=== PATIENT | male | born 1955 | race Caucasian/White ===

== ENCOUNTER 2018-06-14 12:27 | Emergency (ER) | payer MEDICAID, SELFPAY ==
[2018-06-14] VITALS (35 sets, daily range): BP systolic 95–151; BP diastolic 67–99; PULSE 90–121; RESP 9–32; TEMP 35.9; O2SAT 96–100
[2018-06-14] MEDS: Normal Saline 250 ML IV (12:52)
[2018-06-14 13:06] LABS: Abs Immature Grans 0.04 k/cumm (0.0-0.09); Absolute Basophil Count 0.07 k/cumm (0.0-0.2); Absolute Eosinophil Count 0.58 k/cumm (0.0-0.7); Absolute Lymphocyte Count 2.08 k/cumm (1.2-3.4); Absolute Monocyte Count 0.96 k/cumm (0.11-0.7); Basophils % 0.6; Eosinophils % 4.8; HCT 43.2 % (40.0-50.0); HGB 14.8 g/dL (13.5-17.5); Immature Grans % 0.3; Lymphocytes % 17.3; Mean Corp. HGB Concentration 34.3 g/dL (32.0-36.0); Mean Corpuscular Hemoglobin 31.3 pg (27.0-33.0); Mean Corpuscular Volume 91.3 fL (80-95); Mean Platelet Volume 9.2 fL (8.0-11.0); Platelet Count 250 x1000/uL (130-400); RBC 4.73 m/cumm (4.50-6.00); RBC Distribution Width 14.2 % (11.8-14.1); White Blood Cell Count 12.03 k/cumm (4.4-10.8)
[2018-06-14 13:18] LABS: Lipase 62 U/L (73-393)
--- NOTE | 2018-06-14 13:26 | DI.RAD_ITS ---
SYMPTOMS/DIAGNOSIS: PLEURITIC PAIN, SHORTNESS OF BREATH, ? PNEUMOTHORAX PORTABLE AP CHEST: Comparison 10/20/16. The heart size and pulmonary vasculature are within normal limits. The lungs are clear and well expanded. No effusions or pneumothoraces are identified. The bones are intact. IMPRESSION: No acute pulmonary process. The findings were discussed with Dr. Aranza Loyd of the emergency department on the date of the examination.
[2018-06-14] MEDS: LORazepam 2 MG/ML VIAL 1 MG IVP (13:36)
[2018-06-14] MEDS: Normal Saline 1,000 ML 1000 ML IV (13:40)
[2018-06-14 13:59] LABS: PTT Activated 22.5 sec (21.0-31.4); Prothrombin Time 10.2 sec (9.3-10.8)
[2018-06-14 14:06] LABS: ETHANOL BLOOD < 3.0 mg/dL (<3)
[2018-06-14 14:07] LABS: D-Dimer 692 ng/mlFEU (<500)
--- NOTE | 2018-06-14 14:07 | W.ED.GENAD ---
Discharge Plan Disposition Patient Disposition: [facility] Condition: Fair Discharge Details Chief Complaint: Chest Pain Primary Care Provider: Tammy Farley ED Provider: Meg Salcido Home Meds and New Rx's Prescriptions: No Action oxycodone 5 MG tablet 5 mg PO BID PRNQty: 60 RF: 0 ipratropium-albuterol 3 ML solution for nebulization 1 unit IN Q4H PRN (Reason: shortness) RF: 0 meloxicam 15 mg Tablet 15 mg PO DAILY RF: 0 bisacodyl 10 mg Suppository 1 supp DC PRNRF: 0 ranitidine HCl 150 mg Tablet 1 tab PO HS RF: 0 albuterol sulfate [ProAir HFA] 90 mcg/actuation Hfa Aerosol Inhaler 2 puff Inhalation Q4H PRNRF: 0 docusate sodium [Promolaxin] 100 mg Tablet 1 tab PO BID RF: 0 budesonide-formoterol [Symbicort] 160-4.5 mcg/actuation Hfa Aerosol Inhaler 2 puff Inhalation BID RF: 0 citalopram 20 mg Tablet 1 tab PO DAILY RF: 0 trazodone 100 mg Tablet 1 tab PO HS RF: 0 lisinopril 10 mg Tablet 1 tab PO DAILY RF: 0 omeprazole 20 mg Capsule,Delayed Release(Dr/Ec) 1 tab PO DAILY RF: 0 aspirin 81 mg Tablet,Chewable 1 tab PO DAILY RF: 0 loratadine 10 mg Tablet 1 tab PO DAILY RF: 0 oxycodone 5 mg Tablet 1 tab PO DAILY RF: 0 bupropion HCl [Wellbutrin XL] 300 mg Tablet Extended Release 24 Hr 1 tab PO DAILY RF: 0 ugsfcqcintvw-andf-cnmcq acid [Certavite-Antioxidant] 18-400 mg-mcg Tablet 1 tab PO DAILY RF: 0 buprenorphine HCl 300 mcg Film RF: 0 Discharge Data Discharge Date/Time-TO BE ENTERED AT DEPARTURE: 06/14/18 16:41 Medical Decision Making 63yo M who presents to the ED w/ a c/o left-sided chest pain and left upper quadrant abdominal pain since 1130 today. States the pain is sharp, constant and described as pleuritic. Also admits to dizziness. Denies nausea or vomiting. 1231 --EKG notes a rate of 112, sinus tachycardia, no acute ST elevation or depression, QTc 450, QRS 94. On my evaluation, patient appears diaphoretic, uncomfortable with significant tenderness to palpation in his left upper quadrant of abdomen. He has diminished breath sounds in the left chest. Stat chest x-ray ordered which was negative for pneumothorax. Differential diagnosis includes dissection, pancreatitis, alcohol withdrawal, acute abdominal process. We will give a dose of morphine, Ativan, bolus IV fluids patient admitted to alcohol use 2 days ago and does have a history of pancreatitis but his lipase is negative. Will send for stat CT chest/abdomen/pelvis. Remainder of labs pending. 1320 --patient improved after 8 mg morphine. 1520 --discussed with radiologist there is a moderate perisplenic and perihepatic hematoma/hemorrhage with an area of high density noted in the anterior aspect of the spleen concerning for active bleeding. Patient denied any history of trauma. Patient appears much more comfortable. Heart rate 95, blood pressure 119/68. His abdomen is still significantly tender and rigid with guarding. Will order 2 units of uncrossed match blood. Will call [facility] for transfer. Labs reviewed and note hemoglobin of 14. White blood cell count 12. Lipase 62. LFTs negative. Anion gap 14.4. Magnesium 1.4. INR 1. Platelets 250. D-dimer 692. CT chest negative for acute abnormality. D-dimer elevation may be age-related, and CT timing may not have been appropriate for PE, however we do have a source of patient's pain and do not likely suspect acute PE at this time. 1600 --discussed with [facility] Trauma Dr. Sargent -accepts patient for transfer to ED. They will discuss with the ED. Lloyd with plan for transfer. Will send with 1 unit PRBC. HPI General Mode of arrival: EMS. Date/Time Provider Initiated Documentation: 06/14/18 12:38. Limitations to Documentation: no limitations. Information obtained by: patient. HPI Narrative: Patient is a 63-year-old male with history of COPD, coronary artery disease who is a resident of the [facility] for the past 3 years who presents with left chest and left upper quadrant pain since 1130 this morning. States the pain is constant, sharp and worse with deep breath. Admits to shortness of breath and dizziness. Denies any fever or cough, nausea or vomiting. Admits to decreased p.o. intake today. He states he is normally ambulatory without a cane and denies any recent surgery, recent travel, leg pain or swelling. Past medical history: COPD, CAD Surgical history: Tonsillectomy, 2 cardiac stents Social history: Smokes tobacco, intermittent alcohol use, last alcohol use 2 days ago, denies drug use Medications: Albuterol, aspirin, Symbicort, Wellbutrin, Celexa, trazodone, Zantac, oxycodone, lisinopril, meloxicam, Prilosec Allergies: Carbamazepine, simvastatin Related Data Home Medications Medication Instructions Recorded Confirmed ipratropium-albuterol 1 unit IN Q4H PRN /05/0206/14/18 oxycodone 5 mg PO BID PRN #60 tab 05/10/18 06/14/18 albuterol sulfate [ProAir HFA] 2 puff INHALATION Q4H PRN 06/14/18 06/14/18 aspirin 1 tab PO DAILY 06/14/18 06/14/18 bisacodyl 1 supp DC PRN 06/14/18 budesonide-formoterol [Symbicort] 2 puff INHALATION BID 06/14/18 06/14/18 buprenorphine HCl 06/14/18 bupropion HCl [Wellbutrin XL] 1 tab PO DAILY 06/14/18 06/14/18 citalopram 1 tab PO DAILY 06/14/18 06/14/18 docusate sodium [Promolaxin] 1 tab PO BID 06/14/18 06/14/18 lisinopril 1 tab PO DAILY 06/14/18 06/14/18 loratadine 1 tab PO DAILY 06/14/18 06/14/18 meloxicam 15 mg PO DAILY 06/14/18 06/14/18 tecqyhtufqzi-xrpt-fhrkl acid 1 tab PO DAILY 06/14/18 06/14/18 [Certavite-Antioxidant] omeprazole 1 tab PO DAILY 06/14/18 06/14/18 oxycodone 1 tab PO DAILY 06/14/18 06/14/18 ranitidine HCl 1 tab PO HS 06/14/18 06/14/18 trazodone 1 tab PO HS 06/14/18 06/14/18 Allergies Allergy/AdvReac Type Severity Reaction Status Date / Time carbamazepine Allergy Intermediate Hives Unverified 10/09/16 15:26 simvastatin Allergy Unverified 10/09/16 15:26 General Stated Complaint: Chest Pain GEMA: 2 Review of Systems Review of Systems All systems reviewed & are unremarkable except as noted in HPI and below Constitutional Denies chills, Denies excessive sweating, Denies fatigue, Denies fever(s), Reports poor appetite, Denies weakness and Denies weight loss Eyes Reports system reviewed and no additional complaints, except as docu and Denies blurry vision ENT Denies vertigo, Denies dizziness, Denies otalgia, Denies nasal congestion, Denies sore throat and Denies throat swelling Cardiovascular Reports chest pain, Denies syncope, Denies rapid heart rate and Reports dyspnea Respiratory Denies cough and Reports dyspnea Gastrointestinal Reports abdominal pain, Denies diarrhea and Denies vomiting Genitourinary Denies hematuria, Denies dysuria and Denies flank pain Musculoskeletal Denies back pain and Denies joint swelling Integumentary/Breasts Denies lesions and Denies rash Neurologic Denies behavioral changes, Denies confusion, Denies vertigo, Denies dizziness, Denies syncope and Denies weakness Psychiatric Denies behavioral changes, Denies confusion and Denies depression Endocrine Denies excessive sweating and Denies fatigue Hematologic/Lymphatic Denies easy bruising and Denies lymphadenopathy Allergic/Immunologic Denies throat swelling [facility] Social History Smoking/Tobacco Use Status: Current every day Surgical History Rotator Cuff Repair (06/30/16) Exam Const General: cooperative, acute distress moderate and ill appearing Orientation: alert, awake and oriented x3 HENMT Head: normal to inspection Ears: hearing grossly normal bilaterally, external ears normal and TM's normal bilaterally General nose exam: external nose normal Face and sinus: normal facial exam Mouth: oral mucosae normal Teeth and gingiva: dentition normal Throat: posterior oropharynx normal Eyes General: appearance normal, both eyes and all related structures Eyelids: eyelids normal Pupils: PERRL EOM: EOM intact bilaterally Neck Neck: normal visual inspection Lymphatic: no lymphadenopathy noted Chest Chest: normal inspection of the chest Resp Auscultation: diminished lung sounds (Left chest), no rhonchi and no wheezes Cardio Rate: regular rate Rhythm: regular rhythm GI Inspection: normal to inspection and other (No trauma) Palpation: soft, firm, guarding, no hepatosplenomegaly, no masses and tender (Severe tenderness diffusely but worse in the left upper quadrant) Auscultation: hypoactive bowel sounds Back/Spine/Pelvis Back: no CVA tenderness Skin General skin exam: no rashes or lesions noted Neuro General: alert and awake Cognition: normal cognition Speech: speech normal Gait: normal gait Motor: muscle tone normal throughout Sensory Exam: no sensory deficits noted Extrem General: normal to inspection, full ROM, normal capillary refill and no edema Psych Appearance: grossly normal Mental Status: mental status grossly normal Speech and Movement: speech and movement normal Affect: normal affect Thought Process: normal Course Vital Signs Temperature 96.6 F L 06/14/18 12:33 Pulse 109 H 06/14/18 12:33 Respiratory Rate 18 06/14/18 12:33 Blood Pressure 151/99 H 06/14/18 12:33 Pulse Oximetry 97 06/14/18 12:33 Temperature 96.6 F L 06/14/18 12:33 Temperature Source Skin 06/14/18 12:33 Pulse 109 H 06/14/18 12:33 Respiratory Rate 18 06/14/18 12:33 Respiratory Effort Labored 06/14/18 12:54 Respiratory Depth Shallow 06/14/18 12:54 Respiratory Pattern Tachypnea 06/14/18 12:54 Blood Pressure 151/99 H 06/14/18 12:33 Blood Pressure Position Sitting 06/14/18 12:33 Pulse Oximetry 97 06/14/18 12:33 Oxygen Delivery Method Room Air 06/14/18 12:33 Oxygen Flow Rate 0 06/14/18 12:33 Pain Level 10 06/14/18 12:54 Lab/Test Results Lab/Test Results: Laboratory Tests Range/Units 06/14/18 06/14/18 06/14/18 12:45 12:45 12:45 WBC (4.4-10.8) k/cumm 12.03 H RBC (4.50-6.00) m/cumm 4.73 Hgb (13.5-17.5) g/dL 14.8 Hct (40.0-50.0) % 43.2 MCV (80-95) fL 91.3 MCH (27.0-33.0) pg 31.3 MCHC (32.0-36.0) g/dL 34.3 RDW (11.8-14.1) % 14.2 H Plt Count (130-400) x1000/uL 250 MPV (8.0-11.0) fL 9.2 Immature Gran % 0.3 Neutrophils % 69.0 Lymphocytes % 17.3 Monocytes % 8.0 Eosinophils % 4.8 Basophils % 0.6 Absolute Neutrophils (1.2-6.7) k/cumm 8.30 H Absolute Lymphocytes (1.2-3.4) k/cumm 2.08 Absolute Monocytes (0.11-0.7) k/cumm 0.96 H Absolute Eosinophils (0.0-0.7) k/cumm 0.58 Absolute Basophils (0.0-0.2) k/cumm 0.07 PT Cancelled INR Cancelled APTT Cancelled D-Dimer Cancelled Lipase (73-393) U/L 62 L Ethyl Alcohol (<3) mg/dL Range/Units 06/14/18 06/14/18 13:29 13:29 WBC (4.4-10.8) k/cumm RBC (4.50-6.00) m/cumm Hgb (13.5-17.5) g/dL Hct (40.0-50.0) % MCV (80-95) fL MCH (27.0-33.0) pg MCHC (32.0-36.0) g/dL RDW (11.8-14.1) % Plt Count (130-400) x1000/uL MPV (8.0-11.0) fL Immature Gran % Neutrophils % Lymphocytes % Monocytes % Eosinophils % Basophils % Absolute Neutrophils (1.2-6.7) k/cumm Absolute Lymphocytes (1.2-3.4) k/cumm Absolute Monocytes (0.11-0.7) k/cumm Absolute Eosinophils (0.0-0.7) k/cumm Absolute Basophils (0.0-0.2) k/cumm PT 10.2 INR 1.0 APTT 22.5 D-Dimer Lipase (73-393) U/L Ethyl Alcohol (<3) mg/dL < 3.0
--- NOTE | 2018-06-14 14:10 | ED.GENADUL_ITS ---
Discharge Plan Disposition Patient Disposition: [facility] Condition: Fair Discharge Details Chief Complaint: Chest Pain Primary Care Provider: Tammy Farley ED Provider: Meg Salcido Home Meds and New Rx's Prescriptions: No Action oxycodone 5 MG tablet 5 mg PO BID PRNQty: 60 RF: 0 ipratropium-albuterol 3 ML solution for nebulization 1 unit IN Q4H PRN (Reason: shortness) RF: 0 meloxicam 15 mg Tablet 15 mg PO DAILY RF: 0 bisacodyl 10 mg Suppository 1 supp CA PRNRF: 0 ranitidine HCl 150 mg Tablet 1 tab PO HS RF: 0 albuterol sulfate [ProAir HFA] 90 mcg/actuation Hfa Aerosol Inhaler 2 puff Inhalation Q4H PRNRF: 0 docusate sodium [Promolaxin] 100 mg Tablet 1 tab PO BID RF: 0 budesonide-formoterol [Symbicort] 160-4.5 mcg/actuation Hfa Aerosol Inhaler 2 puff Inhalation BID RF: 0 citalopram 20 mg Tablet 1 tab PO DAILY RF: 0 trazodone 100 mg Tablet 1 tab PO HS RF: 0 lisinopril 10 mg Tablet 1 tab PO DAILY RF: 0 omeprazole 20 mg Capsule,Delayed Release(Dr/Ec) 1 tab PO DAILY RF: 0 aspirin 81 mg Tablet,Chewable 1 tab PO DAILY RF: 0 loratadine 10 mg Tablet 1 tab PO DAILY RF: 0 oxycodone 5 mg Tablet 1 tab PO DAILY RF: 0 bupropion HCl [Wellbutrin XL] 300 mg Tablet Extended Release 24 Hr 1 tab PO DAILY RF: 0 znxblqkjkfdo-olae-yciyz acid [Certavite-Antioxidant] 18-400 mg-mcg Tablet 1 tab PO DAILY RF: 0 buprenorphine HCl 300 mcg Film RF: 0 Discharge Data Discharge Date/Time-TO BE ENTERED AT DEPARTURE: 06/14/18 16:41 Medical Decision Making 63yo M who presents to the ED w/ a c/o left-sided chest pain and left upper quadrant abdominal pain since 1130 today. States the pain is sharp, constant and described as pleuritic. Also admits to dizziness. Denies nausea or vomiting. 1231 --EKG notes a rate of 112, sinus tachycardia, no acute ST elevation or depression, QTc 450, QRS 94. On my evaluation, patient appears diaphoretic, uncomfortable with significant tenderness to palpation in his left upper quadrant of abdomen. He has diminished breath sounds in the left chest. Stat chest x-ray ordered which was negative for pneumothorax. Differential diagnosis includes dissection, pancreatitis, alcohol withdrawal, acute abdominal process. We will give a dose of morphine, Ativan, bolus IV fluids patient admitted to alcohol use 2 days ago and does have a history of pancreatitis but his lipase is negative. Will send for stat CT chest/abdomen/pelvis. Remainder of labs pending. 1320 --patient improved after 8 mg morphine. 1520 --discussed with radiologist there is a moderate perisplenic and perihepatic hematoma/hemorrhage with an area of high density noted in the anterior aspect of the spleen concerning for active bleeding. Patient denied any history of trauma. Patient appears much more comfortable. Heart rate 95, blood pressure 119/68. His abdomen is still significantly tender and rigid with guarding. Will order 2 units of uncrossed match blood. Will call [facility] for transfer. Labs reviewed and note hemoglobin of 14. White blood cell count 12. Lipase 62. LFTs negative. Anion gap 14.4. Magnesium 1.4. INR 1. Platelets 250. D- dimer 692. CT chest negative for acute abnormality. D-dimer elevation may be age-related, and CT timing may not have been appropriate for PE, however we do have a source of patient's pain and do not likely suspect acute PE at this time. 1600 --discussed with [facility] Trauma Dr. Sargent -accepts patient for transfer to ED. They will discuss with the ED. Lloyd with plan for transfer. Will send with 1 unit PRBC. HPI General Mode of arrival: EMS . Date/Time Provider Initiated Documentation: 06/14/18 12:38 . Limitations to Documentation: no limitations . Information obtained by: patient . HPI Narrative: Patient is a 63-year-old male with history of COPD, coronary artery disease who is a resident of the [facility] for the past 3 years who presents with left chest and left upper quadrant pain since 1130 this morning. States the pain is constant, sharp and worse with deep breath. Admits to shortness of breath and dizziness. Denies any fever or cough, nausea or vomiting. Admits to decreased p.o. intake today. He states he is normally ambulatory without a cane and denies any recent surgery, recent travel, leg pain or swelling. Past medical history: COPD, CAD Surgical history: Tonsillectomy, 2 cardiac stents Social history: Smokes tobacco, intermittent alcohol use, last alcohol use 2 days ago, denies drug use Medications: Albuterol, aspirin, Symbicort, Wellbutrin, Celexa, trazodone, Zantac, oxycodone, lisinopril, meloxicam, Prilosec Allergies: Carbamazepine, simvastatin Related Data Home Medications Medication Instructions Recorded Confirmed ipratropium-albuterol 1 unit IN Q4H PRN /05/0206/14/18 oxycodone 5 mg PO BID PRN #60 tab 05/10/18 06/14/18 albuterol sulfate [ProAir HFA] 2 puff INHALATION Q4H PRN 06/14/18 06/14/18 aspirin 1 tab PO DAILY 06/14/18 06/14/18 bisacodyl 1 supp CA PRN 06/14/18 budesonide-formoterol [Symbicort] 2 puff INHALATION BID 06/14/18 06/14/18 buprenorphine HCl 06/14/18 bupropion HCl [Wellbutrin XL] 1 tab PO DAILY 06/14/18 06/14/18 citalopram 1 tab PO DAILY 06/14/18 06/14/18 docusate sodium [Promolaxin] 1 tab PO BID 06/14/18 06/14/18 lisinopril 1 tab PO DAILY 06/14/18 06/14/18 loratadine 1 tab PO DAILY 06/14/18 06/14/18 meloxicam 15 mg PO DAILY 06/14/18 06/14/18 eykxwwrsgivm-rsvj-webfd acid 1 tab PO DAILY 06/14/18 06/14/18 [Certavite-Antioxidant] omeprazole 1 tab PO DAILY 06/14/18 06/14/18 oxycodone 1 tab PO DAILY 06/14/18 06/14/18 ranitidine HCl 1 tab PO HS 06/14/18 06/14/18 trazodone 1 tab PO HS 06/14/18 06/14/18 Allergies Allergy/AdvReac Type Severity Reaction Status Date / Time carbamazepine Allergy Intermediate Hives Unverified 10/09/16 15:26 simvastatin Allergy Unverified 10/09/16 15:26 General Stated Complaint: Chest Pain GEMA: 2 Review of Systems Review of Systems All systems reviewed & are unremarkable except as noted in HPI and below Constitutional Denies chills, Denies excessive sweating, Denies fatigue, Denies fever(s), Reports poor appetite, Denies weakness and Denies weight loss Eyes Reports system reviewed and no additional complaints, except as docu and Denies blurry vision ENT Denies vertigo, Denies dizziness, Denies otalgia, Denies nasal congestion, Denies sore throat and Denies throat swelling Cardiovascular Reports chest pain, Denies syncope, Denies rapid heart rate and Reports dyspnea Respiratory Denies cough and Reports dyspnea Gastrointestinal Reports abdominal pain, Denies diarrhea and Denies vomiting Genitourinary Denies hematuria, Denies dysuria and Denies flank pain Musculoskeletal Denies back pain and Denies joint swelling Integumentary/Breasts Denies lesions and Denies rash Neurologic Denies behavioral changes, Denies confusion, Denies vertigo, Denies dizziness, Denies syncope and Denies weakness Psychiatric Denies behavioral changes, Denies confusion and Denies depression Endocrine Denies excessive sweating and Denies fatigue Hematologic/Lymphatic Denies easy bruising and Denies lymphadenopathy Allergic/Immunologic Denies throat swelling [facility] Social History Smoking/Tobacco Use Status: Current every day Surgical History Rotator Cuff Repair (06/30/16) Exam Const General: cooperative, acute distress moderate and ill appearing Orientation: alert, awake and oriented x3 HENMT Head: normal to inspection Ears: hearing grossly normal bilaterally, external ears normal and TM's normal bilaterally General nose exam: external nose normal Face and sinus: normal facial exam Mouth: oral mucosae normal Teeth and gingiva: dentition normal Throat: posterior oropharynx normal Eyes General: appearance normal, both eyes and all related structures Eyelids: eyelids normal Pupils: PERRL EOM: EOM intact bilaterally Neck Neck: normal visual inspection Lymphatic: no lymphadenopathy noted Chest Chest: normal inspection of the chest Resp Auscultation: diminished lung sounds (Left chest), no rhonchi and no wheezes Cardio Rate: regular rate Rhythm: regular rhythm GI Inspection: normal to inspection and other (No trauma) Palpation: soft, firm, guarding, no hepatosplenomegaly, no masses and tender ( Severe tenderness diffusely but worse in the left upper quadrant) Auscultation: hypoactive bowel sounds Back/Spine/Pelvis Back: no CVA tenderness Skin General skin exam: no rashes or lesions noted Neuro General: alert and awake Cognition: normal cognition Speech: speech normal Gait: normal gait Motor: muscle tone normal throughout Sensory Exam: no sensory deficits noted Extrem General: normal to inspection, full ROM, normal capillary refill and no edema Psych Appearance: grossly normal Mental Status: mental status grossly normal Speech and Movement: speech and movement normal Affect: normal affect Thought Process: normal Course Vital Signs Temperature 96.6 F L 06/14/18 12:33 Pulse 109 H 06/14/18 12:33 Respiratory Rate 18 06/14/18 12:33 Blood Pressure 151/99 H 06/14/18 12:33 Pulse Oximetry 97 06/14/18 12:33 Temperature 96.6 F L 06/14/18 12:33 Temperature Source Skin 06/14/18 12:33 Pulse 109 H 06/14/18 12:33 Respiratory Rate 18 06/14/18 12:33 Respiratory Effort Labored 06/14/18 12:54 Respiratory Depth Shallow 06/14/18 12:54 Respiratory Pattern Tachypnea 06/14/18 12:54 Blood Pressure 151/99 H 06/14/18 12:33 Blood Pressure Position Sitting 06/14/18 12:33 Pulse Oximetry 97 06/14/18 12:33 Oxygen Delivery Method Room Air 06/14/18 12:33 Oxygen Flow Rate 0 06/14/18 12:33 Pain Level 10 06/14/18 12:54 Lab/Test Results Lab/Test Results: Laboratory Tests Range/Units 06/14/18 06/14/18 06/14/18 12:45 12:45 12:45 WBC (4.4-10.8) k/cumm 12.03 H RBC (4.50-6.00) m/cumm 4.73 Hgb (13.5-17.5) g/dL 14.8 Hct (40.0-50.0) % 43.2 MCV (80-95) fL 91.3 MCH (27.0-33.0) pg 31.3 MCHC (32.0-36.0) g/dL 34.3 RDW (11.8-14.1) % 14.2 H Plt Count (130-400) x1000/uL 250 MPV (8.0-11.0) fL 9.2 Immature Gran % 0.3 Neutrophils % 69.0 Lymphocytes % 17.3 Monocytes % 8.0 Eosinophils % 4.8 Basophils % 0.6 Absolute Neutrophils (1.2-6.7) k/cumm 8.30 H Absolute Lymphocytes (1.2-3.4) k/cumm 2.08 Absolute Monocytes (0.11-0.7) k/cumm 0.96 H Absolute Eosinophils (0.0-0.7) k/cumm 0.58 Absolute Basophils (0.0-0.2) k/cumm 0.07 PT Cancelled INR Cancelled APTT Cancelled D-Dimer Cancelled Lipase (73-393) U/L 62 L Ethyl Alcohol (<3) mg/dL Range/Units 06/14/18 06/14/18 13:29 13:29 WBC (4.4-10.8) k/cumm RBC (4.50-6.00) m/cumm Hgb (13.5-17.5) g/dL Hct (40.0-50.0) % MCV (80-95) fL MCH (27.0-33.0) pg MCHC (32.0-36.0) g/dL RDW (11.8-14.1) % Plt Count (130-400) x1000/uL MPV (8.0-11.0) fL Immature Gran % Neutrophils % Lymphocytes % Monocytes % Eosinophils % Basophils % Absolute Neutrophils (1.2-6.7) k/cumm Absolute Lymphocytes (1.2-3.4) k/cumm Absolute Monocytes (0.11-0.7) k/cumm Absolute Eosinophils (0.0-0.7) k/cumm Absolute Basophils (0.0-0.2) k/cumm PT 10.2 INR 1.0 APTT 22.5 D-Dimer Lipase (73-393) U/L Ethyl Alcohol (<3) mg/dL < 3.0
[2018-06-14] MEDS: MORPHine 10 MG/ML VIAL 4 MG IVP ×2 (14:15→16:22)
[2018-06-14 14:39] LABS: ALT 25 U/L (12-78); AST 19 U/L (15-37); Albumin 3.6 g/dL (3.4-5.0); Alkaline Phosphatase 57 U/L (46-116); Anion Gap 14.4 mmol/L (3-11); BUN 18 mg/dL (7-18); Bilirubin, Direct 0.12 mg/dL (0.00-0.20); Bilirubin, Total 0.6 mg/dL (0.2-1.0); CO2 22.6 mmol/L (21.0-32.0); CREATININE 0.96 mg/dL (0.70-1.30); Chloride 102 mmol/L (98-107); Glucose 154 mg/dL (70-100); Magnesium 1.4 mg/dL (1.8-2.4); Potassium 3.8 mmol/L (3.5-5.1); Sodium 139 mmol/L (136-145); Total Protein 6.6 g/dL (6.4-8.2)
[2018-06-14 14:40] LABS: Troponin I < 0.02 ng/mL (0.00-0.06)
[2018-06-14] MEDS: Omnipaque 350 MG/ML 100 ML BTL IJ (15:08)
--- NOTE | 2018-06-14 15:09 | DI.CT_ITS ---
SYMPTOMS/DIAGNOSIS: LEFT PLEURITIC PAIN, LEFT UPPER QUADRANT ABDOMINAL PAIN CT SCAN OF THE CHEST, ABDOMEN AND PELVIS: Routine examination was performed. Comparison is 03/24/16. CT SCAN OF THE ABDOMEN AND PELVIS: There are areas of decreased attenuation in the posterior superior spleen and in the anterior spleen suspicious for lacerations. There is a moderate-sized perisplenic hematoma. The hematoma appears to be of some differing age. There is also a question of a blush of increased density in the anterior splenic lesion, suggesting some active bleeding. There is a moderate amount of perihepatic hemorrhage and a moderate amount of hemorrhage in the pelvis. The liver, pancreas, gallbladder, bile ducts, adrenal glands, kidneys, ureters and bladder are all unremarkable. The reproductive organs are grossly unremarkable. The aorta is intact. There is atherosclerosis present, but no aneurysmal dilatation is seen. No significant abdominal or pelvic adenopathy or pneumoperitoneum is present. The bowel shows no evidence of obstruction or inflammation. No findings to suggest an acute appendicitis are present. No fractures appreciated. Degenerative changes are seen in the spine. IMPRESSION: 1. Multiple areas of decreased attenuation seen within the liver suspicious for lacerations, mass or infection is considered less likely. 2. Blush of slight increased attenuation in the anterior aspect of the spleen (series 5 image 65). The findings raise the question of active bleeding. 3. Moderate-sized perisplenic hematoma, moderate perihepatic hematoma and moderately large amount of hemorrhage in the pelvis. 4. No acute fractures identified. CT SCAN OF THE CHEST: There is atherosclerosis of the thoracic aorta, but no aneurysmal dilatation is seen. The heart size is within normal limits. No significant pericardial effusion is seen. Coronary artery calcifications are present. No significant mediastinal or hilar adenopathy is present. There are moderately severe central lobular emphysematous changes in the lungs. Mild dependent atelectatic changes are seen in the right lung base. No focal consolidating infiltrate is seen. No effusion or pneumothorax is identified. The tracheobronchial tree is unremarkable. No fracture is appreciated. Degenerative changes are present in the spine. IMPRESSION: No acute thoracic abnormality. These findings were discussed with Meg Salcido of the Emergency Department on the date of the examination.
--- NOTE | 2018-06-14 16:34 | NUR.NOTE ---
preparing pt for transfer to [facility]. 1st unit prbc started prior to transport via ems. vs stable temp 36.6, b/p 125/71, hr 94, rr 17, o2 sat 98% 2l/nc. pt medicated with 4mg ivp morphine for pain prior to transport. pt remains awake and alert. vs stable. awaiting ems. prbc unit #[id number] exp 07/11/2018:
== END 2018-06-14 16:41 | disposition short-term general hospital (02) ==
PROVIDERS: Emergency Provider Physician Assistant; PCP Family Medicine
DX: D73.5 Infarction of spleen; K76.89 Other specified diseases of liver; R10.0 Acute abdomen; J44.9 Chronic obstructive pulmonary disease, unspecified; F17.210 Nicotine dependence, cigarettes, uncomplicated
CPT/HCPCS: 36415; 74177; 80053; 80076; 83690; 86850; 86900; 86901; 86920; 93005; 96361; 96374; 96375; 96376; 99285; 71045; 71260; 80320; 83735; 84484; 85025; 85379; 85610; 85730; 93010; J2060; J2270; J3490; P9016

== ENCOUNTER 2018-06-20 13:28 | Outpatient (REF) | payer MEDICAID, SELFPAY ==
[2018-06-20 13:54] LABS: Abs Immature Grans 0.06 k/cumm (0.0-0.09); Absolute Eosinophil Count 0.39 k/cumm (0.0-0.7); Absolute Monocyte Count 1.82 k/cumm (0.11-0.7); Basophils % 0.4; Eosinophils % 2.9; HCT 27.6 % (40.0-50.0); Immature Grans % 0.4; Lymphocytes % 7.9; Mean Corp. HGB Concentration 32.6 g/dL (32.0-36.0); Mean Corpuscular Volume 95.2 fL (80-95); Mean Platelet Volume 10.1 fL (8.0-11.0); Monocytes % 13.6; Neutrophils % 74.8; Platelet Count 355 x1000/uL (130-400); RBC Distribution Width 13.6 % (11.8-14.1); White Blood Cell Count 13.37 k/cumm (4.4-10.8)
[2018-06-20 14:21] LABS: Absolute Basophil Count 0.05 k/cumm (0.0-0.2); Absolute Lymphocyte Count 1.06 k/cumm (1.2-3.4)
[2018-06-20 14:25] LABS: Diff Comment Manual Differential; Polychromasia Present
== END 2018-06-20 13:48 ==
LOC: LBN 13:28
PROVIDERS: PCP Family Medicine; Visit Provider Family Medicine
DX: R53.83 Other fatigue (principal)
CPT/HCPCS: 85025

== ENCOUNTER 2018-06-24 11:36 | Outpatient (REF) | payer MEDICAID, SELFPAY ==
[2018-06-24 12:40] LABS: Abs Immature Grans 0.79 k/cumm (0.0-0.09); HCT 29.9 % (40.0-50.0); HGB 9.6 g/dL (13.5-17.5); Mean Corp. HGB Concentration 32.1 g/dL (32.0-36.0); Mean Corpuscular Hemoglobin 30.7 pg (27.0-33.0); Mean Corpuscular Volume 95.5 fL (80-95); Mean Platelet Volume 9.5 fL (8.0-11.0); Platelet Count 516 x1000/uL (130-400); RBC 3.13 m/cumm (4.50-6.00); RBC Distribution Width 14.8 % (11.8-14.1); White Blood Cell Count 16.39 k/cumm (4.4-10.8)
[2018-06-24 13:32] LABS: Absolute Lymphocyte Count 1.31 k/cumm (1.2-3.4)
[2018-06-24 13:33] LABS: Absolute Eosinophil Count 0.82 k/cumm (0.0-0.7); Anisocytosis 1+; Diff Comment Manual Differential; Polychromasia Present
== END 2018-06-24 11:56 ==
LOC: LBN 11:36
PROVIDERS: PCP Family Medicine; Visit Provider Family Medicine
DX: R10.9 Unspecified abdominal pain (principal); K92.2 Gastrointestinal hemorrhage, unspecified
CPT/HCPCS: 85025

== ENCOUNTER 2018-07-15 01:17 | Outpatient (CLI) | payer MEDICAID, SELFPAY ==
--- NOTE | 2018-07-15 09:59 | DI.RAD_ITS ---
SYMPTOM/DIAGNOSIS: SOB, CHEST PAIN PA AND LATERAL CHEST: Comparison is made with 06/14/18. Heart size and pulmonary vasculature are stable and within normal limits. The lungs are hyperinflated consistent with underlying COPD. No infiltrates, effusions or pneumothoraces are identified. Old compression deformities are seen in the upper thoracic spine. Degenerative changes are presnet throughout the spine. IMPRESSION: COPD. No acute pulmonary process.
== END 2018-07-15 01:37 ==
PROVIDERS: PCP Family Medicine; Visit Provider Emergency Medicine
DX: R06.02 Shortness of breath (principal); R07.9 Chest pain, unspecified; J44.9 Chronic obstructive pulmonary disease, unspecified
CPT/HCPCS: 71046

== ENCOUNTER 2018-09-18 11:09 | Emergency (ER) | payer MEDICAID, SELFPAY ==
[2018-09-18 11:14] VITALS: BP 171/81; PULSE 95; RESP 16; TEMP 37; O2SAT 97
--- NOTE | 2018-09-18 11:24 | DI.RAD_ITS ---
SYMPTOMS/DIAGNOSIS: FALL, TENDERNESS LUMBAR SPINE: No fracture is identified. The alignment appears normal. The disc spaces are well maintained. The aorta is calcified and normal in diameter. IMPRESSION: Negative lumbar spine. PELVIS: Three views were performed. There is no evidence of fracture or dislocation. There is calcification in the soft tissues posterior to the right hip. There is mild bilateral acetabular spurring. The SI joints and pubic symphysis appear intact. IMPRESSION: No acute abnormality.
--- NOTE | 2018-09-18 11:26 | W.ED.GENAD ---
Discharge Plan Disposition Patient Disposition: HOME Condition: Improving Discharge Details Chief Complaint: Trauma Clinical Impression: Contusion of coccyx Primary Care Provider: Ness Diaz ED Provider: Fredo Moffett Home Meds and New Rx's Prescriptions: Continued oxycodone 5 MG tablet 5 mg PO BID PRNQty: 60 RF: 0 nicotine [Nicoderm CQ] 14 mg/24 hr patch 24 hour 1 patch TD DAILY Qty: 14 RF: 0 nicotine [Nicoderm CQ] 7 mg/24 hr patch 24 hour 1 patch TD Q24H Qty: 14 RF: 0 aspirin 81 mg tablet,chewable 1 tab PO DAILY Qty: 90 RF: 0 bupropion HCl [Wellbutrin XL] 300 mg tablet extended release 24 hr 300 mg PO DAILY Qty: 90 RF: 0 Certavite-Antioxidant 18-400 mg-mcg tablet 1 tab PO DAILY Qty: 90 RF: 0 docusate sodium [Promolaxin] 100 mg tablet 100 mg PO BID Qty: 180 RF: 0 folic acid 1 mg tablet 1 mg PO DAILY Qty: 90 RF: 0 lisinopril 10 mg tablet 10 mg PO DAILY Qty: 90 RF: 0 loratadine 10 mg tablet 10 mg PO DAILY Qty: 90 RF: 0 citalopram 20 mg tablet 20 mg PO DAILY Qty: 90 RF: 0 Symbicort 160-4.5 mcg/actuation HFA aerosol inhaler 2 puff Inhalation BID Qty: 10.2 RF: 0 omeprazole 20 mg capsule,delayed release(DR/EC) 20 mg PO DAILY Qty: 90 RF: 0 ranitidine HCl 150 mg tablet 150 mg PO HS Qty: 90 RF: 0 trazodone 100 mg tablet 100 mg PO HS Qty: 90 RF: 0 Spiriva with HandiHaler 18 mcg capsule, w/inhalation device 1 cap IH DAILY Qty: 90 RF: 0 Spiriva Respimat 2.5 mcg/actuation mist 2 puff IH DAILY Qty: 4 RF: 1 oxycodone 5 mg tablet 5 mg PO DAILY MDD 1 Qty: 5 RF: 0 meloxicam 15 mg Tablet 15 mg PO DAILY RF: 0 bisacodyl 10 mg Suppository 1 supp CA PRNRF: 0 ProAir HFA 90 mcg/actuation Hfa Aerosol Inhaler 2 puff Inhalation Q4H PRNRF: 0 buprenorphine HCl 300 mcg Film RF: 0 Discharge Instructions Instructions: Contusion in Adults (ED) Additional Instructions: We will remove the Lidoderm patch in 12 hours. May use an inflatable donut to relieve pressure on your tailbone. Ice to areas that continue to ache. Continue your regular medications. Return for worsening or any acute conerns. Medical Decision Making 63-year-old male slipped and fell down the stairs while carrying laundry 3 days ago. Since that time he said dull, achy, focal lumbar pain somewhat worse with ambulation. Differential diagnosis would include contusion, bony spine injury, pelvic fracture. X-rays do not reveal bony injury. We will Place Lidoderm patch. Patient will continue conservative management at home. He stable for discharge at this time HPI General Mode of arrival: ambulatory. Date/Time Provider Initiated Documentation: 09/18/18 11:11. Limitations to Documentation: no limitations. Information obtained by: patient. History of Present Illness 63 year old M presents to the emergency department with the chief complaint of Fall 3 days ago, low back, HPI Narrative: Fell down the stairs while carrying laundry 3 days ago. Denies loss of conscious at that time. Denies head/neck/chest/abdomen discomfort. He complains of dull, achy, lumbar pain that is somewhat worse with standing. No numbness or tingling. No motor weakness. No changes to bladder habits Related Data Home Medications Medication Instructions Recorded Confirmed oxycodone 5 mg PO BID PRN #60 tab 05/10/18 09/18/18 ProAir HFA 2 puff INHALATION Q4H PRN 06/14/18 09/18/18 bisacodyl 1 supp CA PRN 06/14/18 buprenorphine HCl 06/14/18 meloxicam 15 mg PO DAILY 06/14/18 09/18/18 nicotine 14 mg/24 hr daily 1 patch TD DAILY #14 each 08/14/18 09/18/18 transdermal patch nicotine 7 mg/24 hr daily 1 patch TD Q24H #14 each 08/14/18 09/18/18 transdermal patch aspirin 81 mg chewable tablet 1 tab PO DAILY #90 tab 08/19/18 09/18/18 budesonide-formoterol HFA 160 2 puff INHALATION BID #10.2 gm 08/19/18 09/18/18 mcg-4.5 mcg/actuation aerosol inhaler bupropion HCl XL 300 mg 24 hr 300 mg PO DAILY #90 tab 08/19/18 09/18/18 tablet, extended release citalopram 20 mg tablet 20 mg PO DAILY #90 tab 08/19/18 09/18/18 docusate sodium 100 mg tablet 100 mg PO BID #180 tab 08/19/18 09/18/18 folic acid 1 mg tablet 1 mg PO DAILY #90 tab 08/19/18 09/18/18 lisinopril 10 mg tablet 10 mg PO DAILY #90 tab 08/19/18 09/18/18 loratadine 10 mg tablet 10 mg PO DAILY #90 tab 08/19/18 09/18/18 multivitamin-ferrous 1 tab PO DAILY #90 tab 08/19/18 09/18/18 fumarate-folic acid 18 mg-400 mcg tablet omeprazole 20 mg capsule,delayed 20 mg PO DAILY #90 cap 08/19/18 09/18/18 release ranitidine 150 mg tablet 150 mg PO HS #90 tab 08/19/18 09/18/18 trazodone 100 mg tablet 100 mg PO HS #90 tab 08/19/18 09/18/18 tiotropium bromide 18 mcg capsule 1 cap IH DAILY #90 inh 08/20/18 09/18/18 with inhalation device tiotropium bromide 2.5 2 puff IH DAILY #4 gm 08/20/18 09/18/18 mcg/actuation mist for inhalation oxycodone 5 mg tablet 5 mg PO DAILY #5 tab MDD 1 09/02/18 09/18/18 Previous Rx's Medication Instructions Recorded nicotine 14 mg/24 hr daily 1 patch TD DAILY #14 each 08/14/18 transdermal patch nicotine 7 mg/24 hr daily 1 patch TD Q24H #14 each 08/14/18 transdermal patch aspirin 81 mg chewable tablet 1 tab PO DAILY #90 tab 08/19/18 budesonide-formoterol HFA 160 2 puff INHALATION BID #10.2 gm 08/19/18 mcg-4.5 mcg/actuation aerosol inhaler bupropion HCl XL 300 mg 24 hr 300 mg PO DAILY #90 tab 08/19/18 tablet, extended release citalopram 20 mg tablet 20 mg PO DAILY #90 tab 12/03/18 docusate sodium 100 mg tablet 100 mg PO BID #180 tab 08/19/18 folic acid 1 mg tablet 1 mg PO DAILY #90 tab 08/19/18 lisinopril 10 mg tablet 10 mg PO DAILY #90 tab 08/19/18 loratadine 10 mg tablet 10 mg PO DAILY #90 tab 08/19/18 multivitamin-ferrous 1 tab PO DAILY #90 tab 08/19/18 fumarate-folic acid 18 mg-400 mcg tablet omeprazole 20 mg capsule,delayed 20 mg PO DAILY #90 cap 08/19/18 release ranitidine 150 mg tablet 150 mg PO HS #90 tab 08/19/18 trazodone 100 mg tablet 100 mg PO HS #90 tab 08/19/18 tiotropium bromide 18 mcg capsule 1 cap IH DAILY #90 inh 08/20/18 with inhalation device tiotropium bromide 2.5 2 puff IH DAILY #4 gm 08/20/18 mcg/actuation mist for inhalation oxycodone 5 mg tablet 5 mg PO DAILY #5 tab MDD 1 09/02/18 Allergies Allergy/AdvReac Type Severity Reaction Status Date / Time carbamazepine Allergy Intermediate Hives Unverified 09/18/18 11:18 simvastatin Allergy Unverified 09/18/18 11:18 General Stated Complaint: Trauma GEMA: 3 Review of Systems Review of Systems 6 systems reviewed and otherwise - PENDING SALE TO [facility] Surgical History Rotator Cuff Repair (06/30/16) Social History Smoking/Tobacco Use Status: Current every day Exam Narrative Exam Narrative: GEN: awake, alert, oriented 3. Pleasant, well groomed, interactive. HEAD: Normocephalic, atraumatic ENT: Mucous membranes moist, oropharynx unremarkable, External ear exam unremarkable EYES: PERRL, EOMI NECK: Full ROM, no YOKO, no menigismus CHEST/RESP: Nontender, clear to auscultation bilateral, no wheeze/rhonchi/rales CARDIOVASCULAR: RRR, no murmur, rub kirsten. 2+ Rad pulse bilateral ABDOMEN: Soft, nontender, no mass. +Bowel sounds Back: Midline lumbar tenderness and sacral tenderness to palpation. EXT: Full ROM, no edema, no rash Neuro: Grossly normal neurologic exam, conversant, interactive. Psych: Speech fluent, thoughts congruent, affect normal Course Vital Signs Temperature 37 C 09/18/18 11:14 Pulse 95 H 09/18/18 11:14 Respiratory Rate 16 09/18/18 11:14 Blood Pressure 171/81 H 09/18/18 11:14 Pulse Oximetry 97 09/18/18 11:14 Temperature 37 C 09/18/18 11:14 Pulse 95 H 09/18/18 11:14 Respiratory Rate 16 09/18/18 11:14 Respiratory Effort 09/18/18 11:14 Blood Pressure 171/81 H 09/18/18 11:14 Blood Pressure Position Sitting 09/18/18 11:14 Pulse Oximetry 97 09/18/18 11:14 Oxygen Delivery Method Room Air 09/18/18 11:14 Oxygen Flow Rate 0 09/18/18 11:14 Pain Level 9 09/18/18 11:14
--- NOTE | 2018-09-18 11:30 | ED.GENADUL_ITS ---
Discharge Plan Disposition Patient Disposition: HOME Condition: Improving Discharge Details Chief Complaint: Trauma Clinical Impression: Contusion of coccyx Primary Care Provider: Ness Diaz ED Provider: Fredo Moffett Home Meds and New Rx's Prescriptions: Continued oxycodone 5 MG tablet 5 mg PO BID PRNQty: 60 RF: 0 nicotine [Nicoderm CQ] 14 mg/24 hr patch 24 hour 1 patch TD DAILY Qty: 14 RF: 0 nicotine [Nicoderm CQ] 7 mg/24 hr patch 24 hour 1 patch TD Q24H Qty: 14 RF: 0 aspirin 81 mg tablet,chewable 1 tab PO DAILY Qty: 90 RF: 0 bupropion HCl [Wellbutrin XL] 300 mg tablet extended release 24 hr 300 mg PO DAILY Qty: 90 RF: 0 Certavite-Antioxidant 18-400 mg-mcg tablet 1 tab PO DAILY Qty: 90 RF: 0 docusate sodium [Promolaxin] 100 mg tablet 100 mg PO BID Qty: 180 RF: 0 folic acid 1 mg tablet 1 mg PO DAILY Qty: 90 RF: 0 lisinopril 10 mg tablet 10 mg PO DAILY Qty: 90 RF: 0 loratadine 10 mg tablet 10 mg PO DAILY Qty: 90 RF: 0 citalopram 20 mg tablet 20 mg PO DAILY Qty: 90 RF: 0 Symbicort 160-4.5 mcg/actuation HFA aerosol inhaler 2 puff Inhalation BID Qty: 10.2 RF: 0 omeprazole 20 mg capsule,delayed release(DR/EC) 20 mg PO DAILY Qty: 90 RF: 0 ranitidine HCl 150 mg tablet 150 mg PO HS Qty: 90 RF: 0 trazodone 100 mg tablet 100 mg PO HS Qty: 90 RF: 0 Spiriva with HandiHaler 18 mcg capsule, w/inhalation device 1 cap IH DAILY Qty: 90 RF: 0 Spiriva Respimat 2.5 mcg/actuation mist 2 puff IH DAILY Qty: 4 RF: 1 oxycodone 5 mg tablet 5 mg PO DAILY MDD 1 Qty: 5 RF: 0 meloxicam 15 mg Tablet 15 mg PO DAILY RF: 0 bisacodyl 10 mg Suppository 1 supp IA PRNRF: 0 ProAir HFA 90 mcg/actuation Hfa Aerosol Inhaler 2 puff Inhalation Q4H PRNRF: 0 buprenorphine HCl 300 mcg Film RF: 0 Discharge Instructions Instructions: Contusion in Adults (ED) Additional Instructions: We will remove the Lidoderm patch in 12 hours. May use an inflatable donut to relieve pressure on your tailbone. Ice to areas that continue to ache. Continue your regular medications. Return for worsening or any acute conerns. Medical Decision Making 63-year-old male slipped and fell down the stairs while carrying laundry 3 days ago. Since that time he said dull, achy, focal lumbar pain somewhat worse with ambulation. Differential diagnosis would include contusion, bony spine injury, pelvic fracture. X-rays do not reveal bony injury. We will Place Lidoderm patch. Patient will continue conservative management at home. He stable for discharge at this time HPI General Mode of arrival: ambulatory . Date/Time Provider Initiated Documentation: 09/18/18 11:11 . Limitations to Documentation: no limitations . Information obtained by: patient . History of Present Illness 63 year old M presents to the emergency department with the chief complaint of Fall 3 days ago, low back, HPI Narrative: Fell down the stairs while carrying laundry 3 days ago. Denies loss of conscious at that time. Denies head/neck/chest/abdomen discomfort. He complains of dull, achy, lumbar pain that is somewhat worse with standing. No numbness or tingling. No motor weakness. No changes to bladder habits Related Data Home Medications Medication Instructions Recorded Confirmed oxycodone 5 mg PO BID PRN #60 tab 05/10/18 09/18/18 ProAir HFA 2 puff INHALATION Q4H PRN 06/14/18 09/18/18 bisacodyl 1 supp IA PRN 06/14/18 buprenorphine HCl 06/14/18 meloxicam 15 mg PO DAILY 06/14/18 09/18/18 nicotine 14 mg/24 hr daily 1 patch TD DAILY #14 each 08/14/18 09/18/18 transdermal patch nicotine 7 mg/24 hr daily 1 patch TD Q24H #14 each 08/14/18 09/18/18 transdermal patch aspirin 81 mg chewable tablet 1 tab PO DAILY #90 tab 08/19/18 09/18/18 budesonide-formoterol HFA 160 2 puff INHALATION BID #10.2 gm 08/19/18 09/18/18 mcg-4.5 mcg/actuation aerosol inhaler bupropion HCl XL 300 mg 24 hr 300 mg PO DAILY #90 tab 08/19/18 09/18/18 tablet, extended release citalopram 20 mg tablet 20 mg PO DAILY #90 tab 08/19/18 09/18/18 docusate sodium 100 mg tablet 100 mg PO BID #180 tab 08/19/18 09/18/18 folic acid 1 mg tablet 1 mg PO DAILY #90 tab 08/19/18 09/18/18 lisinopril 10 mg tablet 10 mg PO DAILY #90 tab 08/19/18 09/18/18 loratadine 10 mg tablet 10 mg PO DAILY #90 tab 08/19/18 09/18/18 multivitamin-ferrous 1 tab PO DAILY #90 tab 08/19/18 09/18/18 fumarate-folic acid 18 mg-400 mcg tablet omeprazole 20 mg capsule,delayed 20 mg PO DAILY #90 cap 08/19/18 09/18/18 release ranitidine 150 mg tablet 150 mg PO HS #90 tab 08/19/18 09/18/18 trazodone 100 mg tablet 100 mg PO HS #90 tab 08/19/18 09/18/18 tiotropium bromide 18 mcg capsule 1 cap IH DAILY #90 inh 08/20/18 09/18/18 with inhalation device tiotropium bromide 2.5 2 puff IH DAILY #4 gm 08/20/18 09/18/18 mcg/actuation mist for inhalation oxycodone 5 mg tablet 5 mg PO DAILY #5 tab MDD 1 09/02/18 09/18/18 Previous Rx's Medication Instructions Recorded nicotine 14 mg/24 hr daily 1 patch TD DAILY #14 each 08/14/18 transdermal patch nicotine 7 mg/24 hr daily 1 patch TD Q24H #14 each 08/14/18 transdermal patch aspirin 81 mg chewable tablet 1 tab PO DAILY #90 tab 08/19/18 budesonide-formoterol HFA 160 2 puff INHALATION BID #10.2 gm 08/19/18 mcg-4.5 mcg/actuation aerosol inhaler bupropion HCl XL 300 mg 24 hr 300 mg PO DAILY #90 tab 08/19/18 tablet, extended release citalopram 20 mg tablet 20 mg PO DAILY #90 tab 12/03/18 docusate sodium 100 mg tablet 100 mg PO BID #180 tab 08/19/18 folic acid 1 mg tablet 1 mg PO DAILY #90 tab 08/19/18 lisinopril 10 mg tablet 10 mg PO DAILY #90 tab 08/19/18 loratadine 10 mg tablet 10 mg PO DAILY #90 tab 08/19/18 multivitamin-ferrous 1 tab PO DAILY #90 tab 08/19/18 fumarate-folic acid 18 mg-400 mcg tablet omeprazole 20 mg capsule,delayed 20 mg PO DAILY #90 cap 08/19/18 release ranitidine 150 mg tablet 150 mg PO HS #90 tab 08/19/18 trazodone 100 mg tablet 100 mg PO HS #90 tab 08/19/18 tiotropium bromide 18 mcg capsule 1 cap IH DAILY #90 inh 08/20/18 with inhalation device tiotropium bromide 2.5 2 puff IH DAILY #4 gm 08/20/18 mcg/actuation mist for inhalation oxycodone 5 mg tablet 5 mg PO DAILY #5 tab MDD 1 09/02/18 Allergies Allergy/AdvReac Type Severity Reaction Status Date / Time carbamazepine Allergy Intermediate Hives Unverified 09/18/18 11:18 simvastatin Allergy Unverified 09/18/18 11:18 General Stated Complaint: Trauma GEMA: 3 Review of Systems Review of Systems 6 systems reviewed and otherwise - [facility] Surgical History Rotator Cuff Repair (06/30/16) Social History Smoking/Tobacco Use Status: Current every day Exam Narrative Exam Narrative: GEN: awake, alert, oriented 3. Pleasant, well groomed, interactive. HEAD: Normocephalic, atraumatic ENT: Mucous membranes moist, oropharynx unremarkable, External ear exam unremarkable EYES: PERRL, EOMI NECK: Full ROM, no YOKO, no menigismus CHEST/RESP: Nontender, clear to auscultation bilateral, no wheeze/rhonchi/rales CARDIOVASCULAR: RRR, no murmur, rub kirsten. 2+ Rad pulse bilateral ABDOMEN: Soft, nontender, no mass. +Bowel sounds Back: Midline lumbar tenderness and sacral tenderness to palpation. EXT: Full ROM, no edema, no rash Neuro: Grossly normal neurologic exam, conversant, interactive. Psych: Speech fluent, thoughts congruent, affect normal Course Vital Signs Temperature 37 C 09/18/18 11:14 Pulse 95 H 09/18/18 11:14 Respiratory Rate 16 09/18/18 11:14 Blood Pressure 171/81 H 09/18/18 11:14 Pulse Oximetry 97 09/18/18 11:14 Temperature 37 C 09/18/18 11:14 Pulse 95 H 09/18/18 11:14 Respiratory Rate 16 09/18/18 11:14 Respiratory Effort 09/18/18 11:14 Blood Pressure 171/81 H 09/18/18 11:14 Blood Pressure Position Sitting 09/18/18 11:14 Pulse Oximetry 97 09/18/18 11:14 Oxygen Delivery Method Room Air 09/18/18 11:14 Oxygen Flow Rate 0 09/18/18 11:14 Pain Level 9 09/18/18 11:14
[2018-09-18] MEDS: Lidocaine 5% Patch 1 PATCH TP (12:01)
== END 2018-09-18 12:04 | disposition home or self-care (01) ==
PROVIDERS: Emergency Provider Emergency Medicine; PCP Nurse Practitioner
DX: S30.0XXA Contusion of lower back and pelvis, initial encounter (principal); M53.3 Sacrococcygeal disorders, not elsewhere classified; W10.8XXA Fall (on) (from) other stairs and steps, initial encounter; J44.9 Chronic obstructive pulmonary disease, unspecified; F17.210 Nicotine dependence, cigarettes, uncomplicated
CPT/HCPCS: 99284; 72100; 72190

== ENCOUNTER 2018-09-20 09:29 | Emergency (ER) | payer MEDICAID, SELFPAY ==
[2018-09-20 09:32] VITALS: BP 163/81; PULSE 94; RESP 16; TEMP 37; O2SAT 99
--- NOTE | 2018-09-20 09:52 | W.ED.GENAD ---
Discharge Plan Disposition Patient Disposition: HOME Condition: Stable Discharge Details Chief Complaint: Nk/Back Pain Clinical Impression: Fracture of sacrum Reason For Visit: [facility] Primary Care Provider: Ness Diaz ED Provider: Meg Salcido Home Meds and New Rx's Prescriptions: New oxycodone 5 mg tablet 5 mg PO Q6H PRN (Reason: pain) Qty: 7 RF: 0 Continued nicotine [Nicoderm CQ] 14 mg/24 hr patch 24 hour 1 patch TD DAILY Qty: 14 RF: 0 nicotine [Nicoderm CQ] 7 mg/24 hr patch 24 hour 1 patch TD Q24H Qty: 14 RF: 0 aspirin 81 mg tablet,chewable 1 tab PO DAILY Qty: 90 RF: 0 bupropion HCl [Wellbutrin XL] 300 mg tablet extended release 24 hr 300 mg PO DAILY Qty: 90 RF: 0 Certavite-Antioxidant 18-400 mg-mcg tablet 1 tab PO DAILY Qty: 90 RF: 0 docusate sodium [Promolaxin] 100 mg tablet 100 mg PO BID Qty: 180 RF: 0 folic acid 1 mg tablet 1 mg PO DAILY Qty: 90 RF: 0 lisinopril 10 mg tablet 10 mg PO DAILY Qty: 90 RF: 0 loratadine 10 mg tablet 10 mg PO DAILY Qty: 90 RF: 0 citalopram 20 mg tablet 20 mg PO DAILY Qty: 90 RF: 0 Symbicort 160-4.5 mcg/actuation HFA aerosol inhaler 2 puff Inhalation BID Qty: 10.2 RF: 0 omeprazole 20 mg capsule,delayed release(DR/EC) 20 mg PO DAILY Qty: 90 RF: 0 ranitidine HCl 150 mg tablet 150 mg PO HS Qty: 90 RF: 0 trazodone 100 mg tablet 100 mg PO HS Qty: 90 RF: 0 Spiriva with HandiHaler 18 mcg capsule, w/inhalation device 1 cap IH DAILY Qty: 90 RF: 0 Spiriva Respimat 2.5 mcg/actuation mist 2 puff IH DAILY Qty: 4 RF: 1 bisacodyl 10 mg Suppository 1 supp NC PRNRF: 0 ProAir HFA 90 mcg/actuation Hfa Aerosol Inhaler 2 puff Inhalation Q4H PRNRF: 0 Discharge Instructions Instructions: Sacral Fracture (ED) Additional Instructions: Use pillows for comfort. Use your cane for ambulation as you may continue walking as tolerated. Apply ice to the affected area several times daily. Follow-up with a primary care doctor in 1 week for reevaluation. Return immediately to the emergency department any worsening or new concerning symptoms. Follow-up with orthopedics if your pain persists or worsens. Referrals: Luke Flores MD [ [facility] STAFF PHYSICIAN] - Discharge Data Discharge Date/Time-TO BE ENTERED AT DEPARTURE: 09/20/18 12:39 Discharge Physician: Meg Salcido Medical Decision Making 63-year-old male with history of COPD and coronary artery disease who presents for persistent lower back pain status post fall 5 days ago. Patient had difficulty getting out of bed this morning due to pain but was eventually able to after 1 hour. No cauda equina symptoms. Patient was seen here 2 days ago for the same complaint and had a lumbar spine x-ray which was negative and sent home with Lidoderm patch. Nurse review of medications noted that patient had been on oxycodone for some time which was stopped recently. Patient has not taken Motrin or Tylenol for pain. Patient has healing ecchymoses and tenderness in midline LS spine/sacrum. No focal deficits. Neurovascularly intact. Patient appears uncomfortable with movement. We will give a dose of oxycodone and Valium p.o. and send for lumbar spine CT. 1042 -- d/w radiology - ct notes minimally displaced 2nd and 3rd sacrum fractures. 1100 -- pt states his pain is improved. 1140 -- d/w ortho -recommends pillows for comfort, no other restrictions, weightbearing as tolerated. 1200 --patient able to ambulate around the ED with a cane, which he usually uses at baseline. Patient states he feels good to go home Medical Records Medical records reviewed: Yes I reviewed the patient's medical records. Imaging Data Radiologic Study: Radiologist's impression: Lumbar spine and SI joints CT: 1. Minimally displaced fracture involving the second and third segments of the sacrum. 2. No evidence of lumbar spine fracture or dislocation. 3. Resolving/evolving subcapsular splenic hematoma. This was present on the patient's examination from 06/14/18. HPI General Mode of arrival: EMS. Date/Time Provider Initiated Documentation: 09/20/18 10:06. Limitations to Documentation: no limitations. Information obtained by: patient. HPI Narrative: Patient is a 63-year-old male who presents the ED with complaint of lower back pain since fall 5 days ago. Patient states he slipped and fell down 6 stairs hitting his lower back and coccyx on the stairs in a cement floor. Patient denies head injury at the time. Patient states he was able to ambulate after the fall. Patient was seen here 2 days ago for the same complaint and had a lumbar spine x-ray which was negative and he was discharged home with a coccyx contusion with a Lidoderm patch. Patient denies any relief with the Lidoderm patch. Patient admits to radiation of pain into his buttocks and legs but denies any leg weakness, leg numbness, saddle anesthesia, urinary or fecal incontinence, abdominal pain or fever. Patient states he had been able to walk last night but states he awoke this morning and it took him an hour to get out of bed due to the pain in his lower back. He denies any new injury. Patient has not taken any Tylenol or Motrin for pain. EMS reported that patient was able to stand and pivot to get onto stretcher. Related Data Home Medications Medication Instructions Recorded Confirmed ProAir HFA 2 puff INHALATION Q4H PRN 06/14/18 09/20/18 bisacodyl 1 supp NC PRN 06/14/18 nicotine 14 mg/24 hr daily 1 patch TD DAILY #14 each 08/14/18 09/18/18 transdermal patch nicotine 7 mg/24 hr daily 1 patch TD Q24H #14 each 08/14/18 09/20/18 transdermal patch aspirin 81 mg chewable tablet 1 tab PO DAILY #90 tab 08/19/18 09/20/18 budesonide-formoterol HFA 160 2 puff INHALATION BID #10.2 gm 08/19/18 09/20/18 mcg-4.5 mcg/actuation aerosol inhaler bupropion HCl XL 300 mg 24 hr 300 mg PO DAILY #90 tab 08/19/18 09/20/18 tablet, extended release citalopram 20 mg tablet 20 mg PO DAILY #90 tab 08/19/18 09/20/18 docusate sodium 100 mg tablet 100 mg PO BID #180 tab 08/19/18 09/20/18 folic acid 1 mg tablet 1 mg PO DAILY #90 tab 08/19/18 09/20/18 lisinopril 10 mg tablet 10 mg PO DAILY #90 tab 08/19/18 09/20/18 loratadine 10 mg tablet 10 mg PO DAILY #90 tab 08/19/18 09/20/18 multivitamin-ferrous 1 tab PO DAILY #90 tab 08/19/18 09/20/18 fumarate-folic acid 18 mg-400 mcg tablet omeprazole 20 mg capsule,delayed 20 mg PO DAILY #90 cap 08/19/18 09/20/18 release ranitidine 150 mg tablet 150 mg PO HS #90 tab 08/19/18 09/20/18 trazodone 100 mg tablet 100 mg PO HS #90 tab 08/19/18 09/20/18 tiotropium bromide 18 mcg capsule 1 cap IH DAILY #90 inh 08/20/18 09/18/18 with inhalation device tiotropium bromide 2.5 2 puff IH DAILY #4 gm 08/20/18 09/20/18 mcg/actuation mist for inhalation oxycodone 5 mg PO Q6H PRN #7 tab 09/20/18 Previous Rx's Medication Instructions Recorded nicotine 14 mg/24 hr daily 1 patch TD DAILY #14 each 08/14/18 transdermal patch nicotine 7 mg/24 hr daily 1 patch TD Q24H #14 each 08/14/18 transdermal patch aspirin 81 mg chewable tablet 1 tab PO DAILY #90 tab 08/19/18 budesonide-formoterol HFA 160 2 puff INHALATION BID #10.2 gm 08/19/18 mcg-4.5 mcg/actuation aerosol inhaler bupropion HCl XL 300 mg 24 hr 300 mg PO DAILY #90 tab 08/19/18 tablet, extended release citalopram 20 mg tablet 20 mg PO DAILY #90 tab 08/19/18 docusate sodium 100 mg tablet 100 mg PO BID #180 tab 08/19/18 folic acid 1 mg tablet 1 mg PO DAILY #90 tab 08/19/18 lisinopril 10 mg tablet 10 mg PO DAILY #90 tab 08/19/18 loratadine 10 mg tablet 10 mg PO DAILY #90 tab 08/19/18 multivitamin-ferrous 1 tab PO DAILY #90 tab 08/19/18 fumarate-folic acid 18 mg-400 mcg tablet omeprazole 20 mg capsule,delayed 20 mg PO DAILY #90 cap 08/19/18 release ranitidine 150 mg tablet 150 mg PO HS #90 tab 08/19/18 trazodone 100 mg tablet 100 mg PO HS #90 tab 08/19/18 tiotropium bromide 18 mcg capsule 1 cap IH DAILY #90 inh 08/20/18 with inhalation device tiotropium bromide 2.5 2 puff IH DAILY #4 gm 08/20/18 mcg/actuation mist for inhalation oxycodone 5 mg PO Q6H PRN #7 tab 09/20/18 Allergies Allergy/AdvReac Type Severity Reaction Status Date / Time carbamazepine Allergy Intermediate Hives Unverified 09/20/18 09:37 simvastatin Allergy Unverified 09/20/18 09:37 General Stated Complaint: Nk/Back Pain GEMA: 3 Review of Systems Review of Systems All systems reviewed & are unremarkable except as noted in HPI and below Constitutional Reports as per HPI, Denies chills and Denies fever(s) Eyes Denies blurry vision ENT Denies dizziness, Denies sore throat and Denies throat swelling Cardiovascular Denies chest pain and Denies dyspnea Respiratory Denies dyspnea Gastrointestinal Denies abdominal pain, Denies diarrhea and Denies vomiting Genitourinary Denies hematuria and Denies dysuria Musculoskeletal Reports back pain and Denies numbness Integumentary/Breasts Denies lesions and Denies rash Neurologic Denies dizziness and Denies numbness Allergic/Immunologic Denies throat swelling [facility] Medical History COPD (chronic obstructive pulmonary disease) (Chronic) Coronary artery disease (Chronic) Coronary artery disease (Chronic) Surgical History History of coronary artery stent placement (Chronic) History of tonsillectomy (Chronic) Rotator Cuff Repair (06/30/16) Social History Smoking/Tobacco Use Status: Current every day alcohol intake: current alcohol intake frequency: a few times a month substance use type: does not use Exam Const General: cooperative, healthy appearing and no acute distress HENMT Head: normal to inspection Face and sinus: normal facial exam Eyes General: appearance normal, both eyes and all related structures EOM: EOM intact bilaterally Neck Neck: normal visual inspection and No submandibular swelling Lymphatic: no lymphadenopathy noted Chest Chest: normal inspection of the chest and no tenderness Resp Effort & Inspection: normal respiratory effort and able to speak in complete sentences Auscultation: clear to auscultation bilaterally Cardio Rate: regular rate Rhythm: regular rhythm GI Inspection: normal to inspection Palpation: soft, not firm, not rigid and nontender Auscultation: normal bowel sounds Male General Exam: Yes normal external exam Penis: normal penis Scrotum: scrotum normal Testes: normal and no testicular tenderness Back/Spine/Pelvis Thoracic/Lumbar Spine: No thoracic spinal tenderness and lumbar spinal tenderness (midline) Sacrum: ecchymosis midline and tenderness midline Coccyx: tenderness on direct palpation Skin General skin exam: no rashes or lesions noted Neuro General: alert, awake and oriented x3 Cognition: normal cognition Speech: speech normal Motor: muscle tone normal throughout and strength 5/5 throughout Sensory Exam: no sensory deficits noted DTR's: Rt Patellar: 1+, Lt Patellar: 1+, Rt Ankle: 1+ and Lt Ankle: 1+ Plantar Reflexes: Equivocal: bilateral Other: Straight leg raise negative b/l. Extrem General: normal to inspection, full ROM, normal capillary refill, no calf tenderness bilaterally and no edema Right lower extremity: foot Details: vascular exam Details: dorsalis pedis pulse present and posterior tibial pulse present Psych Appearance: grossly normal Mental Status: mental status grossly normal Speech and Movement: speech and movement normal Affect: normal affect Course Vital Signs Temperature 98.6 F 09/20/18 09:32 Pulse 94 H 09/20/18 09:32 Respiratory Rate 16 09/20/18 09:32 Blood Pressure 163/81 H 09/20/18 09:32 Pulse Oximetry 99 09/20/18 09:32 Temperature 98.6 F 09/20/18 09:32 Temperature Source Temporal Artery Scan 09/20/18 09:32 Pulse 94 H 09/20/18 09:32 Respiratory Rate 16 09/20/18 09:32 Respiratory Effort Non-Labored 09/20/18 09:36 Blood Pressure 163/81 H 09/20/18 09:32 Blood Pressure Position Supine 09/20/18 09:32 Pulse Oximetry 99 09/20/18 09:32 Oxygen Delivery Method Room Air 09/20/18 09:32 Oxygen Flow Rate 0 09/20/18 09:32 Pain Level 10 09/20/18 09:32
[2018-09-20] MEDS: Diazepam 5 MG TAB PO (10:17)
[2018-09-20] MEDS: oxyCODONE 5 MG TAB PO (10:17)
--- NOTE | 2018-09-20 10:34 | DI.CT_ITS ---
SYMPTOM/DIAGNOSIS: S/P FALL, ? ACUTE FX, PAIN LUMBAR SPINE AND SI JOINTS CT: Multiple contiguous axial images of the lumbar spine were obtained. Sagittal and coronal reformatted images were evaluated on the Siemens work station. There is a nondisplaced oblique fracture extending involving the second and third sacral segments. The fracture extends to the left to involve the sacral ala with involvement of the left S 3 neural foramen and posterior elements. The fracture appears to show minimal displacement. There does not appear to be involvement of the left or right sacroiliac joints. The lumbar spine is normally aligned without acute fracture or dislocation. Minimal degenerative changes are seen in the lumbar spine. The soft tissues are unremarkable. Note is again made of a subcapsular hematoma involving the spleen. It has shown interval decrease in size. This compared with the CT scan from 06/14/18. The findings are consistent with a resolving hematoma. IMPRESSION: 1. Minimally displaced fracture involving the second and third segments of the sacrum as described above. 2. No evidence of a lumbar spine fracture or dislocation. 3. Resolving/evolving subcapsular splenic hematoma. This was present on the patient's examination from 06/14/18. The findings were discussed with Meg Salcido of the ER on the date of the examination.
[2018-09-20 11:55] VITALS: BP 170/78; PULSE 89; RESP 18; TEMP 37.9; O2SAT 92
--- NOTE | 2018-09-20 12:07 | NUR.NOTE ---
Nursing Note:AMbulated patient in [place], patient able to get self oob, slow but steady gait noted. Pt states that he would rather be home.
== END 2018-09-20 12:39 | disposition home or self-care (01) ==
PROVIDERS: Emergency Provider Physician Assistant; PCP Nurse Practitioner
DX: S32.10XA Unspecified fracture of sacrum, initial encounter for closed fracture (principal); W10.9XXA Fall (on) (from) unspecified stairs and steps, initial encounter; J44.9 Chronic obstructive pulmonary disease, unspecified; F17.210 Nicotine dependence, cigarettes, uncomplicated
CPT/HCPCS: 99284; 72131; 99283

== ENCOUNTER 2019-02-26 13:18 | Outpatient (CLI) | payer MEDICAID, SELFPAY ==
--- NOTE | 2019-02-26 06:00 | DI.RAD_ITS ---
SYMPTOMS/DIAGNOSIS: SACROILIAC JOINT DYSFUNCTION PAIN CLINIC SACROILIAC JOINT: Fluoroscopy Time: 44.2 sec Fluoroscopy was utilized by Dr. Hernandez during the performance of a right sacroiliac joint injection. Please refer to the procedure report for complete details.
[2019-02-26 12:18] VITALS: BP 113/61; PULSE 74; RESP 16; TEMP 36.6; O2SAT 94
[2019-02-26] MEDS: methylPREDNISolone ACETATE 80 MG/ML VIAL IJ (13:24)
[2019-02-26] MEDS: Omnipaque 240 MG/ML 50 ML BTL IJ (13:25)
[2019-02-26] MEDS: Bupivacaine 0.5% Pres-Free 10 ML VIAL IJ (13:31)
[2019-02-26 13:32] VITALS: BP 127/60; PULSE 70; RESP 15; O2SAT 96
--- NOTE | 2019-02-26 13:43 | PDOC.PAIN ---
Pain Clinic Procedure Note Current Active Problems Problem Status Onset Sacroiliac joint pain Chronic INTRA-ARTICULAR SI JOINT INJECTION KELLI BARKLEY has been referred to the [facility] for intra-articular SI joint injection. COMMENTS: Patient fell in October and fractured his pelvis on the right side. This did not involve his SI joint though he has pain in that region. Patient was interviewed and the medical record reviewed. There were no medical, pharmacologic, radiographic or other structural contraindications to attempting fluoroscopically guided intra-articular SI joint injection. Risks and expected side effects as well as potential benefit of the procedure were reviewed and voiced concerns addressed. The printed consent form was signed and witnessed. Standard time-out procedure was performed. Patient was placed in the prone position on the fluoroscopy table and automated blood pressure cuff and pulse oximeter applied. The skin entry point for approaching {right} SI joints was identified under the most advantageous fluoroscopic view and marked. Following thorough Chlorhexadine preparation of the skin and draping and 1% lidocaine infiltration of the skin entry point and subcutaneous tissues, a 22 gauge spinal needle was placed under fluoroscopic guidance into {right/} SI joints was identified under the most advantageous fluoroscopic view and marked. Following thorough Chlorhexadine preparation of the skin and draping and 1% lidocaine infiltration of the skin entry point and subcutaneous tissues, a 22 gauge spinal needle was placed under fluoroscopic guidance into {right/} SI joint. Intra-articular placement was confirmed by a clear arthrogram resulting from the injection of 0.25ml Omnipaque 240, 1ml 0.5% bupivacaine, and half ml (40mg) of 80mg concentration Depomedrol were injected intra-articularily with an initial reproduction of a significant component of the usual pain. Vital signs were stable throughout the procedure and were as recorded in the docflowsheet by the nursing staff. If given, dosages of intravenous drugs for anxiolysis and analgesia were documented in MAR. Follow up plans and appointments were discussed with the patient. Post procedure instruction was given as documented in nursing documentation and having met discharge criteria, and was discharged from the [facility]. COMMENTS: Pain went from 7/10 to 01/24. Access to joint was difficult-consider repeat with CT guidance if needed. He will follow-up with [facility]. CC: Ness Diaz
--- NOTE | 2019-02-26 13:47 | PDOC.PAIN_ITS ---
Pain Clinic Procedure Note Current Active Problems Problem Status Onset Sacroiliac joint pain Chronic INTRA-ARTICULAR SI JOINT INJECTION KELLI BARKLEY has been referred to the [facility] for intra- articular SI joint injection. COMMENTS: Patient fell in October and fractured his pelvis on the right side. This did not involve his SI joint though he has pain in that region. Patient was interviewed and the medical record reviewed. There were no medical, pharmacologic, radiographic or other structural contraindications to attempting fluoroscopically guided intra-articular SI joint injection. Risks and expected side effects as well as potential benefit of the procedure were reviewed and voiced concerns addressed. The printed consent form was signed and witnessed. Standard time-out procedure was performed. Patient was placed in the prone position on the fluoroscopy table and automated blood pressure cuff and pulse oximeter applied. The skin entry point for approaching {right} SI joints was identified under the most advantageous fluoroscopic view and marked. Following thorough Chlorhexadine preparation of the skin and draping and 1% lidocaine infiltration of the skin entry point and subcutaneous tissues, a 22 gauge spinal needle was placed under fluoroscopic guidance into {right/} SI joints was identified under the most advantageous fluoroscopic view and marked. Following thorough Chlorhexadine preparation of t he skin and draping and 1% lidocaine infiltration of the skin entry point and subcutaneous tissues, a 22 gauge spinal needle was placed under fluoroscopic guidance into {right/} SI joint. Intra-articular placement was confirmed by a clear arthrogram resulting from the injection of 0.25ml Omnipaque 240, 1ml 0.5% bupivacaine, and half ml (40mg) of 80mg concentration Depomedrol were injected intra-articularily with an initial reproduction of a significant component of the usual pain. Vital signs were stable throughout the procedure and were as recorded in the docflowsheet by the nursing staff. If given, dosages of intravenous drugs for anxiolysis and analgesia were documented in MAR. Follow up plans and appointments were discussed with the patient. Post procedure instruction was given as documented in nursing documentation and having met discharge criteria, and was discharged from the [facility]. COMMENTS: Pain went from 7/10 to 5/. Access to joint was difficult-consider repeat with CT guidance if needed. He will follow-up with [facility]. CC: Ness Diaz
== END 2019-02-26 13:38 ==
PROVIDERS: PCP Nurse Practitioner; Visit Provider Anesthesiology Pain Medicine
DX: M53.3 Sacrococcygeal disorders, not elsewhere classified (principal)
CPT/HCPCS: 27096; 72200; J1040; Q9967

== ENCOUNTER 2019-07-02 11:31 | Outpatient (REF) | payer MEDICAID, SELFPAY ==
[2019-07-02 12:55] LABS: ALT 28 U/L (16-63); AST 26 U/L (15-37); Albumin 3.7 g/dL (3.4-5.0); Alkaline Phosphatase 94 U/L (46-116); Anion Gap 7.8 mmol/L (3-11); BUN 10 mg/dL (7-18); Bilirubin, Total 0.2 mg/dL (0.2-1.0); CO2 31.2 mmol/L (21.0-32.0); CREATININE 0.94 mg/dL (0.70-1.30); Calcium 9.7 mg/dL (8.5-10.1); Calculated LDL 159 mg/dL; Chloride 103 mmol/L (98-107); Cholesterol 237 mg/dL (50-200); Glucose 87 mg/dL (70-100); HDL Cholesterol 54 mg/dL (40-60); Potassium 4.8 mmol/L (3.5-5.1); Sodium 142 mmol/L (136-145); Total Protein 7.3 g/dL (6.4-8.2); Triglyceride 123 mg/dL (30-150)
== END 2019-07-02 11:51 ==
LOC: NCHCN 11:31
PROVIDERS: PCP Nurse Practitioner; Visit Provider Nurse Practitioner
DX: I10 Essential (primary) hypertension (principal); I25.10 Atherosclerotic heart disease of native coronary artery without angina pectoris
CPT/HCPCS: 80053; 80061

== ENCOUNTER 2019-08-11 03:24 | Outpatient (CLI) | payer MEDICAID, SELFPAY ==
--- NOTE | 2019-08-11 13:15 | PFT_ITS ---
PULMONARY FUNCTION TEST REPORT DATE OF SERVICE: August 11, 2019 REQUESTING PROVIDER: Ness Diaz N.P. Spirometry shows severe obstructive airways disease with some, but not significant, bronchodilator response. Lung volumes show no evidence of restriction. Diffusion capacity severely reduced, even when corrected to alveolar volume. Airways resistance normal. IMPRESSION: Severe obstructive airways disease with some, but not significant, bronchodilator response. This is associated with severe diffusion defect. Clinical correlation recommended. When this study was compared to previous one from 10/23/16, the patient has a remarkable improvement in FVC of a total of 1580 cc's; FEV1 has improved by 190 cc's. LESLY/julienne D/
[2019-08-11] MEDS: Inhaler, Assist Device 1 EACH MC (13:45)
[2019-08-11] MEDS: Albuterol HFA 18 GM 200 PUFF INH IH (13:45)
== END 2019-08-11 03:44 ==
PROVIDERS: PCP Nurse Practitioner; Visit Provider Nurse Practitioner
DX: J44.9 Chronic obstructive pulmonary disease, unspecified (principal); R06.09 Other forms of dyspnea; R05 Cough; F17.210 Nicotine dependence, cigarettes, uncomplicated
CPT/HCPCS: 94060; 94150; 94726; 94729

== ENCOUNTER 2020-04-07 12:19 | Outpatient (CLI) | payer MEDICAID, SELFPAY ==
--- NOTE | 2020-04-07 | DI.CTLCSR_ITS ---
EXAM: CT CHEST LUNG CANCER SCREEN CLINICAL HISTORY: The patient reportedly has a History of Smoking 30 pack years and presently smokes or has quit the past 15 years. TECHNIQUE: Imaging Protocol: Axial computed tomography images with coronal and sagittal reformatted images were created and reviewed COMPARISON: CT CHEST FOR PULMONARY EMBOLUS from 03/24/[address] CHEST/ABD/PEL W from 06/14/2018 FINDINGS: Tracheobronchial tree: Patent where visualized. Mediastinum and Donna: No dominant adenopathy or fluid collection. Pulmonary parenchyma: Moderately severe centrilobular emphysematous changes are present in the lungs. No focal consolidations. Lung Nodules: None. Pleura: No effusion or pneumothorax. Heart: The heart is not dilated. Moderate coronary artery calcification. No pericardial effusion. Aorta: Thoracic aorta non-dilated.Atherosclerosis. Upper abdomen: Unremarkable. Bones: Degenerative changes. Old compression deformities at T4 and T5. Soft Tissues: Unremarkable. IMPRESSION: 1. No pulmonary nodules. 2. Pulmonary emphysema. Lung RADS Cat 1 - Negative: No nodules and definitely benign nodules Lung-RADS 1.0 CATEGORIES: Category 0 - Prior chest CT exam(s) being located for comparison. Category 1 - Annual screening in 12 months. No nodules or definitely benign nodules. Category 2 - Annual screening in 12 months. Benign appearance. Nodules with low likelihood of becomin g active cancer. Category 3 - 6-month follow-up. Probably benign. Short-term follow-up suggested. Nodules with low lik elihood of becoming active cancer. Category 4A - 3-month follow-up and CT/PET if >8 mm in size. Suspicious finding. Findings which requi re additional testing. Category 4B - Findings which require additional testing and tissue sampling. Suspicious finding. C Added to Any of the Above - History of prior lung cancer screening. S Added to Any of the Above - Significant unexpected other finding. RADIATION DOSE DELIVERED: Total DLP DATA REPOSITORY: All CT scans at this facility are submitted to the National Radiology Data Registry (NRDR) Dose Index Registry (DIR) with the [employer] ([employer]). RADIATION OPTIMIZATION: All CT scans at this facility use at least one of these dose optimization te chniques: automated exposure control; mA and/or kV adjustment per patient size (includes targeted exa ms where dose is matched to clinical indication); or iterative reconstruction.
== END 2020-04-07 12:39 ==
PROVIDERS: PCP Nurse Practitioner; Visit Provider Internal Medicine
DX: Z12.2 Encounter for screening for malignant neoplasm of respiratory organs (principal); F17.210 Nicotine dependence, cigarettes, uncomplicated; J43.9 Emphysema, unspecified
CPT/HCPCS: G0297

== ENCOUNTER 2020-04-29 20:45 | Emergency (ER) | payer MEDICAID, SELFPAY ==
[2020-04-29 20:49] VITALS: BP 168/73; PULSE 72; RESP 20; TEMP 36.7; O2SAT 97
--- NOTE | 2020-04-29 21:00 | DI.CT_ITS ---
EXAM: CT HEAD CERV SPINE FACIAL WO CLINICAL HISTORY: fall, altered. TECHNIQUE: Imaging Protocol: Axial computed tomography images with coronal and sagittal reformatted images were created and reviewed COMPARISON: No exams were available for comparison FINDINGS: CT Head: Ventricles and Extra axial spaces: Normal in size and morphology for the patient's age. Hemorrhage: None. 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 Midline shift: None. Brainstem/Cerebellum: Normal. Calvarium: Normal. Visualized Paranasal sinuses/Mastoids: Opacification of a few ethmoid air cells. Fluid level seen in the right maxillary sinus. Opacification of a few mastoid air cells but no associated fracture. Soft Tissues: Unremarkable. CT Face: Facial Bones: There is a nasal bone fracture. There is a mildly displaced right zygomatic arch frac ture. There is a comminuted depressed fracture of the posterolateral wall of the right maxillary sin us. There is a comminuted mildly displaced fracture of the anterior wall of the right maxillary sinu s. There is a displaced comminuted fracture of the lateral right orbital wall. There is a mildly de pressed fracture of the floor of the right orbit. No muscle entrapment is identified. Sinuses and Mastoids: Opacification of several ethmoid air cells is seen. There is hemorrhage seen in the right maxillary sinus. The remaining visualized paranasal sinuses are clear. Globes, extraocular muscles, optic nerves and retrobulbar fat: Normal. Upper aerodigestive tract: Normal. Mandible and bilateral temporomandibular joints: Normal. Soft tissues: There is soft tissue swelling over the right face. CT Cervical Spine: Bones: No acute fracture or subluxation. Degenerative changes are seen throughout the cervical spine resulting in multilevel disc space narrowing and neural foraminal narrowing. Soft Tissues: Unremarkable. Lung Apices: No acute pulmonary process. Centrilobular emphysematous changes are present. IMPRESSION: 1. No acute intracranial process. 2. No acute fracture or subluxation in the cervical spine. 3. Fractures involving the anterior, posterior lateral maxillary sinus, right zygomatic arch, lateral wall and floor of the right orbit. 4. No evidence of entrapment of the periorbital muscles. 5. Nasal bone fracture. RADIATION DOSE DELIVERED: 1,785.49mGy.cm Total DLP DATA REPOSITORY: All CT scans at this facility are submitted to the National Radiology Data Registry (NRDR) Dose Index Registry (DIR) with the [employer] [place] [employer] (ACR). RADIATION OPTIMIZATION: All CT scans at this facility use at least one of these dose optimization te chniques: automated exposure control; mA and/or kV adjustment per patient size (includes targeted exa ms where dose is matched to clinical indication); or iterative reconstruction.
[2020-04-29 21:30] LABS: ETHANOL BLOOD 267.5 mg/dL (<3)
[2020-04-29] MEDS: Lidocaine/Epinephri/Tetracaine Topical Gel 3 ML TP (21:32)
--- NOTE | 2020-04-29 21:33 | ED.GENADUL_ITS ---
Discharge Plan Disposition Patient Disposition: HOME Discharge Details Chief Complaint: HeadInjury Clinical Impression: Facial laceration, Laceration of lip, Fall, Multiple facial bone fractures, Orbital fracture Primary Care Provider: Ness Diaz ED Provider: Jamin Loyd Home Meds and New Rx's Prescriptions: New amoxicillin-pot clavulanate [Augmentin] 875-125 mg tablet 1 tab PO BID Qty: 19 RF: 0 Continued meloxicam 15 mg tablet 15 mg PO DAILY RF: 0 aspirin 81 mg tablet,chewable 1 tab PO DAILY Qty: 90 RF: 0 Certavite-Antioxidant 18-400 mg-mcg tablet 1 tab PO DAILY Qty: 90 RF: 0 lisinopril 10 mg tablet 10 mg PO DAILY Qty: 90 RF: 0 loratadine 10 mg tablet 10 mg PO DAILY Qty: 90 RF: 0 citalopram 20 mg tablet 20 mg PO DAILY Qty: 90 RF: 0 budesonide-formoterol [Symbicort] 160-4.5 mcg/actuation HFA aerosol inhaler 2 puff Inhalation BID Qty: 10.2 RF: 0 omeprazole 20 mg capsule,delayed release(DR/EC) 20 mg PO DAILY Qty: 90 RF: 0 Spiriva with HandiHaler 18 mcg capsule, w/inhalation device 1 cap IH DAILY Qty: 90 RF: 0 albuterol sulfate [ProAir HFA] 90 mcg/actuation Hfa Aerosol Inhaler 2 puff Inhalation Q4H PRNRF: 0 atorvastatin 20 mg Tablet 20 mg PO DAILY RF: 0 lamotrigine [Lamictal] 25 mg Tablet 50 mg PO BID RF: 0 fluticasone propionate [Flonase Allergy Relief] 50 mcg/actuation [place],Suspension 2 spray INTRANASAL DAILY RF: 0 quetiapine 50 mg Tablet 50 mg PO QHS RF: 0 Discharge Instructions Instructions: Facial Fracture (ED), Alcohol Intoxication (ED), Fall Prevention (ED), Facial Laceration (ED) Additional Instructions: Please take antibiotic as prescribed. Please take acetaminophen (tylenol) - 650mg every 6 hours by mouth as needed for pain. Please take ibuprofen over the counter. Take 600mg by mouth every 6 hours as needed for pain starting tomorrow. Please follow-up with [facility] plastic surgery. Call tomorrow to arrange timely follow-up tomorrow. . Please contact your primary care physician to arrange follow-up. Return to the ER for any worsening or new concerning symptoms. Referrals: Ness Diaz [Primary Care Provider] - Discharge Data Discharge Date/Time-TO BE ENTERED AT DEPARTURE: 04/30/20 00:10 Medical Decision Making 2100??65-year-old male with multi-medical problems including history of COPD, coronary artery disease, hypertension, here after mechanical trip and fall down 2 stairs with injury to his right face. Patient is hemodynamically stable. Abdominal exam benign. He is swollen and tender along his right maxilla and infraorbital area. I am highly suspicious for facial bone fracture. Airway intact. Patient also with laceration to his lip and laceration over right zygoma. Unclear etiology for right upper extremity weakness the patient note has been going on for 6 months. Suspect likely prior CVA. Here for mild acute alcohol intoxication. --Alcohol level elevated at 267, lab draw at 2100 2300 -- CT of the head was reviewed and interpreted by radiology: No intracranial hemorrhage or skull fracture. See facial CT report for facial fractures. CT of the face was reviewed and interpreted by radiology: IMPRESSION: 1. Anterior, lateral and posterior right maxillary sinus wall fractures with intra sinus hemorrhage. 2. Acute fracture of the right zygomatic arch. 3. Acute fracture in the lateral and inferior right orbital farnsworth. 4. No entrapment of the periorbital muscles. 5. No injury of the intraorbital contents. 6. Nasal bone fracture. Cervical spine was reviewed and interpreted by radiology: Degenerative changes. No acute finding. Central lobar pulmonary emphysema noted. Atherosclerosis noted. Given concern for open fracture his laceration overlying the area and extending deep I will give dose of Ancef 1 g IV. Patient notes tetanus is up-to-date. He confirms that he received tetanus immunization 3 years ago. I have called [facility] to request consultation with facial trauma for likely tra nsfer and CT imaging sent for review. Called back to check on status and noted that they were receiving diagnostic imaging and would be calling back shortly. --Lip laceration was repaired, please see procedure note. --I spoke with Dr. Delcid, on-call facial trauma surgeon at [facility]. Discussed ED presentation and course including diagnostics and my concerns. He recommends primary wound closure and close outpatient follow-up. Does not feel transfer is necessary at this time. Patient will need close follow-up with facial plastic surgery at [facility]. I will ask care management to assist in arranging outpatient follow-up and transportation. We will discharge patient on Augmentin for prophylaxis. HPI General Mode of arrival: ambulatory . Date/Time Provider Initiated Documentation: 04/29/20 21:00 . Information obtained by: patient . HPI Narrative: 65-year-old male with history of multi-medical problems including coronary artery disease, COPD, hypertension, alcohol abuse, presents with chief complaint of facial pain. Patient notes he tripped and fell down 2 stairs while carrying a water pump from a hot tub. The water pump impacted his face during the fall. This occurred just prior to arrival and has had pain in his right cheekbone and eye since the fall. Pain is moderate and worse on palpation. He has associated lacerations of the face. He also has associated headache. Denies LOC. Denies neck pain. He denies associated visual change. He does note feels like his eye is swollen and he does have some discomfort on lateral gaze. Patient denies other injury. He does note that he consumed 2 beers tonight. Related Data Home Medications Medication Instructions Recorded Confirmed albuterol sulfate [ProAir HFA] 2 puff INHALATION Q4H PRN 06/14/18 04/29/20 aspirin 81 mg chewable tablet 1 tab PO DAILY #90 tab 08/19/18 04/29/20 budesonide-formoterol HFA 160 2 puff INHALATION BID #10.2 gm 08/19/18 04/29/20 mcg-4.5 mcg/actuation aerosol inhaler citalopram 20 mg tablet 20 mg PO DAILY #90 tab 08/19/18 04/29/20 lisinopril 10 mg tablet 10 mg PO DAILY #90 tab 08/19/18 04/29/20 loratadine 10 mg tablet 10 mg PO DAILY #90 tab 08/19/18 04/29/20 multivitamin-ferrous 1 tab PO DAILY #90 tab 08/19/18 04/29/20 fumarate-folic acid 18 mg-400 mcg tablet omeprazole 20 mg capsule,delayed 20 mg PO DAILY #90 cap 08/19/18 04/29/20 release tiotropium bromide 18 mcg capsule 1 cap IH DAILY #90 inh 08/20/18 04/29/20 with inhalation device meloxicam 15 mg tablet 15 mg PO DAILY 01/27/19 04/29/20 amoxicillin-pot clavulanate 1 tab PO BID #19 tab 04/29/20 [Augmentin] atorvastatin 20 mg PO DAILY 04/29/20 04/29/20 fluticasone propionate [Flonase 2 spray INTRANASAL DAILY 04/29/20 04/29/20 Allergy Relief] lamotrigine [Lamictal] 50 mg PO BID 04/29/20 04/29/20 quetiapine 50 mg PO QHS 04/29/20 04/29/20 Previous Rx's Medication Instructions Recorded aspirin 81 mg chewable tablet 1 tab PO DAILY #90 tab 08/19/18 budesonide-formoterol HFA 160 2 puff INHALATION BID #10.2 gm 08/19/18 mcg-4.5 mcg/actuation aerosol inhaler citalopram 20 mg tablet 20 mg PO DAILY #90 tab 08/19/18 lisinopril 10 mg tablet 10 mg PO DAILY #90 tab 08/19/18 loratadine 10 mg tablet 10 mg PO DAILY #90 tab 08/19/18 multivitamin-ferrous 1 tab PO DAILY #90 tab 08/19/18 fumarate-folic acid 18 mg-400 mcg tablet omeprazole 20 mg capsule,delayed 20 mg PO DAILY #90 cap 08/19/18 release tiotropium bromide 18 mcg capsule 1 cap IH DAILY #90 inh 08/20/18 with inhalation device amoxicillin-pot clavulanate 1 tab PO BID #19 tab 04/29/20 [Augmentin] Allergies Allergy/AdvReac Type Severity Reaction Status Date / Time carbamazepine Allergy Intermediate Hives Unverified 04/29/20 22:53 simvastatin Allergy Unverified 04/29/20 22:53 General Stated Complaint: HeadInjury GEMA: 3 Review of Systems All systems reviewed & are unremarkable except as noted in HPI and below Constitutional Constitutional: Reports headache(s) Eyes Eyes: Reports as per HPI and Denies blurry vision ENT Ears, Nose, Mouth, and Throat: Reports as per HPI and Reports headache(s) Cardiovascular Cardiovascular: Denies chest pain and Denies dyspnea Respiratory Respiratory: Denies dyspnea Gastrointestinal Gastrointestinal: Denies abdominal pain Integumentary/Breasts Skin/Breast: Reports as per HPI Neurologic Neurologic: Reports headache(s) [facility] Medical History Alcohol abuse (Chronic) In remission Allergic rhinitis (Chronic) Anxiety and depression (Chronic) Chronic pain (Chronic) COPD (chronic obstructive pulmonary disease) (Chronic) Coronary artery disease (Chronic) Coronary artery disease (Chronic) Eczema (Chronic) GERD (gastroesophageal reflux disease) (Chronic) HTN (hypertension) (Chronic) Surgical History History of coronary artery stent placement (Chronic) History of tonsillectomy (Chronic) Rotator Cuff Repair (06/30/16) RIGHT Social History Smoking/Tobacco Use Status: Current every day Alcohol Intake: current Alcohol Intake frequency: a few times a month Drug use: Occasionally Substance use type: marijuana Do you feel safe at home: Yes Do you feel safe in your relationship?: Yes Exam Narrative Exam Narrative: EtOH odor Const General: cooperative and no acute distress HENMT Face and sinus: face asymmetric, edema on the right maxilla and upper lip, laceration (Vertical over right zygoma) and tenderness on the right maxilla Mouth: moist mucous membranes and lip abnormal (Laceration upper lip bleeding) Eyes Periorbital: periorbital findings abnormal right periorbital ecchymosis (Infraorbital) Conjunctivae: normal conjunctivae Sclera: normal sclerae Pupils: PERRL EOM: EOM intact bilaterally, no movement deficit and nystagmus Neck Neck: trachea midline and supple Resp Effort & Inspection: normal respiratory effort and able to speak in complete sentences Auscultation: no rales, rhonchi and no wheezes Cardio Rate: regular rate and not tachycardic Rhythm: regular rhythm GI Palpation: soft, not firm, no guarding, no masses, not rigid and nontender Back/Spine/Pelvis Cervical Spine: cervical ROM normal and No cervical spinal tenderness Thoracic/Lumbar Spine: thoracic and lumbar spine normal to inspection Skin General skin exam: no rashes or lesions noted Trauma: laceration (Upper lip laceration extends across vermilion border into the philtrum) Neuro General: patient alert, patient awake, patient oriented x3 and tone normal Cranial Nerves: PERRL, EOM intact bilaterally (With nystagmus both vertical and horizontal) and nystagmus Speech: other (Slurred speech) Motor: other (4 out of 5 strength right upper extremity compared to 5 out of 5 left) Sensory Exam: no sensory deficits noted Other: Patient states weakness in his right arm is been present for 6 months; 5/5 lower extremities bilaterally Extrem General: no edema Psych Appearance: grossly normal Course Vital Signs Vital signs: Vital Signs Temperature 36.7 C 04/29/20 20:49 Pulse 72 04/29/20 20:49 Respiratory Rate 20 04/29/20 20:49 Blood Pressure 168/73 H 04/29/20 20:49 Pulse Oximetry 97 04/29/20 20:49 Temperature 36.7 C 04/29/20 20:49 Temperature Source Tympanic 04/29/20 20:49 Pulse 72 04/29/20 20:49 Respiratory Rate 20 04/29/20 20:49 Respiratory Effort 04/29/20 20:52 Respiratory Depth Normal 04/29/20 20:52 Respiratory Pattern Normal 04/29/20 20:52 Blood Pressure 168/73 H 04/29/20 20:49 Pulse Oximetry 97 04/29/20 20:49 Oxygen Delivery Method Room Air 04/29/20 20:49 Oxygen Flow Rate 0 04/29/20 20:49 Pain Level 5 04/29/20 20:52 Lab/Test Results Lab/Test Results: Laboratory Tests Range/Units 04/29/20 21:00 Ethyl Alcohol (<3) mg/dL 267.5 Procedures Laceration Laceration 1: Site: lip Size (cm): 2 Description: irregular and involves [place] border Depth: simple, single layer Local Anesthetic: Lidocaine 1% Amount of anesthesia used (mL): 1 Pre-repair: wound explored and irrigated extensively Skin layer closed with: nylon and vicryl Size (cm): 5-0 Number of sutures: 6 Technique: simple, interrupted Laceration 2: Site: face Side (If applicable): right Size (cm): 2.5 Description: linear Depth: simple, single layer Local Anesthetic: Lidocaine 1% Amount of anesthesia used (mL): 3 Pre-repair: wound explored and irrigated extensively Skin layer closed with: other (prolene) Size (cm): 5-0 Number of sutures: 9 Technique: simple, interrupted
--- NOTE | 2020-04-29 21:38 | NUR.NOTE ---
Nursing Note: Patient yelling in room, stating My fucking head is hurting, I need something for pain. I attempted to explain that we are waiting for CT results, but patient stated, I don't give a fuck, I am about ready to fucking leave. Notified .
--- NOTE | 2020-04-29 21:48 | DI.VRAD_ITS ---
PROCEDURE INFORMATION: Exam: CT Head Without Contrast Exam date and time: 04/29/2020 9:02 PM Age: 65 years old Clinical indication: Other: Fall, altered; Patient HX: Fell forward onto stairs, upper lip lac/rt gnosticism lac TECHNIQUE: Imaging protocol: Computed tomography of the head without contrast. COMPARISON: No relevant prior studies available. 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 Ventricles: Normal. No ventriculomegaly. Bones/joints: See facial CT report for facial fractures. Sinuses: Visualized sinuses are unremarkable. No fluid levels. Mastoid air cells: Visualized mastoid air cells are well aerated. Soft tissues: Unremarkable. IMPRESSION: 1. No intracranial hemorrhage or skull fracture. 2. See facial CT report for facial fractures. PROCEDURE INFORMATION: Exam: CT Maxillofacial Without Contrast Exam date and time: 04/29/2020 9:02 PM Age: 65 years old Clinical indication: Other: Fall, altered; Patient HX: Fell forward onto stairs, upper lip lac/rt gnosticism lac TECHNIQUE: Imaging protocol: Computed tomography images of the face without contrast. COMPARISON: No relevant prior studies available. FINDINGS: Orbits: No injury of the intraorbital contents. Bones/joints: Anterior, lateral and posterior right maxillary sinus wall fractures with intra sinus hemorrhage. Acute fracture of the right zygomatic arch. Acute fracture in the lateral and inferior right orbital farnsworth. Nasal bone fracture. Sinuses: Normal. No air-fluid levels. Soft tissues: No entrapment of the periorbital muscles. IMPRESSION: 1. Anterior, lateral and posterior right maxillary sinus wall fractures with intra sinus hemorrhage. 2. Acute fracture of the right zygomatic arch. 3. Acute fracture in the lateral and inferior right orbital farnsworth. 4. No entrapment of the periorbital muscles. 5. No injury of the intraorbital contents. 6. Nasal bone fracture. PROCEDURE INFORMATION: Exam: CT Cervical Spine Without Contrast Exam date and time: 04/29/2020 9:02 PM Age: 65 years old Clinical indication: Other: Fall, altered; Patient HX: Fell forward onto stairs, upper lip lac/rt gnosticism lac TECHNIQUE: Imaging protocol: Computed tomography images of the cervical spine without contrast. COMPARISON: No relevant prior studies available. FINDINGS: Vertebrae: No acute fracture. Normal alignment. Discs/Spinal canal/Neural foramina: Degenerative disc space narrowing at C5-C6 and C6-C7 with associated endplate spurring. Posterior disc osteophyte complexes at C5 and C5-C6 and C6-C7 causes bilateral neural foraminal narrowing. Degenerative changes within the atlantoaxial joint. Multilevel facet arthrosis. Soft tissues: Unremarkable. Lungs: Centrilobular pulmonary emphysema. Other findings: Arthrosclerosis. IMPRESSION: Degenerative changes. No acute finding. Dictated and Authenticated by: Solis Marinelli MD. Ordering:YVONNE Neville MD
[2020-04-29] MEDS: Acetaminophen 325 MG TAB 650 MG PO (22:00)
[2020-04-29 22:55] LABS: Abs Immature Grans 0.08 10^3/uL (0.0-0.06); Absolute Lymphocyte Count 2.25 10^3/uL (1.2-3.4); Absolute Monocyte Count 1.03 10^3/uL (0.1-0.8); Basophils % 0.8; Eosinophils % 6.9; HCT 47.3 % (40.0-50.0); HGB 15.7 g/dL (13.5-17.5); Immature Grans % 0.6; Lymphocytes % 15.6; MCH 30.7 pg (27.0-33.0); MCHC 33.2 % (32.0-36.0); MCV 92.6 fL (80-95); MPV 9.2 fL (8.0-11.0); Monocytes % 7.1; Nucleated RBC 0 %; Platelet Count 261 10^3/uL (130-400); RBC 5.11 10^6/uL (4.36-5.78); RDW 14.8 % (11.8-14.1); RDW-SD 50.7 fL; WBC 14.45 10^3/uL (4.4-10.8)
[2020-04-29] MEDS: Lactated Ringers 1,000 ML 150 ML IV (22:57)
[2020-04-29] MEDS: ceFAZolin 1 GM/50 ML BAG IVPB (22:57)
[2020-04-29 22:58] LABS: Absolute Basophil Count 0.12 10^3/uL (0.0-0.2); Absolute Neutrophil Count 9.97 10^3/uL (1.2-6.7)
[2020-04-30] MEDS: oxyCODONE 5 MG TAB PO (00:02)
== END 2020-04-30 00:10 | disposition home or self-care (01) ==
PROVIDERS: Emergency Provider Student in an Organized Health Care Education/Training Program; PCP Nurse Practitioner
DX: S02.40EA Zygomatic fracture, right side, initial encounter for closed fracture (principal); S02.2XXA Fracture of nasal bones, initial encounter for closed fracture; S02.31XA Fracture of orbital floor, right side, initial encounter for closed fracture; S02.841A Fracture of lateral orbital wall, right side, initial encounter for closed fracture; S02.40CA Maxillary fracture, right side, initial encounter for closed fracture; S01.81XA Laceration without foreign body of other part of head, initial encounter; S01.511A Laceration without foreign body of lip, initial encounter; W10.8XXA Fall (on) (from) other stairs and steps, initial encounter; F10.120 Alcohol abuse with intoxication, uncomplicated; Y90.8 Blood alcohol level of 240 mg/100 ml or more; J44.9 Chronic obstructive pulmonary disease, unspecified; F17.210 Nicotine dependence, cigarettes, uncomplicated; I10 Essential (primary) hypertension
CPT/HCPCS: 12013; 36415; 80053; 96361; 96365; 99284; 70450; 70486; 72125; 80320; 85025; 99285; J0690

== ENCOUNTER 2020-06-02 11:19 | Outpatient (REF) | payer MEDICAID, SELFPAY ==
[2020-06-02 20:19] LABS: ALT 33 U/L (16-63); AST 22 U/L (15-37); Albumin 3.9 g/dL (3.4-5.0); Alkaline Phosphatase 85 U/L (46-116); Anion Gap 8.5 mmol/L (3-11); BUN 27 mg/dL (7-18); Bilirubin, Total 0.2 mg/dL (0.2-1.0); CO2 26.5 mmol/L (21.0-32.0); Calcium 9.3 mg/dL (8.5-10.1); Calculated LDL 94 mg/dL (<100); Chloride 103 mmol/L (98-107); Cholesterol 167 mg/dL (<200); Glucose 113 mg/dL (74-106); HDL Cholesterol 46 mg/dL (40-60); Potassium 4.7 mmol/L (3.5-5.1); Sodium 138 mmol/L (136-145); Total Protein 6.9 g/dL (6.4-8.2); Triglyceride 139 mg/dL (<150)
== END 2020-06-02 11:39 ==
LOC: NCHCN 11:19
PROVIDERS: PCP Nurse Practitioner; Visit Provider Nurse Practitioner
DX: I10 Essential (primary) hypertension (principal); I25.10 Atherosclerotic heart disease of native coronary artery without angina pectoris
CPT/HCPCS: 80053; 80061

== ENCOUNTER 2020-06-22 00:52 | Outpatient (CLI) | payer MEDICAID, SELFPAY ==
--- NOTE | 2020-06-22 | DI.MRI_ITS ---
EXAM: MR BRAIN WO CLINICAL HISTORY: HEADACHE,R51,VERTIGO,R42,BALANCE PROBLEMS,R27.9. TECHNIQUE: Multiplanar multisequence MRI was performed. COMPARISON: No exams were available for comparison FINDINGS: MR examination of brain was performed according to the usual protocol. There is moderate generalized cerebral atrophy. There are scattered areas focal white matter signal abnormality seen in periventr icular and subcortical white matter bilaterally consistent with mild microvascular ischemic changes b ut not specific for that diagnosis. There is focal area of abnormal signal seen on diffusion-weighte d imaging in the high left frontal region, I cannot confirm low signal at this site on ADC mapping bu t the findings are suspicious for a tiny focal infarct. This is not clearly visible as a site of abn ormal signal on standard dark fluid FLAIR imaging but is visible on dir space imaging. No abnormality seen on susceptibility weighted imaging to suggest intracranial hemorrhage. No other focal signal abnormality. The orbital and temporal bone structures appear intact as does the pituita ry. There is normal flow void in the [id number] vasculature. IMPRESSION: Atrophy and mild micro vascular ischemic changes as described above. Question tiny acute or subacute left frontal cortical infarct. No other significant acute finding. If clinically indicated additional evaluation with contrast enhanced MR may be considered. DATA REPOSITORY:
== END 2020-06-22 01:12 ==
PROVIDERS: PCP Nurse Practitioner; Visit Provider Nurse Practitioner
DX: G31.89 Other specified degenerative diseases of nervous system (principal); R51.9 Headache, unspecified; R27.9 Unspecified lack of coordination
CPT/HCPCS: 70551

== ENCOUNTER 2020-07-21 01:00 | Outpatient (CLI) | payer MEDICAID, SELFPAY ==
--- NOTE | 2020-07-21 08:30 | DI.MRI_ITS ---
CLINICAL HISTORY: left frontal stroke, I63.9. TECHNIQUE: Multiplanar multisequence MRA of the brain was performed. COMPARISON: None. FINDINGS: Carotid Arteries: No aneurysm, occlusion or significant stenosis. Anterior Cerebral Arteries: Right: No aneurysm, occlusion or significant stenosis. Left: No aneurysm, occlusion or significant stenosis. Middle Cerebral Arteries: Right: No aneurysm, occlusion or significant stenosis. Left: No aneurysm, occlusion or significant stenosis. Posterior Cerebral Arteries: Right: No aneurysm, occlusion or significant stenosis. Left: No aneurysm, occlusion or significant stenosis. Vertebral Arteries: Right: No aneurysm, occlusion or significant stenosis. Left: No aneurysm, occlusion or significant stenosis. Basilar Artery: No aneurysm, occlusion or significant stenosis. IMPRESSION: No evidence of occlusion or significant stenosis. DATA REPOSITORY:
--- NOTE | 2020-07-21 08:30 | DI.MRI_ITS ---
EXAM: MR ANGIO NECK WO CLINICAL HISTORY: left frontal stroke, I63.9,. TECHNIQUE: Multiplanar multisequence MRA of the Neck was performed. COMPARISON: No exams were available for comparison FINDINGS: Common Carotid: Right: No dissection, occlusion or significant stenosis. Left: No dissection, occlusion or significant stenosis. External Carotid: Right: No evidence of occlusion or significant stenosis. Left: No evidence of occlusion or significant stenosis. Internal Carotid: Right: No dissection, occlusion or significant stenosis. Left: No dissection, occlusion or significant stenosis. Vertebral Artery: Right: No dissection, occlusion or significant stenosis. Left: No dissection, occlusion or significant stenosis. There is a dominant left vertebral artery. The visualized paraspinal soft tissues are unremarkable. IMPRESSION: No evidence of dissection, occlusion or significant stenosis. DATA REPOSITORY:
--- NOTE | 2020-07-21 12:43 | DI.US_ITS ---
APPROVED REPORT EXAM: Comprehensive 2D, Doppler, and color-flow Echocardiogram Patient Location: Out-Patient Band Scroll Saw Operator: Birgit Bueno RDCS (AE) Indications: CVA Echo Enhancing Agent Agent(s) / Amount(s) Used: Agitated Saline 30.0 cc Other Information Study Quality: Adequate Conclusion Left Ventricle : The left ventricle is normal size. The left ventricular systolic function is normal. The left ventricular ejection fraction is within the normal range. There is normal left ventricular wall thickness. There is normal LV segmental wall motion. The left ventricular diastolic function is normal. LVEF is 50%. Right Ventricle : The right ventricle is normal size. The right ventricular systolic function is norm al. The RVSP is 22.9mmHg. Atria : The left atrium size is normal. The right atrium size is normal. The interatrial septum is in tact with no evidence for an atrial septal defect. Saline bubble contrast intravenous injection does not demonstrate PFO. Mitral Valve : Mild mitral annular calcification. Mild to moderate mitral regurgitation. No evidence of mitral valve stenosis. Great Vessels : The aortic root is normal in size. Ascending aorta is not well visualized. Aortic arc h is not well visualized. IVC is normal in size and collapses >50% with inspiration. Please see remainder of study for further details. Wall motion Left Ventricle The left ventricle is normal size. The left ventricular systolic function is normal. The left ventric ular ejection fraction is within the normal range. There is normal left ventricular wall thickness. T here is normal LV segmental wall motion. The left ventricular diastolic function is normal. There is no ventricular septal defect visualized. LVEF is 50%. Right Ventricle The right ventricle is normal size. The right ventricular systolic function is normal. The RVSP is 22 .9mmHg. Atria The left atrium size is normal. The right atrium size is normal. The interatrial septum is intact wit h no evidence for an atrial septal defect. Saline bubble contrast intravenous injection does not demo nstrate PFO. Aortic Valve The Aortic valve is sclerotic. Aortic valve is trileaflet. There is no aortic valvular stenosis. No a ortic regurgitation is present. Mitral Valve Mild mitral annular calcification. No evidence of mitral valve stenosis. Mild to moderate mitral regu rgitation. Tricuspid Valve The tricuspid valve is normal in structure. There is no tricuspid valve stenosis. Trace tricuspid reg urgitation. Pulmonic Valve Pulmonic valve is grossly normal in structure. There is no pulmonic valvular stenosis. There is no pu lmonic valvular regurgitation. Great Vessels The aortic root is normal in size. Ascending aorta is not well visualized. Aortic arch is not well vi sualized. IVC is normal in size and collapses >50% with inspiration. Pericardium There is no pericardial effusion. 2D Dimensions IVSD d PLAX 0.97 cm M: 0.6-1.2 LV Vol A2C d MOD 122.4 mL LVPW d PLAX 0.92 cm M: 0.6 - 1.2 LV Vol A4C d MOD 111.4 mL LVID d PLAX 4.43 cm M: 4.2 - 5.8 LA vol/ BSA A2C s A-L 24.1 mL/m2 LVDs 3.25 cm M: 2.5 - 4.0 LA vol/ BSA A4C s A-L 17.9 mL/m2 Ao Root d 2.83 cm M: 3.1 - 3.7 LA Vol/ BSA Biplane s A-L 23.2 mL/m2 RA Area A4C 7.50 cm2 LA Area A4C s MOD 11.99 cm2 RA Vol/ BSA A4C s A-L 8.7 mL/m2 LA Area A2C s MOD 15.51 cm2 LV EF Teichholz 51.8 % LV EF A4C MOD 52.9 % LVEF (Roe's) 50.16 % M: 52 - 72 LV EF A2C MOD 50.7 % LV Volume 90.87 mL M: 62 - 150 LV EF Biplane MOD 50.2 % LV Volume Index 49.11 mL/m2 M: 34 - 74 SV 59.26 mL LV Vol Biplane MOD 118.2 mL SV Index 31.89 mL/m2 FS 26.35 % M-Mode TAPSE 2.07 cm (M/F) >1.7 LV Diastology MV E' medial 0.048 (>0.07 m/s) E/A Ratio 0.8 LV E/e MED 11.20 (<14) MV E Vmax 0.54 (0.4-1.3 m/s) MV E' lateral 0.072 (>0.1 m/s) MV A Vmax 0.65 (0.4-1.3 m/s) LV E/e LAT 7.40 (<14) MV E/A Ratio 0.78 MV E/E' medial 11.22 MV E/E' lateral 7.43 Aortic Valve LVOT Area 3.36 cm2 AoV Area Vmax 2.75 cm2 LVOT Vmax 0.79 m/s AoV Area/ BSA (Vmax) 1.48 cm2/m2 LVOT Mean Marlon. 0.52 m/s BETH Mean Marlon. 2.48 cm2 LVOT Peak Grad 2.5 mmHg BETH Mean Marlon. Index 1.33 cm2/m2 LVOT Mean Grad 1.3 mmHg LVOT VTI 0.157 m LVOT Diam s 2.05 cm AoV Vmax 0.97 m/s Velocity Ratio 0.81 AoV Mean Marlon. 0.71 m/s AoV Peak Grad 3.7 mmHg LVOT SV 52.69 mL AoV Mean Grad 2.2 mmHg AoV VTI 0.197 m AoV Area VTI 2.67 cm2 AoV Area/ BSA (VTI) 1.44 cm/m2 Mitral Valve MV DT 209 (160-240 msec) MR Vmax 5.35 m/s MV PHT 60 msec MR VTI 1.976 m MV Area PHT 3.64 cm2 MR Peak Grad 114.6 mmHg MV VTI 0.203 m MR Mean Grad 76.8 mmHg MV VTI Annulus 0.206 m MR PISA Radius 0.38 cm MV Area VTI 2.63 (4.0-6.0 cm2) MR EROA 0.06 cm2 MR Aliasing Velocity 0.35 m/s MR PISA 0.89 cm2 Pulmonary Valve PV Vmax 0.76 (0.5-1.5 m/s) RVOT Peak Gr. 0.98 mmHg PV Peak Grad 2.3 mmHg RVOT Mean Gr. 0.55 mmHg PV Mean Grad 1.2 mmHg RVOT VTI 0.107 m PV VTI 0.148 m RVOT Vmax 0.50 m/s Tricuspid Valve TR Peak Grad 19.9 mmHg TR Vmax 2.23 m/s RA Pressure 3.00 mmHg RVSP (TR) 22.9 mmHg
== END 2020-07-21 01:20 ==
PROVIDERS: PCP Nurse Practitioner; Visit Provider Psychiatry & Neurology Neurology
DX: I63.9 Cerebral infarction, unspecified (principal); I34.0 Nonrheumatic mitral (valve) insufficiency
CPT/HCPCS: 70544; 70547; 93306

== ENCOUNTER 2020-07-28 04:46 | Outpatient (CLI) | payer MEDICAID, SELFPAY ==
--- NOTE | 2020-08-30 08:29 | W.CARDEVENT ---
Date of service: 08/30/20 Time of Service: 08:29 Cardiac Event Recorder Referring Provider:: jolynn santo Indications:: cva Cardiac Event Note: This is a 30-day event monitor ordered for indication of CVA. ?The patient was in normal sinus rhythm for the majority of the recording with an average heart rate of 77 bpm. ?There were 0 critical and 0 serious events. ?There was 1 patient triggered event which was associated with sinus rhythm. ?There were 0 episodes of atrial fibrillation, no pauses greater than 3 seconds and no evidence of high degree heart block.
== END 2020-07-28 05:06 ==
PROVIDERS: PCP Nurse Practitioner; Visit Provider Psychiatry & Neurology Neurology
CPT/HCPCS: 93270

== ENCOUNTER 2020-12-10 13:43 | Emergency (ER) | payer MEDICAID, SELFPAY ==
[2020-12-10 13:59] VITALS: BP 146/81; PULSE 69; RESP 18; TEMP 36.6
--- NOTE | 2020-12-10 14:00 | DI.RAD_ITS ---
EXAM: XR RIBS LT W PA LAT CHEST CLINICAL HISTORY: Fall 3 days ago, left rib pain TECHNIQUE: COMPARISON: CR XR CHEST 2V PA LATERAL from 07/15/2018 FINDINGS: PA and lateral views of the chest and 4 additional views of the ribs were obtained. Heart is not enl arged and the lungs are clear and well expanded. No pleural effusion. There are apparent old upper thoracic vertebral body compression fractures. These were present previous examination of 2018. There are probable acute fractures of the anterior aspects of what appear to be the left 7th 8th and 9th ribs, essentially nondisplaced. No other significant abnormality seen. IMPRESSION: RADIATION DOSE DELIVERED: Total DLP
--- OUTSIDE RECORDS SUMMARY | 2020-12-10 14:00 | XMS_ITS ---
:1955 Author Care Team Providers Name Role Phone [facility] Primary Care Provider [phone] DANNA CASAS Primary Care Provider [phone] Allergies Code Code System Name Reaction Severity Status Onset 2001 RxNorm Carbamazepine ? ? Active ? 41679 RxNorm Simvastatin ? ? Active ? Medications Name Status Start Date Stop Date ? ? aspirin 81 mg chewable tablet Active ? No t available Chew 1 tablet every day by oral route. CertaVite Senior Active ? Not available citalopram 20 mg tablet Active ? Not avai lable Take 1 tablet every day by oral route. docusate sodium 100 mg tablet Active ? No t available Take 1 tablet twice a day by oral route as needed. folic acid 1 mg tablet Active ? Not avail able Take 1 tablet every day by oral route. lisinopril 10 mg tablet Active ? Not avai lable Take 1 tablet every day by oral route. loratadine 10 mg tablet Active ? Not avai lable Take 1 tablet every day by oral route. meloxicam 15 mg tablet Active ? Not avail able Take 1 tablet every day by oral route. omeprazole 20 mg capsule,delayed release Active ? Not available Take 1 capsule every day by oral route. ProAir HFA 90 mcg/actuation aerosol inhaler Active ? Not available INHALE 1-2 PUFFS (180 MCG) BY INHALATION ROUTE EVERY 4-6 HOURS NEEDED ranitidine 150 mg tablet Active ? Not pasha ilable Take 1 tablet every day by oral route. Spiriva with HandiHaler 18 mcg and inhalation capsules Active ? Not available Inhale 1 capsule every day by inhalation route. Stiolto Respimat 2.5 mcg-2.5 mcg/actuation solution for inhalati on Active ? Not available Inhale 2 puffs every day by inhalation route. Symbicort 160 mcg-4.5 mcg/actuation HFA aerosol inhaler Active ? Not available Inhale 2 puffs twice a day by inhalation route. trazodone 100 mg tablet Active ? Not avai lable Take 1 tablet every day by oral route at bedtime. Problems Name Status Onset Date Source ? Mixed Anxiety and Depressive Disorder Active 06/03/2019 ? Alcohol Abuse Active 06/03/2019 ? Tobacco User Active 06/03/2019 ? Hypertensive Disorder Active 06/03/2019 ? Coronary Arteriosclerosis Active 06/03/2019 ? Allergic Rhinitis Active 06/03/2019 ? Chronic Obstructive Lung Disease Active 06/03/2019 ? Gastroesophageal Reflux Disease Active 06/03/2019 ? Eczema Active 06/03/2019 ? Sleep Apnea Active 06/03/2019 ? Procedures Date Name Performed by ? 04/02/2020 LDCT, Chest, for Lung Cancer Xray [facility] [address] [place], [place] [address] ([address]) 04/16/2020 LDCT, Chest, for Lung Cancer Xray [facility] [address] [place], [place] [address] (Work [address]) Results Lab Results None recorded. Past Encounters 04/16/2020 Chronic Obstructive Lung Disease; Smoker Mai Sebastian MD: [address] [place] [address] Dr torres [address] [phone], Ph. 04/02/2020 Chronic Obstructive Lung Disease; Smoker Mai Sebastian MD: [address] [place] [address] Dr brian Alfonso [address] [place] [phone], Ph. Social History Tobacco Smoking Status Current Every Day Smoker Notes: 4- 5 daliy Vaccine List Vaccine Type influenza, injectable, quadrivalent 10/29/2019 pneumococcal polysaccharide PPV23 04/03/2014 Plan of Care Reminders Provider Appointments None ? ? recorded. Lab None ? ? recorded. Referral None ? ? recorded. Procedures None ? ? recorded. Surgeries None ? ? recorded. Imaging None ? ? recorded. Vitals 04/16/2020 02:15PM Office 30 Height Weight BMI Blood Pressure 182.88 cm 63.5 kg 19 kg/m2 124/64 mm[Hg] 04/02/2020 10:15AM Office 15 Height Weight BMI Blood Pressure 182.88 cm 63 kg 18.8 kg/m2 148/80 mm[Hg]
--- NOTE | 2020-12-10 14:07 | W.ED.GENAD ---
Discharge Plan Disposition Patient Disposition: HOME Condition: Stable Discharge Details Clinical Impression: Rib fractures Primary Care Provider: Ness Diaz ED Provider: Rita Hankins Home Meds and New Rx's Prescriptions: New lidocaine 5 % adhesive patch,medicated 1 patch topical DAILY 5 Days Qty: 5 RF: 0 Continued meloxicam 15 mg tablet 15 mg PO DAILY RF: 0 clopidogrel [Plavix] 75 mg tablet 75 mg PO DAILY Qty: 30 RF: 5 Stiolto Respimat 2.5-2.5 mcg/actuation mist 2 puff inhalation DAILY RF: 0 multivitamin with iron Tablet 1 tab PO DAILY RF: 0 gabapentin 600 mg tablet 600 mg PO BID Qty: 180 RF: 3 budesonide-formoterol [Symbicort] 80-4.5 mcg/actuation HFA aerosol inhaler 2 puff inhalation BID RF: 0 Nurtec ODT 75 mg tablet,disintegrating 75 mg PO ONCE PRN (Reason: migraine headache) Qty: 8 RF: 5 lisinopril 10 mg tablet 10 mg PO DAILY Qty: 90 RF: 0 loratadine 10 mg tablet 10 mg PO DAILY Qty: 90 RF: 0 citalopram 20 mg tablet 20 mg PO DAILY Qty: 90 RF: 0 omeprazole 20 mg capsule,delayed release(DR/EC) 20 mg PO DAILY Qty: 90 RF: 0 albuterol sulfate [ProAir HFA] 90 mcg/actuation Hfa Aerosol Inhaler 2 puff Inhalation Q4H PRNRF: 0 atorvastatin 20 mg Tablet 20 mg PO DAILY RF: 0 lamotrigine [Lamictal] 25 mg tablet 75 mg PO BID RF: 0 quetiapine 50 mg tablet 100 mg PO QHS RF: 0 fluticasone propionate [Flonase Allergy Relief] 50 mcg/actuation spray,suspension 2 spray INTRANASAL BID RF: 0 aspirin 81 mg tablet,delayed release (DR/EC) 81 mg PO DAILY RF: 0 Discharge Instructions Instructions: Rib Fracture (ED) Additional Instructions: X-rays today show nondisplaced fractures of the seventh eighth and ninth rib on the left side. No evidence for pneumonia at this time. Take medications as directed. Patient regarding the left side of your rib cage with a pillow while coughing or moving around. You may apply ice and heat. Use lidocaine patches as directed. Follow up with primary care provider in 3-5 days. Return to ED sooner if any worsening or concerns. Increase oral fluids. Please take Tylenol or Ibuprofen with food every 4-6 hours as needed for pain and swelling. Return or be seen sooner for any worsening shortness of breath, fever, chills, worsening productive cough, abdominal pain, problems urinating or any concerns. Referrals: Ness Diaz [Primary Care Provider] - Discharge Data Discharge Date/Time-TO BE ENTERED AT DEPARTURE: 12/10/20 15:56 Medical Decision Making 65-year-old male presents to the ER chief complaint of left-sided rib pain status post a fall onto step approximately 3 days ago. Patient states that he lost his balance and fell onto his left side. He is reporting some left-sided rib pain. He states pain is worse with deep breathing and movement. He does have a productive cough with green-echeverria sputum. He states that he does have a chronic cough due to COPD. He is a current smoker. He reports increased pain and feeling of popping. He denies any nausea vomiting abdominal pain, diarrhea. He denies any loss of consciousness or hitting his head no neck or back pain. Past medical history includes hypertension, GERD, COPD, coronary artery disease, bipolar 1 disorder, chronic pain, anxiety, alcohol abuse. EXAM: XR RIBS LT W PA LAT CHEST CLINICAL HISTORY: Fall 3 days ago, left rib pain TECHNIQUE: COMPARISON: CR XR CHEST 2V PA LATERAL from 07/15/2018 FINDINGS: PA and lateral views of the chest and 4 additional views of the ribs were obtained. Heart is not enlarged and the lungs are clear and well expanded. No pleural effusion. There are apparent old upper thoracic vertebral body compression fractures. These were present previous examination of 2018. There are probable acute fractures of the anterior aspects of what appear to be the left 7th 8th and 9th ribs, essentially nondisplaced. No other significant abnormality seen. 1507: Patient re-evaluation, patient states he is still in some pain, he is resting upon entering the room breathing eupneic. Lidocaine patch was placed and ordered. Will give patient 5 mg oxycodone here in the department x1 patient does state that he has a ride home. And will give 3 tablets to go to be used for severe pain. Discussed strict return instructions and home care patient verbalizes understanding. Patient made hemodynamically stable alert and oriented throughout stay. This text was generated using [employer] dictation system, please disregard any oddities of phrase or misspellings. HPI General Mode of arrival: ambulatory. Date/Time Provider Initiated Documentation: 12/10/20 14:06. Limitations to Documentation: no limitations. Information obtained by: patient. HPI Narrative: 65-year-old male presents to the ER chief complaint of left-sided rib pain status post a fall onto step approximately 3 days ago. Patient states that he lost his balance and fell onto his left side. He is reporting some left-sided rib pain. He states pain is worse with deep breathing and movement. He does have a productive cough with green-echeverria sputum. He states that he does have a chronic cough due to COPD. He is a current smoker. He reports increased pain and feeling of popping. He denies any nausea vomiting abdominal pain, diarrhea. He denies any loss of consciousness or hitting his head no neck or back pain. Past medical history includes hypertension, GERD, COPD, coronary artery disease, bipolar 1 disorder, chronic pain, anxiety, alcohol abuse. Related Data Home Medications Medication Instructions Recorded Confirmed albuterol sulfate [ProAir HFA] 2 puff INHALATION Q4H PRN 06/14/18 12/10/20 citalopram 20 mg tablet 20 mg PO DAILY #90 tab 08/19/18 12/10/20 lisinopril 10 mg tablet 10 mg PO DAILY #90 tab 08/19/18 12/10/20 loratadine 10 mg tablet 10 mg PO DAILY #90 tab 08/19/18 12/10/20 omeprazole 20 mg capsule,delayed 20 mg PO DAILY #90 cap 08/19/18 12/10/20 release meloxicam 15 mg tablet 15 mg PO DAILY 01/27/19 12/10/20 atorvastatin 20 mg PO DAILY 04/29/20 12/10/20 clopidogrel 75 mg tablet 75 mg PO DAILY #30 tab 07/07/20 12/10/20 tiotropium 2.5 mcg-olodaterol 2.5 2 puff INHALATION DAILY 08/04/20 12/10/20 mcg/actuation mist for inhalation gabapentin 600 mg tablet 600 mg PO BID #180 tab 10/06/20 12/10/20 lamotrigine 25 mg tablet 75 mg PO BID tab 10/06/20 12/10/20 multivitamin with iron 1 tab PO DAILY 10/06/20 12/10/20 quetiapine 50 mg tablet 100 mg PO QHS tab 10/06/20 12/10/20 budesonide-formoterol HFA 80 2 puff INHALATION BID 11/03/20 12/10/20 mcg-4.5 mcg/actuation aerosol inhaler fluticasone propionate 50 2 spray INTRANASAL BID ml 11/03/20 12/10/20 mcg/actuation nasal spray,suspension rimegepant 75 mg disintegrating 75 mg PO ONCE PRN #8 tab 11/03/20 12/10/20 tablet aspirin 81 mg PO DAILY 12/10/20 12/10/20 lidocaine 1 patch TOPICAL DAILY 5 Days #5 ea 12/10/20 Previous Rx's Medication Instructions Recorded citalopram 20 mg tablet 20 mg PO DAILY #90 tab 08/19/18 lisinopril 10 mg tablet 10 mg PO DAILY #90 tab 08/19/18 loratadine 10 mg tablet 10 mg PO DAILY #90 tab 08/19/18 omeprazole 20 mg capsule,delayed 20 mg PO DAILY #90 cap 08/19/18 release clopidogrel 75 mg tablet 75 mg PO DAILY #30 tab 07/07/20 gabapentin 600 mg tablet 600 mg PO BID #180 tab 10/06/20 rimegepant 75 mg disintegrating 75 mg PO ONCE PRN #8 tab 11/03/20 tablet lidocaine 1 patch TOPICAL DAILY 5 Days #5 ea 12/10/20 Allergies Allergy/AdvReac Type Severity Reaction Status Date / Time carbamazepine Allergy Intermediate Hives Unverified 12/10/20 14:04 simvastatin Allergy Unverified 12/10/20 14:04 General Stated Complaint: Chest/Rib GEMA: 3 Review of Systems Narrative: Constitutional: Negative for weight loss, alert and oriented, well groomed, normal body habitus, appears comfortable. HEENT: Denies trauma, headaches, blurry vision, nasal discharge, sore throat, trouble swallowing. Chest: Denies chest pain, palpitations, irregular rhythm, hypertension. Respiratory: Denies hemoptysis. Positive left-sided rib pain status post fall, productive cough history of COPD is a smoker. GI: Denies abdominal pain, nausea, vomiting, diarrhea, constipation. : Denies dysuria, flank pain, rectal bleeding. Neuro: Denies dizziness, blurry vision, weakness, syncope, headache or facial numbness. Hematologic: Denies easy bruising, intolerance to heat or cold, hair loss. REPLACED BY [facility] Medical History Alcohol abuse In remission Allergic rhinitis Anxiety with depression Bipolar 1 disorder Chronic pain COPD (chronic obstructive pulmonary disease) Coronary artery disease Eczema GERD (gastroesophageal reflux disease) H/O onychomycosis HTN (hypertension) Insomnia Smoker Spine injury Surgical History History of coronary artery stent placement History of tonsillectomy Rotator Cuff Repair (06/30/16) RIGHT Family History Other Heart disease Hypertension Social History Smoking/Tobacco Use Status: Current every day Tobacco Type: cigarettes Smoking packs per day: 2 Smoking cigarettes per day: 40.0 Smoking risk assessment performed?: Yes Alcohol Intake: current Alcohol Intake frequency: a few times a month Alcohol type: beer Drug use: Occasionally Substance use type: marijuana Household members: none Housing: other Details: mobil home Number of Children: 1 current occupation: Disabled Pets and animals: No What type of physical activity do you participate in: walking Seatbelt use: sometimes Do you feel safe at home: Yes Do you feel safe in your relationship?: Yes Exam Narrative Exam Narrative: Constitutional: Alert and oriented x3. Appears stated age. Normal body habitus. Head: Normocephalic, no trauma. Eyes: Pupils PERRLA, Red reflex noted, EOM's intact. Eyelids symmetrical without lesions, discharge, or swelling. ENT: Bilateral TM's WNL, External ear normal to inspection, no mastoid TTP, swelling, or erythema, Nasal turbinates WNL, no nasal discharge. Normal dentition, Posterior pharynx WNL, no exudate. Chest: RRR, Normal S1, S2, distal pulses intact. Tender to palpation left sided chest wall, no ecchymosis or contusions noted. Resp: Lungs diminished bilaterally, no wheezes, rales, or rhonchi. Musculoskeletal: Normal gait, 5/5 strength to all four extremities. Skin: Capillary refill less than 2 sec. does have some old healing bruises noted to his left upper extremity. Neurologic: Cranial nerves II-XII intact. Alert and oriented x 3. DTR's intact. Hematologic/Lymphatic: No ecchymosis, no lymphadenopathy. Course Vital Signs Vital signs: Vital Signs Temperature 36.6 C 12/10/20 13:59 Pulse 69 12/10/20 13:59 Respiratory Rate 18 12/10/20 13:59 Blood Pressure 146/81 H 12/10/20 13:59 Temperature 36.6 C 12/10/20 13:59 Temperature Source Oral 12/10/20 13:59 Pulse 69 12/10/20 13:59 Respiratory Rate 18 12/10/20 13:59 Respiratory Effort Non-Labored 12/10/20 14:05 Blood Pressure 146/81 H 12/10/20 13:59 Pain Level 8 12/10/20 13:59
[2020-12-10] MEDS: Lidocaine 5% Patch 1 PATCH TP (14:42)
[2020-12-10] MEDS: oxyCODONE 5 MG TAB PO (15:54)
== END 2020-12-10 15:56 | disposition home or self-care (01) ==
PROVIDERS: Emergency Provider Registered Nurse Emergency; PCP Nurse Practitioner
DX: S22.42XA Multiple fractures of ribs, left side, initial encounter for closed fracture (principal); W01.198A Fall on same level from slipping, tripping and stumbling with subsequent striking against other object, initial encounter
CPT/HCPCS: 99283; 71046; 71100; 99284

== ENCOUNTER 2021-01-25 13:22 | Outpatient (REF) | payer MEDICAID, SELFPAY ==
[2021-01-25 18:51] LABS: ESR 6 mm//hr (0-20)
[2021-01-25 18:53] LABS: HCT 48.9 % (40.0-50.0); HGB 16.3 g/dL (13.5-17.5); MCH 31.2 pg (27.0-33.0); MCHC 33.3 % (32.0-36.0); MCV 93.7 fL (80-95); Platelet Count 247 10^3/uL (130-400); RBC 5.22 10^6/uL (4.36-5.78); RDW 14.2 % (11.8-14.1); RDW-SD 49.1 fL
[2021-01-25 19:30] LABS: ALT 44 U/L (16-63); AST 27 U/L (15-37); Alkaline Phosphatase 90 U/L (46-116); Anion Gap 9.4 mmol/L (3-11); BUN 15 mg/dL (7-18); Bilirubin, Total 0.2 mg/dL (0.2-1.0); CO2 29.6 mmol/L (21.0-32.0); CREATININE 0.9 mg/dL (0.70-1.30); Calcium 9.5 mg/dL (8.5-10.1); Chloride 102 mmol/L (98-107); Glucose 100 mg/dL (74-106); Potassium 4.9 mmol/L (3.5-5.1); Sodium 141 mmol/L (136-145); Total Protein 7.5 g/dL (6.4-8.2); Vitamin B12 528 pg/mL (193-986)
[2021-01-27 10:54] LABS: Lyme Ab w Rflx to Lyme Confirm Negative (Negative)
[2021-01-27 21:39] LABS: Anaplasma phagocytophilum Negative (Negative); B. miyamotoi PCR Negative (Negative); Babesia divergens/MO-1 Negative (Negative); Babesia duncani Negative (Negative); Babesia microti Negative (Negative); Ehrlichia chaffeensis Negative (Negative); Ehrlichia ewingii/canis Negative (Negative); Ehrlichia muris eauclairensis Negative (Negative)
== END 2021-01-25 13:23 | disposition home or self-care (01) ==
LOC: NCHCN 13:22
PROVIDERS: PCP Nurse Practitioner; Visit Provider Nurse Practitioner Family
DX: R26.89 Other abnormalities of gait and mobility (principal); R51.9 Headache, unspecified; M25.59 Pain in other specified joint; F10.10 Alcohol abuse, uncomplicated; J44.9 Chronic obstructive pulmonary disease, unspecified
CPT/HCPCS: 80053; 85027; 85652; 87798; 82607; 86618

== ENCOUNTER → 2021-05-12 10:53 | Outpatient (BNVA) | payer MEDICARE, MEDICAID, SELFPAY | PROVIDERS: PCP Nurse Practitioner; Referring Provider Nurse Practitioner; Visit Provider Psychiatry & Neurology Neurology | DX: F07.81 Postconcussional syndrome (principal); G43.009 Migraine without aura, not intractable, without status migrainosus; I63.9 Cerebral infarction, unspecified; R26.9 Unspecified abnormalities of gait and mobility; I10 Essential (primary) hypertension; J44.9 Chronic obstructive pulmonary disease, unspecified; F17.210 Nicotine dependence, cigarettes, uncomplicated | CPT/HCPCS: 99213 ==

== ENCOUNTER → 2021-07-14 11:09 | Outpatient (BNVA) | payer MEDICARE, MEDICAID, SELFPAY | PROVIDERS: PCP Nurse Practitioner; Referring Provider Nurse Practitioner; Visit Provider Psychiatry & Neurology Neurology | DX: F07.81 Postconcussional syndrome (principal); I63.9 Cerebral infarction, unspecified; R41.3 Other amnesia; R27.0 Ataxia, unspecified; I10 Essential (primary) hypertension; J44.9 Chronic obstructive pulmonary disease, unspecified; F17.210 Nicotine dependence, cigarettes, uncomplicated; F10.20 Alcohol dependence, uncomplicated | CPT/HCPCS: 99214 ==

== ENCOUNTER 2021-10-12 00:46 | Outpatient (CLI) | payer MEDICARE, MEDICAID, SELFPAY ==
--- NOTE | 2021-10-12 09:09 | DI.CTLCSR_ITS ---
Exam(s) CT CHEST LUNG CANCER SCREEN EXAM: CT CHEST LUNG CANCER SCREEN CLINICAL HISTORY: Screening for lung cancer,current smoker, f17.210. TECHNIQUE: Imaging Protocol: Low Dose Technique CONTRAST MATERIAL: None COMPARISON: CT CT CHEST LUNG CANCER SCREEN from 04/07/2020 CR XR RIBS LT W PA LAT CHEST from 12/10/2020 FINDINGS: CHEST: LUNGS: There is now increased pleural based infiltrate in the right upper lobe measuring 1.4 x 0.6 cm (series 2/image 27).. In the lateral aspect of the left upper lobe there is a pleural-based 3 ralf meter nodule which is unchanged. No new left lung findings. No pleural effusions on either side. N o new focal findings in the trachea and mainstem bronchi. MEDIASTINUM: There is no obvious hilar nor mediastinal adenopathy. CARDIAC: Heart size is normal. There is no pericardial effusion.Caliber of the thoracic aorta is wit hin normal limits. OTHER: OSSEOUS: Nonacute compression fractures the upper thoracic spine are again noted, unchanged. No new fractures evident. IMPRESSION: 1. Compared to the prior study of 04/07/2020 there has interval development a new pleural-based infil trate in the right upper lobe measuring 14 x 6 millimeters (series 2/image 27), not associated with p leural effusion nor overlying rib destruction but nevertheless concern given its new nature and appea juan. This requires close follow-up to rule out malignancy. 2. No pleural effusions nor obvious intrathoracic adenopathy 3. Lung RADS Cat 4A - Suspicious: Findings for which additional diagnostic testing and/or tissue samp ling recommended Lung-RADS 1.0 CATEGORIES: Category 0 - Prior chest CT exam(s) being located for comparison. Category 1 - Annual screening in 12 months. No nodules or definitely benign nodules. Category 2 - Annual screening in 12 months. Benign appearance. Nodules with low likelihood of becomin g active cancer. Category 3 - 6-month follow-up. Probably benign. Short-term follow-up suggested. Nodules with low lik elihood of becoming active cancer. Category 4A - 3-month follow-up and CT/PET if >8 mm in size. Suspicious finding. Findings which requi re additional testing. Category 4B - Findings which require additional testing and tissue sampling. Category 4X - Category 3 or 4 nodules with additional features or imaging findings that increases the suspicion of malignancy. Modifier S- Potentially clinically significant findings (non lung cancer) RADIATION DOSE DELIVERED: 86.24mGy.cm Total DLP CTDIvol DATA REPOSITORY: All CT scans at this facility are submitted to the National Radiology Data Registry (NRDR) Dose Index Registry (DIR) with the [employer] (ACR). RADIATION OPTIMIZATION: All CT scans at this facility use at least one of these dose optimization te chniques: automated exposure control; mA and/or kV adjustment per patient size (includes targeted exa ms where dose is matched to clinical indication); or iterative reconstruction.
== END 2021-10-12 01:06 ==
PROVIDERS: PCP Nurse Practitioner; Visit Provider Student in an Organized Health Care Education/Training Program
DX: Z12.2 Encounter for screening for malignant neoplasm of respiratory organs (principal); F17.210 Nicotine dependence, cigarettes, uncomplicated; R91.1 Solitary pulmonary nodule; R91.8 Other nonspecific abnormal finding of lung field
CPT/HCPCS: 71271

== ENCOUNTER 2022-01-11 19:58 | Outpatient (REF) | payer MEDICARE, MEDICAID, SELFPAY ==
[2022-01-11 14:20] LABS: Abs Immature Grans 0.03 10^3/uL (0.0-0.06); Absolute Basophil Count 0.12 10^3/uL (0.0-0.2); Absolute Eosinophil Count 0.77 10^3/uL (0.0-0.7); Absolute Lymphocyte Count 1.55 10^3/uL (1.2-3.4); Absolute Monocyte Count 0.62 10^3/uL (0.1-0.8); Absolute Neutrophil Count 5.48 10^3/uL (1.2-6.7); Basophils % 1.4; HCT 49.4 % (40.0-50.0); HGB 16.2 g/dL (13.5-17.5); Immature Grans % 0.4; Lymphocytes % 18.1; MCHC 32.8 % (32.0-36.0); MCV 94.5 fL (80-95); MPV 9.7 fL (8.0-11.0); Monocytes % 7.2; Neutrophils % 63.9; Platelet Count 245 10^3/uL (130-400); RBC 5.23 10^6/uL (4.36-5.78); RDW 13.7 % (11.8-14.1); RDW-SD 48.1 fL; WBC 8.57 10^3/uL (4.4-10.8)
[2022-01-11 14:32] LABS: ALT 24 U/L (16-63); AST 16 U/L (15-37); Albumin 4.2 g/dL (3.4-5.0); Alkaline Phosphatase 81 U/L (46-116); Anion Gap 7.3 mmol/L (3-11); BUN 14 mg/dL (7-18); Bilirubin, Total 0.3 mg/dL (0.2-1.0); CO2 29.7 mmol/L (21.0-32.0); CREATININE 0.9 mg/dL (0.70-1.30); Calcium 9.5 mg/dL (8.5-10.1); Chloride 100 mmol/L (98-107); Glucose 96 mg/dL (74-106); Potassium 4.4 mmol/L (3.5-5.1); Sodium 137 mmol/L (136-145); Total Protein 7.6 g/dL (6.4-8.2)
== END 2022-01-11 19:59 | disposition home or self-care (01) ==
LOC: NCHCN 19:58
PROVIDERS: PCP Nurse Practitioner; Visit Provider Nurse Practitioner Family
DX: I10 Essential (primary) hypertension (principal); I25.10 Atherosclerotic heart disease of native coronary artery without angina pectoris; F41.8 Other specified anxiety disorders; F17.209 Nicotine dependence, unspecified, with unspecified nicotine-induced disorders; J44.9 Chronic obstructive pulmonary disease, unspecified
CPT/HCPCS: 80053; 85025

== ENCOUNTER → 2022-01-12 10:40 | Outpatient (BNVA) | payer MEDICARE, MEDICAID, SELFPAY | PROVIDERS: PCP Nurse Practitioner; Visit Provider Psychiatry & Neurology Neurology | DX: G43.009 Migraine without aura, not intractable, without status migrainosus (principal); Z86.73 Personal history of transient ischemic attack (TIA), and cerebral infarction without residual deficits; Z79.02 Long term (current) use of antithrombotics/antiplatelets; F17.210 Nicotine dependence, cigarettes, uncomplicated; G62.9 Polyneuropathy, unspecified; J44.9 Chronic obstructive pulmonary disease, unspecified; I10 Essential (primary) hypertension; F07.81 Postconcussional syndrome; R41.3 Other amnesia | CPT/HCPCS: 99214 ==

== ENCOUNTER → 2022-01-27 00:48 | Outpatient (CLI) | payer MEDICARE, MEDICAID, SELFPAY ==
--- NOTE | 2022-01-27 08:13 | DI.CT_ITS ---
Exam(s) CT CHEST WO EXAM: CT CHEST WO CLINICAL HISTORY: F/U Growth of pleural nodule from 2020,R22.2. TECHNIQUE: Multi planar reconstructions were performed. CONTRAST MATERIAL: None COMPARISON: CT CHEST FOR PULMONARY EMBOLUS from 03/24/[address] CHEST LUNG CANCER SCREEN from 10/12/2021 FINDINGS: CHEST: LUNGS: The previously described 1.4 x 0.6 cm pleural based nodular infiltrate in the right upper lobe is unchanged.. There are no new additional right lung findings nor pleural effusion. This finding requires continued follow-up given that it was not evident on prior CT scan of 2015. Recommend follo w-up CT scan in 6 months, earlier if clinically indicated. In the opposite-left lung upper lobe the previously described laterally located 2-3 millimeter pleura l based nodule is also unchanged. There are no new additional focal left lung findings. No pleural effusions on either side. No new significant findings in trachea and mainstem bronchi. MEDIASTINUM: There is no obvious hilar nor mediastinal adenopathy. No axillary nor supraclavicular ad enopathy.The left thyroid lobe is larger than the right and may contain nodules. CARDIAC: Heart size is normal. There is no pericardial effusion.Heavy coronary artery calcification in the LAD noted. Caliber thoracic aorta is within normal limits. VISUALIZED UPPER ABDOMEN:No significant adrenal masses. OSSEOUS: There are 2 contiguous wedge compression fractures in the thoracic spine, probably T2 and T3 . These are unchanged from the previous study.. No lytic osseous lesions evident. IMPRESSION: 1. Stable appearance of the pleural based 14 x 6 millimeter nodular infiltrate in the right upper lob e and tiny 2-3 millimeter pleural base nodule in the left upper lobe. Unchanged from CT scan of 09/18. No new nodules, infiltrates, or pleural effusions. No intrathoracic adenopathy evident. 2. Recommend repeat CT scan in 6 months, earlier if clinically indicated. RADIATION DOSE DELIVERED: 411.32mGy.cm Total DLP DATA REPOSITORY: All CT scans at this facility are submitted to the National Radiology Data Registry (NRDR) Dose Index Registry (DIR) with the [employer] (ACR). RADIATION OPTIMIZATION: All CT scans at this facility use at least one of these dose optimization te chniques: automated exposure control; mA and/or kV adjustment per patient size (includes targeted exa ms where dose is matched to clinical indication); or iterative reconstruction.
== END ==
PROVIDERS: PCP Nurse Practitioner; Visit Provider Student in an Organized Health Care Education/Training Program
DX: R91.8 Other nonspecific abnormal finding of lung field (principal)
CPT/HCPCS: 71250

== ENCOUNTER → 2022-02-23 13:33 | Outpatient (BNVA) | payer MEDICARE, MEDICAID, SELFPAY | PROVIDERS: PCP Nurse Practitioner; Referring Provider Nurse Practitioner; Visit Provider Psychiatry & Neurology Neurology | DX: G43.909 Migraine, unspecified, not intractable, without status migrainosus (principal); F07.81 Postconcussional syndrome; Z86.73 Personal history of transient ischemic attack (TIA), and cerebral infarction without residual deficits; R41.3 Other amnesia; G62.9 Polyneuropathy, unspecified; R42 Dizziness and giddiness | CPT/HCPCS: 99214 ==

== ENCOUNTER 2022-06-05 11:16 | Inpatient (IN) | payer MEDICARE, MEDICAID, SELFPAY ==
[2022-06-05] VITALS (16 sets, daily range): BP systolic 70–135; BP diastolic 50–72; PULSE 62–87; RESP 8–21; TEMP 36.5–36.8; O2SAT 88–97
--- NOTE | 2022-06-05 11:30 | RT.EKG_ITS ---
APPROVED REPORT Exam: Resting ECG Reason for Exam: LOC Patient Location: E HR:74 bpm ECG Measurements Heart Rate 74 AXIS OH 114 P -63 QRSd 113 QRS 76 QT 423 T 80 QTc 471 Conclusion Sinus or ectopic atrial rhythm...P axis (-45,135) sinus versus ectopic atrial rhythm at 74, normal axis, diffuse T wave flattening, QTC 471, no WPW, no STEMI, nondiagnostic EKG
--- NOTE | 2022-06-05 11:30 | DI.CT_ITS ---
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 TECHNIQUE: Imaging Protocol: Axial computed tomography images with coronal and sagittal reformatted images were created and reviewed COMPARISON: CT CT HEAD CERV SPINE FACIAL WO from 04/29/2020 FINDINGS: Ventricles and Extra axial spaces: Normal in size and morphology for the patient's age. Hemorrhage: None. Cerebral parenchyma: Old area of encephalomalacia in the anterior right frontal lobe. Mild atrophy. No acute infarct mass. Midline shift: None. Brainstem/Cerebellum: Normal. Calvarium: Normal. Visualized Paranasal sinuses/Mastoids: Minimal mucous retention in the posterior right maxillary sinu s. Old fracture of the lateral wall of the right maxillary sinus Soft Tissues: Unremarkable. IMPRESSION: No acute intracranial process. RADIATION DOSE DELIVERED: 707.36mGy.cm Total DLP DATA REPOSITORY: All CT scans at this facility are submitted to the National Radiology Data Registry (NRDR) Dose Index Registry (DIR) with the [employer] (ACR). RADIATION OPTIMIZATION: All CT scans at this facility use at least one of these dose optimization te chniques: automated exposure control; mA and/or kV adjustment per patient size (includes targeted exa ms where dose is matched to clinical indication); or iterative reconstruction.
--- NOTE | 2022-06-05 11:41 | W.ED.GENAD ---
Discharge Plan Disposition Patient Disposition: [facility] INPATIENT Condition: Improving Discharge Details Chief Complaint: Orthopedic Clinical Impression: MAKI (acute kidney injury), Lumbar transverse process fracture Admit Date/Time: 06/05/22 14:25 Admit Provider: Andrew Yarbrough Attending Provider: Andrew Yarbrough Primary Care Provider: Ness Diaz ED Provider: Aranza Loyd Discharge Instructions Activity:: Activity as Tolerated Equipment/Supplies:: Walker Diet:: Low Sodium Discharge Orders Discharge Orders: Discharge Order (Routine); Ordered 06/09/22 Ordered By: Yin Macias Discharge Data Discharge Date/Time-TO BE ENTERED AT DEPARTURE: 06/05/22 15:19 Medical Decision Making Concern for dehydration, metabolic/electrolyte derangement, diverticulitis, kidney stone, pelvic fracture, bony pathology of the lumbar spine, rib fracture, pneumothorax, other. Low suspicion for ACS. Exam/history is not consistent with acute CVA, pulmonary embolism, acute aortic pathology, sepsis. Plan for IV placement, IV fluid hydration, screening labs, CT abdomen/pelvis, CXR, EKG. Labs reviewed, creatinine 5.9, CK 543, trop neg. imaging per radiology shows left transverse process fractures at L3 and L4. Discussed fractures with Dr. Flores, no acute intervention, pain management. Plan for admission for acute kidney injury, pain control. Medical Records Medical records reviewed: Yes I reviewed the patient's medical records. Imaging Data Radiologic Study: Attestation: I personally reviewed and interpreted this imaging study as follows: Radiologist's impression: Exam(s) CT LUMBAR SPINE RECONS CT ABDOMEN ? PELVIS WO EXAM:? CT ABDOMEN ? PELVIS WO CLINICAL HISTORY: ? trauma, left LLQ and left flank pain.? TECHNIQUE:? Imaging Protocol: Axial computed tomography images with coronal and sagittal reformatted images were created and reviewed. Oral:? no COMPARISON:? CT CT CHEST/ABD/PEL W from 06/14/2018 CR XR CHEST 2V PA ? LATERAL from 06/05/[address] LUMBAR SPINE RECONS from 06/05/2022 FINDINGS: ABDOMEN: Lung Bases: Emphysematous changes Liver: Normal density. No measurable mass. Gallbladder and biliary tract: No radiodense calculus or dilation. Pancreas: Normal density, no abnormal calcifications or inflammatory process. Spleen: Spleen is small.? The patient had a prior splenic laceration.? No evidence of acute laceration. Kidneys: Normal size, contour and axis. No radiodense stones or obstructive uropathy. No masses seen. Adrenal glands: No masses seen. Lymph nodes: Within normal limits. Abdominal Aorta: Abdominal portion non-dilated. Heavily calcified. PELVIS:? Bladder: Symmetric distention, no gross wall thickening. Bowel: No obstruction or bowel wall thickening. Peritoneal cavity: No ascites, collection or mesenteric inflammatory response. Reproductive organs: Within normal limits. Bones: Chronic appearing bony densities near the left greater trochanter.? Lumbar spine: Fractures of the left transverse processes at L3 and L4.? No vertebral body fractures.? Alignment is normal.? There is an old mid sacral fracture. IMPRESSION: Fractures of the left transverse processes at L3 and L4. Results of this exam have been verbally communicated with emergency department provider. EXAM:? XR CHEST 2V PA ? LATERAL CLINICAL HISTORY:? possible syncope TECHNIQUE:? 2D digital imaging was performed. COMPARISON:? CR XR RIBS LT W PA ? LAT CHEST from 12/10/[address] CHEST WO from 01/27/2022 FINDINGS: MEDIASTINUM: Normal.? HEART: Normal.? Coronary artery stent.? PULMONARY VASCULATURE: Normal. LUNGS: No infiltrates.? Hyperinflated.? Emphysematous changes and mild scarring. PLEURAL SPACE: No pleural effusion or pneumothorax. BONE:Unremarkable stable appearance of upper thoracic compression fractures.? IMPRESSION: No acute abnormality.? Lab Data Lab results reviewed: Yes I reviewed the patient's lab results. ECG Data Attestation: I personally reviewed and interpreted this ECG (s) as follows: Interpretation: EKG shows sinus versus ectopic atrial rhythm at 74, normal axis, diffuse T wave flattening, QTC 471, no WPW, no STEMI, nondiagnostic EKG HPI General Mode of arrival: EMS. Date/Time Provider Initiated Documentation: 06/05/22 11:22. Limitations to Documentation: no limitations. Information obtained by: patient, RN notes reviewed and old records reviewed. HPI Narrative: Jimenez Marin is a 67-year-old man with history ataxia, stroke, COPD, coronary artery disease, alcohol use disorder, COPD, GERD, hypertension presenting to emergency department with left-sided abdominal pain, left hip pain, and back pain. Patient reports that 2 days ago he fell. Patient states that he does not remember the circumstances of the fall at all. Patient reports that prior to the fall he was having no symptoms and was doing well and in his usual state of health. He does not know if he tripped/had a mechanical fall or if he fainted. Patient reports that he woke up on the floor after the fall after an unknown amount of time. Patient reports that for the past 2 days he has been unable to walk secondary to pain and has been crawling to the bathroom. Patient reports pain in his left lower ribs, left lower abdomen, left flank, and across his lower back. He also reports left hip pain. He reports mild headache. He denies any other pain. He reports chronic shortness of breath and cough that are unchanged. He denies fever, vomiting, diarrhea, numbness, focal weakness, rash, skin wound, swelling. Related Data Home Medications Medication Instructions Recorded Confirmed albuterol sulfate 90 mcg/actuation 2 puff inhalation Q4H PRN 06/14/18 06/05/22 aerosol inhaler (ProAir HFA) citalopram 20 mg tablet 20 mg PO DAILY #90 tabs 08/19/18 06/05/22 lisinopril 10 mg tablet 10 mg PO DAILY #90 tabs 08/19/18 06/05/22 loratadine 10 mg tablet 10 mg PO DAILY #90 tabs 08/19/18 06/05/22 omeprazole 20 mg capsule,delayed 20 mg PO DAILY #90 caps 08/19/18 06/05/22 release meloxicam 15 mg tablet 15 mg PO DAILY 01/27/19 06/05/22 atorvastatin 20 mg tablet 20 mg PO DAILY 04/29/20 06/05/22 lamotrigine 25 mg tablet (Lamictal) 75 mg PO BID 10/06/20 06/05/22 multivitamin with iron 1 tab PO DAILY 10/06/20 06/05/22 quetiapine 50 mg tablet 100 mg PO QHS 10/06/20 06/05/22 fluticasone propionate 50 2 spray intranasal BID 11/03/20 06/05/22 mcg/actuation nasal spray,suspension (Flonase Allergy Relief) clopidogrel 75 mg tablet (Plavix) 75 mg PO DAILY #90 tabs 06/22/21 06/05/22 lidocaine 5 % topical cream 1 applic topical QID PRN pain #30 07/14/21 06/05/22 grams budesonide 160 mcg-glycopyr 9 2 inh inhalation BID #10.7 grams 09/26/21 06/05/22 mcg-formot 4.8 mcg/actuation HFA inhaler (Breztri Aerosphere) ipratropium 0.5 mg-albuterol 3 mg 3 ml inhalation BID wheezing #360 09/27/21 06/05/22 (2.5 mg base)/3 mL nebulization mL soln nicotine 14 mg/24 hr daily 1 patch transdermal DAILY #28 ea 12/28/21 06/05/22 transdermal patch gabapentin 600 mg tablet 600 mg PO .COMPLEX #360 tabs 01/12/22 06/05/22 varenicline 0.5 mg tablet 1 mg PO BID 04/25/22 06/05/22 docusate sodium 100 mg capsule 100 mg PO TID PRN PRN #0 caps 06/09/22 (Colace) fentanyl 25 mcg/hr transdermal 25 mcg transdermal Q72H #5 ea 06/09/22 patch folic acid 1 mg tablet 1 mg PO DAILY #0 tabs 06/09/22 lidocaine 5 % topical patch 2 patch topical Q24H #30 ea 06/09/22 magnesium chloride 64 mg 64 mg PO BID #60 tabs 06/09/22 (magnesium chloride) tablet,delayed release (Mag 64) Previous Rx's Medication Instructions Recorded citalopram 20 mg tablet 20 mg PO DAILY #90 tabs 08/19/18 lisinopril 10 mg tablet 10 mg PO DAILY #90 tabs 08/19/18 loratadine 10 mg tablet 10 mg PO DAILY #90 tabs 08/19/18 omeprazole 20 mg capsule,delayed 20 mg PO DAILY #90 caps 08/19/18 release clopidogrel 75 mg tablet (Plavix) 75 mg PO DAILY #90 tabs 06/22/21 lidocaine 5 % topical cream 1 applic topical QID PRN pain #30 07/14/21 grams budesonide 160 mcg-glycopyr 9 2 inh inhalation BID #10.7 grams 09/26/21 mcg-formot 4.8 mcg/actuation HFA inhaler (Breztri Aerosphere) ipratropium 0.5 mg-albuterol 3 mg 3 ml inhalation BID wheezing #360 09/27/21 (2.5 mg base)/3 mL nebulization mL soln nicotine 14 mg/24 hr daily 1 patch transdermal DAILY #28 ea 12/28/21 transdermal patch gabapentin 600 mg tablet 600 mg PO .COMPLEX #360 tabs 01/12/22 docusate sodium 100 mg capsule 100 mg PO TID PRN PRN #0 caps 06/09/22 (Colace) fentanyl 25 mcg/hr transdermal 25 mcg transdermal Q72H #5 ea 06/09/22 patch folic acid 1 mg tablet 1 mg PO DAILY #0 tabs 06/09/22 lidocaine 5 % topical patch 2 patch topical Q24H #30 ea 06/09/22 magnesium chloride 64 mg 64 mg PO BID #60 tabs 06/09/22 (magnesium chloride) tablet,delayed release (Mag 64) Allergies Allergy/AdvReac Type Severity Reaction Status Date / Time carbamazepine Allergy Intermediate Hives Unverified 06/05/22 11:23 acetaminophen [From Tylenol] Allergy Verified 06/05/22 11:23 simvastatin Allergy Unverified 06/05/22 11:23 General Stated Complaint: Orthopedic GEMA: 3 Review of Systems Narrative: Constitutional: denies fevers Eyes: denies eye pain ENT: denies ear pain, dental pain, sore throat Cardiovascular: reports left lower rib pain, denies other chest pain, edema Respiratory: Reports chronic unchanged SOB and cough GI: denies vomiting, diarrhea, reports abdominal pain : denies flank pain MSK: Reports lower back pain, left hip pain, denies neck pain, other arthralgias, myalgias Skin: denies rash Neuro: denies numbness, weakness, reports mild headache PFSH All Active Problems (Updated 06/19/22 @ 09:44 by Aranza Loyd MD) MAKI (acute kidney injury) (Acute) Lumbar transverse process fracture (Acute) Fall (Acute) Pleural nodule (Acute) Nicotine dependence, cigarettes, uncomplicated (Acute) Ataxia (Acute) Dizziness (Acute) Gait abnormality (Acute) Rib fractures (Acute) Memory loss (Acute) Stroke (Chronic) Post concussion syndrome (Acute) Sacroiliac joint pain (Chronic) COPD (chronic obstructive pulmonary disease) (Acute) History of coronary artery disease (Acute) Medical History Alcohol abuse In remission Allergic rhinitis Anxiety with depression Bipolar 1 disorder Chronic pain COPD (chronic obstructive pulmonary disease) Coronary artery disease Eczema GERD (gastroesophageal reflux disease) H/O onychomycosis HCAP (healthcare-associated pneumonia) HTN (hypertension) Insomnia Smoker Spine injury Surgical History History of coronary artery stent placement History of tonsillectomy Rotator Cuff Repair (06/30/16) RIGHT Family History Other Heart disease Hypertension Social History Smoking/Tobacco Use Status: Current every day Tobacco Type: cigarettes Smoking risk assessment performed?: Yes Alcohol Intake: current Alcohol Intake frequency: a few times a month Alcohol type: beer Drug use: Occasionally Substance use type: marijuana Household members: none Housing: other Details: mobil home Number of Children: 1 current occupation: Disabled Pets and animals: No What type of physical activity do you participate in: walking Seatbelt use: sometimes Do you feel safe at home: Yes Do you feel safe in your relationship?: Yes Exam Narrative Exam Narrative: Constitutional: well and [id number], pleasant, conversing normally HENT: head atraumatic/normocephalic/normal inspection, mucous membranes dry Eyes: conjunctiva normal, sclera normal, pupils 3mm b/l Neck: no stridor, normal ROM, trachea midline Chest: normal inspection, left lower ribs tender to palpation without deformity/crepitus/overlying skin changes, no other chest wall tenderness to palpation Resp: normal work of breathing, LCTAB Cardio: normal rate, normal rhythm, no murmur appreciated GI: abdomen soft, mild left lower quadrant tenderness to palpation, positive left CVA tenderness to palpation, no rebound, no guarding, no right CVA tenderness to palpation, non-distended Back: normal inspection, no rash, diffuse tenderness to palpation across the lower back without point tenderness of the lumbar spine, no thoracic tenderness to palpation Skin: warm, dry, normal color, no rash Neuro: alert, not altered, cranial nerves II through XII intact, motor 5 out of 5 throughout, normal tone Ext: Moving all extremities equally, no tenderness to palpation of the left hip to anterior/lateral palpation, pelvis stable to compression Psych: normal mood, normal affect, normal behavior Course Vital Signs Vital signs: Vital Signs Temperature 36.5 C 06/05/22 11:19 Pulse 82 06/05/22 11:19 Respiratory Rate 17 06/05/22 11:19 Blood Pressure 92/53 L 06/05/22 11:19 Pulse Oximetry 94 06/05/22 11:19 Temperature 36.5 C 06/05/22 11:19 Temperature Source Temporal Artery Scan 06/05/22 11:19 Pulse 82 06/05/22 11:19 Respiratory Rate 17 06/05/22 11:19 Respiratory Effort Non-Labored 06/05/22 11:21 Blood Pressure 92/53 L 06/05/22 11:19 Blood Pressure Position Supine 06/05/22 11:19 Pulse Oximetry 94 06/05/22 11:19 Oxygen Delivery Method Room Air 06/05/22 11:19 Oxygen Flow Rate 0 06/05/22 11:19 Pain Level 10 06/05/22 11:24 PAWSS Have you Been Recently Intoxicated or Drunk Within the Last 30 days?: No Have you Ever Experienced Previous Episodes of Alcohol Withdrawal?: No Have you ever Experienced Withdrawal Seizures?: No Have you ever Experienced Delirium Tremens(DT)s?: Yes Have you ever undergone Alcohol Rehabilitation Treatment (i.e, inpt ot outpatient treatment programs)?: Yes Have you ever Experienced Blackouts?: Yes Have you ever Combined Alcohol with other Downers within the last 90 days?: No Have you ever Combined Alcohol with any other Substance of Abuse during the last 90 days?: No Result: 3
[2022-06-05] MEDS: Normal Saline 500 ML IV (12:21)
[2022-06-05 12:28] LABS: Abs Immature Grans 0.08 10^3/uL (0.0-0.06); Absolute Basophil Count 0.07 10^3/uL (0.0-0.2); Absolute Eosinophil Count 0.57 10^3/uL (0.0-0.7); Absolute Lymphocyte Count 0.98 10^3/uL (1.2-3.4); Absolute Monocyte Count 1.21 10^3/uL (0.1-0.8); Absolute Neutrophil Count 13.49 10^3/uL (1.2-6.7); Basophils % 0.4; Eosinophils % 3.5; HCT 42.8 % (40.0-50.0); HGB 14.6 g/dL (13.5-17.5); Immature Grans % 0.5; MCH 31.6 pg (27.0-33.0); MCHC 34.1 % (32.0-36.0); MCV 93 fL (80-95); MPV 9.4 fL (8.0-11.0); Monocytes % 7.4; Neutrophils % 82.2; Platelet Count 229 10^3/uL (130-400); RBC 4.62 10^6/uL (4.36-5.78); RDW 13.3 % (11.8-14.1); RDW-SD 45.7 fL; WBC 16.41 10^3/uL (4.4-10.8)
--- NOTE | 2022-06-05 12:45 | DI.CT_ITS ---
Exam(s) CT LUMBAR SPINE RECONS CT ABDOMEN PELVIS WO EXAM: CT ABDOMEN PELVIS WO CLINICAL HISTORY: trauma, left LLQ and left flank pain. TECHNIQUE: Imaging Protocol: Axial computed tomography images with coronal and sagittal reformatted images were created and reviewed. Oral: no COMPARISON: CT CT CHEST/ABD/PEL W from 06/14/2018 CR XR CHEST 2V PA LATERAL from 06/05/[address] LUMBAR SPINE RECONS from 06/05/2022 FINDINGS: ABDOMEN: Lung Bases: Emphysematous changes Liver: Normal density. No measurable mass. Gallbladder and biliary tract: No radiodense calculus or dilation. Pancreas: Normal density, no abnormal calcifications or inflammatory process. Spleen: Spleen is small. The patient had a prior splenic laceration. No evidence of acute laceratio n. Kidneys: Normal size, contour and axis. No radiodense stones or obstructive uropathy. No masses seen. Adrenal glands: No masses seen. Lymph nodes: Within normal limits. Abdominal Aorta: Abdominal portion non-dilated. Heavily calcified. PELVIS: Bladder: Symmetric distention, no gross wall thickening. Bowel: No obstruction or bowel wall thickening. Peritoneal cavity: No ascites, collection or mesenteric inflammatory response. Reproductive organs: Within normal limits. Bones: Chronic appearing bony densities near the left greater trochanter. Lumbar spine: Fractures of the left transverse processes at L3 and L4. No vertebral body fractures. Alignment is normal. The re is an old mid sacral fracture. IMPRESSION: Fractures of the left transverse processes at L3 and L4. Results of this exam have been verbally communicated with emergency department provider. RADIATION DOSE DELIVERED: Total DLP DATA REPOSITORY: All CT scans at this facility are submitted to the National Radiology Data Registry (NRDR) Dose Index Registry (DIR) with the [employer] (ACR). RADIATION OPTIMIZATION: All CT scans at this facility use at least one of these dose optimization te chniques: automated exposure control; mA and/or kV adjustment per patient size (includes targeted exa ms where dose is matched to clinical indication); or iterative reconstruction.
[2022-06-05 12:51] LABS: ALT 44 U/L (16-63); AST 31 U/L (15-37); Albumin 3.3 g/dL (3.4-5.0); Alkaline Phosphatase 67 U/L (46-116); Anion Gap 12.2 mmol/L (3-11); BUN 58 mg/dL (7-18); Bilirubin, Total 0.5 mg/dL (0.2-1.0); CO2 27.8 mmol/L (21.0-32.0); Calcium 8.8 mg/dL (8.5-10.1); Chloride 95 mmol/L (98-107); Creatine Kinase 543 U/L (39-308); Estimated GFR 9.86 (mL/min/1.73m2); Glucose 144 mg/dL (74-106); Magnesium 1.9 mg/dL (1.8-2.4); Potassium 3.1 mmol/L (3.5-5.1); Sodium 135 mmol/L (136-145); Total Protein 7.3 g/dL (6.4-8.2); Troponin I < 50 ng/L (<or=60)
[2022-06-05 12:53] LABS: CREATININE 5.9 mg/dL (0.70-1.30)
[2022-06-05] MEDS: MORPHine 10 MG/ML VIAL 2 MG IVP (13:04)
[2022-06-05] MEDS: Normal Saline 1,000 ML 1000 ML IV (13:06)
[2022-06-05] MEDS: fentaNYL 100 MCG/2 ML VIAL 50 MCG IVP (13:08)
--- NOTE | 2022-06-05 13:30 | DI.RAD_ITS ---
Exam(s) XR CHEST 2V PA LATERAL EXAM: XR CHEST 2V PA LATERAL CLINICAL HISTORY: possible syncope TECHNIQUE: 2D digital imaging was performed. COMPARISON: CR XR RIBS LT W PA LAT CHEST from 12/10/[address] CHEST WO from 01/27/2022 FINDINGS: MEDIASTINUM: Normal. HEART: Normal. Coronary artery stent. PULMONARY VASCULATURE: Normal. LUNGS: No infiltrates. Hyperinflated. Emphysematous changes and mild scarring. PLEURAL SPACE: No pleural effusion or pneumothorax. BONE:Unremarkable stable appearance of upper thoracic compression fractures. IMPRESSION: No acute abnormality. DATA REPOSITORY: RADIATION DOSE DELIVERED:
[2022-06-05 14:01] LABS: Source Nasal/Nares
[2022-06-05 14:25] LABS: Bilirubin Negative (Negative); Blood Small (Negative); Clarity Clear (Clear); Glucose Negative (Negative); Ketones Negative (Negative); Leukocyte Esterase Negative (Negative); Nitrite Negative (Negative); Specific Gravity 1.015 (1.005-1.025); Urobilinogen 0.2 EU/dL (Up TO 0.2); pH 5.5 (5-8)
[2022-06-05 14:33] LABS: Bacteria Negative HPF (Negative); C & S Indicated? No; Casts 0-2 Hyaline LPF (Negative); Crystals Negative HPF (Negative); Epithelial Cells Few HPF (Negative); Mucus Trace (Negative); WBC 0-2 HPF (0-5)
[2022-06-05 14:34] LABS: COVID-19 PCR Negative (Negative)
[2022-06-05] MEDS: MORPHine 4 MG/ML SYR IVP (15:18)
[2022-06-05 15:45] LABS: Troponin I < 50 ng/L (<or=60)
[2022-06-05] MEDS: HYDROmorphone 2 MG/ML SYR 1 MG IVP ×2 (16:15→20:34)
[2022-06-05] MEDS: Enoxaparin 40 MG/0.4 ML SYR SC (16:25)
[2022-06-05] MEDS: Lactated Ringers 1,000 ML 175 ML IV ×2 (16:26→22:17)
[2022-06-05] MEDS: Ibuprofen 600 MG TAB PO (18:05)
[2022-06-05] MEDS: Fluticasone NASAL SPRAY 16 GM BTL NS (19:27)
[2022-06-05] MEDS: Budesonide/Formoterol 160/4.5 6 GM 60 PUFF INH IH (19:28)
[2022-06-05] MEDS: lamoTRIgine 25 MG TAB 75 MG PO (19:29)
[2022-06-05] MEDS: Potassium Chloride 20 MEQ TABCR PO (19:30)
[2022-06-05] MEDS: Gabapentin 600 MG TAB PO (19:30)
[2022-06-05] MEDS: Albuterol/Ipratropium 3 ML UPD VIAL IH (19:31)
--- NOTE | 2022-06-05 20:48 | W.PM.HP.N ---
Date of service: 06/05/22 Time of Service: 20:48 Assessment and Plan Assessment and plan (1) Fall: Status: Acute Assessment and plan: Fell 2 days ago; has fallen multiple times recently - PT referral Discussed with Dr Yarbrough (2) Acute kidney injury: Status: Acute Assessment and plan: BUN 5.9 - LR @ 175 ml/h Monitor urine output - ferris - goal ~ 3 ml/kg/h Check am labs (3) COPD (chronic obstructive pulmonary disease): Status: Acute Assessment and plan: Stable - continue current meds (4) Alcohol abuse: Assessment and plan: States he has not had an alcoholic beverage in two weeks - will do CIWA (5) GERD (gastroesophageal reflux disease): Assessment and plan: Stable - continue home meds (6) Nicotine dependence, cigarettes, uncomplicated: Status: Acute Assessment and plan: Offer NRT (7) DVT prophylaxis: Status: Acute Assessment and plan: Heparin (8) Discharge planning issues: Status: Acute Assessment and plan: Home with pain meds ? PT History of Present Illness History of Present Illness Chief Complaint: Fall Narrative: Jimenez Marin is a 67-year-old male patient with history of ataxia, stroke, COPD, coronary artery disease, alcohol use disorder, COPD, GERD, hypertension presented to the [facility] emergency department with left-sided abdominal pain, left hip pain, and back pain.? Patient reported 2 days ago he fell.? Patient stated that he does not remember the circumstances of the fall at all.? Patient reported that prior to the fall he was having no symptoms and was doing well and in his usual state of health.? He does not know if he tripped/had a mechanical fall or if he fainted.? Patient reported that he woke up on the floor after the fall after an unknown amount of time.? Patient reported that for the past 2 days he has been unable to walk secondary to pain and has been crawling to the bathroom.? Patient reported pain in his left lower abdomen, left flank, and across his lower back.? He also reported left hip pain.? He reported mild headache.? He denied any other pain.? He reported chronic shortness of breath and cough that are unchanged.? He denied fever, vomiting, diarrhea, numbness, focal weakness, rash, skin wound, swelling. He is placed on observation status on the medical unit for pain managment. Review of Systems All systems reviewed & are unremarkable except as noted in HPI and below PFSH All Active Problems (Updated 06/05/22 @ 20:58 by Yin Macias NP) Acute kidney injury (Acute) Fall (Acute) DVT prophylaxis (Acute) Discharge planning issues (Acute) Pleural nodule (Acute) Nicotine dependence, cigarettes, uncomplicated (Acute) Ataxia (Acute) Dizziness (Acute) Gait abnormality (Acute) Rib fractures (Acute) Memory loss (Acute) Stroke (Chronic) Post concussion syndrome (Acute) Sacroiliac joint pain (Chronic) COPD (chronic obstructive pulmonary disease) (Acute) History of coronary artery disease (Acute) Medical History Alcohol abuse In remission Allergic rhinitis Anxiety with depression Bipolar 1 disorder Chronic pain COPD (chronic obstructive pulmonary disease) Coronary artery disease Eczema GERD (gastroesophageal reflux disease) H/O onychomycosis HCAP (healthcare-associated pneumonia) HTN (hypertension) Insomnia Smoker Spine injury Surgical History History of coronary artery stent placement History of tonsillectomy Rotator Cuff Repair (06/30/16) RIGHT Family History Other Heart disease Hypertension Social History Smoking/Tobacco Use Status: Current every day Tobacco Type: cigarettes Smoking risk assessment performed?: Yes Alcohol Intake: current Alcohol Intake frequency: a few times a month Alcohol type: beer Drug use: Occasionally Substance use type: marijuana Household members: none Housing: other Details: mobil home Number of Children: 1 current occupation: Disabled Pets and animals: No What type of physical activity do you participate in: walking Seatbelt use: sometimes Do you feel safe at home: Yes Do you feel safe in your relationship?: Yes Meds Allergies and Home Medications Allergies Allergy/AdvReac Type Severity Reaction Status Date / Time carbamazepine Allergy Intermediate Hives Unverified 06/05/22 11:23 acetaminophen [From Tylenol] Allergy Verified 06/05/22 11:23 simvastatin Allergy Unverified 06/05/22 11:23 Home Medications Medication Instructions Recorded Confirmed Type albuterol sulfate 90 mcg/actuation 2 puff inhalation Q4H PRN 06/14/18 06/05/22 History aerosol inhaler (ProAir HFA) citalopram 20 mg tablet 20 mg PO DAILY #90 tabs 08/19/18 06/05/22 Rx lisinopril 10 mg tablet 10 mg PO DAILY #90 tabs 08/19/18 06/05/22 Rx loratadine 10 mg tablet 10 mg PO DAILY #90 tabs 08/19/18 06/05/22 Rx omeprazole 20 mg capsule,delayed 20 mg PO DAILY #90 caps 08/19/18 06/05/22 Rx release meloxicam 15 mg tablet 15 mg PO DAILY 01/27/19 06/05/22 History atorvastatin 20 mg tablet 20 mg PO DAILY 04/29/20 06/05/22 History lamotrigine 25 mg tablet (Lamictal) 75 mg PO BID 10/06/20 06/05/22 History multivitamin with iron 1 tab PO DAILY 10/06/20 06/05/22 History quetiapine 50 mg tablet 100 mg PO QHS 10/06/20 06/05/22 History fluticasone propionate 50 2 spray intranasal BID 11/03/20 06/05/22 History mcg/actuation nasal spray,suspension (Flonase Allergy Relief) clopidogrel 75 mg tablet (Plavix) 75 mg PO DAILY #90 tabs 06/22/21 06/05/22 Rx lidocaine 5 % topical cream 1 applic topical QID PRN pain #30 07/14/21 06/05/22 Rx grams budesonide 160 mcg-glycopyr 9 2 inh inhalation BID #10.7 grams 09/26/21 06/05/22 Rx mcg-formot 4.8 mcg/actuation HFA inhaler (Breztri Aerosphere) ipratropium 0.5 mg-albuterol 3 mg 3 ml inhalation BID wheezing #360 09/27/21 06/05/22 Rx (2.5 mg base)/3 mL nebulization mL soln nicotine 14 mg/24 hr daily 1 patch transdermal DAILY #28 ea 12/28/21 06/05/22 Rx transdermal patch gabapentin 600 mg tablet 600 mg PO .COMPLEX #360 tabs 01/12/22 06/05/22 Rx varenicline 0.5 mg tablet 1 mg PO BID 08/09/22 09/19/22 History Exam Narrative Exam Narrative: Constitutional: Alert and oriented x3. Appears stated age. Normal body habitus. Head: Normocephalic, no trauma. Eyes: Pupils PERRLA, Red reflex noted, EOM's intact. Eyelids symmetrical without lesions, discharge, or swelling. ENT: Bilateral TM's WNL, External ear normal to inspection, no mastoid TTP, swelling, or erythema, Nasal turbinates WNL, no nasal discharge. Normal dentition, Posterior pharynx WNL, no exudate. Chest: RRR, Normal S1, S2, distal pulses intact. Tender to palpation left sided chest wall, no ecchymosis or contusions noted. Resp: Lungs diminished bilaterally, no wheezes, rales, or rhonchi. Musculoskeletal: Normal gait, 5/5 strength to all four extremities. Skin: Capillary refill less than 2 sec. does have some old healing bruises noted to his left upper extremity. Neurologic: Cranial nerves II-XII intact. Alert and oriented x 3. DTR's intact. Hematologic/Lymphatic: No ecchymosis, no lymphadenopathy. Results Labs Result diagrams: 06/06/22 05:39 06/06/22 05:39 Labs: Laboratory Results - last 24 hr 06/05/22 06/05/22 06/05/22 12:17 12:17 12:17 WBC 16.41 H RBC 4.62 Hgb 14.6 Hct 42.8 MCV 93 MCH 31.6 MCHC 34.1 RDW 13.3 Plt Count 229 MPV 9.4 Immature Gran % 0.5 Neutrophils % 82.2 Lymphocytes % 6.0 Monocytes % 7.4 Eosinophils % 3.5 Basophils % 0.4 Nucleated RBC % 0.0 Absolute Neutrophils 13.49 H Absolute Lymphocytes 0.98 L Absolute Monocytes 1.21 H Absolute Eosinophils 0.57 Absolute Basophils 0.07 Sodium 135 L Potassium 3.1 L Chloride 95 L Carbon Dioxide 27.8 Anion Gap 12.2 H BUN 58 H Creatinine 5.9 H* Est GFR (CKD-EPI 2020) 9.86 Glucose 144 H Calcium 8.8 Magnesium 1.9 Total Bilirubin 0.5 AST 31 ALT 44 Alkaline Phosphatase 67 Creatine Kinase 543 H Troponin I < 50 Total Protein 7.3 Albumin 3.3 L Urine Color Urine Clarity Urine pH Ur Specific [place] Urine Protein Urine Ketones Urine Blood Urine Nitrite Urine Bilirubin Urine Urobilinogen Ur Leukocyte Esterase Urine RBC Urine WBC Ur Epithelial Cells Urine Crystals Urine Bacteria Urine Casts Urine Mucus Ur Culture Indicated? Urine Glucose COVID-19 Source SARS-CoV-2 (PCR) Patient ABO/Rh A Positive Antibody Screen NEGATIVE 06/05/22 06/05/22 06/05/22 12:17 13:59 14:18 WBC RBC Hgb Hct MCV MCH MCHC RDW Plt Count MPV Immature Gran % Neutrophils % Lymphocytes % Monocytes % Eosinophils % Basophils % Nucleated RBC % Absolute Neutrophils Absolute Lymphocytes Absolute Monocytes Absolute Eosinophils Absolute Basophils Sodium Potassium Chloride Carbon Dioxide Anion Gap BUN Creatinine Est GFR (CKD-EPI 2020) Glucose Calcium Magnesium Cancelled Total Bilirubin AST ALT Alkaline Phosphatase Creatine Kinase Cancelled Troponin I Total Protein Albumin Urine Color Yellow Urine Clarity Clear Urine pH 5.5 Ur Specific [place] 1.015 Urine Protein 30 H Urine Ketones Negative Urine Blood Small H Urine Nitrite Negative Urine Bilirubin Negative Urine Urobilinogen 0.2 Ur Leukocyte Esterase Negative Urine RBC 3-5 H Urine WBC 0-2 Ur Epithelial Cells Few Urine Crystals Negative Urine Bacteria Negative Urine Casts 0-2 Hyaline Urine Mucus Trace Ur Culture Indicated? No Urine Glucose Negative COVID-19 Source Nasal/Nares SARS-CoV-2 (PCR) Negative Patient ABO/Rh Antibody Screen 06/05/22 15:15 WBC RBC Hgb Hct MCV MCH MCHC RDW Plt Count MPV Immature Gran % Neutrophils % Lymphocytes % Monocytes % Eosinophils % Basophils % Nucleated RBC % Absolute Neutrophils Absolute Lymphocytes Absolute Monocytes Absolute Eosinophils Absolute Basophils Sodium Potassium Chloride Carbon Dioxide Anion Gap BUN Creatinine Est GFR (CKD-EPI 2020) Glucose Calcium Magnesium Total Bilirubin AST ALT Alkaline Phosphatase Creatine Kinase Troponin I < 50 Total Protein Albumin Urine Color Urine Clarity Urine pH Ur Specific [place] Urine Protein Urine Ketones Urine Blood Urine Nitrite Urine Bilirubin Urine Urobilinogen Ur Leukocyte Esterase Urine RBC Urine WBC Ur Epithelial Cells Urine Crystals Urine Bacteria Urine Casts Urine Mucus Ur Culture Indicated? Urine Glucose COVID-19 Source SARS-CoV-2 (PCR) Patient ABO/Rh Antibody Screen Last Vital Signs Temp 36.7 C 06/05/22 19:15 Pulse 74 06/05/22 19:15 Resp 16 06/05/22 19:15 BP 105/64 06/05/22 19:15 Pulse Ox 92 06/05/22 19:31 PAWSS Have you Been Recently Intoxicated or Drunk Within the Last 30 days?: No Have you Ever Experienced Previous Episodes of Alcohol Withdrawal?: No Have you ever Experienced Withdrawal Seizures?: No Have you ever Experienced Delirium Tremens(DT)s?: No Have you ever undergone Alcohol Rehabilitation Treatment (i.e, inpt ot outpatient treatment programs)?: Yes Have you ever Experienced Blackouts?: Yes Have you ever Combined Alcohol with other Downers within the last 90 days?: No Have you ever Combined Alcohol with any other Substance of Abuse during the last 90 days?: Yes Positive Blood Alcohol level on Presentation? [PCS.BAL]: No Evidence of Increased Autonomic Activity (i.e. HR>120, tremor, sweating, agitation, nausea)?: No Result: 4
[2022-06-05] MEDS: oxyCODONE 5 MG TAB PO (21:50)
[2022-06-05] MEDS: QUEtiapine 50 MG TAB 100 MG PO (21:51)
[2022-06-05] MEDS: Gabapentin 600 MG TAB 300 MG PO (22:04)
[2022-06-06] VITALS (13 sets, daily range): BP systolic 105–156; BP diastolic 60–75; PULSE 62–85; RESP 1–20; TEMP 35.9–37.1; O2SAT 92–99
[2022-06-06] MEDS: Lactated Ringers 1,000 ML 175 ML IV ×4 (03:31→21:50)
[2022-06-06 06:25] LABS: Abs Immature Grans 0.04 10^3/uL (0.0-0.06); Absolute Basophil Count 0.08 10^3/uL (0.0-0.2); Absolute Eosinophil Count 0.73 10^3/uL (0.0-0.7); Absolute Lymphocyte Count 1.45 10^3/uL (1.2-3.4); Absolute Monocyte Count 0.97 10^3/uL (0.1-0.8); Absolute Neutrophil Count 8.02 10^3/uL (1.2-6.7); Basophils % 0.7; Eosinophils % 6.5; HCT 36.3 % (40.0-50.0); HGB 12.4 g/dL (13.5-17.5); Immature Grans % 0.4; Lymphocytes % 12.8; MCH 31.7 pg (27.0-33.0); MCHC 34.2 % (32.0-36.0); MCV 93 fL (80-95); MPV 9.8 fL (8.0-11.0); Monocytes % 8.6; Platelet Count 190 10^3/uL (130-400); RBC 3.91 10^6/uL (4.36-5.78); RDW 13.5 % (11.8-14.1); RDW-SD 46.5 fL; WBC 11.29 10^3/uL (4.4-10.8)
[2022-06-06 06:57] LABS: ALT 35 U/L (16-63); AST 39 U/L (15-37); Albumin 2.6 g/dL (3.4-5.0); Alkaline Phosphatase 53 U/L (46-116); Anion Gap 7.2 mmol/L (3-11); BUN 34 mg/dL (7-18); Bilirubin, Total 0.3 mg/dL (0.2-1.0); CO2 26.8 mmol/L (21.0-32.0); CREATININE 1.5 mg/dL (0.70-1.30); Calcium 8.6 mg/dL (8.5-10.1); Chloride 105 mmol/L (98-107); Creatine Kinase 857 U/L (39-308); Estimated GFR 51.03 (mL/min/1.73m2); Glucose 118 mg/dL (74-106); Magnesium 1.7 mg/dL (1.8-2.4); Potassium 4.2 mmol/L (3.5-5.1); Sodium 139 mmol/L (136-145)
[2022-06-06] MEDS: Citalopram 20 MG TAB PO (07:35)
[2022-06-06] MEDS: Clopidogrel 75 MG TAB PO (07:35)
[2022-06-06] MEDS: Omeprazole 20 MG CAPCR PO (07:35)
[2022-06-06] MEDS: Potassium Chloride 20 MEQ TABCR PO ×2 (07:35→20:16)
[2022-06-06] MEDS: lamoTRIgine 25 MG TAB 75 MG PO ×2 (07:35→20:16)
[2022-06-06] MEDS: Thiamine 100 MG TAB PO (07:35)
[2022-06-06] MEDS: Folic Acid 1 MG TAB PO (07:35)
[2022-06-06] MEDS: Gabapentin 600 MG TAB PO ×2 (08:28→21:57)
[2022-06-06] MEDS: Fluticasone NASAL SPRAY 16 GM BTL NS ×2 (08:28→21:57)
[2022-06-06] MEDS: oxyCODONE 5 MG TAB PO (08:36)
[2022-06-06] MEDS: Budesonide/Formoterol 160/4.5 6 GM 60 PUFF INH IH ×2 (08:38→21:57)
[2022-06-06] MEDS: Albuterol/Ipratropium 3 ML UPD VIAL IH ×2 (08:42→20:15)
[2022-06-06] MEDS: Normal Saline Flush 10 ML SYR (09:40)
[2022-06-06] MEDS: HYDROmorphone 2 MG/ML SYR 1 MG IVP ×3 (11:08→20:13)
--- NOTE | 2022-06-06 12:16 | IN_ITS ---
Date of service: 06/06/22 Time of Service: 12:16 PT Notes Visit Reasons: Fall Physical Therapy Inpatient Initial Evaluation Date: 06/06/2022 Referring Doctor: Yin Macias NP PT Orders: PT CONSULT: D/C non PT-dependent Precautions: Fall. Standard. Back precautions in place. Patient Profile/Admitting Diagnosis: Jimenez is a 67-year-old male who presented to the ED on 06/05/2022 due to left- sided abdominal pain, left hip pain, and back pain along with mild headache rela sean to a fall that happened 2 days ago. Patient is diagnosed with acute kidney injury, COPD, EtOH abuse, GERD, nicotine dependence, DVT, and a fall. CT of the head showed no acute intracranial process. Lumbar spine CT showed fracture of the transverse processess of the L3-L4 vertebrae. PMHX: All Active Problems?(Updated 06/05/22 @ 20:58 by Yin Macias NP) Acute kidney injury (Acute) Fall (Acute) DVT prophylaxis (Acute) Discharge planning issues (Acute) Pleural nodule (Acute) Nicotine dependence, cigarettes, uncomplicated (Acute) Ataxia (Acute) Dizziness (Acute) Gait abnormality (Acute) Rib fractures (Acute) Memory loss (Acute) Stroke (Chronic) Post concussion syndrome (Acute) Sacroiliac joint pain (Chronic) COPD (chronic obstructive pulmonary disease) (Acute) History of coronary artery disease (Acute) Medical History? Alcohol abuse In remission Allergic rhinitis Anxiety with depression Bipolar 1 disorder Chronic pain COPD (chronic obstructive pulmonary disease) Coronary artery disease Eczema GERD (gastroesophageal reflux disease) H/O onychomycosis HCAP (healthcare-associated pneumonia) HTN (hypertension) Insomnia Smoker Spine injury Surgical History? History of coronary artery stent placement History of tonsillectomy Rotator Cuff Repair (06/30/16) RIGHT Social History/Home Situation: Jimenez lives in a trailer with 2 other roommates. Has 4 steps to enter with rails on B sides. Has been on disability. Sometimes uses a cane if he feels like he needs it. Equipment Owned/DME: [facility] Subjective: Reports weakness, pain, and fatigue. Complains of pain when he coughs in his lower flank area. Agreeable to PT consult. Reports pain in toes for which patient refused TEDS donned but provider offered to try and patient was able to tolerate placement. Objective: General Observation: Supine in bed. Telemetry monitoring in place. IV access in R UE. Toes on the R mildly erythematous. Mental Status: Alert and oriented as to date, time, and place. Pain: 10/10 in low back area more to the L than the R ROM: Right Upper Extremity: Shoulder Flexion WFL. Shoulder abduction WFL. Elbow flexion WFL. Wrist flexion WFL. Functional opening and closing of hand WFL. Left Upper Extremity: Shoulder Flexion WFL. Shoulder abduction WFL. Elbow flexion WFL. Wrist flexion WFL. Functional opening and closing of hand WFL. Right Lower Extremity: Hip flexion WFL. Hip abduction WFL. Knee flexion WFL. Ankle dorsiflexion WFL. Ankle plantarflexion WFL. Left Lower Extremity: Hip flexion WFL. Hip abduction WFL. Knee flexion WFL. Ankle dorsiflexion WFL. Ankle plantarflexion WFL. Strength: Right Upper Extremity: Shoulder flexors 4-/5. Shoulder abductors 4-/5. Elbow flexors 4-/5. Elbow extensors 4-/5. Mixing Machine Tender strong. Left Upper Extremity: Shoulder flexors 4-/5. Shoulder abductors 4-/5. Elbow flexors 4-/5. Elbow extensors 4-/5. Mixing Machine Tender strong. Right Lower Extremity: Hip flexors 4-/5. Hip abductors 4-/5. Knee flexors 4-/5. Knee extensors 4-/5. Ankle dorsiflexors 4-/5. Ankle plantarflexors 4-/5. Left Lower Extremity: Hip flexors 4-/5. Hip abductors 4-/5. Knee flexors 4-/5. Knee extensors 4-/5. Ankle dorsiflexors 4-/5. Ankle plantarflexors 4-/5. Sensation: Intact as to pain and light pressure in B LE Bed Mobility/Transfers: Supine to sit supervision Sit to stand contact guard assist Stand to sit stand by assist Bed to chair stand by assist Gait: Able to tolerate level surface ambulation 80 feet using front wheeled walker with contact-guard assist and IV pole management of PT, CLIPPER COUNTERS provided wheelchair follow for safety. Gait mildly ataxic. Reports pain in back at 10/10 at rest and with movement. Nurse aware. No loss of balance, Balance: Static Sitting: Normal Dynamic Sitting: Normal Static Standing: Fair Dynamic Standing: Fair Special Tests: Mobility Limitations Standardized Measure [facility] AM-PAC 6 clicks Basic Mobility Inpatient Short Form: Raw Score: 19 CMS Score: 42% deficit 4-Stage Balance Test: Unable to maintain all 4 positions due to instability and weakness Informed Consent/Education: Patient was instructed in purpose of PT consult and plan of care. Agreeable to proceed with established PT POC to achieve personal goals. Assessment: Jimenez is a 67-year-old male who presented to the ED on 06/05/2022 due to left- sided abdominal pain, left hip pain, and back pain along with mild headache related to a fall that happened 2 days ago. Patient is diagnosed with acute kidney injury, COPD, EtOH abuse, GERD, nicotine dependence, DVT, and a fall. CT of the head showed no acute intracranial process. Lumbar spine CT showed fracture of the transverse processes of the L3-L4 vertebrae. Patient presents with clinical signs and symptoms consistent with current/admitting diagnoses that have resulted to mobility limitations, gait instability, generalized weakness, and overall ADL decline as demonstrated by the following impairment level findings: 1. Decreased strength to B UE/LE major muscle groups 2. Impaired sitting/standing balance 3. Impaired activity tolerance 5. Mild ataxia of gait 6. Pain in low back Impairments are contributing to the following functional limitations: 1. Difficulty with ambulation without assistive device 2. Increased completion time for mobility ADL performance 3. Increased risk for falls 4. Difficulty with managing steps alone safely Patient is assessed as a 15419 moderate complexity based on the following: History: 67-year-old male with past medical history as indicated above Examination: Demonstrable impairment in strength, balance, and mobility level with underlying impairments and functional limitations as exhibited above as well as deficit score of 42% utilizing the [facility] Mobility Inpatient Short Form Presentation: Evolving Decision Makin moderate complexity Goals: Goals X1 week 1. Supine-Sit independent 2. Sit-Supine independent 3. Sit-Stand independent 4. Stand-Sit independent with no AD 5. Bed-Chair independent with no AD 6. Chair-Bed independent with no AD 7. Independent gait on level surface with use of no AD for at least 1000 feet without report of pain nor dyspnea 8. Independent stair negotiation while holding onto B rails rails for at least 5 steps without report of pain nor dyspnea 9. Independent with home exercise program 10. Good static and dynamic standing balance/tolerance Plan of Care/Treatment Plan: 1-2x/day, 7 days/week x 1 week. Plan of care has been reviewed with the MANUFACTURING LABORER providing the service under Physical Therapy direction. Initiate Physical Therapy intervention for pain management as needed, strengthening, bed mobility, transfers, gait, stairs, balance training, and use of assistive device. DISCHARGE RECOMMENDATIONS: [] Home with no services [] [X] Home with services. Patient will benefit from home health PT services in order to progress mobility level using least restrictive assistive ambulatory device, assess home safety, identify additional equipment needs, and establish a functional maintenance program that will increase ability of patient to remain at home. [] Home with outpatient PT [] [] SNF for continued rehabilitation [] [] [facility] [] [] SNF versus LTC based on ability to participate and progress [] TREATMENT CODE/TIME: 30359 x 20 minutes, 36303 x 18 minutes beginning at 12:16 PM. Thank you for the opportunity to participate in the care of this patient. Joana Haider PT, DPT, CLT [facility] [place], [place]
--- NOTE | 2022-06-06 13:39 | PHA.REVIEW2 ---
Pharmacy Admission Review - Admission Clinical Review (Last Reviewed 02/23/22 @ 13:31 by Flora Mahoney MD) Acute kidney injury (Acute) Fall (Acute) DVT prophylaxis (Acute) Discharge planning issues (Acute) Nicotine dependence, cigarettes, uncomplicated (Acute) COPD (chronic obstructive pulmonary disease) (Acute) carbamazepine Allergy (Intermediate, Unverified 06/05/22 11:23) Hives acetaminophen [From Tylenol] Allergy (Verified 06/05/22 11:23) simvastatin Allergy (Unverified 06/05/22 11:23) Resuscitation Status Full Code Height 6 ft Weight 62 kg - Renal Dosing Renal Dosing: BUN 34 mg/dL (7-18) H 06/06/22 05:39 Creatinine 1.5 mg/dL (0.70-1.30) H D 06/06/22 05:39 Medications needing adjustments: Intervened List of meds needing interventions: SCr has come down significantly from yesterday (5.9 down to 1.5); gabapentin has been adjusted based on todays eCrCl of 42 ml/min -- 50% dose reduction - Anticoagulation Anticoagulation: Hgb 12.4 g/dL (13.5-17.5) L D 06/06/22 05:39 Hct 36.3 % (40.0-50.0) L 06/06/22 05:39 Plt Count 190 10^3/uL (130-400) 06/06/22 05:39 Creatinine 1.5 mg/dL (0.70-1.30) H D 06/06/22 05:39 DVT Prophylaxis: Reviewed Medications: Heparin - Opiate Usage Evaluate Pain Scale/Pains Meds: Reviewed (oxycodone 5mg q4h prn; hydromorphone 1mg IVP q4h prn) Scheduled Bowel Reg ordered if on Opiates?: Yes (prn) - Relevant Labs Sodium 139 mmol/L (136-145) 06/06/22 05:39 Potassium 4.2 mmol/L (3.5-5.1) D 06/06/22 05:39 Chloride 105 mmol/L (98-107) 06/06/22 05:39 Magnesium 1.7 mg/dL (1.8-2.4) L 06/06/22 05:39 Electrolytes, C-Reactive P, ESR: Reviewed (Mag slightly below normal, consider PO supplementation (400 BID-TID x1-2 days) if asymptomatic) - DM Control DM Control: Glucose 118 mg/dL (74-106) H 06/06/22 05:39 DM Control: N/A - Cardiac Review Cardiac Review: Troponin I < 50 ng/L (<or=60) 06/05/22 15:15 BP, HR, EF%: Reviewed - Qtc Review QTc: Reviewed If Elevated, List meds needing intervention: QTc 471 on admission - IV to PO Switch IV Medications: Reviewed - Home Meds Home Med List reviewed: Reviewed Relevent Home Meds Not ordered & why?: not ordered: lisinopril, loratadine, meloxicam, chantix (pt reports not taking) - Current meds Current Medication Order Review: Reviewed (CIWA protocol started; opiate usage last 24 hours: hydromorphone IV - 3 mg, oxycodone PO - 10mg)
[2022-06-06] MEDS: Heparin 5,000 UNITS/ML VIAL 5000 UNITS SC ×2 (14:05→20:13)
--- NOTE | 2022-06-06 14:36 | PDOC.CMIN ---
- If Service Date Differs Date of service: 06/06/22 Time of Service: 14:36 Care Management Initial Assess REASON FOR HOSPITALIZATION:: Fall PAST MEDICAL HISTORY/PAST SURGICAL HISTORY:: All Active Problems. Acute kidney injury (Acute). Fall (Acute). DVT prophylaxis (Acute). Discharge planning issues (Acute). Pleural nodule (Acute). Nicotine dependence, cigarettes, uncomplicated (Acute). Ataxia (Acute). Dizziness (Acute). Gait abnormality (Acute). Rib fractures (Acute). Memory loss (Acute). Stroke (Chronic). Post concussion syndrome (Acute). Sacroiliac joint pain (Chronic). COPD (chronic obstructive pulmonary disease) (Acute). History of coronary artery disease (Acute). Medical History. Alcohol abuse. In remission. Allergic rhinitis. Anxiety with depression. Bipolar 1 disorder. Chronic pain. COPD (chronic obstructive pulmonary disease). Coronary artery disease. Eczema. GERD (gastroesophageal reflux disease). H/O onychomycosis. HCAP (healthcare-associated pneumonia). HTN (hypertension). Insomnia. Smoker. Spine injury. Surgical History. History of coronary artery stent placement. History of tonsillectomy. Rotator Cuff Repair (06/30/16). RIGHT PREVIOUS FUNCTIONAL STATUS/SOCIAL/FAMILY SUPPORTS:: Jimenez lives in [facility] with two roommates. 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 He has one son whom he is not in contact with. He is independent with ADL's, but does not drive. CURRENT FUNCTIONAL STATUS:: Jimenez was lying in bed when CM met with him. He was pleasant and engaged in conversation. He reported that he is in a lot of pain, but it is better today than when he arrived. He stated that he worked with PT and felt that he did well. He stated that he does not have a FWW, but he used one with PT. He uses a cane at baseline. He stated that he does not have any current services at home, but he recently completed working with outpatient PT. CM will continue to follow. ADVANCE DIRECTIVES:: Not on file at [facility]. Has patient been provided with info about the portal/API?: Yes Did the patient sign up for the portal?: No CODE STATUS:: Full Code INSURANCE COVERAGE / FINANCIAL ISSUES:: [facility] CURRENT HOME/COMMUNITY SERVICES/EQUIPMENT:: No known services or equipment. PRIMARY CARE PHYSICIAN:: Ness Diaz POTENTIAL DISCHARGE NEEDS:: Evaluations for further needs, follow up appointments. PATIENT/FAMILY EDUCATION NEEDS:: Review discharge instructions and limitations, discussion of self care needs including ask me three. ANTICIPATED BARRIERS TO DISCHARGE:: Pain management. TRANSPORTATION:: Via private vehicle by family/friend vs RCT private vehicle. PLAN:: Anticipate Jimenez will return home when medically cleared. He will transport via private vehicle. He will follow up with his PCP and discharge plan of care. CM will continue to follow.
[2022-06-06] MEDS: Docusate Sodium 100 MG CAP PO (16:05)
[2022-06-06] MEDS: Normal Saline Flush 10 ML SYR IVP (20:14)
[2022-06-06] MEDS: QUEtiapine 50 MG TAB 100 MG PO (21:57)
[2022-06-07] VITALS (12 sets, daily range): BP systolic 150–177; BP diastolic 71–76; PULSE 66–78; RESP 4–20; TEMP 36.6–37.3; O2SAT 85–94
[2022-06-07] MEDS: LORazepam 1 MG TAB PO/SL ×2 (00:11→23:29)
[2022-06-07] MEDS: Lactated Ringers 1,000 ML 175 ML IV ×2 (03:23→08:50)
[2022-06-07 07:07] LABS: Abs Immature Grans 0.03 10^3/uL (0.0-0.06); Absolute Basophil Count 0.11 10^3/uL (0.0-0.2); Absolute Eosinophil Count 0.81 10^3/uL (0.0-0.7); Absolute Lymphocyte Count 1.09 10^3/uL (1.2-3.4); Absolute Monocyte Count 0.91 10^3/uL (0.1-0.8); Absolute Neutrophil Count 6.25 10^3/uL (1.2-6.7); Basophils % 1.2; Eosinophils % 8.8; HCT 36.1 % (40.0-50.0); HGB 12.4 g/dL (13.5-17.5); Immature Grans % 0.3; Lymphocytes % 11.8; MCH 31.7 pg (27.0-33.0); MCHC 34.3 % (32.0-36.0); MCV 92 fL (80-95); MPV 10.2 fL (8.0-11.0); Monocytes % 9.9; Platelet Count 191 10^3/uL (130-400); RBC 3.91 10^6/uL (4.36-5.78); RDW 13.4 % (11.8-14.1); RDW-SD 45.7 fL
[2022-06-07 07:11] LABS: Anion Gap 5.6 mmol/L (3-11); BUN 13 mg/dL (7-18); CO2 30.4 mmol/L (21.0-32.0); CREATININE 0.9 mg/dL (0.70-1.30); Calcium 9.2 mg/dL (8.5-10.1); Chloride 105 mmol/L (98-107); Estimated GFR 94.19 (mL/min/1.73m2); Glucose 123 mg/dL (74-106); Magnesium 1.1 mg/dL (1.8-2.4); Potassium 4.3 mmol/L (3.5-5.1); Sodium 141 mmol/L (136-145)
[2022-06-07] MEDS: Albuterol/Ipratropium 3 ML UPD VIAL IH ×2 (08:03→20:10)
[2022-06-07] MEDS: Budesonide/Formoterol 160/4.5 6 GM 60 PUFF INH IH ×2 (08:04→22:23)
[2022-06-07] MEDS: Citalopram 20 MG TAB PO (08:40)
[2022-06-07] MEDS: Fluticasone NASAL SPRAY 16 GM BTL NS ×2 (08:41→22:23)
[2022-06-07] MEDS: Clopidogrel 75 MG TAB PO (08:41)
[2022-06-07] MEDS: Docusate Sodium 100 MG CAP PO (08:41)
[2022-06-07] MEDS: Folic Acid 1 MG TAB PO (08:41)
[2022-06-07] MEDS: Heparin 5,000 UNITS/ML VIAL 5000 UNITS SC ×3 (08:42→20:09)
[2022-06-07] MEDS: Gabapentin 300 MG CAP PO (08:42)
[2022-06-07] MEDS: Normal Saline Flush 10 ML SYR IVP ×3 (08:44→20:11)
[2022-06-07] MEDS: Potassium Chloride 20 MEQ TABCR PO ×2 (08:44→20:10)
[2022-06-07] MEDS: Omeprazole 20 MG CAPCR PO (08:44)
[2022-06-07] MEDS: Thiamine 100 MG TAB PO (08:45)
[2022-06-07] MEDS: oxyCODONE 5 MG TAB PO ×2 (08:48→13:19)
[2022-06-07] MEDS: MAGNESIUM SULFATE 4 GM/100 ML BAG IVPB (10:11)
[2022-06-07] MEDS: lamoTRIgine 25 MG TAB 75 MG PO ×2 (10:23→20:09)
[2022-06-07] MEDS: HYDROmorphone 2 MG/ML SYR 1 MG IVP ×3 (10:23→20:10)
--- NOTE | 2022-06-07 11:05 | W.PM.PROGNOT ---
Date of Service Date of service: 06/07/22 Time of Service: 11:05 Assessment and Plan Assessment and plan (1) Fall: Status: Acute Assessment and plan: Has fallen multiple times recently - PT is working with him Pain is improving Will continue PT Discussed with Dr Padilla (2) Acute kidney injury: Status: Resolved Assessment and plan: Resolved - IVF stopped - oral fluids (3) COPD (chronic obstructive pulmonary disease): Status: Acute Assessment and plan: Stable - continue current meds (4) Alcohol abuse: Assessment and plan: States he has not had an alcoholic beverage in two weeks - will do CIWA CIWA scores - probably related to his pain and not withdrawal (5) GERD (gastroesophageal reflux disease): Assessment and plan: Stable - continue home meds (6) Nicotine dependence, cigarettes, uncomplicated: Status: Acute Assessment and plan: Offer NRT Subjective Subjective Patient reports: no new complaints, still having pain, tolerating a regular diet, diarrhea and afebrile; denies nausea, vomiting or shortness of breath Exam Psych Mental Status: mental status grossly normal Speech and Movement: speech and movement normal Mood: congruent mood Affect: normal affect Objective Last Vital Signs Temp 36.7 C 06/07/22 07:52 Pulse 67 06/07/22 07:52 Resp 20 06/07/22 07:52 BP 167/73 H 06/07/22 07:52 Pulse Ox 91 L 06/07/22 08:40 Laboratory Results - last 24 hr 06/07/22 06/07/22 06:00 06:00 WBC 9.20 RBC 3.91 L Hgb 12.4 L Hct 36.1 L MCV 92 MCH 31.7 MCHC 34.3 RDW 13.4 Plt Count 191 MPV 10.2 Immature Gran % 0.3 Neutrophils % 68.0 Lymphocytes % 11.8 Monocytes % 9.9 Eosinophils % 8.8 Basophils % 1.2 Nucleated RBC % 0.0 Absolute Neutrophils 6.25 Absolute Lymphocytes 1.09 L Absolute Monocytes 0.91 H Absolute Eosinophils 0.81 H Absolute Basophils 0.11 Sodium 141 Potassium 4.3 Chloride 105 Carbon Dioxide 30.4 Anion Gap 5.6 BUN 13 Creatinine 0.9 Est GFR (CKD-EPI 2020) 94.19 Glucose 123 H Calcium 9.2 Magnesium 1.1 L PAWSS Have you Been Recently Intoxicated or Drunk Within the Last 30 days?: No Have you Ever Experienced Previous Episodes of Alcohol Withdrawal?: No Have you ever Experienced Withdrawal Seizures?: No Have you ever Experienced Delirium Tremens(DT)s?: No Have you ever undergone Alcohol Rehabilitation Treatment (i.e, inpt ot outpatient treatment programs)?: Yes Have you ever Experienced Blackouts?: Yes Have you ever Combined Alcohol with other Downers within the last 90 days?: No Have you ever Combined Alcohol with any other Substance of Abuse during the last 90 days?: Yes Positive Blood Alcohol level on Presentation? [PCS.BAL]: No Evidence of Increased Autonomic Activity (i.e. HR>120, tremor, sweating, agitation, nausea)?: No Result: 4
[2022-06-07 12:09] LABS: Lab Add On Test DONE
[2022-06-07 12:36] LABS: Creatine Kinase 432 U/L (39-308)
--- NOTE | 2022-06-07 14:30 | PT.INTREAT ---
PT Notes Visit Reasons: Fall Inpatient Physical Therapy Treatment Note [facility] Date: 06/07/22 SUBJECTIVE: Jimenez c/o back pain with mvmt. He appears very sleepy, but orientates when spoken to. OBJECTIVE: [] PAIN: left LBP BED MOBILITY/TRANSFERS Supine-sit: S Sit-supine: S Sit-stand: SBA Stand-sit: SBA Bed-Chair: CGA Chair-bed: CGA GAIT Assistive Device: FWW Weight bearing: AT Assist: CGA/SBA Distance: approx 100' in am and 10' in pm. Deviation: pain with twisting motion therefore is difficult changing directions/ turning walker while ambulating. THEREX: performed a limited LE strengthening routine. AP, LAQ, seated hip flex x 10 each in am. ASSESSMENT: tolerated session fairly well post pain meds this am. Unable to tolerate much this pm due to increased pain. He seems to have muscle spasms with any active mvmt/ ex of LE, however this is greatly improved post pain med. Pain seems to limit his functional mobility greatly. Question if an antispasm med would help. PLAN: will continue to progress his functional mobility to tolerance per PT. TREATMENT CODE/TIME: 20 min in am and 10 min pm. [id number], [id number]
[2022-06-07] MEDS: Gabapentin 600 MG TAB PO ×2 (16:41→22:24)
--- NOTE | 2022-06-07 16:44 | CMPROGNOTE_ITS ---
- If Service Date Differs Date of service: 06/07/22 Time of Service: 16:44 Care Management Progress Note S/O: Jimenez was lying in bed when CM met with him. He reported that he is in a lot of pain today. His RN entered the room during the conversation and stated that she will advocate for a change of medication, as the regiment he is currently receiving does not appear to be controlling his pain. Jimenez was not able to engage well in conversation due to his pain at the time. CM will continue to follow. A: Jimenez is a 67 year old male admitted to [facility] on 06/05/22 with a fall. P: Anticipate Jimenez will return home when medically cleared. He will transport via private vehicle. He will follow up with his PCP and discharge plan of care. CM will continue to follow.
--- NOTE | 2022-06-07 18:35 | NUR.NOTE ---
Nursing Note: Pt is very lethargic at times with pinpoint pupils, but wakes up in pain, crying. Was able to walk the hallways today and back and forth to toilet. Pain meds administered prn per orders. CC made aware of situation.
[2022-06-07] MEDS: Lidocaine 5% Patch 2 PATCH TP (20:09)
[2022-06-07] MEDS: Magnesium Chloride 64 MG TABCR PO (20:10)
[2022-06-07] MEDS: QUEtiapine 50 MG TAB 100 MG PO (22:24)
[2022-06-08] VITALS (9 sets, daily range): BP systolic 150–174; BP diastolic 70–85; PULSE 64–88; RESP 8–20; TEMP 36.4–37; O2SAT 88–95
[2022-06-08] MEDS: Albuterol/Ipratropium 3 ML UPD VIAL IH ×2 (08:06→20:12)
[2022-06-08] MEDS: Budesonide/Formoterol 160/4.5 6 GM 60 PUFF INH IH ×2 (08:07→21:26)
[2022-06-08] MEDS: lamoTRIgine 25 MG TAB 75 MG PO ×2 (09:05→20:13)
[2022-06-08] MEDS: Magnesium Chloride 64 MG TABCR PO ×2 (09:06→20:14)
[2022-06-08] MEDS: Potassium Chloride 20 MEQ TABCR PO ×2 (09:06→20:14)
[2022-06-08] MEDS: Folic Acid 1 MG TAB PO (09:06)
[2022-06-08] MEDS: Thiamine 100 MG TAB PO (09:06)
[2022-06-08] MEDS: Gabapentin 300 MG CAP PO (09:07)
[2022-06-08] MEDS: Citalopram 20 MG TAB PO (09:07)
[2022-06-08] MEDS: LORazepam 1 MG TAB PO/SL (09:07)
[2022-06-08] MEDS: Omeprazole 20 MG CAPCR PO (09:08)
[2022-06-08] MEDS: Clopidogrel 75 MG TAB PO (09:08)
[2022-06-08] MEDS: Heparin 5,000 UNITS/ML VIAL 5000 UNITS SC ×3 (09:09→20:12)
[2022-06-08] MEDS: HYDROmorphone 2 MG/ML SYR 1 MG IVP ×3 (09:14→23:04)
[2022-06-08] MEDS: Normal Saline Flush 10 ML SYR IVP ×5 (09:14→23:05)
[2022-06-08] MEDS: Patch Removal 2 EACH TP (09:20)
[2022-06-08] MEDS: Fluticasone NASAL SPRAY 16 GM BTL NS ×2 (09:21→21:26)
[2022-06-08] MEDS: MAGNESIUM SULFATE 4 GM/100 ML BAG IVPB (12:21)
--- NOTE | 2022-06-08 13:21 | PT.INTREAT ---
Date of service: 06/08/22 Time of Service: 09:31 PT Notes Visit Reasons: Fall Inpatient Physical Therapy Treatment Note [facility] Date: 06/08/2022 PRECAUTIONS: Fall, LBP, activity as tolerated SUBJECTIVE: Jimenez is pleasant and agreeable to participating in PT. He reports that he continues to have severe back pain with movement and at rest. OBJECTIVE: PAIN: Patient c/o back pain with bed mobility and at times with gait training BED MOBILITY/TRANSFERS Supine-sit: Mod A with HOB at 40 degrees, requiring cueing for technique Sit-supine: SBA with HOB flat Sit-stand: CGA Stand-sit: CGA GAIT Assistive Device: FWW Weight bearing: Full Assist: CGA in a.m.; SBA in p.m. Distance: ~10' in a.m.; 80' in p.m. Deviation: Slow brittanie, frequent standing rests VITALS: SaO2 and HR continuously monitored by nursing THEREX: Patient was instructed in ankle pumps, quad sets and glute set exercises, completed in a long-sitting position in a.m.. In p.m., patient was instructed in ankle pumps, quad sets, glute sets, heel slides and hip abduction. Patient required both verbal and tactile cueing in p.m. due to drowsiness. ASSESSMENT: Patient tolerated session with complaint of increased back pain in a.m. with bed mobility and with gait training. In p.m., he demonstrates improved mobility and activity tolerance with decreased complaint of pain. PLAN: Continue with gait and transfer training and global strengthening, as tolerated and directed in PT's POC. TREATMENT CODE/TIME: Session 1: 23 minutes; [id number] x2 (09:15) Session 2: 31 minutes; [id number], [id number] (13:10)
[2022-06-08] MEDS: fentaNYL 25 MCG PATCH TD (15:02)
[2022-06-08] MEDS: Milk of Magnesia 30 ML CUP PO (15:47)
--- NOTE | 2022-06-08 17:46 | PDOC.CMPRO ---
- If Service Date Differs Date of service: 06/08/22 Time of Service: 17:46 Care Management Progress Note S/O: Jimenez was lying in bed when CM met with him. He stated that he is still in a lot of pain, although it is better than yesterday. CM discussed discharge options, and he stated that he would prefer to return home, but is agreeable to CM sending a referral to [facility]. He does not want to go to the [facility], and prefers to stay local. He stated that his two roommates are very supportive, and he does not move around much at home normally. CM sent the referral to [facility]. CM will continue to follow. A: Jimenez is a 67 year old male admitted to [facility] on 06/05/22 with a fall. P: Anticipate Jimenez will return home when medically cleared. He will transport via private vehicle. He will follow up with his PCP and discharge plan of care. CM will continue to follow.
[2022-06-08] MEDS: Lidocaine 5% Patch 2 PATCH TP (20:12)
[2022-06-08] MEDS: QUEtiapine 50 MG TAB 100 MG PO (21:26)
[2022-06-08] MEDS: Gabapentin 600 MG TAB PO (21:27)
[2022-06-09 00:36] VITALS: BP 168/70; PULSE 72; RESP 16; TEMP 37; O2SAT 91
[2022-06-09 05:26] VITALS: BP 166/81; PULSE 77; RESP 16; TEMP 36.9; O2SAT 90
[2022-06-09 06:43] LABS: MCV 92 fL (80-95); RBC 4.37 10^6/uL (4.36-5.78); RDW 12.8 % (11.8-14.1); RDW-SD 43.7 fL; WBC 7.27 10^3/uL (4.4-10.8)
[2022-06-09 06:51] LABS: Anion Gap 7.9 mmol/L (3-11); BUN 13 mg/dL (7-18); CO2 29.1 mmol/L (21.0-32.0); Calcium 9.6 mg/dL (8.5-10.1); Chloride 102 mmol/L (98-107); Estimated GFR 83.01 (mL/min/1.73m2); Glucose 102 mg/dL (74-106); Magnesium 1.6 mg/dL (1.8-2.4); Potassium 4.5 mmol/L (3.5-5.1); Sodium 139 mmol/L (136-145)
[2022-06-09 07:41] VITALS: BP 108/73; PULSE 77; RESP 18; TEMP 36.8; O2SAT 92
[2022-06-09] MEDS: Clopidogrel 75 MG TAB PO (07:45)
[2022-06-09] MEDS: lamoTRIgine 25 MG TAB 75 MG PO (07:46)
[2022-06-09] MEDS: Potassium Chloride 20 MEQ TABCR PO (07:46)
[2022-06-09] MEDS: Magnesium Chloride 64 MG TABCR PO (07:46)
[2022-06-09] MEDS: Gabapentin 300 MG CAP PO (07:47)
[2022-06-09] MEDS: Thiamine 100 MG TAB PO (07:47)
[2022-06-09] MEDS: Heparin 5,000 UNITS/ML VIAL 5000 UNITS SC (07:48)
[2022-06-09] MEDS: Omeprazole 20 MG CAPCR PO (07:48)
[2022-06-09] MEDS: Citalopram 20 MG TAB PO (07:48)
[2022-06-09] MEDS: Folic Acid 1 MG TAB PO (07:49)
[2022-06-09] MEDS: Fluticasone NASAL SPRAY 16 GM BTL NS (07:49)
[2022-06-09] MEDS: Patch Removal 2 EACH TP (08:21)
[2022-06-09] MEDS: Budesonide/Formoterol 160/4.5 6 GM 60 PUFF INH IH (08:59)
[2022-06-09 09:05] VITALS: PULSE 74; RESP 19; RESP 4; RESP 8; O2SAT 91
[2022-06-09] MEDS: Albuterol/Ipratropium 3 ML UPD VIAL IH (09:05)
[2022-06-09 09:06] VITALS: PULSE 76; RESP 19; RESP 8; O2SAT 92
[2022-06-09] MEDS: oxyCODONE 5 MG TAB PO (09:11)
[2022-06-09] MEDS: Normal Saline Flush 10 ML SYR IVP (09:36)
[2022-06-09] MEDS: Methylnaltrexone 12 MG/0.6 ML VIAL 8 MG SC (10:10)
[2022-06-09] MEDS: MAGNESIUM SULFATE 2 GM/50 ML BAG IVPB (12:12)
[2022-06-09] MEDS: Normal Saline 500 ML 25 ML IV (12:13)
--- NOTE | 2022-06-09 12:34 | PT.INTREAT ---
Date of service: 06/09/22 Time of Service: 09:30 PT Notes Visit Reasons: Fall Inpatient Physical Therapy Treatment Note [facility] Date: 06/09/2022 PRECAUTIONS: Fall, LBP, activity as tolerated SUBJECTIVE: Jimenez is pleasant and agreeable to participating in PT. He reports improvement in his LBP today compared to yesterday and previous days. He feels he is safe to return to home at this point. OBJECTIVE: Issued and fit FWW to patient. [employer] form completed and submitted to care management. PAIN: Patient c/o brief LBP with supine-sit transfer BED MOBILITY/TRANSFERS Log rolling: S with cueing for technique Supine-sit: S with HOB flat and cueing for technique Sit-stand: SBA Stand-sit: SBA GAIT Assistive Device: FWW Weight bearing: Full Assist: SBA Distance: 100' Deviation: Slow brittanie, frequent standing rests VITALS: HR continuously monitored by nursing STAIRS: Up/down 3x4 and 2x6 using B rails and a step-to pattern with SBA ASSESSMENT: Patient tolerated session with minimal complaint of LBP with bed mobility. He demonstrates improved mobility and activity tolerance and demonstrates ability to negotiate stairs with SBA only. PLAN: Patient to discharge to home later today, per provider. Recommend follow up with PT upon discharge. TREATMENT CODE/TIME: 30 minutes; [id number] x2 (09:30)
[2022-06-09 12:37] VITALS: BP 109/68; PULSE 76; RESP 16; TEMP 37; O2SAT 91
--- NOTE | 2022-06-09 12:37 | PGE_ITS ---
Date of Service Date of service: 06/08/22 Time of Service: 12:37 Assessment and Plan Assessment and plan (1) Fall: Status: Acute Assessment and plan: Fell 3 days ago; has fallen multiple times recently - PT is working with him Pain is improving Will continue PT Discussed with Dr Padilla (2) Acute kidney injury: Status: Resolved Assessment and plan: Resolved - IVF stopped - oral fluids (3) COPD (chronic obstructive pulmonary disease): Status: Acute Assessment and plan: Stable - continue current meds (4) Alcohol abuse: Assessment and plan: States he has not had an alcoholic beverage in two weeks - will do CIWA CIWA scores - probably related to his pain and not withdrawal (5) GERD (gastroesophageal reflux disease): Assessment and plan: Stable - continue home meds (6) Nicotine dependence, cigarettes, uncomplicated: Status: Acute Assessment and plan: Offer NRT (7) DVT prophylaxis: Status: Deleted Assessment and plan: Heparin (8) Discharge planning issues: Status: Deleted Assessment and plan: Home with pain meds and HH PT and OT; INFORMATION TECHNOLOGY ARCHITECT will be helpful as well. Discussed with Dr Padilla Subjective Subjective Patient reports: no new complaints, feels better, still having pain, pain is less, tolerating a regular diet, voiding w/o difficulty and no bowel movement; denies diarrhea, nausea or vomiting Interval history since last seen: States pain is much less now, tolerable and he is able to take deep breaths and ambulate with PT with less pain. Exam Narrative Exam Narrative: Constitutional: Alert and oriented x3. Appears stated age. Normal body habitus. Head: Normocephalic, no trauma. Eyes: Pupils PERRLA, Eyelids symmetrical without lesions, discharge, or swelling. ENT: Bilateral TM's WNL, External ear normal to inspection, Chest: RRR, Normal S1, S2, distal pulses intact. Continues to be tender to palpation left sided chest wall, no ecchymosis or contusions noted. Resp: Lungs diminished bilaterally, no wheezes, rales, or rhonchi. Musculoskeletal: Normal gait, 5/5 strength to all four extremities. Skin: Capillary refill less than 2 sec. does have some old healing bruises noted to his left upper extremity. Neurologic: Cranial nerves II-XII intact. Alert and oriented x 3. DTR's intact. Hematologic/Lymphatic: No ecchymosis, no lymphadenopathy. Objective Last Vital Signs Temp 36.8 C 06/09/22 07:41 Pulse 76 06/09/22 09:06 Resp 19 06/09/22 09:06 BP 108/73 06/09/22 07:41 Pulse Ox 92 06/09/22 09:06 Laboratory Results - last 24 hr 06/09/22 06/09/22 06:15 06:15 WBC 7.27 RBC 4.37 Hgb 14.0 Hct 40.0 MCV 92 MCH 32.0 MCHC 35.0 RDW 12.8 Plt Count MPV Sodium 139 Potassium 4.5 Chloride 102 Carbon Dioxide 29.1 Anion Gap 7.9 BUN 13 Creatinine 1.0 Est GFR (CKD-EPI 2020) 83.01 Glucose 102 Calcium 9.6 Magnesium 1.6 L PAWSS Have you Been Recently Intoxicated or Drunk Within the Last 30 days?: No Have you Ever Experienced Previous Episodes of Alcohol Withdrawal?: No Have you ever Experienced Withdrawal Seizures?: No Have you ever Experienced Delirium Tremens(DT)s?: No Have you ever undergone Alcohol Rehabilitation Treatment (i.e, inpt ot outpatient treatment programs)?: Yes Have you ever Experienced Blackouts?: Yes Have you ever Combined Alcohol with other Downers within the last 90 days?: No Have you ever Combined Alcohol with any other Substance of Abuse during the last 90 days?: Yes Positive Blood Alcohol level on Presentation? [PCS.BAL]: No Evidence of Increased Autonomic Activity (i.e. HR>120, tremor, sweating, agitation, nausea)?: No Result: 4
--- NOTE | 2022-06-09 12:37 | W.PM.DS.N ---
Date of service: 06/09/22 Time of Service: 12:38 DS: Diagnosis Discharge Diagnosis (1) Fall: Status: Acute (2) Acute kidney injury: Status: Acute (3) COPD (chronic obstructive pulmonary disease): Status: Acute (4) Alcohol abuse: (5) GERD (gastroesophageal reflux disease): (6) Nicotine dependence, cigarettes, uncomplicated: Status: Acute (7) DVT prophylaxis: Status: Acute (8) Discharge planning issues: Status: Acute Discharge Plan Disposition Patient Disposition: HOME W/HOME HEALTH SERVICE Condition: Improving Discharge Details Reason For Visit: Fall Admit Date/Time: 06/05/22 14:25 Admit Provider: Andrew Yarbrough Attending Provider: Andrew Yarbrough Primary Care Provider: Ness Diaz Hospital Course Hospital Course: Jimenez Marin is a 67-year-old male patient with history of ataxia, stroke, COPD, coronary artery disease, alcohol use disorder, COPD, GERD, hypertension presented to the [facility] emergency department with left-sided abdominal pain, left hip pain, and back pain.? Patient reported 2 days ago he fell.? Patient stated that he does not remember the circumstances of the fall at all.? Patient reported that prior to the fall he was having no symptoms and was doing well and in his usual state of health.? He does not know if he tripped/had a mechanical fall or if he fainted.? Patient reported that he woke up on the floor after the fall after an unknown amount of time.? Patient reported that for the past 2 days he has been unable to walk secondary to pain and has been crawling to the bathroom.? Patient reported pain in his left lower abdomen, left flank, and across his lower back.? He also reported left hip pain.? He reported mild headache.? He denied any other pain.? He reported chronic shortness of breath and cough that are unchanged.? He denied fever, vomiting, diarrhea, numbness, focal weakness, rash, skin wound, swelling.? He was placed on observation status on the medical unit for pain management.?He received IV medication and was started on a fentanyl transdermal patch. Today he had decreased pain and felt that working with PT went well and his pain is manageable. He will continue his home meds, take ibuprofen for break through pain and follow up with his PCP. Home Health PT/OT and TOWER CRANE OPERATOR are ordered. He is in agreement with this plan. Home Meds and New Rx's Prescriptions: New docusate sodium [Colace] 100 mg Capsule 100 mg PO TID PRN PRNQty: 0 0RF fentanyl 25 mcg/hr Patch 72 Hour 25 mcg transdermal Q72H Qty: 5 0RF folic acid 1 mg Tablet 1 mg PO DAILY Qty: 0 0RF lidocaine 5 % Adhesive Patch,Medicated 2 patch topical Q24H Qty: 30 0RF Mag 64 64 mg Tablet,Delayed Release (Dr/Ec) 64 mg PO BID Qty: 60 0RF Continued Breztri Aerosphere 160-9-4.8 mcg/actuation HFA aerosol inhaler 2 inh inhalation BID Qty: 10.7 8RF ipratropium-albuterol 0.5 mg-3 mg(2.5 mg base)/3 mL solution for nebulization 3 ml inhalation BID Qty: 360 12RF Rx Instructions: May also use every 4-6 hours as needed varenicline 0.5 mg tablet 1 mg PO BID Label Comments: pt reports not taking for a couple months meloxicam 15 mg tablet 15 mg PO DAILY multivitamin with iron Tablet 1 tab PO DAILY lidocaine 5 % cream 1 applic topical QID PRN (Reason: pain) Qty: 30 5RF Rx Instructions: Apply small amount to feet for pain prn gabapentin 600 mg tablet 600 mg PO .COMPLEX Qty: 360 3RF Rx Instructions: 600 mg PO am and 1200mg HS; with an extra 600mg once daily prn headache nicotine 14 mg/24 hr patch 24 hour 1 patch transdermal DAILY Qty: 28 2RF lisinopril 10 mg tablet 10 mg PO DAILY Qty: 90 0RF loratadine 10 mg tablet 10 mg PO DAILY Qty: 90 0RF citalopram 20 mg tablet 20 mg PO DAILY Qty: 90 0RF omeprazole 20 mg capsule,delayed release(DR/EC) 20 mg PO DAILY Qty: 90 0RF clopidogrel [Plavix] 75 mg tablet 75 mg PO DAILY Qty: 90 3RF albuterol sulfate [ProAir HFA] 90 mcg/actuation Hfa Aerosol Inhaler 2 puff Inhalation Q4H PRN atorvastatin 20 mg Tablet 20 mg PO DAILY lamotrigine [Lamictal] 25 mg tablet 75 mg PO BID quetiapine 50 mg tablet 100 mg PO QHS Rx Instructions: 1-2 tabs at bedtime fluticasone propionate [Flonase Allergy Relief] 50 mcg/actuation spray,suspension 2 spray INTRANASAL BID Discharge Instructions Instructions: Fentanyl (Absorbed through the skin), How to Stop Smoking (DC), Acute Kidney Injury (DC), Cigarette Smoking and Your Health (GEN), Fall Prevention for Older Adults (DC), Hypomagnesemia (DC) Additional Instructions: [facility] will call you to make an appointment with you to admit you to their services. Take Ibuprofen 600mg four times a day as needed for break through pain. Stand Alone Forms: Nursing Discharge Form Referrals: LING LEBLANC NP [ NON-[facility] STAFF PHYSICIAN] - 06/26/22 2:30 pm Activity:: Activity as Tolerated Equipment/Supplies:: Walker Diet:: Low Sodium Discharge Orders Discharge Orders: Discharge Order (Routine); Ordered 06/09/22 Ordered By: Yin Macias DS: Summary Time Spent with Patient providing and/or coordinating discharge services: Less than 30 minutes Status at Discharge Functional status at discharge: uses cane/walker Overall status at discharge: patient is progressing back to baseline Mental Status: mental status grossly normal Speech and Movement: speech and movement normal Mood: congruent mood Affect: normal affect Exam Psych Mental Status: mental status grossly normal Speech and Movement: speech and movement normal Mood: congruent mood Affect: normal affect DS: Data Vitals/I&O Vitals and I&O: Vital Signs Temperature 36.8 C 06/09/22 07:41 Temperature Source Tympanic 06/09/22 07:41 Pulse 76 06/09/22 09:06 Pulse Rhythm Regular 06/09/22 07:30 Pulse 77 06/05/22 14:01 Respiratory Rate 19 06/09/22 09:06 Respiratory Effort 06/09/22 07:30 Respiratory Depth Normal 06/09/22 07:30 Respiratory Pattern Normal 06/09/22 07:30 Blood Pressure 108/73 06/09/22 07:41 Blood Pressure Mean 78 06/05/22 14:01 Blood Pressure Position Supine 06/05/22 11:19 Pulse Oximetry 92 06/09/22 09:06 Oxygen Delivery Method Room Air 06/09/22 09:05 Oxygen Flow Rate 0 06/09/22 09:05 Fraction of Inspired Oxygen (FIO2) 28 06/06/22 07:00 Pain Level 7 06/09/22 11:18 Comment 06/07/22 11:20 Intake & Output 06/08/22 06/09/22 06/09/22 23:59 11:59 23:59 Intake Total 410 / 900 210 / 210 Output Total 1875 / 2325 200 / 200 Balance -1465 / -1425 Intake: IV Oral 400 / 880 200 / 200 Output: Urine 1875 / 2325 200 / 200 Other: Urine Color Yellow Yellow Straw Urine Appearance Clear Clear Urine Odor None Voiding Methods Toilet Urinal Data Completed and Pending Labs on day of discharge: Labs from last 24 hours 06/09/22 06/09/22 06:15 06:15 WBC 7.27 RBC 4.37 Hgb 14.0 Hct 40.0 MCV 92 MCH 32.0 MCHC 35.0 RDW 12.8 Plt Count MPV Sodium 139 Potassium 4.5 Chloride 102 Carbon Dioxide 29.1 Anion Gap 7.9 BUN 13 Creatinine 1.0 Est GFR (CKD-EPI 2020) 83.01 Glucose 102 Calcium 9.6 Magnesium 1.6 L PFSH All Active Problems (Updated 06/05/22 @ 20:58 by Yin Macias NP) Acute kidney injury (Acute) Fall (Acute) DVT prophylaxis (Acute) Discharge planning issues (Acute) Pleural nodule (Acute) Nicotine dependence, cigarettes, uncomplicated (Acute) Ataxia (Acute) Dizziness (Acute) Gait abnormality (Acute) Rib fractures (Acute) Memory loss (Acute) Stroke (Chronic) Post concussion syndrome (Acute) Sacroiliac joint pain (Chronic) COPD (chronic obstructive pulmonary disease) (Acute) History of coronary artery disease (Acute) Medical History Alcohol abuse In remission Allergic rhinitis Anxiety with depression Bipolar 1 disorder Chronic pain COPD (chronic obstructive pulmonary disease) Coronary artery disease Eczema GERD (gastroesophageal reflux disease) H/O onychomycosis HCAP (healthcare-associated pneumonia) HTN (hypertension) Insomnia Smoker Spine injury Surgical History History of coronary artery stent placement History of tonsillectomy Rotator Cuff Repair (06/30/16) RIGHT Family History Other Heart disease Hypertension Social History Smoking/Tobacco Use Status: Current every day Tobacco Type: cigarettes Smoking risk assessment performed?: Yes Alcohol Intake: current Alcohol Intake frequency: a few times a month Alcohol type: beer Drug use: Occasionally Substance use type: marijuana Household members: none Housing: other Details: mobil home Number of Children: 1 current occupation: Disabled Pets and animals: No What type of physical activity do you participate in: walking Seatbelt use: sometimes Do you feel safe at home: Yes Do you feel safe in your relationship?: Yes
--- NOTE | 2022-06-09 13:02 | PDOC.CMDIS ---
- If Service Date Differs Date of service: 06/09/22 Time of Service: 13:02 LACE Index Scoring Tool - Questions: Length of Stay (in days): 4 - 6 Acuity (Admit via E.D.?): Yes Comorbidities: Chronic Pulmonary Disease E.D. Visits: 1 - Answers: Total Score: 10 Risk of Readmission: High Risk Care Management Discharge Reason for Hospitalization: Fall Discharge Plan: Jimenez is discharged home via [facility] private vehicle. He will follow up with his community providers and discharge plan of care as prescribed. New RX's for Colace, Lidocaine patch and Mag 64 are printed and RX for Fentanyl patch was transmitted to [facility]. New [facility] RN/PT/OT/HYDROPONICS GROWER services are ordered. Jimenez will follow up with his PCP on 06/26/22, as scheduled. Patient/Family Education Needs: Review discharge instructions, limitations, medications and plan to follow up with community providers. Review ask me three. Services Needed at Discharge: Home Health Care Services ([facility] RN/PT/OT/HYDROPONICS [facility]. CM notified [facility]. Face to Face completed.)
--- NOTE | 2022-06-09 13:37 | PDOC.HHF2F ---
Home Health Certification Home Health Certification: 1. Encounter Date and Reason I certify that Jimenez Marin was seen by Yin Macias NP on 06/09/22 and that I had a [id number] encounter with this patient that meets the physician face to face encounter requirements. 2. Clinical Findings Supporting Skilled Need and Homebound Status I certify that home health services are medically necessary, include either intermittent residential and/or physical/speech therapy, and that this patient is homebound in that absences from the home require considerable and taxing effort and are infrequent or of short duration, or are attributable to the need to receive medical care. [X] (a) Attached documentation from encounter provides clinical findings supporting skilled need and homebound status (including what assistance patient requires to leave the home). The encounter with the patient was in whole, or in part, for the following medical condition, which is the primary reason for home health care: Fall Physical Therapy: Assess and plan an exercise program to regain movement and strength, teach safety, energy conservation, and any assistive device evaluation and education. Occupational Therapy: Assess and teach ability to perform ADL?s, safety. MARGIN ANALYST: Assessment of social and emotional factors related to chronic disease, appropriate action to obtain available financial and community resources available. Homebound: Patient is unable to ambulate safely without a walker or one person helping him on level ground. He is not safe to walk on uneven ground. He has several stairs into his residence that he can not safely navigate on his own. 3. Certification and Authentication I certify that I composed the above information based on my clinical judgment relating to this patient's medical condition and, if applicable, clinical findings communicated to me by the NPP or inpatient physician who performed the Home Health Referral. All further orders will be obtained through Asia Jones APRN
== END 2022-06-09 15:00 | disposition home health service (06) | DRG 948 ==
LOC: ER 12:30 → MS 15:24
PROVIDERS: Internal Medicine; Nurse Practitioner Family; Admitting Provider Internal Medicine; Emergency Provider Student in an Organized Health Care Education/Training Program; PCP Nurse Practitioner; Visit Provider Internal Medicine
DX: G89.11 Acute pain due to trauma (principal); N17.9 Acute kidney failure, unspecified; F10.10 Alcohol abuse, uncomplicated; J44.9 Chronic obstructive pulmonary disease, unspecified; F17.210 Nicotine dependence, cigarettes, uncomplicated; K21.9 Gastro-esophageal reflux disease without esophagitis; Z86.73 Personal history of transient ischemic attack (TIA), and cerebral infarction without residual deficits; R27.0 Ataxia, unspecified; I25.10 Atherosclerotic heart disease of native coronary artery without angina pectoris; I10 Essential (primary) hypertension; F41.8 Other specified anxiety disorders; G89.29 Other chronic pain; L30.9 Dermatitis, unspecified; G47.00 Insomnia, unspecified; W19.XXXA Unspecified fall, initial encounter; Z95.5 Presence of coronary angioplasty implant and graft; M54.50 Low back pain, unspecified; M25.552 Pain in left hip; R10.32 Left lower quadrant pain; F12.90 Cannabis use, unspecified, uncomplicated; R29.6 Repeated falls; Z91.81 History of falling
CPT/HCPCS: 36415; 80048; 80053; 82550; 85027; 86850; 86900; 86901; 87635; 93005; 94640; 96361; 96374; 96375; 96376; 97110; 97162; 97530; 99285; J1650; 70450; 71046; 74176; 81003; 81015; 83735; 84484; 85025; 93010; 99222; 99232; 99238; J1170; J1644; J2270; J3010; J3475; J3490; J7620

== ENCOUNTER 2022-06-30 15:30 | Outpatient (REF) | payer MEDICARE, MEDICAID, SELFPAY ==
[2022-06-30 15:51] LABS: ALT 28 U/L (16-63); AST 19 U/L (15-37); Albumin 3.8 g/dL (3.4-5.0); Alkaline Phosphatase 95 U/L (46-116); Anion Gap 4.2 mmol/L (3-11); BUN 22 mg/dL (7-18); Bilirubin, Total 0.3 mg/dL (0.2-1.0); CO2 34.8 mmol/L (21.0-32.0); Calcium 9.9 mg/dL (8.5-10.1); Chloride 101 mmol/L (98-107); Estimated GFR 83.01 (mL/min/1.73m2); Glucose 114 mg/dL (74-106); Magnesium 1.5 mg/dL (1.8-2.4); Potassium 4.7 mmol/L (3.5-5.1); Sodium 140 mmol/L (136-145); Total Protein 7.8 g/dL (6.4-8.2)
== END 2022-06-30 15:31 | disposition home or self-care (01) ==
LOC: NCHCN 15:30
PROVIDERS: PCP Nurse Practitioner Family; Visit Provider Nurse Practitioner Family
DX: E83.42 Hypomagnesemia (principal); N17.9 Acute kidney failure, unspecified
CPT/HCPCS: 80053; 83735

== ENCOUNTER → 2022-08-01 02:52 | Outpatient (CLI) | payer MEDICARE, MEDICAID, SELFPAY ==
--- NOTE | 2022-08-01 07:00 | DI.CT_ITS ---
Exam(s) CT CHEST WO EXAM: CT CHEST WO CLINICAL HISTORY: f/u pleural nodule, r22.2. TECHNIQUE: Multi planar reconstructions were performed. CONTRAST MATERIAL: None COMPARISON: CT CT CHEST LUNG CANCER SCREEN from 04/07/[address] CHEST WO from 01/27/2022 FINDINGS: CHEST: LUNGS: The previously described pleural based nodular infiltrate in the right upper lobe is unchanged in size and configuration from 01/27/2022, although it is noted that this nodule was not evident on CT scan of 04/07/2020. No other right lung findings. In the opposite-left lung base there are mild atelectatic markings again noted. No new pulmonary findings. No pleural effusions. No significant findings in trachea and mainstem bronchi MEDIASTINUM: There is no obvious hilar nor mediastinal adenopathy.no obvious axillary adenopathy CARDIAC: Heart size is normal. There is no pericardial effusion.Coronary artery calcifications noted . Caliber of the intrathoracic aorta is within normal limits. VISUALIZED UPPER ABDOMEN: OSSEOUS: No significant osseous lesions.The 2 previously described contiguous upper thoracic compress ion fractures are stable. No new fractures identified.. IMPRESSION: 1. Stable appearance of the right upper lobe pleural base nodular infiltrate, unchanged from 01/28/20. Recommend repeat scan in 6 months. 2. No new pulmonary findings nor pleural effusions and no intrathoracic adenopathy. 3. RADIATION DOSE DELIVERED: 398.47mGy.cm Total DLP DATA REPOSITORY: All CT scans at this facility are submitted to the National Radiology Data Registry (NRDR) Dose Index Registry (DIR) with the [employer] ([employer]). RADIATION OPTIMIZATION: All CT scans at this facility use at least one of these dose optimization te chniques: automated exposure control; mA and/or kV adjustment per patient size (includes targeted exa ms where dose is matched to clinical indication); or iterative reconstruction.
== END ==
PROVIDERS: PCP Nurse Practitioner Family; Visit Provider Student in an Organized Health Care Education/Training Program
DX: R22.2 Localized swelling, mass and lump, trunk (principal); R91.8 Other nonspecific abnormal finding of lung field
CPT/HCPCS: 71250

== ENCOUNTER → 2022-08-24 12:33 | Outpatient (BNVA) | payer MEDICARE, MEDICAID, SELFPAY | PROVIDERS: PCP Nurse Practitioner Family; Referring Provider Nurse Practitioner Family; Visit Provider Psychiatry & Neurology Neurology | DX: Z86.73 Personal history of transient ischemic attack (TIA), and cerebral infarction without residual deficits (principal); F39 Unspecified mood [affective] disorder; F10.10 Alcohol abuse, uncomplicated; R26.89 Other abnormalities of gait and mobility; G62.9 Polyneuropathy, unspecified; F07.81 Postconcussional syndrome; R41.3 Other amnesia; R42 Dizziness and giddiness | CPT/HCPCS: 99214 ==

== ENCOUNTER 2022-08-29 02:56 | Outpatient (CLI) | payer MEDICARE, MEDICAID, SELFPAY ==
[2022-08-29 13:27] LABS: ALT 43 U/L (16-63); AST 22 U/L (15-37); Albumin 3.9 g/dL (3.4-5.0); Alkaline Phosphatase 97 U/L (46-116); Bilirubin, Total 0.2 mg/dL (0.2-1.0); Total Protein 7.9 g/dL (6.4-8.2)
[2022-08-29 13:36] LABS: Bilirubin, Direct < 0.1 mg/dL (0.0-0.2)
== END 2022-08-29 02:57 | disposition home or self-care (01) ==
LOC: LBO 02:56
PROVIDERS: PCP Nurse Practitioner Family; Visit Provider Nurse Practitioner
DX: L60.3 Nail dystrophy (principal); Z79.899 Other long term (current) drug therapy
CPT/HCPCS: 36415; 80076

== ENCOUNTER 2022-12-06 03:17 | Outpatient (CLI) | payer MEDICARE, MEDICAID, SELFPAY ==
[2022-12-06 12:57] LABS: ALT 28 U/L (16-63); AST 14 U/L (15-37); Albumin 3.6 g/dL (3.4-5.0); Alkaline Phosphatase 70 U/L (46-116); Bilirubin, Direct 0.1 mg/dL (0.0-0.2); Bilirubin, Total 0.4 mg/dL (0.2-1.0); Total Protein 7.2 g/dL (6.4-8.2)
== END 2022-12-06 03:18 | disposition home or self-care (01) ==
LOC: LBO 03:21
PROVIDERS: PCP Nurse Practitioner Family; Visit Provider Nurse Practitioner
DX: B35.1 Tinea unguium (principal); Z79.899 Other long term (current) drug therapy; T36.7X5A Adverse effect of antifungal antibiotics, systemically used, initial encounter
CPT/HCPCS: 36415; 80076

== ENCOUNTER 2022-12-27 15:52 | Outpatient (REF) | payer MEDICARE, MEDICAID, SELFPAY ==
[2022-12-27 14:22] LABS: Abs Immature Grans 0.02 10^3/uL (0.0-0.06); Absolute Eosinophil Count 0.45 10^3/uL (0.0-0.7); Absolute Lymphocyte Count 0.99 10^3/uL (1.2-3.4); Absolute Monocyte Count 0.45 10^3/uL (0.1-0.8); Absolute Neutrophil Count 6.12 10^3/uL (1.2-6.7); Basophils % 1.2; Eosinophils % 5.5; HCT 50.2 % (40.0-50.0); HGB 16.9 g/dL (13.5-17.5); Immature Grans % 0.2; Lymphocytes % 12.2; MCH 31.6 pg (27.0-33.0); MCHC 33.7 % (32.0-36.0); MCV 94 fL (80-95); MPV 10.3 fL (8.0-11.0); Monocytes % 5.5; Neutrophils % 75.4; Platelet Count 202 10^3/uL (130-400); RBC 5.34 10^6/uL (4.36-5.78); RDW 14.6 % (11.8-14.1); WBC 8.13 10^3/uL (4.4-10.8)
[2022-12-27 15:02] LABS: Anion Gap 4.5 mmol/L (3-11); BUN 18 mg/dL (7-18); CO2 33.5 mmol/L (21.0-32.0); CREATININE 0.9 mg/dL (0.70-1.30); Calcium 9.3 mg/dL (8.5-10.1); Chloride 102 mmol/L (98-107); Estimated GFR 94.19 (mL/min/1.73m2); Glucose 122 mg/dL (74-106); Magnesium 1.6 mg/dL (1.8-2.4); Potassium 4.7 mmol/L (3.5-5.1); Sodium 140 mmol/L (136-145); TSH (W/Ref FT4) 1.89 uIU/mL (0.36-3.74); Vitamin B12 535 pg/mL (193-986)
[2022-12-27 15:03] LABS: Vitamin D 25 Total 25.7 ng/mL (30-100)
== END 2022-12-27 15:53 | disposition home or self-care (01) ==
LOC: NCHCN 15:52
PROVIDERS: PCP Nurse Practitioner Family; Visit Provider Nurse Practitioner Family
DX: R53.83 Other fatigue (principal); R63.4 Abnormal weight loss; F41.8 Other specified anxiety disorders; F31.89 Other bipolar disorder; F17.210 Nicotine dependence, cigarettes, uncomplicated; I10 Essential (primary) hypertension; Z79.899 Other long term (current) drug therapy
CPT/HCPCS: 80048; 82306; 82607; 83735; 84443; 85025

== ENCOUNTER 2023-05-28 09:07 | Emergency (ER) | payer MEDICARE, MEDICAID, SELFPAY ==
[2023-05-28] VITALS (44 sets, daily range): BP systolic 158–204; BP diastolic 77–135; PULSE 61–73; RESP 18; O2SAT 85–100
--- NOTE | 2023-05-28 09:23 | W.ED.GENAD ---
Discharge Plan Disposition Patient Disposition: Home Condition: Good Discharge Details Clinical Impression: LLQ abdominal pain, Constipation Primary Care Provider: LING LEBLANC ED Provider: Magen Vences Home Meds and New Rx's Prescriptions: New docusate sodium [Colace] 100 mg capsule 100 mg PO BID Qty: 20 0RF No Action clopidogrel [Plavix] 75 mg tablet 75 mg PO DAILY Qty: 90 3RF prednisone 5 mg tablet 5 mg PO DAILY Qty: 90 3RF Oxygen 2 l inhalation .exertion Qty: 1 0RF Rx Instructions: Use 2LPM with exertion meloxicam 15 mg tablet 15 mg PO DAILY multivitamin with iron Tablet 1 tab PO DAILY gabapentin 600 mg tablet 600 mg PO .COMPLEX Qty: 360 3RF Patient Comments: pt states not taking 05/28/23 Rx Instructions: 600 mg PO am and 1200mg HS; with an extra 600mg once daily prn headache lamotrigine [Lamictal] 100 mg tablet 100 mg PO DAILY lisinopril 10 mg tablet 10 mg PO DAILY Qty: 90 0RF loratadine 10 mg tablet 10 mg PO DAILY Qty: 90 0RF citalopram 20 mg tablet 20 mg PO DAILY Qty: 90 0RF omeprazole 20 mg capsule,delayed release(DR/EC) 20 mg PO DAILY Qty: 90 0RF Breztri [employer] 160-9-4.8 mcg/actuation HFA aerosol inhaler 2 inh inhalation BID Qty: 3 12RF albuterol sulfate 90 mcg/actuation HFA aerosol inhaler 2 puff inhalation Q6H PRN (Reason: shortness of breath or wheezing) Qty: 8.5 12RF ipratropium-albuterol 0.5 mg-3 mg(2.5 mg base)/3 mL solution for nebulization See Rx Instructions .ROUTE .COMPLEX Qty: 30 11RF Dose Instruction: USE 1 VIAL IN NEBULIZER DAILY - for rescue Rx Instructions: USE 1 VIAL IN NEBULIZER DAILY - for rescue cholecalciferol (vitamin D3) 75 mcg (3,000 unit) tablet 50 mcg PO DAILY vitamin B complex-folic acid 0.4 mg tablet 1 tab PO DAILY magnesium oxide 200 mg magnesium tablet 200 mg PO DAILY ketoconazole 2 % cream 1 applic topical BID Patient Comments: pt states not taking 05/28/23 fluticasone propionate 50 mcg/actuation spray,suspension 1 spray intranasal BID Patient Comments: pt states not taking 05/28/23 Rx Instructions: administer into each nostril atorvastatin 20 mg Tablet 20 mg PO DAILY lamotrigine [Lamictal] 25 mg tablet 75 mg PO BID Patient Comments: pt states not taking 05/28/23 quetiapine 50 mg tablet 100 mg PO QHS Rx Instructions: 1-2 tabs at bedtime fluticasone propionate [Flonase Allergy Relief] 50 mcg/actuation spray,suspension 2 spray INTRANASAL BID Discharge Instructions Instructions: Magnesium Citrate (By mouth), Constipation (ED) Additional Instructions: At this time your laboratory work-up has returned normal. Your CAT scan does not show any evidence of a kidney stone at this time. There is a notable amount of stool/feces. I suspect constipation is a notable component of your left-sided pain. Please take the magnesium citrate bottle when you get home. Please drink this with 5 to 10 cups of water or electrolyte solution. You will have notable cramping after this, as it would lead to colon cleansing and likely a large bowel movement for your constipated stool. If you notice any worsening of your symptoms, or any new symptoms such as vomiting, diarrhea, fever, chills, shortness of breath, chest pain, numbness, weakness, or fainting , please return immediately to the emergency department for reevaluation. Please follow up with your primary care provider as soon as possible for reassessment and reevaluation. As always, it was a pleasure participating in your medical care today. Referrals: LING LEBLANC, [employer]ST[employer]ER [Primary Care Provider] - Medical Decision Making 68-year-old male with a past medical history of COPD, coronary artery disease with stents on Plavix, bipolar type I, alcohol abuse in the past, GERD, hypertension, tobacco use, who presents today for evaluation of left flank pain. Patient states that this morning when he woke up he immediately had pain in his left flank which was severe and excruciating. He admits to occasional burning when he pees. He denies chest pain or shortness of breath. He denies numbness or tingling. He denies any other radiation of the pain anywhere else. He denies having symptoms like this before. No bloody stools. No vomiting or diarrhea. No other complaints at this time. Exam demonstrates left flank pain, left lower quadrant abdominal pain. No genital pain. Concern for potential kidney stone, diverticulitis, or other etiology. Symptoms appear less consistent with acute mesenteric ischemia. Will monitor closely and reassess. Will evaluate for these concerns concerning etiologies. 1:[address] results have returned, there is evidence of notable stool and gas, but no evidence of obstruction, diverticulitis, or kidney stone per radiology. Patient's pain is improved. Vital signs notably stable aside from mild hypertension which has improved. Urinalysis shows a small amount of RBCs and blood, but again no evidence of kidney stone per radiology. At this time I do suspect that the patient's notable fecal burden is likely a component of his symptomatology. We will give magnesium citrate for discharge for home use for colon cleansing. Labs, renal function, electrolytes, CBC are all unremarkable otherwise. Will recommend continued fluids at home. Discussed red flags for which to return. I have extensively reviewed the treatment plan and discharge instructions with the patient. I have addressed all patient concerns at this time. The patient was made aware of what symptoms to monitor for that would warrant a return to the emergency department. Discussed the plan with the patient, they demonstrate verbal understanding and agreement with our assessment and plan at this time. The documentation in this chart was dictated using [employer] dictation software. Please excuse any dictation errors. FINDINGS: VISUALIZED LUNG BASES: No nodules nor pleural effusions evident. ABDOMEN: There is no ascites. LIVER: There are no focal hepatic lesions evident. No dilated intrahepatic ducts. GALLBLADDER/BILIARY: No obvious gallbladder pathology. CBD is not dilated. PANCREAS: Pancreatic tail is atrophic or surgically absent. There are surgical clips in this region. Remainder of the pancreas appears unremarkable. SPLEEN: Peculiar appearance of the spleen but unchanged from CT scan of 919 22 and most probably consistent with this patient's past history of splenic injury. There is no acute laceration of the spleen and evident at this time. Splenic and portal veins are patent. ADRENALS: There are no significant adrenal masses. KIDNEYS:Right kidney unremarkable. Benign small cortical cysts noted in left kidney which do not require further imaging workup. Tiny nonobstructive 1-2 millimeter calculus noted in the left kidney. No hydronephrosis. No hydroureter.. ABDOMINAL AORTA: Heavily calcified and atherosclerotic but not significantly enlarged. Iliac arteries are also heavily calcified but not enlarged. Common femoral arteries also heavily calcified and not enlarged. LYMPH NODES:There is no retroperitoneal nor paraaortic adenopathy. ABDOMINAL WALL: No evidence of significant anterior abdominal wall nor inguinal hernia. GI: Abundant air is seen throughout the colon. Moderate amount of fecal material both out gross constipation. PELVIS: GI: Appendix is not able to be delineated as a separate structure. There is no obvious acute appendicitis.No evidence of sigmoid diverticulitis. LYMPH NODES: There is no intrapelvic nor inguinal adenopathy. REPRODUCTIVE: Prostate gland slightly prominent. Hypodense and contains calcifications. URINARY BLADDER: Mildly distended. No obvious mural mass nor radiopaque calculi in the lumen. OSSEOUS: No acute fractures. No osseous lesions. Dystrophic calcification around the left hip noted. IMPRESSION: 1. Appearance of the spleen and pancreatic tail reflect prior surgery and appears stable 2. Abundant air seen throughout the colon. Moderate amount of retained fecal material. No evidence of obvious sigmoid diverticulitis. No obvious appendicitis. 3. No evidence of obvious significant anterior abdominal hernia nor inguinal hernia. 4. No ascites. HPI General Date/Time Provider Initiated Documentation: 05/28/23 09:13. HPI Narrative: 68-year-old male with a past medical history of COPD, coronary artery disease with stents on Plavix, bipolar type I, alcohol abuse in the past, GERD, hypertension, tobacco use, who presents today for evaluation of left flank pain. Patient states that this morning when he woke up he immediately had pain in his left flank which was severe and excruciating. He admits to occasional burning when he pees. He denies chest pain or shortness of breath. He denies numbness or tingling. He denies any other radiation of the pain anywhere else. He denies having symptoms like this before. No bloody stools. No vomiting or diarrhea. No other complaints at this time. Related Data Home Medications Medication Instructions Recorded Confirmed citalopram 20 mg tablet 20 mg PO DAILY #90 tabs 08/19/18 05/28/23 lisinopril 10 mg tablet 10 mg PO DAILY #90 tabs 08/19/18 05/28/23 loratadine 10 mg tablet 10 mg PO DAILY #90 tabs 08/19/18 05/28/23 omeprazole 20 mg capsule,delayed 20 mg PO DAILY #90 caps 08/19/18 05/28/23 release meloxicam 15 mg tablet 15 mg PO DAILY 01/27/19 05/28/23 atorvastatin 20 mg tablet 20 mg PO DAILY 04/29/20 05/28/23 lamotrigine 25 mg tablet (Lamictal) 75 mg PO BID 10/06/20 01/22/23 multivitamin with iron 1 tab PO DAILY 10/06/20 05/28/23 quetiapine 50 mg tablet 100 mg PO QHS 10/06/20 05/28/23 fluticasone propionate 50 2 spray intranasal BID 11/03/20 05/28/23 mcg/actuation nasal spray,suspension (Flonase Allergy Relief) gabapentin 600 mg tablet 600 mg PO .COMPLEX #360 tabs 01/12/22 01/22/23 clopidogrel 75 mg tablet (Plavix) 75 mg PO DAILY #90 tabs 08/24/22 05/28/23 budesonide 160 mcg-glycopyr 9 2 inh inhalation BID #3 units 10/13/22 05/28/23 mcg-formot 4.8 mcg/actuation HFA inhaler ([employer]) Oxygen 2 l inhalation .exertion #1 supp 01/22/23 05/28/23 prednisone 5 mg tablet 5 mg PO DAILY #90 tabs 01/22/23 05/28/23 albuterol sulfate 90 mcg/actuation 2 puff inhalation Q6H PRN 02/20/23 05/28/23 aerosol inhaler shortness of breath or wheezing #8.5 grams ipratropium 0.5 mg-albuterol 3 mg See Rx Instructions .Route 02/26/23 05/28/23 (2.5 mg base)/3 mL nebulization .COMPLEX #30 ea soln cholecalciferol (vitamin D3) 75 50 mcg PO DAILY 04/04/23 05/28/23 mcg (3,000 unit) tablet fluticasone propionate 50 1 spray intranasal BID 04/04/23 04/25/23 mcg/actuation nasal spray,suspension ketoconazole 2 % topical cream 1 applic topical BID 04/04/23 04/25/23 magnesium oxide 200 mg PO DAILY 04/04/23 05/28/23 vitamin B complex-folic acid 0.4 1 tab PO DAILY 04/04/23 05/28/23 mg tablet lamotrigine 100 mg tablet 100 mg PO DAILY 04/25/23 05/28/23 (Lamictal) docusate sodium 100 mg capsule 100 mg PO BID #20 caps 05/28/23 (Colace) Previous Rx's Medication Instructions Recorded citalopram 20 mg tablet 20 mg PO DAILY #90 tabs 08/19/18 lisinopril 10 mg tablet 10 mg PO DAILY #90 tabs 08/19/18 loratadine 10 mg tablet 10 mg PO DAILY #90 tabs 08/19/18 omeprazole 20 mg capsule,delayed 20 mg PO DAILY #90 caps 08/19/18 release gabapentin 600 mg tablet 600 mg PO .COMPLEX #360 tabs 01/12/22 clopidogrel 75 mg tablet (Plavix) 75 mg PO DAILY #90 tabs 08/24/22 budesonide 160 mcg-glycopyr 9 2 inh inhalation BID #3 units 10/13/22 mcg-formot 4.8 mcg/actuation HFA inhaler ([employer]) Oxygen 2 l inhalation .exertion #1 supp 01/22/23 prednisone 5 mg tablet 5 mg PO DAILY #90 tabs 01/22/23 albuterol sulfate 90 mcg/actuation 2 puff inhalation Q6H PRN 02/20/23 aerosol inhaler shortness of breath or wheezing #8.5 grams ipratropium 0.5 mg-albuterol 3 mg See Rx Instructions .Route 02/26/23 (2.5 mg base)/3 mL nebulization .COMPLEX #30 ea soln docusate sodium 100 mg capsule 100 mg PO BID #20 caps 05/28/23 (Colace) Allergies Allergy/AdvReac Type Severity Reaction Status Date / Time carbamazepine Allergy Intermediate Hives Unverified 05/28/23 10:51 acetaminophen [From Tylenol] Allergy Verified 05/28/23 10:51 simvastatin Allergy Unverified 05/28/23 10:51 General Stated Complaint: FlankPain GEMA: 3 Review of Systems All systems reviewed & are unremarkable except as noted in HPI and below PFSH All Active Problems (Updated 05/28/23 @ 13:35 by Magen Vences DO) LLQ abdominal pain (Acute) Constipation (Acute) Weight loss (Acute) Chronic fatigue (Acute) Pulmonary cachexia due to chronic obstructive pulmonary disease (Acute) Night sweats (Acute) Unintentional weight loss (Acute) MAKI (acute kidney injury) (Acute) Lumbar transverse process fracture (Acute) Fall (Acute) Pleural nodule (Acute) Nicotine dependence, cigarettes, uncomplicated (Acute) Ataxia (Acute) Dizziness (Acute) Gait abnormality (Acute) Rib fractures (Acute) Memory loss (Acute) Stroke (Chronic) Post concussion syndrome (Acute) Sacroiliac joint pain (Chronic) COPD (chronic obstructive pulmonary disease) (Acute) History of coronary artery disease (Acute) Medical History Alcohol abuse In remission Allergic rhinitis Anxiety with depression Bipolar 1 disorder Chronic pain COPD (chronic obstructive pulmonary disease) Coronary artery disease Eczema GERD (gastroesophageal reflux disease) H/O onychomycosis H/O: stroke HCAP (healthcare-associated pneumonia) HTN (hypertension) Hx of dizziness Insomnia Smoker Spine injury Surgical History History of coronary artery stent placement History of tonsillectomy Rotator Cuff Repair (06/30/16) RIGHT Family History Other Heart disease Hypertension Social History Smoking/Tobacco Use Status: Current every day Tobacco Type: cigarettes Smoking packs per day: 0.5 Smoking cigarettes per day: 10.0 Smoking risk assessment performed?: Yes Alcohol Intake: current Alcohol Intake frequency: a few times a month Alcohol type: beer Drug use: Occasionally Substance use type: marijuana Household members: none Housing: other Details: mobil home Number of Children: 1 current occupation: Disabled Pets and animals: No What type of physical activity do you participate in: walking Seatbelt use: sometimes Do you feel safe at home: Yes Do you feel safe in your relationship?: Yes Exam Narrative Exam Narrative: 1.Const: Well-nourished, Well-developed, appearing stated age 2.Eyes: PERRL, no conjunctival injection, and symmetrical lids. 3.ENT: Atraumatic external nose and ears. Moist MM. Neck: Symmetric, trachea midline, No thyromegaly. 4.CVS: +S1/S2, No murmurs or gallops. Peripheral pulses 2+ and equal in all extremities. Brisk capillary refill in all extremities. 5.RESP: Unlabored respiratory effort. Clear to auscultation bilaterally. No wheezes rales or rhonchi 6.GI: Soft, nondistended, no guarding. Notable pain in the left lower abdomen and left flank. Worse with percussion and CVA tenderness. No genital pain or tenderness. 7.MSK: Normocephalic/Atraumatic, Extremities w/o deformity or ttp No cyanosis or clubbing, Normal movement of all extremities 8.Skin: Warm, Dry. No rashes or lesions. 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 Sensation grossly intact, no focal neurologic deficits. 10.Psych: (AAO) x3. Appropriate mood and affect Course Vital Signs Vital signs: Vital Signs Pulse 73 05/28/23 09:08 Respiratory Rate 18 05/28/23 09:08 Blood Pressure 188/90 H 05/28/23 09:08 Pulse Oximetry 93 05/28/23 09:08 Pulse 70 05/28/23 09:16 Respiratory Rate 18 05/28/23 09:08 Respiratory Effort Normal 05/28/23 09:16 Blood Pressure 177/90 H 05/28/23 09:16 Blood Pressure Mean 119 05/28/23 09:16 Pulse Oximetry 97 05/28/23 09:16 Oxygen Delivery Method Room Air 05/28/23 09:08 Oxygen Flow Rate 0 05/28/23 09:08 Pain Level 7 05/28/23 09:16 Comment pt states pain is worse with any movement 05/28/23 09:08 Procedures EJ/Peripheral Line Arm L: Time Out Performed: Yes Skin Cleansed in Sterile Fashion: Yes Size (gauge): 20 IV Secured and Dressing Applied: Yes Patient Tolerated Procedure: well and no complications
[2023-05-28] MEDS: MORPHine 4 MG/ML SYR IVP (09:56)
[2023-05-28] MEDS: Normal Saline 500 ML IV (09:57)
[2023-05-28] MEDS: Ondansetron 4 MG/2 ML VIAL IVP (09:57)
[2023-05-28 09:59] LABS: Lactate 1.1 mmol/L (0.6-1.4)
[2023-05-28 10:02] LABS: Abs Immature Grans 0.02 10^3/uL (0.0-0.06); Absolute Basophil Count 0.08 10^3/uL (0.0-0.2); Absolute Lymphocyte Count 1.33 10^3/uL (1.2-3.4); Absolute Monocyte Count 0.75 10^3/uL (0.1-0.8); Absolute Neutrophil Count 6.92 10^3/uL (1.2-6.7); Basophils % 0.8; Eosinophils % 4.2; HCT 43.8 % (40.0-50.0); Immature Grans % 0.2; MCH 32.1 pg (27.0-33.0); MCHC 34.2 % (32.0-36.0); MCV 94 fL (80-95); MPV 9.2 fL (8.0-11.0); Monocytes % 7.9; Neutrophils % 72.9; Platelet Count 242 10^3/uL (130-400); RBC 4.67 10^6/uL (4.36-5.78); RDW-SD 44.4 fL
[2023-05-28 10:19] LABS: ALT 41 U/L (16-63); AST 22 U/L (15-37); Albumin 3.6 g/dL (3.4-5.0); Alkaline Phosphatase 71 U/L (46-116); Anion Gap 3.6 mmol/L (3-11); BUN 16 mg/dL (7-18); Bilirubin, Total 0.4 mg/dL (0.2-1.0); CO2 33.4 mmol/L (21.0-32.0); CREATININE 0.8 mg/dL (0.70-1.30); Calcium 9.3 mg/dL (8.5-10.1); Chloride 97 mmol/L (98-107); Glucose 115 mg/dL (74-106); Lipase 15 U/L (16-77); Sodium 134 mmol/L (136-145)
[2023-05-28] MEDS: HYDROmorphone 2 MG/ML SYR 1 MG IVP (10:40)
[2023-05-28 11:17] LABS: Bilirubin Negative (Negative); Blood Moderate (Negative); Clarity Clear (Clear); Glucose Negative (Negative); Ketones Negative (Negative); Leukocyte Esterase Negative (Negative); Nitrite Negative (Negative); Specific Gravity 1.015 (1.005-1.025); Urobilinogen 0.2 mg/dL (Up to 0.2)
[2023-05-28 11:22] LABS: Bacteria Rare HPF (Negative); Crystals Negative HPF (Negative); Epithelial Cells Rare HPF (Negative); Mucus Negative (Negative); WBC 0-2 HPF (0-5)
[2023-05-28 11:23] LABS: C & S Indicated? No; Casts Negative LPF (Negative)
--- NOTE | 2023-05-28 12:10 | DI.CT_ITS ---
Exam(s) CT ABDOMEN PELVIS W EXAM: CT ABDOMEN PELVIS W CLINICAL HISTORY: LLQ abdominal pain, r/o tics vs stone. TECHNIQUE: Imaging Protocol: Axial computed tomography images with coronal and sagittal reformatted images were created and reviewed CONTRAST MATERIAL: Intravenous: Omnipaque-350 100cc Oral: None COMPARISON: CT CT ABDOMEN PELVIS WO from 06/05/2022 FINDINGS: VISUALIZED LUNG BASES: No nodules nor pleural effusions evident. ABDOMEN: There is no ascites. LIVER: There are no focal hepatic lesions evident. No dilated intrahepatic ducts. GALLBLADDER/BILIARY: No obvious gallbladder pathology. CBD is not dilated. PANCREAS: Pancreatic tail is atrophic or surgically absent. There are surgical clips in this region. Remainder of the pancreas appears unremarkable. SPLEEN: Peculiar appearance of the spleen but unchanged from CT scan of 919 22 and most probably cons istent with this patient's past history of splenic injury. There is no acute laceration of the splee n and evident at this time. Splenic and portal veins are patent. ADRENALS: There are no significant adrenal masses. KIDNEYS:Right kidney unremarkable. Benign small cortical cysts noted in left kidney which do not req uire further imaging workup. Tiny nonobstructive 1-2 millimeter calculus noted in the left kidney. No hydronephrosis. No hydroureter.. ABDOMINAL AORTA: Heavily calcified and atherosclerotic but not significantly enlarged. Iliac arterie s are also heavily calcified but not enlarged. Common femoral arteries also heavily calcified and no t enlarged. LYMPH NODES:There is no retroperitoneal nor paraaortic adenopathy. ABDOMINAL WALL: No evidence of significant anterior abdominal wall nor inguinal hernia. GI: Abundant air is seen throughout the colon. Moderate amount of fecal material both out gross cons tipation. PELVIS: GI: Appendix is not able to be delineated as a separate structure. There is no obvious acute appendi citis.No evidence of sigmoid diverticulitis. LYMPH NODES: There is no intrapelvic nor inguinal adenopathy. REPRODUCTIVE: Prostate gland slightly prominent. Hypodense and contains calcifications. URINARY BLADDER: Mildly distended. No obvious mural mass nor radiopaque calculi in the lumen. OSSEOUS: No acute fractures. No osseous lesions. Dystrophic calcification around the left hip noted . IMPRESSION: 1. Appearance of the spleen and pancreatic tail reflect prior surgery and appears stable 2. Abundant air seen throughout the colon. Moderate amount of retained fecal material. No evidence of obvious sigmoid diverticulitis. No obvious appendicitis. 3. No evidence of obvious significant anterior abdominal hernia nor inguinal hernia. 4. No ascites. Discussed with ER physician. RADIATION DOSE DELIVERED: 535.79mGy.cm Total DLP DATA REPOSITORY: All CT scans at this facility are submitted to the National Radiology Data Registry (NRDR) Dose Index Registry (DIR) with the [employer] (ACR). RADIATION OPTIMIZATION: All CT scans at this facility use at least one of these dose optimization te chniques: automated exposure control; mA and/or kV adjustment per patient size (includes targeted exa ms where dose is matched to clinical indication); or iterative reconstruction.
[2023-05-28] MEDS: Normal Saline - Diluent 50 ML VIAL IJ (12:11)
[2023-05-28] MEDS: Omnipaque 350 MG/ML 500 ML BTL-Imaging package 100 ML IJ (12:12)
[2023-05-28] MEDS: Ketorolac 30 MG/ML VIAL IVP (12:31)
[2023-05-28] MEDS: Tamsulosin 0.4 MG CAPCR 0.8 MG PO (12:32)
[2023-05-28] MEDS: Magnesium Citrate 300 ML BTL 150 ML PO (13:55)
== END 2023-05-28 13:52 | disposition home or self-care (01) ==
PROVIDERS: Emergency Provider Student in an Organized Health Care Education/Training Program; PCP Nurse Practitioner Family
DX: K59.00 Constipation, unspecified (principal); R10.32 Left lower quadrant pain; J44.9 Chronic obstructive pulmonary disease, unspecified; F17.210 Nicotine dependence, cigarettes, uncomplicated; I25.10 Atherosclerotic heart disease of native coronary artery without angina pectoris
CPT/HCPCS: 80053; 83690; 96361; 96374; 96375; 99285; 74177; 81003; 81015; 83605; 85025; 99284; J1170; J1885; J2270; J2405

== ENCOUNTER → 2023-07-20 00:31 | Outpatient (CLI) | payer MEDICARE, MEDICAID, SELFPAY ==
--- NOTE | 2023-07-20 13:15 | DI.CT_ITS ---
Exam(s) CT CHEST WO EXAM: CT CHEST WO CLINICAL HISTORY: f/u RUL nodules,R91.8. TECHNIQUE: Imaging protocol: Axial computed tomography images were obtained and coronal and sagittal reformatted images were created and reviewed. CONTRAST MATERIAL: Noncontrast COMPARISON: CT CT CHEST LUNG CANCER SCREEN from 04/07/[address] HEAD CERV SPINE FACIAL WO from 04/29/[address] CHEST LUNG CANCER SCREEN from 10/12/[address] CHEST WO from 08/01/2022 FINDINGS: Pulmonary parenchyma: No consolidation. There has been no change in the somewhat triangular-shaped pl eural-based area of nodularity versus scarring in the lateral right upper lobe. There are now mild i nfiltrates seen in both upper lobes, not present previously. Emphysema: Moderate to severe centrilobular emphysema in both upper and lower lobes.. Tracheobronchial tree: No mucous plugging. No bronchiectasis . Interstitial changes: None. Pleura: No effusion or pneumothorax. Heart: The heart is mildly dilated. The coronary arteries show severe calcifications. Aorta: Thoracic aorta non-dilated. Moderateatherosclerotic changes. Lymph nodes: No enlarged lymph nodes. Bones: Degenerative changes are seen. Stable upper thoracic compression fractures. Upper abdomen: No acute findings. Soft tissues: Unremarkable. IMPRESSION: Change in small triangular pleural-based density in the lateral right upper lobe which has the appear ance of scarring. There are new mild infiltrates in both upper lobes. RADIATION DOSE DELIVERED: Total DLP Total DLP DATA REPOSITORY: All CT scans at this facility are submitted to the National Radiology Data Registry (NRDR) Dose Index Registry (DIR) with the [employer] (A[employer]). RADIATION OPTIMIZATION: All CT scans at this facility use at least one of these dose optimization te chniques: automated exposure control; mA and/or kV adjustment per patient size (includes targeted exa ms where dose is matched to clinical indication); or iterative reconstruction.
== END ==
PROVIDERS: PCP Nurse Practitioner Family; Visit Provider Student in an Organized Health Care Education/Training Program
DX: R91.8 Other nonspecific abnormal finding of lung field (principal)
CPT/HCPCS: 71250; 93306

== ENCOUNTER → 2023-07-20 00:47 | Outpatient (CLI) | payer MEDICARE, MEDICAID, SELFPAY ==
--- NOTE | 2023-07-20 13:05 | DI.US_ITS ---
APPROVED REPORT EXAM: Comprehensive 2D, Doppler, and color-flow Echocardiogram Patient Location: Out-Patient Hospitality Associate: Birgit Bueno RDCS (AE) Indications: HTN, CAD,COPD, Fatigue Chronic SOB, weight loss, smoker Other Information Study Quality: Fair. Technically limited study due to , body habitus. Conclusion Normal left ventricular wall thickness and chamber size. Ejection fraction is 50 to 55%. There are no segmental wall motion abnormalities Right ventricle appears grossly normal in size and function Both atria are grossly normal in size Aortic valve is trileaflet and mildly sclerotic without stenosis or regurgitation Normal mitral valve with mild regurgitation Wall motion Left Ventricle The left ventricle is normal size. Left ventricular systolic function is borderline There is normal l eft ventricular wall thickness. There are no segmental wall motion abnormalities There is no ventricu lar septal defect visualized. LVEF is 50-55%. Right Ventricle The right ventricle is normal size. Right ventricular systolic function is grossly normal. Atria The left atrium size is grossly normal. The right atrium size is normal. The interatrial septum is in tact with no evidence for an atrial septal defect. Aortic Valve Aortic valve is mildly sclerotic Aortic valve is trileaflet. There is no aortic valvular stenosis. No aortic regurgitation is present. Mitral Valve The mitral valve is normal in structure. No evidence of mitral valve stenosis. Mild mitral regurgitat ion. Tricuspid Valve The tricuspid valve is normal in structure. There is no tricuspid valve stenosis. Trace tricuspid reg urgitation. Unable to assess PA pressure. Pulmonic Valve The pulmonary valve is normal in structure. There is no pulmonic valvular stenosis. There is no pulmo nigel valvular regurgitation. Great Vessels The aortic root is normal in size. Aortic arch is not well visualized. IVC is normal in size and leo apses >50% with inspiration. Pericardium There is no pericardial effusion. 2D Dimensions IVSD d PLAX 0.80 cm M: 0.6-1.2 Ao Root d 3.05 cm M: 3.1 - 3.7 LVPW d PLAX 0.76 cm M: 0.6 - 1.2 LVID d PLAX 4.48 cm M: 4.2 - 5.8 LVDs 3.48 cm M: 2.5 - 4.0 LV EF Teichholz 45.2 % FS 22.35 % LV EDV (Teich) 91.4 mL LV ESV (Teich) 50.1 mL M-Mode TAPSE 1.55 cm (M/F) >1.7 Auto EF LV EDV A4C 94.3 mL LV EDV A2C 110.2 mL LV EDV BP LV ESV A4C 59.0 mL LV ESV A2C 65.7 mL LV ESV BP LVEF(%) A4C 37.4 % LVEF(%) A2C 40.4 % LVEF(%) BP LV SV A4C 35.3 ml LV SV A2C 44.5 ml LV SV BP LV CO A4C 2.6 L/min LV CO A2C 3.4 L/min LV CO BP HR A4C 74.08 BPM HR A2C 77.42 BPM LV EDV Index (BP) LA Volume LA Length A4C 4.3 cm LA Length A2C 4.7 cm LA Area A4C s 13.34 cm2 LA Area A2C s 11.62 cm2 LA Vol A4C A-L 34.98 mL LA Vol A2C A-L 24.30 mL LA Vol Biplane A-L 30.5 mL LA Vol/BSA A4C A-L LA Vol/BSA A2C A-L LA Vol/BSA BP A-L 18.8 mL/m2 LA Vol A4C MOD 32.6 mL LA Vol A2C MOD 22.2 mL LA Vol BP MOD 28.0 mL LV Diastology MV E' medial 0.077 (>0.07 m/s) MV E Vmax 0.42 (0.4-1.3 m/s) MV E/E' MED 5.47 (<14) MV A Vmax 0.60 (0.4-1.3 m/s) MV E' lateral 0.067 (>0.1 m/s) E/A Ratio 0.7 MV E/E' LAT 6.27 (<14) MV E' Average 0.072 m/s MV E/E'(average) 5.84 Aortic Valve AoV Vmax 0.97 m/s LVOT Vmax 0.84 m/s AoV Peak Grad 3.8 mmHg LVOT Peak Grad 2.8 mmHg AoV Area (Vmax) 2.41 cm2 LVOT VTI 0.160 m AoV VTI 0.198 m LVOT Mean Grad 1.3 mmHg AoV Mean Marlon. 0.65 m/s LVOT SV 44.91 mL AoV Mean Grad 2.0 mmHg LVOT Diam s 1.85 cm AoV Area (VTI) 2.27 cm2 Velocity Ratio 0.87 Mitral Valve MV DT 240 (160-240 msec) MV Vmax TIPS 0.61 m/s MV Mean Grad 0.5 (<2mmHg) MV VTI 0.135 m Pulmonary Valve PV Vmax 0.95 (0.5-1.5 m/s) RVOT Vmax 0.67 m/s PV Peak Grad 3.6 mmHg RVOT Peak Gr. 1.8 mmHg PV Mean Marlon 0.71 m/s RVOT VTI 0.137 m PV Mean Grad 2.1 mmHg RVOT Mean Gr. 1.0 mmHg Tricuspid Valve RA Pressure 3.00 mmHg TV S' 0.17 m/s
== END ==
PROVIDERS: PCP Nurse Practitioner Family; Visit Provider Nurse Practitioner Family
DX: I10 Essential (primary) hypertension (principal)
CPT/HCPCS: 93306

== ENCOUNTER 2023-07-30 08:49 | Outpatient (CLI) | payer MEDICARE, MEDICAID, SELFPAY ==
--- NOTE | 2023-07-30 08:45 | RT.EKG_ITS ---
APPROVED REPORT Exam: Resting ECG Reason for Exam: CAD Patient Location: O HR:84 bpm ECG Measurements Heart Rate 84 AXIS KS 143 P 73 QRSd 95 QRS 66 QT 386 T 86 QTc 457 Conclusion Sinus rhythm...normal P axis, V-rate 50- 99 Precordial leads are misplaced Otherwise normal
== END 2023-07-30 08:50 | disposition home or self-care (01) ==
LOC: DI.CARD 08:50
PROVIDERS: PCP Nurse Practitioner Family; Visit Provider Internal Medicine Cardiovascular Disease
DX: I10 Essential (primary) hypertension (principal); Z86.79 Personal history of other diseases of the circulatory system; Z95.5 Presence of coronary angioplasty implant and graft
CPT/HCPCS: 93010

== ENCOUNTER → 2023-07-30 13:58 | Outpatient (BNVA) | payer MEDICARE, MEDICAID, SELFPAY | PROVIDERS: PCP Nurse Practitioner Family; Referring Provider Nurse Practitioner Family; Visit Provider Internal Medicine Cardiovascular Disease | DX: I25.10 Atherosclerotic heart disease of native coronary artery without angina pectoris (principal); J43.9 Emphysema, unspecified | CPT/HCPCS: 93005; 99214 ==

== ENCOUNTER → 2023-08-23 14:58 | Outpatient (BNVA) | payer MEDICARE, MEDICAID, SELFPAY | PROVIDERS: PCP Nurse Practitioner Family; Visit Provider Psychiatry & Neurology Neurology | DX: G43.009 Migraine without aura, not intractable, without status migrainosus (principal); Z86.73 Personal history of transient ischemic attack (TIA), and cerebral infarction without residual deficits; F07.81 Postconcussional syndrome; R41.3 Other amnesia; R26.9 Unspecified abnormalities of gait and mobility; G62.9 Polyneuropathy, unspecified; R42 Dizziness and giddiness | CPT/HCPCS: 99214 ==

== ENCOUNTER → 2023-10-23 13:23 | Outpatient (BNVA) | payer MEDICARE, MEDICAID, SELFPAY | PROVIDERS: PCP Nurse Practitioner Family; Referring Provider Nurse Practitioner Family; Visit Provider Student in an Organized Health Care Education/Training Program | DX: J44.9 Chronic obstructive pulmonary disease, unspecified (principal); R64 Cachexia; R22.2 Localized swelling, mass and lump, trunk; F17.210 Nicotine dependence, cigarettes, uncomplicated | CPT/HCPCS: 99214 ==

== ENCOUNTER 2024-01-14 15:15 | Outpatient (REF) | payer MEDICARE, MEDICAID, SELFPAY ==
[2024-01-14 15:43] LABS: HGB 15.2 g/dL (13.5-17.5); MCH 31.4 pg (27.0-33.0); MCHC 33.8 % (32.0-36.0); MCV 93 fL (80-95); MPV 9.6 fL (8.0-11.0); Platelet Count 316 10^3/uL (130-400); RBC 4.84 10^6/uL (4.36-5.78); RDW 13.4 % (11.8-14.1); RDW-SD 46.2 fL
[2024-01-14 16:11] LABS: ALT 37 U/L (16-63); AST 26 U/L (15-37); Albumin 3.8 g/dL (3.4-5.0); Alkaline Phosphatase 89 U/L (46-116); Anion Gap 7.6 mmol/L (3-11); BUN 34 mg/dL (7-18); Bilirubin, Total 0.4 mg/dL (0.2-1.0); CO2 31.4 mmol/L (21.0-32.0); CREATININE 1.2 mg/dL (0.70-1.30); Calcium 9.7 mg/dL (8.5-10.1); Chloride 100 mmol/L (98-107); Estimated GFR 66.28 (mL/min/1.73m2); Glucose 128 mg/dL (74-106); Potassium 4.4 mmol/L (3.5-5.1); Sodium 139 mmol/L (136-145); Total Protein 7.8 g/dL (6.4-8.2)
[2024-01-14 16:13] LABS: Bilirubin Negative (Negative); Blood Large (Negative); Clarity Sl Cloudy (Clear); Glucose Negative (Negative); Ketones Negative (Negative); Leukocyte Esterase Trace (Negative); Nitrite Negative (Negative); Urobilinogen 0.2 mg/dL (Up to 0.2)
[2024-01-14 16:29] LABS: Bacteria Rare HPF (Negative); C & S Indicated? No; Casts Negative LPF (Negative); Crystals Negative HPF (Negative); Epithelial Cells Rare HPF (Negative); Mucus Negative (Negative); RBC >50 HPF (0-2); WBC 0-2 HPF (0-5)
[2024-01-14 16:30] LABS: Other Cells Few Renal (Negative)
== END 2024-01-14 15:16 | disposition home or self-care (01) ==
LOC: NCHCN 15:15
PROVIDERS: PCP Nurse Practitioner Family; Visit Provider Nurse Practitioner Family
DX: R30.0 Dysuria (principal)
CPT/HCPCS: 80053; 85027; 81003; 81015

== ENCOUNTER → 2024-01-21 09:11 | Outpatient (BNVA) | payer MEDICARE, MEDICAID, SELFPAY | PROVIDERS: PCP Nurse Practitioner Family; Referring Provider Nurse Practitioner Family; Visit Provider Physician Assistant Surgical | DX: J44.9 Chronic obstructive pulmonary disease, unspecified (principal); R22.2 Localized swelling, mass and lump, trunk; R64 Cachexia; Z87.891 Personal history of nicotine dependence | CPT/HCPCS: 99214 ==

== ENCOUNTER 2024-04-16 13:54 | Outpatient (REF) | payer MEDICARE, MEDICAID, SELFPAY ==
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
--- OUTSIDE RECORDS SUMMARY | 2024-04-16 13:56 | XMS_ITS | Encounter Summary ---
Author Organization [facility] [place] [address] Care Team Providers Care Medical Videographer Name Role Phone None Primary Care Provider Unavailabl e Reason for Referral * Diagnostic Test (Routine) - Closed Specialty Diagnoses / Procedures Referred By Contac t Referred To Contact Radiology Diagnoses Acute pain of right shoulder Procedures MRI Shoulder Right WO Contrast (GENERIC) Edgar Escobar MD [facility] [place] [address] [place] [address] Referral ID Status Reason Start Date Expiration Date V isits Requested Visits Authorized [id number] Closed Specialty Service Requested 03/16/2016 06/14/2016 1 1 Reason for Visit * Diagnostic Test (Routine) - Closed Specialty Diagnoses / Procedures Referred By Contac t Referred To Contact Radiology Diagnoses Acute pain of right shoulder Procedures MRI Shoulder Right WO Contrast (GENERIC) Edgar Escobar MD [facility] [place] [address] [place] [address] Referral ID Status Reason Start Date Expiration Date V isits Requested Visits Authorized [id number] Closed Specialty Service Requested 03/16/2016 06/14/2016 1 1 Encounter Details Date Type Department Care Team (Latest Contact Info) Description 03/23/2016 6:59 AM EDT - 03/23/2016 11:59 PM EDT [place] [address] Braydon Carrillo MD [facility] DR ORTHOPAED[facility] [place] [address] Acute pain of right shoulder Discharge Disposition: Home Social History Tobacco Use Types Packs/Day Years [...] on file documented as of this encounter Medications at Time of Discharge Medication Sig Dispensed Refills Start Date End Date citalopram (CELEXA) 20 mg Tablet Take 20 mg by mouth daily. tiotropium (SPIRIVA WITH HANDIHALER) 18 mcg Capsule, w/Inhalation Device Inhale 18 mcg into the lungs daily. b complex vitamins Capsule Take 1 capsule by mouth daily. 05/07/2020 cyclobenzaprine (FLEXERIL) 5 mg Tablet Take 5 mg by mouth 2 times daily. 05/07/2020 FOLIC ACID/MV,FE,MIN (CENTRUM ORAL) Take 1 tablet by mouth daily. 04/11/2016 folic acid (FOLVITE) 1 mg Tablet Take 1 mg by mouth daily. 05/07/2020 cyanocobalamin, vitamin B-12, 100 mcg Tablet Take 100 mcg by mouth daily. 05/07/2020 docusate sodium (COLACE) 100 mg Capsule Take 100 mg by mouth 2 times daily. 05/07/2020 ergocalciferol (VITAMIN D) 50,000 unit Capsule Take 50,000 Units by mouth every 30 days. 05/07/2020 acetaminophen (TYLENOL) 325 mg Tablet Take 975 mg by mouth 3 times daily as needed for Pain. 05/07/2020 ibuprofen (ADVIL;MOTRIN) 400 mg Tablet Take 400 mg by mouth nightly as needed for Pain. 05/07/2020 documented as of this encounter Plan of Treatment Not on file documented as of this encounter Procedures Procedure Name Priority Date/Time Associated Diagnosis Comments MRI SHOULDER RIGHT WO CONTRAST Routine 03/23/2016 8:00 AM EDT Acute pain of right shoulder documented in this encounter Results * MRI Shoulder Right [...] at 03/23/2016 10:29 AM Braydon Carrillo MD [facility] MRI ORDERABLES documented in this encounter Visit Diagnoses Diagnosis Acute pain of right shoulder documented in this encounter Care Teams Medical Videographer Relationship Specialty Start Date End Date None None PCP - General 08/09/10 07/22/18 documented as of this encounter
--- OUTSIDE RECORDS SUMMARY | 2024-04-16 13:56 | XMS_ITS | Encounter Summary ---
Author Organization [facility] Address [facility] [place] [address] Care Team Providers Care Parts Identification Technician Name Role Phone None Primary Care Provider Unavailabl e Encounter Details Date Type Department Care Team (Latest Contact Info) Description 06/14/2018 - 06/14/2018 12:04 AM EDT Hospital Encounter [place] [address] Jose A Sargent MD [facility] [place] [address] Discharge Disposition: Home Social History Tobacco Use [...] Sig Dispensed Refills Start Date End Date multivitamin Vqrv-Mi-OQ-Min (THERAPEUTIC-M) 27-0.4 mg Tablet Take 1 tablet by mouth daily. albuterol (PROAIR HFA) 90 mcg/actuation HFA Aerosol Inhaler Inhale 2 puffs into the lungs every 4 hours as needed for Wheezing. Use with spacer ipratropium-albuterol (DUONEB) 0.5 mg-3 mg(2.5 mg base)/3 mL Solution for Nebulization Take 3 mLs by nebulization every 4 hours as needed. citalopram (CELEXA) 20 mg Tablet Take 20 mg by mouth daily. tiotropium (SPIRIVA WITH HANDIHALER) 18 mcg Capsule, w/Inhalation Device Inhale 18 mcg into the lungs daily. oxyCODONE (ROXICODONE) 5 mg Tablet Take 1 tablet by mouth every 4 hours as needed for Pain (For pain 7-10 take 5mg). 10 tablet 06/18/2018 05/07/2020 b complex vitamins Capsule Take 1 capsule by mouth daily. 05/07/2020 cyclobenzaprine (FLEXERIL) 5 mg Tablet Take 5 mg by mouth 2 times daily. 05/07/2020 folic acid (FOLVITE) 1 mg Tablet Take [...] Procedure Name Priority Date/Time Associated Diagnosis Comments FILM LIBRARY STORAGE ONLY DX CHEST Routine 06/14/2018 12:00 AM EDT documented in this encounter Results * Film Library- Storage Only DX Chest (06/14/2018 12:00 AM EDT) Narrative RICH - 06/14/2018 4:10 PM EDT This exam is for storage only and is auto-finalizing. Jose A Sargent MD IMG FILM LIBRARY ORD ERABLES RICH [place], [place] documented in this encounter Visit Diagnoses Not on filedocumented in this encounter Care Teams Parts Identification Technician Relationship Specialty Start Date End Date None None PCP - General 08/09/10 07/22/18 documented as of this encounter
--- OUTSIDE RECORDS SUMMARY | 2024-04-16 13:56 | XMS_ITS | Encounter Summary ---
Author Organization [facility] Address [facility] [place] [address] Care Team Providers Care Associate Faculty Name Role Phone None Primary Care Provider Unavailabl e Reason for Visit * Reason Comments Hospital Transfer Ruptured Spleen * Auth/Cert Specialty Diagnoses / Procedures Referred By Contac t Referred To Contact Diagnoses Splenic laceration Procedures EMERGENCY IPI Referral ID Status Reason Start Date Expiration Date Visits Re quested Visits Authorized [id number] 1 1 Encounter Details Date Type Department Care Team (Latest Contact Info) Description 06/14/2018 5:53 PM EDT - 06/18/2018 3:19 PM EDT Hospital Encounter [address] [place] [address] Shahid Silver MD [facility] [place] [address] Joshua Jasmine MD [facility] [place] [place] [address] Laceration of spleen, initial encounter; Chest pain, unspecified type Discharge Disposition: Home Social History Tobacco Use [...] Sign Reading Time Taken Comments Blood Pressure 118/67 06/18/2018 11:56 AM EDT Pulse 95 06/17/2018 3:43 PM EDT Temperature 37.2 ??C (99 ??F) 06/18/2018 11:56 AM EDT Respiratory Rate 22 06/18/2018 11:56 AM EDT Oxygen Saturation 94% 06/18/2018 11:56 AM EDT Inhaled Oxygen Concentration - - Weight 78 kg (172 lb) 06/15/2018 4:14 PM EDT Height 182.9 cm (6') 06/15/2018 4:14 PM EDT Body Mass Index 23.33 06/15/2018 4:14 PM EDT documented in this encounter Discharge Summaries * Brent Souza MD - 06/18/2018 6:05 AM EDT Acute Care Surgery Discharge Summary Patient Name: Jimenez Barkley Patient Age: 63 y.o. : 1955 Attending Physician: Joshua Jasmine MD Date of Admission: 06/14/2018 Date of Discharge: 06/18/2018 ID: 63 y.o.yo pt with PMH CAD, HTN, HLD, COPD who presented with splenic laceration (grade IV) admitted on 06/14/2018 now s/p IR embolization. Other In-hospital Issues: - Acute Pain Secondary Diagnosis: No past medical history on file. Allergies: Allergies Allergen Reactions ??? Simvastatin ??? Tegretol [Carbamazepine] Operations/Procedures: * No surgery found * HPI: This is a 63 y.o. male with PMH CAD s/p PCI on ASA , HTN, COPD who presents with acute onset chest and abdominal pain. He states that at approximately 1140AM this morning he noted acute onset left chest pain that radiated to his left shoulder and LUQ. It is associated with anorexia, shortness of breath and diaphoresis. Denies any recent trauma or falls. He takes a daily ASA 81mg. He went to [facility] for evaluation where laboratory studies were remarkable for leukocytosis to 12 and a hemoglobin of 14. Coag studies were within normal limits. CT chest/abdomen/pelvis was remarkable for a splenic laceration and possible liver laceration. He was transferred to [facility] for further care. On arrival he washemodynamically normal and complaining of LUQ pain. 63-year-old gentleman with a grade 4 splenic laceration most likely secondary to spontaneous rupture from unknown etiology. There is a possibility the patient had a traumatic injury as I am not completely convinced he is an accurate historian. That being said there is no other outward signs of traumatic injury. He remains alert with a GCS of 15. He has no cervical tenderness with range of motion or palpation. At this point he is hemodynamically stable with no evidence of ongoing bleed. Given the grade of injury I feel he would best be served with a angioembolization which will be performed [facility] Course: 06/15/2018: No acute events overnight. Afebrile, HD stable. Hb on admission 11.8. No active blush noted on angiography. 06/16/2018:No acute events overnight. Afebrile, HD stable. Hb 10 (11.8) 06/17/2018: No acute events, Hgb stable. Jimenez Barkley's pain was adequately controlled, he was maintaining adequate oxygen saturation on room air, and was hemodynamically stable. He was tolerating a diet without abdominal complaints and voiding adequately. WBC downtrending and Hgb were stable. He was ambulating. Jimenez Barkley was evaluated by the Surgery Team and deemed medically stable for discharge today. PLAN: Neuro: Pain - Tylenol, Lidoderm patches, flexeril 5mg bid, ibuprofen 400 mg q6h prn, oxycodone 5-10 mg prn Psych: wellbutrin 300 mg daily, celexa 20 mg daily, trazodone ?? CV: - lisinopril 10 mg daily, hydralazine 5 mg q6h prn - ASA 81 mg daily ?? Pulmonary: - Symbicort bid, dunoeb q4h - OOB, ambulate ?? GI/FEN: - Colace, miralax, - Diet: Regular ?? Heme: - Repeat CBC Stable ?? : - No active issues ?? PPX: - SQH 5000 tid, SCDS ?? Dispo: - Appropriate for floor - Will require outpatient follow-up spleen imaging (IR) - CT Pertinent Lab Data: Recent Labs 06/18/18 0606/17/18 0128 06/16/18 0110 WBC 13.9* 18.6* 18.4* HGB 8.6* 10.4* 10.0* HCT 25.6* 30.9* 29.7* PLATELET 215 190 198 Recent Labs 06/18/18 0605 06/17/18 0128 NA 136 134* K 3.6 3.7 CL 96* 94* CO2 28 25 BUN 10 11 CREATININE 0.76* 0.78* GLUCOSE 125 137 CALCIUM 9.0 9.4 Pertinent Imaging: IR Arterial Intervention (06/14/2018): Impression: ? 1. ??Splenic arteriography showed no evidence of active hemorrhage. ? 2. ??Abnormal splenic perfusion suggesting hemangioma, which might account for splenic hemorrhage with no reported history of trauma. ? 3. ??Proximal splenic artery occluded with a single Amplatz plug. ? 4. ??Mynx closure CT Chest Abdomen Pelvis (06/14/2018): IMPRESSION Grade 3/4 splenic injury. Discharge Physical Examination: Vital Signs: Last value Range last 24hrs Temperature Temp: 37.2 ??C (99 ??F) Temp: [37 ??C (98.6 ??F)-37.6 ??C (99.7 ??F)] Heart Rate Heart Rate: 95 Heart Rate: [95] Blood Pressure BP: 118/67 BP: (118-147)/(57-74) Respiratory Rate Resp: 22 Resp: [16-22] SpO2 SpO2: 94 % SpO2: [90 %-96 %] Physical Exam: General: NAD, resting comfortably, pleasant, conversant HEENT: PERRL CVS: RRR Pulm: CTAB Abd: soft, less tender, non-distended. No rebound or guarding Skin: warm, dry Ext: no c/c/e, cap refill <2sec Neuro: CN 2-12 grossly intact, nonfocal, moving all four extremities spontaneously Current Medications: The following medications have been prescribed for you. If you notice any adverse reactions to yourmedications, please contact your primary care physician immediately or go to the nearest Emergency Department. Your Medications Continued medications with new dosing Dose Details oxyCODONE 5 mg Tab Commonly known as: ROXICODONE Take 1 tablet by mouth every 4 hours as needed for Pain (For pain 7-10 take 5mg). What changed: reasons to take this 5 mg Quantity: 10 tablet Refills: 0 Continued medications, unchanged Dose Details acetaminophen 325 mg Tab Commonly known as: TYLENOL Take 975 mg by mouth 3 times daily as needed for Pain. 975 mg Refills: 0 aspirin 81 mg Tbec Take 81 mg by mouth daily. 81 mg Refills: 0 b complex vitamins Cap Take 1 capsule by mouth daily. 1 capsule Refills: 0 buPROPion 300 mg Tablet Extended Release 24 hr Commonly known as: WELLBUTRIN XL Take 300 mg by mouth every morning. 300 mg Refills: 0 citalopram 20 mg Tab Commonly known as: CeleXA Take 20 mg by mouth daily. 20 mg Refills: 0 cyanocobalamin (vitamin B-12) 100 mcg Tab Take 100 mcg by mouth daily. 100 mcg Refills: 0 cyclobenzaprine 5 mg Tab Commonly known as: FLEXERIL Take 5 mg by mouth 2 times daily. 5 mg Refills: 0 docusate sodium 100 mg Cap Commonly known as: COLACE Take 100 mg by mouth 2 times daily. 100 mg Refills: 0 folic acid 1 mg Tab Commonly known as: FOLVITE Take 1 mg by mouth daily. 1 mg Refills: 0 ibuprofen 400 mg Tab Commonly known as: ADVIL;MOTRIN Take 400 mg by mouth nightly as needed for Pain. 400 mg Refills: 0 ipratropium-albuterol 0.5 mg-3 mg(2.5 mg base)/3 mL Nebu Commonly known as: DUONEB Take 3 mLs by nebulization every 4 hours as needed. 3 mL Refills: 0 lisinopril 10 mg Tab Commonly known as: PRINIVIL;ZESTRIL Take 10 mg by mouth daily. 10 mg Refills: 0 multivitamin Ddsf-Gs-IR-Min 27-0.4 mg Tab Commonly known as: THERAPEUTIC-M Take 1 tablet by mouth daily. 1 tablet Refills: 0 omeprazole 20 mg Cpdr Commonly known as: PriLOSEC Take 20 mg by mouth daily. 20 mg Refills: 0 PROAIR HFA 90 mcg/actuation Hfaa Inhale 2 puffs into the lungs every 4 hours as needed for Wheezing. Use with spacer Generic drug: albuterol 2 puff Refills: 0 SPIRIVA WITH HANDIHALER 18 mcg Cpdv Inhale 18 mcg into the lungs daily. Generic drug: tiotropium 18 mcg Refills: 0 traZODone 100 mg Tab Commonly known as: DESYREL Take 100 mg by mouth nightly. 100 mg Refills: 0 vitamin D 50,000 unit Cap Take 50,000 Units by mouth every 30 days. Generic drug: ergocalciferol 14575 Units Refills: 0 Disposition: Home Scheduled Appointments: The following appointments have been scheduled on your behalf: Future Appointments Date Time Provider Department Center 07/23/2018 1:00 PM Alisson Munoz APRN [facility] Outpatient Services/Studies: CT Abdomen & Pelvis w Contrast Standing Status: Future Standing Exp. Date: 01/15/19 Question Response Notes Where will study be performed? [facility] [120] Reason for exam and clinical history: s/p spontaneous splenic laceration s/p IR embolization - cause concerning hemangioma vs other pathology Special Instructions Given to Patient at Discharge:. An After Visit Summary was printed and given to the patient. Patient Instructions Discharge Instructions You were were admitted and treated for the following diagnosis: Spontaneous splenic artery laceration repaired with Interventional Radiology embolization As a result of your CT scans, you were found to have the following incidental findings, please discuss with your primary care provider at you next visit: 1. The splenic angiogram is not consistent with a splenic laceration but suggests a hypervascular mass in the spleen. Hopefully a hemangioma. This will need to be followed-up with further imaging of the spleen. CALL YOUR PHYSICIAN IF: 1. You have a fever greater than 101F 2. You have diarrhea or vomiting for >24 hours, or stop having bowel movements and passing flatus 3. You have worsening pain, not controlled with your pain medication. 4. You develop redness, swelling, or new drainage from your wounds Follow up: Primary care follow-up has been scheduled for you with your PCP once you return home. You should becontacted by her office, but if you are unable to reach the office please call them at [phone]. Narcotics: You may be given a prescription for a narcotic medication immediately following your surgery. Narcotics are prescribed for short-term (1-3 days) use to help treat your pain. Narcotics do not reduce inflammation and it is inflammation that is usually a major cause of pain after surgery. Narcotics have many side effects such as constipation, lightheadedness, dizziness, sedation, confusion, nausea and vomiting. Driving and the use of alcohol are not recommended while you are using narcotic pain medications. Non-steroidal anti-inflammatories (NSAIDS) such as aspirin, Aleve and ibuprofen (Advil, Motrin) aremedications that reduce pain and inflammation. To reduce your chance of side effects, it is recommended that you use Tylenol as needed for pain and then NSAIDs and use narcotics as the last resort. Alternative means of pain relief such as rest and relaxation, positioning, as well as decreasing stimulants such as coffee, tea, soft drinks, and nicotine may also help to alleviate pain. If you continue to experience significant pain 4-5 days after your discharge, it may be necessary to be re-evaluated by your physician. Driving Restrictions: - No driving if you are too sore to enter or exit your vehicle comfortably, or if you are too sore to easily check your blind spot. No driving while using prescription pain medications Activities: - Discuss return to work or school with your provide at your follow up appointment in the trauma clinic. - Increase your activity slowly. If it hurts don't do it, but try again the following day. - You may tire easily, so frequent naps may be necessary.. - Talk with your doctor about when you can return to work or school. - You may take a shower but have someone nearby in case you need help. Diet: Eat a well-balanced diet. Fresh fruits, vegetables and fiber-containing foods are recommended. Thiswill assist in wound healing. Recommendations: - Take it easy for two weeks. Remember, If it hurts, don't do it. - Take several slow, short walks each day for the first two weeks, and gradually increase your distance. We recommend at least 4 times a day. Wound Care: - You can shower per usual routine - Do not submerge wounds under water (avoid spas, pools and bathtubs) until fully healed. - Do not use creams, oils, or ointments on the wound. - See follow-up appointments for removal of sutures/pia. Comfort: - Some soreness can be expected. - Take your pain medication as needed and prescribed. - Taper use of pain medication as pain lessens. Follow up appointments: 1. You will have follow-up appointments at [facility] as indicated in the ???Future Appointments and Orders?? section of your discharge summary. If X-rays or CT scans have been ordered for you prior to this appointment you will need to report to the Radiology department, desk 3T, 1 hour prior to your clinic appointment time. 2. If you do not have a scheduled follow-up appointment listed at the time of discharge, you will be notified of your scheduled appointment on the next business day. Please call [phone] if you do not hear from us by that time, as your timely follow-up is very important to us. Your care was managed by the Trauma and Acute Care Surgery Team at [facility]. If you have any questions or concerns, please feel free to contact us. Provider Contact Information: General Surgery: [facility] (after business hours): CC: Tammy Farley Primary Care Physician: None No future appointments. General Instructions None Your care was managed by the Trauma and Acute Care Surgery Team at [facility]. If you have any questions or concerns, please feel free to contact us. Provider Contact Information: General Surgery Clinic: Nurses line for questions: [facility] (after business hours): CC: Spontaneous splenic artery laceration diagnosis for which pt was admitted None Susie Daniel Munoz, DARIANA Signed: Brent Souza MD Department of Surgery 06/18/2018 Acute Care Surgery Pager [phone] documented in this encounter Discharge Instructions * Patient Instructions* Brent Souza MD - 06/18/2018 6:05 AM EDT Discharge Instructions You were were admitted and treated for the following diagnosis: Spontaneous splenic artery laceration repaired with Interventional Radiology embolization As a result of your CT scans, you were found to have the following incidental findings, please discuss with your primary care provider at you next visit: 1. The splenic angiogram is not consistent with a splenic laceration but suggests a hypervascular mass in the spleen. Hopefully a hemangioma. This will need to be followed-up with further imaging of the spleen. CALL YOUR PHYSICIAN IF: 1. You have a fever greater than 101F 2. You have diarrhea or vomiting for >24 hours, or stop having bowel movements and passing flatus 3. You have worsening pain, not controlled with your pain medication. 4. You develop redness, swelling, or new drainage from your wounds Follow up: Primary care follow-up has been scheduled for you with your PCP once you return home. You should becontacted by her office, but if you are unable to reach the office please call them at [phone]. Narcotics: You may be given a prescription for a narcotic medication immediately following your surgery. Narcotics are prescribed for short-term (1-3 days) use to help treat your pain. Narcotics do not reduce inflammation and it is inflammation that is usually a major cause of pain after surgery. Narcotics have many side effects such as constipation, lightheadedness, dizziness, sedation, confusion, nausea and vomiting. Driving and the use of alcohol are not recommended while you are using narcotic pain medications. Non-steroidal anti-inflammatories (NSAIDS) such as aspirin, Aleve and ibuprofen (Advil, Motrin) aremedications that reduce pain and inflammation. To reduce your chance of side effects, it is recommended that you use Tylenol as needed for pain and then NSAIDs and use narcotics as the last resort. Alternative means of pain relief such as rest and relaxation, positioning, as well as decreasing stimulants such as coffee, tea, soft drinks, and nicotine may also help to alleviate pain. If you continue to experience significant pain 4-5 days after your discharge, it may be necessary to be re-evaluated by your physician. Driving Restrictions: - No driving if you are too sore to enter or exit your vehicle comfortably, or if you are too sore to easily check your blind spot. No driving while using prescription pain medications Activities: - Discuss return to work or school with your provide at your follow up appointment in the trauma clinic. - Increase your activity slowly. If it hurts don't do it, but try again the following day. - You may tire easily, so frequent naps may be necessary.. - Talk with your doctor about when you can return to work or school. - You may take a shower but have someone nearby in case you need help. Diet: Eat a well-balanced diet. Fresh fruits, vegetables and fiber-containing foods are recommended. Thiswill assist in wound healing. Recommendations: - Take it easy for two weeks. Remember, If it hurts, don't do it. - Take several slow, short walks each day for the first two weeks, and gradually increase your distance. We recommend at least 4 times a day. Wound Care: - You can shower per usual routine - Do not submerge wounds under water (avoid spas, pools and bathtubs) until fully healed. - Do not use creams, oils, or ointments on the wound. - See follow-up appointments for removal of sutures/pia. Comfort: - Some soreness can be expected. - Take your pain medication as needed and prescribed. - Taper use of pain medication as pain lessens. Follow up appointments: 1. You will have follow-up appointments at [facility] as indicated in the ???Future Appointments and Orders?? section of your discharge summary. If X-rays or CT scans have been ordered for you prior to this appointment you will need to report to the Radiology department, desk 3T, 1 hour prior to your clinic appointment time. 2. If you do not have a scheduled follow-up appointment listed at the time of discharge, you will be notified of your scheduled appointment on the next business day. Please call [phone] if you do not hear from us by that time, as your timely follow-up is very important to us. Your care was managed by the Trauma and Acute Care Surgery Team at [facility]. If you have any questions or concerns, please feel free to contact us. Provider Contact Information: General Surgery: [facility] (after business hours): CC: Tammy Farley Primary Care Physician: None No future appointments. documented in this encounter Medications at Time of Discharge Medication Sig Dispensed Refills Start Date End Date lisinopril (PRINIVIL;ZESTRIL) 10 mg Tablet Take 10 mg by mouth daily. aspirin 81 mg Tablet, Delayed Release (E.C.) Take 81 mg by mouth daily. omeprazole (PRILOSEC) 20 mg Capsule, Delayed Release(E.C.) Take 20 mg by mouth daily. traZODone (DESYREL) 100 mg Tablet Take 100 mg by mouth nightly. multivitamin Gdyq-Ff-YY-Min (THERAPEUTIC-M) 27-0.4 mg Tablet Take 1 tablet [...] 7-10 take 5mg). 10 tablet 06/18/2018 05/07/2020 buPROPion (WELLBUTRIN XL) 300 mg Tablet Extended Release 24 hr Take 300 mg by mouth every morning. 05/07/2020 b complex vitamins Capsule Take 1 [...] Pain. 05/07/2020 documented as of this encounter Progress Notes * Griffin Prasad RN - 06/18/2018 3:07 PM EDT Patient cleared for discharge by MD's. D/C teaching completed with pt. No questions at this time. Pt sent home with all necessary supplies. Pt d/c'd back to the [facility] at [address] wheelchair pushed by 2 [place] staff. * Mariaa Tirado MSW - 06/18/2018 1:41 PM EDT Discharge Planning: O: Requested by team to assist with discharge transportation. [facility] [phone] will pick patient upat the [place] [facility] at 3pm. 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 No further social work interventions at this time. * Brent Souza MD - 06/18/2018 7:18 AM EDT General Surgery Resident Inpatient Progress Note ID: Jimenez Barkley is 63 yo male with PMH CAD, HTN, HLD, COPD who presented with splenic laceration(grade IV) now s/p IR embolization. 24hr events: - No acute events overnight - Flatus, Had a bowel movement O: Last value Range last 24hrs Temperature Temp: 37.3 ??C (99.1 ??F) Temp: [37 ??C (98.6 ??F)-37.4 ??C (99.3 ??F)] Heart Rate Heart Rate: 95 Heart Rate: [95] Blood Pressure BP: 144/57 BP: (127-147)/(57-74) Respiratory Rate Resp: 16 Resp: [16-18] SpO2 SpO2: 90 % SpO2: [90 %-96 %] 06/17 0701 - 06/18 0700 In: 1137 [P.O.:1137] Out: 1075 [Urine:1075] Physical Exam: General: NAD, resting comfortably, pleasant, conversant HEENT: PERRL CVS: RRR Pulm: CTAB Abd: soft, less tender, non-distended. No rebound or guarding Skin: warm, dry Ext: no c/c/e, cap refill <2sec Neuro: CN 2-12 grossly intact, nonfocal, moving all four extremities spontaneously Recent Labs 06/18/18 0605 06/17/18 0128 06/16/18 0110 WBC 13.9* 18.6* 18.4* HGB 8.6* 10.4* 10.0* HCT 25.6* 30.9* 29.7* PLATELET 215 190 198 Recent Labs 06/18/18 0605 06/17/18 0128 06/15/18 0721 NA 136 134* 137 K 3.6 3.7 4.4 CL 96* 94* 100 CO2 28 25 25 BUN 10 11 24* CREATININE 0.76* 0.78* 0.82 GLUCOSE 125 137 137 CALCIUM 9.0 9.4 8.7 NEW IMAGING: ?? None ASSESSMENT: Jimenez Barkley is a 63 y.o. male 63 yo male with PMH CAD, HTN, HLD, COPD who presented with splenic laceration (grade IV) now s/p IR embolization. Progressing well. Abdominal pain improved overall. Afebrile, VSS. Reports some belching with associated distension. Will keep him on clears and continue his bowel regimen until return of bowel function. Hemoglobin stable at 10.4 from prior of 10.0 and 11.6 the day before that. Today, Mr. Barkley is now passing flatus, and had 2 bowel movements last night. We will advance his diet as tolerated. IR suggests follow-up spleenic imaging that can be done as an outpatient due to angiogram not consistent with splenic laceration but hypervascular mass in the spleen (hopefully hemangioma). His leukocytosis is now down-trending 18.6 to 13.9 demonstrating appropriate recovery from his primary insult. If Mr. Barkley is able to tolerate Regular diet he will likely be discharged later today. PLAN: Neuro: Pain - Tylenol, Lidoderm patches, flexeril 5mg bid, ibuprofen 400 mg q6h prn, oxycodone 5-10 mg prn Psych: wellbutrin 300 mg daily, celexa 20 mg daily, trazodone CV: - lisinopril 10 mg daily, hydralazine 5 mg q6h prn Pulmonary: - Symbicort bid, dunoeb q4h - OOB, ambulate GI/FEN: - Colace, miralax, - Diet: ADAT to Regular Heme: - Repeat CBC Stable : - No active issues PPX: - SQH 5000 tid, SCDS Dispo: - Appropriate for floor - Will require outpatient follow-up spleen imaging (IR) Brent Souza MD 06/18/18 Team Pager [phone] * Db Paz MD - 06/17/2018 1:31 PM EDT Trauma Service - Progress Note Patient Name: Jimenez Barkley : [id number] MR#: [id number] 06/14/2018 Hospital Day 3 days Problem List: Active Hospital Problems Diagnosis ??? Splenic laceration Resolved Hospital Problems Diagnosis Date Resolved No resolved problems to display. Active Non-Hospital Problems Diagnosis ??? Pain in right shoulder Events over the last 24 hrs: No acute issues overnight Subjective: Spontaneous splenic rupture without trauma Embolization Return of bowel function Advance diet - clear liquids Objective: Physical Exam: Last Set of Vitals and range of vitals over past 24 hours: Last value Range last 24 hrs Temperature Temp: 37.1 ??C (98.8 ??F) Temp: [37.1 ??C (98.8 ??F)-37.5 ??C (99.5 ??F)] Heart Rate Heart Rate: 95 Heart Rate: [89-99] Blood Pressure BP: 130/61 BP: (113-159)/(61-77) Respiratory Rate Resp: 18 Resp: [16-18] SpO2 SpO2: 96 % SpO2: [91 %-96 %] Physical Exam Awake and alert Sitting in a chair No resp distress Reg pulse Abdomen distended, nontender Laboratory (Last 24 Hours): Recent Results (from the past 24 hour(s)) Basic Metabolic Panel (non-fasting) Result Value Ref Range Glucose Lvl 137 65 - 199 mg/dL BUN 11 10 - 20 mg/dL Creatinine 0.78 (L) 0.80 - 1.50 mg/dL Sodium 134 (L) 135 - 145 mmol/L Potassium 3.7 3.5 - 5.0 mmol/L Chloride 94 (L) 98 - 107 mmol/L CO2 25 22 - 31 mmol/L Anion Gap 15 5 - 15 mmol/L Calcium 9.4 8.5 - 10.5 mg/dL eGFR 97 >=60 mL/min/1.73 m?? eGFR 112 >=60 mL/min/1.73 m?? Hemogram Result Value Ref Range WBC 18.6 (H) 4.0 - 9.5 x10(3)/mcL RBC 3.32 (L) 4.58 - 5.54 x10(6)/mcL Hemoglobin 10.4 (L) 13.7 - 16.5 gm/dL Hematocrit 30.9 (L) 40.5 - 48.5 % MCV 93.1 82.9 - 93.1 fL MCH 31.3 27.5 - 32.1 pg MCHC 33.7 32.0 - 35.7 gm/dL Platelets 190 145 - 357 x10(3)/mcL RDWSD 45.8 (H) 36.0 - 45.0 fL RDWCV 13.4 11.4 - 13.8 % MPV 9.7 7.6 - 12.9 fL nRBC % Auto 0.0 % nRBC Abs Auto 0.000 0.000 - 0.000 x10(3)/mcL Differential, Automated Result Value Ref Range Neutrophils % 74.2 % Neutr Abs (ANC) 13.79 (H) 1.70 - 6.10 x10(3)/mcL Lymphocytes % 11.0 % Lymphocytes Abs 2.0 0.9 - 3.2 x10(3)/mcL Monocytes % 11.9 % Monocyte Abs 2.2 (H) 0.3 - 0.9 x10(3)/mcL Eosinophils % 2.0 % Eosinophils Abs 0.4 0.0 - 0.4 x10(3)/mcL Basophils % 0.3 % Basophils Abs 0.1 0.0 - 0.1 x10(3)/mcL Immature Gran % 0.60 % Shaila Gran Abs 0.11 (H) 0.00 - 0.04 x10(3)/mcL Assessment/Plan: Question mass in the spleen needs follow up Stable Hb without hypotension Potential abnormal spleen with possible hemangioma (would make sense given absence of history of trauma) Follow up CT as an outpatient Will need to be eating and ambulating prior to discharge DB PAZ MD 06/17/2018 * Sharan Montez MD - 06/17/2018 8:10 AM EDT IR Note Would suggest follow up imaging of the spleen, not urgent can be done as outpatient. The splenic angiogram is not consistent with a splenic laceration but suggests a hypervascular mass in the spleen.Hopefully a hemangioma. * Brent Souza MD - 06/17/2018 7:13 AM EDT General Surgery Resident Inpatient Progress Note ID: Jimenez Barkley is 63 yo male with PMH CAD, HTN, HLD, COPD who presented with splenic laceration(grade IV) now s/p IR embolization. 24hr events: - No acute events overnight - Flatus, Advance bowel meds O: Last value Range last 24hrs Temperature Temp: 37.5 ??C (99.5 ??F) Temp: [36.8 ??C (98.2 ??F)-37.5 ??C (99.5 ??F)] Heart Rate Heart Rate: 95 Heart Rate: [87-99] Blood Pressure BP: 159/77 BP: (113-159)/(66-77) Respiratory Rate Resp: 16 Resp: [16-18] SpO2 SpO2: 91 % SpO2: [91 %-98 %] 06/16 0701 - 06/17 0700 In: 240 [P.O.:240] Out: 1050 [Urine:1050] Physical Exam: General: NAD, resting comfortably, pleasant, conversant HEENT: PERRL CVS: RRR Pulm: CTAB Abd: soft, less tender, non-distended. No rebound or guarding Skin: warm, dry Ext: no c/c/e, cap refill <2sec Neuro: CN 2-12 grossly intact, nonfocal, moving all four extremities spontaneously Recent Labs 06/17/18 0128 06/16/18 0110 06/15/18 0156 06/14/18 1845 WBC 18.6* 18.4* 15.4* 17.5* HGB 10.4* 10.0* 11.6* 12.8* HCT 30.9* 29.7* 35.4* 38.3* PLATELET 190 198 215 221 PT -- -- -- 10.8 INR -- -- -- 1.0 PTT -- -- -- <20* Recent Labs 06/17/18 0128 06/15/18 0721 06/14/18 1845 NA 134* 137 137 K 3.7 4.4 4.6 CL 94* 100 100 CO2 25 25 24 BUN 11 24* 19 CREATININE 0.78* 0.82 0.87 GLUCOSE 137 137 121 CALCIUM 9.4 8.7 8.6 NEW IMAGING: ?? None ASSESSMENT: Jimenez Barkley is a 63 y.o. male 63 yo male with PMH CAD, HTN, HLD, COPD who presented with splenic laceration (grade IV) now s/p IR embolization. Progressing well. Abdominal pain improved overall. Afebrile, VSS. Reports some belching with associated distension. Will keep him on clears and continue his bowel regimen until return of bowel function. Hemoglobin stable at 10.4 from prior of 10.0 and 11.6 the day before that. Today, Mr. Barkley is now passing flatus, we will increase his bowel regimen and await ROBF to advance his diet. IR suggests follow-up spleenic imaging that can be done as an outpatient due to angiogram not consistent with splenic laceration but hypervascular mass in the spleen (hopefully hemangioma). His pain is well controlled on current regimen although he will not take his tylenol / ibuprofen 2/2 upset stomach. PLAN: Neuro: Pain - Tylenol, Lidoderm patches, flexeril 5mg bid, ibuprofen 400 mg q6h prn, oxycodone 5-10 mg prn Psych: wellbutrin 300 mg daily, celexa 20 mg daily, trazodone CV: - lisinopril 10 mg daily, hydralazine 5 mg q6h prn Pulmonary: - Symbicort bid, dunoeb q4h - OOB, ambulate GI/FEN: - Colace, miralax, - Diet: Clear liquid Heme: - Repeat CBC Stable : - No active issues PPX: - SQH 5000 tid, SCDS Dispo: - Appropriate for floor - Will require outpatient follow-up spleen imaging (IR) Brent Souza MD 06/17/18 Team Pager [phone] * Edgar Dumont - 06/16/2018 2:16 PM EDT Financial Administrative Assistant Encounter Note Patient Name: Jimenez Barkley : [id number] MR#: [id number] Admit Date: 06/14/2018 5:53 PM Hospital Day 2 days Narrative: Visited to introduce and assess acceptance of Financial Administrative Assistant services. Pt was awake, alert, oriented and in bed and welcoming to visit. Assessment: Patient coping positively with stresses of illness/hospitalization at this time. Pt says that he is hoping to get better and taking one day at time. Pt shared that his family is living inother states. Intervention and Outcome: Provided emotional, spiritual support and encouraging presence. Financial Administrative Assistant services accepted.Conversation to build trusting relationship.Provided prayer.Provided pastoral presence. Follow-up: yes Time in Direct Care:10 Mins Edgar Dumont 06/16/2018 * Joshua Jasmine MD - 06/16/2018 10:11 AM EDT General Surgery Resident Inpatient Progress Note ID: Jimenez Barkley is 63 yo male with PMH CAD, HTN, HLD, COPD who presented with splenic laceration(grade IV) now s/p IR embolization. 24hr events: ?? No acute events overnight ?? Afebrile, HD stable. Hb 10 (11.8) Reports some belching, abdominal fullness. No flatus or BM. Abdominal pain improved overall. O: Last value Range last 24hrs Temperature Temp: 36.8 ??C (98.2 ??F) Temp: [36.8 ??C (98.2 ??F)-37.1 ??C (98.8 ??F)] Heart Rate Heart Rate: 87 Heart Rate: [76-87] Blood Pressure BP: 147/75 BP: (137-189)/(71-92) Respiratory Rate Resp: 16 Resp: [13-17] SpO2 SpO2: 98 % SpO2: [94 %-98 %] 06/15 0701 - 06/16 0700 In: 1520 [P.O.:1040; I.V.:480] Out: 1600 [Urine:1600] Physical Exam: General: NAD, resting comfortably, pleasant, conversant HEENT: PERRL CVS: RRR Pulm: CTAB Abd: soft, less tender, non-distended. No rebound or guarding Skin: warm, dry Ext: no c/c/e, cap refill <2sec Neuro: CN 2-12 grossly intact, nonfocal, moving all four extremities spontaneously Recent Labs 06/16/18 0110 06/15/18 0156 06/14/18 1845 WBC 18.4* 15.4* 17.5* HGB 10.0* 11.6* 12.8* HCT 29.7* 35.4* 38.3* PLATELET 198 215 221 PT -- -- 10.8 INR -- -- 1.0 PTT -- -- <20* Recent Labs 06/15/18 0721 06/14/18 1845 NA 137 137 K 4.4 4.6 CL 100 100 CO2 25 24 BUN 24* 19 CREATININE 0.82 0.87 GLUCOSE 137 121 CALCIUM 8.7 8.6 NEW IMAGING: ?? None ASSESSMENT: Jimenez Barkley is a 63 y.o. male 63 yo male with PMH CAD, HTN, HLD, COPD who presented with splenic laceration (grade IV) now s/p IR embolization. Progressing well. Abdominal pain improved overall. Afebrile, VSS. Reports some belching with associated distension. Will keep him on clears and continue his bowel regimen until return of bowel function. Hemoglobin stable at 10 (11.8), plan to repeat a CBC tomorrow AM. PLAN: - Tylenol, ibuprofen, oxycodone, lidoderm - CLD - HLIV - Colace, Miralax - OOB, ambulate - Repeat CBC in AM - Transfer to the floor Danny Munoz MD General Surgery, PGY5 SURGICAL ATTENDING NOTE: Pt seen and examined with the resident staff on AM rounds and I agree with the above note and plan with the following additions/modifications. Patient with much improved pain control today. He was moved from the stepdown unit to the floor without issue. He did tolerate 1 L of clears yesterday. His hemoglobin is slightly downmost likely secondary to delusional factors. Plan today is to continue him only on clears given his lack of bowel movement and still mild degree of distention. He understands to stop any p.o. intake should he become nauseous. We will restart all his home meds. A repeat hemoglobin will be added on for later on today. Overall I think he is doing reasonably well and should be able to be discharged in the next 24-48 hours. Otherwise as noted above. * Seferino Interiano MD - 06/16/2018 10:00 AM EDT INTERVENTIONAL RADIOLOGY Inpatient Progress Note Admitted 06/14/2018 Procedure(s): Splenic arteriography and proximal splenic artery embolization. Post-procedure day: #1 24 Hour Events: Doing well, mild pain at groin access site but well controlled with analgesics. No N/V/D Last Value 24 Hour Range Temperature 37.2 ??C (99 ??F) Temp: [36.8 ??C (98.2 ??F)-37.2 ??C (99 ??F)] Heart Rate 89 Heart Rate: [76-89] Blood Pressure 143/74 BP: (137-189)/(71-92) Respiratory Rate 18 Resp: [13-18] SpO2 94 % SpO2: [94 %-98 %] Physical Exam GEN No distress, A&O CARDS RRR LUNGS No increased WOB on RA ABD Non tender, non distended Vasc ACCESS R CURRICULUM MANAGER dressing C/D/I , no hematoma, 2+ pulses ~ R CURRICULUM MANAGER/ R DPA Intake/Output Summary (Last 24 hours) at 06/16/18 1224 Last data filed at 06/16/18 1025 Gross per 24 hour Intake 500 ml Output 1875 ml Net -1375 ml Labs: Recent Labs 06/16/18 0110 06/15/18 0156 06/14/18 1845 WBC 18.4* 15.4* 17.5* HGB 10.0* 11.6* 12.8* HCT 29.7* 35.4* 38.3* PLATELET 198 215 221 Recent Labs 06/15/18 0721 06/14/18 1845 NA 137 137 K 4.4 4.6 CL 100 100 CO2 25 24 BUN 24* 19 CREATININE 0.82 0.87 Imaging: No new imaging Assessment/Plan: 63 y.o. male with spontaneous splenic rupture / hemorrhage at an outside hospital.S/p Proximal splenic artery embolization -PPD#1 - Continue to monitor H/H, hemodynamic status * Vanda Ring RN - 06/15/2018 4:56 PM EDT Received report from [facility] in [facility]. Arrived to room 210A at 1613. A&O x4. Elevated BP, administered Hydralazine. Other VSS. Pain 06/26. C/O nausea with dry heaving. Will check MD orders and continue to monitor. * Joshua Jasmine MD - 06/15/2018 9:57 AM EDT General Surgery Resident Inpatient Progress Note ID: Jimenez Barkley is 63 yo male with PMH CAD, HTN, HLD, COPD who presented with splenic laceration(grade IV) now s/p IR embolization. 24hr events: ?? No acute events overnight ?? Afebrile, HD stable. Hb on admission 11.8 ?? No active blush noted on angiography Subjective: pt reports diffuse abdominal pain with left shoulder discomfort this AM. No nausea. O: Last value Range last 24hrs Temperature Temp: 36.5 ??C (97.7 ??F) Temp: [36 ??C (96.8 ??F)-36.9 ??C (98.4 ??F)] Heart Rate Heart Rate: 83 Heart Rate: [83-99] Blood Pressure BP: 173/83 BP: (102-173)/(67-118) Respiratory Rate Resp: 17 Resp: [9-20] SpO2 SpO2: 96 % SpO2: [90 %-100 %] 06/14 0701 - 06/15 07 In: 633 [I.V.:633] Out: 575 [Urine:575] Physical Exam: General: NAD, resting comfortably, pleasant, conversant HEENT: PERRL CVS: RRR Pulm: CTAB Abd: soft, diffusely tender, non-distended. No rebound or guarding Skin: warm, dry Ext: no c/c/e, cap refill <2sec Neuro: CN 2-12 grossly intact, nonfocal, moving all four extremities spontaneously Recent Labs 06/15/18 0156 06/14/18 1845 WBC 15.4* 17.5* HGB 11.6* 12.8* HCT 35.4* 38.3* PLATELET 215 221 PT -- 10.8 INR -- 1.0 PTT -- <20* Recent Labs 06/15/18 0721 06/14/18 1845 NA 137 137 K 4.4 4.6 CL 100 100 CO2 25 24 BUN 24* 19 CREATININE 0.82 0.87 GLUCOSE 137 121 CALCIUM 8.7 8.6 NEW IMAGING: ?? None ASSESSMENT: Jimenez Barkley is a 63 y.o. male 63 yo male with PMH CAD, HTN, HLD, COPD who presented with splenic laceration (grade IV) now s/p IR embolization. Progressing well. Reports diffuse abdominal discomfort likely secondary from hemoperitoneum. Afebrile, VSS. Hemoglobin stable at 11.8, plan to repeat a CBC tomorrow AM. Will try to normalize him and transfer to the floor for further care. PLAN: - Tylenol, ibuprofen, oxycodone, lidoderm - Regular diet - HLIV - OOB, ambulate - Repeat CBC in AM - Transfer to the floor Danny Munoz MD General Surgery, PGY5 SURGICAL ATTENDING NOTE: Pt seen and examined with the resident staff on AM rounds and I agree with the above note and plan with the following additions/modifications. Patient underwent interventional radiology angioembolization yesterday without difficulty. There is no evidence of active blush on imaging. Overnight he has remained hemodynamically stable with no new complaints. His ileus appears to be resolving. His hemoglobin is stable. Abdomen is soft mildly tender in the left upper quadrant and mildly distended. Plan is to move out of the stepdown unit today to the floor. We will advance his diet as tolerated. Anticipate discharge to home once he is able to tolerate oral intake in the next 1-2 days. Otherwise noted above. * Lisbeth Monzon RN - 06/14/2018 10:30 PM EDT 2210 To procedure room 3 via stretcher. Onto table Supine. All monitors, O2, safety strap in place.Med's per protocol. Angio only post procedure: Time sheath removed: 2300 Side: right Closure device used: Mynx Hematoma present? no Site release time: 2306 Anticipated up time: 106 * Lisbeth Monzon RN - 06/14/2018 9:51 PM EDT ANGIO NURSING DATABASE Name: JIMENEZ BARKLEY Date of : 1955 AGE 63 y.o. Address: [address] [place] [address] (home) Mobile: No relevant phone numbers on file. Referring Provider: No ref. provider found REASON FOR VISIT: Splenic embo Date/time of procedure: Pertinent info from Pre-call (if any): Labs ordered: Med's stopped: COPY/PASTE Procedure Plan from provider's note, bottom of MD workup Plan Planned procedure: splenic embolization Labs to be performed day of procedure: No labs Sedation: moderate (conscious sedation) Prophylactic antibiotic : None Contrast: Omnipaque Additional medications for procedure: Lidocaine Planned access site: Right common femoral artery Position: Supine Consent: Completed Allergies Allergen Reactions ??? Simvastatin ??? Tegretol [Carbamazepine] Pertinent PMH: Patient Active Problem List Diagnosis Code ??? Pain in right shoulder M25.511 ??? Splenic laceration S36.039A Pertinent PSH: No past surgical history on file. Date/Procedure Med's given/comments 06/14/2018 Angiography Splenic Embolization Fentanyl 150 mcg IV, Versed 3 mg IV. Restless legs whilesleeping but otherwise tolerated well Laboratory Results: Lab Results Component Value Date INR 1.0 06/14/2018 Lab Results Component Value Date CREATININE 0.87 06/14/2018 Lab Results Component Value Date K 4.6 06/14/2018 Lab Results Component Value Date PLATELET 221 06/14/2018 Medications: Prior to Admission medications Medication Sig Start Date End Date Taking? Authorizing Provider lisinopril (PRINIVIL;ZESTRIL) 10 mg Tablet Take 10 mg by mouth daily. Yes PROVIDER, HISTORICAL aspirin 81 mg Tablet, Delayed Release (E.C.) Take 81 mg by mouth daily. Yes PROVIDER, HISTORICAL buPROPion (WELLBUTRIN XL) 300 mg Tablet Extended Release 24 hr Take 300 mg by mouth every morning. Yes PROVIDER, HISTORICAL omeprazole (PRILOSEC) 20 mg Capsule, Delayed Release(E.C.) Take 20 mg by mouth daily. Yes PROVIDER,HISTORICAL traZODone (DESYREL) 100 mg Tablet Take 100 mg by mouth nightly. Yes PROVIDER, HISTORICAL oxyCODONE (ROXICODONE) 5 mg Tablet Take 5 mg by mouth every 4 hours as needed for Pain. Yes PROVIDER, HISTORICAL multivitamin Ekyz-Ok-WW-Min (THERAPEUTIC-M) 27-0.4 mg Tablet Take 1 tablet by mouth daily. PROVIDER, HISTORICAL albuterol (PROAIR HFA) 90 mcg/actuation HFA Aerosol Inhaler Inhale 2 puffs into the lungs every 4 hours as needed for Wheezing. Use with spacer PROVIDER, HISTORICAL ipratropium-albuterol (DUONEB) 0.5 mg-3 mg(2.5 mg base)/3 mL Solution for Nebulization Take 3 mLs by nebulization every 4 hours as needed. PROVIDER, HISTORICAL b complex vitamins Capsule Take 1 capsule by mouth daily. PROVIDER, HISTORICAL cyclobenzaprine (FLEXERIL) 5 mg Tablet Take 5 mg by mouth 2 times daily. PROVIDER, HISTORICAL citalopram (CELEXA) 20 mg Tablet Take 20 mg by mouth daily. PROVIDER, HISTORICAL folic acid (FOLVITE) 1 mg Tablet Take 1 mg by mouth daily. PROVIDER, HISTORICAL tiotropium (SPIRIVA WITH HANDIHALER) 18 mcg Capsule, w/Inhalation Device Inhale 18 mcg into the lungs daily. PROVIDER, HISTORICAL cyanocobalamin, vitamin B-12, 100 mcg Tablet Take 100 mcg by mouth daily. PROVIDER, HISTORICAL docusate sodium (COLACE) 100 mg Capsule Take 100 mg by mouth 2 times daily. PROVIDER, HISTORICAL ergocalciferol (VITAMIN D) 50,000 unit Capsule Take 50,000 Units by mouth every 30 days. PROVIDER, HISTORICAL acetaminophen (TYLENOL) 325 mg Tablet Take 975 mg by mouth 3 times daily as needed for Pain. PROVIDER, HISTORICAL ibuprofen (ADVIL;MOTRIN) 400 mg Tablet Take 400 mg by mouth nightly as needed for Pain. PROVIDER, HISTORICAL * Demetrius López MD - 06/14/2018 8:58 PM EDT Images from the original note were not included. INTERVENTIONAL RADIOLOGY FOCUSED H&P and PRE-PROCEDURE NOTE: PCP: None Referring Provider: No ref. provider found Planned Procedure: Mesenteric angiography and splenic artery embolization Procedure Indication: Splenic laceration, grade III-IV, with moderate volume hemoperitoneum Presenting Diagnosis/ Complaint: Jimenez Barkley is a 63 y.o. male with acute onset left abdominal pain this morning, found to have spontaneous splenic rupture / hemorrhage at an outside hospital. Patient transfused en route with downtrending HH post arrival, Hbg 12.[address] abdomen and pelvis demonstrates large perisplenic hematoma and 5-6 cm laceration / lesion inferior extending towards the hilum. IR consulted for splenic embolization. Past Medical/Surgical History: Patient Active Problem List Diagnosis Code ??? Pain in right shoulder M25.511 ??? Splenic laceration S36.039A No past medical history on file. No past surgical history on file. Medications: No current facility-administered medications on file prior to encounter. Current Outpatient Prescriptions on File Prior to Encounter Medication Sig Dispense Refill ??? multivitamin Yxzy-Vw-IK-Min (THERAPEUTIC-M) 27-0.4 mg Tablet Take 1 tablet by mouth daily. ??? albuterol (PROAIR HFA) 90 mcg/actuation HFA Aerosol Inhaler Inhale 2 puffs into the lungs every4 hours as needed for Wheezing. Use with spacer ??? ipratropium-albuterol (DUONEB) 0.5 mg-3 mg(2.5 mg base)/3 mL Solution for Nebulization Take 3 mLs by nebulization every 4 hours as needed. ??? b complex vitamins Capsule Take 1 capsule by mouth daily. ??? cyclobenzaprine (FLEXERIL) 5 mg Tablet Take 5 mg by mouth 2 times daily. ??? citalopram (CELEXA) 20 mg Tablet Take 20 mg by mouth daily. ??? folic acid (FOLVITE) 1 mg Tablet Take 1 mg by mouth daily. ??? tiotropium (SPIRIVA WITH HANDIHALER) 18 mcg Capsule, w/Inhalation Device Inhale 18 mcg into thelungs daily. ??? cyanocobalamin, vitamin B-12, 100 mcg Tablet Take 100 mcg by mouth daily. ??? docusate sodium (COLACE) 100 mg Capsule Take 100 mg by mouth 2 times daily. ??? ergocalciferol (VITAMIN D) 50,000 unit Capsule Take 50,000 Units by mouth every 30 days. ??? acetaminophen (TYLENOL) 325 mg Tablet Take 975 mg by mouth 3 times daily as needed for Pain. ??? ibuprofen (ADVIL;MOTRIN) 400 mg Tablet Take 400 mg by mouth nightly as needed for Pain. Allergies: Simvastatin and Tegretol [carbamazepine] Social History and Habits: Social History Social History ??? Marital status: Single Spouse name: N/A ??? Number of children: N/A ??? Years of education: N/A Occupational History ??? Not on file. Social History Main Topics ??? Smoking status: Current Every Day Smoker Packs/day: 0.25 Types: Cigarettes ??? Smokeless tobacco: Never Used ??? Alcohol use No Comment: was drinking a 6 pack to a case a day ??? Drug use: No ??? Sexual activity: Not on file Other Topics Concern ??? Not on file Social History Narrative Significant Family History: Family History Problem Relation Age of Onset ??? Family history unknown: Yes Pertinent ROS: as per HPI Labs: Lab Results Component Value Date WBC 17.5 (H) 06/14/2018 HCT 38.3 (L) 06/14/2018 PLATELET 221 06/14/2018 INR 1.0 06/14/2018 BUN 19 06/14/2018 CREATININE 0.87 06/14/2018 Imagin/28 CT abdomen and pelvis w/ Physical Exam: Gen: alert and oriented Cardiac: RRR Abdomen: soft, diffusely tender to palpation Ext: well perfused ASA: II Mallampati Class: II Assessment: Jimenez Barkley is a 63 y.o. male with grade III-IV splenic laceration. - hemodynamically stable - downtrending HH - NPO, not on anticoagulants - plt / INR wnl - Cr 0.87, GFR 92 Plan: Mesenteric angiography and splenic embolization Plan Planned procedure: splenic embolization Labs to be performed day of procedure: No labs Sedation: moderate (conscious sedation) Prophylactic antibiotic : None Contrast: Omnipaque Additional medications for procedure: Lidocaine Planned access site: Right common femoral artery Position: Supine Consent: Completed 06/14/2018 documented in this encounter H&P Notes * Joshua Jasmine MD - 06/14/2018 6:24 PM EDT [facility] Department of Surgery Admission History and Physical CC: Chief Complaint Patient presents with ??? Hospital Transfer Ruptured Spleen HPI: This is a 63 y.o. male with PMH CAD s/p PCI on ASA , HTN, COPD who presents with acute onset chest and abdominal pain. He states that at approximately 1140AM this morning he noted acute onset left chest pain that radiated to his left shoulder and LUQ. It is associated with anorexia, shortness of breath and diaphoresis. Denies any recent trauma or falls. He takes a daily ASA 81mg. He went to [facility] for evaluation where laboratory studies were remarkable for leukocytosis to 12 and a hemoglobinof 14. Coag studies were within normal limits. CT chest/abdomen/pelvis was remarkable for a spleniclaceration and possible liver laceration. He was transferred to [facility] [place] further care. On arrival he was hemodynamically normal and complaining of LUQ pain. PMH: COPD HTN HLD CAD PSH: Tonsillectomy HOME MEDICATIONS: No current facility-administered medications on file prior to encounter. Current Outpatient Prescriptions on File Prior to Encounter Medication Sig Dispense Refill ??? multivitamin Gdhu-Ub-VF-Min (THERAPEUTIC-M) 27-0.4 mg Tablet Take 1 tablet by mouth daily. ??? albuterol (PROAIR HFA) 90 mcg/actuation HFA Aerosol Inhaler Inhale 2 puffs into the lungs every4 hours as needed for Wheezing. Use with spacer ??? ipratropium-albuterol (DUONEB) 0.5 mg-3 mg(2.5 mg base)/3 mL Solution for Nebulization Take 3 mLs by nebulization every 4 hours as needed. ??? b complex vitamins Capsule Take 1 capsule by mouth daily. ??? cyclobenzaprine (FLEXERIL) 5 mg Tablet Take 5 mg by mouth 2 times daily. ??? citalopram (CELEXA) 20 mg Tablet Take 20 mg by mouth daily. ??? folic acid (FOLVITE) 1 mg Tablet Take 1 mg by mouth daily. ??? tiotropium (SPIRIVA WITH HANDIHALER) 18 mcg Capsule, w/Inhalation Device Inhale 18 mcg into thelungs daily. ??? cyanocobalamin, vitamin B-12, 100 mcg Tablet Take 100 mcg by mouth daily. ??? docusate sodium (COLACE) 100 mg Capsule Take 100 mg by mouth 2 times daily. ??? amitriptyline (ELAVIL) 50 mg Tablet Take 100 mg by mouth nightly. ??? ergocalciferol (VITAMIN D) 50,000 unit Capsule Take 50,000 Units by mouth every 30 days. ??? acetaminophen (TYLENOL) 325 mg Tablet Take 975 mg by mouth 3 times daily as needed for Pain. ??? ibuprofen (ADVIL;MOTRIN) 400 mg Tablet Take 400 mg by mouth nightly as needed for Pain. ALLERGIES: Allergies Allergen Reactions ??? Simvastatin ??? Tegretol [Carbamazepine] FAMILY HISTORY: Denies history of bleeding or clotting disorders. No family history of difficulty with anesthesia SOCIAL HISTORY: Social History Social History ??? Marital status: Single Spouse name: N/A ??? Number of children: N/A ??? Years of education: N/A Occupational History ??? Not on file. Social History Main Topics ??? Smoking status: Current Every Day Smoker Packs/day: 0.25 Types: Cigarettes ??? Smokeless tobacco: Never Used ??? Alcohol use No Comment: was drinking a 6 pack to a case a day ??? Drug use: No ??? Sexual activity: Not on file Other Topics Concern ??? Not on file Social History Narrative ROS: As stated above, otherwise 10 systems negative Pertinent items are noted in HPI. PHYSICAL EXAM Temp: [36.6 ??C (97.9 ??F)] Heart Rate: [94-98] Resp: [18] BP: (102-130)/(76-83) SpO2: [92 %-98 %] Heart Rate from SPO2: [95 bpm-96 bpm] GENERAL: alert, awake and no apparent distress HEENT: Normocephalic, without obvious abnormality, atraumatic Pupils: equal, round, reactive to light, no periorbital ecchymoses; LUNG: equal, clear breath sounds bilaterally and no crepitus CARDIAC: Regular rate and rhythm or without murmur or extra heart sounds ABDOMEN/GI: moderately distended, tender to palpation in LUQ with voluntary guarding, without rebound tenderness. EXTREMITIES: normal and symmetric movement, normal range of motion, no joint swelling SKIN: no lacerations, abrasions or contusions on complete skin exam NEURO: no focal deficits LABORATORY DATA Recent Labs 06/14/18 1845 WBC 17.5* HGB 12.8* PLATELET 221 NA 137 K 4.6 CL 100 CO2 24 BUN 19 CREATININE 0.87 GLUCOSE 121 LFT's No results found for: ALKPHOS, AST, ALBUMIN, BILIDIR, BILITOT, ALT, PROT Coags Lab Results Component Value Date INR 1.0 06/14/2018 PT 10.8 06/14/2018 PTT <20 (L) 06/14/2018 MICRO: None IMAGING: CT abdomen/pelvis: preliminary review concerning for a grade IV splenic laceration IMPRESSION: Jimenez Barkley is a 63 y.o. male with PMH CAD, HTN, HLD, COPD who presented with splenic laceration. PLAN: -admit to general surgery, Dr. Jasmine attending -NPO -q6h hemograms -consultation with IR for possible embolization -IVF: LR @ 100 -Pain control: oxycodone, dilaudid -DVT ppx: SCDs, hold chemical DVT ppx -Dispo: ISCU status Juli Mejia MD Pager [phone] 06/14/2018 8:55 PM SURGICAL ATTENDING NOTE: Pt seen and examined with the resident staff in the ED and I agree with the above note and plan with the following additions/modifications. In brief patient is a 63-year-old male who presents on transfer from outside facility with diagnosis of splenic laceration. Per patient earlier this morning hehad acute onset left upper quadrant pain for which he presented from his nursing facility to an outside facility for evaluation. He denied any episodes of trauma in the recent past. There he underwent a CT scan of the chest abdomen and pelvis which revealed a grade 4 splenic injury. Based on this he was sent to us on transfer for tertiary evaluation. On arrival here he is found to be alert and oriented no acute distress. Primary survey was intact. Secondary survey notable for left upper quadrant tenderness to palpation. His GCS was 15. Outside imaging was reviewed to include the chest and abdominal CT scan. Hemoglobin was 12.8. INR was normal. A/P: 63-year-old gentleman with a grade 4 splenic laceration most likely secondary to spontaneous rupture from unknown etiology. There is a possibility the patient had a traumatic injury as I am not completely convinced he is an accurate historian. That being said there is no other outward signs of traumatic injury. He remains alert with a GCS of 15. He has no cervical tenderness with range of motion or palpation. At this point he is hemodynamically stable with no evidence of ongoing bleed. Given the grade of injury I feel he would best be served with a angioembolization which will be performed tonight. Patient will be admitted to the stepdown unit for hemodynamic monitoring. Otherwise as noted above. documented in this encounter Procedure Notes * Sharan Montez MD - 06/14/2018 11:11 PM EDT IR PROCEDURE NOTE Procedure: Splenic arteriography and proximal splenic artery embolization. Indication for Procedure: Per Dr. López, Jimenez Barkley is a 63 y.o. male with acute onset left abdominal pain this morning, found to have spontaneous splenic rupture / hemorrhage at an outside hospital. Patient transfused en route with downtrending HH post arrival, Hbg 12.8 from 14[address] ??CT abdomen and pelvis demonstrates large perisplenic hematoma and 5-6 cm laceration / lesion inferior extending towards the hilum. ??IR consulted for splenic embolization. Procedure events and findings: Following discussion of the risks and benefits of the procedure, informed written consent was obtained. The patient was positioned on the procedure table and the right groin prepped and draped in the usual sterile fashion, maximum sterile barrier technique was used throughout. Due to the painful nature of the procedure, patient received split doses of intravenous fentanyl and versed from the IR nurse while pulse, pressure, and oxygen saturation were continuously monitored. 1% lidocaine was used for local analgesia. The right common femoral artery was accessed using micropuncture technique under ultrasound guidance. A 21 ga needle was advanced into the common femoral artery. An .018 guidewire was placed, and over this a 4 Fr sheath advanced. Wire and inner dilator were removed and through this a .035 J curve guidewire was advanced, 4 Fr sheath exchanged for a 5 Fr sheath. A 5 Fr glide C2 catheter was placed and used to select the celiac artery and then the splenic artery. Selective splenic artery arteriogram was obtained which showed no evidence of active hemorrhage. There was abnormal perfusion of the cranial medial aspect of the spleen suggesting a splenic hemangioma. A Heard wire was placed via the C2 catheter and the C2 exchanged for an angled mess cook 2 catheter. A6 mm Amplatzer plug was placed and deployed within the proximal splenic artery. Injection of contrast into the splenic artery after plug placement showed occlusion of the splenic artery at the level of the plug. Catheter removed. A hand injection of contrast was performed for imaging of the right external iliac and common femoral arteries. No stenoses were seen. Sheath was then removed and hemostasis achieved with the use of a Mynx closure device. Medications: Fentanyl 150mcg IV, Versed 3mg IV, 1% Lidocaine <10ccs subcutaneous. Est Blood Loss: <5cc. Complications: No immediate. Impression: 1. Splenic arteriography showed no evidence of active hemorrhage. 2. Abnormal splenic perfusion suggesting hemangioma, which might account for splenic hemorrhage with no reported history of trauma. 3. Proximal splenic artery occluded with a single Amplatz plug. 4. Mynx closure device placed at right common femoral artery access site. Resident/Fellow: Dr. López. Attending: Dr. Melida Sung performed this procedure. I was present during the intraservice time as documented by the IR Nurse. documented in this encounter ED Notes * Robb Álvarez RN - 06/14/2018 9:11 PM EDT Plan: pt to OR shortly. Then to ISCU. ISCU aware. * Kenn Loving - 06/14/2018 6:30 PM EDT Chief Complaint Patient presents with ??? Hospital Transfer Ruptured Spleen HPI 63 M with a PMH of tobacco use, HTN, history of DC, COPD with no reported PSH per patient who had sudden-onset severe left precordial pain today while seated at rest. Pain spread to the L shoulder and LUQ and has been constant. Denies N/V/D, SOB, cough. Patient denies any recent falls, injuries, orphysical assault. Has had mild pharyngitis without any fevers or chills. Otherwise no recent illnesses. Not on anticoagulants. Patient was transferred from OSH where imaging was performed showing intraabdominal blood from spleen with apparent active extravasation. Patient HD stable on arrival here with two large bore IVs in place. Allergies Allergen Reactions ??? Simvastatin ??? Tegretol [Carbamazepine] Review of Systems Constitutional: Negative for appetite change and fever. HENT: Negative for rhinorrhea and sore throat. Eyes: Negative for visual disturbance. Respiratory: Negative for cough and shortness of breath. Cardiovascular: Positive for chest pain. Gastrointestinal: Positive for abdominal pain. Negative for nausea and vomiting. Genitourinary: Negative for dysuria and frequency. Skin: Negative for rash. Neurological: Negative for light-headedness and headaches. Psychiatric/Behavioral: Negative for confusion. Physical Exam BP 163/83 Pulse 86 Temp 36.1 ??C (96.9 ??F) (Temporal) Resp 18 SpO2 98% GEN: awake, alert; appears uncomfortable HEENT: MMM, PERRL; oropharynx clear NECK: supple CV: RRR w/o MRG PULM: normal WOB on RA; CTA ABD: soft, mildly distended; moderately TTP in RUQ, RLQ and LLQ; severely TTP in LUQ with guarding throughout EXT: WWP NEURO: grossly intact DERM: no rash or other lesion PSYCH: appropriate behavior and speech Procedures MDM and ED Course: Patient is transfer from OSH with apparently spontaneous splenic bleed vs. traumatic splenic laceration (from unremembered event). In either case, patient requires operative repair or IR intervention. He was HD stable on arrival and during his ED stay. Labs resent along with T&S. Two large boreIVs in place. Pain controlled with opiates. Admitted to surgery. See their notes for more details about work-up/management. Kenn Loving MD Resident 06/15/18 0057 Associated attestation - Shahid Silver MD - 06/15/2018 9:50 AM EDT I have personally seen and examined the patient. I reviewed the patient with Dr. Loving and agree with the nair findings and plan. documented in this encounter Miscellaneous Notes * Plan of Care - Jia Allen RN - 06/18/2018 5:51 AM EDT Problem: Patient Care Overview Goal: Plan of Care Review 06/15/18 0409 06/17/18 0728 Coping/Psychosocial Plan Of Care Reviewed With -- patient Plan of Care Review Progress improving -- OUTCOME EVALUATION NOTE: OUTCOME SUMMARY: pt ambulated around unit. Pain controlled with flexeril and oxycodone. Lactulose given, 2 loose stools. Taking po fluids well. PLAN MOVING FORWARD: monitor pain. Encourage ambulation and out of bed. Monitor I/O. INDIVIDUALIZED FALL PREVENTION INTERVENTIONS: Patient-specific fall risk factors per assessment: [current deficits]: Generalized weakness. Surgery. Pain and pain med. Assistance [level of assistance required for transfers and ambulation]: Standby and FWW Supervision [direct monitoring required during toileting and ADLs]: Supervision and prn assist for adl's Surveillance [continuous indirect monitoring]: masimo. Purposeful rounding. Safety rounds. Bed alarm Patient-specific fall prevention interventions for sensory deficits provided, if applicable: yes CPG GOAL OUTCOME EVALUATION: * Plan of Care - Griffin Prasad RN - 06/17/2018 12:38 PM EDT Problem: Skin Integrity Impairment, Risk/Actual (Adult) Goal: Identify Related Risk Factors and Signs and Symptoms Related risk factors and signs and symptoms are identified upon initiation of Human Response Clinical Practice Guideline (CPG) Outcome: Ongoing (Interventions Implemented as Appropriate) 06/15/18 0407 Skin Integrity Impairment, Risk/Actual Skin Integrity Impairment, Risk/Actual: Related Risk Factors age extremes;fluid/nutrition status;immobility OUTCOME EVALUATION NOTE: OUTCOME SUMMARY: Jimenez struggled with pain this shift rating 8-9/10 consistently. Some relief with PRN 10mg oxycodone Q4H. No c/o nausea, tolerating clear liquids diet well. VSS. UOP and fluid intake adequate. No BM this shift, pt is passing flatus. Pt's cough is becoming more productive, IS use promoted, OOB promoted. Resting between care. Pt requested supplemental/ energy drink, MD notified and boost ordered. Pt ambulated in hallway x1 with no symptoms noted. 1403 One time dose of milk of magnesia given Update 1528 PRN suppository given Update 1704 no effect from suppository or single dose milk of magnesia PLAN MOVING FORWARD: Continue to monitor and manage pain. Promote OOB and ambulation. Promote PO fluid intake. Possible d/c tomorrow 06/18/18 INDIVIDUALIZED FALL PREVENTION INTERVENTIONS: [place] Risk ? Patient-specific fall risk factors per assessment: [current deficits]:?Patient has 2 or more active diagnosis, uses an ambulatory aid, has generalized weakness (or impairment), pain, opioids for pain Assistance [level of assistance required for transfers and ambulation]:?SBA w FWW ? Supervision [direct monitoring required during toileting and ADLs]:?Eyes on ? Surveillance [continuous indirect monitoring]:?Bed/chair alarm, yellow fall band, NKE at bedside, purposeful rounding, environmental modification (floor free of clutter, tubing secured), bed in low position, lightening adjusted for task/safety, nonskid slippers when out of bed, wheels locked, call light in reach, upper side-rails raised X2, ID band on. ? Patient-specific fall prevention interventions for sensory deficits provided, if applicable: [X] N/A ? CPG GOAL OUTCOME EVALUATION: Goal: Skin Integrity/Wound Healing Patient will demonstrate the desired outcomes by discharge/transition of care. Outcome: Ongoing (Interventions Implemented as Appropriate) 06/17/18 0525 Skin Integrity Impairment, Risk/Actual (Adult) Skin Integrity/Wound Healing making progress toward outcome Problem: Pain, Acute (Adult) Goal: Identify Related Risk Factors and Signs and Symptoms Related risk factors and signs and symptoms are identified upon initiation of Human Response Clinical Practice Guideline (CPG) Outcome: Ongoing (Interventions Implemented as Appropriate) 06/15/18 0406 Pain, Acute Related Risk Factors (Acute Pain) surgery Signs and Symptoms (Acute Pain) fatigue/weakness;guarding/abnormal posturing/positioning;verbalization of pain descriptors;sleep pattern alteration Goal: Acceptable Pain Control/Comfort Level Patient will demonstrate the desired outcomes by discharge/transition of care. Outcome: Ongoing (Interventions Implemented as Appropriate) 06/17/18 0524 Pain, Acute (Adult) Acceptable Pain Control/Comfort Level making progress toward outcome Problem: Fluid Volume Deficit (Adult) Goal: Identify Related Risk Factors and Signs and Symptoms Related risk factors and signs and symptoms are identified upon initiation of Human Response Clinical Practice Guideline (CPG) Outcome: Ongoing (Interventions Implemented as Appropriate) 06/15/18 0405 Fluid Volume Deficit Fluid Volume Deficit: Related Risk Factors age extremes;fluid restriction;surgery;pain Signs and Symptoms (Fluid Volume Deficit) hemodynamic changes;muscle weakness;urine concentrated;thirst Goal: Fluid/Electrolyte Balance Patient will demonstrate the desired outcomes by discharge/transition of care. Outcome: Ongoing (Interventions Implemented as Appropriate) 06/17/18 05 Fluid Volume Deficit (Adult) Fluid/Electrolyte Balance making progress toward outcome Goal: Comfort/Well Being Patient will demonstrate the desired outcomes by discharge/transition of care. Outcome: Ongoing (Interventions Implemented as Appropriate) 06/17/18 05 Fluid Volume Deficit (Adult) Comfort/Well Being making progress toward outcome Problem: Patient Care Overview Goal: Plan of Care Review Outcome: Ongoing (Interventions Implemented as Appropriate) 06/15/18 0409 06/17/18 0728 Coping/Psychosocial Plan Of Care Reviewed With -- patient Plan of Care Review Progress improving -- Goal: Individualization & Mutuality Outcome: Ongoing (Interventions Implemented as Appropriate) 06/15/18 0100 Mutuality/Individual Preferences What Anxieties, Fears or Concerns Do You Have About Your Health or Care? none What Questions Do You Have About Your Health or Care? none What Information Would Help Us Give You More Personalized Care? none Goal: Fall Prevention-Safe Patient Handling Outcome: Ongoing (Interventions Implemented as Appropriate) 06/17/18727 Activity Activity Type activity adjusted per tolerance Activity Assistance Provided assistance, stand-by Assistive Device Utilized front-wheel walker Rahman Fall Risk History of Falling 0 Secondary Diagnosis 15 Ambulatory Aids 0 Intravenous Therapy/Heparin/Saline Lock 20 Gait/Transferring 10 Mental Status 0 Score 45 OTHER Rahman Fall Risk High Restraint Interventions Safety Promotion/Fall Prevention activity supervised;fall prevention program maintained;nonskid shoes/slippers when out of bed;safety round/check completed Positioning Body Position supine, head elevated Goal: Infection Control Outcome: Ongoing (Interventions Implemented as Appropriate) 06/17/18727 Safety Interventions Isolation Precautions standard precautions maintained Infection Prevention rest/sleep promoted Coping Strategies Supportive Measures active listening utilized;goal setting facilitated;relaxation techniques promoted;self-care encouraged;verbalization of feelings encouraged Goal: Discharge Needs Assessment Outcome: Ongoing (Interventions Implemented as Appropriate) 06/15/18 0100 Living Environment Transportation Available agency transportation;ambulance Goal: Interdisciplinary Rounds/Family Conf Outcome: Ongoing (Interventions Implemented as Appropriate) 06/15/18 0408 Interdisciplinary Rounds/Family Conf Participants physician;nursing;patient * Initial Assessments - Andreia Arrington RN - 06/17/2018 12:18 PM EDT Office of Care Management Initial Assessment Andreia Arrington RN reviewed record and discussed patient with Care Team. Source of Information: Pt, tx team, and chart review. Introduced self/reviewed role; services accepted. Reason for Hospitalization: Reason for Admission as Stated by Patient: chest pain Jimenez Barkley is63 yo male??with PMH CAD, HTN, HLD, COPD who presented with splenic laceration (grade IV) now s/p IR embolization No past medical history on file. Hospitalizations Within the Past 30 Days: yes pt was transferred from [facility] on 06/13/18 Anticipated Length Of Stay (If known): Expected Length of Hospitalization: 3 Current Decision-Making Capacity: has capacity to make his own decisions. Advance Care Planning: none. Pt was not interested. Did review [place] surrogacy law with pt. Pt states the only family he has in his life is his elderly mother who lives in [place], [place]. Current Coping/Education/Information Needs: Pt anxious to be discharged out of the hospital. Current Functional Ability: Independent with mobility. Does not require assistance with ADL's. Functional Status Prior to Admission: Independent with mobility and ADL's. Home Environment: Pt lives at the [facility] in [place], [place] it is an assisted living facility. His apartment is on the first floor. Social & Family Supports/Community Resources: Pt states he only has his mother that he can count on Behavioral Health History: Pt being treated for mood disorder and is being followed by PCP at the [facility]. Substance Use/Abuse: smokes tobacco, drinks a few beers a week. Pt reports using cannabis for pain relief. Other Pertinent/Service Specific Information: Pt will need a Medicaid ride home. Pt has [place] medicaid. Health/Prescription Coverage: Primary Insurance: MEDICAID [place] Secondary Insurance: N/A Prescription Coverage: Medicaid [place] primary care plus Preferred Pharmacy: the [facility] Assisted living Other: Primary Care Provider: none Patient/Caregiver Goals of Treatment: To return home Potential Needs for Transition of Care: Rehab/SNF: not indicated Home Health: not indicated DME: not indicated Dialysis: not indicated Community Resources: Transportation: [place] medicaid Other: Anticipated Barriers to Discharge/Special Considerations: none Assessment: Pt pleasant and cooperative during the interview. Pt is anxious to get home. Possible discharge 06/18/18 or 06/19. Plan: A member of the Care Management team will continue to monitor progress, follow for continuityof care and assist with transition of care planning. Andreia Arrington RN Pager: [phone] * Plan of Care - Latha Alatorre RN - 06/17/2018 5:36 AM EDT Problem: Patient Care Overview Goal: Plan of Care Review Outcome: Ongoing (Interventions Implemented as Appropriate) 06/15/18 0409 06/16/18 1940 Coping/Psychosocial Plan Of Care Reviewed With -- patient Plan of Care Review Progress improving -- OUTCOME EVALUATION NOTE: OUTCOME SUMMARY: Pt c/o of 8-9/10 pain throughout shift, managed with PRN oxycodone. Pt was offered tylenol and ibuprofen but pt refused stating he prefers the oxycodone and that tylenol and ibuprofen upset his stomach. Pts temp has been as high as 37.5 will continue to monitor. PLAN MOVING FORWARD: Manage pain, monitor I&O INDIVIDUALIZED FALL PREVENTION INTERVENTIONS: High fall risk Patient-specific fall risk factors per assessment: [current deficits]: 63 y.o. With IV sites, more than 1 active medical diagnosis, and generalized weakness Assistance [level of assistance required for transfers and ambulation]: 1 assist with FWW Supervision [direct monitoring required during toileting and ADLs]: standby Surveillance [continuous indirect monitoring]: Nurse knowledge exchange, purposeful rounding, environmental modifications (waste basket is out of the path and the IV tubing and cords are free from the floor), fall reduction program in place, lighting adjusted for task, bed in low position, wheels lo cked, side rails up (x2), nonskid socks worn OOB, no restraints, call light is within reach at all times, assistive device, bed/chair alarm, [place] ID band on Patient-specific fall prevention interventions for sensory deficits provided, if applicable: [X] N/A CPG GOAL OUTCOME EVALUATION: Goal: Individualization & Mutuality Outcome: Ongoing (Interventions Implemented as Appropriate) 06/15/18 0100 Mutuality/Individual Preferences What Anxieties, Fears or Concerns Do You Have About Your Health or Care? none What Questions Do You Have About Your Health or Care? none What Information Would Help Us Give You More Personalized Care? none Goal: Fall Prevention-Safe Patient Handling Outcome: Ongoing (Interventions Implemented as Appropriate) 06/16/18 1940 06/17/18 0525 Activity Activity Type activity adjusted per tolerance -- Activity Assistance Provided assistance, 1 person -- Assistive Device Utilized -- front-wheel walker Rahman Fall Risk History of Falling 0 -- Secondary Diagnosis 15 -- Ambulatory Aids 0 -- Intravenous Therapy/Heparin/Saline Lock 20 -- Gait/Transferring 10 -- Mental Status 0 -- Score 45 -- OTHER Rahman Fall Risk High -- Restraint Interventions Safety Promotion/Fall Prevention activity supervised;fall prevention program maintained;nonskid shoes/slippers when out of bed;safety round/check completed -- Positioning Body Position independent -- Goal: Infection Control Outcome: Ongoing (Interventions Implemented as Appropriate) 06/16/18 194 Safety Interventions Isolation Precautions standard precautions maintained Infection Prevention rest/sleep promoted Coping Strategies Supportive Measures active listening utilized;decision-making supported;positive reinforcement provided;self-care encouraged;relaxation techniques promoted;verbalization of feelings encouraged * Plan of Care - Elisabet Stearns RN - 06/16/2018 7:10 PM EDT Problem: Patient Care Overview Goal: Plan of Care Review Outcome: Ongoing (Interventions Implemented as Appropriate) 06/15/18 0409 06/16/18 0909 Coping/Psychosocial Plan Of Care Reviewed With -- patient Plan of Care Review Progress improving -- OUTCOME EVALUATION NOTE: OUTCOME SUMMARY: OOB ambulating today . No further complaints of chest pain. Abdominal/back pain treated with Q4 hour oxycodone. Patient is content in room. VSS. PLAN MOVING FORWARD: Continue with plan of care INDIVIDUALIZED FALL PREVENTION INTERVENTIONS: Patient-specific fall risk factors per assessment: [current deficits]: Bleeding risk, unsteady gait Assistance [level of assistance required for transfers and ambulation]: SBA with FWW Supervision [direct monitoring required during toileting and ADLs]: Eyes on Surveillance [continuous indirect monitoring]: NKE Patient-specific fall prevention interventions for sensory deficits provided, if applicable: Bed alarm CPG GOAL OUTCOME EVALUATION: * Plan of Care - Fanta Art RN - 06/16/2018 12:52 AM EDT Problem: Skin Integrity Impairment, Risk/Actual (Adult) Goal: Identify Related Risk Factors and Signs and Symptoms Related risk factors and signs and symptoms are identified upon initiation of Human Response Clinical Practice Guideline (CPG) Outcome: Ongoing (Interventions Implemented as Appropriate) 06/15/18 0407 Skin Integrity Impairment, Risk/Actual Skin Integrity Impairment, Risk/Actual: Related Risk Factors age extremes;fluid/nutrition status;immobility OUTCOME EVALUATION NOTE: OUTCOME SUMMARY: Jimenez reported pain to be uncontrolled at change of shift. notified. PRN Oxycodone order alteredto include a range. Scheduled Tylenol also added - but Jimenez has refused it thus far - reporting that it upsets his stomach. Bowel sounds are hypoactive, no report of nausea. Incision remains intact with no evidence of drainage. Voiding adequate amounts of urine. Blood pressure intermittently elevated - Labetalol administered x1. Requested to restart home Lisinopril - no new orders at this time. PLAN MOVING FORWARD: ? Pain management, encourage PO intake ? INDIVIDUALIZED FALL PREVENTION INTERVENTIONS: [place] Risk ? Patient-specific fall risk factors per assessment: [current deficits]:?Patient has 2 or more active medical diagnoses, has generalized weakness, has tubes/drains, and is taking opioid/narcotic medications for pain management. ? Assistance [level of assistance required for transfers and ambulation]:?Bedrest ? Supervision [direct monitoring required during toileting and ADLs]:?Eyes on ? Surveillance [continuous indirect monitoring]:?Purposeful rounding, observation by staff, NKE done at the bedside, bed/chair alarms activated, family at bedside, environmental modifications (wastebasket is out of the path and the IV tubing and cords are free from the floor), assistive device available and within reach, lighting adjusted for task, bed in low position, wheels locked, side railsup (x3), nonskid socks worn OOB, [place] ID band on, no restraints, and call light is within reach at all times. ? Patient-specific fall prevention interventions for sensory deficits provided, if applicable:?N/A ?? CPG GOAL OUTCOME EVALUATION: Goal: Skin Integrity/Wound Healing Patient will demonstrate the desired outcomes by discharge/transition of care. Outcome: Ongoing (Interventions Implemented as Appropriate) 06/15/18 1403 Skin Integrity Impairment, Risk/Actual (Adult) Skin Integrity/Wound Healing making progress toward outcome Problem: Pain, Acute (Adult) Goal: Identify Related Risk Factors and Signs and Symptoms Related risk factors and signs and symptoms are identified upon initiation of Human Response Clinical Practice Guideline (CPG) Outcome: Ongoing (Interventions Implemented as Appropriate) 06/15/18 0406 Pain, Acute Related Risk Factors (Acute Pain) surgery Signs and Symptoms (Acute Pain) fatigue/weakness;guarding/abnormal posturing/positioning;verbalization of pain descriptors;sleep pattern alteration Goal: Acceptable Pain Control/Comfort Level Patient will demonstrate the desired outcomes by discharge/transition of care. Outcome: Ongoing (Interventions Implemented as Appropriate) 06/15/18 1403 Pain, Acute (Adult) Acceptable Pain Control/Comfort Level making progress toward outcome Problem: Fluid Volume Deficit (Adult) Goal: Identify Related Risk Factors and Signs and Symptoms Related risk factors and signs and symptoms are identified upon initiation of Human Response Clinical Practice Guideline (CPG) Outcome: Ongoing (Interventions Implemented as Appropriate) 06/15/18 0405 Fluid Volume Deficit Fluid Volume Deficit: Related Risk Factors age extremes;fluid restriction;surgery;pain Signs and Symptoms (Fluid Volume Deficit) hemodynamic changes;muscle weakness;urine concentrated;thirst Goal: Fluid/Electrolyte Balance Patient will demonstrate the desired outcomes by discharge/transition of care. Outcome: Ongoing (Interventions Implemented as Appropriate) 06/15/18 1403 Fluid Volume Deficit (Adult) Fluid/Electrolyte Balance making progress toward outcome Goal: Comfort/Well Being Patient will demonstrate the desired outcomes by discharge/transition of care. Outcome: Ongoing (Interventions Implemented as Appropriate) 06/15/18 1403 Fluid Volume Deficit (Adult) Comfort/Well Being making progress toward outcome Problem: Patient Care Overview Goal: Individualization & Mutuality Outcome: Ongoing (Interventions Implemented as Appropriate) 06/15/18 0100 Mutuality/Individual Preferences What Anxieties, Fears or Concerns Do You Have About Your Health or Care? none What Questions Do You Have About Your Health or Care? none What Information Would Help Us Give You More Personalized Care? none Goal: Fall Prevention-Safe Patient Handling Outcome: Ongoing (Interventions Implemented as Appropriate) 06/15/181940 Rahman Fall Risk History of Falling 0 Secondary Diagnosis 15 Ambulatory Aids 0 Intravenous Therapy/Heparin/Saline Lock 20 Gait/Transferring 0 Mental Status 0 Score 35 OTHER Rahman Fall Risk Med Restraint Interventions Safety Promotion/Fall Prevention activity supervised;fall prevention program maintained;muscle strengthening facilitated;nonskid shoes/slippers when out of bed Positioning Body Position independent Activity Activity Type activity adjusted per tolerance;up ad guido Activity Assistance Provided assistance, 1 person Goal: Infection Control Outcome: Ongoing (Interventions Implemented as Appropriate) 06/15/181940 Safety Interventions Isolation Precautions standard precautions maintained Infection Prevention environmental surveillance performed;personal protective equipment utilized;rest/sleep promoted Coping Strategies Supportive Measures active listening utilized;problem solving facilitated;relaxation techniques promoted;self-care encouraged;verbalization of feelings encouraged * Plan of Care - Aspen Lloyd, RN - 06/15/2018 2:11 PM EDT Problem: Patient Care Overview Goal: Plan of Care Review Outcome: Ongoing (Interventions Implemented as Appropriate) 06/15/18 0409 06/15/18 0800 Coping/Psychosocial Plan Of Care Reviewed With -- patient Plan of Care Review Progress improving -- OUTCOME EVALUATION NOTE: OUTCOME SUMMARY: Patient AOx4 this morning and complains of 10/10 pain in LUQ/Chest/L Shoulder today. MDs notified, tramadol and ibuprofen given with no relief, so oxycodone 5mg and 0.2 IV dilaudid ordered and given.This gave the patient mild to moderate relief. Also given one dose of prn IV zofran for nausea presumed associated from taking pain medications on an empty stomach. Resolved. In light of pain being in the patient's chest, an EKG and troponins ordered. EKG = NSR and troponins negative (see chart fordetails). Patient hypertensive, labetalol ordered and given with good result. During report with night RN this morning, it was also noted that the patient had an infiltrated IV from LR MIVF. Vascular access paged and team notified. Plan to transfer patient to floor, will continue to monitor. PLAN MOVING FORWARD: Pain management and education Monitor for AAS need? Groin site checks CV monitori and monitoring for S/S of bleeding INDIVIDUALIZED FALL PREVENTION INTERVENTIONS: Patient-specific fall risk factors per assessment: [current deficits]: Generalized weakness, pain, restlessness, agitation Assistance [level of assistance required for transfers and ambulation]: Turns self in bed Supervision [direct monitoring required during toileting and ADLs]: Eyes on Surveillance [continuous indirect monitoring]: Bed alarm, call moss, room near nurses station, purposeful rounding Patient-specific fall prevention interventions for sensory deficits provided, if applicable: [X] No CPG GOAL OUTCOME EVALUATION: Making progress. * Consult Note - Jackie Cisse RN - 06/15/2018 8:26 AM EDT Images from the original note were not included. Infiltration/Extravasation Scale Jimenez Barkley [id number] Infiltration appearance: Left forearm, Infiltrate of Lactate Ringers. Edematous. Infiltration harm % for this extremity 21.5%. Based on measurement calculation (greatest measurement X divided by length of extremity multiplied by 100= %) Considerations and Nair: Consider the following: If the percentage of limb affected is <5% then select 1 If the percentage of limb affected is 6-25% then select 2 If the percentage of limb affected is 26-49% then select 3 If the percentage of limb affected is > 50% then always select 4 2 Skin blanched Edema 1 to 6 inches (2.5 to 15 cm) in any direction Cool to touch or without pain Infiltration appearance score: 2 Medication Name infiltrated is Lactated Ringers which is a (n) irritant Location of infiltration:left arm: posterior Measurement in cm of length and width of affected area---Affected extremity 11cm X 17cm Measurement of Circumference in cm of Infiltrated area of affected extremity 30cm at 7cm below the ac joint on the Left arm Measurement of Circumference in cm of Unaffected extremity 26.5cm on Right. (at same location as affected extremity) Pulses present on affected extremity yes Medicated treatment given per policy/ order: N/A Recommended Heat, rest and elevation. Heat appliedto site by Primary RN. Pillow under arm. Plan for continued monitoring of infiltration/extravasation Name of MD contacted paged at [phone]. 8:26 AM Team arrived at 0844 to see patient and recd page. Aware of Infiltrate and plan of care. Name of RN contacted NING French on unit and aware of infiltrate, removal and plan of care. 8:26 AM Name of Pharmacist if consulted N/A 8:26 AM Plastics Provider contacted: no 8:26 AM Name of Plastics MD (if consulted) ELL TEACHER CARING FOR THIS PATIENT WILL CONTINUE TO MONITOR AND WILL ASSUME CARE, VASCULAR ACCESS WILL NOT FOLLOW THIS EVENT AT THE SIGNING OF THIS NOTE. * Plan of Care - Nathan Crouch RN - 06/15/2018 4:08 AM EDT Problem: Patient Care Overview Goal: Plan of Care Review Outcome: Ongoing (Interventions Implemented as Appropriate) 06/15/18 0409 06/15/18 0410 Coping/Psychosocial Plan Of Care Reviewed With -- patient Plan of Care Review Progress improving -- OUTCOME EVALUATION NOTE: OUTCOME SUMMARY: Pt arrived from IR s/p splenic embolization. Pt BP 140-150's. Insertion site C/D/I. Pt A+Ox4. Doppler needed for lower extremity pulses. Satting in high 90's on 2L NC. LR running at 100ml/hr. Pt reports pain in LUQ. PRN oxycodone administered with positive results. Pt voided in urinal. PVR 320ml. Will continue to monitor. PLAN MOVING FORWARD: Assess for bleeding. Monitor labs/vitals INDIVIDUALIZED FALL PREVENTION INTERVENTIONS: Patient-specific fall risk factors per assessment: [current deficits]: Weakness Assistance [level of assistance required for transfers and ambulation]: Bedrest Supervision [direct monitoring required during toileting and ADLs]: Bedrest Surveillance [continuous indirect monitoring]: Abraham monitor. 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 Pt arrives receiving PRBC, EMS reports this is the only unit. Pt is A+OX4, reports pain continues in L chest/LUQ area. Abd is firm and tender. Respirations are even and unlabored. documented in this encounter Plan of Treatment Not on file documented as of this encounter Procedures Procedure Name Priority Date/Time Associated Diagnosis Comments HEMOGRAM Routine 06/18/2018 6:05 AM EDT BASIC METABOLIC PANEL (NON-FASTING) Routine 06/18/2018 6:05 AM EDT HEMOGRAM Routine 06/17/2018 1:28 AM EDT DIFFERENTIAL, AUTOMATED Routine 06/17/2018 1:28 AM EDT CBC (WITH DIFF) Routine 06/17/2018 1:28 AM EDT BASIC METABOLIC PANEL (NON-FASTING) Routine 06/17/2018 1:28 AM EDT SCAN, PERIPHERAL BLOOD Routine 06/16/2018 1:10 AM EDT HEMOGRAM Routine 06/16/2018 1:10 AM EDT DIFFERENTIAL, AUTOMATED Routine 06/16/2018 1:10 AM EDT CARDIAC ENZYMES ([facility]) STAT 06/16/2018 1:10 AM EDT CBC (WITH DIFF) Routine 06/16/2018 1:10 AM EDT CARDIAC ENZYMES ([facility]) STAT 06/15/2018 5:00 PM EDT CARDIAC ENZYMES ([facility]) STAT 06/15/2018 10:59 AM EDT EKG 12-LEAD STAT 06/15/2018 10:36 AM EDT Chest pain, unspecified type BASIC METABOLIC PANEL (NON-FASTING) STAT 06/15/2018 7:21 AM EDT HEMOGRAM STAT 06/15/2018 1:56 AM EDT POCT GLUCOSE Routine 06/15/2018 12:26 AM EDT CERTIFICATION OFFICER SCAN 06/15/2018 12:00 AM EDT IR ARTERIAL INTERVENTION STAT 06/14/2018 11:19 PM EDT XR CHEST ONE VIEW STAT 06/14/2018 7:0 4 PM EDT REQUEST FOR 2ND READ CT CHEST ABDOMEN PELVIS STAT 06/14/2018 6:49 PM EDT ABORH RECHECK STATUS STAT 06/14/2018 6:45 PM EDT HEMOGRAM STAT 06/14/2018 6:45 PM EDT DIFFERENTIAL, AUTOMATED STAT 06/14/2018 6:45 PM EDT ABO/RH TYPING STAT 06/14/2018 6:45 PM EDT APTT STAT 06/14/2018 6:45 PM EDT PROTHROMBIN TIME STAT 06/14/2018 6:45 PM EDT CBC (WITH DIFF) STAT 06/14/2018 6:45 PM EDT ANTIBODY SCREEN STAT 06/14/2018 6:45 PM EDT TYPE AND SCREEN ([facility]/JOSUE) STAT 06/14/2018 6:45 PM EDT BASIC METABOLIC PANEL (NON-FASTING) STAT 06/14/2018 6:45 PM EDT EKG 12-LEAD STAT 06/14/2018 6:41 PM EDT documented in this encounter Results * (ABNORMAL) Hemogram (06/18/2018 6:05 AM EDT) WBC 13.9(H) 4.0 - 9.5 x10(3)/[facility] LABORATORY RBC 2.77(L) 4.58 - 5.54 x10(6)/[facility] LABORATORY Hemoglobin 8.6(L) 13.7 - 16.5 gm/dL [facility] Hematocrit 25.6(L) 40.5 - 48.5 % [facility] MCV 92.4 82.9 - 93.1 fL [facility] MCH 31.0 27.5 - 32.1 pg [facility] MCHC 33.6 32.0 - 35.7 gm/dL [facility] Platelets 215 145 - 357 x10(3)/[facility] LABORATORY RDWSD 46.0(H) 36.0 - 45.0 [facility] LABORATORY RDWCV 13.5 11.4 - 13.8 % [facility] MPV 9.6 7.6 - 12.9 [facility] LABORATORY nRBC % Auto 0.1 % [facility] nRBC Abs Auto 0.020(H) 0.000 - 0.000 x10(3)/[facility] LABORATORY Blood specimen (specimen) 06/18/2018 6:05 AM EDT 06/18/2018 6:15 AM EDT Narrative Resulting Agency Comment Spec In Lab Joshua Jasmine MD HEMATOLOGY ORDERABLE S [facility] [place] [address] * (ABNORMAL) Basic Metabolic Panel (non-fasting) (06/18/2018 6:05 AM EDT) Glucose Lvl 125 65 - 199 mg/dL [facility] Comment:Diabetes: >=200 mg/d L plus symptoms BUN 10 10 - 20 mg/dL [facility] Creatinine 0.76(L) 0.80 - 1.50 mg/dL [facility] Sodium 136 135 - 145 mmol/L [facility] Potassium 3.6 3.5 - 5.0 mmol/L [facility] Comment: Please note: ??Patients with WBC >100,000 may have falsely elevated Potassium levels. ??For accurate Potassium quantification in these patients send serum separator tube (gold top) for subsequent determinations. ??Contact the Clinical Chemistry Laboratory if there are any questions. Chloride 96(L) 98 - 107 mmol/L [facility] CO2 28 22 - 31 mmol/L [facility] Anion Gap 12 5 - 15 mmol/L [facility] Calcium 9.0 8.5 - 10.5 mg/dL [facility] Estimated GFR 98 >=60 mL/min/1. 73 m?? [facility] Comment: The eGFR was calculated using the CKD-EPI equation. As with all creatinine based estimates of kidney function, eGFR values calculated with the CKD-EPI equation are not accurate in patients with acute kidney failure, extremes of body mass or the acutely ill. http://[employer]/[facility] eGFR 113 >=60 mL/min/1. 73 m?? [facility] Comment: The eGFR was calculated using the CKD-EPI equation. As with all creatinine based estimates of kidney function, eGFR values calculated with the CKD-EPI equation are not accurate in patients with acute kidney failure, extremes of body mass or the acutely ill. http://[employer]/[facility] Blood specimen (specimen) 06/18/2018 6:05 AM EDT 06/18/2018 6:15 AM EDT Narrative Resulting Agency Comment Spec In Lab Joshua Jasmine MD CHEMISTRY ORDERABLES [facility] [place] [address] * (ABNORMAL) Differential, Automated (06/17/2018 1:28 AM EDT) Neutrophils % 74.2 % [facility] Neutr Abs (ANC) 13.79(H) 1.70 - 6.10 x10(3)/mc L [facility] Lymphocytes % 11.0 % [facility] Lymphocytes Abs 2.0 0.9 - 3.2 x10(3)/mc L [facility] Monocytes % 11.9 % [facility] Monocyte Abs 2.2(H) 0.3 - 0.9 x10(3)/mc L [facility] Eosinophils % 2.0 % [facility] Eosinophils Abs 0.4 0.0 - 0.4 x10(3)/[facility] LABORATORY Basophils % 0.3 % [facility] Basophils Abs 0.1 0.0 - 0.1 x10(3)/[facility] LABORATORY Immature Gran % 0.60 % [facility] Comment: Immature granulocytes(IG's)percentage and absolute count will include metamyelocytes, myelocytes, and promyelocytes. Blood smears from CBCs yielding IG's will be scanned manually for concordance. If this scan disagrees with the automated IG or if promyelocytes are noted, a manual differential will be performed. Shaila Gran Abs 0.11(H) 0.00 - 0.04 x10(3)/[facility] LABORATORY Blood specimen (specimen) 06/17/2018 1:28 AM EDT 06/17/2018 1:35 AM EDT Narrative Resulting Agency Comment Spec In Lab Danny Hawk MD HEMATOLOGY O RDERABLES [facility] [place] [address] * (ABNORMAL) Hemogram (06/17/2018 1:28 AM EDT) WBC 18.6(H) 4.0 - 9.5 x10(3)/[facility] LABORATORY RBC 3.32(L) 4.58 - 5.54 x10(6)/[facility] LABORATORY Hemoglobin 10.4(L) 13.7 - 16.5 gm/dL [facility] Hematocrit 30.9(L) 40.5 - 48.5 % [facility] MCV 93.1 82.9 - 93.1 fL [facility] MCH 31.3 27.5 - 32.1 pg [facility] MCHC 33.7 32.0 - 35.7 gm/dL [facility] Platelets 190 145 - 357 x10(3)/[facility] LABORATORY RDWSD 45.8(H) 36.0 - 45.0 [facility] LABORATORY RDWCV 13.4 11.4 - 13.8 % [facility] MPV 9.7 7.6 - 12.9 [facility] LABORATORY nRBC % Auto 0.0 % [facility] nRBC Abs Auto 0.000 0.000 - 0.000 x10(3)/[facility] LABORATORY Blood specimen (specimen) 06/17/2018 1:28 AM EDT 06/17/2018 1:35 AM EDT Narrative Resulting Agency Comment Spec In Lab Danny Hawk MD HEMATOLOGY O RDERABLES [facility] [place] [address] * (ABNORMAL) Basic Metabolic Panel (non-fasting) (06/17/2018 1:28 AM EDT) Glucose Lvl 137 65 - 199 mg/dL [facility] Comment:Diabetes: >=200 mg/d L plus symptoms BUN 11 10 - 20 mg/dL [facility] Creatinine 0.78(L) 0.80 - 1.50 mg/dL [facility] Sodium 134(L) 135 - 145 mmol/L [facility] Potassium 3.7 3.5 - 5.0 mmol/L [facility] Comment: Please note: ??Patients with WBC >100,000 may have falsely elevated Potassium levels. ??For accurate Potassium quantification in these patients send serum separator tube (gold top) for subsequent determinations. ??Contact the Clinical Chemistry Laboratory if there are any questions. Chloride 94(L) 98 - 107 mmol/L [facility] CO2 25 22 - 31 mmol/L [facility] Anion Gap 15 5 - 15 mmol/L [facility] Calcium 9.4 8.5 - 10.5 mg/dL [facility] Estimated GFR 97 >=60 mL/min/1. 73 m?? [facility] Comment: The eGFR was calculated using the CKD-EPI equation. As with all creatinine based estimates of kidney function, eGFR values calculated with the CKD-EPI equation are not accurate in patients with acute kidney failure, extremes of body mass or the acutely ill. http://[employer]/[facility] eGFR 112 >=60 mL/min/1. 73 m?? [facility] Comment: The eGFR was calculated using the CKD-EPI equation. As with all creatinine based estimates of kidney function, eGFR values calculated with the CKD-EPI equation are not accurate in patients with acute kidney failure, extremes of body mass or the acutely ill. [email or web address] Blood specimen (specimen) 06/17/2018 1:28 AM EDT 06/17/2018 1:34 AM EDT Narrative Resulting Agency Comment Spec In Lab Joshua Jasmine MD CHEMISTRY ORDERABLES Performing Organization Address City/[facility]/ZIP Co de Phone Number [facility] [place] [address] * Scan, Peripheral Blood (06/16/2018 1:10 AM EDT) Plat Estimate Normal [facility] RBC Morphology Normal [facility] Blood specimen (specimen) 06/16/2018 1:10 AM EDT 06/16/2018 1:17 AM EDT Narrative Resulting Agency Comment Spec In Lab Danny Hawk MD HEMATOLOGY O RDERABLES Performing Organization Address City/[facility]/ZIP Co de Phone Number [facility] [place] [address] * (ABNORMAL) Differential, Automated (06/16/2018 1:10 AM EDT) Neutrophils % 80.2 % [facility] Neutr Abs (ANC) 14.73(H) 1.70 - 6.10 x10(3)/[facility] LABORATORY Lymphocytes % 7.7 % [facility] Lymphocytes Abs 1.4 0.9 - 3.2 x10(3)/[facility] LABORATORY Monocytes % 10.1 % [facility] Monocyte Abs 1.8(H) 0.3 - 0.9 x10(3)/[facility] LABORATORY Eosinophils % 1.3 % [facility] Eosinophils Abs 0.2 0.0 - 0.4 x10(3)/[facility] LABORATORY Basophils % 0.2 % [facility] Basophils Abs 0.0 0.0 - 0.1 x10(3)/[facility] LABORATORY Immature Gran % 0.50 % [facility] Comment: Immature granulocytes(IG's)percentage and absolute count will include metamyelocytes, myelocytes, and promyelocytes. Blood smears from CBCs yielding IG's will be scanned manually for concordance. If this scan disagrees with the automated IG or if promyelocytes are noted, a manual differential will be performed. Shaila Gran Abs 0.10(H) 0.00 - 0.04 x10(3)/[facility] LABORATORY Blood specimen (specimen) 06/16/2018 1:10 AM EDT 06/16/2018 1:17 AM EDT Narrative Resulting Agency Comment Spec In Lab Danny Hawk MD HEMATOLOGY O RDERABLES [facility] [place] [address] * (ABNORMAL) Hemogram (06/16/2018 1:10 AM EDT) WBC 18.4(H) 4.0 - 9.5 x10(3)/[facility] LABORATORY RBC 3.22(L) 4.58 - 5.54 x10(6)/[facility] LABORATORY Hemoglobin 10.0(L) 13.7 - 16.5 gm/dL [facility] Hematocrit 29.7(L) 40.5 - 48.5 % [facility] MCV 92.2 82.9 - 93.1 [facility] LABORATORY MCH 31.1 27.5 - 32.1 pg [facility] MCHC 33.7 32.0 - 35.7 gm/dL [facility] Platelets 198 145 - 357 x10(3)/[facility] LABORATORY RDWSD 46.3(H) 36.0 - 45.0 [facility] LABORATORY RDWCV 13.6 11.4 - 13.8 % [facility] MPV 9.9 7.6 - 12.9 [facility] LABORATORY nRBC % Auto 0.0 % [facility] nRBC Abs Auto 0.000 0.000 - 0.000 x10(3)/[facility] LABORATORY Blood specimen (specimen) 06/16/2018 1:10 AM EDT 06/16/2018 1:17 AM EDT Narrative Resulting Agency Comment Spec In Lab Danny Hawk MD HEMATOLOGY O RDERABLES [facility] [place] [address] * Cardiac Enzymes (LEB/CGP) (06/16/2018 1:10 AM EDT) Troponin-T <0.01 0.00 - 0.00 ng/mL [facility] Comment: The 99th percentile for Troponin T is less than 0.01 ng/mL, any detectable cTnT concentration using this assay should be considered elevated. According to the third universal definition of myocardial infarction the following criteria with a clinical presentation consistent with acute myocardial ischemia meets the diagnosis for a myocardial infarction (DC). Detection of a rise and/or fall of cTnT, with at least one value greater than the 99th percentile (> or = 0.01) and with at least one of the following ?? Symptoms of ischemia ?? New or presumed new significant NO-psgpzas-M wave (ST-T) changes or new left bundle branch block (LBBB) ?? Development of pathologic Q waves in the ECG ?? Imaging evidence of new loss of viable myocardium or new regional wall motion abnormality ?? Identification of an intracoronary thrombus by angiography or autopsy Samples for cTnT testing should be obtained serially upon first assessment and again 3 to 6 hours later. If the clinical suspicion is high and previous samples have been negative an additional sample may be indicated. Reference: Third [place] Definition of Myocardial Infarction. Journal of the [place] [employer] 2012;60:1581-98 CK, Total 50 0 - 200 unit/L [facility] Blood specimen (specimen) 06/16/2018 1:10 AM EDT 06/16/2018 1:17 AM EDT Narrative Resulting Agency Comment Spec In Lab Joshua Jasmine MD CHEMISTRY ORDERABLES [facility] [place] [address] * Cardiac Enzymes (LEB/CGP) (06/15/2018 5:00 PM EDT) Troponin-T <0.01 0.00 - 0.00 ng/mL [facility] Comment: The 99th percentile for Troponin T is less than 0.01 ng/mL, any detectable cTnT concentration using this assay should be considered elevated. According to the third universal definition of myocardial infarction the following criteria with a clinical presentation consistent with acute myocardial ischemia meets the diagnosis for a myocardial infarction (DC). Detection of a rise and/or fall of cTnT, with at least one value greater than the 99th percentile (> or = 0.01) and with at least one of the following ?? Symptoms of ischemia ?? New or presumed new significant BG-ufangcg-F wave (ST-T) changes or new left bundle branch block (LBBB) ?? Development of pathologic Q waves in the ECG ?? Imaging evidence of new loss of viable myocardium or new regional wall motion abnormality ?? Identification of an intracoronary thrombus by angiography or autopsy Samples for cTnT testing should be obtained serially upon first assessment and again 3 to 6 hours later. If the clinical suspicion is high and previous samples have been negative an additional sample may be indicated. Reference: Third [place] Definition of Myocardial Infarction. Journal of the [place] [employer] 2012;60:1581-98 CK, Total 51 0 - 200 unit/L [facility] Blood specimen (specimen) 06/15/2018 5:00 PM EDT 06/15/2018 5:05 PM EDT Narrative Resulting Agency Comment Spec In Lab Joshua Jasmine MD CHEMISTRY ORDERABLES [facility] [place] [address] * Cardiac Enzymes (LEB/CGP) (06/15/2018 10:59 AM EDT) Troponin-T <0.01 0.00 - 0.00 ng/mL [facility] Comment: The 99th percentile for Troponin T is less than 0.01 ng/mL, any detectable cTnT concentration using this assay should be considered elevated. According to the third universal definition of myocardial infarction the following criteria with a clinical presentation consistent with acute myocardial ischemia meets the diagnosis for a myocardial infarction (DC). Detection of a rise and/or fall of cTnT, with at least one value greater than the 99th percentile (> or = 0.01) and with at least one of the following ?? Symptoms of ischemia ?? New or presumed new significant UC-ripwjuj-M wave (ST-T) changes or new left bundle branch block (LBBB) ?? Development of pathologic Q waves in the ECG ?? Imaging evidence of new loss of viable myocardium or new regional wall motion abnormality ?? Identification of an intracoronary thrombus by angiography or autopsy Samples for cTnT testing should be obtained serially upon first assessment and again 3 to 6 hours later. If the clinical suspicion is high and previous samples have been negative an additional sample may be indicated. Reference: Third [place] Definition of Myocardial Infarction. Journal of the [place] [employer] 2012;60:1581-98 CK, Total 69 0 - 200 unit/L [facility] Blood specimen (specimen) 06/15/2018 10:59 AM EDT 06/15/2018 11:05 AM EDT Narrative Resulting Agency Comment Spec In Lab Joshua Jasmine MD CHEMISTRY ORDERABLES Performing Organization Address [facility] Co de Phone Number [facility] [place] [address] * EKG 12 Lead (06/15/2018 10:36 AM EDT) Ventricular rate 84 BPM MUSE SYSTEM Atrial Rate 84 BPM MUSE SYSTEM P-R Interval 120 ms MUSE SYSTEM QRS Duration 86 ms MUSE SYSTEM Q-T Interval 358 ms MUSE SYSTEM QTC Calculated (Bezet) 423 ms MUSE SYSTEM Calculated P [place] 21 degrees MUSE SYSTEM Calculated R [place] 61 degrees MUSE SYSTEM Calculated T [place] 74 degrees MUSE SYSTEM INTERPRETATION Normal sinus rhythm Normal ECG When compared with ECG of 14-JUN-2018 18:41, No significant change was found Confirmed by MD TERESA, RADHA ([id number]) on 06/15/2018 12:42:42 PM MUSE SYSTEM 06/15/2018 10:3 6 AM EDT 06/15/2018 12:42 PM EDT Joshua Jasmine MD ECG ORDERABLES Performing Organization Address [facility] Co de Phone Number MUSE SYSTEM * (ABNORMAL) Basic Metabolic Panel (non-fasting) (06/15/2018 7:21 AM EDT) Glucose Lvl 137 65 - 199 mg/dL [facility] Comment:Diabetes: >=200 mg/d L plus symptoms BUN 24(H) 10 - 20 mg/dL [facility] Creatinine 0.82 0.80 - 1.50 mg/dL [facility] Sodium 137 135 - 145 mmol/L [facility] Potassium 4.4 3.5 - 5.0 mmol/L [facility] Comment: Please note: ??Patients with WBC >100,000 may have falsely elevated Potassium levels. ??For accurate Potassium quantification in these patients send serum separator tube (gold top) for subsequent determinations. ??Contact the Clinical Chemistry Laboratory if there are any questions. Chloride 100 98 - 107 mmol/L [facility] CO2 25 22 - 31 mmol/L [facility] Anion Gap 12 5 - 15 mmol/L [facility] Calcium 8.7 8.5 - 10.5 mg/dL [facility] Estimated GFR 95 >=60 mL/min/1. 73 m?? [facility] Comment: The eGFR was calculated using the CKD-EPI equation. As with all creatinine based estimates of kidney function, eGFR values calculated with the CKD-EPI equation are not accurate in patients with acute kidney failure, extremes of body mass or the acutely ill. http://[employer] eGFR 110 >=60 mL/min/1. 73 m?? [facility] Comment: The eGFR was calculated using the CKD-EPI equation. As with all creatinine based estimates of kidney function, eGFR values calculated with the CKD-EPI equation are not accurate in patients with acute kidney failure, extremes of body mass or the acutely ill. [email or web address] Blood specimen (specimen) 06/15/2018 7:21 AM EDT 06/15/2018 7:24 AM EDT Narrative Resulting Agency Comment Spec In Lab Joshua Jasmine MD CHEMISTRY ORDERABLES Performing Organization Address City/State/[facility] Co de Phone Number [facility] [place] [address] * (ABNORMAL) Hemogram (06/15/2018 1:56 AM EDT) WBC 15.4(H) 4.0 - 9.5 x10(3)/[facility] LAB[facility]ATORY RBC 3.81(L) 4.58 - 5.54 x10(6)/[facility]ATORY Hemoglobin 11.6(L) 13.7 - 16.5 gm/dL [facility] Hematocrit 35.4(L) 40.5 - 48.5 % [facility] MCV 92.9 82.9 - 93.1 [facility] LABORATORY MCH 30.4 27.5 - 32.1 pg [facility] MCHC 32.8 32.0 - 35.7 gm/dL [facility] Platelets 215 145 - 357 x10(3)/[facility] LABORATORY RDWSD 47.7(H) 36.0 - 45.0 [facility] LABORATORY RDWCV 14.0(H) 11.4 - 13.8 % [facility] MPV 9.5 7.6 - 12.9 [facility] LABORATORY nRBC % Auto 0.0 % [facility] nRBC Abs Auto 0.000 0.000 - 0.000 x10(3)/[facility]ATORY Blood specimen (specimen) 06/15/2018 1:56 AM EDT 06/15/2018 2:03 AM EDT Narrative Resulting Agency Comment Spec In Lab Shahid Silver MD HEMATOLOGY ORDERABL ES Performing Organization Address [facility] Co de Phone Number [facility] [place] [address] * POCT Glucose (06/15/2018 12:26 AM EDT) POC Glucose 134 65 - 199 mg/dL [facility] Comment: Supplemental ranges: <140 mg/dL before meals <180 mg/dL all other times of the day Blood specimen (specimen) 06/15/2018 12:26 AM EDT 06/15/2018 12:26 AM EDT Joshua Jasmine MD POINT OF CARE TEST O RDERABLES Performing Organization Address City/[facility]/ZIP Co de Phone Number [facility] [place] [address] * SCAN DOC: CERTIFICATION OFFICER (06/15/2018 12:00 AM EDT) Anatomical Region Laterality Modality Other Narrative 06/15/2018 12:00 AM EDT Ordered by an unspecified provider. Scanning Provider MEDIA MGR SCAN EXT O RDR/RSLT * IR Arterial Intervention (06/14/2018 11:19 PM EDT) Anatomical Region Laterality Modality Vascular X-Ray Angiograph y Narrative 06/14/2018 11:33 PM EDT IR PROCEDURE NOTE ?? Procedure: ??Splenic arteriography and proximal splenic artery embolization. ?? Indication for Procedure: Per Dr. López, Jimenez Barkley??is a 63 y.o.??male??with acute onset left abdominal pain this morning, found to have spontaneous splenic rupture / hemorrhage at an outside hospital. ??Patient transfused en route with downtrending HH post arrival, Hbg 12.8 from 14. ??CT abdomen and pelvis demonstrates large perisplenic hematoma and 5-6 cm laceration / lesion inferior extending towards the hilum. ?IR consulted for splenic embolization. ? Procedure events and findings: Following discussion of the risks and benefits of the procedure, informed written consent was obtained. ??The patient was positioned on the procedure table and the right groin prepped and draped in the usual sterile fashion, maximum sterile barrier technique was used throughout. ??Due to the painful nature of the procedure, patient received split doses of intravenous fentanyl and versed from the IR nurse while pulse, pressure, and oxygen saturation were continuously monitored. 1% lidocaine was used for local analgesia. ??The right common femoral artery was accessed using micropuncture technique under ultrasound guidance. ??A 21 ga needle was advanced into the common femoral artery. ??An .018 guidewire was placed, and over this a 4 Fr sheath advanced. ??Wire and inner dilator were removed and through this a .035 ??J curve guidewire was advanced, 4 Fr sheath exchanged for a 5 Fr sheath. ?? A 5 Fr glide C2 catheter was placed and used to select the celiac artery and then the splenic artery. ??Selective splenic artery arteriogram was obtained which showed no evidence of active hemorrhage. There was abnormal perfusion of the cranial medial aspect of the spleen suggesting a splenic hemangioma. ?? A Heard wire was placed via the C2 catheter and the C2 exchanged for an angled mess cook 2 catheter. ??A 6 mm Amplatzer plug was placed and deployed within the proximal splenic artery. ??Injection of contrast into the splenic artery after plug placement showed occlusion of the splenic artery at the level of the plug. ??Catheter removed. ?? A hand injection of contrast was performed for imaging of the right external iliac and common femoral arteries. ??No stenoses were seen. ?? Sheath was then removed and hemostasis achieved with the use of a Mynx closure device. ? Medications: Fentanyl ??150mcg IV, Versed 3mg IV, 1% Lidocaine <10ccs subcutaneous. ?? Est Blood Loss: <5cc. ?? Complications: ??No immediate. ?? Impression: ?? 1. ??Splenic arteriography showed no evidence of active hemorrhage. ?? 2. ??Abnormal splenic perfusion suggesting hemangioma, which might account for splenic hemorrhage with no reported history of trauma. ?? 3. ??Proximal splenic artery occluded with a single Amplatz plug. ?? 4. ??Mynx closure device placed at right common femoral artery access site. ?? Resident/Fellow: ??Dr. López. ?? Attending: I, Dr. Montez performed this procedure. ??I was present during the intraservice time as documented by the IR Nurse.? Shaarn Montez MD IMG IR ORDERABLES * XR Chest PA or AP 1 view (06/14/2018 7:04 PM EDT) Anatomical Region Laterality Modality Chest N/A Digital Radiogra phy Impressions 06/14/2018 7:40 PM EDT No acute cardiopulmonary process. Narrative 06/14/2018 7:40 PM EDT EXAMINATION: XR CHEST PA OR AP 1 VIEW CLINICAL HISTORY: upright, portable; 63 yo M with sudden-onset severe L chest pain, L shoulder and LUQ abdominal pain. TECHNIQUE: Portable semiupright AP chest radiograph COMPARISON: Chest radiograph 06/14/2018 FINDINGS: The lungs are clear. No focal consolidation, pleural effusion or pneumothorax. The cardiomediastinal silhouette is within normal limits. A coronary artery stent is identified. No acute osseous findings. Procedure Note Dejah Negro DO - 06/14/2018 EXAMINATION: XR CHEST PA OR AP 1 VIEW CLINICAL HISTORY: upright, portable; 63 yo M with sudden-onset severe Lchest pain, L shoulder and LUQ abdominal pain. TECHNIQUE: Portable semiupright AP chest radiograph COMPARISON: Chest radiograph 06/14/2018 FINDINGS: The lungs are clear. No focal consolidation, pleural effusion orpneumothorax. The cardiomediastinal silhouette is within normal limits. A coronaryartery stent is identified. No acute osseous findings. IMPRESSION No acute cardiopulmonary process. 7:40 PM Ester Robles MD IMG DX ORDERABLES * Request For 2nd Read CT Chest Abdomen Pelvis (06/14/2018 6:49 PM EDT) Anatomical Region Laterality Modality Chest, Abdomen, Pelvis SO Impressions 06/15/2018 5:54 AM EDT Grade 3/4 splenic injury. Narrative 06/15/2018 5:54 AM EDT EXAMINATION: REQUEST FOR 2ND READ CT CHEST ABDOMEN PELVIS CLINICAL HISTORY: abdominal distension; What Modality is the exam? CT Scan; Body Part (please add comments as necessary): chest/abdomen/pelvis; I believe a reinterpretation of this exam may alter care of Patient. Yes TECHNIQUE: Reinterpretation request for outside CT chest abdomen/pelvis with intravenous contrast. Absence of enteric contrast renders suboptimal assessment of bowel lumen and surrounding soft tissue structures/viscera. COMPARISON: None FINDINGS: CHEST: Lungs/Pleura: Mild peribronchial thickening. Centrilobular emphysematous changes most prominent at the upper lungs. No confluent airspace opacity identified. No pleural effusion or pneumothorax seen. Mediastinum/Donna: Unremarkable. Heart: Unremarkable. Vasculature: Nonaneurysmal thoracic aorta. ABDOMEN/PELVIS: Liver: Unremarkable. Gallbladder: Unremarkable. Spleen: Large subcapsular hematoma with external perisplenic extension. Multiple lacerations at the inferior aspect of the spleen, also mildly at the posterior aspect where there may be a questionable region of devascularization versus distortion from mass effect from surrounding hemorrhage. No active extravasation identified. Pancreas: Unremarkable. Adrenal Glands: Unremarkable. Kidneys: Unremarkable. Urinary bladder: Unremarkable. GI: Unremarkable. Mesentery/Peritoneum: No free air identified. Perisplenic and perihepatic hemoperitoneum tracking along the paracolic gutters into the pelvis. Lymphatic System: No lymphadenopathy identified. Vasculature: Nonaneurysmal abdominal aorta. Osseous Structures: No acute abnormality identified. Procedure Note Chito Arthur MD - 06/15/2018 EXAMINATION: REQUEST FOR 2ND READ CT CHEST ABDOMEN PELVIS CLINICAL HISTORY: abdominal distension; What Modality is the exam? CTScan; Body Part (please add comments as necessary): chest/abdomen/pelvis; I believea reinterpretation of this exam may alter care of Patient. Yes TECHNIQUE: Reinterpretation request for outside CT chest abdomen/pelvis withintravenous contrast. Absence of enteric contrast renders suboptimal assessment ofbowel lumen and surrounding soft tissue structures/viscera. COMPARISON: None FINDINGS: CHEST: Lungs/Pleura: Mild peribronchial thickening. Centrilobular emphysematouschanges most prominent at the upper lungs. No confluent airspace opacityidentified. No pleural effusion or pneumothorax seen. Mediastinum/Donna: Unremarkable. Heart: Unremarkable. Vasculature: Nonaneurysmal thoracic aorta. ABDOMEN/PELVIS: Liver: Unremarkable. Gallbladder: Unremarkable. Spleen: Large subcapsular hematoma with external perisplenic extension.Multiple lacerations at the inferior aspect of the spleen, also mildly at theposterior aspect where there may be a questionable region of devascularizationversus distortion from mass effect from surrounding hemorrhage. No activeextravasation identified. Pancreas: Unremarkable. Adrenal Glands: Unremarkable. Kidneys: Unremarkable. Urinary bladder: Unremarkable. GI: Unremarkable. Mesentery/Peritoneum: No free air identified. Perisplenic andperihepatic hemoperitoneum tracking along the paracolic gutters into the pelvis. Lymphatic System: No lymphadenopathy identified. Vasculature: Nonaneurysmal abdominal aorta. Osseous Structures: No acute abnormality identified. IMPRESSION Grade 3/4 splenic injury. Jose A Sargent MD IMG OUTSIDE INTERPRE TATION ORDERABLES * ABORH Recheck Status (06/14/2018 6:45 PM EDT) ABOR[facility] Recheck Order Order Placed [facility] ABORH Type Recheck Complete [facility] Blood specimen (specimen) 06/14/2018 6:45 PM EDT 06/14/2018 6:55 PM EDT Narrative Resulting Agency Comment Spec In Lab Kenn Loving MD BLOOD BANK LAB ORDER MEAGAN [facility] [place] [address] * (ABNORMAL) Differential, Automated (06/14/2018 6:45 PM EDT) Neutrophils % 78.6 % [facility] Neutr Abs (ANC) 13.76(H) 1.70 - 6.10 x10(3)/ L [facility] Lymphocytes % 10.9 % [facility] Lymphocytes Abs 1.9 0.9 - 3.2 x10(3)/[facility] LABORATORY Monocytes % 7.4 % [facility] Monocyte Abs 1.3(H) 0.3 - 0.9 x10(3)/ L [facility] Eosinophils % 1.8 % [facility] Eosinophils Abs 0.3 0.0 - 0.4 x10(3)/ L [facility] Basophils % 0.6 % [facility] Basophils Abs 0.1 0.0 - 0.1 x10(3)/ L [facility] Immature Gran % 0.70 % [facility] Comment: Immature granulocytes(IG's)percentage and absolute count will include metamyelocytes, myelocytes, and promyelocytes. Blood smears from CBCs yielding IG's will be scanned manually for concordance. If this scan disagrees with the automated IG or if promyelocytes are noted, a manual differential will be performed. Shaila Gran Abs 0.13(H) 0.00 - 0.04 x10(3)/mc L [facility] Blood specimen (specimen) 06/14/2018 6:45 PM EDT 06/14/2018 7:09 PM EDT Narrative Resulting Agency Comment Spec In Lab Kenn Loving MD HEMATOLOGY ORDERABLE S [facility] [place] [address] * (ABNORMAL) Hemogram (06/14/2018 6:45 PM EDT) WBC 17.5(H) 4.0 - 9.5 x10(3)/[facility] LABORATORY RBC 4.17(L) 4.58 - 5.54 x10(6)/[facility]ATORY Hemoglobin 12.8(L) 13.7 - 16.5 gm/dL [facility] Hematocrit 38.3(L) 40.5 - 48.5 % [facility] MCV 91.8 82.9 - 93.1 fL [facility] MCH 30.7 27.5 - 32.1 pg [facility] MCHC 33.4 32.0 - 35.7 gm/dL [facility] Platelets 221 145 - 357 x10(3)/[facility]ORATORY RDWSD 47.5(H) 36.0 - 45.0 [facility]ATORY RDWCV 13.9(H) 11.4 - 13.8 % [facility] MPV 9.2 7.6 - 12.9 [facility] LABORATORY nRBC % Auto 0.0 % [facility] nRBC Abs Auto 0.000 0.000 - 0.000 x10(3)/[facility] Blood specimen (specimen) 06/14/2018 6:45 PM EDT 06/14/2018 7:09 PM EDT Narrative Resulting Agency Comment Spec In Lab Kenn Loving MD HEMATOLOGY ORDERABLE S Performing Organization Address City/[facility]/ZIP Co de Phone Number [facility] [place] [address] * Antibody screen (06/14/2018 6:45 PM EDT) Ab Screen Interp Negative [facility] Expires at [id number] on: 06/17/2018 [facility] Blood specimen (specimen) 06/14/2018 6:45 PM EDT 06/14/2018 6:55 PM EDT Narrative Resulting Agency Comment Spec In Lab Kenn Loving MD BLOOD BANK LAB ORDER MEAGAN Performing Organization Address City/[facility]/ZIP Co de Phone Number [facility] [place] [address] * ABO/Rh Typing (06/14/2018 6:45 PM EDT) Pathologist [facility] ABORH Type A Pos [facility] Blood specimen (specimen) 06/14/2018 6:45 PM EDT 06/14/2018 6:55 PM EDT Narrative Resulting Agency Comment Spec In Lab Kenn Loving MD BLOOD BANK LAB ORDER MEAGAN Performing Organization Address City/[facility]/ZIP Co de Phone Number [facility] [place] [address] * (ABNORMAL) APTT (06/14/2018 6:45 PM EDT) PTT <20(L) 25 - 37 sec [facility] Comment: Decreased clotting times may be caused by improper phlebotomy technique. The PTT is NOT appropriate for heparin monitoring. Use the Anti-Xa level for heparin monitoring (HEP UFH) or LMWH monitoring (HEP LMW). A PTT less than 37 seconds generally indicates adequate hemostasis. Blood specimen (specimen) 06/14/2018 6:45 PM EDT 06/14/2018 7:09 PM EDT Narrative Resulting Agency Comment Spec In Lab Shahid Silver MD HEMATOLOGY ORDERABL ES Performing Organization Address [facility] de Phone Number [facility] [place] [address] * Prothrombin Time (06/14/2018 6:45 PM EDT) PT 10.8 9.4 - 12.5 sec [facility] INR 1.0 [facility] Comment: An INR <2.0 indicates adequate procoagulant activity for hemostasis in most patients without underlying bleeding disorders, though the INR may not adequately reflect hemostatic capacity in patients with liver disease and synthetic impairment. The recommended target INR range for therapeutic anticoagulation is 2.0 ? 3.0 for most applications, though lower and higher ranges may be appropriate depending on clinical circumstances. Blood specimen (specimen) 06/14/2018 6:45 PM EDT 06/14/2018 7:09 PM EDT Narrative Resulting Agency Comment Spec In Lab Shahid Silver MD HEMATOLOGY ORDERABL ES Performing Organization Address [facility] de Phone Number [facility] [place] [address] * Basic Metabolic Panel (non-fasting) (06/14/2018 6:45 PM EDT) Glucose Lvl 121 65 - 199 mg/dL [facility] Comment:Diabetes: >=200 mg/d L plus symptoms BUN 19 10 - 20 mg/dL [facility] Creatinine 0.87 0.80 - 1.50 mg/dL [facility] Sodium 137 135 - 145 mmol/L [facility] Potassium 4.6 3.5 - 5.0 mmol/L [facility] Comment: Please note: ??Patients with WBC >100,000 may have falsely elevated Potassium levels. ??For accurate Potassium quantification in these patients send serum separator tube (gold top) for subsequent determinations. ??Contact the Clinical Chemistry Laboratory if there are any questions. Chloride 100 98 - 107 mmol/L [facility] CO2 24 22 - 31 mmol/L [facility] Anion Gap 13 5 - 15 mmol/L [facility] Calcium 8.6 8.5 - 10.5 mg/dL [facility] Estimated GFR 92 >=60 mL/min/1. 73 m?? [facility] Comment: The eGFR was calculated using the CKD-EPI equation. As with all creatinine based estimates of kidney function, eGFR values calculated with the CKD-EPI equation are not accurate in patients with acute kidney failure, extremes of body mass or the acutely ill. [email or web address]/[facility]STERnkf eGFR 107 >=60 mL/min/1. 73 m?? [facility] Comment: The eGFR was calculated using the CKD-EPI equation. As with all creatinine based estimates of kidney function, eGFR values calculated with the CKD-EPI equation are not accurate in patients with acute kidney failure, extremes of body mass or the acutely ill. [email or web address] Blood specimen (specimen) 06/14/2018 6:45 PM EDT 06/14/2018 7:09 PM EDT Narrative Resulting Agency Comment Spec In Lab Shahid Silver MD CHEMISTRY ORDERABLE [facility] [address] * EKG 12 Lead (06/14/2018 6:41 PM EDT) Ventricular rate 92 BPM MUSE SYSTEM Atrial Rate 92 BPM MUSE SYSTEM P-R Interval 114 ms MUSE SYSTEM QRS Duration 86 ms MUSE SYSTEM Q-T Interval 358 ms MUSE SYSTEM QTC Calculated (Bezet) 442 ms MUSE SYSTEM Calculated P [place] -14 degrees MUSE SYSTEM Calculated R [place] 56 degrees MUSE SYSTEM Calculated T [place] 68 degrees MUSE SYSTEM INTERPRETATION Normal sinus rhythm Normal ECG No previous ECGs available Confirmed by MD TERESA, RADHA ([id number]) on 06/15/2018 12:42:34 PM MUSE SYSTEM 06/14/2018 6:41 PM EDT 06/15/2018 12:42 PM EDT Shahid Silver MD ECG ORDERABLES [employer]roprietary) SYSTEM documented in this encounter Visit Diagnoses Diagnosis Laceration of spleen, initial encounter Chest pain, unspecified type Splenic laceration Other spleen injury without mention of open wound into cavity documented in this encounter Admitting Diagnoses Diagnosis Splenic laceration Other spleen injury without mention of open wound into cavity documented in this encounter Administered Medications Inactive Administered Medications - up to 3 most recent administrations Medication Order MAR Action Action Date Dose Rate Site acetaminophen (TYLENOL) tablet 650 mg 650 mg, Oral, EVERY 6 HOURS, First dose (after last modification) on 06/15/18 at 2100, Until Discontinued, Maximum dose of acetaminophen is 4000 mg from all sources in 24 hours., Routine aspirin EC tablet 81 mg 81 mg, Oral, DAILY, First dose on 06/15/18 at 1015, Until Discontinued, Routine Given 06/18/2018 8:49 AM EDT 81 mg Given 06/17/2018 9:30 AM EDT 81 mg Given 06/16/2018 8:20 AM EDT 81 mg bisacodyl (DULCOLAX) suppository 10 mg 10 mg, Rectal, DAILY PRN, Starting on Sun06/17/18 at 1330, Until Sun06/18/18 at 1719, Constipation, Routine Given 06/17/2018 3:28 PM EDT 10 mg budesonide-formoterol (SYMBICORT) 160-4.5 mcg/actuation inhaler 2 Inhalation 2 Inhalation , Inhalation, 2 TIMES DAILY, First dose on Sun06/14/18 at 2200, Until Discontinued, Routine Given 06/18/2018 8:50 AM EDT 2 Inhalati on Given 06/17/2018 8:15 PM EDT 2 Inhalation Given 06/17/2018 9:33 AM EDT 2 Inhalation buPROPion (WELLBUTRIN XL) XL tablet 300 mg 300 mg, Oral, EVERY MORNING, First dose on 06/15/18 at 1100, Until Discontinued, DO NOT CRUSH OR OPEN, Routine Given 06/18/2018 6:04 AM EDT 300 mg Given 06/17/2018 7:28 AM EDT 300 mg Given 06/16/2018 6:43 AM EDT 300 mg citalopram (CeleXA) tablet 20 mg 20 mg, Oral, DAILY, First dose on 06/15/18 at 0900, Until Discontinued, Routine Given 06/18/2018 8:50 AM EDT 20 mg Given 06/17/2018 9:29 AM EDT 20 mg Given 06/16/2018 8:19 AM EDT 20 mg cyclobenzaprine (FLEXERIL) tablet 5 mg 5 mg, Oral, 2 TIMES DAILY PRN, Starting on Sun06/16/18 at 0638, Until Sun06/18/18 at 1719, Muscle spasms, Routine Given 06/17/2018 8:23 PM EDT 5 mg docusate sodium (COLACE) capsule 100 mg 100 mg, Oral, 2 TIMES DAILY, First dose on 06/15/18 at 0900, Until Discontinued, Routine Given 06/18/2018 8:51 AM EDT 100 mg Given 06/17/2018 8:15 PM EDT 100 mg Given 06/17/2018 9:30 AM EDT 100 mg fentaNYL (PF) 50 mcg/mL injection 1 dose, Starting on Sun06/14/18 at 2207, Until Sun06/14/18 at 2222, LISBETH MONZON: kevininet override fentaNYL 50 mcg/mL multi-dose injection 25-50 mcg, Intravenous, EVERY 5 MIN PRN, Starting on Sun06/14/18 at 2144, Until Sun06/14/18 at 2342, Pain, per unit protocol, - Start dose 50 mcg (reduce dose to 25 mcg if history of sedation sensitivity). - Titration dose 25-50 mcg IV, (based on patient response) every 3 minutes PRN, to maintain procedural pain less than 2 per pain Scale. Maximum dose: 50 mcg/dose, 250 mcg/hour For use in Interventional Radiology (IR) only for procedural sedation with direct provider supervision and verbal order., Angio/IR (Intra-Procedure), Routine Given 06/14/2018 10:58 PM EDT 25 mcg Given 06/14/2018 10:46 PM EDT 25 mcg Given 06/14/2018 10:31 PM EDT 50 mcg flu vacc (6 mos-64 yrs)(PF) (Flulaval Quad) IM injection 0.5 mL 0.5 mL, Intramuscular, PRIOR TO DISCHARGE, 1 dose, Starting on 06/15/18 at 0428, Until Sun06/18/18 at 1719, Per Protocol, Routine heparin (Porcine) subcutaneous injection 5,000 Units 5,000 Units, Subcutaneous, EVERY 8 HOURS SCHEDULED, First dose on Sun06/16/18 at 0900, Until Discontinued, Routine Given 06/18/2018 2:34 PM EDT 5,000 Unit s Given 06/18/2018 6:05 AM EDT 5,000 Units Given 06/17/2018 10:32 PM EDT 5,000 Units hydrALAZINE (APRESOLINE) injection 5 mg 5 mg, Intravenous, EVERY 6 HOURS PRN, Starting on Sun06/15/18 at 1040, Until Sun06/18/18 at 1719, High Blood Pressure, for systolic >170 non-responsive to labetalol. Given 06/15/2018 4:27 PM EDT 5 mg HYDROmorphone (DILAUDID) injection 0.2 mg 0.2 mg, Intravenous, EVERY 4 HOURS PRN, Starting on Sun06/15/18 at 1027, Until Sun06/17/18 at 1212, Pain, STAT Given 06/15/2018 4:59 PM EDT 0.2 mg Given 06/15/2018 11:05 AM EDT 0.2 mg HYDROmorphone (DILAUDID) injection 0.5 mg 0.5 mg, Intravenous, EVERY 2 HOURS PRN, Starting on Sun06/14/18 at 1948, Until Sun06/15/18 at 0051, Pain, STAT Given 06/14/2018 8:20 PM EDT 0.5 mg ibuprofen (ADVIL;MOTRIN) tablet 400 mg 400 mg, Oral, EVERY 6 HOURS PRN, Starting on Sun06/15/18 at 0658, Until Sun06/18/18 at 1719, Pain, Administer orally with milk or food to minimize GI irritation. Maximum dose of 3200 mg from all sources in 24 hours, Routine Given 06/15/2018 6:40 PM EDT 400 mg Given 06/15/2018 9:38 AM EDT 400 mg iohexol (OMNIPAQUE) 350 mg/mL solution 300 mL 300 mL, Intra-arterial, ONCE, 1 dose, On Sun06/14/18 at 2322, Warning Vesicant/Irritant Medication , Angio/IR (Intra-Procedure), Routine Given 06/14/2018 11:22 PM EDT 50 mLs ipratropium-albuterol (DUONEB) 0.5 mg-3 mg(2.5 mg base)/3 mL nebulizer solution 3 mL 3 mL, Nebulization, EVERY 4 HOURS PRN, Starting on Sun06/14/18 at 2111, Until Sun06/18/18 at 1719, Wheezing, Routine labetalol (NORMODYNE,TRANDATE) injection 10 mg 10 mg, Intravenous, EVERY 6 HOURS PRN, Starting on 06/15/18 at 1039, Until Sun06/18/18 at 1719, High Blood Pressure, For systolic >180. Hold for HR <60 or systolic <100, Routine Given 06/15/2018 7:50 PM EDT 10 mg Given 06/15/2018 12:05 PM EDT 10 mg lactated Ringers infusion 1,000 mL 1,000 mL, at 100 mL/hr, Intravenous, CONTINUOUS, Starting on 06/15/18 at 0115, Until Sun06/15/18 at 0659 New Bag 06/15/2018 1:26 AM EDT 1,000 mLs 100 mL/hr lactulose (CHRONULAC) 20 gram/30 mL oral solution 20 g 20 g, Oral, 2 TIMES DAILY PRN, Starting on Sun06/17/18 at 1758, Until Sun06/18/18 at 1719, Constipation, Routine Given 06/17/2018 8:16 PM EDT 20 g lidocaine (LIDODERM) 5 % patch 1 patch 1 patch, Transdermal, EVERY 24 HOURS, First dose on 06/15/18 at 0730, Until Discontinued, Apply patch(es) for 12 hours, and then remove for 12 hours, Routine Patch Applied 06/18/2018 8:52 AM EDT 1 patch 13- Abdomen (Left) Patch Applied 06/17/2018 7:28 AM EDT 1 patch 13- Abdomen (Left) Patch Applied 06/16/2018 8:18 AM EDT 1 patch 13- Abdomen (Left) lidocaine (LIDODERM) 5 %(700 mg/patch) Patch Removal Transdermal, EVERY 24 HOURS, First dose on 06/15/18 at 1915, Until Discontinued, Remove lidocaine 5 %(700 mg/patch) patch lidocaine (XYLOCAINE) 10 mg/mL (1 %) injection 10 mg 10 mg, Subcutaneous, ONCE, 1 dose, On Sun06/14/18 at 2146, For use in Interventional Radiology (IR) only for procedure with direct provider supervision and verbal order., Angio/IR (Intra-Procedure), Routine Given 06/14/2018 10:32 PM EDT 10 mg lisinopril (PRINIVIL;ZESTRIL) tablet 10 mg 10 mg, Oral, DAILY, First dose on Sun06/16/18 at 0900, Until Discontinued, Routine Given 06/18/2018 8:53 AM EDT 10 mg Given 06/17/2018 9:30 AM EDT 10 mg Given 06/16/2018 8:19 AM EDT 10 mg magnesium hydroxide (MILK OF MAGNESIA) oral suspension 5 mL 5 mL, Oral, ONCE, 1 dose, On Sun06/17/18 at 1400, 10 mL concentrate = 30 mL regular, Routine Given 06/17/2018 2:03 PM EDT 5 mLs midazolam (PF) (VERSED) 1 mg/mL injection 1 dose, Starting on Sun06/14/18 at 2207, Until Sun06/14/18 at 2222, LISBETH MONZON: cabinet override midazolam (PF) (VERSED) 1 mg/mL multi-dose injection 0.5-1 mg 0.5-1 mg, Intravenous, EVERY 3 MIN PRN, Starting on Sun06/14/18 at 2144, Until Sun06/14/18 at 2342, Sleep, - Start dose; 1 mg (Reduce dose to 0.5 mg if history of sedation sensitivity). - Titration dose: 0.5 mg - 1 mg (based on patient response) every 3 minutes PRN to obtain RASS score of -3. Maximum dose: 1 mg per dose, 5 mg/hour. For use in Interventional Radiology (IR) only for procedural sedation with direct provider supervision and verbal order., Angio/IR (Intra-Procedure), Routine Given 06/14/2018 10:58 PM EDT 0.5 mg Given 06/14/2018 10:46 PM EDT 0.5 mg Given 06/14/2018 10:31 PM EDT 1 mg ondansetron (ZOFRAN) injection 4-8 mg 4-8 mg, Intravenous, EVERY 8 HOURS PRN, Starting on 06/15/18 at 0051, Until Sun06/18/18 at 1719, Nausea, Start with 4mg and if ineffective in 30 minutes, give an additional 4mg If multiple antiemetics are ordered, give ondansetron first. Given 06/15/2018 10:04 AM EDT 4 mg ondansetron (ZOFRAN) tablet 4-8 mg 4-8 mg, Oral, EVERY 8 HOURS PRN, Starting on Sun06/15/18 at 0051, Until Sun06/18/18 at 1719, Nausea, Vomiting, If multiple antiemetics are ordered, use ondansetron first. PO Preferred. If patient unable to take PO, may give IV if ordered. Start with 4mg and if ineffective in 45 minutes, give an additional 4mg. If unable to take PO, may give IV., Routine oxyCODONE (ROXICODONE) immediate release tablet 5 mg 5 mg, Oral, EVERY 4 HOURS PRN, Starting on Sun06/14/18 at 2112, Until Sun06/15/18 at 0659, Pain, Routine Given 06/15/2018 2:02 AM EDT 5 mg oxyCODONE (ROXICODONE) immediate release tablet 5 mg 5 mg, Oral, EVERY 4 HOURS PRN, Starting on 06/15/18 at 0958, Until Sun06/15/18 at 1957, Pain, Routine Given 06/15/2018 7:36 PM EDT 5 mg Given 06/15/2018 3:05 PM EDT 5 mg Given 06/15/2018 10:04 AM EDT 5 mg oxyCODONE (ROXICODONE) immediate release tablet 5 mg 5 mg, Oral, EVERY 4 HOURS PRN, Starting on Sun06/18/18 at 0515, Until Sun06/18/18 at 1719, Pain, For pain 3-6 give 5mg. For pain 7-10 give 10mg., Routine Given 06/18/2018 2:34 PM EDT 5 mg Given 06/18/2018 10:33 AM EDT 5 mg oxyCODONE (ROXICODONE) immediate release tablet 5-10 mg 5-10 mg, Oral, EVERY 4 HOURS PRN, Starting on 06/15/18 at 1956, Until Sun06/18/18 at 0516, Pain, For pain 3-6 give 5mg. For pain 7-10 give 10mg., Routine Given 06/18/2018 3:45 AM EDT 10 mg Given 06/17/2018 10:32 PM EDT 10 mg Given 06/17/2018 6:22 PM EDT 10 mg polyethylene glycol (MIRALAX) packet 17 g 17 g, Oral, DAILY, First dose on 06/15/18 at 0900, Until Discontinued, Routine Given 06/18/2018 8:53 AM EDT 17 g Given 06/17/2018 9:31 AM EDT 17 g Given 06/16/2018 8:18 AM EDT 17 g prochlorperazine (COMPAZINE) injection 10 mg 10 mg, Intravenous, EVERY 6 HOURS PRN, Starting on 06/15/18 at 0051, Until Tu06/18/18 at 1719, Nausea, Nausea/Vomiting, If multiple antiemetics are ordered, use ondansetron first. If ondansetron ineffective use prochlorperazine. , Routine Given 06/15/2018 4:59 PM EDT 10 mg prochlorperazine (COMPAZINE) tablet 10 mg 10 mg, Oral, EVERY 6 HOURS PRN, Starting on 06/15/18 at 0051, Until Tu06/18/18 at 1719, Nausea, Nausea/Vomiting, If multiple antiemetics are ordered, use ondansetron first. If ondansetron ineffective use prochlorperazine. PO Preferred. If patient unable to take PO, may give IV if ordered., Routine sodium chloride 0.9 % flush 5 mL 5 mL, Intravenous, 2 TIMES DAILY, First dose on 06/15/18 at 0115, Until Discontinued, Routine Given 06/17/2018 8:16 PM EDT 5 mLs Given 06/17/2018 9:32 AM EDT 5 mLs Given 06/16/2018 9:17 PM EDT 5 mLs sodium chloride 0.9 % flush 5 mL 5 mL, Intravenous, EVERY 12 HOURS, First dose on Sun06/14/18 at 2146, Until Discontinued, Day of Surgery (Day of Procedure), Routine Given 06/14/2018 9:46 PM EDT 5 mLs sodium chloride 0.9% infusion 1,000 mL, at 100 mL/hr, Intravenous, CONTINUOUS, Starting on 06/14/18 at 2146, Until 06/15/18 at 0031, Day of Surgery (Day of Procedure) New Bag 06/14/2018 10:15 PM EDT 1,000 mLs 100 mL/hr traMADol (ULTRAM) tablet 50 mg 50 mg, Oral, EVERY 6 HOURS PRN, Starting on 06/15/18 at 0704, Until 06/15/18 at 0958, Pain, Routine Given 06/15/2018 8:36 AM EDT 50 mg traZODone (DESYREL) tablet 100 mg 100 mg, Oral, NIGHTLY, First dose on 06/15/18 at 2100, Until Discontinued, Routine Given 06/17/2018 8:16 PM EDT 100 mg Given 06/16/2018 9:16 PM EDT 100 mg Given 06/15/2018 8:40 PM EDT 100 mg documented in this encounter Active and Recently Administered Medications Times are shown in EDT. Scheduled Medication Order 06/16/2018 06/17/2018 06/18/2018 acetaminophen (TYLENOL) tablet 650 mg 650 mg, Oral, EVERY 6 HOURS, First dose (after last modification) on 06/15/18 at 2100, Until Discontinued, Maximum dose of acetaminophen is 4000 mg from all sources in 24 hours., Routine 0300 (Not Given - Provider: Fanta Art RN - Reason: Patient/family refused)0819 (Not Given - Provider: Elisabet Stearns RN - Reason: Patient/family refused)1500 (Not Given - Provider: Elisabet Stearns RN - Reason: Patient/family refused)2100 (Not Given - Provider: Latha Alatorre RN - Reason: Patient/family refused) 0300 (Not Given - Provider: Latha Alatorre RN - Reason: Patient/family refused)0900 (Hold - Provider: Griffin Prasad RN - Reason: Patient/family refused)1500 (Not Given - Provider: Griffin Prasad RN - Reason: Patient/family refused)2100 (Not Given - Provider: Jia Allen RN - Reason: Patient/family refused) 0300 (Not Given - Provider: Jia Allen RN - Reason: Patient/family refused)0900 (Not Given - Provider: Jessica Cummings - Reason: Patient/family refused)1500 (Not Given - Provider: Griffin Prasad RN - Reason: Patient/family refused) aspirin EC tablet 81 mg 81 mg, Oral, DAILY, First dose on 06/15/18 at 1015, Until Discontinued, Routine 0820 (Given - Provider: Elisabet Stearns RN) 0930 (Given - Provider: Griffin Prasad RN) 0849 (Given - Provider: Jessica Cummings) budesonide-formoterol (SYMBICORT) 160-4.5 mcg/actuation inhaler 2 Inhalation 2 Inhalation , Inhalation, 2 TIMES DAILY, First dose on Sun06/14/18 at 2200, Until Discontinued, Routine 0818 (Given - Provider: Elisabet Stearns RN)2100 (Given - Provider: Latha Alatorre, NING) 0933 (Given - Provider: Griffin Prasad RN)2014 (Given - Provider: Jia Allen RN) 0850 (Given - Provider: Jessica Cummings) buPROPion (WELLBUTRIN XL) XL tablet 300 mg 300 mg, Oral, EVERY MORNING, First dose on 06/15/18 at 1100, Until Discontinued, DO NOT CRUSH OR OPEN, Routine 0643 (Given - Provider: Fanta Art RN) 0728 (Given - Provider: Griffin Prasad RN) 0604 (Given - Provider: Jia Allen RN) citalopram (CeleXA) tablet 20 mg 20 mg, Oral, DAILY, First dose on 06/15/18 at 0900, Until Discontinued, Routine 0819 (Given - Provider: Elisabet Stearns RN) 0929 (Given - Provider: Griffin Prasad RN) 0850 (Given - Provider: Jessica Cummings) docusate sodium (COLACE) capsule 100 mg 100 mg, Oral, 2 TIMES DAILY, First dose on 06/15/18 at 0900, Until Discontinued, Routine 0819 (Given - Provider: Elisabet Stearns RN)211 (Given - Provider: Latha Alatorre RN) 0930 (Given - Provider: Griffin Prasad RN)2014 (Given - Provider: Jia Allen RN) 0851 (Given - Provider: Jessica Cummings) heparin (Porcine) subcutaneous injection 5,000 Units 5,000 Units, Subcutaneous, EVERY 8 HOURS SCHEDULED, First dose on 06/16/18 at 0900, Until Discontinued, Routine 0900 (Not Given - Provider: Elisabet Stearns RN - Reason: See comment - Comment: new order)1312 (Given - Provider: Elisabet Stearns RN)2116 (Given - Provider: Latha Alatorre RN) 0557 (Given - Provider: Latha Alatorre RN)1319 (Given - Provider: Griffin Prasad RN)2232 (Given - Provider: Jia Allen RN) 0605 (Given - Provider: Jia Allen RN)1434 (Given - Provider: Griffin Prasad RN) lidocaine (LIDODERM) 5 % patch 1 patch(Linked Group 1) 1 patch, Transdermal, EVERY 24 HOURS, First dose on 06/15/18 at 0730, Until Discontinued, Apply patch(es) for 12 hours, and then remove for 12 hours, Routine 0818 (Patch Applied - Provider: Elisabet Stearns RN) 0728 (Patch Applied - Provider: Griffin Prasad RN) 0852 (Patch Applied - Provider: Jessica Cummings) lidocaine (LIDODERM) 5 %(700 mg/patch) Patch Removal(Linked Group 1) Transdermal, EVERY 24 HOURS, First dose on 06/15/18 at 1915, Until Discontinued, Remove lidocaine 5 %(700 mg/patch) patch 191 (Patch Removed - Provider: Latha Alatorre RN) 191 (Patch Removed - Provider: Jia Allen RN) lisinopril (PRINIVIL;ZESTRIL) tablet 10 mg 10 mg, Oral, DAILY, First dose on 06/16/18 at 0900, Until Discontinued, Routine 0819 (Given - Provider: Elisabet Stearns RN) 0930 (Given - Provider: Griffin Prasad RN) 0853 (Given - Provider: Jessica Cummings) magnesium hydroxide (MILK OF MAGNESIA) oral suspension 5 mL (COMPLETED) 5 mL, Oral, ONCE, 1 dose, On Sun06/17/18 at 1400, 10 mL concentrate = 30 mL regular, Routine 1403 (Given - Provider: Griffin Prasad, RN) polyethylene glycol (MIRALAX) packet 17 g 17 g, Oral, DAILY, First dose on 06/15/18 at 0900, Until Discontinued, Routine 0818 (Given - Provider: Elisabet Stearns RN) 0931 (Given - Provider: Griffin Prasad, NING) 0853 (Given - Provider: Jessica Cummings) sodium chloride 0.9 % flush 5 mL 5 mL, Intravenous, 2 TIMES DAILY, First dose on 06/15/18 at 0115, Until Discontinued, Routine 0900 (Not Given - Provider: Elisabet Stearns RN - Reason: Patient/family refused)2116 (Given - Provider: Latha Alatorre RN) 32 (Given - Provider: Griffin Prasad RN)2015 (Given - Provider: Jia Allen RN) 0900 (Not Given - Provider: Jessica Cummings - Reason: Loss of access) traZODone (DESYREL) tablet 100 mg 100 mg, Oral, NIGHTLY, First dose on 06/15/18 at 2100, Until Discontinued, Routine 2115 (Given - Provider: Ltaha Alatorre RN) 2015 (Given - Provider: Jia Allen RN) PRN Medication Order 06/16/2018 06/17/2018 06/18/2018 bisacodyl (DULCOLAX) suppository 10 mg 10 mg, Rectal, DAILY PRN, Starting on Sun06/17/18 at 1330, Until Sun06/18/18 at 1719, Constipation, Routine 152 (Given - Provider: Griffin Prasad, NING) cyclobenzaprine (FLEXERIL) tablet 5 mg 5 mg, Oral, 2 TIMES DAILY PRN, Starting on 06/16/18 at 0638, Until Sun06/18/18 at 1719, Muscle spasms, Routine 2022 (Given - Provider: Jia Allen, NING) flu vacc (6 mos-64 yrs)(PF) (Flulaval Quad) IM injection 0.5 mL 0.5 mL, Intramuscular, PRIOR TO DISCHARGE, 1 dose, Starting on 06/15/18 at 0428, Until Sun06/18/18 at 1719, Per Protocol, Routine 1440 (Canceled Entry - Provider: Griffin Prasad RN - Reason: Patient/family refused) hydrALAZINE (APRESOLINE) injection 5 mg 5 mg, Intravenous, EVERY 6 HOURS PRN, Starting on 06/15/18 at 1040, Until Sun06/18/18 at 1719, High Blood Pressure, for systolic >170 non-responsive to labetalol. ibuprofen (ADVIL;MOTRIN) tablet 400 mg 400 mg, Oral, EVERY 6 HOURS PRN, Starting on 06/15/18 at 0658, Until Sun06/18/18 at 1719, Pain, Administer orally with milk or food to minimize GI irritation. Maximum dose of 3200 mg from all sources in 24 hours, Routine ipratropium-albuterol (DUONEB) 0.5 mg-3 mg(2.5 mg base)/3 mL nebulizer solution 3 mL 3 mL, Nebulization, EVERY 4 HOURS PRN, Starting on Sun06/14/18 at 2111, Until Sun06/18/18 at 1719, Wheezing, Routine labetalol (NORMODYNE,TRANDATE) injection 10 mg 10 mg, Intravenous, EVERY 6 HOURS PRN, Starting on Sun06/15/18 at 1039, Until Sun06/18/18 at 1719, High Blood Pressure, For systolic >180. Hold for HR <60 or systolic <100, Routine lactulose (CHRONULAC) 20 gram/30 mL oral solution 20 g 20 g, Oral, 2 TIMES DAILY PRN, Starting on 06/17/18 at 1758, Until Sun06/18/18 at 1719, Constipation, Routine 2015 (Given - Provider: Jia Allen RN) lidocaine (XYLOCAINE) 10 mg/mL (1 %) injection 3 mg 3 mg (0.3 mL), Subcutaneous, ONCE PRN, 1 dose, Starting on Sun06/15/18 at 0051, Until Sun06/18/18 at 1719, for discomfort with PIV insertion, Routine ondansetron (ZOFRAN) injection 4-8 mg(Linked Group 2) 4-8 mg, Intravenous, EVERY 8 HOURS PRN, Starting on 06/15/18 at 0051, Until Sun06/18/18 at 1719, Nausea, Start with 4mg and if ineffective in 30 minutes, give an additional 4mg If multiple antiemetics are ordered, give ondansetron first. ondansetron (ZOFRAN) tablet 4-8 mg(Linked Group 2) 4-8 mg, Oral, EVERY 8 HOURS PRN, Starting on 06/15/18 at 0051, Until Sun06/18/18 at 1719, Nausea, Vomiting, If multiple antiemetics are ordered, use ondansetron first. PO Preferred. If patient unable to take PO, may give IV if ordered. Start with 4mg and if ineffective in 45 minutes, give an additional 4mg. If unable to take PO, may give IV., Routine oxyCODONE (ROXICODONE) immediate release tablet 5 mg 5 mg, Oral, EVERY 4 HOURS PRN, Starting on Sun06/18/18 at 0515, Until Sun06/18/18 at 1719, Pain, For pain 3-6 give 5mg. For pain 7-10 give 10mg., Routine 1033 (Given - Provider: Griffin Prasad RN)1434 (Given - Provider: Griffin Prasad RN) oxyCODONE (ROXICODONE) immediate release tablet 5-10 mg (CANCELED) 5-10 mg, Oral, EVERY 4 HOURS PRN, Starting on 06/15/18 at 1956, Until Sun06/18/18 at 0516, Pain, For pain 3-6 give 5mg. For pain 7-10 give 10mg., Routine 0048 (Given - Provider: Fanta Art RN)0438 (Given - Provider: Fanta Art RN)0909 (Given - Provider: Elisabet Stearns RN)1312 (Given - Provider: Elisabet Stearns RN)1714 (Given - Provider: Elisabet Stearns RN)2116 (Given - Provider: Latha Alatorre RN) 0118 (Given - Provider: Latha Alatorre RN)0557 (Given - Provider: Latha Alatorre RN)1021 (Given - Provider: Griffin Prasad, NING)1422 (Given - Provider: Griffin Prasad, RN)1822 (Given - Provider: Griffin Prasad, RN)2232 (Given - Provider: Jia Allen RN) 0345 (Given - Provider: Sherita Mahajan RN) prochlorperazine (COMPAZINE) injection 10 mg(Linked Group 3) 10 mg, Intravenous, EVERY 6 HOURS PRN, Starting on 06/15/18 at 0051, Until Tu06/18/18 at 1719, Nausea, Nausea/Vomiting, If multiple antiemetics are ordered, use ondansetron first. If ondansetron ineffective use prochlorperazine. , Routine prochlorperazine (COMPAZINE) tablet 10 mg(Linked Group 3) 10 mg, Oral, EVERY 6 HOURS PRN, Starting on 06/15/18 at 0051, Until 06/18/18 at 1719, Nausea, Nausea/Vomiting, If multiple antiemetics are ordered, use ondansetron first. If ondansetron ineffective use prochlorperazine. PO Preferred. If patient unable to take PO, may give IV if ordered., Routine sodium chloride 0.9 % flush 5-20 mL 5-20 mL, Intravenous, EVERY 1 MIN PRN, Starting on 06/15/18 at 0051, Until Tu06/18/18 at 1719, flush, Flush pertains to all indwelling lines. Flush per protocol found in the job aid using the link provided on this medication record., Routine Linked Groups Order Group 1: lidocaine (LIDODERM) 5 % patch 1 patchJump to med 1 patch, Transdermal, EVERY 24 HOURS, First dose on 06/15/18 at 0730, Until Discontinued, Apply patch(es) for 12 hours, and then remove for 12 hours, Routine And lidocaine (LIDODERM) 5 %(700 mg/patch) Patch RemovalJump to med Transdermal, EVERY 24 HOURS, First dose on 06/15/18 at 1915, Until Discontinued, Remove lidocaine 5 %(700 mg/patch) patch Group 2: ondansetron (ZOFRAN) tablet 4-8 mgJump to med 4-8 mg, Oral, EVERY 8 HOURS PRN, Starting on 06/15/18 at 0051, Until 06/18/18 at 1719, Nausea, Vomiting, If multiple antiemetics are ordered, use ondansetron first. PO Preferred. If patient unable to take PO, may give IV if ordered. Start with 4mg and if ineffective in 45 minutes, give an additional 4mg. If unable to take PO, may give IV., Routine Or ondansetron (ZOFRAN) injection 4-8 mgJump to med 4-8 mg, Intravenous, EVERY 8 HOURS PRN, Starting on 06/15/18 at 0051, Until 06/18/18 at 1719, Nausea, Start with 4mg and if ineffective in 30 minutes, give an additional 4mg If multiple antiemetics are ordered, give ondansetron first. Group 3: prochlorperazine (COMPAZINE) tablet 10 mgJump to med 10 mg, Oral, EVERY 6 HOURS PRN, Starting on 06/15/18 at 0051, Until 06/18/18 at 1719, Nausea, Nausea/Vomiting, If multiple antiemetics are ordered, use ondansetron first. If ondansetron ineffective use prochlorperazine. PO Preferred. If patient unable to take PO, may give IV if ordered., Routine Or prochlorperazine (COMPAZINE) injection 10 mgJump to med 10 mg, Intravenous, EVERY 6 HOURS PRN, Starting on 06/15/18 at 0051, Until 06/18/18 at 1719, Nausea, Nausea/Vomiting, If multiple antiemetics are ordered, use ondansetron first. If ondansetron ineffective use prochlorperazine. , Routine documented in this encounter Care Teams Associate Faculty Relationship Specialty Start Date End Date None None PCP - General 08/09/10 07/22/18 documented as of this encounter
--- OUTSIDE RECORDS SUMMARY | 2024-04-16 13:56 | XMS_ITS | Encounter Summary ---
[place] [address] Care Team Providers Care Sap Director Name Role Phone None Primary Care Provider Unavailabl e Encounter Details Date Type Department Care Team (Late st Contact Info) Description 03/08/2016 Orders [place] [id number] Sherita Morley Social History Tobacco Use Types Packs/Day Years [...] on file documented as of this encounter Plan of Treatment Not on file documented as of this encounter Visit Diagnoses Not on filedocumented in this encounter Care Teams Sap Director Relationship Specialty Start Date End Date None None PCP - General 08/09/10 07/22/18 documented as of this encounter
--- OUTSIDE RECORDS SUMMARY | 2024-04-16 13:56 | XMS_ITS | Encounter Summary ---
Author Organization [facility] [place] [address] Care Team Providers Care Software Applications Engineer Name Role Phone None Primary Care Provider Unavailabl e Encounter Details Date Type Department Care Team (Latest Contact Info) Description 06/14/2018 12:05 AM EDT - 06/14/2018 5:52 PM EDT Hospital Encounter Radiology [place] [address] Jose A Sargent MD [facility] [place] [address] Discharge Disposition: Home Social History Tobacco Use [...] Dispensed Refills Start Date End Date multivitamin Wpzt-Lt-SW-Min (THERAPEUTIC-M) 27-0.4 mg Tablet Take 1 tablet [...] Associated Diagnosis Comments FILM LIBRARY STORAGE ONLY CT CHEST ABDOMEN PELVIS Routine 06/14/2018 12:05 AM EDT documented in this encounter Results * Film Library- Storage Only CT Chest Abdomen Pelvis (06/14/2018 12:05 AM EDT) Narrative RICH - 06/14/2018 4:15 PM EDT This exam is for storage only and is auto-finalizing. Jose A Sargent MD IMG FILM LIBRARY ORD ERABLES RICH [place], [place] documented in this encounter Visit Diagnoses Not on filedocumented in this encounter Care Teams Software Applications Engineer Relationship Specialty Start Date End Date None None PCP - General 08/09/10 07/22/18 documented as of this encounter
--- OUTSIDE RECORDS SUMMARY | 2024-04-16 13:56 | XMS_ITS | Encounter Summary ---
Author Organization [facility] [place] [address] Care Team Providers Care Commercial Art Instructor Name Role Phone RanjitNess elkins DARIANA Primary Care Provider Encounter Details Date Type Department Care Team (Latest Contact Info) Description 06/23/2020 11:30 AM EDT TH Visit (TeleHealth) [place] [address] Matilda Zapata APRN [facility] [place] [address] Closed fracture of face bones due to fall with routine healing, subsequent encounter Social History Tobacco Use Types Packs/Day Years [...] on file documented as of this encounter Progress Notes * Matilda Zapata APRN - 06/23/2020 11:30 AM EDT Plastic Surgery, Telephone Visit. Matilda Zapata APRN CC: Facial trauma s/p fall 04/29/2020 HPI: Jimenez Marin is a 65 y.o. male who sustained nasal bone fracture, right orbital fracture, right maxillary sinus fracture, and right zygomatic arch fracture from a fall 04/29. These were treatednon operatively. Experienced dizzy spells and numbness in face around taoist and gums on right side. He was seen by PCP and had an MRI yesterday. Scheduled to see PCP again on 07/15. Headaches have calmed down. Jaw feels alright. Vision is normal. No diplopia. Diet is normal. He has no questions or concerns. Impression: Jimenez Marin 65 y.o. male seen in follow-up, s/p facial trauma ~ 8 wks ago. He is healing well. Plan: Follow up: with questions or concerns from the patient or his PCP. documented in this encounter Plan of Treatment Not on file documented as of this encounter Visit Diagnoses Diagnosis Closed fracture of face bones due to fall with routine healing, subsequent encounter documented in this encounter Care Teams Commercial Art Instructor Relationship Specialty Start Date End Date Ness Diaz APRN [address] [place] [address] PCP - General Family Medicine 05/07/20 documented as of this encounter
--- OUTSIDE RECORDS SUMMARY | 2024-04-16 13:56 | XMS_ITS | Encounter Summary ---
Author Organization [facility] Address [facility] [place] [address] Care Team Providers Care Bait Man Name Role Phone Tammy Farley MD Primary Care Provider [phone] Encounter Details Date Type Department Care Team (Late st Contact Info) Description 04/30/2020 Telephone [place] [address] Shakira Horta Social History Tobacco Use Types Packs/Day Years [...] on file documented as of this encounter Miscellaneous Notes * Telephone Encounter - Shakira Horta - 04/30/2020 8:21 AM EDT Attempted to contact patient to have scheduled with PRS team. Phone continued to ring, unable to leave a VM documented in this encounter Plan of Treatment Not on file documented as of this encounter Visit Diagnoses Not on filedocumented in this encounter Care Teams Bait Man Relationship Specialty Start Date End Date Tammy Farley MD [address] [place] [address] [address] [place] [address] PCP - General Family Medicine 07/23/18 05/06/20 documented as of this encounter
--- OUTSIDE RECORDS SUMMARY | 2024-04-16 13:56 | XMS_ITS | Encounter Summary ---
Author Organization [facility] Address [facility] [place] [address] Care Team Providers Care Legal Technician Name Role Phone None Primary Care Provider Unavailabl e Reason for Visit * Reason Onset Date Comments Results 03/28/2016 Encounter Details Date Type Department Care Team (Late st Contact Info) Description 03/28/2016 Telephone [place] [phone] Braydon Carrillo MD [facility] DR ORTHOPAED[place] [address] Results Social History Tobacco Use Types Packs/Day Years [...] encounter Miscellaneous Notes * Telephone Encounter - Palak Spivey RN - 03/28/2016 1:10 PM EDT Returned call to patient, spoke with samantha Henson, instructed once the MRI was reviewed by Dr. Carrillo, patient would be contacted. Howie acknowledged. * Telephone Encounter - Tanya Thomas - 03/28/2016 11:24 AM EDT What study is patient calling about? mri Per [facility] the study was done: 03/23/2016 Per [facility] the results are final: yes Best number to reach the patient # [phone], requesting to fax results as well # [phone] attn howie I will forward your message to the team and someone will follow up with you within 48 hours. documented in this encounter Plan of Treatment Not on file documented as of this encounter Visit Diagnoses Not on filedocumented in this encounter Care Teams Legal Technician Relationship Specialty Start Date End Date None None PCP - General 08/09/10 07/22/18 documented as of this encounter
--- OUTSIDE RECORDS SUMMARY | 2024-04-16 13:56 | XMS_ITS | Encounter Summary ---
Author Organization [facility] [place] [address] Care Team Providers Care Supervisor Looping Name Role Phone DavNess causey DARIANA Primary Care Provider Reason for Referral * Diagnostic Test (Routine) - Closed Specialty Diagnoses / Procedures Referred By Contac t Referred To Contact Radiology Diagnoses Pleural nodule Procedures NM PET CT Skull Base to Mid-thigh Mabel Gurrola PA [address] [place] [address] [place] [address] Referral ID Status Reason Start Date Expiration Date V isits Requested Visits Authorized [id number] Closed Specialty Service Requested 10/23/2022 04/22/2024 1 1 Reason for Visit * Diagnostic Test (Routine) - Closed Specialty Diagnoses / Procedures Referred By Contac t Referred To Contact Radiology Diagnoses Pleural nodule Procedures NM PET CT Skull Base to Mid-thigh Mabel Gurrola PA [address] [place] [address] [place] [address] Referral ID Status Reason Start Date Expiration Date V isits Requested Visits Authorized [id number] Closed Specialty Service Requested 10/23/2022 04/22/2024 1 1 Encounter Details Date Type Department Care Team (Latest Contact Info) Description 11/13/2022 2:27 PM EST Hospital Encounter [place] [address] Mabel Gurrola PA [address] [place] [address] Pleural nodule Discharge Disposition: Home Social History Tobacco Use [...] Sig Dispensed Refills Start Date End Date budesonide/formoterol fumarate (SYMBICORT INHL) Inhale into the lungs. loratadine (Claritin) 10 mg Tablet Take 10 mg by mouth daily. QUEtiapine (SEROquel) 50 mg Tablet Take 50 mg by mouth 2 times daily. lamotrigine (LAMICTAL ORAL) Take 50 mg by mouth 2 times daily. atorvastatin (Lipitor) 20 mg Tablet Take 20 mg by mouth daily. meloxicam (MOBIC) 15 mg Tablet Take 15 mg by mouth daily. fluticasone propionate (FLONASE) 50 mcg/actuation Benedict, Suspension 1 spray daily. lisinopril (PRINIVIL;ZESTRIL) 10 mg Tablet Take 10 mg by mouth daily. aspirin 81 mg Tablet, Delayed Release (E.C.) Take 81 mg by mouth daily. omeprazole (PRILOSEC) 20 mg Capsule, Delayed Release(E.C.) Take 20 mg by mouth daily. traZODone (DESYREL) 100 mg Tablet Take 100 mg by mouth nightly. multivitamin Tqpk-Gc-AJ-Min (THERAPEUTIC-M) 27-0.4 mg Tablet Take 1 tablet [...] Inhale 18 mcg into the lungs daily. documented as of this encounter Plan of Treatment Not on file documented as of this encounter Procedures Procedure Name Priority Date/Time Associated Diagnosis Comments NM PET CT SKULL BASE TO MID-THIGH ([facility]) Routine 11/13/2022 4:00 PM EST Pleural nodule documented in this encounter Results * NM PET CT Skull Base to Mid-thigh (11/13/2022 4:00 PM EST) Anatomical Region Laterality Modality Positron Emissio n Tomography (PET) Impressions 11/16/2022 9:49 AM EST 1. ??Subcentimeter ill-defined FDG avid opacity in the right upper lobe/apex, FDG avidity similar to that of background mediastinal blood pool, not seen on 2018 CT. This is indeterminate for an inflammatory etiology or possibly an indolent neoplasm. CT follow-up in 6 months is recommended. 2. ??Small FDG avid pleural-based opacity in the lateral right upper lobe/apex, FDG activity similar to that of background mediastinal blood pool, also not present on 2018 CT. This is favored likely to represent scarring. CT follow-up in 6 months is recommended. 3. ??Additional incidental findings as above. Thank you for letting us participate in the care of this patient. ??If you are a health care provider and have any questions regarding this report, please contact the number below. ??For patients who have questions please contact the health child care development specialist that requested your imaging first. ? Narrative 11/16/2022 9:49 AM EST EXAMINATION: SC PET CT STANDARD SKULL BASE TO MID-THIGH CLINICAL HISTORY: pleural nodule; concern for lung ca TECHNIQUE: Following IV injection of 54-owrmou-8-deoxyglucose (FDG) a standard uptake of approximately 60 minutes, a noncontrast CT scan followed by a PET scan were acquired from the base of the skull to mid thighs. The noncontrast CT was used for anatomic localization and photon attenuation correction of the PET scan. No oral contrast was administered. Blood glucose level: 105 (mg/dL) FDG dose: 8.8 mCi [address]:. [address] head, face, and cervical spine 04/29/[address] abdomen/pelvis 07/05/2018 from [facility] CT chest, abdomen, and pelvis 06/14/2018 from [facility] FINDINGS: HEAD/NECK: Symmetric muscular activity in the lower neck, likely secondary to tension/strain. Normal activity in all other soft tissue regions. Incidental CT visualized focal opacification of a mid to posterior right ethmoid air cell, largely unchanged from 04/29/2020. Previously demonstrated opacification of the right maxillary sinus has resolved. CHEST: Small approximately 8-9 mm FDG avid ill-defined opacity in the right upper lobe/apex at site of convergence vascular structures (axial image 73), activity similar to that of background mediastinal blood pool. This is not clearly seen on the prior [address] Small pleural-based opacity with linear component at the lateral right upper lobe/apex (axial image 69) demonstrates FDG activity similar to that of background mediastinal blood pool, and is not seen on the 2018 CT. Diffuse increased activity of the bilateral intercostal diaphragmatic muscles, likely secondary to muscular tension/strain. Normal activity in all other soft tissue regions. Incidental CT findings: Bilateral diffuse emphysematous changes, biapical scarring. Aortic and multivessel coronary artery calcifications. ABDOMEN/PELVIS: Small FDG avid focus adjacent to the left ischium, consistent with enthesopathy. Additional enthesopathy at activity at the right greater trochanter. Mildly increased left gluteal muscular activity, again likely secondary to tension/strain. Normal activity in all other soft tissue regions. Incidental CT findings: Diffuse dense vascular calcifications. Small spleen, likely sequela of prior traumatic injury. Unchanged moderate atrophy of the pancreas. SKELETON/EXTREMITIES: Degenerative uptake in the mid to lower cervical and lumbar spine. Small FDG avid focus corresponding to ununited left L3 transverse process fracture. Focal FDG uptake adjacent to the distal right clavicle with widening of the AC joint and accompanying cortical irregularity, raising the question of distal clavicular osteolysis. Procedure Note Ashley Kerr MD - 11/16/2022 EXAMINATION: SC PET CT STANDARD SKULL BASE TO MID-THIGH CLINICAL HISTORY: pleural nodule; concern for lung ca TECHNIQUE: Following IV injection of 95-qusmwn-6-deoxyglucose (FDG) astandard uptake of approximately 60 minutes, a noncontrast CT scan followed by aPET scan were acquired from the base of the skull to mid thighs. The noncontrast CTwas used for anatomic localization and photon attenuation correction of thePET scan. No oral contrast was administered. Blood glucose level: 105 (mg/dL) FDG dose: 8.8 mCi COMPARISON:. CT head, face, and cervical spine 04/29/[facility] CT abdomen/pelvis 07/05/2018 from [facility] CT chest, abdomen, and pelvis 06/14/2018 from [facility] FINDINGS: HEAD/NECK: Symmetric muscular activity in the lower neck, likely secondary to tension/strain. Normal activity in all other soft tissue regions. Incidental CT visualized focal opacification of a mid to posterior rightethmoid air cell, largely unchanged from 04/29/2020. Previously demonstrated opacification of the right maxillary sinus has resolved. CHEST: Small approximately 8-9 mm FDG avid ill-defined opacity in the rightupper lobe/apex at site of convergence vascular structures (axial image 73),activity similar to that of background mediastinal blood pool. This is not clearlyseen on the prior [address] Small pleural-based opacity with linear component at the lateral rightupper lobe/apex (axial image 69) demonstrates FDG activity similar to that of background mediastinal blood pool, and is not seen on the 2018 CT. Diffuse increased activity of the bilateral intercostal diaphragmaticmuscles, likely secondary to muscular tension/strain. Normal activity in all other soft tissue regions. Incidental CTfindings: Bilateral diffuse emphysematous changes, biapical scarring. Aortic and multivessel coronary artery calcifications. ABDOMEN/PELVIS: Small FDG avid focus adjacent to the left ischium, consistent withenthesopathy. Additional enthesopathy at activity at the right greater trochanter.Mildly increased left gluteal muscular activity, again likely secondary to tension/strain. Normal activity in all other soft tissue regions. Incidental CT findings: Diffuse dense vascular calcifications. Smallspleen, likely sequela of prior traumatic injury. Unchanged moderate atrophy ofthe pancreas. SKELETON/EXTREMITIES: Degenerative uptake in the mid to lower cervical and lumbar spine. SmallFDG avid focus corresponding to ununited left L3 transverse process fracture.Focal FDG uptake adjacent to the distal right clavicle with widening of the ACjoint and accompanying cortical irregularity, raising the question of distal clavicular osteolysis. IMPRESSION 1. Subcentimeter ill-defined FDG avid opacity in the right upperlobe/apex, FDG avidity similar to that of background mediastinal blood pool, not seen [id number] CT. This is indeterminate for an inflammatory etiology or possibly anindolent neoplasm. CT follow-up in 6 months is recommended. 2. Small FDG avid pleural-based opacity in the lateral right upperlobe/apex, FDG activity similar to that of background mediastinal blood pool, alsonot present on 2018 CT. This is favored likely to represent scarring. CTfollow-up in 6 months is recommended. 3. Additional incidental findings as above. Thank you for letting us participate in the care of this patient. If youare a health care provider and have any questions regarding this report,please contact the number below. For patients who have questions please contactthe health child care development specialist that requested your imaging first. Mabel ORTIZ IMG PET ORDERABL ES documented in this encounter Visit Diagnoses Diagnosis Pleural nodule Swelling, mass, or lump in chest documented in this encounter Administered Medications Inactive Administered Medications - up to 3 most recent administrations Medication Order MAR Action Action Date Dose Rate Site fludeoxyglucose (F-18) FDG injection 0-20 mCi 0-20 mCi, Intravenous, ONCE PRN, 1 dose, Starting on Sun11/13/22 at 1442, Until Sun11/13/22 at 1439, Per Protocol, Radiology Contrast, Routine Given 11/13/2022 2:39 PM EST 8.8 mCi Right Arm documented in this encounter Care Teams Supervisor Looping Relationship Specialty Start Date End Date Ness Diaz, [facility] [address] [place] [address] PCP - General Family Medicine 05/07/20 documented as of this encounter
--- OUTSIDE RECORDS SUMMARY | 2024-04-16 13:56 | XMS_ITS | Encounter Summary ---
Author Organization [facility] Address [facility] [place] [address] Care Team Providers Care Measuring Machine Tender Name Role Phone Tammy Farley MD Primary Care Provider [phone] Encounter Details Date Type Department Care Team (Late st Contact Info) Description 04/29/2020 Ancillary Procedure [facility] [place] [address] Luca Teixeira MD [facility] [place] [address] Social History Tobacco Use Types Packs/Day Years [...] Name Priority Date/Time Associated Diagnosis Comments FILM LIBRARY- STORAGE ONLY CT FACE Routine 04/29/2020 12:00 AM EDT documented in this encounter Results * Film Library-Storage Only CT Face (04/29/2020 12:00 AM EDT) Narrative RICH - 04/30/2020 12:29 AM EDT This exam is auto-finalizing. It's purpose is for storage only. Luca Teixeira MD IMG FILM LIBRARY ORD ERABLES [place], [place] documented in this encounter Visit Diagnoses Not on filedocumented in this encounter Care Teams Measuring Machine Tender Relationship Specialty Start Date End Date Tammy Farley MD [address] [place] [address] PCP - General Family Medicine 07/23/18 05/06/20 documented as of this encounter
--- OUTSIDE RECORDS SUMMARY | 2024-04-16 13:56 | XMS_ITS | Encounter Summary ---
Author Organization [facility] [place] [address] Care Team Providers Care Reception Manager Name Role Phone None Primary Care Provider Unavailabl e Reason for Visit * Reason Comments Right Shoulder Pain Encounter Details Date Type Department Care Team (Late st Contact Info) Description 04/11/2016 10:30 AM EDT Office [place] [address] Sharan Kingston MD [facility] [place] [address] Chronic right shoulder pain Social History Tobacco Use Types Packs/Day Years Used Date Smoking Tobacco: Every Day Cigarettes Smokeless Tobacco: Never Tobacco Cessation:Ready to Q uit: No; Counseling Given: No Alcohol Use Standard Drinks/Week Comments No 0 [...] Sign Reading Time Taken Comments Blood Pressure 144/88 04/11/2016 10:18 AM EDT Pulse 96 04/11/2016 10:18 AM EDT Temperature - - Respiratory Rate - - Oxygen Saturation - - Inhaled Oxygen Concentration - - Weight 78 kg (172 lb) 04/11/2016 10:[address] ated Height 182.9 cm (6') 04/11/2016 10:18 AM EDT sta sean Body Mass Index 23.33 04/11/2016 10:18 AM EDT documented in this encounter Progress Notes * Sharan Kingston MD - 04/11/2016 10:30 AM EDT Mr. Marin is a 61-year-old white male who is a right-handed gentleman seen in consultation at request of Dr. Carrillo. He reports that he is disabled both mentally and physically. His current problem involves his RIGHT SHOULDER. It seems that in the past he is describing that he may have had what sounds like an AC separation in the past. His current problem began 6 weeks ago when he awakened with severe pain in his RIGHT SHOULDER. He saw Dr. Carrillo, who obtained x-rays and an MRI and kindly sent him to me for evaluation. He now reports that he has persistent pain in his RIGHT SHOULDER. It is exacerbated with activities. He has lost both range of motion and strength. He has had no numbness in his arm or hand. REVIEW OF SYSTEMS: He is status post myocardial infarction. He has no history of peptic ulcer disease or diabetes. He does have hypertension. No rheumatoid arthritis, gout, or cancer. He is bipolar. He does smoke. No recent weight loss, fevers, chills, or other evidence of systemic illness. Medication list reviewed, updated today. ALLERGIES: TEGRETOL. PRIOR SURGERY: T and A. PHYSICAL EXAMINATION: GENERAL: Well-developed, well-nourished white male in no acute distress. CARDIOVASCULAR EXAM: Regular rate and rhythm by palpation. NEUROLOGIC EXAM: His neck, no midline tenderness. He is somewhat kyphotic. He has decreased range of motion. Negative Spurling test. No evidence of myelopathy. MUSCULOSKELETAL EXAM: His RIGHT SHOULDER, he has a prominent AC joint that is tender to palpation exacerbated with abduction crossing the midline. He also has subacromial pain to palpation, total elevation to 80 degrees, even has markedly positive impingement signs. He has a positive empty can. Negative external rotation lag sign. Negative belly press. Positive Yergason's. Positive speed. His external rotation is only 10 degrees. His elbow shows painless range of motion. His right forearm, he has numerous lacerations where he apparently went through a glass window. He has an obvious median neuropathy with profound thenar atrophy and prolonged 2 point sensibility in median nerve distribution. Vascularity is intact. Reviewed x-rays and MRI of his RIGHT SHOULDER. He does in fact have AC arthropathy, grade II AC separation. He also has partial thickness rotator cuff tear involving supraspinatus and significant surrounding tendinopathy. With respect to his biceps, the intraarticular portion appears to be split with significant tendinopathy. IMPRESSION: 1. Symptomatic right AC arthropathy, status post AC separation. 2. RIGHT SHOULDER partial thickness rotator cuff tear as described. 3. Severe right biceps tendinopathy. PLAN: We had a long discussion regarding the current situation. He is actually quite angry about his situation. We discussed the least invasive to most invasive treatment. He does not feel he will be able to participate in physical therapy without some pain relief. We thus discussed proceeding with an injection of his RIGHT SHOULDER and he wished to proceed. PROCEDURE NOTE: Sterile prep and drape of the RIGHT SHOULDER. Injected subacromial space with Xylocaine. I took him through a range of motion. He did indeed have some relief. I then placed 2 mL of Kenalog 10 mg/mL and a flushing dose of Xylocaine. He tolerated the procedure well. Dry sterile dressing was placed. PLAN: Going forward will be for him to take an antiinflammatory medication of his choice. We will refer him for therapy for his rotator cuff as well as his adhesive capsulitis. We will check on him in 6 weeks or sooner p.r.n. In light of the fact that he has significant biceps tendinopathy, perhaps he would also benefit by a glenohumeral steroid injection. He knows to call if he has any questions or changes prior to his next visit. cc: Dr. Braydon Carrillo documented in this encounter Plan of Treatment Not on file documented as of this encounter Visit Diagnoses Diagnosis Chronic right shoulder pain Pain in joint, shoulder region documented in this encounter Care Teams Reception Manager Relationship Specialty Start Date End Date None None PCP - General 08/09/10 07/22/18 documented as of this encounter
--- OUTSIDE RECORDS SUMMARY | 2024-04-16 13:56 | XMS_ITS | Encounter Summary ---
Author Organization Formerly [facility], [facility] Address [facility] [place] [address] Care Team Providers Care Naphthalene Operator Helper Name Role Phone Ness Diaz APRN Primary Care Provider Reason for Visit * Reason Comments Advice Only facial fractures Encounter Details Date Type Department Care Team (Late st Contact Info) Description 05/07/2020 3:00 PM EDT Office Visit [place] [address] Krista Melissa MD [facility] [place] [address] Closed fracture of facial bone due to fall, initial encounter Social History Tobacco Use Types Packs/Day [...] Sign Reading Time Taken Comments Blood Pressure - - Pulse - - Temperature - - Respiratory Rate - - Oxygen Saturation - - Inhaled Oxygen Concentration - - Weight 64.9 kg (143 lb) 05/07/2020 3:15 PM EDT Height 182.9 cm (6') 05/07/2020 3:15 PM EDT per pt Body Mass Index 19.39 05/07/2020 3:15 PM EDT documented in this encounter Progress Notes * Krista Melissa MD - 05/07/2020 3:00 PM EDT Plastic Surgery Consultation Note Krista Melissa M.D PCP: Ness Diaz APRN CUSTOMER EXPERIENCE RETAIL CLERK: No primary care provider on file. CC: Facial trauma s/p fall 04/29 HPI: Jimenez Marin is a 65 y.o. male with COPD (not on home O2), CAD s/p CA (around 2009, s/p 2 stents, on ASA), Bipolar (well-controlled on medications), tobacco use (4-5 cig/day, has smoked since he was 13yo), marijuana use (3/week), and HTN who is here in consultation for facial fractures/lacerations following a fall on 04/29. He was carrying a 30 lb motor down the stairs and tripped and fell and the motor hit his face. He briefly lost consciousness, then went inside and his roommate took him to [facility] where CTH was negative and CT face showed nasal bone fracture, right orbital fracture, right maxillary sinus fracture, and right zygomatic arch fracture. He also had lacerations over right cheek and right upper lip that were sutured there. Since the fall he reports persistent PORTER, pain in right side of jaw with eating and numbness over right cheek. He notes no double/blurred vision, difficulty eating, nasal discharge. He is edentulous and does not use dentures. He wears glasses for somethings and has not noted any vision changes/need for adjustment since fall. Of note, he sustained traumatic injury to his nose years ago and has an old scar across his nose from that time. 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 PMH: COPD, HTN, Bipolar, CAD, CA PSH: splenic embolization for splenic laceration Social History Socioeconomic History ??? Marital status: Single Spouse name: Not on file ??? Number of children: Not on file ??? Years of education: Not on file ??? Highest education level: Not on file Occupational History ??? Not on file Social Needs ??? Financial resource strain: Not on file ??? Food insecurity Worry: Not on file Inability: Not on file ??? Transportation needs Medical: Not on file Non-medical: Not on file Tobacco Use ??? Smoking status: Current Every Day Smoker Packs/day: 0.25 Types: Cigarettes ??? Smokeless tobacco: Never Used Substance and Sexual Activity ??? Alcohol use: Yes Comment: was drinking a 6 pack to a case a day. Currently drinks about 6 beers/month. ??? Drug use: No ??? Sexual activity: Not on file Lifestyle ??? Physical activity Days per week: Not on file Minutes per session: Not on file ??? Stress: Not on file Relationships ??? Social connections Talks on phone: Not on file Gets together: Not on file Attends islam service: Not on file Active member of club or organization: Not on file Attends meetings of clubs or organizations: Not on file Relationship status: Not on file ??? Intimate partner violence Fear of current or ex partner: Not on file Emotionally abused: Not on file Physically abused: Not on file Forced sexual activity: Not on file Other Topics Concern ??? Not on file Social History Narrative ??? Not on file Allergies Allergen Reactions ??? Simvastatin ??? Tegretol [Carbamazepine] Current Outpatient Medications on File Prior to Visit Medication Sig Dispense Refill ??? oxyCODONE (ROXICODONE) 5 mg Tablet Take 1 tablet by mouth every 4 hours as needed for Pain (Forpain 7-10 take 5mg). 10 tablet 0 ??? lisinopril (PRINIVIL;ZESTRIL) 10 mg Tablet Take 10 mg by mouth daily. ??? aspirin 81 mg Tablet, Delayed Release (E.C.) Take 81 mg by mouth daily. ??? buPROPion (WELLBUTRIN XL) 300 mg Tablet Extended Release 24 hr Take 300 mg by mouth every morning. ??? omeprazole (PRILOSEC) 20 mg Capsule, Delayed Release(E.C.) Take 20 mg by mouth daily. ??? traZODone (DESYREL) 100 mg Tablet Take 100 mg by mouth nightly. ??? multivitamin Tdls-Um-FY-Min (THERAPEUTIC-M) 27-0.4 mg Tablet Take 1 tablet [...] by mouth nightly as needed for Pain. No current facility-administered medications on file prior to visit. ROS: HEENT, GI, /Renal, Psych, Card, Pulm, Endo, Heme, Immun, Neuro: negative Examination: There were no vitals taken for this visit. Constitutional: No acute distress, alert, oriented Head: laceration to right cheek and right upper lip (across vermilion border) with sutures in place. Ecchymosis along right cheek/periorbital region. Mild residual edema on right side. No bony tenderness. Unable to appreciate any significant bony step-offs. Eyes: vision grossly intact with both eyes open and in each eye independently; EOMI, PERRL. Ecchymosis as above. Ears: No external lacerations. Nose: old scar across nasal dorsum. No bony tenderness. No nasal discharge. Subtle nasal deviation at baseline per pt. Mouth: edentulous. No lacerations. Neuro: numbness in right V2. Otherwise CN II-XII intact. Diagnostic Testing: CTH/face from OSH reviewed with patient today. Impression: Jimenez Marin 65 y.o. male with COPD, HTN, CAD s/p CA w/ 2 stents/on ASA, and Bipolar who sustained facial fractures/lacerations following a mechanical fall on 04/29. Imaging reviewed with patient today. We discussed that as he does not seem to be experiencing any significant symptoms or problems as a result of his facial fractures and given his medical comorbidities, it would be reasonable to continue non-operative management of his fractures. He would rather avoid surgery. We discussed that as the edema resolves, he may note some facial asymmetry, which he states he does not mind. We also discussed that his numbness should resolve over time, though this may take up to a year or longer, but he may have some permanent numbness, which he understands. We also discussed that he should follow up with his PCP if his headaches persist. He is in agreement with non-operative management and we will have him return in about 6 weeks for repeat evaluation. We discussed that if he notes any vision changes/difficulty breathing/new facial pain/any other concerning signs he should call to follow up sooner. We will remove his sutures today and wound care management reviewed, including sun precautions. All questions answered. Plan: 1. Non-operative management. Follow up with LC or ESTEFANIA in 6 weeks for follow up evaluation or sooner PRN. 2. Scar management/sun precautions. Krista Melissa MD documented in this encounter Plan of Treatment Not on file documented as of this encounter Visit Diagnoses Diagnosis Closed fracture of facial bone due to fall, initial encounter documented in this encounter Care Teams Naphthalene Operator Helper Relationship Specialty Start Date End Date Ness Diaz, DARIANA [address] [place] [address] PCP - General Family Medicine 05/07/20 documented as of this encounter
--- OUTSIDE RECORDS SUMMARY | 2024-04-16 13:56 | XMS_ITS | Encounter Summary ---
Author Organization [facility] [place] [address] Care Team Providers Care Forest Engineer Name Role Phone None Primary Care Provider Unavailabl e Encounter Details Date Type Department Care Team (Late st Contact Info) Description 02/09/2016 - 02/09/2016 11:59 PM EDT Hospital Encounter [place] [address] Tammy Farley MD [facility] [address] [place] [address] Pain Discharge Disposition: Home Social History Tobacco Use Types Packs/Day Years Used Date Smoking Tobacco: Never Assessed Sex and Gender Information Value Date Recorded Sex Assigned at Not on file Gender Identity Not on file Sexual Orientation Not on file documented as of this encounter Plan of Treatment Not on file documented as of this encounter Procedures Procedure Name Priority Date/Time Associated Diagnosis Comments FILM LIBRARY STORAGE ONLY DX SHOULDER Routine 02/09/2016 12:00 AM EDT Pain documented in this encounter Results * Film Library- Storage only DX Shoulder (02/09/2016 12:00 AM EDT) Narrative [facility] - 02/10/2016 9:35 AM EDT This exam is for storage only and is auto-finalizing. Tammy Farley MD [facility] [place] FILM LIBRARY ORD ERABLES [place], [place] documented in this encounter Visit Diagnoses Diagnosis Pain Generalized pain documented in this encounter Care Teams Forest Engineer Relationship Specialty Start Date End Date None None PCP - General 08/09/10 07/22/18 documented as of this encounter
--- OUTSIDE RECORDS SUMMARY | 2024-04-16 13:56 | XMS_ITS | Encounter Summary ---
Author Organization [facility] Address [facility] [place] [address] Care Team Providers Care Jeeper Operator Name Role Phone None Primary Care Provider Unavailabl e Reason for Visit * Diagnostic Test (Routine) - Closed Specialty Diagnoses / Procedures Referred By Contac t Referred To Contact Radiology Diagnoses Laceration of spleen, initial encounter Procedures CT Abdomen & Pelvis wwo Contrast (Generic) CT Abdomen & Pelvis w Contrast Brent Souza MD [facility] [place] [address] [facility] [place] [address] Referral ID Status Reason Start Date Expiration Date V isits Requested Visits Authorized [id number] Closed Specialty Service Requested 06/21/2018 09/19/2018 1 1 Encounter Details Date Type Department Care Team (Latest Contact Info) Description 07/05/2018 8:59 AM EDT - 07/05/2018 11:59 PM EDT Hospital [place] [address] Db Oviedo MD [facility] [place] [address] Laceration of spleen, initial encounter Discharge Disposition: Home Social History Tobacco Use [...] Take 100 mg by mouth nightly. multivitamin Gvgk-Hd-KA-Min (THERAPEUTIC-M) 27-0.4 mg Tablet Take 1 tablet [...] Procedure Name Priority Date/Time Associated Diagnosis Comments CT ABD/PELVIS W OR WO CONTRAST Routine 07/05/2018 12:50 PM EDT Laceration of spleen, initial encounter documented in this encounter Results * CT Abdomen & Pelvis wwo Contrast (Generic) (07/05/2018 12:50 PM EDT) Anatomical Region Laterality Modality Abdomen, Pelvis Computed Tomogra phy Impressions 07/05/2018 1:54 PM EDT 1. ??As noted previously, grade 3/4 splenic injury with perisplenic hematoma. Decreased prominence of the splenic lacerations with slight increase size of a hematoma. I have personally reviewed the image(s) and the residents interpretation and agree with the findings, Demetrius Morris at 07/05/2018 1:54 PM Narrative 07/05/2018 1:54 PM EDT EXAMINATION: ??CT ABDOMEN AND PELVIS WWO CONTRAST (GENERIC) CLINICAL HISTORY: ??s/p spontaneous splenic laceration s/p IR embolization - cause concerning hemangioma vs other pathology TECHNIQUE: Helical CT of the abdomen and pelvis was performed before and after the intravenous administration of 97 ml of Omnipaque 350 COMPARISON: CT chest abdomen pelvis with contrast 06/14/2018 FINDINGS: Lung bases: Centrilobular emphysematous changes are present. No focal airspace consolidation or pleural effusion. Liver: Normal size, no focal lesions Bile ducts: Nondilated Gallbladder: No calcified gallstones. Normal caliber wall Pancreas: Stable. Diffuse atrophic. No pancreatic ductal dilatation. Spleen: As noted previously, a large subcapsular/perisplenic hematoma is noted. The size of the hematoma has increased and exhibits a mixed attenuation density. Multiple lacerations are noted in the spleen which have slightly decreased in prominence and with since the previous study. No active extravasation is noted. Adrenals: Normal Kidneys: Normal. Symmetric renal enhancement. No renal collecting system obstruction bilaterally Urinary Bladder: Limited evaluation Lymph Nodes: No enlarged lymph nodes. Bowel: Normal caliber. No adjacent inflammatory changes or wall thickening. Peritoneum: No ascites or free air, no fluid collection. Vasculature: Minor atherosclerotic disease. Reproductive organs: Normal Osseous structures: No suspicious lesions. Procedure Note Demetrius Morris MD - 07/05/2018 EXAMINATION: CT ABDOMEN AND PELVIS WWO CONTRAST (GENERIC) CLINICAL HISTORY: s/p spontaneous splenic laceration s/p IR embolization- cause concerning hemangioma vs other pathology TECHNIQUE: Helical CT of the abdomen and pelvis was performed before andafter the intravenous administration of 97 ml of Omnipaque 350 COMPARISON: CT chest abdomen pelvis with contrast 06/14/2018 FINDINGS: Lung bases: Centrilobular emphysematous changes are present. No focalairspace consolidation or pleural effusion. Liver: Normal size, no focal lesions Bile ducts: Nondilated Gallbladder: No calcified gallstones. Normal caliber wall Pancreas: Stable. Diffuse atrophic. No pancreatic ductal dilatation. Spleen: As noted previously, a large subcapsular/perisplenic hematoma isnoted. The size of the hematoma has increased and exhibits a mixed attenuationdensity. Multiple lacerations are noted in the spleen which have slightly decreasedin prominence and with since the previous study. No active extravasation isnoted. Adrenals: Normal Kidneys: Normal. Symmetric renal enhancement. No renal collecting system obstruction bilaterally Urinary Bladder: Limited evaluation Lymph Nodes: No enlarged lymph nodes. Bowel: Normal caliber. No adjacent inflammatory changes or wallthickening. Peritoneum: No ascites or free air, no fluid collection. Vasculature: Minor atherosclerotic disease. Reproductive organs: Normal Osseous structures: No suspicious lesions. IMPRESSION 1. As noted previously, grade 3/4 splenic injury with perisplenichematoma. Decreased prominence of the splenic lacerations with slight increase sizeof a hematoma. I have personally reviewed the image(s) and the residents interpretationand agree with the findings, Demetrius Morris at 07/05/2018 1:54 PM 1:54 PM Db Oviedo MD IMG CT ORDERABLES documented in this encounter Visit Diagnoses Diagnosis Laceration of spleen, initial encounter documented in this encounter Administered Medications Inactive Administered Medications - up to 3 most recent administrations Medication Order MAR Action Action Date Dose Rate Site iohexol (OMNIPAQUE) 350 mg/mL solution 0-200 mL 0-200 mL, Intravenous, ONCE PRN, 1 dose, Starting on Sun07/05/18 at 1250, Until Sun07/05/18 at 1250, Per Protocol, Warning Vesicant/Irritant Medication , Radiology Contrast, Routine Given 07/05/2018 12:50 PM EDT 97 mLs documented in this encounter Care Teams Jeeper Operator Relationship Specialty Start Date End Date None None PCP - General 08/09/10 07/22/18 documented as of this encounter
--- OUTSIDE RECORDS SUMMARY | 2024-04-16 13:56 | XMS_ITS | Clinical Summary ---
Author Organization [facility] Address [facility] [place] [address] Care Team Providers Care Evaporator Operator Molasses Name Role Phone Ness Diaz APRN Primary Care Provider Allergies Active Allergy Reactions Criticality Noted Date Comments Simvastatin 02/24/2016 Carbamazepine 02/24/2016 Medications Medication Sig Dispensed Refills Start Date End Date Status citalopram (CELEXA) 20 mg Tablet Take 20 mg by mouth daily. Active tiotropium (SPIRIVA WITH HANDIHALER) 18 mcg Capsule, w/Inhalation Device Inhale 18 mcg into the lungs daily. Active multivitamin Zwfp-Cg-MV-Min (THERAPEUTIC-M) 27-0.4 mg Tablet Take 1 tablet by mouth daily. Active albuterol (PROAIR HFA) 90 mcg/actuation HFA Aerosol Inhaler Inhale 2 puffs into the lungs every 4 hours as needed for Wheezing. Use with spacer Active ipratropium-albutero l (DUONEB) 0.5 mg-3 mg(2.5 mg base)/3 mL Solution for Nebulization Take 3 mLs by nebulization every 4 hours as needed. Active lisinopril (PRINIVIL;ZESTRIL) 10 mg Tablet Take 10 mg by mouth daily. Active aspirin 81 mg Tablet, Delayed Release (E.C.) Take 81 mg by mouth daily. Active omeprazole (PRILOSEC) 20 mg Capsule, Delayed Release(E.C.) Take 20 mg by mouth daily. Active traZODone (DESYREL) 100 mg Tablet Take 100 mg by mouth nightly. Active budesonide/formotero l fumarate (SYMBICORT INHL) Inhale into the lungs. Active loratadine (Claritin) 10 mg Tablet Take 10 mg by mouth daily. Active QUEtiapine (SEROquel) 50 mg Tablet Take 50 mg by mouth 2 times daily. Active lamotrigine (LAMICTAL ORAL) Take 50 mg by mouth 2 times daily. Active atorvastatin (Lipitor) 20 mg Tablet Take 20 mg by mouth daily. Active meloxicam (MOBIC) 15 mg Tablet Take 15 mg by mouth daily. Active fluticasone propionate (FLONASE) 50 mcg/actuation [place], Suspension 1 spray daily. Act brian Active Problems Problem Noted Date Diagnosed Date Facial fracture due to fall 05/07/2020 Splenic laceration 06/14/2018 Pain in right shoulder 02/24/2016 Family History Relation Status Comments Father Maternal Grandfather Maternal Grandmother Mother Alive Paternal Grandfather Paternal Grandmother Social History Tobacco Use Types Packs/Day Years [...] on file Sexual Orientation Not on file Last Filed Vital Signs Vital Sign Reading Time Taken Comments Blood Pressure 118/67 06/18/2018 11:56 AM EDT Pulse 95 06/17/2018 3:43 PM EDT Temperature 37.2 ??C (99 ??F) 06/18/2018 11:56 AM EDT Respiratory Rate 22 06/18/2018 11:56 AM EDT Oxygen Saturation 94% 06/18/2018 11:56 AM EDT Inhaled Oxygen Concentration - - Weight 64.9 kg (143 lb) 05/07/2020 3:15 PM EDT Height 182.9 cm (6') 05/07/2020 3:15 PM EDT per pt Body Mass Index 19.39 05/07/2020 3:15 PM EDT Plan of Treatment Health Maintenance Due Date Last Done Comments CT Colonography 1956 Colonoscopy 1956 Colorectal Cancer Screening 1956 FIT DNA 1956 FIT 1956 Sigmoidoscopy (10 year) with FIT yearly 1956 Sigmoidoscopy 1956 Pneumoccocal Vaccine: 65+ (1 of 2 - PCV) 1962 Hepatitis C Screening 1974 Tdap adult 1975 Tetanus vaccine 1975 Zoster vaccine (1 of 2) 2006 Advance Directive 2011 Covid-19 Vaccine ( - season) 2023 Influenza (Flu) vaccine (1 o f 1 - Influenza standard series) 05/18/2024 Advance Directives * Full Code (Latest Code Status on File) Date Activated Date Inactivated Comments 06/14/2018 8:23 PM 06/18/2018 5:24 PM Question Answer Comments Does patient have capacity to make decision: Yes Care Teams Evaporator Operator Molasses Relationship Specialty Start Date End Date Ness Diaz APRN [address] [place] [address] PCP - General Family Medicine 05/07/20
--- OUTSIDE RECORDS SUMMARY | 2024-04-16 13:56 | XMS_ITS | Encounter Summary ---
Author Organization [facility] Address [facility] [place] [address] Care Team Providers Care Press Tender Smoke Signal Name Role Phone None Primary Care Provider Unavailabl e Encounter Details Date Type Department Care Team (Late st Contact Info) Description 03/03/2016 Orders [place] [phone] Braydon Carrillo MD [facility] [place] [address] Social History Tobacco Use Types Packs/Day Years [...] on filedocumented in this encounter Care Teams Press Tender Smoke Signal Relationship Specialty Start Date End Date None None PCP - General 08/09/10 07/22/18 documented as of this encounter
--- OUTSIDE RECORDS SUMMARY | 2024-04-16 13:56 | XMS_ITS | Encounter Summary ---
Author Organization [facility] [place] [address] Care Team Providers Care Spring Internship Name Role Phone None Primary Care Provider Unavailabl e Encounter Details Date Type Department Care Team (Late st Contact Info) Description 01/12/2016 - 01/12/2016 11:59 PM EDT Hospital Encounter [place] [address] Tammy Farley MD [facility] [address] [place] [address] Pain Discharge Disposition: Home Social History Tobacco [...] Diagnosis Comments FILM LIBRARY STORAGE ONLY DX SPINE Routine 01/12/2016 12:00 AM EDT Pain documented in this encounter Results * Film Library- Storage only DX Spine (01/12/2016 12:00 AM EDT) Narrative [facility] - 02/10/2016 9:30 AM EDT This exam is for storage only and is auto-finalizing. Tammy Farley MD G FILM LIBRARY ORD ERABLES [place], [place] documented in this encounter Visit Diagnoses Diagnosis Pain Generalized pain documented in this encounter Care Teams Spring Internship Relationship Specialty Start Date End Date None None PCP - General 08/09/10 07/22/18 documented as of this encounter
--- OUTSIDE RECORDS SUMMARY | 2024-04-16 13:56 | XMS_ITS | Encounter Summary ---
Author Organization [facility] Address One [facility] [place] [address] Care Team Providers Care Medical Biller Name Role Phone Ranjitsevero Ness [place] Primary Care Provider Encounter Details Date Type Department Care Team (Latest Contact Info) Description 07/31/2022 10:45 PM EST - 07/31/2022 11:59 PM EST Hospital Encounter Laboratory [facility] [address] Discharge Disposition: Home Social History Tobacco Use [...] mouth daily. fluticasone propionate (FLONASE) 50 mcg/actuation [place], Suspension 1 spray daily. lisinopril (PRINIVIL;ZESTRIL) 10 mg Tablet Take 10 mg by mouth daily. aspirin 81 mg Tablet, Delayed Release (E.C.) Take 81 mg by mouth daily. omeprazole (PRILOSEC) 20 mg Capsule, Delayed Release(E.C.) Take 20 mg by mouth daily. traZODone (DESYREL) 100 mg Tablet Take 100 mg by mouth nightly. multivitamin Wqjx-Ix-KR-Min (THERAPEUTIC-M) 27-0.4 mg Tablet Take 1 tablet [...] Procedure Name Priority Date/Time Associated Diagnosis Comments SURGICAL PATHOLOGY REPORT Routine 07/31/2022 4:53 PM EST documented in this encounter Results * Surgical Pathology Report (07/31/2022 4:53 PM EST) FINAL DIAGNOSIS (AP) [id number] ? Location: [facility] The signing pathologist has (i) examined the relevant preparation(s) for the specimen(s) and (ii) rendered or confirmed the diagnosis(es). . ?Surgical Pathology DIAGNOSIS Toenail, clippings: - Onychomycosis Electronically signed by: ?Kyleigh Magallon MD Verified: ??08/04/2022 12:57 ??Dermatopatholog ist Performed at: ??[facility] Dept. of [place]ology, [place] [address] Medical Assistant Instructor: Elana Wakefield MD, FCAP, ??CLIA Certificate: [id number] ADDITIONAL STUDIES PAS/fungus stain highlights fungal hyphal elements in the nail tissue. SPECIMEN(S) SUBMITTED A - toenail clipping Referring Identifier: ??[id number] CLINICAL INFORMATION Onychomycosis SPECIMEN PROCESSING A - Labeled/Fixative: Patient demographics, fresh. Quantity/Size: Multiple, 0.5 x 0.4 x 0.2 cm in aggregate. Tissue Description: Irregular fragments of variegated white to echeverria-brown, thickened unguis tissues. Sections/Processi ng: Submitted en toto in 1 cassette labeled A1. ??shb 08/04/2022 12:57 PM EST [facility] NAIL SPECIMEN / Unknown 07/31/2022 4:53 PM EST 07/31/2022 4:53 PM EST Narrative Resulting Agency Comment Spec In Lab / WKS Sarah Guido STATEMENT SERVICES REPRESENTATIVE PATHOLOGY/CYTOLOGY ORDERABLES Performing Organization Address City/State/[facility] Co de Phone Number [facility] [place] [phone] documented in this encounter Visit Diagnoses Not on filedocumented in this encounter Care Teams Medical Biller Relationship Specialty Start Date End Date Ness Diaz APRN [address] [place] [address] PCP - General Family Medicine 05/07/20 documented as of this encounter
--- OUTSIDE RECORDS SUMMARY | 2024-04-16 13:56 | XMS_ITS | Encounter Summary ---
Author Organization [facility] Address [facility] [place] [address] Care Team Providers Care Glass Etcher Name Role Phone None Primary Care Provider Unavailabl e Encounter Details Date Type Department Care Team (Late st Contact Info) Description 02/04/2016 - 02/04/2016 11:59 PM EDT Hospital Encounter [place] [address] Sharan Gee MD [address] [place] [address] Pain Discharge Disposition: Home Social History Tobacco [...] Associated Diagnosis Comments FILM LIBRARY STORAGE ONLY MR SPINE Routine 02/04/2016 12:00 AM EDT Pain documented in this encounter Results * Film Library- Storage only MR Spine (02/04/2016 12:00 AM EDT) Narrative RAD - 02/10/2016 9:39 AM EDT This exam is for storage only and is auto-finalizing. Sharan Gee MD G FILM LIBRARY ORD ERABLES [place], [place] documented in this encounter Visit Diagnoses Diagnosis Pain Generalized pain documented in this encounter Care Teams Glass Etcher Relationship Specialty Start Date End Date None None PCP - General 08/09/10 07/22/18 documented as of this encounter
--- OUTSIDE RECORDS SUMMARY | 2024-04-16 13:56 | XMS_ITS | Encounter Summary ---
Author Organization [facility] [place] [address] Care Team Providers Care Transfer Station Attendant Name Role Phone Tammy Farley MD Primary Care Provider Encounter Details Date Type Department Care Team (Late st Contact Info) Description 04/29/2020 10:55 PM EDT Ancillary Procedure Radiology Library at [facility] [place] [address] Luca Teixeira MD [facility] [place] [address] Social History Tobacco Use Types Packs/Day Years [...] Diagnosis Comments FILM LIBRARY STORAGE ONLY CT HEAD AND SPINE Routine 04/29/2020 10:50 PM EDT documented in this encounter Results * Film Library- Storage Only CT Head And Spine (04/29/2020 10:50 PM EDT) Narrative [facility] - 04/29/2020 10:50 PM EDT This exam is auto-finalizing. It's purpose is for storage only. Luca Teixeira MD IMG FILM LIBRARY ORD ERABLES [place], [place] documented in this encounter Visit Diagnoses Not on filedocumented in this encounter Care Teams Transfer Station Attendant Relationship Specialty Start Date End Date Tammy Farley MD [address] [place] [address] [address] [facility] [address] [place] [address] PCP - General Family Medicine 07/23/18 05/06/20 documented as of this encounter
--- OUTSIDE RECORDS SUMMARY | 2024-04-16 13:56 | XMS_ITS | Encounter Summary ---
Author Organization [facility] Address One [facility] [place] [address] Care Team Providers Care Control And Recovery Special Tactics Name Role Phone None Primary Care Provider Unavailabl e Encounter Details Date Type Department Care Team (Latest Contact Info) Description 06/14/2018 6:49 PM EDT - 06/14/2018 11:59 PM EDT Hospital Encounter Radiology Library at [facility] [place] [address] Discharge Disposition: Home Social History Tobacco Use [...] Take 100 mg by mouth nightly. multivitamin Sfka-Oh-XZ-Min (THERAPEUTIC-M) 27-0.4 mg Tablet Take 1 tablet [...] 300 mg by mouth every morning. 05/07/2020 oxyCODONE (ROXICODONE) 5 mg Tablet Take 5 mg by mouth every 4 hours as needed for Pain. 06/18/2018 b complex vitamins Capsule Take 1 capsule [...] Procedure Name Priority Date/Time Associated Diagnosis Comments REQUEST FOR 2ND READ CT CHEST ABDOMEN PELVIS STAT 06/14/2018 6:49 PM EDT documented in this encounter Results * Request For 2nd Read CT Chest [...] Sargent MD IMG OUTSIDE INTERPRE TATION ORDERABLES documented in this encounter Visit Diagnoses Not on filedocumented in this encounter Care Teams Control And Recovery Special Tactics Relationship Specialty Start Date End Date None None PCP - General 08/09/10 07/22/18 documented as of this encounter
--- OUTSIDE RECORDS SUMMARY | 2024-04-16 13:56 | XMS_ITS | Encounter Summary ---
Author Organization [facility] [place] [address] Care Team Providers Care Customer Associate Name Role Phone None Primary Care Provider Unavailabl e Reason for Referral * Consultation (Routine) - Closed Specialty Diagnoses / Procedures Referred By Contac t Referred To Contact Orthopaedics Diagnoses Chronic right shoulder pain Chronic right shoulder pain Alpesh Orona MD [facility] [address] [facility] [address] [place] [phone] Referral ID Status Reason Start Date Expiration Date V isits Requested Visits Authorized [id number] Closed Consult, Test & Treat 02/24/2016 02/23/2017 1 1 Reason for Visit * Reason Comments Neck Pain right shoulder arm p ain Encounter Details Date Type Department Care Team (Late st Contact Info) Description 02/24/2016 11:20 AM EDT Office [place] [phone] [facility] [place] [address] Chronic right shoulder pain Social History Tobacco Use Types Packs/Day Years Used Date Smoking Tobacco: Every Day Cigarettes Smokeless Tobacco: Never Sex and Gender Information Value Date Recorded Sex Assigned at Not on file Gender Identity Not on file Sexual Orientation Not on file documented as of this encounter Last Filed Vital Signs Vital Sign Reading Time Taken Comments Blood Pressure 142/74 02/24/2016 11:18 AM EDT Pulse - - Temperature - - Respiratory Rate - - Oxygen Saturation - - Inhaled Oxygen Concentration - - Weight 79.4 kg (175 lb) 02/24/2016 11:18 AM EDT Height 182.9 cm (6') 02/24/2016 11:18 AM EDT Body Mass Index 23.73 02/24/2016 11:18 AM EDT documented in this encounter Progress Notes * Alpesh Orona MD - 02/24/2016 12:24 PM EDT CHIEF COMPLAINT: Right shoulder pain greater than neck pain. HISTORY OF PRESENT ILLNESS: Mr. aMrin is a 60-year-old male I am seeing in consultation for Dr. Gee with regards to his shoulder pain that is accompanied by some neck pain with some intermittent pain radiating down to the right elbow. This pain came on insidiously about 6 weeks ago. He is right hand dominant. He notes the pain is worse if he lies on his right shoulder. He cannot sleep on his right side like he could in the past. He gets some neck pain with neck range of motion. Nothing tends to help it. He notes some chronic numbness in the radial-sided digits in the right hand that goes back to a crush injury of his right hand many years ago. He feels as though his hands are somewhat weak. He feels as though his balance has been off and has been as such for the custodial. He denies constitutional symptoms or changes in bowel or bladder function. He has done physical therapy for his neck without much benefit. He is taking Tylenol and morphine with minimal benefit. He has not had any neck injections. He has not had any treatment of his shoulder. PAST MEDICAL HISTORY: Bipolar disorder, hypertension, alcohol abuse, COPD, heart disease status post stenting. PAST SURGICAL HISTORY: Rotator cuff surgery. Medications and allergies were reviewed and are in the eD-H. FAMILY HISTORY: None. SOCIAL HISTORY: The patient is disabled. He lives at a long-term care facility where he has been undergoing treatment for alcohol abuse. He smokes a quarter pack per day and does not drink. REVIEW OF SYSTEMS: All negative except musculoskeletal as above. PHYSICAL EXAM: General: The patient is comfortable, in no acute distress. Neck: His neck is mildly tender to palpation posteriorly. He can flex 40 degrees, extend 10 degrees, rotate 40 degrees, and side bend 10 degrees. Neurologic exam: He walks with a normal gait. He has difficulty with tandem gait. Motor exam reveals 5/5 strength in all upper extremity motor groups. He has some decreased sensation in his right thumb, index, and long fingers. Reflexes are 2/4 throughout the upper extremities, 2/4 at the knees, and 1/4 at the ankles. Spurling's, Chris's, and Babinski are all negative. He has no clonus. Shoulder exam: He has markedly limited active and passive range of motion of his right shoulder with significant guarding that prevents me from doing much of an exam. He is unable to actively forward elevate the right shoulder much more than 50 degrees. He has weakness in shoulder abduction. He has a positive empty can sign. He is unable to internally rotate the shoulder much at all. He has normal range of motion of the left shoulder. IMAGING: AP and lateral flexion-extension x-rays of the cervical spine from 01/12/16 demonstrate significant upper thoracic kyphosis with a compensatory hyperlordosis of the cervical spine. He has marked degenerative changes, C5-C6 and C6-C7. MRI of the cervical spine from 02/04/16 is of poor quality. He has degenerative changes most pronounced at C5-C6 and C6-C7. He has left greater than right-sided foraminal stenosis at C5-C6 and moderate bilateral foraminal stenosis at C6-C7. There is no significant cord compression. ASSESSMENT/PLAN: Mr. Marin is a 60-year-old male who presents with neck pain and also right shoulder pain. I think most of his issues are related to the right shoulder given the physical exam findings. I suggest that he continue to do some physical therapy for his neck pain. I am going to refer him to see a shoulder specialist to see if there is anything they can do for his shoulder. In the event that he needs further treatment for his neck, he could always consider a cervical epidural steroid injection. I want him to get his shoulder addressed since I think that is his major problem at this point. I will follow up with him on an as-needed basis. documented in this encounter Plan of Treatment Scheduled Referrals Name Type Priority Associated Diagnoses Order Schedule Referral to Orthopaedics Outpatient Referral Routine Chronic right shoulder pain Ordered: 02/24/2016 documented as of this encounter Visit Diagnoses Diagnosis Chronic right shoulder pain Pain in joint, shoulder region documented in this encounter Care Teams Customer Associate Relationship Specialty Start Date End Date None None PCP - General 08/09/10 07/22/18 documented as of this encounter
--- OUTSIDE RECORDS SUMMARY | 2024-04-16 13:56 | XMS_ITS | Encounter Summary ---
Author Organization [facility] [place] [address] Care Team Providers Care Long Wall Mining Machine Helper Name Role Phone Tammy Farley MD Primary Care Provider [phone] Encounter Details Date Type Department Care Team (Late st Contact Info) Description 07/23/2018 1:00 PM EST Office Visit General Surgery at [facility] [place] [address] Alisson Munoz, [employer] [facility] [place] [place] [address] Splenic trauma, subsequent encounter Social History Tobacco Use Types [...] as of this encounter Progress Notes * Alisson Munoz, [employer] - 07/23/2018 1:00 PM EST Jimenez Marin presents today for hospital check. Jimenez is s/p spontaneous splenic rupture on 06/14/18 06/14/18 Splenic embolization : 1. ??Splenic arteriography showed no evidence of active hemorrhage. ?? 2. ??Abnormal splenic perfusion suggesting hemangioma, which might account for splenic hemorrhage with no reported history of trauma. ?? 3. ??Proximal splenic artery occluded with a single Amplatz plug. ?? 4. ??Mynx closure device placed at right common femoral artery access site. Since discharge, Jimenez reports he has been doing well. Jimenez lives at [facility] in [place], [place] it is an assisted living facility. His apartment is on the first floor. He denies any new area of pain, or new complaint. He is eating, moving his bowels and voiding without difficulty. He is pleased with his progress and is in good spirits today. Review of Systems: GENERAL:denies fevers chills, fatigue, sweats, anorexia HEENT:Denies headaches, visual changes,sore throat, difficulty swallowing RESPIRATORY:Denies shortness of breath, cough, hemoptysis, or sputum production CARDIAC:Denies chest pain, dyspnea on exertion, lightheadedness, or syncopal symptoms GASTROINTESTINAL: Denies abdominal pain, nausea, vomiting, dysphagia, constipation, diarrhea, hematochezia, change in bowel habits, or jaundice GENITOURINARY:Denies dysuria, hematuria, flank pain VASCULAR:denies swelling or redness in the extremities HEMATOLOGIC:Denies new bruises, bleeding or petechiae ENDOCRINE:denies polyuria,polydipsia EXAM: GEN:Well appearing, calm of affect NAD SKIN:Intact, no new areas of ecchymosis or laceration, no jaundice HEENT:sclera clear non icteric, mucous membranes are pink and moist CARD:S1S2 rrr no cmr appreciated CHEST:Cage stable, excursion equal, respiration regular even and non labored, CTA ant/post. ABD:soft non tender, non distended, I can appreciate no areas of fullness. BACK:non tender over midline thoracic lumbar and sacral regions, negative CVAT VASC:2+palpable peripheral pulses, cap refill <2 sec, no edema, calves are soft and non tender, neg JVD at 30 degrees NEURO:Jimenez is AAOX3, fluent and non focal, appropriately conversant EXT:5/5 strengths, all four extremities Labs: 07/23/18: WBC:15.2 Hgb:15.2 Hct:46.3 Plat:368 06/24/18 ([facility]): WBC:16.3 Hgb:9.6 Hct:29.8 Plat:516 Imagin07/05/19 CT abd Pelvis: Lung bases: Centrilobular emphysematous changes are present. No focal airspace consolidation or pleural effusion. ?? Liver: Normal size, no focal lesions Bile [...] system obstruction bilaterally Urinary Bladder: Limited evaluation ?? Lymph Nodes: No enlarged lymph nodes. Bowel: Normal caliber. No adjacent inflammatory changes or wall thickening. Peritoneum: No ascites or free air, no fluid collection. Vasculature: Minor atherosclerotic disease. ?? Reproductive organs: Normal Osseous structures: No suspicious lesions. ?? IMPRESSION 1. As noted previously, grade 3/4 splenic injury with perisplenic hematoma. Decreased prominence of the splenic lacerations with slight increase size of a hematoma. IMPRESSION/PLAN: CT and labs reviewed with Dr Jasmine who is familiar with the pt. Given that pt is feeling well, and that his wbc is down slightly from his draw 1 mo ago, nothing todo at this time. I have advised pt that he is NOT to participate in any activity that may put him at risk for fall, blow to abdomen or jarring motion. For 2 more months. I have reviewed sx for which he is to report for evaluation.. Pt tells me he is amenable to above activity restrictions documented in this encounter Plan of Treatment Not on file documented as of this encounter Procedures Procedure Name Priority Date/Time Associated Diagnosis Comments HEMOGRAM STAT 07/23/2018 1:55 PM EST Splenic trauma, subsequent encounter documented in this encounter Results * (ABNORMAL) Hemogram (07/23/2018 1:55 PM EST) WBC 15.2(H) 4.0 - 9.5 x10(3)/[facility] RBC 5.20 4.58 - 5.54 x10(6)/[facility] Hemoglobin 15.2 13.7 - 16.5 gm/dL [facility] Hematocrit 46.3 40.5 - 48.5 % [facility] MCV 89.0 82.9 - 93.1 fL [facility] MCH 29.2 27.5 - 32.1 pg [facility] MCHC 32.8 32.0 - 35.7 gm/dL [facility] Platelets 368(H) 145 - 357 x10(3)/[facility] RDWSD 48.2(H) 36.0 - 45.0 [facility] RDWCV 14.7(H) 11.4 - 13.8 % [facility] MPV 8.8 7.6 - 12.9 [facility] nRBC % Auto 0.0 % [facility] nRBC Abs Auto 0.000 0.000 - 0.000 x10(3)/[facility] Blood specimen (specimen) 07/23/2018 1:55 PM EST 07/23/2018 2:05 PM EST Narrative Resulting Agency Comment Spec In Lab Alisson Munoz [employer] HEMATOLOGY ORDERAB LES Performing Organization Address City/State/[facility] Co de Phone Number [facility] [place] [address] documented in this encounter Visit Diagnoses Diagnosis Splenic trauma, subsequent encounter documented in this encounter Care Teams Long Wall Mining Machine Helper Relationship Specialty Start Date End Date Tammy Farley MD [address] [place] [address] PCP - General Family Medicine 07/23/18 05/06/20 documented as of this encounter
--- OUTSIDE RECORDS SUMMARY | 2024-04-16 13:56 | XMS_ITS | Encounter Summary ---
Author Organization [facility] [place] [address] Care Team Providers Care Detective Supervisor Name Role Phone DavNess causey DARIANA Primary Care Provider Reason for Visit * Diagnostic Test (Routine) - Closed Specialty Diagnoses / Procedures Referred By Christin connelly Referred To Contact Radiology Diagnoses Pleural nodule Procedures NM PET CT Skull Base to Mid-thigh Mabel Gurrola PA [address] [place] [address] [place] [address] Referral ID Status Reason Start Date Expiration Date V isits Requested Visits Authorized [id number] Closed Specialty Service Requested 10/23/2022 04/22/2024 1 1 Encounter Details Date Type Department Care Team (Latest Contact Info) Description 11/13/2022 2:28 PM EST - 11/13/2022 11:[address] [facility] Hospital [place] [address] Mabel Gurrola PA [address] [place], [place] [id number] Discharge Disposition: Home Social History Tobacco Use [...] mouth daily. fluticasone propionate (FLONASE) 50 mcg/actuation [place], Suspension 1 spray daily. lisinopril (PRINIVIL;ZESTRIL) 10 mg Tablet Take 10 mg by mouth daily. aspirin 81 mg Tablet, Delayed Release (E.C.) Take 81 mg by mouth daily. omeprazole (PRILOSEC) 20 mg Capsule, Delayed Release(E.C.) Take 20 mg by mouth daily. traZODone (DESYREL) 100 mg Tablet Take 100 mg by mouth nightly. multivitamin Kfra-Az-BH-Min (THERAPEUTIC-M) 27-0.4 mg Tablet Take 1 tablet [...] Routine 11/13/2022 4:00 PM EST Pleural nodule POCT GLUCOSE Routine 11/13/2022 2:33 PM EST documented in this encounter Results * POCT Glucose (11/13/2022 2:33 PM EST) POC Glucose 105 65 - 199 mg/dL [facility] Comment: Supplemental ranges: <140 mg/dL before meals <180 mg/dL all other times of the day Blood 11/13/2022 2:33 PM EST 11/13/2022 2:33 PM EST Mabel ORTIZ POINT OF CARE TE ST ORDERABLES [facility] [place] [address] documented in this encounter Visit Diagnoses Not on filedocumented in this encounter Care Teams Detective Supervisor Relationship Specialty Start Date End Date Ness Diaz, DARIANA [address] [place] [address] PCP - General Family Medicine 05/07/20 documented as of this encounter
--- OUTSIDE RECORDS SUMMARY | 2024-04-16 13:56 | XMS_ITS | Encounter Summary ---
Author Organization [facility] Address [address] [facility] [place] [address] Care Team Providers Care Office Messenger Helper Name Role Phone Ness Diaz APRN Primary Care Provider [phone] Encounter Details Date Type Department Care Team (Latest Contact Info) Description 11/13/2022 Travel Social History Tobacco Use Types Packs/Day Years [...] on filedocumented in this encounter Care Teams Office Messenger Helper Relationship Specialty Start Date End Date Ness Diaz APRN [address] [place] [address] PCP - General Family Medicine 05/07/20 documented as of this encounter
--- OUTSIDE RECORDS SUMMARY | 2024-04-16 13:57 | XMS_ITS | Encounter Summary ---
Author Organization [facility] Address [address] [place] [address] Care Team Providers Care Supervisor Roller [employer] Name Role Phone Erich Sethi MD Primary Care Provider [phone] Sai Garg MD Primary Care Provi glynn Encounter Details Date Type Department Care Team (Late st Contact Info) Description 01/10/2015 Historical Results Only [facility] Radiology Results [address] [place] [address] Ravi Schwartz MD [address] [place] [phone] Social History Tobacco Use Types Packs/Day Years Used Date Smoking Tobacco: Every Day Cigarettes 1.5 35 Alcohol Use Standard Drinks/Week Comments Yes 0 (1 standard drink = 0.6 oz pure alcohol) Current ethanol abuse, drinks 12 pack of beer daily Sex and Gender Information Value Date Recorded Sex Assigned at Not on file Gender Identity Not on file Sexual Orientation Not on file documented as of this encounter Functional Status Functional Status Response Date of Assess ment Are you deaf or do you have serious difficulty h earing? No 04/03/2014 Are you blind or do you have serious difficulty seeing, even when wearing glasses? No 04/03/2014 Do you have serious difficul ty walking or climbing stairs? (5 years old or older) No 04/03/2014 Do you have difficulty dress ing or bathing? (5 years old or older) Yes 04/03/2014 Because of a physical, menta l, or emotional condition, do you have difficulty doing errands alone such as visiting a doctor's office or shopping? (15 years old or older) No 04/03/2014 Cognitive Status Response Date of Assessm ent Because of a physical, menta l, or emotional condition, do you have serious difficulty concentrating, remembering, or making decisions? (5 years old or older) Yes 04/03/2014 documented as of this encounter Plan of Treatment Not on file documented as of this encounter Procedures Procedure Name Priority Date/Time Associated Diagnosis Comments XR THORACIC SPINE 3 VIEWS 01/10/2015 14:22 EDT documented in this encounter Results * XR THORACIC SPINE 3 VIEWS (01/10/2015 14:22 EDT) Anatomical Region Laterality Modality Spine Other 01/10/2015 14:2 2 EDT Narrative 05/04/2015 14:38 EDT ? EXAM: RADIOLOGY/THORACIC SPINE 2 VIEW ? EX. D/ (1422) ? CLINICAL INFORMATION: ? HIP AND BACK PAIN ? Indication: Hip and back. Now with back pain. ? Comparison: None. ? Technique: AP and lateral views. ? Findings: There are degenerative changes throughout the thoracic ? spine with an accentuated thoracic kyphosis. There is an old anterior ? wedge fracture deformity of the upper thoracic spine. No acute ? fracture or subluxation is seen. ? Impression: ? 1. No acute fracture. ? REPORT SIGNED IN OTHER VENDOR SYSTEM 01/11/2015 ?Reported By: Orville Marvin MD ?Reported By: Orville Marvin MD ? CC: ? Transcribed Date/Time: 05/04/2015 (0880) ? Data Communications Engineer: JENNY ? Printed Date/Time: 02/18/2019 (9946) ? PAGE 1 ? Signed Report ? Procedure Note Orville Marvin MD - 07/22/2019 EXAM: RADIOLOGY/THORACIC SPINE 2 VIEW EX. D/ (1422) CLINICAL INFORMATION: HIP AND BACK PAIN Indication: Hip and back. Now with back pain. Comparison: None. Technique: AP and lateral views. Findings: There are degenerative changes throughout the thoracic spine with an accentuated thoracic kyphosis. There is an oldanterior wedge fracture deformity of the upper thoracic spine. No acute fracture or subluxation is seen. Impression: 1. No acute fracture. REPORT SIGNED IN OTHER VENDOR SYSTEM 01/11/2015 Reported By: Orville Marvin MD Reported By: Orville Marvin MD CC: Transcribed Date/Time: 05/04/2015 (8565) Data Communications Engineer: JENNY Printed Date/Time: 02/18/2019 (5225) PAGE 1 Signed Report Lily Flores MD IMG DIAGNOSTIC IMAGING ORDERABLES documented in this encounter Visit Diagnoses Not on filedocumented in this encounter Care Teams Supervisor Roller Shop Relationship Specialty Start Date End Date Erich Sethi MD [address] [place] [phone] PCP - General 11/12/14 03/11/15 Sai Garg MD [address] [place] [phone] PCP - General 03/12/15 11/04/19 documented as of this encounter
--- OUTSIDE RECORDS SUMMARY | 2024-04-16 13:57 | XMS_ITS | Encounter Summary ---
Author Organization [facility] Address [address] [place] [address] Care Team Providers Care Dance Teacher Name Role Phone Sai Garg MD Primary Care Provi glynn Encounter Details Date Type Department Care Team (Late st Contact Info) Description 04/19/2015 Historical Results Only [facility] Radiology Results [address] [place], [place] [id number] Ravi Schwartz MD [address] [place] [address] Social History Tobacco Use Types Packs/Day Years [...] you have serious difficulty h earing? No 03/12/2015 Are you blind or do you have serious difficulty seeing, even when wearing glasses? No 03/12/2015 Do you have serious difficul ty walking or climbing stairs? (5 years old or older) Yes 03/12/2015 Do you have difficulty dress ing or bathing? (5 years old or older) No 03/12/2015 Because of a physical, menta l, or emotional condition, do you have difficulty doing errands alone such as visiting a doctor's office or shopping? (15 years old or older) Yes 03/12/2015 Cognitive Status Response Date of Assessm ent Because of a physical, menta l, or emotional condition, do you have serious difficulty concentrating, remembering, or making decisions? (5 years old or older) Yes 03/12/2015 documented as of this encounter Plan of Treatment Not on file documented as of this encounter Procedures Procedure Name Priority Date/Time Associated Diagnosis Comments CT HEAD WO CONTRAST 04/19/2015 1 5:56 EDT XR CHEST 2 VIEWS 04/19/2015 13:1 0 EDT documented in this encounter Results * CT HEAD WO CONTRAST (04/19/2015 15:56 EDT) Anatomical Region Laterality Modality Head Other 04/19/2015 15:5 6 EDT Narrative 04/19/2015 16:02 EDT ? EXAM: CAT SCAN/HEAD WITHOUT CONTRAST ?EX. D/ (1552) ? CLINICAL INFORMATION: ? AMS ? INDICATION: Cardiac infarction. Mental status change. Alcohol ? intoxication. ? TECHNIQUE: Axial unenhanced CT imaging of the brain was obtained. ? COMPARISON: 04/08/2015. 04/03/2013. ? FINDINGS: No abnormal intra-articular axial fluid collections are ? seen. No evidence of cerebral herniation is detected. No abnormal ? mass effect is observed. Patchy sinus disease is present. The mastoid ? air cells are clear. The orbits are unremarkable. There is global ? volume loss. Patchy low attenuation white matter changes are seen ? within the centrum semiovale. ? IMPRESSION: ? 1. No acute intracranial abnormality detected. ? 2. Global volume loss and patchy white matter disease. This pattern ? of white matter disease is nonspecific though most commonly reflects ? small vessel ischemic disease of aging. ? 3. Patchy sinus disease. ? REPORT SIGNED IN OTHER VENDOR SYSTEM 04/19/2015 ?Reported By: Gamaliel Vitale MD ? CC: ? Transcribed Date/Time: 04/19/2015 (1602) ? General Operator: ? Printed Date/Time: 02/25/2019 (1113) ? PAGE 1 ? Signed Report ? Procedure Note Gamaliel Vitale MD - 07/22/2019 EXAM: CAT SCAN/HEAD WITHOUT CONTRAST EX. D/ (1552) CLINICAL INFORMATION: AMS INDICATION: Cardiac infarction. Mental status change. Alcohol intoxication. TECHNIQUE: Axial unenhanced CT imaging of the brain was obtained. COMPARISON: 04/08/2015. 04/03/2013. FINDINGS: No abnormal intra-articular axial fluid collections are seen. No evidence of cerebral herniation is detected. No abnormal mass effect is observed. Patchy sinus disease is present. Themastoid air cells are clear. The orbits are unremarkable. There is global volume loss. Patchy low attenuation white matter changes are seen within the centrum semiovale. IMPRESSION: 1. No acute intracranial abnormality detected. 2. Global volume loss and patchy white matter disease. This pattern of white matter disease is nonspecific though most commonlyreflects small vessel ischemic disease of aging. 3. Patchy sinus disease. REPORT SIGNED IN OTHER VENDOR SYSTEM 04/19/2015 Reported By: Gamaliel Vitale MD CC: Transcribed Date/Time: 04/19/2015 (3102) General Operator: Printed Date/Time: 02/25/2019 (1113) PAGE 1 Signed Report Ravi Schwartz MD IMG CT ORDERABLES * XR CHEST 2 VIEWS (04/19/2015 13:10 EDT) Anatomical Region Laterality Modality Other 04/19/2015 13:1 0 EDT Narrative 04/19/2015 13:14 EDT ? EXAM: RADIOLOGY/CHEST (PA ?? LAT) ?EX. D/ (1247) ? CLINICAL INFORMATION: ? HOMELESS ALCOHOIC ? Indication: Alcoholic. ? Comparison: Chest x-ray 04/08/2015. ? Technique: Sitting upright AP and lateral views. ? Findings: There are changes of COPD. The cardiomediastinal silhouette ? and pulmonary vessels are otherwise within normal limits. The lungs ? are clear. There are degenerative changes within the thoracic spine ? with an accentuated thoracic kyphosis. ? Impression: ? 1. No acute process. ? 2. COPD. ? REPORT SIGNED IN OTHER VENDOR SYSTEM 04/19/2015 ?Reported By: Orville Marvin MD ? CC: ? Transcribed Date/Time: 04/19/2015 (1314) ? General Operator: ? Printed Date/Time: 02/25/2019 (1113) ? PAGE 1 ? Signed Report ? Procedure Note Orville Marvin MD - 07/22/2019 EXAM: RADIOLOGY/CHEST (PA LAT) EX. D/ (1247) CLINICAL INFORMATION: HOMELESS ALCOHOIC Indication: Alcoholic. Comparison: Chest x-ray 04/08/2015. Technique: Sitting upright AP and lateral views. Findings: There are changes of COPD. The cardiomediastinalsilhouette and pulmonary vessels are otherwise within normal limits. The lungs are clear. There are degenerative changes within the thoracic spine with an accentuated thoracic kyphosis. Impression: 1. No acute process. 2. COPD. REPORT SIGNED IN OTHER VENDOR SYSTEM 04/19/2015 Reported By: Orville Marvin MD CC: Transcribed Date/Time: 04/19/2015 (2758) General Operator: Printed Date/Time: 02/25/2019 (4872) PAGE 1 Signed Report Ravi Schwartz MD IMG DIAGNOSTIC IMAGI NG ORDERABLES documented in this encounter Visit Diagnoses Not on filedocumented in this encounter Care Teams Dance Teacher Relationship Specialty Start Date End Date Sai Garg MD [address] [place] [phone] PCP - General 03/12/15 11/04/19 documented as of this encounter
--- OUTSIDE RECORDS SUMMARY | 2024-04-16 13:57 | XMS_ITS | Encounter Summary ---
Author Organization [facility] Address [address] [place] [address] Care Team Providers Care Refuse Laborer Name Role Phone Erich Sethi MD Primary Care Provider [phone] Sai Garg MD Primary Care Provi glynn Encounter Details Date Type Department Care Team (Late st Contact Info) Description 11/30/2014 Historical Results Only [facility] Radiology Results [address] [place], [place] [id number] Kamran Renee MD [address] [place] [phone] Social History Tobacco Use Types Packs/Day Years [...] Name Priority Date/Time Associated Diagnosis Comments NM CARD SPECT NUCLEAR STRESS 11/30/2014 12:35 EDT documented in this encounter Results * NM CARD SPECT NUCLEAR STRESS (11/30/2014 12:35 EDT) Anatomical Region Laterality Modality Chest Nuclear Stress 11/30/2014 12:3 5 EDT Narrative 12/01/2014 14:02 EDT ? EXAM: NUCLEAR MEDICINE/NUCLEAR STRESS SHAQUILLE EX. D/ (1235) ? CLINICAL INFORMATION: ? Musc-skel L rib margin pain yet had NSTEMI ? *[facility]* ? *[facility]* ? [address] ? [place] [address] ? Myocardial Perfusion Imaging - SPECT ? Regadenoson ? Date of study: ??11/30/2014 ? *PATIENT PRESENTATION* ? Height: ? 177.8cm (70in ) ? Blood Pressure: ? Weight: ? 63.6kg (140lb ) ? BSA: ?1.77m 2 ? Ordering physician: Kamran Renee ? Impressions: ??Abnormal study after pharmacologic stress. Partially ? reversible inferior defect. ? Summary: ? 1. Myocardial perfusion imaging: There is a moderate sized, moderately ?intense, partially reversible defect involving the basal and mid ?inferoseptal and mid inferior and basal inferior wall(s). This ?suggests small myocardial infarction and small ischemia in the ?distribution of the right coronary artery. ? 2. The calculated left ventricular ejection fraction after stress: ?45%. LV global systolic function is mild to moderately reduced. ?There is moderate hypokinesis involving the mid inferior and basal ?inferior wall(s) of the left ventricle. ? 3. Stress ECG conclusions: The stress ECG is negative. ? Indication: ?? 786.50 Chest Pain, Unspecified. ? History: ??ADMITTED TO [facility] WITH CHEST PAIN AND WEAKNESS. PAIN IS ? CONSTANT, PRESENTLY 06/26. ? ON NOVEMBER 21, 2014- NSTEMI- TROP 1.8, PATIENT REFUSED TO TRANSFER TO ? [facility]. TROPS FOR THIS ADMISSION ARE 0.076 X 3. ECG UNREMARKABLE. EC HO ? 11/30/14- LVEF 45-50%. PATIENT CONTINUES TO SMOKE AND DRINK. ? 03/2014- NE WITH STENTS X 2. ? PMH: ?? COPD. ? Risk factors: ??Current tobacco use. Hypertension. Dyslipidemia. ? MEDS: MVI, PLAVIX 75 MG, IMDUR 30 MG, ASA 81 MG, METOPROLOL 50 MG, ? FOLIC ACID, NITRO. ? PAGE 1 ? Signed Report ? (CONTINUED) ? ALLERGIES: TEGRETOL, IBUPROFEN. ? Imaging Technique: ? Protocol: ??Regadenoson. ? Acquisition: ?? Gated SPECT; 1 day - rest/stress. ?The patient was ? imaged in the supine position. Attenuation correction used. ? Isotope administration: ? - Rest. Tc[99m]-sestamibi. Injection to stress time: 00:45. ? - Stress. Tc[99m]-sestamibi. 1-2 min before end of exercise ? Baseline ECG: ??NSR- 95 BPM. ? Stress protocol: ? +--------+---+ + + ? !Stage ?? !HR !BP (mmHg) ?? !Comments ? ! ? +--------+---+ + + ? !Baseline!95 !160/78 (105)! ! ? +--------+---+ + + ? !1 min ?? !109! !Inject Regadenoson.! ? +--------+---+ + + ? !2 min ?? !112!139/72 (94) ! ! ? +--------+---+ + + ? !3 min ?? !111! ! ! ? +--------+---+ + + ? !4 min ?? !110!138/69 (92) ! ! ? +--------+---+ + + ? !5 min ?? !109! ! ! ? +--------+---+ + + ? !6 min ?? !108!139/70 (93) ! ! ? +--------+---+ + + ? !7 min ?? !108! ! ! ? +--------+---+ + + ? * ? Stress results: ??The rate-pressure product for the peak heart rate and ? blood pressure was 85741mz Hg/min. Stress ECG: RESTING LEXISCAN STUDY ? 1010 CHEST PAIN PRIOR TO LEXISCAN 9/10 AFTER LEXISCAN NO ECTOPY NO ? ISCHEMIC ECG CHANGES ??The stress ECG is negative. Myocardial ? perfusion: ?? Imaging information: gated. The image quality was fair. ? Image quality reduced due to moderate subdiaphragmatic activity. There ? is a moderate sized, moderately intense, partially reversible defect ? involving the basal and mid inferoseptal and mid inferior and basal ? inferior wall(s). This suggests small myocardial infarction and small ? ischemia in the distribution of the right coronary artery. Ventricular ? Function (Wall Motion): ?? The calculated left ventricular ejection ? fraction after stress: 45%. LV global systolic function is mild to ? moderately reduced. ?? There is moderate hypokinesis involving the mid ? inferior and basal inferior wall(s) of the left ventricle. ? Study data: ??Carrol Peraza MD supervised and was readily available ? during the procedure. This study was interpreted by [facility] ? [facility]. ? Study status: Routine. Consent: ??The risks, benefits, and alternatives ? to the procedure were explained to the patient and informed consent ? was obtained. ??Procedure: ??Initial setup. A baseline ECG was recorded. ? Surface ECG leads and manual cuff blood pressure measurements were ? monitored. Heart sounds: Normal. Lung sounds: Abnormal. Regadenoson ? PAGE 2 ? Signed Report ? (CONTINUED) ? stress test. Stress testing was performed, with regadenoson by ? intravenous bolus, for a total dose of 0.4mgover 10.00sec, followed by ? a 5ml saline flush. The infusion was terminated due to per protocol. ? The patient was unable to exercise due to leg, joint, or back pain. ? Study completion: All catheters inserted during the procedure were ? removed. The patient tolerated the procedure well and was discharged ? from the lab. ??Discharge: ??The patient left the laboratory in stable ? condition. ? Birthdate: ??Patient birthdate: 1955. ??Sex: ? Gender: male. ??Study date: ??Study date: 30-Nov-2014. ? Signature Documentation: ? - The imaging portion of this study was interpreted by Ananya ? Grain Shipper Carrol Peraza MD. ? - The Stress ECG portion of this study was interpreted by Carrol ? MD Stu. ? Electronically signed by ? Carrol Peraza ? 11/30/2014 14:27 ?Reported By: CARROL PERAZA M.D. ? CC: ? Transcribed Date/Time: 12/01/2014 (1402) ? Greige Mender: JENNY ? Printed Date/Time: 02/18/2019 (1035) ? PAGE 3 ? Signed Report ? Procedure Note Carrol Peraza MD - 07/22/2019 EXAM: NUCLEAR MEDICINE/NUCLEAR STRESS SHAQUILLE EX. D/ (7878) CLINICAL INFORMATION: Anoop-becca Tate rib margin pain yet had NSTEMI *[facility]* *[facility]* [address] [place] [address] Myocardial Perfusion Imaging - SPECT Regadenoson Date of study: 11/30/2014 *PATIENT PRESENTATION* Height: 177.8cm (70in ) Blood Pressure: Weight: 63.6kg (140lb ) BSA: 1.77m 2 Ordering physician: Kamran Renee Impressions: Abnormal study after pharmacologic stress. Partially reversible inferior defect. Summary: 1. Myocardial perfusion imaging: There is a moderate sized,moderately intense, partially reversible defect involving the basal and mid inferoseptal and mid inferior and basal inferior wall(s). This suggests small myocardial infarction and small ischemia in the distribution of the right coronary artery. 2. The calculated left ventricular ejection fraction after stress: 45%. LV global systolic function is mild to moderately reduced. There is moderate hypokinesis involving the mid inferior andbasal inferior wall(s) of the left ventricle. 3. Stress ECG conclusions: The stress ECG is negative. Indication: 786.50 Chest Pain, Unspecified. History: ADMITTED TO [facility] WITH CHEST PAIN AND WEAKNESS. PAIN IS CONSTANT, PRESENTLY 06/26. ON NOVEMBER 21, 2014- NSTEMI- TROP 1.8, PATIENT REFUSED TO TRANSFER TO [facility]. TROPS FOR THIS ADMISSION ARE 0.076 X 3. ECG UNREMARKABLE. ECHO 11/30/14- LVEF 45-50%. PATIENT CONTINUES TO SMOKE AND DRINK. 03/2014- NE WITH STENTS X 2. PMH: COPD. Risk factors: Current tobacco use. Hypertension. Dyslipidemia. MEDS: MVI, PLAVIX 75 MG, IMDUR 30 MG, ASA 81 MG, METOPROLOL 50 MG, FOLIC ACID, NITRO. PAGE 1 Signed Report (CONTINUED) ALLERGIES: TEGRETOL, IBUPROFEN. Imaging Technique: Protocol: Regadenoson. Acquisition: Gated SPECT; 1 day - rest/stress. The patient was imaged in the supine position. Attenuation correction used. Isotope administration: - Rest. Tc[99m]-sestamibi. Injection to stress time: 00:45. - Stress. Tc[99m]-sestamibi. 1-2 min before end of exercise Baseline ECG: NSR- 95 BPM. Stress protocol: +--------+---+ + + !Stage !HR !BP (mmHg) !Comments ! +--------+---+ + + !Baseline!95 !160/78 (105)! ! +--------+---+ + + !1 min !109! !Inject Regadenoson.! +--------+---+ + + !2 min !112!139/72 (94) ! ! +--------+---+ + + !3 min !111! ! ! +--------+---+ + + !4 min !110!138/69 (92) ! ! +--------+---+ + + !5 min !109! ! ! +--------+---+ + + !6 min !108!139/70 (93) ! ! +--------+---+ + + !7 min !108! ! ! +--------+---+ + + * Stress results: The rate-pressure product for the peak heart rateand blood pressure was 78745ai Hg/min. Stress ECG: RESTING LEXISCANSTUDY 10/10 CHEST PAIN PRIOR TO LEXISCAN 9/10 AFTER LEXISCAN NO ECTOPY NO ISCHEMIC ECG CHANGES The stress ECG is negative. Myocardial perfusion: Imaging information: gated. The image quality wasfair. Image quality reduced due to moderate subdiaphragmatic activity.There is a moderate sized, moderately intense, partially reversibledefect involving the basal and mid inferoseptal and mid inferior and basal inferior wall(s). This suggests small myocardial infarction andsmall ischemia in the distribution of the right coronary artery.Ventricular Function (Wall Motion): The calculated left ventricular ejection fraction after stress: 45%. LV global systolic function is mild to moderately reduced. There is moderate hypokinesis involving themid inferior and basal inferior wall(s) of the left ventricle. Study data: Carrol Peraza MD supervised and was readilyavailable during the procedure. This study was interpreted by [facility]. Study status: Routine. Consent: The risks, benefits, andalternatives to the procedure were explained to the patient and informed consent was obtained. Procedure: Initial setup. A baseline ECG wasrecorded. Surface ECG leads and manual cuff blood pressure measurements were monitored. Heart sounds: Normal. Lung sounds: Abnormal. Regadenoson PAGE 2 Signed Report (CONTINUED) stress test. Stress testing was performed, with regadenoson by intravenous bolus, for a total dose of 0.4mgover 10.00sec, followedby a 5ml saline flush. The infusion was terminated due to perprotocol. The patient was unable to exercise due to leg, joint, or back pain. Study completion: All catheters inserted during the procedure were removed. The patient tolerated the procedure well and wasdischarged from the lab. Discharge: The patient left the laboratory instable condition. Birthdate: Patient birthdate: 1955. Sex: Gender: male. Study date: Study date: 30-Nov-2014. Signature Documentation: - The imaging portion of this study was interpreted by Nuclear Grain Shipper Carrol Peraza MD. - The Stress ECG portion of this study was interpreted by Carrol Peraza MD. Electronically signed by Carrol Peraza 11/30/2014 14:27 Reported By: CARROL PERAZA M.D. CC: Transcribed Date/Time: 12/01/2014 (1402) Greige Mender: JENNY Printed Date/Time: 02/18/2019 (1035) PAGE 3 Signed Report Kamran Renee MD CARDIAC NM ORDERABL ES documented in this encounter Visit Diagnoses Not on filedocumented in this encounter Care Teams Refuse Laborer Relationship Specialty Start Date End Date Erich Sethi MD [address] [place] [address] [phone] PCP - General 11/12/14 03/11/15 Sai Garg MD [address] [place] [phone] PCP - General 03/12/15 11/04/19 documented as of this encounter
--- OUTSIDE RECORDS SUMMARY | 2024-04-16 13:57 | XMS_ITS | Encounter Summary ---
Author Organization [facility] Address [address] [place] [address] Care Team Providers Care Husbandry Technician Name Role Phone Sai Garg MD Primary Care Provi glynn Reason for Visit * Reason Onset Date Comments Appointment Related 02/19/2014 NO SHOW Encounter Details Date Type Department Care Team (Late st Contact Info) Description 02/19/2014 Telephone [facility] - [place] [address] [facility] [place] [address] Gala Campbell, CHARY [address] [facility] [address] [place] [phone] Appointment Related (NO SHOW) Social History Tobacco Use Types Packs/Day Years [...] you have serious difficulty h earing? No 01/18/2014 Are you blind or do you have serious difficulty seeing, even when wearing glasses? No 01/18/2014 Do you have serious difficul ty walking or climbing stairs? (5 years old or older) No 01/18/2014 Do you have difficulty dress ing or bathing? (5 years old or older) No 01/18/2014 Because of a physical, menta l, or emotional condition, do you have difficulty doing errands alone such as visiting a doctor's office or shopping? (15 years old or older) No 01/18/2014 Cognitive Status Response Date of Assessm ent Because of a physical, menta l, or emotional condition, do you have serious difficulty concentrating, remembering, or making decisions? (5 years old or older) No 01/18/2014 documented as of this encounter Miscellaneous Notes * Telephone Encounter - Ryann Evans - 02/19/2014 1432 EDT No Show for apt with Gala Campbell on 02/19/14. No answering machine. Only one telephone number, next contact mother which is the same telephone number documented in this encounter Plan of Treatment Not on file documented as of this encounter Visit Diagnoses Not on filedocumented in this encounter Care Teams Husbandry Technician Relationship Specialty Start Date End Date Sai Garg MD [address] [place] [phone] PCP - General 01/03/14 11/11/14 documented as of this encounter
--- OUTSIDE RECORDS SUMMARY | 2024-04-16 13:57 | XMS_ITS | Encounter Summary ---
Author Organization [facility] Address [address] [place] [address] Care Team Providers Care Psychiatry Adult Physician Name Role Phone Sai Garg MD Primary Care Provi glynn Reason for Referral * Follow Up (Routine) - Closed Specialty Diagnoses / Procedures Referred By Contabida t Referred To Contact Diagnoses Chest pain Nolan Carmona MD [address] [place] [phone] Referral ID Status Reason Start Date Expiration Date V isits Requested Visits Authorized [id number] Closed Continuity of Care 04/03/2014 1 1 Question Answer Reason for Request: Pt has Chest pain that is muscloskeletal in origin (no objective evidence of [place]) and would benefit from following w PCP following d/c from [facility]. Comments Pt has follow up appointment w Dr. Jose E Mason on Sunday, April 13 [facility] [address], [place] [address] Encounter Details Date Type Department Care Team (Late st Contact Info) Description 04/03/2014 2:36 EDT - 04/03/2014 15:33 EDT Hospital Encounter [facility] Cardiac/Telemetry Unit [address] [place], [place] [id number] Ravi Costello MD [address] [phone] Golden Quintero MD [address] [phone] Chest pain (Primary Dx); ETOH abuse; CAD (coronary artery disease) Discharge Disposition: Home or Self Care Social History Tobacco Use Types Packs/Day Years Used Date Smoking Tobacco: Every Day Cigarettes 1.5 35 Tobacco Cessation:Ready to Q uit: Yes Alcohol Use Standard Drinks/Week Comments Yes 0 [...] Sign Reading Time Taken Comments Blood Pressure 120/64 04/03/2014 1016 EDT Pulse 67 04/03/2014 1016 EDT Temperature 36.4 ??C (97.5 ??F) 04/03/2014 0700 EDT Respiratory Rate 18 04/03/2014 1045 EDT Oxygen Saturation 100% 04/03/2014 1300 EDT Inhaled Oxygen Concentration - - Weight 57.6 kg (126 lb 14.4 oz) 04/03/2014 0258 EDT Height 182.9 cm (6') 04/03/2014 0258 EDT Body Mass Index 17.21 04/03/2014 0258 EDT documented in this encounter Functional Status Functional Status Response [...] Yes 04/03/2014 documented as of this encounter Discharge Summaries * Ravi Costello MD - 04/03/2014 1209 EDT Discharge Summary Attending Physician: Ravi Costello MD Date of Admission: 04/03/2014 Date of Discharge: Disposition: Pt was discharged to home in good condition Reason for Admission: Chest Pain Hospital Problems: Principal Problem: Chest pain Active Problems: ETOH abuse Principal Procedure: None Secondary Procedures: None Hospital Course: Jimenez Barkley is a 58 yo man with a past medical history significant for known CAD s/p BMS placement X3 (12/29), alcoholism, COPD, HTN, HLD, mood disorder who [place] [facility] [place] due to complaint of Chest Pain which radiated to left arm and leg and was worst w exertion and position change. On arrival, he was found to have a mildly elevated Troponin of 0.2, and EtOH level of greater than 400. He was given ASA, Ticagrelor, and heparin and transferred to [facility] for further evaluation. At [facility] troponin was negative and on EKG non-specific changes of ST segments (not elevations). Serial EKGs showed no changes. Screening labs were also notable for liver enzymes >X 3 normal range, for peripheral eosinophilia (17%) w normal WBC count, and thrombocytopenia of 84K. Complaint of chest pain persisted throughout hospital stay. Pt was given morphine for chest pain. This was d/c'ed after he became hypotensive. Patient did not have subjective complaint of experiencing EtOH withdrawal and vital signs did not suggest withdrawal. It was determined that w patient's history of non-compliance w medication and anti-coagulation regimen, preforming a [facility] would not benefit the pt and would be more likely to cause harm. As such, no interventions were preformed and pt was treated medically. Chest pain was thought to be musculoskeletal in origin and pt was advised to follow with his PCP, Dr Sai Garg. Please note that Statin therapy, which had been part of CAD treatment regimen, was discontinued during hospital stay as there was a contraindication to giving this medication w the pt's trans-aminitis of > 3 times normal range. For anti-coagulation therapy pt was discharged on ASA 81. Please note that due to pt thrombocytopenia of 84 K, the risk of bleeding was too great for dual agent therapy including Plavix. In addition, beta jj will be part of CAD therapy. All other home meds were resumed. Clinical Issues Needing Follow-up: Chest pain of musculoskeletal origin Results Pending at Discharge: Test results still pending from this admission Procedure Component Value Units Date/Time TSH [[id number]] Collected: 04/03/14309 Lab Status: In process Updated: 04/03/14322 Discharge Medications: START taking these medications Sig acetaminophen 325 mg tablet Commonly known as: TYLENOL 650 mg, oral, EVERY 6 HOURS PRN metoprolol 25 mg tablet Commonly known as: LOPRESSOR 25 mg, oral, 2 TIMES DAILY CONTINUE taking these medications Sig albuterol 90 mcg/actuation inhaler Commonly known as: VENTOLIN HFA 2 Puffs, inhalation, 4 TIMES DAILY PRN amitriptyline 50 mg tablet Commonly known as: ELAVIL 50 mg, oral, AT BEDTIME, aspirin chewable 81 mg tablet 81 mg, oral, DAILY baclofen 10 mg tablet Commonly known as: LIORESAL 20 mg, oral, 2 TIMES DAILY, citalopram 20 mg tablet Commonly known as: CELEXA 60 mg, oral, DAILY, folic acid 1 mg tablet Commonly known as: FOLVITE 1 mg, oral, DAILY * HYDROcodone-acetaminophen 2.5-325 mg Commonly known as: NORCO 1 Tab, oral, EVERY 4 HOURS * HYDROcodone-acetaminophen 2.5-325 mg Commonly known as: NORCO 1 Tab, oral, EVERY 4 HOURS PRN levothyroxine 75 mcg tablet Commonly known as: SYNTHROID 75 mcg, oral, DAILY BEFORE BREAKFAST lisinopril 20 mg tablet Commonly known as: PRINIVIL, ZESTRIL 10 mg, oral, ONCE mometasone-formoterol 100-5 mcg/actuation Commonly known as: DULERA 2 Puffs, inhalation, 2 TIMES DAILY Multivitamins with Minerals tablet 1 Tab, oral, DAILY nitroGLYCERIN 0.4 mg SL tablet Commonly known as: NITROSTAT 0.4 mg, sublingual, EVERY 5 MIN PRN ranitidine 150 mg tablet Commonly known as: ZANTAC 150 mg, oral, 2 TIMES DAILY, thiamine 100 mg tablet Commonly known as: VITAMIN B1 100 mg, oral, DAILY tiotropium 18 mcg inhalation capsule Commonly known as: SPIRIVA 18 mcg, inhalation, DAILY * Notice: This list has 2 medication(s) that are the same as other medications prescribed for you. Read the directions carefully, and ask your doctor or other care provider to review them with you. STOP taking these medications clopidogrel 75 mg tablet Commonly known as: PLAVIX Allergies: Tegretol Appointments Scheduled with Jacob Eubanks in the Next 3 Months: Follow-Up Appointments and Procedures Recommended to Patient: Pt has follow up appointment w Dr. Jose E Mason on April 13 [facility] [address], [place] [address] Follow-Up Labs and Tests: Attestation statement::I have seen and examined this patient. I agree with the plan as outlined above. Ravi Costello MD documented in this encounter Medications at Time of Discharge Medication Sig Dispensed Refills Start Date End Date acetaminophen (TYLENOL) 325 mg tablet Take 2 Tabs by mouth every 6 hours as needed for Pain. 04/03/2014 amitriptyline (ELAVIL) 50 mg tablet Take 50 mg by mouth at bedtime. aspirin chewable 81 mg tablet Take 1 Tab by mouth daily. 01/03/2014 citalopram (CELEXA) 20 mg tablet Take 60 mg by mouth daily. mometasone-formoterol (DULERA) 100-5 mcg/actuation Inhale 2 Puffs as directed 2 times daily. 1 Inhaler 0 01/23/2014 Multivitamins with Minerals tablet Take 1 Tab by mouth daily. 30 Tab 0 01/23/2014 albuterol (VENTOLIN HFA) 90 mcg/actuation inhaler Inhale 2 Puffs as directed 4 times daily as needed for Wheezing. 1 Inhaler 2 01/23/2014 03/12/2015 baclofen (LIORESAL) 10 mg tablet Take 20 mg by mouth 2 times daily. 03/12/2015 folic acid (FOLVITE) 1 mg tablet Take 1 Tab by mouth daily. 30 Tab 0 01/23/2014 03/12/2015 HYDROcodone-acetaminoph en (NORCO) 2.5-325 mg Take 1 Tab by mouth every 4 hours. 3 Tab 0 01/23/2014 03/12/2015 HYDROcodone-acetaminoph en (NORCO) 2.5-325 mg Take 1 Tab by mouth every 4 hours as needed for Pain. 3 Tab 0 01/23/2014 03/12/2015 levothyroxine (SYNTHROID) 75 mcg tablet Take 1 Tab by mouth daily before breakfast. 30 Tab 0 01/23/2014 03/12/2015 lisinopril (PRINIVIL, ZESTRIL) 20 mg tablet Take 0.5 Tabs by mouth once for 90 days. 90 Tab 0 01/23/2014 04/23/2014 metoprolol (LOPRESSOR) 25 mg tablet Take 1 Tab by mouth 2 times daily. 180 Tab 11 04/03/2014 03/12/2015 nitroGLYCERIN (NITROSTAT) 0.[address] 1 Tab under the tongue every 5 minutes as needed for Chest Pain. 15 Tab 0 11/14/2009 03/12/2015 ranitidine (ZANTAC) 150 mg tablet Take 150 mg by mouth 2 times daily. 03/12/2015 thiamine (VITAMIN B1) 100 mg tablet Take 1 Tab by mouth daily. 30 Tab 0 01/23/2014 03/12/2015 tiotropium (SPIRIVA) 18 mcg inhalation capsule Inhale 1 Cap as directed daily. 1 Box 0 01/23/2014 03/12/2015 documented as of this encounter Ordered Prescriptions Prescription Sig Dispensed Refills Start Date End Da te acetaminophen (TYLENOL) 325 mg tablet Take 2 Tabs by mouth every 6 hours as needed for Pain. 04/03/2014 metoprolol (LOPRESSOR) 25 mg tablet Take 1 Tab by mouth 2 times daily. 180 Tab 11 04/03/2014 03/12/2015 documented in this encounter Discharge Disposition Disposition Code Departure Means Destination Home or Self Care documented in this encounter Progress Notes * Lisbeth Lopez RN - 04/03/2014 2910 EDT CM Discharge Note: D/C home on 04/03/2014 without home health services. Taxi voucher provided. Luna Lopez RN #[phone] * Lisbeth Lopez RN - 04/03/2014 1125 EDT Initial Case Management/Social Work Assessment and Discharge Plan /Readmission Risk Assessment Physician working diagnosis: 58 y.o. Male with above hx of presents with chest pain and positive biomarker's consistent with NSTEMI. Patient (or designee) understanding of admission: heart attack Patient Contact Information: patient states mother, but doesn't know her phone number MEDICAL AND COMMUNITY SERVICES: Primary Care Provider: Sai Garg MD Pharmacy: [facility] in [place] LIVING ARRANGEMENTS AND ACCESSIBILITY ISSUES: Other: Are there any home access issues? What in home social supports are available to the patient? none ADVANCED DIRECTIVES, POA &/or COLST IN PLACE: No CULTURAL, BAHAI and/or LANGUAGE factors affecting health care/discharge planning:: N/A FUNCTIONAL & PSYCHOSOCIAL INFORMATION: Patient is independent. We discussed his alcohol dependence. Patient again declining offers of rehab. States he needs to find housing before winter. He just moved to [place] one week ago and hasn't been in contact with the local mental health social worker office MEDICAL INSURANCE IN PLACE: Yes Medicaid Type: Community DISCHARGE RISK ASSESSMENT: Decreased adherence to treatment plan;Lives at home with limited or no community support;History ofmental illness Total # selected above: Score of 2 - 4: This patient is at MODERATE RISK for re-hospitalization Tentative plan to address the risk of re-hospitalization for those at HIGH or MODERATE RISK: Bring risk factors to attention of team to be addressed INITIAL TRANSITION PLAN: Transportation from hospital in place? No,[facility] will need to find transportation home for patient. Notified him, plan will be transport to [facility] to peanut picker meds, then he can walk to his home Post hospitalization Plan: Return to independent living New DME Requirements: No Initial plan discussed with: patient; assessment will need to be ongoing. Patient has CP and most likely still has ETOH in his system. Lisbeth Lopez RN 04/03/2014 11:25 * Nolan Carmona - 04/03/2014 0734 EDT Cardiology Daily Progress Note PGY-1 note - attending to follow Admit Date: 04/03/2014 Hospital day: LOS: 0 days Date of Service: 04/03/2014 Chief Complaint: Events/ Procedures in the last 24 hrs: Admitted overnight from [facility]. Chest pain overnight. Given morphine w some relief but caused BP to fall from 140/80 to 95/65. Subjective: This morning pt has complaint of 8/10 left-sided chest pain. He is also experiencing pain in his LTarm and leg. This is the same pain that brought him to hospital and same pain he experienced in December before LHC & PCI placement. Pain is worst w moving, deep breathing, coughing. He has CHEST WALL TENDERNESS. He denies SOB while resting but is not breathing deeply b/c of pain. Occasional cough. Pt denies feeling that he is experiencing EtOH w/ drawl. He reports familiarity w this process. He denies nausea or vomiting, abdominal pain or discomfort. He has not had a BM in 2 days. He reports decreased urine output. Did not urinate last night and usually goes X3 or more. Inpatient Medications: Current Facility-Administered Medications Medication Route Frequency ??? albuterol (VENTOLIN HFA) inhaler 2 Puff inhalation QID PRN ? ? aluminum & magnesium hydroxide-simethicone (MYLANTA-DS) 400-400-40 mg/5 mL suspension 15 mLoral PRN And ??? lidocaine (XYLOCAINE) 2 % viscous solution 15 mL oral PRN ??? amitriptyline (ELAVIL) tablet 50 mg oral QHS ??? aspirin chewable tablet 81 mg oral DAILY ??? atorvastatin (LIPITOR) tablet 40 mg oral DAILY ??? baclofen (LIORESAL) tablet 20 mg oral BID ??? citalopram (CELEXA) tablet 60 mg oral DAILY ??? folic acid (FOLVITE) tablet 1 mg oral DAILY ??? heparin 1,000 unit/mL injection 4,000 Units intravenous PRN Or ??? heparin 1,000 unit/mL injection 2,000 Units intravenous PRN ??? heparin in 1/2 NS 25,000 unit/250 mL infusion intravenous CONTINUOUS ??? levothyroxine (SYNTHROID) tablet 75 mcg oral DAILY BEFORE BREAKFAST ??? lisinopril (PRINIVIL, ZESTRIL) tablet 10 mg oral ONCE ??? metoprolol (LOPRESSOR) tablet 25 mg oral BID ??? mometasone-formoterol (DULERA) 100-5 mcg/actuation inhaler 2 Puff inhalation BID ??? morphine injection 2-4 mg intravenous Q5 MINUTES PRN ??? Multivitamins with Minerals tablet 1 Tab oral DAILY ??? nitroGLYCERIN (NITROSTAT) SL tablet 0.4 mg sublingual Q5 MINUTES PRN ??? pneumococcal vaccine (PPV23) (PNEUMOVAX) injection 0.5 mL intramuscular ONCE ??? ranitidine (ZANTAC) tablet 150 mg oral BID ??? sodium chloride 0.9 % flush 3 mL intravenous Q8H ??? thiamine (VITAMIN B1) tablet 100 mg oral DAILY ??? ticagrelor (BRILINTA) tablet 90 mg oral BID ??? tiotropium (SPIRIVA) 18 mcg inhalation capsule 18 mcg inhalation DAILY Review of Systems: Pt has pain in LT leg when walking, thigh and calf. Objective: VS: Patient Vitals for the past 8 hrs: BP Pulse Heart Rate Resp Temp SpO2 O2 Flow Rate (L/min) O2 Device 04/03/14 0427 - - 84 BPM 18 - 100 % 1.5 l/min Nasal cannula 04/03/14 0258 141/84 mmHg 87 87 BPM 18 36.5 ??C (97.7 ??F) 99 % 2 l/min Nasal cannula Pain: Patient Vitals for the past 8 hrs: Numeric Pain Level (Scale 1-10) Asleep 04/03/14 0652 5 - 04/03/14 0636 6 - 04/03/14 0556 - Reassessed, sleeping comfortably, RR WNL. 04/03/14 0530 7 - 04/03/14 0507 9 - 04/03/14 0448 6 - 04/03/14 0341 6 - 04/03/14 0258 8 - Weight: Patient Vitals for the past 8 hrs: Weight 04/03/14 0258 57.561 kg (126 lb 14.4 oz) Glucose Readings (last 8 hours): No results found for this basename: GLUCOSEFINGE, in the last 72 hours I&O: No intake or output data in the 24 hours ending 04/03/14 0735 Physical Exam: General appearance: Pt appears uncomfortable, mild distress, cooperative, pleasant, poor hygiene Head: Normocephalic, without obvious abnormality, atraumatic Eyes: conjunctivae/corneas clear. PERRL, EOM's intact. Fundi benign Lungs: clear to auscultation bilaterally. No audible crackles in base. Heart: RRR, S1, S2 normal, no murmur, click, rub or gallop Chest: CHEST WALL TENDERNESS on LF side Abdomen: non-distended, hyperactive bowel sounds, soft, non-tender Neurologic: hyper-reflexic of upper extremities, brisk reflexes of lower extremities Extremities: Thin lower extremities, cool to touch, weakly palpable DP pulses bilaterally. Little hair on legs. Is PICC / Central line present?: No Data Review: Lab Review: CBC: Recent Labs 04/03/14 031 WBC 7.33 HGB 12.9* HCT 37.7* MCV 94 PLT 84* BMP: Recent Labs 04/03/14309 CREATININE 0.66 BUN 9* NA 143 K 4.0 CL 103 CO2 28 MG 1.8 Coags: Recent Labs 04/03/14309 PROTIME 9.6 INR 0.9 PTT 97* LFTs: Recent Labs 04/03/14309 ALT 292* AST 274* ALKPHOS 84 FSBS: No results found for this basename: GLUCOSEFINGE, in the last 72 hours Cardiac Biomarkers: Recent Labs 04/03/14309 CK 133 MB 1.90 TROPONINI <0.034 Hemoglobin A1C: Lab Results Component Value Date HGBA1C 6.0 01/18/2014 ECHO: Pending EKG: [facility] ekg with no st changes (5) 0900 - No changes from previous Assessment: 58 y.o. male with w EtOH'ism CAD s/p stents (12/29) who presented w Chest pain and intoxication and was found to have an elevated trop at OSH and Negative trop at [facility]. Problems: Patient Active Problem List Diagnosis ??? Abnormal cardiovascular stress test ??? Chest pain ??? Confusion ??? Hypertension ??? Hyperlipidemia ??? Chronic right shoulder pain ??? Cervical spondylosis ??? NSTEMI (non-ST elevated myocardial infarction) ??? NSTEMI (non-ST elevated myocardial infarction) ??? ETOH abuse Plan: Chest pain, CAD, Pericarditis - CP radiating to LT arm and leg, Chest wall tenderness - No EKG changes. Abnormal ST segment in V3, no gross elevation - Troponin Negative. Consider repeating this morning. - ASA 81 - No Plavix or Ticagrelor due to thrombocytopenia of 84K - PRN morphine - metoprolol 25 bid - No intervention is indicated at this time. Hx of non-compliance would pose greater risk thrombotic event. HLD - d/c statin b/c contra-indication w pt's trans-aminitis of > X 3 normal range. HTN -DELORES/ARB at home dose COPD -home meds Hypothyroid -home synthroid Etoh Abuse -vital signs no suggestive of withdrawal. Pt denying symptoms -thiamine, folate -ciwa when tachy, htn, or signs of symptoms emerge of withdrawal Thrombocytopenia -Likely related to chronic EtOH'sim - 84K on 04/04 -Continue to monitor. Consider bleeding risk if procedure is necessary Peripheral Eosinophilia - CBC showed 17% Eosinophils (WBC 7.33K) -consider eosinophilic esophagitis if cath/stress is negative as possible cause of chest pain - Consider other causes: Parasitic infection (pt poor hygiene, living in Tent) Mood Disorder - History of Bipolar mood disorder per records - Celexa currently (contra-indicated in Bipolar as it may trigger sin?) - Amitriptyline ( risk of arrythmia in context of heart disease?) FEN: --Will follow lytes and adjust accordingly --Diet: NPO in case intervention. Followed by cardiac diet. PPx: Heparin Code: FULL Dispo: Pending clinical improvement. Nolan Carmona MD PGY-1 Pager #[phone] documented in this encounter H&P Notes * Ravi Costello MD - 04/03/2014 0317 EDT Internal Medicine Admission H&P Admission Date: 04/03/2014 PCP: Sai Garg MD CC: Chest Pain Subjective: HPI: Jimenez Barkley is a 58 y.o. year old male with known cad, etoh abuse with withdrawal with two previous admissions in December and January of this year who presents with chest pain. He says he has been compliant with his medications. He says overall the past couple of weeks he has not had chest pain. He had chest pain for approx the past 20 hours. He says it has been worse with exertion. He has been drinking heavily today and was brought by the police to the ED. He was found to have etoh level of over 400. He was also found to have an elevated trop. He was treated with 162 mg asa, 180 mg ticagrelor, and heparin gtt and transferred to [facility]. He says he has continued pain and it is worse with palpation. He says it is very similar to the pain he has had in the past which lead to his prior hospitalizations. The last time the patient was admitted he had a cath which showed patent lad stents. Review of Systems A ten point review of systems performed and negative except as noted in HPI/subjective PMH PSH Past Medical History Diagnosis Date ??? Psychiatric problem Bipolar ??? Arthritis ??? 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 ??? Hypothyroid ??? Hypertension ??? Hyperlipidemia ??? COPD (chronic obstructive pulmonary disease) ??? Multiple injuries of head ??? ETOH abuse ??? Bipolar disorder ??? Chronic right shoulder pain 07/21/2012 ??? Cervical spondylosis 07/21/2012 Past Surgical History Procedure Laterality Date ??? Tonsillectomy Social History Family history History Substance Use Topics ??? Smoking status: Current Every Day Smoker -- 1.50 packs/day for 35 years ??? Smokeless tobacco: Not on file ??? Alcohol Use: Yes Comment: Current ethanol abuse, drinks 12 pack of beer daily Family History Problem Relation Age of Onset ??? High Blood Pressure Mother ??? High Cholesterol Mother ??? High Blood Pressure Father ??? Mental Illness Father Current Facility-Administered Medications Medication Route Frequency ??? albuterol (VENTOLIN HFA) inhaler 2 Puff inhalation QID PRN ??? amitriptyline (ELAVIL) tablet 50 mg oral QHS ??? aspirin chewable tablet 81 mg oral DAILY ??? baclofen (LIORESAL) tablet 20 mg oral BID ??? citalopram (CELEXA) tablet 60 mg oral DAILY ??? folic acid (FOLVITE) tablet 1 mg oral DAILY ??? heparin 1,000 unit/mL injection 4,000 Units intravenous PRN Or ??? heparin 1,000 unit/mL injection 2,000 Units intravenous PRN ??? heparin in 1/2 NS 25,000 unit/250 mL infusion intravenous CONTINUOUS ??? levothyroxine (SYNTHROID) tablet 75 mcg oral DAILY BEFORE BREAKFAST ??? lisinopril (PRINIVIL, ZESTRIL) tablet 10 mg oral ONCE ??? metoprolol (LOPRESSOR) tablet 25 mg oral BID ??? mometasone-formoterol (DULERA) 100-5 mcg/actuation inhaler 2 Puff inhalation BID ??? morphine injection 2-4 mg intravenous Q5 MINUTES PRN ??? Multivitamins with Minerals tablet 1 Tab oral DAILY ??? nitroGLYCERIN (NITROSTAT) SL tablet 0.4 mg sublingual Q5 MINUTES PRN ??? ranitidine (ZANTAC) tablet 150 mg oral BID ??? sodium chloride 0.9 % flush 3 mL intravenous Q8H ??? thiamine (VITAMIN B1) tablet 100 mg oral DAILY ??? ticagrelor (BRILINTA) tablet 90 mg oral BID ??? tiotropium (SPIRIVA) 18 mcg inhalation capsule 18 mcg inhalation DAILY Allergies Allergies Allergen Reactions ??? Tegretol (Carbamazepine) Hives Objective: Patient Vitals for the past 8 hrs: BP Pulse Heart Rate Resp Temp SpO2 O2 Flow Rate (L/min) O2 Device 04/03/14 0258 141/84 mmHg 87 87 BPM 18 36.5 ??C (97.7 ??F) 99 % 2 l/min Nasal cannula General appearance: fatigued, cooperative, no distress, thin, disheveled Head: Normocephalic, without obvious abnormality, atraumatic Eyes: conjunctivae/corneas clear. PERRL, EOM's intact. Fundi benign Lungs: clear to auscultation bilaterally Heart: regular rate and rhythm, S1, S2 normal, no murmur, click, rub or gallop Abdomen: soft, non-tender Neurologic: Grossly normal Mental Status: awake and alert; oriented to person, place, and time Chest wall: left sided chest wall tenderness Extremities: extremities warm, atraumatic, no cyanosis or edema ECG: [facility] ekg with no st changes Data Review: Labs pending Assessment: 58 y.o. Male with above hx of presents with chest pain and positive biomarker's consistent with NSTEMI. Plan: Chest pain, CAD -tele -cycle CE -A1c, lipids -TTE -ASA, ticagrelor -PRN morphine -PRN NTG -metoprolol 25 bid -NPO midnight for potential intervention/test Favorable Lipid Profile likely 2/2 to etoh ingestion -statin dc as cardiology team sees fit HTN -PRN hydralazine -DELORES/ARB at home dose COPD -home meds Hypothyroid -home synthroid Etoh Abuse -thiamine, folate -etoh level pending -ciwa when tachy, htn, or signs of symptoms emerge of withdrawal Thrombocytopenia -likely due to etoh and hepatospleno sequestration Peripheral Eosinophilia -observed at OSH -hemagram and diff pending -consider eosinophilic esophagitis if cath/stress is negative as possible cause of chest pain PPX: heparin gtt Code status: FULL CODE Dispo: pending clinical course Rafa Bright MD Pager # [phone] 04/03/2014 3:17 Fellow addendum - 58 y/o male with PMH of CAD s/p PCI to prox LAD in 12/29, abnormal stress in 01/28 with subsequent LHC showing patent stents in 01/28 with out progression of disease came in as a transfer for chest discomfort atypical for ACS (worse with movement, constant for the past 36 hours) withelevated troponin in OSH (0.2) but normalized here. Likely has ? Myopericarditis. Will not request any further ischemic eval. Will request limited Echo. D/W DR Quintero. 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 CP syndrome is clearly musculoskeletal. He does not have evidence of VT by troponin evaluation. He has demonstrated noncompliance and so will avoid invasive evaluation/stent placement because it places patient at greater risk of complications (stent thrombosis). Plan on medical therapy. Attestation statement::I have seen and examined this patient. I agree with the plan as outlined above. Ravi Costello MD documented in this encounter Miscellaneous Notes * Plan of Care - Eleonora Song RN - 04/03/2014 1321 EDT Problem: DISCHARGE PLANNING Goal: Patient???s Continuum Of Care Needs Are Met Intervention: Identify goal discharge date at time of admission D: Patient discharged home per MD. A: IV removed, catheter tip intact. Telemetry removed. RN reviewed discharge instructions and medications with patient. Patient received medication sheets, and discharge instructions. R: Patient expressed good understanding of discharge instructions. He has no questions at this time. Patient dressed independently. He left via wheelchair. Pt will transport by taxi to [facility] to peanut picker meds, and then he will walk home. MD Carmona aware. Eleonora Song RN 04/03/2014 * Plan of Care - Navarro Leroy RN - 04/03/2014 0718 EDT Problem: HOSPITAL ORIENTATION/SAFETY Goal: Oriented To Hospital Environment Outcome: Completed Date Met: 04/03/14 D: Patient arrived to [place] [address]. Vital signs noted, and tele applied. Patient in SR with heart rate in 80s. Patient with 8/10 left sided chest pain under his ribs radiating down his left arm and left leg. Patient with no SOB. Sonia; MD Sandy aware and at bedside. Assessment as documented in flow sheet. Admission database completed. Patient orientated to room, equipment, and care plan. Oral lidocaine/mylanta given with no effect. PRN IV morphine 2mg given x2 with small relief in pain. See eMar and chart. R: Will continue to monitor and document per protocol. documented in this encounter Plan of Treatment Pending Results Name Type Priority Associated Diagnoses Date /Time OUTSIDE IMAGES - OTHER CHEST Imaging 04/03/2014 6:01 EDT Scheduled Referrals Name Type Priority Associated Diagnoses Orde r Schedule AMB CONS/FOLLOW UP PRIMARY CARE PHYSICIAN Outpatient Referral Routine Chest pain Ordered: 04/03/2014 documented as of this encounter Procedures Procedure Name Priority Date/Time Associated Diagnosis Comments ECG REPORT - SCANNED 04/10/2014 6:51 EDT ECG REPORT - SCANNED 04/07/2014 17:40 EDT ECG REPORT - SCANNED 04/07/2014 11:58 EDT ECHOCARDIOGRAM LIMITED Routine 4 11:29 EDT DRUG SCREEN 6 Routine 04/03/2014 10:12 EDT EKG 12-LEAD Routine 04/03/2014 8:38 EDT PTT Timed 04/03/2014 6:03 EDT INPATIENT ADD-ON Routine 04/03/2014 5:15 EDT DRY POWDERED OR METERED DOSE INHALER Routine 04/03/2014 4:32 EDT DRY POWDERED OR METERED DOSE INHALER Routine 04/03/2014 4:32 EDT INPATIENT ADD-ON STAT 04/03/2014 3:40 EDT INPATIENT ADD-ON Routine 04/03/2014 3:20 EDT INPATIENT ADD-ON Routine 04/03/2014 3:20 EDT INPATIENT ADD-ON Routine 04/03/2014 3:20 EDT EKG 12-LEAD STAT 04/03/2014 3:13 EDT TROPONIN I STAT 04/03/2014 3:10 EDT DIFFERENTIAL STAT 04/03/2014 3:10 EDT PTT STAT 04/03/2014 3:10 EDT PROTIME STAT 04/03/2014 3:10 EDT COMPLETE BLOOD COUNT STAT 04/03/2014 3:10 EDT COMPLETE BLOOD COUNT AND DIFFERENTIAL STAT 04/03/2014 3:10 EDT BUN STAT 04/03/2014 3:10 EDT ALT Routine 04/03/2014 3:10 EDT AST Routine 04/03/2014 3:10 EDT TSH Routine 04/03/2014 3:10 EDT ALKALINE PHOSPHATASE Routine 04/03/2014 3:10 EDT MAGNESIUM Routine 04/03/2014 3:10 EDT HEMOGLOBIN A1C Routine 04/03/2014 3:10 EDT GLUCOSE, SERUM Routine 04/03/2014 3:10 EDT CREATININE STAT 04/03/2014 3:10 EDT CK MB WITH TOTAL CK STAT 04/03/2014 3 :10 EDT BILIRUBIN, TOTAL Routine 04/03/2014 3:10 EDT ETHANOL, BLOOD STAT 04/03/2014 3:10 EDT ELECTROLYTES STAT 04/03/2014 3:10 EDT documented in this encounter Results * ECG REPORT - SCANNED (04/10/2014 6:51 EDT) 04/10/2014 6:51 EDT Scan 2 Manager Ui PROCEDURE/MINOR AMITA GICAL ORDERABLES * ECG REPORT - SCANNED (04/07/2014 17:40 EDT) 04/07/2014 17:4 0 EDT Scan 2 Manager Ui PROCEDURE/MINOR AMITA GICAL ORDERABLES * ECG REPORT - SCANNED (04/07/2014 11:58 EDT) 04/07/2014 11:5 8 EDT Scan 2 Manager Ui PROCEDURE/MINOR AMITA GICAL ORDERABLES * ECHOCARDIOGRAM LIMITED (04/03/2014 11:29 EDT) Anatomical Region Laterality Modality Other 04/03/2014 11:2 9 EDT Narrative 04/03/2014 12:04 EDT *Interpreting Group:* *[facility]* [address] [place] [address] *STUDY CONCLUSIONS* Summary: 1. Left ventricle: The cavity size was normal. Wall thickness was normal. ?? Systolic function was at the lower limits of normal. The estimated ejection ?? fraction was 50-55%. There was severe hypokinesis of the mid and basal ?? inferolateral wall. There was mild hypokineis of a discrete segment of the ?? apex. 2. Left atrium: The atrium was mildly dilated. *PATIENT PRESENTATION* Height: ? 182.9cm (72in ) S/D Pressure: 120 / 64 Weight: ? 57.2kg (125.7lb ) BSA: ?1.69m^2 Test start time: ??11:09 AM. Test stop time: ??11:17 AM. ADMITTING ?Golden Quintero MD ATTENDING ?Ravi Costello MD FITNESS SPECIALIST ??Chichi Manning REFERRING ?Sai Garg PERFORMING ?? [facility], ORDERING ? Abimael Matos *PROCEDURE DATA* Procedure information: ??This study was interpreted by [facility] at [facility]. ??Study status: ??Routine. Transthoracic echocardiography. ??M-mode, limited 2D, limited spectral Doppler, and color Doppler. A Transthoracic Echocardiogram was performed. The parasternal window was low, thus no M-mode measurements were recorded. Scanning was performed from the parasternal, apical, and subcostal acoustic windows. Images were obtained using a Carola [id number] 3 cardiac ultrasound machine. Image quality was adequate. Study completion: ??The patient tolerated the procedure well. *INDICATIONS AND HISTORY* Indications: ?? [place] - nontransmural - acute 410.71. History: ?PMH: ??Limited echo, patient with NSTEMI. Labs, prior tests, procedures, and surgery: Transthoracic echocardiography (January 02, 2014). *CARDIAC ANATOMY* Left ventricle: ??The cavity size was normal. Wall thickness was normal. Systolic function was at the lower limits of normal. The estimated ejection fraction was 50-55%. There was severe hypokinesis of the mid and basal inferolateral wall. There was mild hypokineis of a discrete segment of the apex. Left atrium: ??The atrium was mildly dilated. Right ventricle: ??The cavity size was normal. Systolic function was low normal. Pulmonary artery: ?Systolic pressure could not be accurately estimated. Pericardium: ??There was no pericardial effusion. Systemic veins: Inferior vena cava: The vessel was mildly dilated. *MEASUREMENT TABLES* 2D measurements ? Normal Left ventricle Area, ED, A4C ? 32.2 cm^2 ?? 17.7-47.3 Area, ES, A4C ? 18.7 cm^2 ?? 7.9-31.5 Fractional area change, A4C ? 42 % ?--------- Area, ED, A2C ? 27.7 cm^2 ?? --------- Area, ES, A2C ? 15.9 cm^2 ?? 8.9-28.1 Fractional area change, A2C ? 43 % ?33.7-69 Volume, ED, MOD, 1-plane ?93 ml ? --------- Volume, ES, MOD, 1-plane ?39 ml ? --------- Ejection fraction, MOD, 1-plane ?? 58 % ?--------- Stroke volume, MOD, 1-plane ? 54 ml ? --------- Volume index, ED, MOD, 1-plane ?55 ml/m^2 --------- Volume index, ES, MOD, 1-plane ?23 ml/m^2 --------- Stroke index, MOD, 1-plane ?32 ml/m^2 --------- Volume, ED, MOD, 2-plane ?84 ml ? 62-170 Volume, ES, MOD, 2-plane ?34 ml ? --------- Ejection fraction, MOD, 2-plane ?? 60 % ?--------- Stroke volume, MOD, 2-plane ? 50 ml ? --------- Volume index, ED, MOD, 2-plane ?50 ml/m^2 --------- Volume index, ES, MOD, 2-plane ?20 ml/m^2 --------- Stroke index, MOD, 2-plane ?29.7 ml/m^2 --------- Legend: Mean values are shown as u=mean value. Asterisk (*) faith values outside specified normal range. Electronically signed by Golden Rutherford MD 04/03/2014 12:04 Procedure Note 04/03/2014 *Interpreting Group:* *[facility]* [address] [place] [address] *STUDY CONCLUSIONS* Summary: 1. Left ventricle: The cavity size was normal. Wall thickness was normal. Systolic function was at the lower limits of normal. The estimatedejection fraction was 50-55%. There was severe hypokinesis of the mid and basal inferolateral wall. There was mild hypokineis of a discrete segment ofthe apex. 2. Left atrium: The atrium was mildly dilated. *PATIENT PRESENTATION* Height: 182.9cm (72in ) S/D Pressure: 120 / 64 Weight: 57.2kg (125.7lb ) BSA: 1.69m^2 Test start time: 11:09 AM. Test stop time: 11:17 AM. ADMITTING Golden Quintero MD ATTENDING Ravi Costello MD FITNESS SPECIALIST Chichi Manning REFERRING Sai Garg [facility], ORDERING RoxannedaAbimael cadena *PROCEDURE DATA* Procedure information: This study was interpreted by [facility]. Study status: Routine.Transthoracic echocardiography. M-mode, limited 2D, limited spectral Doppler, and color Doppler. A Transthoracic Echocardiogram was performed. The parasternalwindow was low, thus no M-mode measurements were recorded. Scanning was performedfrom the parasternal, apical, and subcostal acoustic windows. Images wereobtained using a Carola IE33 3 cardiac ultrasound machine. Image quality wasadequate. Study completion: The patient tolerated the procedure well. *INDICATIONS AND HISTORY* Indications: VT - nontransmural - acute 410.71. History: PMH: Limited echo, patient with NSTEMI. Labs, prior tests, procedures, and surgery: Transthoracic echocardiography (January 02, 2014). *CARDIAC ANATOMY* Left ventricle: The cavity size was normal. Wall thickness was normal.Systolic function was at the lower limits of normal. The estimated ejectionfraction was 50-55%. There was severe hypokinesis of the mid and basal inferolateralwall. There was mild hypokineis of a discrete segment of the apex. Left atrium: The atrium was mildly dilated. Right ventricle: The cavity size was normal. Systolic function was lownormal. Pulmonary artery: Systolic pressure could not be accurately estimated. Pericardium: There was no pericardial effusion. Systemic veins: Inferior vena cava: The vessel was mildly dilated. *MEASUREMENT TABLES* 2D measurements Normal Left ventricle Area, ED, A4C 32.2 cm^2 17.7-47.3 Area, ES, A4C 18.7 cm^2 7.9-31.5 Fractional area change, A4C 42 % --------- Area, ED, A2C 27.7 cm^2 --------- Area, ES, A2C 15.9 cm^2 8.9-28.1 Fractional area change, A2C 43 % 33.7-69 Volume, ED, MOD, 1-plane 93 ml --------- Volume, ES, MOD, 1-plane 39 ml --------- Ejection fraction, MOD, 1-plane 58 % --------- Stroke volume, MOD, 1-plane 54 ml --------- Volume index, ED, MOD, 1-plane 55 ml/m^2 --------- Volume index, ES, MOD, 1-plane 23 ml/m^2 --------- Stroke index, MOD, 1-plane 32 ml/m^2 --------- Volume, ED, MOD, 2-plane 84 ml 62-170 Volume, ES, MOD, 2-plane 34 ml --------- Ejection fraction, MOD, 2-plane 60 % --------- Stroke volume, MOD, 2-plane 50 ml --------- Volume index, ED, MOD, 2-plane 50 ml/m^2 --------- Volume index, ES, MOD, 2-plane 20 ml/m^2 --------- Stroke index, MOD, 2-plane 29.7 ml/m^2 --------- Legend: Mean values are shown as u=mean value. Asterisk (*) faith values outside specified normal range. Electronically signed by Golden Rutherford MD 04/03/2014 12:04 Abimael Matos MD CARDIAC ECHO [facility] * DRUG SCREEN 6 (04/03/2014 10:12 EDT) Amphetamine Screen, Urine Negative screen. [facility] Comment: Confirmation testing available upon request. Suitable for medical purposes only. Will not detect all drugs within class. Cutoff = 1000 ng/ml Specimen type is urine. Barbiturate Screen, Urine Negative screen. [facility] Comment: Confirmation testing available upon request. Suitable for medical purposes only. Will not detect all drugs within class. Cutoff = 300 ng/ml Specimen type is urine. Benzodiazepine Screen, Urine Presumptive positive, interpret with caution. [facility] Comment: Confirmation testing available upon request. Suitable for medical purposes only. Will not detect all drugs within class. Assay less sensitive to Lorazepam and metabolites. Cutoff = 200 ng/ml Specimen type is urine. Cannabinoid Scrn, Ur Presumptive positive, interpret with caution. [facility] Comment: Confirmation testing available upon request. Suitable for medical purposes only. Will not detect all drugs within class. Cutoff = 50 ng/ml Specimen type is urine. Opiate Scrn, Ur Presumptive positive, interpret with caution. [facility] Comment: Confirmation testing available upon request. Suitable for medical purposes only. Will not detect all drugs within class. Cutoff = 300 ng/ml Assay less sensitive to oxycodone and metabolites. Assay does not detect methadone. Specimen type is urine. Cocaine Metabolites, Ur Negative screen. [facility] Comment: Confirmation testing available upon request. Suitable for medical purposes only. Will not detect all drugs within class. Cutoff = 300 ng/ml Specimen type is urine. Urine specimen (specimen) URINE / Unknown 04/03/2014 10:12 EDT 04/03/2014 10:23 EDT Rafa Bright MD URINALYSIS ORDERABLE S [facility] [address] [place] [address] * EKG 12-LEAD (04/03/2014 8:38 EDT) 04/03/2014 8:38 EDT Narrative [facility] - 04/08/2014 16:55 EDT ?[facility] ? Test Date: ?2014-04-03 Pat Name: ? JIMENEZ BARKLEY ? Department: ?? Nery Mackay ? Room: ? MW530 Gender: ? M ?Pony Worker: ?? [id number] : ?1955 ? Requested By: NOLAN CARMONA MD Order Number: [id number] ? Reading MD: ?? ADRIEL HENDERSON MD ? Measurements Intervals ?[place] ? Rate: ? 64 ? P: ?52 DC: ? 148 ?QRS: ?74 QRSD: ? 95 ? T: ?75 QT: ? 428 ? QTc: ?442 ? Interpretive Statements SINUS RHYTHM NONSPECIFIC ST & T-WAVE ABNORMALITY Compared to ECG 04/03/2014 03:13:35 T-wave abnormality now present I reviewed the tracing and agreed or edited the report. Electronically Signed On 04-08-14 16:55:49 EDT by ADRIEL HENDERSON MD. Procedure Note Adriel Henderson MD - 04/08/2014 [facility] Test Date: 2014-04-03 Pat Name: JIMENEZ BARKLEY Department: [place] [address] Room: [facility] Gender: M Pony Worker: [id number] : 1955 Requested By: NOLAN CARMONA MD Order Number: [id number] Reading MD: ADRIEL HENDERSON MD Measurements Intervals [place] Rate: 64 P: 52 DC: 148 QRS: 74 QRSD: 95 T: 75 QT: 428 QTc: 442 Interpretive Statements SINUS RHYTHM NONSPECIFIC ST & T-WAVE ABNORMALITY Compared to ECG 04/03/2014 03:13:35 T-wave abnormality now present I reviewed the tracing and agreed or edited the report. ElectronicallySigned On 04-08-14 16:55:49 EDT by ADRIEL HENDERSON MD. Nolan Carmona MD CARDIAC ECG ORDERABL ES [facility] EKG * (ABNORMAL) PTT (04/03/2014 6:03 EDT) PTT 69(H) 26 - 37 secs [facility] Comment:Therapeutic Heparin range: 65-100 seconds Blood specimen (specimen) 04/03/2014 6:03 EDT 04/03/2014 7:22 EDT Rafa Bright MD HEMATOLOGY & PF4 ORD ERABLES Performing Organization Address [facility] Co de Phone Number [facility] [address] [place] [address] * INPATIENT ADD-ON (04/03/2014 5:15 EDT) Tests to be added MAGNESIUM [facility] Number for problems Not Given [facility] Accession number [id number] [facility] 04/03/2014 5:15 EDT 04/03/2014 5:15 EDT Rafa Bright MD HEMATOLOGY & PF4 ORD ERABLES Performing Organization Address [facility] de Phone Number [facility] [address] [place] [address] * INPATIENT ADD-ON (04/03/2014 3:40 EDT) Tests to be added PLEASE ADD DIFF TO HEMAGRAM [facility] Number for problems Not Given [facility] Accession number Not Given [facility] Comment: (Note) CBCDF ALREADY ORDERED 04/03/2014 3:40 EDT 04/03/2014 3:40 EDT Rafa Bright MD HEMATOLOGY & PF4 ORD ERABLES Performing Organization Address [facility] de Phone Number [facility] [address] [place] [address] * INPATIENT ADD-ON (04/03/2014 3:20 EDT) Tests to be added AST, ALT, ALK PHOS, TBILI, TSH [facility] Number for problems Not Given [facility] Accession number [id number] [facility] 04/03/2014 3:20 EDT 04/03/2014 3:24 EDT Rafa Bright MD HEMATOLOGY & PF4 ORD ERABLES Performing Organization Address [facility] Co de Phone Number [facility] [address] [place] [address] * INPATIENT ADD-ON (04/03/2014 3:20 EDT) Tests to be added GLUCOSE, SERUM [facility] Number for problems Not Given [facility] Accession number [id number] [facility] 04/03/2014 3:20 EDT 04/03/2014 3:24 EDT Rafa Bright MD HEMATOLOGY & PF4 ORD ERABLES Performing Organization Address [facility] Co de Phone Number [facility] [address] [place] [address] * INPATIENT ADD-ON (04/03/2014 3:20 EDT) Tests to be added HEMOGLOBIN A1C [facility] Number for problems Not Given [facility] Accession number [id number] [facility] 04/03/2014 3:20 EDT 04/03/2014 3:23 EDT Rafa Bright MD HEMATOLOGY & PF4 ORD ERABLES Performing Organization Address [facility] de Phone Number [facility] [address] [place] [address] * EKG 12-LEAD (04/03/2014 3:13 EDT) 04/03/2014 3:13 EDT Narrative [facility] EKG - 04/06/2014 8:40 EDT ?[facility] ? Test Date: ?2014-04-03 Pat Name: ? JIMENEZ BARKLEY ? Department: ?? [facility] ? Room: ? MW530 Gender: ? M ?Pony Worker: ?? [id number] : ?1955 ? Requested By: RAFA BRIGHT MD Order Number: [id number] ? Reading MD: ?? FRIEDROSALINDA JACKIE MD ? Measurements Intervals ?[place] ? Rate: ? 77 ? P: ?-40 DC: ? 144 ?QRS: ?73 QRSD: ? 94 ? T: ?76 QT: ? 400 ? QTc: ?453 ? Interpretive Statements SINUS RHYTHM Normal ECG. Compared to ECG 01/18/2014 00:50:23 No significant change I reviewed the tracing and agreed or edited the report. Electronically Signed On 04-06-14 08:40:11 EDT by SHMUEL MEJIA MD. Procedure Note Shmuel Mejia MD - 04/06/2014 [facility] Test Date: 2014-04-03 Pat Name: JIMENEZ BARKLEY Department: [place] [address] Room: [facility] Gender: M Pony Worker: [id number] : 1955 Requested By: RAFA BRIGHT MD Order Number: [id number] Reading MD: SHMUEL CERVANTES Measurements Intervals [place] Rate: 77 P: -40 DC: 144 QRS: 73 QRSD: 94 T: 76 QT: 400 QTc: 453 Interpretive Statements SINUS RHYTHM Normal ECG. Compared to ECG 01/18/2014 00:50:23 No significant change I reviewed the tracing and agreed or edited the report. ElectronicallySigned On 04-06-14 08:40:11 EDT by SHMUEL MEJIA MD. Rafa Bright MD CARDIAC ECG ORDERABL ES Performing Organization Address [facility] de Phone Number [facility] * MAGNESIUM (04/03/2014 3:10 EDT) Magnesium 1.8 1.7 - 2.8 mg/dl [facility] 04/03/2014 3:10 EDT 04/03/2014 3:14 EDT Rafa Bright MD CHEMISTRY & BLOOD GA S ORDERABLES Performing Organization Address [facility] Co de Phone Number [facility] [address] [place] [address] * (ABNORMAL) DIFFERENTIAL (04/03/2014 3:10 EDT) Neutrophils 57.0 45.5 - 79.7 % [facility] Lymphocytes 19.0 15.0 - 46.8 % [facility] Monocytes 7.0 1.8 - 12.0 % [facility] Eosinophils 17.0(H) 0.6 - 6.9 % [facility] ABS Neutrophils 4.18 2.20 - 8.85 K/cmm [facility] ABS Lymphs 1.39 1.09 - 3.30 K/cmm [facility] ABS Monocytes 0.51 0.1 - 0.8 K/cmm [facility] ABS Eosinophils 1.25(H) 0.03 - 0.61 K/cmm [facility] RBC Morphology 1+ [facility] Comment:Anisocytosis Type of Diff: Manual [facility] 04/03/2014 3:10 EDT 04/03/2014 3:14 EDT Rafa Bright MD HEMATOLOGY & PF4 ORD ERABLES [facility] [address] [place] [address] * (ABNORMAL) HEMAGRAM (04/03/2014 3:10 EDT) WBC 7.33 4.0 - 10.4 K/cmm [facility] RBC 4.02(L) 4.36 - 5.78 M/cmm [facility] Hemoglobin 12.9(L) 13.8 - 17.3 gm/dl [facility] HCT 37.7(L) 39.5 - 50.2 % [facility] MCV 94 81 - 95 fl [facility] MCH 32.0 27.6 - 33.0 pg [facility] MCHC 34.1 32.8 - 36.4 gm/dl [facility] PLT 84(L) 141 - 320 K/cmm [facility] RDW-CV 14.4(H) 11.8 - 14.1 % [facility] 04/03/2014 3:10 EDT 04/03/2014 3:14 EDT Rafa Bright MD HEMATOLOGY & PF4 ORD ERABLES Performing Organization Address [facility] Co pr Phone Number [facility] [address] [place] [address] * TSH (04/03/2014 3:10 EDT) TSH 3.46 0.35 - 5.00 uIU/ml [facility] 04/03/2014 3:10 EDT 04/03/2014 3:14 EDT Rafa Bright MD CHEMISTRY & BLOOD GA S ORDERABLES Performing Organization Address [facility] Phone Number [facility] [address] [place] [address] * BILIRUBIN, TOTAL (04/03/2014 3:10 EDT) Bilirubin, Total <0.5 <1.4 mg/dl [facility] 04/03/2014 3:10 EDT 04/03/2014 3:14 EDT Rafa Bright MD CHEMISTRY & BLOOD GA S ORDERABLES Performing Organization Address [facility] Phone Number [facility] [address] [place] [address] * (ABNORMAL) GLUCOSE, SERUM (04/03/2014 3:10 EDT) Glucose, Serum 136(H) 70 - 100 mg/dl [facility] 04/03/2014 3:10 EDT 04/03/2014 3:14 EDT Rafa Bright MD CHEMISTRY & BLOOD GA S ORDERABLES Performing Organization Address [facility] Phone Number [facility] [address] [place] [address] * HEMOGLOBIN A1C (04/03/2014 3:10 EDT) Hemoglobin A1C 5.6 % [facility] Comment: Reference Range: <5.7% Normal 5.7-6.4% Increased risk for diabetes =>6.5% Diagnostic for diabetes (if confirmed) The A1c goal for non adults in general is <7%. The A1c goal for selected patients may be significantly lower than 7% if this can be achieved without significant hypoglycemia or other adverse effects of treatment. Est Avg Glucose 114 mg/dl [facility] Comment: eAG represents the A1c result expressed as average glucose in mg/dl. 04/03/2014 3:10 EDT 04/03/2014 3:14 EDT Rafa Bright MD CHEMISTRY & BLOOD GA S ORDERABLES Performing Organization Address [facility] de Phone Number [facility] [address] [place] [address] * (ABNORMAL) AST (04/03/2014 3:10 EDT) AST 274(H) 15 - 46 U/L [facility] 04/03/2014 3:10 EDT 04/03/2014 3:14 EDT Rafa Bright MD CHEMISTRY & BLOOD GA S ORDERABLES Performing Organization Address [facility] de Phone Number [facility] [address] [place] [address] * (ABNORMAL) ALT (04/03/2014 3:10 EDT) ALT 292(H) 21 - 72 U/L [facility] 04/03/2014 3:10 EDT 04/03/2014 3:14 EDT Rafa Bright MD CHEMISTRY & BLOOD GA S ORDERABLES Performing Organization Address [facility] de Phone Number [facility] [address] [place] [address] * ALKALINE PHOSPHATASE (04/03/2014 3:10 EDT) Total Alkaline Phosphatase 84 38 - 126 U/L [facility] 04/03/2014 3:10 EDT 04/03/2014 3:14 EDT Rafa Bright MD CHEMISTRY & BLOOD GA S ORDERABLES Performing Organization Address [facility] Co de Phone Number [facility] [address] [place] [address] * (ABNORMAL) PTT (04/03/2014 3:10 EDT) PTT 97(H) 26 - 37 secs [facility] Comment:Therapeutic Heparin range: 65-100 seconds Blood specimen (specimen) 04/03/2014 3:10 EDT 04/03/2014 3:14 EDT Rafa Bright MD HEMATOLOGY & PF4 ORD ERABLES Performing Organization Address [facility] de Phone Number [facility] [address] [place] [address] * PROTIME (04/03/2014 3:10 EDT) Pro Time 9.6 9.5 - 12.3 secs [facility] I.N.R. 0.9 0.9 - 1.1 Ratio [facility] Comment: Moderate Intensity Coumadin INR = 2.0-3.0 Adjustments in anticoagulant therapy dose should be based upon the INR and NOT the Pro Time. Blood specimen (specimen) 04/03/2014 3:10 EDT 04/03/2014 3:14 EDT Rafa Bright MD HEMATOLOGY & PF4 ORD ERABLES Performing Organization Address [facility] Co de Phone Number [facility] [address] [place] [address] * CREATININE (04/03/2014 3:10 EDT) Creatinine 0.66 0.66 - 1.25 mg/dl [facility] GFR, Calculated >60 >60 ml/min/1.7 3m2 [facility] Blood specimen (specimen) 04/03/2014 3:10 EDT 04/03/2014 3:14 EDT Rafa Bright MD CHEMISTRY & BLOOD GA S ORDERABLES Performing Organization Address [facility] Phone Number [facility] [address] [place] [address] * (ABNORMAL) BUN (04/03/2014 3:10 EDT) BUN 9(L) 10 - 26 mg/dl [facility] Blood specimen (specimen) 04/03/2014 3:10 EDT 04/03/2014 3:14 EDT Rafa Bright MD CHEMISTRY & BLOOD GA S ORDERABLES Performing Organization Address [facility] Phone Number [facility] [address] [place] [address] * ELECTROLYTES (04/03/2014 3:10 EDT) Sodium 143 136 - 145 mEq/L [facility] Potassium 4.0 3.5 - 5.0 mEq/L [facility] Chloride 103 96 - 110 mEq/L [facility] CO2 28 24 - 32 mEq/L [facility] Blood specimen (specimen) 04/03/2014 3:10 EDT 04/03/2014 3:14 EDT Rafa Bright MD CHEMISTRY & BLOOD GA S ORDERABLES Performing Organization Address [facility] Phone Number [facility] [address] [place] [address] * CK MB WITH TOTAL CK (04/03/2014 3:10 EDT) CK 133 0 - 250 U/L [facility] MB 1.90 <4.21 ng/ml [facility] Blood specimen (specimen) 04/03/2014 3:10 EDT 04/03/2014 3:14 EDT Rafa Bright MD CHEMISTRY & BLOOD GA S ORDERABLES Performing Organization Address [facility]/State/ZIP Co de Phone Number [facility] [address] [place] [address] * TROPONIN I (04/03/2014 3:10 EDT) Troponin I (ng/mL) <0.034 <0.034 ng/ml [facility] Blood specimen (specimen) 04/03/2014 3:10 EDT 04/03/2014 3:14 EDT Rafa Bright MD CHEMISTRY & BLOOD GA S ORDERABLES Performing Organization Address [facility] Co de Phone Number [facility] [address] [place] [address] * (ABNORMAL) ETHANOL, BLOOD (04/03/2014 3:10 EDT) Pathologist [facility] Ethanol 230(H) <10 mg/dl [facility] Blood specimen (specimen) 04/03/2014 3:10 EDT 04/03/2014 3:14 EDT Rafa Bright MD CHEMISTRY & BLOOD GA S ORDERABLES Performing Organization Address [facility] de Phone Number [facility] [address] [place] [address] documented in this encounter Visit Diagnoses Diagnosis Chest pain- Primary Chest pain, unspecified Chest pain Chest pain, unspecified ETOH abuse Alcohol abuse, unspecified CAD (coronary artery disease) Coronary atherosclerosis of unspecified type of vessel, [place] or graft ETOH abuse Alcohol abuse, unspecified documented in this encounter Administered Medications Inactive Administered Medications - up to 3 most recent administrations Medication Order MAR Action Action Date Dose Rate Site acetaminophen (TYLENOL) tablet 650 mg 650 mg, oral, EVERY 4 HOURS PRN, Starting on Sun04/03/14 at 0817, Until Sun04/03/14 at 1734, Pain, Routine Given 04/03/2014 9:07 EDT 650 mg aluminum & magnesium hydroxide-simethicone (MYLANTA-DS) 400-400-40 mg/5 mL suspension 15 mL 15 mL, oral, PRN, Starting on Sun04/03/14 at 0337, Until Sun04/03/14 at 1734, Indigestion, Routine Given 04/03/2014 3:46 EDT 15 mL aspirin chewable tablet 81 mg 81 mg, oral, DAILY, First dose on Sun04/03/14 at 0900, Until Discontinued, Routine Given 04/03/2014 8:42 EDT 81 mg atorvastatin (LIPITOR) tablet 40 mg 40 mg, oral, DAILY, First dose on Sun04/03/14 at 0900, Until Discontinued, Routine Given 04/03/2014 8:43 EDT 40 mg baclofen (LIORESAL) tablet 20 mg 20 mg, oral, 2 TIMES DAILY, First dose on Sun04/03/14 at 0900, Until Discontinued, Routine Given 04/03/2014 8:45 EDT 20 mg citalopram (CELEXA) tablet 60 mg 60 mg, oral, DAILY, First dose on Sun04/03/14 at 0900, Until Discontinued, Routine Given 04/03/2014 8:46 EDT 60 mg folic acid (FOLVITE) tablet 1 mg 1 mg, oral, DAILY, First dose on Sun04/03/14 at 0330, Until Discontinued, Routine Given 04/03/2014 3:50 EDT 1 mg heparin in 1/ NS 25,000 unit/250 mL infusion 15 Units/kg/hr ? 57.6 kg Adjusted weight (rounded to 8.6 mL/hr), intravenous, CONTINUOUS, Starting on Sun04/03/14 at 0330, Until Sun04/03/14 at 1105, Routine New Bag 04/03/2014 3:25 EDT 15 Units/kg/hr 8.6 mL/ hr levothyroxine (SYNTHROID) tablet 75 mcg 75 mcg, oral, DAILY BEFORE BREAKFAST, First dose on Sun04/03/14 at 0700, Until Discontinued, Routine Given 04/03/2014 6:32 EDT 75 mcg lidocaine (XYLOCAINE) 2 % viscous solution 15 mL 15 mL, oral, PRN, Starting on Sun04/03/14 at 0337, Until Sun04/03/14 at 1734, Pain, chest pain, Routine Given 04/03/2014 3:46 EDT 15 mL lisinopril (PRINIVIL, ZESTRIL) tablet 10 mg 10 mg, oral, Once (Without Time Specified), Starting on Sun04/03/14 at 0315, Until Sun04/03/14 at 1734, Routine Given 04/03/2014 3:50 EDT 10 mg metoprolol (LOPRESSOR) tablet 25 mg 25 mg, oral, 2 TIMES DAILY, First dose on Sun04/03/14 at 0900, Until Discontinued, Routine Given 04/03/2014 8:46 EDT 25 mg mometasone-formoterol (DULERA) 100-5 mcg/actuation inhaler 2 Puff 2 Puff, inhalation, 2 TIMES DAILY, First dose on Sun04/03/14 at 0900, Until Discontinued, Routine Given 04/03/2014 10:45 EDT 2 Puffs morphine injection 2-4 mg 2-4 mg, intravenous, EVERY 5 MIN PRN, Starting on Sun04/03/14 at 0309, Until Sun04/03/14 at 0856, Pain, Routine Given 04/03/2014 6:43 EDT 2 mg Given 04/03/2014 5:11 EDT 2 mg Multivitamins with Minerals tablet 1 Tab 1 Tablet, oral, DAILY, First dose on Sun04/03/14 at 0900, Until Discontinued, Routine Given 04/03/2014 8:45 EDT 1 Tablet ranitidine (ZANTAC) tablet 150 mg 150 mg, oral, 2 TIMES DAILY, First dose on Sun04/03/14 at 0900, Until Discontinued, Routine Given 04/03/2014 8:42 EDT 150 mg sodium chloride 0.9 % flush 3 mL 3 mL, intravenous, EVERY 8 HOURS, First dose on Sun04/03/14 at 0800, Until Discontinued, Routine Given 04/03/2014 8:47 EDT 3 mL thiamine (VITAMIN B1) tablet 100 mg 100 mg, oral, DAILY, First dose on Sun04/03/14 at 0330, Until Discontinued, Routine Given 04/03/2014 3:50 EDT 10 0 mg ticagrelor (BRILINTA) tablet 90 mg 90 mg, oral, 2 TIMES DAILY, First dose on Sun04/03/14 at 0900, Until Discontinued, Routine Given 04/03/2014 8:42 EDT 90 mg tiotropium (SPIRIVA) 18 mcg inhalation capsule 18 mcg 18 mcg, inhalation, DAILY, First dose on Sun04/03/14 at 0900, Until Discontinued, Routine Given 04/03/2014 10:49 EDT 1 8 mcg documented in this encounter Discontinued Medications Medication Sig Discontinue Reason Start Date End Da te clopidogrel (PLAVIX) 75 mg tablet Take 1 Tab by mouth daily for 120 days. 01/03/2014 04/03/2014 documented as of this encounter Active and Recently Administered Medications Times are shown in EDT. Scheduled Medication Order 04/01/2014 04/02/2014 04/03/2014 aspirin chewable tablet 81 mg (CANCELED) 81 mg, oral, DAILY, First dose on Sun04/03/14 at 0900, Until Discontinued, Routine 0842 (Given - Provid er: Eleonora Song RN) atorvastatin (LIPITOR) tablet 40 mg (CANCELED) 40 mg, oral, DAILY, First dose on Sun04/03/14 at 0900, Until Discontinued, Routine 0843 (Given - Provid er: Eleonora Song RN) baclofen (LIORESAL) tablet 20 mg (CANCELED) 20 mg, oral, 2 TIMES DAILY, First dose on Sun04/03/14 at 0900, Until Discontinued, Routine 0845 (Given - Provid er: Eleonora Song RN) citalopram (CELEXA) tablet 60 mg (CANCELED) 60 mg, oral, DAILY, First dose on Sun04/03/14 at 0900, Until Discontinued, Routine 0846 (Given - Provid er: Eleonora Song RN) folic acid (FOLVITE) tablet 1 mg (CANCELED) 1 mg, oral, DAILY, First dose on Sun04/03/14 at 0330, Until Discontinued, Routine 0350 (Given - Provid er: Navarro Leroy RN) levothyroxine (SYNTHROID) tablet 75 mcg (CANCELED) 75 mcg, oral, DAILY BEFORE BREAKFAST, First dose on Sun04/03/14 at 0700, Until Discontinued, Routine 0632 (Given - Provid er: Navarro Leroy RN) lisinopril (PRINIVIL, ZESTRIL) tablet 10 mg (CANCELED) 10 mg, oral, Once (Without Time Specified), Starting on Sun04/03/14 at 0315, Until Sun04/03/14 at 1734, Routine 0350 (Given - Provid er: Navarro Leroy RN) metoprolol (LOPRESSOR) tablet 25 mg 25 mg, oral, 2 TIMES DAILY, First dose on Sun04/03/14 at 0900, Until Discontinued, Routine 0846 (Given - Provid er: Eleonora Song RN) mometasone-formoterol (DULERA) 100-5 mcg/actuation inhaler 2 Puff (CANCELED) 2 Puff, inhalation, 2 TIMES DAILY, First dose on Sun04/03/14 at 0900, Until Discontinued, Routine 1045 (Given - Provid er: Zahida Melgar, RT) Multivitamins with Minerals tablet 1 Tab (CANCELED) 1 Tablet, oral, DAILY, First dose on Sun04/03/14 at 0900, Until Discontinued, Routine 0845 (Given - Provid er: Eleonora Song RN) ranitidine (ZANTAC) tablet 150 mg (CANCELED) 150 mg, oral, 2 TIMES DAILY, First dose on Sun04/03/14 at 0900, Until Discontinued, Routine 0842 (Given - Provid er: Eleonora Song RN) sodium chloride 0.9 % flush 3 mL (CANCELED) 3 mL, intravenous, EVERY 8 HOURS, First dose on Sun04/03/14 at 0800, Until Discontinued, Routine 0847 (Given - Provid er: Eleonora Song RN) thiamine (VITAMIN B1) tablet 100 mg (CANCELED) 100 mg, oral, DAILY, First dose on Sun04/03/14 at 0330, Until Discontinued, Routine 0350 (Given - Provid er: Navarro Leroy RN) ticagrelor (BRILINTA) tablet 90 mg (CANCELED) 90 mg, oral, 2 TIMES DAILY, First dose on Sun04/03/14 at 0900, Until Discontinued, Routine 0842 (Given - Provid er: Eleonora Song RN) tiotropium (SPIRIVA) 18 mcg inhalation capsule 18 mcg (CANCELED) 18 mcg, inhalation, DAILY, First dose on Sun04/03/14 at 0900, Until Discontinued, Routine 1049 (Given - Provid er: Zahida Melgar, RT) Continuous Medication Order 04/01/2014 04/02/2014 04/03/2014 heparin in 1/2 NS 25,000 unit/250 mL infusion (CANCELED) 15 Units/kg/hr ? 57.6 kg Adjusted weight (rounded to 8.6 mL/hr), intravenous, CONTINUOUS, Starting on Sun04/03/14 at 0330, Until Sun04/03/14 at 1105, Routine 0325 (New Bag - Prov ider: Navarro Leroy RN) PRN Medication Order 04/01/2014 04/02/2014 04/03/2014 acetaminophen (TYLENOL) tablet 650 mg 650 mg, oral, EVERY 4 HOURS PRN, Starting on Sun04/03/14 at 0817, Until Sun04/03/14 at 1734, Pain, Routine 0907 (Given - Provid er: Eleonora Song RN - Comment: chest) aluminum & magnesium hydroxide-simethicone (MYLANTA-DS) 400-400-40 mg/5 mL suspension 15 mL (CANCELED)(Linked Group 1) 15 mL, oral, PRN, Starting on Sun04/03/14 at 0337, Until Sun04/03/14 at 1734, Indigestion, Routine 0346 (Given - Provid er: Navarro Leroy RN) lidocaine (XYLOCAINE) 2 % viscous solution 15 mL (CANCELED)(Linked Group 1) 15 mL, oral, PRN, Starting on Sun04/03/14 at 0337, Until Sun04/03/14 at 1734, Pain, chest pain, Routine 0346 (Given - Provid er: Navarro Leroy RN) morphine injection 2-4 mg (CANCELED) 2-4 mg, intravenous, EVERY 5 MIN PRN, Starting on Sun04/03/14 at 0309, Until Sun04/03/14 at 0856, Pain, Routine 0511 (Given - Provid er: Navarro Leroy RN)0643 (Given - Provider: Navarro Leroy RN) Linked Groups Order Group 1: lidocaine (XYLOCAINE) 2 % viscous solution 15 mL (CANCELED)Jump to med 15 mL, oral, PRN, Starting on Sun04/03/14 at 0337, Until Sun04/03/14 at 1734, Pain, chest pain, Routine And aluminum & magnesium hydroxide-simethicone (MYLANTA-DS) 400-400-40 mg/5 mL suspension 15 mL (CANCELED)Jump to med 15 mL, oral, PRN, Starting on Sun04/03/14 at 0337, Until Sun04/03/14 at 1734, Indigestion, Routine documented in this encounter Orders Medications Ordered That Scott ht Not Have Been Administered Count Last Ordered Date First Ordered Date albuterol (VENTOLIN HFA) inhaler 2 Puff 1 0 04/03/2014 aluminum & magnesium hydroxi de-simethicone (MYLANTA-DS) 400-400-40 mg/5 mL suspension 15 mL 1 04/03/2014 amitriptyline (ELAVIL) tablet 50 mg 1 04/03 heparin 1,000 unit/mL inject ion 2,000 Units 1 04/03/2014 heparin 1,000 unit/mL inject ion 4,000 Units 1 04/03/2014 lidocaine (XYLOCAINE) 2 % vi scous solution 15 mL 1 04/03/2014 nitroGLYCERIN (NITROSTAT) SL tablet 0.4 mg 1 04/03/2014 Nursing Count Last Ordered Date First Orde red Date ACTIVITY INSTRUCTIONS 1 04/03/2014 BATHING INSTRUCTIONS 1 04/03/2014 CONTRAINDICATION TO ANTICOAG ULATION THERAPY 1 04/03/2014 Consult Count Last Ordered Date First Orde red Date CONSULT CASE MANAGEMENT 1 04/03/2014 Respiratory Care Count Last Ordered Date First Ordered Date DRY POWDERED OR METERED DOSE INHALER 2 03/17 Admission Count Last Ordered Date First Orde red Date STATUS: OUTPATIENT OBSERVATION SERVICES 1 0 04/03/2014 Transfer Count Last Ordered Date First Orde red Date NOTIFY PPS OF DISCHARGE COMPLETE 1 04/03/20 14 Discharge Count Last Ordered Date First Orde red Date DISCHARGE PATIENT 1 04/03/2014 Legal Count Last Ordered Date First Orde red Date MISCELLANEOUS DISCHARGE INSTRUCTIONS 2 03/17 documented in this encounter Care Teams Psychiatry Adult Physician Relationship Specialty Start Date End Date Sai Garg MD [address] [place] [phone] PCP - General 01/03/14 11/11/14 documented as of this encounter
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
--- OUTSIDE RECORDS SUMMARY | 2024-04-16 13:57 | XMS_ITS | Encounter Summary ---
Author Organization [facility] Address [address] [place] [address] Care Team Providers Care Regulatory Auditor Name Role Phone Erich Sethi MD Primary Care Provider [phone] Encounter Details Date Type Department Care Team (Latest Contact Info) Description 11/21/2014 12:45 EST - 11/21/2014 23:59 EST Hospital Encounter [facility] [address] [place] [address] Unknown, Provider, Discharge Disposition: Home or Self Care Social [...] Yes 04/03/2014 documented as of this encounter Medications at [...] before breakfast. 30 Tab 0 01/23/2014 03/12/2015 metoprolol (LOPRESSOR) 25 mg tablet Take 1 [...] 01/23/2014 03/12/2015 documented as of this encounter Discharge Disposition Disposition Code Departure Means Destination Home or Self Nursing Home documented in this encounter Plan of Treatment Pending Results Name Type Priority Associated Diagnoses Date /Time OUTSIDE IMAGES - OTHER CHEST Imaging 03/11/2015 21:32 EDT Scheduled Orders Name Type Priority Associated Diagnoses Orde r Schedule OUTSIDE IMAGES - OTHER CHEST Imaging One Time for 1 Occurrences starting 03/11/2015 until 03/11/2015 documented as of this encounter Visit Diagnoses Not on filedocumented in this encounter Care Teams Regulatory Auditor Relationship Specialty Start Date End Date Erich Sethi MD [address] [place] [phone] PCP - General 11/12/14 03/11/15 documented as of this encounter
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
--- OUTSIDE RECORDS SUMMARY | 2024-04-16 13:57 | XMS_ITS | Encounter Summary ---
Author Organization [facility] Address [address] [place] [address] Care Team Providers Care Top Printing Press Operator Name Role Phone Sai Garg MD Primary Care Provi glynn Encounter Details Date Type Department Care Team (Latest Contact Info) Description 06/01/2015 9:19 EDT - 06/01/2015 23:59 EDT Hospital Encounter [facility] [address] [place] [address] Unknown, Provider, Discharge Disposition: Home or Self [...] Yes 03/12/2015 documented as of this encounter Medications at Time of Discharge Medication Sig Dispensed Refills Start Date End Date acetaminophen (TYLENOL) 325 mg tablet Take 2 Tabs by mouth every 6 hours as needed for Pain. 04/03/2014 albuterol 90 mcg/actuation inhaler Inhale 2 Puffs as directed 4 times daily as needed for Wheezing 1 Inhaler 1 03/12/2015 amitriptyline (ELAVIL) 50 mg tablet Take 50 mg by mouth at bedtime. aspirin chewable 81 mg tablet Take 1 Tab by mouth daily. 01/03/2014 citalopram (CELEXA) 20 mg tablet Take 60 mg by mouth daily. folic acid (FOLVITE) 1 mg tablet Take 1 Tab by mouth daily 60 Tab 2 03/12/2015 metoprolol XL (TOPROL-XL) 50 mg tablet Take 1 Tab by mouth daily 60 Tab 1 03/12/2015 mometasone-formoterol (DULERA) 100-5 mcg/actuation Inhale 2 Puffs as directed 2 times daily. 1 Inhaler 0 01/23/2014 Multivitamins with Minerals tablet Take 1 Tab by mouth daily. 30 Tab 0 01/23/2014 nitroGLYCERIN (NITROSTAT) 0.[address] 1 Tab under the tongue every 5 minutes as needed for Chest Pain 15 Tab 0 03/12/2015 thiamine (VITAMIN B1) 100 mg tablet Take 1 Tab by mouth daily 60 Tab 1 03/12/2015 tiotropium (SPIRIVA) 18 mcg inhalation capsule Inhale 1 Cap as directed daily 1 Box 2 03/12/2015 documented as of this encounter Discharge Disposition Disposition Code Departure Means Destination Home or Self Assisted documented in this encounter Plan of Treatment Not on file documented as of this encounter Visit Diagnoses Not on filedocumented in this encounter Care Teams Top Printing Press Operator Relationship Specialty Start Date End Date Sai Garg MD [address] [place] [phone] PCP - General 03/12/15 11/04/19 documented as of this encounter
--- OUTSIDE RECORDS SUMMARY | 2024-04-16 13:57 | XMS_ITS | Encounter Summary ---
Author Organization [facility] Address [address] [place] [address] Care Team Providers Care Roll Shop Supervisor Name Role Phone Erich Sethi MD Primary Care Provider [phone] Encounter Details Date Type Department Care Team (Latest Contact Info) Description 03/11/2015 11:58 EDT - 03/11/2015 23:59 EDT Hospital Encounter [facility] [address] [place] [address] Unknown, Provider, Discharge Disposition: Home or Self [...] Code Departure Means Destination Home or Self Detention documented in this encounter Plan of Treatment Not on file documented as of this encounter Visit Diagnoses Not on filedocumented in this encounter Care Teams Roll Shop Supervisor Relationship Specialty Start Date End Date Erich Sethi MD [address] [place] [phone] PCP - General 11/12/14 03/11/15 documented as of this encounter
--- OUTSIDE RECORDS SUMMARY | 2024-04-16 13:57 | XMS_ITS | Encounter Summary ---
Author Organization [facility] Address [address] [place] [address] Care Team Providers Care Belt Buckle Maker Name Role Phone Erich Sethi MD Primary Care Provider [phone] Sai Garg MD Primary Care Provi glynn Encounter Details Date Type Department Care Team (Late st Contact Info) Description 01/14/2015 Historical Results Only [facility] [place] [address] [place], [place] [address] Sai Garg MD [address] [place] [phone] Social History Tobacco Use Types Packs/Day Years [...] Name Priority Date/Time Associated Diagnosis Comments CT CHEST LOW DOSE LUNG SCREENING 01/14/2015 10:04 EDT documented in this encounter Results * CT CHEST LOW DOSE LUNG SCREENING (01/14/2015 10:04 EDT) Anatomical Region Laterality Modality Chest Other 01/14/2015 10:0 4 EDT Narrative 01/14/2015 11:33 EDT ? EXAM: CAT SCAN/CHEST LOW DOSE LUNG SCREEN EX. D/ (1004) ? CLINICAL INFORMATION: ? 61 PACK YEAR SMOKER, CURRENT SMOKER, ? ASYMPTOMATIC, NO HX LUNG CA, SHARED DECISION W/ ? PROVIDER/ R/O TUMOR ? CHEST WITHOUT CONTRAST 01/14/2015 10:42 AM ? Signs and Symptoms/Comments: ? 61 PACK YEAR SMOKER, CURRENT SMOKER, ASYPTOMATIC, NO HX LUNG CA, ? SHARED DECISION W/PROVIDER/ R/O TUMOR ? Technique: ? A single breath-hold helical CT acquisition was performed through the ? chest on a multidetector-row scanner with a reconstructed slice ? thickness of 3 mm and retrospectively reconstructed 0.9 mm thick ? sections with 0.45 mm overlapping intervals. The scans were obtained ? from the lung apices through the bases without IV contrast. Dose was ? adjusted between 1.0 and 1.5 milliSieverts for low dose screening ? purposes. Scans were reviewed on a dedicated PACS workstation for ? analysis. ? Comparison: ? None. ? Findings: ? Lung Screening Specific (LungRADS): Category 1 (no nodules or ? definitely benign nodules) ? Potentially Significant Incidentals (LungRADS Category S): None. ? Pulmonary Incidentals: Moderately severe emphysema ? Other Incidentals:Coronary atherosclerosis and stents. Upper thoracic ? compression deformities with secondary degenerative ? disease. ? Impression: ? 1. LungRADS category 1 (no nodules or definitely benign nodules): ? 2. LungRADS category S: Negative, no new or potentially significant ?incidental findings requiring urgent additional evaluation. ? 3. Emphysema ? 4. Coronary atherosclerosis ? Recommendations: ? Continued routine annual low dose CT lung screening. Suggest next low ? dose CT exam on or around December 2015. ? This report utilizes the CT Lung Screening Reporting and Data System ? (ACR LungRADS version 1.0) as below: ? Category 0: Incomplete (part or all of lung cannot be evaluated, or ? prior chest CT being located for comparison) ? Category 1: Negative (no nodules or definitely benign nodules) ? Category 2: Benign appearance or behavior (nodules with very low ? likelihood of becoming a clinically active cancer, risk of ? malignancy <1%) ? PAGE 1 ? Signed Report ? (CONTINUED) ? Category 3: Probably benign (probably benign finding - short term ? follow up suggested, risk of malignancy 1-2%) ? Category 4: Suspicious (additional diagnostic testing or tissue ? sampling recommended) ? Modifiers to Categories 1-4: ? Category C: Prior diagnosis of lung cancer returning to screening ? Category S: Potentially significant ancillary finding requiring urgent ? additional evaluation. ? Dictated By: DOMINIC TAYLOR MD ? Signed By: DOMINIC TAYLOR MD 01/14/2015 ? Authenticated By: DOMINIC TAYLOR MD 01/14/2015 ?Reported By: Dominic Taylor MD ? CC: ? Transcribed Date/Time: 01/14/2015 (1133) ? Advertising Operations Coordinator: JENNY ? Printed Date/Time: 02/18/2019 (1035) ? PAGE 2 ? Signed Report ? Procedure Note Dominic Taylor MD - 07/22/2019 EXAM: CAT SCAN/CHEST LOW DOSE LUNG SCREEN EX. D/ (1004) CLINICAL INFORMATION: 61 PACK YEAR SMOKER, CURRENT SMOKER, ASYMPTOMATIC, NO HX LUNG CA, SHARED DECISION W/ PROVIDER/ R/O TUMOR CHEST WITHOUT CONTRAST 01/14/2015 10:42 AM Signs and Symptoms/Comments: 61 PACK YEAR SMOKER, CURRENT SMOKER, ASYPTOMATIC, NO HX LUNG CA, SHARED DECISION W/PROVIDER/ R/O TUMOR Technique: A single breath-hold helical CT acquisition was performed throughthe chest on a multidetector-row scanner with a reconstructed slice thickness of 3 mm and retrospectively reconstructed 0.9 mm thick sections with 0.45 mm overlapping intervals. The scans wereobtained from the lung apices through the bases without IV contrast. Dosewas adjusted between 1.0 and 1.5 milliSieverts for low dose screening purposes. Scans were reviewed on a dedicated PACS workstation for analysis. Comparison: None. Findings: Lung Screening Specific (LungRADS): Category 1 (no nodules or definitely benign nodules) Potentially Significant Incidentals (LungRADS Category S): None. Pulmonary Incidentals: Moderately severe emphysema Other Incidentals:Coronary atherosclerosis and stents. Upperthoracic compression deformities with secondary degenerative disease. Impression: 1. LungRADS category 1 (no nodules or definitely benign nodules): 2. LungRADS category S: Negative, no new or potentially significant incidental findings requiring urgent additional evaluation. 3. Emphysema 4. Coronary atherosclerosis Recommendations: Continued routine annual low dose CT lung screening. Suggest nextlow dose CT exam on or around December 2015. This report utilizes the CT Lung Screening Reporting and DataSystem (ACR LungRADS version 1.0) as below: Category 0: Incomplete (part or all of lung cannot be evaluated, or prior chest CT being located for comparison) Category 1: Negative (no nodules or definitely benign nodules) Category 2: Benign appearance or behavior (nodules with very low likelihood of becoming a clinically active cancer, riskof malignancy <1%) PAGE 1 Signed Report (CONTINUED) Category 3: Probably benign (probably benign finding - short term follow up suggested, risk of malignancy 1-2%) Category 4: Suspicious (additional diagnostic testing or tissue sampling recommended) Modifiers to Categories 1-4: Category C: Prior diagnosis of lung cancer returning to screening Category S: Potentially significant ancillary finding requiringurgent additional evaluation. Dictated By: DOMINIC TAYLOR MD Signed By: DOMINIC TAYLOR MD 01/14/2015 Authenticated By: DOMINIC TAYLOR MD 01/14/2015 Reported By: Dominic Taylor MD CC: Transcribed Date/Time: 01/14/2015 (1765) Advertising Operations Coordinator: JENNY Printed Date/Time: 02/18/2019 (7671) PAGE 2 Signed Report Sai Hernández MD IMG [facility] documented in this encounter Visit Diagnoses Not on filedocumented in this encounter Care Teams Belt Buckle Maker Relationship Specialty Start Date End Date Erich Sethi MD [address] [place] [phone] PCP - General 11/12/14 03/11/15 Sai Garg MD [address] [place] [phone] PCP - General 03/12/15 11/04/19 documented as of this encounter
--- OUTSIDE RECORDS SUMMARY | 2024-04-16 13:57 | XMS_ITS | Encounter Summary ---
Author Organization [facility] Address [address] [place] [address] Care Team Providers Care Health Information Clerk Name Role Phone Erich Sethi MD Primary Care Provider [phone] Sai Garg MD Primary Care Provi glynn Encounter Details Date Type Department Care Team (Late st Contact Info) Description 03/11/2015 Historical Results Only [facility] Radiology Results [address] [place] [address] Fredo Moffett MD [address] [place] [address] Social History Tobacco Use Types Packs/Day Years [...] Associated Diagnosis Comments XR CHEST 1 VIEW 03/11/2015 18:41 EDT documented in this encounter Results * XR CHEST 1 VIEW (03/11/2015 18:41 EDT) Anatomical Region Laterality Modality Other 03/11/2015 18:4 1 EDT Narrative 03/11/2015 18:41 EDT ? EXAM: RADIOLOGY/CHEST-PORTABLE ?EX. D/ (1822) ? CLINICAL INFORMATION: ? CP ? EXAM: ? XR Chest, 1 View. ? CLINICAL HISTORY: ? The patient is a 59 years ??male; Chest pain. ??03/11/2015 6:13 PM ? TECHNIQUE: ? Frontal view of the chest. ? COMPARISON: ? CR - XR CHEST 11/28/2014 12:01:54 PM ? FINDINGS: ? Lungs: ??The lungs are hyperinflated, consistent with underlying ? small airways disease.There are no focal air space opacities. ? Pleural spaces: ??Unremarkable. ??No pneumothorax. ? Heart: ??Unremarkable. ??No cardiomegaly. ? Mediastinum: ??Unremarkable. ? Bones/joints: ??Unremarkable. ? IMPRESSION: ? COPD. ??No acute findings. ? There has been no significant change in comparison to the prior ? examination. ? REPORT SIGNED IN OTHER VENDOR SYSTEM 03/11/2015 ?Reported By: Iman Grigsby MD ? CC: ? Transcribed Date/Time: 03/11/2015 (1840) ? Senior Clerk: ? Printed Date/Time: 02/24/2019 (1912) ? PAGE 1 ? Signed Report ? Procedure Note Iman Grigsby - 07/22/2019 EXAM: RADIOLOGY/CHEST-PORTABLE EX. D/ (182) CLINICAL INFORMATION: CP EXAM: XR Chest, 1 View. CLINICAL HISTORY: The patient is a 59 years male; Chest pain. 03/11/2015 6:13 PM TECHNIQUE: Frontal view of the chest. COMPARISON: CR - XR CHEST 11/28/2014 12:01:54 PM FINDINGS: Lungs: The lungs are hyperinflated, consistent with underlying small airways disease.There are no focal air space opacities. Pleural spaces: Unremarkable. No pneumothorax. Heart: Unremarkable. No cardiomegaly. Mediastinum: Unremarkable. Bones/joints: Unremarkable. IMPRESSION: COPD. No acute findings. There has been no significant change in comparison to the prior examination. REPORT SIGNED IN OTHER VENDOR SYSTEM 03/11/2015 Reported By: Iman Grigsby MD CC: Transcribed Date/Time: 03/11/2015 (1840) Senior Clerk: Printed Date/Time: 02/24/2019 (1912) PAGE 1 Signed Report Fredo Moffett MD IMG DIAGNOSTIC IMAGI NG ORDERABLES documented in this encounter Visit Diagnoses Not on filedocumented in this encounter Care Teams Health Information Clerk Relationship Specialty Start Date End Date Erich Sethi MD [address] [place] [phone] PCP - General 11/12/14 03/11/15 Sai Garg MD [address] [place] [phone] PCP - General 03/12/15 11/04/19 documented as of this encounter
--- OUTSIDE RECORDS SUMMARY | 2024-04-16 13:57 | XMS_ITS | Encounter Summary ---
Author Organization [facility] Address [address] [place] [address] Care Team Providers Care Real Estate Office Supervisor Name Role Phone Erich Sethi MD Primary Care Provider [phone] Sai Garg MD Primary Care Provi glynn Encounter Details Date Type Department Care Team (Late st Contact Info) Description 11/28/2014 Historical Results Only [facility] [place] Radiology Results [address] [place] [address] Bhavesh Chi MD [address] [place] [phone] Social History Tobacco Use Types [...] Priority Date/Time Associated Diagnosis Comments XR CHEST 2 VIEWS 11/28/2014 12:2 1 EDT documented in this encounter Results * XR CHEST 2 VIEWS (11/28/2014 12:21 EDT) Anatomical Region Laterality Modality Other 11/28/2014 12:2 1 EDT Narrative 11/28/2014 12:26 EDT ? EXAM: RADIOLOGY/CHEST (PA ?? LAT) ?EX. D/ (1159) ? CLINICAL INFORMATION: ? CP ? CHEST (PA ?? LAT) ? Signs and Symptoms/Comments: ??Chest pain ? Comparisons: 11/21/2014, 04/02/2014. ? Findings: ? AP and lateral views of the chest were performed. Multiple leads ? project over the chest. The lungs remain hyperinflated but clear. No ? pneumothorax or pleural effusion is present. A coronary artery stent ? is present. The cardiomediastinal silhouette and pulmonary ? vascularity are otherwise unremarkable. The osseous structures are ? unremarkable. ? IMPRESSION: ? 1. No acute chest findings. ? 2. Coronary artery stent. ? REPORT SIGNED IN OTHER VENDOR SYSTEM 11/28/2014 ?Reported By: Juliocesar Keller MD ? CC: ? Transcribed Date/Time: 11/28/2014 (1226) ? Major Assembly Lineman: ? Printed Date/Time: 02/18/2019 (1396) ? PAGE 1 ? Signed Report ? Procedure Note Juliocesar Keller MD - 07/22/2019 EXAM: RADIOLOGY/CHEST (PA LAT) EX. D/ (1159) CLINICAL INFORMATION: CP CHEST (PA LAT) Signs and Symptoms/Comments: Chest pain Comparisons: 11/21/2014, 04/02/2014. Findings: AP and lateral views of the chest were performed. Multiple leads project over the chest. The lungs remain hyperinflated but clear.No pneumothorax or pleural effusion is present. A coronary arterystent is present. The cardiomediastinal silhouette and pulmonary vascularity are otherwise unremarkable. The osseous structures are unremarkable. IMPRESSION: 1. No acute chest findings. 2. Coronary artery stent. REPORT SIGNED IN OTHER VENDOR SYSTEM 11/28/2014 Reported By: Juliocesar Keller MD CC: Transcribed Date/Time: 11/28/2014 (1226) Major Assembly Lineman: Printed Date/Time: 02/18/2019 (4976) PAGE 1 Signed Report Bhavesh Chi MD IMG DIAGNOSTIC I MAGING ORDERABLES documented in this encounter Visit Diagnoses Not on filedocumented in this encounter Care Teams Real Estate Office Supervisor Relationship Specialty Start Date End Date Erich Sethi MD [address] [place] [address] [phone] PCP - General 11/12/14 03/11/15 Sai Garg MD [address] [place] [phone] PCP - General 03/12/15 11/04/19 documented as of this encounter
--- OUTSIDE RECORDS SUMMARY | 2024-04-16 13:57 | XMS_ITS | Encounter Summary ---
Author Organization [facility] Address [address] [place] [address] Care Team Providers Care Tester Regulator Name Role Phone Sai Garg MD Primary Care Provi glynn Encounter Details Date Type Department Care Team (Late st Contact Info) Description 04/08/2015 Historical Results Only [facility] Radiology Results [address] [place] [address] Marcelino Riojas MD [address] [place] [address] Social History Tobacco Use Types [...] Name Priority Date/Time Associated Diagnosis Comments XR FOREARM RIGHT 2 VIEWS 04/08/2015 20:21 EDT XR ELBOW RIGHT 3 OR MORE VIEWS 04/08/2015 20:21 EDT XR CHEST 2 VIEWS 04/08/2015 20:[address] CERVICAL SPINE WO CONTRAST 04/08/2015 19:[address] HEAD WO CONTRAST 04/08/2015 1 9:46 EDT documented in this encounter Results * XR FOREARM RIGHT 2 VIEWS (04/08/2015 20:21 EDT) Anatomical Region Laterality Modality Upper Extremities Right Other 04/08/2015 20:2 1 EDT Narrative 04/08/2015 20:21 EDT ? EXAM: RADIOLOGY/FOREARM-RIGHT- 2 VIEW ? EX. D/ (1939) ? CLINICAL INFORMATION: ? POSSIBLE TRAUMA, SWOLLEN, TENDER. ? EXAM: ? XR Right Forearm, 2 Views. ? CLINICAL HISTORY: ? The patient is a 59 years ??male; Possible trauma, ?? ETOH. ? 04/08/2015 5:36 PM ? TECHNIQUE: ? Frontal and lateral views of the right forearm. ? COMPARISON: ? CR - XR ELBOW RIGHT 04/08/2015 7:29:02 PM ? FINDINGS: ? Bones: ??Unremarkable. ??No acute fracture. ? Joints: ??Unremarkable. ??No dislocation. ? Soft tissues: ??Unremarkable. ? IMPRESSION: ? Normal right forearm. ? REPORT SIGNED IN OTHER VENDOR SYSTEM 04/08/2015 ?Reported By: Iman Grigsby MD ? CC: ? Transcribed Date/Time: 04/08/2015 (2020) ? Pecan Sheller: ? Printed Date/Time: 02/24/2019 (1913) ? PAGE 1 ? Signed Report ? Procedure Note Iman Grigsby - 07/22/2019 EXAM: RADIOLOGY/FOREARM-RIGHT- 2 VIEW EX. D/ (1939) CLINICAL INFORMATION: POSSIBLE TRAUMA, SWOLLEN, TENDER. EXAM: XR Right Forearm, 2 Views. CLINICAL HISTORY: The patient is a 59 years male; Possible trauma, ETOH. 04/08/2015 5:36 PM TECHNIQUE: Frontal and lateral views of the right forearm. COMPARISON: CR - XR ELBOW RIGHT 04/08/2015 7:29:02 PM FINDINGS: Bones: Unremarkable. No acute fracture. Joints: Unremarkable. No dislocation. Soft tissues: Unremarkable. IMPRESSION: Normal right forearm. REPORT SIGNED IN OTHER VENDOR SYSTEM 04/08/2015 Reported By: Iman Grigsby MD CC: Transcribed Date/Time: 04/08/2015 (2020) Pecan Sheller: Printed Date/Time: 02/24/2019 (1913) PAGE 1 Signed Report Marcelino Riojas MD IMG DIAGNOSTIC IMAG ING ORDERABLES * XR ELBOW RIGHT 3 OR MORE VIEWS (04/08/2015 20:21 EDT) Anatomical Region Laterality Modality Upper Extremities Right Other 04/08/2015 20:2 1 EDT Narrative 04/08/2015 20:21 EDT ? EXAM: RADIOLOGY/ELBOW-RIGHT 3+VIEW ?EX. D/ (1939) ? CLINICAL INFORMATION: ? RIGHT ARM SWELLING, WEAKNESS. ? EXAM: ? XR Right Elbow Complete, 3 or More Views. ? CLINICAL HISTORY: ? The patient is a 59 years ??male; Possible trauma, ?? ETOH. ? 04/08/2015 5:36 PM ? TECHNIQUE: ? Frontal, lateral and oblique views of the right elbow. ? COMPARISON: ? CR - XR FOREARM RIGHT 04/08/2015 7:32:32 PM ? FINDINGS: ? Bones: ??Unremarkable. ??No acute fracture. ? Joints: ??Unremarkable. ??No dislocation. ? Soft tissues: ??Unremarkable. ? IMPRESSION: ? Normal right elbow. ? REPORT SIGNED IN OTHER VENDOR SYSTEM 04/08/2015 ?Reported By: Iman Grigsby MD ? CC: ? Transcribed Date/Time: 04/08/2015 (2020) ? Pecan Sheller: ? Printed Date/Time: 02/24/2019 (1913) ? PAGE 1 ? Signed Report ? Procedure Note Iman Grigsby - 11/05/2019 EXAM: RADIOLOGY/ELBOW-RIGHT 3+VIEW EX. D/ (1939) CLINICAL INFORMATION: RIGHT ARM SWELLING, WEAKNESS. EXAM: XR Right Elbow Complete, 3 or More Views. CLINICAL HISTORY: The patient is a 59 years male; Possible trauma, ETOH. 04/08/2015 5:36 PM TECHNIQUE: Frontal, lateral and oblique views of the right elbow. COMPARISON: CR - XR FOREARM RIGHT 04/08/2015 7:32:32 PM FINDINGS: Bones: Unremarkable. No acute fracture. Joints: Unremarkable. No dislocation. Soft tissues: Unremarkable. IMPRESSION: Normal right elbow. REPORT SIGNED IN OTHER VENDOR SYSTEM 04/08/2015 Reported By: Iman Grigsby MD CC: Transcribed Date/Time: 04/08/2015 (2020) Pecan Sheller: Printed Date/Time: 02/24/2019 (1912) PAGE 1 Signed Report Marcelino Josue Riojas MD IMG DIAGNOSTIC IMAG ING ORDERABLES * XR CHEST 2 VIEWS (04/08/2015 20:20 EDT) Anatomical Region Laterality Modality Other 04/08/2015 20:2 0 EDT Narrative 04/08/2015 20:20 EDT ? EXAM: RADIOLOGY/CHEST (PA ?? LAT) ?EX. D/ (1939) ? CLINICAL INFORMATION: ? COUGH, CHRONIC ALCOHOLIC, WEAKNESS ? EXAM: ? XR Chest, 2 Views. ? CLINICAL HISTORY: ? The patient is a 59 years ??male; Possible trauma, ?ETOH. ? 04/08/2015 5:36 PM ? TECHNIQUE: ? Frontal and lateral views of the chest. ? COMPARISON: ? CR - XR CHEST 03/11/2015 6:19:36 PM ? FINDINGS: ? Lungs: ??The lungs are hyperinflated, consistent with underlying ? small airways disease. ? Pleural spaces: ??Unremarkable. ??No pneumothorax. ? Heart: ??Unremarkable. ??No cardiomegaly. ? Mediastinum: ??Unremarkable. ? Bones/joints: ??There is an expected degree of age-appropriate ? skeletal degenerative changes.There is no evidence of acute ? fracture. ? IMPRESSION: ? COPD.No evidence of an acute abnormality. ? Remainder of findings as described above. ? REPORT SIGNED IN OTHER VENDOR SYSTEM 04/08/2015 ?Reported By: Iman Grigsby MD ? CC: ? Transcribed Date/Time: 04/08/2015 (2019) ? Pecan Sheller: HIS.VRAD ? Printed Date/Time: 02/24/2019 (1914) ? PAGE 1 ? Signed Report ? Procedure Note Iman Grigsby - 07/22/2019 EXAM: RADIOLOGY/CHEST (PA LAT) EX. D/ (1939) CLINICAL INFORMATION: COUGH, CHRONIC ALCOHOLIC, WEAKNESS EXAM: XR Chest, 2 Views. CLINICAL HISTORY: The patient is a 59 years male; Possible trauma, ETOH. 04/08/2015 5:36 PM TECHNIQUE: Frontal and lateral views of the chest. COMPARISON: CR - XR CHEST 03/11/2015 6:19:36 PM FINDINGS: Lungs: The lungs are hyperinflated, consistent with underlying small airways disease. Pleural spaces: Unremarkable. No pneumothorax. Heart: Unremarkable. No cardiomegaly. Mediastinum: Unremarkable. Bones/joints: There is an expected degree of age-appropriate skeletal degenerative changes.There is no evidence of acute fracture. IMPRESSION: COPD.No evidence of an acute abnormality. Remainder of findings as described above. REPORT SIGNED IN OTHER VENDOR SYSTEM 04/08/2015 Reported By: Iman Grigsby MD CC: Transcribed Date/Time: 04/08/2015 (2019) Pecan Sheller: Printed Date/Time: 02/24/2019 (1614) PAGE 1 Signed Report Marcelino Riojas MD IMG DIAGNOSTIC IMAG ING ORDERABLES * CT CERVICAL SPINE WO CONTRAST (04/08/2015 19:50 EDT) Anatomical Region Laterality Modality Other 04/08/2015 19:5 0 EDT Narrative 04/08/2015 19:50 EDT ? EXAM: CAT SCAN/CERVICAL SPINE WITHOUT CON EX. D/ (1926) ? CLINICAL INFORMATION: ? INTOXICATED, POSSIBLE TRAUMA, ALTERED. ? EXAM: ? CT Cervical Spine Without Intravenous Contrast. ? CLINICAL HISTORY: ? The patient is a 59 years ??male; Altered. ?? Possible trauma ? 04/08/2015 5:49 PM ? TECHNIQUE: ? Axial computed tomography images of the cervical spine without ? intravenous contrast. ? Coronal and sagittal reformatted images were created and ? reviewed. ? COMPARISON: ? RF SPINE 07/13/2011 10:05:47 AM ? FINDINGS: ? Vertebrae: ??No acute fracture. ??Normal alignment.The facet ? joints demonstrate moderate degenerative narrowing and sclerosis. ? Discs/spinal canal/neural foramina: There is disc space ? narrowing with vacuum discs at C5-6 and C6-7. ??This is ? associated with endplate sclerosis and marginal osteophytes. ??No ? spinal canal stenosis. ? Soft tissues: ??The prevertebral soft tissues are normal. ? Vasculature: ??There is moderate atherosclerotic calcification of ? the carotid arteries. ? Lung apices: ??Sections through the lung apices demonstrate ? moderate centrilobular emphysema. ? IMPRESSION: ? 1. No evidence of fracture or dislocation. ? 2. Degenerative disc disease at C5-6 and C6-7. ? Remainder of findings as described above. ? REPORT SIGNED IN OTHER VENDOR SYSTEM 04/08/2015 ?Reported By: Iman Grigsby MD ? CC: ? Transcribed Date/Time: 04/08/2015 (1950) ? Pecan Sheller: [facility] ? Printed Date/Time: 02/24/2019 (191) ? PAGE 1 ? Signed Report ? Procedure Note Iman Grigsby - 07/22/2019 EXAM: CAT SCAN/CERVICAL SPINE WITHOUT CON EX. D/ (1927) CLINICAL INFORMATION: INTOXICATED, POSSIBLE TRAUMA, ALTERED. EXAM: CT Cervical Spine Without Intravenous Contrast. CLINICAL HISTORY: The patient is a 59 years male; Altered. Possible trauma 04/08/2015 5:49 PM TECHNIQUE: Axial computed tomography images of the cervical spine without intravenous contrast. Coronal and sagittal reformatted images were created and reviewed. COMPARISON: RF SPINE 07/13/2011 10:05:47 AM FINDINGS: Vertebrae: No acute fracture. Normal alignment.The facet joints demonstrate moderate degenerative narrowing and sclerosis. Discs/spinal canal/neural foramina: There is disc space narrowing with vacuum discs at C5-6 and C6-7. This is associated with endplate sclerosis and marginal osteophytes. No spinal canal stenosis. Soft tissues: The prevertebral soft tissues are normal. Vasculature: There is moderate atherosclerotic calcification of the carotid arteries. Lung apices: Sections through the lung apices demonstrate moderate centrilobular emphysema. IMPRESSION: 1. No evidence of fracture or dislocation. 2. Degenerative disc disease at C5-6 and C6-7. Remainder of findings as described above. REPORT SIGNED IN OTHER VENDOR SYSTEM 04/08/2015 Reported By: Iman Grigsby MD CC: Transcribed Date/Time: 04/08/2015 (1950) Pecan Sheller: Printed Date/Time: 02/24/2019 (191) PAGE 1 Signed Report Marcelino Riojas MD IMG CT ORDERABLES * CT HEAD WO CONTRAST (04/08/2015 19:46 EDT) Anatomical Region Laterality Modality Head Other 04/08/2015 19:4 6 EDT Narrative 04/08/2015 19:46 EDT ? EXAM: CAT SCAN/HEAD WITHOUT CONTRAST ?EX. D/ (1926) ? CLINICAL INFORMATION: ? ALTERED, POSSIBLE TRAUMA ? EXAM: ? CT Head Without Intravenous Contrast. ? CLINICAL HISTORY: ? The patient is a 59 years ??male; Altered. ?? Possible trauma ? 04/08/2015 5:49 PM ? TECHNIQUE: ? Axial computed tomography images of the head/brain without ? intravenous contrast. ? Coronal reformatted images were created and reviewed. ? COMPARISON: ? CT BRAIN 04/03/2013 11:32:27 AM ? FINDINGS: ? Hemorrhage: ??No intracranial hemorrhage. ? Brain: ??There is diffuse cerebral atrophy present, consistent ? with this patient's age.There is mild diffuse heterogeneity of ? the white matter attenuation, this change is nonspecific but is ? likely secondary to chronic ischemia within microvascular ? distributions. ??There is a small focus of encephalomalacia in ? the right frontal lobe which is stable. ? Ventricles: ??Unremarkable. ??No ventriculomegaly. ? Bones: ??There is deformity of the nasal bones which is stable ? consistent with old fracture. ??No calvarial fracture. ? Sinuses: ??There is marked mucoperiosteal thickening in the right ? frontal sinus.There is mild mucoperiosteal thickening in the ? ethmoid sinuses.No air-fluid levels are identified. ? Mastoid air cells: ??Unremarkable as visualized. ??No mastoid ? effusion. ? IMPRESSION: ? 1. No evidence of intracranial hemorrhage or calvarial fracture. ? 2. Sinus disease. ? Remainder of findings as described above. ? REPORT SIGNED IN OTHER VENDOR SYSTEM 04/08/2015 ?Reported By: Iman Grigsby MD ? CC: ? Transcribed Date/Time: 04/08/2015 (194) ? Pecan Sheller: ? Printed Date/Time: 02/24/2019 (191) ? PAGE 1 ? Signed Report ? Procedure Note Iman Grigsby - 07/22/2019 EXAM: CAT SCAN/HEAD WITHOUT CONTRAST EX. D/ (1927) CLINICAL INFORMATION: ALTERED, POSSIBLE TRAUMA EXAM: CT Head Without Intravenous Contrast. CLINICAL HISTORY: The patient is a 59 years male; Altered. Possible trauma 04/08/2015 5:49 PM TECHNIQUE: Axial computed tomography images of the head/brain without intravenous contrast. Coronal reformatted images were created and reviewed. COMPARISON: CT BRAIN 04/03/2013 11:32:27 AM FINDINGS: Hemorrhage: No intracranial hemorrhage. Brain: There is diffuse cerebral atrophy present, consistent with this patient's age.There is mild diffuse heterogeneity of the white matter attenuation, this change is nonspecific but is likely secondary to chronic ischemia within microvascular distributions. There is a small focus of encephalomalacia in the right frontal lobe which is stable. Ventricles: Unremarkable. No ventriculomegaly. Bones: There is deformity of the nasal bones which is stable consistent with old fracture. No calvarial fracture. Sinuses: There is marked mucoperiosteal thickening in the right frontal sinus.There is mild mucoperiosteal thickening in the ethmoid sinuses.No air-fluid levels are identified. Mastoid air cells: Unremarkable as visualized. No mastoid effusion. IMPRESSION: 1. No evidence of intracranial hemorrhage or calvarial fracture. 2. Sinus disease. Remainder of findings as described above. REPORT SIGNED IN OTHER VENDOR SYSTEM 04/08/2015 Reported By: Iman Grigsby MD CC: Transcribed Date/Time: 04/08/2015 (1945) Pecan Sheller: Printed Date/Time: 02/24/2019 (191) PAGE 1 Signed Report Marcelino Josue Riojas MD IMG CT ORDERABLES documented in this encounter Visit Diagnoses Not on filedocumented in this encounter Care Teams Tester Regulator Relationship Specialty Start Date End Date Sai Garg MD [address] [place] [address] [phone] PCP - General 03/12/15 11/04/19 documented as of this encounter
--- OUTSIDE RECORDS SUMMARY | 2024-04-16 13:57 | XMS_ITS | Referral Summary ---
Author Organization [facility] Address [address] [place] [address] Care Team Providers Care Suction Worker Name Role Phone Unavailable Primary Care Provider Unavailabl e Allergies Active Allergy Reactions Criticality Noted Date Comments Carbamazepine Hives 11/13/2009 Medications Medication Sig Dispensed Refills Start Date End Date Status amitriptyline (ELAVIL) 50 mg tablet Take 50 mg by mouth at bedtime. Active citalopram (CELEXA) 20 mg tablet Take 60 mg by mouth daily. Active aspirin chewable 81 mg tablet Take 1 Tab by mouth daily. 01/03/2014 Active mometasone-formotero l (DULERA) 100-5 mcg/actuation Inhale 2 Puffs as directed 2 times daily. 1 Inhaler 0 01/23/2014 Active Multivitamins with Minerals tablet Take 1 Tab by mouth daily. 30 Tab 0 01/23/2014 Active acetaminophen (TYLENOL) 325 mg tablet Take 2 Tabs by mouth every 6 hours as needed for Pain. 04/03/2014 Active tiotropium (SPIRIVA) 18 mcg inhalation capsule Inhale 1 Cap as directed daily 1 Box 2 03/12/2015 Active albuterol 90 mcg/actuation inhaler Inhale 2 Puffs as directed 4 times daily as needed for Wheezing 1 Inhaler 1 03/12/2015 Active nitroGLYCERIN (NITROSTAT) 0.[address] 1 Tab under the tongue every 5 minutes as needed for Chest Pain 15 Tab 0 03/12/2015 Active metoprolol XL (TOPROL-XL) 50 mg tablet Take 1 Tab by mouth daily 60 Tab 1 03/12/2015 Active thiamine (VITAMIN B1) 100 mg tablet Take 1 Tab by mouth daily 60 Tab 1 03/12/2015 Active folic acid (FOLVITE) 1 mg tablet Take 1 Tab by mouth daily 60 Tab 2 03/12/2015 Active Active Problems Patient Care Coordination No te Formatting of this note migh t be different from the original. Patient no showed his new patient appointment on February 24. Sent letter. Letter was returned due to :return to sender, no mail receptacle, unable to forward Problem Noted Date Diagnosed Date Hypothyroidism 02/23/2015 Depression 02/23/2015 Overview: bipolar GERD (gastroesophageal reflux disease) 5 Seizures ([facility]) 02/23/2015 NSTEMI (non-ST elevated myocardial infarction) ( [facility]) 01/20/2014 ETOH abuse 01/20/2014 NSTEMI (non-ST elevated myocardial infarction) ( [facility]) 01/02/2014 Chronic right shoulder pain 07/21/2012 Cervical spondylosis 07/21/2012 Abnormal cardiovascular stress test 11/13/2009 Chest pain 11/13/2009 Confusion 11/13/2009 Hypertensive disorder 11/13/2009 Hyperlipidemia 11/13/2009 Immunizations Name Administration Dates Next Due Pneumococcal Polysaccharide (PPSV23) Vaccine (PNEUMOVAX-23) =>2YO SQ/IM 04/03/2014 Social History Tobacco Use Types Packs/Day Years [...] Sign Reading Time Taken Comments Blood Pressure 160/80 03/12/2015 1314 EDT Pulse 67 04/03/2014 1016 EDT Temperature 36.5 ??C (97.7 ??F) 03/12/2015 1314 EDT Respiratory Rate 18 03/12/2015 1314 EDT Oxygen Saturation 99% 03/12/2015 1326 EDT Inhaled Oxygen Concentration - - Weight 56.7 kg (125 lb 1.6 oz) 03/12/2015 1043 E DT Height 182.9 cm (6') 03/12/2015 1043 EDT Body Mass Index 16.97 03/12/2015 1043 EDT Functional Status Functional Status Response Date of [...] (5 years old or older) Yes 03/12/2015 Plan of Treatment Not on file Procedures Procedure Name Priority Date/Time Associated Diagnosis Comments DRUG SCREEN 6 Routine 04/03/2014 10:12 EDT LIPID PROFILE (INCLUDES CHOLESTEROL, TRIGLYCERIDES, HDL, LDL) Routine 01/19/2014 5:40 EDT from Last 3 Months or Most Recently Relevant to Health Maintenance Results * DRUG SCREEN 6 (04/03/2014 10:12 EDT) Amphetamine Screen, Urine Negative screen. [facility] Comment: Confirmation testing available upon request. Suitable for medical purposes only. Will not detect all drugs within class. Cutoff = 1000 ng/ml Specimen type is urine. Barbiturate Screen, Urine Negative screen. [facility] Comment: Confirmation testing available upon request. Suitable for medical purposes only. Will not detect all drugs within class. Cutoff = 300 ng/ml Specimen type is urine. Benzodiazepine Screen, Urine Presumptive positive, interpret with caution. [facility] Comment: Confirmation testing available upon request. Suitable for medical purposes only. Will not detect all drugs within class. Assay less sensitive to Lorazepam and metabolites. Cutoff = 200 ng/ml Specimen type is urine. Cannabinoid Scrn, Ur Presumptive positive, interpret with caution. [facility] Comment: Confirmation testing available upon request. Suitable for medical purposes only. Will not detect all drugs within class. Cutoff = 50 ng/ml Specimen type is urine. Opiate Scrn, Ur Presumptive positive, interpret with caution. [facility] Comment: Confirmation testing available upon request. Suitable for medical purposes only. Will not detect all drugs within class. Cutoff = 300 ng/ml Assay less sensitive to oxycodone and metabolites. Assay does not detect methadone. Specimen type is urine. Cocaine Metabolites, Ur Negative screen. [facility] Comment: Confirmation testing available upon request. Suitable for medical purposes only. Will not detect all drugs within class. Cutoff = 300 ng/ml Specimen type is urine. Urine specimen (specimen) URINE / Unknown 04/03/2014 10:12 EDT 04/03/2014 10:23 EDT Erich Delgado MD URINALYSIS ORDERABLE S Performing Organization Address [facility] de Phone Number [facility] [address] [place] [address] * LIPID PROFILE (INCLUDES CHOLESTEROL, TRIGLYCERIDES, HDL, LDL) (01/19/2014 5:40 EDT) Cholesterol 162 mg/dl [facility] Comment: Desirable:<200 Borderline High:200-239 High:>ci=150 Triglycerides 89 mg/dl [facility] Comment: Normal:<150 Borderline High:150-199 High:200-499 Very High:>rq=680 HDL 102 mg/dl [facility] Comment: Low:<40 Normal:40-60 Desirable: >60 LDL, Calculated 42 mg/dl [facility] Comment: Optimal:<100 Near Optimal:100-129 Borderline High:130-159 High:160-189 Very High:>eb=341 Chol/HDL Ratio 1.6 [facility] Fasting? Unknown [facility] Non HDL Cholesterol 60 mg/dl [facility] Comment: Desirable:<130 Borderline:130-159 High: 160-189 Very High: >nd=398 Blood specimen (specimen) 01/19/2014 5:40 EDT 01/19/2014 5:55 EDT Sridevi Alvarez MD CHEMISTRY & BLOOD GA S ORDERABLES Performing Organization Address [facility] de Phone Number [facility] [address] [place] [address] from Last 3 Months or Most Recently Relevant to Health Maintenance Advance Directives For more information, please contact: [phone] * Full Code (Latest Code Status on File) Date Activated Date Inactivated Comments 03/12/2015 10:50 03/12/2015 17:04 Question Answer Comments Reason for decision includes: Other (Specify in Comments) Who participated in the discussion? Other (Speci fy in Comments) * Full Code Date Activated Date Inactivated Comments 04/03/2014 3:13 04/03/2014 17:34 * Full Code Date Activated Date Inactivated Comments 01/18/2014 0:43 01/23/2014 20:23 * Full Code Date Activated Date Inactivated Comments 01/02/2014 15:06 01/03/2014 16:08 * Full Code Date Activated Date Inactivated Comments 01/02/2014 14:08 01/02/2014 15:06
--- OUTSIDE RECORDS SUMMARY | 2024-04-16 13:57 | XMS_ITS | Encounter Summary ---
Author Organization [facility] Address [address] [place] [address] Care Team Providers Care Sports Team Manager Name Role Phone Sai Garg MD Primary Care Provi glynn Encounter Details Date Type Department Care Team (Late st Contact Info) Description 05/21/2015 Historical Results Only [facility] Radiology Results [address] [place] [address] Bhavesh Chi MD [address] [place] [address] Social History Tobacco Use Types [...] Associated Diagnosis Comments XR CHEST 1 VIEW 05/21/2015 12:01 EDT documented in this encounter Results * XR CHEST 1 VIEW (05/21/2015 12:01 EDT) Anatomical Region Laterality Modality Other 05/21/2015 12:0 1 EDT Narrative 05/21/2015 12:08 EDT ? EXAM: RADIOLOGY/CHEST-PORTABLE ?EX. D/ (1109) ? CLINICAL INFORMATION: ? SOB ? CHEST-PORTABLE ??05/21/2015 10:55 AM ? Clinical History/Comments: Detox, shortness of breath. ? Comparison: Chest CT 05/08/2015 and chest x-ray 04/19/2015 ? Findings: An upright portable AP view of the chest was obtained. ? There are are ill-defined airspace opacities within the peripheral ? aspects of the mid and lower portions of the right lung, new relative ? to the examination performed 04/19/2015. The lungs appear ? hyperinflated, consistent with emphysema seen on comparison CT. The ? cardiac silhouette is normal in size. The bones are unremarkable for ? age. ? Impression: ? 1. Ill-defined airspace opacities within the peripheral aspects of ? the mid and lower portions of the right lung. These findings are new ? relative to the examination performed 04/19/2015, and are concerning ? for pneumonia. Followup radiographs are recommended in 4-6 weeks in ? order to ensure resolution. ? 2. Emphysema. ? REPORT SIGNED IN OTHER VENDOR SYSTEM 05/21/2015 ?Reported By: Sai Lo MD ? CC: ? Transcribed Date/Time: 05/21/2015 (1208) ? Director Of Retail Marketing: ? Printed Date/Time: 02/25/2019 (1113) ? PAGE 1 ? Signed Report ? Procedure Note Sai Lo MD - 07/22/2019 EXAM: RADIOLOGY/CHEST-PORTABLE EX. D/ (1109) CLINICAL INFORMATION: SOB CHEST-PORTABLE 05/21/2015 10:55 AM Clinical History/Comments: Detox, shortness of breath. Comparison: Chest CT 05/08/2015 and chest x-ray 04/19/2015 Findings: An upright portable AP view of the chest was obtained. There are are ill-defined airspace opacities within the peripheral aspects of the mid and lower portions of the right lung, newrelative to the examination performed 04/19/2015. The lungs appear hyperinflated, consistent with emphysema seen on comparison CT. The cardiac silhouette is normal in size. The bones are unremarkablefor age. Impression: 1. Ill-defined airspace opacities within the peripheral aspects of the mid and lower portions of the right lung. These findings arenew relative to the examination performed 04/19/2015, and are concerning for pneumonia. Followup radiographs are recommended in 4-6 weeks in order to ensure resolution. 2. Emphysema. REPORT SIGNED IN OTHER VENDOR SYSTEM 05/21/2015 Reported By: Sai Lo MD CC: Transcribed Date/Time: 05/21/2015 (1208) Director Of Retail Marketing: Printed Date/Time: 02/25/2019 (0606) PAGE 1 Signed Report Bhavesh Chi MD IMG DIAGNOSTIC I MAGING ORDERABLES documented in this encounter Visit Diagnoses Not on filedocumented in this encounter Care Teams Sports Team Manager Relationship Specialty Start Date End Date Sai Garg MD [address] [place] [address] [phone] PCP - General 03/12/15 11/04/19 documented as of this encounter
--- OUTSIDE RECORDS SUMMARY | 2024-04-16 13:57 | XMS_ITS | Encounter Summary ---
Author Organization [facility] Address [address] [place] [address] Care Team Providers Care Senior Medical Writer Name Role Phone Sai Garg MD Primary Care Provi glynn Reason for Referral * Follow Up (Routine) - Closed Specialty Diagnoses / Procedures Referred By Contabida connelly Referred To Contact Diagnoses Chest pain Yanely Beckman MD [address] [employer] [address] [place] [phone] Referral ID Status Reason Start Date Expiration Date V isits Requested Visits Authorized [id number] Closed Continuity of Care 03/12/2015 1 1 Question Answer Reason for Request: f/u 2 weeks Encounter Details Date Type Department Care Team (Late st Contact Info) Description 03/12/2015 10:23 EDT - 03/12/2015 14:59 EDT Hospital Encounter [facility] Cardiac/Telemetry Unit [address] [place] [id number] Ravi Costello MD [address] [place] [phone] Germain Ayala MD [address] [place] [address] [phone] Chest pain (Primary Dx); Abnormal cardiovascular stress test; ETOH abuse Discharge Disposition: Home or Self Care Social [...] Blood Pressure 160/80 03/12/2015 1314 EDT Pulse - - Temperature 36.5 ??C (97.7 ??F) 03/12/2015 1314 EDT Respiratory Rate 18 03/12/2015 1314 EDT Oxygen Saturation 99% 03/12/2015 1326 EDT Inhaled Oxygen Concentration - - Weight 56.7 kg (125 lb 1.6 oz) 03/12/2015 1043 E DT Height 182.9 cm (6') 03/12/2015 1043 EDT Body Mass Index 16.97 03/12/2015 1043 EDT documented in this encounter Functional Status [...] Yes 03/12/2015 documented as of this encounter Discharge Summaries * Germain Ayala MD - 03/12/2015 1337 EDT . Discharge Summary Attending Physician: Germain Ayala MD Date of Admission: 03/12/2015 Date of Discharge: 03/12/15 Disposition: Self-Care Reason for Admission: Atypical chest pain, elevated troponin Hospital Problems: Non-cardiac Chest pain Hospital Course: 59 y.o. male patient with history significant for CAD (s/p PCI to mid-LAD in spring), HTN, HLD, COPD, and current alcohol abuse as well as current medication noncompliance presented from an OSH with elevated troponin (0.07) and atypical chest pain. In November 2014, he had undergone a stress test showing a partially reversible defect with a small amount of ischemia. A similar defect was described in 2013 and a subsequent LHC had not shown a corresponding obstructive coronary lesion. Troponin I at our institution was negative despite ongoing, constant chest pain. Thus it was apparent that the chest pain was most likely noncardiac in origin. Patient was discharged and encouraged to comply with medications and smoking cessation going forward. Clinical Issues Needing Follow-up: CAD/HTN: continue metoprolol and aspirin; plavix discontinued (completed 1 year therapy) Tobacco/Alcohol abuse Results Pending at Discharge: Test results still pending from this admission None Discharge Medications: START taking these medications Sig metoprolol XL 50 mg tablet Commonly known as: TOPROL-XL 50 mg, oral, DAILY CONTINUE taking these medications Sig acetaminophen 325 mg tablet Commonly known as: TYLENOL 650 mg, oral, EVERY 6 HOURS PRN albuterol 90 mcg/actuation inhaler 2 Puffs, inhalation, 4 TIMES DAILY PRN amitriptyline 50 mg tablet Commonly known as: ELAVIL 50 mg, oral, AT BEDTIME, aspirin chewable 81 mg tablet 81 mg, oral, DAILY citalopram 20 mg tablet Commonly known as: CELEXA 60 mg, oral, DAILY, folic acid 1 mg tablet Commonly known as: FOLVITE 1 mg, oral, DAILY mometasone-formoterol 100-5 mcg/actuation Commonly known as: DULERA 2 Puffs, inhalation, 2 TIMES DAILY Multivitamins with Minerals tablet 1 Tab, oral, DAILY nitroGLYCERIN 0.4 mg SL tablet Commonly known as: NITROSTAT 0.4 mg, sublingual, EVERY 5 MIN PRN thiamine 100 mg tablet Commonly known as: VITAMIN B1 100 mg, oral, DAILY tiotropium 18 mcg inhalation capsule Commonly known as: SPIRIVA 18 mcg, inhalation, DAILY STOP taking these medications metoprolol 25 mg tablet Commonly known as: LOPRESSOR Allergies: Tegretol Follow-Up Appointments and Procedures Recommended to Patient: Follow-up appointments and procedures Amb Consult/Follow Up Primary Care Physician Reason for Request: f/u 2 weeks Authorizing Provider: Yanely Beckman MD Attending Attestation: I have personally evaluated Jimenez Barkley's on the day of discharge and reviewed the discharge summary above by Dr. Beckman. I have spent 14 minutes in discharge services forthe patient. Germain Ayala MD documented in this encounter Discharge Instructions * Discharge Instr - Other Orders* Lisbeth Stewart - 03/12/2015 14:21 EDT Please follow up with your primary care physician, Dr. Garg on March 26, 2015 at 8am. documented in this encounter Medications at Time [...] 2 03/12/2015 documented as of this encounter Ordered Prescriptions Prescription Sig Dispensed Refills Start Date End Da te folic acid (FOLVITE) 1 mg tablet Take 1 Tab by mouth daily 60 Tab 2 03/12/2015 thiamine (VITAMIN B1) 100 mg tablet Take 1 Tab by mouth daily 60 Tab 1 03/12/2015 metoprolol XL (TOPROL-XL) 50 mg tablet Take 1 Tab by mouth daily 60 Tab 1 03/12/2015 nitroGLYCERIN (NITROSTAT) 0.[address] 1 Tab under the tongue every 5 minutes as needed for Chest Pain 15 Tab 0 03/12/2015 albuterol 90 mcg/actuation inhaler Inhale 2 Puffs as directed 4 times daily as needed for Wheezing 1 Inhaler 1 03/12/2015 tiotropium (SPIRIVA) 18 mcg inhalation capsule Inhale 1 Cap as directed daily 1 Box 2 03/12/2015 documented in this encounter Discharge Disposition Disposition Code Departure Means Destination Home or Self Care documented in this encounter Progress Notes * Etelvina Kennedy RN - 03/12/2015 1436 EDT D: Patient discharged home per MD. A: IV removed, catheter tip intact. Telemetry removed. RN reviewed discharge instructions and medications with patient. Patient received prescriptions, medication sheets, and discharge instructions. Cab voucher made available to patient. R: Patient expressed good understanding of discharge instructions. Pt has no questions at this time. Patient dressed independently. They left via wheelchair. Etelvina Kennedy RN 03/12/2015 14:36 documented in this encounter H&P Notes * Germain Ayala MD - 03/12/2015 1201 EDT Cardiology Admission H&P Admit Date: 03/12/2015 PCP: Sai Hernández MD Reason for transfer: chest pain HPI: Jimenez Barkley is a 59 y.o. male with a PMH significant for CAD (s/p PCI to mid-LAD in spring), HTN, HLD, COPD, hypothyroidism, chronic back pain, bipolar disorder, and current ethanol abuse(~6beers/daily) presents from [facility] due to elevated troponin and atypical chest pain. Pt was found to be intoxicated by police yesterday evening and was brought into the ED for evaluation. While there, he was complaining of substernal chest pain, non-radiating and not associated with shortness of breath, N/V or diaphoresis. Reports that the pain started 3-4 days ago and has remained constant. He ran out of his medications (Plavix, Metoprolol, Depakote) 3 days ago but reports taking Aspirin 81mg.He is currently homeless and reports cutting down on his drinking. Last reported episode of chest pain was in November. At the OSH, he was noted to have a troponin of 0.076 and EKG showed no acute ST changes; he was given Aspirin 81mg and transferred to [facility]. Currently he is experiencing 6/10 chest pain; he is irritable and annoyed that he hasn't gotten anything to eat or drink. . Denies recent illness. No lightheadedness/fevers/chills Relevant prior Cardiac Studies: [facility] 01/2014: Diagnostic Cardiac Study Results Left main: Normal. LAD: Prior intervention: stent in the proximal LAD. The stented segment is patent Left circumflex: Normal. 2nd obtuse marginal: Ostial lesion: There is a 55% stenosis. This lesion is unchanged from a prior study. Right coronary: Normal. Stress test at [facility] on November 2014: moderate size, partially reversible defect involving the basal and mid inferoseptal and mid inferior farnsworth. . ROS: Full 10 point system obtained; pertinent positives and negatives noted in HPI Past Medical History: Past Medical History Diagnosis Date ??? Psychiatric problem Bipolar ??? Arthritis ??? 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 ??? Hypothyroid ??? Hypertension ??? Hyperlipidemia ??? COPD (chronic obstructive pulmonary disease) ??? Multiple injuries of head ??? ETOH abuse ??? Bipolar disorder ??? Chronic right shoulder pain 07/21/2012 ??? Cervical spondylosis 07/21/2012 Prior to admission medications No current facility-administered medications on file prior to encounter. Current Outpatient Prescriptions on File Prior to Encounter Medication Sig Dispense Refill ??? acetaminophen (TYLENOL) 325 mg tablet Take 2 Tabs by mouth every 6 hours as needed for Pain. ??? albuterol (VENTOLIN HFA) 90 mcg/actuation inhaler Inhale 2 Puffs as directed 4 times daily as needed for Wheezing. 1 Inhaler 2 ??? amitriptyline (ELAVIL) 50 mg tablet Take 50 mg by mouth at bedtime. ??? aspirin chewable 81 mg tablet Take 1 Tab by mouth daily. ??? citalopram (CELEXA) 20 mg tablet Take 60 mg by mouth daily. ??? metoprolol (LOPRESSOR) 25 mg tablet Take 1 Tab by mouth 2 times daily. 180 Tab 11 ??? mometasone-formoterol (DULERA) 100-5 mcg/actuation Inhale 2 Puffs as directed 2 times daily. 1 Inhaler 0 ??? Multivitamins with Minerals tablet Take 1 Tab by mouth daily. 30 Tab 0 ??? nitroGLYCERIN (NITROSTAT) 0.[address] 1 Tab under the tongue every 5 minutes as needed for Chest Pain. 15 Tab 0 ??? tiotropium (SPIRIVA) 18 mcg inhalation capsule Inhale 1 Cap as directed daily. 1 Box 0 Past Surgical History: Past Surgical History Procedure Laterality Date ??? Tonsillectomy Family History: Reviewed, negative for premature CAD or sudden cardiac Social History: Homeless; smokes 1/1ppd; drinks 2-6beers daily; denies IVDA. Unemployed Allergies: Reviewed Allergies Allergen Reactions ??? Tegretol [Carbamazepine] Hives Exam: General appearance: disheveled Eyes: Anicteric sclerae, conjunctiva without pallor Mouth: MMM Head: Normocephalic and atraumatic Neck: Supple, symmetrical, trachea midline, JVP not elevated Lungs: fine expiratory wheezing otherwise clear CVS: RRR, S1, S2 normal, no murmurs appreciated Abdomen: obese, soft, non-tender; positive bowel sounds; no rebound or guarding, no masses, no palpable organomegaly Neurologic: CN II-XII intact, moving all extremities, strength and sensation equal and intact throughout Extremities: extremities warm, atraumatic, no cyanosis or edema, 2+ DP pulses bilaterally Data review: EKG: Normal Sinus Rhythm, no acute ST segment changes Labs: Reviewed WBC/Hgb/Hct/Plts: 8.75/12.0/36.6/123 (03/12 110) PT/INR/PTT: 9.8/0.9/-- (03/12 110) Recent Labs 03/12/151104 TROPONINI <0.034 A/P: 59 y.o. male patient with history significant for CAD (s/p PCI to mid-LAD in spring), HTN,HLD, COPD, and current alcohol abuse presented from an OSH with elevated troponin and atypical chest pain. Given the description of his constant pain, less likely to be cardiac particularly in setting of negative troponin and no changes on EKG. While he has had a stress test in the past showing a small partially reversible defect, he would not be a good candidate to undergo LHC and possibly receive a stent as his social situation is quite complex (homeless, current tobacco and alcohol abuse) and would be worried about compliancy on dual anti-platelet therapy. -will provide refill on anti-hypertensives (metoprolol) -continue aspirin but can discontinue plavix (PCI done in December) -f/u with PCP in 2 weeks -encouraged smoking/acohol cessation; discussed about outpatient options which pt declined Dispo: will d/c this afternoon Case discussed with Dr. Kash Beckman MD PGY-2, #[id number] Attending Attestation: I have personally seen and examined Jimenez Barkley, discussed the patient's management with the team, and agree with the findings and plan as outlined above by Dr. Beckman. Germain Ayala MD documented in this encounter Miscellaneous Notes * Plan of Care - Etelvina Kennedy, RN - 03/12/2015 1319 EDT Problem: PAIN Goal: Patient???s Pain And Discomfort Are Adequately Managed D: Patient arrived to [place] [id number] for CP. Vital signs noted, and tele applied. Patient in SR withheart rate in 50s. Patient denies SOB but c/o left sided chest pain 03/26. A; MD Beckman AT BEDSIDE AND AWARE OD THE ABOVE. PRN morphine mg given as ordered for pain. Assessment as documented in flow sheet. Admission database completed. Patient orientated to room, equipment, and care plan. R: Pt reports some pain relief currently 01/24. No other complaints. Continue to monitor and document per protocol. Etelvina Kennedy RN 03/12/2015 13:16 documented in this encounter Plan of Treatment Scheduled Referrals Name Type Priority Associated Diagnoses Orde r Schedule AMB CONS/FOLLOW UP PRIMARY CARE PHYSICIAN Outpatient Referral Routine Chest pain Ordered: 03/12/2015 documented as of this encounter Procedures Procedure Name Priority Date/Time Associated Diagnosis Comments ECG REPORT - SCANNED 03/16/2015 11:45 EDT ECG REPORT - SCANNED 03/15/2015 14:46 EDT INPATIENT ADD-ON Routine 03/12/2015 12:1 0 EDT GLUCOSE, GLUCOMETER Routine 03/12/2015 1 1:38 EDT INPATIENT ADD-ON Routine 03/12/2015 11:2 0 EDT EKG 12-LEAD Routine 03/12/2015 11:08 EDT TROPONIN I Routine 03/12/2015 11:05 EDT PROTIME Routine 03/12/2015 11:05 EDT COMPLETE BLOOD COUNT Routine 03/12/2015 11:05 EDT ALT Routine 03/12/2015 11:05 EDT AST Routine 03/12/2015 11:05 EDT ALKALINE PHOSPHATASE Routine 03/12/2015 11:05 EDT CREATININE Routine 03/12/2015 11:05 EDT BILIRUBIN, TOTAL Routine 03/12/2015 11:0 5 EDT ELECTROLYTES Routine 03/12/2015 11:05 EDT documented in this encounter Results * ECG REPORT - SCANNED (03/16/2015 11:45 EDT) 03/16/2015 11:4 5 EDT Scan 2 [employer] Polisher Gold Wheel PROCEDURE/MINOR AMITA GICAL ORDERABLES * ECG REPORT - SCANNED (03/15/2015 14:46 EDT) 03/15/2015 14:4 6 EDT Scan 2 [employer] Wheel PROCEDURE/MINOR AMITA GICAL ORDERABLES * INPATIENT ADD-ON (03/12/2015 12:10 EDT) Tests to be added AST, ALT, ALK PHOS, TOTAL BILI 03/12/2015 12:10 EDT [facility] Number for problems [id number] 03/12/2015 12:21 EDT [facility] Accession number [id number] 03/12/2015 12:21 EDT [facility] TOPOGRAPHY UNKNOWN / Unknown 03/12/2015 12:10 EDT 03/12/2015 12:20 EDT Yanely Beckman MD HEMATOLOGY & PF4 ORD ERABLES [facility] [address] [place] [address] * GLUCOSE, GLUCOMETER (03/12/2015 11:38 EDT) Glucose, Fingerstick 87 70 - 100 mg/dl 03/12/2015 11:42 EDT [facility] Clinical Statistics Manager ID [id number] 03/12/2015 11:42 EDT [facility] Comment:[facility] Per[facility] BLOOD SPECIMEN / Unknown 03/12/2015 11:38 EDT 03/12/2015 11:42 EDT Germain Ayala MD CHEMISTRY & B LOOD GAS ORDERABLES [facility] [address] [place] [address] * INPATIENT ADD-ON (03/12/2015 11:20 EDT) Tests to be added ELECTROLYT DONALD MICHELLE INE 03/12/2015 11:20 EDT [facility] Number for problems [id number] 03/12/2015 11:30 EDT [facility] Accession number [id number] 03/12/2015 11:30 EDT [facility] TOPOGRAPHY UNKNOWN / Unknown 03/12/2015 11:20 EDT 03/12/2015 11:30 EDT Roque Hewitt MD HEMATOLOGY & PF4 ORD ERABLES Performing Organization Address [facility] Co de Phone Number [facility] [address] [place] [address] * EKG 12-LEAD (03/12/2015 11:08 EDT) 03/12/2015 11:0 8 EDT Narrative [facility] - 03/13/2015 15:22 EDT ? [facility] ? Test Date: ?2015-03-12 Pat Name: ? JIMENEZ BARKLEY ? Department: ?? [facility] [address] ? Room: ? MW516 Gender: ? M ?Edge Beader: ?? [id number] : ?1955 ? Requested By: ANN GUERRA Order Number: [id number] ? Reading : ?? SANDRA BALLESTEROS MD ? Measurements Intervals ?Lewis ? Rate: ? 58 ? P: ?66 WY: ? 156 ?QRS: ?71 QRSD: ? 92 ? T: ?79 QT: ? 457 ? QTc: ?449 ? Interpretive Statements SINUS BRADYCARDIA WITH SINUS ARRHYTHMIA ST ELEVATION, PROBABLY EARLY REPOLARIZATION Compared to ECG 04/03/2014 08:38:24 Sinus bradycardia now present Sinus arrhythmia now present ST (T wave) deviation now present I reviewed the tracing and have either agreed or edited the findings in this report. Electronically Signed On 03-13-15 15:22:17 EDT by SANDRA BALLESTEROS MD. Procedure Note Sandra Ballesteros MD - 03/13/2015 [facility] Test Date: 2015-03-12 Pat Name: JIMENEZ BARKLEY Department: Nery Macaky Room: [facility] Gender: M Edge Beader: [id number] : 1955 Requested By: ANN GUERRA Order Number: [id number] Reading MD: SANDRA BALLESTEROS MD Measurements Intervals Lewis Rate: 58 P: 66 WY: 156 QRS: 71 QRSD: 92 T: 79 QT: 457 QTc: 449 Interpretive Statements SINUS BRADYCARDIA WITH SINUS ARRHYTHMIA ST ELEVATION, PROBABLY EARLY REPOLARIZATION Compared to ECG 04/03/2014 08:38:24 Sinus bradycardia now present Sinus arrhythmia now present ST (T wave) deviation now present I reviewed the tracing and have either agreed or edited the findings inthis report. Electronically Signed On 03-13-15 15:22:17 EDT by SANDRA MORGAN. Yanely Beckman MD CARDIAC ECG ORDERABL ES Performing Organization Address City/[facility]/ZIP Co de Phone Number [facility] E[facility] * BILIRUBIN, TOTAL (03/12/2015 11:05 EDT) Pathologist [facility] Bilirubin, Total 0.7 <1.4 mg/dl 03/12/2015 13:19 EDT [facility] BLOOD SPECIMEN / Unknown 03/12/2015 11:05 EDT 03/12/2015 11:19 EDT Yanely Beckman MD CHEMISTRY & BLOOD GA S ORDERABLES [facility] [address] [place] [address] * (ABNORMAL) AST (03/12/2015 11:05 EDT) AST 53(H) 15 - 46 U/L 03/12/2015 13:19 EDT [facility] BLOOD SPECIMEN / Unknown 03/12/2015 11:05 EDT 03/12/2015 11:19 EDT Yanely Beckman MD CHEMISTRY & BLOOD GA S ORDERABLES [facility] [address] [place] [address] * ALT (03/12/2015 11:05 EDT) ALT 61 21 - 72 U/L 03/12/2015 13:19 EDT [facility] BLOOD SPECIMEN / Unknown 03/12/2015 11:05 EDT 03/12/2015 11:19 EDT Yanely Beckman MD CHEMISTRY & BLOOD GA S ORDERABLES Performing Organization Address City/[facility]/ZIP Co de Phone Number [facility] [address] [place] [address] * ALKALINE PHOSPHATASE (03/12/2015 11:05 EDT) Total Alkaline Phosphatase 57 38 - 126 U/L 03/12/2015 13:19 EDT [facility] BLOOD SPECIMEN / Unknown 03/12/2015 11:05 EDT 03/12/2015 11:19 EDT Yanely Beckman MD CHEMISTRY & BLOOD GA S ORDERABLES Performing Organization Address City/[facility]ZIP Co de Phone Number [facility] [address] [place] [address] * ELECTROLYTES (03/12/2015 11:05 EDT) Sodium 141 136 - 145 mEq/L 03/12/2015 13:19 EDT [facility] Potassium 4.0 3.5 - 5.0 mEq/L 03/12/2015 13:09 EDT [facility] Chloride 104 96 - 110 mEq/L 03/12/2015 13:19 EDT [facility] CO2 30 24 - 32 mEq/L 03/12/2015 13:19 EDT [facility] BLOOD SPECIMEN / Unknown 03/12/2015 11:05 EDT 03/12/2015 11:19 EDT Yanely Beckman MD CHEMISTRY & BLOOD GA S ORDERABLES [facility] [address] [place] [address] * (ABNORMAL) CREATININE (03/12/2015 11:05 EDT) Creatinine 0.64(L) 0.66 - 1.25 mg/dl 03/12/2015 13:19 EDT [facility] GFR, Calculated >60 >60 ml/min/1.7 3m2 03/12/2015 13:19 EDT [facility] BLOOD SPECIMEN / Unknown 03/12/2015 11:05 EDT 03/12/2015 11:19 EDT Yanely Beckman MD CHEMISTRY & BLOOD GA S ORDERABLES Performing Organization Address City/[facility]/ZIP Co de Phone Number [facility] [address] [place] [address] * TROPONIN I (03/12/2015 11:05 EDT) Troponin I (ng/mL) <0.034 <0.034 ng/ml 03/12/2015 12:01 EDT [facility] Blood specimen (specimen) BLOOD SPECIMEN / Unknown 03/12/2015 11:05 EDT 03/12/2015 11:19 EDT Yanely Beckman MD CHEMISTRY & BLOOD GA S ORDERABLES [facility] [address] [place] [id number] * (ABNORMAL) HEMAGRAM (03/12/2015 11:05 EDT) WBC 8.75 4.0 - 10.4 K/cmm 03/12/2015 11:39 EDT [facility] RBC 3.80(L) 4.36 - 5.78 M/cmm 03/12/2015 11:39 EDT [facility] Hemoglobin 12.0(L) 13.8 - 17.3 gm/dl 03/12/2015 11:39 EDT [facility] HCT 36.6(L) 39.5 - 50.2 % 03/12/2015 11:39 T [facility] MCV 96(H) 81 - 95 fl 03/12/2015 11:39 T [facility] MCH 31.7 27.6 - 33.0 pg 03/12/2015 11:39 T [facility] MCHC 32.9 32.8 - 36.4 gm/dl 03/12/2015 11:39 T [facility] RDW-CV 14.1 11.8 - 14.1 % 03/12/2015 11:39 [facility] RDW-SD 46.8(H) 36.5 - 45.9 fl 03/12/2015 11:39 [facility] PLT 123(L) 141 - 320 K/cmm 03/12/2015 11:39 [facility] MPV 7.9 7.5 - 11.2 fl 03/12/2015 11:39 [facility] Blood specimen (specimen) BLOOD SPECIMEN / Unknown 03/12/2015 11:05 EDT 03/12/2015 11:19 EDT Yanely Beckman MD HEMATOLOGY & PF4 ORD ERABLES [facility] [address] [place] [address] * (ABNORMAL) PROTIME (03/12/2015 11:05 EDT) Pro Time 9.8(L) 10.1 - 13.0 secs 03/12/2015 11:58 T [facility] Comment: New prothrombin t radha range effective 02/23/15 I.N.R. 0.9 0.9 - 1.1 Ratio 03/12/2015 11:58 [facility] Comment: Moderate Intensity Coumadin INR = 2.0-3.0 Adjustments in anticoagulant therapy dose should be based upon the INR and NOT the Pro Time. Blood specimen (specimen) BLOOD SPECIMEN / Unknown 03/12/2015 11:05 EDT 03/12/2015 11:19 EDT Yanely Beckman MD HEMATOLOGY & PF4 ORD ERABLES [facility] [address] [place] [address] documented in this encounter Visit Diagnoses Diagnosis Chest pain- Primary Chest pain, unspecified Chest pain Chest pain, unspecified Abnormal cardiovascular stress test Other nonspecific abnormal cardiovascular system function study ETOH abuse Alcohol abuse, unspecified documented in this encounter Administered Medications Inactive Administered Medications - up to 3 most recent administrations Medication Order MAR Action Action Date Dose Rate Site atorvastatin (LIPITOR) tablet 40 mg 40 mg, oral, DAILY, First dose on Sun03/12/15 at 1115, Until Discontinued, Routine Given 03/12/2015 11:36 EDT 40 mg folic acid (FOLVITE) tablet 1 mg 1 mg, oral, DAILY, First dose on Sun03/12/15 at 1200, Until Discontinued, Routine Given 03/12/2015 13:12 EDT 1 mg metoprolol (LOPRESSOR) tablet 25 mg 25 mg, oral, 2 TIMES DAILY, First dose on Sun03/12/15 at 1200, Until Discontinued, Routine Given 03/12/2015 12:23 EDT 25 mg mometasone-formoterol (DULERA) 100-5 mcg/actuation inhaler 2 Puff 2 Puff, inhalation, 2 TIMES DAILY, First dose on Sun03/12/15 at 1200, Until Discontinued, Routine Given 03/12/2015 13:26 EDT 2 Puffs morphine injection 2-4 mg 2-4 mg, intravenous, EVERY 5 MIN PRN, Starting on Sun03/12/15 at 1050, Until Sun03/12/15 at 1704, Pain, Routine Given 03/12/2015 12:24 EDT 2 mg Given 03/12/2015 11:14 EDT 2 mg thiamine (VITAMIN B1) tablet 100 mg 100 mg, oral, DAILY, First dose on Sun03/12/15 at 1200, Until Discontinued, Routine Given 03/12/2015 13:12 EDT 100 mg tiotropium (SPIRIVA) 18 mcg inhalation capsule 18 mcg 18 mcg, inhalation, DAILY, First dose on Sun03/12/15 at 1200, Until Discontinued, Routine Given 03/12/2015 13:26 EDT 1 8 mcg documented in this encounter Discontinued Medications Medication Sig Discontinue Reason Start Date End Da te baclofen (LIORESAL) 10 mg tablet Take 20 mg by mouth 2 times daily. 03/12/2015 folic acid (FOLVITE) 1 mg tablet Take 1 Tab by mouth daily. 01/23/2014 03/12/2015 HYDROcodone-acetaminoph en (NORCO) 2.5-325 mg Take 1 Tab by mouth every 4 hours. 01/23/2014 03/12/2015 HYDROcodone-acetaminoph en (NORCO) 2.5-325 mg Take 1 Tab by mouth every 4 hours as needed for Pain. 01/23/2014 03/12/2015 levothyroxine (SYNTHROID) 75 mcg tablet Take 1 Tab by mouth daily before breakfast. 01/23/2014 03/12/2015 ranitidine (ZANTAC) 150 mg tablet Take 150 mg by mouth 2 times daily. 03/12/2015 thiamine (VITAMIN B1) 100 mg tablet Take 1 Tab by mouth daily. 01/23/2014 03/12/2015 tiotropium (SPIRIVA) 18 mcg inhalation capsule Inhale 1 Cap as directed daily. 01/23/2014 03/12/2015 albuterol (VENTOLIN HFA) 90 mcg/actuation inhaler Inhale 2 Puffs as directed 4 times daily as needed for Wheezing. 01/23/2014 03/12/2015 nitroGLYCERIN (NITROSTAT) 0.[address] 1 Tab under the tongue every 5 minutes as needed for Chest Pain. 11/14/2009 03/12/2015 metoprolol (LOPRESSOR) 25 mg tablet Take 1 Tab by mouth 2 times daily. 04/03/2014 03/12/2015 documented as of this encounter Active and Recently Administered Medications Times are shown in EDT. Scheduled Medication Order 03/10/2015 03/11/2015 03/12/2015 atorvastatin (LIPITOR) tablet 40 mg (CANCELED) 40 mg, oral, DAILY, First dose on Sun03/12/15 at 1115, Until Discontinued, Routine 1136 (Given - Provid er: Etelvina Kennedy RN) folic acid (FOLVITE) tablet 1 mg 1 mg, oral, DAILY, First dose on Sun03/12/15 at 1200, Until Discontinued, Routine 1312 (Given - Provid er: Etelvina Kennedy RN) metoprolol (LOPRESSOR) tablet 25 mg (CANCELED) 25 mg, oral, 2 TIMES DAILY, First dose on Sun03/12/15 at 1200, Until Discontinued, Routine 1223 (Given - Provid er: Etelvina Kennedy RN) mometasone-formoterol (DULERA) 100-5 mcg/actuation inhaler 2 Puff (CANCELED) 2 Puff, inhalation, 2 TIMES DAILY, First dose on Sun03/12/15 at 1200, Until Discontinued, Routine 1326 (Given - Provid er: Pepper Bacon, RT) thiamine (VITAMIN B1) tablet 100 mg 100 mg, oral, DAILY, First dose on Sun03/12/15 at 1200, Until Discontinued, Routine 1312 (Given - Provid er: Etelvina Kennedy RN) tiotropium (SPIRIVA) 18 mcg inhalation capsule 18 mcg (CANCELED) 18 mcg, inhalation, DAILY, First dose on Sun03/12/15 at 1200, Until Discontinued, Routine 1326 (Given - Provid er: Pepper Bacon, RT) PRN Medication Order 03/10/2015 03/11/2015 03/12/2015 morphine injection 2-4 mg (CANCELED) 2-4 mg, intravenous, EVERY 5 MIN PRN, Starting on Sun03/12/15 at 1050, Until Sun03/12/15 at 1704, Pain, Routine 1114 (Given - Provid er: Etelvina Kennedy RN)1224 (Given - Provider: Etelvina Kennedy RN) documented in this encounter Orders Medications Ordered That Scott ht Not Have Been Administered Count Last Ordered Date First Ordered Date acetaminophen (TYLENOL) tablet 650 mg 1 albuterol inhaler 2 Puff 1 03/12/2015 aspirin EC tablet 81 mg 1 03/12/2015 DIAZepam (VALIUM) syringe 5-10 mg 1 015 DIAZepam (VALIUM) tablet 10-20 mg 1 015 nitroGLYCERIN (NITROSTAT) SL tablet 0.4 mg 1 03/12/2015 sodium chloride 0.9 % flush 3 mL 1 03/12/20 15 Nursing Count Last Ordered Date First Orde red Date ACTIVITY INSTRUCTIONS 1 03/12/2015 BATHING INSTRUCTIONS 1 03/12/2015 VTE PHARMACOLOGIC PROPHYLAXI S CURRENTLY ORDERED OR ON ALTERNATIVE THER 1 03/12/2015 Admission Count Last Ordered Date First Orde red Date STATUS: OUTPATIENT OBSERVATION SERVICES 1 0 03/12/2015 Transfer Count Last Ordered Date First Orde red Date NOTIFY PPS OF DISCHARGE COMPLETE 1 03/12/20 15 UR PATIENT STATUS CHANGE 1 03/12/2015 Discharge Count Last Ordered Date First Orde red Date DISCHARGE PATIENT 1 03/12/2015 Legal Count Last Ordered Date First Orde red Date MISCELLANEOUS DISCHARGE INSTRUCTIONS 1 02/16 Consult to Social Work Count Last Ordered Date First Ordered Date CONSULT SOCIAL WORK 1 03/12/2015 documented in this encounter Care Teams Senior Medical Writer Relationship Specialty Start Date End Date Sai Garg MD [address] [place] [phone] PCP - General 03/12/15 11/04/19 documented as of this encounter
--- OUTSIDE RECORDS SUMMARY | 2024-04-16 13:57 | XMS_ITS | Encounter Summary ---
Author Organization [facility] Address [address] [place] [address] Care Team Providers Care Spray Machine Loader Name Role Phone Erich Sethi MD Primary Care Provider [phone] Sai Garg MD Primary Care Provi glynn Encounter Details Date Type Department Care Team (Late st Contact Info) Description 11/21/2014 Historical Results Only [facility] Radiology Results [address] [place] [address] Fredo Moffett MD [address] [place] [address] Social History Tobacco Use Types Packs/Day Years [...] Associated Diagnosis Comments XR CHEST 2 VIEWS 11/21/2014 13:1 5 EST documented in this encounter Results * XR CHEST 2 VIEWS (11/21/2014 13:15 EST) Anatomical Region Laterality Modality Other 11/21/2014 13:1 5 EST Narrative 11/22/2014 18:24 EDT ? EXAM: RADIOLOGY/CHEST (PA ?? LAT) ?EX. D/ (1315) ? CLINICAL INFORMATION: ? COUGH ? INDICATION: ??Body aches and lethargy. ? TECHNIQUE: ??Two views. ? COMPARISON: ??04/02/2014, 01/27/2014 and 04/05/2013. ? FINDINGS: ??The patient is hyperinflated. ??No lobar opacities are seen. ?The prominent left distal rib is unchanged. ??Cardiac silhouette is ? unremarkable. ? IMPRESSION: ? 1. ??No acute cardiopulmonary disease detected. ? 2. ??COPD. ? JSP:jca ?Reported By: Gamaliel Vitale MD ? CC: ? Transcribed Date/Time: 11/22/2014 (1823) ? Riddler Operator: BONY ? Printed Date/Time: 02/18/2019 (8151) ? PAGE 1 ? Signed Report ? Procedure Note Gamaliel Vitale MD - 07/22/2019 EXAM: RADIOLOGY/CHEST (PA LAT) EX. D/ (1315) CLINICAL INFORMATION: COUGH INDICATION: Body aches and lethargy. TECHNIQUE: Two views. COMPARISON: 04/02/2014, 01/27/2014 and 04/05/2013. FINDINGS: The patient is hyperinflated. No lobar opacities areseen. The prominent left distal rib is unchanged. Cardiac silhouette is unremarkable. IMPRESSION: 1. No acute cardiopulmonary disease detected. 2. COPD. JSP:jca Reported By: Gamaliel Vitale MD CC: Transcribed Date/Time: 11/22/2014 (1823) Riddler Operator: BONY Printed Date/Time: 02/18/2019 (9380) PAGE 1 Signed Report Fredo Moffett MD IMG DIAGNOSTIC IMAGI NG ORDERABLES documented in this encounter Visit Diagnoses Not on filedocumented in this encounter Care Teams Spray Machine Loader Relationship Specialty Start Date End Date Erich Sethi MD [address] [place] [phone] PCP - General 11/12/14 03/11/15 Sai Garg MD [address] [place] [phone] PCP - General 03/12/15 11/04/19 documented as of this encounter
--- OUTSIDE RECORDS SUMMARY | 2024-04-16 13:57 | XMS_ITS | Clinical Summary ---
Author Organization [facility] Address [address] [place] [address] Care Team Providers Care Venipuncturist Name Role Phone Unavailable Primary Care Provider [...] bipolar GERD (gastroesophageal reflux disease) 5 Seizures ([facility]) 02/23/2015 NSTEMI (non-ST elevated myocardial infarction) ( [facility]) 01/20/2014 ETOH abuse 01/20/2014 NSTEMI (non-ST elevated myocardial infarction) ( 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 Hypothyroid Hypertension Hyperlipidemia COPD (chronic obstructive pu lmonary disease) ([facility]) Multiple injuries of head ETOH abuse Bipolar disorder ([facility]) Chronic right shoulder pain 07/21/2012 Cervical spondylosis 07/21/2012 Family History Medical History Relation Comments High Blood Pressure Father Mental Illness Father High Blood Pressure Mother High Cholesterol Mother Relation Status Comments Father Mother Alive Social History Tobacco Use Types Packs/Day Years [...] on file Sexual Orientation Not on file Obstetrics History Last Filed Vital Signs Vital Sign Reading [...] Body Mass Index 16.97 03/12/2015 1043 EDT Plan of Treatment Health Maintenance Due Date Last Done Comments Hepatitis C Screen 1956 Social Determinants Of Health (SDOH) 1956 Depression Screening 1968 Advance Directive 1974 Preventive Care Visit 1974 Pertussis (Adult) Immunization 1975 Tetanus (Adult) Immunization 1975 Cologuard (Colon Cancer Screening) 2001 Colonoscopy (Colon Cancer Screening) 2001 Colorectal Cancer Screening 2001 FIT Test (Colon Cancer Screening) 2001 Sigmoidoscopy (Colon Cancer Screening) 2001 Shingles Immunization (1 of 2) 2006 Current Opioid Misuse Measurement 02/23/2015 Functional Assessment 02/23/2015 Opioid Informed Consent 02/23/2015 Pill Count 02/23/2015 Prescription Agreement 02/23/2015 Review Of Systems Adverse Effects 02/23/2015 [place] Prescription Monitor ing System 02/23/2015 Urine Drug Screen 04/03/2015 04/03/2014 RSV Immunization ( o r 60+ Years) (1 - 1-dose 60+ series) 2016 Lipid Profile Screening (Cholesterol) 01/19/2019 01/19/2014, 01/03/2014, 11/14/2009 Abdominal Aortic Aneurysm (A AA Screen) 2021 Fall Risk Screening 2021 Pneumococcal Immunization (6 5+) (2 of 2 - PCV) 2021 04/03/2014 COVID-19 Vaccine (1 - 2022- season) 2023 Influenza Immunization (Adul t) (Season Ended) 2024 Procedures Procedure Name Priority Date/Time Associated Diagnosis Comments DRUG SCREEN 6 Routine 04/03/2014 10:12 EDT LIPID PROFILE (INCLUDES CHOLESTEROL, TRIGLYCERIDES, HDL, LDL) Routine 01/19/2014 5:40 EDT from Last 3 Months or Most Recently Relevant to Health Maintenance Results * DRUG SCREEN 6 (04/03/2014 10:12 EDT) Amphetamine Screen, Urine Negative screen. [facility] Comment: Confirmation testing available upon request. Suitable for medical purposes only. Will not detect all drugs within class. Cutoff = 1000 ng/ml Specimen type is urine. Barbiturate Screen, Urine Negative screen. [facility] Comment: Confirmation testing available upon request. Suitable for medical purposes only. Will not detect all drugs within class. Cutoff = 300 ng/ml Specimen type is urine. Benzodiazepine Screen, Urine Presumptive positive, interpret with caution. [facility] Comment: Confirmation testing available upon request. Suitable for medical purposes only. Will not detect all drugs within class. Assay less sensitive to Lorazepam and metabolites. Cutoff = 200 ng/ml Specimen type is urine. Cannabinoid Scrn, Ur Presumptive positive, interpret with caution. [facility] Comment: Confirmation testing available upon request. Suitable for medical purposes only. Will not detect all drugs within class. Cutoff = 50 ng/ml Specimen type is urine. Opiate Scrn, Ur Presumptive positive, interpret with caution. [facility] Comment: Confirmation testing available upon request. Suitable for medical purposes only. Will not detect all drugs within class. Cutoff = 300 ng/ml Assay less sensitive to oxycodone and metabolites. Assay does not detect methadone. Specimen type is urine. Cocaine Metabolites, Ur Negative screen. [facility] Comment: Confirmation testing available upon request. Suitable for medical purposes only. Will not detect all drugs within class. Cutoff = 300 ng/ml Specimen type is urine. Urine specimen (specimen) URINE / Unknown 04/03/2014 10:12 EDT 04/03/2014 10:23 EDT Erich Delgado MD URINALYSIS ORDERABLE S [facility] [address] [place] [address] * LIPID PROFILE (INCLUDES CHOLESTEROL, TRIGLYCERIDES, HDL, LDL) (01/19/2014 5:40 EDT) Cholesterol 162 mg/dl [facility] Comment: Desirable:<200 Borderline High:200-239 High:>py=113 Triglycerides 89 mg/dl [facility] Comment: Normal:<150 Borderline High:150-199 High:200-499 Very High:>cl=054 HDL 102 mg/dl [facility] Comment: Low:<40 Normal:40-60 Desirable: >60 LDL, Calculated 42 mg/dl [facility] Comment: Optimal:<100 Near Optimal:100-129 Borderline High:130-159 High:160-189 Very High:>ex=920 Chol/HDL Ratio 1.6 [facility] Fasting? Unknown [facility] Non HDL Cholesterol 60 mg/dl [facility] Comment: Desirable:<130 Borderline:130-159 High: 160-189 Very High: >yb=748 Blood specimen (specimen) 01/19/2014 5:40 EDT 01/19/2014 5:55 EDT Sridevi Alvarez MD CHEMISTRY & BLOOD GA S ORDERABLES [facility] [address] [place] [address] from Last 3 Months or Most Recently Relevant to Health Maintenance Advance Directives For more information, please contact: [phone] * Full Code (Latest Code Status on [...]
--- OUTSIDE RECORDS SUMMARY | 2024-04-16 13:57 | XMS_ITS | Encounter Summary ---
Author Organization [facility] Address [address] [place] [address] Care Team Providers Care Metal Engraver Name Role Phone Sai Garg MD Primary Care Provi glynn Encounter Details Date Type Department Care Team (Late st Contact Info) Description 06/01/2015 Historical Results Only [facility] Radiology Results [address] [place] [address] Greta Gonzalez, DO [address] [place] [phone] Social History Tobacco Use Types [...] Procedure Name Priority Date/Time Associated Diagnosis Comments MR HINOJOSA W DOCTOR SUPERVISION 06/01/2015 15:07 EDT documented in this encounter Results * MR HINOJOSA W DOCTOR SUPERVISION (06/01/2015 15:07 EDT) Anatomical Region Laterality Modality Other 06/01/2015 15:0 7 EDT Narrative 06/01/2015 15:39 EDT ? EXAM: MAGNETIC RESONANCE IMAGING/ABDOMEN ??EX. D/ (1448) ? CLINICAL INFORMATION: ? density on pancreas head. ? Indication: Possible pancreatic head density. ? Technique: Multiplanar multisequence MR imaging of the abdomen was ? obtained with and without gadolinium contrast. ? Comparison: CT abdomen enhanced 05/08/2015. CT abdomen unenhanced ? 03/24/2012. ? Findings: There is a 4 mm high T2 signal focus in the head of the ? pancreas (series 7 image 10), which is low signal on T1 weighted ? imaging and demonstrates no appreciable enhancement (series 1100 ? image 47). No additional foci of abnormal signal are seen in the ? pancreatic parenchyma. The lung bases are clear. The visualized ? portions of the pancreatic and splenic parenchyma is unremarkable. No ? hydronephrosis is seen. No focal renal parenchymal abnormality is ? noted. No para-aortic abdominal adenopathy is detected. The adrenal ? glands are symmetric and unremarkable in appearance. ? Impression: ? 1. Tiny 4 mm pancreatic head cystic focus again seen, unchanged from ? 05/08/2015. No associated abnormal enhancement is detected. ? Furthermore, this focus may have been present on the 2011 comparison ? unenhanced CT abdomen. I suspect this reflects a tiny benign cyst. ? However, if there is high clinical concern an EUS could be obtained. ? Alternatively, followup imaging in 6 months could be performed. ? REPORT SIGNED IN OTHER VENDOR SYSTEM 06/01/2015 ?Reported By: Gamaliel Vitale MD ? CC: ? Transcribed Date/Time: 06/01/2015 (1539) ? Graphic User Interface Designer: ? Printed Date/Time: 02/25/2019 (1114) ? PAGE 1 ? Signed Report ? Procedure Note Gamaliel Vitale MD - 07/22/2019 EXAM: MAGNETIC RESONANCE IMAGING/ABDOMEN EX. D/ (1448) CLINICAL INFORMATION: density on pancreas head. Indication: Possible pancreatic head density. Technique: Multiplanar multisequence MR imaging of the abdomen was obtained with and without gadolinium contrast. Comparison: CT abdomen enhanced 05/08/2015. CT abdomen unenhanced 03/24/2012. Findings: There is a 4 mm high T2 signal focus in the head of the pancreas (series 7 image 10), which is low signal on T1 weighted imaging and demonstrates no appreciable enhancement (series 1100 image 47). No additional foci of abnormal signal are seen in the pancreatic parenchyma. The lung bases are clear. The visualized portions of the pancreatic and splenic parenchyma is unremarkable.No hydronephrosis is seen. No focal renal parenchymal abnormality is noted. No para-aortic abdominal adenopathy is detected. The adrenal glands are symmetric and unremarkable in appearance. Impression: 1. Tiny 4 mm pancreatic head cystic focus again seen, unchangedfrom 05/08/2015. No associated abnormal enhancement is detected. Furthermore, this focus may have been present on the 2012comparison [address]enhanced CT abdomen. I suspect this reflects a tiny benign cyst. However, if there is high clinical concern an EUS could beobtained. Alternatively, followup imaging in 6 months could be performed. REPORT SIGNED IN OTHER VENDOR SYSTEM 06/01/2015 Reported By: Gamaliel Vitale MD CC: Transcribed Date/Time: 06/01/2015 (1530) Graphic User Interface Designer: Printed Date/Time: 02/25/2019 (0574) PAGE 1 Signed Report Greta Gonzalez DO IMG MRI ORDERABLES documented in this encounter Visit Diagnoses Not on filedocumented in this encounter Care Teams Metal Engraver Relationship Specialty Start Date End Date Sai Garg MD [address] [place] [phone] PCP - General 03/12/15 11/04/19 documented as of this encounter
--- OUTSIDE RECORDS SUMMARY | 2024-04-16 13:57 | XMS_ITS | Encounter Summary ---
Author Organization [facility] Address [address] [place] [address] Care Team Providers Care Premium Card Cancellation Clerk Name Role Phone Sai Garg MD Primary Care Provi glynn Encounter Details Date Type Department Care Team (Late st Contact Info) Description 05/12/2015 Historical Results Only [facility] [place] Radiology Results [address] [place], [place] [address] Sai Garg MD [address] [place] [phone] Social History Tobacco Use Types Packs/Day [...] Name Priority Date/Time Associated Diagnosis Comments CT SECONDARY READ 05/12/2015 15: 41 EDT documented in this encounter Results * CT SECONDARY READ (05/12/2015 15:41 EDT) Anatomical Region Laterality Modality Other 05/12/2015 15:4 1 EDT Narrative 05/14/2015 15:13 EDT ? EXAM: CAT SCAN/SECONDARY READ CAT SCAN EX EX. D/ (1541) ? CLINICAL INFORMATION: ? INDICATION: ??Dr Sai Garg requests a secondary interpretation ? of this CT of the abdomen and pelvis from 05/08/2015, with specific ? attention to the possible pancreatic head lesion. ? TECHNIQUE: ??Axial enhanced imaging of the abdomen and pelvis was ? obtained. ? COMPARISON: ??03/24/2012 ? CT ABDOMEN: ??The lung bases are clear. Emphysema is seen at the lung ? bases with areas of hyperlucency noted. The hepatic and splenic ? parenchyma is unremarkable. The adrenal glands are unremarkable. The ? multifocal tiny low-attenuation renal cortical foci are again seen. ? The adrenal glands are symmetric. There is a 3mm low-attenuation focus ? in the superior right hepatic head (series 7, image 38). The remaining ? hepatic parenchyma is unremarkable. The abdominal aorta is normal in ? appearance. No hydronephrosis is seen. ? CT PELVIS: ??The urinary bladder is distended. There is a retrocecal ? appendix. The visualized portions of the appendix are unremarkable. No ? pelvic or inguinal adenopathy is seen. ? IMPRESSION: I do note the 3mm hypodensity in the superior pancreatic ? head as discussed by the virtual radiology physician. This structure ? is so small, that positive characterization with imaging will be ? extremely difficult. It is possible that this would be visible with ? EUS, and consultation with gastroenterology may be of use. ? Alternatively, a 3-6 month follow-up study could be obtained to ensure ? stability of this finding. Please note that the comparison study from ? 2012 was performed without contrast, and thus I cannot positively ? confirm that this structure was or was not present on that exam. ? JSP:[email or web address] ? Information on this document has changed ? PLEASE NOTE ? This Document was signed prior to the inclusion of the changes below ? by ANTONY on 05/18/2015 (1509): ? Ordering Physician: Exam [id number] ??CT/SECONDARY READ CAT SCAN EXAM ? Was Kg Serna MD ?Reported By: Gamaliel Vitale MD ? CC: ? Transcribed Date/Time: 05/14/2015 (1513) ? Rod Greaser: JENNY ? Printed Date/Time: 02/25/2019 (1113) ? PAGE 1 ? Signed Report ? Procedure Note Gamaliel Vitale MD - 07/22/2019 EXAM: CAT SCAN/SECONDARY READ CAT SCAN EX EX. D/ (1541) CLINICAL INFORMATION: INDICATION: Dr Sai Garg requests a secondaryinterpretation of this CT of the abdomen and pelvis from 05/08/2015, with specific attention to the possible pancreatic head lesion. TECHNIQUE: Axial enhanced imaging of the abdomen and pelvis was obtained. COMPARISON: 03/24/2012 CT ABDOMEN: The lung bases are clear. Emphysema is seen at thelung bases with areas of hyperlucency noted. The hepatic and splenic parenchyma is unremarkable. The adrenal glands are unremarkable.The multifocal tiny low-attenuation renal cortical foci are again seen. The adrenal glands are symmetric. There is a 3mm low-attenuationfocus in the superior right hepatic head (series 7, image 38). Theremaining hepatic parenchyma is unremarkable. The abdominal aorta is normalin appearance. No hydronephrosis is seen. CT PELVIS: The urinary bladder is distended. There is a retrocecal appendix. The visualized portions of the appendix are unremarkable.No pelvic or inguinal adenopathy is seen. IMPRESSION: I do note the 3mm hypodensity in the superiorpancreatic head as discussed by the virtual radiology physician. Thisstructure is so small, that positive characterization with imaging will be extremely difficult. It is possible that this would be visible with EUS, and consultation with gastroenterology may be of use. Alternatively, a 3-6 month follow-up study could be obtained toensure stability of this finding. Please note that the comparison studyfrom 2012 was performed without contrast, and thus I cannot positively confirm that this structure was or was not present on that exam. JSP:kad Information on this document has changed PLEASE NOTE This Document was signed prior to the inclusion of the changes below by ANTONY, on 05/18/2015 (7940): Ordering Physician: Exam [id number] CT/SECONDARY READ CAT SCAN EXAM Was Kg Serna MD Reported By: Gamaliel Vitale MD CC: Transcribed Date/Time: 05/14/2015 (1510) Rod Greaser: JENNY Printed Date/Time: 02/25/2019 (5951) PAGE 1 Signed Report Sai Hernández MD IMG [facility] documented in this encounter Visit Diagnoses Not on filedocumented in this encounter Care Teams Premium Card Cancellation Clerk Relationship Specialty Start Date End Date Sai Garg MD [address] [place] [phone] PCP - General 03/12/15 11/04/19 documented as of this encounter
--- OUTSIDE RECORDS SUMMARY | 2024-04-16 13:57 | XMS_ITS | Encounter Summary ---
Author Organization [facility] Address [address] [place] [address] Care Team Providers Care Emergency Department Physician Name Role Phone Sai Garg MD Primary Care Provi glynn Reason for Visit * Reason Onset Date Comments Appointment Related 02/02/2014 PO Encounter Details Date Type Department Care Team (Late st Contact Info) Description 02/02/2014 Telephone [facility] Cardiology - [place] [address] [facility] [place] [address] Gala Campbell, CHARY [address] [facility] [address] [place] [phone] Appointment Related (POH) Social History Tobacco Use Types Packs/Day Years [...] encounter Miscellaneous Notes * Telephone Encounter - Flora Medina - 02/02/2014 1204 EDT Left message for PT with appt date and time, regarding POH. Advised PT to call back if appt date and time does not work for him. documented in this encounter Plan of Treatment Not on file documented as of this encounter Visit Diagnoses Not on filedocumented in this encounter Care Teams Emergency Department Physician Relationship Specialty Start Date End Date Sai Garg MD [address] [place] [phone] PCP - General 01/03/14 11/11/14 documented as of this encounter
--- OUTSIDE RECORDS SUMMARY | 2024-04-16 13:57 | XMS_ITS | Encounter Summary ---
Author Organization [facility] Address [address] [place] [address] Care Team Providers Care Community Relations Advisor Name Role Phone Unavailable Primary Care Provider Unavailabl e Encounter Details Date Type Department Care Team (Late st Contact Info) Description 01/26/2021 Lab Requisition [facility] Pathology & Laboratory Medicine - [facility] [address] [place] [address] Outr Resulting Lab, Provider Social History Tobacco Use Types Packs/Day Years [...] Procedure Name Priority Date/Time Associated Diagnosis Comments LYME AB Routine 01/25/2021 10:45 EDT documented in this encounter Results * LYME AB (01/25/2021 10:45 EDT) Lyme Ab Negative Negative 01/27/2021 10:48 EDT [facility] Comment:New 3rd generation a ssay in use 02/25/2020 Blood VENOUS BLOOD / Unknown 01/25/2021 10:45 EDT 01/26/2021 15:54 EDT Provider Outr Resulting Lab IMMUNOLOGY A ND SEROLOGY ORDERABLES [facility] [address] [place] [address] documented in this encounter Visit Diagnoses Not on filedocumented in this encounter
--- OUTSIDE RECORDS SUMMARY | 2024-04-16 13:58 | XMS_ITS | Encounter Summary ---
Author Organization [facility] Address [address] [place] [address] Care Team Providers Care Pump And Still Operator Name Role Phone Sai Garg MD Primary Care Provi glynn Reason for Referral * Radiology Services (Routine/Next Available) - Closed Specialty Diagnoses / Procedures Referred By Contabida t Referred To Contact Diagnoses Neck pain Procedures CERVICAL SPINE 4 OR MORE VIEWS Lucy Pino MD [address] [place] [phone] Referral ID Status Reason Start Date Expiration Date Visits Re quested Visits Authorized [id number] Closed 07/11/2012 1 1 Reason for Visit * Reason Onset Date Comments Appointment Related 07/11/2012 Encounter Details Date Type Department Care Team (Late st Contact Info) Description 07/11/2012 Orders Only [facility] Spine Program - [address] [address] Lucy Pino MD [address] [place] [phone] Neck pain (Primary Dx) Social History Tobacco Use Types Packs/Day Years Used Date Smoking Tobacco: Every Day Cigarettes 0.5 35 Alcohol Use Standard Drinks/Week Comments Yes 0 (1 standard drink = 0.6 oz pure alcohol) drinks rarely but he is a binge drinker when he does drink Sex and Gender Information Value Date Recorded Sex Assigned at Not on file Gender Identity Not on file Sexual Orientation Not on file documented as of this encounter Functional Status Cognitive Status Response Date of Assessm ent Because of a physical, menta l, or emotional condition, do you have serious difficulty concentrating, remembering, or making decisions? (5 years old or older) Yes 11/13/2009 documented as of this encounter Plan of Treatment Not on file documented as of this encounter Procedures Procedure Name Priority Date/Time Associated Diagnosis Comments CERVICAL SPINE 4 OR MORE VIEWS Routine 07/16/2012 11:45 EDT Neck pain documented in this encounter Results * CERVICAL SPINE 4 OR MORE VIEWS (07/16/2012 11:45 EDT) Anatomical Region Laterality Modality Other 07/16/2012 11:4 5 EDT 07/16/2012 13:05 EDT Narrative 07/16/2012 13:05 EDT CERVICAL SPINE 4 VIEWS July 16, 2012 Indication: Neck pain. Comparison: None available. Technique: AP and lateral flexion, neutral and extension views of the cervical spine were obtained. Findings: There is a well-corticated osseous fragment noted inferior to the anterior/inferior endplate of C2. There does appear to be a corticated donor site within the C2 vertebral body suggesting this may reflect a remote fracture. Craniocervical and atlantoaxial alignment are anatomic on the lateral views. Minimal retrolisthesis of C5 on C6 is unchanged between flexion and extension. Mild anterolisthesis of C6 on C7 is slightly accentuated on the flexion film. The cervicothoracic junction is not well visualized due to attenuation at the level of the shoulders. Vertebral body heights are preserved. There is disc space narrowing and anterior marginal osteophyte formation at C5-C6 and C6-C7 consistent with degenerative disc disease. Uncovertebral spurring is present at C5-C6 and C6-C7 bilaterally. Procedure Note 07/16/2012 CERVICAL SPINE 4 VIEWS July 16, 2012 Indication: Neck pain. Comparison: None available. Technique: AP and lateral flexion, neutral and extension views of the cervical spine were obtained. Findings: There is a well-corticated osseous fragment noted inferior to the anterior/inferior endplate of C2. There does appear to be a corticated donor site within the C2 vertebral body suggesting this may reflect a remote fracture. Craniocervical and atlantoaxial alignment are anatomic on the lateral views. Minimal retrolisthesis of C5 on C6 is unchanged between flexion and extension. Mild anterolisthesis of C6 on C7 is slightly accentuated on the flexion film. The cervicothoracic junction is not well visualized due to attenuation at the level of the shoulders. Vertebral body heights are preserved. There is disc space narrowing and anterior marginal osteophyte formation at C5-C6 and C6-C7 consistent with degenerative disc disease. Uncovertebral spurring is present at C5-C6 and C6-C7 bilaterally. Lucy Pino MD IMG DIAGNOSTIC IMAGING ORDERABLES documented in this encounter Visit Diagnoses Diagnosis Neck pain- Primary Cervicalgia documented in this encounter Care Teams Pump And Still Operator Relationship Specialty Start Date End Date Sai Garg MD [address] [place] [phone] PCP - General 06/03/12 07/14/12 documented as of this encounter
--- OUTSIDE RECORDS SUMMARY | 2024-04-16 13:58 | XMS_ITS | Encounter Summary ---
Author Organization [facility] Address [address] [place] [address] Care Team Providers Care Business Objects Architect Name Role Phone Sherita Stanford MD Primary Care Provider Reason for Visit * Reason Onset Date Comments Appointment Related 06/02/2011 Encounter Details Date Type Department Care Team (Late st Contact Info) Description 06/02/2011 Orders Only [facility] Spine Program - [address] [place] [address] Lucy Pino MD [address] [place] [address] [place] [phone] Neck pain (Primary Dx) Social History [...] as of this encounter Visit Diagnoses Diagnosis Neck pain- Primary Cervicalgia documented in this encounter Care Teams Business Objects Architect Relationship Specialty Start Date End Date Sherita Stanford MD [address] [place] [address] PCP - General 05/04/11 06/02/12 documented as of this encounter
--- OUTSIDE RECORDS SUMMARY | 2024-04-16 13:58 | XMS_ITS | Encounter Summary ---
Author Organization [facility] Address [address] [place] [address] Care Team Providers Care Pool Manager Name Role Phone Reagan Foster MD Primary Care Pro vider Encounter Details Date Type Department Care Team (Late st Contact Info) Description 01/02/2014 Results Only Imaging [facility] [phone] Unknown, Provider, Social History Tobacco Use Types Packs/Day Years [...] you have serious difficulty h earing? No 01/02/2014 Are you blind or do you have serious difficulty seeing, even when wearing glasses? No 01/02/2014 Do you have serious difficul ty walking or climbing stairs? (5 years old or older) No 01/02/2014 Cognitive Status Response Date of Assessm ent Because of a physical, menta l, or emotional condition, do you have serious difficulty concentrating, remembering, or making decisions? (5 years old or older) Yes 11/13/2009 documented as of this encounter Plan of Treatment Pending Results Name Type Priority Associated Diagnoses Date /Time OUTSIDE IMAGES - OTHER CHEST Imaging 01/02/2014 10:03 EDT documented as of this encounter Visit Diagnoses Not on filedocumented in this encounter Care Teams Pool Manager Relationship Specialty [place] [address] [place] [phone] PCP - General 07/15/12 01/02/14 documented as of this encounter
--- OUTSIDE RECORDS SUMMARY | 2024-04-16 13:58 | XMS_ITS | Encounter Summary ---
Author Organization [facility] Address [address] [place] [address] Care Team Providers Care Green Hide Inspector Name Role Phone Reagan Foster MD Primary Care Pro vider Encounter Details Date Type Department Care Team (Latest Contact Info) Description 01/02/2014 10:33 EDT - 01/02/2014 11:47 EDT Hospital Encounter [facility] [address] [place] [address] Unknown, Provider, Discharge Disposition: Home or Self [...] Yes 11/13/2009 documented as of this encounter Medications at Time of Discharge Medication Sig Dispensed Refills Start Date End Date amitriptyline (ELAVIL) 50 mg tablet Take 50 mg by mouth at bedtime. aspirin chewable 81 mg tablet Take 1 Tab by mouth daily. 01/03/2014 citalopram (CELEXA) 20 mg tablet Take 60 mg by mouth daily. albuterol (PROVENTIL HFA, VENTOLIN HFA) 90 mcg/Actuation inhaler Inhale 2 Puffs as directed 4 times daily as needed for Wheezing. 01/23/2014 aspirin 325 mg tablet Take 1 Tab by mouth daily. 30 Tab 0 11/14/2009 01/03/2014 atorvastatin (LIPITOR) 40 mg tablet Take 1 Tab by mouth daily for 90 days. 30 Tab 2 01/03/2014 01/23/2014 baclofen (LIORESAL) 10 mg tablet Take 20 mg by mouth 2 times daily. 03/12/2015 clopidogrel (PLAVIX) 75 mg tablet Take 1 Tab by mouth daily for 120 days. 30 Tab 3 01/03/2014 04/03/2014 fluticasone (FLOVENT HFA) 44 mcg/Actuation inhaler Inhale 1 Puff as directed 2 times daily. 01/23/2014 levothyroxine (SYNTHROID) 25 mcg tablet Take 75 mcg by mouth daily. 01/23/2014 lisinopril (PRINIVIL, ZESTRIL) 10 mg tablet Take 10 mg by mouth daily. 01/03/2014 lisinopril (PRINIVIL, ZESTRIL) 20 mg tablet Take 1 Tab by mouth once for 90 days. 90 Tab 0 01/03/2014 01/23/2014 lithium (LITHOBID) 300 mg CR tablet Take 300 mg by mouth daily. 01/03/2014 lithium (LITHOBID) 300 mg CR tablet Take 600 mg by mouth at bedtime. 01/03/2014 metoprolol (LOPRESSOR) 25 mg tablet Take 1 Tab by mouth 2 times daily. 60 Tab 0 11/14/2009 01/03/2014 metoprolol XL (TOPROL-XL) 25 mg tablet Take 3 Tabs by mouth daily for 120 days. 90 Tab 3 01/03/2014 01/23/2014 nitroGLYCERIN (NITROSTAT) 0.[address] 1 Tab under the tongue every 5 minutes as needed for Chest Pain. 15 Tab 0 11/14/2009 03/12/2015 piroxicam (FELDENE) 20 mg capsule Take 20 mg by mouth daily. 01/23/2014 ranitidine (ZANTAC) 150 mg tablet Take 150 mg by mouth 2 times daily. 03/12/2015 simvastatin (ZOCOR) 40 mg tablet Take 1 Tab by mouth daily. 56 Tab 3 11/14/2009 01/03/2014 documented as of this encounter Discharge Disposition Disposition Code Departure Means Destination Home or Self Assisted documented in this encounter Plan of Treatment Pending Results Name Type Priority Associated Diagnoses Date /Time OUTSIDE IMAGES - OTHER CHEST Imaging 11/21/2014 16:35 EST Scheduled Orders Name Type Priority Associated Diagnoses Orde r Schedule OUTSIDE IMAGES - OTHER CHEST Imaging One Time for 1 Occurrences starting 11/21/2014 until 11/21/2014 documented as of this encounter Visit Diagnoses Not on filedocumented in this encounter Care Teams Green Hide Inspector Relationship Specialty Start [place] [address] [place] [phone] PCP - General 07/15/12 01/02/14 documented as of this encounter
--- OUTSIDE RECORDS SUMMARY | 2024-04-16 13:58 | XMS_ITS | Encounter Summary ---
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 Name Role Phone Sai Garg MD Primary Care Provi glynn Reason for Referral * (Routine) - Closed Specialty Diagnoses / Procedures Referred By Contac t Referred To Contact Juliocesar Schultz MD [address] [place] [phone] Referral ID Status Reason Start Date Expiration Date V isits Requested Visits Authorized [id number] Closed Specialty Services Required 01/23/2014 1 1 * (Routine) - Closed Specialty Diagnoses / Procedures Referred By Contac t Referred To Contact Juliocesar Schultz MD [address] [place] [phone] Referral ID Status Reason Start Date Expiration Date V isits Requested Visits Authorized [id number] Closed Specialty Services Required 01/23/2014 1 1 * (Routine) - Closed Specialty Diagnoses / Procedures Referred By Contabida t Referred To Contact Juliocesar Schultz MD [address] [place] [address] Referral ID Status Reason Start Date Expiration Date V isits Requested Visits Authorized [id number] Closed Specialty Services Required 01/23/2014 1 1 * Consult (Routine) - Closed Specialty Diagnoses / Procedures Referred By Contac t Referred To Contact Diagnoses ETOH abuse NSTEMI (non-ST elevated myocardial infarction) ([facility]) Juliocesar Schultz MD [address] [facility] [address] [place] [address] Referral ID Status Reason Start Date Expiration Date V isits Requested Visits Authorized [id number] Closed Specialty Services Required 01/22/2014 1 1 Question Answer Jail Referral - Assessment: CP Status Jail Referral - Disease Mgmt and Education about: Medication Mgmt Physical therapy is needed for: Evaluation Encounter Details Date Type Department Care Team (Late st Contact Info) Description 01/18/2014 0:04 EDT - 01/23/2014 18:19 EDT Hospital Encounter [facility] Cardiac/Telemetry Unit [address] [place] [address] Golden Rutherford MD [address] [facility] Level [address] [place] [address] NSTEMI (non-ST elevated myocardial infarction) ([facility]) (Primary Dx); Delirium tremens ([facility]); ETOH abuse; Alcohol withdrawal ([facility]) Discharge Disposition: Home or Self Care Social [...] Sign Reading Time Taken Comments Blood Pressure 120/72 01/23/2014 1517 EDT Pulse 64 01/21/2014 1616 EDT Temperature 35.7 ??C (96.3 ??F) 01/23/2014 1517 EDT Respiratory Rate 18 01/23/2014 1517 EDT Oxygen Saturation 98% 01/23/2014 1409 EDT Inhaled Oxygen Concentration - - Weight 61.2 kg (135 lb) 01/23/2014 0334 EDT Height 182.9 cm (6') 01/18/2014 0034 EDT Body Mass Index 18.31 01/18/2014 0034 EDT documented in this encounter Functional Status [...] No 01/18/2014 documented as of this encounter Discharge Summaries * Juliocesar Schultz MD - 01/23/2014 1441 EDT Discharge Summary Attending Physician: Golden Ellison MD Date of Admission: 01/18/2014 Date of Discharge: 01/23/2014 Disposition: improved Reason for Admission: NSTEMI Hospital Problems: Principal Problem: NSTEMI (non-ST elevated myocardial infarction) Active Problems: ETOH abuse Principal Procedure: Left heart cath, NM stress Secondary Procedures: NA Hospital Course: 58 y.o. male with a past medical history significant for HTN, HLD, COPD, hypothyroidism, chronic back pain, bipolar disorder, current heavy ethanol abuse (drinks a 12 pack of beer daily) who was recently discharged from the Cardiology service on 01/03/14 with NSTEMI after presentingwith chest pain and positive cardiac biomarkers, re-presenting with left substernal chest pain and positive cardiac biomarkers at OSH concerning for NSTEMI vs instent restenosis, although patient reports no missed doses of plavix since hospital discharge. Developed DTs with hypertension, tachycardia and visual hallucinations. Placed on CIWA protocol, often requiring 10 mg Valium every hour. BP remained elevated, initiated clonidine and labetalol prn. Cath was held as patient would not be able to hold still for procedure. Restraints were required as patient repeatedly trying to leave bed, thrashing out at staff. DTs slowly resolved. NM pharm stressrevealed moderate ischemia and LV 40%. Patient deemed stable for LHC, which revealed no significantchange compared to post-PCI films, no PCI performed. Started on lisinopril given HTN and EF of 40%. Clonidine discontinued. Sent home with A services for PT, med management, and CP assessment. Diagnostic Cardiac Study Results Left main: Free of angiographically significant disease. Left anterior descending: Patent stents. Wrap around apex. Left circumflex: OM1 ostial 40-50%, unchanged. Right coronary artery: Nondominant. Free of angiographically significant disease. No significant change compared to post-PCI films. Hemodynamic Results LVEDP Normal There was no gradient across the aortic valve. NM pharm stress test 01/21 1. Myocardial perfusion imaging: There is a small sized, moderately intense, fully reversible defect involving the mid anterior and apical anterior wall(s). This suggests small ischemia in the distribution of the left anterior descending coronary artery. There is a moderate sized, moderately intense, partially reversible defect involving the inferior and inferolateral wall(s). This suggests smallmyocardial infarction and small ischemia in the distribution of the right coronary artery. Overall ischemia: moderate. 2. The calculated left ventricular ejection fraction after stress: 40%. The calculated left ventricular ejection fraction at rest: 42%. LV global systolic function is mild to modera tely reduced. Diffuse left ventricular regional motion abnormalities. There is moderate hypokinesisinvolving the inferior wall(s) of the left ventricle, consistent with infarction. 3. Stress ECG conclusions: The stress ECG is negative. The specificity of this test is limited by resting ECG abnormalities. Clinical Issues Needing Follow-up: - management of EtOH abuse - management of CHF and CAD Results Pending at Discharge: Test results still pending from this admission None Discharge Medications: START taking these medications Sig folic acid 1 mg tablet Commonly known as: FOLVITE 1 mg, oral, DAILY gabapentin 100 mg capsule Commonly known as: NEURONTIN 100 mg, oral, 3 TIMES DAILY * HYDROcodone-acetaminophen 2.5-325 mg Commonly known as: NORCO 1 Tab, oral, EVERY 4 HOURS * HYDROcodone-acetaminophen 2.5-325 mg Commonly known as: NORCO 1 Tab, oral, EVERY 4 HOURS PRN mometasone-formoterol 100-5 mcg/actuation Commonly known as: DULERA 2 Puffs, inhalation, 2 TIMES DAILY Multivitamins with Minerals tablet 1 Tab, oral, DAILY thiamine 100 mg tablet Commonly known as: VITAMIN B1 100 mg, oral, DAILY tiotropium 18 mcg inhalation capsule Commonly known as: SPIRIVA 18 mcg, inhalation, DAILY * Notice: This list has 2 medication(s) that are the same as other medications prescribed for you. Read the directions carefully, and ask your doctor or other care provider to review them with you. CHANGE how you take these medications Sig levothyroxine 75 mcg tablet Commonly known as: SYNTHROID What changed: - medication strength - when to take this 75 mcg, oral, DAILY BEFORE BREAKFAST lisinopril 20 mg tablet Commonly known as: PRINIVIL ZESTRIL What changed: how much to take 10 mg, oral, ONCE metoprolol XL 100 mg tablet Commonly known as: TOPROL-XL What changed: - medication strength - how much to take 100 mg, oral, DAILY CONTINUE taking these medications Sig albuterol 90 mcg/actuation inhaler Commonly known as: VENTOLIN HFA 2 Puffs, inhalation, 4 TIMES DAILY PRN amitriptyline 50 mg tablet Commonly known as: ELAVIL 50 mg, oral, AT BEDTIME, aspirin chewable 81 mg tablet 81 mg, oral, DAILY atorvastatin 40 mg tablet Commonly known as: LIPITOR 40 mg, oral, DAILY baclofen 10 mg tablet Commonly known as: LIORESAL 20 mg, oral, 2 TIMES DAILY, citalopram 20 mg tablet Commonly known as: CELEXA 60 mg, oral, DAILY, clopidogrel 75 mg tablet Commonly known as: PLAVIX 75 mg, oral, DAILY nitroGLYCERIN 0.4 mg SL tablet Commonly known as: NITROSTAT 0.4 mg, sublingual, EVERY 5 MIN PRN ranitidine 150 mg tablet Commonly known as: ZANTAC 150 mg, oral, 2 TIMES DAILY, STOP taking these medications fluticasone 44 mcg/actuation inhaler Commonly known as: FLOVENT HFA piroxicam 20 mg capsule Commonly known as: FELDENE Allergies: Tegretol Appointments Scheduled with Jacob Eubanks in the Next 3 Months: Follow-Up Appointments and Procedures Recommended to Patient: Follow-Up Labs and Tests: Home Health [id number] Encounter: I certify that this patient is under my care and that I, or a Medicare authorized non-physician provider (BRONZE CHASER or PA) working with me, had a [id number] encounter with this patient on 01/23/2014 that was in whole or in part related to the reason the patient needs home health care. The findings of thisencounter indicate that the patient requires prison or therapist services for the reasons listed below. longterm services: - are required to train the patient/caregiver to manage the treatment regimen for this illness or condition Skilled therapist services: - are required because of the complexity of the therapy needed to treat the injury, illness or condition Additionally, the findings of this encounter support that the patient is homebound because: - the severity of cardiac or pulmonary disease limits activity tolerance * Lisbeth Lopez RN - 01/22/2014 0743 EDT YOUR CHRONIC CARE INITIATIVE TINSEL MACHINE OPERATOR: Lisette Garcia [phone] documented in this encounter Medications at Time [...] for Wheezing. 1 Inhaler 2 01/23/2014 03/12/2015 atorvastatin (LIPITOR) 40 mg tablet Take 1 Tab by mouth daily for 30 days. 30 Tab 0 01/23/2014 02/22/2014 baclofen (LIORESAL) 10 mg tablet Take 20 mg by mouth 2 times daily. 03/12/2015 clopidogrel (PLAVIX) 75 mg tablet Take 1 Tab by mouth daily for 120 days. 30 Tab 3 01/03/2014 04/03/2014 folic acid (FOLVITE) 1 mg tablet Take 1 Tab by mouth daily. 30 Tab 0 01/23/2014 03/12/2015 gabapentin (NEURONTIN) 100 mg capsule Take 1 Cap by mouth 3 times daily for 30 days. 90 Cap 0 01/23/2014 02/22/2014 HYDROcodone-acetaminoph en (NORCO) 2.5-325 mg Take 1 [...] days. 90 Tab 0 01/23/2014 04/23/2014 metoprolol XL (TOPROL-XL) 100 mg tablet Take 1 Tab by mouth daily for 30 days. 30 Tab 0 01/23/2014 02/22/2014 nitroGLYCERIN (NITROSTAT) 0.[address] [...] Dispensed Refills Start Date End Da te Multivitamins with Minerals tablet Take 1 Tab by mouth daily. 30 Tab 0 01/23/2014 mometasone-formoterol (DULERA) 100-5 mcg/actuation Inhale 2 Puffs as directed 2 times daily. 1 Inhaler 0 01/23/2014 HYDROcodone-acetaminophe n (NORCO) 2.5-325 mg Take 1 Tab by mouth every 4 hours as needed for Pain. 3 Tab 0 01/23/2014 03/12/2015 HYDROcodone-acetaminophe n (NORCO) 2.5-325 mg Take 1 Tab by mouth every 4 hours. 3 Tab 0 01/23/2014 03/12/2015 HYDROcodone-acetaminophe n (NORCO) 2.5-325 mg Take 1 Tab by mouth every 4 hours. 3 Tab 0 01/23/2014 01/23/2014 folic acid (FOLVITE) 1 mg tablet Take 1 Tab by mouth daily. 30 Tab 0 01/23/2014 03/12/2015 thiamine (VITAMIN B1) 100 mg tablet Take 1 Tab by mouth daily. 30 Tab 0 01/23/2014 03/12/2015 tiotropium (SPIRIVA) 18 mcg inhalation capsule Inhale 1 Cap as directed daily. 1 Box 0 01/23/2014 03/12/2015 thiamine (VITAMIN B1) 100 mg tablet Take 1 Tab by mouth daily. 30 Tab 0 01/23/2014 01/23/2014 Multivitamins with Minerals tablet Take 1 Tab by mouth daily. 30 Tab 0 01/23/2014 01/23/2014 metoprolol XL (TOPROL-XL) 100 mg tablet Take 1 Tab by mouth daily for 30 days. 30 Tab 0 01/23/2014 02/22/2014 lisinopril (PRINIVIL, ZESTRIL) 20 mg tablet Take 0.5 Tabs by mouth once for 90 days. 90 Tab 0 01/23/2014 04/23/2014 levothyroxine (SYNTHROID) 75 mcg tablet Take 1 Tab by mouth daily before breakfast. 30 Tab 0 01/23/2014 03/12/2015 gabapentin (NEURONTIN) 100 mg capsule Take 1 Cap by mouth 3 times daily for 30 days. 90 Cap 0 01/23/2014 02/22/2014 folic acid (FOLVITE) 1 mg tablet Take 1 Tab by mouth daily. 30 Tab 0 01/23/2014 01/23/2014 atorvastatin (LIPITOR) 40 mg tablet Take 1 Tab by mouth daily for 30 days. 30 Tab 0 01/23/2014 02/22/2014 albuterol (VENTOLIN HFA) 90 mcg/actuation inhaler Inhale 2 Puffs as directed 4 times daily as needed for Wheezing. 1 Inhaler 2 01/23/2014 03/12/2015 documented in this encounter Discharge Disposition Disposition Code Departure Means Destination Home or Self Care documented in this encounter Progress Notes * Lisbeth Lopez RN - 01/26/2014 0832 EDT CM DISCHARGE NOTE: Pt was discharged home with Home Health Services. Lisbeth Lopez, RN #[id number] * Alisson Welsh, PT - 01/23/2014 1105 EDT Rehabilitation Therapies [facility] Physical Therapy Contact Note Date of Service: 01/23/2014 PT Referral received. Chart reviewed yesterday. Checked in this morning to complete evaluation. Patient just returning to room after [facility]- Discussed mobility status with RN who feels he is doing fine ambulating and will likely go home this afternoon. No PT indicated at this time. ALISSON WELSH, PT 01/23/2014 11:05 * Juliocesar Schultz MD - 01/23/2014 0854 EDT Cardiology progress note CC: CP Dx: NSTEMI 24 hour events: - JEAN-PIERRE Subj: C/o lower back pain and pain in his feet b/l. Describes pain in feet as burning sensation, chronic. Nothing makes better or worse. Makes it painful to ambulate. Denies SOB, CP, palpitations. Review of systems: An 10-point review of systems was normal except as documented. Meds Amitriptyline, ASA 81, atorvastatin 40 mg, citalopram, clopidogrel, lisinopril, FA/thiamine, synthroid, metoprolol XL 100 mg, nitro prn, raniditine, tiotropium Examination: BP 121/70 Pulse 64 Temp(Src) 35.8 ??C (96.4 ??F) (Tympanic) Resp 16 Ht 182.9 cm (72) Wt 61.236 kg (135 lb) BMI 18.31 kg/m2 SpO2 99% Gen: NAD, A+Ox3, speech improved, calm CVS: S1,S2 normal No added sounds No murmurs No AMANDA No elevated JVP Pulse regular RS: CTA No crackles or wheeze Abd: NT/ND BS+ Skin: Intact No rash MSK Yellowing of toenails, no joint deformity or erythema; skin dry and cracked Labs Hb.4 Plt: 96 Stress test 01/21 1. Myocardial perfusion imaging: There is a small sized, moderately intense, fully reversible defect involving the mid anterior and apical anterior wall(s). This suggests small ischemia in the distribution of the left anterior descending coronary artery. There is a moderate sized, moderately intense, partially reversible defect involving the inferior and inferolateral wall(s). This suggests smallmyocardial infarction and small ischemia in the distribution of the right coronary artery. Overall ischemia: moderate. 2. The calculated left ventricular ejection fraction after stress: 40%. The calculated left ventricular ejection fraction at rest: 42%. LV global systolic function is mild to modera tely reduced. Diffuse left ventricular regional motion abnormalities. There is moderate hypokinesisinvolving the inferior wall(s) of the left ventricle, consistent with infarction. 3. Stress ECG conclusions: The stress ECG is negative. The specificity of this test is limited by resting ECG abnormalities. Assessment 58 y.o. m w/p/m/h of HTN, HLD, COPD, hypothyroidism, chronic back pain, bipolar disorder, and alcohol abuse, discharged from the Cardiology service on 01/03/14 after NSTEMI who was transferred form OSH with [facility], and +CE concerning for new NSTEMI vs in stent thrombosis (this is less likely as I would expect his biomarkers to be higher). TropI peaked at 0.260. NM Spect suggests moderate ischemia, will perform LHC. PLAN: HTN/CAD/HLPNSTEMI w/ reduced systolic function: NM Spect suggests EF 40% -telemetry -Cont.asa 81mg, plavix 75mg - Cont. 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 Albuterol Depression/bipolar disorder - Continue citalopram to 40mg daily (patient was on 60 mg daily. Patient has not seen listed PCP Dr. Sai Garg per their office, unclear who is prescribing Rx) - Cont home amitriptyline 50mg daily Hypothyroidism - Continue home levothyroxine 75mcg daily Pain control - APAP prn - Topical lidoderm patch to chest wall - D/C dilaudid FEN: cardiac diet after [facility] Code: FULL DVT PPx: SCDs, hold heparin for [facility] Disposition: Pending clinical course Juliocesar Schultz MD 01/23/2014 8:54 PGY1 #[id number] * Alisson Welsh, PT - 01/22/2014 1615 EDT Rehabilitation Therapies [facility] Physical Therapy Contact Note Date of Service: 01/22/2014 PT referral received. Chart Reviewed. Met briefly with patient at bedside, reporting hx back and shoulder pain. Reports awaiting cardiac procedure tomorrow. Will check in tomorrow morning on timing of procedure and try to eval prior to procedure, with fullnote follow. RN reports that he is walking in the room without difficulty. ALISSON WELSH, PT 01/22/2014 16:15 * Lisbeth Lopez, RN - 01/22/2014 0942 EDT Brief Case Management Assessment & Initial Discharge Plan Reason for Hospitalization: 58 y.o. m w/p/m/h of HTN, HLD, COPD, hypothyroidism, chronic back pain, bipolar disorder, and alcohol abuse, discharged from the Cardiology service on 01/03/14 after NSTEMI who was transferred form OSH with [facility], and +CE concerning for new NSTEMI vs in stent thrombosis. Hospital course complicated by alcohol withdrawal. Current Living Arrangements: Patient lives in [place] Current Social, Health Care and Community Supports: maya Watson, Identified Case Management/Social Work Needs and Issues (housing, care, financial, transportation, cultural, spiritual, emotional, legal, etc.): Patient is typically independent at home. He does not use DME. Spoke with patient regarding inpatient alcohol rehab. Patient declining, states he's been to rehab before and is not interested in returning. Patient states he will not drink when he gets home. Case Management Actions (completed and planned): Met with patient and explained role. Plan [facility] tomorrow if available. Once stable he will d/c home with home health services for CP assessment, med compliance and PT (patient c/o weak legs and slightly dizzy). [facility] can transport. CM will follow. Lisbeth Lopez RN [facility] #[id number] * Juliocesar Schultz MD - 01/22/2014 0901 EDT Cardiology progress note CC: CP Dx: NSTEMI 24 hour events: - JEAN-PIERRE Subj: Patient continues to c/o intermittent stabbing pain in his LUQ. C/o 7/10 pain, requests pain meds. Continues to c/o of burning in big toes b/l, chronic. Reports no BM since admission. Frustrated he has to wait until tomorrow for C. Denies SOB, CP, palpitations. Review of systems: An 10-point review of systems was normal except as documented. Meds Amitriptyline, ASA 81, atorvastatin 40 mg, citalopram, clonidine, clopidogrel, diazepam prn, FA/thiamine, synthroid, metoprolol XL 100 mg, nitro prn, raniditine, tiotropium Examination: BP 128/86 Pulse 64 Temp(Src) 35.8 ??C (96.4 ??F) (Tympanic) Resp 16 Ht 182.9 cm (72) Wt 61.145 kg (134 lb 12.8 oz) BMI 18.28 kg/m2 SpO2 99% Gen: NAD, A+Ox3, speech improved, calm CVS: S1,S2 normal No added sounds No murmurs No AMANDA No elevated JVP Pulse regular RS: CTA No crackles or wheeze Bony spur R lower rib, mild tenderness Abd: NT/ND BS+ Skin: Intact No rash Erythematous face MSK Onchomycosis, right 1st metatarsal tender to dorsiflexion Labs M.7 Phos: 4.5 Plt: 78 Stress test 01/21 1. Myocardial perfusion imaging: There is a small sized, moderately intense, fully reversible defect involving the mid anterior and apical anterior wall(s). This suggests small ischemia in the distribution of the left anterior descending coronary artery. There is a moderate sized, moderately intense, partially reversible defect involving the inferior and inferolateral wall(s). This suggests smallmyocardial infarction and small ischemia in the distribution of the right coronary artery. Overall ischemia: moderate. 2. The calculated left ventricular ejection fraction after stress: 40%. The calculated left ventricular ejection fraction at rest: 42%. LV global systolic function is mild to modera tely reduced. Diffuse left ventricular regional motion abnormalities. There is moderate hypokinesisinvolving the inferior wall(s) of the left ventricle, consistent with infarction. 3. Stress ECG conclusions: The stress ECG is negative. The specificity of this test is limited by resting ECG abnormalities. Assessment 58 y.o. m w/p/m/h of HTN, HLD, COPD, hypothyroidism, chronic back pain, bipolar disorder, and alcohol abuse, discharged from the Cardiology service on 01/03/14 after NSTEMI who was transferred form OSH with [facility], and +CE concerning for new NSTEMI vs in stent thrombosis (this is less likely as I would expect his biomarkers to be higher). TropI peaked at 0.260. NM Spect suggests moderate ischemia, will perform LHC. PLAN: HTN/CAD/HLPNSTEMI w/ reduced systolic function: NM Spect suggests EF 40% -telemetry -Cont.asa 81mg, plavix 75mg - Cont. atorvastatin 40mg daily - Cont metoprolol XL 100mg - start lisinopril 10 mg (EF 40%) - stop clonidine 0.2mg qdaily - NPO at midnight - LHC tomorrow Thrombocytopenia: blood smear consistent with EtOHism; no plt clumping; stable - CBC qdaily Chest tenderness: chronic tenderness around left inferior floating rib; Xray of ribs suggests possible benign osseous lesion; unclear etiology of pain; possibly 2/2 constipation given no BM in days - senna, colace; start miralax - Tylenol prn 1st metatarsal tender b/l: chronic per pt; burning sensation; unlikely gout given normal uric acid and no joint inflammation; possibly onychomycosis vs. neuropathy - Tylenol prn ETOH Abuse: DTs resolved - stop CIWA protocol - daily MVM, folic acid and thiamine supplementation COPD/tobacco abuse - Nicotine replacement therapy - Smoking cessation counseling - Change flovent inhalers to Dulera - Start Spiriva - Cont. Albuterol Depression/bipolar disorder - Continue citalopram to 40mg daily (patient was on 60 mg daily. Patient has not seen listed PCP Dr. Sai Garg per their office, unclear who is prescribing Rx) - Cont home amitriptyline 50mg daily Hypothyroidism - Continue home levothyroxine 75mcg daily Pain control - APAP prn - Topical lidoderm patch to chest wall - D/C dilaudid FEN: NPO at midnight for C Code: FULL DVT PPx: heparin 5000 U BID, SCDs Disposition: Pending clinical course Juliocesar Schultz MD 01/22/2014 9:01 PGY1 #[id number] * Juliocesar Schultz MD - 01/21/2014 1518 EDT Cardiology update note - nuclear stress test revealed moderate ischemia risk; recommend cath - scheduled for cath Sunday; will make NPO midnight if opening occurs tomorrow - left rib xray read pending Juliocesar Schultz MD 01/21/2014 15:21 * Chico Posey MD - 01/21/2014 0800 EDT Cardiology progress note CC: CP Dx: NSTEMI 24 hour events: - no CIWA scoring over night, no Valium overnight Subj: Patient continues to c/o intermittent stabbing pain in his LUQ, says it is chronic. Has a bump, on his rib cage there that is tender. Doctors have not been able to tell him the cause. Also c/o chronic pain in his big toes b/l, though R>L. Very tender to touch, feels like skin is cracking. No hx of gout per patient. Denies SOB, CP, palpitations. Review of systems: An 10-point review of systems was normal except as documented. Meds Amitriptyline, ASA 81, atorvastatin 40 mg, citalopram, clonidine, clopidogrel, diazepam prn, FA/thiamine, labetalol prn, synthroid, lisinopril, metoprolol XL 100 mg, nitro prn, raniditine, tiotropium Examination: BP 113/73 Pulse 63 Temp(Src) 36.3 ??C (97.3 ??F) (Tympanic) Resp 16 Ht 182.9 cm (72) Wt 60.873 kg (134 lb 3.2 oz) BMI 18.2 kg/m2 SpO2 97% Gen: NAD, A+Ox3, speech improved, calm CVS: S1,S2 normal No added sounds No murmurs No AMANDA No elevated JVP Pulse regular RS: CTA No crackles or wheeze Bony spur R lower rib, mild tenderness Abd: NT/ND BS+ Skin: Intact No rash Erythematous face MSK R 1st metatarsal mild erythema, tender, non-swollen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 Has Stable Vital Signs And Fluid Balance Outcome: Ongoing Data: Patient arrived to [place] [address]. Patient is in NSR with a HR in the 70's - BP = 119/68 and SpO2 = 98% on 2L of O2 via nasal cannula. Patient complained of 8/10 left lower chest pain upon arrival to the unit. Patient's IV Heparin gtt is currently infusing at 7.5 mL/hr as per MD order - next PTT due at 08:40. Action: Notified MD Alvarez and administered 650 mg PO Tylenol as per MD PRN order. Administered 4 mg PO Ativan as per MD PRN order and the CIWA protocol at 01:15. Assessment as documented in flow sheet. Admission database completed. Patient orientated to room, equipment, and care plan. Response: Upon reassessment patient was sleeping quietly in bed. Patient is currently not scoring on the CIWA Scoring protocol. Will continue to monitor and document per protocol. 06:20 - Patient was hard to arouse for morning vitals - manual BP = 90/55. MD Alvarez paged and is aware - q 4 hr neuro checks ordered by MD. 06:40 - Administered 500 mL IV NS bolus as per MD x1 order - will continue to monitor. documented in this encounter Plan of Treatment Pending Results Name Type Priority Associated Diagnoses Date /Time OUTSIDE IMAGES - OTHER CHEST Imaging 01/17/2014 22:21 EDT OUTSIDE IMAGES - OTHER CHEST Imaging 01/17/2014 22:25 EDT Scheduled Referrals Name Type Priority Associated Diagnoses Order Schedule FROM - AMB CONS/FOLLOW UP HOME HEALTH SERVICES Outpatient Referral Routine ETOH abuse NSTEMI (non-ST elevated myocardial infarction) ([facility]) Ordered: 01/22/2014 PROVIDER FOLLOW-UP INSTRUCTIONS Outpatient Referral Routine Ordered: 01/23/2014 PROVIDER FOLLOW-UP INSTRUCTIONS Outpatient Referral Routine Ordered: 01/23/2014 PROVIDER FOLLOW-UP INSTRUCTIONS Outpatient Referral Routine Ordered: 01/23/2014 documented as of this encounter Procedures Procedure Name Priority Date/Time Associated Diagnosis Comments INVASIVE CARDIOLOGY REPORT-SCANNED 09/29/2015 13:24 EST STRESS TEST - SCANNED 02/03/2014 9:21 EDT INVASIVE CARDIOLOGY REPORT-SCANNED 01/27/2014 11:34 EDT ECG REPORT - SCANNED 01/27/2014 11:34 EDT ECG REPORT - SCANNED 01/27/2014 11:34 EDT LEFT HEART CATH Routine 01/23/2014 11:39 EDT COMPLETE BLOOD COUNT Routine 01/23/2014 6:20 EDT BUN Routine 01/23/2014 6:20 EDT CREATININE Routine 01/23/2014 6:20 EDT ELECTROLYTES Routine 01/23/2014 6:20 EDT INPATIENT ADD-ON Routine 01/22/2014 7:25 EDT COMPLETE BLOOD COUNT Routine 01/22/2014 6:21 EDT BUN Routine 01/22/2014 6:21 EDT PHOSPHORUS Routine 01/22/2014 6:21 EDT MAGNESIUM Routine 01/22/2014 6:21 EDT CREATININE Routine 01/22/2014 6:21 EDT ELECTROLYTES Routine 01/22/2014 6:21 EDT RIBS UNI 2 VIEWS LEFT Routine 01/21/2014 14:36 EDT NM CARDIAC SPECT STUDY WAVEFORM 01/21/2014 11:33 EDT NM CARDIAC SPECT STUDY 01/21/2014 9:53 EDT INPATIENT ADD-ON Routine 01/21/2014 8:05 EDT CK MB WITH TOTAL CK Routine 01/21/2014 7 :28 EDT INPATIENT ADD-ON Routine 01/21/2014 6:45 EDT COMPLETE BLOOD COUNT Routine 01/21/2014 6:01 EDT URIC ACID Routine 01/21/2014 6:01 EDT BUN Routine 01/21/2014 6:01 EDT MAGNESIUM Routine 01/21/2014 6:01 EDT CREATININE Routine 01/21/2014 6:01 EDT ELECTROLYTES Routine 01/21/2014 6:01 EDT INPATIENT ADD-ON Routine 01/21/2014 2:10 EDT INPATIENT ADD-ON Routine 01/20/2014 9:10 EDT SLIDE REQUEST Routine 01/20/2014 8:02 EDT PROSPER DIFF COMMENT Routine 01/20/2014 8:0 2 EDT PTT Routine 01/20/2014 8:02 EDT COMPLETE BLOOD COUNT Routine 01/20/2014 8:02 EDT BUN Routine 01/20/2014 8:02 EDT PHOSPHORUS Routine 01/20/2014 8:02 EDT MAGNESIUM Routine 01/20/2014 8:02 EDT CREATININE Routine 01/20/2014 8:02 EDT ELECTROLYTES Routine 01/20/2014 8:02 EDT ECG REPORT - SCANNED 01/19/2014 14:15 EDT CK MB WITH TOTAL CK Routine 01/19/2014 1 3:52 EDT PTT Routine 01/19/2014 5:40 EDT COMPLETE BLOOD COUNT Routine 01/19/2014 5:40 EDT BUN Routine 01/19/2014 5:40 EDT CREATININE Routine 01/19/2014 5:40 EDT LIPID PROFILE (INCLUDES CHOLESTEROL, TRIGLYCERIDES, HDL, LDL) Routine 01/19/2014 5:40 EDT ELECTROLYTES Routine 01/19/2014 5:40 EDT PTT STAT 01/18/2014 16:43 EDT TROPONIN I Routine 01/18/2014 13:58 EDT CK MB WITH TOTAL CK Routine 01/18/2014 1 3:58 EDT INPATIENT ADD-ON STAT 01/18/2014 10:3 7 EDT PTT Routine 01/18/2014 8:[address] HEAD WO CONTRAST 01/18/2014 7 :17 EDT ZZBLOOD GAS, G3 ISTAT Routine 01/18/2014 6:53 EDT TROPONIN I Routine 01/18/2014 6:43 EDT PTT STAT 01/18/2014 6:43 EDT PROTIME Routine 01/18/2014 6:43 EDT COMPLETE BLOOD COUNT Routine 01/18/2014 6:43 EDT BUN Routine 01/18/2014 6:43 EDT CREATININE Routine 01/18/2014 6:43 EDT CK MB WITH TOTAL CK Routine 01/18/2014 6 :43 EDT ETHANOL, BLOOD Routine 01/18/2014 6:43 EDT ELECTROLYTES Routine 01/18/2014 6:43 EDT INPATIENT ADD-ON Routine 01/18/2014 3:35 EDT INPATIENT ADD-ON STAT 01/18/2014 2:58 EDT INPATIENT ADD-ON Routine 01/18/2014 2:38 EDT SCREENING GLUCOSE Routine 01/18/2014 1:0 2 EDT TROPONIN I Routine 01/18/2014 1:02 EDT PTT STAT 01/18/2014 1:02 EDT PROTIME Routine 01/18/2014 1:02 EDT COMPLETE BLOOD COUNT Routine 01/18/2014 1:02 EDT BUN Routine 01/18/2014 1:02 EDT ALT Routine 01/18/2014 1:02 EDT AST Routine 01/18/2014 1:02 EDT ALKALINE PHOSPHATASE Routine 01/18/2014 1:02 EDT MAGNESIUM Routine 01/18/2014 1:02 EDT HEMOGLOBIN A1C Routine 01/18/2014 1:02 EDT CREATININE Routine 01/18/2014 1:02 EDT CK MB WITH TOTAL CK Routine 01/18/2014 1 :02 EDT ETHANOL, BLOOD Routine 01/18/2014 1:02 EDT ELECTROLYTES Routine 01/18/2014 1:02 EDT EKG 12-LEAD Routine 01/18/2014 0:50 EDT documented in this encounter Results * INVASIVE CARDIOLOGY REPORT-SCANNED (09/29/2015 13:24 EST) 09/29/2015 13:2 4 EST Scan 2 [employer] PROCEDURE/MINOR AMITA GICAL ORDERABLES * STRESS TEST - SCANNED (02/03/2014 9:21 EDT) Anatomical Region Laterality Modality Other 02/03/2014 9:21 EDT Scan 2 [employer] IMG OTHER IMAGING O RDERABLES * INVASIVE CARDIOLOGY REPORT-SCANNED (01/27/2014 11:34 EDT) 01/27/2014 11:3 4 EDT Scan 2 [employer] PROCEDURE/MINOR AMITA GICAL ORDERABLES * ECG REPORT - SCANNED (01/27/2014 11:34 EDT) 01/27/2014 11:3 4 EDT Scan 2 [employer] PROCEDURE/MINOR AMITA GICAL ORDERABLES * ECG REPORT - SCANNED (01/27/2014 11:34 EDT) 01/27/2014 11:3 4 EDT Scan 2 [employer] PROCEDURE/MINOR AMITA GICAL ORDERABLES * LEFT HEART CATH (01/23/2014 11:39 EDT) Anatomical Region Laterality Modality Other 01/23/2014 11:3 9 EDT Narrative 01/23/2014 19:48 EDT [address] [place] [id number] Catheterization Laboratory Study Patient: Jimenez Barkley ? Study Date: ?01/23/2014 ?Accession #: ? [id number] : ? 1955 Diagnostic Attending: ??Elias Glass Diagnostic Fellow: Ravi Puri ?? ATTESTATION: Dr. Elias Glass was present and supervising for the entire procedure, I, Dr. Elias Glass have reviewed and agree with the findings of this report. PROCEDURE PLAN: A diagnostic study was performed without intervention. RESEARCH STUDY: Patient is not enrolled in any research studies. IMPRESSIONS: 1. The patient's chest discomfort does not appear due to obstructive coronary ?? artery disease. 2. Coronary artery disease, probably due to atherosclerosis, predominantly ?? involving the LAD, status post stent placement. No stent restenosis. No ?? significant changes compared to earlier films after PCI. SUMMARY: 1. HPI and indications: Uqg-IH-pahsrqzu myocardial infarction. 2. 2nd obtuse marginal: Ostial lesion: There is a 55% stenosis. This lesion is ?? unchanged from a prior study. RECOMMENDATIONS: Patient management should include medical therapy. HISTORY: Wup-AP-hmtqzzvw myocardial infarction. ??PMH: ?? Chronic lung disease. ??Functional status: ?? CCS class IV (angina at rest or with any physical activity). ??Risk factors: ??Current tobacco use. Hypertension. Dyslipidemia. ??Medications: ??Beta blockers. Anti-anginal therapy. ??Aspirin. ??Clopidogrel (Plavix). LABS, PRIOR TESTS, PROCEDURES AND SURGERY: Serum creatinine (current admission) of 0.7 mg/dl. ??Hematocrit of 39 %. Platelet count of 96 th/ul. ??Serum potassium (K) of 4.9 mEq/l. ??Blood urea nitrogen of 18 mg/dl. ??Hemoglobin (pre-procedure) of 13.4 g/dl. ??Catheterization with coronary intervention. STUDY DATA: Location: ??Catheterization laboratory. Sex: male. Patient is 58yr old. Height: 182.9cm. Weight: 61.1kg. BSA: 1.75m^2. Procedures performed: ?Right radial artery access. ?Left coronary angiography. ?Right coronary angiography. PROCEDURE: 1. Initial setup. The patient was brought to the laboratory in the fasting ?? state. A baseline ECG was recorded. Surface ECG leads, automatic cuff blood ?? pressure measurements, and pulse oximetric signals were monitored. 2. Skin preparation. The planned puncture sites were prepped with chlorhexidine ?? and draped in the usual sterile manner. 3. Right radial artery access. A 6 FR/10 [employer] Sheath Throckmorton SS .021 sheath was ?? advanced into the vessel. 4. Selective left coronary angiography. A 5 FR Ricardo catheter was advanced into ?? the left coronary vessel ostium under fluoroscopic guidance. Contrast was ?? injected by hand. Images were obtained in multiple projections. 5. Selective right coronary angiography. A 5 FR Ricardo catheter was advanced into ?? the right coronary vessel ostium under fluoroscopic guidance. Contrast was ?? injected by hand. Images were obtained in multiple projections. 6. Right radial artery hemostasis. Mechanical compression was applied. STUDY COMPLETION: The estimated blood loss was 10ml. All catheters inserted during the procedure were removed. The patient tolerated the procedure well and was discharged from the lab. There were no complications. ??Administered medications: ?? Midazolam, for a total dose of 3mg. ??Fentanyl, for a total dose of 100mcg. ??Fluoroscopy time: ??2.1min. ??Fluoroscopy dose: ??29cGy. CORONARY ARTERIES: The coronary circulation is left dominant. Left main: ??Normal. LAD: Prior intervention: stent in the proximal LAD. The stented segment is patent. Left circumflex: ??Normal. 2nd obtuse marginal: ??Ostial lesion: There is a 55% stenosis. This lesion is unchanged from a prior study. Right coronary: ??Normal. HEMODYNAMICS: End diastolic pressure in the left ventricle is normal. Pressure measurements across the aortic valve show no evidence of stenosis. + + + Stage description ? Condition1:Condition 1 - + + + LV pressure s/ed ? 100/5 ? + + + Arterial pressure s/d (m) 98/60 (75) ? + + + * Electronically signed by Elias Glass Jr., MD 2014-01-23 19:47 Procedure Note 01/23/[address] [place] [id number] Catheterization Laboratory Study Patient: Jimenez Barkley Study Date:01/23/2014 : 1955 Diagnostic Attending: Elias Glass Diagnostic Fellow: Ravi Puri ATTESTATION: Dr. Elias Glass was present and supervising for the entire procedure, I,Dr. Elias Glass have reviewed and agree with the findings of this report. PROCEDURE PLAN: A diagnostic study was performed without intervention. RESEARCH STUDY: Patient is not enrolled in any research studies. IMPRESSIONS: 1. The patient's chest discomfort does not appear due to obstructivecoronary artery disease. 2. Coronary artery disease, probably due to atherosclerosis, predominantly involving the LAD, status post stent placement. No stent restenosis. No significant changes compared to earlier films after PCI. SUMMARY: 1. HPI and indications: Phz-YL-scyzfpyv myocardial infarction. 2. 2nd obtuse marginal: Ostial lesion: There is a 55% stenosis. Thislesion is unchanged from a prior study. RECOMMENDATIONS: Patient management should include medical therapy. HISTORY: Cgo-JG-ziqdtrsp myocardial infarction. PMH: Chronic lung disease.Functional status: CCS class IV (angina at rest or with any physical activity).Risk factors: Current tobacco use. Hypertension. Dyslipidemia. Medications:Beta blockers. Anti-anginal therapy. Aspirin. Clopidogrel (Plavix). LABS, PRIOR TESTS, PROCEDURES AND SURGERY: Serum creatinine (current admission) of 0.7 mg/dl. Hematocrit of 39 %. Platelet count of 96 th/ul. Serum potassium (K) of 4.9 mEq/l. Blood urea nitrogen of 18 mg/dl. Hemoglobin (pre-procedure) of 13.4 g/dl.Catheterization with coronary intervention. STUDY DATA: Location: Catheterization laboratory. Sex: male. Patient is 58yr old.Height: 182.9cm. Weight: 61.1kg. BSA: 1.75m^2. Procedures performed: Right radial artery access. Left coronary angiography. Right coronary angiography. PROCEDURE: 1. Initial setup. The patient was brought to the laboratory in the fasting state. A baseline ECG was recorded. Surface ECG leads, automatic cuffblood pressure measurements, and pulse oximetric signals were monitored. 2. Skin preparation. The planned puncture sites were prepped withchlorhexidine and draped in the usual sterile manner. 3. Right radial artery access. A 6 FR/10 [employer] Sheath Throck[employer] SS .021sheath was advanced into the vessel. 4. Selective left coronary angiography. A 5 FR Ricardo catheter was advancedinto the left coronary vessel ostium under fluoroscopic guidance. Contrastwas injected by hand. Images were obtained in multiple projections. 5. Selective right coronary angiography. A 5 FR Ricardo catheter wasadvanced into the right coronary vessel ostium under fluoroscopic guidance. Contrastwas injected by hand. Images were obtained in multiple projections. 6. Right radial artery hemostasis. Mechanical compression was applied. STUDY COMPLETION: The estimated blood loss was 10ml. All catheters inserted during theprocedure were removed. The patient tolerated the procedure well and was dischargedfrom the lab. There were no complications. Administered medications:Midazolam, for a total dose of 3mg. Fentanyl, for a total dose of 100mcg.Fluoroscopy time: 2.1min. Fluoroscopy dose: 29cGy. CORONARY ARTERIES: The coronary circulation is left dominant. Left main: Normal. LAD: Prior intervention: stent in the proximal LAD. The stented segment is patent. Left circumflex: Normal. 2nd obtuse marginal: Ostial lesion: There is a 55% stenosis. This lesionis unchanged from a prior study. Right coronary: Normal. HEMODYNAMICS: End diastolic pressure in the left ventricle is normal. Pressuremeasurements across the aortic valve show no evidence of stenosis. + + + Stage description Condition1:Condition 1 - + + + LV pressure s/ed 100/5 + + + Arterial pressure s/d (m) 98/60 (75) + + + * Electronically signed by Elias Glass Jr., MD 2014-01-23 19:47 Lexi Cade MD CARDIAC CATH ORDERAB LES * CREATININE (01/23/2014 6:20 EDT) Creatinine 0.74 0.66 - 1.25 mg/dl [facility] GFR, Calculated >60 >60 ml/min/1.7 3m2 [facility] Blood specimen (specimen) 01/23/2014 6:20 EDT 01/23/2014 6:38 EDT Sridevi Alvarez MD CHEMISTRY & BLOOD GA S ORDERABLES Performing Organization Address City/[facility] Co de Phone Number [facility] [address] [place] [address] * BUN (01/23/2014 6:20 EDT) BUN 18 10 - 26 mg/dl [facility] Blood specimen (specimen) 01/23/2014 6:20 EDT 01/23/2014 6:38 EDT Sridevi Alvarez MD CHEMISTRY & BLOOD GA S ORDERABLES Performing Organization Address City/[facility]/ZIP Co de Phone Number [facility] [address] [place] [address] * ELECTROLYTES (01/23/2014 6:20 EDT) Sodium 136 136 - 145 mEq/L [facility] Potassium 4.6 3.5 - 5.0 mEq/L [facility] Chloride 103 96 - 110 mEq/L [facility] CO2 24 24 - 32 mEq/L [facility] Blood specimen (specimen) 01/23/2014 6:20 EDT 01/23/2014 6:38 EDT Sridevi Alvarez MD CHEMISTRY & BLOOD GA S ORDERABLES Performing Organization Address [facility] Co de Phone Number [facility] [address] [place] [address] * (ABNORMAL) HEMAGRAM (01/23/2014 6:20 EDT) WBC 6.92 4.0 - 10.4 K/cmm [facility] RBC 4.19(L) 4.36 - 5.78 M/cmm [facility] Hemoglobin 13.4(L) 13.8 - 17.3 gm/dl [facility] HCT 39.0(L) 39.5 - 50.2 % [facility] MCV 93 81 - 95 fl [facility] MCH 32.0 27.6 - 33.0 pg [facility] MCHC 34.3 32.8 - 36.4 gm/dl [facility] PLT 96(L) 141 - 320 K/cmm [facility] RDW-CV 14.1 11.8 - 14.1 % [facility] Blood specimen (specimen) 01/23/2014 6:20 EDT 01/23/2014 6:38 EDT Sridevi Alvarez MD HEMATOLOGY & PF4 ORD ERABLES Performing Organization Address [facility]/ZIP Co de Phone Number [facility] [address] [place] [address] * INPATIENT ADD-ON (01/22/2014 7:25 EDT) Tests to be added PHOSPHOROUS [facility] Number for problems M5 [facility] Accession number [id number] [facility] 01/22/2014 7:25 EDT 01/22/2014 7:26 EDT Juliocesar Schultz MD HEMATOLOGY & PF4 O RDERABLES Performing Organization Address [facility] Co de Phone Number [facility] [address] [place] [address] * PHOSPHORUS (01/22/2014 6:21 EDT) Phosphorus 4.5 2.5 - 4.5 mg/dl [facility] 01/22/2014 6:21 EDT 01/22/2014 6:59 EDT Sridevi Alvarez MD CHEMISTRY & BLOOD GA S ORDERABLES Performing Organization Address [facility] Phone Number [facility] [address] [place] [address] * MAGNESIUM (01/22/2014 6:21 EDT) Magnesium 1.7 1.7 - 2.8 mg/dl [facility] Blood specimen (specimen) 01/22/2014 6:21 EDT 01/22/2014 6:59 EDT Juliocesar Schultz MD CHEMISTRY & BLOOD GAS ORDERABLES Performing Organization Address [place] de Phone Number [facility] [address] [place] [address] * CREATININE (01/22/2014 6:21 EDT) Creatinine 0.70 0.66 - 1.25 mg/dl [facility] GFR, Calculated >60 >60 ml/min/1.7 3m2 [facility] Blood specimen (specimen) 01/22/2014 6:21 EDT 01/22/2014 6:59 EDT Sridevi Alvarez MD CHEMISTRY & BLOOD GA S ORDERABLES Performing Organization Address [facility] Co de Phone Number [facility] [address] [place] [address] * BUN (01/22/2014 6:21 EDT) BUN 15 10 - 26 mg/dl [facility] Blood specimen (specimen) 01/22/2014 6:21 EDT 01/22/2014 6:59 EDT Sridevi Alvarez MD CHEMISTRY & BLOOD GA S ORDERABLES Performing Organization Address [facility] Co de Phone Number [facility] [address] [place] [address] * (ABNORMAL) ELECTROLYTES (01/22/2014 6:21 EDT) Sodium 136 136 - 145 mEq/L [facility] Potassium 4.1 3.5 - 5.0 mEq/L [facility] Chloride 104 96 - 110 mEq/L [facility] CO2 22(L) 24 - 32 mEq/L [facility] Blood specimen (specimen) 01/22/2014 6:21 EDT 01/22/2014 6:59 EDT Sridevi Alvarez MD CHEMISTRY & BLOOD GA S ORDERABLES Performing Organization Address [facility] de Phone Number [facility] [address] [place] [address] * (ABNORMAL) HEMAGRAM (01/22/2014 6:21 EDT) WBC 7.81 4.0 - 10.4 K/cmm [facility] RBC 4.31(L) 4.36 - 5.78 M/cmm [facility] Hemoglobin 14.1 13.8 - 17.3 gm/dl [facility] HCT 40.5 39.5 - 50.2 % [facility] MCV 94 81 - 95 fl [facility] MCH 32.7 27.6 - 33.0 pg [facility] MCHC 34.9 32.8 - 36.4 gm/dl [facility] PLT 78(L) 141 - 320 K/cmm [facility] RDW-CV 14.0 11.8 - 14.1 % [facility] Blood specimen (specimen) 01/22/2014 6:21 EDT 01/22/2014 6:59 EDT Sridevi Alvarez MD HEMATOLOGY & PF4 ORD ERABLES [facility] [address] [place] [address] * RIBS UNI 2 VIEWS LEFT (01/21/2014 14:36 EDT) Anatomical Region Laterality Modality Other 01/21/2014 14:3 6 EDT 01/21/2014 16:46 EDT Narrative 01/21/2014 16:46 EDT RIBS UNI 2 VIEWS LEFT ??01/21/2014 2:36 PM Signs and Symptoms/Comments: bony spur, tender Comparison: Chest radiographs obtained 3 days prior. Findings: 2 views of the left ribs were obtained. There is an irregular, partially rounded density overlying the lateral aspect of the left 10th rib seen only on the 1st film. No other rib lesions or fractures are identified. Visualized portions of the lungs are clear. A coronary artery stent is in place. The cardiomediastinal silhouette is otherwise unremarkable. Impression: Irregular density overlying the lateral left 10th rib seen only on one view which may reflect superimposed densities from the lungs or soft tissues. A benign osseous lesion is not excluded. No rib fractures identified. I have personally reviewed the images and the above interpretation and agree with the findings. Procedure Note 01/21/2014 RIBS UNI 2 VIEWS LEFT 01/21/2014 2:36 PM Signs and Symptoms/Comments: bony spur, tender Comparison: Chest radiographs obtained 3 days prior. Findings: 2 views of the left ribs were obtained. There is an irregular, partially rounded density overlying the lateral aspect of the left 10th rib seen only on the 1st film. No other rib lesions or fractures are identified. Visualized portions of the lungs are clear. A coronary artery stent is in place. The cardiomediastinal silhouette is otherwise unremarkable. Impression: Irregular density overlying the lateral left 10th rib seen only on one view which may reflect superimposed densities from the lungs or soft tissues. A benign osseous lesion is not excluded. No rib fractures identified. I have personally reviewed the images and the above interpretation and agree with the findings. Juliocesar Schultz MD IMG DIAGNOSTIC [place] GING ORDERABLES * NM CARDIAC SPECT STUDY WAVEFORM (01/21/2014 11:33 EDT) Anatomical Region Laterality Modality Other 01/21/2014 11:3 3 EDT Narrative 01/21/2014 11:38 EDT For report of this Waveform, see associated Image Study. ?[facility] ? Test Date: ?2014-01-21 Pat Name: ? JIMENEZMOO LANDRYON ? Department: ?? STRESS ? Room: ? Gender: ? M ?Shuttle Inspector: ?[id number] : ?1955 ? Requested By: GISELLE PAYNE Order Number: [id number] ?Reading : ? Interpretive Statements Procedure Note 01/21/2014 For report of this Waveform, see associated Image Study. [facility] Stress Test Date: 2014-01-21 Pat Name: JIMENEZ BARKLEY Department: STRESS Room: Gender: M Shuttle Inspector: [id number] : 1955 Requested By: GISELLE PAYNE Order Number: [id number] Gwen CRAFT: Interpretive Statements Kenyon Sullivan MD CARDIAC NM ORDERABLE S * NM CARDIAC SPECT STUDY (01/21/2014 9:53 EDT) Anatomical Region Laterality Modality Other 01/21/2014 9:53 EDT Narrative 01/21/2014 14:55 EDT *N[facility] Cardiology [facility] Stress Laboratory* [address] [place] [id number] *Interpreting Groups:* *[facility] and Department of Radiology* Myocardial Perfusion Imaging - SPECT [facility] *PATIENT PRESENTATION* Height: ? 182.9cm (72in ) Blood Pressure: Weight: ? 60.9kg (134lb ) BSA: ?1.74m^2 Referring physician: Kenyon Sullivan Ordering physician: ??Kenyon Sullivan Impressions: ?? Abnormal study after pharmacologic stress. Summary: 1. Myocardial perfusion imaging: There is a small sized, moderately intense, ?? fully reversible defect involving the mid anterior and apical anterior ?? wall(s). This suggests small ischemia in the distribution of the left ?? anterior descending coronary artery. There is a moderate sized, moderately ?? intense, partially reversible defect involving the inferior and inferolateral ?? wall(s). This suggests small myocardial infarction and small ischemia in the ?? distribution of the right coronary artery. Overall ischemia: moderate. 2. The calculated left ventricular ejection fraction after stress: 40%. The ?? calculated left ventricular ejection fraction at rest: 42%. LV global ?? systolic function is mild to moderately reduced. Diffuse left ventricular ?? regional motion abnormalities. There is moderate hypokinesis involving the ?? inferior wall(s) of the left ventricle, consistent with infarction. 3. Stress ECG conclusions: The stress ECG is negative. The specificity of this ?? test is limited by resting ECG abnormalities. CAD likelihood: ??Pre test likelihood of CAD: 100%. Post test likelihood of CAD: 100%. Indication: ?? (CAD, NSTEMI). History: ??58 y.o male recent discharge from [facility] on 01/03/14 with NSTEMI s/p PCI to LAD, admitted with left substernal chest pain and positive cardiac biomarkers. Currently he complains of 8/10 stabbing left chest pain which is tender to touch. ??Patient's presenting symptoms: atypical angina. ??PMH: ?? COPD. Risk factors: ??Hypertension. Dyslipidemia. ??Medications: ??Albuterol DELORES inhibitors. Aspirin. Beta blockers. Inhalers. Lipid-lowering therapy. Plavix. Synthroid. Imaging Technique: Protocol: ??Regadenoson. Acquisition: ?? Gated SPECT; 1 day - rest/stress. ?The patient was imaged in the supine position. Attenuation correction used. Isotope administration: - Rest. Tc[99m]-sestamibi. Dose: 10.5mCi. Injection to stress time: 00:45. - Stress. Tc[99m]-sestamibi. Dose: 33mCi. Injected at: 2 min before end of ??exercise. Labs, prior tests, procedures, and surgery: Left heart catheterization (recent, 03-Jan-2014). ?There was a stenosis in the left anterior descending coronary artery which was treated with stents. Baseline ECG: ?? Normal sinus rhythm. ??Nonspecific ST and T wave changes. Stress protocol: +--------+--+ + +------+ + Stage ?? HR BP (mmHg) ?? ST/T ? Rhythm Symptoms ? +--------+--+ + +------+ + Baseline 66 106/64 (78) Nonspecific ST SR ? Baseline 8/10 stabbing chest ? pain ? +--------+--+ + +------+ + 1 min ?? 66 ? Dyspnea ? +--------+--+ + +------+ + 2 min ?? 85 110/74 (86) ? +--------+--+ + +------+ + 3 min ?? 86 ? +--------+--+ + +------+ + 4 min ?? 82 110/70 (83) ? Subsiding, No change in baseline ? chest pain ? +--------+--+ + +------+ + 5 min ?? 78 ? +--------+--+ + +------+ + 6 min ?? 81 102/62 (75) ? Resolved SOB. No change in chest ? pain ? +--------+--+ + +------+ + 7 min ?? 79 ? +--------+--+ + +------+ + 8 min ?? 76 110/64 (17) ? +--------+--+ + +------+ + 9 min ?? 79 ? +--------+--+ + +------+ + 10 min ?? 75 110/70 (83) ? +--------+--+ + +------+ + Stress ECG: ?? The stress ECG is negative. The specificity of this test is limited by resting ECG abnormalities. Myocardial perfusion: ?? Imaging information: gated. Left ventricular size is normal. Right ventricular size is normal. There is a small sized, moderately intense, fully reversible defect involving the mid anterior and apical anterior wall(s). This suggests small ischemia in the distribution of the left anterior descending coronary artery. There is a moderate sized, moderately intense, partially reversible defect involving the inferior and inferolateral wall(s). This suggests small myocardial infarction and small ischemia in the distribution of the right coronary artery. Overall ischemia: moderate. Ventricular Function (Wall Motion): ?? The calculated left ventricular ejection fraction after stress: 40%. The calculated left ventricular ejection fraction at rest: 42%. LV global systolic function is mild to moderately reduced. ?? Diffuse left ventricular regional motion abnormalities. There is moderate hypokinesis involving the inferior wall(s) of the left ventricle, consistent with infarction. Right ventricular function is normal. Study data: ?? Study status: ??Routine. ??Consent: ??The risks, benefits, and alternatives to the procedure were explained to the patient and informed consent was obtained. ??Procedure: ??Initial setup. A baseline ECG was recorded. Intravenous access was obtained. Surface ECG leads and manual cuff blood pressure measurements were monitored. Heart sounds: Normal. Lung sounds: Normal. Regadenoson stress test. Stress testing was performed, with regadenoson by intravenous bolus, for a total dose of 0.4mgover 20.00sec, followed by a 5ml saline flush. The infusion was terminated due to per protocol. ??Study completion: ??All catheters inserted during the procedure were removed. The patient tolerated the procedure well and was discharged from the lab. Discharge: ??The patient left the laboratory in stable condition. ? Birthdate: Patient birthdate: 1955. ??Sex: ??Gender: male. ??Study date: ??Study date: 21-Jan-2014. Signature Documentation: - The imaging portion of this study was interpreted by Nuclear Adult Parole Officer ??Germain Ayala. - The imaging portion of this study was interpreted by Nuclear Radiologist ??Aayush Carpenter. - The Stress ECG portion of this study was interpreted by Dr. Groves ?Demian. Electronically signed by eGrmain Ayala MD 01/21/2014 14:55 Procedure Note 01/21/2014 *[facility]* [address] [place] [id number] *Interpreting Groups:* *[facility] of Radiology* Myocardial Perfusion Imaging - SPECT Regadenoson *PATIENT PRESENTATION* Height: 182.9cm (72in ) Blood Pressure: Weight: 60.9kg (134lb ) BSA: 1.74m^2 Referring physician: Kenyon Sullivan Ordering physician: Kenyon Sullivan Impressions: Abnormal study after pharmacologic stress. Summary: 1. Myocardial perfusion imaging: There is a small sized, moderatelyintense, fully reversible defect involving the mid anterior and apical anterior wall(s). This suggests small ischemia in the distribution of the left anterior descending coronary artery. There is a moderate sized,moderately intense, partially reversible defect involving the inferior andinferolateral wall(s). This suggests small myocardial infarction and small ischemiain the distribution of the right coronary artery. Overall ischemia: moderate. 2. The calculated left ventricular ejection fraction after stress: 40%.The calculated left ventricular ejection fraction at rest: 42%. LV global systolic function is mild to moderately reduced. Diffuse leftventricular regional motion abnormalities. There is moderate hypokinesis involvingthe inferior wall(s) of the left ventricle, consistent with infarction. 3. Stress ECG conclusions: The stress ECG is negative. The specificity ofthis test is limited by resting ECG abnormalities. CAD likelihood: Pre test likelihood of CAD: 100%. Post test likelihood ofCAD: 100%. Indication: (CAD, NSTEMI). History: 58 y.o male recent discharge from [facility] on 01/03/14 with NSTEMIs/p PCI to LAD, admitted with left substernal chest pain and positive cardiac biomarkers. Currently he complains of 8/10 stabbing left chest pain whichis tender to touch. Patient's presenting symptoms: atypical angina. PMH:COPD. Risk factors: Hypertension. Dyslipidemia. Medications: Albuterol DELORES inhibitors. Aspirin. Beta blockers. Inhalers. Lipid-lowering therapy.Plavix. Synthroid. Imaging Technique: Protocol: Regadenoson. Acquisition: Gated SPECT; 1 day - rest/stress. The patient was imagedin the supine position. Attenuation correction used. Isotope administration: - Rest. Tc[99m]-sestamibi. Dose: 10.5mCi. Injection to stress time: 00:45. - Stress. Tc[99m]-sestamibi. Dose: 33mCi. Injected at: 2 min before end of exercise. Labs, prior tests, procedures, and surgery: Left heart catheterization (recent, 03-Jan-2014). There was a stenosisin the left anterior descending coronary artery which was treated with stents. Baseline ECG: Normal sinus rhythm. Nonspecific ST and T wave changes. Stress protocol: +--------+--+ + +------+ + Stage HR BP (mmHg) ST/T Rhythm Symptoms +--------+--+ + +------+ + Baseline 66 106/64 (78) Nonspecific ST SR Baseline 8/10 stabbingchest pain +--------+--+ + +------+ + 1 min 66 Dyspnea +--------+--+ + +------+ + 2 min 85 110/74 (86) +--------+--+ + +------+ + 3 min 86 +--------+--+ + +------+ + 4 min 82 110/70 (83) Subsiding, No change inbaseline chest pain +--------+--+ + +------+ + 5 min 78 +--------+--+ + +------+ + 6 min 81 102/62 (75) Resolved SOB. No change inchest pain +--------+--+ + +------+ + 7 min 79 +--------+--+ + +------+ + 8 min 76 110/64 (79) +--------+--+ + +------+ + 9 min 79 +--------+--+ + +------+ + 10 min 75 110/70 (83) +--------+--+ + +------+ + Stress ECG: The stress ECG is negative. The specificity of this test is limited by resting ECG abnormalities. Myocardial perfusion: Imaging information: gated. Left ventricular sizeis normal. Right ventricular size is normal. There is a small sized,moderately intense, fully reversible defect involving the mid anterior and apicalanterior wall(s). This suggests small ischemia in the distribution of the leftanterior descending coronary artery. There is a moderate sized, moderately intense, partially reversible defect involving the inferior and inferolateralwall(s). This suggests small myocardial infarction and small ischemia in thedistribution of the right coronary artery. Overall ischemia: moderate. Ventricular Function (Wall Motion): The calculated left ventricularejection fraction after stress: 40%. The calculated left ventricular ejectionfraction at rest: 42%. LV global systolic function is mild to moderately reduced.Diffuse left ventricular regional motion abnormalities. There is moderatehypokinesis involving the inferior wall(s) of the left ventricle, consistent with infarction. Right ventricular function is normal. Study data: Study status: Routine. Consent: The risks, benefits, and alternatives to the procedure were explained to the patient and informedconsent was obtained. Procedure: Initial setup. A baseline ECG was recorded. Intravenous access was obtained. Surface ECG leads and manual cuff blood pressure measurements were monitored. Heart sounds: Normal. Lung sounds:Normal. Regadenoson stress test. Stress testing was performed, with regadenosonby intravenous bolus, for a total dose of 0.4mgover 20.00sec, followed by a5ml saline flush. The infusion was terminated due to per protocol. Study completion: All catheters inserted during the procedure were removed. The patient tolerated the procedure well and was discharged from the lab. Discharge: The patient left the laboratory in stable condition.Birthdate: Patient birthdate: 1955. Sex: Gender: male. Study date: Studydate: 21-Jan-2014. Signature Documentation: - The imaging portion of this study was interpreted by NuclearCardiologist Dr. Gremain Ayala. - The imaging portion of this study was interpreted by Nuclear RadiologistDr. Aayush Carpenter. - The Stress ECG portion of this study was interpreted by Dr. Germain Ayala. Electronically signed by Germain Ayala MD 01/21/2014 14:55 Kenyon Sullivan MD CARDIAC NM ORDERABLE S * INPATIENT ADD-ON (01/21/2014 8:05 EDT) Tests to be added URIC ACID [facility] Number for problems [id number] [facility] Accession number [id number] [facility] 01/21/2014 8:05 EDT 01/21/2014 8:06 EDT Juliocesar Schultz MD HEMATOLOGY & PF4 O RDERABLES Performing Organization Address [facility] Co de Phone Number [facility] [address] [place] [address] * CK MB WITH TOTAL CK (01/21/2014 7:28 EDT) CK 101 0 - 250 U/L [facility] MB 0.37 <4.21 ng/ml [facility] Blood specimen (specimen) 01/21/2014 7:28 EDT 01/21/2014 7:34 EDT Kenyon Sullivan MD CHEMISTRY & BLOOD GA S ORDERABLES Performing Organization Address [facility] Co de Phone Number [facility] [address] [place] [address] * INPATIENT ADD-ON (01/21/2014 6:45 EDT) Tests to be added MAGNESIUM [facility] Number for problems [id number] [facility] Accession number [id number] [facility] 01/21/2014 6:45 EDT 01/21/2014 6:47 EDT Lexi Cade MD HEMATOLOGY & PF4 ORD ERABLES Performing Organization Address [facility] Co de Phone Number [facility] [address] [place] [address] * URIC ACID (01/21/2014 6:01 EDT) Uric Acid 4.1 3.9 - 9.0 mg/dl [facility] 01/21/2014 6:01 EDT 01/21/2014 6:16 EDT Sridevi Alvarez MD CHEMISTRY & BLOOD GA S ORDERABLES Performing Organization Address [facility] Co de Phone Number [facility] [address] [place] [address] * (ABNORMAL) MAGNESIUM (01/21/2014 6:01 EDT) Magnesium 1.6(L) 1.7 - 2.8 mg/dl [facility] 01/21/2014 6:01 EDT 01/21/2014 6:16 EDT Sridevi Alvarez MD CHEMISTRY & BLOOD GA S ORDERABLES Performing Organization Address [facility] de Phone Number [facility] [address] [place] [address] * CREATININE (01/21/2014 6:01 EDT) Creatinine 0.70 0.66 - 1.25 mg/dl [facility] GFR, Calculated >60 >60 ml/min/1.7 3m2 [facility] Blood specimen (specimen) 01/21/2014 6:01 EDT 01/21/2014 6:16 EDT Sridevi Alvarez MD CHEMISTRY & BLOOD GA S ORDERABLES Performing Organization Address [facility] Co de Phone Number [facility] [address] [place] [address] * BUN (01/21/2014 6:01 EDT) BUN 15 10 - 26 mg/dl [facility] Blood specimen (specimen) 01/21/2014 6:01 EDT 01/21/2014 6:16 EDT Sridevi Alvarez MD CHEMISTRY & BLOOD GA S ORDERABLES Performing Organization Address [facility] Co de Phone Number [facility] [address] [place] [address] * (ABNORMAL) ELECTROLYTES (01/21/2014 6:01 EDT) Sodium 135(L) 136 - 145 mEq/L [facility] Potassium 4.0 3.5 - 5.0 mEq/L [facility] Chloride 103 96 - 110 mEq/L [facility] CO2 23(L) 24 - 32 mEq/L [facility] Blood specimen (specimen) 01/21/2014 6:01 EDT 01/21/2014 6:16 EDT Sridevi Alvarez MD CHEMISTRY & BLOOD GA S ORDERABLES Performing Organization Address [facility] de Phone Number [facility] [address] [place] [address] * (ABNORMAL) HEMAGRAM (01/21/2014 6:01 EDT) WBC 9.39 4.0 - 10.4 K/cmm [facility] RBC 4.29(L) 4.36 - 5.78 M/cmm [facility] Hemoglobin 13.9 13.8 - 17.3 gm/dl [facility] HCT 40.2 39.5 - 50.2 % [facility] MCV 94 81 - 95 fl [facility] MCH 32.4 27.6 - 33.0 pg [facility] MCHC 34.5 32.8 - 36.4 gm/dl [facility] PLT 67(L) 141 - 320 K/cmm [facility] RDW-CV 14.1 11.8 - 14.1 % [facility] Blood specimen (specimen) 01/21/2014 6:01 EDT 01/21/2014 6:16 EDT Sridevi Alvarez MD HEMATOLOGY & PF4 ORD ERABLES Performing Organization Address [facility] Co de Phone Number [facility] [address] [place] [address] * INPATIENT ADD-ON (01/21/2014 2:10 EDT) Tests to be added MAGNESIUM, PHOSPHOROU S [facility] Number for problems Not Given [facility] Accession number [id number] [facility] 01/21/2014 2:10 EDT 01/21/2014 2:42 EDT Ghulam Ray MD HEMATOLOGY & PF4 OR DERABLES Performing Organization Address [facility] Co de Phone Number [facility] [address] [place] [address] * INPATIENT ADD-ON (01/20/2014 9:10 EDT) Tests to be added PERIPHERAL SMEAR REVIEW FOR THROMBOCYTOPENIA [facility] Number for problems [id number] [facility] Accession number [id number] [facility] 01/20/2014 9:10 EDT 01/20/2014 9:11 EDT Juliocesar Schultz MD HEMATOLOGY & PF4 O RDERABLES Performing Organization Address [facility] Co de Phone Number [facility] [address] [place] [address] * PHOSPHORUS (01/20/2014 8:02 EDT) Phosphorus 4.5 2.5 - 4.5 mg/dl [facility] 01/20/2014 8:02 EDT 01/20/2014 8:14 EDT Sridevi Alvarez MD CHEMISTRY & BLOOD GA S ORDERABLES Performing Organization Address [facility] Co de Phone Number [facility] [address] [place] [address] * (ABNORMAL) MAGNESIUM (01/20/2014 8:02 EDT) Magnesium 1.6(L) 1.7 - 2.8 mg/dl [facility] 01/20/2014 8:02 EDT 01/20/2014 8:14 EDT Sridevi Alvarez MD CHEMISTRY & BLOOD GA S ORDERABLES Performing Organization Address [place] de Phone Number [facility] [address] [place] [address] * PROSPER DIFF COMMENT (01/20/2014 8:02 EDT) Differential Comment Reviewed by Dr. [facility] Comment: (Note) Review of the peripheral smear confirms the low platelet count. There is no platelet clumping. No schistocytes. The finding of thrombocytopenia is most likely related to excessive EtOH intake. Corrected on 01/20 AT 1950: Previously reported as The finding of thrombocytopenia is most likely related to accessive ?? ETOH intake. Reviewed by Dr. German 01/20/2014 8:02 EDT 01/20/2014 8:14 EDT Sridevi Alvarez MD HEMATOLOGY & PF4 ORD ERABLES Performing Organization Address [place] de Phone Number [facility] [address] [place] [address] * SLIDE REQUEST (01/20/2014 8:02 EDT) Note A smear is filed in the Hematology lab [facility] 01/20/2014 8:02 EDT 01/20/2014 8:14 EDT Sridevi Alvarez MD HEMATOLOGY & PF4 ORD ERABLES Performing Organization Address [facility] Co de Phone Number [facility] [address] [place] [address] * (ABNORMAL) PTT (01/20/2014 8:02 EDT) PTT 59(H) 26 - 37 secs [facility] Comment:Therapeutic Heparin range: 65-100 seconds Blood specimen (specimen) 01/20/2014 8:02 EDT 01/20/2014 8:14 EDT Sridevi Alvarez MD HEMATOLOGY & PF4 ORD ERABLES Performing Organization Address [facility] de Phone Number [facility] [address] [place] [address] * (ABNORMAL) CREATININE (01/20/2014 8:02 EDT) Creatinine 0.63(L) 0.66 - 1.25 mg/dl [facility] GFR, Calculated >60 >60 ml/min/1.7 3m2 [facility] Blood specimen (specimen) 01/20/2014 8:02 EDT 01/20/2014 8:14 EDT Sridevi Alvarez MD CHEMISTRY & BLOOD GA S ORDERABLES Performing Organization Address [place] de Phone Number [facility] [address] [place] [address] * BUN (01/20/2014 8:02 EDT) BUN 10 10 - 26 mg/dl [facility] Blood specimen (specimen) 01/20/2014 8:02 EDT 01/20/2014 8:14 EDT Sridevi Alvarez MD CHEMISTRY & BLOOD GA S ORDERABLES Performing Organization Address [place] de Phone Number [facility] [address] [place] [address] * ELECTROLYTES (01/20/2014 8:02 EDT) Sodium 138 136 - 145 mEq/L [facility] Potassium 3.8 3.5 - 5.0 mEq/L [facility] Chloride 104 96 - 110 mEq/L [facility] CO2 25 24 - 32 mEq/L [facility] Blood specimen (specimen) 01/20/2014 8:02 EDT 01/20/2014 8:14 EDT Sridevi Alvarez MD CHEMISTRY & BLOOD GA S ORDERABLES Performing Organization Address [facility]/ZIP Co de Phone Number [facility] [address] [place] [address] * (ABNORMAL) HEMAGRAM (01/20/2014 8:02 EDT) WBC 7.67 4.0 - 10.4 K/cmm [facility] RBC 4.33(L) 4.36 - 5.78 M/cmm [facility] Hemoglobin 14.1 13.8 - 17.3 gm/dl [facility] HCT 40.8 39.5 - 50.2 % [facility] MCV 94 81 - 95 fl [facility] MCH 32.5 27.6 - 33.0 pg [facility] MCHC 34.5 32.8 - 36.4 gm/dl [facility] PLT 69(L) 141 - 320 K/cmm [facility] RDW-CV 14.0 11.8 - 14.1 % [facility] Blood specimen (specimen) 01/20/2014 8:02 EDT 01/20/2014 8:14 EDT Sridevi Alvarez MD HEMATOLOGY & PF4 ORD ERABLES Performing Organization Address [facility] Co de Phone Number [facility] [address] [place] [address] * ECG REPORT - SCANNED (01/19/2014 14:15 EDT) 01/19/2014 14:1 5 EDT Scan 2 [employer] PROCEDURE/MINOR AMITA GICAL ORDERABLES * (ABNORMAL) CK MB WITH TOTAL CK (01/19/2014 13:52 EDT) CK 444(H) 0 - 250 U/L [facility] MB 1.89 <4.21 ng/ml [facility] Blood specimen (specimen) 01/19/2014 13:52 EDT 01/19/2014 14:23 EDT Kenyon Sullivan MD CHEMISTRY & BLOOD GA S ORDERABLES Performing Organization Address [facility] Co de Phone Number [facility] [address] [place] [address] * (ABNORMAL) PTT (01/19/2014 5:40 EDT) PTT 65(H) 26 - 37 secs [facility] Comment:Therapeutic Heparin range: 65-100 seconds Blood specimen (specimen) 01/19/2014 5:40 EDT 01/19/2014 5:55 EDT Sridevi Alvarez MD HEMATOLOGY & PF4 ORD ERABLES Performing Organization Address [facility] de Phone Number [facility] [address] [place] [address] * (ABNORMAL) CREATININE (01/19/2014 5:40 EDT) Creatinine 0.60(L) 0.66 - 1.25 mg/dl [facility] GFR, Calculated >60 >60 ml/min/1.7 3m2 [facility] Blood specimen (specimen) 01/19/2014 5:40 EDT 01/19/2014 5:55 EDT Sridevi Alvarez MD CHEMISTRY & BLOOD GA S ORDERABLES Performing Organization Address [facility] de Phone Number [facility] [address] [place] [address] * BUN (01/19/2014 5:40 EDT) BUN 10 10 - 26 mg/dl [facility] Blood specimen (specimen) 01/19/2014 5:40 EDT 01/19/2014 5:55 EDT Sridevi Alvarez MD CHEMISTRY & BLOOD GA S ORDERABLES Performing Organization Address [facility] Co de Phone Number [facility] [address] [place] [address] * ELECTROLYTES (01/19/2014 5:40 EDT) Sodium 138 136 - 145 mEq/L [facility] Potassium 3.6 3.5 - 5.0 mEq/L [facility] Chloride 104 96 - 110 mEq/L [facility] CO2 25 24 - 32 mEq/L [facility] Blood specimen (specimen) 01/19/2014 5:40 EDT 01/19/2014 5:55 EDT Sridevi Alvarez MD CHEMISTRY & BLOOD GA S ORDERABLES Performing Organization Address [facility] Co de Phone Number [facility] [address] [place] [address] * (ABNORMAL) HEMAGRAM (01/19/2014 5:40 EDT) WBC 5.89 4.0 - 10.4 K/cmm [facility] RBC 4.40 4.36 - 5.78 M/cmm [facility] Hemoglobin 14.0 13.8 - 17.3 gm/dl [facility] HCT 40.9 39.5 - 50.2 % [facility] MCV 93 81 - 95 fl [facility] MCH 31.8 27.6 - 33.0 pg [facility] MCHC 34.2 32.8 - 36.4 gm/dl [facility] PLT 83(L) 141 - 320 K/cmm [facility] RDW-CV 14.0 11.8 - 14.1 % [facility] Blood specimen (specimen) 01/19/2014 5:40 EDT 01/19/2014 5:55 EDT Sridevi Alvarez MD HEMATOLOGY & PF4 ORD ERABLES Performing Organization Address [facility] Co de Phone Number [facility] [address] [place] [address] * LIPID PROFILE (INCLUDES CHOLESTEROL, TRIGLYCERIDES, HDL, LDL) (01/19/2014 5:40 EDT) Cholesterol 162 mg/dl [facility] Comment: Desirable:<200 Borderline High:200-239 High:>mp=205 Triglycerides 89 mg/dl [facility] Comment: Normal:<150 Borderline High:150-199 High:200-499 Very High:>xz=768 HDL 102 mg/dl [facility] Comment: Low:<40 Normal:40-60 Desirable: >60 LDL, Calculated 42 mg/dl [facility] Comment: Optimal:<100 Near Optimal:100-129 Borderline High:130-159 High:160-189 Very High:>hi=582 Chol/HDL Ratio 1.6 [facility] Fasting? Unknown [facility] Non HDL Cholesterol 60 mg/dl [facility] Comment: Desirable:<130 Borderline:130-159 High: 160-189 Very High: >en=743 Blood specimen (specimen) 01/19/2014 5:40 EDT 01/19/2014 5:55 EDT Sridevi Alvarez MD CHEMISTRY & BLOOD GA S ORDERABLES Performing Organization Address [facility] de Phone Number [facility] [address] [place] [address] * (ABNORMAL) PTT (01/18/2014 16:43 EDT) PTT 98(H) 26 - 37 secs [facility] Comment:Therapeutic Heparin range: 65-100 seconds Blood specimen (specimen) 01/18/2014 16:43 EDT 01/18/2014 16:53 EDT Golden Rutherford MD HEMATOLOGY & PF4 OR DERABLES Performing Organization Address [facility] de Phone Number [facility] [address] [place] [address] * (ABNORMAL) TROPONIN I (01/18/2014 13:58 EDT) Troponin I (ng/mL) 0.260(H) <0.034 ng/ml [facility] 01/18/2014 13:5 8 EDT 01/18/2014 14:35 EDT Sridevi Alvarez MD CHEMISTRY & BLOOD GA S ORDERABLES Performing Organization Address [facility] de Phone Number [facility] [address] [place] [address] * (ABNORMAL) CK MB WITH TOTAL CK (01/18/2014 13:58 EDT) CK 612(H) 0 - 250 U/L [facility] MB 5.12(H) <4.21 ng/ml [facility] Blood specimen (specimen) 01/18/2014 13:58 EDT 01/18/2014 14:35 EDT Sridevi Alvarez MD CHEMISTRY & BLOOD GA S ORDERABLES Performing Organization Address [facility] Co de Phone Number [facility] [address] [place] [address] * INPATIENT ADD-ON (01/18/2014 10:37 EDT) Tests to be added TROPONIN [facility] Number for problems [id number] [facility] Accession number [id number] [facility] 01/18/2014 10:3 7 EDT 01/18/2014 15:38 EDT Gerhard Willett MD HEMATOLOGY & PF4 ORD ERABLES Performing Organization Address [place] de Phone Number [facility] [address] [place] [address] * (ABNORMAL) PTT (01/18/2014 8:33 EDT) PTT 42(H) 26 - 37 secs [facility] Comment:Therapeutic Heparin range: 65-100 seconds Blood specimen (specimen) 01/18/2014 8:33 EDT 01/18/2014 8:50 EDT Golden Rutherford MD HEMATOLOGY & PF4 OR DERABLES Performing Organization Address [place] de Phone Number [facility] [address] [place] [address] * CT HEAD WO CONTRAST (01/18/2014 7:17 EDT) Anatomical Region Laterality Modality Other 01/18/2014 7:17 EDT 01/18/2014 8:29 EDT Narrative 01/18/2014 8:[address] HEAD WO CONTRAST ??01/18/2014 7:17 AM Signs and Symptoms/Comments: ??Worsening mental status, alcoholism on anticoagulation, assess ofor bleed Prior exam: None Technique: Axial plane from base to vertex without contrast. Coronal reformats. Soft tissue and bone windows. Findings: Scalp soft tissues are unremarkable. There is a fracture of the posterolateral wall of the right maxillary sinus which is likely old. The right maxillary sinus is partially opacified with mucosal thickening and fluid/mucus. There is no air within the retroantral fat. Minimal mucosal thickening in the inferior frontal sinuses. Marked dextro deviation of the anterior nasal septum. Teresa bullosa of the left middle nasal turbinates. Mastoid air cells and tympanic cavities are well-aerated bilaterally. Generalized cortical atrophy and ventriculomegaly is seen which is mildly advanced for age. There is an area of encephalomalacia presumably posttraumatic in nature in the anterior inferior right frontal lobe involving orbital frontal gyri. No acute hyperdense intracranial hemorrhage or other acute focal intracranial pathology. No evidence of intracranial mass or acute infarction. Hanson-white differentiation is preserved. No localized areas of positive mass effect. No subdural or epidural fluid collection. Basal cisterns are patent. Intracranial atherosclerotic vascular calcifications are seen. No posterior fossa abnormality. Craniovertebral junction is within normal limits. Orbits are unremarkable. Impression: 1. Age advanced cortical atrophy and ventriculomegaly. 2. 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 3. No evidence of acute hyperdense intracranial hemorrhage, mass or acute infarction. 4. Presumed old fracture of the posterolateral wall of the right maxillary sinus with partial opacification of the right maxillary sinus as noted above. Marked dextro deviation of the anterior nasal septum. 5. Preliminary report was provided by Dr. Kraft at approximately 7:48 AM on 01/18/14. Procedure Note 01/18/2014 CT HEAD WO CONTRAST 01/18/2014 7:17 AM Signs and Symptoms/Comments: Worsening mental status, alcoholism on anticoagulation, assess ofor bleed Prior exam: None Technique: Axial plane from base to vertex without contrast. Coronal reformats. Soft tissue and bone windows. Findings: Scalp soft tissues are unremarkable. There is a fracture of the posterolateral wall of the right maxillary sinus which is likely old. The right maxillary sinus is partially opacified with mucosal thickening and fluid/mucus. There is no air within the retroantral fat. Minimal mucosal thickening in the inferior frontal sinuses. Marked dextro deviation of the anterior nasal septum. Teresa bullosa of the left middle nasal turbinates. Mastoid air cells and tympanic cavities are well-aerated bilaterally. Generalized cortical atrophy and ventriculomegaly is seen which is mildly advanced for age. There is an area of encephalomalacia presumably posttraumatic in nature in the anterior inferior right frontal lobe involving orbital frontal gyri. No acute hyperdense intracranial hemorrhage or other acute focal intracranial pathology. No evidence of intracranial mass or acute infarction. Hanson-white differentiation is preserved. No localized areas of positive mass effect. No subdural or epidural fluid collection. Basal cisterns are patent. Intracranial atherosclerotic vascular calcifications are seen. No posterior fossa abnormality. Craniovertebral junction is within normal limits. Orbits are unremarkable. Impression: 1. Age advanced cortical atrophy and ventriculomegaly. 2. 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 3. No evidence of acute hyperdense intracranial hemorrhage, mass or acute infarction. 4. Presumed old fracture of the posterolateral wall of the right maxillary sinus with partial opacification of the right maxillary sinus as noted above. Marked dextro deviation of the anterior nasal septum. 5. Preliminary report was provided by Dr. Kraft at approximately 7:48 AM on 01/18/14. Sridevi Alvarez MD IMG CT ORDERABLES * BLOOD GAS, G3 ISTAT (01/18/2014 6:53 EDT) pH, i-STAT 7.40 7.35 - 7.45 [facility] pCO2, i-STAT 38 35 - 45 mmHg [facility] pO2, i-STAT 81 80 - 105 mmHg [facility] TCO2, i-STAT 25 mEq/L [facility] O2 Saturation 96 % [facility] Base Deficit, i-STAT 1 [facility] FIO2 21 [facility] Sample Type ARTERIAL JAMES KAMI [place]ter ID [id number] [facility] Comment: Test Performed by Respiratory For non-arterial reference ranges, please see ISTAT procedure. 01/18/2014 6:53 EDT 01/18/2014 6:59 EDT Golden Rutherford MD CHEMISTRY & BLOOD G ORDERABLES Performing Organization Address [facility] Co de Phone Number [facility] [address] [place] [address] * (ABNORMAL) ETHANOL, BLOOD (01/18/2014 6:43 EDT) Ethanol 144(H) <10 mg/dl [facility] Blood specimen (specimen) 01/18/2014 6:43 EDT 01/18/2014 6:48 EDT Sridevi Alvarez MD CHEMISTRY & BLOOD GA S ORDERABLES Performing Organization Address [facility] Phone Number [facility] [address] [place] [address] * (ABNORMAL) PTT (01/18/2014 6:43 EDT) PTT 51(H) 26 - 37 secs [facility] Comment:Therapeutic Heparin range: 65-100 seconds Blood specimen (specimen) 01/18/2014 6:43 EDT 01/18/2014 6:48 EDT Sridevi Alvarez MD HEMATOLOGY & PF4 ORD ERABLES Performing Organization Address [facility] de Phone Number [facility] [address] [place] [address] * CREATININE (01/18/2014 6:43 EDT) Creatinine 0.89 0.66 - 1.25 mg/dl [facility] GFR, Calculated >60 >60 ml/min/1.7 3m2 [facility] Blood specimen (specimen) 01/18/2014 6:43 EDT 01/18/2014 6:48 EDT Sridevi Alvarez MD CHEMISTRY & BLOOD GA S ORDERABLES Performing Organization Address [facility] Co de Phone Number [facility] [address] [place] [address] * (ABNORMAL) BUN (01/18/2014 6:43 EDT) BUN 6(L) 10 - 26 mg/dl [facility] Blood specimen (specimen) 01/18/2014 6:43 EDT 01/18/2014 6:48 EDT Sridevi Alvarez MD CHEMISTRY & BLOOD GA S ORDERABLES Performing Organization Address [facility] de Phone Number [facility] [address] [place] [address] * (ABNORMAL) ELECTROLYTES (01/18/2014 6:43 EDT) Sodium 139 136 - 145 mEq/L [facility] Potassium 4.0 3.5 - 5.0 mEq/L [facility] Chloride 104 96 - 110 mEq/L [facility] CO2 23(L) 24 - 32 mEq/L [facility] Blood specimen (specimen) 01/18/2014 6:43 EDT 01/18/2014 6:48 EDT Sridevi Alvarez MD CHEMISTRY & BLOOD GA S ORDERABLES Performing Organization Address [facility] Phone Number [facility] [address] [place] [address] * PROTIME (01/18/2014 6:43 EDT) Pro Time 9.7 9.5 - 12.3 secs [facility] Comment: New prothrombin t radha range effective 01/12/14 I.N.R. 0.9 0.9 - 1.1 Ratio [facility] Comment: Moderate Intensity Coumadin INR = 2.0-3.0 Adjustments in anticoagulant therapy dose should be based upon the INR and NOT the Pro Time. Blood specimen (specimen) 01/18/2014 6:43 EDT 01/18/2014 6:48 EDT Sridevi Alvarez MD HEMATOLOGY & PF4 ORD ERABLES Performing Organization Address [facility]/ZIP Co de Phone Number [facility] [address] [place] [address] * (ABNORMAL) HEMAGRAM (01/18/2014 6:43 EDT) Pathologist [facility] WBC 5.19 4.0 - 10.4 K/cmm [facility] RBC 4.21(L) 4.36 - 5.78 M/cmm [facility] Hemoglobin 13.5(L) 13.8 - 17.3 gm/dl [facility] HCT 39.4(L) 39.5 - 50.2 % [facility] MCV 94 81 - 95 fl [facility] MCH 32.0 27.6 - 33.0 pg [facility] MCHC 34.2 32.8 - 36.4 gm/dl [facility] PLT 105(L) 141 - 320 K/cmm [facility] RDW-CV 14.1 11.8 - 14.1 % [facility] Blood specimen (specimen) 01/18/2014 6:43 EDT 01/18/2014 6:48 EDT Sridevi Alvarez MD HEMATOLOGY & PF4 ORD ERABLES Performing Organization Address [facility] Co de Phone Number [facility] [address] [place] [address] * (ABNORMAL) TROPONIN I (01/18/2014 6:43 EDT) Pathologist [facility] Troponin I (ng/mL) 0.415(H) <0.034 ng/ml [facility] Blood specimen (specimen) 01/18/2014 6:43 EDT 01/18/2014 6:48 EDT Sridevi Alvarez MD CHEMISTRY & BLOOD GA S ORDERABLES Performing Organization Address [facility] Co de Phone Number [facility] [address] [place] [address] * CK MB WITH TOTAL CK (01/18/2014 6:43 EDT) Pathologist [facility] CK 127 0 - 250 U/L [facility] MB 2.42 <4.21 ng/ml [facility] Blood specimen (specimen) 01/18/2014 6:43 EDT 01/18/2014 6:48 EDT Sridevi Alvarez MD CHEMISTRY & BLOOD GA S ORDERABLES Performing Organization Address [place] de Phone Number [facility] [address] [place] [address] * INPATIENT ADD-ON (01/18/2014 3:35 EDT) Tests to be added BLOOD ETHANOL LEVEL [facility] Number for problems Not Given [facility] Accession number [id number] [facility] 01/18/2014 3:35 EDT 01/18/2014 3:39 EDT Sridevi Alvarez MD HEMATOLOGY & PF4 ORD ERABLES Performing Organization Address [place] de Phone Number [facility] [address] [place] [address] * INPATIENT ADD-ON (01/18/2014 2:58 EDT) Tests to be added PROTIME [facility] Number for problems Not Given [facility] Accession number [id number] [facility] 01/18/2014 2:58 EDT 01/18/2014 2:58 EDT Golden Rutherford MD HEMATOLOGY & PF4 OR DERABLES Performing Organization Address [facility] de Phone Number [facility] [address] [place] [address] * INPATIENT ADD-ON (01/18/2014 2:38 EDT) Tests to be added HEMAGRAM [facility] Number for problems Not Given [facility] Accession number [id number] [facility] 01/18/2014 2:38 EDT 01/18/2014 2:39 EDT Sridevi Alvarez MD HEMATOLOGY & PF4 ORD ERABLES Performing Organization Address [facility] Co de Phone Number [facility] [address] [place] [address] * (ABNORMAL) ETHANOL, BLOOD (01/18/2014 1:02 EDT) Ethanol 261(H) <10 mg/dl [facility] 01/18/2014 1:02 EDT 01/18/2014 1:12 EDT Sridevi Alvarez MD CHEMISTRY & BLOOD GA S ORDERABLES Performing Organization Address [facility] de Phone Number [facility] [address] [place] [address] * PROTIME (01/18/2014 1:02 EDT) Pathologist [facility] Pro Time 10.3 9.5 - 12.3 secs [facility] Comment: New prothrombin t radha range effective 01/12/14 I.N.R. 1.0 0.9 - 1.1 Ratio [facility] Comment: Moderate Intensity Coumadin INR = 2.0-3.0 Adjustments in anticoagulant therapy dose should be based upon the INR and NOT the Pro Time. 01/18/2014 1:02 EDT 01/18/2014 1:12 EDT Sridevi Alvarez MD HEMATOLOGY & PF4 ORD ERABLES Performing Organization Address [facility] de Phone Number [facility] [address] [place] [address] * (ABNORMAL) HEMAGRAM (01/18/2014 1:02 EDT) WBC 5.61 4.0 - 10.4 K/cmm [facility] RBC 4.39 4.36 - 5.78 M/cmm [facility] Hemoglobin 13.9 13.8 - 17.3 gm/dl [facility] HCT 40.9 39.5 - 50.2 % [facility] MCV 93 81 - 95 fl [facility] MCH 31.8 27.6 - 33.0 pg [facility] MCHC 34.1 32.8 - 36.4 gm/dl [facility] PLT 114(L) 141 - 320 K/cmm [facility] RDW-CV 14.0 11.8 - 14.1 % [facility] 01/18/2014 1:02 EDT 01/18/2014 1:12 EDT Sridevi Alvarez MD HEMATOLOGY & PF4 ORD ERABLES Performing Organization Address [facility] Co de Phone Number [facility] [address] [place] [address] * (ABNORMAL) PTT (01/18/2014 1:02 EDT) Pathologist [facility] PTT 141(HH) 26 - 37 secs [facility] Comment:Therapeutic Heparin range: 65-100 seconds Blood specimen (specimen) 01/18/2014 1:02 EDT 01/18/2014 1:12 EDT Golden Rutherford MD HEMATOLOGY & PF4 OR DERABLES Performing Organization Address [place] de Phone Number [facility] [address] [place] [address] * MAGNESIUM (01/18/2014 1:02 EDT) Pathologist [facility] Magnesium 2.1 1.7 - 2.8 mg/dl [facility] Blood specimen (specimen) 01/18/2014 1:02 EDT 01/18/2014 1:12 EDT Sridevi Alvarez MD CHEMISTRY & BLOOD GA S ORDERABLES Performing Organization Address [place] de Phone Number [facility] [address] [place] [address] * (ABNORMAL) TROPONIN I (01/18/2014 1:02 EDT) Pathologist [facility] Troponin I (ng/mL) 0.383(H) <0.034 ng/ml [facility] Blood specimen (specimen) 01/18/2014 1:02 EDT 01/18/2014 1:12 EDT Sridevi Alvarez MD CHEMISTRY & BLOOD GA S ORDERABLES Performing Organization Address City/[facility]/ZIP Co de Phone Number [facility] [address] [place] [address] * CK MB WITH TOTAL CK (01/18/2014 1:02 EDT) CK 113 0 - 250 U/L [facility] MB 2.62 <4.21 ng/ml [facility] Blood specimen (specimen) 01/18/2014 1:02 EDT 01/18/2014 1:12 EDT Sridevi Alvarez MD CHEMISTRY & BLOOD GA S ORDERABLES Performing Organization Address [facility] de Phone Number [facility] [address] [place] [address] * HEMOGLOBIN A1C (01/18/2014 1:02 EDT) Hemoglobin A1C 6.0 % [facility]ISES [facility] Comment: Reference Range: <5.7% Normal 5.7-6.4% Increased risk for diabetes =>6.5% Diagnostic for diabetes (if confirmed) The A1c goal for non adults in general is <7%. The A1c goal for selected patients may be significantly lower than 7% if this can be achieved without significant hypoglycemia or other adverse effects of treatment. Est Avg Glucose 126 mg/dl HERON [facility] Comment: eAG represents the A1c result expressed as average glucose in mg/dl. Blood specimen (specimen) 01/18/2014 1:02 EDT 01/18/2014 1:12 EDT Sridevi Alvarez MD CHEMISTRY & BLOOD GA S ORDERABLES Performing Organization Address [facility] Co de Phone Number [facility] [address] [place] [address] * (ABNORMAL) SCREENING GLUCOSE (01/18/2014 1:02 EDT) Glucose, Screening 104(H) 70 - 100 mg/dl [facility] Blood specimen (specimen) 01/18/2014 1:02 EDT 01/18/2014 1:12 EDT Sridevi Alvarez MD CHEMISTRY & BLOOD GA S ORDERABLES Performing Organization Address [facility] Co de Phone Number [facility] [address] [place] [address] * ALKALINE PHOSPHATASE (01/18/2014 1:02 EDT) Total Alkaline Phosphatase 75 38 - 126 U/L [facility] Blood specimen (specimen) 01/18/2014 1:02 EDT 01/18/2014 1:12 EDT Sridevi Alvarez MD CHEMISTRY & BLOOD GA S ORDERABLES Performing Organization Address [place] de Phone Number [facility] [address] [place] [address] * (ABNORMAL) ALT (01/18/2014 1:02 EDT) ALT 78(H) 21 - 72 U/L [facility] Blood specimen (specimen) 01/18/2014 1:02 EDT 01/18/2014 1:12 EDT Sridevi Alvarez MD CHEMISTRY & BLOOD GA S ORDERABLES Performing Organization Address [facility] de Phone Number [facility] [address] [place] [address] * (ABNORMAL) AST (01/18/2014 1:02 EDT) AST 68(H) 15 - 46 U/L [facility] Blood specimen (specimen) 01/18/2014 1:02 EDT 01/18/2014 1:12 EDT Sridevi Alvarez MD CHEMISTRY & BLOOD GA S ORDERABLES Performing Organization Address [facility] Co de Phone Number [facility] [address] [place] [address] * (ABNORMAL) CREATININE (01/18/2014 1:02 EDT) Creatinine 0.53(L) 0.66 - 1.25 mg/dl [facility] GFR, Calculated >60 >60 ml/min/1.7 3m2 [facility] Blood specimen (specimen) 01/18/2014 1:02 EDT 01/18/2014 1:12 EDT Sridevi Alvarez MD CHEMISTRY & BLOOD GA S ORDERABLES Performing Organization Address [place] de Phone Number [facility] [address] [place] [address] * (ABNORMAL) BUN (01/18/2014 1:02 EDT) BUN 3(L) 10 - 26 mg/dl [facility] Blood specimen (specimen) 01/18/2014 1:02 EDT 01/18/2014 1:12 EDT Sridevi Alvarez MD CHEMISTRY & BLOOD GA S ORDERABLES Performing Organization Address [facility] Phone Number [facility] [address] [place] [address] * (ABNORMAL) ELECTROLYTES (01/18/2014 1:02 EDT) Sodium 143 136 - 145 mEq/L [facility] Potassium 3.8 3.5 - 5.0 mEq/L [facility] Chloride 107 96 - 110 mEq/L [facility] CO2 22(L) 24 - 32 mEq/L [facility] Blood specimen (specimen) 01/18/2014 1:02 EDT 01/18/2014 1:12 EDT Sridevi Alvarez MD CHEMISTRY & BLOOD GA S ORDERABLES Performing Organization Address [place] de Phone Number [facility] [address] [place] [address] * EKG 12-LEAD (01/18/2014 0:50 EDT) 01/18/2014 0:50 EDT Narrative [facility] EKG - 01/19/2014 8:36 EDT ?[facility] ? Test Date: ?2014-01-18 Pat Name: ? JIMENEZ BARKLEY ? Department: ?? [facility] ? Room: ? MW528 Gender: ? M ?Shuttle Inspector: ?? [id number] : ?1955 ? Requested By: BETZY SRIDEVI Order Number: [id number] ? Reading MD: ?? CHICO POSEY MD ? Measurements Intervals ?[place] ? Rate: ? 76 ? P: ?-24 [place]: ? 141 ?QRS: ?72 QRSD: ? 96 ? T: ?70 QT: ? 413 ? QTc: ?466 ? Interpretive Statements SINUS RHYTHM Normal ECG Compared to ECG 01/03/2014 08:06:42 No significant changes I have reviewed the tracing and have either agreed or edited the findings in this report. Electronically Signed On 01-19-14 08:36:54 EDT by CHICO POSEY MD. Procedure Note Chico Posey MD - 01/19/2014 [facility] Test Date: 2014-01-18 Pat Name: JIMENEZ BARKLEY Department: [place] [address] Room: [facility] Gender: M Shuttle Inspector: [id number] : 1955 Requested By: BETZY CASTILLO Order Number: [id number] Reading MD: CHICO POSEY MD Measurements Intervals [place] Rate: 76 P: -24 [place]: 141 QRS: 72 QRSD: 96 T: 70 QT: 413 QTc: 466 Interpretive Statements SINUS RHYTHM Normal ECG Compared to ECG 01/03/2014 08:06:42 No significant changes I have reviewed the tracing and have either agreed or edited the findingsin this report. Electronically Signed On 01-19-14 08:36:54 EDT by CHICO BUI. Sridevi Alvarez MD CARDIAC ECG ORDERABL ES [facility] EKG documented in this encounter Visit Diagnoses Diagnosis NSTEMI (non-ST elevated myocardial infarction) (HCC-CMS)- Primary Acute myocardial infarction, subendocardial infarction, episode of care unspecified NSTEMI (non-ST elevated myocardial infarction) (HCC-CMS) Acute myocardial infarction, subendocardial infarction, episode of care unspecified Delirium tremens ([facility]-CMS) Alcohol withdrawal delirium ETOH abuse Alcohol abuse, unspecified Alcohol withdrawal ([facility]-CMS) Alcohol withdrawal ETOH abuse Alcohol abuse, unspecified documented in this encounter Administered Medications Inactive Administered Medications - up to 3 most recent administrations Medication Order MAR Action Action Date Dose Rate Site acetaminophen (TYLENOL) tablet 650 mg 650 mg, oral, EVERY 4 HOURS PRN, Starting on 01/18/14 at 0055, Until Sun01/23/14 at 2023, Pain, Routine Given 01/23/2014 15:23 EDT 650 mg Given 01/23/2014 0:08 EDT 650 mg Given 01/22/2014 17:55 EDT 650 mg amitriptyline (ELAVIL) tablet 50 mg 50 mg, oral, AT BEDTIME, First dose on 01/18/14 at 0100, Until Discontinued, Routine Given 01/22/2014 20:21 EDT 50 mg Given 01/21/2014 20:57 EDT 50 mg Given 01/20/2014 20:30 EDT 50 mg aspirin chewable tablet 81 mg 81 mg, oral, DAILY, First dose on 01/18/14 at 0900, Until Discontinued, Routine Given 01/23/2014 8:32 EDT 81 mg Given 01/22/2014 9:22 EDT 81 mg Given 01/21/2014 8:42 EDT 81 mg atorvastatin (LIPITOR) tablet 40 mg 40 mg, oral, DAILY, First dose on 01/18/14 at 0900, Until Discontinued, Routine Given 01/23/2014 12:00 EDT 40 mg Given 01/22/2014 9:23 EDT 40 mg Given 01/21/2014 8:42 EDT 40 mg citalopram (CELEXA) tablet 40 mg 40 mg, oral, DAILY, First dose (after last modification) on 01/18/14 at 0900, Until Discontinued, Routine Given 01/23/2014 12:01 EDT 40 mg Given 01/22/2014 9:23 EDT 40 mg Given 01/21/2014 8:43 EDT 40 mg cloNIDine (CATAPRES) tablet 0.2 mg 0.2 mg, oral, DAILY, First dose on Sun01/19/14 at 1930, Until Discontinued, Routine Given 01/22/2014 9:26 EDT 0.2 mg Given 01/21/2014 8:43 EDT 0.2 mg Given 01/20/2014 8:24 EDT 0.2 mg clopidogrel (PLAVIX) tablet 75 mg 75 mg, oral, DAILY, First dose on Sun01/18/14 at 0900, Until Discontinued, Routine Given 01/23/2014 8:32 EDT 75 mg Given 01/22/2014 9:22 EDT 75 mg Given 01/21/2014 8:43 EDT 75 mg dextrose 5 %-0.9 % sodium chloride infusion at 100 mL/hr, 1,000 mL, intravenous, CONTINUOUS, Starting on Sun01/19/14 at 1345, Until Sun01/19/14 at 2359, Routine New Bag 01/19/2014 14:00 EDT 1,000 mL 100 mL/hr DIAZepam (VALIUM) syringe 10 mg 10 mg, intravenous, NOW X1, 1 dose, On Sun01/19/14 at 0145, Routine Given 01/19/2014 1:33 EDT 10 mg DIAZepam (VALIUM) syringe 5-10 mg 5-10 mg, intravenous, EVERY 1 HOUR PRN, Starting on Sun01/18/14 at 1946, Until Sun01/19/14 at 0012, Withdrawal, Routine Given 01/18/2014 23:41 EDT 10 mg Given 01/18/2014 22:48 EDT 5 mg Given 01/18/2014 22:08 EDT 5 mg DIAZepam (VALIUM) syringe 5-10 mg 5-10 mg, intravenous, EVERY 1 HOUR PRN, Starting on Sun01/19/14 at 0117, Until Sun01/19/14 at 1923, Withdrawal, Routine Given 01/19/2014 18:55 EDT 10 mg Given 01/19/2014 15:34 EDT 10 mg Given 01/19/2014 11:05 EDT 10 mg DIAZepam (VALIUM) syringe 5-10 mg 5-10 mg, intravenous, EVERY 1 HOUR PRN, Starting on Sun01/19/14 at 1935, Until Sun01/19/14 at 2031, Withdrawal, Routine Given 01/19/2014 20:12 EDT 10 mg DIAZepam (VALIUM) syringe 5-10 mg 5-10 mg, intravenous, EVERY 30 MINUTES PRN, Starting on Sun01/19/14 at 2045, Until Sun01/23/14 at 0857, Withdrawal, Routine Given 01/19/2014 21:12 EDT 10 mg DIAZepam (VALIUM) syringe 5-15 mg 5-15 mg, intravenous, EVERY 1 HOUR PRN, Starting on Sun01/19/14 at 1923, Until Sun01/19/14 at 1935, Withdrawal, Routine Given 01/19/2014 19:24 EDT 10 mg docusate sodium (COLACE) capsule 100 mg 100 mg, oral, DAILY, First dose on Sun01/18/14 at 0900, Until Discontinued, Routine Given 01/23/2014 8:32 EDT 100 mg Given 01/22/2014 9:22 EDT 100 mg Given 01/21/2014 8:42 EDT 100 mg fluticasone (FLOVENT HFA) 44 mcg/actuation inhaler 1 Puff 1 Puff, inhalation, 2 TIMES DAILY, First dose on Sun01/18/14 at 0100, Until Discontinued, Routine Given 01/18/2014 10:10 EDT 1 Puff folic acid (FOLVITE) tablet 1 mg 1 mg, oral, DAILY, First dose on Sun01/18/14 at 0900, Until Discontinued, Routine Given 01/23/2014 12:05 EDT 1 mg Given 01/22/2014 9:22 EDT 1 mg Given 01/21/2014 8:43 EDT 1 mg gabapentin (NEURONTIN) capsule 100 mg 100 mg, oral, 3 TIMES DAILY, First dose on Sun01/23/14 at 0915, Until Discontinued, Routine Given 01/23/2014 12:01 EDT 100 mg heparin 1,000 unit/mL injection 4,400 Units 4,400 Units (70 Units/kg ? 62.3 kg Adjusted weight), intravenous, PRN, Starting on Sun01/18/14 at 0043, Until Sun01/20/14 at 0837, Other, Routine Given 01/18/2014 11:13 EDT 4,400 Units heparin in D5W 25,000 unit/250 mL(100 unit/mL) infusion 16 Units/kg/hr ? 62.3 kg Adjusted weight (rounded to 10 mL/hr), intravenous, CONTINUOUS, Starting on Sun01/18/14 at 0100, Until Sun01/20/14 at 0837, Routine Rate Documented 01/19/2014 15:30 EDT 16 Units/kg/hr 10 mL/hr Rate Documented 01/19/2014 8:34 EDT 16 Units/kg/hr 10 mL/h r New Bag 01/19/2014 1:47 EDT 16 Units/kg/hr 10 mL/hr heparin injection 5,000 Units 5,000 Units, subcutaneous, EVERY 12 HOURS, First dose on Sanjuanita 01/22/14 at 0900, Until Discontinued, Routine Given 01/22/2014 20:21 EDT 5,000 Units Given 01/22/2014 9:25 EDT 5,000 Units labetalol (TRANDATE) 20 mg in dextrose 5% (D5W) 50 mL IVPB 20 mg, intravenous, Administer over 10 Minutes, NOW X1, 1 dose, On Sun01/19/14 at 1400, Routine Given 01/19/2014 15:00 EDT 20 mg levothyroxine (SYNTHROID) tablet 75 mcg 75 mcg, oral, DAILY BEFORE BREAKFAST, First dose on Sun01/18/14 at 0700, Until Discontinued, Routine Given 01/23/2014 6:33 EDT 75 mcg Given 01/22/2014 6:03 EDT 75 mcg Given 01/21/2014 6:26 EDT 75 mcg lidocaine 5 % (LIDODERM) patch 1 Patch 1 Patch, transdermal, Administer over 12 Hours, DAILY, First dose on Sun01/18/14 at 0900, Until Discontinued, Routine Patch Applied 01/23/2014 12:06 EDT 1 Patch Back Patch Applied 01/22/2014 9:26 EDT 1 Patch Le ft Shoulder Patch Applied 01/21/2014 6:27 EDT 1 Patch Ba ck lisinopril (PRINIVIL, ZESTRIL) tablet 10 mg 10 mg, oral, DAILY, First dose on Sanjuanita 01/22/14 at 0945, Until Discontinued, Routine Given 01/23/2014 12:01 EDT 10 mg Given 01/22/2014 10:38 EDT 10 mg lisinopril (PRINIVIL, ZESTRIL) tablet 20 mg 20 mg, oral, Once (Without Time Specified), Starting on Sun01/18/14 at 0100, Until Sun01/22/14 at 0923, Routine Given 01/18/2014 1:21 EDT 20 mg LORazepam (ATIVAN) injection 1-2 mg 1-2 mg, intravenous, EVERY 1 HOUR PRN, Starting on Sun01/19/14 at 0013, Until Sun01/19/14 at 0103, Withdrawal, Routine Given 01/19/2014 0:41 EDT 1 mg Given 01/19/2014 0:27 EDT 1 mg LORazepam (ATIVAN) tablet 2-4 mg 2-4 mg, oral, EVERY 1 HOUR PRN, Starting on Sun01/18/14 at 0045, Until Sun01/18/14 at 0710, Other, withdrawal and scoring on CIWA, Routine Given 01/18/2014 1:11 EDT 4 mg magnesium oxide (MAG-OX) tablet 400 mg 400 mg, oral, 3 TIMES DAILY, First dose on Sun01/20/14 at 1400, Until Discontinued, Routine Given 01/20/2014 20:31 EDT 40 0 mg Given 01/20/2014 14:48 EDT 400 mg magnesium sulfate in D5W 2 g/50 mL premade bag 2 g, intravenous, Administer over 30 Minutes, NOW X1, 1 dose, On Sun01/21/14 at 0800, Routine Given 01/21/2014 8:42 EDT 2 g magnesium sulfate in D5W 2 g/50 mL premade bag 2 g, intravenous, Administer over 30 Minutes, NOW X1, 1 dose, On Sun01/21/14 at 0900, Routine Given 01/21/2014 8:45 EDT 2 g metoprolol XL (TOPROL-XL) tablet 100 mg 100 mg, oral, DAILY, First dose (after last modification) on Sun01/19/14 at 0900, Until Discontinued, Routine Given 01/23/2014 12:01 EDT 100 mg Given 01/22/2014 9:23 EDT 100 mg Given 01/21/2014 8:42 EDT 100 mg metoprolol XL (TOPROL-XL) tablet 25 mg 25 mg, oral, NOW X1, 1 dose, On Sun01/18/14 at 1930, Routine Given 01/18/2014 20:32 EDT 25 mg metoprolol XL (TOPROL-XL) tablet 75 mg 75 mg, oral, DAILY, First dose on Sun01/18/14 at 0900, Until Discontinued, Routine Given 01/18/2014 11:15 EDT 75 mg mometasone-formoterol (DULERA) 100-5 mcg/actuation inhaler 2 Puff 2 Puff, inhalation, 2 TIMES DAILY, First dose on Sun01/18/14 at 2100, Until Discontinued, Routine Given 01/23/2014 12:06 EDT 2 Puffs Given 01/22/2014 20:22 EDT 2 Puffs Given 01/22/2014 9:24 EDT 2 Puffs Multivitamins with Minerals tablet 1 Tab 1 Tablet, oral, DAILY, First dose on Sun01/18/14 at 0900, Until Discontinued, Routine Given 01/23/2014 12:07 EDT 1 Tablet Given 01/22/2014 9:26 EDT 1 Tablet Given 01/21/2014 8:42 EDT 1 Tablet nicotine (NICODERM CQ) 21 mg/24 hr patch 1 Patch 1 Patch, transdermal, DAILY, First dose on Sun01/18/14 at 0900, Until Discontinued, Routine Patch Applied 01/23/2014 12:02 EDT 1 Patch Right Shoulder Patch Applied 01/22/2014 9:27 EDT 1 Patch Ri ght Chest Patch Applied 01/21/2014 8:43 EDT 1 Patch Le ft Arm nicotine (NICOTROL) 10 mg inhaler 1 Inhaler 1 Inhaler, inhalation, EVERY 2 HOURS PRN, Starting on Sun01/18/14 at 0044, Until Sun01/23/14 at 2022, Smoking Cessation, Routine Given 01/23/2014 12:04 EDT 1 Inhaler Given 01/22/2014 9:37 EDT 1 Inhaler Given 01/21/2014 18:20 EDT 1 Inhaler nitroGLYCERIN (NITROSTAT) SL tablet 0.4 mg 0.4 mg, sublingual, EVERY 5 MIN PRN, Starting on Sun01/18/14 at 0036, Until Sun01/23/14 at 2022, Chest Pain, Routine Given 01/18/2014 16:50 EDT 0.4 mg PEG 3350-Electrolytes (MIRALAX) packet 17 g 17 g, oral, DAILY, First dose on Sun01/22/14 at 0915, Until Discontinued, Routine Given 01/23/2014 12:08 EDT 17 g Given 01/22/2014 10:38 EDT 17 g potassium chloride SA (K-DUR, KLOR-CON M20) tablet 20 mEq 20 mEq, oral, 2 TIMES DAILY, First dose on Sun01/20/14 at 2100, Until Discontinued, Routine Given 01/23/2014 12:01 EDT 20 mEq Given 01/22/2014 20:21 EDT 20 mEq Given 01/22/2014 9:23 EDT 20 mEq ranitidine (ZANTAC) tablet 150 mg 150 mg, oral, 2 TIMES DAILY, First dose on 01/18/14 at 0100, Until Discontinued, Routine Given 01/23/2014 12:01 EDT 15 0 mg Given 01/22/2014 20:21 EDT 150 mg Given 01/22/2014 9:22 EDT 150 mg senna (SENOKOT) tablet 1 Tab 1 Tablet, oral, AT BEDTIME, First dose on 01/18/14 at 0200, Until Discontinued, Routine Given 01/22/2014 20:21 EDT 1 Tablet Given 01/21/2014 20:57 EDT 1 Tablet Given 01/20/2014 20:33 EDT 1 Tablet sodium chloride 0.9 % BOLUS 500 mL 500 mL, intravenous, NOW X1, 1 dose, On 01/18/14 at 0700, Routine Given 01/18/2014 6:37 EDT 500 mL sodium chloride 0.9 % flush 3 mL 3 mL, intravenous, EVERY 8 HOURS, First dose on 01/18/14 at 0100, Until Discontinued, Routine Given 01/23/2014 1 2:08 EDT 10 mL Given 01/23/2014 1:13 EDT 3 mL Given 01/22/2014 17:06 EDT 3 mL thiamine (VITAMIN B1) tablet 100 mg 100 mg, oral, DAILY, First dose on 01/18/14 at 0900, Until Discontinued, Routine Given 01/23/2014 12:05 EDT 100 mg Given 01/22/2014 9:22 EDT 100 mg Given 01/21/2014 8:43 EDT 100 mg tiotropium (SPIRIVA) 18 mcg inhalation capsule 18 mcg 18 mcg, inhalation, DAILY, First dose on 01/18/14 at 1600, Until Discontinued, Routine Given 01/22/2014 9:26 EDT 18 mcg Given 01/21/2014 8:44 EDT 18 mcg Given 01/20/2014 8:25 EDT 18 mcg documented in this encounter Discontinued Medications Medication Sig Discontinue Reason Start Date End Da te lisinopril (PRINIVIL, ZESTRIL) 20 mg tablet Take 1 Tab by mouth once for 90 days. 01/03/2014 01/23/2014 metoprolol XL (TOPROL-XL) 25 mg tablet Take 3 Tabs by mouth daily for 120 days. 01/03/2014 01/23/2014 atorvastatin (LIPITOR) 40 mg tablet Take 1 Tab by mouth daily for 90 days. 01/03/2014 01/23/2014 albuterol (PROVENTIL HFA, VENTOLIN HFA) 90 mcg/Actuation inhaler Inhale 2 Puffs as directed 4 times daily as needed for Wheezing. 01/23/2014 fluticasone (FLOVENT HFA) 44 mcg/Actuation inhaler Inhale 1 Puff as directed 2 times daily. 01/23/2014 levothyroxine (SYNTHROID) 25 mcg tablet Take 75 mcg by mouth daily. 01/23/2014 piroxicam (FELDENE) 20 mg capsule Take 20 mg by mouth daily. 01/23/2014 Multivitamins with Minerals tablet Take 1 Tab by mouth daily. 01/23/2014 01/23/2014 thiamine (VITAMIN B1) 100 mg tablet Take 1 Tab by mouth daily. 01/23/2014 01/23/2014 folic acid (FOLVITE) 1 mg tablet Take 1 Tab by mouth daily. 01/23/2014 01/23/2014 HYDROcodone-acetaminoph en (NORCO) 2.5-325 mg Take 1 Tab by mouth every 4 hours. 01/23/2014 01/23/2014 documented as of this encounter Active and Recently Administered Medications Times are shown in EDT. Scheduled Medication Order 01/21/2014 01/22/2014 01/23/2014 amitriptyline (ELAVIL) tablet 50 mg (CANCELED) 50 mg, oral, AT BEDTIME, First dose on 01/18/14 at 0100, Until Discontinued, Routine 2056 (Given - Provider: Eliz Junior) 2020 (Given - Provider: Flora Souza RN) aspirin chewable tablet 81 mg (CANCELED) 81 mg, oral, DAILY, First dose on 01/18/14 at 0900, Until Discontinued, Routine 0842 (Given - Provider: Fredi Lux RN) 0922 (Given - Provider: Kristel Huang RN) 0832 (Given - Provider: Kristel Huang RN) atorvastatin (LIPITOR) tablet 40 mg 40 mg, oral, DAILY, First dose on 01/18/14 at 0900, Until Discontinued, Routine 0842 (Given - Provider: Fredi Lux RN) 0923 (Given - Provider: Kristel Huang RN) 1200 (Given - Provider: Kristel Huang RN) citalopram (CELEXA) tablet 40 mg (CANCELED) 40 mg, oral, DAILY, First dose (after last modification) on 01/18/14 at 0900, Until Discontinued, Routine 0843 (Given - Provider: Fredi Lux RN) 0923 (Given - Provider: Kristel Huang RN) 1201 (Given - Provider: Kristel Huang RN) cloNIDine (CATAPRES) tablet 0.2 mg (CANCELED) 0.2 mg, oral, DAILY, First dose on Sun01/19/14 at 1930, Until Discontinued, Routine 0843 (Given - Provider: Fredi Lux RN) 0926 (Given - Provider: Kristel Huang RN) clopidogrel (PLAVIX) tablet 75 mg (CANCELED) 75 mg, oral, DAILY, First dose on 01/18/14 at 0900, Until Discontinued, Routine 0843 (Given - Provider: Fredi Lux RN) 0922 (Given - Provider: Kristel Huang RN) 0832 (Given - Provider: Kristel Huang RN) docusate sodium (COLACE) capsule 100 mg (CANCELED) 100 mg, oral, DAILY, First dose on 01/18/14 at 0900, Until Discontinued, Routine 0842 (Given - Provider: Fredi Lux RN) 0922 (Given - Provider: Kristel Huang RN) 0832 (Given - Provider: Kristel Huang RN) folic acid (FOLVITE) tablet 1 mg 1 mg, oral, DAILY, First dose on 01/18/14 at 0900, Until Discontinued, Routine 0843 (Given - Provider: Fredi Lux RN) 0922 (Given - Provider: Kristel Huang RN) 1205 (Given - Provider: Kristel Huang RN) gabapentin (NEURONTIN) capsule 100 mg 100 mg, oral, 3 TIMES DAILY, First dose on Sun01/23/14 at 0915, Until Discontinued, Routine 1201 (Given - Provider: Kristel Huang RN)1647 (Not Given - Provider: Flori Blanco RN - Reason: Other - Comment: previous dose given late) heparin injection 5,000 Units (CANCELED) 5,000 Units, subcutaneous, EVERY 12 HOURS, First dose on Sanjuanita 01/22/14 at 0900, Until Discontinued, Routine 0925 (Given - Provider: Kristel Huang RN)202 (Given - Provider: Flora Souza, NING) 1208 (Canceled Entry - Provider: Kristel Huang RN) levothyroxine (SYNTHROID) tablet 75 mcg 75 mcg, oral, DAILY BEFORE BREAKFAST, First dose on Sun01/18/14 at 0700, Until Discontinued, Routine 0626 (Given - Provider: Jovan Welch RN) 0603 (Given - Provider: Rishi Peterson RN) 0633 (Given - Provider: Kelly Rojas)0822 (Canceled Entry - Provider: Kristel Huang RN - Comment: patient wanted to sleep) lidocaine 5 % (LIDODERM) patch 1 Patch (CANCELED) 1 Patch, transdermal, Administer over 12 Hours, DAILY, First dose on Sun01/18/14 at 0900, Until Discontinued, Routine 06 (Patch Applied - Provider: Jovan Welch RN)0900 (Canceled Entry - Provider: Jovan Welch RN)1910 (Patch Removed - Provider: Eliz Junior) 0926 (Patch Applied - Provider: Kristel Huang, NING)2229 (Patch Removed - Provider: Flora Souza, NING) 1206 (Patch Applied - Provider: Kristel Huang, NING) lisinopril (PRINIVIL, ZESTRIL) tablet 10 mg (CANCELED) 10 mg, oral, DAILY, First dose on Sun01/22/14 at 0945, Until Discontinued, Routine 1038 (Given - Provider: Kristel Huang RN) 1201 (Given - Provider: Kristel Huang, NING) magnesium sulfate in D5W 2 g/50 mL premade bag (COMPLETED) 2 g, intravenous, Administer over 30 Minutes, NOW X1, 1 dose, On Sun01/21/14 at 0800, Routine 0842 (Given - Provider: Fredi Lux RN) magnesium sulfate in D5W 2 g/50 mL premade bag (COMPLETED) 2 g, intravenous, Administer over 30 Minutes, NOW X1, 1 dose, On Sun01/21/14 at 0900, Routine 0845 (Given - Provider: Fredi Lux RN) metoprolol XL (TOPROL-XL) tablet 100 mg 100 mg, oral, DAILY, First dose (after last modification) on Sun01/19/14 at 0900, Until Discontinued, Routine 0842 (Given - Provider: Fredi Lux RN) 0923 (Given - Provider: Kristel Huang RN) 120 (Given - Provider: Kristel Huang, NING) mometasone-formoterol (DULERA) 100-5 mcg/actuation inhaler 2 Puff 2 Puff, inhalation, 2 TIMES DAILY, First dose on 01/18/14 at 2100, Until Discontinued, Routine 0844 (Given - Provider: Fredi Lux RN)2053 (Given - Provider: Eliz Junior) 09 (Given - Provider: Kristel Huang, NING)2021 (Given - Provider: Flora Souza, NING) 120 (Given - Provider: Kristel Huang, NING) Multivitamins with Minerals tablet 1 Tab 1 Tablet, oral, DAILY, First dose on Sun01/18/14 at 0900, Until Discontinued, Routine 0842 (Given - Provider: Fredi Lux RN) 09 (Given - Provider: Kristel Huang, NING) 1207 (Given - Provider: Kristel Huang, RN) nicotine (NICODERM CQ) 21 mg/24 hr patch 1 Patch (CANCELED) 1 Patch, transdermal, DAILY, First dose on 01/18/14 at 0900, Until Discontinued, Routine 0843 (Patch Applied - Provider: Fredi Lux RN)2054 (Patch Removed - Provider: Eliz Junior) 09 (Patch Applied - Provider: Kristel Huang, NING)2024 (Patch Removed - Provider: Flora Souza, NING) 120 (Patch Applied - Provider: Kristel Huang, NING)2100 (Due: Patch Removed - Provider: Kristel Huang RN) PEG 3350-Electrolytes (MIRALAX) packet 17 g (CANCELED) 17 g, oral, DAILY, First dose on Sanjuanita 01/22/14 at 0915, Until Discontinued, Routine 1038 (Given - Provider: Kristel Huang, NING) 1208 (Given - Provider: Kristel Huang RN) potassium chloride SA (K-DUR, KLOR-CON M20) tablet 20 mEq (CANCELED) 20 mEq, oral, 2 TIMES DAILY, First dose on Sun01/20/14 at 2100, Until Discontinued, Routine 0843 (Given - Provider: Fredi Lux RN)2056 (Given - Provider: Eliz Junior) 09 (Given - Provider: Kristel Huang, NING)2020 (Given - Provider: Flora Souza, NING) 120 (Given - Provider: Kristel Huang RN) ranitidine (ZANTAC) tablet 150 mg (CANCELED) 150 mg, oral, 2 TIMES DAILY, First dose on 01/18/14 at 0100, Until Discontinued, Routine 0843 (Given - Provider: Fredi Lux RN)2056 (Given - Provider: Eliz Junior) 09 (Given - Provider: Kristel Huang RN)2020 (Given - Provider: Flora Souza RN) 120 (Given - Provider: Kristel Huang, NING) senna (SENOKOT) tablet 1 Tab (CANCELED) 1 Tablet, oral, AT BEDTIME, First dose on 01/18/14 at 0200, Until Discontinued, Routine 2056 (Given - Provider: Eliz Junior) 2020 (Given - Provider: Flora Souza RN) sodium chloride 0.9 % flush 3 mL (CANCELED) 3 mL, intravenous, EVERY 8 HOURS, First dose on 01/18/14 at 0100, Until Discontinued, Routine 0119 (Given - Provider: Jovan Welch, NING)0853 (Given - Provider: Fredi Lux RN)1740 (Not Given - Provider: Eliz Junior - Reason: Other - Comment: iv painful, to be replaced) 0045 (Given - Provider: Bailee Mario, NING)0928 (Given - Provider: Kristel Huang RN)1706 (Given - Provider: Flora Souza RN) 011 (Given - Provider: Kelly Rojas)1208 (Given - Provider: Kristel Huang RN)1519 (Not Given - Provider: Flori Blanco RN - Reason: Other - Comment: no iv access) thiamine (VITAMIN B1) tablet 100 mg 100 mg, oral, DAILY, First dose on 01/18/14 at 0900, Until Discontinued, Routine 0843 (Given - Provider: Fredi Lux RN) 0922 (Given - Provider: Kristel Huang RN) 1205 (Given - Provider: Kristel Huang RN) tiotropium (SPIRIVA) 18 mcg inhalation capsule 18 mcg 18 mcg, inhalation, DAILY, First dose on 01/18/14 at 1600, Until Discontinued, Routine 0844 (Given - Provider: Fredi Lux RN) 0926 (Given - Provider: Kristel Huang RN) 1209 (Hold - Provider: Kristel Huang RN - Reason: Medication not available) PRN Medication Order 01/21/2014 01/22/2014 01/23/2014 acetaminophen (TYLENOL) tablet 650 mg (CANCELED) 650 mg, oral, EVERY 4 HOURS PRN, Starting on 01/18/14 at 0055, Until Sun01/23/14 at 2022, Pain, Routine 1624 (Given - Provider: Eliz Junior) 1755 (Given - Provider: Flora Souza RN) 0008 (Given - Provider: Kelly Rojas)1523 (Given - Provider: Flori Blanco, NING - Comment: back pain) albuterol (VENTOLIN HFA) inhaler 2 Puff 2 Puff, inhalation, 4 TIMES DAILY PRN, Starting on 01/18/14 at 1246, Until Sun01/23/14 at 2022, Wheezing, Routine nicotine (NICOTROL) 10 mg inhaler 1 Inhaler (CANCELED) 1 Inhaler, inhalation, EVERY 2 HOURS PRN, Starting on 01/18/14 at 0044, Until Sun01/23/14 at 2022, Smoking Cessation, Routine 1820 (Given - Provider: Eliz Junior) 0937 (Given - Provider: Kristel Huang RN) 1204 (Given - Provider: Kristel Huang RN) documented in this encounter Orders Medications Ordered That Scott ht Not Have Been Administered Count Last Ordered Date First Ordered Date lidocaine-EPINEPHrine 2 %-1: 100,000 injection 5-10 mL 1 01/23/2014 DIAZepam (VALIUM) syringe 2.5-5 mg 1 2013 DIAZepam (VALIUM) syringe 5-10 mg 2 014 labetalol (TRANDATE) 20 mg i n dextrose 5% (D5W) 50 mL IVPB 1 01/19/2014 albuterol (VENTOLIN HFA) inhaler 2 Puff 2 0 01/18/2014 citalopram (CELEXA) tablet 60 mg 1 01/19/20 14 fluticasone (FLOVENT HFA) 44 mcg/actuation inhaler 1 Puff 1 01/18/2014 heparin 1,000 unit/mL inject ion 2,200 Units 1 01/18/2014 HYDROmorphone (DILAUDID) tablet 1 mg 1 12/2013 HYDROmorphone (DILAUDID) tablet 2 mg 1 12/2013 metoprolol (LOPRESSOR) 5 mg in sodium chloride (NS) 0.9 % 50 mL IVPB 1 01/18/2014 nicotine inhaler (delivery device) 1 2013 traMADol (ULTRAM) tablet 50 mg 1 01/18/2014 Lab Orders Without Results Count Last Ordered D ate First Ordered Date POCT BLOOD GAS, G3 I-STAT (BASIC ABG VBG) 1 01/18/2014 Diet Count Last Ordered Date First Orde red Date DISCHARGE DIET 3 01/23/2014 Nursing Count Last Ordered Date First Orde red Date ACTIVITY INSTRUCTIONS 3 01/23/2014 BATHING INSTRUCTIONS 2 01/23/2014 DRIVING INSTRUCTIONS 2 01/23/2014 PATIENT AT LOW RISK FOR VTE: RISK OF PHARMACOLOGIC PROPHYLAXIS OUTWEIG 1 01/23/2014 WOUND CARE INSTRUCTIONS 2 01/23/2014 BEDREST 1 01/18/2014 CONTRAINDICATION TO ANTICOAG ULATION THERAPY 1 01/18/2014 PT Count Last Ordered Date First Orde red Date PT EVALUATION AND TREAT 1 01/22/2014 IV Count Last Ordered Date First Orde red Date IV REQUEST 4 01/21/2014 01/18/2014 Admission Count Last Ordered Date First Orde red Date STATUS: INPATIENT ACUTE ADMISSION 1 014 Transfer Count Last Ordered Date First Orde red Date NOTIFY PPS OF DISCHARGE COMPLETE 1 01/24/20 14 NOTIFY PPS OF ROOM CHANGE COMPLETE 1 2013 Discharge Count Last Ordered Date First Orde red Date DISCHARGE PATIENT 1 01/23/2014 Legal Count Last Ordered Date First Orde red Date MISCELLANEOUS DISCHARGE INSTRUCTIONS 3 05/2014 Consult to Social Work Count Last Ordered Date First Ordered Date CONSULT SOCIAL WORK 1 01/20/2014 documented in this encounter Care Teams Corduroy Brusher Operator Relationship Specialty Start Date End Date Sai Garg MD [address] [place] [address] [phone] PCP - General 01/03/14 11/11/14 documented as of this encounter
--- OUTSIDE RECORDS SUMMARY | 2024-04-16 13:58 | XMS_ITS | Encounter Summary ---
Author Organization [facility] Address [address] [place] [address] Care Team Providers Care Housekeeping Cleaner Name Role Phone Unknown, Provider Primary Care Provider Reason for Visit * Reason Comments Other Encounter Details Date Type Department Care Team (Late st Contact Info) Description 12/24/2009 [facility] [address] [id number] Dominic Araujo MD [employer] [address] [place] [address] Other Social History Tobacco Use Types Packs/Day Years [...] on filedocumented in this encounter Care Teams Housekeeping Cleaner Relationship Specialty Start Date End Date Unknown, Provider, PCP - General 11/15/09 05/03/11 documented as of this encounter
--- OUTSIDE RECORDS SUMMARY | 2024-04-16 13:58 | XMS_ITS | Encounter Summary ---
Author Organization [facility] Address [address] [place] [address] Care Team Providers Care Ged Teacher Name Role Phone Reagan Foster MD Primary Care Pro vider Sai Garg MD Primary Care Provi glynn Reason for Referral * (Routine) - Closed Specialty Diagnoses / Procedures [facility] Referred To Contact Kristel Garcia NP [address] [place] [phone] Referral ID Status Reason Start Date Expiration Date V isits Requested Visits Authorized [id number] Closed Specialty Services Required 01/02/2014 1 1 Comments You have declined cardiac rehab as you do not drive. You are encouraged to stay physically active for your heart by walking 20 minutes each day, most days of the week, beginning gradually. You have received a written packet of information which describes the Home Walking Program. * (Routine) - Closed Specialty Diagnoses / Procedures [facility] Referred To Contact Kristel Garcia NP [address] [place] [id number] Referral ID Status Reason Start Date Expiration Date V isits Requested Visits Authorized [id number] Closed Specialty Services Required 01/02/2014 1 1 Question Answer Reason for recommendation: Discharge follow-up Comments Follow up with Dr Bryan Peraza, covered button maker in [place]. Office phone number for questions or concerns: [phone]. * (Routine) - Closed Specialty Diagnoses / Procedures [facility] Referred To Contact Kristel Garcia NP [address] [place] [address] [place] [address] Referral ID Status Reason Start Date Expiration Date V isits Requested Visits Authorized [id number] Closed Specialty Services Required 01/02/2014 1 1 Question Answer Reason for recommendation: Discharge follow up Reason for Visit * Reason Comments Chest Pain NSTEMI transfer ,arr yomaira 7/10 cp Encounter Details Date Type Department Care Team (Late st Contact Info) Description 01/02/2014 11:47 EDT - 01/03/2014 14:06 EDT Hospital Encounter [facility] Cardiac/Telemetry Unit [address] [place] [address] Shane Cr MD Plante, Laurel Barkell, MD [address] [facility], [address] [place] [id number] Braydon Putnam MD NSTEMI (non-ST elevated myocardial infarction) ([facility]) (Primary Dx) Discharge Disposition: Home or Self Care Social [...] Sign Reading Time Taken Comments Blood Pressure 178/90 01/03/2014 1123 EDT Pulse 73 01/03/2014 1123 EDT Temperature 36.4 ??C (97.5 ??F) 01/03/2014 0715 EDT Respiratory Rate 16 01/03/2014 1123 EDT Oxygen Saturation 97% 01/03/2014 1123 EDT Inhaled Oxygen Concentration - - Weight 65.8 kg (145 lb) 01/03/2014 0717 EDT Height 180.3 cm (5' 11) 01/03/2014 0717 EDT Body Mass Index 20.22 01/03/2014 0717 EDT documented in this encounter Functional Status [...] Yes 11/13/2009 documented as of this encounter Discharge Summaries * Joana Benson - 01/02/2014 1721 EDT Discharge Summary Attending Physician: Shane Cr MD Date of Admission: 01/02/2014 Date of Discharge: 01-03-14 Disposition: home Reason for Admission: NSTEMI Hospital Problems: Active Problems: NSTEMI (non-ST elevated myocardial infarction) Principal Procedure: [facility] with BMS x 3 to LAD Secondary Procedures: NA Hospital Course: 58 y/o m,parth with a past medical history of COPD, hypertension, alcoholism, and bipolar disorder who presented to an outside hospital with chest pain, EKG changes, and elevated cardiac biomarker's (NSTEMI) On presentation to the outside hospital he was noted to have chest pain, EKG changes, and elevated cardiac biomarkers. He was started on a heparin drip and loaded with aspirin and transferred to [facility]. In addition he received magnesium 2 g IV fro a Mg of 1.2. On presentation to [facility] he had continued chest pain with concern EKG changes as describedbelow and was loaded with Plavix, continued on heparin drip, and scheduled for left heart catheter.He received 3 BMS to his LAD. A follow up ECHO showed nearly preserved EF and septal/anteroseptal hypokinesis. On 01-03-14 he had remained stable with no further CP and was discharged home. He will follow up with cardiology as listed below and in the discharge instructions. He will be discharged on all of his previous medications with changes listed below. Diagnostic Cardiac Study Results Left main: normal Left anterior descending: diffuse prox disease 50+%, possible plaque rupture and mid 80% Left circumflex: normal Right coronary artery: Mild irregularities Grafts: na Interventional Procedure: Using standard technique, the prox to mid LAD vessel was stented using a total of 3 BARE METAL STENTS. 2.5X26 PROX AND 3X18 AND 3X18 MIDS WITH SHORT OVERLAP(S). PROX STENT POST DILATED WITH 3 MM BALLOON. Discharge Medications: START taking these medications Sig aspirin chewable 81 mg tablet Replaces: aspirin 325 mg tablet 81 mg, oral, DAILY atorvastatin 40 mg tablet Commonly known as: LIPITOR 40 mg, oral, DAILY clopidogrel 75 mg tablet Commonly known as: PLAVIX 75 mg, oral, DAILY metoprolol XL 25 mg tablet Commonly known as: TOPROL-XL 75 mg, oral, DAILY CHANGE how you take these medications Sig lisinopril 20 mg tablet Commonly known as: PRINIVIL ZESTRIL What changed: - medication strength - how much to take - when to take this 20 mg, oral, ONCE CONTINUE taking these medications Sig albuterol 90 mcg/actuation inhaler Commonly known as: VENTOLIN HFA 2 Puffs, inhalation, 4 TIMES DAILY PRN, amitriptyline 50 mg tablet Commonly known as: ELAVIL 50 mg, oral, AT BEDTIME, baclofen 10 mg tablet Commonly known as: LIORESAL 20 mg, oral, 2 TIMES DAILY, citalopram 20 mg tablet Commonly known as: CELEXA 60 mg, oral, DAILY, fluticasone 44 mcg/actuation inhaler Commonly known as: FLOVENT HFA 1 Puff, inhalation, 2 TIMES DAILY, levothyroxine 25 mcg tablet Commonly known as: SYNTHROID 75 mcg, oral, DAILY, nitroGLYCERIN 0.4 mg SL tablet Commonly known as: NITROSTAT 0.4 mg, sublingual, EVERY 5 MIN PRN piroxicam 20 mg capsule Commonly known as: FELDENE 20 mg, oral, DAILY, ranitidine 150 mg tablet Commonly known as: ZANTAC 150 mg, oral, 2 TIMES DAILY, STOP taking these medications aspirin 325 mg tablet Replaced by: aspirin chewable 81 mg tablet lithium 300 mg CR tablet Commonly known as: LITHOBID metoprolol 25 mg tablet Commonly known as: LOPRESSOR simvastatin 40 mg tablet Commonly known as: ZOCOR Allergies: Tegretol Follow-Up Appointments and Procedures Recommended to Patient: Follow-up appointments and procedures Follow up with covered button maker. The covered button maker's office will call you to set up an appointment. Follow up with Dr Bryan Peraza, covered button maker in [place]. Office phone number for questions or concerns: [phone]. Reason for recommendation: Discharge follow-up Authorizing Provider: Kristel Garcia NP Follow up with your primary care provider. Please call for an appointment. Reason for recommendation: Discharge follow up Authorizing Provider: Kristel Garcia NP You have been referred for cardiac rehabilitation at your local hospital. You have declined cardiac rehab as you do not drive. You are encouraged to stay physically active for your heart by walking 20 minutes each day, most days of the week, beginning gradually. You have received a written packet of information which describes the Home Walking Program. Authorizing Provider: Kristel Garcia NP Jacqueline O'Toole, DO PGY1 documented in this encounter Medications at Time [...] times daily as needed for Wheezing. 01/23/2014 atorvastatin (LIPITOR) 40 mg tablet Take [...] by mouth daily. 01/23/2014 lisinopril (PRINIVIL, ZESTRIL) 20 mg tablet Take 1 Tab by mouth once for 90 days. 90 Tab 0 01/03/2014 01/23/2014 metoprolol XL (TOPROL-XL) 25 mg [...] mg by mouth 2 times daily. 03/12/2015 documented as of this encounter Ordered Prescriptions Prescription Sig Dispensed Refills Start Date End Da te aspirin chewable 81 mg tablet Take 1 Tab by mouth daily. 01/03/2014 lisinopril (PRINIVIL, ZESTRIL) 20 mg tablet Take 1 Tab by mouth once for 90 days. 90 Tab 0 01/03/2014 01/23/2014 metoprolol XL (TOPROL-XL) 25 mg tablet Take 3 Tabs by mouth daily for 120 days. 90 Tab 3 01/03/2014 01/23/2014 clopidogrel (PLAVIX) 75 mg tablet Take 1 Tab by mouth daily for 120 days. 30 Tab 3 01/03/2014 04/03/2014 atorvastatin (LIPITOR) 40 mg tablet Take 1 Tab by mouth daily for 90 days. 30 Tab 2 01/03/2014 01/23/2014 documented in this encounter Discharge Disposition Disposition Code Departure Means Destination Home or Self Care documented in this encounter Progress Notes * Justus Lantigua MD - 01/02/2014 1818 EDT Cardiology Post Procedure Note s/p left heart cardiac catheterization S: Pt resting comfortably. Denies chest pain, palpitations, lightheadedness, dizziness, dyspnea, numbness or weakness. Denies pain, bleeding or discharge from the cath site. Ambulating without complication. O:Blood pressure 140/75, pulse 79, temperature 36.1 ??C (97 ??F), temperature source Tympanic, resp. rate 18, weight 65.772 kg (145 lb), SpO2 96.00%. Gen: NAD, resting comfortably Chest: CTAB, no w/r/r CV: RRR, S1/S2 normal, no m/r/g Extr: right groin cath site c/d/i, no bleeding or discharge, no hematoma or mass Pulse: 2+ Neuro: A+Ox3, 5/5 strength, grossly normal sensation A/P: 58 y.o.male s/p cardiac catheterization. -- cont to monitor -- cont plan as per morning note Justus Lantigua MD 01/02/2014 18:19 * Kristel Garcia NP - 01/02/2014 1522 EDT Plavix daily without interruption x 1 month minimum and ideally 1 year and Aspirin 81 mg daily lifetime reviewed with patient and the patient verbalizes understanding, although he is currently under the influence of both ETOH and sedation. He has declined cardiac rehab as he states that he does notdrive. He states he no longer lives in [place], that he lives in [facility]; [place] but on the map it is actually in [facility]. Unsure closest location of follow up, but I have scheduled this at [facility] as he came from there by ambulance. Registration will interview patient tomorrow to obtain correct patient contact information. D/w Dr Lantigua who will correct follow up location if needed and reinforce Plavix patient education. documented in this encounter H&P Notes * Chico Posey MD - 01/02/2014 1213 EDT Cardiology Admitting H+P Admite Date: 01/02/2014 Date of Service: 01/02/2014 LOS: 0 days Chief Complaint: Chief Complaint Patient presents with ??? Chest Pain NSTEMI transfer ,arrives 03/26 cp Dx: NSTEMI HPI: 58 y/o m,parth with a past medical history of COPD, hypertension, alcoholism, and bipolar disorder who presented to an outside hospital with chest pain, EKG changes, and elevated cardiac biomarkers. He began having chest pain under his left ribs early this morning that radiated to the center of his chest. His sensation was described as like being stabbed. His pain has been waxing and waning throughout the morning at the worst at 10/10 and currently a 7/10. This is associated with nausea, and li ghtheadedness/dizziness. On presentation to the outside hospital he was noted to have chest pain, EKG changes, and elevated cardiac biomarkers. He was started on a heparin drip and loaded with aspirin and transferred to [facility]. In addition he received magnesium 2 g IV On presentation to [facility] he had continued chest pain with concern EKG changes as describedbelow and was loaded with Plavix, continued on heparin drip, and scheduled for left heart catheter. Review Of Systems: Constitutional: No fevers. No sweats. No chills. Weight stable. Appetite normal. Cardiovascular: (+) chest pain. No palpitations. Respiratory: No cough. No wheezing. No shortness of breath. Gastrointestinal: No abdominal pain. No nausea. No vomiting. No diarrhea. No constipation. Skin: No rashes. No suspicious lesions. Musculoskeletal: No myalgias, weakness, joint pain or swelling. Eyes: No pain. No visual changes. ENT/mouth: Hearing normal. No swallowing problems. No oral complaints. Genitourinary: No dysuria. No foul smelling urine. No hematuria. Neurological: No seizures. No focal weakness. No blackouts. Psychiatric: No anxiety. No depression. Endocrine: No polyuria. No polydipsia. Hematologic: No bleeding. No bruising. PMH PSH Past Medical History Diagnosis Date [...] Laterality Date ??? Tonsillectomy Social History Family History History Substance Use Topics ??? Smoking status: Current Every Day Smoker -- 0.50 packs/day for 35 years ??? Smokeless tobacco: Not on file ??? Alcohol Use: Yes Comment: drinks rarely but he is a binge drinker when he does drink Family History Problem Relation Age of Onset ??? High Blood Pressure Mother ??? High Cholesterol Mother ??? High Blood Pressure Father ??? Mental Illness Father Medications (Not in a hospital admission) Current Facility-Administered Medications Medication Route Frequency ??? heparin in D5W 25,000 unit/250 mL(100 unit/mL) infusion intravenous CONTINUOUS ??? heparin in D5W 25,000 unit/250 mL(100 unit/mL) infusion Current Outpatient Prescriptions Medication Sig Dispense Refill ??? albuterol (PROVENTIL HFA, VENTOLIN HFA) 90 mcg/Actuation inhaler Inhale 2 Puffs as directed 4 times daily as needed for Wheezing. ??? amitriptyline (ELAVIL) 50 mg tablet Take 50 mg by mouth at bedtime. ??? aspirin 325 mg tablet Take 1 Tab by mouth daily. 30 Tab 0 ??? baclofen (LIORESAL) 10 mg tablet Take 20 mg by mouth 2 times daily. ??? citalopram (CELEXA) 20 mg tablet Take 60 mg by mouth daily. ??? fluticasone (FLOVENT HFA) 44 mcg/Actuation inhaler Inhale 1 Puff as directed 2 times daily. ??? levothyroxine (SYNTHROID) 25 mcg tablet Take 75 mcg by mouth daily. ??? lisinopril (PRINIVIL, ZESTRIL) 10 mg tablet Take 10 mg by mouth daily. ??? lithium (LITHOBID) 300 mg CR tablet Take 300 mg by mouth daily. ??? lithium (LITHOBID) 300 mg CR tablet Take 600 mg by mouth at bedtime. ??? metoprolol (LOPRESSOR) 25 mg tablet Take 1 Tab by mouth 2 times daily. 60 Tab 0 ??? nitroGLYCERIN (NITROSTAT) 0.[address] 1 Tab under the tongue every 5 minutes as needed for Chest Pain. 15 Tab 0 ??? piroxicam (FELDENE) 20 mg capsule Take 20 mg by mouth daily. ??? ranitidine (ZANTAC) 150 mg tablet Take 150 mg by mouth 2 times daily. ??? simvastatin (ZOCOR) 40 mg tablet Take 1 Tab by mouth daily. 56 Tab 3 Allergies Allergies Allergen Reactions ??? Tegretol (Carbamazepine) Hives Physical Examination: Vital Signs: Patient Vitals for the past 8 hrs: BP Pulse Resp Temp SpO2 O2 Flow Rate (L/min) 01/02/14 1200 - - - 35 ??C (95 ??F) - - 01/02/14 1157 140/82 mmHg 79 28 - 100 % 4 l/min Gen: Patient older than stated age, disheveled, smells like alcohol HEENT: head at/nc, PERRLA, EOMI, hearing grossly intact, neck supple, trachea midline CV: RRR S1 S2 normal, no m/g/r, no JVD Lungs: CTAB, no wheezes, no crackles, no rubs Abd: soft, NT, ND, bowel sounds normoactive, no appreciable organomegaly Ext: warm, no cyanosis, dp and pt pulses symmetric and 2+ Skin: no lesions/rashes Neuro: grossly intact Data Review: I have independently visualized the following Labs: Labs from outside hospital notable for a hemoglobin of 16, platelets of 96, ethanol level of 149, troponin of 0.084, magnesium of 1.2, sodium of 131, potassium 3.4, AST of 221, ALT of 239. EKG: Normal sinus rhythm, rate controlled, nonspecific ST changes and anterior lateral ST segment concerning for development of ST elevations. Assessment/Problems/Plans: 58 y/o m,parth with a past medical history of COPD, hypertension, alcoholism, and bipolar disorder who presented to an outside hospital with chest pain, EKG changes, and elevated cardiac biomarkers. Transferred to [facility] for further care. Received aspirin 325 at outside hospital, and started on a heparin drip. Loaded with Plavix on presentation here and scheduled for left heart catheter. NSTEMI: symptomatic. --Cycle enzymes until they begin trending down -- Heparin gtt --Received 325 aspirin outside hospital and loaded with Plavix 600 mg on arrival --Monitor on telemetry --Echo --LHC if indicated --Check FLP and HbA1c --Start intense therapy atorvastatin Hypertension: Goal BP: <130/80 --metoprolol 12.5 BID Alcoholism: At high risk for withdrawal. ETOH at 149 at OSH - CIWA COPD: -- Duo- nebs as needed --Supplemental oxygen as needed Tobacco dependence: Extensive tobacco history --Nicotine replacement therapy offered --Smoking cessation counseling offered GI/Nutrition: - diet NPO for now - daily lytes, bun, cr - strict I&O - daily weights GI & DVT Prophylaxis: heparin gtt CODE status: full Prognosis/Disposition: pending cath results Justus Lantigua MD 01/02/2014 12:13 Pager #[phone] Pt seen and examined prior to cardiac cath. Ongoing moderate CP. No rub. Moderate distress, somewhat agitated/anxious. Pulses good LEs. ECG with concerning anterior ST changes bordering on STEMI criteria. For emergent cardiac cath. See my procedure note. High risk for med non compliance or bleeding on initial eval. Bare metal stents appropriate. Chico Posey MD Cardiology Pager [phone] [facility] documented in this encounter Procedure Notes * Chico Posey MD - 01/02/2014 7954 EDT Cardiovascular Catheterization Laboratory Preliminary Report -- Catheterization Date of Service/Procedure: 01/02/2014 Attending Physician: Chico Posey MD Fellow: Kenyon Sullivan MD and Kiley Moran MD Pre-Procedure Diagnosis/Indication: Jimenez Barkley is a 58 y.o. year old male with NSTEMI. NCDR Indication for PCI:NSTEMI Prior Stress Testing? No Cardiac Medications: On two or more anti anginal medications at the time of catheterization? No Anesthesia: A moderate level of anesthesia/conscious sedation was used in addition to local anesthesia. Access: Right femoral artery Procedure: He was brought to the [facility] Cardiac Catheter[facility] for the procedure: Diagnostic coronary/graft angiography and Coronary intervention (PCI). Closure: [place] Post-Procedure Condition: The condition of the patient was Serious. Complications: None. IV Contrast Total: 300 mL Estimated Blood Loss: Minimal. Unless otherwise noted, there were no specimens removed, cultures obtained, or drains retained. Clinical Trial: is not enrolled in a clinical trial. Diagnostic Cardiac Study Results Left main: normal Left anterior descending: diffuse prox disease 50+%, possible plaque rupture and mid 80% Left circumflex: normal Right coronary artery: Mild irregularities Grafts: na Left Ventriculography and Hemodynamic Results None Endovascular Study Results None Post-Procedure Diagnostic Conclusion: PCI is indicated. Interventional Procedure: Using standard technique, the prox to mid LAD vessel was stented using a total of 3 BARE METAL STENTS. 2.5X26 PROX AND 3X18 AND 3X18 MIDS WITH SHORT OVERLAP(S). PROX STENT POST DILATED WITH 3 MM BALLOON. Plan: See post-procedure orders. Aspirin 81mg po daily. Plavix 75 mg po daily x 1 year minimum. ALTHOUGH USED BARE METAL STENTS GIVEN ACUTE CORONARY SYNDROME WOULD STILL IDEALLY UTILIZE PLAVIX 1 YR UNLESS PROBLEMS Monitor mental status for DTs etc No family available Post Interventional Conclusion/Physician Disposition: (check one main category) Inpatient procedure, continue inpatient status (no procedural complication required) Chico Posey MD Pager Number: [phone] 01/02/2014 13:58 documented in this encounter ED Notes * Buffy Jesus RN - 01/02/2014 1300 EDT To PROTECTIVE SIGNAL REPAIRER * Yolanda Gonzalez MD - 01/02/2014 1210 EDT DOS: 01/02/2014 Chief Complaint Patient presents with ??? Chest Pain NSTEMI transfer ,arrives 03/26 cp The patient is a 58 y.o. male who presents today with Chest Pain HPI Comments: I performed a history and exam of this patient and discussed the case with the resident. I reviewed this individual's note and I concur with the documented findings and plan of care except as documented differently. ROS as per resident chart. Otherwise reviewed in full and negative or non-contributory. The history is provided by the patient and medical records. Chest Pain Review of Systems Cardiovascular: Positive for chest pain. Past Medical History Diagnosis Date ??? Psychiatric [...] Surgical History Procedure Laterality Date ??? Tonsillectomy Allergies Allergen Reactions ??? Tegretol (Carbamazepine) Hives History Substance Use Topics ??? Smoking status: Current Every Day Smoker -- 0.50 packs/day for 35 years ??? Smokeless tobacco: Not on file ??? Alcohol Use: Yes Comment: drinks rarely but he is a binge drinker when he does drink Family History Problem Relation Age of Onset ??? High Blood Pressure Mother ??? High Cholesterol Mother ??? High Blood Pressure Father ??? Mental Illness Father Vital Signs Temp: 35 ??C (95 ??F) Temp src: Oral Pulse: 79 Cardiac Rhythm: Normal sinus rhythm Resp: 28 SpO2: 100 % BP: 140/82 mmHg O2 Flow Rate (L/min): 4 l/min O2 Device: Nasal cannula Physical Exam Nursing note and vitals reviewed. Constitutional: He appears well-developed and well-nourished. Unkempt. HENT: Head: Normocephalic and atraumatic. Right Ear: External ear normal. Left Ear: External ear normal. Nose: Nose normal. Poor dentition Eyes: Pupils are equal, round, and reactive to light. Right eye exhibits no discharge. Left eye exhibits no discharge. Neck: Normal range of motion. Neck supple. No tracheal deviation present. Cardiovascular: Normal rate, regular rhythm and normal heart sounds. Pulmonary/Chest: Effort normal and breath sounds normal. No respiratory distress. Abdominal: Soft. There is no tenderness. Musculoskeletal: Normal range of motion. He exhibits no edema. Neurological: He is alert. He has normal strength. He is not disoriented. No sensory deficit. Skin: Skin is warm and dry. No rash noted. Psychiatric: He has a normal mood and affect. LEFT HEART CATH (Results Pending) Radiology orders: LEFT HEART CATH Imaging Results None EKG 12-LEAD (Results Pending) EKG 12-LEAD (Canceled) Procedures Lab Results PROFILE ED CARDIAC PACK (Final result) MAGNESIUM (Final result) Component (Lab Inquiry) Result Time Magnesium 01/02/14 13:19:32 1.9 ELECTROLYTES (Final result) Abnormal Component (Lab Inquiry) Result Time Sodium Potassium Chloride CO2 01/02/14 13:19:32 140 3.4 (L) 102 22 (L) BUN (Final result) Abnormal Component (Lab Inquiry) Result Time BUN 01/02/14 13:19:32 5 (L) CREATININE (Final result) Abnormal Component (Lab Inquiry) Result Time Creatinine GFR, Calculated 01/02/14 13:19:32 0.64 (L) >60 SCREENING GLUCOSE (Final result) Component (Lab Inquiry) Result Time Glucose, Screening 01/02/14 13:19:32 79 CK MB WITH TOTAL CK (Final result) Component (Lab Inquiry) Result Time CK MB 01/02/14 13:04:40 87 0.92 TROPONIN I (Final result) Abnormal Component (Lab Inquiry) Result Time Troponin I 01/02/14 13:04:40 0.040 (H) HOLD BLUE TOP (Final result) Component (Lab Inquiry) Result Time Hold Blue Top 01/02/14 12:46:47 Sample for coagulation will be discarded after 4 hours HEMAGRAM (Final result) Abnormal Component (Lab Inquiry) Result Time WBC RBC Hemoglobin HCT MCV 01/02/14 12:42:30 7.03 4.55 14.7 42.5 93 Result Time MCH MCHC PLT RDW-CV 01/02/14 12:42:30 32.3 34.6 107 (L) 13.9 DIFFERENTIAL (Final result) Abnormal Component (Lab Inquiry) Result Time Neutrophils Lymphocytes Monocytes Eosinophils Basophils 01/02/14 12:42:30 74.0 13.1 (L) 8.3 3.6 1.0 Result Time ABS Neutrophils ABS Lymphs ABS Monocytes ABS Eosinophils ABS Basophils 01/02/14 12:42:30 5.21 0.92 (L) 0.59 0.25 0.07 Result Time Type of Diff: 01/02/14 12:42:30 Automated ED Course: A medical screening exam was performed. Patient transferred from outside hospital. Chronically ill-appearing man here with chest pain since3 AM. It is actually mildly improved. He states it was a 10 out of 10, now it is a 7/10. However, it is continuing. His troponin from the outside hospital is elevated. He also has an alcohol level of150. EKG shows a question of some ST elevation in the anterior leads, but it actually looks more like early repolarization. However, given the elevated troponin this could represent some ST elevations. Seen by cards. Patient to go directly to director of labor relations. ? Evolving anterior OK. Labs pending at time of admission. Disposition: Admitted The patient's pain was managed to an adequate level weighing risk vs. benefit of further medications. Upon departure from the Emergency Department, the patient's pain was 7 on a zero to ten scale. Condition at departure from the Emergency Department: Fair Discharge Prescriptions New Prescriptions No Discharge Prescriptions for this patient MDM 5 Final diagnoses: NSTEMI (non-ST elevated myocardial infarction) PCP: Reagan Foster MD 01/02/2014 13:04 * Cherrie Gonzalez RN - 01/02/2014 1203 EDT 12 Lead EKG Performed by CHERRIE GONZALEZ RN and shown to Dr Yolanda Gonzalez * Toribio Ervin RN - 01/02/2014 1202 EDT Pt stopped in ED rt CP 06/26 enroute direct admit. 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 Acute hypotention when given nitroglycerine. 2 grams magnesium given for mag 1.2. Morphine and fentanyl for pain public housing interviewer. documented in this encounter Miscellaneous Notes * Plan of Care - Marito Nair - 01/03/2014 1401 EDT Problem: PAIN Goal: Patient???s Pain And Discomfort Are Adequately Managed Intervention: Identify appropriate pain tool Data: Pt has discharge orders. Action: Pt given AVS and instructions and New Medications discussed. SL and Telemtry removed. Response: Pt indicated he understood the instructions and his new medications are available at his pharmacy. Marito Nair RN 01/03/2014 14:00 * Plan of Care - Marito Nair - 01/03/2014 0957 EDT Problem: PAIN Goal: Patient???s Pain And Discomfort Are Adequately Managed Intervention: Assess pain level Pain is to be assessed: admission, every shift, prior to medication administration, within two hours after pain medication administration, before transfer or discharge and every two hours while on CLUB FORMER or epidural. Data: Pt had been complaining of left chest pain during the night and had been given morphine. Action: VS and assessment completed. Pt asked about his pain. Response: Pt stated that it is much better, then he asked what was wrong with me? Explained that hehad an OK and stents had been placed in the LAD artery supplying the left side of his heart. Pt seemed to understand and is now resting comfortably. Marito Nair RN 01/03/2014 9:52 * Plan of Care - Rajat Perry RN - 01/03/2014 0224 EDT Problem: PAIN Goal: Patient???s Pain And Discomfort Are Adequately Managed Outcome: Ongoing D: Patient complained of 7/10 pain. Located in left chest, with similar quality to what was reported during evening shift. A: Pain interventions are paging Dr. Sanders to notify, ordered morphine to be administered and reevaluate pain and interventions. Pt administered PRN IV morphine 2 mg. When pt reassessed a few minutes later, pt appeared to be resting quietly in bed. R: Will continue to monitor and assess. * Plan of Care - Shakira Camarena RN - 01/02/2014 6138 EDT D: Assumed care of pt at 15:00, pt s/p LHC w/ right femoral site CDI, pt c/o intermittent CP, NSR per tele, pt on CIWA w/ 1:1 sitter at bedside to ensure pt remains on strict bedrest A: MD Lantigua on unit and made aware of pt intermittent CP, assessment as documented R: Pt remains stable, currently not scoring on CIWA, 1:[address] as pt to be on bedrest for 12hrs post LHC, pt resting comfortably, will ctm. 20:26 Pt given 1mg ativan IV for CIWA score of 13. Pt agreeable to take ativan and instructed by RN to make her aware of any withdrawal symptoms he experiences. Will ctm. * ED Resident - Mary Ang MD - 01/02/2014 1599 EDT DOS: 01/02/2014 Chief Complaint Patient presents with ??? Chest Pain NSTEMI transfer ,arrives 7/10 cp The patient is a 58 y.o. male who presents today with Chest Pain The history is provided by the patient. Chest Pain Pain location: L lateral chest Pain quality: stabbing Radiates to: central chest. Pain radiates to the back: no Pain severity: Severe Onset quality: Sudden Progression: Partially resolved Chronicity: New Relieved by: Something given at OSH. Worsened by: Nothing tried Associated symptoms: dizziness, nausea, near-syncope and shortness of breath Associated symptoms: no diaphoresis, no dysphagia, no headache, no palpitations, no syncope and notvomiting Risk factors: high cholesterol, hypertension, male sex and smoking Risk factors: no diabetes mellitus Jimenez Barkley is a 58 year old gentleman with a past medical history of bipolar disorder, COPD (not on home O2, current 1 ppd smoker), HTN, HLD, and current heavy drinker (several 12 packs a week) whopresents as an OSH transfer for chest pain. Patient states that his chest pain started suddenly at 3 AM and felt like a 10/10 stabbing pain under his left ribs that radiated to the center of his chest. He then went to the OSH where they found elevated cardiac biomarkers, elevated LFTs, thrombocytopenia, and an elevated blood alcohol level. At that time the OSH gave aspirin, started a heparin dripand transferred to [facility]. Patient was seen in the ED for concern for ongoing chest pain. Patient stated his pain had improved to a 7/10 with similar location and quality as before. Pain is accompaniedby nausea / upset stomach and feeling dizzy / lightheaded. He denies headache, shoulder pain, neck pain, jaw pain, palpitations, and vomiting. He has never had pain like this before and has never hada heart attack. Review of Systems Constitutional: Negative for chills and diaphoresis. HENT: Negative for trouble swallowing and neck pain. Eyes: Negative for visual disturbance. Respiratory: Positive for chest tightness and shortness of breath. Cardiovascular: Positive for chest pain and near-syncope. Negative for palpitations and syncope. Gastrointestinal: Positive for nausea. Negative for vomiting. Genitourinary: Negative for dysuria and decreased urine volume. Skin: Negative for rash. Neurological: Positive for dizziness. Negative for headaches. Psychiatric/Behavioral: The patient is nervous/anxious. Past Medical History Diagnosis Date ??? Psychiatric [...] Surgical History Procedure Laterality Date ??? Tonsillectomy Allergies Allergen Reactions ??? Tegretol (Carbamazepine) Hives History Substance Use Topics ??? Smoking status: Current Every Day Smoker -- 0.50 packs/day for 35 years ??? Smokeless tobacco: Not on file ??? Alcohol Use: Yes Comment: drinks rarely but he is a binge drinker when he does drink Family History Problem Relation Age of Onset ??? High Blood Pressure Mother ??? High Cholesterol Mother ??? High Blood Pressure Father ??? Mental Illness Father Vital Signs Vitals Reassessment?: Yes Temp: 35 ??C (95 ??F) Temp src: Oral Pulse: 79 Heart Rate: 70 BPM Cardiac Rhythm: Normal sinus rhythm Resp: 22 SpO2: 100 % BP: 148/83 mmHg O2 Flow Rate (L/min): 2 l/min O2 Device: Nasal cannula Physical Exam Vitals reviewed. Constitutional: He is oriented to person, place, and time. Unkempt gentleman sitting in bed HENT: Head: Normocephalic and atraumatic. Poor dentition Cardiovascular: Normal rate and regular rhythm. Pulmonary/Chest: Breath sounds normal. Abdominal: Soft. Bowel sounds are normal. He exhibits no distension. There is no tenderness. Genitourinary: No ferris catheter Musculoskeletal: He exhibits no edema. Neurological: He is alert and oriented to person, place, and time. Skin: Skin is warm and dry. LEFT HEART CATH (Results Pending) Radiology orders: LEFT HEART CATH Imaging Results None EKG 12-LEAD (Results Pending) EKG 12-LEAD (Canceled) Procedures ED Course: A medical screening exam was performed. Patient is a gentleman with multiple cardiac risk factors who presented from an OSH with elevated cardiac biomarkers and continuing chest pain. Most likely etiology of chest pain is ACS. Diagnostic approach: -EKG: evolving ST changes in V2-V5 -Cardiac pack: pertinent for elevated troponin, thrombocytopenia, hypokalemia, decreased bicarb (likely secondary to primary respiratory acidosis) Admit to cardiology, will undergo left heart cath today Disposition: Admitted The patient's pain was managed to an adequate level weighing risk vs. benefit of further medications. Upon departure from the Emergency Department, the patient's pain was 7 on a zero to ten scale. Condition at departure from the Emergency Department: Serious Discharge Prescriptions New Prescriptions No Discharge Prescriptions for this patient MDM Final diagnoses: NSTEMI (non-ST elevated myocardial infarction) PCP: Reagan Foster MD 01/02/2014 13:36 documented in this encounter Plan of Treatment Scheduled Referrals Name Type Priority Associated Diagnoses Order Schedule PROVIDER FOLLOW-UP INSTRUCTIONS Outpatient Referral Routine Ordered: 01/02/2014 PROVIDER FOLLOW-UP INSTRUCTIONS Outpatient Referral Routine Ordered: 01/02/2014 PROVIDER FOLLOW-UP INSTRUCTIONS Outpatient Referral Routine Ordered: 01/02/2014 documented as of this encounter Procedures Procedure Name Priority Date/Time Associated Diagnosis Comments INVASIVE CARDIOLOGY REPORT-SCANNED 09/29/2015 9:35 EST ECG REPORT - SCANNED 01/09/2014 14:28 EDT ECG REPORT - SCANNED 01/08/2014 13:09 EDT INVASIVE CARDIOLOGY REPORT-SCANNED 01/08/2014 13:09 EDT ECG REPORT - SCANNED 01/07/2014 15:11 EDT ECG REPORT - SCANNED 01/07/2014 15:11 EDT EKG 12-LEAD Routine 01/03/2014 8:06 EDT SMEAR REVIEW Routine 01/03/2014 5:38 EDT COMPLETE BLOOD COUNT Routine 01/03/2014 5:38 EDT BUN Routine 01/03/2014 5:38 EDT ALT Routine 01/03/2014 5:38 EDT AST Routine 01/03/2014 5:38 EDT CREATININE Routine 01/03/2014 5:38 EDT CK MB WITH TOTAL CK Routine 01/03/2014 5 :38 EDT LIPID PROFILE (INCLUDES CHOLESTEROL, TRIGLYCERIDES, HDL, LDL) Routine 01/03/2014 5:38 EDT ELECTROLYTES Routine 01/03/2014 5:38 EDT TROPONIN I Routine 01/02/2014 21:33 EDT CK MB WITH TOTAL CK Routine 01/02/2014 2 1:33 EDT MAGNESIUM Routine 01/02/2014 19:39 EDT CK MB WITH TOTAL CK Routine 01/02/2014 1 9:39 EDT ELECTROLYTES Routine 01/02/2014 19:39 EDT EKG 12-LEAD STAT 01/02/2014 19:10 EDT INPATIENT ADD-ON Routine 01/02/2014 15:4 5 EDT ECHOCARDIOGRAM Routine 01/02/2014 15:38 EDT LEFT HEART CATH Routine 01/02/2014 13:31 EDT HOLD BLUE TOP STAT 01/02/2014 12:14 EDT SCREENING GLUCOSE STAT 01/02/2014 12: 14 EDT PROFILE ED CARDIAC PACK STAT 01/03/20 14 12:14 EDT TROPONIN I STAT 01/02/2014 12:14 EDT DIFFERENTIAL STAT 01/02/2014 12:14 EDT PROTIME Routine 01/02/2014 12:14 EDT COMPLETE BLOOD COUNT STAT 01/02/2014 12:14 EDT BUN STAT 01/02/2014 12:14 EDT ALT Routine 01/02/2014 12:14 EDT AST Routine 01/02/2014 12:14 EDT ALKALINE PHOSPHATASE Routine 01/02/2014 12:14 EDT MAGNESIUM STAT 01/02/2014 12:14 EDT CREATININE STAT 01/02/2014 12:14 EDT CK MB WITH TOTAL CK STAT 01/02/2014 1 2:14 EDT ELECTROLYTES STAT 01/02/2014 12:14 EDT EKG 12-LEAD STAT 01/02/2014 11:54 EDT documented in this encounter Results * INVASIVE CARDIOLOGY REPORT-SCANNED (09/29/2015 9:35 EST) 09/29/2015 9:35 EST Scan 2 Media Relations Manager PROCEDURE/MINOR AMITA GICAL ORDERABLES * ECG REPORT - SCANNED (01/09/2014 14:28 EDT) 01/09/2014 14:2 8 EDT Scan 2 Media Relations Manager PROCEDURE/MINOR AMITA GICAL ORDERABLES * ECG REPORT - SCANNED (01/08/2014 13:09 EDT) 01/08/2014 13:0 9 EDT Scan 2 Media Relations Manager PROCEDURE/MINOR AMITA GICAL ORDERABLES * INVASIVE CARDIOLOGY REPORT-SCANNED (01/08/2014 13:09 EDT) 01/08/2014 13:0 9 EDT Scan 2 Media Relations Manager PROCEDURE/MINOR AMITA GICAL ORDERABLES * ECG REPORT - SCANNED (01/07/2014 15:11 EDT) 01/07/2014 15:1 1 EDT Scan 2 Media Relations Manager PROCEDURE/MINOR AMITA GICAL ORDERABLES * ECG REPORT - SCANNED (01/07/2014 15:11 EDT) 01/07/2014 15:1 1 EDT Scan 2 Media Relations Manager PROCEDURE/MINOR AMITA GICAL ORDERABLES * EKG 12-LEAD (01/03/2014 8:06 EDT) 01/03/2014 8:06 EDT Narrative [facility] - 01/06/2014 12:11 EDT ?[facility] ? Test Date: ?2014-01-03 Pat Name: ? JIMENEZ BARKLEY ? Department: ?? Nery [facility]ay ? Room: ? ME520 Gender: ? M ?Certified Wellness Program Coordinator: ?? [id number] : ?1955 ? Requested By: KENYONCASSIDY LANEMARY CRAFT Order Number: [id number] ? Reading : ?? WAYLON MUÑOZ MD ? Measurements Intervals ?Amite ? Rate: ? 60 ? P: ?-36 WA: ? 136 ?QRS: ?58 QRSD: ? 96 ? T: ?37 QT: ? 437 ? QTc: ?437 ? Interpretive Statements SINUS RHYTHM WITH SINUS ARRHYTHMIA Automated Interpretation. ??Physician Interpretation to follow. Compared to ECG 01/02/2014 19:10:46 Sinus arrhythmia now present I have reviewed the tracing and have either agreed or edited the findings in this report. Electronically Signed On 01-06-14 12:11:02 EDT by WAYLON MUÑOZ MD. Procedure Note Waylon Muñoz MD - 01/06/2014 [facility] Test Date: 2014-01-03 Pat Name: JIMENEZ BARKLEY Department: Nery Mackay Room: [facility] Gender: M Certified Wellness Program Coordinator: [id number] : 1955 Requested By: KENYON SULLIVAN MD Order Number: [id number] Reading MD: WAYLON MUÑOZ MD Measurements Intervals Amite Rate: 60 P: -36 WA: 136 QRS: 58 QRSD: 96 T: 37 QT: 437 QTc: 437 Interpretive Statements SINUS RHYTHM WITH SINUS ARRHYTHMIA Automated Interpretation. Physician Interpretation to follow. Compared to ECG 01/02/2014 19:10:46 Sinus arrhythmia now present I have reviewed the tracing and have either agreed or edited the findingsin this report. Electronically Signed On 01-06-14 12:11:02 EDT by VIR[place] CRAFT. Kenyon Sullivan MD CARDIAC ECG ORDERABL ES Performing Organization Address [facility] Co de Phone Number FA E[facility] * SMEAR REVIEW (01/03/2014 5:38 EDT) Smear scan only: Slide was examined by a technologist to verify the WBC and/or platelet count. [facility] 01/03/2014 5:38 EDT 01/03/2014 5:44 EDT Kenyon Sullivan MD HEMATOLOGY & PF4 ORD ERABLES Performing Organization Address [facility] Co de Phone Number [facility] [address] [place] [address] * CK MB WITH TOTAL CK (01/03/2014 5:38 EDT) CK 64 0 - 250 U/L [facility] MB 1.75 <4.21 ng/ml [facility] Blood specimen (specimen) 01/03/2014 5:38 EDT 01/03/2014 5:44 EDT Kenyon Sullivan MD CHEMISTRY & BLOOD GA S ORDERABLES Performing Organization Address [facility]/State/ZIP Co de Phone Number [facility] [address] [place] [address] * (ABNORMAL) ALT (01/03/2014 5:38 EDT) ALT 161(H) 21 - 72 U/L [facility] Blood specimen (specimen) 01/03/2014 5:38 EDT 01/03/2014 5:44 EDT Kenyon Sullivan MD CHEMISTRY & BLOOD GA S ORDERABLES Performing Organization Address [facility] Co de Phone Number [facility] [address] [place] [address] * (ABNORMAL) AST (01/03/2014 5:38 EDT) AST 118(H) 15 - 46 U/L [facility] Comment:Sample retested, res ult confirmed Blood specimen (specimen) 01/03/2014 5:38 EDT 01/03/2014 5:44 EDT Kenyon Sullivan MD CHEMISTRY & BLOOD GA S ORDERABLES Performing Organization Address [facility] de Phone Number [facility] [address] [place] [address] * LIPID PROFILE (INCLUDES CHOLESTEROL, TRIGLYCERIDES, HDL, LDL) (01/03/2014 5:38 EDT) Cholesterol 123 mg/dl [facility] Comment: Desirable:<200 Borderline High:200-239 High:>ac=847 Triglycerides 43 mg/dl [facility] Comment: Normal:<150 Borderline High:150-199 High:200-499 Very High:>ob=582 HDL 74 mg/dl [facility] Comment: Low:<40 Normal:40-60 Desirable: >60 LDL, Calculated 40 mg/dl [facility] Comment: Optimal:<100 Near Optimal:100-129 Borderline High:130-159 High:160-189 Very High:>an=827 Chol/HDL Ratio 1.7 [facility] Fasting? Unknown [facility] Non HDL Cholesterol 49 mg/dl [facility] Comment: Desirable:<130 Borderline:130-159 High: 160-189 Very High: >ln=208 Blood specimen (specimen) 01/03/2014 5:38 EDT 01/03/2014 5:44 EDT Kenyon Sullivan MD CHEMISTRY & BLOOD GA S ORDERABLES Performing Organization Address [facility] de Phone Number [facility] [address] [place] [address] * (ABNORMAL) CREATININE (01/03/2014 5:38 EDT) Creatinine 0.59(L) 0.66 - 1.25 mg/dl [facility] GFR, Calculated >60 >60 ml/min/1.7 3m2 [facility] Blood specimen (specimen) 01/03/2014 5:38 EDT 01/03/2014 5:44 EDT Kenyon Sullivan MD CHEMISTRY & BLOOD GA S ORDERABLES Performing Organization Address [facility] de Phone Number [facility] [address] [place] [address] * (ABNORMAL) BUN (01/03/2014 5:38 EDT) BUN 7(L) 10 - 26 mg/dl [facility] Blood specimen (specimen) 01/03/2014 5:38 EDT 01/03/2014 5:44 EDT Kenyon Sullivan MD CHEMISTRY & BLOOD GA S ORDERABLES Performing Organization Address [facility] de Phone Number [facility] [address] [place] [address] * ELECTROLYTES (01/03/2014 5:38 EDT) Sodium 136 136 - 145 mEq/L [facility] Potassium 4.4 3.5 - 5.0 mEq/L [facility] Chloride 101 96 - 110 mEq/L [facility] CO2 26 24 - 32 mEq/L [facility] Blood specimen (specimen) 01/03/2014 5:38 EDT 01/03/2014 5:44 EDT Kenyon Sullivan MD CHEMISTRY & BLOOD GA S ORDERABLES Performing Organization Address [facility]/ZIP Co de Phone Number [facility] [address] [place] [address] * (ABNORMAL) HEMAGRAM (01/03/2014 5:38 EDT) WBC 6.85 4.0 - 10.4 K/cmm [facility] RBC 4.21(L) 4.36 - 5.78 M/cmm [facility] Hemoglobin 13.6(L) 13.8 - 17.3 gm/dl [facility] HCT 39.6 39.5 - 50.2 % [facility] MCV 94 81 - 95 fl [facility] MCH 32.4 27.6 - 33.0 pg [facility] MCHC 34.5 32.8 - 36.4 gm/dl [facility] PLT 80(L) 141 - 320 K/cmm [facility] RDW-CV 14.1 11.8 - 14.1 % [facility] Blood specimen (specimen) 01/03/2014 5:38 EDT 01/03/2014 5:44 EDT Kenyon Sullivan MD HEMATOLOGY & PF4 ORD ERABLES Performing Organization Address [facility] Co de Phone Number [facility] [address] [place] [address] * CK MB WITH TOTAL CK (01/02/2014 21:33 EDT) CK 80 0 - 250 U/L [facility] MB 1.58 <4.21 ng/ml [facility] Blood specimen (specimen) 01/02/2014 21:33 EDT 01/02/2014 21:44 EDT Justus Lantigua MD CHEMISTRY & BLOOD GAS ORDERABLES Performing Organization Address City/[facility]/ZIP Co de Phone Number [facility] [address] [place] [address] * (ABNORMAL) TROPONIN I (01/02/2014 21:33 EDT) Pathologist [facility] Troponin I (ng/mL) 0.208(H) <0.034 ng/ml [facility] Blood specimen (specimen) 01/02/2014 21:33 EDT 01/02/2014 21:44 EDT Justus Lantigua MD CHEMISTRY & BLOOD GAS ORDERABLES Performing Organization Address [facility] de Phone Number [facility] [address] [place] [address] * MAGNESIUM (01/02/2014 19:39 EDT) [facility] Magnesium 1.8 1.7 - 2.8 mg/dl [facility] Blood specimen (specimen) 01/02/2014 19:39 EDT 01/02/2014 20:18 EDT Justus Lantigua MD CHEMISTRY & BLOOD GAS ORDERABLES Performing Organization Address [facility] de Phone Number [facility] [address] [place] [address] * (ABNORMAL) ELECTROLYTES (01/02/2014 19:39 EDT) [facility] Sodium 134(L) 136 - 145 mEq/L [facility] Potassium 4.0 3.5 - 5.0 mEq/L [facility] Chloride 102 96 - 110 mEq/L [facility] CO2 26 24 - 32 mEq/L [facility] Blood specimen (specimen) 01/02/2014 19:39 EDT 01/02/2014 20:18 EDT Justus Lantigua MD CHEMISTRY & BLOOD GAS ORDERABLES Performing Organization Address [facility] de Phone Number [facility] [address] [place] [address] * CK MB WITH TOTAL CK (01/02/2014 19:39 EDT) [facility] CK 85 0 - 250 U/L [facility] MB 1.43 <4.21 ng/ml [facility] Blood specimen (specimen) 01/02/2014 19:39 EDT 01/02/2014 20:18 EDT Justus Lantigua MD CHEMISTRY & BLOOD GAS ORDERABLES [facility] [address] [place] [address] * EKG 12-LEAD (01/02/2014 19:10 EDT) 01/02/2014 19:1 0 EDT Narrative [facility] EKG - 01/06/2014 23:52 EDT ?[facility] ? Test Date: ?2014-01-02 Pat Name: ? JIMENEZ BARKLEY ? Department: ?? Gabriel 5 ? Room: ? ME520 Gender: ? M ?Certified Wellness Program Coordinator: ?? [id number] : ?1955 ? Requested By: JUSTUS LANTIGUA MD Order Number: [id number] ? Reading : ?? CHICO POSEY MD ? Measurements Intervals ?Amite ? Rate: ? 68 ? P: ?50 WA: ? 159 ?QRS: ?57 QRSD: ? 92 ? T: ?37 QT: ? 416 ? QTc: ?443 ? Interpretive Statements SINUS RHYTHM MODERATE VOLTAGE CRITERIA FOR LVH, CONSIDER NORMAL VARIANT Anterior ST elevations, consider ischemai Compared to ECG 01/02/2014 11:54:40 Prolonged QT interval no longer present I have reviewed the tracing and have either agreed or edited the findings in this report. Electronically Signed On 01-06-14 23:52:08 EDT by CHICO POSEY MD. Procedure Note Chico Posey MD - 01/06/2014 [facility] Test Date: 2014-01-02 Pat Name: JIMENEZ BARKLEY Department: Nery [facility]ay Room: [facility] Gender: M Certified Wellness Program Coordinator: [id number] : 1955 Requested By: JUSTUS LANTIGUA MD Order Number: [id number] Reading MD: CHICO POSEY MD Measurements Intervals Amite Rate: 68 P: 50 WA: 159 QRS: 57 QRSD: 92 T: 37 QT: 416 QTc: 443 Interpretive Statements SINUS RHYTHM MODERATE VOLTAGE CRITERIA FOR LVH, CONSIDER NORMAL VARIANT Anterior ST elevations, consider ischemai Compared to ECG 01/02/2014 11:54:40 Prolonged QT interval no longer present I have reviewed the tracing and have either agreed or edited the findingsin this report. Electronically Signed On 01-06-14 23:52:08 EDT by CHICO BUI. Justus Lantigua MD CARDIAC ECG ORDERA BLES Performing Organization Address City/[facility] Co de Phone Number FA E[facility] * INPATIENT ADD-ON (01/02/2014 15:45 EDT) Tests to be added PLEASE ADD PROTIME, ALK PHOS, ALT, AST, SCREENING GLUCOSE TO PREVIOUS TESTING, THANK YOU [facility] Number for problems [id number] [facility] Accession number [id number], DUPLICATION OF GLS REQUEST WHICH IS ALREADY ON THIS ACCESSION [facility] 01/02/2014 15:4 5 EDT 01/02/2014 16:08 EDT Shane Cr MD HEMATOLOGY & PF4 ORD ERABLES Performing Organization Address [facility] Co de Phone Number [facility] [address] [place] [address] * ECHOCARDIOGRAM (01/02/2014 15:38 EDT) Anatomical Region Laterality Modality Other 01/02/2014 15:3 8 EDT Narrative 01/02/2014 16:44 EDT *Interpreting Group:* *[facility]* [address] [place] [address] *STUDY CONCLUSIONS* Summary: ?? Left ventricle: The cavity size was normal. Wall thickness was normal. Systolic function appeared to be mildly reduced. Wall motion was difficult to assess. There appeared to be septal and anteroseptal hypokinesis. ?? *PATIENT PRESENTATION* Height: ? 183cm (72in ) S/D Pressure: 150 / 72 Weight: ? 66kg (145.2lb ) BSA: ?1.82m^2 Test start time: ??02:45 PM. Test stop time: ??03:40 PM. ADMITTING ?Braydon Putnam MD ATTENDING ?Shane Cr MD REFERRING ?Reagan Foster PERFORMING ?? [facility], ORDERING ? Kenyon Sullivan REFERRING ?Kenyon Sullivan PHOTO EQUIPMENT TECHNICIAN ??Lucy Esposito *PROCEDURE DATA* Procedure information: ??This study was interpreted by [facility] at [facility]. ??Study status: ??Routine. Transthoracic echocardiography. ??M-mode, complete 2D, complete spectral Doppler, and color Doppler. A Transthoracic Echocardiogram was performed. The parasternal window was low, thus no M-mode measurements were recorded. Scanning was performed from the parasternal, apical, subcostal, and suprasternal notch acoustic windows. Images were obtained using a Carola IE33 1 cardiac ultrasound machine. Image quality was suboptimal. The study was technically limited due to restricted patient mobility. 2ml of Intravenous contrast (Definity) was administered by Lucy Esposito RN to enhance delineation of left ventricular endocardial borders. Prior to administration at least two (2) contiguous segments of the left ventricular border were not visualized. A total of 1 vial(s) of Definity was used. ??Study completion: ??The patient tolerated the procedure well. *INDICATIONS AND HISTORY* Indications: ?? Subendocardial infarction (410.71). *CARDIAC ANATOMY* Left ventricle: ??The cavity size was normal. Wall thickness was normal. Systolic function appeared to be mildly reduced. Wall motion was difficult to assess. There appeared to be septal and anteroseptal hypokinesis. Aortic valve: ??Poorly visualized. ??Doppler: ??Transvalvular velocity was within the normal range. There was no stenosis. ??No regurgitation. Aorta: ??Aortic root: The aortic root was normal in size. Mitral valve: ?? Structurally normal valve. ?? Mobility was not restricted. Doppler: ??Transvalvular velocity was within the normal range. There was no evidence for stenosis. ??No regurgitation. Left atrium: ??The atrium was normal in size. Right ventricle: ??The cavity size was normal. Systolic function was normal. Pulmonic valve: ?? Poorly visualized. Tricuspid valve: ?? Doppler: ??Transvalvular velocity was within the normal range. No regurgitation. Pulmonary artery: ?Systolic pressure could not be accurately estimated. Right atrium: ??The atrium was normal in size. Pericardium: ??There was no pericardial effusion. Systemic veins: Inferior vena cava: The vessel was normal in size; the respirophasic diameter changes were in the normal range (greater than or equal to 50%); findings are consistent with normal central venous pressure. *MEASUREMENT TABLES* 2D measurements ?Normal Left ventricle Area, ED, A4C ? *13.3 cm^2 ?? 17.7-47.3 Volume, ED, MOD, 1-plane ? 31 ml ? --------- Volume index, ED, MOD, 1-plane ? 17 ml/m^2 --------- Aorta Root diameter, ED ?32 mm ? --------- Left atrium Anterior-posterior dimension ? 28 mm ? --------- Anterior-posterior dimension index ? 1.54 cm/m^2 <2.2 Superior-inferior dimension, A4C ?*28 mm ? 29-53 ?? Doppler measurements ? Normal Left ventricle IVRT ? 92 ms ? 60-100 Ea, lateral annulus, tissue Doppler ?6.36 cm/s ?? --------- E/Ea, lateral annulus, tissue Doppler ?? 7.4 ?--------- Mitral valve Peak E-wave velocity ? 46.9 cm/s ?? --------- Peak A-wave velocity ? 64.2 cm/s ?? --------- Deceleration time ?*310 ms ? 150-230 Peak E/A ratio ?0.7 ?--------- Legend: Mean values are shown as u=mean value. Asterisk (*) faith values outside specified normal range. Electronically signed by Waylon Rutherford MD 01/02/2014 16:44 Procedure Note 01/02/2014 *Interpreting Group:* *[facility]* [address] [place] [address] *STUDY CONCLUSIONS* Summary: Left ventricle: The cavity size was normal. Wall thickness was normal. Systolic function appeared to be mildly reduced. Wall motion was difficult to assess. There appeared to be septal and anteroseptalhypokinesis. *PATIENT PRESENTATION* Height: 183cm (72in ) S/D Pressure: 150 / 72 Weight: 66kg (145.2lb ) BSA: 1.82m^2 Test start time: 02:45 PM. Test stop time: 03:40 PM. ADMITTING Braydon Putnam MD ATTENDING Shane Cr MD REFERRING Reagan Foster PERFORMING Fa, ORDERING Kenyon Sullivan REFERRING Kenyon Sullivan PHOTO EQUIPMENT TECHNICIAN Lucy Esposito *PROCEDURE DATA* Procedure information: This study was interpreted by [facility]. Study status: Routine.Transthoracic echocardiography. M-mode, complete 2D, complete spectral Doppler, andcolor Doppler. A Transthoracic Echocardiogram was performed. The parasternalwindow was low, thus no M-mode measurements were recorded. Scanning was performedfrom the parasternal, apical, subcostal, and suprasternal notch acousticwindows. Images were obtained using a Carola IE33 1 cardiac ultrasound machine.Image quality was suboptimal. The study was technically limited due torestricted patient mobility. 2ml of Intravenous contrast (Definity) was administeredby Lucy Esposito RN to enhance delineation of left ventricular endocardial borders. Prior to administration at least two (2) contiguous segments ofthe left ventricular border were not visualized. A total of 1 vial(s) ofDefinity was used. Study completion: The patient tolerated the procedure well. *INDICATIONS AND HISTORY* Indications: Subendocardial infarction (410.71). *CARDIAC ANATOMY* Left ventricle: The cavity size was normal. Wall thickness was normal.Systolic function appeared to be mildly reduced. Wall motion was difficult toassess. There appeared to be septal and anteroseptal hypokinesis. Aortic valve: Poorly visualized. Doppler: Transvalvular velocity waswithin the normal range. There was no stenosis. No regurgitation. Aorta: Aortic root: The aortic root was normal in size. Mitral valve: Structurally normal valve. Mobility was not restricted. Doppler: Transvalvular velocity was within the normal range. There was no evidence for stenosis. No regurgitation. Left atrium: The atrium was normal in size. Right ventricle: The cavity size was normal. Systolic function wasnormal. Pulmonic valve: Poorly visualized. Tricuspid valve: Doppler: Transvalvular velocity was within the normalrange. No regurgitation. Pulmonary artery: Systolic pressure could not be accurately estimated. Right atrium: The atrium was normal in size. Pericardium: There was no pericardial effusion. Systemic veins: Inferior vena cava: The vessel was normal in size; the respirophasicdiameter changes were in the normal range (greater than or equal to 50%); findingsare consistent with normal central venous pressure. *MEASUREMENT TABLES* 2D measurements Normal Left ventricle Area, ED, A4C *13.3 cm^2 17.7-47.3 Volume, ED, MOD, 1-plane 31 ml --------- Volume index, ED, MOD, 1-plane 17 ml/m^2 --------- Aorta Root diameter, ED 32 mm --------- Left atrium Anterior-posterior dimension 28 mm --------- Anterior-posterior dimension index 1.54 cm/m^2 <2.2 Superior-inferior dimension, A4C *28 mm 29-53 Doppler measurements Normal Left ventricle IVRT 92 ms 60-100 Ea, lateral annulus, tissue Doppler 6.36 cm/s --------- E/Ea, lateral annulus, tissue Doppler 7.4 --------- Mitral valve Peak E-wave velocity 46.9 cm/s --------- Peak A-wave velocity 64.2 cm/s --------- Deceleration time *310 ms 150-230 Peak E/A ratio 0.7 --------- Legend: Mean values are shown as u=mean value. Asterisk (*) faith values outside specified normal range. Electronically signed by Waylon Rutherford MD 01/02/2014 16:44 Kenyon Sullivan MD CARDIAC ECHO ORDERAB LES * LEFT HEART CATH (01/02/2014 13:31 EDT) Anatomical Region Laterality Modality Other 01/02/2014 13:3 1 EDT Narrative 01/02/2014 16:41 EDT Cardiology [address] [place] [id number] Catheterization Laboratory Study Patient: Jimenez Barkley ? Study Date: ?01/02/2014 ?Accession #: ? [id number] : ? 1955 Referring Physician: Reagan Foster Diagnostic Attending: ??Chico Posey Interventional Attending: ?? Chico Posey Interventional Fellow: Kenyon Sullivan ATTESTATION: Dr. Chico Posey was present and supervising for the entire procedure, I Dr. Kenyon Sullivan was the initial author of this report. I, Dr. Chico Posey have reviewed and agree with the findings of this report. PROCEDURE PLAN: Based on the diagnostic study percutaneous coronary intervention is indicated. RESEARCH STUDY: Patient is not enrolled in any research studies. IMPRESSIONS: 1. Study suggests severe single vessel coronary artery disease, probably due to ?? atherosclerosis. Residual at risk territory is large. 2. Non ST-elevated myocardial infarction (NSTEMI), probably due to coronary ?? artery disease, plaque rupture, or ongoing ischemia, affecting a large ?? regionin the territory of the left anterior descending coronary artery. The ?? culprit lesion was identified. SUMMARY: 1. HPI and indications: Zrx-DW-cwytjyfc myocardial infarction. 2. LAD: Mid-vessel lesion: There is a diffuse, 20mm (L), 80%stenosis. This ?? lesion is eccentric and a bifurcation lesion. There is a small filling defect ?? consistent with thrombus. There is MERVAT grade 3 flow (brisk flow) across the ?? lesion. The lesion is significant by visual estimate. The distal vessel ?? supplies a large vascular territory. The lesion is a likely culprit for the ?? patient's recent myocardial infarction and an ACC/AHA type C high risk ?? lesion for intervention. The lesion was stented (see 1st lesion ?? intervention), with balloon angioplasty. Following intervention, there is a ?? residual 0% stenosis with an excellent angiographic appearance and MERVAT grade ?? 3 flow (brisk flow). There were no site complications. Proximal vessel ?? lesion: There is a diffuse, 15mm (L), 80%stenosis. This lesion is eccentric ?? and not a bifurcation lesion. There is a small filling defect consistent with ?? thrombus. There is MERVAT grade 3 flow (brisk flow) across the lesion. The ?? lesion is significant by visual estimate. The distal vessel supplies a large ?? vascular territory. The lesion is a likely culprit for the patient's recent ?? myocardial infarction and an ACC/AHA type C high risk lesion for ?? intervention. The lesion was stented (see 2nd lesion intervention), with ?? balloon angioplasty. Following intervention, there is a residual 0% stenosis ?? with an excellent angiographic appearance and MERVAT grade 3 flow (brisk flow). ?? There were no site complications. RECOMMENDATIONS: 1. ACC recommendation: PCI w/o planned CABG. 2. Patient management should include aggressive medical therapy, risk factor ?? modification, counseling to assist with smoking cessation, avoidance of ?? alcohol, a cardiac rehabilitation program, and hemoglobin A1c monitoring. The ?? patient was counseled regarding the importance of adherence to the prescribed ?? antiplatelet therapy and a low fat diet. 3. Add aspirin, 81mgPOdaily. 4. Add clopidogrel (Plavix), 75mgPOdaily, for 1yr. 5. BMS were deployed, however NSTEMI Dx requires DAPT x1y. HISTORY: Zoi-XI-etegfpgp myocardial infarction. ??PMH: ?? Chronic lung disease. ??Functional status: ?? CCS class IV (angina at rest or with any physical activity). ??Risk factors: ??Current tobacco use. Hypertension. Dyslipidemia. ??Medications: Aspirin. ??Clopidogrel (Plavix). LABS, PRIOR TESTS, PROCEDURES AND SURGERY: Hematocrit of 42 %. ??Platelet count of 107 th/ul. ??Hemoglobin (pre-procedure) of 14 g/dl. STUDY DATA: Study status: ??Percutaneous coronary intervention: emergent. ??Patient status: Inpatient. ??Location: ??Catheterization laboratory. Sex: male. Patient is 58yr old. Height: 182.9cm. Weight: 65.7kg. BSA: 1.82m^2. Procedures performed: ?Right femoral artery access. ?Left coronary angiography. ?Right coronary angiography. ?Abdominal aortography. Lesion intervention: ?? Percutaneous intervention on the 80% stenosis in the mid LAD. ?Stent placement. ?Stent placement. ?Lesion intervention: Percutaneous intervention on the 80% stenosis in the proximal LAD. ?Stent placement. PROCEDURE: 1. Initial setup. The patient was brought to the laboratory in the fasting ?? state. A baseline ECG was recorded. Surface ECG leads, automatic cuff blood ?? pressure measurements, and pulse oximetric signals were monitored. 2. Skin preparation. The planned puncture sites were prepped with chlorhexidine ?? and draped in the usual sterile manner. 3. Right femoral artery access. A 6F [employer] Gray ACT Ultimum sheath was advanced ?? into the vessel. 4. Selective left coronary angiography. A 6fr Runway CLS3.5 catheter was ?? advanced into the left coronary vessel ostium under fluoroscopic guidance. ?? Contrast was injected by hand. Images were obtained in multiple projections. 5. Selective right coronary angiography. A 6F FR4 catheter was advanced into the ?? right coronary vessel ostium under fluoroscopic guidance. Contrast was ?? injected by hand. Images were obtained in multiple projections. 6. Abdominal aortography. A catheter was positioned in the abdominal aorta. ?? Contrast was injected by hand. 7. Right femoral artery hemostasis. 6 FR StarClose SE was used at the access ?? site. 1st lesion intervention: Percutaneous intervention on the 80% stenosis in the mid LAD. 1. Vessel setup was performed. A 6fr Runway CLS3.5 guiding catheter was advanced ?? into the vessel. 2. Vessel setup was performed. A 180 [employer] wire was used to cross the ?? lesion. 3. Stent placement. A 3mm (D) x 18mm (L), Vision RX stent was advanced across ?? the lesion and deployed with a single inflation and a maximum pressure of ?? 14atm. 4. Stent placement. A 3mm (D) x 18mm (L), Integrity BMS stent was advanced ?? across the lesion and deployed with two inflations and a maximum pressure of ?? 14atm. 2nd lesion intervention: Percutaneous intervention on the 80% stenosis in the proximal LAD. ??Stent placement. A 2.5mm (D) x 26mm (L), Integrity BMS stent was advanced across the lesion and deployed with a single inflation and a maximum pressure of 12atm. STUDY COMPLETION: The estimated blood loss was 10ml. All catheters inserted during the procedure were removed. The patient tolerated the procedure well and was discharged from the lab. There were no complications. ??Administered medications: ?? Heparin, infusion, infusion rate of 1,100units/hr. ??Bivalirudin BOLUS, 0.75mg/kg. Bivalirudin DRIP, infusion rate of 1.75mg/kg/hr. ??Diphenhydramine, 25mg. Nitroglycerin, 200mcg, into the coronary artery. ??Midazolam, for a total dose of 10mg. ??Fentanyl, for a total dose of 250mcg. ??Contrast: ?? Isovue 370 250ml (total dose). ??Fluoroscopy time: ??9.1min. ??Fluoroscopy dose: ??71cGy. CORONARY ARTERIES: The coronary circulation is left dominant. Left main: ??Minor luminal irregularities. LAD: ??Mid-vessel lesion: There is a diffuse, 20mm (L), 80%stenosis. This lesion is eccentric and a bifurcation lesion. There is a small filling defect consistent with thrombus. There is MERVAT grade 3 flow (brisk flow) across the lesion. The lesion is significant by visual estimate. The distal vessel supplies a large vascular territory. The lesion is a likely culprit for the patient's recent myocardial infarction and an ACC/AHA type C high risk lesion for intervention. The lesion was stented (see 1st lesion intervention), with balloon angioplasty. Following intervention, there is a residual 0% stenosis with an excellent angiographic appearance and MERVAT grade 3 flow (brisk flow). There were no site complications. ??Proximal vessel lesion: There is a diffuse, 15mm (L), 80%stenosis. This lesion is eccentric and not a bifurcation lesion. There is a small filling defect consistent with thrombus. There is MERVAT grade 3 flow (brisk flow) across the lesion. The lesion is significant by visual estimate. The distal vessel supplies a large vascular territory. The lesion is a likely culprit for the patient's recent myocardial infarction and an ACC/AHA type C high risk lesion for intervention. The lesion was stented (see 2nd lesion intervention), with balloon angioplasty. Following intervention, there is a residual 0% stenosis with an excellent angiographic appearance and MERVAT grade 3 flow (brisk flow). There were no site complications. Left circumflex: ??Minor luminal irregularities. Right coronary: ??Minor luminal irregularities. HEMODYNAMICS: + + + Stage description ? Condition1:Condition 1 - + + + Arterial pressure s/d (m) 131/67 (92) ? + + + * Electronically signed by Chico Posey MD 2014-01-02 16:41 Procedure Note 01/02/[address] [place] [id number] Catheterization Laboratory Study Patient: Jimenez Barkley Study Date:01/02/2014 : 1955 Referring Physician: Reagan Foster Diagnostic Attending: Chico Posey Interventional Attending: Chico Posey Interventional Fellow: Kenyon Sullivan ATTESTATION: Dr. Chico Posey was present and supervising for the entire procedure, IDr. Kenyon Sullivan was the initial author of this report. I, Dr. Chico Poseyhave reviewed and agree with the findings of this report. PROCEDURE PLAN: Based on the diagnostic study percutaneous coronary intervention isindicated. RESEARCH STUDY: Patient is not enrolled in any research studies. IMPRESSIONS: 1. Study suggests severe single vessel coronary artery disease, probablydue to atherosclerosis. Residual at risk territory is large. 2. Non ST-elevated myocardial infarction (NSTEMI), probably due tocoronary artery disease, plaque rupture, or ongoing ischemia, affecting a large regionin the territory of the left anterior descending coronary artery.The culprit lesion was identified. SUMMARY: 1. HPI and indications: Twz-CA-ytrnalgj myocardial infarction. 2. LAD: Mid-vessel lesion: There is a diffuse, 20mm (L), 80%stenosis. This lesion is eccentric and a bifurcation lesion. There is a small fillingdefect consistent with thrombus. There is MERVAT grade 3 flow (brisk flow)across the lesion. The lesion is significant by visual estimate. The distal vessel supplies a large vascular territory. The lesion is a likely culprit forthe patient's recent myocardial infarction and an ACC/AHA type C highrisk lesion for intervention. The lesion was stented (see 1st lesion intervention), with balloon angioplasty. Following intervention, thereis a residual 0% stenosis with an excellent angiographic appearance and TIMIgrade 3 flow (brisk flow). There were no site complications. Proximal vessel lesion: There is a diffuse, 15mm (L), 80%stenosis. This lesion iseccentric and not a bifurcation lesion. There is a small filling defectconsistent with thrombus. There is MERVAT grade 3 flow (brisk flow) across the lesion.The lesion is significant by visual estimate. The distal vessel supplies alarge vascular territory. The lesion is a likely culprit for the patient'srecent myocardial infarction and an ACC/AHA type C high risk lesion for intervention. The lesion was stented (see 2nd lesion intervention),with balloon angioplasty. Following intervention, there is a residual 0%stenosis with an excellent angiographic appearance and MERVAT grade 3 flow (briskflow). There were no site complications. RECOMMENDATIONS: 1. ACC recommendation: PCI w/o planned CABG. 2. Patient management should include aggressive medical therapy, riskfactor modification, counseling to assist with smoking cessation, avoidance of alcohol, a cardiac rehabilitation program, and hemoglobin [id number]. The patient was counseled regarding the importance of adherence to theprescribed antiplatelet therapy and a low fat diet. 3. Add aspirin, 81mgPOdaily. 4. Add clopidogrel (Plavix), 75mgPOdaily, for 1yr. 5. BMS were deployed, however NSTEMI Dx requires DAPT x1y. HISTORY: Ycb-BU-wclumfjk myocardial infarction. PMH: Chronic lung disease.Functional status: CCS class IV (angina at rest or with any physical activity).Risk factors: Current tobacco use. Hypertension. Dyslipidemia. Medications: Aspirin. Clopidogrel (Plavix). LABS, PRIOR TESTS, PROCEDURES AND SURGERY: Hematocrit of 42 %. Platelet count of 107 th/ul. Hemoglobin(pre-procedure) of 14 g/dl. STUDY DATA: Study status: Percutaneous coronary intervention: emergent. Patientstatus: Inpatient. Location: Catheterization laboratory. Sex: male. Patient is58yr old. Height: 182.9cm. Weight: 65.7kg. BSA: 1.82m^2. Procedures performed: Right femoral artery access. Left coronary angiography. Right coronary angiography. Abdominal aortography. Lesion intervention: Percutaneous intervention on the 80% stenosis inthe mid LAD. Stent placement. Stent placement. Lesionintervention: Percutaneous intervention on the 80% stenosis in the proximal LAD.Stent placement. PROCEDURE: 1. Initial setup. The patient was brought to the laboratory in the fasting state. A baseline ECG was recorded. Surface ECG leads, automatic cuffblood pressure measurements, and pulse oximetric signals were monitored. 2. Skin preparation. The planned puncture sites were prepped withchlorhexidine and draped in the usual sterile manner. 3. Right femoral artery access. A 6F St. Gray ACT Ultimum sheath wasadvanced into the vessel. 4. Selective left coronary angiography. A 6fr Runway CLS3.5 catheter was advanced into the left coronary vessel ostium under fluoroscopicguidance. Contrast was injected by hand. Images were obtained in multipleprojections. 5. Selective right coronary angiography. A 6F FR4 catheter was advancedinto the right coronary vessel ostium under fluoroscopic guidance. Contrast was injected by hand. Images were obtained in multiple projections. 6. Abdominal aortography. A catheter was positioned in the abdominalaorta. Contrast was injected by hand. 7. Right femoral artery hemostasis. 6 FR StarClose SE was used at theaccess site. 1st lesion intervention: Percutaneous intervention on the 80% stenosis in the mid LAD. 1. Vessel setup was performed. A 6fr Runway CLS3.5 guiding catheter wasadvanced into the vessel. 2. Vessel setup was performed. A 180 [employer] wire was used to crossthe lesion. 3. Stent placement. A 3mm (D) x 18mm (L), Vision RX stent was advancedacross the lesion and deployed with a single inflation and a maximum pressureof 14atm. 4. Stent placement. A 3mm (D) x 18mm (L), Integrity BMS stent was advanced across the lesion and deployed with two inflations and a maximumpressure of 14atm. 2nd lesion intervention: Percutaneous intervention on the 80% stenosis in the proximal LAD. Stent placement. A 2.5mm (D) x 26mm (L), Integrity BMS stent was advanced acrossthe lesion and deployed with a single inflation and a maximum pressure [id number]. STUDY COMPLETION: The estimated blood loss was 10ml. All catheters inserted during theprocedure were removed. The patient tolerated the procedure well and was dischargedfrom the lab. There were no complications. Administered medications:Heparin, infusion, infusion rate of 1,100units/hr. Bivalirudin BOLUS, 0.75mg/kg. Bivalirudin DRIP, infusion rate of 1.75mg/kg/hr. Diphenhydramine, 25mg. Nitroglycerin, 200mcg, into the coronary artery. Midazolam, for a totaldose of 10mg. Fentanyl, for a total dose of 250mcg. Contrast: Isovue 370 250ml (total dose). Fluoroscopy time: 9.1min. Fluoroscopy dose: 71cGy. CORONARY ARTERIES: The coronary circulation is left dominant. Left main: Minor luminal irregularities. LAD: Mid-vessel lesion: There is a diffuse, 20mm (L), 80%stenosis. Thislesion is eccentric and a bifurcation lesion. There is a small filling defect consistent with thrombus. There is MERVAT grade 3 flow (brisk flow) acrossthe lesion. The lesion is significant by visual estimate. The distal vesselsupplies a large vascular territory. The lesion is a likely culprit for thepatient's recent myocardial infarction and an ACC/AHA type C high risk lesion for intervention. The lesion was stented (see 1st lesion intervention), withballoon angioplasty. Following intervention, there is a residual 0% stenosis withan excellent angiographic appearance and MERVAT grade 3 flow (brisk flow).There were no site complications. Proximal vessel lesion: There is a diffuse, 15mm(L), 80%stenosis. This lesion is eccentric and not a bifurcation lesion. Thereis a small filling defect consistent with thrombus. There is MERVAT grade 3 flow(brisk flow) across the lesion. The lesion is significant by visual estimate. The distal vessel supplies a large vascular territory. The lesion is a likely culprit for the patient's recent myocardial infarction and an ACC/AHA typeC high risk lesion for intervention. The lesion was stented (see 2ndlesion intervention), with balloon angioplasty. Following intervention, there sam residual 0% stenosis with an excellent angiographic appearance and TIMIgrade 3 flow (brisk flow). There were no site complications. Left circumflex: Minor luminal irregularities. Right coronary: Minor luminal irregularities. HEMODYNAMICS: + + + Stage description Condition1:Condition 1 - + + + Arterial pressure s/d (m) 131/67 (92) + + + * Electronically signed by Chico Posey MD 2014-01-02 16:41 Mello Vee MD CARDIAC CATH ORDERAB LES * PROTIME (01/02/2014 12:14 EDT) Pro Time 11.8 9.5 - 13.1 secs [facility] I.N.R. 1.0 0.9 - 1.1 Ratio [facility] Comment: Moderate Intensity Coumadin INR = 2.0-3.0 Adjustments in anticoagulant therapy dose should be based upon the INR and NOT the Pro Time. 01/02/2014 12:1 4 EDT 01/02/2014 12:34 EDT Mary Ang MD HEMATOLOGY & PF4 ORD ERABLES Performing Organization Address City/[facility]/ZIP Co de Phone Number [facility] [address] [place] [address] * (ABNORMAL) AST (01/02/2014 12:14 EDT) AST 206(H) 15 - 46 U/L [facility] 01/02/2014 12:1 4 EDT 01/02/2014 12:34 EDT Mary Ang MD CHEMISTRY & BLOOD GA S ORDERABLES Performing Organization Address City/[facility]/ZIP Co de Phone Number [facility] [address] [place] [address] * (ABNORMAL) ALT (01/02/2014 12:14 EDT) ALT 203(H) 21 - 72 U/L [facility] 01/02/2014 12:1 4 EDT 01/02/2014 12:34 EDT Mary Ang MD CHEMISTRY & BLOOD GA S ORDERABLES Performing Organization Address [facility] Co de Phone Number [facility] [address] [place] [address] * ALKALINE PHOSPHATASE (01/02/2014 12:14 EDT) Total Alkaline Phosphatase 119 38 - 126 U/L [facility] 01/02/2014 12:1 4 EDT 01/02/2014 12:34 EDT Mary Ang MD CHEMISTRY & BLOOD GA S ORDERABLES Performing Organization Address [facility] de Phone Number [facility] [address] [place] [address] * MAGNESIUM (01/02/2014 12:14 EDT) Magnesium 1.9 1.7 - 2.8 mg/dl [facility] 01/02/2014 12:1 4 EDT 01/02/2014 12:34 EDT Mary Ang MD CHEMISTRY & BLOOD GA S ORDERABLES Performing Organization Address [facility] Phone Number [facility] [address] [place] [address] * SCREENING GLUCOSE (01/02/2014 12:14 EDT) Glucose, Screening 79 70 - 100 mg/dl [facility] 01/02/2014 12:1 4 EDT 01/02/2014 12:34 EDT Mary Ang MD CHEMISTRY & BLOOD GA S ORDERABLES Performing Organization Address [facility] Co de Phone Number [facility] [address] [place] [address] * (ABNORMAL) CREATININE (01/02/2014 12:14 EDT) Creatinine 0.64(L) 0.66 - 1.25 mg/dl [facility] GFR, Calculated >60 >60 ml/min/1.7 3m2 [facility] 01/02/2014 12:1 4 EDT 01/02/2014 12:34 EDT Mary Ang MD CHEMISTRY & BLOOD GA S ORDERABLES Performing Organization Address [facility] de Phone Number [facility] [address] [place] [address] * (ABNORMAL) BUN (01/02/2014 12:14 EDT) BUN 5(L) 10 - 26 mg/dl [facility] 01/02/2014 12:1 4 EDT 01/02/2014 12:34 EDT Mary Ang MD CHEMISTRY & BLOOD GA S ORDERABLES Performing Organization Address [facility] Phone Number [facility] [address] [place] [address] * (ABNORMAL) ELECTROLYTES (01/02/2014 12:14 EDT) Sodium 140 136 - 145 mEq/L [facility] Potassium 3.4(L) 3.5 - 5.0 mEq/L [facility] Chloride 102 96 - 110 mEq/L [facility] CO2 22(L) 24 - 32 mEq/L [facility] 01/02/2014 12:1 4 EDT 01/02/2014 12:34 EDT Mary Ang MD CHEMISTRY & BLOOD GA S ORDERABLES Performing Organization Address [facility] de Phone Number [facility] [address] [place] [address] * (ABNORMAL) TROPONIN I (01/02/2014 12:14 EDT) Troponin I (ng/mL) 0.040(H) <0.034 ng/ml [facility] 01/02/2014 12:1 4 EDT 01/02/2014 12:34 EDT Mary Ang MD CHEMISTRY & BLOOD GA S ORDERABLES Performing Organization Address [facility] Co de Phone Number [facility] [address] [place] [address] * CK MB WITH TOTAL CK (01/02/2014 12:14 EDT) CK 87 0 - 250 U/L [facility] MB 0.92 <4.21 ng/ml [facility] 01/02/2014 12:1 4 EDT 01/02/2014 12:34 EDT Mary Ang MD CHEMISTRY & BLOOD GA S ORDERABLES Performing Organization Address [facility] Co de Phone Number [facility] [address] [place] [address] * HOLD BLUE TOP (01/02/2014 12:14 EDT) Pathologist [facility] Hold Blue Top Sample for coagulation will be discarded after 4 hours [facility] 01/02/2014 12:1 4 EDT 01/02/2014 12:34 EDT Mary Ang MD LAB INFO SERVICE AND SUPPORT & PHONE RESULT Performing Organization Address [facility] Co de Phone Number [facility] [address] [place] [address] * (ABNORMAL) DIFFERENTIAL (01/02/2014 12:14 EDT) % Neutrophils 74.0 45.5 - 79.7 % [facility] % Lymphocytes 13.1(L) 15.0 - 46.8 % [facility] % Monocytes 8.3 1.8 - 12.0 % [facility] % Eosinophils 3.6 0.6 - 6.9 % [facility] % Basophils 1.0 0.2 - 1.4 % [facility] ABS Neutrophils 5.21 2.20 - 8.85 K/cmm [facility] ABS Lymphs 0.92(L) 1.09 - 3.30 K/cmm [facility] ABS Monocytes 0.59 0.1 - 0.8 K/cmm [facility] ABS Eosinophils 0.25 0.03 - 0.61 K/cmm [facility] ABS Basophils 0.07 0.01 - 0.11 K/cmm [facility] Type of Diff: Automated [facility] 01/02/2014 12:1 4 EDT 01/02/2014 12:34 EDT Mary Ang MD HEMATOLOGY & PF4 ORD ERABLES Performing Organization Address City/[facility] Co de Phone Number [facility] [address] [place] [address] * (ABNORMAL) HEMAGRAM (01/02/2014 12:14 EDT) WBC 7.03 4.0 - 10.4 K/cmm [facility] RBC 4.55 4.36 - 5.78 M/cmm [facility] Hemoglobin 14.7 13.8 - 17.3 gm/dl [facility] HCT 42.5 39.5 - 50.2 % [facility] MCV 93 81 - 95 fl [facility] MCH 32.3 27.6 - 33.0 pg [facility] MCHC 34.6 32.8 - 36.4 gm/dl [facility] PLT 107(L) 141 - 320 K/cmm [facility] RDW-CV 13.9 11.8 - 14.1 % [facility] 01/02/2014 12:1 4 EDT 01/02/2014 12:34 EDT Mary Ang MD HEMATOLOGY & PF4 ORD ERABLES Performing Organization Address City/[facility] Co de Phone Number [facility] [address] [place] [address] * EKG 12-LEAD (01/02/2014 11:54 EDT) 01/02/2014 11:5 4 EDT Narrative [facility] EKG - 01/05/2014 16:05 EDT ?[facility] ? Test Date: ?2014-01-02 Pat Name: ? JIMENEZ BARKLEY ? Department: ?? ED ? Room: ? AC02 Gender: ? M ?Certified Wellness Program Coordinator: ?? [id number] : ?1955 ? Requested By: SHANE CR MD Order Number: [id number] ?Reading MD: ?? ARIE LIRIANO MD ? Measurements Intervals ?Amite ? Rate: ? 69 ? P: ?77 WA: ? 168 ?QRS: ?64 QRSD: ? 97 ? T: ?71 QT: ? 470 ? QTc: ?506 ? Interpretive Statements TECHNICALLY POOR TRACING SINUS RHYTHM PROLONGED QT INTERVAL ST SEGMENT ELEVATION CONSISTENT WITH EARLY REPOLARIZATION OR PERICARDITIS Compared to ECG 11/13/2009 14:46:27 Prolonged QT interval now present I have reviewed the tracing and have either agreed or edited the findings in this report. Electronically Signed On 01-05-14 16:05:43 EDT by ARIE LIRIANO MD. Procedure Note Arie Liriano MD - 01/05/2014 [facility] Test Date: 2014-01-02 Pat Name: JIMENEZ BARKLEY Department: ED Room: [facility] Gender: M Certified Wellness Program Coordinator: [id number] : 1955 Requested By: SHANE CR MD Order Number: [id number] Reading MD: ARIE LIRIANO MD Measurements Intervals Amite Rate: 69 P: 77 WA: 168 QRS: 64 QRSD: 97 T: 71 QT: 470 QTc: 506 Interpretive Statements TECHNICALLY POOR TRACING SINUS RHYTHM PROLONGED QT INTERVAL ST SEGMENT ELEVATION CONSISTENT WITH EARLY REPOLARIZATION OR PERICARDITIS Compared to ECG 11/13/2009 14:46:27 Prolonged QT interval now present I have reviewed the tracing and have either agreed or edited the findingsin this report. Electronically Signed On 01-05-14 16:05:43 EDT by ARIE LIRIAON MD. Shane Cr MD CARDIAC ECG ORDERABL ES FA EKG documented in this encounter Visit Diagnoses Diagnosis NSTEMI (non-ST elevated myocardial infarction) (HCC-CMS)- Primary Acute myocardial infarction, subendocardial infarction, episode of care unspecified NSTEMI (non-ST elevated myocardial infarction) (HCC-CMS) Acute myocardial infarction, subendocardial infarction, episode of care unspecified documented in this encounter Administered Medications Inactive Administered Medications - up to 3 most recent administrations Medication Order MAR Action Action Date Dose Rate Site aspirin chewable tablet 81 mg 81 mg, oral, DAILY, First dose on Sun01/02/14 at 1415, Until Discontinued, STAT Given 01/03/2014 8:13 EDT 81 mg Given 01/02/2014 16:27 EDT 81 mg atorvastatin (LIPITOR) tablet 40 mg 40 mg, oral, DAILY, First dose on Sun01/02/14 at 1530, Until Discontinued, STAT Given 01/03/2014 8:13 EDT 40 mg Given 01/02/2014 16:28 EDT 40 mg baclofen (LIORESAL) tablet 20 mg 20 mg, oral, 2 TIMES DAILY, First dose on Sun01/02/14 at 2100, Until Discontinued, STAT Given 01/03/2014 8:13 EDT 20 mg Given 01/02/2014 20:21 EDT 20 mg clopidogrel (PLAVIX) tablet 600 mg 600 mg, oral, NOW X1, 1 dose, On Sun01/02/14 at 1230, STAT Given 01/02/2014 12:30 EDT 600 mg clopidogrel (PLAVIX) tablet 75 mg 75 mg, oral, DAILY, First dose on Sun01/03/14 at 0900, Until Discontinued, STAT Given 01/03/2014 8:13 EDT 75 mg fluticasone (FLOVENT HFA) 44 mcg/actuation inhaler 1 Puff 1 Puff, inhalation, 2 TIMES DAILY, First dose (after last modification) on Sun01/02/14 at 2100, Until Discontinued, STAT Given 01/03/2014 8:13 EDT 1 Puff Given 01/02/2014 20:21 EDT 1 Puff heparin in D5W 25,000 unit/250 mL(100 unit/mL) infusion 1,100 Units/hr (rounded to 11 mL/hr), intravenous, CONTINUOUS, Starting on Sun01/02/14 at 1215, Until Sun01/02/14 at 1410, STAT New Bag 01/02/2014 12:30 EDT 1,100 Units/hr 11 mL/hr lisinopril (PRINIVIL, ZESTRIL) tablet 10 mg 10 mg, oral, DAILY, First dose on Sun01/02/14 at 1530, Until Discontinued, STAT Given 01/03/2014 8:13 EDT 10 mg Given 01/02/2014 16:28 EDT 10 mg lisinopril (PRINIVIL, ZESTRIL) tablet 20 mg 20 mg, oral, Once (Without Time Specified), 1 dose, Starting on Sun01/03/14 at 1132, Until 01/03/14 at 1157, Routine Given 01/03/2014 11:57 EDT 20 mg LORazepam (ATIVAN) injection 1-2 mg 1-2 mg, intravenous, EVERY 1 HOUR PRN, Starting on Sun01/02/14 at 1506, Until 01/03/14 at 1608, Withdrawal, STAT Given 01/02/2014 20:22 EDT 1 mg metoprolol (LOPRESSOR) tablet 25 mg 25 mg, oral, 2 TIMES DAILY, First dose on Sun01/02/14 at 2100, Until Discontinued, STAT Given 01/02/2014 20:21 EDT 25 m g metoprolol XL (TOPROL-XL) tablet 75 mg 75 mg, oral, DAILY, First dose on Sun01/03/14 at 0900, Until Discontinued, Routine Given 01/03/2014 8:13 EDT 75 mg morphine injection 2-4 mg 2-4 mg, intravenous, EVERY 5 MIN PRN, Starting on Sun01/02/14 at 1506, Until 01/03/14 at 1608, Pain, STAT Given 01/03/2014 3:15 EDT 2 mg Given 01/02/2014 23:41 EDT 2 mg Given 01/02/2014 19:12 EDT 2 mg pantoprazole (PROTONIX) tablet 40 mg 40 mg, oral, DAILY, First dose on Sun01/02/14 at 1415, Until Discontinued, STAT Given 01/03/2014 8:13 EDT 40 mg Given 01/02/2014 16:27 EDT 40 mg potassium chloride SA (K-DUR, KLOR-CON M20) tablet 40 mEq 40 mEq, oral, NOW X1, 1 dose, On Sun01/02/14 at 1845, Routine Given 01/02/2014 19:04 EDT 40 mEq sodium chloride 0.9 % (NS) infusion at 75 mL/hr, intravenous, CONTINUOUS, Starting on Sun01/02/14 at 1415, Until 01/03/14 at 1608, STAT Rate Documented 01/02/2014 23:40 EDT 75 mL/hr New Bag 01/02/2014 16:27 EDT 75 mL/hr sodium chloride 0.9 % 1,000 mL with magnesium sulfate 1 g, thiamine 100 mg, folic acid 1 mg infusion 100 mL/hr, intravenous, Administer over 4 Hours, CONTINUOUS, Starting on Sun01/02/14 at 1530, Until 01/03/14 at 0205 New Bag 01/02/2014 16:06 EDT 100 mL/hr 100 mL/hr sodium chloride 0.9 % flush 3 mL 3 mL, intravenous, EVERY 8 HOURS, First dose on Sun01/02/14 at 1600, Until Discontinued, STAT Given 01/03/2014 8:05 EDT 3 mL Given 01/03/2014 0:00 EDT 3 mL Given 01/02/2014 16:22 EDT 3 mL documented in this encounter Discontinued Medications Medication Sig Discontinue Reason Start Date End Da te simvastatin (ZOCOR) 40 mg tablet Take 1 Tab by mouth daily. 11/14/2009 01/03/2014 metoprolol (LOPRESSOR) 25 mg tablet Take 1 Tab by mouth 2 times daily. 11/14/2009 01/03/2014 aspirin 325 mg tablet Take 1 Tab by mouth daily. 11/14/2009 01/03/2014 lithium (LITHOBID) 300 mg CR tablet Take 600 mg by mouth at bedtime. 01/03/2014 lithium (LITHOBID) 300 mg CR tablet Take 300 mg by mouth daily. 01/03/2014 lisinopril (PRINIVIL, ZESTRIL) 10 mg tablet Take 10 mg by mouth daily. 01/03/2014 documented as of this encounter Active and Recently Administered Medications Times are shown in EDT. Scheduled Medication Order 01/01/2014 01/02/2014 01/03/2014 aspirin chewable tablet 81 mg 81 mg, oral, DAILY, First dose on Sun01/02/14 at 1415, Until Discontinued, STAT 1627 (Given - Provider: Shakira Camarena RN) 0813 (Given - Provider: Marito Nair) atorvastatin (LIPITOR) tablet 40 mg 40 mg, oral, DAILY, First dose on Sun01/02/14 at 1530, Until Discontinued, STAT 1628 (Given - Provider: Shakira Camarena RN) 0813 (Given - Provider: Marito Nair) baclofen (LIORESAL) tablet 20 mg (CANCELED) 20 mg, oral, 2 TIMES DAILY, First dose on Sun01/02/14 at 2100, Until Discontinued, STAT 2020 (Given - Provider: Shakira Camarena RN) 0813 (Given - Provider: Marito Nair) clopidogrel (PLAVIX) tablet 600 mg (COMPLETED) 600 mg, oral, NOW X1, 1 dose, On Sun01/02/14 at 1230, STAT 1230 (Given - Provider: Buffy Jesus RN) clopidogrel (PLAVIX) tablet 75 mg 75 mg, oral, DAILY, First dose on Sun01/03/14 at 0900, Until Discontinued, STAT 08 (Given - Provid er: Marito Nair) fluticasone (FLOVENT HFA) 44 mcg/actuation inhaler 1 Puff (CANCELED) 1 Puff, inhalation, 2 TIMES DAILY, First dose (after last modification) on Sun01/02/14 at 2100, Until Discontinued, STAT 2020 (Given - Provider: Shakira Camarena RN) 0813 (Given - Provider: Marito Nair) lisinopril (PRINIVIL, ZESTRIL) tablet 10 mg (CANCELED) 10 mg, oral, DAILY, First dose on Sun01/02/14 at 1530, Until Discontinued, STAT 1628 (Given - Provider: Shakira Camarena RN) 0813 (Given - Provider: Marito Nair) lisinopril (PRINIVIL, ZESTRIL) tablet 20 mg 20 mg, oral, Once (Without Time Specified), 1 dose, Starting on 01/03/14 at 1132, Until 01/03/14 at 1157, Routine 1157 (Given - Provid er: Marito Nair) metoprolol (LOPRESSOR) tablet 25 mg (CANCELED) 25 mg, oral, 2 TIMES DAILY, First dose on Sun01/02/14 at 2100, Until Discontinued, STAT 2020 (Given - Provider: Shakira Camarena RN) metoprolol XL (TOPROL-XL) tablet 75 mg 75 mg, oral, DAILY, First dose on Sun01/03/14 at 0900, Until Discontinued, Routine 0813 (Given - Provid er: Marito Nair) pantoprazole (PROTONIX) tablet 40 mg (CANCELED) 40 mg, oral, DAILY, First dose on Sun01/02/14 at 1415, Until Discontinued, STAT 1627 (Given - Provider: Shakira Camarena RN) 0813 (Given - Provider: Marito Nair) potassium chloride SA (K-DUR, KLOR-CON M20) tablet 40 mEq (COMPLETED) 40 mEq, oral, NOW X1, 1 dose, On Sun01/02/14 at 1845, Routine 1904 (Given - Provider: Shakira Camarena RN) sodium chloride 0.9 % flush 3 mL (CANCELED) 3 mL, intravenous, EVERY 8 HOURS, First dose on Sun01/02/14 at 1600, Until Discontinued, STAT 1622 (Given - Provider: Shakira Camarena RN) 0000 (Given - Provider: Rajat Perry RN)0805 (Given - Provider: Marito Nair - Comment: NS infusing) Continuous Medication Order 01/01/2014 01/02/2014 01/03/2014 heparin in D5W 25,000 unit/250 mL(100 unit/mL) infusion (CANCELED) 1,100 Units/hr (rounded to 11 mL/hr), intravenous, CONTINUOUS, Starting on Sun01/02/14 at 1215, Until Sun01/02/14 at 1410, STAT 1230 (New Bag - Provider: Buffy Jesus RN) sodium chloride 0.9 % (NS) infusion (CANCELED) at 75 mL/hr, intravenous, CONTINUOUS, Starting on Sun01/02/14 at 1415, Until 01/03/14 at 1608, STAT 1627 (New Bag - Provider: Shakira Camarena RN)2340 (Rate Documented - Provider: Rajat Perry RN) 1000 (Completed - Provider: Marito Nair - Comment: Pt oral intake adequate.) sodium chloride 0.9 % 1,000 mL with magnesium sulfate 1 g, thiamine 100 mg, folic acid 1 mg infusion () 100 mL/hr, intravenous, Administer over 4 Hours, CONTINUOUS, Starting on Sun01/02/14 at 1530, Until 01/03/14 at 0205 1606 (New Bag - Provider: Shakira Camarena, RN) PRN Medication Order 01/01/2014 01/02/2014 01/03/2014 LORazepam (ATIVAN) injection 1-2 mg (CANCELED) 1-2 mg, intravenous, EVERY 1 HOUR PRN, Starting on Sun01/02/14 at 1506, Until 01/03/14 at 1608, Withdrawal, STAT 2021 (Given - Provider: Shakira Camarena, RN) morphine injection 2-4 mg (CANCELED) 2-4 mg, intravenous, EVERY 5 MIN PRN, Starting on Sun01/02/14 at 1506, Until 01/03/14 at 1608, Pain, STAT 191 (Given - Provider: Shakira Camarena RN)2341 (Given - Provider: Rajat Perry, NING) 0315 (Given - Provider: Rajat Perry RN) documented in this encounter Orders Medications Ordered That Scott ht Not Have Been Administered Count Last Ordered Date First Ordered Date acetaminophen (TYLENOL) tablet 650 mg 1 albuterol (VENTOLIN HFA) inhaler 2 Puff 3 0 01/02/2014 fluticasone (FLOVENT HFA) 44 mcg/actuation inhaler 1 Puff 1 01/02/2014 lidocaine-EPINEPHrine 2 %-1: 100,000 injection 5-10 mL 1 01/02/2014 nitroGLYCERIN (NITROSTAT) SL tablet 0.4 mg 1 01/02/2014 Diet Count Last Ordered Date First Orde red Date DISCHARGE DIET 1 01/02/2014 Nursing Count Last Ordered Date First Orde red Date ACTIVITY INSTRUCTIONS 3 01/02/2014 BATHING INSTRUCTIONS 1 01/02/2014 VTE PHARMACOLOGIC PROPHYLAXI S CURRENTLY ORDERED OR ON ALTERNATIVE THER 2 01/02/2014 WOUND CARE INSTRUCTIONS 2 01/02/2014 Admission Count Last Ordered Date First Orde red Date STATUS: ED REQUEST FOR INPATIENT BED 1 12/16 STATUS: INPATIENT ACUTE ADMISSION 1 014 Transfer Count Last Ordered Date First Orde red Date NOTIFY PPS OF DISCHARGE COMPLETE 1 01/04/20 14 PPS NOTIFICATION OF PATIENT ARRIVAL ON UNIT 1 01/02/2014 Discharge Count Last Ordered Date First Orde red Date DISCHARGE PATIENT 1 01/03/2014 Legal Count Last Ordered Date First Orde red Date MISCELLANEOUS DISCHARGE INSTRUCTIONS 6 12/16 documented in this encounter Care Teams Ged Teacher Relationship Specialty [place] [address] [place] [address] PCP - General 07/15/12 01/02/14 Sai Garg MD [address] [place] [id number] PCP - General 01/03/14 11/11/14 documented as of this encounter
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
--- OUTSIDE RECORDS SUMMARY | 2024-04-16 13:59 | XMS_ITS | Encounter Summary ---
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 Pt. Outside to smoke x 2. No issues. * Plan of Care - Yanique Louis RN - 11/13/2009 1651 EST Problem: HOSPITAL ORIENTATION/SAFETY Goal: Oriented To Hospital Environment Intervention: Review No Smoking policy - Patient and visitor D: Admission database completed. RN explained this is a non-smoking campus. Pt verbalized understanding. RN smelled smoke near pt's room. Pt was in bathroom at this time. A: RN questioned pt about smoking. He denied smoking and refused having cigarettes. Smoke was clearly coming from pt's bathroom. R: RN smelled smoke a second time and called security. They came to see pt. Pt voluntarily gave security his tobacco, but refused to give them his paper (pt wraps his own cigarettes). RN will call security if this continues. * Pharmacy Note - Raffaele Stewart RPH - 11/13/2009 1454 EST Patient's own medications Patient had 9 labelled medication bottles - many of which contained 2 different looking medications- therefore all medications were identified. Medications included citalopram, ranitidine, levothyroxine, amitriptyline, lisinopril, simvastatin,lithium and baclofen All tablets were in correctly labelled bottles EXCEPT Mirtazapine (Remeron) 30 mg and ranitidine were found in ranitidine 150 mg labelled bottle All medications stored in main pharmacy ( Du 4) documented in this encounter Plan of Treatment Not on file documented as of this encounter Procedures Procedure Name Priority Date/Time Associated Diagnosis Comments ECG REPORT - SCANNED 11/23/2009 13:42 EST ECG REPORT - SCANNED 11/16/2009 12:57 EST HOLD GREEN TOP Routine 11/14/2009 5:51 EST PROTIME Routine 11/14/2009 5:51 EST COMPLETE BLOOD COUNT Routine 11/14/2009 5:51 EST BUN Routine 11/14/2009 5:51 EST TSH Routine 11/14/2009 5:51 EST CREATININE Routine 11/14/2009 5:51 EST LIPID PROFILE (INCLUDES CHOLESTEROL, TRIGLYCERIDES, HDL, LDL) Routine 11/14/2009 5:51 EST ELECTROLYTES Routine 11/14/2009 5:51 EST TROPONIN I Routine 11/13/2009 22:00 EST CK MB WITH TOTAL CK Routine 11/13/2009 2 2:00 EST INPATIENT ADD-ON Routine 11/13/2009 18:0 5 EST TROPONIN I Routine 11/13/2009 17:45 EST PTT STAT 11/13/2009 17:45 EST PROTIME Routine 11/13/2009 17:45 EST CK MB WITH TOTAL CK Routine 11/13/2009 1 7:45 EST INPATIENT ADD-ON Routine 11/13/2009 17:0 5 EST TROPONIN I STAT 11/13/2009 14:49 EST COMPLETE BLOOD COUNT AND DIFFERENTIAL STAT 11/13/2009 14:49 EST BUN STAT 11/13/2009 14:49 EST ALT STAT 11/13/2009 14:49 EST AST STAT 11/13/2009 14:49 EST TSH Routine 11/13/2009 14:49 EST ALKALINE PHOSPHATASE STAT 11/13/2009 14:49 EST CREATININE STAT 11/13/2009 14:49 EST CK MB WITH TOTAL CK STAT 11/13/2009 1 4:49 EST ELECTROLYTES STAT 11/13/2009 14:49 EST EKG 12-LEAD Routine 11/13/2009 14:19 EST documented in this encounter Results * ECG REPORT - SCANNED (11/23/2009 13:42 EST) 11/23/2009 13:4 2 EST Narrative 11/24/2009 0:54 EST Ordered by an unspecified provider. Transcriptions Inpatient, Physician - 11/23/2009 13:42 EST Physician Inpatient MD PROCEDURE/MINOR S URGICAL ORDERABLES * ECG REPORT - SCANNED (11/16/2009 12:57 EST) 11/16/2009 12:5 7 EST Narrative Procedure Note Inpatient, Physician - 11/16/2009 12:57 EST Physician Inpatient MD PROCEDURE/MINOR S URGICAL ORDERABLES * HOLD GREEN TOP (11/14/2009 5:51 EST) Hold Green Top Hold for further testing. Specimen will be held for 5 days. [facility] 11/14/2009 5:51 EST 11/14/2009 6:40 EST Dominic Araujo MD LAB INFO SERVICE AND SUPPORT & PHONE RESULT Performing Organization Address City/[facility] Co de Phone Number [facility] [address] [place] [address] * CREATININE (11/14/2009 5:51 EST) Creatinine 1.16 0.7 - 1.5 mg/dl [facility] GFR, Calculated >60 ml/min/1.7 3m2 [facility] Blood specimen (specimen) 11/14/2009 5:51 EST 11/14/2009 6:40 EST Dominic Araujo MD CHEMISTRY & BLOOD GA S ORDERABLES Performing Organization Address [facility] Co de Phone Number [facility] [address] [place] [address] * BUN (11/14/2009 5:51 EST) BUN 21 10 - 26 mg/dl [facility] Blood specimen (specimen) 11/14/2009 5:51 EST 11/14/2009 6:40 EST Dominic Araujo MD CHEMISTRY & BLOOD GA S ORDERABLES Performing Organization Address [facility] Co de Phone Number [facility] [address] [place] [address] * (ABNORMAL) ELECTROLYTES (11/14/2009 5:51 EST) Sodium 139 136 - 145 mEq/L [facility] Potassium 4.8 3.5 - 5.0 mEq/L [facility] Chloride 110 96 - 110 mEq/L [facility] CO2 23(L) 24 - 32 mEq/L [facility] Blood specimen (specimen) 11/14/2009 5:51 EST 11/14/2009 6:40 EST Dominic Araujo MD CHEMISTRY & BLOOD GA S ORDERABLES Performing Organization Address [facility] de Phone Number [facility] [address] [place] [address] * HEMAGRAM (11/14/2009 5:51 EST) WBC 9.05 4.0 - 10.4 K/cmm [facility] RBC 4.69 4.36 - 5.78 M/cmm [facility] Hemoglobin 14.2 13.8 - 17.3 gm/dl [facility] HCT 42.3 39.5 - 50.2 % [facility] MCV 90 81 - 95 fl [facility] MCH 30.2 27.6 - 33.0 pg [facility] MCHC 33.5 32.8 - 36.4 gm/dl [facility] PLT 168 141 - 320 K/cmm [facility] RDW-CV 14.0 11.8 - 14.1 % [facility] Blood specimen (specimen) 11/14/2009 5:51 EST 11/14/2009 6:40 EST Dominic Araujo MD HEMATOLOGY & PF4 ORD ERABLES Performing Organization Address [facility] Co de Phone Number [facility] [address] [place] [address] * TSH (11/14/2009 5:51 EST) TSH 1.77 0.35 - 5.00 uIU/ml [facility] Blood specimen (specimen) 11/14/2009 5:51 EST 11/14/2009 6:40 EST Dominic Araujo MD CHEMISTRY & BLOOD GA S ORDERABLES Performing Organization Address [facility] de Phone Number [facility] [address] [place] [address] * LIPID PROFILE (INCLUDES CHOLESTEROL, TRIGLYCERIDES, HDL, LDL) (11/14/2009 5:51 EST) Cholesterol 183 mg/dl [facility] Comment: Desirable:<200 Borderline High:200-239 High:>gs=679 Triglycerides 156 35 - 160 mg/dl [facility] HDL 40 mg/dl [facility] Comment: Low:<40 High(Desirable):>or=60 LDL, Calculated 112 mg/dl [facility] Comment: Optimal:<100 Above optimal:100-129 Borderline High:130-159 High:160-189 Very High:>mb=395 Chol/HDL Ratio 4.6 [facility] Fasting? Unknown [facility] Blood specimen (specimen) 11/14/2009 5:51 EST 11/14/2009 6:40 EST Dominic Araujo MD CHEMISTRY & BLOOD GA S ORDERABLES Performing Organization Address [facility] de Phone Number [facility] [address] [place] [address] * PROTIME (11/14/2009 5:51 EST) Pro Time 12.9 12.2 - 15.5 secs [facility] Comment:Note new prothrombin time reference range effective 09 I.N.R. 0.9 0.9 - 1.1 Ratio [facility] Comment: Moderate Intensity Coumadin INR = 2.0-3.0 Adjustments in anticoagulant therapy dose should be based upon the INR and NOT the Pro Time. Blood specimen (specimen) 11/14/2009 5:51 EST 11/14/2009 6:40 EST Dominic Araujo MD HEMATOLOGY & PF4 ORD ERABLES Performing Organization Address [facility] Co de Phone Number [facility] [address] [place] [address] * CK MB WITH TOTAL CK (11/13/2009 22:00 EST) CK 27 0 - 250 U/L [facility] MB 0.8 0 - 5.0 ng/ml [facility] CK-MB Index Not calculated , normal MB. 0 - 2.5 [facility] Blood specimen (specimen) 11/13/2009 22:00 EST 11/13/2009 22:13 EST Dominic Araujo MD CHEMISTRY & BLOOD GA S ORDERABLES Performing Organization Address [facility] de Phone Number [facility] [address] [place] [address] * TROPONIN I (11/13/2009 22:00 EST) Troponin I pre 2012 <0.05 <0.81 ng/ml [facility] Comment: Reference Range: Normal: ??Less than 0.05 Indeterminate: ??0.05-0.80 Positive: ??Greater than 0.80 Blood specimen (specimen) 11/13/2009 22:00 EST 11/13/2009 22:13 EST Dominic Araujo MD CHEMISTRY & BLOOD GA S ORDERABLES Performing Organization Address [facility] Co de Phone Number [facility] [address] [place] [address] * INPATIENT ADD-ON (11/13/2009 18:05 EST) Tests to be added Protime [facility] Accession number Done [facility] 11/13/2009 18:0 5 EST 11/13/2009 18:14 EST Dustin Sumner MD HEMATOLOGY & PF4 ORD ERABLES Performing Organization Address [facility] Co de Phone Number [facility] [address] [place] [address] * PROTIME (11/13/2009 17:45 EST) Pro Time 12.9 12.2 - 15.5 secs [facility] Comment:Note new prothrombin time reference range effective 09 I.N.R. 0.9 0.9 - 1.1 Ratio [facility] Comment: Moderate Intensity Coumadin INR = 2.0-3.0 Adjustments in anticoagulant therapy dose should be based upon the INR and NOT the Pro Time. 11/13/2009 17:4 5 EST 11/13/2009 17:58 EST Dominic Araujo MD HEMATOLOGY & PF4 ORD ERABLES Performing Organization Address [facility] de Phone Number [facility] [address] [place] [address] * (ABNORMAL) PTT (11/13/2009 17:45 EST) PTT 52(H) 20 - 35 secs [facility] Comment:Therapeutic Heparin range: 60-100 seconds Blood specimen (specimen) 11/13/2009 17:45 EST 11/13/2009 17:58 EST Dustin Sumner MD HEMATOLOGY & PF4 ORD ERABLES Performing Organization Address [facility] de Phone Number [facility] [address] [place] [address] * CK MB WITH TOTAL CK (11/13/2009 17:45 EST) CK 28 0 - 250 U/L [facility] MB 0.8 0 - 5.0 ng/ml [facility] CK-MB Index Not calculated , normal MB. 0 - 2.5 [facility] Blood specimen (specimen) 11/13/2009 17:45 EST 11/13/2009 17:58 EST Dominic Araujo MD CHEMISTRY & BLOOD GA S ORDERABLES Performing Organization Address [facility] Co de Phone Number [facility] [address] [place] [address] * TROPONIN I (11/13/2009 17:45 EST) Pathologist [facility] Troponin I pre 2011 <0.05 <0.81 ng/ml [facility] Comment: Reference Range: Normal: ??Less than 0.05 Indeterminate: ??0.05-0.80 Positive: ??Greater than 0.80 Blood specimen (specimen) 11/13/2009 17:45 EST 11/13/2009 17:58 EST Dominic Araujo MD CHEMISTRY & BLOOD GA S ORDERABLES Performing Organization Address [facility] Co de Phone Number [facility] [address] [place] [address] * INPATIENT ADD-ON (11/13/2009 17:05 EST) Pathologist [facility] Tests to be added tsh [facility] Number for problems [id number] [facility] Accession number [id number] [facility] 11/13/2009 17:0 5 EST 11/13/2009 17:54 EST Dominic Araujo MD HEMATOLOGY & PF4 ORD ERABLES Performing Organization Address [facility] de Phone Number [facility] [address] [place] [address] * TSH (11/13/2009 14:49 EST) Pathologist [facility] TSH 3.76 0.35 - 5.00 uIU/ml [facility] 11/13/2009 14:4 9 EST 11/13/2009 15:07 EST Dominic Araujo MD CHEMISTRY & BLOOD GA S ORDERABLES Performing Organization Address [facility] Co de Phone Number [facility] [address] [place] [address] * ALKALINE PHOSPHATASE (11/13/2009 14:49 EST) Pathologist [facility] Total Alkaline Phosphatase 74 38 - 126 U/L [facility] Blood specimen (specimen) 11/13/2009 14:49 EST 11/13/2009 15:07 EST Dominic Araujo MD CHEMISTRY & BLOOD GA S ORDERABLES Performing Organization Address City/[facility] Co de Phone Number [facility] [address] [place] [address] * AST (11/13/2009 14:49 EST) AST 29 15 - 46 U/L [facility] Blood specimen (specimen) 11/13/2009 14:49 EST 11/13/2009 15:07 EST Dominic Araujo MD CHEMISTRY & BLOOD GA S ORDERABLES Performing Organization Address [facility] Co de Phone Number [facility] [address] [place] [address] * ALT (11/13/2009 14:49 EST) ALT 47 21 - 72 U/L [facility] Blood specimen (specimen) 11/13/2009 14:49 EST 11/13/2009 15:07 EST Dominic Araujo MD CHEMISTRY & BLOOD GA S ORDERABLES Performing Organization Address [facility] de Phone Number [facility] [address] [place] [address] * TROPONIN I (11/13/2009 14:49 EST) Troponin I pre 2011 <0.05 <0.81 ng/ml [facility] Comment: Reference Range: Normal: ??Less than 0.05 Indeterminate: ??0.05-0.80 Positive: ??Greater than 0.80 Blood specimen (specimen) 11/13/2009 14:49 EST 11/13/2009 15:07 EST Dominic Araujo MD CHEMISTRY & BLOOD GA S ORDERABLES Performing Organization Address City/[facility]/ZIP Co de Phone Number [facility] [address] [place] [address] * CK MB WITH TOTAL CK (11/13/2009 14:49 EST) CK 26 0 - 250 U/L [facility] MB 0.6 0 - 5.0 ng/ml [facility] CK-MB Index Not calculated , normal MB. 0 - 2.5 [facility] Blood specimen (specimen) 11/13/2009 14:49 EST 11/13/2009 15:07 EST Dominic Araujo MD CHEMISTRY & BLOOD GA S ORDERABLES Performing Organization Address [facility] Co de Phone Number [facility] [address] [place] [address] * CREATININE (11/13/2009 14:49 EST) Creatinine 1.10 0.7 - 1.5 mg/dl [facility] GFR, Calculated >60 ml/min/1.7 3m2 [facility] Blood specimen (specimen) 11/13/2009 14:49 EST 11/13/2009 15:07 EST Dominic Araujo MD CHEMISTRY & BLOOD GA S ORDERABLES Performing Organization Address [facility] Co de Phone Number [facility] [address] [place] [address] * BUN (11/13/2009 14:49 EST) BUN 19 10 - 26 mg/dl [facility] Blood specimen (specimen) 11/13/2009 14:49 EST 11/13/2009 15:07 EST Dominic Araujo MD CHEMISTRY & BLOOD GA S ORDERABLES Performing Organization Address [facility] Co de Phone Number [facility] [address] [place] [address] * ELECTROLYTES (11/13/2009 14:49 EST) Sodium 136 136 - 145 mEq/L [facility] Potassium 4.4 3.5 - 5.0 mEq/L [facility] Chloride 107 96 - 110 mEq/L [facility] CO2 25 24 - 32 mEq/L [facility] Blood specimen (specimen) 11/13/2009 14:49 EST 11/13/2009 15:07 EST Dominic Araujo MD CHEMISTRY & BLOOD GA S ORDERABLES [facility] [address] [place] [address] * (ABNORMAL) HEMAGRAM AND DIFFERENTIAL (11/13/2009 14:49 EST) WBC 9.42 4.0 - 10.4 K/cmm [facility] RBC 4.64 4.36 - 5.78 M/cmm [facility] Hemoglobin 14.1 13.8 - 17.3 gm/dl [facility] HCT 42.0 39.5 - 50.2 % [facility] MCV 91 81 - 95 fl [facility] MCH 30.4 27.6 - 33.0 pg [facility] MCHC 33.6 32.8 - 36.4 gm/dl [facility] PLT 184 141 - 320 K/cmm [facility] RDW-CV 14.3(H) 11.8 - 14.1 % [facility] % Neutrophils 66.7 45.5 - 79.7 % [facility] % Lymphocytes 16.4 15.0 - 46.8 % [facility] % Monocytes 8.4 1.8 - 12.0 % [facility] % Eosinophils 8.0(H) 0.6 - 6.9 % [facility] % Basophils 0.5 0.2 - 1.4 % [facility] ABS Neutrophils 6.28 2.20 - 8.85 K/cmm [facility] ABS Lymphs 1.55 1.09 - 3.30 K/cmm [facility] ABS Monocytes 0.79 0.1 - 0.8 K/cmm [facility] ABS Eosinophils 0.75(H) 0.03 - 0.61 K/cmm [facility] ABS Basophils 0.05 0.01 - 0.11 K/cmm [facility] Type of Diff: Automated [facility] Blood specimen (specimen) 11/13/2009 14:49 EST 11/13/2009 15:07 EST Dominic Araujo MD PACKAGES & DNA PROBE ORDERABLES Performing Organization Address City/State/[place] Co de Phone Number [facility] [address] [place] [address] documented in this encounter Visit Diagnoses Diagnosis Abnormal stress test Other nonspecific abnormal cardiovascular system function study Chest pain Chest pain, unspecified Confusion Unspecified psychosis Hypertension Unspecified essential hypertension Hyperlipidemia Other and unspecified hyperlipidemia documented in this encounter Administered Medications Inactive Administered Medications - up to 3 most recent administrations Medication Order MAR Action Action Date Dose Rate Site amitriptyline (ELAVIL) tablet 50 mg 50 mg, oral, AT BEDTIME, First dose on 11/13/09 at 2100, Until Discontinued, Routine Given 11/13/2009 21:42 EST 50 mg aspirin tablet 325 mg 325 mg, oral, DAILY, First dose on 11/13/09 at 1645, Until Discontinued, Routine Given 11/14/2009 10:14 EST 325 mg baclofen (LIORESAL) tablet 20 mg 20 mg, oral, 2 TIMES DAILY, First dose on 11/13/09 at 2100, Until Discontinued, Routine Given 11/14/2009 10:14 EST 20 mg Given 11/13/2009 21:42 EST 20 mg citalopram (CELEXA) tablet 60 mg 60 mg, oral, DAILY, First dose on 11/13/09 at 1645, Until Discontinued, Routine Given 11/14/2009 10:15 EST 60 mg clopidogrel (PLAVIX) tablet 75 mg 75 mg, oral, DAILY, First dose on 11/13/09 at 1700, Until Discontinued, Routine Given 11/13/2009 17:17 EST 75 mg docusate sodium (COLACE) capsule 100 mg 100 mg, oral, 2 TIMES DAILY, First dose on 11/13/09 at 2100, Until Discontinued, Routine Given 11/13/2009 21:42 EST 1 00 mg fluticasone (FLOVENT HFA) 44 mcg/Actuation inhaler 1 Puff 1 Puff, inhalation, 2 TIMES DAILY, First dose (after last modification) on 11/13/09 at 2100, Until Discontinued, Routine Given 11/13/2009 21:42 EST 1 Puff folic acid (FOLVITE) tablet 1 mg 1 mg, oral, DAILY, First dose on 11/13/09 at 1645, Until Discontinued, Routine Given 11/14/2009 10:23 EST 1 mg Given 11/13/2009 17:16 EST 1 mg heparin in 1/2 NS 25,000 unit/250 mL infusion 15 Units/kg/hr ? 78.7 kg Adjusted weight (rounded to 11.8 mL/hr), intravenous, CONTINUOUS, Starting on 11/13/09 at 1645, Until 11/13/09 at 1815, Routine New Bag 11/13/2009 12:45 EST 15 Units/kg/hr 11.5 mL/hr levothyroxine (SYNTHROID) tablet 75 mcg 75 mcg, oral, DAILY, First dose on 11/13/09 at 1645, Until Discontinued, Routine Given 11/14/2009 10:18 EST 75 mcg lisinopril (PRINIVIL, ZESTRIL) tablet 10 mg 10 mg, oral, DAILY, First dose on 11/13/09 at 1645, Until Discontinued, Routine Given 11/14/2009 10:18 EST 10 mg lithium (LITHOBID) SR tablet 300 mg 300 mg, oral, DAILY, First dose on 11/14/09 at 0900, Until Discontinued, Routine Given 11/14/2009 10:18 EST 300 mg lithium (LITHOBID) SR tablet 600 mg 600 mg, oral, AT BEDTIME, First dose on 11/13/09 at 2100, Until Discontinued, Routine Given 11/13/2009 21:42 EST 600 mg metoprolol (LOPRESSOR) tablet 25 mg 25 mg, oral, 2 TIMES DAILY, First dose (after last modification) on 11/13/09 at 2100, Until Discontinued, Routine Given 11/14/2009 10:22 EST 25 mg Given 11/13/2009 21:42 EST 25 mg Multivitamins with Minerals tablet 1 Tab 1 Tablet, oral, DAILY, First dose on 11/13/09 at 1645, Until Discontinued, Routine Given 11/14/2009 10:2 2 EST 1 Tablet ranitidine (ZANTAC) tablet 150 mg 150 mg, oral, 2 TIMES DAILY, First dose on 11/13/09 at 2100, Until Discontinued, Routine Given 11/14/2009 10:20 EST 150 mg Given 11/13/2009 21:42 EST 150 mg simvastatin (ZOCOR) tablet 10 mg 10 mg, oral, AT BEDTIME, First dose on 11/13/09 at 2100, Until Discontinued, Routine Given 11/13/2009 21:42 EST 1 0 mg sodium chloride 0.9 % flush 3 mL 3 mL, intravenous, EVERY 8 HOURS, First dose on 11/13/09 at 1645, Until Discontinued, Routine Given 11/14/2009 10:22 EST 3 mL Given 11/14/2009 0:00 EST 3 mL thiamine (VITAMIN B1) tablet 100 mg 100 mg, oral, DAILY, First dose on 11/13/09 at 1645, Until Discontinued, Routine Given 11/14/2009 10:20 EST 100 mg Given 11/13/2009 17:16 EST 100 mg documented in this encounter Discontinued Medications Medication Sig Discontinue Reason Start Date End Da te metoprolol (LOPRESSOR) 25 mg tablet Take 1 Tab by mouth 2 times daily. 11/14/2009 11/14/2009 simvastatin (ZOCOR) 10 mg tablet Take 4 Tabs by mouth at bedtime. 11/14/2009 11/14/2009 simvastatin (ZOCOR) 10 mg tablet Take 10 mg by mouth at bedtime. 11/14/2009 documented as of this encounter Historical Medications * This list may reflect changes made after this encounter. Medication Sig Dispensed Refills Start Date End Date citalopram (CELEXA) 20 mg tablet Take 60 mg by mouth daily. amitriptyline (ELAVIL) 50 mg tablet Take 50 mg by mouth at bedtime. albuterol (PROVENTIL HFA, VENTOLIN HFA) 90 mcg/Actuation inhaler Inhale 2 Puffs as directed 4 times daily as needed for Wheezing. 01/23/2014 fluticasone (FLOVENT HFA) 44 mcg/Actuation inhaler Inhale 1 Puff as directed 2 times daily. 01/23/2014 lithium (LITHOBID) 300 mg CR tablet Take 600 mg by mouth at bedtime. 01/03/2014 lithium (LITHOBID) 300 mg CR tablet Take 300 mg by mouth daily. 01/03/2014 baclofen (LIORESAL) 10 mg tablet Take 20 mg by mouth 2 times daily. 03/12/2015 levothyroxine (SYNTHROID) 25 mcg tablet Take 75 mcg by mouth daily. 01/23/2014 lisinopril (PRINIVIL, ZESTRIL) 10 mg tablet Take 10 mg by mouth daily. 01/03/2014 simvastatin (ZOCOR) 10 mg tablet Take 10 mg by mouth at bedtime. 11/14/2009 ranitidine (ZANTAC) 150 mg tablet Take 150 mg by mouth 2 times daily. 03/12/2015 piroxicam (FELDENE) 20 mg capsule Take 20 mg by mouth daily. 01/23/2014 added in this encounter Active and Recently Administered Medications Times are shown in EST. Scheduled Medication Order 11/12/2009 11/13/2009 11/14/2009 amitriptyline (ELAVIL) tablet 50 mg (CANCELED) 50 mg, oral, AT BEDTIME, First dose on 11/13/09 at 2100, Until Discontinued, Routine 2142 (Given - Provider: Lizz Bautista RN) aspirin tablet 325 mg 325 mg, oral, DAILY, First dose on 11/13/09 at 1645, Until Discontinued, Routine 1645 (Not Given - Provider: Yanique Louis RN - Reason: Other - Comment: Pt took at OSH) 1014 (Given - Provider: Eliz Junior) baclofen (LIORESAL) tablet 20 mg (CANCELED) 20 mg, oral, 2 TIMES DAILY, First dose on 11/13/09 at 2100, Until Discontinued, Routine 2142 (Given - Provider: Lizz Bautista RN) 1014 (Given - Provider: Eliz Junior) citalopram (CELEXA) tablet 60 mg (CANCELED) 60 mg, oral, DAILY, First dose on 11/13/09 at 1645, Until Discontinued, Routine 1645 (Not Given - Provider: Yanique Louis RN - Reason: Other - Comment: Pt took at OSH) 1015 (Given - Provider: Eliz Junior) clopidogrel (PLAVIX) tablet 75 mg (CANCELED) 75 mg, oral, DAILY, First dose on 11/13/09 at 1700, Until Discontinued, Routine 1717 (Given - Provider: Yanique Louis RN) docusate sodium (COLACE) capsule 100 mg (CANCELED) 100 mg, oral, 2 TIMES DAILY, First dose on 11/13/09 at 2100, Until Discontinued, Routine 2141 (Given - Provider: Lizz Bautista RN) 0900 (Not Given - Provider: Eliz Junior - Reason: Patient/family refused) fluticasone (FLOVENT HFA) 44 mcg/Actuation inhaler 1 Puff (CANCELED) 1 Puff, inhalation, 2 TIMES DAILY, First dose (after last modification) on 11/13/09 at 2100, Until Discontinued, Routine 214 (Given - Provider: Lizz Bautista RN) 0900 (Not Given - Provider: Eliz Junior - Reason: Other - Comment: pt took other steriod inhaler) folic acid (FOLVITE) tablet 1 mg (CANCELED) 1 mg, oral, DAILY, First dose on 11/13/09 at 1645, Until Discontinued, Routine 1716 (Given - Provider: Yanique Louis RN) 1023 (Given - Provider: Eliz Junior) levothyroxine (SYNTHROID) tablet 75 mcg (CANCELED) 75 mcg, oral, DAILY, First dose on 11/13/09 at 1645, Until Discontinued, Routine 1645 (Not Given - Provider: Yanique Louis RN - Reason: Other - Comment: Pt took at OSH) 1018 (Given - Provider: Eliz Junior) lisinopril (PRINIVIL, ZESTRIL) tablet 10 mg (CANCELED) 10 mg, oral, DAILY, First dose on 11/13/09 at 1645, Until Discontinued, Routine 1645 (Not Given - Provider: Yanique Louis RN - Reason: Other - Comment: Pt took at OSH) 1018 (Given - Provider: Eliz Junior) lithium (LITHOBID) SR tablet 300 mg (CANCELED) 300 mg, oral, DAILY, First dose on 11/14/09 at 0900, Until Discontinued, Routine 1018 (Given - Provid er: Eliz Junior) lithium (LITHOBID) SR tablet 600 mg (CANCELED) 600 mg, oral, AT BEDTIME, First dose on 11/13/09 at 2100, Until Discontinued, Routine 2142 (Given - Provider: Lizz Bautista RN) metoprolol (LOPRESSOR) tablet 25 mg 25 mg, oral, 2 TIMES DAILY, First dose (after last modification) on 11/13/09 at 2100, Until Discontinued, Routine 2142 (Given - Provider: Lizz Bautista RN) 1022 (Given - Provider: Eliz Junior) Multivitamins with Minerals tablet 1 Tab (CANCELED) 1 Tablet, oral, DAILY, First dose on 11/13/09 at 1645, Until Discontinued, Routine 1645 (Not Given - Provider: Yanique Louis RN - Reason: Other - Comment: Pt took at OSH) 1022 (Given - Provider: Eliz Junior) ranitidine (ZANTAC) tablet 150 mg (CANCELED) 150 mg, oral, 2 TIMES DAILY, First dose on 11/13/09 at 2100, Until Discontinued, Routine 2142 (Given - Provider: Lizz Bautista RN) 1020 (Given - Provider: Eliz Junior) simvastatin (ZOCOR) tablet 10 mg 10 mg, oral, AT BEDTIME, First dose on 11/13/09 at 2100, Until Discontinued, Routine 214 (Given - Provider: Lizz Bautista RN) sodium chloride 0.9 % flush 3 mL (CANCELED) 3 mL, intravenous, EVERY 8 HOURS, First dose on 11/13/09 at 1645, Until Discontinued, Routine 1645 (Not Given - Provider: Yanique Louis RN - Reason: Other - Comment: Pt took at OSH) 0000 (Given - Provider: Lizz Bautista RN)1022 (Given - Provider: Eliz Junior) thiamine (VITAMIN B1) tablet 100 mg (CANCELED) 100 mg, oral, DAILY, First dose on 11/13/09 at 1645, Until Discontinued, Routine 1716 (Given - Provider: Yanique Louis RN) 1020 (Given - Provider: Eliz Junior) Continuous Medication Order 11/12/2009 11/13/2009 11/14/2009 heparin in 1/2 NS 25,000 unit/250 mL infusion (CANCELED) 15 Units/kg/hr ? 78.7 kg Adjusted weight (rounded to 11.8 mL/hr), intravenous, CONTINUOUS, Starting on 11/13/09 at 1645, Until 11/13/09 at 1815, Routine 1245 (New Bag - Provider: Yanique Louis RN - Comment: Running from OSH at 1150 units/hr)1848 (Completed - Provider: Yanique Louis RN) PRN Medication Order 11/12/2009 11/13/2009 11/14/2009 nitroGLYCERIN (NITROSTAT) SL tablet 0.4 mg 0.4 mg, sublingual, EVERY 5 MIN PRN, Starting on 11/13/09 at 1620, Until 11/14/09 at 1656, Chest Pain, Routine documented in this encounter Orders Medications Ordered That Scott ht Not Have Been Administered Count Last Ordered Date First Ordered Date acetaminophen (TYLENOL) tablet 650 mg 1 albuterol (PROVENTIL HFA, VE NTOLIN HFA) inhaler 2 Puff 2 11/13/2009 atropine 0.1 mg/mL 10 mL syringe 0.5-1 mg 1 11/13/2009 fluticasone (FLOVENT HFA) 44 mcg/Actuation inhaler 1 Puff 1 11/13/2009 heparin injection 2,800 Units 1 11/13/2009 heparin injection 5,500 Units 1 11/13/2009 lidocaine (PF) 100 mg/5 mL ( 2 %) syringe 80 mg 1 11/13/2009 metoprolol (LOPRESSOR) tablet 12.5 mg 1 morphine injection 2-4 mg 1 11/13/2009 nicotine (NICODERM CQ) 21 mg /24 hr patch 1 Patch 1 11/13/2009 nitroGLYCERIN (NITROSTAT) SL tablet 0.4 mg 1 11/13/2009 piroxicam (FELDENE) capsule 20 mg 1 010 senna (SENOKOT) tablet 1-2 Tab 1 11/13/2009 EKG Orders Without Results Count Last Ordered D ate First Ordered Date EKG 12-LEAD 1 11/13/2009 Diet Count Last Ordered Date First Orde red Date DIET CAFFEINE FREE CARDIAC 1 11/13/2009 Nursing Count Last Ordered Date First Orde red Date MAINTAIN SEQUENTIAL COMPRESSION DEVICE 1 Admission Count Last Ordered Date First Orde red Date NOTIFY PPS OF ROOM CHANGE COMPLETE 1 2009 ADMIT TO INPATIENT 1 11/13/2009 ADMITTING CONDITION 1 11/13/2009 TEACHING SERVICE 1 11/13/2009 Discharge Count Last Ordered Date First Orde red Date DISCHARGE PATIENT 1 11/14/2009 documented in this encounter Care Teams Ammonia Box Tender Relationship Specialty Start Date End Date None, Provider PCP - General 11/12/09 11/14/09 documented as of this encounter
[2024-04-16 15:45] LABS: HCT 47.3 % (40.0-50.0); HGB 15.7 g/dL (13.5-17.5); MCH 31.1 pg (27.0-33.0); MCHC 33.2 % (32.0-36.0); MCV 94 fL (80-95); MPV 9.9 fL (8.0-11.0); Platelet Count 344 10^3/uL (130-400); RBC 5.05 10^6/uL (4.36-5.78); RDW 12.8 % (11.8-14.1); RDW-SD 44.7 fL; WBC 13.92 10^3/uL (4.4-10.8)
[2024-04-16 16:05] LABS: Bilirubin Small (Negative); Blood Large (Negative); Clarity Cloudy (Clear); Glucose Negative (Negative); Ketones Trace mg/dL (Negative); Leukocyte Esterase Negative (Negative); Nitrite Negative (Negative); Specific Gravity >= 1.030 (1.005-1.025)
[2024-04-16 16:21] LABS: Bacteria Rare HPF (Negative); C & S Indicated? Yes; Casts Negative LPF (Negative); Crystals Negative HPF (Negative); Epithelial Cells Rare HPF (Negative); Mucus Negative (Negative); RBC >50 HPF (0-2)
[2024-04-16 16:28] LABS: ALT 22 U/L (16-63); AST 23 U/L (15-37); Albumin 3.6 g/dL (3.4-5.0); Alkaline Phosphatase 109 U/L (46-116); Anion Gap 11.1 mmol/L (3-11); BUN 22 mg/dL (7-18); Bilirubin, Total 0.49 mg/dL (0.2-1.0); CO2 29.9 mmol/L (21.0-32.0); CREATININE 1.3 mg/dL (0.70-1.30); Chloride 99 mmol/L (98-107); Estimated GFR 59.84 (mL/min/1.73m2); Glucose 117 mg/dL (74-106); Lipase 14 U/L (16-77); Potassium 4.3 mmol/L (3.5-5.1); Sodium 140 mmol/L (136-145); Total Protein 8.3 g/dL (6.4-8.2)
== END 2024-04-16 13:55 | disposition home or self-care (01) ==
LOC: NCHCN 13:54
PROVIDERS: PCP Nurse Practitioner Family; Visit Provider Nurse Practitioner Family
DX: R10.9 Unspecified abdominal pain (principal); R31.9 Hematuria, unspecified; R63.4 Abnormal weight loss; R79.89 Other specified abnormal findings of blood chemistry; R82.998 Other abnormal findings in urine
CPT/HCPCS: 80053; 83690; 85027; 81003; 81015; 87086

== ENCOUNTER 2024-04-17 08:23 | Emergency (ER) | payer MEDICARE, MEDICAID, SELFPAY ==
[2024-04-17] VITALS (70 sets, daily range): BP systolic 148–236; BP diastolic 74–144; PULSE 72–104; RESP 12–33; TEMP 36.3–37.2; O2SAT 93–99
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
--- OUTSIDE RECORDS SUMMARY | 2024-04-17 08:42 | XMS_ITS | Encounter Summary ---
Author Organization [facility] [place] [address] Care Team Providers Care Pipe Jeeper Name Role Phone Tammy Farley MD Primary Care Provider [phone] Encounter Details Date Type Department Care Team (Late st Contact Info) Description 04/30/2020 Telephone [place] [address] Shakira Horta Social History Tobacco Use Types [...] on filedocumented in this encounter Care Teams Pipe Jeeper Relationship Specialty Start Date End Date Tammy Farley MD [address] [place] [address] [address] [place] [address] PCP - General Family Medicine 07/23/18 05/06/20 documented as of this encounter
--- OUTSIDE RECORDS SUMMARY | 2024-04-17 08:42 | XMS_ITS | Encounter Summary ---
Author Organization [facility] Address One [facility] [place] [address] Care Team Providers Care Scale Installer Name Role Phone Ranjitsevero Ness [place] Primary Care Provider [phone] Encounter Details Date Type Department Care Team (Latest Contact Info) Description 07/31/2022 10:45 PM EST - 07/31/2022 11:59 PM EST Hospital Encounter Laboratory One [facility] [place] [address] Discharge Disposition: Home Social History Tobacco Use [...] mouth daily. fluticasone propionate (FLONASE) 50 mcg/actuation [place], Suspension 1 spray daily. lisinopril (PRINIVIL;ZESTRIL) 10 mg Tablet Take 10 mg by mouth daily. aspirin 81 mg Tablet, Delayed Release (E.C.) Take 81 mg by mouth daily. omeprazole (PRILOSEC) 20 mg Capsule, Delayed Release(E.C.) Take 20 mg by mouth daily. traZODone (DESYREL) 100 mg Tablet Take 100 mg by mouth nightly. multivitamin Ouwz-Lg-AG-Min (THERAPEUTIC-M) 27-0.4 mg Tablet Take 1 tablet [...] (07/31/2022 4:53 PM EST) FINAL DIAGNOSIS (AP) [id number] ? Location: [facility] The signing pathologist has (i) examined the relevant preparation(s) for the specimen(s) and (ii) rendered or confirmed the diagnosis(es). . ?Surgical Pathology DIAGNOSIS Toenail, clippings: - Onychomycosis Electronically signed by: ?Kyleigh Magallon MD Verified: ??08/04/2022 12:57 ??Dermatopatholog ist Performed at: ??-[facility] Dept. of Pathology, [place] [address] Supervisor Shaving And Splitting: Elana Wakefield MD, FCAP, ??CLIA Certificate: [id number] ADDITIONAL STUDIES PAS/fungus stain highlights fungal hyphal elements in the nail tissue. SPECIMEN(S) SUBMITTED A - toenail clipping Referring Identifier: ??[id number] CLINICAL INFORMATION Onychomycosis SPECIMEN PROCESSING A - Labeled/Fixative: Patient demographics, fresh. Quantity/Size: Multiple, 0.5 x 0.4 x 0.2 cm in aggregate. Tissue Description: Irregular fragments of variegated white to echeverria-brown, thickened unguis tissues. Sections/Processi ng: Submitted en toto in 1 cassette labeled A1. ??shb 08/04/2022 12:57 PM EST [facility] NAIL SPECIMEN / Unknown 07/31/2022 4:53 PM EST 07/31/2022 4:53 PM EST Narrative Resulting Agency Comment Spec In Lab / WKS Sarah Guido ADMINISTRATIVE ASSISTANT OFFICE MANAGER PATHOLOGY/CYTOLOGY ORDERABLES Performing Organization Address City/State/[facility] Co de Phone Number [facility] [place] [phone] documented in this encounter Visit Diagnoses Not on filedocumented in this encounter Care Teams Scale Installer Relationship Specialty Start Date End Date Ness Diaz APRN [address] [place] [address] PCP - General Family Medicine 05/07/20 documented as of this encounter
--- OUTSIDE RECORDS SUMMARY | 2024-04-17 08:42 | XMS_ITS | Encounter Summary ---
Author Organization [facility] [place] [address] Care Team Providers Care Tunnel Kiln Repairer Name Role Phone Tammy Farley MD Primary Care Provider [phone] Encounter Details Date Type Department Care Team (Late st Contact Info) Description 07/23/2018 1:00 PM EST Office Visit General Surgery at [facility] [place], [facility] [place] [address] Alisson Munoz, BABY NURSE [facility] [place] [address] Splenic trauma, subsequent encounter Social History Tobacco [...] this encounter Progress Notes * Alisson Munoz, BABY NURSE - 07/23/2018 1:00 PM EST Jimenez Marin [...] has been doing well. Jimenez lives at [facility] in [place], [place] it is an assisted living facility. [...] PM EST) WBC 15.2(H) 4.0 - 9.5 x10(3)/[facility] RBC 5.20 4.58 - 5.54 x10(6)/[facility] Hemoglobin 15.2 13.7 - 16.5 gm/dL [facility] Hematocrit 46.3 40.5 - 48.5 % [facility] MCV 89.0 82.9 - 93.1 fL [facility] MCH 29.2 27.5 - 32.1 pg [facility] MCHC 32.8 32.0 - 35.7 gm/dL [facility] Platelets 368(H) 145 - 357 x10(3)/[facility] RDWSD 48.2(H) 36.0 - 45.0 [facility]ORY RDWCV 14.7(H) 11.4 - 13.8 % [facility] MPV 8.8 7.6 - 12.9 [facility]ORY nRBC % Auto 0.0 % [facility] nRBC Abs Auto 0.000 0.000 - 0.000 x10(3)/[facility] Blood specimen (specimen) 07/23/2018 1:55 PM EST 07/23/2018 2:05 PM EST Narrative Resulting Agency Comment Spec In Lab Alisson Munoz BABY NURSE HEMATOLOGY ORDERAB LES Performing Organization Address City/State/[facility] Co de Phone Number [facility] [place] [address] documented in this encounter Visit Diagnoses Diagnosis Splenic trauma, subsequent encounter documented in this encounter Care Teams Tunnel Kiln Repairer Relationship Specialty Start Date End Date Tammy Farley MD [address] [place] [address] PCP - General Family Medicine 07/23/18 05/06/20 documented as of this encounter
--- OUTSIDE RECORDS SUMMARY | 2024-04-17 08:42 | XMS_ITS | Encounter Summary ---
Author Organization [facility] [place] [address] Care Team Providers Care Rod Welder Name Role Phone DavNess causey DARIANA Primary Care Provider Reason for Referral * Diagnostic Test (Routine) - Closed Specialty Diagnoses / Procedures Referred By Contac t Referred To Contact Radiology Diagnoses Pleural nodule Procedures NM PET CT Skull Base to Mid-thigh Mabel Gurrola PA [address] [place] [address] [place] [address] Referral ID Status Reason Start Date Expiration Date V isits Requested Visits Authorized [id number] Closed Specialty Service Requested 10/23/2022 04/22/2024 1 1 Reason for Visit * Diagnostic Test (Routine) - Closed Specialty Diagnoses / Procedures Referred By Contac t Referred To Contact Radiology Diagnoses Pleural nodule Procedures NM PET CT Skull Base to Mid-thigh Mabel Gurrola PA [address] [place] [address] [place] [address] Referral ID Status Reason Start Date Expiration Date V isits Requested Visits Authorized [id number] Closed Specialty Service Requested 10/23/2022 04/22/2024 1 1 Encounter Details Date Type Department Care Team (Latest Contact Info) Description 11/13/2022 2:27 PM EST Hospital Encounter [place] [address] Mabel Gurrola PA [address] [place] [address] Pleural nodule Discharge Disposition: Home Social History [...] mouth daily. fluticasone propionate (FLONASE) 50 mcg/actuation [place], Suspension 1 spray daily. lisinopril (PRINIVIL;ZESTRIL) 10 mg Tablet Take 10 mg by mouth daily. aspirin 81 mg Tablet, Delayed Release (E.C.) Take 81 mg by mouth daily. omeprazole (PRILOSEC) 20 mg Capsule, Delayed Release(E.C.) Take 20 mg by mouth daily. traZODone (DESYREL) 100 mg Tablet Take 100 mg by mouth nightly. multivitamin Ohnz-Pl-YC-Min (THERAPEUTIC-M) 27-0.4 mg Tablet Take 1 tablet [...] who have questions please contact the health chronic care nurse that requested your imaging first. ? Narrative 11/16/2022 9:49 AM EST EXAMINATION: PR PET CT STANDARD SKULL BASE TO MID-THIGH CLINICAL HISTORY: pleural nodule; concern for lung ca TECHNIQUE: Following IV injection of 88-zrlkxe-0-deoxyglucose (FDG) a standard uptake of approximately 60 [...] head, face, and cervical spine 04/29/[address] [facility] abdomen/pelvis 07/05/2018 from [facility] CT chest, abdomen, and pelvis 06/14/2018 from [facility] FINDINGS: HEAD/NECK: Symmetric muscular activity [...] Note Ashley Kerr MD - 11/16/2022 EXAMINATION: PR PET CT STANDARD SKULL BASE TO MID-THIGH CLINICAL HISTORY: pleural nodule; concern for lung ca TECHNIQUE: Following IV injection of 88-ifdcgj-2-deoxyglucose (FDG) astandard uptake of approximately 60 minutes, a noncontrast CT scan followed by aPET scan were acquired from the base of the skull to mid thighs. The noncontrast CTwas used for anatomic localization and photon attenuation correction of thePET scan. No oral contrast was administered. Blood glucose level: 105 (mg/dL) FDG dose: 8.8 mCi [address]:. [address] head, face, and cervical spine 04/29/[address] [facility] abdomen/pelvis 07/05/2018 from [facility] CT chest, abdomen, and pelvis 06/14/2018 from [facility] FINDINGS: HEAD/NECK: Symmetric muscular activity [...] of background mediastinal blood pool, not seen [id number] CT. This is indeterminate for an inflammatory [...] patients who have questions please contactthe health chronic care nurse that requested your imaging first. Mabel ORTIZ [...] Arm documented in this encounter Care Teams Rod Welder Relationship Specialty Start Date End Date Ness Diaz, RETANNED LEATHER ROLLER [address] [facility] [address] PCP - General Family Medicine 05/07/20 documented as of this encounter
--- OUTSIDE RECORDS SUMMARY | 2024-04-17 08:42 | XMS_ITS | Encounter Summary ---
Author Organization [facility] [place] [address] Care Team Providers Care Network Operations Project Manager Name Role Phone Tammy Farley MD Primary Care Provider [phone] Encounter Details Date Type Department Care Team (Late st Contact Info) Description 04/29/2020 10:55 PM EDT Ancillary Procedure Radiology Library at [facility] [place] [address] Luca Teixeira MD [facility] [place] [address] Social History Tobacco Use Types Packs/Day Years [...] Teixeira MD IMG FILM LIBRARY ORD ERABLES [place], [place] documented in this encounter Visit Diagnoses Not on filedocumented in this encounter Care Teams Network Operations Project Manager Relationship Specialty Start Date End Date Tammy Farley MD [address] [place] [address] [address] [facility] [address] [place] [address] PCP - General Family Medicine 07/23/18 05/06/20 documented as of this encounter
--- OUTSIDE RECORDS SUMMARY | 2024-04-17 08:42 | XMS_ITS | Encounter Summary ---
Author Organization [facility] Address [facility] [place] [address] Care Team Providers Care Ear Flap Binder Name Role Phone None Primary Care Provider Unavailabl e Reason for Visit * Diagnostic Test (Routine) - Closed Specialty Diagnoses / Procedures Referred By Contac t Referred To Contact Radiology Diagnoses Laceration of spleen, initial encounter Procedures CT Abdomen & Pelvis wwo Contrast (Generic) CT Abdomen & Pelvis w Contrast Brent Souza MD [facility] [place] [address] [facility] [place] [address] Referral ID Status Reason Start Date Expiration Date V isits Requested Visits Authorized [id number] Closed Specialty Service Requested 06/21/2018 09/19/2018 1 1 Encounter Details Date Type Department Care Team (Latest Contact Info) Description 07/05/2018 8:59 AM EDT - 07/05/2018 11:59 PM EDT Hospital [place] [address] Db Oviedo MD [facility] [address] [place] [address] Laceration of spleen, initial encounter Discharge Disposition: [...] Take 100 mg by mouth nightly. multivitamin Ydht-Xf-IJ-Min (THERAPEUTIC-M) 27-0.4 mg Tablet Take 1 tablet [...] mLs documented in this encounter Care Teams Ear Flap Binder Relationship Specialty Start Date End Date None None PCP - General 08/09/10 07/22/18 documented as of this encounter
--- OUTSIDE RECORDS SUMMARY | 2024-04-17 08:42 | XMS_ITS | Encounter Summary ---
Author Organization [facility] Address [facility] [place] [address] Care Team Providers Care Newborn Photographer Name Role Phone Tammy Farley MD Primary Care Provider [phone] Encounter Details Date Type Department Care Team (Late st Contact Info) Description 04/29/2020 Ancillary Procedure [facility] [place] [address] Luca Teixeira MD [facility] [place] [address] Social History Tobacco Use Types Packs/Day Years [...] Teixeira MD IMG FILM LIBRARY ORD ERABLES [place], [place] documented in this encounter Visit Diagnoses Not on filedocumented in this encounter Care Teams Newborn Photographer Relationship Specialty Start Date End Date Tammy Farley MD [address] [place] [address] PCP - General Family Medicine 07/23/18 05/06/20 documented as of this encounter
--- OUTSIDE RECORDS SUMMARY | 2024-04-17 08:42 | XMS_ITS | Encounter Summary ---
Author Organization [facility] [place] [address] Care Team Providers Care Stave Machine Tender Name Role Phone RanjitNess elkins DARIANA Primary Care Provider Encounter Details Date Type Department Care Team (Latest Contact Info) Description 06/23/2020 11:30 AM EDT TH Visit (TeleHealth) [place] [address] Matilda Zapata APRN [facility] [place] [address] Closed fracture of face bones due to [...] dizzy spells and numbness in face around islam and gums on right side. He was [...] encounter documented in this encounter Care Teams Stave Machine Tender Relationship Specialty Start Date End Date Ness Diaz APRN [address] [place] [address] PCP - General Family Medicine 05/07/20 documented as of this encounter
--- OUTSIDE RECORDS SUMMARY | 2024-04-17 08:42 | XMS_ITS | Encounter Summary ---
Author Organization [facility] [place] [address] Care Team Providers Care Forensic Anthropologist Name Role Phone DavNess causey DARIANA Primary Care Provider [phone] Reason for Visit * Diagnostic Test (Routine) - Closed Specialty Diagnoses / Procedures Referred By Christin connelly Referred To Contact Radiology Diagnoses Pleural nodule Procedures NM PET CT Skull Base to Mid-thigh Mabel Gurrola PA [address] [place] [address] [place] [address] Referral ID Status Reason Start Date Expiration Date V isits Requested Visits Authorized [id number] Closed Specialty Service Requested 10/23/2022 04/22/2024 1 1 Encounter Details Date Type Department Care Team (Latest Contact Info) Description 11/13/2022 2:28 PM EST - 11/13/2022 11:59 PM [facility] Hospital Encounter [place] [address] Mabel Gurrola PA [address] [place], [place] [phone] Discharge Disposition: Home Social History Tobacco Use [...] mouth daily. fluticasone propionate (FLONASE) 50 mcg/actuation [place], Suspension 1 spray daily. lisinopril (PRINIVIL;ZESTRIL) 10 mg Tablet Take 10 mg by mouth daily. aspirin 81 mg Tablet, Delayed Release (E.C.) Take 81 mg by mouth daily. omeprazole (PRILOSEC) 20 mg Capsule, Delayed Release(E.C.) Take 20 mg by mouth daily. traZODone (DESYREL) 100 mg Tablet Take 100 mg by mouth nightly. multivitamin Ialw-Zj-ZW-Min (THERAPEUTIC-M) 27-0.4 mg Tablet Take 1 tablet [...] POC Glucose 105 65 - 199 mg/dL [facility] Comment: Supplemental ranges: <140 mg/dL before meals <180 mg/dL all other times of the day Blood 11/13/2022 2:33 PM EST 11/13/2022 2:33 PM EST Mabel ORTIZ POINT OF CARE TE ST ORDERABLES [facility] [place] [address] documented in this encounter Visit Diagnoses Not on filedocumented in this encounter Care Teams Forensic Anthropologist Relationship Specialty Start Date End Date Ness Diaz, DARIANA [address] [place] [address] PCP - General Family Medicine 05/07/20 documented as of this encounter
--- OUTSIDE RECORDS SUMMARY | 2024-04-17 08:42 | XMS_ITS | Clinical Summary ---
Author Organization [facility] Address One [facility] [place] [address] Care Team Providers Care Intake Clerk Name Role Phone Ness Diaz APRN Primary Care Provider Allergies Active Allergy Reactions Criticality Noted Date Comments Simvastatin 02/24/2016 Carbamazepine 02/24/2016 Medications Medication Sig Dispensed Refills Start Date End Date Status citalopram (CELEXA) 20 mg Tablet Take 20 mg by mouth daily. Active tiotropium (SPIRIVA WITH HANDIHALER) 18 mcg Capsule, w/Inhalation Device Inhale 18 mcg into the lungs daily. Active multivitamin Vbgh-Ik-RS-Min (THERAPEUTIC-M) 27-0.4 mg Tablet Take 1 tablet [...] daily. Active fluticasone propionate (FLONASE) 50 mcg/actuation [place], Suspension 1 spray daily. Act brian Active [...] capacity to make decision: Yes Care Teams Intake Clerk Relationship Specialty Start Date End Date Ness Diaz APRN [address] [place] [address] PCP - General Family Medicine 05/07/20
--- OUTSIDE RECORDS SUMMARY | 2024-04-17 08:42 | XMS_ITS | Encounter Summary ---
Author Organization [facility] Address [facility] [place] [address] Care Team Providers Care German Tutor Name Role Phone Ness Diaz APRN Primary Care Provider Reason for Visit * Reason Comments Advice Only facial fractures Encounter Details Date Type Department Care Team (Late st Contact Info) Description 05/07/2020 3:00 PM EDT Office [place] [address] Krista Melissa MD [facility] [place] [address] Closed fracture of facial bone due to [...] Krista Melissa M.D PCP: Ness Diaz APRN CHAIN SAW MECHANIC: No primary care provider on file. CC: Facial trauma s/p fall 04/29 HPI: Jimenez Marin is a 65 y.o. 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 PMH: COPD, HTN, Bipolar, CAD, SC PSH: splenic embolization for splenic laceration Social [...] file Gets together: Not on file Attends faith service: Not on file Active member of [...] 100 mg by mouth nightly. ??? multivitamin Nymx-Vb-RE-Min (THERAPEUTIC-M) 27-0.4 mg Tablet Take 1 tablet [...] y.o. male with COPD, HTN, CAD s/p SC w/ 2 stents/on ASA, and Bipolar who [...] encounter documented in this encounter Care Teams German Tutor Relationship Specialty Start Date End Date Ness Diaz, DARIANA [address] [place] [address] PCP - General Family Medicine 05/07/20 documented as of this encounter
--- OUTSIDE RECORDS SUMMARY | 2024-04-17 08:42 | XMS_ITS | Encounter Summary ---
Author Organization [facility] Address [facility] [address] Care Team Providers Care Steam Meter Reader Name Role Phone Ness Diaz APRN Primary Care Provider [phone] Encounter Details Date Type Department Care Team [...] on filedocumented in this encounter Care Teams Steam Meter Reader Relationship Specialty Start Date End Date Ness Diaz APRN [address] [place] [address] PCP - General Family Medicine 05/07/20 documented as of this encounter
--- OUTSIDE RECORDS SUMMARY | 2024-04-17 08:43 | XMS_ITS | Encounter Summary ---
Author Organization [facility] Address [address] [place] [address] Care Team Providers Care Link Knitting Machine Operator Name Role Phone Erich Sethi MD Primary Care Provider [phone] Sai Garg MD Primary Care Provi glynn Encounter Details Date Type Department Care Team (Late st Contact Info) Description 01/14/2015 Historical Results Only [facility] Radiology Results [address] [place], [place] [phone] Sai Garg MD [address] [place] [phone] Social History Tobacco Use Types Packs/Day [...] CC: ? Transcribed Date/Time: 01/14/2015 (1133) ? Surgery Manager: JENNY ? Printed Date/Time: 02/18/2019 (1035) ? [...] Dominic Taylor MD CC: Transcribed Date/Time: 01/14/2015 (7319) Surgery Manager: JENNY Printed Date/Time: 02/18/2019 (5031) PAGE 2 Signed Report Sai Hernández MD IMG [facility] documented in this encounter Visit Diagnoses Not on filedocumented in this encounter Care Teams Link Knitting Machine Operator Relationship Specialty Start Date End Date Erich Sethi MD [address] [place] [phone] PCP - General 11/12/14 03/11/15 Sai Garg MD [address] [place] [phone] PCP - General 03/12/15 11/04/19 documented as of this encounter
--- OUTSIDE RECORDS SUMMARY | 2024-04-17 08:43 | XMS_ITS | Encounter Summary ---
Author Organization [facility] [place] [address] Care Team Providers Care Cnc Maintenance Mechanic Name Role Phone None Primary Care Provider Unavailabl e Reason for Referral * Consultation (Routine) - Closed Specialty Diagnoses / Procedures Referred By Contac t Referred To Contact Orthopaedics Diagnoses Chronic right shoulder pain Chronic right shoulder pain Alpesh Orona MD [facility] [place] [address] [facility] [address] [place] [phone] Referral ID Status Reason Start Date Expiration Date V isits Requested Visits Authorized [id number] Closed Consult, Test & Treat 02/24/2016 02/23/2017 1 1 Reason for Visit * Reason Comments Neck Pain right shoulder arm p ain Encounter Details Date Type Department Care Team (Late st Contact Info) Description 02/24/2016 11:20 AM EDT Office [place] [phone] Alpesh Orona MD [facility] [address] Chronic right shoulder pain Social History Tobacco [...] neck pain. HISTORY OF PRESENT ILLNESS: Mr. 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 He denies constitutional symptoms or changes in [...] region documented in this encounter Care Teams Cnc Maintenance Mechanic Relationship Specialty Start Date End Date None None PCP - General 08/09/10 07/22/18 documented as of this encounter
--- OUTSIDE RECORDS SUMMARY | 2024-04-17 08:43 | XMS_ITS | Encounter Summary ---
Author Organization [facility] [place] [address] Care Team Providers Care Cisco Unified Communications Engineer Name Role Phone None Primary Care Provider Unavailabl e Encounter Details Date Type Department Care Team (Late st Contact Info) Description 01/12/2016 - 01/12/2016 11:59 PM EDT Hospital Encounter [place] [address] Tammy Farley MD [facility] [address] [place] [address] Pain Discharge Disposition: Home Social History Tobacco [...] DX Spine (01/12/2016 12:00 AM EDT) Narrative [facility] - 02/10/2016 9:30 AM EDT This exam is for storage only and is auto-finalizing. Tammy Farley MD G FILM LIBRARY ORD ERABLES [place], [place] documented in this encounter Visit Diagnoses Diagnosis Pain Generalized pain documented in this encounter Care Teams Cisco Unified Communications Engineer Relationship Specialty Start Date End Date None None PCP - General 08/09/10 07/22/18 documented as of this encounter
--- OUTSIDE RECORDS SUMMARY | 2024-04-17 08:43 | XMS_ITS | Encounter Summary ---
Author Organization [facility] [place] [address] Care Team Providers Care Beamer Operator Name Role Phone None Primary Care Provider Unavailabl e Encounter Details Date Type Department Care Team (Latest Contact Info) Description 06/14/2018 12:05 AM EDT - 06/14/2018 5:52 PM EDT Hospital Encounter [facility] [place] [address] Jose A Sargent MD [facility] [place] [address] Discharge Disposition: Home Social History Tobacco Use [...] Dispensed Refills Start Date End Date multivitamin Pzzy-Cj-GS-Min (THERAPEUTIC-M) 27-0.4 mg Tablet Take 1 tablet [...] MD IMG FILM LIBRARY ORD ERABLES RICH [place], [place] documented in this encounter Visit Diagnoses Not on filedocumented in this encounter Care Teams Beamer Operator Relationship Specialty Start Date End Date None None PCP - General 08/09/10 07/22/18 documented as of this encounter
--- OUTSIDE RECORDS SUMMARY | 2024-04-17 08:43 | XMS_ITS | Encounter Summary ---
Author Organization [facility] [place] [address] Care Team Providers Care Fast Brim Pouncer Name Role Phone None Primary Care Provider Unavailabl e Reason for Visit * Reason Comments Right Shoulder Pain Encounter Details Date Type Department Care Team (Late st Contact Info) Description 04/11/2016 10:30 AM EDT Office [place] [address] Sharan Kingston MD [facility] DR [place] [address] Chronic right shoulder pain Social History Tobacco [...] region documented in this encounter Care Teams Fast Brim Pouncer Relationship Specialty Start Date End Date None None PCP - General 08/09/10 07/22/18 documented as of this encounter
--- OUTSIDE RECORDS SUMMARY | 2024-04-17 08:43 | XMS_ITS | Encounter Summary ---
Author Organization [facility] Address [address] [place] [address] Care Team Providers Care Community Support Associate Name Role Phone Sai Garg MD Primary Care Provi glynn Encounter Details Date Type Department Care Team (Late st Contact Info) Description 06/02/2015 Historical Results Only [facility] Radiology Results [address] [place] [address] Marcelino Riojas MD [address] [place] [address] Social History Tobacco Use Types [...] MD ? CC: ? Transcribed Date/Time: 06/02/2015 (1864) ? Work Over Rig Operator: ? Printed Date/Time: 02/25/2019 (1114) ? [...] Orville Marvin MD CC: Transcribed Date/Time: 06/02/2015 (7749) Work Over Rig Operator: Printed Date/Time: 02/25/2019 (5109) PAGE 1 Signed Report Marcelino Riojas MD [...] CC: ? Transcribed Date/Time: 06/02/2015 (1147) ? Work Over Rig Operator: ? Printed Date/Time: 02/25/2019 (1114) ? [...] Gamaliel Vitale MD CC: Transcribed Date/Time: 06/02/2015 (7067) Work Over Rig Operator: Printed Date/Time: 02/25/2019 (5464) PAGE 1 Signed Report Marcelino Josue Riojas [...] CC: ? Transcribed Date/Time: 06/02/2015 (09) ? Work Over Rig Operator: ? Printed Date/Time: 02/25/2019 (5589) ? PAGE 1 ? Signed Report ? [...] Marvin MD CC: Transcribed Date/Time: 06/02/2015 (09) Work Over Rig Operator: Printed Date/Time: 02/25/2019 (6190) PAGE 1 Signed Report Marcelino Riojas MD [...] CC: ? Transcribed Date/Time: 06/02/2015 (0926) ? Work Over Rig Operator: ? Printed Date/Time: 02/25/2019 (1114) ? [...] Marvin MD CC: Transcribed Date/Time: 06/02/2015 (0926) Work Over Rig Operator: Printed Date/Time: 02/25/2019 (5359) PAGE 1 Signed Report Marcelino Josue Riojas MD IMG DIAGNOSTIC IMAG ING ORDERABLES documented in this encounter Visit Diagnoses Not on filedocumented in this encounter Care Teams Community Support Associate Relationship Specialty Start Date End Date Sai Garg MD [address] [place] [phone] PCP - General 03/12/15 11/04/19 documented as of this encounter
--- OUTSIDE RECORDS SUMMARY | 2024-04-17 08:43 | XMS_ITS | Encounter Summary ---
Author Organization [facility] Address [facility] [place] [address] Care Team Providers Care Elementary School Professional Name Role Phone None Primary Care Provider Unavailabl e Encounter Details Date Type Department Care Team (Latest Contact Info) Description 06/14/2018 - 06/14/2018 12:04 AM EDT Hospital Encounter [place] [address] Jose A Sargent MD [facility] [place] [address] Discharge Disposition: Home Social History Tobacco Use [...] Dispensed Refills Start Date End Date multivitamin Izly-De-BF-Min (THERAPEUTIC-M) 27-0.4 mg Tablet Take 1 tablet [...] MD IMG FILM LIBRARY ORD ERABLES RICH [place], [place] documented in this encounter Visit Diagnoses Not on filedocumented in this encounter Care Teams Elementary School Professional Relationship Specialty Start Date End Date None None PCP - General 08/09/10 07/22/18 documented as of this encounter
--- OUTSIDE RECORDS SUMMARY | 2024-04-17 08:43 | XMS_ITS | Encounter Summary ---
Author Organization [facility] Address [address] [place] [address] Care Team Providers Care Deputy Court Name Role Phone Unavailable Primary Care Provider Unavailabl e Encounter Details Date Type Department Care Team (Late st Contact Info) Description 01/26/2021 Lab Requisition [facility] Pathology & Laboratory Medicine - [facility] [address] [place] [address] Outr Resulting Lab, Provider Social History Tobacco [...] Negative Negative 01/27/2021 10:48 EDT [facility] Comment:New 3rd generation a ssay in use 02/25/2020 Blood VENOUS BLOOD / Unknown 01/25/2021 10:45 EDT 01/26/2021 15:54 EDT Provider Outr Resulting Lab IMMUNOLOGY A ND SEROLOGY ORDERABLES [facility] [address] [place] [address] documented in this encounter Visit Diagnoses Not on filedocumented in this encounter
--- OUTSIDE RECORDS SUMMARY | 2024-04-17 08:43 | XMS_ITS | Encounter Summary ---
Author Organization [facility] [place] [address] Care Team Providers Care Opal Miner Name Role Phone None Primary Care Provider Unavailabl e Encounter Details Date Type Department Care Team (Late st Contact Info) Description 02/09/2016 - 02/09/2016 11:59 PM EDT Hospital Encounter [place] [address] Tammy Farley MD [facility] [address] [place] [address] Pain Discharge Disposition: Home Social History Tobacco [...] DX Shoulder (02/09/2016 12:00 AM EDT) Narrative [facility] - 02/10/2016 9:35 AM EDT This exam is for storage only and is auto-finalizing. Tammy Farley MD [facility] FILM LIBRARY ORD ERABLES [place], [place] documented in this encounter Visit Diagnoses Diagnosis Pain Generalized pain documented in this encounter Care Teams Opal Miner Relationship Specialty Start Date End Date None None PCP - General 08/09/10 07/22/18 documented as of this encounter
--- OUTSIDE RECORDS SUMMARY | 2024-04-17 08:43 | XMS_ITS | Encounter Summary ---
Author Organization [facility] [place] [address] Care Team Providers Care Salesperson Children'S Shoes Name Role Phone None Primary Care Provider Unavailabl e Reason for Visit * Reason Onset Date Comments Results 03/28/2016 Encounter Details Date Type Department Care Team (Late st Contact Info) Description 03/28/2016 [place]phone [place] [phone] Braydon Carrillo MD [facility] [address] [place] [address] Results Social History Tobacco Use Types Packs/Day [...] Best number to reach the patient # [phone], requesting to fax results as well # [phone] attn howie I will forward your message to the team and someone will follow up with you within 48 hours. documented in this encounter Plan of Treatment Not on file documented as of this encounter Visit Diagnoses Not on filedocumented in this encounter Care Teams Salesperson Children[employer]S Shoes Relationship Specialty Start Date End Date None None PCP - General 08/09/10 07/22/18 documented as of this encounter
--- OUTSIDE RECORDS SUMMARY | 2024-04-17 08:43 | XMS_ITS | Encounter Summary ---
[place] [address] Care Team Providers Care Information And Referral Director Name Role Phone None Primary Care Provider Unavailabl e Reason for Referral * Diagnostic Test (Routine) - Closed Specialty Diagnoses / Procedures Referred By Contac t Referred To Contact Radiology Diagnoses Acute pain of right shoulder Procedures MRI Shoulder Right WO Contrast (GENERIC) Edgar Escobar MD [facility] [place] [address] [place] [address] Referral ID Status Reason Start Date Expiration Date V isits Requested Visits Authorized [id number] Closed Specialty Service Requested 03/16/2016 06/14/2016 1 1 Reason for Visit * Reason Comments Right Shoulder Pain * Consultation (Routine) - Closed Specialty Diagnoses / Procedures Referred By Contac t Referred To Contact Orthopaedics Diagnoses Chronic right shoulder pain Chronic right shoulder pain Alpesh Orona MD [facility] [place] [address] [facility]opa[facility]ics [address] [place] [address] Referral ID Status Reason Start Date Expiration Date V isits Requested Visits Authorized [id number] Closed Consult, Test & Treat 02/24/2016 02/23/2017 1 1 Encounter Details Date Type Department Care Team (Late st Contact Info) Description 03/03/2016 1:00 PM EDT Office [place] [address] Braydon Carrillo MD [facility] [place] [address] Acute pain of right shoulder Social History [...] has strength 5/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 Wrist extension, wrist flexion, elbow extension, elbow [...] shoulder documented in this encounter Care Teams Information And Referral Director Relationship Specialty Start Date End Date None None PCP - General 08/09/10 07/22/18 documented as of this encounter
--- OUTSIDE RECORDS SUMMARY | 2024-04-17 08:43 | XMS_ITS | Encounter Summary ---
Author Organization [facility] [place] [address] Care Team Providers Care Driller Brake Lining Name Role Phone None Primary Care Provider Unavailabl e Reason for Referral * Diagnostic Test (Routine) - Closed Specialty Diagnoses / Procedures Referred By Contac t Referred To Contact Radiology Diagnoses Acute pain of right shoulder Procedures MRI Shoulder Right WO Contrast (GENERIC) Edgar Escobar MD [facility] [address] [place] [address] [place] [address] Referral ID Status Reason Start Date Expiration Date V isits Requested Visits Authorized [id number] Closed Specialty Service Requested 03/16/2016 06/14/2016 1 1 Reason for Visit * Diagnostic Test (Routine) - Closed Specialty Diagnoses / Procedures Referred By Contac t Referred To Contact Radiology Diagnoses Acute pain of right shoulder Procedures MRI Shoulder Right WO Contrast (GENERIC) Edgar Escobar MD [facility] [place] [address] [place] [address] Referral ID Status Reason Start Date Expiration Date V isits Requested Visits Authorized [id number] Closed Specialty Service Requested 03/16/2016 06/14/2016 1 1 Encounter Details Date Type Department Care Team (Latest Contact Info) Description 03/23/2016 6:59 AM EDT - 03/23/2016 11:59 PM EDT Hospital [place] [address] Braydon Carrillo MD [facility] DR ORTHOPAEDIC [place] [address] Acute pain of right shoulder Discharge Disposition: [...] shoulder documented in this encounter Care Teams Driller Brake Lining Relationship Specialty Start Date End Date None None PCP - General 08/09/10 07/22/18 documented as of this encounter
--- OUTSIDE RECORDS SUMMARY | 2024-04-17 08:43 | XMS_ITS | Encounter Summary ---
Author Organization [facility] Address [address] [place] [address] Care Team Providers Care Lactation Specialist Name Role Phone Erich Sethi MD Primary Care Provider [phone] Sai Garg MD Primary Care Provi glynn Encounter Details Date Type Department Care Team (Late st Contact Info) Description 01/11/2015 Historical Results Only [facility] Radiology Results [address] [place] [address] Ravi Schwartz MD [address] [place] [phone] Social History Tobacco Use Types Packs/Day Years [...] CC: ? Transcribed Date/Time: 01/11/2015 (0128) ? Sas Sql Developer: ? Printed Date/Time: 02/18/2019 (2239) ? PAGE 1 ? Signed Report ? Procedure Note Orvlile Marvin MD - 07/22/2019 EXAM: RADIOLOGY/LUMBAR SPINE [...] Marvin MD CC: Transcribed Date/Time: 01/11/2015 (0128) Sas Sql Developer: Printed Date/Time: 02/18/2019 (3128) PAGE 1 Signed Report Ravi Schwartz MD IMG DIAGNOSTIC IMAGI NG ORDERABLES documented in this encounter Visit Diagnoses Not on filedocumented in this encounter Care Teams Lactation Specialist Relationship Specialty Start Date End Date Erich Sethi MD [address] [place] [phone] PCP - General 11/12/14 03/11/15 Sai Garg MD [address] [place] [phone] PCP - General 03/12/15 11/04/19 documented as of this encounter
--- OUTSIDE RECORDS SUMMARY | 2024-04-17 08:43 | XMS_ITS | Encounter Summary ---
Author Organization [facility] Address [address] [place] [address] Care Team Providers Care Marketing Graphics Specialist Name Role Phone Sai Garg MD Primary Care Provi glynn Encounter Details Date Type Department Care Team (Late st Contact Info) Description 05/12/2015 Historical Results Only [facility] Radiology Results [address] [place], [place] [address] Sai Garg MD [address] [place] [phone] Social History Tobacco Use Types Packs/Day [...] on 05/18/2015 (1509): ? Ordering Physician: Exam [id number] ??CT/SECONDARY READ CAT SCAN EXAM ? Was Kg Serna MD ?Reported By: Gamaliel Vitale MD ? CC: ? Transcribed Date/Time: 05/14/2015 (1513) ? Curing Bin Operator: JENNY ? Printed Date/Time: 02/25/2019 (1113) ? [...] the changes below by ANTONY, on 05/18/2015 (5805): Ordering Physician: Exam [id number] CT/SECONDARY READ CAT SCAN EXAM Was Kg Serna MD Reported By: Gamaliel Vitale MD CC: Transcribed Date/Time: 05/14/2015 (151) Curing Bin Operator: JENNY Printed Date/Time: 02/25/2019 (0392) PAGE 1 Signed Report Sai Hernández MD [facility] documented in this encounter Visit Diagnoses Not on filedocumented in this encounter Care Teams Marketing Graphics Specialist Relationship Specialty Start Date End Date Sai Garg MD [address] [place] [phone] PCP - General 03/12/15 11/04/19 documented as of this encounter
--- OUTSIDE RECORDS SUMMARY | 2024-04-17 08:43 | XMS_ITS | Encounter Summary ---
Author Organization [facility] Address [address] [place] [address] Care Team Providers Care Marine Electrician Name Role Phone Sai Garg MD Primary Care Provi glynn Encounter Details Date Type Department Care Team (Late st Contact Info) Description 05/08/2015 Historical Results Only [facility] Radiology Results [address] [place] [address] Fredo Moffett MD [address] [place] [address] Social History Tobacco Use Types [...] MD ? CC: ? Transcribed Date/Time: 05/08/2015 (5629) ? Bottling Line Attendant: ? Printed Date/Time: 02/25/2019 (1113) ? PAGE [...] Claude Allen MD CC: Transcribed Date/Time: 05/08/2015 (4315) Bottling Line Attendant: Printed Date/Time: 02/25/2019 (4843) PAGE 1 Signed Report Fredo Moffett MD IMG CT ORDERABLES documented in this encounter Visit Diagnoses Not on filedocumented in this encounter Care Teams Marine Electrician Relationship Specialty Start Date End Date Sai Garg MD [address] [place] [phone] PCP - General 03/12/15 11/04/19 documented as of this encounter
--- OUTSIDE RECORDS SUMMARY | 2024-04-17 08:43 | XMS_ITS | Encounter Summary ---
Author Organization [facility] Address [address] [place] [address] Care Team Providers Care Senior Research Consultant Name Role Phone Sai Garg MD Primary Care Provi glynn Encounter Details Date Type Department Care Team (Late st Contact Info) Description 06/01/2015 Historical Results Only [facility] Radiology Results [address] [place] [address] Greta Gonzalez, DO [address] [place] [address] Social History Tobacco Use Types [...] IN OTHER VENDOR SYSTEM 06/01/2015 ?Reported By: Gamaleil Vitale MD ? CC: ? Transcribed Date/Time: 06/01/2015 (1539) ? Director Of Search Engine Optimization: ? Printed Date/Time: 02/25/2019 (1114) ? PAGE [...] Vitale MD CC: Transcribed Date/Time: 06/01/2015 (1530) Director Of Search Engine Optimization: Printed Date/Time: 02/25/2019 (3791) PAGE 1 Signed Report Greta Gonzalez DO IMG MRI ORDERABLES documented in this encounter Visit Diagnoses Not on filedocumented in this encounter Care Teams Senior Research Consultant Relationship Specialty Start Date End Date Sai Garg MD [address] [place] [phone] PCP - General 03/12/15 11/04/19 documented as of this encounter
--- OUTSIDE RECORDS SUMMARY | 2024-04-17 08:43 | XMS_ITS | Encounter Summary ---
Author Organization [facility] Address [facility] [place] [address] Care Team Providers Care Speech Language Specialist Name Role Phone None Primary Care Provider Unavailabl e Encounter Details Date Type Department Care Team (Latest Contact Info) Description 06/14/2018 6:49 PM EDT - 06/14/2018 11:59 PM EDT Hospital Encounter Radiology Library at [facility] [place] [address] Discharge Disposition: Home Social History Tobacco Use [...] Take 100 mg by mouth nightly. multivitamin Tlnw-Nv-MN-Min (THERAPEUTIC-M) 27-0.4 mg Tablet Take 1 tablet [...] on filedocumented in this encounter Care Teams Speech Language Specialist Relationship Specialty Start Date End Date None None PCP - General 08/09/10 07/22/18 documented as of this encounter
--- OUTSIDE RECORDS SUMMARY | 2024-04-17 08:43 | XMS_ITS | Encounter Summary ---
Author Organization [facility] Address [address] [place] [address] Care Team Providers Care Air Conditioning Unit Tester Name Role Phone Sai Garg MD Primary Care Provi glynn Encounter Details Date Type Department Care Team (Late st Contact Info) Description 04/19/2015 Historical Results Only [facility] Radiology Results [address] [place] [id number] Ravi Schwartz MD [address] [place] [address] Social History Tobacco Use Types [...] CC: ? Transcribed Date/Time: 04/19/2015 (1602) ? Speech And Hearing Director: ? Printed Date/Time: 02/25/2019 (1113) ? PAGE [...] Gamaliel Vitale MD CC: Transcribed Date/Time: 04/19/2015 (4102) Speech And Hearing Director: Printed Date/Time: 02/25/2019 (1113) PAGE 1 Signed [...] CC: ? Transcribed Date/Time: 04/19/2015 (1314) ? Speech And Hearing Director: ? Printed Date/Time: 02/25/2019 (1113) ? PAGE [...] Orville Marvin MD CC: Transcribed Date/Time: 04/19/2015 (3744) Speech And Hearing Director: Printed Date/Time: 02/25/2019 (5029) PAGE 1 Signed Report Ravi Schwartz MD IMG DIAGNOSTIC IMAGI NG ORDERABLES documented in this encounter Visit Diagnoses Not on filedocumented in this encounter Care Teams Air Conditioning Unit Tester Relationship Specialty Start Date End Date Sai Garg MD [address] [place] [phone] PCP - General 03/12/15 11/04/19 documented as of this encounter
--- OUTSIDE RECORDS SUMMARY | 2024-04-17 08:43 | XMS_ITS | Encounter Summary ---
Author Organization Health system Address [address] [place] [address] Care Team Providers Care Job Estimator Name Role Phone Sai Garg MD Primary Care Provi glynn Encounter Details Date Type Department Care Team (Late st Contact Info) Description 05/21/2015 Historical Results Only [facility] Radiology Results [address] [place] [address] Bhavesh Chi MD [address] [place] [address] Social History Tobacco Use Types [...] CC: ? Transcribed Date/Time: 05/21/2015 (1208) ? Expert Medical Writer: ? Printed Date/Time: 02/25/2019 (1113) ? PAGE [...] Lo MD CC: Transcribed Date/Time: 05/21/2015 (1208) Expert Medical Writer: Printed Date/Time: 02/25/2019 (5746) PAGE 1 Signed Report Bhavesh Chi MD IMG DIAGNOSTIC I MAGING ORDERABLES documented in this encounter Visit Diagnoses Not on filedocumented in this encounter Care Teams Job Estimator Relationship Specialty Start Date End Date Sai Garg MD [address] [place] [phone] PCP - General 03/12/15 11/04/19 documented as of this encounter
--- OUTSIDE RECORDS SUMMARY | 2024-04-17 08:43 | XMS_ITS | Encounter Summary ---
[place] [address] Care Team Providers Care Receiving Clerk Name Role Phone None Primary Care Provider Unavailabl e Encounter Details Date Type Department Care Team (Late st Contact Info) Description 03/08/2016 Orders Only [place] [phone] Sherita Morley Social History Tobacco Use Types [...] on filedocumented in this encounter Care Teams Receiving Clerk Relationship Specialty Start Date End Date None None PCP - General 08/09/10 07/22/18 documented as of this encounter
--- OUTSIDE RECORDS SUMMARY | 2024-04-17 08:43 | XMS_ITS | Encounter Summary ---
Author Organization [facility] Address [address] [place] [address] Care Team Providers Care Claims Counsel Name Role Phone Sai Garg MD Primary Care Provi glynn Encounter Details Date Type Department Care Team (Late st Contact Info) Description 04/08/2015 Historical Results Only [facility] Radiology Results [address] [place] [address] Marcelino Riojas MD [address] [place] [address] Social History Tobacco Use Types [...] CC: ? Transcribed Date/Time: 04/08/2015 (2020) ? Top Dyeing Machine Tender: ? Printed Date/Time: 02/24/2019 (1913) ? PAGE [...] Grigsby MD CC: Transcribed Date/Time: 04/08/2015 (2020) Top Dyeing Machine Tender: Printed Date/Time: 02/24/2019 (1913) PAGE 1 Signed [...] CC: ? Transcribed Date/Time: 04/08/2015 (2020) ? Top Dyeing Machine Tender: ? Printed Date/Time: 02/24/2019 (1913) ? PAGE [...] Grigsby MD CC: Transcribed Date/Time: 04/08/2015 (2020) Top Dyeing Machine Tender: Printed Date/Time: 02/24/2019 (1912) PAGE 1 Signed [...] CC: ? Transcribed Date/Time: 04/08/2015 (2019) ? Top Dyeing Machine Tender: [email or web address] ? Printed Date/Time: 02/24/2019 (1914) ? [...] Grigsby MD CC: Transcribed Date/Time: 04/08/2015 (2019) Top Dyeing Machine Tender: Printed Date/Time: 02/24/2019 (7594) PAGE 1 Signed Report Marcleino Riojas MD IMG DIAGNOSTIC IMAG ING ORDERABLES [...] CC: ? Transcribed Date/Time: 04/08/2015 (1950) ? Top Dyeing Machine Tender: VRAD ? Printed Date/Time: 02/24/2019 (191) ? [...] Grigsby MD CC: Transcribed Date/Time: 04/08/2015 (1950) Top Dyeing Machine Tender: Printed Date/Time: 02/24/2019 (191) PAGE 1 Signed [...] CC: ? Transcribed Date/Time: 04/08/2015 (194) ? Top Dyeing Machine Tender: ? Printed Date/Time: 02/24/2019 (191) ? PAGE [...] Grigsby MD CC: Transcribed Date/Time: 04/08/2015 (1945) Top Dyeing Machine Tender: Printed Date/Time: 02/24/2019 (191) PAGE 1 Signed Report Marcelino Josue Riojas MD IMG CT ORDERABLES documented in this encounter Visit Diagnoses Not on filedocumented in this encounter Care Teams Claims Counsel Relationship Specialty Start Date End Date Sai Garg MD [address] [place] [phone] PCP - General 03/12/15 11/04/19 documented as of this encounter
--- OUTSIDE RECORDS SUMMARY | 2024-04-17 08:43 | XMS_ITS | Referral Summary ---
Author Organization [facility] Address [address] [place] [address] Care Team Providers Care Cadastral Surveyor Name Role Phone Unavailable Primary Care Provider [...] bipolar GERD (gastroesophageal reflux disease) 5 Seizures ([facility]) 02/23/2015 NSTEMI (non-ST elevated myocardial infarction) ( [facility]) 01/20/2014 ETOH abuse 01/20/2014 NSTEMI (non-ST elevated myocardial infarction) ( [facility]) 01/02/2014 Chronic right shoulder pain 07/21/2012 [...] Cocaine Metabolites, Ur Negative screen. [facility] Comment: Confirmation testing available upon request. Suitable for medical purposes only. Will not detect all drugs within class. Cutoff = 300 ng/ml Specimen type is urine. Urine specimen (specimen) URINE / Unknown 04/03/2014 10:12 EDT 04/03/2014 10:23 EDT Erich Delgado MD URINALYSIS ORDERABLE S Performing Organization Address [facility] de Phone Number [facility] [address] [place] [address] * LIPID PROFILE (INCLUDES CHOLESTEROL, TRIGLYCERIDES, HDL, LDL) (01/19/2014 5:40 EDT) Cholesterol 162 mg/dl [facility] Comment: Desirable:<200 Borderline High:200-239 High:>nm=602 Triglycerides 89 mg/dl [facility] Comment: Normal:<150 Borderline High:150-199 High:200-499 Very High:>qg=212 HDL 102 mg/dl [facility] Comment: Low:<40 Normal:40-60 Desirable: >60 LDL, Calculated 42 mg/dl [facility] Comment: Optimal:<100 Near Optimal:100-129 Borderline High:130-159 High:160-189 Very High:>kn=658 Chol/HDL Ratio 1.6 [facility] Fasting? Unknown [facility] Non HDL Cholesterol 60 mg/dl [facility] Comment: Desirable:<130 Borderline:130-159 High: 160-189 Very High: >rf=218 Blood specimen (specimen) 01/19/2014 5:40 EDT 01/19/2014 5:55 EDT Sridevi Alvarez MD CHEMISTRY & BLOOD GA S ORDERABLES Performing Organization Address [facility] de Phone Number [facility] [address] [place] [address] from Last 3 Months or Most Recently Relevant to Health Maintenance Advance Directives For more information, please contact: [phone] * Full Code (Latest Code Status on [...]
--- OUTSIDE RECORDS SUMMARY | 2024-04-17 08:43 | XMS_ITS | Encounter Summary ---
Author Organization [facility] Address [address] [place] [address] Care Team Providers Care Double Spindle Shaper Operator Name Role Phone Erich Sethi MD Primary Care Provider [phone] Sai Garg MD Primary Care Provi glynn Encounter Details Date Type Department Care Team (Late st Contact Info) Description 03/11/2015 Historical Results Only [facility] Radiology Results [address] [place] [address] Fredo Moffett MD [address] [place] [address] Social History Tobacco Use Types Packs/Day Years [...] CC: ? Transcribed Date/Time: 03/11/2015 (1840) ? Dimensional Integration Engineer: ? Printed Date/Time: 02/24/2019 (1912) ? PAGE [...] Grigsby MD CC: Transcribed Date/Time: 03/11/2015 (1840) Dimensional Integration Engineer: Printed Date/Time: 02/24/2019 (1912) PAGE 1 Signed Report Fredo Moffett MD IMG DIAGNOSTIC IMAGI NG ORDERABLES documented in this encounter Visit Diagnoses Not on filedocumented in this encounter Care Teams Double Spindle Shaper Operator Relationship Specialty Start Date End Date Erich Sethi MD [address] [place] [phone] PCP - General 11/12/14 03/11/15 Sai Garg MD [address] [place] [phone] PCP - General 03/12/15 11/04/19 documented as of this encounter
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
--- OUTSIDE RECORDS SUMMARY | 2024-04-17 08:43 | XMS_ITS | Encounter Summary ---
Author Organization [facility] Address [address] [place] [address] Care Team Providers Care Professional Bass Fisher Name Role Phone Sai Garg MD Primary Care Provi glynn Encounter Details Date Type Department Care Team (Late st Contact Info) Description 05/20/2015 Historical Results Only [facility] Radiology Results [address] [place] [id number] Farnaz Browning, SENIOR ARCHITECT ENP [address] [place] [phone] Social History Tobacco Use Types [...] CC: ? Transcribed Date/Time: 05/20/2015 (2010) ? Vending Manager: ? Printed Date/Time: 02/25/2019 (0554) ? PAGE 1 ? Signed Report ? [...] Grigsby MD CC: Transcribed Date/Time: 05/20/2015 (2010) Vending Manager: Printed Date/Time: 02/25/2019 (2737) PAGE 1 Signed Report Farnaz Browning SENIOR ARCHITECT ENP IMG DIAGNOSTIC [place] GING ORDERABLES documented in this encounter Visit Diagnoses Not on filedocumented in this encounter Care Teams Professional Bass Fisher Relationship Specialty Start Date End Date Sai Garg MD [address] [place] [phone] PCP - General 03/12/15 11/04/19 documented as of this encounter
--- OUTSIDE RECORDS SUMMARY | 2024-04-17 08:43 | XMS_ITS | Encounter Summary ---
Author Organization [facility] Address [address] [place] [address] Care Team Providers Care Twisting Frame Fixer Name Role Phone Ercih Sethi MD Primary Care Provider +1 [phone] Encounter Details Date Type Department Care Team (Latest Contact Info) Description 03/11/2015 11:58 EDT - 03/11/2015 23:59 EDT Hospital Encounter [facility] [address] [place] [address] Unknown, Provider, Discharge Disposition: Home or Self [...] Code Departure Means Destination Home or Self Alf documented in this encounter Plan of Treatment Not on file documented as of this encounter Visit Diagnoses Not on filedocumented in this encounter Care Teams Twisting Frame Fixer Relationship Specialty Start Date End Date Erich Sethi MD [address] [place] [phone] PCP - General 11/12/14 03/11/15 documented as of this encounter
--- OUTSIDE RECORDS SUMMARY | 2024-04-17 08:43 | XMS_ITS | Encounter Summary ---
Author Organization [facility] Address [facility] [place] [address] Care Team Providers Care Bioinformatics Team Member Name Role Phone None Primary Care Provider Unavailabl e Encounter Details Date Type Department Care Team (Late st Contact Info) Description 03/03/2016 Orders [place] [phone] Braydon Carrillo MD [facility] [place] [address] Social History Tobacco Use Types Packs/Day Years [...] on filedocumented in this encounter Care Teams Bioinformatics Team Member Relationship Specialty Start Date End Date None None PCP - General 08/09/10 07/22/18 documented as of this encounter
--- OUTSIDE RECORDS SUMMARY | 2024-04-17 08:43 | XMS_ITS | Encounter Summary ---
Author Organization [facility] Address [address] [place] [address] Care Team Providers Care Cooker Cleaner Name Role Phone Sia Garg MD Primary Care Provi glynn Encounter Details Date Type Department Care Team (Latest Contact Info) Description 06/01/2015 9:19 EDT - 06/01/2015 23:59 EDT Hospital Encounter [facility] [address] [place] [address] Unknown, Provider, Discharge Disposition: Home or Self [...] Code Departure Means Destination Home or Self Senior Living documented in this encounter Plan of Treatment Not on file documented as of this encounter Visit Diagnoses Not on filedocumented in this encounter Care Teams Cooker Cleaner Relationship Specialty Start Date End Date Sai Garg MD [address] [place] [phone] PCP - General 03/12/15 11/04/19 documented as of this encounter
--- OUTSIDE RECORDS SUMMARY | 2024-04-17 08:43 | XMS_ITS | Encounter Summary ---
Author Organization [facility] Address [address] [place] [address] Care Team Providers Care District Sales Coordinator Name Role Phone Erich Sethi MD Primary Care Provider +1 [phone] Sai Garg MD Primary Care Provi glynn Encounter Details Date Type Department Care Team (Late st Contact Info) Description 01/10/2015 Historical Results Only [facility] Radiology Results [address] [place] [address] Ravi Schwartz MD [address] [place] [phone] Social History Tobacco Use Types Packs/Day Years [...] MD ? CC: ? Transcribed Date/Time: 05/04/2015 (3349) ? Dry Kiln Loader: JENNY ? Printed Date/Time: 02/18/2019 (3548) ? PAGE 1 ? Signed Report ? [...] Orville Marvin MD CC: Transcribed Date/Time: 05/04/2015 (5421) Dry Kiln Loader: JENNY Printed Date/Time: 02/18/2019 (5204) PAGE 1 Signed Report Lily Flores MD IMG DIAGNOSTIC IMAGING ORDERABLES documented in this encounter Visit Diagnoses Not on filedocumented in this encounter Care Teams District Sales Coordinator Relationship Specialty Start Date End Date Erich Sethi MD [address] [place] [phone] PCP - General 11/12/14 03/11/15 Sai Garg MD [address] [place] [phone] PCP - General 03/12/15 11/04/19 documented as of this encounter
--- OUTSIDE RECORDS SUMMARY | 2024-04-17 08:43 | XMS_ITS | Encounter Summary ---
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 Name Role Phone None Primary Care Provider Unavailabl e Reason for Visit * Reason Comments Hospital Transfer Ruptured Spleen * Auth/Cert Specialty Diagnoses / Procedures Referred By Contac t Referred To Contact Diagnoses Splenic laceration Procedures EMERGENCY IPI Referral ID Status Reason Start Date Expiration Date Visits Re quested Visits Authorized [id number] 1 1 Encounter Details Date Type Department Care Team (Latest Contact Info) Description 06/14/2018 5:53 PM EDT - 06/18/2018 3:19 PM EDT Hospital Encounter 2 [place] [address] Shahid Silver MD [facility] [place] [address] Joshua Jasimne MD [facility] [place] [address] Laceration of spleen, initial encounter; Chest pain, [...] a daily ASA 81mg. He went to [facility] for evaluation where laboratory studies were remarkable for leukocytosis to 12 and a hemoglobin of 14. Coag studies were within normal limits. CT chest/abdomen/pelvis was remarkable for a splenic laceration and possible liver laceration. He was transferred to [facility] for further care. On arrival he washemodynamically [...] with a angioembolization which will be performed [facility] Course: 06/15/2018: No acute events overnight. [...] mouth daily. 10 mg Refills: 0 multivitamin Zcpy-If-VM-Min 27-0.4 mg Tab Commonly known as: THERAPEUTIC-M [...] mouth every 30 days. Generic drug: ergocalciferol 82776 Units Refills: 0 Disposition: Home Scheduled Appointments: The following appointments have been scheduled on your behalf: Future Appointments Date Time Provider Department Center 07/23/2018 1:00 PM Alisson Munoz APRN [facility] Outpatient Services/Studies: CT Abdomen & Pelvis w Contrast Standing Status: Future Standing Exp. Date: 01/15/19 Question Response Notes Where will study be performed? [facility] [120] Reason for exam and clinical [...] reach the office please call them at [phone]. Narcotics: You may be given a prescription [...] 1. You will have follow-up appointments at [facility] as indicated in the ???Future Appointments and [...] on the next business day. Please call [phone] if you do not hear from us by that time, as your timely follow-up is very important to us. Your care was managed by the Trauma and Acute Care Surgery Team at [facility]. If you have any questions or concerns, please feel free to contact us. Provider Contact Information: General Surgery: [facility] (after business hours): CC: Tammy Farley Primary Care Physician: None No future appointments. General Instructions None Your care was managed by the Trauma and Acute Care Surgery Team at [facility]. If you have any questions or concerns, please feel free to contact us. Provider Contact Information: General Surgery Clinic: Nurses line for questions: [facility] (after business hours): CC: Spontaneous splenic artery laceration diagnosis for which pt was admitted None Susie Daniel Munoz, DARIANA Signed: Brent Souza MD Department of Surgery 06/18/2018 Acute Care Surgery Pager [phone] documented in this encounter Discharge Instructions * [...] reach the office please call them at [phone]. Narcotics: You may be given a prescription [...] 1. You will have follow-up appointments at [facility] as indicated in the ???Future Appointments and [...] on the next business day. Please call [phone] if you do not hear from us by that time, as your timely follow-up is very important to us. Your care was managed by the Trauma and Acute Care Surgery Team at [facility]. If you have any questions or concerns, please feel free to contact us. Provider Contact Information: General Surgery: [facility] (after business hours): CC: Tammy Farley Primary [...] Take 100 mg by mouth nightly. multivitamin Fdhd-Vb-EK-Min (THERAPEUTIC-M) 27-0.4 mg Tablet Take 1 tablet [...] necessary supplies. Pt d/c'd back to the [facility] assisted living [facility] at [facility] wheelchair pushed by 2 Donnellson staff. * Mariaa Tirado MSW - 06/18/2018 1:41 PM EDT Discharge Planning: O: Requested by team to assist with discharge transportation. RCT [phone] will pick patient upat the [facility] at 3pm. 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 P: Please have patient at the [facility] at 3pm for spanish moss picker. No further social work interventions at [...] (IR) Brent Souza MD 06/18/18 Team Pager [phone] * Db Paz MD - 06/17/2018 1:31 PM EDT Trauma Service - Progress Note Patient Name: Jimenez Barkley : [id number] MR#: [id number] 06/14/2018 Hospital Day 3 days Problem List: [...] (IR) Brent Souza MD 06/17/18 Team Pager [phone] * Edgar Dumont - 06/16/2018 2:16 PM EDT Clinical Sales Consultant Encounter Note Patient Name: Jimenez Barkley : [id number] MR#: [id number] Admit Date: 06/14/2018 5:53 PM Hospital Day 2 days Narrative: Visited to introduce and assess acceptance of Clinical Sales Consultant services. Pt was awake, alert, oriented and in bed and welcoming to visit. Assessment: Patient coping positively with stresses of illness/hospitalization at this time. Pt says that he is hoping to get better and taking one day at time. Pt shared that his family is living inother states. Intervention and Outcome: Provided emotional, spiritual support and encouraging presence. Clinical Sales Consultant services accepted.Conversation to build trusting relationship.Provided prayer.Provided [...] Non tender, non distended Vasc ACCESS R FACILITIES OFFICER dressing C/D/I , no hematoma, 2+ pulses ~ R FACILITIES OFFICER/ R DPA Intake/Output Summary (Last 24 hours) [...] Surgery Resident Inpatient Progress Note ID: Jimenez Barlkey is 63 yo male with PMH CAD, [...] of : 1955 AGE 63 y.o. Address: [address] [place] [address] (home) Mobile: No relevant phone numbers on [...] needed for Pain. Yes PROVIDER, HISTORICAL multivitamin Okse-Io-IE-Min (THERAPEUTIC-M) 27-0.4 mg Tablet Take 1 tablet [...] Encounter Medication Sig Dispense Refill ??? multivitamin Fbra-Xn-GF-Min (THERAPEUTIC-M) 27-0.4 mg Tablet Take 1 tablet [...] Jasmine MD - 06/14/2018 6:24 PM EDT [facility] Department of Surgery Admission History and Physical [...] a daily ASA 81mg. He went to [facility] for evaluation where laboratory studies were remarkable for leukocytosis to 12 and a hemoglobinof 14. Coag studies were within normal limits. CT chest/abdomen/pelvis was remarkable for a spleniclaceration and possible liver laceration. He was transferred to [facility] for further care. On arrival he was hemodynamically normal and complaining of LUQ pain. PMH: COPD HTN HLD CAD PSH: Tonsillectomy HOME MEDICATIONS: No current facility-administered medications on file prior to encounter. Current Outpatient Prescriptions on File Prior to Encounter Medication Sig Dispense Refill ??? multivitamin Dlrx-Gr-LI-Min (THERAPEUTIC-M) 27-0.4 mg Tablet Take 1 tablet [...] -Dispo: ISCU status Juli Mejia MD Pager [phone] 06/14/2018 8:55 PM SURGICAL ATTENDING NOTE: Pt [...] and the C2 exchanged for an angled two needle machine operator 2 catheter. A6 mm Amplatzer plug was [...] PMH of tobacco use, HTN, history of [place], COPD with no reported PSH per patient [...] d/c tomorrow 06/18/18 INDIVIDUALIZED FALL PREVENTION INTERVENTIONS: [place] Risk ? Patient-specific fall risk factors per [...] 30 Days: yes pt was transferred from [facility] on 06/13/18 Anticipated Length Of Stay (If known): Expected Length of Hospitalization: 3 Current Decision-Making Capacity: has capacity to make his own decisions. Advance Care Planning: none. Pt was not interested. Did review [place] surrogacy law with pt. Pt states the only family he has in his life is his elderly mother who lives in [place], [place]. Current Coping/Education/Information Needs: Pt anxious to be discharged out of the hospital. Current Functional Ability: Independent with mobility. Does not require assistance with ADL's. Functional Status Prior to Admission: Independent with mobility and ADL's. Home Environment: Pt lives at the [facility] in [place], [place] it is an assisted living facility. His apartment is on the first floor. Social & Family Supports/Community Resources: Pt states he only has his mother that he can count on Behavioral Health History: Pt being treated for mood disorder and is being followed by PCP at the [facility]. Substance Use/Abuse: smokes tobacco, drinks a few beers a week. Pt reports using cannabis for pain relief. Other Pertinent/Service Specific Information: Pt will need a Medicaid ride home. Pt [place] medicaid. Health/Prescription Coverage: Primary Insurance: [place]ICAID [place] Secondary Insurance: N/A Prescription Coverage: [place] primary care plus Preferred Pharmacy: the [facility] Assisted living Other: Primary Care Provider: none Patient/Caregiver Goals of Treatment: To return home Potential Needs for Transition of Care: Rehab/SNF: not indicated Home Health: not indicated DME: not indicated Dialysis: not indicated Community Resources: Transportation: [place] medicaid Other: Anticipated Barriers to Discharge/Special Considerations: none Assessment: Pt pleasant and cooperative during the interview. Pt is anxious to get home. Possible discharge 06/18/18 or 06/19. Plan: A member of the Care Management team will continue to monitor progress, follow for continuityof care and assist with transition of care planning. Andreia Arrington RN Pager: [phone] * Plan of Care - Latha Alatorre [...] PO intake ? INDIVIDUALIZED FALL PREVENTION INTERVENTIONS: [place] Risk ? Patient-specific fall risk factors per [...] were not included. Infiltration/Extravasation Scale Jimenez Barkley [id number] IS81/IS81-A Infiltration appearance: Left forearm, Infiltrate of [...] infiltration/extravasation Name of MD contacted paged at [phone]. 8:26 AM Team arrived at 0844 to see patient and recd page. Aware of Infiltrate and plan of care. Name of RN contacted NING French on unit and aware of infiltrate, removal and plan of care. 8:26 AM Name of Pharmacist if consulted N/A 8:26 AM Plastics Provider contacted: no 8:26 AM Name of Plastics MD (if consulted) HAIRSPRING ASSEMBLER CARING FOR THIS PATIENT WILL CONTINUE TO [...] POCT GLUCOSE Routine 06/15/2018 12:26 AM EDT PACKAGING TECHNICIAN SCAN 06/15/2018 12:00 AM EDT IR ARTERIAL [...] AM EDT) WBC 13.9(H) 4.0 - 9.5 x10(3)/[facility] LABORATORY RBC 2.77(L) 4.58 - 5.54 x10(6)/[facility] LABORATORY Hemoglobin 8.6(L) 13.7 - 16.5 gm/dL [facility] Hematocrit 25.6(L) 40.5 - 48.5 % [facility] MCV 92.4 82.9 - 93.1 fL [facility] MCH 31.0 27.5 - 32.1 pg [facility] MCHC 33.6 32.0 - 35.7 gm/dL [facility] Platelets 215 145 - 357 x10(3)/[facility] LABORATORY RDWSD 46.0(H) 36.0 - 45.0 [facility] LABORATORY RDWCV 13.5 11.4 - 13.8 % [facility] MPV 9.6 7.6 - 12.9 [facility] LABORATORY nRBC % Auto 0.1 % [facility] nRBC Abs Auto 0.020(H) 0.000 - 0.000 x10(3)/[facility] LABORATORY Blood specimen (specimen) 06/18/2018 6:05 AM EDT 06/18/2018 6:15 AM EDT Narrative Resulting Agency Comment Spec In Lab Joshua Jasmine MD HEMATOLOGY ORDERABLE S [facility] [place] [address] * (ABNORMAL) Basic Metabolic Panel (non-fasting) (06/18/2018 6:05 AM EDT) Glucose Lvl 125 65 - 199 mg/dL [facility] Comment:Diabetes: >=200 mg/d L plus symptoms BUN 10 10 - 20 mg/dL [facility] Creatinine 0.76(L) 0.80 - 1.50 mg/dL [facility] Sodium 136 135 - 145 mmol/L [facility] Potassium 3.6 3.5 - 5.0 mmol/L [facility] Comment: Please note: ??Patients with WBC >100,000 may have falsely elevated Potassium levels. ??For accurate Potassium quantification in these patients send serum separator tube (gold top) for subsequent determinations. ??Contact the Clinical Chemistry Laboratory if there are any questions. Chloride 96(L) 98 - 107 mmol/L [facility] CO2 28 22 - 31 mmol/L [facility] Anion Gap 12 5 - 15 mmol/L [facility] Calcium 9.0 8.5 - 10.5 mg/dL [facility] Estimated GFR 98 >=60 mL/min/1. 73 m?? [facility] Comment: The eGFR was calculated using the CKD-EPI equation. As with all creatinine based estimates of kidney function, eGFR values calculated with the CKD-EPI equation are not accurate in patients with acute kidney failure, extremes of body mass or the acutely ill. [email or web address] eGFR 113 >=60 mL/min/1. 73 m?? [facility] Comment: The eGFR was calculated using the CKD-EPI equation. As with all creatinine based estimates of kidney function, eGFR values calculated with the CKD-EPI equation are not accurate in patients with acute kidney failure, extremes of body mass or the acutely ill. [email or web address] Blood specimen (specimen) 06/18/2018 6:05 AM EDT 06/18/2018 6:15 AM EDT Narrative Resulting Agency Comment Spec In Lab Joshua Jasmine MD CHEMISTRY ORDERABLES [facility] [place] [address] * (ABNORMAL) Differential, Automated (06/17/2018 1:28 AM EDT) Neutrophils % 74.2 % [facility] Neutr Abs (ANC) 13.79(H) 1.70 - 6.10 x10(3)/mc L [facility] Lymphocytes % 11.0 % [facility] Lymphocytes Abs 2.0 0.9 - 3.2 x10(3)/mc L [facility] Monocytes % 11.9 % [facility] Monocyte Abs 2.2(H) 0.3 - 0.9 x10(3)/mc L [facility] Eosinophils % 2.0 % [facility] Eosinophils Abs 0.4 0.0 - 0.4 x10(3)/[facility] LABORATORY Basophils % 0.3 % [facility] Basophils Abs 0.1 0.0 - 0.1 x10(3)/[facility] LABORATORY Immature Gran % 0.60 % [facility] Comment: Immature granulocytes(IG's)percentage and absolute count will include metamyelocytes, myelocytes, and promyelocytes. Blood smears from CBCs yielding IG's will be scanned manually for concordance. If this scan disagrees with the automated IG or if promyelocytes are noted, a manual differential will be performed. Shaila Gran Abs 0.11(H) 0.00 - 0.04 x10(3)/[facility] LABORATORY Blood specimen (specimen) 06/17/2018 1:28 AM EDT 06/17/2018 1:35 AM EDT Narrative Resulting Agency Comment Spec In Lab Danny Hawk MD HEMATOLOGY O RDERABLES [facility] [place] [address] * (ABNORMAL) Hemogram (06/17/2018 1:28 AM EDT) WBC 18.6(H) 4.0 - 9.5 x10(3)/[facility] LABORATORY RBC 3.32(L) 4.58 - 5.54 x10(6)/[facility] LABORATORY Hemoglobin 10.4(L) 13.7 - 16.5 gm/dL [facility] Hematocrit 30.9(L) 40.5 - 48.5 % [facility] MCV 93.1 82.9 - 93.1 fL [facility] MCH 31.3 27.5 - 32.1 pg [facility] MCHC 33.7 32.0 - 35.7 gm/dL [facility] Platelets 190 145 - 357 x10(3)/[facility] LABORATORY RDWSD 45.8(H) 36.0 - 45.0 [facility] LABORATORY RDWCV 13.4 11.4 - 13.8 % [facility] MPV 9.7 7.6 - 12.9 [facility] LABORATORY nRBC % Auto 0.0 % [facility] nRBC Abs Auto 0.000 0.000 - 0.000 x10(3)/[facility] LABORATORY Blood specimen (specimen) 06/17/2018 1:28 AM EDT 06/17/2018 1:35 AM EDT Narrative Resulting Agency Comment Spec In Lab Danny Hawk MD HEMATOLOGY O RDERABLES [facility] [place] [address] * (ABNORMAL) Basic Metabolic Panel (non-fasting) (06/17/2018 1:28 AM EDT) Glucose Lvl 137 65 - 199 mg/dL [facility] Comment:Diabetes: >=200 mg/d L plus symptoms BUN 11 10 - 20 mg/dL [facility] Creatinine 0.78(L) 0.80 - 1.50 mg/dL [facility] Sodium 134(L) 135 - 145 mmol/L [facility] Potassium 3.7 3.5 - 5.0 mmol/L [facility] Comment: Please note: ??Patients with WBC >100,000 may have falsely elevated Potassium levels. ??For accurate Potassium quantification in these patients send serum separator tube (gold top) for subsequent determinations. ??Contact the Clinical Chemistry Laboratory if there are any questions. Chloride 94(L) 98 - 107 mmol/L [facility] CO2 25 22 - 31 mmol/L [facility] Anion Gap 15 5 - 15 mmol/L [facility] Calcium 9.4 8.5 - 10.5 mg/dL [facility] Estimated GFR 97 >=60 mL/min/1. 73 m?? [facility] Comment: The eGFR was calculated using the CKD-EPI equation. As with all creatinine based estimates of kidney function, eGFR values calculated with the CKD-EPI equation are not accurate in patients with acute kidney failure, extremes of body mass or the acutely ill. http://[email or web address]/[facility] eGFR 112 >=60 mL/min/1. 73 m?? [facility] Comment: The eGFR was calculated using the CKD-EPI equation. As with all creatinine based estimates of kidney function, eGFR values calculated with the CKD-EPI equation are not accurate in patients with acute kidney failure, extremes of body mass or the acutely ill. [email or web address] Blood specimen (specimen) 06/17/2018 1:28 AM EDT 06/17/2018 1:34 AM EDT Narrative Resulting Agency Comment Spec In Lab Joshua Jasmine MD CHEMISTRY ORDERABLES Performing Organization Address City/[facility]/ZIP Co de Phone Number [facility] [place] [address] * Scan, Peripheral Blood (06/16/2018 1:10 AM EDT) Plat Estimate Normal [facility] RBC Morphology Normal [facility] Blood specimen (specimen) 06/16/2018 1:10 AM EDT 06/16/2018 1:17 AM EDT Narrative Resulting Agency Comment Spec In Lab Danny Hawk MD HEMATOLOGY O RDERABLES Performing Organization Address City/[facility]/ZIP Co de Phone Number [facility] [place] [address] * (ABNORMAL) Differential, Automated (06/16/2018 1:10 AM EDT) Neutrophils % 80.2 % [facility] Neutr Abs (ANC) 14.73(H) 1.70 - 6.10 x10(3)/[facility] LABORATORY Lymphocytes % 7.7 % [facility] Lymphocytes Abs 1.4 0.9 - 3.2 x10(3)/[facility] LABORATORY Monocytes % 10.1 % [facility] Monocyte Abs 1.8(H) 0.3 - 0.9 x10(3)/[facility] LABORATORY Eosinophils % 1.3 % [facility] Eosinophils Abs 0.2 0.0 - 0.4 x10(3)/[facility] LABORATORY Basophils % 0.2 % [facility] Basophils Abs 0.0 0.0 - 0.1 x10(3)/[facility] LABORATORY Immature Gran % 0.50 % [facility] Comment: Immature granulocytes(IG's)percentage and absolute count will include metamyelocytes, myelocytes, and promyelocytes. Blood smears from CBCs yielding IG's will be scanned manually for concordance. If this scan disagrees with the automated IG or if promyelocytes are noted, a manual differential will be performed. Shaila Gran Abs 0.10(H) 0.00 - 0.04 x10(3)/[facility] LABORATORY Blood specimen (specimen) 06/16/2018 1:10 AM EDT 06/16/2018 1:17 AM EDT Narrative Resulting Agency Comment Spec In Lab Danny Hawk MD HEMATOLOGY O RDERABLES [facility] [place] [address] * (ABNORMAL) Hemogram (06/16/2018 1:10 AM EDT) WBC 18.4(H) 4.0 - 9.5 x10(3)/[facility] LABORATORY RBC 3.22(L) 4.58 - 5.54 x10(6)/[facility] LABORATORY Hemoglobin 10.0(L) 13.7 - 16.5 gm/dL [facility] Hematocrit 29.7(L) 40.5 - 48.5 % [facility] MCV 92.2 82.9 - 93.1 [facility] LABORATORY MCH 31.1 27.5 - 32.1 pg [facility] MCHC 33.7 32.0 - 35.7 gm/dL [facility] Platelets 198 145 - 357 x10(3)/[facility] LABORATORY RDWSD 46.3(H) 36.0 - 45.0 [facility] LABORATORY RDWCV 13.6 11.4 - 13.8 % [facility] MPV 9.9 7.6 - 12.9 [facility] LABORATORY nRBC % Auto 0.0 % [facility] nRBC Abs Auto 0.000 0.000 - 0.000 x10(3)/[facility] LABORATORY Blood specimen (specimen) 06/16/2018 1:10 AM EDT 06/16/2018 1:17 AM EDT Narrative Resulting Agency Comment Spec In Lab Danny Hawk MD HEMATOLOGY O RDERABLES [facility] [place] [address] * Cardiac Enzymes (LEB/CGP) (06/16/2018 1:10 AM EDT) Troponin-T <0.01 0.00 - 0.00 ng/mL [facility] Comment: The 99th percentile for Troponin T is less than 0.01 ng/mL, any detectable cTnT concentration using this assay should be considered elevated. According to the third universal definition of myocardial infarction the following criteria with a clinical presentation consistent with acute myocardial ischemia meets the diagnosis for a myocardial infarction ([place]). Detection of a rise and/or fall of cTnT, with at least one value greater than the 99th percentile (> or = 0.01) and with at least one of the following ?? Symptoms of ischemia ?? New or presumed new significant KM-hloucdc-I wave (ST-T) changes or new left bundle [...] additional sample may be indicated. Reference: Third [place] Definition of Myocardial Infarction. Journal of the [place] [employer] 2012;60:1581-98 CK, Total 50 0 - 200 unit/L [facility] Blood specimen (specimen) 06/16/2018 1:10 AM EDT 06/16/2018 1:17 AM EDT Narrative Resulting Agency Comment Spec In Lab Josuha Jasmine MD CHEMISTRY ORDERABLES [facility] [place] [address] * Cardiac Enzymes (LEB/CGP) (06/15/2018 5:00 PM EDT) Troponin-T <0.01 0.00 - 0.00 ng/mL [facility] Comment: The 99th percentile for Troponin T is less than 0.01 ng/mL, any detectable cTnT concentration using this assay should be considered elevated. According to the third universal definition of myocardial infarction the following criteria with a clinical presentation consistent with acute myocardial ischemia meets the diagnosis for a myocardial infarction ([place]). Detection of a rise and/or fall of cTnT, with at least one value greater than the 99th percentile (> or = 0.01) and with at least one of the following ?? Symptoms of ischemia ?? New or presumed new significant GV-qbkgagr-C wave (ST-T) changes or new left bundle [...] additional sample may be indicated. Reference: Third [place] Definition of Myocardial Infarction. Journal of the [place] [employer] 2012;60:1581-98 CK, Total 51 0 - 200 unit/L [facility] Blood specimen (specimen) 06/15/2018 5:00 PM EDT 06/15/2018 5:05 PM EDT Narrative Resulting Agency Comment Spec In Lab Joshua Jasmine MD CHEMISTRY ORDERABLES [facility] [place] [address] * Cardiac Enzymes (LEB/CGP) (06/15/2018 10:59 AM EDT) Troponin-T <0.01 0.00 - 0.00 ng/mL [facility] Comment: The 99th percentile for Troponin T is less than 0.01 ng/mL, any detectable cTnT concentration using this assay should be considered elevated. According to the third universal definition of myocardial infarction the following criteria with a clinical presentation consistent with acute myocardial ischemia meets the diagnosis for a myocardial infarction (OH). Detection of a rise and/or fall of cTnT, with at least one value greater than the 99th percentile (> or = 0.01) and with at least one of the following ?? Symptoms of ischemia ?? New or presumed new significant [id number]-T wave (ST-T) changes or new left bundle [...] additional sample may be indicated. Reference: Third [place] Definition of Myocardial Infarction. Journal of the [place] [employer] 2012;60:1581-98 CK, Total 69 0 - 200 unit/L [facility] Blood specimen (specimen) 06/15/2018 10:59 AM EDT 06/15/2018 11:05 AM EDT Narrative Resulting Agency Comment Spec In Lab Joshua Jasmine MD CHEMISTRY ORDERABLES Performing Organization Address [facility] Co de Phone Number [facility] [place] [address] * EKG 12 Lead (06/15/2018 10:36 AM EDT) Ventricular rate 84 BPM MUSE SYSTEM Atrial Rate 84 BPM MUSE SYSTEM P-R Interval 120 ms MUSE SYSTEM QRS Duration 86 ms MUSE SYSTEM Q-T Interval 358 ms MUSE SYSTEM QTC Calculated (Bezet) 423 ms MUSE SYSTEM Calculated P [place] 21 degrees MUSE SYSTEM Calculated R [place] 61 degrees MUSE SYSTEM Calculated T [place] 74 degrees MUSE SYSTEM INTERPRETATION Normal sinus rhythm Normal ECG When compared with ECG of 14-JUN-2018 18:41, No significant change was found Confirmed by MD TERESA, RADHA ([id number]) on 06/15/2018 12:42:42 PM MUSE SYSTEM 06/15/2018 10:3 6 AM EDT 06/15/2018 12:42 PM EDT Joshua Jasmine MD ECG ORDERABLES Performing Organization Address [facility] Co de Phone Number MUSE SYSTEM * (ABNORMAL) Basic Metabolic Panel (non-fasting) (06/15/2018 7:21 AM EDT) Glucose Lvl 137 65 - 199 mg/dL [facility] Comment:Diabetes: >=200 mg/d L plus symptoms BUN 24(H) 10 - 20 mg/dL [facility] Creatinine 0.82 0.80 - 1.50 mg/dL [facility] Sodium 137 135 - 145 mmol/L [facility] Potassium 4.4 3.5 - 5.0 mmol/L [facility] Comment: Please note: ??Patients with WBC >100,000 may have falsely elevated Potassium levels. ??For accurate Potassium quantification in these patients send serum separator tube (gold top) for subsequent determinations. ??Contact the Clinical Chemistry Laboratory if there are any questions. Chloride 100 98 - 107 mmol/L [facility] CO2 25 22 - 31 mmol/L [facility] Anion Gap 12 5 - 15 mmol/L [facility] Calcium 8.7 8.5 - 10.5 mg/dL [facility] Estimated GFR 95 >=60 mL/min/1. 73 m?? [facility] Comment: The eGFR was calculated using the CKD-EPI equation. As with all creatinine based estimates of kidney function, eGFR values calculated with the CKD-EPI equation are not accurate in patients with acute kidney failure, extremes of body mass or the acutely ill. [email or web address] eGFR 110 >=60 mL/min/1. 73 m?? [facility] Comment: The eGFR was calculated using the CKD-EPI equation. As with all creatinine based estimates of kidney function, eGFR values calculated with the CKD-EPI equation are not accurate in patients with acute kidney failure, extremes of body mass or the acutely ill. [email or web address] Blood specimen (specimen) 06/15/2018 7:21 AM EDT 06/15/2018 7:24 AM EDT Narrative Resulting Agency Comment Spec In Lab Joshua Jasmine MD CHEMISTRY ORDERABLES Performing Organization Address City/State/[facility] Co de Phone Number [facility] [place] [address] * (ABNORMAL) Hemogram (06/15/2018 1:56 AM EDT) WBC 15.4(H) 4.0 - 9.5 x10(3)/[facility]AT[facility] RBC 3.81(L) 4.58 - 5.54 x10(6)/[facility] Hemoglobin 11.6(L) 13.7 - 16.5 gm/dL [facility] Hematocrit 35.4(L) 40.5 - 48.5 % [facility] MCV 92.9 82.9 - 93.1 [facility] MCH 30.4 27.5 - 32.1 pg [facility] MCHC 32.8 32.0 - 35.7 gm/dL [facility] Platelets 215 145 - 357 x10(3)/[facility] RDWSD 47.7(H) 36.0 - 45.0 [facility] RDWCV 14.0(H) 11.4 - 13.8 % [facility] MPV 9.5 7.6 - 12.9 [facility] nRBC % Auto 0.0 % [facility] nRBC Abs Auto 0.000 0.000 - 0.000 x10(3)/[facility] Blood specimen (specimen) 06/15/2018 1:56 AM EDT 06/15/2018 2:03 AM EDT Narrative Resulting Agency Comment Spec In Lab Shahid Silver MD HEMATOLOGY ORDERABL ES Performing Organization Address [facility] Co de Phone Number [facility] [place] [address] * POCT Glucose (06/15/2018 12:26 AM EDT) POC Glucose 134 65 - 199 mg/dL [facility] Comment: Supplemental ranges: <140 mg/dL before meals <180 mg/dL all other times of the day Blood specimen (specimen) 06/15/2018 12:26 AM EDT 06/15/2018 12:26 AM EDT Joshua Jasmine MD POINT OF CARE TEST O RDERABLES Performing Organization Address City/[facility]/ZIP Co de Phone Number [facility] [place] [address] * SCAN DOC: PACKAGING TECHNICIAN (06/15/2018 12:00 AM EDT) Anatomical Region Laterality [...] and the C2 exchanged for an angled two needle machine operator 2 catheter. ??A 6 mm Amplatzer plug [...] time as documented by the IR Nurse.? Sharan Montez MD IMG IR ORDERABLES * XR [...] PM EDT) ABORH Recheck Order Order Placed [facility] ABORH Type Recheck Complete [facility] Blood specimen (specimen) 06/14/2018 6:45 PM EDT 06/14/2018 6:55 PM EDT Narrative Resulting Agency Comment Spec In Lab Kenn Loving MD BLOOD BANK LAB ORDER MEAGAN [facility] [place] [address] * (ABNORMAL) Differential, Automated (06/14/2018 6:45 PM EDT) Neutrophils % 78.6 % [facility] Neutr Abs (ANC) 13.76(H) 1.70 - 6.10 x10(3)/ L [facility] Lymphocytes % 10.9 % [facility] Lymphocytes Abs 1.9 0.9 - 3.2 x10(3)/[facility] Monocytes % 7.4 % [facility] Monocyte Abs 1.3(H) 0.3 - 0.9 x10(3)/ L [facility] Eosinophils % 1.8 % [facility] Eosinophils Abs 0.3 0.0 - 0.4 x10(3)/ L [facility] Basophils % 0.6 % [facility] Basophils Abs 0.1 0.0 - 0.1 x10(3)/ L [facility] Immature Gran % 0.70 % [facility] Comment: Immature granulocytes(IG's)percentage and absolute count will include metamyelocytes, myelocytes, and promyelocytes. Blood smears from CBCs yielding IG's will be scanned manually for concordance. If this scan disagrees with the automated IG or if promyelocytes are noted, a manual differential will be performed. Shaila Gran Abs 0.13(H) 0.00 - 0.04 x10(3)/mc L [facility] Blood specimen (specimen) 06/14/2018 6:45 PM EDT 06/14/2018 7:09 PM EDT Narrative Resulting Agency Comment Spec In Lab Kenn Loving MD HEMATOLOGY ORDERABLE S [facility] [place] [address] * (ABNORMAL) Hemogram (06/14/2018 6:45 PM EDT) WBC 17.5(H) 4.0 - 9.5 x10(3)/[facility] RBC 4.17(L) 4.58 - 5.54 x10(6)/[facility] Hemoglobin 12.8(L) 13.7 - 16.5 gm/dL [facility] Hematocrit 38.3(L) 40.5 - 48.5 % [facility] MCV 91.8 82.9 - 93.1 fL [facility] MCH 30.7 27.5 - 32.1 pg [facility] MCHC 33.4 32.0 - 35.7 gm/dL [facility] Platelets 221 145 - 357 x10(3)/[facility] RDWSD 47.5(H) 36.0 - 45.0 [facility] RDWCV 13.9(H) 11.4 - 13.8 % [facility] MPV 9.2 7.6 - 12.9 [facility] nRBC % Auto 0.0 % [facility] nRBC Abs Auto 0.000 0.000 - 0.000 x10(3)/[facility] Blood specimen (specimen) 06/14/2018 6:45 PM EDT 06/14/2018 7:09 PM EDT Narrative Resulting Agency Comment Spec In Lab Kenn Loving MD HEMATOLOGY ORDERABLE S Performing Organization Address City/[facility]/ZIP Co de Phone Number [facility] [place] [address] * Antibody screen (06/14/2018 6:45 PM EDT) Ab Screen Interp Negative [facility] Expires at [id number] on: 06/17/2018 [facility] Blood specimen (specimen) 06/14/2018 6:45 PM EDT 06/14/2018 6:55 PM EDT Narrative Resulting Agency Comment Spec In Lab Kenn Loving MD BLOOD BANK LAB ORDER MEAGAN Performing Organization Address City/[facility]/ZIP Co de Phone Number [facility] [place] [address] * ABO/Rh Typing (06/14/2018 6:45 PM EDT) Pathologist [facility] ABORH Type A Pos [facility] Blood specimen (specimen) 06/14/2018 6:45 PM EDT 06/14/2018 6:55 PM EDT Narrative Resulting Agency Comment Spec In Lab Kenn Loving MD BLOOD BANK LAB ORDER MEAGAN Performing Organization Address City/[facility]/ZIP Co de Phone Number [facility] [place] [address] * (ABNORMAL) APTT (06/14/2018 6:45 PM EDT) PTT <20(L) 25 - 37 sec [facility] Comment: Decreased clotting times may be [...] MD HEMATOLOGY ORDERABL ES Performing Organization Address [facility] de Phone Number [facility] [place] [address] * Prothrombin Time (06/14/2018 6:45 PM EDT) PT 10.8 9.4 - 12.5 sec [facility] INR 1.0 [facility] Comment: An INR <2.0 indicates [...] MD HEMATOLOGY ORDERABL ES Performing Organization Address [facility] de Phone Number [facility] [place] [address] * Basic Metabolic Panel (non-fasting) (06/14/2018 6:45 PM EDT) Glucose Lvl 121 65 - 199 mg/dL [facility] Comment:Diabetes: >=200 mg/d L plus symptoms BUN 19 10 - 20 mg/dL [facility] Creatinine 0.87 0.80 - 1.50 mg/dL [facility] Sodium 137 135 - 145 mmol/L [facility] Potassium 4.6 3.5 - 5.0 mmol/L [facility] Comment: Please note: ??Patients with WBC >100,000 may have falsely elevated Potassium levels. ??For accurate Potassium quantification in these patients send serum separator tube (gold top) for subsequent determinations. ??Contact the Clinical Chemistry Laboratory if there are any questions. Chloride 100 98 - 107 mmol/L [facility] CO2 24 22 - 31 mmol/L [facility] Anion Gap 13 5 - 15 mmol/L [facility] Calcium 8.6 8.5 - 10.5 mg/dL [facility] Estimated GFR 92 >=60 mL/min/1. 73 m?? [facility] Comment: The eGFR was calculated using the CKD-EPI equation. As with all creatinine based estimates of kidney function, eGFR values calculated with the CKD-EPI equation are not accurate in patients with acute kidney failure, extremes of body mass or the acutely ill. [email or web address] CITYnkf eGFR 107 >=60 mL/min/1. 73 m?? [facility] Comment: The eGFR was calculated using the CKD-EPI equation. As with all creatinine based estimates of kidney function, eGFR values calculated with the CKD-EPI equation are not accurate in patients with acute kidney failure, extremes of body mass or the acutely ill. [email or web address] CITYnkf Blood specimen (specimen) 06/14/2018 6:45 PM EDT 06/14/2018 7:09 PM EDT Narrative Resulting Agency Comment Spec In Lab Shahid Silver MD CHEMISTRY ORDERABLE S [facility] [place] [address] * EKG 12 Lead (06/14/2018 6:41 PM EDT) Ventricular rate 92 BPM MUSE SYSTEM Atrial Rate 92 BPM MUSE SYSTEM P-R Interval 114 ms MUSE SYSTEM QRS Duration 86 ms MUSE SYSTEM Q-T Interval 358 ms MUSE SYSTEM QTC Calculated (Bezet) 442 ms MUSE SYSTEM Calculated P [place] -14 degrees MUSE SYSTEM Calculated R [place] 56 degrees MUSE SYSTEM Calculated T [place] 68 degrees MUSE SYSTEM INTERPRETATION Normal sinus rhythm Normal ECG No previous ECGs available Confirmed by MD TERESA, RADHA ([id number]) on 06/15/2018 12:42:34 PM MUSE SYSTEM 06/14/2018 6:41 PM EDT 06/15/2018 12:42 PM EDT Shahid Silver MD ECG ORDERABLES [employer] documented in this encounter Visit Diagnoses [...] Stearns RN) 0929 (Given - Provider: Griffin Prsaad RN) 0850 (Given - Provider: Jessica Cummings) [...] Until Discontinued, Routine 2115 (Given - Provider: Latha Alatorre RN) 2015 (Given - Provider: Jia Allen RN) PRN Medication Order 06/16/2018 06/17/2018 06/18/2018 bisacodyl (DULCOLAX) suppository 10 mg 10 mg, Rectal, DAILY PRN, Starting on Sun06/17/18 at 1330, Until Sun06/18/18 at 1719, Constipation, Routine 152 (Given - Provider: Griffin Prsaad, NING) cyclobenzaprine (FLEXERIL) tablet 5 mg 5 [...] Routine documented in this encounter Care Teams [employer]ite [employer] Relationship Specialty Start Date End Date None None PCP - General 08/09/10 07/22/18 documented as of this encounter
--- OUTSIDE RECORDS SUMMARY | 2024-04-17 08:43 | XMS_ITS | Encounter Summary ---
Author Organization [facility] Address [address] [place] [address] Care Team Providers Care Recycling Specialist Name Role Phone Sai Garg MD Primary Care Provi glynn Reason for Referral * Follow Up (Routine) - Closed Specialty Diagnoses / Procedures Referred By Contabida connelly Referred To Contact Diagnoses Chest pain Yanely Beckman MD [employer] [address] [place] [phone] Referral ID Status Reason Start Date Expiration Date V isits Requested Visits Authorized [id number] Closed Continuity of Care 03/12/2015 1 1 Question Answer Reason for Request: f/u 2 weeks Encounter Details Date Type Department Care Team (Late st Contact Info) Description 03/12/2015 10:23 EDT - 03/12/2015 14:59 EDT Hospital Encounter [facility] Cardiac/Telemetry Unit [address] [place] [address] Ravi Costello MD [address] [place] [address] [phone] Germain Ayala MD [address] [place] [address] [phone] Chest pain (Primary Dx); Abnormal cardiovascular stress [...] disorder, and current ethanol abuse(~6beers/daily) presents from [facility] due to elevated troponin and atypical chest [...] was given Aspirin 81mg and transferred to [facility]. Currently he is experiencing 6/10 chest pain; he is irritable and annoyed that he hasn't gotten anything to eat or drink. . Denies recent illness. No lightheadedness/fevers/chills Relevant prior Cardiac Studies: [facility] 01/2014: Diagnostic Cardiac Study Results Left main: Normal. LAD: Prior intervention: stent in the proximal LAD. The stented segment is patent Left circumflex: Normal. 2nd obtuse marginal: Ostial lesion: There is a 55% stenosis. This lesion is unchanged from a prior study. Right coronary: Normal. Stress test at [facility] on November 2014: moderate size, partially reversible [...] discussed with Dr. Kash Beckman MD PGY-2, #[id number] Attending Attestation: I have personally seen and [...] Are Adequately Managed D: Patient arrived to [place] [id number] for CP. Vital signs noted, and tele [...] EDT) 03/16/2015 11:4 5 EDT Scan 2 Bull Fiddle Player PROCEDURE/MINOR AMITA GICAL ORDERABLES * ECG REPORT - SCANNED (03/15/2015 14:46 EDT) 03/15/2015 14:4 6 EDT Scan 2 [employer] Fiddle Player PROCEDURE/MINOR AMITA GICAL ORDERABLES * INPATIENT ADD-ON (03/12/2015 12:10 EDT) Tests to be added AST, ALT, ALK PHOS, TOTAL BILI 03/12/2015 12:10 EDT [facility] Number for problems [id number] 03/12/2015 12:21 EDT [facility] Accession number [id number] 03/12/2015 12:21 EDT [facility] TOPOGRAPHY UNKNOWN / Unknown 03/12/2015 12:10 EDT 03/12/2015 12:20 EDT Yanely Beckman MD HEMATOLOGY & PF4 ORD ERABLES [facility] [address] [place] [address] * GLUCOSE, GLUCOMETER (03/12/2015 11:38 EDT) Glucose, Fingerstick 87 70 - 100 mg/dl 03/12/2015 11:42 EDT [facility] Chief Nurse Executive ID [id number] 03/12/2015 11:42 EDT [facility] Comment:[facility] BLOOD SPECIMEN / Unknown 03/12/2015 11:38 EDT 03/12/2015 11:42 EDT Germain Ayala MD CHEMISTRY & B LOOD GAS ORDERABLES [facility] [address] [place] [address] * INPATIENT ADD-ON (03/12/2015 11:20 EDT) Tests to be added ELECTROLYT DONALD MICHELLE INE 03/12/2015 11:20 EDT [facility] Number for problems [id number] 03/12/2015 11:30 EDT [facility] Accession number [id number] 03/12/2015 11:30 EDT [facility] TOPOGRAPHY UNKNOWN / Unknown 03/12/2015 11:20 EDT 03/12/2015 11:30 EDT Roque Hewitt MD HEMATOLOGY & PF4 ORD ERABLES Performing Organization Address [facility] Co de Phone Number [facility] [address] [place] [address] * EKG 12-LEAD (03/12/2015 11:08 EDT) 03/12/2015 11:0 8 EDT Narrative [facility] - 03/13/2015 15:22 EDT ? [facility] ? Test Date: ?2015-03-12 Pat Name: ? JIMENEZ BARKLEY ? Department: ?? Gabriel 5 ? Room: ? MW516 Gender: ? M ?Lead Relay Tester: ?? [id number] : ?1955 ? Requested By: ANN GUERRA Order Number: [id number] ? Reading : ?? SANDRA BALLESTEROS MD ? Measurements Intervals ?[place] ? Rate: ? 58 ? P: ?66 ND: ? 156 ?QRS: ?71 QRSD: ? 92 [...] Note Sandra Ballesteros MD - 03/13/2015 [facility] Test Date: 2015-03-12 Pat Name: JIMENEZ BARKLEY Department: Nery Mackay Room: [facility] Gender: M Lead Relay Tester: [id number] : 1955 Requested By: ANN GUERRA Order Number: [id number] Reading MD: SANDRA BALLESTEROS MD Measurements Intervals [place] Rate: 58 P: 66 ND: 156 QRS: 71 QRSD: 92 T: 79 [...] CARDIAC ECG ORDERABL ES Performing Organization Address City/[facility]/ZIP Co de Phone Number [facility] * BILIRUBIN, TOTAL (03/12/2015 11:05 EDT) Pathologist [facility] Bilirubin, Total 0.7 <1.4 mg/dl 03/12/2015 13:19 EDT [facility] BLOOD SPECIMEN / Unknown 03/12/2015 11:05 EDT 03/12/2015 11:19 EDT Yanely Beckman MD CHEMISTRY & BLOOD GA S ORDERABLES [facility] [address] [place] [address] * (ABNORMAL) AST (03/12/2015 11:05 EDT) AST 53(H) 15 - 46 U/L 03/12/2015 13:19 EDT [facility] BLOOD SPECIMEN / Unknown 03/12/2015 11:05 EDT 03/12/2015 11:19 EDT Yanely Beckman MD CHEMISTRY & BLOOD GA S ORDERABLES [facility] [address] [place] [address] * ALT (03/12/2015 11:05 EDT) ALT 61 21 - 72 U/L 03/12/2015 13:19 EDT [facility] BLOOD SPECIMEN / Unknown 03/12/2015 11:05 EDT 03/12/2015 11:19 EDT Yanely Beckman MD CHEMISTRY & BLOOD GA S ORDERABLES Performing Organization Address City/[facility]/ZIP Co de Phone Number [facility] [address] [place] [address] * ALKALINE PHOSPHATASE (03/12/2015 11:05 EDT) Total Alkaline Phosphatase 57 38 - 126 U/L 03/12/2015 13:19 EDT [facility] BLOOD SPECIMEN / Unknown 03/12/2015 11:05 EDT 03/12/2015 11:19 EDT Yanely Beckman MD CHEMISTRY & BLOOD GA S ORDERABLES Performing Organization Address City/[facility]/ZIP Co de Phone Number [facility] [address] [place] [address] * ELECTROLYTES (03/12/2015 11:05 EDT) Sodium 141 136 - 145 mEq/L 03/12/2015 13:19 EDT [facility] Potassium 4.0 3.5 - 5.0 mEq/L 03/12/2015 13:09 EDT [facility] Chloride 104 96 - 110 mEq/L 03/12/2015 13:19 EDT [facility] CO2 30 24 - 32 mEq/L 03/12/2015 13:19 EDT [facility] BLOOD SPECIMEN / Unknown 03/12/2015 11:05 EDT 03/12/2015 11:19 EDT Yanely Beckman MD CHEMISTRY & BLOOD GA S ORDERABLES [facility] [address] [place] [address] * (ABNORMAL) CREATININE (03/12/2015 11:05 EDT) Creatinine 0.64(L) 0.66 - 1.25 mg/dl 03/12/2015 13:19 EDT [facility] GFR, Calculated >60 >60 ml/min/1.7 3m2 03/12/2015 13:19 EDT [facility] BLOOD SPECIMEN / Unknown 03/12/2015 11:05 EDT 03/12/2015 11:19 EDT Yanely Beckman MD CHEMISTRY & BLOOD GA S ORDERABLES Performing Organization Address City/[facility]/ZIP Co de Phone Number [facility] [address] [place] [address] * TROPONIN I (03/12/2015 11:05 EDT) Troponin I (ng/mL) <0.034 <0.034 ng/ml 03/12/2015 12:01 EDT [facility] Blood specimen (specimen) BLOOD SPECIMEN / Unknown 03/12/2015 11:05 EDT 03/12/2015 11:19 EDT Yanely Beckman MD CHEMISTRY & BLOOD GA S ORDERABLES [facility] [address] [place] [address] * (ABNORMAL) HEMAGRAM (03/12/2015 11:05 EDT) WBC 8.75 4.0 - 10.4 K/cmm 03/12/2015 11:39 EDT [facility] RBC 3.80(L) 4.36 - 5.78 M/cmm 03/12/2015 11:39 EDT [facility] Hemoglobin 12.0(L) 13.8 - 17.3 gm/dl 03/12/2015 11:39 EDT [facility] HCT 36.6(L) 39.5 - 50.2 % 03/12/2015 11:39 T [facility] MCV 96(H) 81 - 95 fl 03/12/2015 11:39 T [facility] MCH 31.7 27.6 - 33.0 pg 03/12/2015 11:39 T [facility] MCHC 32.9 32.8 - 36.4 gm/dl 03/12/2015 11:39 T [facility] RDW-CV 14.1 11.8 - 14.1 % 03/12/2015 11:39 [facility] RDW-SD 46.8(H) 36.5 - 45.9 fl 03/12/2015 11:39 [facility] PLT 123(L) 141 - 320 K/cmm 03/12/2015 11:39 [facility] MPV 7.9 7.5 - 11.2 fl 03/12/2015 11:39 [facility] Blood specimen (specimen) BLOOD SPECIMEN / Unknown 03/12/2015 11:05 EDT 03/12/2015 11:19 EDT Yanely Beckman MD HEMATOLOGY & PF4 ORD ERABLES [facility] [address] [place] [address] * (ABNORMAL) PROTIME (03/12/2015 11:05 EDT) Pro Time 9.8(L) 10.1 - 13.0 secs 03/12/2015 11:58 T [facility] Comment: New prothrombin t radha range effective 02/23/15 I.N.R. 0.9 0.9 - 1.1 Ratio 03/12/2015 11:58 [facility] Comment: Moderate Intensity Coumadin INR = 2.0-3.0 Adjustments in anticoagulant therapy dose should be based upon the INR and NOT the Pro Time. Blood specimen (specimen) BLOOD SPECIMEN / Unknown 03/12/2015 11:05 EDT 03/12/2015 11:19 EDT Yanely Beckman MD HEMATOLOGY & PF4 ORD ERABLES [facility] [address] [place] [address] documented in this encounter Visit Diagnoses Diagnosis [...] 03/12/2015 documented in this encounter Care Teams Recycling Specialist Relationship Specialty Start Date End Date Sai Garg MD [address] [place] [phone] PCP - General 03/12/15 11/04/19 documented as of this encounter
--- OUTSIDE RECORDS SUMMARY | 2024-04-17 08:43 | XMS_ITS | Encounter Summary ---
Author Organization [facility] Address [facility] [place] [address] Care Team Providers Care Fiberglass Boat Builder Name Role Phone None Primary Care Provider Unavailabl e Encounter Details Date Type Department Care Team (Late st Contact Info) Description 02/04/2016 - 02/04/2016 11:59 PM EDT Hospital Encounter [place] [phone] Sharan Gee MD [address] [place] [address] Pain Discharge Disposition: Home Social History Tobacco [...] Gee MD G FILM LIBRARY ORD ERABLES [place], [place] documented in this encounter Visit Diagnoses Diagnosis Pain Generalized pain documented in this encounter Care Teams Fiberglass Boat Builder Relationship Specialty Start Date End Date None None PCP - General 08/09/10 07/22/18 documented as of this encounter
--- OUTSIDE RECORDS SUMMARY | 2024-04-17 08:44 | XMS_ITS | Encounter Summary ---
Author Organization [facility] Address [address] [place] [address] Care Team Providers Care Housekeeping Assistant Name Role Phone Erich Sethi MD Primary Care Provider [phone] Encounter Details Date Type Department Care Team (Latest Contact Info) Description 11/21/2014 12:45 EST - 11/21/2014 23:59 EST Hospital Encounter [facility] [address] [place] [address] Unknown, Provider, Discharge Disposition: Home or Self [...] Code Departure Means Destination Home or Self Jail documented in this encounter Plan of Treatment [...] filedocumented in this encounter Care Teams Housekeeping Assistant Relationship Specialty Start Date End Date Erich Sethi MD [address] [place] [phone] PCP - General 11/12/14 03/11/15 documented as of this encounter
--- OUTSIDE RECORDS SUMMARY | 2024-04-17 08:44 | XMS_ITS | Encounter Summary ---
Author Organization [facility] Address [address] [place] [address] Care Team Providers Care Cafeteria Aide Name Role Phone Erich Sethi MD Primary Care Provider [phone] Sai Garg MD Primary Care Provi glynn Encounter Details Date Type Department Care Team (Late st Contact Info) Description 11/30/2014 Historical Results Only [facility] Radiology Results [address] [place], [place] [id number] Kamran Renee MD [address] [place] [phone] Social History Tobacco Use Types Packs/Day Years [...] margin pain yet had NSTEMI ? *[facility]* ? *[facility]* ? [address] ? [place] [address] ? Myocardial Perfusion Imaging - SPECT ? [...] CONTINUES TO SMOKE AND DRINK. ? 03/2014- [place] WITH STENTS X 2. ? PMH: ?? [...] heart rate and ? blood pressure was 98722wg Hg/min. Stress ECG: RESTING LEXISCAN STUDY ? [...] procedure. [facility]. ? Study status: Routine. Consent: [...] this study was interpreted by Ananya ? Labor Employment Associate Carrol Peraza MD. ? - The Stress ECG portion of this study was interpreted by Carrol ? MD Stu. ? Electronically signed by ? Carrol Peraza ? 11/30/2014 14:27 ?Reported By: CARROL PERAZA M.D. ? CC: ? Transcribed Date/Time: 12/01/2014 (1402) ? Truck Car And Bus Cleaner: JENNY ? Printed Date/Time: 02/18/2019 (1035) ? PAGE 3 ? Signed Report ? Procedure Note Carrol Peraza MD - 07/22/2019 EXAM: NUCLEAR MEDICINE/NUCLEAR STRESS SHAQUILLE EX. D/ (1561) CLINICAL INFORMATION: Anoop-becca Tate rib margin pain yet had NSTEMI *[facility]* *[facility]* [address] [place] [address] Myocardial Perfusion Imaging - SPECT Regadenoson Date [...] TROP 1.8, PATIENT REFUSED TO TRANSFER TO [facility]. TROPS FOR THIS ADMISSION ARE 0.076 X 3. ECG UNREMARKABLE. ECHO 11/30/14- LVEF 45-50%. PATIENT CONTINUES TO SMOKE AND DRINK. 03/2014- [place] WITH STENTS X 2. PMH: COPD. Risk [...] the peak heart rateand blood pressure was 22591vu Hg/min. Stress ECG: RESTING LEXISCANSTUDY 10/10 CHEST [...] procedure. This study was interpreted by [facility]. Study status: Routine. Consent: The [...] of this study was interpreted by Nuclear Labor Employment Associate Carrol Peraza MD. - The Stress ECG portion of this study was interpreted by Carrol Peraza MD. Electronically signed by Carrol Peraza 11/30/2014 14:27 Reported By: CARROL PERAZA M.D. CC: Transcribed Date/Time: 12/01/2014 (1402) Truck Car And Bus Cleaner: JENNY Printed Date/Time: 02/18/2019 (1035) PAGE 3 Signed Report Kamran Renee MD CARDIAC NM ORDERABL ES documented in this encounter Visit Diagnoses Not on filedocumented in this encounter Care Teams Cafeteria Aide Relationship Specialty Start Date End Date Erich Sethi MD [address] [place] [phone] PCP - General 11/12/14 03/11/15 Sai Garg MD [address] [place] [phone] PCP - General 03/12/15 11/04/19 documented as of this encounter
--- OUTSIDE RECORDS SUMMARY | 2024-04-17 08:44 | XMS_ITS | Encounter Summary ---
Author Organization [facility] Address [address] [place] [address] Care Team Providers Care Dielectric Machine Operator Name Role Phone Erich Sethi MD Primary Care Provider [phone] Sai Garg MD Primary Care Provi glynn Encounter Details Date Type Department Care Team (Late st Contact Info) Description 11/28/2014 Historical Results Only [facility] Radiology Results [address] [place] [address] Bhavesh Chi MD [address] [place] [address] Social History Tobacco Use Types [...] CC: ? Transcribed Date/Time: 11/28/2014 (1226) ? Nitroglycerin Distributor: ? Printed Date/Time: 02/18/2019 (9011) ? PAGE 1 ? Signed Report ? [...] Keller MD CC: Transcribed Date/Time: 11/28/2014 (1226) Nitroglycerin Distributor: Printed Date/Time: 02/18/2019 (6545) PAGE 1 Signed Report Bhavesh Chi MD IMG DIAGNOSTIC I MAGING ORDERABLES documented in this encounter Visit Diagnoses Not on filedocumented in this encounter Care Teams Dielectric Machine Operator Relationship Specialty Start Date End Date Erich Sethi MD [address] [place] [address] [phone] PCP - General 11/12/14 03/11/15 Sai Garg MD [address] [place] [phone] PCP - General 03/12/15 11/04/19 documented as of this encounter
--- OUTSIDE RECORDS SUMMARY | 2024-04-17 08:44 | XMS_ITS | Encounter Summary ---
Author Organization [facility] Address [address] [place] [address] Care Team Providers Care Cycle Liaison Name Role Phone Sai Garg MD Primary Care Provi glynn Reason for Referral * Follow Up (Routine) - Closed Specialty Diagnoses / Procedures Referred By Contabida t Referred To Contact Diagnoses Chest pain Nolan Carmona MD [address] [place] [phone] Referral ID Status Reason Start Date Expiration Date V isits Requested Visits Authorized [id number] Closed Continuity of Care 04/03/2014 1 1 Question Answer Reason for Request: Pt has Chest pain that is muscloskeletal in origin (no objective evidence of DE) and would benefit from following w PCP following d/c from [facility]. Comments Pt has follow up appointment w Dr. Jose E Mason on Sunday, April 13 [facility] [address], [place] [address] Encounter Details Date Type Department Care Team (Late st Contact Info) Description 04/03/2014 2:36 EDT - 04/03/2014 15:33 EDT Hospital Encounter [facility] Cardiac/Telemetry Unit [address] [place], [place] [address] Ravi Costello MD [address] [phone] Golden Quintero MD [address] [phone] Chest pain (Primary Dx); ETOH abuse; CAD [...] HLD, mood disorder who was brought to [facility] ED bypolice due to complaint of Chest Pain which radiated to left arm and leg and was worst w exertion and position change. On arrival, he was found to have a mildly elevated Troponin of 0.2, and EtOH level of greater than 400. He was given ASA, Ticagrelor, and heparin and transferred to [facility] for further evaluation. At [facility] troponin was negative and on EKG [...] w medication and anti-coagulation regimen, preforming a [facility] would not benefit the pt and [...] admission Procedure Component Value Units Date/Time TSH [[id number]] Collected: 04/03/14309 Lab Status: In process Updated: [...] Dr. Jose E Mason on April 13 [facility] [address], [place] [address] Follow-Up Labs and Tests: Attestation statement::I have [...] Notes * Lisbeth Lopez RN - 04/03/2014 9750 EDT CM Discharge Note: D/C home on 04/03/2014 without home health services. Taxi voucher provided. Luna Lopez RN #[id number] * Lisbeth Lopez RN - 04/03/2014 1125 [...] Primary Care Provider: Sai Garg MD Pharmacy: [facility] in [place] LIVING ARRANGEMENTS AND ACCESSIBILITY ISSUES: Other: Are there any home access issues? What in home social supports are available to the patient? none ADVANCED DIRECTIVES, POA &/or COLST IN PLACE: No CULTURAL, SAMARITAN and/or LANGUAGE factors affecting health care/discharge planning:: N/A FUNCTIONAL & PSYCHOSOCIAL INFORMATION: Patient is independent. We discussed his alcohol dependence. Patient again declining offers of rehab. States he needs to find housing before winter. He just moved to [place] one week ago and hasn't been in contact with the local nursing home social worker office MEDICAL INSURANCE IN PLACE: [...] Notified him, plan will be transport to [facility] to seed cone picker meds, then he can walk to [...] Date HGBA1C 6.0 01/18/2014 ECHO: Pending EKG: [facility] ekg with no st changes (5) [...] clinical improvement. Nolan Carmona MD PGY-1 Pager #[phone] documented in this encounter H&P Notes * [...] ticagrelor, and heparin gtt and transferred to [facility]. He says he has continued pain [...] warm, atraumatic, no cyanosis or edema ECG: [facility] ekg with no st changes Data [...] clinical course Rafa Bright MD Pager # [phone] 04/03/2014 3:17 Fellow addendum - 58 y/o [...] Echo. D/W DR Quintero. Kiley Moran MD film tests checker - PGY 4 Pager - [phone]. CP syndrome is clearly musculoskeletal. He does not have evidence of DE by troponin evaluation. He has demonstrated noncompliance [...] wheelchair. Pt will transport by taxi to [facility] to seed cone picker meds, and then he will walk home. MD Carmona aware. Eleonora Song RN 04/03/2014 * Plan of Care - Navarro Leroy RN - 04/03/2014 0718 EDT Problem: HOSPITAL ORIENTATION/SAFETY Goal: Oriented To Hospital Environment Outcome: Completed Date Met: 04/03/14 D: Patient arrived to [place] [address]. Vital signs noted, and tele applied. Patient [...] 6:51 EDT) 04/10/2014 6:51 EDT Scan 2 Receiving Teller PROCEDURE/MINOR AMITA GICAL ORDERABLES * ECG REPORT - SCANNED (04/07/2014 17:40 EDT) 04/07/2014 17:4 0 EDT Scan 2 Receiving Teller PROCEDURE/MINOR AMITA GICAL ORDERABLES * ECG REPORT - SCANNED (04/07/2014 11:58 EDT) 04/07/2014 11:5 8 EDT Scan 2 Receiving Teller PROCEDURE/MINOR AMITA GICAL ORDERABLES * ECHOCARDIOGRAM LIMITED (04/03/2014 11:29 EDT) Anatomical Region Laterality Modality Other 04/03/2014 11:2 9 EDT Narrative 04/03/2014 12:04 EDT *Interpreting Group:* *[facility]* [address] [place] [address] *STUDY CONCLUSIONS* Summary: 1. Left ventricle: The [...] ?Golden Quintero MD ATTENDING ?Ravi Costello MD PLATE WORKER HELPER ??Chichi Manning REFERRING ?Sai Garg PERFORMING ?? [facility], ORDERING ? Abimael Matos *PROCEDURE DATA* Procedure information: ??This study was interpreted by [facility] at [facility]. ??Study status: ??Routine. Transthoracic echocardiography. ??M-mode, limited [...] procedure well. *INDICATIONS AND HISTORY* Indications: ?? DE - nontransmural - acute 410.71. History: ?PMH: [...] 04/03/2014 *Interpreting Group:* *[facility]* [address] [place] [address] *STUDY CONCLUSIONS* Summary: 1. Left ventricle: The [...] Golden Quintero MD ATTENDING Ravi Costello MD PLATE WORKER HELPER Chichi Manning REFERRING Sai Garg [facility], ORDERING RoxannedaAbimael cadena *PROCEDURE DATA* Procedure information: This study was interpreted by [facility]. Study status: Routine.Transthoracic echocardiography. M-mode, limited 2D, limited spectral Doppler, and color Doppler. A Transthoracic Echocardiogram was performed. The parasternalwindow was low, thus no M-mode measurements were recorded. Scanning was performedfrom the parasternal, apical, and subcostal acoustic windows. Images wereobtained using a Carola IE33 3 cardiac ultrasound machine. Image quality wasadequate. Study completion: The patient tolerated the procedure well. *INDICATIONS AND HISTORY* Indications: DE - nontransmural - acute 410.71. History: PMH: [...] URINALYSIS ORDERABLE S [facility] [address] [place] [address] * EKG 12-LEAD (04/03/2014 8:38 EDT) 04/03/2014 8:38 EDT Narrative [facility] EKG - 04/08/2014 16:55 EDT ?[facility] ? Test Date: ?2014-04-03 Pat Name: ? JIMENEZ BARKLEY ? Department: ?? Nery Mackay ? Room: ? MW530 Gender: ? M ?Can Maker: ?? [id number] : ?1955 ? Requested By: NOLAN CARMONA MD Order Number: [id number] ? Reading MD: ?? ADRIEL HENDERSON MD ? Measurements Intervals ?Leander ? Rate: ? 64 ? P: ?52 MT: ? 148 ?QRS: ?74 QRSD: ? 95 [...] Date: 2014-04-03 Pat Name: JIMENEZ BARKLEY Department: [place] [address] Room: [facility] Gender: M Can Maker: [id number] : 1955 Requested By: NOLAN CARMONA MD Order Number: [id number] Reading MD: ADRIEL HENDERSON MD Measurements Intervals Leander Rate: 64 P: 52 MT: 148 QRS: 74 QRSD: 95 T: 75 QT: 428 QTc: 442 Interpretive Statements SINUS RHYTHM NONSPECIFIC ST & T-WAVE ABNORMALITY Compared to ECG 04/03/2014 03:13:35 T-wave abnormality now present I reviewed the tracing and agreed or edited the report. ElectronicallySigned On 04-08-14 16:55:49 EDT by ADRIEL HENDERSON MD. Nolan Carmona MD CARDIAC ECG ORDERABL ES [facility] EKG * (ABNORMAL) PTT (04/03/2014 6:03 EDT) PTT 69(H) 26 - 37 secs [facility] Comment:Therapeutic Heparin range: 65-100 seconds Blood specimen (specimen) 04/03/2014 6:03 EDT 04/03/2014 7:22 EDT Rafa Bright MD HEMATOLOGY & PF4 ORD ERABLES Performing Organization Address [facility] Co de Phone Number [facility] [address] [place] [address] * INPATIENT ADD-ON (04/03/2014 5:15 EDT) Tests to be added MAGNESIUM [facility] Number for problems Not Given [facility] Accession number [id number] [facility] 04/03/2014 5:15 EDT 04/03/2014 5:15 EDT Rafa Bright MD HEMATOLOGY & PF4 ORD ERABLES Performing Organization Address [facility] de Phone Number [facility] [address] [place] [address] * INPATIENT ADD-ON (04/03/2014 3:40 EDT) Tests to be added PLEASE ADD DIFF TO HEMAGRAM [facility] Number for problems Not Given [facility] Accession number Not Given [facility] Comment: (Note) CBCDF ALREADY ORDERED 04/03/2014 3:40 EDT 04/03/2014 3:40 EDT Rafa Bright MD HEMATOLOGY & PF4 ORD ERABLES Performing Organization Address [facility] de Phone Number [facility] [address] [place] [address] * INPATIENT ADD-ON (04/03/2014 3:20 EDT) Tests to be added AST, ALT, ALK PHOS, TBILI, TSH [facility] Number for problems Not Given [facility] Accession number [id number] [facility] 04/03/2014 3:20 EDT 04/03/2014 3:24 EDT Rafa Bright MD HEMATOLOGY & PF4 ORD ERABLES Performing Organization Address [facility] Co de Phone Number [facility] [address] [place] [address] * INPATIENT ADD-ON (04/03/2014 3:20 EDT) Tests to be added GLUCOSE, SERUM [facility] Number for problems Not Given [facility] Accession number [id number] [facility] 04/03/2014 3:20 EDT 04/03/2014 3:24 EDT Rafa Bright MD HEMATOLOGY & PF4 ORD ERABLES Performing Organization Address [facility] Co de Phone Number [facility] [address] [place] [address] * INPATIENT ADD-ON (04/03/2014 3:20 EDT) Tests to be added HEMOGLOBIN A1C [facility] Number for problems Not Given [facility] Accession number [id number] [facility] 04/03/2014 3:20 EDT 04/03/2014 3:23 EDT Rafa Bright MD HEMATOLOGY & PF4 ORD ERABLES Performing Organization Address [facility] de Phone Number [facility] [address] [place] [address] * EKG 12-LEAD (04/03/2014 3:13 EDT) 04/03/2014 3:13 EDT Narrative [facility] EKG - 04/06/2014 8:40 EDT ?[facility] ? Test Date: ?2014-04-03 Pat Name: ? JIMENEZ BARKLEY ? Department: ?? Gabriel 5 ? Room: ? MW530 Gender: ? M ?Can Maker: ?? [id number] : ?1955 ? Requested By: RAFA BRIGHT MD Order Number: [id number] ? Reading MD: ?? FRIEDROSALINDA JACKIE MD ? Measurements Intervals ?Leander ? Rate: ? 77 ? P: ?-40 MT: ? 144 ?QRS: ?73 QRSD: ? 94 [...] [facility] Test Date: 2014-04-03 Pat Name: JIEMNEZ BARKLEY Department: [place] [address] Room: [facility] Gender: M Can Maker: [id number] : 1955 Requested By: RAFA BRIGHT MD Order Number: [id number] Reading MD: SHMUEL CERVANTES Measurements Intervals Leander Rate: 77 P: -40 MT: 144 QRS: 73 QRSD: 94 T: 76 QT: 400 QTc: 453 Interpretive Statements SINUS RHYTHM Normal ECG. Compared to ECG 01/18/2014 00:50:23 No significant change I reviewed the tracing and agreed or edited the report. ElectronicallySigned On 04-06-14 08:40:11 EDT by SHMUEL MEJIA MD. Rafa Bright MD CARDIAC ECG ORDERABL ES Performing Organization Address [facility] de Phone Number [facility] EKG * MAGNESIUM (04/03/2014 3:10 EDT) Magnesium 1.8 1.7 - 2.8 mg/dl [facility] 04/03/2014 3:10 EDT 04/03/2014 3:14 EDT Rafa Bright MD CHEMISTRY & BLOOD GA S ORDERABLES Performing Organization Address [facility] Co de Phone Number [facility] [address] [place] [address] * (ABNORMAL) DIFFERENTIAL (04/03/2014 3:10 EDT) Neutrophils [...] [facility] RBC Morphology 1+ ULISES [facility] Comment:Anisocytosis Type of Diff: Manual [facility] 04/03/2014 3:10 EDT 04/03/2014 3:14 EDT Rafa Bright MD HEMATOLOGY & PF4 ORD ERABLES [facility] [address] [place] [address] * (ABNORMAL) HEMAGRAM (04/03/2014 3:10 EDT) WBC [...] & PF4 ORD ERABLES Performing Organization Address [facility] Co fl Phone Number [facility] [address] [place] [address] * TSH (04/03/2014 3:10 EDT) TSH 3.46 0.35 - 5.00 uIU/ml [facility] 04/03/2014 3:10 EDT 04/03/2014 3:14 EDT Rafa Bright MD CHEMISTRY & BLOOD GA S ORDERABLES Performing Organization Address [facility] Phone Number [facility] [address] [place] [address] * BILIRUBIN, TOTAL (04/03/2014 3:10 EDT) Bilirubin, Total <0.5 <1.4 mg/dl [facility] 04/03/2014 3:10 EDT 04/03/2014 3:14 EDT Rafa Bright MD CHEMISTRY & BLOOD GA S ORDERABLES Performing Organization Address [facility] Phone Number [facility] [address] [place] [address] * (ABNORMAL) GLUCOSE, SERUM (04/03/2014 3:10 EDT) Glucose, Serum 136(H) 70 - 100 mg/dl [facility] 04/03/2014 3:10 EDT 04/03/2014 3:14 EDT Rafa Bright MD CHEMISTRY & BLOOD GA S ORDERABLES Performing Organization Address [facility] Phone Number [facility] [address] [place] [address] * HEMOGLOBIN A1C (04/03/2014 3:10 EDT) Hemoglobin [...] BLOOD GA S ORDERABLES Performing Organization Address [facility] de Phone Number [facility] [address] [place] [address] * (ABNORMAL) AST (04/03/2014 3:10 EDT) AST 274(H) 15 - 46 U/L [facility] 04/03/2014 3:10 EDT 04/03/2014 3:14 EDT Rafa Bright MD CHEMISTRY & BLOOD GA S ORDERABLES Performing Organization Address [facility] de Phone Number [facility] [address] [place] [address] * (ABNORMAL) ALT (04/03/2014 3:10 EDT) ALT 292(H) 21 - 72 U/L [facility] 04/03/2014 3:10 EDT 04/03/2014 3:14 EDT Rafa Bright MD CHEMISTRY & BLOOD GA S ORDERABLES Performing Organization Address [facility] de Phone Number [facility] [address] [place] [address] * ALKALINE PHOSPHATASE (04/03/2014 3:10 EDT) Total Alkaline Phosphatase 84 38 - 126 U/L [facility] 04/03/2014 3:10 EDT 04/03/2014 3:14 EDT Rafa Bright MD CHEMISTRY & BLOOD GA S ORDERABLES Performing Organization Address [facility] Co de Phone Number [facility] [address] [place] [address] * (ABNORMAL) PTT (04/03/2014 3:10 EDT) PTT 97(H) 26 - 37 secs [facility] Comment:Therapeutic Heparin range: 65-100 seconds Blood specimen (specimen) 04/03/2014 3:10 EDT 04/03/2014 3:14 EDT Rafa Bright MD HEMATOLOGY & PF4 ORD ERABLES Performing Organization Address [facility] de Phone Number [facility] [address] [place] [address] * PROTIME (04/03/2014 3:10 EDT) Pro Time [...] & PF4 ORD ERABLES Performing Organization Address [facility] Co de Phone Number [facility] [address] [place] [address] * CREATININE (04/03/2014 3:10 EDT) Creatinine 0.66 0.66 - 1.25 mg/dl [facility] GFR, Calculated >60 >60 ml/min/1.7 3m2 [facility] Blood specimen (specimen) 04/03/2014 3:10 EDT 04/03/2014 3:14 EDT Rafa Bright MD CHEMISTRY & BLOOD GA S ORDERABLES Performing Organization Address [facility] Phone Number [facility] [address] [place] [address] * (ABNORMAL) BUN (04/03/2014 3:10 EDT) BUN 9(L) 10 - 26 mg/dl [facility] Blood specimen (specimen) 04/03/2014 3:10 EDT 04/03/2014 3:14 EDT Rafa Bright MD CHEMISTRY & BLOOD GA S ORDERABLES Performing Organization Address [facility] Phone Number [facility] [address] [place] [address] * ELECTROLYTES (04/03/2014 3:10 EDT) Sodium 143 136 - 145 mEq/L [facility] Potassium 4.0 3.5 - 5.0 mEq/L [facility] Chloride 103 96 - 110 mEq/L [facility] CO2 28 24 - 32 mEq/L [facility] Blood specimen (specimen) 04/03/2014 3:10 EDT 04/03/2014 3:14 EDT Rafa Bright MD CHEMISTRY & BLOOD GA S ORDERABLES Performing Organization Address [facility] Phone Number [facility] [address] [place] [address] * CK MB WITH TOTAL CK (04/03/2014 3:10 EDT) CK 133 0 - 250 U/L [facility] MB 1.90 <4.21 ng/ml [facility] Blood specimen (specimen) 04/03/2014 3:10 EDT 04/03/2014 3:14 EDT Rafa Bright MD CHEMISTRY & BLOOD GA S ORDERABLES Performing Organization Address [facility]/State/ZIP Co de Phone Number [facility] [address] [place] [address] * TROPONIN I (04/03/2014 3:10 EDT) Troponin I (ng/mL) <0.034 <0.034 ng/ml [facility] Blood specimen (specimen) 04/03/2014 3:10 EDT 04/03/2014 3:14 EDT Rafa Bright MD CHEMISTRY & BLOOD GA S ORDERABLES Performing Organization Address [facility] Co de Phone Number [facility] [address] [place] [address] * (ABNORMAL) ETHANOL, BLOOD (04/03/2014 3:10 EDT) Pathologist [facility] Ethanol 230(H) <10 mg/dl [facility] Blood specimen (specimen) 04/03/2014 3:10 EDT 04/03/2014 3:14 EDT Rafa Bright MD CHEMISTRY & BLOOD GA S ORDERABLES Performing Organization Address [facility] de Phone Number [facility] [address] [place] [address] documented in this encounter Visit Diagnoses Diagnosis Chest pain- Primary Chest pain, unspecified Chest pain Chest pain, unspecified ETOH abuse Alcohol abuse, unspecified CAD (coronary artery disease) Coronary atherosclerosis of unspecified type of vessel, osage or graft ETOH abuse Alcohol abuse, unspecified [...] 03/17 documented in this encounter Care Teams Cycle Liaison Relationship Specialty Start Date End Date Sai Garg MD [address] [place] [phone] PCP - General 01/03/14 11/11/14 documented as of this encounter
--- OUTSIDE RECORDS SUMMARY | 2024-04-17 08:44 | XMS_ITS | Encounter Summary ---
Author Organization [facility] Address [address] [place] [address] Care Team Providers Care Activities Aide Name Role Phone Erich Sethi MD Primary Care Provider [phone] Sai Garg MD Primary Care Provi glynn Encounter Details Date Type Department Care Team (Late st Contact Info) Description 11/21/2014 Historical Results Only [facility] Radiology Results [address] [place] [address] Fredo Moffett MD [address] [place] [address] Social History Tobacco Use Types Packs/Day Years [...] CC: ? Transcribed Date/Time: 11/22/2014 (1823) ? Pairer: BONY ? Printed Date/Time: 02/18/2019 (8989) ? PAGE 1 ? Signed Report ? [...] Vitale MD CC: Transcribed Date/Time: 11/22/2014 (1823) Pairer: BONY Printed Date/Time: 02/18/2019 (0554) PAGE 1 Signed Report Fredo Moffett MD IMG DIAGNOSTIC IMAGI NG ORDERABLES documented in this encounter Visit Diagnoses Not on filedocumented in this encounter Care Teams Activities Aide Relationship Specialty Start Date End Date Erich Sethi MD [address] [place] [phone] PCP - General 11/12/14 03/11/15 Sai Garg MD [address] [place] [phone] PCP - General 03/12/15 11/04/19 documented as of this encounter
--- OUTSIDE RECORDS SUMMARY | 2024-04-17 08:44 | XMS_ITS | Encounter Summary ---
Author Organization [facility] Address [address] [place] [address] Care Team Providers Care Log Loader Name Role Phone Sai Garg MD Primary Care Provi glynn Reason for Visit * Reason Onset Date Comments Appointment Related 02/02/2014 PO Encounter Details Date Type Department Care Team (Late st Contact Info) Description 02/02/2014 Telephone [facility] Cardiology - [place] [address] [place] [address] Gala Campbell, CHARY [address] [facility] Level [address] [place] [phone] Appointment Related (POH) Social History [...] on filedocumented in this encounter Care Teams Log Loader Relationship Specialty Start Date End Date Sai Garg MD [address] [place] [phone] PCP - General 01/03/14 11/11/14 documented as of this encounter
--- OUTSIDE RECORDS SUMMARY | 2024-04-17 08:44 | XMS_ITS | Encounter Summary ---
Author Organization [facility] Address [address] [place] [address] Care Team Providers Care Charge Attendant Name Role Phone Sai Garg MD Primary Care Provi glynn Reason for Referral * (Routine) - Closed Specialty Diagnoses / Procedures Referred By Contac t Referred To Contact Juliocesar Schultz MD [address] [place] [phone] Referral ID Status Reason Start Date Expiration Date V isits Requested Visits Authorized [id number] Closed Specialty Services Required 01/23/2014 1 1 * (Routine) - Closed Specialty Diagnoses / Procedures Referred By Contac t Referred To Contact Juliocesar Schultz MD [address] [place] [phone] Referral ID Status Reason Start Date Expiration Date V isits Requested Visits Authorized [id number] Closed Specialty Services Required 01/23/2014 1 1 * (Routine) - Closed Specialty Diagnoses / Procedures Referred By Contabida t Referred To Contact Juliocesar Schultz MD [address] [place] [address] Referral ID Status Reason Start Date Expiration Date V isits Requested Visits Authorized [id number] Closed Specialty Services Required 01/23/2014 1 1 * Consult (Routine) - Closed Specialty Diagnoses / Procedures Referred By Contac t Referred To Contact Diagnoses ETOH abuse NSTEMI (non-ST elevated myocardial infarction) ([facility]) Juliocesar Schultz MD [address] [facility] [address] [place] [address] Referral ID Status Reason Start Date Expiration Date V isits Requested Visits Authorized [id number] Closed Specialty Services Required 01/22/2014 1 1 Question Answer Halfway Referral - Assessment: CP Status Halfway Referral - Disease Mgmt and Education about: Medication Mgmt Physical therapy is needed for: Evaluation Encounter Details Date Type Department Care Team (Late st Contact Info) Description 01/18/2014 0:04 EDT - 01/23/2014 18:19 EDT Hospital Encounter [facility] Cardiac/Telemetry Unit [address] [place] [address] Golden Rutherford MD [address] [facility] Level [address] [place] [address] NSTEMI (non-ST elevated myocardial infarction) ([facility]) (Primary Dx); Delirium tremens ([facility]); ETOH abuse; Alcohol withdrawal ([facility]) Discharge Disposition: Home or Self Care [...] Patient: Follow-Up Labs and Tests: Home Health Muse-Kd-Zjhu Encounter: I certify that this patient is under my care and that I, or a Medicare authorized non-physician provider (RADIO AERIAL INSTALLER or PA) working with me, had a ghni-ei-mhll encounter with this patient on 01/23/2014 that was in whole or in part related to the reason the patient needs home health care. The findings of thisencounter indicate that the patient requires assisted or therapist services for the reasons listed below. senior living services: - are required to train the [...] 01/22/2014 0743 EDT YOUR CHRONIC CARE INITIATIVE LICENSED PHYSICAL THERAPIST ASSISTANT: Lisette Garcia [phone] documented in this encounter Medications at Time [...] with Home Health Services. Lisbeth Lopez, RN #[id number] * Alisson Welsh, PT - 01/23/2014 1105 EDT [facility] Physical Therapy Contact Note Date of Service: 01/23/2014 PT Referral received. Chart reviewed yesterday. Checked in this morning to complete evaluation. Patient just returning to room after [facility]- Discussed mobility status with RN who feels [...] - D/C dilaudid FEN: cardiac diet after [facility] Code: FULL DVT PPx: SCDs, hold heparin for [facility] Disposition: Pending clinical course Juliocesar Schultz MD 01/23/2014 8:54 PGY1 #0348 * Alisson Welsh, PT - 01/22/2014 1615 EDT [facility] Physical Therapy Contact Note Date of Service: [...] withdrawal. Current Living Arrangements: Patient lives in [place] Current Social, Health Care and Community Supports: [...] Met with patient and explained role. Plan [facility] tomorrow if available. Once stable he will d/c home with home health services for CP assessment, med compliance and PT (patient c/o weak legs and slightly dizzy). [facility] can transport. CM will follow. Lisbeth Lopez RN [facility] #[id number] * Juliocesar Schultz MD - 01/22/2014 0901 [...] uric acid ETOH Abuse: DTs resolved - [facility] protocol - daily MVM, folic [...] wall - D/C dilaudid FEN: NPO for [facility] Code: FULL DVT PPx: hold heparin in setting of worsening thrombocytopenia, SCDs Disposition: Pending clinical course Juliocesar Schultz MD 01/21/2014 8:00 PGY1 #2147 Reviewed with cards fellow. Pt seen and examined. May be able to eval pt via cardiolite and risk stratify. Pt seen and examined and otherwise as above. Chico Posey MD Cardiology Pager [phone] [facility] * Chico Posey MD - [...] course Juliocesar Schultz MD 01/20/2014 9:08 PGY1 #2986 Pt seen and examined. Agree with above. Still a bit agitated. Thoughts wonder, some difficulty with place and time/yr VSS Agree with stopping heparin. Arrangements underway for medicine eval. Will defer cath for now and reconsider each am depending on status. Chico Posey MD Cardiology Pager [phone] [facility] * Juliocesar Schultz MD - [...] also like us to send him to [facility] and scare him so he doesn't go back to drinking. Jimenez will call me later today with list of missing meds. I will follow up with Jimenez once his mental status has improved. Lisbeth Lopez RN [facility] #[id number] * Chico Posey MD - 01/19/2014 1136 EDT Cardiology progress note CC: CP Dx: [...] Q8H Sridevi Alvarez MD 3 mL at 01/19/14 0120 ??? [...] cath tomorrow. Chico Posey MD Cardiology Pager [phone] [facility] * Lisbeth Lopez RN - 01/19/2014 1106 EDT 01/19: Patient withdrawing, agitated and in restraints. No family/friends listed. Will wait until he's cleared to meet. Lisbeth Lopez RN [facility] #[id number] * Gerhard Willett MD - 01/18/2014 6211 EDT Cardiology progress note CC: CP Dx: [...] Notes * Golden Ellison MD - 01/17/2014 7308 EDT Cardiology Admission H&P Admission Date: 01/18/2014 [...] also received morphine prior to arrival at [facility]. Currently, he reports continued 04/26 left sided chest pain which is unrelieved by morphine and by any of the interventions at the OSH. He reports his last drink containing alcohol was at 9am this morning and he had 3 beers. Prior Cardiac Imaging: [facility] 12/2013: Diagnostic Cardiac Study Results Left main: [...] on file Social History Narrative Lives in [place], [place] in a trailer. Lives with a [...] Pending clinical course Above plan discussed with ship/rec/doc control, Dr Wesley Alvarez MD PGY-3 # 0981 Patient seen and evaluated. Agree with findings assessment and plan as outlined above. Chest pain and positive troponin after recent stent placement. Will proceed with cath Sunday. Golden Ellison MD Attending in Cardiology documented in this encounter Procedure Notes * Elias Glass Jr., MD - 01/23/2014 3889 EDT Cardiovascular Catheterization Laboratory Preliminary Report -- [...] artery Procedure: He was brought to the [facility] for the procedure: Diagnostic [...] is being treated with benzodiazepines on the [facility] protocol. Per the MAR history, [...] for recommendations regarding management of alcohol withdrawal. [facility] PS Patient Active Problem List Diagnosis Date [...] Attending, Dr Earle Alvarez MD PGY-3 # 0976 Medicine consult service I have reviewed the [...] discharge and every two hours while on OVEN ATTENDANT or epidural. D: patient complains of 6/10 [...] Uses call appropriately, Informed by MD that [facility] will take place tomorrow, 01/23. Met with Drug Abuse Resistance Education Officer. Action: Assessment completed, meds given. DC planning [...] withdrawal. Pt no longer scoring today, plan [facility] a.m. Pt sleeping, NAD, bed alarm on [...] continuing need for restraint and document per [facility] policy Data: Pt has not been scoring on CIWA and has been appropriate this afternoon. Action: Posy vest restraint removed and Pt instructed to call when he needs to get up an ambulate. Pt continues to have a 1:1 SPECIAL ASSETS OFFICER sitter. Response: Pt said he understood and [...] posy vest. Action: VS and assessment completed. SPECIAL ASSETS OFFICER sitter in the room with the Pt. [...] out of foot-end of bed, while wearing Dickinson vest. He disconnected IV and pulled off [...] - Luis F Elizabeth RN - 01/19/2014 9877 EDT Problem: Restraint Management Goal: Maintain Patient???s [...] Pt continues to be verbally abusive to SPECIAL ASSETS OFFICER sitter who was helping him sit up to eat. * Plan of Care - Luke Cooper RN - 01/19/2014 2875 EDT Problem: CIRCULATORY STATUS Goal: Patient Has [...] ordered- restraints placed; bilateral soft wrist and coretta vest. CIWA protocol continued. VS and assessment [...] cleaned up, linens changed. R: Will CTM. [facility] RN * Plan of Care - Chico Corrales RN - 01/18/2014 0419 EDT Problem: CIRCULATORY STATUS Goal: Patient Has Stable Vital Signs And Fluid Balance Outcome: Ongoing Data: Patient arrived to [place] [address]. Patient is in NSR with a HR [...] ETOH abuse NSTEMI (non-ST elevated myocardial infarction) ([facility]) Ordered: 01/22/2014 PROVIDER FOLLOW-UP INSTRUCTIONS Outpatient [...] EST) 09/29/2015 13:2 4 EST Scan 2 Maintenance Pipefitter PROCEDURE/MINOR AMITA GICAL ORDERABLES * STRESS TEST - SCANNED (02/03/2014 9:21 EDT) Anatomical Region Laterality Modality Other 02/03/2014 9:21 EDT Scan 2 Maintenance Pipefitter IMG OTHER IMAGING O RDERABLES * INVASIVE CARDIOLOGY REPORT-SCANNED (01/27/2014 11:34 EDT) 01/27/2014 11:3 4 EDT Scan 2 Maintenance Pipefitter PROCEDURE/MINOR AMITA GICAL ORDERABLES * ECG REPORT - SCANNED (01/27/2014 11:34 EDT) 01/27/2014 11:3 4 EDT Scan 2 Maintenance Pipefitter PROCEDURE/MINOR AMITA GICAL ORDERABLES * ECG REPORT - SCANNED (01/27/2014 11:34 EDT) 01/27/2014 11:3 4 EDT Scan 2 Maintenance Pipefitter PROCEDURE/MINOR AMITA GICAL ORDERABLES * LEFT HEART CATH (01/23/2014 11:39 EDT) Anatomical Region Laterality Modality Other 01/23/2014 11:3 9 EDT Narrative 01/23/2014 19:48 EDT [address] [place] [address] Catheterization Laboratory Study Patient: Jimenez Barkley ? Study Date: ?01/23/2014 ?Accession #: ? [id number] : ? 1955 Diagnostic Attending: ??Elias Glass [...] after PCI. SUMMARY: 1. HPI and indications: Yed-ZO-envjtlny myocardial infarction. 2. 2nd obtuse marginal: Ostial lesion: There is a 55% stenosis. This lesion is ?? unchanged from a prior study. RECOMMENDATIONS: Patient management should include medical therapy. HISTORY: Rst-FW-miordgzx myocardial infarction. ??PMH: ?? Chronic lung disease. [...] Right radial artery access. A 6 FR/10 Atmospheirumseedtag Sheath [place] SS .021 sheath was ?? advanced into [...] MD 2014-01-23 19:47 Procedure Note 01/23/[address] [place] [address] Catheterization Laboratory Study Patient: Jimenez Barkley Study [...] after PCI. SUMMARY: 1. HPI and indications: Hhs-DU-fdnqtezj myocardial infarction. 2. 2nd obtuse marginal: Ostial lesion: There is a 55% stenosis. Thislesion is unchanged from a prior study. RECOMMENDATIONS: Patient management should include medical therapy. HISTORY: Pmi-DW-xxcucpwm myocardial infarction. PMH: Chronic lung disease.Functional status: [...] Right radial artery access. A 6 FR/10 At[employer]heirumseed[employer] Sheath [place] SS .021sheath was advanced into the vessel. [...] BLOOD GA S ORDERABLES Performing Organization Address City/[facility] Co de Phone Number [facility] [address] [place] [address] * BUN (01/23/2014 6:20 EDT) BUN 18 10 - 26 mg/dl [facility] Blood specimen (specimen) 01/23/2014 6:20 EDT 01/23/2014 6:38 EDT Sridevi Alvarez MD CHEMISTRY & BLOOD GA S ORDERABLES Performing Organization Address City/[facility]/ZIP Co de Phone Number [facility] [address] [place] [address] * ELECTROLYTES (01/23/2014 6:20 EDT) Sodium 136 136 - 145 mEq/L [facility] Potassium 4.6 3.5 - 5.0 mEq/L [facility] Chloride 103 96 - 110 mEq/L [facility] CO2 24 24 - 32 mEq/L [facility] Blood specimen (specimen) 01/23/2014 6:20 EDT 01/23/2014 6:38 EDT Sridevi Alvarez MD CHEMISTRY & BLOOD GA S ORDERABLES Performing Organization Address [facility] Co de Phone Number [facility] [address] [place] [address] * (ABNORMAL) HEMAGRAM (01/23/2014 6:20 EDT) WBC [...] Organization Address [facility]/ZIP Co de Phone Number [facility] [address] [place] [address] * INPATIENT ADD-ON (01/22/2014 7:25 EDT) Tests to be added PHOSPHOROUS [facility] Number for problems M5 [facility] Accession number [id number] [facility] 01/22/2014 7:25 EDT 01/22/2014 7:26 EDT Juliocesar Schultz MD HEMATOLOGY & PF4 O RDERABLES Performing Organization Address [facility] Co de Phone Number [facility] [address] [place] [address] * PHOSPHORUS (01/22/2014 6:21 EDT) Phosphorus 4.5 2.5 - 4.5 mg/dl [facility] 01/22/2014 6:21 EDT 01/22/2014 6:59 EDT Sridevi Alvarez MD CHEMISTRY & BLOOD GA S ORDERABLES Performing Organization Address [facility] Phone Number [facility] [address] [place] [address] * MAGNESIUM (01/22/2014 6:21 EDT) Magnesium 1.7 1.7 - 2.8 mg/dl [facility] Blood specimen (specimen) 01/22/2014 6:21 EDT 01/22/2014 6:59 EDT Juliocesar Schultz MD CHEMISTRY & BLOOD GAS ORDERABLES Performing Organization Address [facility] de Phone Number [facility] [address] [place] [address] * CREATININE (01/22/2014 6:21 EDT) Creatinine 0.70 0.66 - 1.25 mg/dl [facility] GFR, Calculated >60 >60 ml/min/1.7 3m2 [facility] Blood specimen (specimen) 01/22/2014 6:21 EDT 01/22/2014 6:59 EDT Sridevi Alvarez MD CHEMISTRY & BLOOD GA S ORDERABLES Performing Organization Address [facility] Co de Phone Number [facility] [address] [place] [address] * BUN (01/22/2014 6:21 EDT) BUN 15 10 - 26 mg/dl [facility] Blood specimen (specimen) 01/22/2014 6:21 EDT 01/22/2014 6:59 EDT Sridevi Alvarez MD CHEMISTRY & BLOOD GA S ORDERABLES Performing Organization Address [facility] Co de Phone Number [facility] [address] [place] [address] * (ABNORMAL) ELECTROLYTES (01/22/2014 6:21 EDT) Sodium 136 136 - 145 mEq/L [facility] Potassium 4.1 3.5 - 5.0 mEq/L [facility] Chloride 104 96 - 110 mEq/L [facility] CO2 22(L) 24 - 32 mEq/L [facility] Blood specimen (specimen) 01/22/2014 6:21 EDT 01/22/2014 6:59 EDT Sridevi Alvarez MD CHEMISTRY & BLOOD GA S ORDERABLES Performing Organization Address [facility] de Phone Number [facility] [address] [place] [address] * (ABNORMAL) HEMAGRAM (01/22/2014 6:21 EDT) WBC [...] PF4 ORD ERABLES [facility] [address] [place] [address] * RIBS UNI 2 VIEWS LEFT (01/21/2014 [...] STRESS ? Room: ? Gender: ? M ?Banjo Repair Person: ?[id number] : ?1955 ? Requested By: GISELLE PAYNE Order Number: [id number] ?Reading : ? Interpretive Statements Procedure Note 01/21/2014 For report of this Waveform, see associated Image Study. Jacob Eubanks Stress Test Date: 2014-01-21 Pat Name: JIMENEZ BARKLEY Department: STRESS Room: Gender: M Banjo Repair Person: [id number] : 1955 Requested By: GISELLE PAYNE Order Number: [id number] Gwen CRAFT: Interpretive Statements Kenyon Sullivan MD CARDIAC NM ORDERABLE S * NM CARDIAC SPECT STUDY (01/21/2014 9:53 EDT) Anatomical Region Laterality Modality Other 01/21/2014 9:53 EDT Narrative 01/21/2014 14:55 EDT *Nuclear Cardiology and Stress Laboratory* [address] [place] [address] *Interpreting Groups:* *[facility] and Department of Radiology* Myocardial [...] History: ??58 y.o male recent discharge from [facility] on 01/03/14 with NSTEMI s/p PCI to [...] +------+ + 8 min ?? 76 110/64 () ? +--------+--+ + +------+ + 9 min [...] of this study was interpreted by Nuclear Digital Sales Executive ??Germain Ayala. - The imaging portion of this study was interpreted by Nuclear Radiologist ??Aayush Carpenter. - The Stress ECG portion of this study was interpreted by Dr. Groves ?Demian. Electronically signed by Germain Ayala MD 01/21/2014 14:55 Procedure Note 01/21/2014 *Nuclear Cardiology and Stress Laboratory* [address] [place] [address] *Interpreting Groups:* *[facility] Department [...] History: 58 y.o male recent discharge from [facility] on 01/03/14 with NSTEMIs/p PCI to LAD, [...] this study was interpreted by NuclearCardiologist Dr. Germain Ayala. - The imaging portion of this study was interpreted by Nuclear RadiologistDr. Aayush Carpenter. - The Stress ECG portion of this study was interpreted by Dr. Germain Ayala. Electronically signed by Germain Ayala MD 01/21/2014 14:55 Kenyon Sullivan MD CARDIAC NM ORDERABLE S * INPATIENT ADD-ON (01/21/2014 8:05 EDT) Tests to be added URIC ACID [facility] Number for problems [id number] [facility] Accession number [id number] [facility] 01/21/2014 8:05 EDT 01/21/2014 8:06 EDT Juliocesar Schultz MD HEMATOLOGY & PF4 O RDERABLES Performing Organization Address [facility] Co de Phone Number [facility] [address] [place] [address] * CK MB WITH TOTAL CK (01/21/2014 7:28 EDT) CK 101 0 - 250 U/L [facility] MB 0.37 <4.21 ng/ml [facility] Blood specimen (specimen) 01/21/2014 7:28 EDT 01/21/2014 7:34 EDT Kenyon Sullivan MD CHEMISTRY & BLOOD GA S ORDERABLES Performing Organization Address City/[facility] Co de Phone Number [facility] [address] [place] [address] * INPATIENT ADD-ON (01/21/2014 6:45 EDT) Tests to be added MAGNESIUM [facility] Number for problems [address] [facility] Accession number [id number] [facility] 01/21/2014 6:45 EDT 01/21/2014 6:47 EDT Lexi Cade MD HEMATOLOGY & PF4 ORD ERABLES Performing Organization Address City/[facility] Co de Phone Number [facility] [address] [place] [address] * URIC ACID (01/21/2014 6:01 EDT) Uric Acid 4.1 3.9 - 9.0 mg/dl [facility] 01/21/2014 6:01 EDT 01/21/2014 6:16 EDT Sridevi Alvarez MD CHEMISTRY & BLOOD GA S ORDERABLES Performing Organization Address [facility] Co de Phone Number [facility] [address] [place] [address] * (ABNORMAL) MAGNESIUM (01/21/2014 6:01 EDT) Magnesium 1.6(L) 1.7 - 2.8 mg/dl [facility] 01/21/2014 6:01 EDT 01/21/2014 6:16 EDT Sridevi Alvarez MD CHEMISTRY & BLOOD GA S ORDERABLES Performing Organization Address [facility] de Phone Number [facility] [address] [place] [address] * CREATININE (01/21/2014 6:01 EDT) Creatinine 0.70 0.66 - 1.25 mg/dl [facility] GFR, Calculated >60 >60 ml/min/1.7 3m2 [facility] Blood specimen (specimen) 01/21/2014 6:01 EDT 01/21/2014 6:16 EDT Sridevi Alvarez MD CHEMISTRY & BLOOD GA S ORDERABLES Performing Organization Address [facility] Co de Phone Number [facility] [address] [place] [address] * BUN (01/21/2014 6:01 EDT) BUN 15 10 - 26 mg/dl [facility] Blood specimen (specimen) 01/21/2014 6:01 EDT 01/21/2014 6:16 EDT Sridevi Alvarez MD CHEMISTRY & BLOOD GA S ORDERABLES Performing Organization Address [facility] Co de Phone Number [facility] [address] [place] [address] * (ABNORMAL) ELECTROLYTES (01/21/2014 6:01 EDT) Sodium 135(L) 136 - 145 mEq/L [facility] Potassium 4.0 3.5 - 5.0 mEq/L [facility] Chloride 103 96 - 110 mEq/L [facility] CO2 23(L) 24 - 32 mEq/L [facility] Blood specimen (specimen) 01/21/2014 6:01 EDT 01/21/2014 6:16 EDT Sridevi Alvarez MD CHEMISTRY & BLOOD GA S ORDERABLES Performing Organization Address [facility] de Phone Number [facility] [address] [place] [address] * (ABNORMAL) HEMAGRAM (01/21/2014 6:01 EDT) WBC [...] Organization Address [facility] Co de Phone Number [facility] [address] [place] [address] * INPATIENT ADD-ON (01/21/2014 2:10 EDT) Tests to be added MAGNESIUM, PHOSPHOROU S [facility] Number for problems Not Given [facility] Accession number [id number] [facility] 01/21/2014 2:10 EDT 01/21/2014 2:42 EDT Ghulam Ray MD HEMATOLOGY & PF4 OR DERABLES Performing Organization Address [facility] Co de Phone Number [facility] [address] [place] [address] * INPATIENT ADD-ON (01/20/2014 9:10 EDT) Tests to be added PERIPHERAL SMEAR REVIEW FOR THROMBOCYTOPENIA [facility] Number for problems [address] [facility] Accession number [id number] [facility] 01/20/2014 9:10 EDT 01/20/2014 9:11 EDT Juliocesar Schultz MD HEMATOLOGY & PF4 O RDERABLES Performing Organization Address [facility] Co de Phone Number [facility] [address] [place] [address] * PHOSPHORUS (01/20/2014 8:02 EDT) Phosphorus 4.5 2.5 - 4.5 mg/dl [facility] 01/20/2014 8:02 EDT 01/20/2014 8:14 EDT Sridevi Alvarez MD CHEMISTRY & BLOOD GA S ORDERABLES Performing Organization Address [facility] Co de Phone Number [facility] [address] [place] [address] * (ABNORMAL) MAGNESIUM (01/20/2014 8:02 EDT) Magnesium 1.6(L) 1.7 - 2.8 mg/dl [facility] 01/20/2014 8:02 EDT 01/20/2014 8:14 EDT Sridevi Alvarez MD CHEMISTRY & BLOOD GA S ORDERABLES Performing Organization Address [facility] de Phone Number [facility] [address] [place] [address] * PROSPER DIFF COMMENT (01/20/2014 8:02 EDT) [...] & PF4 ORD ERABLES Performing Organization Address [facility] de Phone Number [facility] [address] [place] [address] * SLIDE REQUEST (01/20/2014 8:02 EDT) Note A smear is filed in the Hematology lab [facility] 01/20/2014 8:02 EDT 01/20/2014 8:14 EDT Sridevi Alvarez MD HEMATOLOGY & PF4 ORD ERABLES Performing Organization Address [facility] Co de Phone Number [facility] [address] [place] [address] * (ABNORMAL) PTT (01/20/2014 8:02 EDT) PTT 59(H) 26 - 37 secs [facility] Comment:Therapeutic Heparin range: 65-100 seconds Blood specimen (specimen) 01/20/2014 8:02 EDT 01/20/2014 8:14 EDT Sridevi Alvarez MD HEMATOLOGY & PF4 ORD ERABLES Performing Organization Address [facility] de Phone Number [facility] [address] [place] [address] * (ABNORMAL) CREATININE (01/20/2014 8:02 EDT) Creatinine 0.63(L) 0.66 - 1.25 mg/dl [facility] GFR, Calculated >60 >60 ml/min/1.7 3m2 [facility] Blood specimen (specimen) 01/20/2014 8:02 EDT 01/20/2014 8:14 EDT Sridevi Alvarez MD CHEMISTRY & BLOOD GA S ORDERABLES Performing Organization Address [facility] de Phone Number [facility] [address] [place] [address] * BUN (01/20/2014 8:02 EDT) BUN 10 10 - 26 mg/dl [facility] Blood specimen (specimen) 01/20/2014 8:02 EDT 01/20/2014 8:14 EDT Sridevi Alvarez MD CHEMISTRY & BLOOD GA S ORDERABLES Performing Organization Address [facility] de Phone Number [facility] [address] [place] [address] * ELECTROLYTES (01/20/2014 8:02 EDT) Sodium 138 136 - 145 mEq/L [facility] Potassium 3.8 3.5 - 5.0 mEq/L [facility] Chloride 104 96 - 110 mEq/L [facility] CO2 25 24 - 32 mEq/L [facility] Blood specimen (specimen) 01/20/2014 8:02 EDT 01/20/2014 8:14 EDT Sridevi Alvarez MD CHEMISTRY & BLOOD GA S ORDERABLES Performing Organization Address [facility]/ZIP Co de Phone Number [facility] [address] [place] [address] * (ABNORMAL) HEMAGRAM (01/20/2014 8:02 EDT) WBC [...] Organization Address [facility] Co de Phone Number [facility] [address] [place] [address] * ECG REPORT - SCANNED (01/19/2014 14:15 EDT) 01/19/2014 14:1 5 EDT Scan 2 Maintenance Pipefitter PROCEDURE/MINOR AMITA GICAL ORDERABLES * (ABNORMAL) CK MB WITH TOTAL CK (01/19/2014 13:52 EDT) CK 444(H) 0 - 250 U/L [facility] MB 1.89 <4.21 ng/ml [facility] Blood specimen (specimen) 01/19/2014 13:52 EDT 01/19/2014 14:23 EDT Kenyon Sullivan MD CHEMISTRY & BLOOD GA S ORDERABLES Performing Organization Address [facility] Co de Phone Number [facility] [address] [place] [address] * (ABNORMAL) PTT (01/19/2014 5:40 EDT) PTT 65(H) 26 - 37 secs [facility] Comment:Therapeutic Heparin range: 65-100 seconds Blood specimen (specimen) 01/19/2014 5:40 EDT 01/19/2014 5:55 EDT Sridevi Alvarez MD HEMATOLOGY & PF4 ORD ERABLES Performing Organization Address [facility] de Phone Number [facility] [address] [place] [address] * (ABNORMAL) CREATININE (01/19/2014 5:40 EDT) Creatinine 0.60(L) 0.66 - 1.25 mg/dl [facility] GFR, Calculated >60 >60 ml/min/1.7 3m2 [facility] Blood specimen (specimen) 01/19/2014 5:40 EDT 01/19/2014 5:55 EDT Sridevi Alvarez MD CHEMISTRY & BLOOD GA S ORDERABLES Performing Organization Address [facility] de Phone Number [facility] [address] [place] [address] * BUN (01/19/2014 5:40 EDT) BUN 10 10 - 26 mg/dl [facility] Blood specimen (specimen) 01/19/2014 5:40 EDT 01/19/2014 5:55 EDT Sridevi Alvarez MD CHEMISTRY & BLOOD GA S ORDERABLES Performing Organization Address [facility] Co de Phone Number [facility] [address] [place] [address] * ELECTROLYTES (01/19/2014 5:40 EDT) Sodium 138 136 - 145 mEq/L [facility] Potassium 3.6 3.5 - 5.0 mEq/L [facility] Chloride 104 96 - 110 mEq/L [facility] CO2 25 24 - 32 mEq/L [facility] Blood specimen (specimen) 01/19/2014 5:40 EDT 01/19/2014 5:55 EDT Sridevi Alvarez MD CHEMISTRY & BLOOD GA S ORDERABLES Performing Organization Address [facility] Co de Phone Number [facility] [address] [place] [address] * (ABNORMAL) HEMAGRAM (01/19/2014 5:40 EDT) WBC 5.89 4.0 - 10.4 K/cmm [facility] RBC 4.40 4.36 - 5.78 M/cmm [facility] Hemoglobin 14.0 13.8 - 17.3 gm/dl [facility] HCT 40.9 39.5 - 50.2 % [facility] MCV 93 81 - 95 fl [facility] MCH 31.8 27.6 - 33.0 pg [facility] MCHC 34.2 32.8 - 36.4 gm/dl [facility] PLT 83(L) 141 - 320 K/cmm [facility] RDW-CV 14.0 11.8 - 14.1 % [facility] Blood specimen (specimen) 01/19/2014 5:40 EDT 01/19/2014 5:55 EDT Sridevi Alvarez MD HEMATOLOGY & PF4 ORD ERABLES Performing Organization Address [facility] Co de Phone Number [facility] [address] [place] [address] * LIPID PROFILE (INCLUDES CHOLESTEROL, TRIGLYCERIDES, HDL, LDL) (01/19/2014 5:40 EDT) Cholesterol 162 mg/dl [facility] Comment: Desirable:<200 Borderline High:200-239 High:>uu=077 Triglycerides 89 mg/dl CHAVA [facility] Comment: Normal:<150 Borderline High:150-199 High:200-499 Very High:>zw=981 HDL 102 mg/dl [facility] Comment: Low:<40 Normal:40-60 Desirable: >60 LDL, Calculated 42 mg/dl HERON [facility] Comment: Optimal:<100 Near Optimal:100-129 Borderline High:130-159 High:160-189 Very High:>sb=398 Chol/HDL Ratio 1.6 ULISES [facility] Fasting? Unknown [facility] Non HDL Cholesterol 60 mg/dl [facility] Comment: Desirable:<130 Borderline:130-159 High: 160-189 Very High: >dk=044 Blood specimen (specimen) 01/19/2014 5:40 EDT 01/19/2014 5:55 EDT Sridevi Alvarez MD CHEMISTRY & BLOOD GA S ORDERABLES Performing Organization Address [facility] de Phone Number [facility] [address] [place] [address] * (ABNORMAL) PTT (01/18/2014 16:43 EDT) PTT 98(H) 26 - 37 secs [facility] Comment:Therapeutic Heparin range: 65-100 seconds Blood specimen (specimen) 01/18/2014 16:43 EDT 01/18/2014 16:53 EDT Golden Rutherford MD HEMATOLOGY & PF4 OR DERABLES Performing Organization Address [facility] de Phone Number [facility] [address] [place] [address] * (ABNORMAL) TROPONIN I (01/18/2014 13:58 EDT) Troponin I (ng/mL) 0.260(H) <0.034 ng/ml [facility] 01/18/2014 13:5 8 EDT 01/18/2014 14:35 EDT Sridevi Alvarez MD CHEMISTRY & BLOOD GA S ORDERABLES Performing Organization Address [facility] de Phone Number [facility] [address] [place] [address] * (ABNORMAL) CK MB WITH TOTAL CK (01/18/2014 13:58 EDT) CK 612(H) 0 - 250 U/L [facility] MB 5.12(H) <4.21 ng/ml [facility] Blood specimen (specimen) 01/18/2014 13:58 EDT 01/18/2014 14:35 EDT Sridevi Alvarez MD CHEMISTRY & BLOOD GA S ORDERABLES Performing Organization Address [facility] Co de Phone Number [facility] [address] [place] [address] * INPATIENT ADD-ON (01/18/2014 10:37 EDT) Tests to be added TROPONIN [facility] Number for problems [id number] [facility] Accession number [id number] [facility] 01/18/2014 10:3 7 EDT 01/18/2014 15:38 EDT Gerhard Willett MD HEMATOLOGY & PF4 ORD ERABLES Performing Organization Address [facility] de Phone Number [facility] [address] [place] [address] * (ABNORMAL) PTT (01/18/2014 8:33 EDT) PTT 42(H) 26 - 37 secs [facility] Comment:Therapeutic Heparin range: 65-100 seconds Blood specimen (specimen) 01/18/2014 8:33 EDT 01/18/2014 8:50 EDT Golden Rutherford MD HEMATOLOGY & PF4 OR DERABLES Performing Organization Address [facility] de Phone Number [facility] [address] [place] [address] * CT HEAD WO CONTRAST (01/18/2014 7:17 [...] 5. Preliminary report was provided by Dr. Krfat at approximately 7:48 AM on 01/18/14. Procedure [...] [facility] Sample Type ARTERIAL [facility]AMES [facility] phlebotomist medical lab assistant ID [id number] [facility] Comment: Test Performed by Respiratory For non-arterial reference ranges, please see ISTAT procedure. 01/18/2014 6:53 EDT 01/18/2014 6:59 EDT Golden Rutherford MD CHEMISTRY & BLOOD G ORDERABLES Performing Organization Address [facility] Co de Phone Number [facility]AMES[facility] [address] [place] [address] * (ABNORMAL) ETHANOL, BLOOD (01/18/2014 6:43 EDT) Ethanol 144(H) <10 mg/dl [facility] Blood specimen (specimen) 01/18/2014 6:43 EDT 01/18/2014 6:48 EDT Sridevi Alvarez MD CHEMISTRY & BLOOD GA S ORDERABLES Performing Organization Address [facility] Phone Number [facility] [address] [place] [address] * (ABNORMAL) PTT (01/18/2014 6:43 EDT) PTT 51(H) 26 - 37 secs [facility] Comment:Therapeutic Heparin range: 65-100 seconds Blood specimen (specimen) 01/18/2014 6:43 EDT 01/18/2014 6:48 EDT Sridevi Alvarez MD HEMATOLOGY & PF4 ORD ERABLES Performing Organization Address [facility] de Phone Number [facility] [address] [place] [address] * CREATININE (01/18/2014 6:43 EDT) Creatinine 0.89 0.66 - 1.25 mg/dl [facility] GFR, Calculated >60 >60 ml/min/1.7 3m2 [facility] Blood specimen (specimen) 01/18/2014 6:43 EDT 01/18/2014 6:48 EDT Sridevi Alvarez MD CHEMISTRY & BLOOD GA S ORDERABLES Performing Organization Address [facility] Co de Phone Number [facility] [address] [place] [address] * (ABNORMAL) BUN (01/18/2014 6:43 EDT) BUN 6(L) 10 - 26 mg/dl [facility] Blood specimen (specimen) 01/18/2014 6:43 EDT 01/18/2014 6:48 EDT Sridevi Alvarez MD CHEMISTRY & BLOOD GA S ORDERABLES Performing Organization Address [facility] de Phone Number [facility] [address] [place] [address] * (ABNORMAL) ELECTROLYTES (01/18/2014 6:43 EDT) Sodium 139 136 - 145 mEq/L [facility] Potassium 4.0 3.5 - 5.0 mEq/L [facility]AMES[facility] Chloride 104 96 - 110 mEq/L [facility]AMES[facility] CO2 23(L) 24 - 32 mEq/L [facility] Blood specimen (specimen) 01/18/2014 6:43 EDT 01/18/2014 6:48 EDT Sridevi Alvarez MD CHEMISTRY & BLOOD GA S ORDERABLES Performing Organization Address [facility] Phone Number [facility] [address] [place] [address] * PROTIME (01/18/2014 6:43 EDT) Pro Time [...] Organization Address [facility]/ZIP Co de Phone Number [facility] [address] [place] [address] * (ABNORMAL) HEMAGRAM (01/18/2014 6:43 EDT) Pathologist [facility] WBC 5.19 4.0 - 10.4 K/cmm JAMES [...] Organization Address [facility] Co de [facility] [address] [place] [address] * (ABNORMAL) TROPONIN I (01/18/2014 6:43 EDT) Pathologist [facility] Troponin I (ng/mL) 0.415(H) <0.034 ng/ml [facility] Blood specimen (specimen) 01/18/2014 6:43 EDT 01/18/2014 6:48 EDT Sridevi Alvarez MD CHEMISTRY & BLOOD GA S ORDERABLES Performing Organization Address [facility] Co de Phone Number [facility] [address] [place] [address] * CK MB WITH TOTAL CK (01/18/2014 6:43 EDT) Pathologist [facility] CK 127 0 - 250 U/L [facility] MB 2.42 <4.21 ng/ml [facility] Blood specimen (specimen) 01/18/2014 6:43 EDT 01/18/2014 6:48 EDT Sridevi Alvarez MD CHEMISTRY & BLOOD GA S ORDERABLES Performing Organization Address [facility] de Phone Number [facility] [address] [place] [address] * INPATIENT ADD-ON (01/18/2014 3:35 EDT) Tests to be added BLOOD ETHANOL LEVEL [facility] Number for problems Not Given [facility] Accession number [id number] [facility] 01/18/2014 3:35 EDT 01/18/2014 3:39 EDT Sridevi Alvarez MD HEMATOLOGY & PF4 ORD ERABLES Performing Organization Address [facility] de Phone Number [facility] [address] [place] [address] * INPATIENT ADD-ON (01/18/2014 2:58 EDT) Tests to be added PROTIME [facility] Number for problems Not Given [facility] Accession number [id number] [facility] 01/18/2014 2:58 EDT 01/18/2014 2:58 EDT Golden Rutherford MD HEMATOLOGY & PF4 OR DERABLES Performing Organization Address [facility] de Phone Number [facility] [address] [place] [address] * INPATIENT ADD-ON (01/18/2014 2:38 EDT) Tests to be added HEMAGRAM [facility] Number for problems Not Given [facility] Accession number [id number] [facility] 01/18/2014 2:38 EDT 01/18/2014 2:39 EDT Sridevi Alvarez MD HEMATOLOGY & PF4 ORD ERABLES Performing Organization Address [facility] Co de Phone Number [facility] [address] [place] [address] * (ABNORMAL) ETHANOL, BLOOD (01/18/2014 1:02 EDT) Ethanol 261(H) <10 mg/dl [facility] 01/18/2014 1:02 EDT 01/18/2014 1:12 EDT Sridevi Alvarez MD CHEMISTRY & BLOOD GA S ORDERABLES Performing Organization Address [facility] de Phone Number [facility] [address] [place] [address] * PROTIME (01/18/2014 1:02 EDT) Pathologist [facility] Pro Time 10.3 9.5 - 12.3 secs [...] Organization Address [facility] de Phone Number [facility] [address] [place] [address] * (ABNORMAL) HEMAGRAM (01/18/2014 1:02 EDT) WBC [...] Organization Address [facility] Co de Phone Number [facility] [address] [place] [address] * (ABNORMAL) PTT (01/18/2014 1:02 EDT) Pathologist [facility] PTT 141(HH) 26 - 37 secs [facility] Comment:Therapeutic Heparin range: 65-100 seconds Blood specimen (specimen) 01/18/2014 1:02 EDT 01/18/2014 1:12 EDT Golden Rutherford MD HEMATOLOGY & PF4 OR DERABLES Performing Organization Address [facility] de Phone Number [facility] [address] [place] [address] * MAGNESIUM (01/18/2014 1:02 EDT) Pathologist [facility] Magnesium 2.1 1.7 - 2.8 mg/dl [facility] Blood specimen (specimen) 01/18/2014 1:02 EDT 01/18/2014 1:12 EDT Sridevi Alvarez MD CHEMISTRY & BLOOD GA S ORDERABLES Performing Organization Address [facility] de Phone Number [facility] [address] [place] [address] * (ABNORMAL) TROPONIN I (01/18/2014 1:02 EDT) Pathologist [facility] Troponin I (ng/mL) 0.383(H) <0.034 ng/ml [facility] Blood specimen (specimen) 01/18/2014 1:02 EDT 01/18/2014 1:12 EDT Sridevi Alvarez MD CHEMISTRY & BLOOD GA S ORDERABLES Performing Organization Address City/[facility]/ZIP Co de Phone Number [facility] [address] [place] [address] * CK MB WITH TOTAL CK (01/18/2014 1:02 EDT) CK 113 0 - 250 U/L [facility] MB 2.62 <4.21 ng/ml [facility] Blood specimen (specimen) 01/18/2014 1:02 EDT 01/18/2014 1:12 EDT Sridevi Alvarez MD CHEMISTRY & BLOOD GA S ORDERABLES Performing Organization Address [facility] de Phone Number [facility] [address] [place] [address] * HEMOGLOBIN A1C (01/18/2014 1:02 EDT) Hemoglobin [...] BLOOD GA S ORDERABLES Performing Organization Address [facility] Co de Phone Number [facility] [address] [place] [address] * (ABNORMAL) SCREENING GLUCOSE (01/18/2014 1:02 EDT) Glucose, Screening 104(H) 70 - 100 mg/dl [facility] Blood specimen (specimen) 01/18/2014 1:02 EDT 01/18/2014 1:12 EDT Sridevi Alvarez MD CHEMISTRY & BLOOD GA S ORDERABLES Performing Organization Address [facility] Co de Phone Number [facility] [address] [place] [address] * ALKALINE PHOSPHATASE (01/18/2014 1:02 EDT) Total Alkaline Phosphatase 75 38 - 126 U/L [facility] Blood specimen (specimen) 01/18/2014 1:02 EDT 01/18/2014 1:12 EDT Sridevi Alvarez MD CHEMISTRY & BLOOD GA S ORDERABLES Performing Organization Address [facility] de Phone Number [facility] [address] [place] [address] * (ABNORMAL) ALT (01/18/2014 1:02 EDT) ALT 78(H) 21 - 72 U/L [facility] Blood specimen (specimen) 01/18/2014 1:02 EDT 01/18/2014 1:12 EDT Sridevi Alvarez MD CHEMISTRY & BLOOD GA S ORDERABLES Performing Organization Address [facility] de Phone Number [facility] [address] [place] [address] * (ABNORMAL) AST (01/18/2014 1:02 EDT) AST 68(H) 15 - 46 U/L [facility] Blood specimen (specimen) 01/18/2014 1:02 EDT 01/18/2014 1:12 EDT Sridevi Alvarez MD CHEMISTRY & BLOOD GA S ORDERABLES Performing Organization Address [facility] Co de Phone Number [facility] [address] [place] [address] * (ABNORMAL) CREATININE (01/18/2014 1:02 EDT) Creatinine 0.53(L) 0.66 - 1.25 mg/dl [facility] GFR, Calculated >60 >60 ml/min/1.7 3m2 [facility] Blood specimen (specimen) 01/18/2014 1:02 EDT 01/18/2014 1:12 EDT Sridevi Alvarez MD CHEMISTRY & BLOOD GA S ORDERABLES Performing Organization Address [facility] de Phone Number [facility] [address] [place] [address] * (ABNORMAL) BUN (01/18/2014 1:02 EDT) BUN 3(L) 10 - 26 mg/dl [facility] Blood specimen (specimen) 01/18/2014 1:02 EDT 01/18/2014 1:12 EDT Sridevi Alvarez MD CHEMISTRY & BLOOD GA S ORDERABLES Performing Organization Address [facility] Phone Number [facility] [address] [place] [address] * (ABNORMAL) ELECTROLYTES (01/18/2014 1:02 EDT) Sodium 143 136 - 145 mEq/L [facility] Potassium 3.8 3.5 - 5.0 mEq/L [facility] Chloride 107 96 - 110 mEq/L [facility] CO2 22(L) 24 - 32 mEq/L [facility] Blood specimen (specimen) 01/18/2014 1:02 EDT 01/18/2014 1:12 EDT Sridevi Alvarez MD CHEMISTRY & BLOOD GA S ORDERABLES Performing Organization Address [facility] de Phone Number [facility] [address] [place] [address] * EKG 12-LEAD (01/18/2014 0:50 EDT) 01/18/2014 0:50 EDT Narrative [facility] EKG - 01/19/2014 8:36 EDT ?[facility] ? Test Date: ?2014-01-18 Pat Name: ? JIMENEZ BARKLEY ? Department: ?? [facility] ? Room: ? MW528 Gender: ? M ?Banjo Repair Person: ?? [id number] : ?1955 ? Requested By: BETZY SRIDEVI Order Number: [id number] ? Reading MD: ?? CHICO POSEY MD ? Measurements Intervals ?[place] ? Rate: ? 76 ? P: ?-24 UT: ? 141 ?QRS: ?72 QRSD: ? 96 [...] Date: 2014-01-18 Pat Name: JIMENEZ BARKLEY Department: [place] [address] Room: [facility] Gender: M Banjo Repair Person: [id number] : 1955 Requested By: BETZY CASTILLO Order Number: [id number] Reading MD: CHICO POSEY MD Measurements Intervals [place] Rate: 76 P: -24 UT: 141 QRS: 72 QRSD: 96 T: 70 [...] infarction, episode of care unspecified Delirium tremens ([facility]) Alcohol withdrawal delirium ETOH abuse Alcohol abuse, unspecified Alcohol withdrawal ([facility]) Alcohol withdrawal ETOH abuse Alcohol abuse, unspecified [...] Until Discontinued, Routine 0843 (Given - Provider: Ferdi Lux RN) 0923 (Given - Provider: Kristel [...] Huang RN) 1205 (Given - Provider: Kristel Huagn RN) gabapentin (NEURONTIN) capsule 100 mg 100 [...] Until Discontinued, Routine 0843 (Given - Provider: Frdei Lux RN)2056 (Given - Provider: Eliz Junior) [...] Kristel Huang RN) 1204 (Given - Provider: Kristle Huang RN) documented in this encounter Orders [...] 01/20/2014 documented in this encounter Care Teams Charge Attendant Relationship Specialty Start Date End Date Sai Garg MD [address] [place] [address] [phone] PCP - General 01/03/14 11/11/14 documented as of this encounter
--- OUTSIDE RECORDS SUMMARY | 2024-04-17 08:44 | XMS_ITS | Encounter Summary ---
Author Organization [facility] Address [address] [place] [address] Care Team Providers Care Rn Research Name Role Phone Sai Garg MD Primary Care Provi glynn Reason for Visit * Reason Onset Date Comments Appointment Related 02/19/2014 NO SHOW Encounter Details Date Type Department Care Team (Late st Contact Info) Description 02/19/2014 Telephone [facility] Cardiology - [place] [address] [place] [address] Gala Campbell, CHARY [address] [facility] Level [address] [place] [phone] Appointment Related (NO SHOW) Social [...] on filedocumented in this encounter Care Teams Rn Research Relationship Specialty Start Date End Date Sai Garg MD [address] [place] [phone] PCP - General 01/03/14 11/11/14 documented as of this encounter
--- OUTSIDE RECORDS SUMMARY | 2024-04-17 08:45 | XMS_ITS | Encounter Summary ---
Author Organization [facility] Address [address] [place] [address] Care Team Providers Care Inspection Engineer Name Role Phone Sai Garg MD Primary Care Provi glynn Reason for Referral * Radiology Services (Routine/Next Available) - Closed Specialty Diagnoses / Procedures Referred By Contabida t Referred To Contact Diagnoses Neck pain Procedures CERVICAL SPINE 4 OR MORE VIEWS Lucy Pino MD [address] [place] [phone] Referral ID Status Reason Start Date Expiration Date Visits Re quested Visits Authorized [id number] Closed 07/11/2012 1 1 Reason for Visit * Reason Onset Date Comments Appointment Related 07/11/2012 Encounter Details Date Type Department Care Team (Late st Contact Info) Description 07/11/2012 Orders Only [facility] Spine Program - [address] [address] Lucy Pino MD [address] [place] [phone] Neck pain (Primary Dx) Social History [...] Cervicalgia documented in this encounter Care Teams Inspection Engineer Relationship Specialty Start Date End Date Sai Garg MD [address] [place] [phone] PCP - General 06/03/12 07/14/12 documented as of this encounter
--- OUTSIDE RECORDS SUMMARY | 2024-04-17 08:45 | XMS_ITS | Encounter Summary ---
Author Organization [facility] Address [address] [place] [address] Care Team Providers Care Program Engineer Name Role Phone Sherita Stanford MD Primary Care Provider Reason for Visit * Reason Onset Date Comments Appointment Related 06/02/2011 Encounter Details Date Type Department Care Team (Late st Contact Info) Description 06/02/2011 Orders Only [facility] Spine Program - [address] [place] [address] Lucy Pino MD [address] [place] [address] [place] [phone] Neck pain (Primary Dx) Social [...] Cervicalgia documented in this encounter Care Teams Program Engineer Relationship Specialty Start Date End Date Sherita Stanford MD [address] [place] [address] PCP - General 05/04/11 06/02/12 documented as of this encounter
--- OUTSIDE RECORDS SUMMARY | 2024-04-17 08:45 | XMS_ITS | Encounter Summary ---
Author Organization [facility] Address [address] [place] [address] Care Team Providers Care Clinical Specialist Vascular Name Role Phone Reagan Foster MD Primary Care Pro vider Reason for Visit * Reason Comments Neck Pain Encounter Details Date Type Department Care Team (Late st Contact Info) Description 07/16/2012 12:00 EDT Office Visit [facility] Spine Program - [address] [place] [address] Lucy Pino MD [address] [place] [address] [place] [phone] Cervical spondylosis; Chronic right shoulder [...] Notes * Bethany Pino MD - 07/21/2012 1910 EST P: Right shoulder pain, neck pain [...] treated with traction in the hospital in [place], [place]; no surgery or brace was required. [...] region documented in this encounter Care Teams Clinical Specialist Vascular Relationship Specialty [place] [address] [place] [phone] PCP - General 07/15/12 01/02/14 documented as of this encounter
--- OUTSIDE RECORDS SUMMARY | 2024-04-17 08:45 | XMS_ITS | Encounter Summary ---
Author Organization [facility] Address [address] [place] [address] Care Team Providers Care Technician'S Helper Name Role Phone Unknown, Provider Primary Care Provider [phone] Reason for Visit * Reason Comments Other Encounter Details Date Type Department Care Team (Late st Contact Info) Description 12/24/2009 [facility] Adult Primary Care [address] [id number] Dominic Araujo MD [employer] MA[employer] [address] [place] [address] Other Social History Tobacco Use Types Packs/Day [...] on filedocumented in this encounter Care Teams Technician'S Helper Relationship Specialty Start Date End Date Unknown, Provider, PCP - General 11/15/09 05/03/11 documented as of this encounter
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
--- OUTSIDE RECORDS SUMMARY | 2024-04-17 08:45 | XMS_ITS | Encounter Summary ---
Author Organization [facility] Address [address] [place] [address] Care Team Providers Care Hand Ii Thermal Cutter Name Role Phone Reagan Foster MD Primary Care Pro vider Encounter Details Date Type Department Care Team (Late st Contact Info) Description 01/02/[address] [facility] [phone] Unknown, Provider, Social History Tobacco Use Types [...] on filedocumented in this encounter Care Teams Hand Ii Thermal Cutter Relationship Specialty [place] [address] [place] [address] PCP - General 07/15/12 01/02/14 documented as of this encounter
--- OUTSIDE RECORDS SUMMARY | 2024-04-17 08:45 | XMS_ITS | Encounter Summary ---
Author Organization [facility] Address [address] [place] [address] Care Team Providers Care Bean Sorter Name Role Phone Reagan Foster MD Primary Care Pro vider Encounter Details Date Type Department Care Team (Latest Contact Info) Description 01/02/2014 10:33 EDT - 01/02/2014 11:47 EDT Hospital Encounter [facility] [address] [place] [address] Unknown, Provider, Discharge Disposition: Home or Self [...] on filedocumented in this encounter Care Teams Bean Sorter Relationship Specialty [place] [address] [place] [address] PCP - General 07/15/12 01/02/14 documented as of this encounter
--- OUTSIDE RECORDS SUMMARY | 2024-04-17 08:45 | XMS_ITS | Encounter Summary ---
Author Organization [facility] Address [address] [place] [address] Care Team Providers Care Rn Recovery Name Role Phone Reagan Foster MD Primary Care Pro vider Sai Garg MD Primary Care Provi glynn Reason for Referral * (Routine) - Closed Specialty Diagnoses / Procedures [facility] Referred To Contact Kristel Garcia NP [address] [place] [id number] Referral ID Status Reason Start Date Expiration Date V isits Requested Visits Authorized [id number] Closed Specialty Services Required 01/02/2014 1 1 [...] Closed Specialty Diagnoses / Procedures [facility] Referred To Contact Kristel Garcia NP [address] [place] [address] Referral ID Status Reason Start Date Expiration Date V isits Requested Visits Authorized [id number] Closed Specialty Services Required 01/02/2014 1 1 Question Answer Reason for recommendation: Discharge follow-up Comments Follow up with Dr Bryan Peraza, engine head repairer in [place]. Office phone number for questions or concerns: [phone]. * (Routine) - Closed Specialty Diagnoses / Procedures [facility] Referred To Contact Kristel Garcia NP [address] [place] [address] [place] [address] Referral ID Status Reason Start Date Expiration Date V isits Requested Visits Authorized [id number] Closed Specialty Services Required 01/02/2014 1 1 Question Answer Reason for recommendation: Discharge follow up Reason for Visit * Reason Comments Chest Pain NSTEMI transfer ,arr yomaira 7/10 cp Encounter Details Date Type Department Care Team (Late st Contact Info) Description 01/02/2014 11:47 EDT - 01/03/2014 14:06 EDT Hospital Encounter [facility] Cardiac/Telemetry Unit [address] [place] [address] Shane Cr MD Plante, Laurel Barkell, MD [address] [facility], Level [address] [place] [id number] Braydon Putnam MD NSTEMI (non-ST elevated myocardial infarction) ([facility]) (Primary Dx) Discharge Disposition: Home or Self [...] NSTEMI (non-ST elevated myocardial infarction) Principal Procedure: [facility] with BMS x 3 to LAD [...] and loaded with aspirin and transferred to [facility]. In addition he received magnesium 2 g IV fro a Mg of 1.2. On presentation to [facility] he had continued chest pain with concern [...] Follow-up appointments and procedures Follow up with engine head repairer. The engine head repairer's office will call you to set up an appointment. Follow up with Dr Bryan Peraza, engine head repairer in [place]. Office phone number for questions or concerns: [phone]. Reason for recommendation: Discharge follow-up Authorizing Provider: [...] He states he no longer lives in [place], that he lives in [facility]; [place] near [place] but on the map it is actually in [facility]. Unsure closest location of follow up, but I have scheduled this at [facility] as he came from there by ambulance. [...] and loaded with aspirin and transferred to [facility]. In addition he received magnesium 2 g IV On presentation to [facility] he had continued chest pain with concern [...] changes, and elevated cardiac biomarkers. Transferred to [facility] for further care. Received aspirin 325 [...] results Justus Lantigua MD 01/02/2014 12:13 Pager #[phone] Pt seen and examined prior to cardiac cath. Ongoing moderate CP. No rub. Moderate distress, somewhat agitated/anxious. Pulses good LEs. ECG with concerning anterior ST changes bordering on STEMI criteria. For emergent cardiac cath. See my procedure note. High risk for med non compliance or bleeding on initial eval. Bare metal stents appropriate. Chico Posey MD Cardiology Pager [phone] [facility] documented in this encounter Procedure Notes * Chico Posey MD - 01/02/2014 3518 EDT Cardiovascular Catheterization Laboratory Preliminary Report -- [...] artery Procedure: [facility] for the procedure: Diagnostic [...] Jesus RN - 01/02/2014 1300 EDT To SPLIT AND DRUM ROOM SUPERVISOR * Yolanda Gonzalez MD - 01/02/2014 1210 [...] by cards. 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 ? Evolving anterior TN. Labs pending at time of admission. Disposition: [...] enroute direct admit. 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 Acute hypotention when given nitroglycerine. 2 grams magnesium given for mag 1.2. Morphine and fentanyl for pain airline captain. 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 Data: Pt had been complaining of left chest pain during the night and had been given morphine. Action: VS and assessment completed. Pt asked about his pain. Response: Pt stated that it is much better, then he asked what was wrong with me? Explained that hehad an TN and stents had been placed in the [...] Care - Shakira Camarena RN - 01/02/2014 7263 EDT D: Assumed care of pt at [...] Resident - Mary Ang MD - 01/02/2014 7819 EDT DOS: 01/02/2014 Chief Complaint Patient presents [...] aspirin, started a heparin dripand transferred to [facility]. Patient was seen in the ED for [...] 9:35 EST) 09/29/2015 9:35 EST Scan 2 Pre Billing Clinician PROCEDURE/MINOR AMITA GICAL ORDERABLES * ECG REPORT - SCANNED (01/09/2014 14:28 EDT) 01/09/2014 14:2 8 EDT Scan 2 Pre Billing Clinician PROCEDURE/MINOR AMITA GICAL ORDERABLES * ECG REPORT - SCANNED (01/08/2014 13:09 EDT) 01/08/2014 13:0 9 EDT Scan 2 Pre Billing Clinician PROCEDURE/MINOR AMITA GICAL ORDERABLES * INVASIVE CARDIOLOGY REPORT-SCANNED (01/08/2014 13:09 EDT) 01/08/2014 13:0 9 EDT Scan 2 Pre Billing Clinician PROCEDURE/MINOR AMITA GICAL ORDERABLES * ECG REPORT - SCANNED (01/07/2014 15:11 EDT) 01/07/2014 15:1 1 EDT Scan 2 Pre Billing Clinician PROCEDURE/MINOR AMITA GICAL ORDERABLES * ECG REPORT - SCANNED (01/07/2014 15:11 EDT) 01/07/2014 15:1 1 EDT Scan 2 Pre Billing Clinician PROCEDURE/MINOR AMITA GICAL ORDERABLES * EKG 12-LEAD (01/03/2014 8:06 EDT) 01/03/2014 8:06 EDT Narrative [facility] EKG - 01/06/2014 12:11 EDT ?[facility] ? Test Date: ?2014-01-03 Pat Name: ? JIMENEZ BARKLEY ? Department: ?? Nery Mackay ? Room: ? ME520 Gender: ? M ?Fpga Engineer: ?? [id number] : ?1955 ? Requested By: KENYONCASSIDY LANEMARY CRAFT Order Number: [id number] ? Reading : ?? WAYLON MUÑOZ MD ? Measurements Intervals ?Dyer ? Rate: ? 60 ? P: ?-36 MI: ? 136 ?QRS: ?58 QRSD: ? 96 [...] Name: JIMENEZ BARKLEY Department: Nery Mackay Room: [facility] Gender: M Fpga Engineer: [id number] : 1955 Requested By: KENYON SULLIVAN MD Order Number: [id number] Reading MD: WAYLON MUÑOZ MD Measurements Intervals Dyer Rate: 60 P: -36 MI: 136 QRS: 58 QRSD: 96 T: 37 [...] CARDIAC ECG ORDERABL ES Performing Organization Address [facility] Co de Phone Number FA EKG * SMEAR REVIEW (01/03/2014 5:38 EDT) Smear scan only: Slide was examined by a technologist to verify the WBC and/or platelet count. [facility] 01/03/2014 5:38 EDT 01/03/2014 5:44 EDT Kenyon Sullivan MD HEMATOLOGY & PF4 ORD ERABLES Performing Organization Address [facility] Co de Phone Number [facility] [address] [place] [address] * CK MB WITH TOTAL CK (01/03/2014 5:38 EDT) CK 64 0 - 250 U/L [facility] MB 1.75 <4.21 ng/ml [facility] Blood specimen (specimen) 01/03/2014 5:38 EDT 01/03/2014 5:44 EDT Kenyon Sullivan MD CHEMISTRY & BLOOD GA S ORDERABLES Performing Organization Address [facility]/State/ZIP Co de Phone Number [facility] [address] [place] [address] * (ABNORMAL) ALT (01/03/2014 5:38 EDT) ALT 161(H) 21 - 72 U/L [facility] Blood specimen (specimen) 01/03/2014 5:38 EDT 01/03/2014 5:44 EDT Kenyon Sullivan MD CHEMISTRY & BLOOD GA S ORDERABLES Performing Organization Address [facility] Co de Phone Number [facility] [address] [place] [address] * (ABNORMAL) AST (01/03/2014 5:38 EDT) AST 118(H) 15 - 46 U/L [facility] Comment:Sample retested, res ult confirmed Blood specimen (specimen) 01/03/2014 5:38 EDT 01/03/2014 5:44 EDT Kenyon Sullivan MD CHEMISTRY & BLOOD GA S ORDERABLES Performing Organization Address [facility] de Phone Number [facility] [address] [place] [address] * LIPID PROFILE (INCLUDES CHOLESTEROL, TRIGLYCERIDES, HDL, LDL) (01/03/2014 5:38 EDT) Cholesterol 123 mg/dl [facility] Comment: Desirable:<200 Borderline High:200-239 High:>fc=198 Triglycerides 43 mg/dl [facility] Comment: Normal:<150 Borderline High:150-199 High:200-499 Very High:>kt=813 HDL 74 mg/dl [facility] Comment: Low:<40 Normal:40-60 Desirable: >60 LDL, Calculated 40 mg/dl [facility] Comment: Optimal:<100 Near Optimal:100-129 Borderline High:130-159 High:160-189 Very High:>as=161 Chol/HDL Ratio 1.7 [facility] Fasting? Unknown [facility] Non HDL Cholesterol 49 mg/dl [facility] Comment: Desirable:<130 Borderline:130-159 High: 160-189 Very High: >mo=572 Blood specimen (specimen) 01/03/2014 5:38 EDT 01/03/2014 5:44 EDT Kenyon Sullivan MD CHEMISTRY & BLOOD GA S ORDERABLES Performing Organization Address [facility] de Phone Number [facility] [address] [place] [address] * (ABNORMAL) CREATININE (01/03/2014 5:38 EDT) Creatinine 0.59(L) 0.66 - 1.25 mg/dl [facility] GFR, Calculated >60 >60 ml/min/1.7 3m2 [facility] Blood specimen (specimen) 01/03/2014 5:38 EDT 01/03/2014 5:44 EDT Kenyon Sullivan MD CHEMISTRY & BLOOD GA S ORDERABLES Performing Organization Address [facility] de Phone Number [facility] [address] [place] [address] * (ABNORMAL) BUN (01/03/2014 5:38 EDT) BUN 7(L) 10 - 26 mg/dl [facility] Blood specimen (specimen) 01/03/2014 5:38 EDT 01/03/2014 5:44 EDT Kenyon Sullivan MD CHEMISTRY & BLOOD GA S ORDERABLES Performing Organization Address [facility] de Phone Number [facility] [address] [place] [address] * ELECTROLYTES (01/03/2014 5:38 EDT) Sodium 136 136 - 145 mEq/L [facility] Potassium 4.4 3.5 - 5.0 mEq/L [facility] Chloride 101 96 - 110 mEq/L [facility] CO2 26 24 - 32 mEq/L [facility] Blood specimen (specimen) 01/03/2014 5:38 EDT 01/03/2014 5:44 EDT Kenyon Sullivan MD CHEMISTRY & BLOOD GA S ORDERABLES Performing Organization Address [facility]/ZIP Co de Phone Number [facility] [address] [place] [address] * (ABNORMAL) HEMAGRAM (01/03/2014 5:38 EDT) WBC [...] PF4 ORD ERABLES Performing Organization Address [facility] Co de Phone Number [facility] [address] [place] [address] * CK MB WITH TOTAL CK (01/02/2014 21:33 EDT) CK 80 0 - 250 U/L [facility] MB 1.58 <4.21 ng/ml [facility] Blood specimen (specimen) 01/02/2014 21:33 EDT 01/02/2014 21:44 EDT Justus Lantigua MD CHEMISTRY & BLOOD GAS ORDERABLES Performing Organization Address City/[facility]/ZIP Co de Phone Number [facility] [address] [place] [address] * (ABNORMAL) TROPONIN I (01/02/2014 21:33 EDT) Pathologist [facility] Troponin I (ng/mL) 0.208(H) <0.034 ng/ml [facility] Blood specimen (specimen) 01/02/2014 21:33 EDT 01/02/2014 21:44 EDT Justus Lantigua MD CHEMISTRY & BLOOD GAS ORDERABLES Performing Organization Address [facility] de Phone Number [facility] [address] [place] [address] * MAGNESIUM (01/02/2014 19:39 EDT) [facility] Magnesium 1.8 1.7 - 2.8 mg/dl [facility] Blood specimen (specimen) 01/02/2014 19:39 EDT 01/02/2014 20:18 EDT Justus Lantigua MD CHEMISTRY & BLOOD GAS ORDERABLES Performing Organization Address [facility] de Phone Number [facility] [address] [place] [address] * (ABNORMAL) ELECTROLYTES (01/02/2014 19:39 EDT) [facility] Sodium 134(L) 136 - 145 mEq/L [facility] Potassium 4.0 3.5 - 5.0 mEq/L [facility] Chloride 102 96 - 110 mEq/L [facility] CO2 26 24 - 32 mEq/L [facility] Blood specimen (specimen) 01/02/2014 19:39 EDT 01/02/2014 20:18 EDT Justus Lantigua MD CHEMISTRY & BLOOD GAS ORDERABLES Performing Organization Address [facility] de Phone Number [facility] [address] [place] [address] * CK MB WITH TOTAL CK (01/02/2014 19:39 EDT) [facility] CK 85 0 - 250 U/L [facility] MB 1.43 <4.21 ng/ml [facility] Blood specimen (specimen) 01/02/2014 19:39 EDT 01/02/2014 20:18 EDT Justus Lantigua MD CHEMISTRY & BLOOD GAS ORDERABLES [facility] [address] [place] [address] * EKG 12-LEAD (01/02/2014 19:10 EDT) 01/02/2014 19:1 0 EDT Narrative [facility] EKG - 01/06/2014 23:52 EDT ?[facility] ? Test Date: ?2014-01-02 Pat Name: ? JIMENEZ BARKLEY ? Department: ?? Gabriel 5 ? Room: ? ME520 Gender: ? M ?Fpga Engineer: ?? [id number] : ?1955 ? Requested By: JUSTUS LANTIGUA MD Order Number: [id number] ? Reading : ?? CHICO POSEY MD ? Measurements Intervals ?Dyer ? Rate: ? 68 ? P: ?50 MI: ? 159 ?QRS: ?57 QRSD: ? 92 [...] Name: JIMENEZ BARKLEY Department: Nery Mackay Room: [facility] Gender: M Fpga Engineer: [id number] : 1955 Requested By: JUSTUS LANTIGUA MD Order Number: [id number] Reading MD: CHICO POSEY MD Measurements Intervals Dyer Rate: 68 P: 50 MI: 159 QRS: 57 QRSD: 92 T: 37 [...] CARDIAC ECG ORDERA BLES Performing Organization Address City/[facility] Co de Phone Number [facility] E[facility] * INPATIENT ADD-ON (01/02/2014 15:45 EDT) Tests to be added PLEASE ADD PROTIME, ALK PHOS, ALT, AST, SCREENING GLUCOSE TO PREVIOUS TESTING, THANK YOU [facility] Number for problems [id number] [facility] Accession number [id number], DUPLICATION OF GLS REQUEST WHICH IS ALREADY ON THIS ACCESSION [facility] 01/02/2014 15:4 5 EDT 01/02/2014 16:08 EDT Shane Cr MD HEMATOLOGY & PF4 ORD ERABLES Performing Organization Address [facility] Co de Phone Number [facility] [address] [place] [address] * ECHOCARDIOGRAM (01/02/2014 15:38 EDT) Anatomical Region Laterality Modality Other 01/02/2014 15:3 8 EDT Narrative 01/02/2014 16:44 EDT *Interpreting Group:* *[facility]* [address] [place] [address] *STUDY CONCLUSIONS* Summary: ?? Left ventricle: The [...] Test stop time: ??03:40 PM. ADMITTING ?Braydon uPtnam MD ATTENDING ?Shane Cr MD REFERRING ?Reagan Foster PERFORMING ?? [facility], ORDERING ? Kenyon Sullivan REFERRING ?Kenyon Sullivan STONE ENGRAVER ??Lucy Esposito *PROCEDURE DATA* Procedure information: ??This study was interpreted by [facility]. ??Study status: ??Routine. Transthoracic echocardiography. ??M-mode, complete [...] 01/02/2014 *Interpreting Group:* *[facility]* [address] [place] [address] *STUDY CONCLUSIONS* Summary: Left ventricle: The cavity [...] Fa, ORDERING Kenyon Sullivan REFERRING Kenyon Sullivan STONE ENGRAVER Lucy Esposito *PROCEDURE DATA* Procedure information: This study was interpreted by [facility]. Study status: Routine.Transthoracic echocardiography. M-mode, complete 2D, [...] 1 EDT Narrative 01/02/2014 16:41 EDT [address] [place] [address] Catheterization Laboratory Study Patient: Jimenez Barkley ? Study Date: ?01/02/2014 ?Accession #: ? [id number] : ? 1955 Referring Physician: Reagan Foster [...] was identified. SUMMARY: 1. HPI and indications: Kil-PV-ldonvkfp myocardial infarction. 2. LAD: Mid-vessel lesion: There [...] however NSTEMI Dx requires DAPT x1y. HISTORY: Wnh-DU-dvblwuna myocardial infarction. ??PMH: ?? Chronic lung disease. [...] 2. Vessel setup was performed. A 180 [place] wire was used to cross the ?? [...] MD 2014-01-02 16:41 Procedure Note 01/02/[address] [place] [id number] Catheterization Laboratory Study Patient: Jimenez Barkley Study [...] was identified. SUMMARY: 1. HPI and indications: Gjb-BX-nkbibrmc myocardial infarction. 2. LAD: Mid-vessel lesion: There [...] alcohol, a cardiac rehabilitation program, and hemoglobin [id number]. The patient was counseled regarding the importance of adherence to theprescribed antiplatelet therapy and a low fat diet. 3. Add aspirin, 81mgPOdaily. 4. Add clopidogrel (Plavix), 75mgPOdaily, for 1yr. 5. BMS were deployed, however NSTEMI Dx requires DAPT x1y. HISTORY: Aua-IX-gmtdtpic myocardial infarction. PMH: Chronic lung disease.Functional status: [...] 2. Vessel setup was performed. A 180 Vedantu wire was used to crossthe lesion. 3. [...] a single inflation and a maximum pressure [id number]. STUDY COMPLETION: The estimated blood loss was [...] & PF4 ORD ERABLES Performing Organization Address City/[facility]/ZIP Co de Phone Number [facility] [address] [place] [address] * (ABNORMAL) AST (01/02/2014 12:14 EDT) AST 206(H) 15 - 46 U/L [facility] 01/02/2014 12:1 4 EDT 01/02/2014 12:34 EDT Mary Ang MD CHEMISTRY & BLOOD GA S ORDERABLES Performing Organization Address City/[facility]/ZIP Co de Phone Number [facility] [address] [place] [address] * (ABNORMAL) ALT (01/02/2014 12:14 EDT) ALT 203(H) 21 - 72 U/L [facility] 01/02/2014 12:1 4 EDT 01/02/2014 12:34 EDT Mary Ang MD CHEMISTRY & BLOOD GA S ORDERABLES Performing Organization Address [facility] Co de Phone Number [facility] [address] [place] [address] * ALKALINE PHOSPHATASE (01/02/2014 12:14 EDT) Total Alkaline Phosphatase 119 38 - 126 U/L [facility] 01/02/2014 12:1 4 EDT 01/02/2014 12:34 EDT Mary Ang MD CHEMISTRY & BLOOD GA S ORDERABLES Performing Organization Address [facility] de Phone Number [facility] [address] [place] [address] * MAGNESIUM (01/02/2014 12:14 EDT) Magnesium 1.9 1.7 - 2.8 mg/dl [facility] 01/02/2014 12:1 4 EDT 01/02/2014 12:34 EDT Mary Ang MD CHEMISTRY & BLOOD GA S ORDERABLES Performing Organization Address [facility] Phone Number [facility] [address] [place] [address] * SCREENING GLUCOSE (01/02/2014 12:14 EDT) Glucose, Screening 79 70 - 100 mg/dl [facility] 01/02/2014 12:1 4 EDT 01/02/2014 12:34 EDT Mary Ang MD CHEMISTRY & BLOOD GA S ORDERABLES Performing Organization Address [facility] Co de Phone Number [facility] [address] [place] [address] * (ABNORMAL) CREATININE (01/02/2014 12:14 EDT) Creatinine 0.64(L) 0.66 - 1.25 mg/dl [facility] GFR, Calculated >60 >60 ml/min/1.7 3m2 [facility] 01/02/2014 12:1 4 EDT 01/02/2014 12:34 EDT Mary Ang MD CHEMISTRY & BLOOD GA S ORDERABLES Performing Organization Address [facility] de Phone Number [facility] [address] [place] [address] * (ABNORMAL) BUN (01/02/2014 12:14 EDT) BUN 5(L) 10 - 26 mg/dl [facility] 01/02/2014 12:1 4 EDT 01/02/2014 12:34 EDT Mary Ang MD CHEMISTRY & BLOOD GA S ORDERABLES Performing Organization Address [facility] Phone Number [facility] [address] [place] [address] * (ABNORMAL) ELECTROLYTES (01/02/2014 12:14 EDT) Sodium 140 136 - 145 mEq/L [facility] Potassium 3.4(L) 3.5 - 5.0 mEq/L [facility] Chloride 102 96 - 110 mEq/L [facility] CO2 22(L) 24 - 32 mEq/L [facility] 01/02/2014 12:1 4 EDT 01/02/2014 12:34 EDT Mary Ang MD CHEMISTRY & BLOOD GA S ORDERABLES Performing Organization Address [facility] de Phone Number [facility] [address] [place] [address] * (ABNORMAL) TROPONIN I (01/02/2014 12:14 EDT) Troponin I (ng/mL) 0.040(H) <0.034 ng/ml [facility] 01/02/2014 12:1 4 EDT 01/02/2014 12:34 EDT Mary Ang MD CHEMISTRY & BLOOD GA S ORDERABLES Performing Organization Address [facility] Co de Phone Number [facility] [address] [place] [address] * CK MB WITH TOTAL CK (01/02/2014 12:14 EDT) CK 87 0 - 250 U/L [facility] MB 0.92 <4.21 ng/ml [facility] 01/02/2014 12:1 4 EDT 01/02/2014 12:34 EDT Mary Ang MD CHEMISTRY & BLOOD GA S ORDERABLES Performing Organization Address [facility] Co de Phone Number [facility] [address] [place] [address] * HOLD BLUE TOP (01/02/2014 12:14 EDT) Pathologist [facility] Hold Blue Top Sample for coagulation will be discarded after 4 hours [facility] 01/02/2014 12:1 4 EDT 01/02/2014 12:34 EDT Mary Ang MD LAB INFO SERVICE AND SUPPORT & PHONE RESULT Performing Organization Address [facility] Co de Phone Number [facility] [address] [place] [address] * (ABNORMAL) DIFFERENTIAL (01/02/2014 12:14 EDT) % [...] Basophils 0.07 0.01 - 0.11 K/cmm [facility] Type of Diff: Automated [facility] 01/02/2014 12:1 4 EDT 01/02/2014 12:34 EDT Mary Ang MD HEMATOLOGY & PF4 ORD ERABLES Performing Organization Address City/[facility] Co de Phone Number [facility] [address] [place] [address] * (ABNORMAL) HEMAGRAM (01/02/2014 12:14 EDT) WBC 7.03 4.0 - 10.4 K/cmm [facility] RBC 4.55 4.36 - 5.78 M/cmm [facility] Hemoglobin 14.7 13.8 - 17.3 gm/dl [facility] HCT 42.5 39.5 - 50.2 % [facility] MCV 93 81 - 95 fl [facility] MCH 32.3 27.6 - 33.0 pg [facility] MCHC 34.6 32.8 - 36.4 gm/dl [facility] PLT 107(L) 141 - 320 K/cmm [facility] RDW-CV 13.9 11.8 - 14.1 % [facility] 01/02/2014 12:1 4 EDT 01/02/2014 12:34 EDT Mary Ang MD HEMATOLOGY & PF4 ORD ERABLES Performing Organization Address City/[facility] Co de Phone Number [facility] [address] [place] [address] * EKG 12-LEAD (01/02/2014 11:54 EDT) 01/02/2014 11:5 4 EDT Narrative [facility]KG - 01/05/2014 16:05 EDT ?[facility] ? Test Date: ?2014-01-02 Pat Name: ? JIMENEZ BARKLEY ? Department: ?? ED ? Room: ? AC02 Gender: ? M ?Fpga Engineer: ?? [id number] : ?1955 ? Requested By: SHANE CR MD Order Number: [id number] ?Reading MD: ?? ARIE LIRIANO MD ? Measurements Intervals ?Dyer ? Rate: ? 69 ? P: ?77 MI: ? 168 ?QRS: ?64 QRSD: ? 97 [...] Signed On 01-05-14 16:05:43 EDT by ARIE LIIRANO MD. Procedure Note Arie Liriano MD - 01/05/2014 [facility] Cardiology Test Date: 2014-01-02 Pat Name: JIMENEZ BARKLEY Department: ED Room: [facility] Gender: M Fpga Engineer: [id number] : 1955 Requested By: SHANE CR MD Order Number: [id number] Reading MD: ARIE LIRIANO MD Measurements Intervals Dyer Rate: 69 P: 77 MI: 168 QRS: 64 QRSD: 97 T: 71 [...] 01-05-14 16:05:43 EDT by ARIE LIRIANO MD. Shane Cr MD CARDIAC ECG ORDERABL [...] 1230, STAT 1230 (Given - Provider: Buffy eJsus RN) clopidogrel (PLAVIX) tablet 75 mg 75 [...] 12/16 documented in this encounter Care Teams Rn Recovery Relationship Specialty [place] [address] [place] [address] PCP - General 07/15/12 01/02/14 Sai Garg MD [address] [place] [id number] PCP - General 01/03/14 11/11/14 documented as of this encounter
[2024-04-17] MEDS: Normal Saline 1,000 ML 125 ML IV (08:53)
[2024-04-17 08:57] LABS: Abs Immature Grans 0.07 10^3/uL (0.0-0.06); Absolute Basophil Count 0.16 10^3/uL (0.0-0.2); Absolute Eosinophil Count 0.17 10^3/uL (0.0-0.7); Absolute Lymphocyte Count 1.06 10^3/uL (1.2-3.4); Absolute Monocyte Count 0.52 10^3/uL (0.1-0.8); Absolute Neutrophil Count 12.18 10^3/uL (1.2-6.7); Basophils % 1.1 %; Eosinophils % 1.2 %; HCT 47.7 % (40.0-50.0); Immature Grans % 0.5 %; Lymphocytes % 7.5 %; MCH 31.4 pg (27.0-33.0); MCHC 33.5 % (32.0-36.0); MCV 94 fL (80-95); MPV 8.9 fL (8.0-11.0); Monocytes % 3.7 %; Platelet Count 334 10^3/uL (130-400); RDW 12.5 % (11.8-14.1); RDW-SD 43.4 fL; WBC 14.16 10^3/uL (4.4-10.8)
[2024-04-17] MEDS: Ondansetron 4 MG/2 ML VIAL IVP (09:00)
[2024-04-17] MEDS: MORPHine 10 MG/ML VIAL 6 MG IVP ×2 (09:01→12:20)
[2024-04-17 09:07] LABS: Lactate 4.3 mmol/L (0.6-1.4)
--- NOTE | 2024-04-17 09:40 | DI.CT_ITS ---
Exam(s) CT ABDOMEN PELVIS CTA EXAM: CT ABDOMEN PELVIS CTA CLINICAL HISTORY: mesteric ischemia vs cancer vs SBO. TECHNIQUE: Imaging Protocol: Axial CT angiography was performed with multi-slice acquisition and m ulti-planar and/or 3D reconstructions. CONTRAST MATERIAL: Intravenous: Omnipaque 350 Contrast volume:structured data in ml Oral: / no COMPARISON: CT CT ABDOMEN PELVIS W from 05/28/2023 FINDINGS: Vascular Structures: Severe atherosclerotic changes of the aorta and iliac arteries. No significant stenosis or occlusion . No significant stenosis or occlusion of branch vessels. Soft Tissues:Unremarkable. Lung bases:No acute findings. Liver: Normal size. Normal density. No measurable mass. Gallbladder and biliary tract: No evidence of calculi. No gallbladder wall thickening. No biliary di lation. Pancreas: Normal density, no abnormal calcifications or inflammatory process. Spleen: Normal. Kidneys: Normal size, contour and axis. No obstructive uropathy. No masses seen. No evidence of calcu li. Adrenal glands: No masses seen. Bladder: Enhancing irregular bladder mass along the floor and left side of the bladder. A 2.8 cm i n thickness on the left side. No evidence of calculi. No evidence of mass. Bowel: No obstruction or bowel wall thickening. No evidence of mesenteric ischemia. Normal quantit y of stool. Peritoneal cavity: No ascites. No focal collection. No mesenteric inflammatory response. Bones: No acute findings. Lymph nodes: Within normal limits. Reproductive: Enlarged prostate. IMPRESSION: mass at the floor and left side of the bladder causing moderate to severe left hydronephrosis. No evidence of bowel ischemia. Severe atherosclerotic changes but no evidence of significant branch vessel stenosis. Findings called to Magen Cid, ER provider. RADIATION DOSE DELIVERED: Total DLP DATA REPOSITORY: All CT scans at this facility are submitted to the National Radiology Data Registry (NRDR) Dose Index Registry (DIR) with the [employer] (ACR). RADIATION OPTIMIZATION: All CT scans at this facility use at least one of these dose optimization te chniques: automated exposure control; mA and/or kV adjustment per patient size (includes targeted exa ms where dose is matched to clinical indication); or iterative reconstruction.
[2024-04-17] MEDS: Omnipaque 350 MG/ML 100 ML BTL IJ ×2 (09:47→09:48)
[2024-04-17] MEDS: Normal Saline - Diluent 50 ML VIAL 100 ML IJ (09:49)
--- NOTE | 2024-04-17 09:50 | DI.CT_ITS ---
Exam(s) CT CHEST PE CTA EXAM: CT CHEST PE CTA CLINICAL HISTORY: hypoxia, tachycardia. TECHNIQUE: Imaging Protocol: Axial CT angiography was performed with multi-slice acquisition and mu lti-planar reconstructions as well as axial, coronal and sagittal MIP reconstructions. CONTRAST MATERIAL: Intravenous: Omnipaque 350 Contrast volume:58 ml COMPARISON: CT CT ABDOMEN PELVIS W from 05/28/[address] CHEST WO from 07/20/2023 FINDINGS: Pulmonary Arteries: No evidence of filling defect to suggest pulmonary emboli. Tracheobronchial tree: No mucous plugging. Mediastinum and Donna: No dominant adenopathy or fluid collection. Pulmonary parenchyma: No consolidation or dominant measurable mass. Moderate to severe emphysematou s changes. Pleura: No effusion or pneumothorax. Heart: The heart is not dilated. coronary artery calcifications are seen. Aorta: Thoracic aorta non-dilated. No dissection. Upper abdomen: Moderate to severe left hydronephrosis. Severe atherosclerotic changes of the abdomi nal aorta. Bones: Stable upper thoracic compression fractures. Tubes, Catheters, and Lines: None Soft tissues: Unremarkable. IMPRESSION: No evidence of pulmonary embolism or other acute abnormality.. RADIATION DOSE DELIVERED: Total DLP DATA REPOSITORY: All CT scans at this facility are submitted to the National Radiology Data Registry (NRDR) Dose Index Registry (DIR) with the [employer] (ACR). RADIATION OPTIMIZATION: All CT scans at this facility use at least one of these dose optimization te chniques: automated exposure control; mA and/or kV adjustment per patient size (includes targeted exa ms where dose is matched to clinical indication); or iterative reconstruction.
[2024-04-17 09:57] LABS: ALT 22 U/L (16-63); AST 20 U/L (15-37); Albumin 3.6 g/dL (3.4-5.0); Alkaline Phosphatase 109 U/L (46-116); Anion Gap 14.2 mmol/L (3-11); BUN 22 mg/dL (7-18); Bilirubin, Total 0.36 mg/dL (0.2-1.0); CO2 26.8 mmol/L (21.0-32.0); CREATININE 1.2 mg/dL (0.70-1.30); Calcium 9.6 mg/dL (8.5-10.1); Chloride 99 mmol/L (98-107); Estimated GFR 65.87 (mL/min/1.73m2); Glucose 77 mg/dL (74-106); Lipase 18 U/L (16-77); Potassium 4.2 mmol/L (3.5-5.1); Sodium 140 mmol/L (136-145)
[2024-04-17 10:02] LABS: Magnesium 1.4 mg/dL (1.8-2.4); Troponin I < 50 ng/L (< or =60)
[2024-04-17 10:34] LABS: Procalcitonin < 0.1 ng/mL
[2024-04-17] MEDS: MAGNESIUM SULFATE 2 GM/50 ML BAG IVINF (10:51)
[2024-04-17] MEDS: Dextrose 25%-Water 10 ML SYR IVP ×2 (11:01→12:11)
[2024-04-17 11:58] LABS: Bilirubin Negative (Negative); Blood Large (Negative); Clarity Sl Cloudy (Clear); Glucose Negative (Negative); Ketones 15 mg/dL (Negative); Leukocyte Esterase Negative (Negative); Nitrite Negative (Negative); Specific Gravity <= 1.005 (1.005-1.025); Urobilinogen 0.2 mg/dL (Up to 0.2); pH 5.5 (5-8)
[2024-04-17 12:02] LABS: Bacteria Rare HPF (Negative); Epithelial Cells Few HPF (Negative); WBC 0-2 HPF (0-5)
[2024-04-17 12:03] LABS: C & S Indicated? No; Casts Negative LPF (Negative); Crystals Negative HPF (Negative); Mucus Negative (Negative)
--- NOTE | 2024-04-17 15:14 | DI.RAD_ITS ---
Exam(s) XR ABDOMEN FLAT UPRIGHT EXAM: 2D digital imaging was performed. CLINICAL HISTORY: assess contrast location around kidneys. COMPARISON: CT CT ABDOMEN PELVIS CTA from 04/17/2024 TECHNIQUE: Supine and upright views of the abdomen were performed. FINDINGS: Residual IV contrast is present related to the CT performed earlier the same day. The right collecting system appears normal. There is moderate to severe left hydronephrosis with res idual contrast in the renal pelvis and proximal ureter. The previously noted mass seen in the urinar y bladder on CT is not visible on the current exam. BOWEL GAS PATTERN: Nondistended.No free air. CALCIFICATIONS: No urinary tract calcifications. OSSEOUS STRUCTURES: Normal for age. Visualized portions of chest: Lung bases are clear. IMPRESSION: 1. Nonobstructive bowel gas pattern. 2. Moderate to severe left hydronephrosis. 3. No free air. DATA REPOSITORY: RADIATION DOSE DELIVERED:
[2024-04-17] MEDS: Lisinopril 10 MG TAB PO (16:02)
[2024-04-17] MEDS: Ondansetron O.D.T. 4 MG TABEF, 3 TABS/BTL PO (16:03)
--- NOTE | 2024-04-17 17:19 | ED.PROG_ITS ---
Date of service: 04/17/24 Time of Service: 17:00 Medical Decision Making Handoff report received from Magen Cid PA, daytime ESTEFANIA; pt is currently pending only repeat BP after regular dose of antihypertensives. Please see his note for full HPI/ROS/diagnostics and plan of care. Jimenez is a 69 year old male who presented to the emergency dept today for evaluation of constipation and anorexia x 3 weeks with abdominal pain and vomiting. He was diagnosed with bladder malignancy on CT scan; KUB reassuring in evaluation of associated L hydronephrosis. Jimenez received Zofran, IV fluids, and oxycodone while in the ED for discomfort, which took the sharpness out of the pain. BP was significantly elevated throughout ED stay, responded well to home dose of lisinopril. Reviewed discharge instructions with patient, including red flags indicating need for return to emergency care, importance of medication compliance, and f/u with [facility]. He is agreeable with plan of care. Quality:SDOH Health Related Social Needs: No Data to Display Discharge Plan Disposition Patient Disposition: Home Condition: Stable Discharge Details Clinical Impression: Bladder malignancy Primary Care Provider: LING LEBLANC ED Provider: Magen Cid Home Meds and New Rx's Prescriptions: Continued Oxygen 2 l inhalation .exertion Qty: 1 0RF Rx Instructions: Use 2LPM with exertion quetiapine 50 mg tablet 100 mg PO QHS Rx Instructions: 1-2 tabs at bedtime escitalopram oxalate 20 mg tablet 20 mg PO DAILY Qty: 1 0RF meloxicam 15 mg tablet 15 mg PO DAILY clopidogrel [Plavix] 75 mg tablet 75 mg PO DAILY Qty: 90 3RF lamotrigine [Lamictal] 100 mg tablet 100 mg PO BID varenicline 1 mg tablet 1 mg PO BID Qty: 180 3RF lisinopril 10 mg tablet 10 mg PO DAILY Qty: 90 0RF omeprazole 20 mg capsule,delayed release(DR/EC) 20 mg PO DAILY Qty: 90 0RF vitamin B complex-folic acid 0.4 mg tablet 1 tab PO DAILY fluticasone propionate 50 mcg/actuation spray,suspension 1 spray intranasal BID Patient Comments: pt states not taking 05/28/23 Rx Instructions: administer into each nostril Breztri Aerosphere 160-9-4.8 mcg/actuation HFA aerosol inhaler See Rx Instructions .ROUTE .COMPLEX Qty: 32.1 12RF Dose Instruction: INHALE TWO PUFFS BY MOUTH TWICE A DAY Rx Instructions: INHALE TWO PUFFS BY MOUTH TWICE A DAY ipratropium-albuterol 0.5 mg-3 mg(2.5 mg base)/3 mL solution for nebulization See Rx Instructions .ROUTE .COMPLEX Qty: 30 11RF Dose Instruction: USE 1 VIAL IN NEBULIZER DAILY - for rescue Rx Instructions: USE 1 VIAL IN NEBULIZER DAILY - for rescue prednisone 5 mg tablet See Rx Instructions .ROUTE .COMPLEX Qty: 90 3RF Dose Instruction: TAKE ONE TABLET BY MOUTH EVERY DAY Rx Instructions: TAKE ONE TABLET BY MOUTH EVERY DAY albuterol sulfate 90 mcg/actuation HFA aerosol inhaler See Rx Instructions .ROUTE .COMPLEX Qty: 8.5 12RF Dose Instruction: INHALE TWO PUFFS BY MOUTH EVERY 6 HOURS NEEDED FOR SHORTNESS OF BREATH OR WHEEZING Rx Instructions: INHALE TWO PUFFS BY MOUTH EVERY 6 HOURS NEEDED FOR SHORTNESS OF BREATH OR WHEEZING docusate sodium [Colace] 100 mg capsule 100 mg PO BID Qty: 20 0RF atorvastatin 20 mg Tablet 20 mg PO DAILY Discharge Instructions Instructions: Bladder cancer, PET-CT Scan, Ondansetron, Oxycodone Additional Instructions: You were seen in the emergency department for your constipation with lack of p.o. intake, you had labs performed which showed no infectious etiology, your CT scan shows no bowel obstruction, I was concerned due to your overall health status of possible malignancy which we did find a tumor in your left bladder that is causing some fluid buildup from on your left kidney, you are able to void urine here today. I spoke with [facility] urology, they will contact you to see you to schedule a tissue biopsy, you likely need to get a PET scan after this to assess for any spread of this malignancy. I need you to camejo ve a yanique discussion with your primary care provider about goals of care as you have had DO NOT RESUSCITATE in the past and you may need palliative radiation and palliative care rather than surgical treatment based on her overall health status and severe COPD. Please continue to try to increase your p.o. intake with foods and fluids, take your hypertension medications, there is no evidence of severe organ damage from your poorly controlled hypertension at today's visit. I have sent you home with a to go pack of [email or web address] to help with nausea and hopefully keep some food down. Please return to the ER at once for severe increase in abdominal pain especially with lack of making urine, near fainting, chest pain, profound weakness, intractable nausea and vomiting. Referrals: [facility] [Provider Group] LING LEBLANC, [employer]IC[employer] [Primary Care Provider] -
== END 2024-04-17 17:41 | disposition home or self-care (01) ==
PROVIDERS: Physician Assistant; Emergency Provider Nurse Practitioner Family; PCP Nurse Practitioner Family
DX: C67.9 Malignant neoplasm of bladder, unspecified (principal); R11.2 Nausea with vomiting, unspecified; R10.9 Unspecified abdominal pain; I10 Essential (primary) hypertension; R63.8 Other symptoms and signs concerning food and fluid intake
CPT/HCPCS: 00123; 36410; 36415; 36416; 71275; 80053; 82962; 83690; 84145; 87040; 96361; 96365; 96366; 96375; 96376; 99285; 74019; 74174; 81003; 81015; 83605; 83735; 84484; 85025; 99283; J2270; J2405; J3475; J3490

== ENCOUNTER 2024-07-22 01:16 | Outpatient (CLI) | payer MEDICARE, MEDICAID, SELFPAY ==
--- NOTE | 2024-07-22 07:15 | DI.CTLCSR_ITS ---
Exam(s) CT CHEST LUNG CANCER SCREEN EXAM: CT CHEST LUNG CANCER SCREEN CLINICAL HISTORY: Screening for lung cancer,former smoker, z87.891 TECHNIQUE: Imaging Protocol: Axial computed tomography images with coronal and sagittal reformatted images were created and reviewed. Computer aided detection (CAD) was utilized. COMPARISON: CT CT CHEST WO from 07/20/[address] CHEST PE CTA from 04/17/2024 FINDINGS: Tracheobronchial tree: Patent where visualized. No bronchiectasis. Pulmonary parenchyma: No consolidation or dominant measurable mass. There are marked centrilobular em physematous changes present. The area of scarring in the posterior aspect of the right upper lobe is stable. Lung Nodules: The triangular nodule in the periphery of the right upper lobe appears stable. No new pulmonary nodules are present. Mediastinum and Donna: No dominant adenopathy or fluid collection. The esophagus is unremarkable. Thyroid gland: Unremarkable. Lymph nodes: Unremarkable. Pleura: No effusion or pneumothorax. Heart: The heart is not dilated. Coronary artery calcifications are present. No pericardial effusion . Aorta: Thoracic aorta non-dilated.Atherosclerotic calcification is present. Upper abdomen: Unremarkable. Soft Tissues: Unremarkable. Bones: There again seen compression fracture deformities of T4 and T5. There has been increased scle rosis of the T4 vertebral body. There is also increased lucency and destructive changes involving th e left aspect of the vertebral body which were not present on the prior examinations. IMPRESSION: 1. Stable pulmonary nodule. No new pulmonary nodules. 2. New destructive changes involving the left aspect of the T4 vertebral body. Infection should be c onsidered as should neoplasm. MRI is recommended for further evaluation. 3. Marked centrilobular emphysema. Lung RADS Cat 2 - Benign Appearance / Behavior: Nodules with a very low likelihood of becoming a clin ically active cancer due to size or lack of growth Lung-RADS 1.0 CATEGORIES: Category 0 - Prior chest CT exam(s) being located for comparison. Category 1 - Annual screening in 12 months. No nodules or definitely benign nodules. Category 2 - Annual screening in 12 months. Benign appearance. Nodules with low likelihood of becomin g active cancer. Category 3 - 6-month follow-up. Probably benign. Short-term follow-up suggested. Nodules with low lik elihood of becoming active cancer. Category 4A - 3-month follow-up and CT/PET if >8 mm in size. Suspicious finding. Findings which requi re additional testing. Category 4B - Findings which require additional testing and tissue sampling. Suspicious finding. Category 4X - Category 3 or 4 nodules with additional features or imaging findings that increases the suspicion of malignancy. Modifier S- Potentially clinically significant finding. (Non lung cancer) Unexpected findings RADIATION DOSE DELIVERED: 22.45mGy.cm Total DLP 22.45mGy.cmTotal DLP DATA REPOSITORY: All CT scans at this facility are submitted to the National Radiology Data Registry (NRDR) Dose Index Registry (DIR) with the [employer] (ACR). RADIATION OPTIMIZATION: All CT scans at this facility use at least one of these dose optimization te chniques: automated exposure control; mA and/or kV adjustment per patient size (includes targeted exa ms where dose is matched to clinical indication); or iterative reconstruction.
== END 2024-07-22 01:36 ==
LOC: DI 01:17
PROVIDERS: PCP Nurse Practitioner Family; Visit Provider Physician Assistant Surgical
DX: Z87.891 Personal history of nicotine dependence (principal); Z12.2 Encounter for screening for malignant neoplasm of respiratory organs; R91.8 Other nonspecific abnormal finding of lung field
CPT/HCPCS: 71271

== ENCOUNTER 2024-08-06 11:21 | Inpatient (IN) | payer MEDICARE, MEDICAID, SELFPAY ==
[2024-08-06] VITALS (44 sets, daily range): BP systolic 128–256; BP diastolic 67–111; PULSE 90–118; RESP 4–40; TEMP 36.5–37; O2SAT 89–99
--- NOTE | 2024-08-06 11:15 | RT.EKG_ITS ---
APPROVED REPORT Exam: Resting ECG Reason for Exam: COPD Patient Location: I HR:78 bpm ECG Measurements Heart Rate 78 AXIS VT 140 P 55 QRSd 89 QRS 14 QT 368 T 46 QTc 419 Conclusion Sinus rhythm...normal P axis, V-rate 60- [address] segment or T wave abnormalities to suggest occlusive VT
[2024-08-06] MEDS: Albuterol/Ipratropium 3 ML UPD VIAL UPD (11:32)
[2024-08-06 11:39] LABS: Absolute Basophil Count 0.05 10^3/uL (0.0-0.2); Absolute Eosinophil Count 0.09 10^3/uL (0.0-0.7); Absolute Lymphocyte Count 0.73 10^3/uL (1.2-3.4); Absolute Monocyte Count 0.84 10^3/uL (0.1-0.8); Basophils % 0.4 %; Eosinophils % 0.7 %; HCT 37.6 % (40.0-50.0); HGB 12.5 g/dL (13.5-17.5); Immature Grans % 0.8 %; Lymphocytes % 5.9 %; MCH 29.4 pg (27.0-33.0); MCHC 33.2 % (32.0-36.0); MCV 89 fL (80-95); MPV 8.8 fL (8.0-11.0); Monocytes % 6.8 %; Neutrophils % 85.4 %; Platelet Count 459 10^3/uL (130-400); RBC 4.25 10^6/uL (4.36-5.78); RDW 14.5 % (11.8-14.1); RDW-SD 46.8 fL; WBC 12.36 10^3/uL (4.4-10.8)
[2024-08-06 11:40] LABS: Absolute Neutrophil Count 10.56 10^3/uL (1.2-6.7); BE (Venous) 4 mmol/L (-2-3); HCO3 (Venous) 28 mmol/L (23-28); O2 Sat (Venous) 33 %; TCO2 (Venous) 26 mmol/L (24-29); pCO2 (Venous) 44 mmHg (41-51); pH (Venous) 7.42 (7.31-7.41); pO2 (Venous) 21 mmHg
--- NOTE | 2024-08-06 11:42 | ED.GENADUL_ITS ---
Discharge Plan Disposition Patient Disposition: Home Condition: Fair Discharge Details Chief Complaint: RespSymp Clinical Impression: Acute exacerbation of chronic obstructive pulmonary disease (COPD), History of coronary artery disease, Pulmonary cachexia due to chronic obstructive pulmonary disease, Pain Primary Care Provider: LING LEBLANC ED Provider: Flora Benoit Home Meds and New Rx's Prescriptions: No Action Oxygen 2 l inhalation .exertion Qty: 1 0RF Rx Instructions: Use 2LPM with exertion quetiapine 50 mg tablet 100 mg PO QHS Rx Instructions: 1-2 tabs at bedtime escitalopram oxalate 20 mg tablet 20 mg PO DAILY Qty: 1 0RF oxycodone 5 mg tablet 5 mg PO .COMPLEX MDD 30 mg PRN (Reason: pain) Qty: 84 0RF Rx Instructions: 5 mg orally 1-2 pills every 4 hours as needed. NO more than 6 pills in 24 hours. PRN; acetaminophen 500 mg capsule 1,000 mg PO Q6H PRN (Reason: fever) Qty: 100 2RF Rx Instructions: OK to take with oxycodone 5mg polyethylene glycol 3350 [Miralax] 17 gram/dose powder 17 g PO DAILY Qty: 510 4RF meloxicam 15 mg tablet 15 mg PO DAILY clopidogrel [Plavix] 75 mg tablet 75 mg PO DAILY Qty: 90 3RF lamotrigine [Lamictal] 100 mg tablet 100 mg PO BID lisinopril 10 mg tablet 10 mg PO DAILY Qty: 90 0RF omeprazole 20 mg capsule,delayed release(DR/EC) 20 mg PO DAILY Qty: 90 0RF vitamin B complex-folic acid 0.4 mg tablet 1 tab PO DAILY fluticasone propionate 50 mcg/actuation spray,suspension 1 spray intranasal BID Patient Comments: pt states not taking 05/28/23 Rx Instructions: administer into each nostril Breztri Aerosphere 160-9-4.8 mcg/actuation HFA aerosol inhaler See Rx Instructions .ROUTE .COMPLEX Qty: 32.1 12RF Dose Instruction: INHALE TWO PUFFS BY MOUTH TWICE A DAY Rx Instructions: INHALE TWO PUFFS BY MOUTH TWICE A DAY ipratropium-albuterol 0.5 mg-3 mg(2.5 mg base)/3 mL solution for nebulization See Rx Instructions .ROUTE .COMPLEX Qty: 30 11RF Dose Instruction: USE 1 VIAL IN NEBULIZER DAILY - for rescue Rx Instructions: USE 1 VIAL IN NEBULIZER DAILY - for rescue prednisone 5 mg tablet See Rx Instructions .ROUTE .COMPLEX Qty: 90 3RF Dose Instruction: TAKE ONE TABLET BY MOUTH EVERY DAY Rx Instructions: TAKE ONE TABLET BY MOUTH EVERY DAY albuterol sulfate 90 mcg/actuation HFA aerosol inhaler See Rx Instructions .ROUTE .COMPLEX Qty: 8.5 12RF Dose Instruction: INHALE TWO PUFFS BY MOUTH EVERY 6 HOURS NEEDED FOR SHORTNESS OF BREATH OR WHEEZING Rx Instructions: INHALE TWO PUFFS BY MOUTH EVERY 6 HOURS NEEDED FOR SHORTNESS OF BREATH OR WHEEZING trazodone 100 mg tablet 100 mg PO QHS docusate sodium [Colace] 100 mg capsule 100 mg PO BID Qty: 20 0RF atorvastatin 20 mg Tablet 20 mg PO DAILY HPI General Mode of arrival: ambulatory . Date/Time Provider Initiated Documentation: 08/06/24 11:26 . Limitations to Documentation: no limitations . Information obtained by: patient, family and old records reviewed . HPI Narrative: HPI: This is a 69-year-old male patient with a past medical history significant for significant COPD, history of CAD, on 2 to 4 L of oxygen at baseline, presenting with EMS for shortness of breath. The patient has had's some worsening of his shortness of breath over the last few days, states that he was having difficulty with his oxygen at home. They had him increase to 6 L/min by EMS and went he was saturating well but does continue to have significant difficulty with his breathing. The patient reports that he is also having his baseline chest and abdomen pain, worse with deep breaths. The patient was given 3 DuoNeb utilizer's prior to arrival at the emergency department, without significant improvement in his work of breathing. The patient takes chronic steroids at home, prednisone 5 mg, as well as oxycodone for chronic cancer pain. On arrival the patient is noted to have significant shortness of breath, and states that he is not sure if he is ever required BiPAP. He has not required intubation for his COPD, states that he would be amenable to trying anything that would make him feel better. Exam: Gen: Awake and alert, in significant respiratory distress. Patient is cachectic HEENT: Non-icteric sclera Neck: Supple Lungs: The patient is tachypneic with significant inspiratory retractions subcostally and intra constantly. He has end expiratory wheezing at the bases of the lungs CV: Appears well perfused, heart with tachycardic rate, strong distal pulses Abdomen: Non-distended, soft, nontender MSK: Moves 4 extremities without apparent limitation in ROM. No unilateral calf swelling or tenderness. No peripheral edema Skin: Visualized skin without rashes, cyanosis. Neuro: Normal Gait, no obvious focal deficits or facial asymmetry. Speaks in full, clear sentences. Psych: Appropriate for situation. MDM: This is a 69-year-old male patient presenting for evaluation of increasing work of breathing. Differential includes but is not limited to COPD exacerbation, pneumothorax, pneumonia, viral respiratory infection. The patient is also endorsing body pain, which could be due to his cancer, but I certainly considered ACS, pleurisy, pericarditis/myocarditis, aortic pathology. The patient is on palliative care but would be amenable to intervention for respiratory failure, including noninvasive positive pressure and intubation. He is a DNR. We will obtain laboratory workup to include CBC, CMP, troponin, VBG, and I will obtain a chest x-ray. We will place the patient on BiPAP while awaiting initial VBG due to his significant work of breathing, I will provide him with a duo nebulizer, 125 mg Solu-Medrol, and magnesium. ED Course: I reviewed the patient's laboratory studies, which revealed mild leukocytosis to 12 with neutrophilic predominance which may be due to his baseline steroid use, also considered infection. The patient has a mild anemia to 12.5 no thrombocytopenia. Blood gas demonstrates a normal pH of 7.4, without hypercarbia (CO2 44). Chemistry panel demonstrates a borderline low potassium at 3.4, no other significant electrolyte derangements. Magnesium mildly low at 1.5, no evidence of renal dysfunction or liver disease. Troponin was negative x 2 checks. X-ray was independently interpreted by myself and shows no evidence of pneumothorax, pneumonia, or other abnormality which might account for the patient's symptoms. Given the normal VBG we did provide the patient with CPAP for respiratory support as opposed to BiPAP. Additionally, I provided the patient with 2 doses of morphine given his chronic pain and opioid tolerance, with minimal improvement in the patient's work of breathing and body pain. I reached out to the hospitalist, who is graciously accepted this patient for admission to the ICU for ongoing workup of his significant increase in work of breathing. I am concerned that this patient would not be appropriate for the floor despite his adequate oxygenation, and his normal VBG, due to the marked work of breathing increase and my concern that he may fatigue and require invasive airway management. He remained hemodynamically improved while under my care and was transferred from this department without incident. Flora Benoit MD Related Data Home Medications ?Medication ?Instructions ?Recorded ?Confirmed lisinopril 10 mg tablet 10 mg PO DAILY #90 tabs 08/19/18 08/06/24 omeprazole 20 mg capsule,delayed 20 mg PO DAILY #90 caps 08/19/18 08/06/24 release meloxicam 15 mg tablet 15 mg PO DAILY 01/27/19 08/06/24 atorvastatin 20 mg tablet 20 mg PO DAILY 04/29/20 08/06/24 Oxygen 2 l inhalation .exertion #1 supp 01/22/23 08/06/24 fluticasone propionate 50 1 spray intranasal BID 04/04/23 08/06/24 mcg/actuation nasal spray,suspension vitamin B complex-folic acid 0.4 1 tab PO DAILY 04/04/23 08/06/24 mg tablet docusate sodium 100 mg capsule 100 mg PO BID #20 caps 05/28/23 08/06/24 (Colace) clopidogrel 75 mg tablet (Plavix) 75 mg PO DAILY #90 tabs 08/23/23 08/06/24 lamotrigine 100 mg tablet 100 mg PO BID 10/23/23 08/06/24 (Lamictal) budesonide 160 mcg-glycopyr 9 See Rx Instructions .Route 11/13/23 08/06/24 mcg-formot 4.8 mcg/actuation HFA .COMPLEX #32.1 grams inhaler (Breztri Aerosphere) escitalopram oxalate 20 mg tablet 20 mg PO DAILY #1 tab 12/04/23 08/06/24 quetiapine 50 mg tablet 100 mg PO QHS 12/04/23 08/06/24 ipratropium 0.5 mg-albuterol 3 mg See Rx Instructions .Route 12/28/23 08/06/24 (2.5 mg base)/3 mL nebulization .COMPLEX #30 ea soln prednisone 5 mg tablet See Rx Instructions .Route 02/04/24 08/06/24 .COMPLEX #90 tabs albuterol sulfate 90 mcg/actuation See Rx Instructions .Route 03/16/24 08/06/24 aerosol inhaler .COMPLEX #8.5 grams trazodone 100 mg tablet 100 mg PO QHS 08/04/24 08/06/24 acetaminophen 500 mg capsule 1,000 mg (2 x 500 mg) PO Q6H PRN 08/05/24 08/06/24 fever #100 caps oxycodone 5 mg tablet 5 mg PO .COMPLEX PRN pain #84 tabs 08/05/24 08/06/24 polyethylene glycol 3350 17 17 g PO DAILY Prevent opioid 08/05/24 08/06/24 gram/dose oral powder (Miralax) induced constipation #510 grams Previous Rx's ?Medication ?Instructions ?Recorded lisinopril 10 mg tablet 10 mg PO DAILY #90 tabs 08/19/18 omeprazole 20 mg capsule,delayed 20 mg PO DAILY #90 caps 08/19/18 release Oxygen 2 l inhalation .exertion #1 supp 01/22/23 docusate sodium 100 mg capsule 100 mg PO BID #20 caps 05/28/23 (Colace) clopidogrel 75 mg tablet (Plavix) 75 mg PO DAILY #90 tabs 08/23/23 budesonide 160 mcg-glycopyr 9 See Rx Instructions .Route 11/13/23 mcg-formot 4.8 mcg/actuation HFA .COMPLEX #32.1 grams inhaler (Breztri Aerosphere) escitalopram oxalate 20 mg tablet 20 mg PO DAILY #1 tab 12/04/23 ipratropium 0.5 mg-albuterol 3 mg See Rx Instructions .Route 12/28/23 (2.5 mg base)/3 mL nebulization .COMPLEX #30 ea soln prednisone 5 mg tablet See Rx Instructions .Route 02/04/24 .COMPLEX #90 tabs albuterol sulfate 90 mcg/actuation See Rx Instructions .Route 03/16/24 aerosol inhaler .COMPLEX #8.5 grams acetaminophen 500 mg capsule 1,000 mg (2 x 500 mg) PO Q6H PRN 08/05/24 fever #100 caps oxycodone 5 mg tablet 5 mg PO .COMPLEX PRN pain #84 tabs 08/05/24 polyethylene glycol 3350 17 17 g PO DAILY Prevent opioid 08/05/24 gram/dose oral powder (Miralax) induced constipation #510 grams Allergies Allergy/AdvReac Type Severity Reaction Status Date / Time carbamazepine Allergy Intermediate Hives Unverified 08/06/24 12:39 acetaminophen (From Tylenol) Allergy unknown Verified 08/06/24 12:39 simvastatin Allergy unknown Unverified 08/06/24 12:39 General Stated Complaint: RespSymp GEMA: 2 Course Vital Signs Vital signs: Vital Signs Temperature 36.5 C 08/06/24 11:23 Pulse 106 H 08/06/24 11:23 Respiratory Rate 40 H 08/06/24 11:23 Blood Pressure 180/107 H 08/06/24 11:23 Pulse Oximetry 98 08/06/24 11:23 Temperature 36.5 C 08/06/24 11:23 Temperature Source Temporal Artery Scan 08/06/24 11:23 Pulse 108 H 08/06/24 11:35 Respiratory Rate 25 H 08/06/24 11:35 Blood Pressure 180/107 H 08/06/24 11:23 Pulse Oximetry 97 08/06/24 11:35 Oxygen Delivery Method Bi-pap 08/06/24 11:32 Fraction of Inspired Oxygen (FIO2) 21 08/06/24 11:35 Pain Level 10 08/06/24 11:23 Lab/Test Results Lab/Test Results: Laboratory Tests Range/Units 08/06/24 11:32 WBC (4.4-10.8) 10^3/uL 12.36 H RBC (4.36-5.78) 10^6/uL 4.25 L Hgb (13.5-17.5) g/dL 12.5 L Hct (40.0-50.0) % 37.6 L MCV (80-95) fL 89 MCH (27.0-33.0) pg 29.4 MCHC (32.0-36.0) % 33.2 RDW (11.8-14.1) % 14.5 H Plt Count (130-400) 10^3/uL 459 H MPV (8.0-11.0) fL 8.8 Immature Gran % % 0.8 Neutrophils % % 85.4 Lymphocytes % % 5.9 Monocytes % % 6.8 Eosinophils % % 0.7 Basophils % % 0.4 Nucleated RBC % (0.0-0.3) % 0.0 Absolute Neutrophils (1.2-6.7) 10^3/uL 10.56 H Absolute Lymphocytes (1.2-3.4) 10^3/uL 0.73 L Absolute Monocytes (0.1-0.8) 10^3/uL 0.84 H Absolute Eosinophils (0.0-0.7) 10^3/uL 0.09 Absolute Basophils (0.0-0.2) 10^3/uL 0.05 VBG pH (7.31-7.41) 7.42 H VBG pCO2 (41-51) mmHg 44 VBG pO2 mmHg 21 VBG HCO3 (23-28) mmol/L 28 VBG Total CO2 (24-29) mmol/L 26 VBG O2 Saturation % 33 VBG Base Excess (-2-3) mmol/L 4 H Medical Decision Making Quality:SDOH Health Related Social Needs: No Data to Display PFSH All Active Problems (Updated 08/06/24 @ 13:53 by Flora Benoit MD) Acute on chronic respiratory failure with hypoxia (Acute) Acute exacerbation of chronic obstructive pulmonary disease (COPD) (Acute) Pain (Acute) Multifactorial: From bladder tumor? From nephrostomy tube? Started on opiates July 2024 while at [facility] [place]. [facility] palliative care team will manage Frailty syndrome in geriatric patient (Acute) Financial insecurity (Acute) DNR (do not resuscitate) (Acute) See 03/04/2024 COLST. DNR/time limited trial of intubation, +transfer, +treat/abx/IV Advanced care planning/counseling discussion (Acute) Palliative care encounter (Acute) Weight loss (Acute) Chronic fatigue (Acute) Pulmonary cachexia due to chronic obstructive pulmonary disease (Acute) Night sweats (Acute) Unintentional weight loss (Acute) MAKI (acute kidney injury) (Acute) Lumbar transverse process fracture (Acute) Fall (Acute) Pleural nodule (Acute) Nicotine dependence, cigarettes, uncomplicated (Acute) Ataxia (Acute) Dizziness (Acute) Gait abnormality (Acute) Rib fractures (Acute) Memory loss (Acute) Stroke (Chronic) Post concussion syndrome (Acute) Sacroiliac joint pain (Chronic) COPD (chronic obstructive pulmonary disease) (Acute) History of coronary artery disease (Acute) Medical History (Updated 08/06/24 @ 13:53 by Flora Benoit MD) Hx of dizziness H/O: stroke Spine injury Anxiety with depression Bipolar 1 disorder Insomnia H/O onychomycosis Smoker Eczema Allergic rhinitis Alcohol abuse In remission GERD (gastroesophageal reflux disease) Chronic pain HTN (hypertension) COPD (chronic obstructive pulmonary disease) Coronary artery disease HCAP (healthcare-associated pneumonia) Surgical History (Updated 08/04/24 @ 15:13 by Juli Thapa RN) H/O cystoscopy H/O transurethral resection of bladder tumor (TURBT) History of coronary artery stent placement History of tonsillectomy Rotator Cuff Repair (06/30/16) RIGHT Family History Other Heart disease Hypertension Social History Smoking/Tobacco Use Status: Current every day Tobacco Type: cigarettes Smoking packs per day: 0.5 Smoking cigarettes per day: 10.0 Smoking risk assessment performed?: Yes Alcohol Intake: current Alcohol Intake frequency: a few times a month Alcohol type: beer Drug use: Occasionally Substance use type: marijuana Details: states drinks a 6 pack of beer over a 1 month time frame Household members: none Housing: other Details: mobil home Number of Children: 1 current occupation: Disabled Pets and animals: No What type of physical activity do you participate in: walking Seatbelt use: sometimes Do you feel safe at home: Yes Do you feel safe in your relationship?: Yes
[2024-08-06] MEDS: methylPREDNISolone SUCC 125 MG VIAL IVP (11:44)
[2024-08-06] MEDS: MAGNESIUM SULFATE 2 GM/50 ML BAG IV_INF (11:44)
[2024-08-06] MEDS: MORPHine 4 MG/ML SYR IVP ×2 (11:46→16:18)
[2024-08-06 12:03] LABS: ALT 38 U/L (16-63); AST 35 U/L (15-37); Albumin 3.2 g/dL (3.4-5.0); Alkaline Phosphatase 115 U/L (46-116); Anion Gap 10.5 mmol/L (3-11); BUN 15 mg/dL (7-18); Bilirubin, Total 0.22 mg/dL (0.2-1.0); CO2 28.5 mmol/L (21.0-32.0); Calcium 9.7 mg/dL (8.5-10.1); Chloride 98 mmol/L (98-107); Estimated GFR 81.98 (mL/min/1.73m2); Glucose 137 mg/dL (74-106); Magnesium 1.5 mg/dL (1.8-2.4); Potassium 3.4 mmol/L (3.5-5.1); Sodium 137 mmol/L (136-145); Total Protein 8.6 g/dL (6.4-8.2); Troponin I 15 ng/L (<or=76)
--- OUTSIDE RECORDS SUMMARY | 2024-08-06 12:08 | XMS_ITS | Clinical Summary ---
Author Organization [facility] Address [facility] [place] [address] Care Team Providers Care Tongue Lining Stitcher Name Role Phone Cintia Jones Uzma WESTBROOK Primary Care Provider Allergies Active Allergy Reactions Criticality Noted Date Comments Simvastatin 02/24/2016 Carbamazepine 02/24/2016 Medications Medication Sig Dispensed Refills Start Date End Date Status citalopram (CELEXA) 20 mg Tablet Take 20 mg by mouth daily. Active tiotropium (SPIRIVA WITH HANDIHALER) 18 mcg Capsule, w/Inhalation Device Inhale 18 mcg into the lungs daily. Active multivitamin Kmeu-Bq-GG-Min (THERAPEUTIC-M) 27-0.4 mg Tablet Take 1 tablet by mouth daily. Active albuterol (PROAIR HFA) 90 mcg/actuation HFA Aerosol Inhaler Inhale 2 puffs into the lungs every 4 hours as needed for Wheezing. Use with spacer Active ipratropium-albuter ol (DUONEB) 0.5 mg-3 mg(2.5 mg base)/3 mL [...] Take 100 mg by mouth nightly. Active budesonide/formoter ol fumarate (SYMBICORT INHL) Inhale into the lungs. [...] daily. Active fluticasone propionate (FLONASE) 50 mcg/actuation Eclectic, Suspension 1 spray daily. Act brian Joon Aerosphere 160-9-4.8 mcg/actuation inhaler (HFA) Inhale 2 puffs into the lungs 2 times daily. 05/12/2024 Active docusate sodium (Colace) 100 mg capsule Take 1 capsule by mouth 2 times daily. 03/18/2024 Active escitalopram (Lexapro) 20 mg tablet Take 1 tablet by mouth Daily at Noon. 05/12/2024 Active multivitamin with minerals (One-A-Day) Tablet Take 1 tablet by mouth Daily @ 0600. 01/23/2014 Active oxyCODONE-acetamino phen (Percocet) 5-325 mg tablet Take 1 tablet by mouth every 8 hours as needed. 05/04/2024 Active polyethylene glycoL (Miralax) 17 gram/dose Powder Take 17 g by mouth daily. 04/17/2024 Active Senexon-S 8.6-50 mg Tablet Take 2 tablets by mouth daily. 04/16/2024 Active Vitamins B Complex Tablet Take 1 tablet by mouth Daily at Noon. 03/18/2024 Active oxyCODONE (Roxicodone) 5 mg tablet Take 1 tablet by mouth every 4 hours as needed for Pain (moderate to severe pain 7-10) for up to 5 days. 20 tablet 08/01/2024 08/06/2024 Active oxyCODONE CR (OxyCONTIN) 10 mg ER 12 hr tablet (CRUSH RESISTANT) Take 1 tablet by mouth 2 times daily for 5 days. 10 tablet 08/01/2024 08/06/2024 Active Active Problems Problem Noted Date Diagnosed Date Severe protein-calorie malnutrition 07/31/2024 Overview (07/31/2024): Identified: greater than 7.5% weight loss in 3 months (38%), Severe Fat Loss, and Severe Lean Muscle Loss is consistent with Severe protein-calorie malnutrition in the setting of acute illness or injury, chronic illness (Chelsi live al, JPEN J Parenteral Enteral Nutr. 2011; 36(3): 273-83) Bladder tumor 07/29/2024 Facial fracture due to fall 05/07/2020 Splenic laceration 06/14/2018 Pain in right shoulder 02/24/2016 Encounters Date Type Department Care Team Description 08/05/2024 Telephone Radiation Oncology at [address] [phone] Aye Sumner 08/01/2024 [place] [address] Fanta Price RN 07/29/2024 1:48 PM EST Anesthesia Event Main Operating Room [place] [id number] Robb Velasquez MD Bryan, Yvon F, MD 07/29/2024 12:15 PM EST - 07/29/2024 2:33 PM EST Surgery Main Operating Room [place] [id number] Joseph Frye MD CYSTO, RESECTION BLADDER TUMOR, GREATER THAN 5.0CM (WRVU 7.5) 07/29/2024 11:08 AM EST - 08/02/2024 1:56 PM EST Hospital Encounter Surgical Unit Level 4 Wing C at [place] [id number] Joseph Frye MD Unstable angina; Chest pain, unspecified type; Bladder tumor; Unsteady gait Discharge Disposition: Home with VNA 07/29/2024 11:00 AM EST Laboratory [place] [address] 07/29/2024 Travel 06/02/2024 3:20 PM EDT Procedure visit Urology at [place] [id number] Louie Salazar MD Bladder mass; Acute cystitis with hematuria 06/02/2024 2:20 PM EDT Office Visit [facility] [place] [address] Louie Salazar MD Bladder mass 05/09/2024 Transcribe Orders [facility] Incoming Referrals [phone] Cintia Jones APRN Dysuria; Hematuria, unspecified type; Hydronephrosis, unspecified hydronephrosis type from Last 3 Months Family History Relation Status Comments Father Maternal Grandfather Maternal Grandmother Mother Alive Paternal Grandfather Paternal Grandmother Social History Tobacco Use Types Packs/Day Years Used Date Smoking Tobacco: Former Cigarettes Smokeless Tobacco: Never Tobacco Cessation:Counseling Given: Not Answered Comments:Quit 4 months ago per pt. Alcohol Use Standard Drinks/Week Comments Not Currently 0 (1 standard drink = 0.6 oz pure alcohol) was a heavy drinker, now drinks <3beers per month [facility] Utilities Answer Date Recorded In the past 12 months has th e [employer] Reviewed, gas, oil, or water [facility] threatened to shut off services in your home? Yes 07/30/2024 Hunger Vital Sign Answer Date Recorded Within the past 12 months, y ou worried that your food would run out before you got the money to buy more. Never true 07/30/20 24 Within the past 12 months, t he food you bought just didn't last and you didn't have money to get more. Never true 07/30/2024 PRAPARE - Transportation Answer Date Re corded In the past 12 months, has l ack of transportation kept you from medical appointments or from getting medications? No 07/18 In the past 12 months, has l ack of transportation kept you from meetings, work, or from getting things needed for daily living? No 07/30/2024 Housing Stability Vital Sign Answer Claudio e Recorded In the last 12 months, was t here a time when you were not able to pay the mortgage or rent on time? No 07/30/2024 In the past 12 months, how m any times have you moved where you were living? 0 07/30/2024 At any time in the past 12 m [facility], were you homeless or living in a fpc (including now)? No 07/30/2024 [facility] Inpatient Questions Answer Date Recorded Does Anyone Try to Keep You From Having Contact with Others or Doing Things Outside Your Home? no 07/29/2024 Feels Threatened by Someone no 07/18 Feels Unsafe at Home or Work/School no 07/29/2024 Physical Signs of Abuse Present no 07/29/2024 Sex and Gender Information Value Date Recorded Sex Assigned at Not on file Gender Identity Not on file Sexual Orientation Not on file Last Filed Vital Signs Vital Sign Reading Time Taken Comments Blood Pressure 169/75 08/02/2024 10:41 AM EST Pulse 88 07/30/2024 1:00 PM EST Temperature 36.7 ??C (98 ??F) 08/02/2024 10:41 AM EST Respiratory Rate 16 08/02/2024 10:41 AM EST Oxygen Saturation 94% 08/02/2024 10:41 AM EST Inhaled Oxygen Concentration - - Weight 45.9 kg (101 lb 1.6 oz) 07/29/2024 12:04 PM EST Height 182.9 cm (6') 07/29/2024 12:04 PM EST Body Mass Index 13.71 07/29/2024 12:04 PM EST Plan of Treatment Upcoming Encounters Date Type Department Care Team (Late st Contact Info) Description 08/07/2024 1:30 PM EST Clinical [place] [address] 08/07/2024 3:30 PM EST Scheduled [place] [address] Health Maintenance Due Date Last Done Comments CT Colonography 1956 Colonoscopy 1956 Colorectal Cancer Screening 1956 FIT DNA 1956 FIT 1956 Sigmoidoscopy (10 year) with FIT yearly 1956 Sigmoidoscopy 1956 Pneumoccocal Vaccine: 65+ (1 of 2 - PCV) 1962 Hepatitis C Screening 1974 Tetanus/Diphtheria/Pertussis Vaccines (1 - Tdap) 04/09 Zoster vaccine (1 of 2) 2006 AAA Screen 2021 Covid-19 Vaccine (1 - season) 2024 Influenza (Flu) vaccine (1 o f 1 - Influenza standard series) 05/18/2024 Procedures Procedure Name Priority Date/Time Associated Diagnosis Comments BASIC METABOLIC PANEL Routine 08/02/2024 4:52 AM EST CBC (WITH DIFF) Routine 08/02/2024 4:52 AM EST BASIC METABOLIC PANEL Routine 08/01/2024 5:36 AM EST CBC (WITH DIFF) Routine 08/01/2024 5:36 AM EST BASIC METABOLIC PANEL Routine 07/31/2024 5:06 AM EST CBC (WITH DIFF) Routine 07/31/2024 5:06 AM EST IR NEPHROSTOMY TUBE PLACEMENT PERCUTANEOUS LEFT Routine 07/30/2024 1:10 PM EST URINE CULTURE Routine 07/30/2024 12:45 PM EST BASIC METABOLIC PANEL Routine 07/30/2024 5:03 AM EST CBC (WITH DIFF) Routine 07/30/2024 5:[address] CHEST ABDOMEN PELVIS W CONTRAST (GENERIC) Routine 07/30/2024 2:50 AM EST Rectum Surgery Procedure Unlisted ([id number]) 07/29/2024 1:50 PM EST bladder tumor Cystourethroscopy, Fulgur >5Cm Lesn ([id number]) 07/29/2024 1:50 PM EST bladder tumor ANE NEURAXIAL APS USE Routine 07/29/2024 1:50 PM EST EKG 12-LEAD Routine 07/29/2024 1:16 PM EST Chest pain, unspecified type COMPREHENSIVE METABOLIC PANEL Routine 07/29/2024 11:20 AM EST CBC (WITH DIFF) Routine 07/29/2024 11:20 AM EST CYSTOURETHROSCOPY Routine 06/02/2024 3:2 0 PM EDT Bladder mass URINE CULTURE Routine 06/02/2024 3:07 PM EDT Bladder mass Acute cystitis with hematuria from Last 3 Months Results * (ABNORMAL) CBC (with Diff) (08/02/2024 4:52 AM EST) Only the most recent of5 resultswithin the time period is included. White Blood Cell 10.77(H) 4.00 - 9.50 x10(3)/mc L 08/02/2024 5:11 AM [facility] Red Blood Cell 3.69(L) 4.58 - 5.54 x10(6)/mc L 08/02/2024 5:11 AM [facility] Hemoglobin 10.8(L) 13.7 - 16.5 g/dL 08/02/2024 5:11 AM [facility] Hematocrit 33.7(L) 40.5 - 48.5 % 08/02/2024 5:11 AM [facility] Mean Cell Volume 91.3 82.9 - 93.1 fL 08/02/2024 5:11 AM [facility] Mean Cell Hemoglobin 29.3 27.5 - 32.1 pg 08/02/2024 5:11 AM [facility] Mean Cell Hemoglobin Concentration 32.0 32.0 - 35.7 g/dL 08/02/2024 5:11 AM [facility] Platelet 297 145 - 357 x10(3)/mc L 08/02/2024 5:11 AM [facility] Mean Platelet Volume 9.4 7.6 - 12.9 fL 08/02/2024 5:11 AM [facility] RDW Standard Deviation 53.3(H) 36.0 - 45.0 fL 08/02/2024 5:11 AM [facility] RDW coefficient of variation 15.9(H) 11.4 - 13.8 % 08/02/2024 5:11 AM [facility] NRBC% auto 0.0 % 08/02/2024 5:11 AM [facility] NRBC Absolute <0.01 <0.01 x10(3)/mc L 08/02/2024 5:11 AM [facility] Neutrophil % 75.2 % 08/02/2024 5:11 AM [facility] Neutrophil Absolute (ANC) - Automated 8.09(H) 1.70 - 6.10 x10(3)/mc L 08/02/2024 5:11 AM [facility] Lymph % 9.0 % 08/02/2024 5:11 AM [facility] Lymph Absolute 0.97 0.90 - 3.20 x10(3)/mc L 08/02/2024 5:11 AM [facility] Monocyte % 9.0 % 08/02/2024 5:11 AM [facility] Monocyte Absolute 0.97(H) 0.30 - 0.90 x10(3)/mc L 08/02/2024 5:11 AM [facility] Eos % 5.5 % 08/02/2024 5:11 AM [facility] Eos Absolute 0.59(H) 0.00 - 0.40 x10(3)/mc L 08/02/2024 5:11 AM [facility] Basophil % 0.6 % 08/02/2024 5:11 AM [facility] Baso Absolute 0.07 0.00 - 0.10 x10(3)/mc L 08/02/2024 5:11 AM [facility] Immature Gran % 0.7 % 5:11 AM [facility] Immature Gran Absolute 0.08(H) 0.00 - 0.04 x10(3)/mc L 08/02/2024 5:11 AM [facility] Blood VENOUS BLOOD SPECIMEN / Unknown Venipuncture / Unknown 08/02/2024 4:52 AM EST 08/02/2024 5:03 AM EST Joseph Frye MD HEMATOLOGY ORDERAB LES [facility] [place] [address] * (ABNORMAL) Basic Metabolic Panel (08/02/2024 4:52 AM EST) Only the most recent of4 resultswithin the time period is included. Glucose 146 65 - 199 mg/dL 08/02/2024 5:35 AM EST [facility] Comment:Glucose Concentratio n >=200 mg/dL plus symptoms is consistent with Diabetes Mellitus. Blood Urea Nitrogen 18 10 - 20 mg/dL 08/02/2024 5:35 AM EST [facility] Creatinine 0.92 0.80 - 1.50 mg/dL 08/02/2024 5:35 AM EST [facility] Sodium 133(L) 135 - 145 mMol/L 08/02/2024 5:35 AM [facility] Potassium 4.1 3.5 - 5.0 mMol/L 08/02/2024 5:35 AM [facility] Chloride 96(L) 98 - 107 mMol/L 08/02/2024 5:35 AM EST [facility] Carbon Dioxide 28 22 - 31 mMol/L 08/02/2024 5:35 AM EST [facility] Anion Gap 9 5 - 15 mMol/L 08/02/2024 5:35 AM [facility] Calcium 9.9 8.5 - 10.5 mg/dL 08/02/2024 5:35 AM [facility] Est Glomerular Filtration Rate - Male 91 mL/min/1. 73 m?? 08/02/2024 5:35 AM [facility] Comment: This patient's estimated GFR was calculated using the 2020 CKD-EPI equation. The estimated GFR can vary from the measured GFR by up to 30% in the absence of rapidly changing kidney function. Assessment of the estimated GFR is not appropriate when creatinine concentrations are rapidly changing. For clinical situations in which a more precise estimate of GFR is necessary, consider alternative methods of GFR estimation such as a 24-hour urine creatinine clearance. Assignment of CKD stage 1 - 5 for patients with an eGFR near the transition point between stages may be based on clinical assessment of muscle mass and symptoms in addition to eGFR. Link: eGFR Calculator [employer] Blood VENOUS BLOOD SPECIMEN / Unknown Venipuncture / Unknown 08/02/2024 4:52 AM EST 08/02/2024 5:03 AM EST Joseph Frye [place] [address] * IR Nephrostomy Tube Placement Percutaneous Left (07/30/2024 1:10 PM EST) Anatomical Region Laterality Modality X-Ray Angiograph y Narrative 07/30/2024 1:59 PM EST INTERVENTIONAL RADIOLOGY PROCEDURE NOTE Procedure: Left percutaneous nephrostomy catheter placement with ultrasound and fluoroscopic guidance Indication for Procedure: Malignant ureteral obstruction, probable muscle invasive bladder tumor, left hydronephrosis and flank pain. ??Left ureteral orifice not visualized. Informed Consent: After discussing risks (including infection, trauma / damage to surrounding structures, hemorrhage, non-success, amongst others), and benefits of the procedure, the patient consented to the procedure. Monitoring and Sedation Details: Due to the painful nature of the procedure, patient received split doses of intravenous fentanyl from the IR nurse while pulse, pressure, end tidal CO2 parameters and oxygen saturation were continuously monitored. Procedure Events and Technique: A standard time-out was conducted just before the start of the procedure to verify all nair aspects; including the correct patient and planned procedure, procedure location, informed consent, and all relevant critical information, all of which were correct. The patient was positioned [id number] on the procedure table. ??The Left flank was cleaned and prepped in typical sterile fashion; maximum sterile barrier technique was used throughout. ?? Under ultrasound guidance, a 21 ga needle was advanced into the left lower pole calyx. Contrast injection and spot image confirmed. ??An .018 inch wire was advanced into the renal pelvis. ??A 6 Fr coaxial sheath was placed into the lower pole calyx. The inner dilator/stiffener was removed, ??and the 0.018 wire exchanged for a 0.035 wire through the 6 Fr outer sheath. Sheath was removed, and over the .035 inch wire, a 10 Fr dilator and then 10 Fr locking pigtail nephrostomy tube was advanced. Pigtail formed and locked, confirmed in collecting system with contrast injection and spot image. The catheter was then connected to external bag drainage and secured to the skin with a single suture. Medications: 1% Lidocaine 10 mL subcutaneous, Fentanyl 100 mcg IV Antibiotic Prophylaxis: Ciprofloxacin, 500 mg p.o. Contrast: 10 cc Omnipaque 350, intraurinary Fluoroscopic Time: 2.4 minutes Estimated Blood Loss: 5 mL. Complications: ??No immediate. Findings: Moderately dilated proximal left collecting system, and tortuous and dilated mid and distal ureter. ??No flow of contrast into the bladder. Impression: Successful placement of 10 Fr locking pigtail nephrostomy catheter within the left renal pelvis. Keep to gravity drainage and flush daily with sterile saline until urine clears. Will plan on 3 month preventive maintenance exchange. Resident: Juliocesar Howe MD Attending: Dr. Torito Sung, Dr. Ugarte, was present throughout the procedure. Joseph Frye MD [facility] ORDER[facility] * Urine culture (07/30/2024 12:45 PM EST) Only the most recent of2 resultswithin the time period is included. Urine Culture No growth 08/01/2024 7:48 AM EST [facility] Urine URINE SPECIMEN FROM NEPHROSTOMY TUBE / Unknown Non Blood Collection / Unknown 07/30/2024 12:45 PM EST 07/30/2024 2:05 PM EST Jamin Ugarte MD MICROBIOLOGY - GENER AL ORDERABLES [facility] [place] [address] * CT Chest Abdomen Pelvis w Contrast (Generic) (07/30/2024 2:50 AM EST) WORKSTATION ID [id number] RAD Anatomical Region Laterality Modality Abdomen, Pelvis Computed Tomogra phy Impressions 07/30/2024 7:42 AM EST 1. Although decompressed by Villalobos catheter, there is asymmetric bladder wall thickening more so along the left posterolateral bladder wall. There is subtle soft tissue extension from this region to the left lateral pelvic sidewall where there is a lobulated confluent adenopathy measuring up to 2.3 cm in thickness. There is also loss of the normal fat plane between the left seminal vesicle and this tumor. 2. Obstructive changes to the left kidney and ureter with the left ureter obscured by the soft tissue mass in the region of the left ureterovesicular junction. 3. Extensive emphysematous changes to the lung parenchyma. There is a pleural-based wedge shaped plaque along the anterolateral aspect of the right upper lobe which is new from the prior 11/13/[address] scan but is otherwise nonspecific. The wedge shaped appearance would be atypical for metastatic disease to the chest Thank you for letting us participate in the care of this patient. ??If you are a health care provider and have any questions regarding this report, please contact the number below. ??For patients who have questions please contact the health manager respiratory care that requested your imaging first. ? Narrative 07/30/2024 7:42 AM EST EXAMINATION: CT CHEST ABDOMEN PELVIS W CONTRAST (GENERIC) CLINICAL HISTORY: likely muscle invasive bladder cancer, staging TECHNIQUE: Helical CT of the chest, abdomen, and pelvis following the intravenous administration of contrast. 69 mL of Omnipaque 350 intravenous contrast utilized without incident. Oral contrast was administered. COMPARISON: Prior studies including the the CT scan from 04/17/2024, the PET/CT from 11/13/2022 and a more remote CT from 07/05/2018 FINDINGS: CHEST: Lung: Extensive centrilobular emphysematous changes bilaterally. This can air trapping is seen in the bilateral lower lobes. Linear reticular markings at both bases likely reflecting a component of scarring and/or atelectasis. There is a regular shaped pleural-based plaque measuring 1.2 x 0.7 cm in size along the anterior aspect of the right upper lobe. This is new from the 11/13/2022 PET/CT scan. Tiny stable rectangular shaped micronodule in the lateral aspect of the right upper lobe on series 7 image 62 not significantly changed from the 11/13/2022 CT scan in retrospect More linear subpleural changes seen otherwise. Central airways grossly unremarkable Mediastinum: Prominent vascular calcification within the aorta and coronary vessels. No bulky hilar or mediastinal adenopathy. Air-fluid level in the upper esophagus may reflect a component of mild esophageal reflux and/or dysmotility. Pericardium/Pleura: No significant effusion. No pleural mass or thickening. Chest Wall/Axilla: Unremarkable. ABDOMEN/PELVIS: Peritoneal Space:No significant free air or free fluid identified. Liver, Gallbladder, Biliary Tree: The liver is normal in size, shape, and attenuation. 0.5 cm hypoattenuation in the medial aspect of segment 7 of the liver is too small to characterize further and may represent a tiny cyst although not well delineated on the prior studies. No other focal hepatic lesion or biliary ductal dilatation is present. ??The gallbladder is unremarkable with no evidence of radiopaque gallstones, gallbladder wall thickening, or obvious pericholecystic inflammatory changes. Pancreas: Unremarkable. Spleen: Regular contour to the lateral spleen likely reflecting a prior splenic injury and/or infarct with an appearance similar to the most recent 04/17/2024 exam. Adrenal Glands: Unremarkable. Kidneys and Ureters: There is left-sided hydronephrosis, hydroureter, and perinephric stranding. The left ureter is dilated throughout its course up to the bladder where there is subtle soft tissue attenuation in the region of the left UVJ and distal most bladder. Contralateral right kidney is unremarkable. Bladder: Although decompressed by Villalboos catheter, there is abnormal bladder wall thickening more so along the left posterior lateral aspect of the bladder with abnormal soft tissue attenuation extending lateral from the bladder to the left pelvic sidewall while there is bulky heterogeneous left pelvic sidewall adenopathy on this is in close proximity to the obstructed left ureter. There is loss of fat plane with the left seminal vesicle as well and I cannot exclude the patient to the left seminal vesicle. Gastrointestinal Tract: Scattered diverticulosis. No colonic wall thickening or pericolonic inflammatory change to suggest diverticulitis. Small bowel grossly unremarkable. Abdominal Wall: Cachectic. No obvious herniation Lymphovascular Structures: Extensive vascular calcification within the aortoiliac system. There is left pelvic sidewall adenopathy confluent in nature measuring up to 2.3 cm in maximal thickness. This has significantly increased in size from the prior study when it measured approximately 0.9 cm in thickness in retrospect. Pelvic Viscera: Enlarged prostate with prostatic calcifications noted. Again there is subtle loss of the tissue plane between the left seminal vesicle in the soft tissue mass extending from the posterior lateral left bladder base. Osseus Structures: Degenerative changes but no obvious acute bony abnormality. Procedure Note Demetrius Washington MD - 07/30/2024 EXAMINATION: CT CHEST ABDOMEN PELVIS W CONTRAST (GENERIC) CLINICAL HISTORY: likely muscle invasive bladder cancer, staging TECHNIQUE: Helical CT of the chest, abdomen, and pelvis following the intravenous administration of contrast. 69 mL of Omnipaque 350intravenous contrast utilized without incident. Oral contrast was administered. COMPARISON: Prior studies including the the CT scan from 04/17/2024, thePET/CT from 11/13/[address]22 and a more remote CT from 07/05/2018 FINDINGS: CHEST: Lung: Extensive centrilobular emphysematous changes bilaterally. This canair trapping is seen in the bilateral lower lobes. Linear reticular markingsat both bases likely reflecting a component of scarring and/or atelectasis. Thereis a regular shaped pleural-based plaque measuring 1.2 x 0.7 cm in size alongthe anterior aspect of the right upper lobe. This is new from the 11/13/2022ET/CT scan. Tiny stable rectangular shaped micronodule in the lateral aspect ofthe right upper lobe on series 7 image 62 not significantly changed from the 11/13/2022 CT scan in retrospect More linear subpleural changes seenotherwise. Central airways grossly unremarkable Mediastinum: Prominent vascular calcification within the aorta andcoronary vessels. No bulky hilar or mediastinal adenopathy. Air-fluid level in theupper esophagus may reflect a component of mild esophageal reflux and/ordysmotility. Pericardium/Pleura: No significant effusion. No pleural mass orthickening. Chest Wall/Axilla: Unremarkable. ABDOMEN/PELVIS: Peritoneal Space:No significant free air or free fluid identified. Liver, Gallbladder, Biliary Tree: The liver is normal in size, shape,and attenuation. 0.5 cm hypoattenuation in the medial aspect of segment 7 ofthe liver is too small to characterize further and may represent a tiny cyst although not well delineated on the prior studies. No other focal hepaticlesion or biliary ductal dilatation is present. The gallbladder is unremarkablewith no evidence of radiopaque gallstones, gallbladder wall thickening, orobvious pericholecystic inflammatory changes. Pancreas: Unremarkable. Spleen: Regular contour to the lateral spleen likely reflecting a priorsplenic injury and/or infarct with an appearance similar to the most recent04/17/2024 exam. Adrenal Glands: Unremarkable. Kidneys and Ureters: There is left-sided hydronephrosis, hydroureter,and perinephric stranding. The left ureter is dilated throughout its course upto the bladder where there is subtle soft tissue attenuation in the region ofthe left UVJ and distal most bladder. Contralateral right kidney isunremarkable. Bladder: Although decompressed by Villalobos catheter, there is abnormalbladder wall thickening more so along the left posterior lateral aspect of the bladderwith abnormal soft tissue attenuation extending lateral from the bladder to theleft pelvic sidewall while there is bulky heterogeneous left pelvic sidewall adenopathy on this is in close proximity to the obstructed left ureter.There is loss of fat plane with the left seminal vesicle as well and I cannotexclude the patient to the left seminal vesicle. Gastrointestinal Tract: Scattered diverticulosis. No colonic wallthickening or pericolonic inflammatory change to suggest diverticulitis. Small bowelgrossly unremarkable. Abdominal Wall: Cachectic. No obvious herniation Lymphovascular Structures: Extensive vascular calcification within the aortoiliac system. There is left pelvic sidewall adenopathy confluent innature measuring up to 2.3 cm in maximal thickness. This has significantlyincreased in size from the prior study when it measured approximately 0.9 cm inthickness in retrospect. Pelvic Viscera: Enlarged prostate with prostatic calcifications noted.Again there is subtle loss of the tissue plane between the left seminal vesiclein the soft tissue mass extending from the posterior lateral left bladder base. Osseus Structures: Degenerative changes but no obvious acute bonyabnormality. IMPRESSION 1. Although decompressed by Villalobos catheter, there is asymmetric bladderwall thickening more so along the left posterolateral bladder wall. There issubtle soft tissue extension from this region to the left lateral pelvic sidewallwhere there is a lobulated confluent adenopathy measuring up to 2.3 cm inthickness. There is also loss of the normal fat plane between the left seminalvesicle and this tumor. 2. Obstructive changes to the left kidney and ureter with the leftureter obscured by the soft tissue mass in the region of the leftureterovesicular junction. 3. Extensive emphysematous changes to the lung parenchyma. There is a pleural-based wedge shaped plaque along the anterolateral aspect of theright upper lobe which is new from the prior 11/13/[address] scan but isotherwise nonspecific. The wedge shaped appearance would be atypical formetastatic disease to the chest Thank you for letting us participate in the care of this patient. If youare a health care provider and have any questions regarding this report,please contact the number below. For patients who have questions please contactthe health manager respiratory care that requested your imaging first. Joseph Frye MD IMG CT ORDERABLES * Neuraxial Block (07/29/2024 1:50 PM EST) Narrative Robb Velasquez MD - 07/29/2024 1:50 PM EST Lincoln Hoskins ? 07/29/2024 ??2:12 PM Procedure: ?? Neuraxial Block Primary Anesthetic Type: Spinal The patient was greeted. The sedation plan, its benefits, risks and alternatives were discussed with the patient. ??The patient has consented to the procedure. ??The medical history and chart were reviewed. ??The timeout was performed. Start time: 07/29/2024 1:50 PM End time: 07/29/2024 1:58 PM Patient Location: Operating Room Patient Prep Position: Sitting Prep: Hand Hygiene, Hat, Mask, Sterile Gloves, Chlorhexidine and Patient Draped Injection technique: single-shot Skin Anesthetic Lidocaine 1% ??1 ml Procedure Technique Level of needle insertion: L4-5 Needle approach: midline Needle Type: Pencan Number of attempts: 1 Medications: Date/Time: ??07/29/2024 1:50 PM BUpivacaine 0.75% with Dextrose - Intrathecal 15 mg - 07/29/2024 1:50:00 PM Events/Notes Events: ??None Additional Notes: ??SAB inserted easily on 1st attempt, uneventful. Patient tolerated the procedure well. + free flow of CSF before & after injection of bupivacaine. ??- heme - paresthesia. Patient turned to lay on side with operative side down immediately upon completion of SAB procedure. Performed by: ?? SRNA: ?Lincoln Hoskins ?? Attending Physician: ? Robb Velasquez MD Authorized by: Robb Velasquez MD ?? ~~~~~~~~~~~~~~~~~~~~~~~~~~~~~~~~~~~~~~~~~~~~~~~~~~~~~~~~~~~~ Robb Velasquez MD CAR RENTAL MANAGER [facility] * EKG 12 Lead (07/29/2024 1:16 PM EST) [facility] Ventricular rate 79 BPM MUSE SYSTEM Atrial Rate 79 BPM MUSE SYSTEM P-R Interval 120 ms MUSE SYSTEM QRS Duration 92 ms MUSE SYSTEM Q-T Interval 400 ms MUSE SYSTEM QTC Calculated (Bezet) 458 ms MUSE SYSTEM Calculated P [place] 7 degrees MUSE SYSTEM Calculated R [place] 70 degrees MUSE SYSTEM Calculated T [place] 88 degrees MUSE SYSTEM INTERPRETATION Normal sinus rhythm T wave abnormality, consider lateral ischemia Abnormal ECG When compared with ECG of 15-JUN-2018 10:36, T wave inversion now evident in Anterolateral leads Confirmed by MD Staci, Kev ([id number]) on 07/29/2024 4:00:12 PM MUSE SYSTEM 07/29/2024 1:16 PM EST 07/29/2024 4:00 PM EST Robb Velasquez MD ECG ORDERABLES MUSE SYSTEM * (ABNORMAL) Comprehensive metabolic panel (07/29/2024 11:20 AM EST) Glucose 137(H) 65 - 99 mg/dL 07/29/2024 12:10 PM [facility] Comment: Fasting Glucose Interpretive Criteria: Normal: 65-99 mg/dL ?? Prediabetes: 100-125 mg/dL ?? Consistent with Diabetes Mellitus: > or = 126 mg/dL ?? Classification and Diagnosis of Diabetes: Standards of Care in Diabetes - 2022. Diabetes Care 2022; 46:S19. Fasting is defined as no caloric intake for at least 8 hours. Blood Urea Nitrogen 16 10 - 20 mg/dL 07/29/2024 12:10 PM [facility] Creatinine 0.88 0.80 - 1.50 mg/dL 07/29/2024 12:10 PM [facility] Sodium 134(L) 135 - 145 mMol/L 07/29/2024 12:10 PM [facility] Potassium 4.8 3.5 - 5.0 mMol/L 07/29/2024 12:10 PM [facility] Chloride 93(L) 98 - 107 mMol/L 07/29/2024 12:10 PM [facility] Carbon Dioxide 29 22 - 31 mMol/L 07/29/2024 12:10 PM [facility] Anion Gap 12 5 - 15 mMol/L 07/29/2024 12:10 PM [facility] Calcium 9.9 8.5 - 10.5 mg/dL 07/29/2024 12:10 PM [facility] Protein, Total 7.6 6.1 - 8.0 g/dL 07/29/2024 12:10 PM [facility] Albumin 3.7 3.2 - 5.2 g/dL 07/29/2024 12:10 PM [facility] Aspartate Aminotransferase 19 <=39 unit/L 07/29/2024 12:10 PM [facility] Alanine Aminotransferase 20 0 - 55 unit/L 07/29/2024 12:10 PM [facility] Alkaline Phosphatase 85 40 - 130 unit/L 07/29/2024 12:10 PM [facility] Bilirubin, Total 0.4 <=1.3 mg/dL 07/29/2024 12:10 PM [facility] Est Glomerular Filtration Rate - Male 94 mL/min/1. 73 m?? 07/29/2024 12:10 PM [facility] Comment: This patient's estimated GFR was calculated using the 2020 CKD-EPI equation. The estimated GFR can vary from the measured GFR by up to 30% in the absence of rapidly changing kidney function. Assessment of the estimated GFR is not appropriate when creatinine concentrations are rapidly changing. For clinical situations in which a more precise estimate of GFR is necessary, consider alternative methods of GFR estimation such as a 24-hour urine creatinine clearance. Assignment of CKD stage 1 - 5 for patients with an eGFR near the transition point between stages may be based on clinical assessment of muscle mass and symptoms in addition to eGFR. Link: eGFR Calculator [employer] Fasting Status Yes 07/29/2024 12:10 PM [facility] Blood VENOUS BLOOD SPECIMEN / Unknown Venipuncture / Unknown 07/29/2024 11:20 AM EST 07/29/2024 11:20 AM EST Joseph Frye MD CHEMISTRY ORDERABL ES [facility] [place] [address] * CYSTOURETHROSCOPY (06/02/2024 3:20 PM EDT) Narrative Louie Salazar MD - 06/02/2024 3:20 PM EDT Louie Salazar MD ? 06/02/2024 ??3:04 PM Patient: Jimenez Marin Date of : 1955 SUBJECTIVE: This 69 y.o. years-old male presents for cystoscopy because of a gross hematuria and bladder mass seen on a CT scan. PROCEDURE - CYSTOSCOPY: Informed consent obtained from the patient and the patient was correctly identified. The patient was cystoscoped with a flexible scope following routine skin cleansing and drapping. ??2% xylocaine gel was instillated into the urethra. ??The urethra was normal. ??The prostate appeared hypertrophic and bilobar. ??There was a large sessile appearing left and right sided bladder wall/neck mass(es) noted. There was a mass on the trigone and UO not visulized. ?? The patient tolerated the procedure well. Patient was given ciprofloxacin IMPRESSION: bladder tumor suspicious for muscle invasive bladder cancer PLAN: 1) Schedule TURBT/RPG, possible stent vs PCN. Louie Salazar MD URO PROCEDURE W RF L ORDERABLES from Last 3 Months Advance Directives Documents on File Type Date Recorded Patient Machine Stamper Expl anation Advance Directives and Livin g Will 08/04/2024 10:52 AM Advance Directives and Livin g Will 08/01/2024 10:24 AM POLST/COLST (Order for Life Sustaining Treatment) 07/31/2024 10:25 AM * Attempt Cardiopulmonary Resuscitation - Inpatient (Latest Code Status on File) Date Activated Date Inactivated Comments 07/29/2024 3:33 PM 08/02/2024 3:56 PM Question Answer Comments Code Status decision made by: Patient Content of discussion: full code * Attempt Cardiopulmonary Resuscitation - Inpatient Date Activated Date Inactivated Comments 07/29/2024 1:11 PM 07/29/2024 3:32 PM Question Answer Comments Code Status decision made by: Patient * Full Code Date Activated Date Inactivated Comments 06/14/2018 8:23 PM 06/18/2018 5:24 PM Question Answer Comments Does patient have capacity to make decision: Yes Care Teams Tongue Lining Stitcher Relationship Specialty Start Date End Date Cintia Jones, MARINE CARGO SURVEYOR [place] [address] PCP - General Family Medicine 05/09/24
--- OUTSIDE RECORDS SUMMARY | 2024-08-06 12:08 | XMS_ITS | Encounter Summary ---
Author Organization Count Includes [facility] Address [facility] [place] [address] Care Team Providers Care Refrigerating Oiler Name Role Phone Cintia Jones DARIANA Primary Care Provider Encounter Details Date Type Department Care Team (Late st Contact Info) Description 08/05/2024 Telephone Radiation Oncology at [address] [phone] Aye Sumner Social History Tobacco Use Types Packs/Day Years Used Date Smoking Tobacco: Former Cigarettes Smokeless Tobacco: Never Comments:Quit 4 months ago p er pt. Alcohol Use Standard Drinks/Week Comments Not Currently 0 (1 standard drink = 0.6 oz pure alcohol) was a heavy drinker, now drinks <3beers per month [facility] Utilities Answer Date Recorded In the past 12 months has th e electric, gas, oil, or water [employer] threatened to shut off services in your [...] any time in the past 12 m [facility], were you homeless or living in a [facility] (including now)? No 07/30/2024 IPV Inpatient Questions Answer Date Recorded Does Anyone [...] encounter Miscellaneous Notes * Telephone Encounter - Aye Sumner - 08/05/2024 4:26 PM EST I called Jimenez to scheduled a consultation with Dr. Santamaria for radiation oncology. Jimenez asked that I call back tomorrow because there are a lot of people going to be calling back shortly. documented in this encounter Plan of Treatment Upcoming Encounters Date Type Department Care Team (Late st Contact Info) Description 08/07/2024 1:30 PM EST Clinical Support [place] [address] 08/07/2024 3:30 PM EST Scheduled View [place] [address] documented as of this encounter Visit Diagnoses Not on filedocumented in this encounter Care Teams Refrigerating Oiler Relationship Specialty Start Date End Date [place] [address] PCP - General Family Medicine 05/09/24 documented as of this encounter
--- OUTSIDE RECORDS SUMMARY | 2024-08-06 12:09 | XMS_ITS | Encounter Summary ---
Author Organization [facility] Address [facility] [place] [address] Care Team Providers Care Brick And Tile Making Machine Operator Name Role Phone Ness Diaz APRN Primary Care Provider Encounter Details Date Type Department Care Team (Late st Contact Info) Description 04/24/2024 [place] [phone] None None Social History Tobacco Use Types Packs/Day Years [...] encounter Miscellaneous Notes * Telephone Encounter - Skyla Garcia - 04/24/2024 10:21 AM EDT Attempted to call patient to schedule NPW and cysto per Dr. Jeffers's phone note from 04/17. Call went to voice mail and the mail box was full at this time. The patient is currently scheduled for 06/02 at 2:40 pm for an NPW with Dr. Salazar and a cysto at 3:20 pm the same day, patient is also on a wait list. Please confirm appointments with patient. documented in this encounter Plan of Treatment Upcoming Encounters Date Type Department Care Team (Late st Contact Info) Description 08/07/2024 1:30 PM EST [place] [phone] 08/07/2024 3:30 PM EST [place]uled [place] [address] documented as of this encounter Visit Diagnoses Not on filedocumented in this encounter Care Teams Brick And Tile Making Machine Operator Relationship Specialty Start Date End Date Ness Diaz, CHILDCARE DIRECTOR [address] [place] [address] PCP - General Family Medicine 05/07/20 05/08/24 documented as of this encounter
--- OUTSIDE RECORDS SUMMARY | 2024-08-06 12:09 | XMS_ITS | Encounter Summary ---
Author Organization [facility] Address [facility] [place] [address] Care Team Providers Care Farm Product Purchaser Name Role Phone Cintia Jones DARIANA Primary Care Provider Encounter Details Date Type Department Care Team (Late st Contact Info) Description 08/01/2024 Telephone Urology at [facility] [place] [phone] Fanta Price, RN Social History Tobacco Use Types Packs/Day Years Used Date Smoking Tobacco: Former Cigarettes Smokeless Tobacco: Never Comments:Quit 4 months ago p er pt. Alcohol Use Standard Drinks/Week Comments Not Currently 0 (1 standard drink = 0.6 oz pure alcohol) was a heavy drinker, now drinks <3beers per month [facility] Utilities Answer Date Recorded In the past 12 months has th e [employer], gas, oil, or water [email or web address] threatened to shut off services in your [...] any time in the past 12 m [facility], were you homeless or living in a senior living (including now)? No 07/30/2024 IPV Inpatient Questions [...] encounter Miscellaneous Notes * Telephone Encounter - Fanta Price RN - 08/01/2024 3:33 PM EST Copied from CRM #[id number]. Topic: Specialty Dept CRMs - Generic Call >> Aug 01, 2024 3:26 PM Amalia Esquivel wrote: Specialist: Joseph Frye MD Relationship (if other than patient-full name): [facility] Reason for Call: Pharmacy calling to advise that medication oxyCODONE CR (OxyCONTIN) 10 mg ER 12 hrtablet (CRUSH RESISTANT) costs $62 without a PA and that he thinks patient may not want to pay it. Pharmacy is requesting call back to advise if a PA will be initiated on behalf of patient for this medication . Please call [facility] at [phone] to advise documented in this encounter Plan of Treatment Upcoming Encounters Date Type Department Care Team (Late st Contact Info) Description 08/07/2024 1:30 PM EST Clinical [place] [address] 08/07/2024 3:30 PM EST Scheduled [place] [phone] documented as of this encounter Visit Diagnoses Not on filedocumented in this encounter Care Teams Farm Product Purchaser Relationship Specialty Start Date End Date Cintia Jones, SET UP PERSON [address] [place] [address] PCP - General Family Medicine 05/09/24 documented as of this encounter
--- OUTSIDE RECORDS SUMMARY | 2024-08-06 12:09 | XMS_ITS | Encounter Summary ---
Author Organization [facility] Address [facility] [place] [address] Care Team Providers Care Can Feeder Name Role Phone Cintia Jones APRN Primary Care Provider [phone] Reason for Visit * Auth/Cert (Routine) Specialty Diagnoses / Procedures Referred By Christin connelly Referred To Contact Diagnoses Bladder tumor to Procedures PRO CYSTOURETHROSCOPY, FULGUR >5CM LESN PRO CYSTOURETHROSCOPY, URETER CATHETER CYSTO, RESECTION BLADDER TUMOR, GREATER THAN 5.0CM (WRVU 7.5) CYSTO, RETROGRADE, URETEROPYELOGRAPHY (WRVU 2.37) Umu Frye MD [facility] [place] [address] [facility] Referral ID Status Reason Start Date Expiration Date Visits Re quested Visits Authorized [id number] 1 1 Encounter Details Date Type Department Care Team (Late st Contact Info) Description 07/29/2024 12:15 PM EST - 07/29/2024 2:33 PM EST [place] [address] [facility] [place] [place] [address] [address] CYSTO, RESECTION BLADDER TUMOR, GREATER THAN 5.0CM (WRVU 7.5) Social History Tobacco Use Types Packs/Day Years Used Date Smoking Tobacco: Former Cigarettes Smokeless Tobacco: Never Comments:Quit 4 months ago p er pt. Alcohol Use Standard Drinks/Week Comments Not Currently 0 (1 standard drink = 0.6 oz pure alcohol) was a heavy drinker, now drinks <3beers per month [facility] Utilities Answer Date Recorded In the past 12 months has th e electric, gas, oil, or water company threatened to shut off services in your [...] any time in the past 12 m [facility], were you homeless or living in a custodial (including now)? No 07/30/2024 DH IPV Inpatient Questions Answer Date Recorded Does [...] Sign Reading Time Taken Comments Blood Pressure 180/81 07/29/2024 1:23 PM EST Pulse 78 07/29/2024 1:23 PM EST Temperature 36.6 ??C (97.9 ??F) 07/29/2024 12:[address] Respiratory Rate 16 07/29/2024 1:23 PM EST Oxygen Saturation 100% 07/29/2024 1:23 PM EST Inhaled Oxygen Concentration - - Weight 45.9 kg (101 lb 1.6 oz) 07/29/2024 12:04 PM EST Height 182.9 cm (6') 07/29/2024 12:04 PM EST Body Mass Index 13.71 07/29/2024 12:04 PM EST documented in this encounter Discharge Summaries * Amanda Robison PA - 08/02/2024 11:08 AM EST Images from the original note were not included. Discharge Summary Patient Name: Jimenez Marin Patient Age: 69 y.o. Language: Ecuadorean Race: White Ethnicity: Not nor Admit date: 07/29/2024 Discharge date: 08/02/2024 Attending Physician: Umu Frye MD Discharge Diagnoses (Hospital Problems) and Secondary Diagnoses (Chronic Problems): Active Hospital Problems Diagnosis Bladder tumor Severe protein-calorie malnutrition Resolved Hospital Problems No resolved problems to display. Active Non-Hospital Problems Diagnosis Facial fracture due to fall Splenic laceration Pain in right shoulder Operations/Major Procedures: Procedure(s): CYSTO, RESECTION BLADDER TUMOR, GREATER THAN 5.0CM (WRVU 7.5) EUA RECTUM (WRVU 7.56) 06/24/2024 - 07/29/2024 History of Presentation: (from admission H&P) Jimenez Marin is a 69 y.o. male with a history of COPD, NV s/p stents, recently quit smoking, gross hematuria, and bladder mass seen on a CT scan with office cystoscopy on 06/02/24 notable for a large sessile appearing left and right sided bladder wall/neck mass(es) noted. There was a mass on the trigone and UO not visualized. He presents for TURBT/RPG, possible stent vs PCN. He reports chest pain that is chronic. He is clearly SOB at baseline and states that this is the way his breathing is. He is on home oxygen. He also sees a palliative care physician in [facility],but doesn't know her name and doesn't know why he is seeing her. When asked about his goals in life he states he is unsure and doesn't want to think about it. He does have ongoing hematuria, no clots. He does have difficulties emptying his bladder and bladder pain/ left flank pain. He can take care of his ADL at home Goes shopping once a month. Lives with a room mate who also is a friend. He doesn't know the phone number of his friend. Anticoagulation: ASA81 and Plavix - continue ASA81, Plavix held x7 days. Micro: 06/03/24 [facility] NG OR Findings 07/29/24: - large muscle invasive tumor along trigone, left ureteral orifice not visualized, right ureteral orifice unroofed with papillary tumor extruding - total 8.5cm resection - EUA with mass on the left - 22Fr 2-way Ferris with 10cc in balloon Hospital Course: Patient was admitted electively to [facility] via the same day surgery program and underwent the above procedure. He tolerated surgery well and was tranferred from the PACU to the general floor in good condition a few hours after surgery. #left hydronephrosis Left nephrostomy tube placed by IR 07/30. Cr stable. #chronic abdominal pain #s/p TURBT Palliative care consulted for likely muscle invasive bladder cancer. Unclear etiology of pt's chronic pain. Some of this seems to have been alleviated by left PCN. Palliative team made outpatient analgesic recs. Per Dr Frye: I also discussed the patient's care with the palliative care team. Based on my best judgement (pending path report), he has [id number] bladder cancer, I.e., locally advanced. Given his overall poor health, he is not a candidate for radical cystectomy. Given bulk of disease,he is not a candidate for bladder sparing trimodal therapy. Thus, goals of care are palliative. We referred him for consideration of palliative radiotherapy to [facility]. Given his poor overall health and extent of cancer, I believe his life expectancy is less than 1 year. Our palliative care connected with his palliative care physician in [facility] Who will provide follow-up. Discharge was delayed on 08/01/24 due to needing to arrange VNA PT for patient and a ride. VNA PT is now ordered with ride set up for this afternoon, patient is ready for discharge today. He remained afebrile, with stable vital signs throughout his hospital stay. Today, on POD# 4 he hasmet all criteria for discharge home: his pain is well controlled with medications by mouth, he is tolerating a regular diet, is voiding via Ferris and PCN without difficulties, and is up and ambulating without complications. He has been deemed safe for discharge. Plan: -Follow up: Void trial 08/07, Dr Frye to call w/ yann - CRISTIANE w/ Palliative care at [facility] 08/05 w/ Dr Byrd -Cx: Ucx added to book - Hold Plavix, discuss w/ PCP - continue taking ASA81 Vital Signs at Discharge: Weight: Wt Readings from Last 1 Encounters: 07/29/24 45.9 kg (101 lb 1.6 oz) Height: Ht Readings from Last 1 Encounters: 07/29/24 182.9 cm (6') BMI: Body mass index is 13.71 kg/m??. Last value Range last 24 hrs Temperature Temp: 36.7 ??C (98 ??F) Temp: [36.4 ??C (97.5 ??F)-36.7 ??C (98.1 ??F)] Heart Rate Heart Rate: 88 Heart Rate: -- Blood Pressure BP: 169/75 BP: (120-169)/(63-76) Respiratory Rate Resp: 16 Resp: [16-18] SpO2 SpO2: 94 % SpO2: [93 %-99 %] Exam at Discharge: General: NAD, resting comfortably, pleasant, conversant HEENT: Normocephalic, atraumatic, anicteric sclerae CVS: Reg rate Pulm: Non labored on room air Abd: soft, nontender, non-distended. : Ferris draining clear pink tinged urine, left PCN draining light red urine Skin: warm, dry Ext: well perfused Functional and Cognitive Status: Ambulating and cognitively intact. Important Studies and Lab Data: Labs:Last 3 wbc, hgb, hct plt Recent Labs 08/02/24 0452 08/01/24 0536 07/31/24 0506 WBC 10.77* 12.60* 16.51* HGB 10.8* 10.2* 11.0* HCT 33.7* 31.5* 34.6* PLATELET 297 316 322 Last 3 Lytes Recent Labs 08/02/24 0452 08/01/24 0536 07/31/24 0506 NA 133* 133* 135 K 4.1 4.2 4.6 CL 96* 95* 97* CO2 28 29 28 BUN 18 21* 17 CREATININE 0.92 1.04 1.02 Studies: Results for orders placed or performed during the hospital encounter of 07/29/24 CT Chest Abdomen Pelvis w Contrast (Generic) (Exam End: 07/30/2024 2:50 AM) Result Value WORKSTATION ID [id number] Impression 1. Although decompressed by Ferris catheter, there is asymmetric bladder wall thickening [...] in the care of this patient. If you are a health care provider and have any questions regarding this report, please contact the number below. For patients who have questions please contact the health day care aide that requested your imaging first. Electronically signed by: Demetrius [place] [facility] ([phone]), at 07/30/2024 7:42 AM Pending Studies and Lab Data: No current labs Discharge Conditions/Prognosis: Stable, medically appropriate for discharge Discharge to: Home Updated Allergies/ADRs: Allergies Allergen Reactions Simvastatin Tegretol [Carbamazepine] Immunizations Given this Hospitalization: There is no immunization history for the selected administration types on file for this patient. Discharge Medications: Your Medications New Medications Dose Details * oxyCODONE 5 mg tablet Commonly known as: Roxicodone Take 1 tablet by mouth every 4 hours as needed for Pain (moderate to severe pain 7-10) for up to 5 days. 5 mg Quantity: 20 tablet Refills: 0 * oxyCODONE CR 10 mg ER 12 hr tablet (CRUSH RESISTANT) Commonly known as: OxyCONTIN Take 1 tablet by mouth 2 times daily for 5 days. 10 mg Quantity: 10 tablet Refills: 0 * This list has 2 medication(s) that are the same as other medications prescribed for you. Read thedirections carefully, and ask your doctor or other care provider to review them with you. Continued medications, unchanged Dose Details aspirin EC 81 mg EC (DR) tablet Take 81 mg by mouth daily. 81 mg Refills: 0 atorvastatin 20 mg tablet Commonly known as: Lipitor Take 20 mg by mouth daily. 20 mg Refills: 0 Breztri Aerosphere 160-9-4.8 mcg/actuation inhaler (HFA) Inhale 2 puffs into the lungs 2 times daily. Generic drug: rddhnzugpk-pmaumqdndgwplb-brqxhixqcm 2 puff Refills: 0 citalopram 20 mg tablet Commonly known as: CeleXA Take 20 mg by mouth daily. 20 mg Refills: 0 docusate sodium 100 mg capsule Commonly known as: Colace Take 1 capsule by mouth 2 times daily. 1 capsule Refills: 0 escitalopram 20 mg tablet Commonly known as: Lexapro Take 1 tablet by mouth Daily at Noon. 1 tablet Refills: 0 fluticasone propionate 50 mcg/actuation nasal spray, suspension Commonly known as: Flonase 1 spray daily. 1 spray Refills: 0 ipratropium-albuteroL 0.5 mg-3 mg(2.5 mg base)/3 mL Solution for Nebulization Commonly known as: Duoneb Take 3 mLs by nebulization every 4 hours as needed. 3 mL Refills: 0 LAMICTAL ORAL Take 50 mg by mouth 2 times daily. 50 mg Refills: 0 lisinopriL 10 mg tablet Commonly known as: Zestril Take 10 mg by mouth daily. 10 mg Refills: 0 loratadine 10 mg Tablet Commonly known as: Claritin Take 10 mg by mouth daily. 10 mg Refills: 0 meloxicam 15 mg tablet Commonly known as: Mobic Take 15 mg by mouth daily. 15 mg Refills: 0 multivitamin Ldgi-Ft-XC-Min 27-0.4 mg Tablet Commonly known as: Therapeutic-M Take 1 tablet by mouth daily. 1 tablet Refills: 0 multivitamin with minerals Tablet Commonly known as: One-A-Day Take 1 tablet by mouth Daily @ 0600. 1 tablet Refills: [address] capsule Commonly known as: PriLOSEC Take 20 mg by mouth daily. 20 mg Refills: 0 oxyCODONE-acetaminophen 5-325 mg tablet Commonly known as: Percocet Take 1 tablet by mouth every 8 hours as needed. 1 tablet Refills: 0 polyethylene glycoL 17 gram/dose Powder Commonly known as: Miralax Take 17 g by mouth daily. 17 g Refills: 0 ProAir HFA 90 mcg/actuation inhaler (HFA) Inhale 2 puffs into the lungs every 4 hours as needed for Wheezing. Use with spacer Generic drug: albuteroL 2 puff Refills: 0 QUEtiapine 50 mg tablet Commonly known as: Seroquel Take 50 mg by mouth 2 times daily. 50 mg Refills: 0 Senexon-S 8.6-50 mg Tablet Take 2 tablets by mouth daily. Generic drug: senna-docusate 2 tablet Refills: 0 Spiriva with HandiHaler 18 mcg inhalation capsule with device Inhale 18 mcg into the lungs daily. Generic drug: tiotropium 18 mcg Refills: 0 SYMBICORT INHL Inhale into the lungs. Refills: 0 traZODone 100 mg tablet Commonly known as: Desyrel Take 100 mg by mouth nightly. 100 mg Refills: 0 Vitamins B Complex Tablet Take 1 tablet by mouth Daily at Noon. Generic drug: b complex vitamins 1 tablet Refills: 0 STOPPED Medications clopidogreL 75 mg tablet Commonly known as: Plavix Smoking Status at Discharge: Social History Tobacco Use Smoking Status Former Current packs/day: 0.25 Types: Cigarettes Smokeless Tobacco Never Tobacco Comments Quit 4 months ago per pt. Instructions Given to Patient at Discharge: Patient Instructions Instructions following Bladder Biopsy or Resection Call your doctor for: Fevers greater than 101.3F Severe nausea or vomiting Increasing pain not controlled by pain medications Copious blood in your urine Severe back or side pain Inability to urinate or Ferris catheter stops draining before 5 PM weekdays for urgent concerns after 5 PM and weekends. Ask for the on-call Urology resident Activity: As tolerated by your comfort level. Urination: - You will likely have blood in your urine for the next several days, up to 10- 14 days. This is normal. - If you are passing large amounts of blood clots, persistent bright red blood, or unable to urinate, please call our office at [phone] before 5PM or [phone] after hours or go to your localEmergency Department BLADDER - URINARY CATHETER APPOINTMENT: Voiding trial has been scheduled on 08/07 at 1:30pm A urinary catheter is a flexible plastic tube used to drain urine from your bladder when you cannoturinate on your own. The catheter allows urine to drain from the bladder into a bag. The bag is usually attached to the thigh. You may need a catheter because you have a medical condition (such as an enlarged prostate) that makes it hard to urinate. Or you may need one if you are not able to control the release of urine or if lyou have had surgery on the pelvis or urinary tract. These catheters are also used when the lowerpart of the body is paralyzed. Catheter care Always wash your hands before and after you handle your catheter. Make sure that urine is flowing out of the catheter into the urine collection bag. Make sure that the catheter tubing does not get twisted or kinked. Keep the urine collection bag below the level of your bladder. Make sure that the urine collection bag does not drag and pull on the catheter. Unless you have been told not to , it isokay to shower with your catheter and urine collection bag in place. Check for inflammation or signs of infection in the area around the catheter. Signs of infection include irritated, swollen, red, or tender skin. You may see pus around the catheter. Clean the skin around the catheter twice a day using soap and water. Dry with a clean towel afterward. Do not apply powder or lotion to the skin around the catheter. Do not tug or pull on the catheter. Do not have sexual intercourse while wearing a catheter. At night you may wish to hang the urine collection bag on the side of your bed. To empty the urine collection bag Wash your hands with soap and water. If your doctor has asked you to keep a record, measure the amount of urine in the bag before you empty it. Remove the drain spout from its sleeve at the bottom ofthe collection bag. Open the valve on the spout. Let the urine flow out of the bag and into the toilet or container. Do net let the tubing or drain spout touch anything. After you empty the bag, wipeoff any liquid on the end of the drain spout. Close the valve. Then put the drain spout back into its sleeve at the bottom of the collection bag. Wash your hands with soap and water. When should you call for help? Call your doctor now or seek immediate medical care if: You have symptoms of urinary infection. For example: You have blood or pus in your urine. You have pain in your back just below your rib cage. This is called flank pain. You have a fever, chills or body aches. You have groin or belly pain. Your urine smells bad. You see large blood clots in your urine No urine or very little urine is flowing into the bag for 4 or more hours. Watch closely for changes in your health and be sure to contact your doctor if: The area around the catheter becomes irritated, swollen, red, tender or has pus draining from it. Urine is leaking from the place where the catheter enters your body. Pain & Medications: - Drink 2 liters (64oz) water daily to dilute the urine. - You may take acetaminophen (Tylenol) up to 1000mg every 6 hours and/or ibuprofen (Motrin, Advil, or generic) up to 600mg every 8 hours (unless you have been advised not to take ibuprofen or other NSAIDs) - We recommend alternating acetaminophen and ibuprofen so that you are taking one every 3 hours. For example, acetaminophen at 12pm, ibuprofen 3pm, acetaminophen 6pm, ibuprofen 9pm, etc. - Do not exceed 4000mg acetaminophen in 24 hours. Do not exceed 3200mg ibuprofen in 24 hours. - Anticoagulation: Continue taking aspirin 81mg daily. Discuss Plavix with your PCP before taking it as it will likely cause more blood in your urine - The [facility] palliative care team has recommended opioid pain medication to be prescribe. You have been prescribed OxyContin 10mg twice daily, and oxycodone 5mg every 4 hours as needed for breakthroughpain. We will send you on a 4-5 day prescription of this medication and your [facility] palliative care team will fill/change all future refills. Follow-up: - An appointment has been scheduled as below. Please call [phone] (clinic number for appointments) to confirm date and time of your appointment if you do not receive your apointment in 1 week. - You will receive a phone call from your surgeon with a discussion of pathology results within 7-10 days of surgery. We will not have pathology results earlier than at least 7 days post-operatively.If you have not heard by 10 days post-op, please call our office. Future Appointments Date Time Provider Department Center 08/07/2024 1:30 PM UROLOGY, NURSE [facility] 08/07/2024 3:30 PM UROLOGY, NURSE [facility] You have been scheduled an appointment with your [facility] Palliative Care team with Dr. Bethany Byrd. You appointment in on Sunday 08/05 at 10:20 am. You should call your PCP and receive a follow up appointment within 1-2 weeks to discuss your hospitalization and medical changes. Discuss the wedge shaped plaque found on your right lung on the CT scan w/ your PCP for possible monitoring/future workup. Discuss anticoagulants w/ your PCP. You received aspirin 81mg in the hospital, but we did not give you Plavix. Please take your medication exactly as prescribed. Read all instructions that come with your medication. Using narcotic pain medication (such as oxycodone, OxyContin, hydromorphone (Dilaudid), morphine, fentanyl, or tramadol) may cause addiction. While addiction is more common in people with a personal or family history of addiction, it can occur in anyone. Taking more than the prescribed amount of medication or using with alcohol or other drugs can causeyou to stop breathing resulting in coma, brain damage, or . Opioids (oxycodone, hydromorphone/Dilaudid, OxyContin, morphine, fentanyl, tramadol) can slow reaction time, cause drowsiness, or cloud judgement. It is unsafe for you to drive or operate heavy machinery while taking this medication. Opioids (oxycodone, hydromorphone/Dilaudid, OxyContin, morphine, fentanyl, tramadol) are at risk ofbeing diverted by anyone with access to your home. Opioids should be stored in a safe and secure place, such as a locked cabinet or safe. Unused opioids (oxycodone, hydromorphone/Dilaudid, morphine, fentanyl, tramadol) should be disposedof according to the label or patient information. If there are no specific instructions, medications may be returned to a take-back location or mixed with a small amount of water and an undesirable waste substance such as coffee grounds or cat litter. General Instructions [facility] Vascular and Interventional Radiology Discharge Instructions for Percutaneous Nephrostomy Tube (PCN) or Nephroureterostomy Tube (NU) You have had a PCN tube or NU tube placed because you have a blockage of urine flow between your kidney and bladder. These tubes will allow urine to drain from your kidney outside into a bag or inside into your bladder. If your tube is connected to a drainage bag it is important to empty it regularly. The PCN tube is a thin catheter placed into your kidney to drain urine. You may have one tube in a kidney or two tubes, one in each kidney. The urine collects in a bag attached to the tube. In most cases, the bag is attached to your leg. Sometimes the catheter tube has a valve that lets you drain the urine into the toilet or other container. You may need a PCN tube if you have a blockage or a hole in your urinary tract. The blockage may becaused by a kidney stone, infection, scar tissue, or a tumor. If you have only one tube, you still need to urinate. Your other kidney will still produce urine that will drain into your bladder. Having a nephrostomy tube in for a long time increases the risk of getting an infection. Nephrostomy tube care focuses on preventing infection. The (NU tube) is a one piece catheter that goes from your kidney via the ureter into the bladder. How can you care for yourself at home? Wash your hands before you handle the tubes. Clean the area around the tube with soap and water weekly. You may shower after 1 week without a bandage. You may remove the bag and connecting tubing from the drain. Put a shared services manager on both the drain and the bag. You can shower with the bag off. Clean around the tube with soap and water. Pat dry. You can clean the bag after removing it from the tube. Use another container to collect your urine while you clean the bag. To clean the bag, fill it with 2 parts vinegar to 3 parts water, and let itstand for 20 minutes. Then empty it out, and let it air dry. Keep the drainage bag lower than your kidney to keep urine from backing up. Empty the drainage bag before it is completely full or every 2 to 3 hours. Do not swim or take baths while you have a nephrostomy tube. Change the dressing around the nephrostomy tube about every 3 days or when it gets wet or dirty. A nurse will teach you how to change it. Activity: You may be sore for several days after the tube is inserted. This may limit your activity. You should be careful to avoid activity that causes a pulling sensation, pain or kinking of the tube. When to call your healthcare provider: There may be a little blood in the urine after the tube is placed or changed. Contact your healthcare provider if the bleeding doesn???t stop in a couple of days or if the drainage becomes bright red. If urine or blood leaks around the tube, or poor drainage into the bag If the tube stops draining urine (if attached to a bag system) If skin around the tube is red or irritated or if you see any swelling or drainage around the tube. If you have shaking chills. If you have a fever equal to or greater than 101 degrees Fahrenheit (if these symptoms occur and your tube has been capped you should uncap it and connect to a drainage bag). If you have unusual pain in your flank or at the tube site. A faint urine smell is often present, but if the smell becomes strong call your healthcare provider. Decreased drainage into the bag. Tube Care: You may take a shower after 1 week. Dry the area well. Redress the drain afterwards. You may showerwith the old dressing in place and then replace after your shower. It may be easier to take a sponge bath. You may NOT take a tub bath or swim. It is important that you take care of your tube. It can be pulled out if it is caught on something.If you think the tube is partly pulled out or if it comes out completely, we can usually put it back in easily if you come to see us within 12-24 hours. It is important to keep the skin around the tube healthy. You should clean the area with soap and water a minimum of once per week. Replace the gauze dressing after you have cleaned and completely dried the skin. It is ok to change the dressing at anytime if it gets soiled. We will schedule regular tube changes for you to avoid the tube becoming blocked. You will receive these follow-up appointments in the mail (usually every 3 months). When to call the Interventional Radiology Department: Please call with any questions or concerns. If it is during regular office hours, please call [phone]. If it is after regular office hours, or on weekends or holidays, please call [phone] and ask to speak to the Safe Deposit Box Rental Clerk solution director for Interventional Radiology. You have received medication during your procedure to help lessen anxiety and keep you comfortable.These medications affect judgement and reaction time. We recommend that you do not drive, operate equipment, sign any important documents, or smoke unattended for 24 hours following your procedure. Because of the sedation, be careful on stairs, as you may be unsteady on your feet. You may resume your regular diet as tolerated. IV site -- slight redness, or tenderness is normal, you can use a warm compress. If tenderness and redness increases or foul drainage occurs, please contact your M. D. Revised 07/03/19 Future Appointments and Orders Future Appointments and Orders Future Appointments Provider Department Dept Phone 08/07/2024 1:30 PM UROLOGY, NURSE Urology at [facility] Arrive at: Stock Room Manager Area [phone] 08/07/2024 3:30 PM UROLOGY, NURSE Urology at [facility] Arrive at: Stock Room Manager Area [phone] Future Orders Complete By Expires IR Nephrostomy Tube Exchange Left [[id number] Custom] 10/30/2024 11/27/2024 Process Instructions: Scheduling Instructions: Questions: Where will study be performed?: [facility] Radiology To be scheduled: Next available after expected date Reason for exam and clinical history: Left ureteral malignant obstruction, probable invasive bladder tumor with left hydronephrosis and flank pain, left ureteral orifice not visualized. Left 10 Spanish PCN placed 07/30/2024 Exam/Procedure requested: What labs need to be collected during imaging study?: Is the patient on anticoagulant / antiplatelet therapy ?: No Does patient require sedation?: None Sedation rationale: Referral to Home Health [REF34 Custom] As directed Process Instructions: If no progress note charted, please enter Clinical details in comments. Scheduling Instructions: Comments: Please evaluate Jimenez Marin for admission to Home Health. [address] [facility] [address] Date of : 1955 Inpatient DOCUMENTATION FOR VNA SERVICES (INCLUDING THOSE PATIENTS WITH MEDICARE COVERAGE REQUIRING HOME VNA SERVICES AND/OR HOSPICE SERVICES) PATIENT'S LOCATION: Jimenez Marin [address] [facility] [address] (home) Cell: Telephone Information: Order Dispatcher Chief's Name: Self/Patient In discussion with the attending physician, it is certified that this patient is under their care and that they, or a Nurse Practitioner, Clinical Nurse specialist or Physician Frame Polisher who is working directly with them, had a face to face encounter that meets the physician face to face encounter requirements with this patient on 08/02/24. The encounter with the patient was in whole, or in part, for the following medical condition, whichis the primary reason for home health care services: Home health PT In discussion with the provider, it is certified that, based on their findings, the following services are medically necessary for home health services. To provide the following care/treatments with the clinical findings supporting the need for services as follows: HOME CARE ORDERS: RN ORDERS: Assess vital signs, cardiopulmonary status, nutrition, hydration, elimination -Additional Orders: Monitor medication effectiveness and management, Reinforce education regarding health issues, and Assess wound or incision (please add detailed wound care instructions here: N/A) PT ORDERS: Continue rehab for endurance, gait stability and strength with mobility and transfers. Home safety evaluation. Home exercise program if appropriate. OT ORDERS: Assess and continue rehab for managing ADLs. HOME HEALTH CARE AGENCY: [facility]. [address] [place] [address] START OF CARE: within 24-48 hours of discharge In discussion with the attending physician, it is certified that the clinical findings support thatthis patient is homebound because absences from home require considerable and taxing effort due to:Medically contraindicated due to immunosuppression and increased risk of infection Medically contraindicated due to infected, draining or complicated wound Unable to ambulate community surfaces or distances unassisted due to pain, lower extermity weaknessor decreased balance and risk for falls Unsteady gait, poor balance, requiring assistive devices and/or assistance of another. Please note that any additional orders needs or changes will need to be obtained from this patient's PCP: Cintia Jones APRN [address] [place] [address] . All VNA agencies whichcover the area of patient's residence have been reviewed, either verbally or in writing, and patient/family have chosen the home health care agency noted. Questions: Disciplines Requested: Nursing Physical Therapy Occupational Therapy Referral to Radiation Oncology [REF95 Custom] As directed Process Instructions: If no progress note charted, please enter Clinical details in comments. Scheduling Instructions: Questions: My question or request is: Palliative radiation for locally advanced bladder cancer Follow-Up: Future Appointments Date Time Provider Department Center 08/07/2024 1:30 PM UROLOGY, NURSE [facility] 08/07/2024 3:30 PM UROLOGY, NURSE [facility] Primary Care Provider: Cintia Jones APRN [phone] Follow-up Recommendations for Providers: See lung CT findings above regarding wedge shaped plaque in right lung upper lobe. Assess and possible further outpatient workup. In setting of previous NV patient was on Plavix, but this was held as an inpatient and transitions to 81mg ASA daily, but recommend following up with need for potential Plavix use. Unexpected Findings: Wedge shaped plaque right upper lobe of lung. Call your doctor if: Please call your doctor immediately or go to an Emergency Department if you notice worsening pain not controlled by pain medications, uncontrolled headache, vision changes, chest pain, difficulty breathing, persistent nausea and vomiting, new redness or swelling in any extremities, new onset weakness or changes in sensation, or for any fevers greater than 101.3 F. Your care was managed by the Urology Team at [facility]. If you have any questions or concerns, please feel free to contact us. Provider Contact Information: Urology Clinic: [facility] (after business hours): Time spent on discharge plannin minutes DIANA Zhao 08/02/2024 * Wale Torrez PA - 07/30/2024 2:42 PM EST Images from the original note were not included. Discharge Summary Patient Name: Jimenez Marin Patient Age: 69 y.o. Language: Ecuadorean Race: White Ethnicity: Not nor Admit date: 07/29/2024 Discharge date: 08/01/2024 Attending Physician: Umu Frye MD Discharge Diagnoses (Hospital Problems) and Secondary Diagnoses (Chronic Problems): Active Hospital Problems Diagnosis Bladder tumor Severe protein-calorie malnutrition Resolved Hospital Problems No resolved problems to display. Active Non-Hospital Problems Diagnosis Facial fracture due to fall Splenic laceration Pain in right shoulder Operations/Major Procedures: Procedure(s): CYSTO, RESECTION BLADDER TUMOR, GREATER THAN 5.0CM (WRVU 7.5) EUA RECTUM (WRVU 7.56) 06/24/2024 - 07/29/2024 History of Presentation: (from admission H&P) Jimenez Marin is a 69 y.o. male with a history of COPD, NV s/p stents, recently quit smoking, gross hematuria, and bladder mass seen on a CT scan with office cystoscopy on 06/02/24 notable for a large sessile appearing left and right sided bladder wall/neck mass(es) noted. There was a mass on the trigone and UO not visualized. He presents for TURBT/RPG, possible stent vs PCN. He reports chest pain that is chronic. He is clearly SOB at baseline and states that this is the way his breathing is. He is on home oxygen. He also sees a palliative care physician in [facility],but doesn't know her name and doesn't know why he is seeing her. When asked about his goals in life he states he is unsure and doesn't want to think about it. He does have ongoing hematuria, no clots. He does have difficulties emptying his bladder and bladder pain/ left flank pain. He can take care of his ADL at home Goes shopping once a month. Lives with a room mate who also is a friend. He doesn't know the phone number of his friend. Anticoagulation: ASA81 and Plavix - continue ASA81, Plavix held x7 days. Micro: 06/03/24 UCx NG OR Findings 07/29 - large muscle invasive tumor along trigone, left ureteral orifice not visualized, right ureteral orifice unroofed with papillary tumor extruding - total 8.5cm resection - EUA with mass on the left - 22Fr 2-way Ferris with 10cc in balloon Hospital Course: Patient was admitted electively to [facility] via the same day surgery program and underwent the above procedure. He tolerated surgery well and was tranferred from the PACU to the general floor in good condition a few hours after surgery. #left hydronephrosis Left nephrostomy tube placed by IR 07/30. Cr stable. #chronic abdominal pain #s/p TURBT Palliative care consulted for likely muscle invasive bladder cancer. Unclear etiology of pt's chronic pain. Some of this seems to have been alleviated by left PCN. Palliative team made outpatient analgesic recs. Per Dr Frye: I also discussed the patient's care with the palliative care team. Based on my best judgement (pending path report), he has [id number] bladder cancer, I.e., locally advanced. Given his overall poor health, he is not a candidate for radical cystectomy. Given bulk of disease,he is not a candidate for bladder sparing trimodal therapy. Thus, goals of care are palliative. We referred him for consideration of palliative radiotherapy to [facility]. Given his poor overall health and extent of cancer, I believe his life expectancy is less than 1 year. Our palliative care connected with his palliative care physician in [facility] Who will provide follow-up. He remained afebrile, with stable vital signs throughout his hospital stay. Today, on POD# 3 he hasmet all criteria for discharge home: his pain is well controlled with medications by mouth, he is tolerating a regular diet, is voiding via Ferris and PCN without difficulties, and is up and ambulating without complications. He has been deemed safe for discharge. Plan: -Follow up: Void trial 08/07, Dr Frye to call w/ yann - CRISTIANE w/ Palliative care at [facility] 08/05 w/ Dr Byrd -Cx: Ucx added to book - Hold Plavix, discuss w/ PCP - continue taking ASA81 Vital Signs at Discharge: Weight: Wt Readings from Last 1 Encounters: 07/29/24 45.9 kg (101 lb 1.6 oz) Height: Ht Readings from Last 1 Encounters: 07/29/24 182.9 cm (6') BMI: Body mass index is 13.71 kg/m??. Last value Range last 24 hrs Temperature Temp: 36.3 ??C (97.3 ??F) Temp: [36.3 ??C (97.3 ??F)-36.7 ??C (98.1 ??F)] Heart Rate Heart Rate: 88 Heart Rate: -- Blood Pressure BP: 149/71 BP: (113-149)/(59-73) Respiratory Rate Resp: 20 Resp: [15-20] SpO2 SpO2: 93 % SpO2: [93 %-95 %] Exam at Discharge: General: NAD, resting comfortably, pleasant, conversant HEENT: Normocephalic, atraumatic, anicteric sclerae CVS: Reg rate Pulm: Non labored on room air Abd: soft, nontender, non-distended. : Ferris draining clear yellow urine, left PCN draining light red urine Skin: warm, dry Ext: well perfused Functional and Cognitive Status: Ambulating and cognitively intact. Important Studies and Lab Data: Labs:Last 3 wbc, hgb, hct plt Recent Labs 08/01/24 0536 07/31/24 0506 07/30/24 0503 WBC 12.60* 16.51* 11.30* HGB 10.2* 11.0* 11.5* HCT 31.5* 34.6* 34.2* PLATELET 316 322 342 Last 3 Lytes Recent Labs 08/01/24 0536 07/31/24 0506 07/30/24 0503 NA 133* 135 134* K 4.2 4.6 4.2 CL 95* 97* 95* CO2 29 28 29 BUN 21* 17 18 CREATININE 1.04 1.02 0.82 Studies: Results for orders placed or performed during the hospital encounter of 07/29/24 CT Chest Abdomen Pelvis w Contrast (Generic) (Exam End: 07/30/2024 2:50 AM) Result Value WORKSTATION ID [id number] Impression 1. Although decompressed by Ferris catheter, there is asymmetric bladder wall thickening [...] in the care of this patient. If you are a health care provider and have any questions regarding this report, please contact the number below. For patients who have questions please contact the health day care aide that requested your imaging first. Electronically signed by: Demetrius Washington [facility] ([phone]), at 07/30/2024 7:42 AM Pending Studies and Lab Data: No current labs Discharge Conditions/Prognosis: Stable, medically appropriate for discharge Discharge to: Home Updated Allergies/ADRs: Allergies Allergen Reactions Simvastatin Tegretol [Carbamazepine] Immunizations Given this Hospitalization: There is no immunization history for the selected administration types on file for this patient. Discharge Medications: Your Medications New Medications Dose Details * oxyCODONE 5 mg tablet Commonly known as: Roxicodone Take 1 tablet by mouth every 4 hours as needed for Pain (moderate to severe pain 7-10) for up to 5 days. 5 mg Quantity: 20 tablet Refills: 0 * oxyCODONE CR 10 mg ER 12 hr tablet (CRUSH RESISTANT) Commonly known as: OxyCONTIN Take 1 tablet by mouth 2 times daily for 5 days. 10 mg Quantity: 10 tablet Refills: 0 * This list has 2 medication(s) that are the same as other medications prescribed for you. Read thedirections carefully, and ask your doctor or other care provider to review them with you. Continued medications, unchanged Dose Details aspirin EC 81 mg EC (DR) tablet Take 81 mg by mouth daily. 81 mg Refills: 0 atorvastatin 20 mg tablet Commonly known as: Lipitor Take 20 mg by mouth daily. 20 mg Refills: 0 Breztri Aerosphere 160-9-4.8 mcg/actuation inhaler (HFA) Inhale 2 puffs into the lungs 2 times daily. Generic drug: vealykbahq-qgeaxlbxyvcuwo-nyarihuifv 2 puff Refills: 0 citalopram 20 mg tablet Commonly known as: CeleXA Take 20 mg by mouth daily. 20 mg Refills: 0 docusate sodium 100 mg capsule Commonly known as: Colace Take 1 capsule by mouth 2 times daily. 1 capsule Refills: 0 escitalopram 20 mg tablet Commonly known as: Lexapro Take 1 tablet by mouth Daily at Noon. 1 tablet Refills: 0 fluticasone propionate 50 mcg/actuation nasal spray, suspension Commonly known as: Flonase 1 spray daily. 1 spray Refills: 0 ipratropium-albuteroL 0.5 mg-3 mg(2.5 mg base)/3 mL Solution for Nebulization Commonly known as: Duoneb Take 3 mLs by nebulization every 4 hours as needed. 3 mL Refills: 0 LAMICTAL ORAL Take 50 mg by mouth 2 times daily. 50 mg Refills: 0 lisinopriL 10 mg tablet Commonly known as: Zestril Take 10 mg by mouth daily. 10 mg Refills: 0 loratadine 10 mg Tablet Commonly known as: Claritin Take 10 mg by mouth daily. 10 mg Refills: 0 meloxicam 15 mg tablet Commonly known as: Mobic Take 15 mg by mouth daily. 15 mg Refills: 0 multivitamin Fevx-Fo-FC-Min 27-0.4 mg Tablet Commonly known as: Therapeutic-M Take 1 tablet by mouth daily. 1 tablet Refills: 0 multivitamin with minerals Tablet Commonly known as: One-A-Day Take 1 tablet by mouth Daily @ 0600. 1 tablet Refills: [address] capsule Commonly known as: PriLOSEC Take 20 mg by mouth daily. 20 mg Refills: 0 oxyCODONE-acetaminophen 5-325 mg tablet Commonly known as: Percocet Take 1 tablet by mouth every 8 hours as needed. 1 tablet Refills: 0 polyethylene glycoL 17 gram/dose Powder Commonly known as: Miralax Take 17 g by mouth daily. 17 g Refills: 0 ProAir HFA 90 mcg/actuation inhaler (HFA) Inhale 2 puffs into the lungs every 4 hours as needed for Wheezing. Use with spacer Generic drug: albuteroL 2 puff Refills: 0 QUEtiapine 50 mg tablet Commonly known as: Seroquel Take 50 mg by mouth 2 times daily. 50 mg Refills: 0 Senexon-S 8.6-50 mg Tablet Take 2 tablets by mouth daily. Generic drug: senna-docusate 2 tablet Refills: 0 Spiriva with HandiHaler 18 mcg inhalation capsule with device Inhale 18 mcg into the lungs daily. Generic drug: tiotropium 18 mcg Refills: 0 SYMBICORT INHL Inhale into the lungs. Refills: 0 traZODone 100 mg tablet Commonly known as: Desyrel Take 100 mg by mouth nightly. 100 mg Refills: 0 Vitamins B Complex Tablet Take 1 tablet by mouth Daily at Noon. Generic drug: b complex vitamins 1 tablet Refills: 0 STOPPED Medications clopidogreL 75 mg tablet Commonly known as: Plavix Smoking Status at Discharge: Social History Tobacco Use Smoking Status Former Current packs/day: 0.25 Types: Cigarettes Smokeless Tobacco Never Tobacco Comments Quit 4 months ago per pt. Instructions Given to Patient at Discharge: Patient Instructions Instructions following Bladder Biopsy or Resection Call your doctor for: Fevers greater than 101.3F Severe nausea or vomiting Increasing pain not controlled by pain medications Copious blood in your urine Severe back or side pain Inability to urinate or Ferris catheter stops draining before 5 PM weekdays for urgent concerns after 5 PM and weekends. Ask for the on-call Urology resident Activity: As tolerated by your comfort level. Urination: - You will likely have blood in your urine for the next several days, up to 10- 14 days. This is normal. - If you are passing large amounts of blood clots, persistent bright red blood, or unable to urinate, please call our office at [phone] before 5PM or [phone] after hours or go to your localEmergency Department BLADDER - URINARY CATHETER APPOINTMENT: Voiding trial has been scheduled on 08/07 at 1:30pm A urinary catheter is a flexible plastic tube used to drain urine from your bladder when you cannoturinate on your own. The catheter allows urine to drain from the bladder into a bag. The bag is usually attached to the thigh. You may need a catheter because you have a medical condition (such as an enlarged prostate) that makes it hard to urinate. Or you may need one if you are not able to control the release of urine or if lyou have had surgery on the pelvis or urinary tract. These catheters are also used when the lowerpart of the body is paralyzed. Catheter care Always wash your hands before and after you handle your catheter. Make sure that urine is flowing out of the catheter into the urine collection bag. Make sure that the catheter tubing does not get twisted or kinked. Keep the urine collection bag below the level of your bladder. Make sure that the urine collection bag does not drag and pull on the catheter. Unless you have been told not to , it isokay to shower with your catheter and urine collection bag in place. Check for inflammation or signs of infection in the area around the catheter. Signs of infection include irritated, swollen, red, or tender skin. You may see pus around the catheter. Clean the skin around the catheter twice a day using soap and water. Dry with a clean towel afterward. Do not apply powder or lotion to the skin around the catheter. Do not tug or pull on the catheter. Do not have sexual intercourse while wearing a catheter. At night you may wish to hang the urine collection bag on the side of your bed. To empty the urine collection bag Wash your hands with soap and water. If your doctor has asked you to keep a record, measure the amount of urine in the bag before you empty it. Remove the drain spout from its sleeve at the bottom ofthe collection bag. Open the valve on the spout. Let the urine flow out of the bag and into the toilet or container. Do net let the tubing or drain spout touch anything. After you empty the bag, wipeoff any liquid on the end of the drain spout. Close the valve. Then put the drain spout back into its sleeve at the bottom of the collection bag. Wash your hands with soap and water. When should you call for help? Call your doctor now or seek immediate medical care if: You have symptoms of urinary infection. For example: You have blood or pus in your urine. You have pain in your back just below your rib cage. This is called flank pain. You have a fever, chills or body aches. You have groin or belly pain. Your urine smells bad. You see large blood clots in your urine No urine or very little urine is flowing into the bag for 4 or more hours. Watch closely for changes in your health and be sure to contact your doctor if: The area around the catheter becomes irritated, swollen, red, tender or has pus draining from it. Urine is leaking from the place where the catheter enters your body. Pain & Medications: - Drink 2 liters (64oz) water daily to dilute the urine. - You may take acetaminophen (Tylenol) up to 1000mg every 6 hours and/or ibuprofen (Motrin, Advil, or generic) up to 600mg every 8 hours (unless you have been advised not to take ibuprofen or other NSAIDs) - We recommend alternating acetaminophen and ibuprofen so that you are taking one every 3 hours. For example, acetaminophen at 12pm, ibuprofen 3pm, acetaminophen 6pm, ibuprofen 9pm, etc. - Do not exceed 4000mg acetaminophen in 24 hours. Do not exceed 3200mg ibuprofen in 24 hours. - Anticoagulation: Continue taking aspirin 81mg daily. Discuss Plavix with your PCP before taking it as it will likely cause more blood in your urine - The [facility] palliative care team has recommended opioid pain medication to be prescribe. You have been prescribed OxyContin 10mg twice daily, and oxycodone 5mg every 4 hours as needed for breakthroughpain. We will send you on a 4-5 day prescription of this medication and your [facility] palliative care team will fill/change all future refills. Follow-up: - An appointment has been scheduled as below. Please call [phone] (clinic number for appointments) to confirm date and time of your appointment if you do not receive your apointment in 1 week. - You will receive a phone call from your surgeon with a discussion of pathology results within 7-10 days of surgery. We will not have pathology results earlier than at least 7 days post-operatively.If you have not heard by 10 days post-op, please call our office. Future Appointments Date Time [facility] 08/07/2024 1:30 PM UROLOGY, NURSE [facility] 08/07/2024 3:30 PM UROLOGY, NURSE [facility] You have been scheduled an appointment with your [facility] Palliative Care team with Dr. Bethany Byrd. You appointment in on Sunday 08/05 at 10:20 am. You should call your PCP and receive a follow up appointment within 1-2 weeks to discuss your hospitalization and medical changes. Discuss the wedge shaped plaque found on your right lung on the CT scan w/ your PCP for possible monitoring/future workup. Discuss anticoagulants w/ your PCP. You received aspirin 81mg in the hospital, but we did not give you Plavix. Please take your medication exactly as prescribed. Read all instructions that come with your medication. Using narcotic pain medication (such as oxycodone, OxyContin, hydromorphone (Dilaudid), morphine, fentanyl, or tramadol) may cause addiction. While addiction is more common in people with a personal or family history of addiction, it can occur in anyone. Taking more than the prescribed amount of medication or using with alcohol or other drugs can causeyou to stop breathing resulting in coma, brain damage, or . Opioids (oxycodone, hydromorphone/Dilaudid, OxyContin, morphine, fentanyl, tramadol) can slow reaction time, cause drowsiness, or cloud judgement. It is unsafe for you to drive or operate heavy machinery while taking this medication. Opioids (oxycodone, hydromorphone/Dilaudid, OxyContin, morphine, fentanyl, tramadol) are at risk ofbeing diverted by anyone with access to your home. Opioids should be stored in a safe and secure place, such as a locked cabinet or safe. Unused opioids (oxycodone, hydromorphone/Dilaudid, morphine, fentanyl, tramadol) should be disposedof according to the label or patient information. If there are no specific instructions, medications may be returned to a take-back location or mixed with a small amount of water and an undesirable waste substance such as coffee grounds or cat litter. General Instructions [facility] Vascular and Interventional Radiology Discharge Instructions for Percutaneous Nephrostomy Tube (PCN) or Nephroureterostomy Tube (NU) You have had a PCN tube or NU tube placed because you have a blockage of urine flow between your kidney and bladder. These tubes will allow urine to drain from your kidney outside into a bag or inside into your bladder. If your tube is connected to a drainage bag it is important to empty it regularly. The PCN tube is a thin catheter placed into your kidney to drain urine. You may have one tube in a kidney or two tubes, one in each kidney. The urine collects in a bag attached to the tube. In most cases, the bag is attached to your leg. Sometimes the catheter tube has a valve that lets you drain the urine into the toilet or other container. You may need a PCN tube if you have a blockage or a hole in your urinary tract. The blockage may becaused by a kidney stone, infection, scar tissue, or a tumor. If you have only one tube, you still need to urinate. Your other kidney will still produce urine that will drain into your bladder. Having a nephrostomy tube in for a long time increases the risk of getting an infection. Nephrostomy tube care focuses on preventing infection. The (NU tube) is a one piece catheter that goes from your kidney via the ureter into the bladder. How can you care for yourself at home? Wash your hands before you handle the tubes. Clean the area around the tube with soap and water weekly. You may shower after 1 week without a bandage. You may remove the bag and connecting tubing from the drain. Put a shared services manager on both the drain and the bag. You can shower with the bag off. Clean around the tube with soap and water. Pat dry. You can clean the bag after removing it from the tube. Use another container to collect your urine while you clean the bag. To clean the bag, fill it with 2 parts vinegar to 3 parts water, and let itstand for 20 minutes. Then empty it out, and let it air dry. Keep the drainage bag lower than your kidney to keep urine from backing up. Empty the drainage bag before it is completely full or every 2 to 3 hours. Do not swim or take baths while you have a nephrostomy tube. Change the dressing around the nephrostomy tube about every 3 days or when it gets wet or dirty. A nurse will teach you how to change it. Activity: You may be sore for several days after the tube is inserted. This may limit your activity. You should be careful to avoid activity that causes a pulling sensation, pain or kinking of the tube. When to call your healthcare provider: There may be a little blood in the urine after the tube is placed or changed. Contact your healthcare provider if the bleeding doesn???t stop in a couple of days or if the drainage becomes bright red. If urine or blood leaks around the tube, or poor drainage into the bag If the tube stops draining urine (if attached to a bag system) If skin around the tube is red or irritated or if you see any swelling or drainage around the tube. If you have shaking chills. If you have a fever equal to or greater than 101 degrees Fahrenheit (if these symptoms occur and your tube has been capped you should uncap it and connect to a drainage bag). If you have unusual pain in your flank or at the tube site. A faint urine smell is often present, but if the smell becomes strong call your healthcare provider. Decreased drainage into the bag. Tube Care: You may take a shower after 1 week. Dry the area well. Redress the drain afterwards. You may showerwith the old dressing in place and then replace after your shower. It may be easier to take a sponge bath. You may NOT take a tub bath or swim. It is important that you take care of your tube. It can be pulled out if it is caught on something.If you think the tube is partly pulled out or if it comes out completely, we can usually put it back in easily if you come to see us within 12-24 hours. It is important to keep the skin around the tube healthy. You should clean the area with soap and water a minimum of once per week. Replace the gauze dressing after you have cleaned and completely dried the skin. It is ok to change the dressing at anytime if it gets soiled. We will schedule regular tube changes for you to avoid the tube becoming blocked. You will receive these follow-up appointments in the mail (usually every 3 months). When to call the Interventional Radiology Department: Please call with any questions or concerns. If it is during regular office hours, please call [phone]. If it is after regular office hours, or on weekends or holidays, please call [phone] and ask to speak to the Safe Deposit Box Rental Clerk solution director for Interventional Radiology. You have received medication during your procedure to help lessen anxiety and keep you comfortable.These medications affect judgement and reaction time. We recommend that you do not drive, operate equipment, sign any important documents, or smoke unattended for 24 hours following your procedure. Because of the sedation, be careful on stairs, as you may be unsteady on your feet. You may resume your regular diet as tolerated. IV site -- slight redness, or tenderness is normal, you can use a warm compress. If tenderness and redness increases or foul drainage occurs, please contact your M. D. Revised 07/03/19 Future Appointments and Orders Future Appointments and Orders Future Appointments Provider Department Dept Phone 08/07/2024 1:30 PM UROLOGY, NURSE Urology at [facility] Arrive at: Stock Room Manager Area [phone] 08/07/2024 3:30 PM UROLOGY, NURSE Urology at [facility] Arrive at: Stock Room Manager Area [phone] Future Orders Complete By Expires IR Nephrostomy Tube Exchange Left [[id number] Custom] 10/30/2024 11/27/2024 Process Instructions: Scheduling Instructions: Questions: Where will study be performed?: [facility] Radiology To be scheduled: Next available after expected date Reason for exam and clinical history: Left ureteral malignant obstruction, probable invasive bladder tumor with left hydronephrosis and flank pain, left ureteral orifice not visualized. Left 10 Spanish PCN placed 07/30/2024 Exam/Procedure requested: What labs need to be collected during imaging study?: Is the patient on anticoagulant / antiplatelet therapy ?: No Does patient require sedation?: None Sedation rationale: Referral to Radiation Oncology [REF95 Custom] As directed Process Instructions: If no progress note charted, please enter Clinical details in comments. Scheduling Instructions: Questions: My question or request is: Palliative radiation for locally advanced bladder cancer Follow-Up: Future Appointments Date Time Provider Department Center 08/07/2024 1:30 PM UROLOGY, NURSE [facility] 08/07/2024 3:30 PM UROLOGY, NURSE [facility] Primary Care Provider: Cintia Jones APRN [phone] Follow-up Recommendations for Providers: See lung CT findings above regarding wedge shaped plaque in right lung upper lobe. Assess and possible further outpatient workup. In setting of previous [place] patient was on Plavix, but this was held as an inpatient and transitions to 81mg ASA daily, but recommend following up with need for potential Plavix use. Unexpected Findings: Wedge shaped plaque right upper lobe of lung. Call your doctor if: Please call your doctor immediately or go to an Emergency Department if you notice worsening pain not controlled by pain medications, uncontrolled headache, vision changes, chest pain, difficulty breathing, persistent nausea and vomiting, new redness or swelling in any extremities, new onset weakness or changes in sensation, or for any fevers greater than 101.3 F. Your care was managed by the Urology Team at [facility]. If you have any questions or concerns, please feel free to contact us. Provider Contact Information: Urology Clinic: [facility] (after business hours): Time spent on discharge plannin minutes DIANA Sevilla 08/01/2024 documented in this encounter Discharge Instructions * Discharge Instructions* Juli Howe RN - 07/30/2024 12:47 PM EST Images from the original note were not included. [facility] Vascular and Interventional Radiology Discharge Instructions for Percutaneous Nephrostomy Tube (PCN) or Nephroureterostomy Tube (NU) You have had a PCN tube or NU tube placed because you have a blockage of urine flow between your kidney and bladder. These tubes will allow urine to drain from your kidney outside into a bag or inside into your bladder. If your tube is connected to a drainage bag it is important to empty it regularly. The PCN tube is a thin catheter placed into your kidney to drain urine. You may have one tube in a kidney or two tubes, one in each kidney. The urine collects in a bag attached to the tube. In most cases, the bag is attached to your leg. Sometimes the catheter tube has a valve that lets you drain the urine into the toilet or other container. You may need a PCN tube if you have a blockage or a hole in your urinary tract. The blockage may becaused by a kidney stone, infection, scar tissue, or a tumor. If you have only one tube, you still need to urinate. Your other kidney will still produce urine that will drain into your bladder. Having a nephrostomy tube in for a long time increases the risk of getting an infection. Nephrostomy tube care focuses on preventing infection. The (NU tube) is a one piece catheter that goes from your kidney via the ureter into the bladder. How can you care for yourself at home? Wash your hands before you handle the tubes. Clean the area around the tube with soap and water weekly. You may shower after 1 week without a bandage. You may remove the bag and connecting tubing from the drain. Put a shared services manager on both the drain and the bag. You can shower with the bag off. Clean around the tube with soap and water. Pat dry. You can clean the bag after removing it from the tube. Use another container to collect your urine while you clean the bag. To clean the bag, fill it with 2 parts vinegar to 3 parts water, and let itstand for 20 minutes. Then empty it out, and let it air dry. Keep the drainage bag lower than your kidney to keep urine from backing up. Empty the drainage bag before it is completely full or every 2 to 3 hours. Do not swim or take baths while you have a nephrostomy tube. Change the dressing around the nephrostomy tube about every 3 days or when it gets wet or dirty. A nurse will teach you how to change it. Activity: You may be sore for several days after the tube is inserted. This may limit your activity. You should be careful to avoid activity that causes a pulling sensation, pain or kinking of the tube. When to call your healthcare provider: There may be a little blood in the urine after the tube is placed or changed. Contact your healthcare provider if the bleeding doesn???t stop in a couple of days or if the drainage becomes bright red. If urine or blood leaks around the tube, or poor drainage into the bag If the tube stops draining urine (if attached to a bag system) If skin around the tube is red or irritated or if you see any swelling or drainage around the tube. If you have shaking chills. If you have a fever equal to or greater than 101 degrees Fahrenheit (if these symptoms occur and your tube has been capped you should uncap it and connect to a drainage bag). If you have unusual pain in your flank or at the tube site. A faint urine smell is often present, but if the smell becomes strong call your healthcare provider. Decreased drainage into the bag. Tube Care: You may take a shower after 1 week. Dry the area well. Redress the drain afterwards. You may showerwith the old dressing in place and then replace after your shower. It may be easier to take a sponge bath. You may NOT take a tub bath or swim. It is important that you take care of your tube. It can be pulled out if it is caught on something.If you think the tube is partly pulled out or if it comes out completely, we can usually put it back in easily if you come to see us within 12-24 hours. It is important to keep the skin around the tube healthy. You should clean the area with soap and water a minimum of once per week. Replace the gauze dressing after you have cleaned and completely dried the skin. It is ok to change the dressing at anytime if it gets soiled. We will schedule regular tube changes for you to avoid the tube becoming blocked. You will receive these follow-up appointments in the mail (usually every 3 months). When to call the Interventional Radiology Department: Please call with any questions or concerns. If it is during regular office hours, please call [phone]. If it is after regular office hours, or on weekends or holidays, please call [phone] and ask to speak to the Safe Deposit Box Rental Clerk solution director for Interventional Radiology. You have received medication during your procedure to help lessen anxiety and keep you comfortable.These medications affect judgement and reaction time. We recommend that you do not drive, operate equipment, sign any important documents, or smoke unattended for 24 hours following your procedure. Because of the sedation, be careful on stairs, as you may be unsteady on your feet. You may resume your regular diet as tolerated. IV site -- slight redness, or tenderness is normal, you can use a warm compress. If tenderness and redness increases or foul drainage occurs, please contact your M. D. Revised 07/03/19 * Patient Instructions* Sujatha Marin MD - 07/31/2024 7:28 AM EST Instructions following Bladder Biopsy or Resection Call your doctor for: Fevers greater than 101.3F Severe nausea or vomiting Increasing pain not controlled by pain medications Copious blood in your urine Severe back or side pain Inability to urinate or Ferris catheter stops draining before 5 PM weekdays for urgent concerns after 5 PM and weekends. Ask for the on-call Urology resident Activity: As tolerated by your comfort level. Urination: - You will likely have blood in your urine for the next several days, up to 10- 14 days. This is normal. - If you are passing large amounts of blood clots, persistent bright red blood, or unable to urinate, please call our office at [phone] before 5PM or [phone] after hours or go to your localEmergency Department BLADDER - URINARY CATHETER APPOINTMENT: Voiding trial has been scheduled on 08/07 at 1:30pm A urinary catheter is a flexible plastic tube used to drain urine from your bladder when you cannoturinate on your own. The catheter allows urine to drain from the bladder into a bag. The bag is usually attached to the thigh. You may need a catheter because you have a medical condition (such as an enlarged prostate) that makes it hard to urinate. Or you may need one if you are not able to control the release of urine or if lyou have had surgery on the pelvis or urinary tract. These catheters are also used when the lowerpart of the body is paralyzed. Catheter care Always wash your hands before and after you handle your catheter. Make sure that urine is flowing out of the catheter into the urine collection bag. Make sure that the catheter tubing does not get twisted or kinked. Keep the urine collection bag below the level of your bladder. Make sure that the urine collection bag does not drag and pull on the catheter. Unless you have been told not to , it isokay to shower with your catheter and urine collection bag in place. Check for inflammation or signs of infection in the area around the catheter. Signs of infection include irritated, swollen, red, or tender skin. You may see pus around the catheter. Clean the skin around the catheter twice a day using soap and water. Dry with a clean towel afterward. Do not apply powder or lotion to the skin around the catheter. Do not tug or pull on the catheter. Do not have sexual intercourse while wearing a catheter. At night you may wish to hang the urine collection bag on the side of your bed. To empty the urine collection bag Wash your hands with soap and water. If your doctor has asked you to keep a record, measure the amount of urine in the bag before you empty it. Remove the drain spout from its sleeve at the bottom ofthe collection bag. Open the valve on the spout. Let the urine flow out of the bag and into the toilet or container. Do net let the tubing or drain spout touch anything. After you empty the bag, wipeoff any liquid on the end of the drain spout. Close the valve. Then put the drain spout back into its sleeve at the bottom of the collection bag. Wash your hands with soap and water. When should you call for help? Call your doctor now or seek immediate medical care if: You have symptoms of urinary infection. For example: You have blood or pus in your urine. You have pain in your back just below your rib cage. This is called flank pain. You have a fever, chills or body aches. You have groin or belly pain. Your urine smells bad. You see large blood clots in your urine No urine or very little urine is flowing into the bag for 4 or more hours. Watch closely for changes in your health and be sure to contact your doctor if: The area around the catheter becomes irritated, swollen, red, tender or has pus draining from it. Urine is leaking from the place where the catheter enters your body. Pain & Medications: - Drink 2 liters (64oz) water daily to dilute the urine. - You may take acetaminophen (Tylenol) up to 1000mg every 6 hours and/or ibuprofen (Motrin, Advil, or generic) up to 600mg every 8 hours (unless you have been advised not to take ibuprofen or other NSAIDs) - We recommend alternating acetaminophen and ibuprofen so that you are taking one every 3 hours. For example, acetaminophen at 12pm, ibuprofen 3pm, acetaminophen 6pm, ibuprofen 9pm, etc. - Do not exceed 4000mg acetaminophen in 24 hours. Do not exceed 3200mg ibuprofen in 24 hours. - Anticoagulation: Continue taking aspirin 81mg daily. Discuss Plavix with your PCP before taking it as it will likely cause more blood in your urine - The [facility] palliative care team has recommended opioid pain medication to be prescribe. You have been prescribed OxyContin 10mg twice daily, and oxycodone 5mg every 4 hours as needed for breakthroughpain. We will send you on a 4-5 day prescription of this medication and your [facility] palliative care team will fill/change all future refills. Follow-up: - An appointment has been scheduled as below. Please call [phone] (clinic number for appointments) to confirm date and time of your appointment if you do not receive your apointment in 1 week. - You will receive a phone call from your surgeon with a discussion of pathology results within 7-10 days of surgery. We will not have pathology results earlier than at least 7 days post-operatively.If you have not heard by 10 days post-op, please call our office. Future Appointments Date Time Provider Department Center 08/07/2024 1:30 PM UROLOGY, NURSE [facility] 08/07/2024 3:30 PM UROLOGY, NURSE [facility] You have been scheduled an appointment with your [facility] Palliative Care team with Dr. Bethany Byrd. You appointment in on Sunday 08/05 at 10:20 am. You should call your PCP and receive a follow up appointment within 1-2 weeks to discuss your hospitalization and medical changes. Discuss the wedge shaped plaque found on your right lung on the CT scan w/ your PCP for possible monitoring/future workup. Discuss anticoagulants w/ your PCP. You received aspirin 81mg in the hospital, but we did not give you Plavix. Please take your medication exactly as prescribed. Read all instructions that come with your medication. Using narcotic pain medication (such as oxycodone, OxyContin, hydromorphone (Dilaudid), morphine, fentanyl, or tramadol) may cause addiction. While addiction is more common in people with a personal or family history of addiction, it can occur in anyone. Taking more than the prescribed amount of medication or using with alcohol or other drugs can causeyou to stop breathing resulting in coma, brain damage, or . Opioids (oxycodone, hydromorphone/Dilaudid, OxyContin, morphine, fentanyl, tramadol) can slow reaction time, cause drowsiness, or cloud judgement. It is unsafe for you to drive or operate heavy machinery while taking this medication. Opioids (oxycodone, hydromorphone/Dilaudid, OxyContin, morphine, fentanyl, tramadol) are at risk ofbeing diverted by anyone with access to your home. Opioids should be stored in a safe and secure place, such as a locked cabinet or safe. Unused opioids (oxycodone, hydromorphone/Dilaudid, morphine, fentanyl, tramadol) should be disposedof according to the label or patient information. If there are no specific instructions, medications may be returned to a take-back location or mixed with a small amount of water and an undesirable waste substance such as coffee grounds or cat litter. * Attachments The following attachments cannot be sent through Care Everywhere. * Indwelling Urinary Catheter Care: General Info (Ecuadorean) documented in this encounter Medications at Time of Discharge Medication Sig Dispensed Refills Start Date End Date oxyCODONE (Roxicodone) 5 mg tablet Take 1 tablet by mouth every 4 hours as needed for Pain (moderate to severe pain 7-10) for up to 5 days. 20 tablet 08/01/2024 08/06/2024 oxyCODONE CR (OxyCONTIN) 10 mg ER 12 hr tablet (CRUSH RESISTANT) Take 1 tablet by mouth 2 times daily for 5 days. 10 tablet 08/01/2024 08/06/2024 Breztri Aerosphere 160-9-4.8 mcg/actuation inhaler (HFA) Inhale 2 puffs into the lungs 2 times daily. 05/12/2024 docusate sodium (Colace) 100 mg capsule Take 1 capsule by mouth 2 times daily. 03/18/2024 escitalopram (Lexapro) 20 mg tablet Take 1 tablet by mouth Daily at Noon. 05/12/2024 multivitamin with minerals (One-A-Day) Tablet Take 1 tablet by mouth Daily @ 0600. 01/23/2014 oxyCODONE-acetaminophe n (Percocet) 5-325 mg tablet Take 1 tablet by mouth every 8 hours as needed. 05/04/2024 polyethylene glycoL (Miralax) 17 gram/dose Powder Take 17 g by mouth daily. 04/17/2024 Senexon-S 8.6-50 mg Tablet Take 2 tablets by mouth daily. 04/16/2024 Vitamins B Complex Tablet Take 1 tablet by mouth Daily at Noon. 03/18/2024 budesonide/formoterol fumarate (SYMBICORT INHL) Inhale into the [...] mouth daily. fluticasone propionate (FLONASE) 50 mcg/actuation [place], Suspension 1 spray daily. lisinopril (PRINIVIL;ZESTRIL) 10 mg Tablet Take 10 mg by mouth daily. aspirin 81 mg Tablet, Delayed Release (E.C.) Take 81 mg by mouth daily. omeprazole (PRILOSEC) 20 mg Capsule, Delayed Release(E.C.) Take 20 mg by mouth daily. traZODone (DESYREL) 100 mg Tablet Take 100 mg by mouth nightly. multivitamin Ovqh-Wr-ZI-Min (THERAPEUTIC-M) 27-0.4 mg Tablet Take 1 tablet [...] lungs daily. documented as of this encounter Progress Notes * Tiara Joseph MSW - 08/02/2024 8:57 AM EST SOCIAL WORK NOTE SW met with Pt at request of nursing for ride support. SW introduced self, role; services accepted. Patient will be discharged and is in need of a ride home. Called [facility] [place] Medicaid Volunteer Rides to request a ride home. [facility] has arranged for a refuse driver to pick the patient up at Entrance 2 at 1:00pm. The volunteer refuse driver is Sharan and he will have a [employer]. Providers updates. Tiara Joseph [facility] Office of Case Management-Solar Sales Rep Clinical Solar Sales Rep ED CDU SDP , Pager [phone] * Sujatha Marin MD - 08/01/2024 4:48 PM EST Urology Inpatient Progress Note Patient Name: Jimenez Marin Patient Age: 69 y.o. Birthdate: 1955 Admit date: 07/29/2024 Attending Physician: Umu Frye MD ID: Jimenez Marin is a 69 y.o. male, w/ PMHx of COPD, NV s/p stents, recent smoker, chronic CP/SOBon home O2 5L, LOS: 3 days 3 Days Post-Op from a large TURBT that was complicated by a very large, necrotic, muscle invasive mass requiring extensive resection. Following the OR the patient will require staging CT and palliative consult. 24hr events: Generalized abdominal pain NAEO Ambulating at baseline mobility Tolerating diet (-)N/(-)V L PCN with light red urine Ferris draining CYU to gravity. O: Last value Range last 24hrs Temperature Temp: 36.5 ??C (97.7 ??F) Temp: [36.3 ??C (97.3 ??F)-36.7 ??C (98.1 ??F)] Heart Rate Heart Rate: 88 Heart Rate: -- Blood Pressure BP: 142/70 BP: (118-149)/(61-73) Respiratory Rate Resp: 16 Resp: [15-20] SpO2 SpO2: 98 % SpO2: [93 %-98 %] 07/31 0701 - 08/01 0700 In: - Out: 2850 [Urine:2850] Physical Exam: General: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 Note Patient Name: Jimenez Marin Patient Age: 69 y.o. Birthdate: 1955 Admit date: 07/29/2024 Attending Physician: Umu Frye MD ID: Jimenez Marin is a 69 y.o. male, w/ PMHx of COPD, NV s/p stents, recent smoker, chronic CP/SOBon home O2 5L, LOS: 2 days 2 Days Post-Op from a large TURBT that was complicated by a very large, necrotic, muscle invasive mass requiring extensive resection. Following the OR the patient will require staging CT and palliative consult. 24hr events: Staging CT Palliative and SW consult LPCN placed Generalized abdominal pain Tolerating diet Not ambulating yet Ferris draining CYU to gravity. O: Last value Range last 24hrs Temperature Temp: 36.7 ??C (98.1 ??F) Temp: [36.6 ??C (97.9 ??F)-36.8 ??C (98.2 ??F)] Heart Rate Heart Rate: 88 Heart Rate: -- Blood Pressure BP: 110/58 BP: (108-140)/(58-75) Respiratory Rate Resp: 16 Resp: [16-18] SpO2 SpO2: 93 % SpO2: [93 %-95 %] 07/30 0701 - 07/31 0700 In: 0 Out: 1775 [Urine:1775] Physical Exam: General: NAD CVS: non tachycardic Pulm: normal resp effort on RA Abd: soft, appropriately tender, non-distended. : Ferris draining CYU Neuro/Psych: Alert. Appropriate mood. Labs: Recent Results (from the past 72 hour(s)) CBC (with Diff) Result Value Ref Range White Blood Cell 14.60 (H) 4.00 - 9.50 x10(3)/mcL Red Blood Cell 4.30 (L) 4.58 - 5.54 x10(6)/mcL Hemoglobin 12.7 (L) 13.7 - 16.5 g/dL Hematocrit 39.3 (L) 40.5 - 48.5 % Mean Cell Volume 91.4 82.9 - 93.1 fL Mean Cell Hemoglobin 29.5 27.5 - 32.1 pg Mean Cell Hemoglobin Concentration 32.3 32.0 - 35.7 g/dL Platelet 419 (H) 145 - 357 x10(3)/mcL Mean Platelet Volume 9.0 7.6 - 12.9 fL RDW Standard Deviation 51.8 (H) 36.0 - 45.0 fL RDW coefficient of variation 15.6 (H) 11.4 - 13.8 % NRBC% auto 0.0 % NRBC Absolute <0.01 <0.01 x10(3)/mcL Neutrophil % 83.0 % Neutrophil Absolute (ANC) - Automated 12.11 (H) 1.70 - 6.10 x10(3)/mcL Lymph % 6.2 % Lymph Absolute 0.91 0.90 - 3.20 x10(3)/mcL Monocyte % 8.7 % Monocyte Absolute 1.27 (H) 0.30 - 0.90 x10(3)/mcL Eos % 1.0 % Eos Absolute 0.15 0.00 - 0.40 x10(3)/mcL Basophil % 0.6 % Baso Absolute 0.09 0.00 - 0.10 x10(3)/mcL Immature Gran % 0.5 % Immature Gran Absolute 0.07 (H) 0.00 - 0.04 x10(3)/mcL Comprehensive metabolic panel Result Value Ref Range Glucose 137 (H) 65 - 99 mg/dL Blood Urea Nitrogen 16 10 - 20 mg/dL Creatinine 0.88 0.80 - 1.50 mg/dL Sodium 134 (L) 135 - 145 mMol/L Potassium 4.8 3.5 - 5.0 mMol/L Chloride 93 (L) 98 - 107 mMol/L Carbon Dioxide 29 22 - 31 mMol/L Anion Gap 12 5 - 15 mMol/L Calcium 9.9 8.5 - 10.5 mg/dL Protein, Total 7.6 6.1 - 8.0 g/dL Albumin 3.7 3.2 - 5.2 g/dL Aspartate Aminotransferase 19 <=39 unit/L Alanine Aminotransferase 20 0 - 55 unit/L Alkaline Phosphatase 85 40 - 130 unit/L Bilirubin, Total 0.4 <=1.3 mg/dL Est Glomerular Filtration Rate - Male 94 mL/min/1.73 m?? Fasting Status Yes EKG 12 Lead Result Value Ref Range Ventricular rate 79 BPM Atrial Rate 79 BPM P-R Interval 120 ms QRS Duration 92 ms Q-T Interval 400 ms QTC Calculated (Bezet) 458 ms Calculated P [place] 7 degrees Calculated R [place] 70 degrees Calculated T [place] 88 degrees INTERPRETATION Normal sinus rhythm T wave abnormality, consider lateral ischemia Abnormal ECG When compared with ECG of 15-JUN-2018 10:36, T wave inversion now evident in Anterolateral leads Confirmed by MD Staci, Kev ([id number]) on 07/29/2024 4:00:[address] Chest Abdomen Pelvis w Contrast (Generic) Result Value Ref Range WORKSTATION ID [id number] CBC (with Diff) Result Value Ref Range White Blood Cell 11.30 (H) 4.00 - 9.50 x10(3)/mcL Red Blood Cell 3.85 (L) 4.58 - 5.54 x10(6)/mcL Hemoglobin 11.5 (L) 13.7 - 16.5 g/dL Hematocrit 34.2 (L) 40.5 - 48.5 % Mean Cell Volume 88.8 82.9 - 93.1 fL Mean Cell Hemoglobin 29.9 27.5 - 32.1 pg Mean Cell Hemoglobin Concentration 33.6 32.0 - 35.7 g/dL Platelet 342 145 - 357 x10(3)/mcL Mean Platelet Volume 9.0 7.6 - 12.9 fL RDW Standard Deviation 49.6 (H) 36.0 - 45.0 fL RDW coefficient of variation 15.3 (H) 11.4 - 13.8 % NRBC% auto 0.0 % NRBC Absolute <0.01 <0.01 x10(3)/mcL Neutrophil % 78.6 % Neutrophil Absolute (ANC) - Automated 8.87 (H) 1.70 - 6.10 x10(3)/mcL Lymph % 8.9 % Lymph Absolute 1.01 0.90 - 3.20 x10(3)/mcL Monocyte % 8.9 % Monocyte Absolute 1.01 (H) 0.30 - 0.90 x10(3)/mcL Eos % 2.7 % Eos Absolute 0.30 0.00 - 0.40 x10(3)/mcL Basophil % 0.5 % Baso Absolute 0.06 0.00 - 0.10 x10(3)/mcL Immature Gran % 0.4 % Immature Gran Absolute 0.05 (H) 0.00 - 0.04 x10(3)/mcL Basic Metabolic Panel Result Value Ref Range Glucose 119 65 - 199 mg/dL Blood Urea Nitrogen 18 10 - 20 mg/dL Creatinine 0.82 0.80 - 1.50 mg/dL Sodium 134 (L) 135 - 145 mMol/L Potassium 4.2 3.5 - 5.0 mMol/L Chloride 95 (L) 98 - 107 mMol/L Carbon Dioxide 29 22 - 31 mMol/L Anion Gap 10 5 - 15 mMol/L Calcium 9.4 8.5 - 10.5 mg/dL Est Glomerular Filtration Rate - Male 96 mL/min/1.73 m?? Urine culture Specimen: Urine, Nephrostomy Result Value Ref Range Urine Culture No growth to date CBC (with Diff) Result Value Ref Range White Blood Cell 16.51 (H) 4.00 - 9.50 x10(3)/mcL Red Blood Cell 3.78 (L) 4.58 - 5.54 x10(6)/mcL Hemoglobin 11.0 (L) 13.7 - 16.5 g/dL Hematocrit 34.6 (L) 40.5 - 48.5 % Mean Cell Volume 91.5 82.9 - 93.1 fL Mean Cell Hemoglobin 29.1 27.5 - 32.1 pg Mean Cell Hemoglobin Concentration 31.8 (L) 32.0 - 35.7 g/dL Platelet 322 145 - 357 x10(3)/mcL Mean Platelet Volume 9.0 7.6 - 12.9 fL RDW Standard Deviation 51.8 (H) 36.0 - 45.0 fL RDW coefficient of variation 15.6 (H) 11.4 - 13.8 % NRBC% auto 0.0 % NRBC Absolute <0.01 <0.01 x10(3)/mcL Neutrophil % 83.4 % Neutrophil Absolute (ANC) - Automated 13.77 (H) 1.70 - 6.10 x10(3)/mcL Lymph % 6.1 % Lymph Absolute 1.00 0.90 - 3.20 x10(3)/mcL Monocyte % 8.2 % Monocyte Absolute 1.36 (H) 0.30 - 0.90 x10(3)/mcL Eos % 1.4 % Eos Absolute 0.23 0.00 - 0.40 x10(3)/mcL Basophil % 0.4 % Baso Absolute 0.07 0.00 - 0.10 x10(3)/mcL Immature Gran % 0.5 % Immature Gran Absolute 0.08 (H) 0.00 - 0.04 x10(3)/mcL Basic Metabolic Panel Result Value Ref Range Glucose 154 65 - 199 mg/dL Blood Urea Nitrogen 17 10 - 20 mg/dL Creatinine 1.02 0.80 - 1.50 mg/dL Sodium 135 135 - 145 mMol/L Potassium 4.6 3.5 - 5.0 mMol/L Chloride 97 (L) 98 - 107 mMol/L Carbon Dioxide 28 22 - 31 mMol/L Anion Gap 10 5 - 15 mMol/L Calcium 9.5 8.5 - 10.5 mg/dL Est Glomerular Filtration Rate - Male 80 mL/min/1.73 m?? Recent Labs 07/31/24 0506 07/30/24 0503 07/29/24 1120 WBC 16.51* 11.30* 14.60* HGB 11.0* 11.5* 12.7* HCT 34.6* 34.2* 39.3* PLATELET 322 342 419* Recent Labs 07/31/24 0506 07/30/24 0503 07/29/24 1120 NA 135 134* 134* K 4.6 4.2 4.8 CL 97* 95* 93* CO2 28 29 29 BUN 17 18 16 CREATININE 1.02 0.82 0.88 GLUCOSE 154 119 137* CALCIUM 9.5 9.4 9.9 Other Labs: Micro: No results for input(s): URINECULTURE in the last 720 hours. No results for input(s): BLOODCX in the last 720 hours. Imaging: Results for orders placed or performed during the hospital encounter of 07/29/24 CT Chest Abdomen Pelvis w Contrast (Generic) (Exam End: 07/30/2024 2:50 AM) Result Value WORKSTATION ID [id number] Impression 1. Although decompressed by Ferris catheter, there is asymmetric bladder wall thickening [...] in the care of this patient. If you are a health care provider and have any questions regarding this report, please contact the number below. For patients who have questions please contact the health day care aide that requested your imaging first. Electronically signed by: Demetrius Washington, [facility] ([phone]), at 07/30/2024 7:42 AM ASSESSMENT: Jimenez Marin w/PMHx of COPD, NV s/p stents, recent smoker, chronic CP/SOB on home O2 is a 69 y.o. male s/p a large TURBT that was complicated a muscle invasive mass requiring extensive resection. Patient is comorbid at baseline and his surgical resection was complicated by his advanced disease. Jimenez continues to have generalized abdominal pain following his surgery and has yet to ambulate. We are concerned about his prognosis and are following up with and palliative care. He has a palliative provider at an OSH for his COPD and [facility] palliative will attempt to reach out to him to coordinate transition of care. We will request an attending-attending with palliative care to better disucss his prognosis and needs prior to discharge. Additionally upon discharge he will benefit from palliative radiation and a consult was placed to [facility] for future care. He is severely comorbid and meets criteria for severe protein malnutrition, and will also require PT/OT consult to further assess his function status before discharge. PLAN: Neuro: - Analgesia: Acetaminophen, Oxycodone, Dilaudid PO, and Oxycodone 5/10 PRN. Home Citalopram,Lexapro, lamotrigine, quetiapine, and trazodone CV: - Hold Plavix. 81mg ASA. Home atorvastatin, lisinopril. PRN labetalol/hydralazine Pulm: - Encourage IS/OOB. Home Symbicort, duoneb and tiotropium. Albuterol PRN GI: - Diet: Regular diet. Bowel reg, Pantoprazole. Multivitamin FEN: - Electrolytes: Replete prn : - Ferris draining blood tinged urine. L PCN. VT in 7-10 days ID: - No indication for antibiotics at this time Heme: - No acute issues Consult: - SW, Palliative - appreciate ongoing recs PPX: - SCDs and Subcutaneous heparin Dispo: - Floor - Code: Attempt Cardiopulmonary Resuscitation - Inpatient Plan discussed with Dr. Frye, Urology attending. Sujatha Marin MD 07/31/2024 [id number] Associated attestation - Umu Frye MD - 07/31/2024 8:17 PM EST Attending Attestation and Certification Please see Sujatha Marin MD's note for details of the patient history of presentation and data.I have discussed, reviewed and agree with the documented History, Physical findings, Assessment andPlan of care. I have examined the patient myself and personally reviewed all studies. In addition, I certify thatI am a [facility] credentialed attending provider with admitting privileges and that the patient meets or has met medical necessity to require an inpatient IPI level of care meeting a minimum of two midnights or is on the [facility] inpatient only procedure list (status C) due to: post-operative care that cannotbe delivered as an outpatient; examples: pain only controlled with IV pain medication; frequent or complex wound care/dressing changes; NPO requiring IV fluid support. I also discussed the patient's care with the palliative care team. Based on my best judgement (pending path report), he has [id number] bladder cancer, I.e., locally advanced. Given his overall poor health, he is not a candidate for radical cystectomy. Given bulk of disease,he is not a candidate for bladder sparing trimodal therapy. Thus, goals of care are palliative. We referred him for consideration of palliative radiotherapy to [facility]. Given his poor overall health and extent of cancer, I believe his life expectancy is less than 1 year. Our palliative care connected with his palliative care physician in [facility] Who will provide follow-up. Anticipate patient will be ready for d/c to home tomorrow. Umu Frye MD, MS 07/31/2024 Urologic Oncology [facility], [place], [place] pastry sous chef (Urology) and of [facility], [facility] [employer] at [facility] * Gian Talbert RN - 07/31/2024 6:06 AM EST OUTCOME EVALUATION NOTE: OUTCOME SUMMARY: Patient A&Ox4, VSS on RA. Denies nausea/vomiting, CP, SOB. Pt reporting pain levels of 5-9, well controlled with PRN dilaudid and oxy. see MAR. Patient voiding to Ferris without difficulty . LBM 07/28. Dressing to neph tube site noted to be CDI. Patient resting between care. All concerns and questions at this time addressed, bed in lowest position, call light in reach. PLAN MOVING FORWARD: Pain control Mobilize D/C planning Monitor UOP Significant Shift Events: *N/A shift uneventful. Patient maintaining adequate UOP clear red urine without sediment, cloudiness or clots. INDIVIDUALIZED FALL PREVENTION INTERVENTIONS: Patient-specific fall risk factors per assessment: [current deficits]: Hospital environment, Pain, Medications Assistance [level of assistance required for transfers and ambulation]: 1A assist w/ walker Supervision [direct monitoring required during toileting and ADLs]: 1A with walker Surveillance [continuous indirect monitoring]: Hourly rounding, Masimo, Nursing knowledge exchange,Call moss within reach, Bed alarm * Delfina Rivera RN - 07/30/2024 2:41 PM EST Palliative Medicine Nurse Note NAME: Jimenez Marin DATE: 07/30/2024 ATTENDING: Umu Frye MD PCP: Cintia Jones APRN Hospital day: Hospital Day 1 day The Palliative Care Service is asked by Dr. Umu Frye MD to see this patient for: Symptom ManagementDecision Making: including discussion and assessment of goals of care, advance planning , etc.Coping with Serious Illness: also consider consultation to BIT and first aid officer if appropriate History of Present Illness: Jimenez Marin is a(n) 69 y.o. male from [facility] with newly diagnosed Muscle invasive bladder cancer, admitted for planned TURBT. History with Palliative Care: Chart review shows that he worked with Palliative Care MD in [facility], though he was not sure her name. Call to [facility], who confirms Jimenez has been seen by Dr. Byrd for several visits, most recent on 03/02. I requested those clinical notes, as well as any advanced directives that they may have on file. Clinical Notes received, sent to medical records for indexing. Advanced directive and COLST also received. Advanced directive does not appoint a DPOA-Healthcare, but indicates care preferences. These documents also sent to medical records for indexing. Plan of Care: -Full palliative Care consultation to follow Palliative Care Follow-up Plan: Medical team Nursing team Psychosocial Support Inpatient Full consultation to follow Outpatient Established with [facility] palliative care clinic, last visit 03/02 Delfina Rivera, RN Inpatient Nurse Clinician Palliative care team pager #[phone] * Sujatha Marin MD - 07/30/2024 1:59 PM EST Urology Inpatient Progress Note Patient Name: Jimenez Marin Patient Age: 69 y.o. Birthdate: 1955 Admit date: 07/29/2024 Attending Physician: Umu Frye MD ID: Jimenez Marin is a 69 y.o. male, w/ PMHx of COPD, NV s/p stents, recent smoker, chronic CP/SOBon home O2 5L, LOS: 1 day 1 Day Post-Op from a large TURBT that was complicated by a very large, necrotic, muscle invasive mass requiring extensive resection. Following the OR the patient will require staging CT and palliative consult. 24hr events: POC WNL Intermittently HTN magdiel-operatively, treated well with PRN labetalol Left flank pain, otherwise pain is well controlled. Tolerating diet overnight, no n/v. Not ambulating yet Ferris draining to gravity. O: Last value Range last 24hrs Temperature Temp: 37 ??C (98.6 ??F) Temp: [36.3 ??C (97.3 ??F)-37.1 ??C (98.8 ??F)] Heart Rate Heart Rate: 88 Heart Rate: [68-93] Blood Pressure BP: 147/88 BP: (91-198)/(45-118) Respiratory Rate Resp: 19 Resp: [14-25] SpO2 SpO2: 97 % SpO2: [90 %-100 %] 07/29 0701 - 07/30 0700 In: 640 [P.O.:240; I.V.:300] Out: 2135 [Urine:2125] Physical Exam: General: NAD CVS: non tachycardic Pulm: normal resp effort on RA Abd: soft, appropriately tender, non-distended. : Ferris draining red tinged urine Neuro/Psych: Alert. Appropriate mood. Labs: Recent Results (from the past 72 hour(s)) CBC (with Diff) Result Value Ref Range White Blood Cell 14.60 (H) 4.00 - 9.50 x10(3)/mcL Red Blood Cell 4.30 (L) 4.58 - 5.54 x10(6)/mcL Hemoglobin 12.7 (L) 13.7 - 16.5 g/dL Hematocrit 39.3 (L) 40.5 - 48.5 % Mean Cell Volume 91.4 82.9 - 93.1 fL Mean Cell Hemoglobin 29.5 27.5 - 32.1 pg Mean Cell Hemoglobin Concentration 32.3 32.0 - 35.7 g/dL Platelet 419 (H) 145 - 357 x10(3)/mcL Mean Platelet Volume 9.0 7.6 - 12.9 fL RDW Standard Deviation 51.8 (H) 36.0 - 45.0 fL RDW coefficient of variation 15.6 (H) 11.4 - 13.8 % NRBC% auto 0.0 % NRBC Absolute <0.01 <0.01 x10(3)/mcL Neutrophil % 83.0 % Neutrophil Absolute (ANC) - Automated 12.11 (H) 1.70 - 6.10 x10(3)/mcL Lymph % 6.2 % Lymph Absolute 0.91 0.90 - 3.20 x10(3)/mcL Monocyte % 8.7 % Monocyte Absolute 1.27 (H) 0.30 - 0.90 x10(3)/mcL Eos % 1.0 % Eos Absolute 0.15 0.00 - 0.40 x10(3)/mcL Basophil % 0.6 % Baso Absolute 0.09 0.00 - 0.10 x10(3)/mcL Immature Gran % 0.5 % Immature Gran Absolute 0.07 (H) 0.00 - 0.04 x10(3)/mcL Comprehensive metabolic panel Result Value Ref Range Glucose 137 (H) 65 - 99 mg/dL Blood Urea Nitrogen 16 10 - 20 mg/dL Creatinine 0.88 0.80 - 1.50 mg/dL Sodium 134 (L) 135 - 145 mMol/L Potassium 4.8 3.5 - 5.0 mMol/L Chloride 93 (L) 98 - 107 mMol/L Carbon Dioxide 29 22 - 31 mMol/L Anion Gap 12 5 - 15 mMol/L Calcium 9.9 8.5 - 10.5 mg/dL Protein, Total 7.6 6.1 - 8.0 g/dL Albumin 3.7 3.2 - 5.2 g/dL Aspartate Aminotransferase 19 <=39 unit/L Alanine Aminotransferase 20 0 - 55 unit/L Alkaline Phosphatase 85 40 - 130 unit/L Bilirubin, Total 0.4 <=1.3 mg/dL Est Glomerular Filtration Rate - Male 94 mL/min/1.73 m?? Fasting Status Yes EKG 12 Lead Result Value Ref Range Ventricular rate 79 BPM Atrial Rate 79 BPM P-R Interval 120 ms QRS Duration 92 ms Q-T Interval 400 ms QTC Calculated (Bezet) 458 ms Calculated P [place] 7 degrees Calculated R [place] 70 degrees Calculated T [place] 88 degrees INTERPRETATION Normal sinus rhythm T wave abnormality, consider lateral ischemia Abnormal ECG When compared with ECG of 15-JUN-2018 10:36, T wave inversion now evident in Anterolateral leads Confirmed by MD Staci, Kev ([id number]) on 07/29/2024 4:00:[address] Chest Abdomen Pelvis w Contrast (Generic) Result Value Ref Range WORKSTATION ID [id number] CBC (with Diff) Result Value Ref Range White Blood Cell 11.30 (H) 4.00 - 9.50 x10(3)/mcL Red Blood Cell 3.85 (L) 4.58 - 5.54 x10(6)/mcL Hemoglobin 11.5 (L) 13.7 - 16.5 g/dL Hematocrit 34.2 (L) 40.5 - 48.5 % Mean Cell Volume 88.8 82.9 - 93.1 fL Mean Cell Hemoglobin 29.9 27.5 - 32.1 pg Mean Cell Hemoglobin Concentration 33.6 32.0 - 35.7 g/dL Platelet 342 145 - 357 x10(3)/mcL Mean Platelet Volume 9.0 7.6 - 12.9 fL RDW Standard Deviation 49.6 (H) 36.0 - 45.0 fL RDW coefficient of variation 15.3 (H) 11.4 - 13.8 % NRBC% auto 0.0 % NRBC Absolute <0.01 <0.01 x10(3)/mcL Neutrophil % 78.6 % Neutrophil Absolute (ANC) - Automated 8.87 (H) 1.70 - 6.10 x10(3)/mcL Lymph % 8.9 % Lymph Absolute 1.01 0.90 - 3.20 x10(3)/mcL Monocyte % 8.9 % Monocyte Absolute 1.01 (H) 0.30 - 0.90 x10(3)/mcL Eos % 2.7 % Eos Absolute 0.30 0.00 - 0.40 x10(3)/mcL Basophil % 0.5 % Baso Absolute 0.06 0.00 - 0.10 x10(3)/mcL Immature Gran % 0.4 % Immature Gran Absolute 0.05 (H) 0.00 - 0.04 x10(3)/mcL Basic Metabolic Panel Result Value Ref Range Glucose 119 65 - 199 mg/dL Blood Urea Nitrogen 18 10 - 20 mg/dL Creatinine 0.82 0.80 - 1.50 mg/dL Sodium 134 (L) 135 - 145 mMol/L Potassium 4.2 3.5 - 5.0 mMol/L Chloride 95 (L) 98 - 107 mMol/L Carbon Dioxide 29 22 - 31 mMol/L Anion Gap 10 5 - 15 mMol/L Calcium 9.4 8.5 - 10.5 mg/dL Est Glomerular Filtration Rate - Male 96 mL/min/1.73 m?? Recent Labs 07/30/24 0503 07/29/24 1120 WBC 11.30* 14.60* HGB 11.5* 12.7* HCT 34.2* 39.3* PLATELET 342 419* Recent Labs 07/30/24 0503 07/29/24 1120 NA 134* 134* K 4.2 4.8 CL 95* 93* CO2 29 29 BUN 18 16 CREATININE 0.82 0.88 GLUCOSE 119 137* CALCIUM 9.4 9.9 Other Labs: Micro: No results for input(s): URINECULTURE in the last 720 hours. No results for input(s): BLOODCX in the last 720 hours. Imaging: Results for orders placed or performed during the hospital encounter of 07/29/24 CT Chest Abdomen Pelvis w Contrast (Generic) (Exam End: 07/30/2024 2:50 AM) Result Value WORKSTATION ID [id number] Impression 1. Although decompressed by Ferris catheter, there is asymmetric bladder wall thickening [...] in the care of this patient. If you are a health care provider and have any questions regarding this report, please contact the number below. For patients who have questions please contact the health day care aide that requested your imaging first. Electronically signed by: Demetrius Washington [facility] ([phone]), at 07/30/2024 7:42 AM ASSESSMENT: Jimenez Marin w/PMHx of COPD, NV s/p stents, recent smoker, chronic CP/SOB on home O2 is a 69 y.o. male s/p a large TURBT that was complicated a muscle invasive mass requiring extensive resection. Patient is comorbid at baseline and his surgical resection was complicated by his advanced disease. We are worried about the prognosis of his disease and will be looking to investigate his future treatment options today. While we plan on getting a staging CT, he will require a SW and palliative care consult. Additionally, his L flank pain in the setting of his advanced disease (Left UO not visualized intra-op, and malignant ureteral obstruction with hydronephrosis) in concerning and will require a left PCN to be placed today for ureteral drainage. He had a ferris placed in the OR and will needa follow in in -10 for a in office void trial with nursing. His post-operative HTN was transient and required only 1 dose of PRN labetalol, will restart home lisinopril. PLAN: Neuro: - Analgesia: Acetaminophen, Oxycodone, and Oxycodone 5/10 PRN. Home Citalopram, Lexapro, lamotrigine, quetiapine, and trazodone CV: - Hold Plavix. Start 81mg ASA after Left PCN placement. Home atorvastatin, lisinopril. PRN labetalol/hydralazine Pulm: - Encourage IS/OOB. Home Symbicort, duoneb and tiotropium. Albuterol PRN GI: - Diet: Regular diet after L PCN placement. Bowel reg, Pantoprazole. FEN: - Electrolytes: Replete prn : - Ferris draining blood tinged urine. CT scan for staging. VT in 7-10 days ID: - No indication for antibiotics at this time Heme: - No acute issues Consult: - SW, Palliative - appreciate recs PPX: - SCDs and Subcutaneous heparin Dispo: - Floor - Code: Attempt Cardiopulmonary Resuscitation - Inpatient Plan discussed with Dr. Frye, Urology attending. Sujatha Marin MD 07/30/2024 [id number] Associated attestation - Umu Frye MD - 07/30/2024 9:04 PM EST Attending Attestation and Certification Please see Sujatha Marin MD's note for details of the patient history of presentation and data.I have discussed, reviewed and agree with the documented History, Physical findings, Assessment andPlan of care. I have examined the patient myself and personally reviewed all studies. In addition, I certify thatI am a [facility] credentialed attending provider with admitting privileges and that the patient meets or has met medical necessity to require an inpatient IPI level of care meeting a minimum of two midnights or is on the [facility] inpatient only procedure list (status C) due to: post-operative care that cannotbe delivered as an outpatient; examples: pain only controlled with IV pain medication; frequent or complex wound care/dressing changes; NPO requiring IV fluid support. UMU FRYE MD 07/30/2024 * Juli Howe RN - 07/30/2024 12:39 PM EST ANGIO NURSING DATABASE Name: Jimenez Marin Date of : 1955 AGE: 69 y.o. Address: [address] [place] [id number] (home) Mobile: Telephone Information: Referring Provider: Umu Frye REASON FOR VISIT: Order Questions Answers Reason for exam and clinical history: likely muscle invasive bladder tumor with L hydro and flank pain, unable to visualize L ureteral orifice Is the patient on anticoagulant / antiplatelet therapy ? No Planned procedure: Left nephrostomy catheter placement Labs to be performed day of procedure: No labs Sedation: Moderate (Conscious sedation) Prophylactic antibiotic : Cipro Contrast: Omnipaque Additional medications for procedure: Lidocaine Consent: Pending Medications to discontinue (and days held): Aspirin (5 days); Plavix (5 days) Case Urgency:: D2- Within 24 hours (i.e. can be next day) Allergies Allergen Reactions Simvastatin Tegretol [Carbamazepine] Pertinent PMH: Patient Active Problem List Diagnosis Code Pain in right shoulder M25.511 Splenic laceration S36.039A Facial fracture due to fall S02.92XA, W19.XXXA Bladder tumor D49.4 Date/Procedure Med's given/comments 06/14/2018 Angiography Splenic Embolization Fentanyl 150 mcg IV, Versed 3 mg IV. Restless legs whilesleeping but otherwise tolerated well 07/30/24 left PCN placement Cipro 500 mg PO, Fentanyl 100 mcg 1220 to procedure room 2 via stretcher. Onto table left side up. All monitors, O2, safety strap in place. Meds per protocol. Laboratory Results: Lab Results Component Value Date INR 1.0 06/14/2018 Lab Results Component Value Date CREATININE 0.82 07/30/2024 CREATININE 0.76 (L) 06/18/2018 Lab Results Component Value Date K 4.2 07/30/2024 K 3.6 06/18/2018 Lab Results Component Value Date PLATELET 342 07/30/2024 PLATELET 368 (H) 07/23/2018 * Fanta Gray MSW - 07/30/2024 12:30 PM EST Social Work Response to Consult Consult: Question Answer Comment Adult or Pediatric Adult Reason for Consult Decision making / surrogacy / guardianship Additional information likely muscle invasice bladder disease with poor support system Social Work Response: Met with pt to assess support system. Pt lives with roommate/friend Erich Hawley; states that he and Erich help and support each other as much as possible. Pt states he has nofamily but has a few other friends locally who are able to provide some support. Regarding resources, pt states I've got everything I need. Uses [facility] for transportation and states he hasn't had issues getting where he needs to be. Pt notes that he recently met with a Palliative Care doctor and discussed Advance Care Planning there; when asked about an Advance Directive pt states he did that with palliative dr. However, pt cannot recall name of doctor or medical practice they worked with; only recalls that the dr was femaleand located in [facility]. Contacted pt's PCP office to see if they had an Advance Directive on file. They were unable to locate one. Follow Up Needed: Pt declines connection to additional resources. [employer] will attempt to locate Palliative doctor for Advance Directive. HARMONY Cotter, PAINT BOOTH OPERATOR Service Technician [employer] Sales Rep Office of Care Management [phone] * Zara Sanford RD - 07/30/2024 10:52 AM EST Nutrition Initial Note Jimenez Marin is a 69 y.o. male admitted with bladder tumor. Relevant medical history includes COPD, NV s/p stents, gross hematuria, bladder mass. Interval History No data found. Reason for Assessment: Low BMI, Malnutrition Evaluation Nutrition Recommendations: Regular Diet Encourage PO intake, document %PO in flowsheets ONS BID Milk with each meal per pt request Continuum of Care Plan Referral to Outpatient Services: follow up with outpatient RD - if following with clinic in [facility] recommend referral to RD there. Recommend Multivitamin- order pended Patient meets criteria for severe protein calorie malnutrition as outlined below I was able to discuss plan with provider Urology #[id number] . Sujatha Marin MD. Current Nutrition Regimen: Active Orders Diet Regular diet Frequency: Effective Now Number of Occurrences: Until Specified Assessment: Lab Results Component Value Date NA 135 07/31/2024 K 4.6 07/31/2024 CL 97 (L) 07/31/2024 CO2 28 07/31/2024 BUN 17 07/31/2024 CREATININE 1.02 07/31/2024 ESTGFR 80 07/31/2024 CALCIUM 9.5 07/31/2024 AST 19 07/29/2024 ALT 20 07/29/2024 ALKPHOS 85 07/29/2024 BILITOT 0.4 07/29/2024 No results found for: POCGLU Patient Lines/Drains/Airways Status Active Nutritional LDAs Name Placement date Placement time Site Days PIV 07/29/24 1246 22 gauge basilic vein (medial side of arm), right 07/29/24 1246 -- 2 Urethral Catheter 07/29/24 1523 hydrophilic coated 22 10 10 07/29/24 1523 -- 2 Nephrostomy Tube 07/30/24 1253 left flank 07/30/24 1253 -- 1 Oxygen Therapy / Airway Device: None (Room air) Shift Pressure Injury Prevention Occiput: No Injury Thoracic Spine: No Injury Sacral: No Injury Ischial - left: No Injury Ischial - right: No Injury Heel - left: No Injury Heel - right: No Injury Elbow - left: No Injury Elbow - right: No Injury Last Bowel Movement: 07/28/24 Intake/Output Summary (Last 24 hours) at 07/31/2024 1224 Last data filed at 07/31/2024 0817 Gross per 24 hour Intake 0 ml Output 1525 ml Net -1525 ml Relevant medications: Colace, LamoTRIgine, protonix, Miralax, Anthropometrics: Admit Weight: 45.86 kg Estimated body mass index is 13.71 kg/m?? as calculated from the following: Height as of this encounter: 182.9 cm (6'). Weight as of this encounter: 45.9 kg (101 lb 1.6 oz). [place] Body Weight (IBW) (kg): 80.91 Usual Body Weight: 165 Weight Loss: unintentional Duration of Weight Loss: Other (2 1/2 months) Weight Lost: 64 % of Weight Lost: 38 Wt Readings from Last 10 Encounters: 07/29/24 45.9 kg (101 lb 1.6 oz) 05/07/20 64.9 kg (143 lb) 06/15/18 78 kg (172 lb) 04/11/16 78 kg (172 lb) 03/03/16 77.1 kg (170 lb) 02/24/16 79.4 kg (175 lb) Patient Vitals for the past 168 hrs: Weight 07/29/24 1204 45.9 kg (101 lb 1.6 oz) Estimated / Assessed Needs: Kcal / K - 1836 Kcal (35 Kcal/Kg - 40 Kcal/Kg) + 500 kcal for weight gain Estimated Protein Needs: 92 g - 115 g (2.0 g/Kg - 2.5 g/Kg) Nutrition intake and intake history / interview: Patient Visit for the past 240 hrs (Last 3 readings): Patient Visit 07/31/24 1223 Pt screened for low BMI. Pt reports no appetite changes; says there is enough food toeat at home. Usual intake is as follows: B- ramen L- sandwich D: meat and potatoes Snacks- yes, butunable to list Beverages: inga aid or lemonade (4-5 glasses/day) Reports UBW is 165#, last seen 2.5months ago; states he has lost all but 103# of it. He reports this weight loss was in a very short amount of time and states he did not eat much during that time. With tumor identification and noted amount of weight loss, presume cancer cachexia. 38% weight loss in 3 months is clinically significant (since tumor identification in April per EMR). EMR notable for 40# weight loss documented in May. He reports having ensures at home and is open to receiving while admitted. This flex o writer operator emphasized the importance of protein for healing. Provided pt with high protein snack list to identify additional snacks. Pt inquired about NPO status; has a regular diet and ordered lunch for patient today. NFPE conducted, severe muscle and fat loss noted and visually apparent. Recommend outpatient follow up with RD; if patient is following with clinic in [facility], recommend referral to RD at clinic there. Nutrition Focused Physical Exam: Performed (07/31/24 CAB) . Subcutaneous Fat Loss Orbital region: Severe (buccal: severe) Upper arm region (triceps/biceps): Severe Thoracic and Lumbar regions (ribs, lower back, and maxillary line): Not assessed Lean Muscle Loss Martin region (temporalis muscle): Severe Clavicle bone region (pectoralis major): Severe Dorsal hand (interosseous muscle): None present Shoulder (deltoid): Severe Scapular bone region (latissimus dorsi, trapezius muscles): Not assessed Thigh region (quadriceps muscle): Severe Posterior calf region (gastrocnemius muscle): Not assessed (equipment present; presume to be severefrom visual) Fluid Accumulation Fluid Accumulation: Not assessed Malnutrition Diagnosis: Identified: greater than 7.5% weight loss in 3 months (38%), Severe Fat Loss, and Severe Lean Muscle Loss is consistent with Severe protein-calorie malnutrition in the setting of acute illness or injury, chronic illness (Chelsi et al, JPEN J Parenteral Enteral Nutr. 2011; 36(3): 273-83) Nutrition to continue to follow up while inpatient Zara Carias RD Clinical Nutrition * Ant Alcala RN - 07/30/2024 8:21 AM EST During VAS Purposeful Rounding, an assessment of your patient's venous access was performed fby theVascular Access Service. The following tasks were performed if needed and communicated to the bedside RN Choose all that apply: [] PIV(s) checked for patency if daily need for flush needs to be performed [] CVAD was checked for patency if daily flush needs to be performed [] IV tubing clamped or capped if needed [] Visual inspection of your patient's central line dressing integrity [x] Review of indications for vascular access [] A photo was taken of your patient's central line [x] Visual inspection of your patient's IV dressing integrity [] Other While rounding an intervention was needed and communicated to the bedside RN Choose all that apply: [] Nonocclusive IV dressing addressed [] Nonocclusive CVAD dressing (please identify type of line) [] Infusion site leaking [] IV not patent and removed [] IV not indicated [] IV placed [] IV restarted [] Implanted Port, PICC or ML dressing changed if needed (either PRN or weekly) [] Other * Marcelina Buck RN - 07/29/2024 8:20 PM EST Four Eyes Skin Assessment Four Eyes skin assessment was performed on admission to the unit by Marcelina BARCLAY and Jennie Davies RN. Patient had the following devices at the time of this assessment: Ferris Cath Device related pressure injury present? NO Skin Intact Last Jose Elias Score: 18 Instructions: Add LDA for any identified wounds Add Benge image for any suspected PI or non surgical wounds Order wound consult if suspected PI identified If patient is paraplegic or quadriplegic, if jose elias is 18 or less and/or otherwise indicated; please initiate Q2 turns 07/30/24 * Meg Jones MD - 07/29/2024 6:43 PM EST UROLOGY POST-OP NOTE Jimenez Marin is a 69 y.o. male s/p resection of bladder tumor, EUA rectum. Subjective Pain well-controlled. Denies nausea/vomiting, chest pain, SOB. Objective Temp: [36.3 ??C (97.3 ??F)-36.6 ??C (97.9 ??F)] Heart Rate: [68-83] Resp: [16-25] BP: (134-198)/(74-104) SpO2: [92 %-100 %] Heart Rate from SpO2: [68 bpm-82 bpm] I/O this shift: In: 400 [I.V.:300; IV Piggyback:100] Out: 60 [Urine:50; Blood:10] Physical Exam GEN: NAD. Resting comfortably. CV: RR, extremities well-perfused CHEST: Breathing comfortably on room air. ABD: Soft, mildly tender to palpation in suprapubic region, non-distended. EXTR: Moving spontaneously, warm. SCDs in place. Ferris catheter in place with approximately 400 cc bloody urine output since surgery. Assessment/Plan Jimenez Marin is a 69 y.o. male s/p resection of bladder tumor, EUA rectum. Stable post-op. - Pain decently well-controlled on current regimen. - Hemodynamically stable. - UOP adequate, continue to monitor. - Respiratory status at patient's baseline. - SCDs in place. - Continue post-op plan per primary team. Meg Jones MD documented in this encounter H&P Notes * Aspen Theodore PA - 07/30/2024 11:56 AM EST INTERVENTIONAL RADIOLOGY FOCUSED H&P: Procedure: Left nephrostomy catheter placement The patient's history and physical exam have been reviewed and completed. There has been no interval change from that of the pre-operative history and physical exam done within the last 30 days. Physical Exam: Cardiovascular: Regular, Normal Pulmonary: Breath sounds clear to auscultation The planned procedure (and sedation plan if appropriate) , its benefits and risks, and alternativeswere discussed with the patient. The patient consented to the procedure. PRE-SEDATION ASSESSMENT: Sedation Plan: minimal (single agent only) Source Note - Aspen Theodore PA - 07/29/2024 3:38 PM EST Images from the original note were not included. Addendum 07/30: Per primary team, request is for left PCN only. Interventional Radiology Focused Pre-procedure H&P: PCP: Cintia Jones APRN Referring Provider: Umu Frye Planned procedure: Left nephrostomy catheter placement Procedure indication: Left hydronephrosis, bladder mass, need for urinary diversion IR workflow: Procedure request received through Interventional Radiology eDH order queue. There are no answered order specific questions. History of Present Illness: Per chart review, Jimenez Marin is a 69 y.o. male with PMH of COPD (onhome O2) with newly detected bladder mass, hematuria and L hydronephrosis currently admitted following ureteroscopy with failed attempt at L nephrostomy catheter vs L internal ureteral stent placement due to inability to visualize L ureteral orifice who presents to Interventional Radiology to undergo L nephrostomy catheter placement. I contacted Urology to discuss possible L internal stent placement in addition to L nephrostomy catheter vs L nephroureteral catheter placement. I have not heard back. IR will reach out tomorrow to clarify. Remainder of patient's medical and surgical history, allergies, medications, and social/family history obtained below as previously outlined in patient's medical record. IR History: No prior procedures. Imagin04/17/24 Assessment: 69 y.o. male with L hydronephrosis 2nd bladder mass presenting to Interventional Radiology for L PCN. Plan Planned procedure: Left nephrostomy catheter placement Labs to be performed day of procedure: No labs Sedation: Moderate (Conscious sedation) Prophylactic antibiotic : Cipro Contrast: Omnipaque Additional medications for procedure: Lidocaine Consent: Pending Medications to discontinue (and days held): Aspirin (5 days), Plavix (5 days) Cytopathology presence needed: No Case Urgency:: D2- Within 24 hours (i.e. can be next day) Labs: Lab Results Component Value Date HGB 12.7 (L) 07/29/2024 HGB 15.2 07/23/2018 HCT 39.3 (L) 07/29/2024 HCT 46.3 07/23/2018 WBC 14.60 (H) 07/29/2024 WBC 15.2 (H) 07/23/2018 PLATELET 419 (H) 07/29/2024 PLATELET 368 (H) 07/23/2018 INR 1.0 06/14/2018 BUN 16 07/29/2024 BUN 10 06/18/2018 CREATININE 0.88 07/29/2024 CREATININE 0.76 (L) 06/18/2018 ALBUMIN 3.7 07/29/2024 BILITOT 0.4 07/29/2024 AST 19 07/29/2024 ALT 20 07/29/2024 ALKPHOS 85 07/29/2024 Allergies: Simvastatin and Tegretol [carbamazepine] Medications: No current facility-administered medications on file prior to encounter. Current Outpatient Medications on File Prior to Encounter Medication Sig Dispense Refill Breztri Aerosphere 160-9-4.8 mcg/actuation inhaler (HFA) Inhale 2 puffs into the lungs 2 times daily. oxyCODONE-acetaminophen (Percocet) 5-325 mg tablet Take 1 tablet by mouth every 8 hours as needed. budesonide/formoterol fumarate (SYMBICORT INHL) Inhale into the lungs. aspirin 81 mg Tablet, Delayed Release (E.C.) Take 81 mg by mouth daily. clopidogreL (Plavix) 75 mg tablet Take 1 tablet by mouth Daily at Noon. docusate sodium (Colace) 100 mg capsule Take 1 capsule by mouth 2 times daily. escitalopram (Lexapro) 20 mg tablet Take 1 tablet by mouth Daily at Noon. multivitamin with minerals (One-A-Day) Tablet Take 1 tablet by mouth Daily @ 0600. polyethylene glycoL (Miralax) 17 gram/dose Powder Take 17 g by mouth daily. Senexon-S 8.6-50 mg Tablet Take 2 tablets by mouth daily. Vitamins B Complex Tablet Take 1 tablet by mouth Daily at Noon. loratadine (Claritin) 10 mg Tablet Take 10 mg by mouth daily. QUEtiapine (SEROquel) 50 mg Tablet Take 50 mg by mouth 2 times daily. lamotrigine (LAMICTAL ORAL) Take 50 mg by mouth 2 times daily. atorvastatin (Lipitor) 20 mg Tablet Take 20 mg by mouth daily. meloxicam (MOBIC) 15 mg Tablet Take 15 mg by mouth daily. fluticasone propionate (FLONASE) 50 mcg/actuation [place], Suspension 1 spray daily. lisinopril (PRINIVIL;ZESTRIL) 10 mg Tablet Take 10 mg by mouth daily. omeprazole (PRILOSEC) 20 mg Capsule, Delayed Release(E.C.) Take 20 mg by mouth daily. traZODone (DESYREL) 100 mg Tablet Take 100 mg by mouth nightly. multivitamin Gvnl-Ry-YJ-Min (THERAPEUTIC-M) 27-0.4 mg Tablet Take 1 tablet [...] Inhale 18 mcg into the lungs daily. Past Medical/Surgical history: Patient Active Problem List Diagnosis Code Pain in right shoulder M25.511 Splenic laceration S36.039A Facial fracture due to fall S02.92XA, W19.XXXA Bladder tumor D49.4 History reviewed. No pertinent past medical history. History reviewed. No pertinent surgical history. Social History and Habits: Social History Tobacco Use Smoking status: Former Current packs/day: 0.25 Types: Cigarettes Smokeless tobacco: Never Tobacco comments: Quit 4 months ago per pt. Substance Use Topics Alcohol use: Not Currently Comment: was a heavy drinker, now drinks <3beers per month Drug use: Yes Frequency: 2.0 times per week Types: Marijuana Comment: smokes Significant Family History: Family History Family history unknown: Yes Pertinent ROS: as per HPI Physical Exam: Pending (to be performed in IR the day of procedure) ASA: Pending (to be assessed in IR the day of procedure) Mallampati class: Pending (to be assessed in IR the day of procedure) 07/29/2024 Jaci Dougherty PA-C * Aspen Theodore PA - 07/29/2024 3:38 PM EST Images from the original note were not included. Addendum 07/30: Per primary team, request is for left PCN only. Interventional Radiology Focused Pre-procedure H&P: PCP: Cintia Jones APRN Referring Provider: Umu Frye Planned procedure: Left nephrostomy catheter placement Procedure indication: Left hydronephrosis, bladder mass, need for urinary diversion IR workflow: Procedure request received through Interventional Radiology eDH order queue. There are no answered order specific questions. History of Present Illness: Per chart review, Jimenez Marin is a 69 y.o. male with PMH of COPD (onhome O2) with newly detected bladder mass, hematuria and L hydronephrosis currently admitted following ureteroscopy with failed attempt at L nephrostomy catheter vs L internal ureteral stent placement due to inability to visualize L ureteral orifice who presents to Interventional Radiology to undergo L nephrostomy catheter placement. I contacted Urology to discuss possible L internal stent placement in addition to L nephrostomy catheter vs L nephroureteral catheter placement. I have not heard back. IR will reach out tomorrow to clarify. Remainder of patient's medical and surgical history, allergies, medications, and social/family history obtained below as previously outlined in patient's medical record. IR History: No prior procedures. Imagin04/17/24 Assessment: 69 y.o. male with L hydronephrosis 2nd bladder mass presenting to Interventional Radiology for L PCN. Plan Planned procedure: Left nephrostomy catheter placement Labs to be performed day of procedure: No labs Sedation: Moderate (Conscious sedation) Prophylactic antibiotic : Cipro Contrast: Omnipaque Additional medications for procedure: Lidocaine Consent: Pending Medications to discontinue (and days held): Aspirin (5 days), Plavix (5 days) Cytopathology presence needed: No Case Urgency:: D2- Within 24 hours (i.e. can be next day) Labs: Lab Results Component Value Date HGB 12.7 (L) 07/29/2024 HGB 15.2 07/23/2018 HCT 39.3 (L) 07/29/2024 HCT 46.3 07/23/2018 WBC 14.60 (H) 07/29/2024 WBC 15.2 (H) 07/23/2018 PLATELET 419 (H) 07/29/2024 PLATELET 368 (H) 07/23/2018 INR 1.0 06/14/2018 BUN 16 07/29/2024 BUN 10 06/18/2018 CREATININE 0.88 07/29/2024 CREATININE 0.76 (L) 06/18/2018 ALBUMIN 3.7 07/29/2024 BILITOT 0.4 07/29/2024 AST 19 07/29/2024 ALT 20 07/29/2024 ALKPHOS 85 07/29/2024 Allergies: Simvastatin and Tegretol [carbamazepine] Medications: No current facility-administered medications on file prior to encounter. Current Outpatient Medications on File Prior to Encounter Medication Sig Dispense Refill [place] Biotechi Aerosphere 160-9-4.8 mcg/actuation inhaler (HFA) Inhale 2 puffs into the lungs 2 times daily. oxyCODONE-acetaminophen (Percocet) 5-325 mg tablet Take 1 tablet by mouth every 8 hours as needed. budesonide/formoterol fumarate (SYMBICORT INHL) Inhale into the lungs. aspirin 81 mg Tablet, Delayed Release (E.C.) Take 81 mg by mouth daily. clopidogreL (Plavix) 75 mg tablet Take 1 tablet by mouth Daily at Noon. docusate sodium (Colace) 100 mg capsule Take 1 capsule by mouth 2 times daily. escitalopram (Lexapro) 20 mg tablet Take 1 tablet by mouth Daily at Noon. multivitamin with minerals (One-A-Day) Tablet Take 1 tablet by mouth Daily @ 0600. polyethylene glycoL (Miralax) 17 gram/dose Powder Take 17 g by mouth daily. Senexon-S 8.6-50 mg Tablet Take 2 tablets by mouth daily. Vitamins B Complex Tablet Take 1 tablet by mouth Daily at Noon. loratadine (Claritin) 10 mg Tablet Take 10 mg by mouth daily. QUEtiapine (SEROquel) 50 mg Tablet Take 50 mg by mouth 2 times daily. lamotrigine (LAMICTAL ORAL) Take 50 mg by mouth 2 times daily. atorvastatin (Lipitor) 20 mg Tablet Take 20 mg by mouth daily. meloxicam (MOBIC) 15 mg Tablet Take 15 mg by mouth daily. fluticasone propionate (FLONASE) 50 mcg/actuation [place], Suspension 1 spray daily. lisinopril (PRINIVIL;ZESTRIL) 10 mg Tablet Take 10 mg by mouth daily. omeprazole (PRILOSEC) 20 mg Capsule, Delayed Release(E.C.) Take 20 mg by mouth daily. traZODone (DESYREL) 100 mg Tablet Take 100 mg by mouth nightly. multivitamin Gsyp-Vy-PH-Min (THERAPEUTIC-M) 27-0.4 mg Tablet Take 1 tablet [...] Inhale 18 mcg into the lungs daily. Past Medical/Surgical history: Patient Active Problem List Diagnosis Code Pain in right shoulder M25.511 Splenic laceration S36.039A Facial fracture due to fall S02.92XA, W19.XXXA Bladder tumor D49.4 History reviewed. No pertinent past medical history. History reviewed. No pertinent surgical history. Social History and Habits: Social History Tobacco Use Smoking status: Former Current packs/day: 0.25 Types: Cigarettes Smokeless tobacco: Never Tobacco comments: Quit 4 months ago per pt. Substance Use Topics Alcohol use: Not Currently Comment: was a heavy drinker, now drinks <3beers per month Drug use: Yes Frequency: 2.0 times per week Types: Marijuana Comment: smokes Significant Family History: Family History Family history unknown: Yes Pertinent ROS: as per HPI Physical Exam: Pending (to be performed in IR the day of procedure) ASA: Pending (to be assessed in IR the day of procedure) Mallampati class: Pending (to be assessed in IR the day of procedure) 07/29/2024 Jaci Dougherty PA-C * Umu Frye MD - 07/29/2024 1:01 PM EST Urology H&P Jimenez Marin is a 69 y.o. male with a history of COPD, NV s/p stents, recently quit smoking, gross hematuria, and bladder mass seen on a CT scan with office cystoscopy on 06/02/24 notable for a large sessile appearing left and right sided bladder wall/neck mass(es) noted. There was a mass on the trigone and UO not visualized. He presents for TURBT/RPG, possible stent vs PCN. He reports chest pain that is chronic. He is clearly SOB at baseline and states that this is the way his breathing is. He is on home oxygen. He also sees a palliative care physician in [facility],but doesn't know her name and doesn't know why he is seeing her. When asked about his goals in life he states he is unsure and doesn't want to think about it. He does have ongoing hematuria, no clots. He does have difficulties emptying his bladder and bladder pain/ left flank pain. He can take care of his ADL at home Goes shopping once a month. Lives with a room mate who also is a friend. He doesn't know the phone number of his friend. Anticoagulation: ASA81 and Plavix - continue ASA81, Plavix held x7 days. Micro: 06/03/24 UCx NG History reviewed. No pertinent past medical history. History reviewed. No pertinent surgical history. Allergies Allergen Reactions Simvastatin Tegretol [Carbamazepine] Patient Vitals for the past 24 hrs: Temp Pulse Resp BP SpO2 O2 Device 07/29/24 1204 36.6 ??C (97.9 ??F) 83 24 (!) 175/104 100 % RA Body mass index is 13.71 kg/m??. Exam: Gen: NAD CV: faint heart sounds Pulm: CTAB, respiratory effort normal Labs: Recent Labs 07/29/24 1120 WBC 14.60* HGB 12.7* HCT 39.3* PLATELET 419* Recent Labs 07/29/24 1120 NA 134* K 4.8 CL 93* CO2 29 BUN 16 CREATININE 0.88 Imaging: Relevant imaging reviewed, concerning for MIBC with left hydro, cT3. A/P: 69 y.o. male who presents today for above procedures. Risks, benefits, and alternatives have been explained. Questions answered. Proceed with scheduled procedure. - Consent in chart - discussed this is high-risk surgery given his poor pulmonary status. He may have to go to ICU postop. - LEFT side marked for possible JJ stent placement. - Ppx abx: ancef - Full code. Umu Frye MD, MS 07/29/2024 1:10 PM Urologic Oncology [facility], [place], [place] pastry sous chef (Urology) and of [facility], [facility] at [facility] documented in this encounter Miscellaneous Notes * Plan of Care - Claudia Mckeon RN - 08/02/2024 1:00 PM EST Pt AAOx3, questionable with situation. Educated pt heavily on the purpose of Ferris Catheter and Nephrostomy tube as well as how to care for and empty drainage bags. Printed diagrams showing where theFoley and Nephrostomy tubes are inserted so that pt can easier understand the placement in relationto his anatomy and how they are draining his urine/bladder. Pt is SBA with RW. Medicated for pain with PRN Oxycodone and scheduled Oxycontin per eMAR. Reviewed discharge instructions, medications, prescriptions, follow-up appts, and care of Ferris and Nephrostomy tube with pt, verbalized understanding. Reviewed how to drain catheter and nephrostomy, provided pt with two graduated cylinders to measure output as well as a sheet to document output daily. Emphasized hand hygiene before and after as well as cleaning around the catheter to prevent infection, pt verbalized understanding. Emphasized the importance of monitoring for s/s of infection; burning, pain in back/flank, fever, drainage around Nephrostomy tube site, decreased urinary output, pt verbalized understanding. Also emphasized the importance of monitoring for blood clots and urine turning dark red with decreased urinary output aspt could have a clot that is blocking urine flow and would need to be seen by urology, pt verbalized understanding. Pt aware that he can not soak Nephrostomy site, to change dressing when it gets wet/soiled. Drainage bags transitioned to leg bags for pt comfort, pt shown how to apply to his legs aswell as drain the leg bags, verbalized understanding. Pt aware that [facility] to contact him within 24-48hours, if he does not hear from them by Sunday, encouraged him to reach out to the number provided on discharge instructions. Follow-up appt with Urology on 08/07 for void trial. Emphasized the importance of maintaining drainage bags below bladder and securing them at all times so they do not get dislodged, pt verbalized understanding. VSS. Needs met this shift. Hourly rounding completed. Pt discharged, via W/C, accompanied by [facility]. All belongings with pt, discharged to home via Medicaid ride. * Plan of Care - Gian Talbert RN - 08/02/2024 4:21 AM EST OUTCOME EVALUATION NOTE: OUTCOME SUMMARY: Patient A&Ox4, VSS on RA. Denies nausea/vomiting, CP, SOB. Pain controlled w/ scheduled and PRNmedications, see MAR. Patient voiding to Ferris and Neph Tube. Dressing to neph tube site noted to be CDI. Patient resting between care. All concerns and questions at this time addressed, bed in lowest position, call light in reach. PLAN MOVING FORWARD: Pain control Mobilize D/C planning Significant Shift Events: *Ferris continuing to clear up to a light yellow/pink. Encouraged to maintain adequate PO intake INDIVIDUALIZED FALL PREVENTION INTERVENTIONS: Patient-specific fall risk factors per assessment: [current deficits]: Hospital environment, Pain, Medications Assistance [level of assistance required for transfers and ambulation]: 1 assist w/ walker Supervision [direct monitoring required during toileting and ADLs]: 1A w walker Surveillance [continuous indirect monitoring]: Hourly rounding, Song, Nursing knowledge exchange,Call moss within reach, Bed alarm * Plan of Care - Claudia Mckeon RN - 08/01/2024 6:45 PM EST Pt AAOx3, disoriented to situation, pt having difficulty understanding the purpose of Ferris Catheter and Nephrostomy tube. This nurse spent significant time with pt educating him on where the Ferris is placed as well as where the Nephrostomy tube is placed, their purpose, and why pt is unable to urinate normally as he states he has the urge to urinate and everyone keeps telling me just to go, but nothing comes out. I reiterated to him that he will not urinate out of his penis as long as the Ferris and the Nephrostomy are in place, the urine will drain into those drainage bags, that if he has the urge to urinate, he can push to urinate as he normally would, but that the urine would drain into those bags. Pt verbalized frustration as he continues to state that he does not understand why he cannot urinate and that no one has been able to tell him what the purpose of the tubes are. Inquired whether pt had explained his urge to urinate and abdominal pain to the Urology team following him, he stated that I've told pretty much everyone who has come in here. Relayed concerns to Urology PA and Care Management team in group chat that pt is not comprehending purpose of drains and he is to be discharged home today for self care/maintenance of drains, questioned safety and competency concerns as pt is not retaining information and discharge ride set up. Care Management stated that PT/OT recommending home health services as well, which will delay pt's discharge therefore pt's discharge cancelled for today. Spoke with DIANA Cornejo, he stated that he doesn't know if pt will fully understand the entire reason for the tubes, that with home health coming, they will be able to monitor it for an hour maybe every other day, but that doesn't warrant him staying in the hospital for the entire duration while he has the tubes. I inquired about pt's roommate who is stated to help him at home, if it would be possible to have him come in for some education on drain maintenance, Wale stated that pt does not have a contact number for him. This nurse will continue to educate pt on emptying and caring for drains in preparation for discharge. VSS. Needs met this shift. Hourly rounding completed. Pt medicated for pain per eMAR. Pt resting in bed. * Care Management - Bethany Frank RN - 08/01/2024 2:52 PM EST OFFICE OF CARE MANAGEMENT PROGRESS NOTE LOS: Hospital Day 3 days Chart reviewed, care reviewed with primary team and at interdisciplinary rounds. Medical Decision Maker: Self Financial Decision Maker: Self Functional status prior to admission: Independent Home Environment: Others in the home: roomate(s). Current Living Arrangements: mobile home. Accessibility Concerns: 4 SARA, otherwise all on one level. Current Functional Ability: Independent DME used at home: none (States he has a cane at home but doesn't use/need it) DME Needed at Discharge: No Patient is insured through: Primary Insurance: MEDICARE Payor: MEDICARE / Plan: MEDICARE PART A & B / Product Type: *No Product type* / Secondary Insurance: MEDICAID [place] Last Physical Therapy Recommendation: home with home health with None (08/01/24 1007) Last Occupational Therapy Recommendation: home with daily check in with None (08/01/24 0940) Plan for discharge is: Home w/ Services Outpatient Agency/Support Group Needs: Homecare agency Agency Choices: [facility] for RN/PT/OT Home Health Services: Registered Nurse, Physical Therapy, Occupational Therapy Transportation: health plan transportation *[facility] Barriers to discharge: Global: Discharge planning Global Comment: [facility] Plan: Patient is medically ready per medical team. Plan going forward is: Anticipated d/c tomorrow w/ [facility] services for RN/PT/OT needs, delay due to lack of education and service readiness at time of transport and last-minute VNA need. Anticipated Date of Discharge: 08/01/2024 Bethany Frank RN-BSN-CM Pager: [phone] * Care Management - Bethany Frank RN - 08/01/2024 2:32 PM EST The Patient has been provided a list of Home Health Agencies/DME vendors which serve their preferred geographic area. A letter describing our affiliations was reviewed with them and they were educated about their right to choose where referrals are placed. Patient requests referral to : [facility]. [address] [place] [id number] Expected date of discharge: 08/02/2024. Referral routed to the [employer] [facility] for matching with agency/vendor and to provide any required information. * Care Management - Katia Knapp - 08/01/2024 11:40 AM EST Transportation for discharge has been scheduled/confirmed through [facility]. [facility] will have a refuse driver here at 14:15 at entrance #2 (inpatient visitor entrance) to provide patient with a ride home. * Initial Assessments - Shavonne Eaton, OT - 08/01/2024 9:40 AM EST Occupational Therapy Evaluation Patient profile: Jimenez Marin is a 69 y.o. male admitted on 07/29/2024. Pt with PMH of COPD, NV s/p stents, recent smoker, chronic CP/SOB on home O2 5L. Pt is now 3 Days Post-Op from a large TURBT that was complicated by a very large, necrotic, muscle invasive mass requiring extensive resection. Past medical history: History reviewed. No pertinent past medical history. Past surgical history: Past Surgical History: Procedure Laterality Date IR NEPHROSTOMY TUBE PLACEMENT PERCUTANEOUS LEFT 07/30/2024 IR Nephrostomy Tube Placement Percutaneous Left 07/30/2024 Jamin Ugarte MD [facility] INTERVENTIONL RAD PRO CYSTOURETHROSCOPY, FULGUR >5CM LESN N/A 07/29/2024 CYSTO, RESECTION BLADDER TUMOR, GREATER THAN 5.0CM (WRVU 7.5) performed by Umu Frye MD at [facility] MAIN OR PRO UNLISTED PX RECTUM N/A 07/29/2024 EUA RECTUM (WRVU 7.56) performed by Umu Frye MD at [facility] MAIN OR Activity Orders: Activity Orders (From admission to next 72h) Start Ordered Unscheduled Activity as tolerated - Out of bed to chair PRN Comments: On POD 0 07/29/24 1532 Precautions/Special Considerations: Full Code, R PIV, Ferris Catheter, Nephrostomy Tube Social History: Patient lives with his friend/roommate in a trailer with 4 SARA with bilateral rails Home Setup: Tub shower with grab bars (has metal chair he uses in the shower). Standard height toilet DME: Cane Baseline ADL/Mobility: Independent with ADLs and functional mobility at baseline. Relies on transportation assistance as he does not drive. Subjective: About the same as yesterday Objective: Seen today for OT evaluation. Cognitive Status/Behavior - Behavior / Mood: alert and cooperative - Alert and oriented to: person, place, time, and situation - Follows commands: multi step and 100% of the time - Attention: WFL - Safety awareness: decreased insight into deficits Vision & Perception: corrective lenses for reading Communication: WFL Hearing: WFL Range of motion, strength, coordination: Hand dominance: right Bilateral UEs are within functional limitations for basic ADLs LE limitations: WFL Sensation: Reports numbness in R foot at baseline Activities of Daily Living: Self-feeding: Independent Grooming: Independent Dressing: Max A to don socks, but pt reports he does not typically wear socks at home. Min A to change gown Bathing: Deferred. Do not anticipate difficulty in seated position Toileting: Transfer: Supervision Hygiene: Independent Functional Mobility: Supine to sit: Independent Sit to stand: Supervision Ambulation: Supervision without use of AD Stand to sit: Supervision Sit to supine: Independent Balance: ?? Static seated balance: Good, Independent ?? Dynamic seated balance: Good, Independent ?? Static standing balance: Fair, Supervision ?? Dynamic standing balance: Fair, Supervision Vitals: On RA at start of session. On 4L during ambulation (has O2 at home that he uses PRN) Pain: 03/26 Skin: Scattered bruising, dryness Education: patient have been educated on Role of occupational therapy/rehabilitation, Transfers, Assistive device/technique, ADL, Breathing exercises, Safety, Functional Mobility, Activity pacing/Energy conservation, Home Management, Balance, Recommendations, and Discharge planning and verbalizes understanding Pt left in the bed at end of session with all needs met, call moss within reach and VSS. RN and team notified via [id number] conversation regarding Pt status, d/c recommendations, and DME needs. Assessment: Pt has been seen for occupational therapy evaluation. Jimenez Marin presents with the following performance skill deficits and client factors: increased pain, decreased activity tolerance, and deconditioning. These performance deficits have led to activity limitations and participation restrictions in the following areas of occupation: transfers / mobility, home management, and community mobility. Pt seen for OT evaluation this date. Pt alert and agreeable to session. Supervision for functional transfers and mobility without use of AD. Able to independently manage his catheter and nephrostomy bags during ambulation. Required assist to don socks, however pt states he does not usually wear socks at baseline. Able to complete steps for toileting with Supervision - Independent. Pt reports he lives with his friend/roommate who is in good health and is able to support/assist as needed. Pt appears to be functioning near his baseline level and has equipment needs in place at homealready. No further OT intervention is indicated within the acute care setting. Recommend dischargehome with daily check-in once medically cleared. Equipment Needs Upon Discharge (OT): None Anticipated Discharge Disposition (OT): home with daily check in Other Recommendations: OOB to chair for all meals Ambulate as tolerated with Supervision (no AD) Encourage participation in ADL's by providing set up assist on tray table and physical assist only as needed Promote normalcy by encouraging participation in common daily tasks & leisure activities by providing set up assist Other Recommendations: No other consults recommended at this time. Plan: OT: Therapy Frequency (OT): evaluation only Total Minutes, Occupational Therapy: 27 ([id number] (Low Eval)) 2017 OT Evaluation Code Rationale: Diagnosis & Pertinent Co-Morbidities affecting Plan of Care: see PMHx Occupational Profile & Client History: Brief Expanded Extensive X Assessment of Occupational Performance: 1-3 performance deficits X 3-5 performance deficits 5 + performance deficits Clinical Decision Making: Low Moderate High X Clinical decision making of low complexity using standardized patient assessment instrument and measurable assessment of functional outcome. Shavonne Eaton, PANCHOR/L She/her Occupational Therapy Rehabilitation Department Pager: [phone] * Initial Assessments - Ines Combs, PT - 08/01/2024 9:40 AM EST Physical Therapy Evaluation Patient profile: Jimenez Marin is a 69 y.o. male admitted on 07/29/2024. Pt with PMHx of COPD, NV s/p stents, recent smoker, chronic CP/SOB on home O2 5L. Pt is now s/p large TURBT that was complicated by a very large, necrotic, muscle invasive mass requiring extensive resection. Pt referred to Physical Therapy for mobility assessment prior to discharge. Patient with the following active problems: History reviewed. No pertinent past medical history. Past Surgical History: Procedure Laterality Date IR NEPHROSTOMY TUBE PLACEMENT PERCUTANEOUS LEFT 07/30/2024 IR Nephrostomy Tube Placement Percutaneous Left 07/30/2024 Jamin Ugarte MD [facility] INTERVENTIONL RAD PRO CYSTOURETHROSCOPY, FULGUR >5CM LESN N/A 07/29/2024 CYSTO, RESECTION BLADDER TUMOR, GREATER THAN 5.0CM (WRVU 7.5) performed by Umu Frye MD at [facility] MAIN OR PRO UNLISTED PX RECTUM N/A 07/29/2024 EUA RECTUM (WRVU 7.56) performed by Umu Frye MD at [facility] MAIN OR Active Non-Hospital Problems Diagnosis Facial fracture due to fall Splenic laceration Pain in right shoulder Social History: Home set-up: pt lives with roommate/friend in mobile home Bathroom Set-up: tub shower with GB, metal chair available Stairs: 4 SARA B rails Baseline Mobility: independent with mobility no device and ADLs, relies on [facility] for transportation Equipment at home: cane Fall history: reports 1 fall about a year ago Precautions/Special Considerations: full code; fall precautions; high risk for skin breakdown; supplemental oxygen PRN; regular diet; PIV RUE; ferris catheter; nephrostomy tube Mobility and Positioning Recommendations: Pt. to utilize SBA and no device for ambulation and transfers with nursing. Please encourage up to chair for meal times as able. Pt encouraged to ambulate frequently with staff, getting into the bathroom for toileting and walking out in the kruger >/= 3 times daily as able. Subjective: Pt pleasant and cooperative with care Objective: Pt seen for evaluation today. Pain: 7/10 L abdomen/flank Vital Signs: VSS on RA at rest, 4L NC with mobility Mental Status: alert, oriented to person, place, and time Vision: WFL, glasses for reading Musculoskeletal: ROM: WFL BLEs Strength: WFL BLEs Sensation: intact LT BLEs Bed Mobility: Supine to Sit: independent Sit to Supine: independent Transfers: Sit to Stand: supervision Stand to Sit: supervision Bed to Toilet: SBA no device Gait: Distance: 10 ft x 2, 40-50 ft x 2 Device used: no device Level of assist: SBA Gait mechanics: reciprocal pattern Stairs: pt ascend/descend 4 steps using unilateral rail, SBB, step to pattern on ascend/descend Balance: Sitting Static: Good Sitting Dynamic: Good Standing Static: Good Standing Dynamic / Gait: Good- Education: patient has been educated on Stairs, Gait , Activity pacing/Energy conservation, Role oftherapy, Balance, and Discharge planning and verbalizes and demonstrates understanding. Patient status, treatment, and mobility recommendations discussed with nursing. Assessment: Jimenez Marin was seen today for physical therapy evaluation. Pt presents near functional baseline in regards to activity tolerance, strength and balance. Pt reports using supplemental oxygen as needed at home based on his symptoms; during showers, etc. Pt was able to tolerate walking household distances and climb 4 steps with SBA, 4L NC used to promote SpO2 >90%. Pt demonstrates fair ability to self pace with mobility and self care tasks. No further IP PT services warranted. Recommend home with home PT services once medically optimized. Inpatient Physical Therapy Plan: discharge inpatient Physical Therapy services Discharge Recommendations: Based on current findings- home with home health Consult Recommendations: No other consults recommended at this time. Equipment needs: None PT Evaluation Code Rationale: Diagnosis & Pertinent Co-Morbidities, personal factors, and present illness affecting Plan of Care: (see above); Additional personal factors or co- morbidities that impact plan: Total # of Factors: 0 1-2 3+ X Examination of body system impairments, functional limitations and behaviors, and/or participation restrictions. Addressing 1-2 elements Addressing 3 + elements X Addressing 4 + elements Clinical presentation: See assessment above. Stable/Uncomplicated Evolving/Fluctuating Symptoms Unstable/Unpredictable X Clinical decision making of low complexity based on pt's functional performance as outlined in thisevaluation. Time IN / OUT: 09:40-10:07 Total Time: 27 minutes; Arash Combs PT DPT Pager: [phone] Physical Therapy Inpatient Rehabilitation Department * Consult Note - Sheldon, Kristel M, DO - 07/31/2024 12:56 PM EST Palliative Medicine Consultation NAME: Jimenez Marin DATE: 07/31/2024 ATTENDING: Umu Frye MD PCP: Cintia Jones APRN Hospital day: Hospital Day 2 days The Palliative Care Service is asked by Dr. Umu Frye MD to see this patient for: Symptom ManagementDecision Making: including discussion and assessment of goals of care, advance planning , etc.Coping with Serious Illness: also consider consultation to BIT and first aid officer if appropriate History of Present Illness: Jimenez Marin is a(n) 69 y.o. male from [place], [place] with a past medical history (per chart review) of COPD (on home O2 as needed, CAD s/p NV (around 2009, s/p 2 stents, on ASA), Bipolar (well- controlled on medications), history of tobacco use (quit in January 2024, previously smoked 1ppd since he was 13yo), previous marijuana use, and HTN who presented to [facility] for scheduled TURBT procedure in the setting of recently diagnosed bladder cancer. Jimenez initially presented to the ED in [facility] on 04/17/2024 for dysuria, and abdominal pain. Hehad reported at that time an associated 1-2 months of gross hematuria. CT imaging of chest/abdomen/pelvis w/contrast obtained showed Lt hydroureteronephrosis with delayed function on the LT. There is a large left sessile bladder tumor involving most of the Lt side of the bladder and the area of the Lt u/o. He was referred to Urology as an outpatient for further evaluation and was subsequently scheduled for TURBT +/- PCN v stent at [facility]. On 07/29, Jimenez underwent cystoscopy, and resection of the bladder tumor with removal of 8.5 cm with utilization of neuraxial block for anesthesia (given high risk for adverse event with sedation 2/2COPD). Tumor was better characterized as a large muscle invasive tumor along the trigone, imaging was not able to visualize the left ureteral orifice, and the right ureteral orifice unroofed with papillary tumor extruding. Successful procedure on 07/30 with IR for left nephrostomy catheter placement for ureteral drainage. Jimenez continues to have ongoing pain in the abdomen and bilateral flank. Since April, he has be using Percocet 5-325 bid prescribed from PCP with moderate relief. Palliative Care consulted for assessment of GOC, advanced planning and coping with serious illness.Primary team also asked for recommendations for symptom management, most notably pain. Of note, Jimenez was referred to [facility] ([phone]) by his director of science, Dr. 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 He last saw Dr. Bethany Byrd on 03/04/2024, who helped him to complete a COLST and AD. He hasnot been seen in this office since his bladder cancer diagnosis. 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 Does not name any family members who he is close with. Lives with a roommate, Erich Hawley, [place] in [place], [place] with [place]. No pets, but enjoys feeding and visiting with some Raccoons which come around the house (a mama and 3 cubs) Enjoys eating and watching TV; proud of his independence and ability to care for himself and takecare of small chores around the house Current Emotional Context & Counseling Provided: Palliative care team comprised of myself and Dr. Fredrick Ritchie met with Jimenez at bedside to assess for understanding of illness and coping. Jimenez was in good spirits today, though somewhat reluctant to talk at length about his cancer diagnosis. When asked how his day was going, he jokingly rolled his eyes to suggest how could his day begood? I'm stuck here (in the hospital), - his overall goal is to be discharged home. He confirmed that he is being seen at [facility] palliative care office for COPD, but he shared that these discussion surrounding goals of care and serious illness are upsetting for him, and he always leaves the office with on the mind. He is NOT someone who wants all details of his diagnosis, and prefers to hear about the big picture. Jimenez named that he was fearful to hear the updates we offered to share, but with his permission, we delivered the difficult news that his bladder cancer diagnosis is likely not amenable to chemotherapy and that the radiation offered is only palliative, not curative. In addition, he is unlikely to be a candidate for further surgical interventions. We also shared a time based prognosis of one year based on our discussion with Dr. Frye (Urology). Jimenez seemed to take this all in, and reflected that this has been a lot, and hard to hear. Jimenez did not share any specific goals he wishes to accomplish in the time he has left. 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 That being said, he specifically stated that if any additional treatments or options were offered to him, he WOULD want to pursue them. He is willing to go throughpalliative radiation and see what's possible. Noting that he has had clear GOC conversation w/ completion of AD and COLST with Dr. Byrd, we didnot revisit these topics in depth. However, Jimenez confirmed that he recently updated his COLST to reflect the status of DNAR but accepting of time limited trial of intubation. He understands that hisCode Status was updated during this admission to reflect Full Code in the setting of a procedure, however his COLST was not changed from 03/04/2024. At the end of our visit, we thanked Jimenez for his time, and he said it was nice to have company. We asked if he would like visits from our Palliative Care volunteers, and he was uncertain if he would be in the mood when they come, but thought that might be OK. Additionally, he is open to healing arts and Reiki. Physical symptoms/ROS: Pain: Pain poorly controlled at baseline. Jimenez localizes the pain from just below the nipple line to Lack of appetite: has had significant weight loss in setting of severe COPD. (Last reported value of 143lb in Apr 2020, now 101lb Jul 2024). Feels weight loss was most significant in the last year. However, reports having a good appetitive and had pigged out on lunch just prior to our visit. Nausea: none Constipation: Mild constipation; has not had BM in 3 days . Usually he is more regular. BM in the past 48 hours?: No Last Bowel Movement: 07/28/24 Depression/Anxiety: Jimenez shared that conversations discussing his diagnosis leave him feeling down. He has some anxiety about the future and what's coming. Fatigue/tiredness: increased fatigue Sleep: not assessed at this visit Cognitive function: at times feels memory is fading; has frustration with losing his train of thought in a conversation and is more forgetful Bladder: Ferris in place/PCN Constitutional: frail, cachectic Physical function: Pre-admission physical function, functional changes, and PPS: 70% Current physical function: 60% Medications: reviewed in eDH Scheduled: multivitamin with minerals 1 tablet Oral Daily oxyCODONE CR 10 mg Oral 2 times per day aspirin 81 mg Oral Daily ipratropium-albuteroL 3 mL Nebulization Q4H docusate sodium 100 mg Oral BID heparin (porcine) 5,000 Units Subcutaneous Q8H COOPER acetaminophen 975 mg Oral Q6H COOPER atorvastatin 20 mg Oral Daily budesonide-formoteroL 2 .Inhalation Inhalation BID And tiotropium 2 puff Inhalation Daily citalopram 20 mg Oral Daily escitalopram 20 mg Oral Daily at Noon loratadine 10 mg Oral Daily pantoprazole EC 40 mg Oral Daily polyethylene glycoL 17 g Oral Daily QUEtiapine 50 mg Oral BID traZODone 100 mg Oral Nightly lamoTRIgine 50 mg Oral BID lisinopriL 10 mg Oral Daily PRNs (including 24 hour usage 8a-8a): Oxycodone 5mg x5 = 37.5 OME Hydromorphone 2mg oral x2 = 16 OME Hydromorphone 0.5 mg IV x1 = 10 OME 24h OME: 63.5 OME (Not including 30 OME from procedural fentanyl in total 24hr OME calculation) Allergies as of 06/02/2024 - Review Complete 06/02/2024 Allergen Reaction Noted Simvastatin 02/24/2016 Tegretol [carbamazepine] 02/24/2016 PHYSICAL EXAMINATION Last value Range last 24 hrs Temperature Temp: 36.7 ??C (98.1 ??F) Temp: [36.6 ??C (97.9 ??F)-36.8 ??C (98.2 ??F)] Heart Rate Heart Rate: 88 Heart Rate: -- Blood Pressure BP: 113/59 BP: (108-139)/(58-74) Respiratory Rate Resp: 16 Resp: [16-18] SpO2 SpO2: 95 % SpO2: [93 %-95 %] General: frail, cachectic, awake and alert CV: RRR, no peripheral edema Resp: conversationally dyspneic, observed MEDEIROS during nursing supported ambulation evaluation, deep,intermittent exhalations through pursed lips, not on O2 during our conversation Abdomen: tenderness w/ light palpation throughout. Extremities: Warm and well purfused Diagnostic Studies: The following studies were reviewed, relevant results noted below: none Palliative Care Assessment: Jimenez Marin is a(n) 69 y.o. male from [facility] with newly diagnosed Muscle invasive bladdercancer, admitted for planned TURBT. Palliative care consulted for symptom management regarding cancer related pain and GOC discussions. Regarding goals of care, Jimenez has completed AD and COLST with primary palliative care team. Pleasesee documents in Media section of eD from 03/04/2024. After discussion of the case with Dr. Frye we were able to share medical updates concerning next steps, and prognosis. Regarding illness experience, understanding, and coping, Jimenez has a good understanding of his diagnosis of bladder cancer, and that his options moving forward are limited and most likely to be palliative focused. He understands that his prognosis could be short as one year. Jimenez's support system is limited to his roommate Erich. He didn't share any specific goals, but most looks forward to returning to [place]. He has palliative care follow up scheduled for 09/02. This inpatient palliative care team will provide warm hand off to the [facility] office upon discharge to ensure that prescriptions can be continued and follow up visit scheduled sooner if necessary. Regarding physical symptoms, Jimenez has cancer related back and flank pain. He reports that pain hadbeen worsening just prior to admission, but for a long period of time he had relief w/ her percocettaken twice daily (confirmed on PDMP). Prior to admission, his daily OME = 15. While inpatient, he was initially prescribed hydromorphone 2 mg PRN with additional oxycodone 5 mg PRN with a total of 63.5 OME. However, on our evaluation pain is not well controlled. Will recommend long acting opioid to cover pain at baseline, and allow for additional PRN throughout the day. Morphine considered, but not a great option given PCN and kidney function. Fentanyl patch also considered, but BMI of 13.71 may not provide adequate adipose tissue for absorption and his preadmission OME was quite low, that starting a fentanyl patch may provide too high a basal rate. Given that he has previously tolerated oxycodone, will recommend long acting OxyContin with PRN oxycodone available for breakthrough pain. Please see below for full recommendations. Palliative care will continue to follow and support Jimenez with coping and symptoms management. Recommendations: #Goals of care, Serious illness conversation -Ongoing C discussion with outpatient palliative care provider, Dr. Bethany Byrd, at [facility] ([phone]) -Based on documentation of their most recent discussion, Code Status is DNAR/accepting of time limited trial of intubation if necessary. Jimenez aware his Code Status was changed for this procedure. However, POLST not changed as consistent with wishes for care outside of this acute hospital stay. -POLST and AD completed at outpatient Palliative Care office visit on 03/04/2024 (Available in [facility] media section). #Serious illness-associated symptom recommendations #Cancer related pain; Bladder cancer - START Oxycontin 10 mg twice daily (start first dose tonight) - CONTINUE oxycodone 5 mg q4 PRN - STOP hydromorphone 2mg PRN - Palliative care will continue to follow and reassess tomorrow before providing recommendations for discharge. - Plan to prescribe 7-10 days of regiment at time of discharge, anticipate outpatient palliative care team will be able to support Jimenez as prescribers of opioid medication as it relates to cancer related pain. #Constipation-multifactorial including opioid induced - Continue scheduled PEG 17gm BID - Continue scheduled senna - Titrate PRN bowel meds to goal of BM every 1-2 days #Serious illness coping support recommendations -Jimenez shared that he may be open to volunteer visitors depending on his mood -Would benefit from Reiki v massage therapy for complex pain -Screened for spiritual care needs? No -Primary medicare coordinator: None; has some support from his roommate, Erich -Interdisciplinary Team members engaged: [] Palliative FINISHER WALLBOARD [employer] PLASTERBOARD; [] BIT involved; [x] Healing Arts; [] Creative Arts; [] Spiritual Care; [x] Volunteers; [] Child Life Advance Care Planning Summary: Was an advance directive completed during consult?: Not completed, advance directive already present Surrogate Decision Maker: Not Addressed Current code status: Attempt Cardiopulmonary Resuscitation - Inpatient Pre-arrest intubation permitted?: [] Yes; [] No, DNI Other pre-arrest preferences discussed?: None discussed Does patient have a POLST/MOLST: Has a POLST/COLST on file. Palliative Care Follow-up Plan: Medical team Nursing team Psychosocial Support Inpatient Anticipate ongoing engagement for GOC, pain management. Outpatient Explicitly offered follow-up?: No. Follow up scheduled with outpatient palliative care at [facility] on 09/02 I have reviewed the patient's case along with my assessment and recommendations collaboratively with my supervising Palliative faculty Dr. Fredrick Ritchie. Kristel Chung, DO Palliative care team pager #[phone] Associated attestation - Fredrick Ritchie MD - 08/01/2024 10:17 AM EST PALLIATIVE CARE ATTENDING STATEMENT: I have seen and examined this patient with Palliative Care fellow Dr. Chung and actively participated in the entire encounter. I have discussed the case and agree with the documented history, physical findings, assessment and plan of care/recommendations. Pertinent History: 69 yo single M with advanced COPD on O2, ASCVD, HTN, BPAD, h/o Tob use (quit ) and recently diagnosed bladder mass admitted 07/26/24 for TURBT procedure. Palliative Care consulted for support with symptoms and goals for care. As noted, we obtained records from [facility] where Jimenez has been seen for COPD (last visit in February predates recent cancer diagnosis), spoke with NING Bustos at this clinic, and spoke with Urology attending who performed TURBT, Dr. Dietrich. Major issues addressed: [x] Symptom management--reviewed pain regimen and PRN use; based on 24hr OME 63.5 and impression ofprimary team, nursing and our evaluation that pain is not ideally control and likely to persist we have recommended addition of long- acting opioid. While we would normally favor morphine or fentanyl patch, his very low BMI <14 makes the patch less idea (needs subcutaneous fat for absorption) andunclear accuracy of renal function based on very low muscle mass makes rotation to morphine more challenging. He is already on oxycodone so we have opted to recommend adding Oxycontin 10mg BID, whichwill cover about 50% of current needs. This can be titrated as an outpatient with PCP and/or Palliative Care provider. [x] Goals for care--Jimenez relayed his interest in considering any treatments that might help treat the cancer to improve quality of life/pain and more time. He has completed a POLST with Palliative Care in the past indicating preference to avoid aggressive resuscitation for cardiac arrest but openness to PRE-arrest intubation for respiratory failure. While he did not wish to engage about this nowin the setting of just learning of his diagnosis/prognosis, would continue to explore over time as the likelihood of benefit has certainly declined. He has had extensive conversations with Dr. Byrd(Palliative [facility] [place]) about trying to identify a surrogate and is okay with having one appointed if needed as he does not feel any family/friends would be appropriate. [x] Coping--While Jimenez endorses being very independent, he also shared a value for visitors/company. He shared insight the hearing difficult news is hard while also knowing that the information is helpful for planning. He has had bucket lists in the past but nothing right at this moment. Will continue to explore. Nair Recommendations: As detailed below--starting oxycontin, continuing oxycodone PRN, will considerother non-opoioid adjuvants, assuring bowel regimen. Will engage Volunteers and healing arts while in house. Follow up with both PCP and Palliative Care in [facility] would be ideal. Fredrick Ritchie MD Palliative Care ~80 minutes were spent over the course of the day on this patient encounter including time spent inchart review, assessment of and counseling with the patient, coordination with the consulting service, coordination with palliative IDT members and in documentation. * Consult Note - Cece Fowler RN - 07/31/2024 8:55 AM ESTSummary: VAS Rounding During VAS Purposeful Rounding, an assessment of your patient's venous access was performed fby theVascular Access Service. The following tasks were performed if needed and communicated to the bedside RN Choose all that apply: [] PIV(s) checked for patency if daily need for flush needs to be performed [] CVAD was checked for patency if daily flush needs to be performed [x] IV tubing clamped or capped if needed [] Visual inspection of your patient's central line dressing integrity [] Review of indications for vascular access [] A photo was taken of your patient's central line [x] Visual inspection of your patient's IV dressing integrity [x] Other. Mesh stocking given While rounding an intervention was needed and communicated to the bedside RN Choose all that apply: [] Nonocclusive IV dressing addressed [] Nonocclusive CVAD dressing (please identify type of line) [] Infusion site leaking [] IV not patent and removed [] IV not indicated [] IV placed [] IV restarted [] Implanted Port, PICC or ML dressing changed if needed (either PRN or weekly) [] Other * Plan of Care - Anya Hodge RN - 07/30/2024 6:34 PM EST Problem: Adult Inpatient Plan of Care Goal: Plan of Care Review Outcome: Ongoing (Interventions Implemented as Appropriate) Flowsheets (Taken 07/30/2024 1832) Plan of Care Reviewed With: patient Progress: improving Note: Pt off unit for neph tube placement this shift. Ferris catheter maintained. Both ferris and neph tube with red urine, no clots observed. Pt reports pain control adequate with scheduled and prn meds. Rounding maintained. * Initial Assessments - Fanta Gray MSW - 07/30/2024 11:15 AM EST Office of Care Management Initial Assessment HARMONY Melo reviewed record and discussed patient with Care Team. Source of Information: Team, bedside nurse, medical record, and Patient Introduced self/reviewed role; services accepted. Admitted From: Home Reason for Hospitalization: SOB, biospy appointment Past medical History: History reviewed. No pertinent past medical history. Hospitalizations Within the Past 30 Days: no previous admission in last 30 days Current Decision-Making Capacity: Self If AD's have not been completed the following surrogate would be surrogate decision maker per [place] surrogate decision making law. (Only good for 180 days): Erich Hawley Any patient receiving care in [place] must abide by ID law. The hierarchy for surrogate decision making is: (a) Patient???s spouse or civil union partner unless there is a divorce proceeding, separation agreement, or restraining order limiting that person???s relationship with the patient. (b) Any adult son or daughter of the patient. (c) Either parent of the patient. (d) Any adult brother or sister of the patient. (e) Any adult grandchild of the patient. (f) Any grandparent of the patient. (g) Any adult aunt, uncle, niece, or nephew of the patient. (h) A close friend of the patient. (i) The agent with financial power of research attorney or a conservator appointed in accordance with RSA 464-A. (j) The guardian of the patient???s estate. Advance Care Planning: Attempt Cardiopulmonary Resuscitation - Inpatient <no information> -Advanced Directive: No, declines (Pt states he has done an AD with Palliative Care, though cannot recall exactly with whom and from what agency. It was a woman, in [facility]. Contacted pt's PCP to get more info. Left message asking for call back.) Current Coping/Education/Information Needs: Pt is able to make needs known. Feeling anxious about next steps; my bladder's full of cancer. Current Functional Ability: Independent Functional Status Prior to Admission: Independent Prior ADLs & IADLs: Assistance Needed with ADLs & IADLs Groceries: Shops Independently, needs assist to carry groceries in Home Environment: Others in the home: roomate(s). Current Living Arrangements: mobile home. Accessibility Concerns:4 SARA, otherwise all on one level. In the last 12 months, was there a time when you were not able to pay the mortgage or rent on time?: No In the past 12 months, how many times have you moved where you were living?: 0 At any time in the past 12 months, were you homeless or living in a custodial (including now)?: No In the past 12 months has the electric, gas, oil, or water company threatened to shut off services in your home?: Yes (Pt states he uses electric heat and was $3000 behind on his heating bills last year; was helped by a local agency, can't recall who. States his landlord will be putting a furnace in to reduce costs) Within the past 12 months, you worried that your food would run out before you got the money to buymore.: Never true Within the past 12 months, the food you bought just didn't last and you didn't have money to get more.: Never true Resource / Environmental Concerns: Resource/Environmental Concerns: environmental Environment Concerns: other (see comments) [place]; however states he has had no issues with transportation ([facility])) Home Accessibility Concerns: stairs to enter home In the past 12 months, has lack of transportation kept you from medical appointments or from getting medications?: No In the past 12 months, has lack of transportation kept you from meetings, work, or from getting things needed for daily living?: No Current DME: none (States he has a cane at home but doesn't use/need it) Home Address confirmed as: [address] [facility] [address] [facility] [address] Social & Family Supports: All names listed below confirmed with patient as current and correct Extended Emergency Contact Information Primary Emergency Contact: Erich Hawley Relation: Friend Current Care Provided by: self Provides Primary Care For: no one Caregiver if needed: none Quality of Family relationships: non-existent Community Resources being provided currently: other (see comments) (Pt states he has seen Palliative Care dr but can't recall name. Has used Meals on Wheels in past but states they can't get up the road to his house) Behavioral Health History: None noted Substance Use/Abuse confirmed: Social History Tobacco Use Smoking Status Former Current packs/day: 0.25 Types: Cigarettes Smokeless Tobacco Never Tobacco Comments Quit 4 months ago per pt. In the past year have you used an illegal drug or used a prescription medication for non-medical reasons?: No 0 No problems reported 1-2 Low level 3-5 Moderate level 6-8 Substantial level 9- 10 Severe level In the past year have you had 5 or more drinks a day containing alcohol?: No 0 to 7 points: Low risk 8 to 15 points: Medium risk 16 to 19 points: High risk 20 to 40 points: Addiction likely Other Pertinent/Service Specific Information: None noted Health/Prescription Coverage: Primary Insurance: MEDICARE Payor: MEDICARE / Plan: MEDICARE PART A & B / Product Type: *No Product type* / Secondary Insurance: MEDICAID [place] ONLY if patient has Medicare A&B - Does this patient have secondary insurance?: Yes ; Prescription Coverage: Preferred Pharmacy: No Pharmacies Listed Status: Patient is a : unable to assess Primary Care Provider confirmed: Cintia Jones, MASTER CONTROL OPERATOR [phone] Patient/Caregiver Goals of Treatment: Recover and return home. Pt states he hopes to just get backinto the swing of things. Potential Needs for Transition of Care: none Agency Referrals: Not Applicable Transportation: no concerns (Pt uses [facility] states they are able to get him everywhere he needs to go) Transportation Anticipated: health plan transportation (Pt uses [facility] ([facility] Concerns to be Addressed: lack of sufficient support system Assessment: Patient is admitted to surgery-urology service for bladder tumor Per H&P, Jimenez Marin is a 69 y.o. male with a history of COPD, NV s/p stents, recently quitsmoking, gross hematuria, and bladder mass seen on a CT scan with office cystoscopy on 06/02/24 notable for a large sessile appearing left and right sided bladder wall/neck mass(es) noted. There was amass on the trigone and UO not visualized. He presents for TURBT/RPG, possible stent vs PCN. Pt lives with a roommate in a trailer in [place] [facility]. [place] that his home is not easily accessible via road; however he states he has no trouble getting where he needs to be via [facility] [employer] ([facility] Pt states he is independent with ADLs, however his friend/roommate Erich needs to help him carry groceries into his house. Pt states he has a few friends locally but otherwise has no family support. Pt states I've got everything I need when asked about connections to resources/local agencies. Plan going forward: Pt to IR for catheter placement. D/c home today vs. Tomorrow. Care Management team will continue to follow and assist with discharge planing and coordination of care as indicated. HARMONY Cotter, PAINT BOOTH OPERATOR Service Technician [employer] Sales Rep Office of Care Management [phone] * Op Note - Jocy Etienne MD - 07/29/2024 2:10 PM EST [facility] Operative Note Patient Name: Jimenez Marin : [id number] MR#: [id number] Case Date: 06/24/2024 - 07/29/2024 Surgeon: Surgeons and Role: * Umu Frye MD - Primary * Jocy Etienne MD - Resident - Assisting * Tima Borden MD - Resident - Assisting Preoperative diagnosis: bladder tumor Postoperative diagnosis: bladder tumor Procedure(s) (LRB): CYSTO, RESECTION BLADDER TUMOR, GREATER THAN 5.0CM (WRVU 7.5) (N/A) EUA RECTUM (WRVU 7.56) (N/A) Findings: - large muscle invasive tumor along trigone, left ureteral orifice not visualized, right ureteral orifice unroofed with papillary tumor extruding - total 8.5cm resection - EUA with mass on the left - 22Fr 2-way Ferris with 10cc in balloon Findings were as follows (per Chandan 2016): 1. Number of tumors: 1 2. Size of the largest tumor: 8.5 cm 3. Characteristics of the tumor: nodular broad-based 4. Resection for recurrent vs primary tumor: primary 5. Concern for CIS: no 6. Clinical tumor stage: cT3 7. Bimanual exam under anesthesia: done with findings: left mass 8. Visually complete resection: no 9. Visualized detrusor muscle in resection base: yes 10. Visual evaluation for perforation: Near perforation 2/2 necrotic tumor at trigone 11. Separate biopsy sent from resection bed: no Plan: - L PCN placement - staging CT CAP - Palliative Care consult - SW consult - consider palliative radiation Anesthesia: Spinal Estimated Blood Loss: 20cc Specimens removed during surgery: ID Type Source Tests Collected by Time Destination 1 : Bladder tumor Tissue Urinary Bladder SURGICAL PATHOLOGY Umu Frye MD 07/29/2024 1450 Drains: Ferris Surgical Closure: cysto Disposition: awakened from anesthesia, extubated and taken to the recovery room in a stable condition, having suffered no apparent untoward event. Condition: doing well without problems (Please see the Surgical Encounter Summary for any Implant and Specimen details pertinent to this patient.) HPI/Surgical Indications: Jimenez Marin is a 69 y.o. male with a history of COPD, NV s/p stents, recently quit smoking, gross hematuria, and bladder mass seen on a CT scan with office cystoscopy on 06/02/24 notable for a large sessile appearing left and right sided bladder wall/neck mass(es) noted. There was a mass on the trigone and UO not visualized. He presents for TURBT/RPG, possible stent vs PCN. He reports chest pain that is chronic. He is clearly SOB at baseline and states that this is the way his breathing is. He is on home oxygen. He also sees a palliative care physician in [facility],but doesn't know her name and doesn't know why he is seeing her. When asked about his goals in life he states he is unsure and doesn't want to think about it. He does have ongoing hematuria, no clots. He does have difficulties emptying his bladder and bladder pain/ left flank pain. He can take care of his ADL at home Goes shopping once a month. Lives with a room mate who also is a friend. He doesn't know the phone number of his friend. Anticoagulation: ASA81 and Plavix - continue ASA81, Plavix held x7 days. Procedure Description: The patient was identified in the pre-operative holding area. Consent was verified. The patient wastaken to the operating room and placed supine on the operating table. Spinal anesthesia was administered. The patient was then moved to the lithotomy position and prepped and draped in the usual sterile fashion. A timeout was performed involving all members of the OR team confirming the patient's identity and planned procedure. Preoperative antibiotics were administered. The meatus was slightly tight requiring dilation. A 26Fr resectoscope was inserted under direct vision. Visual inspection of the bladder revealed a large sessile tumor over the trigone. Neither ureteral orifice was readily visualized. The majority of the tumor was resected, which was clearly involving the muscle fibers. There was note of a large necrotic area in the midline/left trigone. The right ureteral orifice was unroofed andpapillary tumor was extruding. The left ureteral orifice was not visualized. All specimens were sent to Pathology. Hemostasis was achieved using loop electrocautery and the button. Inspection of the resection sites revealed no active hemorrhage. The cystoscope was removed. Exam under anesthesia wasconcerning for a left mass. A 22Fr Ferris catheter was inserted. Manual irrigation returned light pink output. The patient tolerated the procedure well. The patient was taken to the recovery area in stable condition. Dr. Frye, the attending surgeon, was present for the entire procedure. Surgical Infection Prevention Bundle Used? N/A Jocy Etienne MD 07/29/2024 Associated attestation - Umu Frye MD - 07/29/2024 4:45 PM EST Attestation: Case Date: 06/24/2024 - 07/29/2024 Attending: Attestation: Case Date: 06/24/2024 - 07/29/2024 I was present and I participated during the critical and nair portions of this procedure; and, I or Dr. Frye was immediately available during the remainder of the procedure. I interpret the critical and nair portions of this prcedure to have been entire procedure, except for about 10 minutes whenwe fulgurated the base of the tumor UMU FRYE MD 07/29/2024 documented in this encounter Plan of Treatment Upcoming Encounters Date Type Department Care Team (Late st Contact Info) Description 08/07/2024 1:30 PM EST [place] [phone] 08/07/2024 3:30 PM EST [place] [phone] Pending Results Name Type Priority Associated Diagnoses Date /Time Surgical Pathology Pathology/Cytolo gy Routine 07/29/2024 2:50 PM EST Scheduled Orders Name Type Priority Associated Diagnoses Order Schedule Surgical Pathology Pathology/Cytolo gy Routine Release Upon Ordering for 1 Occurrences starting 07/29/2024, 1 completed IR Nephrostomy Tube Exchange Left Imaging Routine Bladder tumor Expected: 10/30/2024, Expires: 11/27/2024 Scheduled Referrals Name Type Priority Associated Diagnoses Orde r Schedule Referral to Radiation Oncology Outpatient Referral Routine Bladder tumor Ordered: 07/31/2024 Referral to Home Health Outpatient Referral Routine Unsteady gait Ordered: 08/02/2024 documented as of this encounter Procedures Procedure Name Priority Date/Time Associated Diagnosis Comments CBC (WITH DIFF) Routine 08/02/2024 4:52 AM EST BASIC METABOLIC PANEL Routine 08/02/2024 4:52 AM EST CBC (WITH DIFF) Routine 08/01/2024 5:36 AM EST BASIC METABOLIC PANEL Routine 08/01/2024 5:36 AM EST CBC (WITH DIFF) Routine 07/31/2024 5:06 AM EST BASIC METABOLIC PANEL Routine 07/31/2024 5:06 AM EST IR NEPHROSTOMY TUBE PLACEMENT PERCUTANEOUS LEFT Routine 07/30/2024 1:10 PM EST URINE CULTURE Routine 07/30/2024 12:45 PM EST CBC (WITH DIFF) Routine 07/30/2024 5:03 AM EST BASIC METABOLIC PANEL Routine 07/30/2024 5:[address] CHEST ABDOMEN PELVIS W CONTRAST (GENERIC) Routine 07/30/2024 2:50 AM EST Rectum Surgery Procedure Unlisted ([id number]) 07/29/2024 1:50 PM EST bladder tumor Cystourethroscopy, Fulgur >5Cm Lesn ([id number]) 07/29/2024 1:50 PM EST bladder tumor EKG 12-LEAD Routine 07/29/2024 1:16 PM EST Chest pain, unspecified type documented in this encounter Results * (ABNORMAL) Basic Metabolic Panel (08/02/2024 4:52 AM EST) Glucose 146 65 - 199 mg/dL 08/02/2024 5:35 AM [facility] Comment:Glucose Concentratio n >=200 mg/dL plus symptoms is consistent with Diabetes Mellitus. Blood Urea Nitrogen 18 10 - 20 mg/dL 08/02/2024 5:35 AM [facility] Creatinine 0.92 0.80 - 1.50 mg/dL 08/02/2024 5:35 AM [facility] Sodium 133(L) 135 - 145 mMol/L 08/02/2024 5:35 AM [facility] Potassium 4.1 3.5 - 5.0 mMol/L 08/02/2024 5:35 AM [facility] Chloride 96(L) 98 - 107 mMol/L 08/02/2024 5:35 AM [facility] Carbon Dioxide 28 22 - 31 mMol/L 08/02/2024 5:35 AM [facility] Anion Gap 9 5 - 15 mMol/L 08/02/2024 5:35 AM [facility] Calcium 9.9 8.5 - 10.5 mg/dL 08/02/2024 5:35 AM [facility] Est Glomerular Filtration Rate - Male 91 mL/min/1. 73 m?? 08/02/2024 5:35 AM [facility] Comment: This patient's estimated GFR was [...] 4:52 AM EST 08/02/2024 5:03 AM EST Umu Frye MD CHEMISTRY ORDERABL ES [facility] [place] [address] * (ABNORMAL) CBC (with Diff) (08/02/2024 4:52 AM EST) White Blood Cell 10.77(H) 4.00 - 9.50 x10(3)/mc L 08/02/2024 5:11 AM [facility] Red Blood Cell 3.69(L) 4.58 - 5.54 x10(6)/mc L 08/02/2024 5:11 AM [facility] Hemoglobin 10.8(L) 13.7 - 16.5 g/dL 08/02/2024 5:11 AM [facility] Hematocrit 33.7(L) 40.5 - 48.5 % 08/02/2024 5:11 AM [facility] Mean Cell Volume 91.3 82.9 - 93.1 fL 08/02/2024 5:11 AM [facility] Mean Cell Hemoglobin 29.3 27.5 - 32.1 pg 08/02/2024 5:11 AM [facility] Mean Cell Hemoglobin Concentration 32.0 32.0 - 35.7 g/dL 08/02/2024 5:11 AM [facility] Platelet 297 145 - 357 x10(3)/mc L 08/02/2024 5:11 AM [facility] Mean Platelet Volume 9.4 7.6 - 12.9 fL 08/02/2024 5:11 AM [facility] RDW Standard Deviation 53.3(H) 36.0 - 45.0 fL 08/02/2024 5:11 AM [facility] RDW coefficient of variation 15.9(H) 11.4 - 13.8 % 08/02/2024 5:11 AM [facility] NRBC% auto 0.0 % 08/02/2024 5:11 AM [facility] NRBC Absolute <0.01 <0.01 x10(3)/mc L 08/02/2024 5:11 AM [facility] Neutrophil % 75.2 % 08/02/2024 5:11 AM [facility] Neutrophil Absolute (ANC) - Automated 8.09(H) 1.70 - 6.10 x10(3)/mc L 08/02/2024 5:11 AM [facility] Lymph % 9.0 % 08/02/2024 5:11 AM [facility] Lymph Absolute 0.97 0.90 - 3.20 x10(3)/mc L 08/02/2024 5:11 AM [facility] Monocyte % 9.0 % 08/02/2024 5:11 AM [facility] Monocyte Absolute 0.97(H) 0.30 - 0.90 x10(3)/mc L 08/02/2024 5:11 AM [facility] Eos % 5.5 % 08/02/2024 5:11 AM [facility] Eos Absolute 0.59(H) 0.00 - 0.40 x10(3)/mc L 08/02/2024 5:11 AM [facility] Basophil % 0.6 % 08/02/2024 5:11 AM [facility] Baso Absolute 0.07 0.00 - 0.10 x10(3)/mc L 08/02/2024 5:11 AM [facility] Immature Gran % 0.7 % 5:11 AM [facility] Immature Gran Absolute 0.08(H) 0.00 - 0.04 x10(3)/mc L 08/02/2024 5:11 AM [facility] Blood VENOUS BLOOD SPECIMEN / Unknown Venipuncture / Unknown 08/02/2024 4:52 AM EST 08/02/2024 5:03 AM EST Umu Frye MD HEMATOLOGY ORDERAB LES [facility] [place] [address] * (ABNORMAL) Basic Metabolic Panel (08/01/2024 5:36 AM EST) Glucose 133 65 - 199 mg/dL 08/01/2024 6:37 AM [facility] Comment:Glucose Concentratio n >=200 mg/dL plus symptoms is consistent with Diabetes Mellitus. Blood Urea Nitrogen 21(H) 10 - 20 mg/dL 08/01/2024 6:37 AM [facility] Creatinine 1.04 0.80 - 1.50 mg/dL 08/01/2024 6:37 AM [facility] Sodium 133(L) 135 - 145 mMol/L 08/01/2024 6:37 AM [facility] Potassium 4.2 3.5 - 5.0 mMol/L 08/01/2024 6:37 AM [facility] Chloride 95(L) 98 - 107 mMol/L 08/01/2024 6:37 AM [facility] Carbon Dioxide 29 22 - 31 mMol/L 08/01/2024 6:37 AM [facility] Anion Gap 9 5 - 15 mMol/L 08/01/2024 6:37 AM [facility] Calcium 9.4 8.5 - 10.5 mg/dL 08/01/2024 6:37 AM [facility] Est Glomerular Filtration Rate - Male 78 mL/min/1. 73 m?? 08/01/2024 6:37 AM EST [facility] Comment: This patient's estimated GFR was [...] BLOOD SPECIMEN / Unknown Venipuncture / Unknown 08/01/2024 5:36 AM EST 08/01/2024 6:00 AM EST Umu Frye MD CHEMISTRY ORDERABL ES [facility] [place] [address] * (ABNORMAL) CBC (with Diff) (08/01/2024 5:36 AM EST) White Blood Cell 12.60(H) 4.00 - 9.50 x10(3)/mc L 08/01/2024 6:16 AM EST [facility] Red Blood Cell 3.44(L) 4.58 - 5.54 x10(6)/mc L 08/01/2024 6:16 AM EST [facility] Hemoglobin 10.2(L) 13.7 - 16.5 g/dL 08/01/2024 6:16 AM EST [facility] Hematocrit 31.5(L) 40.5 - 48.5 % 08/01/2024 6:16 AM EST [facility] Mean Cell Volume 91.6 82.9 - 93.1 fL 08/01/2024 6:16 AM EST [facility] Mean Cell Hemoglobin 29.7 27.5 - 32.1 pg 08/01/2024 6:16 AM [facility] Mean Cell Hemoglobin Concentration 32.4 32.0 - 35.7 g/dL 08/01/2024 6:16 AM [facility] Platelet 316 145 - 357 x10(3)/mc L 08/01/2024 6:16 AM [facility] Mean Platelet Volume 9.2 7.6 - 12.9 fL 08/01/2024 6:16 AM [facility] RDW Standard Deviation 52.8(H) 36.0 - 45.0 fL 08/01/2024 6:16 AM [facility] RDW coefficient of variation 15.7(H) 11.4 - 13.8 % 08/01/2024 6:16 AM [facility] NRBC% auto 0.0 % 08/01/2024 6:16 AM [facility] NRBC Absolute <0.01 <0.01 x10(3)/mc L 08/01/2024 6:16 AM [facility] Neutrophil % 76.1 % 08/01/2024 6:16 AM [facility] Neutrophil Absolute (ANC) - Automated 9.59(H) 1.70 - 6.10 x10(3)/mc L 08/01/2024 6:16 AM [facility] Lymph % 9.4 % 08/01/2024 6:16 AM [facility] Lymph Absolute 1.19 0.90 - 3.20 x10(3)/mc L 08/01/2024 6:16 AM [facility] Monocyte % 9.5 % 08/01/2024 6:16 AM [facility] Monocyte Absolute 1.20(H) 0.30 - 0.90 x10(3)/mc L 08/01/2024 6:16 AM [facility] Eos % 4.0 % 08/01/2024 6:16 AM [facility] Eos Absolute 0.50(H) 0.00 - 0.40 x10(3)/mc L 08/01/2024 6:16 AM EST [facility] Basophil % 0.5 % 08/01/2024 6:16 AM EST [facility] Baso Absolute 0.06 0.00 - 0.10 x10(3)/mc L 08/01/2024 6:16 AM EST [facility] Immature Gran % 0.5 % 6:16 AM [facility] Immature Gran Absolute 0.06(H) 0.00 - 0.04 x10(3)/mc L 08/01/2024 6:16 AM [facility] Blood VENOUS BLOOD SPECIMEN / Unknown Venipuncture / Unknown 08/01/2024 5:36 AM EST 08/01/2024 6:00 AM EST Umu Frye MD HEMATOLOGY ORDERAB LES Performing Organization Address City/State/[facility] Co de Phone Number [facility] [place] [address] * (ABNORMAL) Basic Metabolic Panel (07/31/2024 5:06 AM EST) Glucose 154 65 - 199 mg/dL 07/31/2024 6:00 AM [facility] Comment:Glucose Concentratio n >=200 mg/dL plus symptoms is consistent with Diabetes Mellitus. Blood Urea Nitrogen 17 10 - 20 mg/dL 07/31/2024 6:00 AM [facility] Creatinine 1.02 0.80 - 1.50 mg/dL 07/31/2024 6:00 AM [facility] Sodium 135 135 - 145 mMol/L 07/31/2024 6:00 AM [facility] Potassium 4.6 3.5 - 5.0 mMol/L 07/31/2024 6:00 AM [facility] Chloride 97(L) 98 - 107 mMol/L 07/31/2024 6:00 AM [facility] Carbon Dioxide 28 22 - 31 mMol/L 07/31/2024 6:00 AM EST [facility] Anion Gap 10 5 - 15 mMol/L 07/31/2024 6:00 AM EST [facility] Calcium 9.5 8.5 - 10.5 mg/dL 07/31/2024 6:00 AM EST [facility] Est Glomerular Filtration Rate - Male 80 mL/min/1. 73 m?? 07/31/2024 6:00 AM EST [facility] Comment: This patient's estimated GFR was [...] BLOOD SPECIMEN / Unknown Venipuncture / Unknown 07/31/2024 5:06 AM EST 07/31/2024 5:26 AM EST Umu Frye MD CHEMISTRY ORDERABL ES [facility] [place] [address] * (ABNORMAL) CBC (with Diff) (07/31/2024 5:06 AM EST) White Blood Cell 16.51(H) 4.00 - 9.50 x10(3)/mc L 07/31/2024 5:31 AM EST [facility] Red Blood Cell 3.78(L) 4.58 - 5.54 x10(6)/mc L 07/31/2024 5:31 AM EST [facility] Hemoglobin 11.0(L) 13.7 - 16.5 g/dL 07/31/2024 5:31 AM EST [facility] Hematocrit 34.6(L) 40.5 - 48.5 % 07/31/2024 5:31 AM [facility] Mean Cell Volume 91.5 82.9 - 93.1 fL 07/31/2024 5:31 AM [facility] Mean Cell Hemoglobin 29.1 27.5 - 32.1 pg 07/31/2024 5:31 AM [facility] Mean Cell Hemoglobin Concentration 31.8(L) 32.0 - 35.7 g/dL 07/31/2024 5:31 AM [facility] Platelet 322 145 - 357 x10(3)/mc L 07/31/2024 5:31 AM [facility] Mean Platelet Volume 9.0 7.6 - 12.9 fL 07/31/2024 5:31 AM [facility] RDW Standard Deviation 51.8(H) 36.0 - 45.0 fL 07/31/2024 5:31 AM [facility] RDW coefficient of variation 15.6(H) 11.4 - 13.8 % 07/31/2024 5:31 AM [facility] NRBC% auto 0.0 % 07/31/2024 5:31 AM [facility] NRBC Absolute <0.01 <0.01 x10(3)/mc L 07/31/2024 5:31 AM [facility] Neutrophil % 83.4 % 07/31/2024 5:31 AM [facility] Neutrophil Absolute (ANC) - Automated 13.77(H) 1.70 - 6.10 x10(3)/mc L 07/31/2024 5:31 AM [facility] Lymph % 6.1 % 07/31/2024 5:31 AM [facility] Lymph Absolute 1.00 0.90 - 3.20 x10(3)/mc L 07/31/2024 5:31 AM [facility] Monocyte % 8.2 % 07/31/2024 5:31 AM [facility] Monocyte Absolute 1.36(H) 0.30 - 0.90 x10(3)/mc L 07/31/2024 5:31 AM EST [facility] Eos % 1.4 % 07/31/2024 5:31 AM EST [facility] Eos Absolute 0.23 0.00 - 0.40 x10(3)/mc L 07/31/2024 5:31 AM EST [facility] Basophil % 0.4 % 07/31/2024 5:31 AM EST [facility] Baso Absolute 0.07 0.00 - 0.10 x10(3)/mc L 07/31/2024 5:31 AM EST [facility] Immature Gran % 0.5 % 5:31 AM [facility] Immature Gran Absolute 0.08(H) 0.00 - 0.04 x10(3)/mc L 07/31/2024 5:31 AM EST [facility] Blood VENOUS BLOOD SPECIMEN / Unknown Venipuncture / Unknown 07/31/2024 5:06 AM EST 07/31/2024 5:26 AM EST Umu Frye MD HEMATOLOGY ORDERAB LES Performing Organization Address [facility]/State/[facility] Co de Phone Number [facility] [place] [phone] * IR Nephrostomy Tube Placement Percutaneous Left [...] which were correct. The patient was positioned [id number] on the procedure table. ??The Left flank [...] Dr. Ugarte, was present throughout the procedure. Umu Frye MD IMG IR ORDERABLES * Urine culture (07/30/2024 12:45 PM EST) Urine Culture No growth 08/01/2024 7:48 AM [facility] Urine URINE SPECIMEN FROM NEPHROSTOMY TUBE / Unknown Non Blood Collection / Unknown 07/30/2024 12:45 PM EST 07/30/2024 2:05 PM EST Jamin Ugarte MD MICROBIOLOGY - GENER AL ORDERABLES [facility] [place] [address] * (ABNORMAL) Basic Metabolic Panel (07/30/2024 5:03 AM EST) Glucose 119 65 - 199 mg/dL 07/30/2024 6:17 AM [facility] Comment:Glucose Concentratio n >=200 mg/dL plus symptoms is consistent with Diabetes Mellitus. Blood Urea Nitrogen 18 10 - 20 mg/dL 07/30/2024 6:17 AM [facility] Creatinine 0.82 0.80 - 1.50 mg/dL 07/30/2024 6:17 AM [facility] Sodium 134(L) 135 - 145 mMol/L 07/30/2024 6:17 AM [facility] Potassium 4.2 3.5 - 5.0 mMol/L 07/30/2024 6:17 AM [facility] Chloride 95(L) 98 - 107 mMol/L 07/30/2024 6:17 AM [facility] Carbon Dioxide 29 22 - 31 mMol/L 07/30/2024 6:17 AM [facility] Anion Gap 10 5 - 15 mMol/L 07/30/2024 6:17 AM [facility] Calcium 9.4 8.5 - 10.5 mg/dL 07/30/2024 6:17 AM [facility] Est Glomerular Filtration Rate - Male 96 mL/min/1. 73 m?? 07/30/2024 6:17 AM [facility] Comment: This patient's estimated GFR was [...] BLOOD SPECIMEN / Unknown Venipuncture / Unknown 07/30/2024 5:03 AM EST 07/30/2024 5:49 AM EST Umu Frye MD CHEMISTRY ORDERABL ES [facility] [place] [address] * (ABNORMAL) CBC (with Diff) (07/30/2024 5:03 AM EST) White Blood Cell 11.30(H) 4.00 - 9.50 x10(3)/mc L 07/30/2024 6:02 AM [facility] Red Blood Cell 3.85(L) 4.58 - 5.54 x10(6)/mc L 07/30/2024 6:02 AM [facility] Hemoglobin 11.5(L) 13.7 - 16.5 g/dL 07/30/2024 6:02 AM [facility] Hematocrit 34.2(L) 40.5 - 48.5 % 07/30/2024 6:02 AM [facility] Mean Cell Volume 88.8 82.9 - 93.1 fL 07/30/2024 6:02 AM [facility] Mean Cell Hemoglobin 29.9 27.5 - 32.1 pg 07/30/2024 6:02 AM [facility] Mean Cell Hemoglobin Concentration 33.6 32.0 - 35.7 g/dL 07/30/2024 6:02 AM [facility] Platelet 342 145 - 357 x10(3)/mc L 07/30/2024 6:02 AM [facility] Mean Platelet Volume 9.0 7.6 - 12.9 fL 07/30/2024 6:02 AM [facility] RDW Standard Deviation 49.6(H) 36.0 - 45.0 fL 07/30/2024 6:02 AM [facility] RDW coefficient of variation 15.3(H) 11.4 - 13.8 % 07/30/2024 6:02 AM [facility] NRBC% auto 0.0 % 07/30/2024 6:02 AM [facility] NRBC Absolute <0.01 <0.01 x10(3)/mc L 07/30/2024 6:02 AM [facility] Neutrophil % 78.6 % 07/30/2024 6:02 AM [facility] Neutrophil Absolute (ANC) - Automated 8.87(H) 1.70 - 6.10 x10(3)/mc L 07/30/2024 6:02 AM [facility] [facility] Lymph % 8.9 % 07/30/2024 6:02 AM [facility] Lymph Absolute 1.01 0.90 - 3.20 x10(3)/mc L 07/30/2024 6:02 AM [facility] Monocyte % 8.9 % 07/30/2024 6:02 AM [facility] Monocyte Absolute 1.01(H) 0.30 - 0.90 x10(3)/mc L 07/30/2024 6:02 AM [facility] Eos % 2.7 % 07/30/2024 6:02 AM [facility] Eos Absolute 0.30 0.00 - 0.40 x10(3)/mc L 07/30/2024 6:02 AM [facility] Basophil % 0.5 % 07/30/2024 6:02 AM [facility] Baso Absolute 0.06 0.00 - 0.10 x10(3)/mc L 07/30/2024 6:02 AM EST [facility] Immature Gran % 0.4 % 6:02 AM EST [facility] Immature Gran Absolute 0.05(H) 0.00 - 0.04 x10(3)/mc L 07/30/2024 6:02 AM EST [facility] Blood VENOUS BLOOD SPECIMEN / Unknown Venipuncture / Unknown 07/30/2024 5:03 AM EST 07/30/2024 5:50 AM EST Umu Frye MD HEMATOLOGY ORDERAB LES [facility] [place] [address] * CT Chest Abdomen Pelvis w Contrast (Generic) (07/30/2024 2:50 AM EST) WORKSTATION ID [id number] DH RAD Anatomical Region Laterality Modality Abdomen, Pelvis Computed Tomogra phy Impressions 07/30/2024 7:42 AM EST 1. Although decompressed by Ferris catheter, there is asymmetric bladder wall thickening [...] who have questions please contact the health day care aide that requested your imaging first. ? Electronically signed by: Demetrius Washington [facility] ([phone]), at 07/30/2024 7:42 AM Narrative 07/30/2024 7:42 AM EST EXAMINATION: CT [...] kidney is unremarkable. Bladder: Although decompressed by Ferris catheter, there is abnormal bladder wall thickening [...] right kidney isunremarkable. Bladder: Although decompressed by Ferris catheter, there is abnormalbladder wall thickening more [...] acute bonyabnormality. IMPRESSION 1. Although decompressed by Ferris catheter, there is asymmetric bladderwall thickening more [...] patients who have questions please contactthe health day care aide that requested your imaging first. Electronically signed by: Demetrius Washington [facility]([phone]), at 07/30/2024 7:42 AM Umu Frye MD IMG CT ORDERABLES * EKG 12 Lead (07/29/2024 1:16 PM EST) Ventricular rate 79 BPM MUSE SYSTEM Atrial Rate 79 BPM MUSE SYSTEM P-R Interval 120 ms MUSE SYSTEM QRS Duration 92 ms MUSE SYSTEM Q-T Interval 400 ms MUSE SYSTEM QTC Calculated (Bezet) 458 ms MUSE SYSTEM Calculated P [place] 7 degrees MUSE SYSTEM Calculated R [place] 70 degrees MUSE SYSTEM Calculated T [place] 88 degrees MUSE SYSTEM INTERPRETATION Normal sinus rhythm T wave abnormality, consider lateral ischemia Abnormal ECG When compared with ECG of 15-JUN-2018 10:36, T wave inversion now evident in Anterolateral leads Confirmed by MD Staci, Kev ([id number]) on 07/29/2024 4:00:12 PM MUSE SYSTEM 07/29/2024 1:16 PM EST 07/29/2024 4:00 PM EST Robb Velasquez MD ECG ORDERABLES MUSE SYSTEM documented in this encounter Visit Diagnoses Not on filedocumented in this encounter Admitting Diagnoses Diagnosis 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 - Unless otherwise specified, when ordered PRN for pain, acetaminophen should be given first if other PRN pain medications are ordered., Routine Given 08/02/2024 10:44 AM EST 975 mg Given 08/02/2024 2:42 AM EST 975 mg Given 08/01/2024 9:02 PM EST 975 mg aspirin chewable tablet 81 mg 81 mg, Oral, DAILY, First dose on Sun07/30/24 at 1430, Until Discontinued, Routine Given 08/02/2024 10: 44 AM EST 81 mg Given 08/01/2024 9:48 AM EST 81 mg Given 07/31/2024 8:56 AM EST 81 mg atorvastatin (Lipitor) tablet 20 mg 20 mg, Oral, DAILY, First dose on Sun07/29/24 at 1745, Until Discontinued, Routine Given 08/02/2024 10: 45 AM EST 20 mg Given 08/01/2024 9:48 AM EST 20 mg Given 07/31/2024 8:55 AM EST 20 mg bisacodyL (Dulcolax) suppository 10 mg 10 mg, Rectal, DAILY PRN, Starting on Sun07/29/24 at 1531, Until Sun08/02/24 at 1556, Constipation, Administer if needed per patient's routine or if no bowel movement within 48 hours to achieve: (1) One bowel movement at least every 48 hours, AND (2) Without straining. - If multiple PRN bowel medications ordered, start with magnesium hydroxide, then bisacodyL. - Multiple medications may be given concomitantly for constipation., Routine budesonide-formoteroL (Symbicort) 80-4.5 mcg/actuation inhaler 2 .Inhalation 2 .Inhalation , Inhalation, 2 TIMES DAILY, First dose on Sun07/29/24 at 2100, Until Discontinued, Prime inhaler before first use or if has not been used for more than 5 days. Shake well prior to each use. Rinse mouth with water (spit out without swallowing) after each use. Given 08/02/2024 10:43 AM EST 2 .Inhalation Given 08/01/2024 9:04 PM EST 2 .Inhalation Given 08/01/2024 9:47 AM EST 2 .Inhalation citalopram (CeleXA) tablet 20 mg 20 mg, Oral, DAILY, First dose on Sun07/29/24 at 1745, Until Discontinued, Routine Given 08/02/2024 10: 43 AM EST 20 mg Given 08/01/2024 9:47 AM EST 20 mg Given 07/31/2024 8:55 AM EST 20 mg escitalopram (Lexapro) tablet 20 mg 20 mg, Oral, DAILY AT NOON, First dose on Sun07/30/24 at 1200, Until Discontinued, Routine Given 08/02/2024 11: 33 AM EST 20 mg Given 08/01/2024 1:06 PM EST 20 mg Given 07/31/2024 11:51 AM EST 20 mg heparin (porcine) (5,000 units/1 mL) subcutaneous injection 5,000 Units 5,000 Units, Subcutaneous, EVERY 8 HOURS SCHEDULED, First dose on Sun07/29/24 at 1600, Until Discontinued, Routine Given 08/02/2024 6:01 AM EST 5,000 Unit s Given 08/01/2024 9:02 PM EST 5,000 Units Given 08/01/2024 3:35 PM EST 5,000 Units hydrALAZINE (Apresoline) (20 mg/mL) injection 5 mg 5 mg, Intravenous, EVERY 2 HOURS PRN, Starting on Sun07/29/24 at 1655, Until 08/02/24 at 1556, High Blood Pressure, 2nd Line. For SBP >180. Hold HR >100 ipratropium-albuteroL (Duoneb) 0.5 mg-3 mg(2.5 mg base)/3 mL nebulizer solution 3 mL 3 mL, Nebulization, EVERY 4 HOURS, First dose on Sun07/29/24 at 1345, Until Discontinued, Routine Given 08/02/2024 10:45 AM EST 3 mLs Given 08/02/2024 6:00 AM EST 3 mLs Given 08/02/2024 2:42 AM EST 3 mLs labetaloL (Normodyne) (5 mg/mL) injection solution 5 mg 5 mg, Intravenous, EVERY 2 HOURS PRN, Starting on Sun07/29/24 at 1654, Until 08/02/24 at 1556, High Blood Pressure, First line, SBP >180. Hold HR <60, Routine Given 07/29/2024 5:04 PM EST 5 mg lamoTRIgine (LaMICtal) tablet 50 mg 50 mg, Oral, 2 TIMES DAILY, First dose on Sun07/29/24 at 2100, Until Discontinued Given 08/02/2024 10:44 AM EST 50 mg Given 08/01/2024 9:02 PM EST 50 mg Given 08/01/2024 9:48 AM EST 50 mg lisinopriL (Zestril) tablet 10 mg 10 mg, Oral, DAILY, First dose on Sun07/29/24 at 1800, Until Discontinued, Routine Given 08/02/2024 10: 45 AM EST 10 mg Given 08/01/2024 9:47 AM EST 10 mg Given 07/31/2024 8:54 AM EST 10 mg loratadine (Claritin) tablet 10 mg 10 mg, Oral, DAILY, First dose on Sun07/29/24 at 1745, Until Discontinued, Routine Given 08/02/2024 10: 45 AM EST 10 mg Given 08/01/2024 9:48 AM EST 10 mg Given 07/31/2024 8:54 AM EST 10 mg multivitamin with minerals (Thera M) tablet 1 tablet 1 tablet, Oral, DAILY, First dose on Sun07/31/24 at 1545, Until Discontinued, Routine Given 08/02/2024 10:45 AM EST 1 tablet Given 08/01/2024 9:48 AM EST 1 tablet naloxone (Narcan) (0.4 mg/mL) injection 0.2 mg 0.2 mg, Intravenous, EVERY 1 MIN PRN, Starting on Sun07/30/24 at 0935, Until 08/02/24 at 1556, Opioid Reversal, May repeat 0.2 mg every 1 minute until patient is responsive or vital signs improve. DO NOT exceed 2 mg total dose. At [facility] or [facility], call provider if naloxone administered. At [facility], If ineffective, call HERT team [phone]. At [facility], page rapid response team., Routine oxyCODONE (Roxicodone) tablet 2.5 mg 2.5 mg, Oral, EVERY 4 HOURS PRN, Starting on Sun07/31/24 at 1729, Until 08/02/24 at 1556, Pain, Breakthrough pain rescue dose, For moderate or severe pain (4-10) unrelieved at least 60 minutes after initial PRN dose was administered. Max 3 doses/24 hours. If pain still unrelieved after 3rd rescue dose within 24 hours, contact provider. If multiple routes of administration ordered, oral route first line., Routine Given 07/31/2024 5:40 PM EST 2.5 mg oxyCODONE (Roxicodone) tablet 5 mg 5 mg, Oral, EVERY 4 HOURS PRN, Starting on Sun07/30/24 at 0935, Until 08/02/24 at 1556, Pain, moderate to severe pain 7-10, Routine Given 08/02/2024 11:34 AM EST 5 mg Given 08/02/2024 7:04 AM EST 5 mg Given 08/02/2024 2:42 AM EST 5 mg oxyCODONE CR (OxyCONTIN) tablet 10 mg 10 mg, Oral, EVERY 12 HOURS SCHEDULED (2 times per day), First dose on Sun07/31/24 at 2100, Until Discontinued, DO NOT CRUSH OR OPEN, Routine Given 08/02/2024 10:44 AM EST 10 mg Given 08/01/2024 9:03 PM EST 10 mg Given 08/01/2024 9:49 AM EST 10 mg pantoprazole EC (Protonix) tablet 40 mg 40 mg, Oral, DAILY, First dose on Sun07/29/24 at 1745, Until Discontinued Given 08/02/2024 10:45 AM EST 40 mg Given 08/01/2024 9:48 AM EST 40 mg Given 07/31/2024 9:01 AM EST 40 mg polyethylene glycoL (Miralax) packet 17 g 17 g, Oral, DAILY, First dose on Sun07/29/24 at 1815, Until Discontinued, Routine Given 08/02/2024 10:45 AM EST 17 g Given 08/01/2024 9:49 AM EST 17 g Given 07/31/2024 8:54 AM EST 17 g QUEtiapine (Seroquel) tablet 50 mg 50 mg, Oral, 2 TIMES DAILY, First dose on Sun07/29/24 at 2100, Until Discontinued, Routine Given 08/02/2024 10: 45 AM EST 50 mg Given 08/01/2024 9:48 AM EST 50 mg Given 07/31/2024 8:08 PM EST 50 mg senna-docusate (Pericolace) 8.6-50 mg per tablet 2 tablet 2 tablet, Oral, 2 TIMES DAILY, First dose on Sun07/31/24 at 2100, Until Discontinued, Routine Given 08/02/2024 10:43 AM EST 2 tablets Given 08/01/2024 9:02 PM EST 2 tablets Given 08/01/2024 9:48 AM EST 2 tablets tiotropium (Spiriva Respimat) 2.5 mcg/actuation inhaler 2 puff 2 puff, Inhalation, DAILY, First dose on Sun07/29/24 at 1815, Until Discontinued Given 08/02/2024 10:43 AM EST 2 puffs Given 08/01/2024 9:47 AM EST 2 puffs Given 07/31/2024 8:58 AM EST 2 puffs traZODone (Desyrel) tablet 100 mg 100 mg, Oral, NIGHTLY, First dose on Sun07/29/24 at 2100, Until Discontinued, Routine Given 08/01/2024 9:0 3 PM EST 100 mg Given 07/31/2024 8:09 PM EST 100 mg Given 07/30/2024 8:06 PM EST 100 mg documented in this encounter Active and Recently Administered Medications Times are shown in EST. Scheduled Medication Order 07/31/2024 08/01/2024 08/02/2024 acetaminophen (Tylenol) tablet 975 mg 975 mg, Oral, EVERY 6 HOURS SCHEDULED, First dose on Sun07/29/24 at 1800, Until Discontinued, - Maximum dose of acetaminophen is 4,000 mg from all sources in 24 hours. - Unless otherwise specified, when ordered PRN for pain, acetaminophen should be given first if other PRN pain medications are ordered., Routine 0242 (Given - Provider: Jennie Sethi RN)0856 (Given - Provider: Marcia Chaney RN)1524 (Given - Provider: Shayne Nelson RN)2008 (Given - Provider: Gian Sung RN) 0214 (Given - Provider: Gian Sung RN)0948 (Given - Provider: Claudia Mckeon, NING)1534 (Given - Provider: Claudia Mckeon, NING)2102 (Given - Provider: Gian Sung RN) 0242 (Given - Provider: Gian Sung RN)1044 (Given - Provider: Claudia Mckeon RN) aspirin chewable tablet 81 mg 81 mg, Oral, DAILY, First dose on Sun07/30/24 at 1430, Until Discontinued, Routine 0856 (Given - Provider: Marcia Chaney RN) 0948 (Given - Provider: Claudia Mckeon RN) 1044 (Given - Provider: Claudia Mckeon RN) atorvastatin (Lipitor) tablet 20 mg 20 mg, Oral, DAILY, First dose on Sun07/29/24 at 1745, Until Discontinued, Routine 0855 (Given - Provider: Marcia Chaney RN) 0948 (Given - Provider: Claudia Mckeon RN) 1045 (Given - Provider: Claudia Mckeon RN) budesonide-formoteroL (Symbicort) 80-4.5 mcg/actuation inhaler 2 .Inhalation(Linked Group 1) 2 .Inhalation , Inhalation, 2 TIMES DAILY, First dose on Sun07/29/24 at 2100, Until Discontinued, Prime inhaler before first use or if has not been used for more than 5 days. Shake well prior to each use. Rinse mouth with water (spit out without swallowing) after each use. 0857 (Given - Provider: Marcia Chaney RN)2007 (Given - Provider: Gian Sung RN) 0947 (Given - Provider: Claudia Mckeon RN)2104 (Given - Provider: Gian Sung RN) 1043 (Given - Provider: Claudia Mckeon RN) citalopram (CeleXA) tablet 20 mg 20 mg, Oral, DAILY, First dose on Sun07/29/24 at 1745, Until Discontinued, Routine 0855 (Given - Provider: Marcia Chaney RN) 0947 (Given - Provider: Claudia Mckeon RN) 1043 (Given - Provider: Claudia Mckeon RN) docusate sodium (Colace) capsule 100 mg (CANCELED) 100 mg, Oral, 2 TIMES DAILY, First dose on Sun07/29/24 at 2100, Until Discontinued, Routine 0856 (Given - Provider: Marcia Chaney RN) escitalopram (Lexapro) tablet 20 mg 20 mg, Oral, DAILY AT NOON, First dose on Sun07/30/24 at 1200, Until Discontinued, Routine 1151 (Given - Provider: Marcia Chaney RN) 1306 (Given - Provider: Claudia Mckeon RN) 1133 (Given - Provider: Claudia Mckeon, NING) heparin (porcine) (5,000 units/1 mL) subcutaneous injection 5,000 Units 5,000 Units, Subcutaneous, EVERY 8 HOURS SCHEDULED, First dose on Sun07/29/24 at 1600, Until Discontinued, Routine 0534 (Given - Provider: Gian Sung RN)1348 (Given - Provider: Marcia Chaney RN)2150 (Given - Provider: Gian Sung RN) 0628 (Given - Provider: Gian Sung RN)1535 (Given - Provider: Claudia Mckeon, NING)2102 (Given - Provider: Gian Sung RN) 0601 (Given - Provider: Gian Sung RN) ipratropium-albuteroL (Duoneb) 0.5 mg-3 mg(2.5 mg base)/3 mL nebulizer solution 3 mL 3 mL, Nebulization, EVERY 4 HOURS, First dose on Sun07/29/24 at 1345, Until Discontinued, Routine 0245 (Given - Provider: Gian Sung RN)0534 (Given - Provider: Gian Sung RN)0855 (Given - Provider: Marcia Chaney RN)1348 (Given - Provider: Marcia Chaney RN)1746 (Given - Provider: Marcia Chaney RN)2150 (Given - Provider: Gian Sung RN) 0214 (Given - Provider: Gian Sung RN)0628 (Given - Provider: Gian Sung RN)0949 (Given - Provider: Claudia Mckeon RN)1306 (Given - Provider: Claudia Mckeon, NING)1758 (Given - Provider: Claudia Mckeon, NING)2104 (Given - Provider: Gian Sung RN) 0242 (Given - Provider: Gian Sung RN)0600 (Given - Provider: Gian Sung RN)1045 (Given - Provider: Claudia Mckeon RN)1345 (Due) lamoTRIgine (LaMICtal) tablet 50 mg 50 mg, Oral, 2 TIMES DAILY, First dose on Sun07/29/24 at 2100, Until Discontinued 0856 (Given - Provider: Marcia Chaney RN)2007 (Given - Provider: Gian Sung RN) 0948 (Given - Provider: Claudia Mckeon RN)210 (Given - Provider: Gian Sung RN) 104 (Given - Provider: Claudia Mckeon RN) lisinopriL (Zestril) tablet 10 mg 10 mg, Oral, DAILY, First dose on Sun07/29/24 at 1800, Until Discontinued, Routine 0854 (Given - Provider: Marcia Chaney RN) 0947 (Given - Provider: Claudia Mckeon RN) 1045 (Given - Provider: Claudia Mckeon RN) loratadine (Claritin) tablet 10 mg 10 mg, Oral, DAILY, First dose on Sun07/29/24 at 1745, Until Discontinued, Routine 0854 (Given - Provider: Marcia Chaney RN) 0948 (Given - Provider: Claudia Mckeon RN) 1045 (Given - Provider: Claudia Mckeon RN) multivitamin with minerals (Thera M) tablet 1 tablet 1 tablet, Oral, DAILY, First dose on Sun07/31/24 at 1545, Until Discontinued, Routine 1545 (Not Given - Provider: Marcia Chaney RN - Reason: Patient/family refused - Comment: Pt stated he is not supposed to take vitamins) 0948 (Given - Provider: Claudia Mckeon RN) 1045 (Given - Provider: Claudia Mckeon RN) oxyCODONE CR (OxyCONTIN) tablet 10 mg 10 mg, Oral, EVERY 12 HOURS SCHEDULED (2 times per day), First dose on Sun07/31/24 at 2100, Until Discontinued, DO NOT CRUSH OR OPEN, Routine 2150 (Given - Provider: Gian Sung RN) 0949 (Given - Provider: Claudia Mckeon RN)2102 (Given - Provider: Gian Sung RN) 104 (Given - Provider: Claudia Mckeon RN) pantoprazole EC (Protonix) tablet 40 mg 40 mg, Oral, DAILY, First dose on Sun07/29/24 at 1745, Until Discontinued 09 (Given - Provider: Marcia Chaney RN) 0948 (Given - Provider: Claudia Mckeon RN) 104 (Given - Provider: Claudia Mckeon RN) polyethylene glycoL (Miralax) packet 17 g 17 g, Oral, DAILY, First dose on Sun07/29/24 at 1815, Until Discontinued, Routine 0854 (Given - Provider: Marcia Chaney RN) 948 (Given - Provider: Claudia Mckeon RN) 1044 (Given - Provider: Claudia Mckeon RN) QUEtiapine (Seroquel) tablet 50 mg 50 mg, Oral, 2 TIMES DAILY, First dose on Sun07/29/24 at 2100, Until Discontinued, Routine 0855 (Given - Provider: Marcia Chaney RN)2007 (Given - Provider: Gian Sung RN) 947 (Given - Provider: Claudia Mckeon RN)2102 (Not Given - Provider: Gian Sung RN - Reason: Contraindicated) 1044 (Given - Provider: Claudia Mckeon RN) senna-docusate (Pericolace) 8.6-50 mg per tablet 2 tablet 2 tablet, Oral, 2 TIMES DAILY, First dose on Sun07/31/24 at 2100, Until Discontinued, Routine 2007 (Given - Provider: Gian uSng RN) 947 (Given - Provider: Claudia Mckeon RN)2101 (Given - Provider: Gian Sung RN) 1042 (Given - Provider: Claudia Mckeon RN) tiotropium (Spiriva Respimat) 2.5 mcg/actuation inhaler 2 puff(Linked Group 1) 2 puff, Inhalation, DAILY, First dose on Sun07/29/24 at 1815, Until Discontinued 0858 (Given - Provider: Marcia Chaney RN) 0947 (Given - Provider: Claudia Mckeon, RN) 1043 (Given - Provider: Claudia Mckeon, NING) traZODone (Desyrel) tablet 100 mg 100 mg, Oral, NIGHTLY, First dose on Sun07/29/24 at 2100, Until Discontinued, Routine 2008 (Given - Provider: Gian Sung RN) 2102 (Given - Provider: Gian Sung RN) PRN Medication Order 07/31/2024 08/01/2024 08/02/2024 albuteroL (Proventil, Ventolin) (2.5 mg/3 mL) (0.083 %) nebulizer solution 2.5 mg 2.5 mg, Nebulization, EVERY 2 HOURS PRN, Starting on Sun07/29/24 at 1726, Until 08/02/24 at 1556, Shortness of Breath, Wheezing, Routine bisacodyL (Dulcolax) suppository 10 mg 10 mg, Rectal, DAILY PRN, Starting on Sun07/29/24 at 1531, Until 08/02/24 at 1556, Constipation, Administer if needed per patient's routine or if no bowel movement within 48 hours to achieve: (1) One bowel movement at least every 48 hours, AND (2) Without straining. - If multiple PRN bowel medications ordered, start with magnesium hydroxide, then bisacodyL. - Multiple medications may be given concomitantly for constipation., Routine hydrALAZINE (Apresoline) (20 mg/mL) injection 5 mg(Linked Group 2) 5 mg, Intravenous, EVERY 2 HOURS PRN, Starting on Sun07/29/24 at 1655, Until 08/02/24 at 1556, High Blood Pressure, 2nd Line. For SBP >180. Hold HR >100 HYDROmorphone (Dilaudid) tablet 2 mg (CANCELED) 2 mg, Oral, EVERY 6 HOURS PRN, Starting on Sun07/30/24 at 1953, Until Sanjuanita 07/31/24 at 1558, Pain, for breakthrough pain, Routine 0534 (Given - Provider: Gian Sung RN)1151 (Given - Provider: Marcia Chaney RN) labetaloL (Normodyne) (5 mg/mL) injection solution 5 mg(Linked Group 2) 5 mg, Intravenous, EVERY 2 HOURS PRN, Starting on Sun07/29/24 at 1654, Until 08/02/24 at 1556, High Blood Pressure, First line, SBP >180. Hold HR <60, Routine naloxone (Narcan) (0.4 mg/mL) injection 0.2 mg 0.2 mg, Intravenous, EVERY 1 MIN PRN, Starting on Sun07/30/24 at 0935, Until 08/02/24 at 1556, Opioid Reversal, May repeat 0.2 mg every 1 minute until patient is responsive or vital signs improve. DO NOT exceed 2 mg total dose. At [facility] or [facility], call provider if naloxone administered. At [facility], If ineffective, call HERT team [phone]. At [facility], page rapid response team., Routine oxyCODONE (Roxicodone) tablet 2.5 mg 2.5 mg, Oral, EVERY 4 HOURS PRN, Starting on Sanjuanita 07/31/24 at 1729, Until 08/02/24 at 1556, Pain, Breakthrough pain rescue dose, For moderate or severe pain (4-10) unrelieved at least 60 minutes after initial PRN dose was administered. Max 3 doses/24 hours. If pain still unrelieved after 3rd rescue dose within 24 hours, contact provider. If multiple routes of administration ordered, oral route first line., Routine 1740 (Given - Provider: Marcia Chaney RN) oxyCODONE (Roxicodone) tablet 5 mg(Linked Group 3) 5 mg, Oral, EVERY 4 HOURS PRN, Starting on Sun07/30/24 at 0935, Until 08/02/24 at 1556, Pain, moderate to severe pain 7-10, Routine 0351 (Given - Provider: Gian Sung RN)1011 (Given - Provider: Marcia Chaney RN)1524 (Given - Provider: Shayne Nelson RN)1930 (Given - Provider: Gian Sung RN)2338 (Given - Provider: Gian Sung RN) 0628 (Given - Provider: Gian Sung RN)1049 (Given - Provider: Claudia Mckeon, NING)1535 (Given - Provider: Claudia Mckeon RN) 0242 (Given - Provider: Gian Sung RN)0704 (Given - Provider: Gian Sung RN)1134 (Given - Provider: Claudia Mckeon RN) Linked Groups Order Group 1: budesonide-formoteroL (Symbicort) 80-4.5 mcg/actuation inhaler 2 .InhalationJump to med 2 .Inhalation , Inhalation, 2 TIMES DAILY, First dose on Sun07/29/24 at 2100, Until Discontinued, Prime inhaler before first use or if has not been used for more than 5 days. Shake well prior to each use. Rinse mouth with water (spit out without swallowing) after each use. And tiotropium (Spiriva Respimat) 2.5 mcg/actuation inhaler 2 puffJump to med 2 puff, Inhalation, DAILY, First dose on Sun07/29/24 at 1815, Until Discontinued Group 2: labetaloL (Normodyne) (5 mg/mL) injection solution 5 mgJump to med 5 mg, Intravenous, EVERY 2 HOURS PRN, Starting on Sun07/29/24 at 1654, Until 08/02/24 at 1556, High Blood Pressure, First line, SBP >180. Hold HR <60, Routine And hydrALAZINE (Apresoline) (20 mg/mL) injection 5 mgJump to med 5 mg, Intravenous, EVERY 2 HOURS PRN, Starting on Sun07/29/24 at 1655, Until 08/02/24 at 1556, High Blood Pressure, 2nd Line. For SBP >180. Hold HR >100 Group 3: oxyCODONE (Roxicodone) tablet 2.5 mg (CANCELED) 2.5 mg, Oral, EVERY 4 HOURS PRN, Starting on Sun07/30/24 at 0935, Until Sanjuanita 07/31/24 at 1558, Pain, moderate pain 5-6, Routine Or oxyCODONE (Roxicodone) tablet 5 mgJump to med 5 mg, Oral, EVERY 4 HOURS PRN, Starting on Sun07/30/24 at 0935, Until 08/02/24 at 1556, Pain, moderate to severe pain 7-10, Routine documented in this encounter Care Teams Can Feeder Relationship Specialty Start Date End Date Cintia Jones, MASTER CONTROL OPERATOR [place] [address] PCP - General Family Medicine 05/09/24 documented as of this encounter
--- OUTSIDE RECORDS SUMMARY | 2024-08-06 12:09 | XMS_ITS | Encounter Summary ---
Author Organization [facility] [place] [address] Care Team Providers Care School Psychometrist Name Role Phone Ness Diaz DARIANA Primary Care Provider Reason for Visit * Diagnostic Test (Routine) - Closed Specialty Diagnoses / Procedures Referred By Christin connelly Referred To Contact Radiology Diagnoses Pleural nodule Procedures NM PET CT Skull Base to Mid-thigh Mabel Gurrola PA [address] [place] [address] [place] [address] Referral ID Status Reason Start Date Expiration Date V isits Requested Visits Authorized [id number] Closed Specialty Service Requested 10/23/2022 04/22/2024 1 1 Encounter Details Date Type Department Care Team (Latest Contact Info) Description 11/13/2022 2:28 PM EST - 11/13/2022 11:59 PM [facility] Hospital Encounter [place] [address] Mabel Gurrola PA [address] [place], [place] [id number] Discharge Disposition: Home Social History Tobacco Use [...] Dispensed Refills Start Date End Date multivitamin with minerals (One-A-Day) Tablet Take 1 tablet by mouth Daily @ 0600. 01/23/2014 budesonide/formoterol fumarate (SYMBICORT INHL) Inhale into the [...] mouth daily. fluticasone propionate (FLONASE) 50 mcg/actuation [place], Suspension 1 spray daily. lisinopril (PRINIVIL;ZESTRIL) 10 mg Tablet Take 10 mg by mouth daily. aspirin 81 mg Tablet, Delayed Release (E.C.) Take 81 mg by mouth daily. omeprazole (PRILOSEC) 20 mg Capsule, Delayed Release(E.C.) Take 20 mg by mouth daily. traZODone (DESYREL) 100 mg Tablet Take 100 mg by mouth nightly. multivitamin Uzta-Gi-JR-Min (THERAPEUTIC-M) 27-0.4 mg Tablet Take 1 tablet [...] as of this encounter Plan of Treatment Upcoming Encounters Date Type Department Care Team (Late st Contact Info) Description 08/07/2024 1:30 PM EST Clinical [place] [phone] 08/07/2024 3:30 PM EST [place]uled [place] [address] documented as of this encounter Procedures Procedure Name Priority Date/Time Associated Diagnosis Comments NM PET CT SKULL BASE TO MID-THIGH ([facility]) Routine 11/13/2022 4:00 PM EST Pleural nodule POCT GLUCOSE Routine 11/13/2022 2:33 PM EST documented in this encounter Results * POCT Glucose (11/13/2022 2:33 PM EST) Glucose, POC 105 65 - 199 mg/dL [facility] Comment: Supplemental ranges: <140 mg/dL before meals <180 mg/dL all other times of the day Blood 11/13/2022 2:33 PM EST 11/13/2022 2:33 PM EST Mabel ORTIZ POINT OF CARE TE ORDERABLES Performing Organization Address City/State/[facility] Co de Phone Number [facility] [place] [address] documented in this encounter Visit Diagnoses Not on filedocumented in this encounter Care Teams School Psychometrist Relationship Specialty Start Date End Date Ness Diaz, DARIANA [address] [place] [address] PCP - General Family Medicine 05/07/20 05/08/24 documented as of this encounter
--- OUTSIDE RECORDS SUMMARY | 2024-08-06 12:09 | XMS_ITS | Encounter Summary ---
Author Organization [facility] Address [facility] [address] Care Team Providers Care Special Programs Director Name Role Phone Ness Diaz APRN Primary Care Provider [phone] Encounter Details Date Type Department Care Team [...] 1:30 PM EST Clinical [place] [address] 08/07/2024 3:30 PM EST Scheduled [place] [address] documented as of this encounter Visit Diagnoses Not on filedocumented in this encounter Care Teams Special Programs Director Relationship Specialty Start Date End Date Ness Diaz APRN [address] [place] [address] PCP - General Family Medicine 05/07/20 05/08/24 documented as of this encounter
--- OUTSIDE RECORDS SUMMARY | 2024-08-06 12:09 | XMS_ITS | Encounter Summary ---
Author Organization [facility] Address [facility] [place] [address] Care Team Providers Care Labor Training Manager Name Role Phone Cintia Jones DARIANA Primary Care Provider [phone] Reason for Referral * Home Health Care (Routine) - Authorized Specialty Diagnoses / Procedures Referred By Contac t Referred To Contact Diagnoses Unsteady gait Umu Frye MD [facility] [place] [address] Home Health & [address] [place] [address] Referral ID Status Reason Start Date Expiration Date Visits Requested Visits Authorized [id number] Authorized Consult, Test & Treat 08/02/2024 01/29/2025 999 999 * Consultation (Routine) - Authorized Specialty Diagnoses / Procedures Referred By Contac t Referred To Contact Radiation Oncology Diagnoses Bladder tumor Sujatha Marin MD [facility] [place] [address] [address] Rad Onc Office [address] [place] [phone] Referral ID Status Reason Start Date Expiration Date Visits Requested Visits Authorized [id number] Authorized Consult, Test & Treat 07/31/2024 07/31/2025 1 1 * Diagnostic Test (Routine) - Authorized Specialty Diagnoses / Procedures Referred By Contac t Referred To Contact Radiology Diagnoses Bladder tumor Procedures IR Nephrostomy Tube Exchange Left Juliocesar Howe MD [facility] [place] [address] [place] [address] Referral ID Status Reason Start Date Expiration Date Visits Requested Visits Authorized [id number] Authorized Specialty Service Requested 01/27/2026 1 1 Reason for Visit * Auth/Cert (Routine) Specialty Diagnoses / Procedures Referred By Christin connelly Referred To Contact Diagnoses Bladder tumor to md Procedures PRO CYSTOURETHROSCOPY, FULGUR >5CM LESN PRO CYSTOURETHROSCOPY, URETER CATHETER CYSTO, RESECTION BLADDER TUMOR, GREATER THAN 5.0CM (WRVU 7.5) CYSTO, RETROGRADE, URETEROPYELOGRAPHY (WRVU 2.37) Umu Frye MD [facility] [place] [address] [facility] Referral ID Status Reason Start Date Expiration Date Visits Re quested Visits Authorized [id number] 1 1 Encounter Details Date Type Department Care Team (Latest Contact Info) Description 07/29/2024 11:08 AM EST - 08/02/2024 1:56 PM EST Hospital Encounter Surgical Unit Level 4 [place] [address] Umu Frye MD [facility] [place] [address] Unstable angina; Chest pain, unspecified type; Bladder tumor; Unsteady gait Discharge Disposition: Home with VNA Social History Tobacco Use Types Packs/Day Years Used Date Smoking Tobacco: Former Cigarettes Smokeless Tobacco: Never Comments:Quit 4 months ago p er pt. Alcohol Use Standard Drinks/Week Comments Not Currently 0 (1 standard drink = 0.6 oz pure alcohol) was a heavy drinker, now drinks <3beers per month [facility] Utilities Answer Date Recorded In the [...] any time in the past 12 m [facility], were you homeless or living in a fdc (including now)? No 07/30/2024 DH IPV Inpatient [...] Jimenez Marin Patient Age: 69 y.o. Language: Cymro Race: White Ethnicity: Not nor Admit date: [...] y.o. male with a history of COPD, [place] s/p stents, recently quit smoking, gross hematuria, [...] also sees a palliative care physician in [facility],but doesn't know her name and doesn't [...] Hospital Course: Patient was [place] elect[place] [facility] [place] the same [place] surgery program and [...] best judgement (pending path report), he has [id number] bladder cancer, I.e., locally advanced. Given his overall poor health, he is not a candidate for radical cystectomy. Given bulk of disease,he is not a candidate for bladder sparing trimodal therapy. Thus, goals of care are palliative. We referred him for consideration of palliative radiotherapy to [facility]. Given his poor overall health and extent of cancer, I believe his life expectancy is less than 1 year. Our palliative care connected with his palliative care physician in [facility] Who will provide follow-up. Discharge was delayed [...] yann - CRISTIANE w/ Palliative care at [facility] 08/05 w/ Dr Byrd -Cx: Ucx added [...] 07/30/2024 2:50 AM) Result Value WORKSTATION ID [id number] Impression 1. Although decompressed by Ferris catheter, [...] who have questions please contact the health critical care educator that requested your imaging first. Pending Studies and Lab Data: No current [...] the lungs 2 times daily. Generic drug: bcemabvwvp-trzwxfhtvanfnl-rdepojpnfh 2 puff Refills: 0 citalopram 20 mg [...] mouth daily. 15 mg Refills: 0 multivitamin Wqsm-Yn-RW-Min 27-0.4 mg Tablet Commonly known as: Therapeutic-M [...] to urinate, please call our office at [phone] before 5PM or [phone] after hours or go to your localEmergency [...] more blood in your urine - The [facility] palliative care team has recommended opioid pain medication to be prescribe. You have been prescribed OxyContin 10mg twice daily, and oxycodone 5mg every 4 hours as needed for breakthroughpain. We will send you on a 4-5 day prescription of this medication and your [facility] palliative care team will fill/change all future refills. Follow-up: - An appointment has been scheduled as below. Please call [phone] (clinic number for appointments) to confirm date [...] Department Center 08/07/2024 1:30 PM UROLOGY, NURSE [facility] 08/07/2024 3:30 PM UROLOGY, NURSE [facility] You have been scheduled an appointment with your [facility] Palliative Care team with Dr. Bethany Byrd. [...] coffee grounds or cat litter. General Instructions [facility] Vascular and Interventional Radiology Discharge Instructions for [...] connecting tubing from the drain. Put a hired worker on both the drain and the bag. [...] is during regular office hours, please call [phone]. If it is after regular office hours, or on weekends or holidays, please call [phone] and ask to speak to the Insulation [employer] Flooring Assembler promotions team leader for Interventional Radiology. You have received medication [...] 08/07/2024 1:30 PM UROLOGY, NURSE Urology at [facility] Arrive at: Canoe Inspector Final Area [phone] 08/07/2024 3:30 PM UROLOGY, NURSE Urology at [facility] Arrive at: Canoe Inspector Final Area [phone] Future Orders Complete By Expires IR Nephrostomy Tube Exchange Left [[id number] Custom] 10/30/2024 11/27/2024 Process Instructions: Scheduling Instructions: Questions: Where will study be performed?: [facility] Radiology To be scheduled: Next available after expected date Reason for exam and clinical history: Left ureteral malignant obstruction, probable invasive bladder tumor with left hydronephrosis and flank pain, left ureteral orifice not visualized. Left 10 Welsh PCN placed 07/30/2024 Exam/Procedure requested: What labs [...] [facility] [address] [facility] [address] (home) Date of : 1955 Inpatient DOCUMENTATION FOR VNA SERVICES (INCLUDING THOSE PATIENTS WITH MEDICARE COVERAGE REQUIRING HOME VNA SERVICES AND/OR HOSPICE SERVICES) PATIENT'S LOCATION: Jimenez Marin [address] [facility] [address] (home) Cell: Telephone Information: Button Breaker's Name: Self/Patient In discussion with the attending physician, it is certified that this patient is under their care and that they, or a Nurse Practitioner, Clinical Nurse specialist or Physician Evaluation Assistant who is working directly with them, had [...] for managing ADLs. HOME HEALTH CARE AGENCY: [facility]. [address] [place] [address] START OF CARE: within 24-48 hours of [...] APRN [address] [place] [address] . All VNA agencies whichcover the area [...] Department Center 08/07/2024 1:30 PM UROLOGY, NURSE [facility] 08/07/2024 3:30 PM UROLOGY, NURSE [facility] Primary Care Provider: Cintia Jones APRN [phone] Follow-up Recommendations for Providers: See lung CT findings above regarding wedge shaped plaque in right lung upper lobe. Assess and possible further outpatient workup. In setting of previous [place] patient was on Plavix, but this was [...] was managed by the Urology Team at [facility]. If you have any questions or concerns, please feel free to contact us. Provider Contact Information: Urology Clinic: [facility] (after business hours): Time spent on discharge plannin minutes DIANA Zhao 08/02/2024 * Wale Torrez PA - 07/30/2024 2:42 PM EST Images from the original note were not included. Discharge Summary Patient Name: Jimenez Marin Patient Age: 69 y.o. Language: Cymro Race: White Ethnicity: Not nor Admit date: [...] y.o. male with a history of COPD, [place] s/p stents, recently quit smoking, gross hematuria, [...] also sees a palliative care physician in [facility],but doesn't know her name and doesn't [...] Hospital Course: Patient was admitted electively [place] [facility] [place] the same day surgery program and [...] best judgement (pending path report), he has [id number] bladder cancer, I.e., locally advanced. Given his overall poor health, he is not a candidate for radical cystectomy. Given bulk of disease,he is not a candidate for bladder sparing trimodal therapy. Thus, goals of care are palliative. We referred him for consideration of palliative radiotherapy to [facility]. Given his poor overall health and extent of cancer, I believe his life expectancy is less than 1 year. Our palliative care connected with his palliative care physician in [facility] Who will provide follow-up. He remained afebrile, [...] yann - CRISTIANE w/ Palliative care at [facility] 08/05 w/ Dr Byrd -Cx: Ucx added [...] 07/30/2024 2:50 AM) Result Value WORKSTATION ID [id number] Impression 1. Although decompressed by Ferris catheter, [...] who have questions please contact the health critical care educator that requested your imaging first. Pending Studies and Lab Data: No current [...] the lungs 2 times daily. Generic drug: kvmarrlkju-zmrgsqahiixuic-yyzviyoqav 2 puff Refills: 0 citalopram 20 mg [...] mouth daily. 15 mg Refills: 0 multivitamin Xhup-Fo-BI-Min 27-0.4 mg Tablet Commonly known as: Therapeutic-M [...] to urinate, please call our office at [phone] before 5PM or [phone] after hours or go to your localEmergency [...] more blood in your urine - The [facility] palliative care team has recommended opioid pain medication to be prescribe. You have been prescribed OxyContin 10mg twice daily, and oxycodone 5mg every 4 hours as needed for breakthroughpain. We will send you on a 4-5 day prescription of this medication and your [facility] palliative care team will fill/change all future refills. Follow-up: - An appointment has been scheduled as below. Please call [phone] (clinic number for appointments) to confirm date [...] call our office. Future Appointments Date Time [facility] 08/07/2024 1:30 PM UROLOGY, NURSE [facility] 08/07/2024 3:30 PM UROLOGY, NURSE [facility] You have been scheduled an appointment with your [facility] Palliative Care team with Dr. Bethany Byrd. [...] coffee grounds or cat litter. General Instructions [facility] Vascular and Interventional Radiology Discharge Instructions for [...] connecting tubing from the drain. Put a hired worker on both the drain and the bag. [...] is during regular office hours, please call [phone]. If it is after regular office hours, or on weekends or holidays, please call [phone] and ask to speak to the Insulation And Flooring Assembler promotions team leader for Interventional Radiology. You have received medication [...] 08/07/2024 1:30 PM UROLOGY, NURSE Urology at [facility] Arrive at: Canoe Inspector Final Area [phone] 08/07/2024 3:30 PM UROLOGY, NURSE Urology at [facility] Arrive at: Canoe Inspector Final Area [phone] Future Orders Complete By Expires IR Nephrostomy Tube Exchange Left [[id number] Custom] 10/30/2024 11/27/2024 Process Instructions: Scheduling Instructions: Questions: Where will study be performed?: [facility] Radiology To be scheduled: Next available after expected date Reason for exam and clinical history: Left ureteral malignant obstruction, probable invasive bladder tumor with left hydronephrosis and flank pain, left ureteral orifice not visualized. Left 10 Welsh PCN placed 07/30/2024 Exam/Procedure requested: What labs [...] Department Center 08/07/2024 1:30 PM UROLOGY, NURSE [facility] 08/07/2024 3:30 PM UROLOGY, NURSE [facility] Primary Care Provider: Cintia Jones APRN [phone] Follow-up Recommendations for Providers: See lung CT findings above regarding wedge shaped plaque in right lung upper lobe. Assess and possible further outpatient workup. In setting of previous [place] patient was on Plavix, but this was [...] was managed by the Urology Team at [facility]. If you have any questions or concerns, please feel free to contact us. Provider Contact Information: Urology Clinic: [facility] (after business hours): Time spent on discharge plannin minutes DIANA Sevilla 08/01/2024 documented in this encounter Discharge Instructions * Discharge Instructions* Juli Howe RN - 07/30/2024 12:47 PM EST Images from the original note were not included. [facility] Vascular and Interventional Radiology Discharge Instructions for [...] connecting tubing from the drain. Put a hired worker on both the drain and the bag. [...] is during regular office hours, please call [phone]. If it is after regular office hours, or on weekends or holidays, please call [phone] and ask to speak to the Insulation And Flooring Assembler promotions team leader for Interventional Radiology. You have received medication [...] to urinate, please call our office at [phone] before 5PM or [phone] after hours or go to your localEmergency [...] more blood in your urine - The [facility] palliative care team has recommended opioid pain medication to be prescribe. You have been prescribed OxyContin 10mg twice daily, and oxycodone 5mg every 4 hours as needed for breakthroughpain. We will send you on a 4-5 day prescription of this medication and your [facility] palliative care team will fill/change all future refills. Follow-up: - An appointment has been scheduled as below. Please call [phone] (clinic number for appointments) to confirm date [...] Department Center 08/07/2024 1:30 PM UROLOGY, NURSE [facility] [place]RO [facility] 08/07/2024 3:30 PM UROLOGY, NURSE [facility] You have been scheduled an appointment with your [facility] Palliative Care team with Dr. Bethany Byrd. [...] * Indwelling Urinary Catheter Care: General Info (Cymro) documented in this encounter Medications at Time [...] mouth daily. fluticasone propionate (FLONASE) 50 mcg/actuation Zoar, Suspension 1 spray daily. lisinopril (PRINIVIL;ZESTRIL) 10 mg Tablet Take 10 mg by mouth daily. aspirin 81 mg Tablet, Delayed Release (E.C.) Take 81 mg by mouth daily. omeprazole (PRILOSEC) 20 mg Capsule, Delayed Release(E.C.) Take 20 mg by mouth daily. traZODone (DESYREL) 100 mg Tablet Take 100 mg by mouth nightly. multivitamin Oizg-Xu-KO-Min (THERAPEUTIC-M) 27-0.4 mg Tablet Take 1 tablet [...] Volunteer Rides to request a ride home. [facility] has arranged for a truck driver teamster to pick the patient up at Entrance 2 at 1:00pm. The volunteer truck driver teamster is Sharan and he will have a [employer]. Providers updates. Tiara Joseph [facility] Office of Case Management-Superintendent Overhead Distribution Clinical Superintendent Overhead Distribution ED CDU SDP , Pager [phone] * Sujatha Marin MD - 08/01/2024 4:48 PM EST Urology Inpatient Progress Note Patient Name: Jimenez Marin Patient Age: 69 y.o. Birthdate: 1955 Admit date: 07/29/2024 Attending Physician: Umu Frye MD ID: Jimenez Marin is a 69 y.o. male, w/ PMHx of COPD, [place] s/p stents, recent smoker, chronic CP/SOBon home [...] (Generic) Result Value Ref Range WORKSTATION ID [id number] CBC (with Diff) Result Value Ref Range [...] 07/30/2024 2:50 AM) Result Value WORKSTATION ID [id number] Impression 1. Although decompressed by Ferris catheter, [...] who have questions please contact the health critical care educator that requested your imaging first. SSMENT: Jimenez Marin w/PMHx of COPD, [place] s/p stents, recent smoker, chronic CP/SOB on [...] at an OSH for his COPD and [facility] palliative have connected with them and will transition his care upon discharge. Additionally upon discharge he will benefit from palliative radiation and a consult was placed to [facility] for future care. He is severely [...] is a 69 y.o. single male from [place], [place] with advanced COPD on O2, ASCVD [...] been seen by Dr. Bethany Byrd of [facility] Palliative Medicine Clinic related to his COPD (last visit in February predated his recent cancer diagnosis). [facility] highlights: 07/29 cystoscopy, resection of bladder tumor, [...] on cartoons) and expressed interest in the [email or web address] channel. He does not have TV at [...] also shared that I had contacted his [facility] Palliative Care provider's office and they are [...] in a request for Palliative Radiation in 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 Does not name any family members who he is close with. Lives with a roommate, Erich Hawley, [place] in [place], [place] with beautiful views. No pets, but [...] is a(n) 69 y.o. single male from [place], [place] with advanced COPD on O2, ASCVD [...] looks forward to returning to his [place] home. Regarding physical symptoms, Jimenez has cancer [...] today 08/01, Jimenez's Palliative Care team in [facility] (Dr. Byrd) was kindly able to offer [...] had extensive conversations with Dr. Byrd (Palliative [facility]) about trying to identify a surrogate and is okay with having one appointed if needed as he does not feel any family/friends would be appropriate. See media tab for AD 03/04/24 Follow-up wit outpatient palliative care provider, Dr. Bethany Byrd, at [facility] ([phone]) as below #Serious illness-associated symptom recommendations #Cancer [...] shared a value for visitors/company (including Volunteers, [employer]). He shared insight the hearing difficult news is hard while also knowing that the information is helpful for planning. He has had bucket lists in the past but nothing right at this moment. Will continue to explore. -Screened for spiritual care needs? Yes--declined -Primary personal care worker: None; has some support from his roommate, Erich -Interdisciplinary Team members engaged: [] Palliative [employer]; [] BIT involved; [x] [employer]; [] [...] SundayAUGUST 05 at 10:30AM. Address is [facility], [address] [place] [address], [address], [place] [address]. I wrote this down for Jimenez and reviewed it in person. He repeated back that he has an appointment with [facility] Palliative Care next Sunday at 1030. He knows that he will discharge with enough pain medicine to get to this appointment and then they will take over. He relayed he knows how to arrange transportation. Fredrick Ritchie MD Palliative care team pager #[phone] ~50 minutes were spent over the course [...] 69 y.o. male, w/ PMHx of COPD, [place] s/p stents, recent smoker, chronic CP/SOBon home [...] QTC Calculated (Bezet) 458 ms Calculated P Sunset 7 degrees Calculated R Sunset 70 degrees Calculated T Sunset 88 degrees INTERPRETATION Normal sinus rhythm T wave abnormality, consider lateral ischemia Abnormal ECG When compared with ECG of 15-JUN-2018 10:36, T wave inversion now evident in Anterolateral leads Confirmed by MD Staci, Kev ([id number]) on 07/29/2024 4:00:[address] Chest Abdomen Pelvis w Contrast (Generic) Result Value Ref Range WORKSTATION ID [id number] CBC (with Diff) Result Value Ref Range [...] 07/30/2024 2:50 AM) Result Value WORKSTATION ID [id number] Impression 1. Although decompressed by Ferris catheter, [...] who have questions please contact the health critical care educator that requested your imaging first. SSMENT: Jimenez Marin w/PMHx of COPD, [place] s/p stents, recent smoker, chronic CP/SOB on [...] at an OSH for his COPD and [facility] palliative will attempt to reach out to him to coordinate transition of care. We will request an attending-attending with palliative care to better disucss his prognosis and needs prior to discharge. Additionally upon discharge he will benefit from palliative radiation and a consult was placed to [facility] for future care. He is severely [...] of two midnights or is on the [facility] inpatient only procedure list (status C) due to: post-operative care that cannotbe delivered as an outpatient; examples: pain only controlled with IV pain medication; frequent or complex wound care/dressing changes; NPO requiring IV fluid support. I also discussed the patient's care with the palliative care team. Based on my best judgement (pending path report), he has [id number] bladder cancer, I.e., locally advanced. Given his overall poor health, he is not a candidate for radical cystectomy. Given bulk of disease,he is not a candidate for bladder sparing trimodal therapy. Thus, goals of care are palliative. We referred him for consideration of palliative radiotherapy to [facility]. Given his poor overall health and extent of cancer, I believe his life expectancy is less than 1 year. Our palliative care connected with his palliative care physician in [facility] Who will provide follow-up. Anticipate patient will be ready for d/c to home tomorrow. Umu Frye MD, MS 07/31/2024 Urologic Oncology [facility], [place], [place] spray applicator (Urology) and of [facility], [facility] [employer] [facility] [employer] [facility] * Gian Talbert RN - 07/31/2024 6:06 [...] Illness: also consider consultation to BIT and pad cutter if appropriate History of Present Illness: Jimenez Marin is a(n) 69 y.o. male from [facility] with newly diagnosed Muscle invasive bladder cancer, admitted for planned TURBT. History with Palliative Care: Chart review shows that he worked with Palliative Care MD in [facility], though he was not sure her name. Call to [facility] Palliative [facility], who confirms Jimenez has [...] Full consultation to follow Outpatient Established with [facility] palliative care clinic, last visit 03/02 Delfina Rivera, RN Inpatient Nurse Clinician Palliative care team pager #[phone] * Sujatha Marin MD - 07/30/2024 1:59 PM EST Urology Inpatient Progress Note Patient Name: Jimenez Marin Patient Age: 69 y.o. Birthdate: 1955 Admit date: 07/29/2024 Attending Physician: Umu Frye MD ID: Jimenez Marin is a 69 y.o. male, w/ PMHx of COPD, NJ s/p stents, recent smoker, chronic CP/SOBon home [...] QTC Calculated (Bezet) 458 ms Calculated P Sunset 7 degrees Calculated R Sunset 70 degrees Calculated T Sunset 88 degrees INTERPRETATION Normal sinus rhythm T wave abnormality, consider lateral ischemia Abnormal ECG When compared with ECG of 15-JUN-2018 10:36, T wave inversion now evident in Anterolateral leads Confirmed by MD Staci, Kev ([id number]) on 07/29/2024 4:00:[address] Chest Abdomen Pelvis w Contrast (Generic) Result Value Ref Range WORKSTATION ID [id number] CBC (with Diff) Result Value Ref Range [...] 07/30/2024 2:50 AM) Result Value WORKSTATION ID [id number] Impression 1. Although decompressed by Ferris catheter, [...] who have questions please contact the health critical care educator that requested your imaging first. SSMENT: Jimenez Marin w/PMHx of COPD, NJ s/p stents, recent smoker, chronic CP/SOB on [...] of two midnights or is on the [facility] inpatient only procedure list (status C) due to: post-operative care that cannotbe delivered as an outpatient; examples: pain only controlled with IV pain medication; frequent or complex wound care/dressing changes; NPO requiring IV fluid support. UMU FRYE MD 07/30/2024 * Juli Howe RN - 07/30/2024 12:39 PM EST ANGIO NURSING DATABASE Name: Jimenez Marin Date of : 1955 AGE: 69 y.o. [address]: [address] [place] [id number] (home) Mobile: Telephone Information: Referring Provider: Umu [...] that the dr was femaleand located in [facility]. Contacted pt's PCP office to see if they had an Advance Directive on file. They were unable to locate one. Follow Up Needed: Pt declines connection to additional resources. [employer] will attempt to locate Palliative doctor for Advance Directive. HARMONY Cotter, MOTION PICTURE ACTOR Autocad Designer Superintendent Overhead Distribution Office of Care Management [phone] * Zara Sanford RD - 07/30/2024 10:52 AM EST Nutrition Initial Note Jimenez Marin is a 69 y.o. male admitted with bladder tumor. Relevant medical history includes COPD, NJ s/p stents, gross hematuria, bladder mass. Interval History No data found. Reason for Assessment: Low BMI, Malnutrition Evaluation Nutrition Recommendations: Regular Diet Encourage PO intake, document %PO in flowsheets ONS BID Milk with each meal per pt request Continuum of Care Plan Referral to Outpatient Services: follow up with outpatient RD - if following with clinic in [facility] recommend referral to RD there. Recommend Multivitamin- order pended Patient meets criteria for severe protein calorie malnutrition as outlined below I was able to discuss plan with provider Urology #[id number] . Sujatha Marin MD. Current Nutrition Regimen: [...] encounter: 45.9 kg (101 lb 1.6 oz). [place] Body Weight (IBW) (kg): 80.91 Usual Body [...] is open to receiving while admitted. This screenplay writer emphasized the importance of protein for healing. Provided pt with high protein snack list to identify additional snacks. Pt inquired about NPO status; has a regular diet and ordered lunch for patient today. NFPE conducted, severe muscle and fat loss noted and visually apparent. Recommend outpatient follow up with RD; if patient is following with clinic in [facility], recommend referral to RD at clinic there. Nutrition Focused Physical Exam: Performed (07/31/24 CAB) . Subcutaneous Fat Loss Orbital region: Severe (buccal: severe) Upper arm region (triceps/biceps): Severe Thoracic and Lumbar regions (ribs, lower back, and maxillary line): Not assessed Lean Muscle Loss Methodist region (temporalis muscle): Severe Clavicle bone region [...] Add LDA for any identified wounds Add Stafford image for any suspected PI or non [...] mouth daily. fluticasone propionate (FLONASE) 50 mcg/actuation Zoar, Suspension 1 spray daily. lisinopril (PRINIVIL;ZESTRIL) 10 mg Tablet Take 10 mg by mouth daily. omeprazole (PRILOSEC) 20 mg Capsule, Delayed Release(E.C.) Take 20 mg by mouth daily. traZODone (DESYREL) 100 mg Tablet Take 100 mg by mouth nightly. multivitamin Jnto-Lm-UF-Min (THERAPEUTIC-M) 27-0.4 mg Tablet Take 1 tablet [...] Prior to Encounter Medication Sig Dispense Refill OnGreeni Aerosphere 160-9-4.8 mcg/actuation inhaler (HFA) Inhale 2 [...] mouth daily. fluticasone propionate (FLONASE) 50 mcg/actuation Zoar, Suspension 1 spray daily. lisinopril (PRINIVIL;ZESTRIL) 10 mg Tablet Take 10 mg by mouth daily. omeprazole (PRILOSEC) 20 mg Capsule, Delayed Release(E.C.) Take 20 mg by mouth daily. traZODone (DESYREL) 100 mg Tablet Take 100 mg by mouth nightly. multivitamin Zmuw-Gc-RS-Min (THERAPEUTIC-M) 27-0.4 mg Tablet Take 1 tablet [...] y.o. male with a history of COPD, NJ s/p stents, recently quit smoking, gross hematuria, [...] also sees a palliative care physician in [facility],but doesn't know her name and doesn't [...] MD, MS 07/29/2024 1:10 PM Urologic Oncology [facility], [place], [place] spray applicator (Urology) and of [facility], [facility] at [facility] documented in this encounter Miscellaneous Notes * [...] completed. Pt discharged, via W/C, accompanied by [facility]. All belongings with pt, discharged to home [...] of Discharge: 08/01/2024 Bethany Frank RN-BSN-CM Pager: [phone] * Care Management - Bethany Frank RN - 08/01/2024 2:32 PM EST The Patient has been provided a list of Home Health Agencies/DME vendors which serve their preferred geographic area. A letter describing our affiliations was reviewed with them and they were educated about their right to choose where referrals are placed. Patient requests referral to : [facility]. [address] [place] [id number] Expected date of discharge: 08/02/2024. Referral routed to the Reservoir Engineer for matching with agency/vendor and to provide any required information. * Care Management - Katia Knapp - 08/01/2024 11:40 AM EST Transportation for discharge has been scheduled/confirmed through [facility]. [facility] will have a truck driver teamster here at 14:15 at entrance #2 (inpatient visitor entrance) to provide patient with a ride home. * Initial Assessments - Shavonne Eaton, OT - 08/01/2024 9:40 AM EST Occupational Therapy Evaluation Patient profile: Jimenez Marin is a 69 y.o. male admitted on 07/29/2024. Pt with PMH of COPD, NJ s/p stents, recent smoker, chronic CP/SOB on [...] Placement Percutaneous Left 07/30/2024 Jamin Ugarte MD [facility] INTERVENTIONL RAD PRO CYSTOURETHROSCOPY, FULGUR >5CM LESN N/A 07/29/2024 CYSTO, RESECTION BLADDER TUMOR, GREATER THAN 5.0CM (WRVU 7.5) performed by Umu Frye MD at [facility] MAIN OR PRO UNLISTED PX RECTUM N/A 07/29/2024 EUA RECTUM (WRVU 7.56) performed by Umu Frye MD at [facility] MAIN OR Activity Orders: Activity Orders [...] and VSS. RN and team notified via [id number] conversation regarding Pt status, d/c recommendations, and [...] evaluation only Total Minutes, Occupational Therapy: 27 ([id number] (Low Eval)) 2017 OT Evaluation Code Rationale: [...] PANCHOR/L She/her Occupational Therapy Rehabilitation Department Pager: [phone] * Initial Assessments - Ines Combs, PT - 08/01/2024 9:40 AM EST Physical Therapy Evaluation Patient profile: Jimenez Marin is a 69 y.o. male admitted on 07/29/2024. Pt with PMHx of COPD, NJ s/p stents, recent smoker, chronic CP/SOB on [...] Placement Percutaneous Left 07/30/2024 Jamin Ugarte MD [facility] INTERVENTIONL RAD PRO CYSTOURETHROSCOPY, FULGUR >5CM LESN N/A 07/29/2024 CYSTO, RESECTION BLADDER TUMOR, GREATER THAN 5.0CM (WRVU 7.5) performed by Umu Frye MD at [facility] MAIN OR PRO UNLISTED PX RECTUM N/A 07/29/2024 EUA RECTUM (WRVU 7.56) performed by Umu Frye MD at [facility] MAIN OR Active Non-Hospital Problems Diagnosis [...] 27 minutes; Arash Combs PT DPT Pager: [phone] Physical Therapy Inpatient Rehabilitation Department * Consult [...] Illness: also consider consultation to BIT and pad cutter if appropriate History of Present Illness: Jimenez Marin is a(n) 69 y.o. male from [place], [place] with a past medical history (per chart review) of COPD (on home O2 as needed, CAD s/p NJ (around 2009, s/p 2 stents, on ASA), Bipolar (well- controlled on medications), history of tobacco use (quit in January 2024, previously smoked 1ppd since he was 13yo), previous marijuana use, and HTN who [place] [facility] [place] procedure in the setting of recently diagnosed bladder cancer. Jimenez initially presented to the ED in [facility] on 04/17/2024 for dysuria, and abdominal pain. [...] for TURBT +/- PCN v stent at [facility]. On 07/29, Jimenez underwent cystoscopy, and resection [...] pain. Of note, Jimenez was referred to [facility] ([phone]) by his rehabilitation program coordinator, Dr. 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 He last saw Dr. Bethany Byrd on 03/04/2024, who helped him to complete a COLST and AD. He hasnot been seen in this office since his bladder cancer diagnosis. 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 Does not name any family members who he is close with. Lives [place] a roommate, Erich Hawley, [place], [place]. No pets, but [...] confirmed that he is being seen at [facility] palliative care office for COPD, but [...] Marin is a(n) 69 y.o. male from [facility] with newly diagnosed Muscle invasive bladdercancer, [...] looks forward to returning to his [place] home. He has palliative care follow up scheduled for 09/02. This inpatient palliative care team will provide warm hand off to the [facility] office upon discharge to ensure that [...] palliative care provider, Dr. Bethany Byrd, at [facility] ([phone]) -Based on documentation of their most recent discussion, Code Status is DNAR/accepting of time limited trial of intubation if necessary. Jimenez aware his Code Status was changed for this procedure. However, POLST not changed as consistent with wishes for care outside of this acute hospital stay. -POLST and AD completed at outpatient Palliative Care office visit on 03/04/2024 (Available in [facility] media section). #Serious illness-associated symptom recommendations #Cancer [...] -Screened for spiritual care needs? No -Primary personal care worker: None; has some support from his roommate, Erich -Interdisciplinary Team members engaged: [] Palliative [employer]; [] BIT involved; [x] [facility]; [] [...] up scheduled with outpatient palliative care at [facility] on 09/02 I have reviewed the patient's case along with my assessment and recommendations collaboratively with my supervising Palliative faculty Dr. Fredrick Ritchie. Kristel Chung, DO Palliative care team pager #[phone] Associated attestation - Fredrick Ritchie MD - [...] care. As noted, we obtained records from [facility] where Jimenez has been [...] has had extensive conversations with Dr. Byrd(Palliative [facility]) about trying to identify a surrogate and [...] with both PCP and Palliative Care in [facility] would be ideal. Fredrick Ritchie MD Palliative [...] surrogate would be surrogate decision maker per [place] surrogate decision making law. (Only good for 180 days): Erich Hawley Any patient receiving care in [place] must abide by [place] law. The hierarchy for surrogate decision making [...] (i) The agent with financial power of contracts attorney or a conservator appointed in accordance with RSA 464-A. (j) The guardian of the patient???s estate. Advance Care Planning: Attempt Cardiopulmonary Resuscitation - Inpatient <no information> -Advanced Directive: No, declines (Pt states he has done an AD with Palliative Care, though cannot recall exactly with whom and from what agency. It was a woman, in [facility]. Contacted pt's PCP to get more [...] were you homeless or living in a fdc (including now)?: No In the past 12 [...] doesn't use/need it) Home Address confirmed as: [facility] [facility] [address] Social & Family Supports: All names listed [...] assess Primary Care Provider confirmed: Cintia Jones, CIGARETTE PACKER [phone] Patient/Caregiver Goals of Treatment: Recover and return [...] y.o. male with a history of COPD, NJ s/p stents, recently quitsmoking, gross hematuria, and bladder mass seen on a CT scan with office cystoscopy on 06/02/24 notable for a large sessile appearing left and right sided bladder wall/neck mass(es) noted. There was amass on the trigone and UO not visualized. He presents for TURBT/RPG, possible stent vs PCN. Pt lives with a roommate in a trailer in [facility]. Pt states that he lives [...] coordination of care as indicated. HARMONY Cotter, MOTION PICTURE ACTOR Autocad Designer Superintendent Overhead Distribution Office of Care Management [phone] * Op Note - Jocy Etienne MD - 07/29/2024 2:10 PM EST [facility] Oper[place] Note Patient Name: Jimenez Marin : [id number] MR#: [id number] Case Date: 06/24/2024 - 07/29/2024 Surgeon: Surgeons [...] y.o. male with a history of COPD, NJ s/p stents, recently quit smoking, gross hematuria, [...] also sees a palliative care physician in [facility],but doesn't know her name and doesn't [...] 1:30 PM EST Clinical [place] [address] 08/07/2024 3:30 PM EST Scheduled [place] [address] Pending Results Name Type Priority Associated Diagnoses [...] 2:50 AM EST Rectum Surgery Procedure Unlisted ([id number]) 07/29/2024 1:50 PM EST bladder tumor Cystourethroscopy, Fulgur >5Cm Lesn ([id number]) 07/29/2024 1:50 PM EST bladder tumor EKG 12-LEAD Routine 07/29/2024 1:16 PM EST Chest pain, unspecified type documented in this encounter Results * (ABNORMAL) Basic Metabolic Panel (08/02/2024 4:52 AM EST) Glucose 146 65 - 199 mg/dL 08/02/2024 5:35 AM [facility] Comment:Glucose Concentratio n >=200 mg/dL plus symptoms is consistent with Diabetes Mellitus. Blood Urea Nitrogen 18 10 - 20 mg/dL 08/02/2024 5:35 AM [facility] Creatinine 0.92 0.80 - 1.50 mg/dL 08/02/2024 5:35 AM [facility] Sodium 133(L) 135 - 145 mMol/L 08/02/2024 5:35 AM [facility] Potassium 4.1 3.5 - 5.0 mMol/L 08/02/2024 5:35 AM [facility] Chloride 96(L) 98 - 107 mMol/L 08/02/2024 5:35 AM [facility] Carbon Dioxide 28 22 - 31 mMol/L 08/02/2024 5:35 AM [facility] Anion Gap 9 5 - 15 mMol/L 08/02/2024 5:35 AM [facility] Calcium 9.9 8.5 - 10.5 mg/dL 08/02/2024 5:35 AM [facility] Est Glomerular Filtration Rate - Male 91 mL/min/1. 73 m?? 08/02/2024 5:35 AM [facility] Comment: This patient's estimated GFR [...] EST Umu Frye MD CHEMISTRY ORDERABL ES [facility] [place] [address] * (ABNORMAL) CBC (with Diff) (08/02/2024 4:52 AM EST) White Blood Cell 10.77(H) 4.00 - 9.50 x10(3)/mc L 08/02/2024 5:11 AM [facility] Red Blood Cell 3.69(L) 4.58 - 5.54 x10(6)/mc L 08/02/2024 5:11 AM [facility] Hemoglobin 10.8(L) 13.7 - 16.5 g/dL 08/02/2024 5:11 AM [facility] Hematocrit 33.7(L) 40.5 - 48.5 % 08/02/2024 5:11 AM [facility] Mean Cell Volume 91.3 82.9 - 93.1 fL 08/02/2024 5:11 AM [facility] Mean Cell Hemoglobin 29.3 27.5 - 32.1 pg 08/02/2024 5:11 AM [facility] Mean Cell Hemoglobin Concentration 32.0 32.0 - 35.7 g/dL 08/02/2024 5:11 AM [facility] Platelet 297 145 - 357 x10(3)/mc L 08/02/2024 5:11 AM [facility] Mean Platelet Volume 9.4 7.6 - 12.9 fL 08/02/2024 5:11 AM [facility] RDW Standard Deviation 53.3(H) 36.0 - 45.0 fL 08/02/2024 5:11 AM [facility] RDW coefficient of variation 15.9(H) 11.4 - 13.8 % 08/02/2024 5:11 AM [facility] NRBC% auto 0.0 % 08/02/2024 5:11 AM [facility] NRBC Absolute <0.01 <0.01 x10(3)/mc L 08/02/2024 5:11 AM [facility] Neutrophil % 75.2 % 08/02/2024 5:11 AM [facility] Neutrophil Absolute (ANC) - Automated 8.09(H) 1.70 - 6.10 x10(3)/mc L 08/02/2024 5:11 AM [facility] Lymph % 9.0 % 08/02/2024 5:11 AM [facility] Lymph Absolute 0.97 0.90 - 3.20 x10(3)/mc L 08/02/2024 5:11 AM [facility] Monocyte % 9.0 % 08/02/2024 5:11 AM [facility] Monocyte Absolute 0.97(H) 0.30 - 0.90 x10(3)/mc L 08/02/2024 5:11 AM [facility] Eos % 5.5 % 08/02/2024 5:11 AM [facility] Eos Absolute 0.59(H) 0.00 - 0.40 x10(3)/mc L 08/02/2024 5:11 AM [facility] Basophil % 0.6 % 08/02/2024 5:11 AM [facility] Baso Absolute 0.07 0.00 - 0.10 x10(3)/mc L 08/02/2024 5:11 AM [facility] Immature Gran % 0.7 % 5:11 AM [facility] Immature Gran Absolute 0.08(H) 0.00 - 0.04 x10(3)/mc L 08/02/2024 5:11 AM [facility] Blood VENOUS BLOOD SPECIMEN / Unknown Venipuncture / Unknown 08/02/2024 4:52 AM EST 08/02/2024 5:03 AM EST Umu Frye MD HEMATOLOGY ORDERAB LES [facility] [place] [address] * (ABNORMAL) Basic Metabolic Panel (08/01/2024 5:36 AM EST) Glucose 133 65 - 199 mg/dL 08/01/2024 6:37 AM [facility] Comment:Glucose Concentratio n >=200 mg/dL plus symptoms is consistent with Diabetes Mellitus. Blood Urea Nitrogen 21(H) 10 - 20 mg/dL 08/01/2024 6:37 AM [facility] Creatinine 1.04 0.80 - 1.50 mg/dL 08/01/2024 6:37 AM [facility] Sodium 133(L) 135 - 145 mMol/L 08/01/2024 6:37 AM [facility] Potassium 4.2 3.5 - 5.0 mMol/L 08/01/2024 6:37 AM [facility] Chloride 95(L) 98 - 107 mMol/L 08/01/2024 6:37 AM [facility] Carbon Dioxide 29 22 - 31 mMol/L 08/01/2024 6:37 AM [facility] Anion Gap 9 5 - 15 mMol/L 08/01/2024 6:37 AM [facility] Calcium 9.4 8.5 - 10.5 mg/dL 08/01/2024 6:37 AM [facility] Est Glomerular Filtration Rate - Male 78 mL/min/1. 73 m?? 08/01/2024 6:[address] [facility] Comment: This patient's estimated GFR [...] EST Umu Frye MD CHEMISTRY ORDERABL ES [facility] [place] [address] * (ABNORMAL) CBC (with Diff) (08/01/2024 5:36 AM EST) White Blood Cell 12.60(H) 4.00 - 9.50 x10(3)/mc L 08/01/2024 6:[address] [facility] Red Blood Cell 3.44(L) 4.58 - 5.54 x10(6)/mc L 08/01/2024 6:[address] [facility] Hemoglobin 10.2(L) 13.7 - 16.5 g/dL 08/01/2024 6:[address] [facility] Hematocrit 31.5(L) 40.5 - 48.5 % 08/01/2024 6:[address] [facility] Mean Cell Volume 91.6 82.9 - 93.1 fL 08/01/2024 6:[address] [facility] Mean Cell Hemoglobin 29.7 27.5 - 32.1 pg 08/01/2024 6:16 AM [facility] Mean Cell Hemoglobin Concentration 32.4 32.0 - 35.7 g/dL 08/01/2024 6:16 AM [facility] Platelet 316 145 - 357 x10(3)/mc L 08/01/2024 6:16 AM [facility] Mean Platelet Volume 9.2 7.6 - 12.9 fL 08/01/2024 6:16 AM [facility] RDW Standard Deviation 52.8(H) 36.0 - 45.0 fL 08/01/2024 6:16 AM [facility] RDW coefficient of variation 15.7(H) 11.4 - 13.8 % 08/01/2024 6:16 AM [facility] NRBC% auto 0.0 % 08/01/2024 6:16 AM [facility] NRBC Absolute <0.01 <0.01 x10(3)/mc L 08/01/2024 6:16 AM [facility] Neutrophil % 76.1 % 08/01/2024 6:16 AM [facility] Neutrophil Absolute (ANC) - Automated 9.59(H) 1.70 - 6.10 x10(3)/mc L 08/01/2024 6:16 AM [facility] Lymph % 9.4 % 08/01/2024 6:16 AM [facility] Lymph Absolute 1.19 0.90 - 3.20 x10(3)/mc L 08/01/2024 6:16 AM [facility] Monocyte % 9.5 % 08/01/2024 6:16 AM [facility] Monocyte Absolute 1.20(H) 0.30 - 0.90 x10(3)/mc L 08/01/2024 6:16 AM [facility] Eos % 4.0 % 08/01/2024 6:16 AM [facility] Eos Absolute 0.50(H) 0.00 - 0.40 x10(3)/mc L 08/01/2024 6:[address] [facility] Basophil % 0.5 % 08/01/2024 6:[address] [facility] Baso Absolute 0.06 0.00 - 0.10 x10(3)/mc L 08/01/2024 6:[address] [facility] Immature Gran % 0.5 % 6:16 AM [facility] Immature Gran Absolute 0.06(H) 0.00 - 0.04 x10(3)/mc L 08/01/2024 6:16 AM [facility] Blood VENOUS BLOOD SPECIMEN / Unknown Venipuncture / Unknown 08/01/2024 5:36 AM EST 08/01/2024 6:00 AM EST Umu Frye MD HEMATOLOGY ORDERAB LES Performing Organization Address City/State/[facility] Co de Phone Number [facility] [place] [address] * (ABNORMAL) Basic Metabolic Panel (07/31/2024 5:06 AM EST) Glucose 154 65 - 199 mg/dL 07/31/2024 6:00 AM [facility] Comment:Glucose Concentratio n >=200 mg/dL plus symptoms is consistent with Diabetes Mellitus. Blood Urea Nitrogen 17 10 - 20 mg/dL 07/31/2024 6:00 AM [facility] Creatinine 1.02 0.80 - 1.50 mg/dL 07/31/2024 6:00 AM [facility] Sodium 135 135 - 145 mMol/L 07/31/2024 6:00 AM [facility] Potassium 4.6 3.5 - 5.0 mMol/L 07/31/2024 6:00 AM [facility] Chloride 97(L) 98 - 107 mMol/L 07/31/2024 6:00 AM [facility] Carbon Dioxide 28 22 - 31 mMol/L 07/31/2024 6:[address] [facility] Anion Gap 10 5 - 15 mMol/L 07/31/2024 6:[address] [facility] Calcium 9.5 8.5 - 10.5 mg/dL 07/31/2024 6:[address] [facility] Est Glomerular Filtration Rate - Male 80 mL/min/1. 73 m?? 07/31/2024 6:[address] [facility] Comment: This patient's estimated GFR [...] EST Umu Frye MD CHEMISTRY ORDERABL ES [facility] [place] [address] * (ABNORMAL) CBC (with Diff) (07/31/2024 5:06 AM EST) White Blood Cell 16.51(H) 4.00 - 9.50 x10(3)/mc L 07/31/2024 5:[address] [facility] Red Blood Cell 3.78(L) 4.58 - 5.54 x10(6)/mc L 07/31/2024 5:[address] [facility] Hemoglobin 11.0(L) 13.7 - 16.5 g/dL 07/31/2024 5:[address] [facility] Hematocrit 34.6(L) 40.5 - 48.5 % 07/31/2024 5:31 AM [facility] Mean Cell Volume 91.5 82.9 - 93.1 fL 07/31/2024 5:31 AM [facility] Mean Cell Hemoglobin 29.1 27.5 - 32.1 pg 07/31/2024 5:31 AM [facility] Mean Cell Hemoglobin Concentration 31.8(L) 32.0 - 35.7 g/dL 07/31/2024 5:31 AM [facility] Platelet 322 145 - 357 x10(3)/mc L 07/31/2024 5:31 AM [facility] Mean Platelet Volume 9.0 7.6 - 12.9 fL 07/31/2024 5:31 AM [facility] RDW Standard Deviation 51.8(H) 36.0 - 45.0 fL 07/31/2024 5:31 AM [facility] RDW coefficient of variation 15.6(H) 11.4 - 13.8 % 07/31/2024 5:31 AM [facility] NRBC% auto 0.0 % 07/31/2024 5:31 AM [facility] NRBC Absolute <0.01 <0.01 x10(3)/mc L 07/31/2024 5:31 AM [facility] Neutrophil % 83.4 % 07/31/2024 5:31 AM [facility] Neutrophil Absolute (ANC) - Automated 13.77(H) 1.70 - 6.10 x10(3)/mc L 07/31/2024 5:31 AM [facility] Lymph % 6.1 % 07/31/2024 5:31 AM [facility] Lymph Absolute 1.00 0.90 - 3.20 x10(3)/mc L 07/31/2024 5:31 AM [facility] Monocyte % 8.2 % 07/31/2024 5:31 AM [facility] Monocyte Absolute 1.36(H) 0.30 - 0.90 x10(3)/mc L 07/31/2024 5:[address] [facility] Eos % 1.4 % 07/31/2024 5:[address] [facility] Eos Absolute 0.23 0.00 - 0.40 x10(3)/mc L 07/31/2024 5:[address] [facility] Basophil % 0.4 % 07/31/2024 5:[address] [facility] Baso Absolute 0.07 0.00 - 0.10 x10(3)/mc L 07/31/2024 5:[address] [facility] Immature Gran % 0.5 % 5:31 AM [facility] Immature Gran Absolute 0.08(H) 0.00 - 0.04 x10(3)/mc L 07/31/2024 5:[address] [facility] Blood VENOUS BLOOD SPECIMEN / Unknown Venipuncture / Unknown 07/31/2024 5:06 AM EST 07/31/2024 5:26 AM EST Umu Frye MD HEMATOLOGY ORDERAB LES Performing Organization Address [facility]/State/[facility] Co de Phone Number [facility] [place] [phone] * IR Nephrostomy Tube Placement Percutaneous Left [...] which were correct. The patient was positioned [id number] on the procedure table. ??The Left flank [...] Urine Culture No growth 08/01/2024 7:48 AM [facility] Urine URINE SPECIMEN FROM NEPHROSTOMY TUBE / Unknown Non Blood Collection / Unknown 07/30/2024 12:45 PM EST 07/30/2024 2:05 PM EST Jamin Ugarte MD MICROBIOLOGY - GENER AL ORDERABLES [facility] [place] [address] * (ABNORMAL) Basic Metabolic Panel (07/30/2024 5:03 AM EST) Glucose 119 65 - 199 mg/dL 07/30/2024 6:17 AM [facility] Comment:Glucose Concentratio n >=200 mg/dL plus symptoms is consistent with Diabetes Mellitus. Blood Urea Nitrogen 18 10 - 20 mg/dL 07/30/2024 6:17 AM [facility] Creatinine 0.82 0.80 - 1.50 mg/dL 07/30/2024 6:17 AM [facility] Sodium 134(L) 135 - 145 mMol/L 07/30/2024 6:17 AM [facility] Potassium 4.2 3.5 - 5.0 mMol/L 07/30/2024 6:17 AM [facility] Chloride 95(L) 98 - 107 mMol/L 07/30/2024 6:17 AM [facility] Carbon Dioxide 29 22 - 31 mMol/L 07/30/2024 6:17 AM [facility] Anion Gap 10 5 - 15 mMol/L 07/30/2024 6:17 AM [facility] Calcium 9.4 8.5 - 10.5 mg/dL 07/30/2024 6:17 AM [facility] Est Glomerular Filtration Rate - Male 96 mL/min/1. 73 m?? 07/30/2024 6:17 AM [facility] Comment: This patient's estimated GFR [...] EST Umu Frye MD CHEMISTRY ORDERABL ES [facility] [place] [address] * (ABNORMAL) CBC (with Diff) (07/30/2024 5:03 AM EST) White Blood Cell 11.30(H) 4.00 - 9.50 x10(3)/mc L 07/30/2024 6:02 AM [facility] Red Blood Cell 3.85(L) 4.58 - 5.54 x10(6)/mc L 07/30/2024 6:02 AM [facility] Hemoglobin 11.5(L) 13.7 - 16.5 g/dL 07/30/2024 6:02 AM [facility] Hematocrit 34.2(L) 40.5 - 48.5 % 07/30/2024 6:02 AM [facility] Mean Cell Volume 88.8 82.9 - 93.1 fL 07/30/2024 6:02 AM [facility] Mean Cell Hemoglobin 29.9 27.5 - 32.1 pg 07/30/2024 6:02 AM [facility] Mean Cell Hemoglobin Concentration 33.6 32.0 - 35.7 g/dL 07/30/2024 6:02 AM [facility] Platelet 342 145 - 357 x10(3)/mc L 07/30/2024 6:02 AM [facility] Mean Platelet Volume 9.0 7.6 - 12.9 fL 07/30/2024 6:02 AM [facility] RDW Standard Deviation 49.6(H) 36.0 - 45.0 fL 07/30/2024 6:02 AM [facility] RDW coefficient of variation 15.3(H) 11.4 - 13.8 % 07/30/2024 6:02 AM [facility] NRBC% auto 0.0 % 07/30/2024 6:02 AM [facility] NRBC Absolute <0.01 <0.01 x10(3)/mc L 07/30/2024 6:02 AM [facility] Neutrophil % 78.6 % 07/30/2024 6:02 AM [facility] Neutrophil Absolute (ANC) - Automated 8.87(H) 1.70 - 6.10 x10(3)/mc L 07/30/2024 6:02 AM [facility] Lymph % 8.9 % 07/30/2024 6:02 AM [facility] Lymph Absolute 1.01 0.90 - 3.20 x10(3)/mc L 07/30/2024 6:02 AM [facility] Monocyte % 8.9 % 07/30/2024 6:02 AM [facility] Monocyte Absolute 1.01(H) 0.30 - 0.90 x10(3)/mc L 07/30/2024 6:02 AM [facility] Eos % 2.7 % 07/30/2024 6:02 AM [facility] Eos Absolute 0.30 0.00 - 0.40 x10(3)/mc L 07/30/2024 6:02 AM [facility] Basophil % 0.5 % 07/30/2024 6:02 AM [facility] Baso Absolute 0.06 0.00 - 0.10 x10(3)/mc L 07/30/2024 6:[address] [facility] Immature Gran % 0.4 % 6:[address] [facility] Immature Gran Absolute 0.05(H) 0.00 - 0.04 x10(3)/mc L 07/30/2024 6:[address] [facility] Blood VENOUS BLOOD SPECIMEN / Unknown Venipuncture / Unknown 07/30/2024 5:03 AM EST 07/30/2024 5:50 AM EST Umu Frye MD HEMATOLOGY ORDERAB LES [facility] [place] [address] * CT Chest Abdomen Pelvis w Contrast (Generic) (07/30/2024 2:50 AM EST) WORKSTATION ID [id number] DH RAD Anatomical Region Laterality Modality Abdomen, [...] who have questions please contact the health critical care educator that requested your imaging first. ? Narrative [...] patients who have questions please contactthe health critical care educator that requested your imaging first. Umu Frye MD IMG CT ORDERABLES * EKG 12 Lead (07/29/2024 1:16 PM EST) Ventricular rate 79 BPM MUSE SYSTEM Atrial Rate 79 BPM MUSE SYSTEM P-R Interval 120 ms MUSE SYSTEM QRS Duration 92 ms MUSE SYSTEM Q-T Interval 400 ms MUSE SYSTEM QTC Calculated (Bezet) 458 ms MUSE SYSTEM Calculated P Sunset 7 degrees MUSE SYSTEM Calculated R Sunset 70 degrees MUSE SYSTEM Calculated T Sunset 88 degrees MUSE SYSTEM INTERPRETATION Normal sinus [...] documented in this encounter Visit Diagnoses Diagnosis Bladder tumor- Primary Neoplasm of unspecified nature of bladder Unstable angina Intermediate coronary syndrome Chest pain, unspecified type Bladder tumor Neoplasm of unspecified nature of bladder Unsteady gait Abnormality of gait Severe protein-calorie malnutrition Other severe protein-calorie malnutrition documented in this encounter Admitting Diagnoses Diagnosis Bladder [...] Given 08/01/2024 9:47 AM EST 2 .Inhalation ciprofloxacin (Cipro) tablet 500 mg 500 mg, Oral, ONCE, 1 dose, On Sun07/30/24 at 1215, Give this medication 2 hours BEFORE, or 6 hours AFTER products with multivalent cations (e.g. Calcium, Iron, Zinc, Magnesium, Aluminum). Do not coadminister, Angio/IR (Day of Procedure), Routine, Indication for (Active or Suspected): Prophylaxis Given 07/30/2024 12:15 PM EST 500 mg citalopram (CeleXA) tablet 20 mg 20 mg, Oral, DAILY, First dose on Sun07/29/24 at 1745, Until Discontinued, Routine Given 08/02/2024 10:43 AM EST 20 mg Given 08/01/2024 9:47 AM EST 20 mg Given 07/31/2024 8:55 AM EST 20 mg docusate sodium (Colace) capsule 100 mg 100 mg, Oral, 2 TIMES DAILY, First dose on Sun07/29/24 at 2100, Until Discontinued, Routine Given 07/31/2024 8:56 AM EST 100 mg Given 07/30/2024 8:06 PM EST 100 mg Given 07/30/2024 9:46 AM EST 100 mg escitalopram (Lexapro) tablet 20 mg 20 mg, Oral, DAILY AT NOON, First dose on Sun07/30/24 at 1200, Until Discontinued, Routine Given 08/02/2024 11: 33 AM EST 20 mg Given 08/01/2024 1:06 PM EST 20 mg Given 07/31/2024 11:51 AM EST 20 mg fentaNYL (pf) (50 mcg/mL) multi-dose injection 25 mcg 25 mcg, Intravenous, EVERY 5 MIN PRN, Starting on Sun07/29/24 at 1550, Until Sun07/29/24 at 2009, Pain, Mild to moderate pain (1-5 out of 10), Hold for respiratory rate less than 10 per minute. Maximum dose 200 mcg over one hour, including OR administration. If ordered with HYDROmorphone or morphine, give HYDROmorphone or morphine first and use fentaNYL for breakthrough pain., PACU Recovery, Routine Given 07/29/2024 4:24 PM EST 25 mcg Given 07/29/2024 3:56 PM EST 25 mcg fentaNYL (pf) (50 mcg/mL) multi-dose injection 25-50 mcg 25-50 mcg, Intravenous, EVERY 3 MIN PRN, Starting on Sun07/30/24 at 1154, Until Sun07/30/24 at 1406, Pain, per unit protocol, For use in Interventional Radiology (IR) only for procedural sedation with direct provider supervision and verbal order. - Start dose: 50 mcg (reduce dose to 25 mcg if history of sedation sensitivity). - Titration dose: 25-50 mcg IV, (based on patient response) every 3 minutes PRN to maintain procedural pain less than 2 per Pain Scale. Maximum dose: 50 mcg/dose, 250 mcg/hour, Angio/IR (Intra-Procedure), Routine Given 07/30/2024 12:49 PM EST 25 mcg Given 07/30/2024 12:46 PM EST 25 mcg Given 07/30/2024 12:37 PM EST 50 mcg fentaNYL (pf) (50 mcg/mL) multi-dose injection 50 mcg 50 mcg, Intravenous, EVERY 5 MIN PRN, Starting on Sun07/29/24 at 1550, Until Sun07/29/24 at 2009, Pain, Moderate to severe pain (6-10 out of 10), Hold for respiratory rate less than 10 per minute. Maximum dose 200 mcg over one hour, including OR administration. If ordered with HYDROmorphone or morphine, give HYDROmorphone or morphine first and use fentaNYL for breakthrough pain., PACU Recovery, Routine Given 07/29/2024 4:10 PM EST 50 mcg heparin (porcine) (5,000 units/1 mL) subcutaneous injection [...] SBP >180. Hold HR >100 HYDROmorphone (Dilaudid) (1 mg/mL) injection syringe 0.5 mg 0.5 mg, Intravenous, EVERY 4 HOURS PRN, Starting on Sun07/29/24 at 1248, Until Sun07/30/24 at 0937, Pain, Rescue dose, For moderate or severe pain (4-10) unrelieved at least 30 minutes after initial PRN dose was administered Max 3 doses/24 hours. If pain still unrelieved after 3rd rescue dose within 24 hours, contact provider. If multiple routes of administration ordered, oral route first line. If unable to take oral medication(s), may give subcutaneously or intravenously, if ordered., Routine Given 07/30/2024 9:02 AM EST 0.5 mg Given 07/29/2024 1:18 PM EST 0.5 mg Given 07/29/2024 1:06 PM EST 0.5 mg HYDROmorphone (Dilaudid) (1 mg/mL) injection syringe 1 mg 1 mg, Intravenous, EVERY 4 HOURS PRN, Starting on Sun07/29/24 at 1248, Until Sun07/30/24 at 0937, Pain, Severe Pain (7-10), If multiple routes of administration ordered, oral route first line. If unable to take oral medication(s), may give subcutaneously or intravenously, if ordered., Routine Given 07/29/2024 10:11 PM EST 1 mg HYDROmorphone (Dilaudid) (2 mg/mL) multi-dose injection solution 0.4 mg 0.4 mg, Intravenous, EVERY 10 MIN PRN, Starting on Sun07/29/24 at 1550, Until Sun07/29/24 at 2009, Pain, For Mild to Moderate Pain (1-5 out of 10), Hold for respiratory rate less than 10 per minute. Maximum dose 4 mg over one hour including administrations in the OR. If multiple pain medications are ordered, start with HYDROmorphone or morphine and use fentaNYL for breakthrough pain., PACU Recovery, Routine Given 07/29/2024 7:13 PM EST 0.4 mg HYDROmorphone (Dilaudid) tablet 2 mg 2 mg, Oral, EVERY 6 HOURS PRN, Starting on Sun07/30/24 at 1953, Until Sun07/31/24 at 1558, Pain, for breakthrough pain, Routine Given 07/31/2024 11:51 AM EST 2 mg Given 07/31/2024 5:34 AM EST 2 mg Given 07/30/2024 8:06 PM EST 2 mg iohexoL (Omnipaque) (350 mg/mL) solution 0-200 mL 0-200 mL, Intravenous, ONCE PRN, 1 dose, Starting on Sun07/30/24 at 0255, Until Sun07/30/24 at 0256, Per Protocol, Warning Vesicant/Irritant Medication , Routine Given 07/30/2024 2:56 AM EST 69 mLs iohexoL (Omnipaque) (350 mg/mL) solution 1-400 mL 1-400 mL, Other, ONCE, 1 dose, On Sun07/30/24 at 1245, For intra-procedural use by proceduralist., Angio/IR (Intra-Procedure), Routine Given 07/30/2024 12:45 PM EST 10 mLs iohexoL (Omnipaque) radiology oral prep (50 mL of oral contrast) 240 mL, Oral, ONCE, 1 dose, On Sun07/29/24 at 2330, Administer 8 ounce cup (240 ml) of diluted contrast mixture 3 hours before scan, as tolerated. *Take a 1 liter (1,000 mL) bottle of water or non-carbonated beverage, pour out 50 mL. *Open 1 bottle (50 mL) of Omnipaque 350 and pour into bottle of water or non-carbonated beverage. *Close cover and shake vigorously. Refrigerate if desired. *1 liter (1,000 mL) bottle of water or non-carbonated beverage mixed with 1 bottle (to mL) of Omnipaque 350 is now referred to as DILUTED CONTRAST MIXTURE, see above for administration instructions. *The patient should not eat food or drink any other liquids during the entire period in which they are drinking the contrast., Routine Given 07/29/2024 11:30 PM EST 240 mLs iohexoL (Omnipaque) radiology oral prep (50 mL of oral contrast) 240 mL, Oral, ONCE, 1 dose, On Sun07/30/24 at 0030, Administer 8 ounce cup (240 ml) of diluted contrast mixture 2 hours before scan, as tolerated. *Take a 1 liter (1,000 mL) bottle of water or non-carbonated beverage, pour out 50 mL. *Open 1 bottle (50 mL) of Omnipaque 350 and pour into bottle of water or non-carbonated beverage. *Close cover and shake vigorously. Refrigerate if desired. *1 liter (1,000 mL) bottle of water or non-carbonated beverage mixed with 1 bottle (to mL) of Omnipaque 350 is now referred to as DILUTED CONTRAST MIXTURE, see above for administration instructions. *The patient should not eat food or drink any other liquids during the entire period in which they are drinking the contrast., Routine Given 07/30/2024 12:30 AM EST 240 mLs iohexoL (Omnipaque) radiology oral prep (50 mL of oral contrast) 240 mL, Oral, ONCE, 1 dose, On Sun07/30/24 at 0130, Administer 8 ounce cup (240 ml) of diluted contrast mixture 1 hour before scan, as tolerated. *Take a 1 liter (1,000 mL) bottle of water or non-carbonated beverage, pour out 50 mL. *Open 1 bottle (50 mL) of Omnipaque 350 and pour into bottle of water or non-carbonated beverage. *Close cover and shake vigorously. Refrigerate if desired. *1 liter (1,000 mL) bottle of water or non-carbonated beverage mixed with 1 bottle (to mL) of Omnipaque 350 is now referred to as DILUTED CONTRAST MIXTURE, see above for administration instructions. *The patient should not eat food or drink any other liquids during the entire period in which they are drinking the contrast. , Routine Given 07/30/2024 1:30 AM EST 240 mLs iohexoL (Omnipaque) radiology oral prep (50 mL of oral contrast) 240 mL, Oral, ONCE, 1 dose, On Sun07/30/24 at 0215, Administer 8 ounce cup (240 ml) of diluted contrast mixture 20 mins before scan, as tolerated. *Take a 1 liter (1,000 mL) bottle of water or non-carbonated beverage, pour out 50 mL. *Open 1 bottle (50 mL) of Omnipaque 350 and pour into bottle of water or non-carbonated beverage. *Close cover and shake vigorously. Refrigerate if desired. *1 liter (1,000 mL) bottle of water or non-carbonated beverage mixed with 1 bottle (to mL) of Omnipaque 350 is now referred to as DILUTED CONTRAST MIXTURE, see above for administration instructions. *The patient should not eat food or drink any other liquids during the entire period in which they are drinking the contrast., Routine Given 07/30/2024 2:15 AM EST 240 mLs ipratropium-albuteroL (Duoneb) 0.5 mg-3 mg(2.5 mg base)/3 [...] Given 07/29/2024 5:04 PM EST 5 mg lactated ringers infusion 1,000 mL, at 100 mL/hr, Intravenous, CONTINUOUS, Starting on Sun07/29/24 at 1230, Until Sun07/29/24 at 1726, Day of Surgery (Day of Procedure) Restarted 07/29/2024 1:48 PM EST New Bag 07/29/2024 12:47 PM EST 1,000 mLs 100 mL/hr lactated ringers infusion 100 mL/hr, Intravenous, CONTINUOUS, Starting on Sun07/30/24 at 1000, Until Sun07/30/24 at 1408 New Bag 07/30/2024 10:01 AM EST 100 mL/hr 100 mL/hr lamoTRIgine (LaMICtal) tablet 50 mg 50 mg, Oral, 2 TIMES DAILY, First dose on Sun07/29/24 at 2100, Until Discontinued Given 08/02/2024 10:44 AM EST 50 mg Given 08/01/2024 9:02 PM EST 50 mg Given 08/01/2024 9:48 AM EST 50 mg lidocaine (Xylocaine) 1% (10 mg/mL) injection 10 mg 10 mg, Subcutaneous, ONCE, 1 dose, On Sun07/30/24 at 1215, For use in Interventional Radiology (IR) only for procedure with direct provider supervision and verbal order., Angio/IR (Intra-Procedure), Routine Given 07/30/2024 12:46 PM EST 10 mg 20-Other (document i n comment section) lisinopriL (Zestril) tablet 10 mg 10 mg, Oral, DAILY, First dose on Sun07/29/24 at 1800, Until Discontinued, Routine Given 08/02/2024 10:45 AM EST 10 mg Given 08/01/2024 9:47 [...] NOT exceed 2 mg total dose. At [facility] or [facility], call provider if naloxone administered. At [facility], If ineffective, call HERT team [phone]. At [facility], page rapid response team., Routine oxyCODONE (Roxicodone) tablet 2.5 mg 2.5 mg, Oral, EVERY 4 HOURS PRN, Starting on Sun07/29/24 at 1532, Until Sun07/30/24 at 0937, Pain, Routine Given 07/30/2024 5:56 AM EST 2.5 mg Given 07/29/2024 4:35 PM EST 2.5 mg oxyCODONE (Roxicodone) tablet 2.5 mg 2.5 mg, [...] PRN, Starting on Sun07/30/24 at 0935, Until Sun08/02/24 at 1556, Pain, moderate to severe pain [...] Claudia Mckeon, NING)1534 (Given - Provider: Claudia Mckeon RN)2102 (Given - Provider: Gian Sung RN) 024 (Given - Provider: Gian Sung RN)1044 (Given [...] RN) 0947 (Given - Provider: Claudia Mckeon RN)2103 (Given - Provider: Gian Sung RN) 1043 (Given - Provider: Claudia Mckeon RN) citalopram (CeleXA) tablet 20 mg 20 mg, Oral, DAILY, First dose on Sun07/29/24 at 1745, Until Discontinued, Routine 0855 (Given - Provider: Marcia Chaney RN) 0947 (Given - Provider: Cluadia Mckeon RN) 1043 (Given - Provider: Claudia [...] Mckeon RN) 1133 (Given - Provider: Claudia Mckeon RN) heparin (porcine) (5,000 units/1 mL) subcutaneous injection 5,000 Units 5,000 Units, Subcutaneous, EVERY 8 HOURS SCHEDULED, First dose on Sun07/29/24 at 1600, Until Discontinued, Routine 0534 (Given - Provider: Gian Sung RN)1348 (Given - Provider: Marcia Chaney RN)2150 (Given - Provider: Gian Sung RN) 0628 (Given - Provider: Gian Sung RN)1535 (Given - Provider: Claudia Mckeon RN)2102 (Given - Provider: Gian Sung RN) 0601 [...] Claudia Mckeon RN)1306 (Given - Provider: Claudia Mckeon RN)1758 (Given - Provider: Claudia Mckeon RN)2104 (Given - Provider: Gian Sung RN) 0242 [...] RN) 0948 (Given - Provider: Claudia Mckeon RN)2102 (Given - Provider: Gian Sung RN) 1044 (Given - Provider: Claudia Mckeon RN) lisinopriL [...] Discontinued, DO NOT CRUSH OR OPEN, Routine 215 (Given - Provider: Gian Sung RN) 0949 (Given - Provider: Claudia Mckeon RN)2102 (Given - Provider: Gian Sung RN) 104 (Given - Provider: Claudia Mckeon RN) pantoprazole EC (Protonix) tablet 40 mg 40 mg, Oral, DAILY, First dose on Sun07/29/24 at 1745, Until Discontinued 900 (Given - Provider: Marcia Chaney RN) 0948 (Given - Provider: Claudia Mckeon RN) 104 (Given - Provider: Claudia Mckeon RN) polyethylene glycoL (Miralax) packet 17 g 17 g, Oral, DAILY, First dose on Sun07/29/24 at 1815, Until Discontinued, Routine 0854 (Given - Provider: Marcia Chaney RN) 0949 (Given - Provider: Claudia Mckeon RN) 1044 (Given - Provider: Claudia Mckeon RN) QUEtiapine (Seroquel) tablet 50 mg 50 mg, Oral, 2 TIMES DAILY, First dose on Sun07/29/24 at 2100, Until Discontinued, Routine 0855 (Given - Provider: Marcia Chaney RN)2007 (Given - Provider: Gian Sung RN) 947 (Given - Provider: Claudia Mckeon RN)2102 (Not Given - Provider: Gian Sung RN - Reason: Contraindicated) 104 (Given - Provider: Claudia Mckeon RN) senna-docusate (Pericolace) 8.6-50 mg per tablet 2 tablet 2 tablet, Oral, 2 TIMES DAILY, First dose on Sun07/31/24 at 2100, Until Discontinued, Routine 2007 (Given - Provider: Gian Sung RN) 0948 (Given - Provider: Claudia Mckeon, NING)2101 (Given - Provider: Gian Sung RN) 104 (Given - Provider: Claudia Mckeon, NING) tiotropium (Spiriva Respimat) 2.5 mcg/actuation inhaler 2 puff(Linked Group 1) 2 puff, Inhalation, DAILY, First dose on Sun07/29/24 at 1815, Until Discontinued 08 (Given - Provider: Marcia Chaney RN) 09 (Given - Provider: Claudia Mckeon, NING) 104 (Given - Provider: Claudia Mckeon, NING) traZODone [...] NOT exceed 2 mg total dose. At [facility] or [facility], call provider if naloxone administered. At [facility], If ineffective, call HERT team [phone]. 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
--- OUTSIDE RECORDS SUMMARY | 2024-08-06 12:09 | XMS_ITS | Encounter Summary ---
Author Organization [facility] Address [facility] [place] [address] Care Team Providers Care Reach Truck Operator Name Role Phone Cintia Jones APRN Primary Care Provider [phone] Reason for Visit * Auth/Cert (Routine) Specialty Diagnoses / Procedures Referred By Christin connelly Referred To Contact Diagnoses Bladder tumor to Procedures PRO CYSTOURETHROSCOPY, FULGUR >5CM LESN PRO CYSTOURETHROSCOPY, URETER CATHETER CYSTO, RESECTION BLADDER TUMOR, GREATER THAN 5.0CM (WRVU 7.5) CYSTO, RETROGRADE, URETEROPYELOGRAPHY (WRVU 2.37) Joseph Frye MD [facility] [place] [address] [place] Referral ID Status Reason Start Date Expiration Date Visits Re quested Visits Authorized [id number] 1 1 Encounter Details Date Type Department Care Team (Late st Contact Info) Description 07/29/2024 1:48 PM EST Anesthesia [place] [address] Robb Velasquez MD [facility] [place] [address] Eulalio Ayoub MD [facility] [address] Anesthesia Record Procedure Summary Procedure Name Responsible Anesthesiologist Anesthesia Start Time Anesthesia Stop Time CYSTO, RESECTION BLADDER TUMOR, GREATER THAN 5.0CM (WRVU 7.5) (Bladder) Robb Velasquez MD 07/29/24 1348 07/29/24 1540 Events Date Time Event Comment 07/29/2024 1328 1348 AN Verify 1348 Start 1348 An Start Data 1358 Spinal 1359 Anesthesia Ready 1405 Procedure Start 1535 an stop data 1540 Recovery or ICU Handoff Sherrie ent care was transferred to the destination unit staff after review of the patient's medical history, current anesthetic/surgical status and plan, according to the Provider Handoff Checklist. 1540 Stop Meds Name Total ceFAZolin (Ancef) 2 g vial a ttach to sodium chloride 0.9% 100 mL Mini-Bag Plus 2 g propofol INF 24.79 mg dexmedeTOMIDine 4 mcg/mL 12 mcg BUpivacaine 0.75% with Dextrose 15 mg lactated ringers infusion 300 mL * Agents Name O2 Air N2O * Blood No blood administrations on file. Lines, Drains, and Airways Type Details Placement Removal Urethral Catheter 07/29/24; 1523; Urol ogic surgery; indwelling double lumen catheter; hydrophilic coated; 22; 1; 10; 10; drainage bag 07/29/24 1523 by Robb nAtony RN PIV 07/29/24; 1246; [id number] catheter system; 22 gauge; basilic vein (medial side of arm), right; Anatomical Landmarks; distraction, appears comfortable, tolerated well; no longer indicated, catheter/device intact; 08/02/24; 1245 07/29/24 1246 by Nela Fajardo, RN 08/02/24 1245 by Claudia Mckeon RN documented in this encounter Social History Tobacco Use Types Packs/Day Years Used Date Smoking Tobacco: Former Cigarettes Smokeless Tobacco: Never Comments:Quit 4 months ago p er pt. Alcohol Use Standard Drinks/Week Comments Not Currently 0 (1 standard drink = 0.6 oz pure alcohol) was a heavy drinker, now drinks <3beers per month [facility] Utilities Answer Date Recorded In the past 12 months has [employer], oil, or water [employer] threatened to shut off services in your [...] [facility] the [facility] were you [facility] or living in a intermediate (including now)? No 07/30/2024 DH IPV Inpatient [...] on file documented as of this encounter OR Notes * Anesthesia Postprocedure Evaluation - Robb Velasquez MD - 07/29/2024 3:41 PM EST Department of Anesthesiology Post-procedure Note Patient: Jimenez Marin Procedure Summary Date: 07/29/24 Room / Location: [facility] OR [facility] MAIN OR Anesthesia Start: 1348 Anesthesia Stop: 1540 Procedures: CYSTO, RESECTION BLADDER TUMOR, GREATER THAN 5.0CM (WRVU 7.5) (Bladder) EUA RECTUM (WRVU 7.56) Diagnosis: (bladder tumor) Surgeons: Joseph Frye MD Responsible Provider: Robb Velasquez MD Anesthesia Type: general ASA Status: 4 All Anesthesia Providers: Anesthesiologist: Robb Velasquez MD Student Nurse New Car Sales Manager: Lincoln Hoskins Vitals Value Taken Time BP 134/74 07/29/24 1536 Temp Pulse 78 07/29/24 1541 Resp 16 07/29/24 1541 SpO2 96 % 07/29/24 1541 Pain Level Vitals shown include unfiled device data. Patient Location: PACU/[facility] Level of Consciousness: Awake and Alert Pain Management: Satisfactory Analgesia PONV: None Cardiovascular Status: At Baseline and Hemodynamically Stable Respiratory Status: At Baseline and Room Air Postoperative Fluid Status: Intravascular EUvolemia Possible Anesthetic Complications: NONE apparent at time of evaluation Final Primary Anesthesia Type: Spinal (The anesthetic type performed was the same as planned.) Comments: Spinal still resolving ROBB VELASQUEZ MD * Anesthesia Procedure Notes - Lincoln Hoskins - 07/29/2024 2:10 PM EST Associated Order(s): Neuraxial Block Procedure: Neuraxial Block Primary Anesthetic Type: Spinal The patient was greeted. The sedation plan, its benefits, risks and alternatives were discussed with the patient. The patient has consented to the procedure. The medical history and chart were reviewed. The timeout was performed. Start time: 07/29/2024 1:50 PM End time: 07/29/2024 1:58 PM Patient Location: Operating Room Patient Prep Position: Sitting Prep: Hand Hygiene, Hat, Mask, Sterile Gloves, Chlorhexidine and Patient Draped Injection technique: single-shot Skin Anesthetic Lidocaine 1% 1 ml Procedure Technique Level of needle insertion: L4-5 Needle approach: midline Needle Type: Pencan Number of attempts: 1 Medications: Date/Time: 07/29/2024 1:50 PM BUpivacaine 0.75% with Dextrose - Intrathecal 15 mg - 07/29/2024 1:50:00 PM Events/Notes Events: None Additional Notes: SAB inserted easily on 1st attempt, uneventful. Patient tolerated the procedure well. + free flow of CSF before & after injection of bupivacaine. - heme - paresthesia. Patient turned to lay on side with operative side down immediately upon completion of SAB procedure. Performed by: SRNA: Lincoln Hoskins Attending Physician: Robb Velasquez MD Authorized by: Robb Velasquez MD ~~~~~~~~~~~~~~~~~~~~~~~~~~~~~~~~~~~~~~~~~~~~~~~~~~~~~~~~~~~~ * Anesthesia Preprocedure Evaluation - Robb Velasquez MD - 06/24/2024 8:51 AM EDT Pre-Anesthesia Evaluation for: Jimenez Marin a 69 y.o. male. Procedure(s): CYSTO, RESECTION BLADDER TUMOR, GREATER THAN 5.0CM (WRVU 7.5) CYSTO, RETROGRADE, URETEROPYELOGRAPHY (WRVU 2.37) Patient Active Problem List Diagnosis Date Noted ??? Facial fracture due to fall 05/07/2020 ??? Splenic laceration 06/14/2018 ??? Pain in right shoulder 02/24/2016 No past medical history on file. No past surgical history on file. Social History Tobacco Use ??? Smoking status: Former Current packs/day: 0.25 Types: Cigarettes ??? Smokeless tobacco: Never ??? Tobacco comments: Quit 4 months ago per pt. Substance Use Topics ??? Alcohol use: No Comment: was drinking a 6 pack to a case a day Social History Substance and Sexual Activity Drug Use No Allergies Allergen Reactions ??? Simvastatin ??? Tegretol [Carbamazepine] Medications: MAR and/or home medications have been reviewed. Physical Exam: Preprocedure Vitals Current as of 06/24/24 0851 No BP, pulse, respiration, SpO2, or temperature recorded. Height: Weight: BMI: IBW: Airway Assessment: Mallampati: II bearded Cardiovascular Assessment: Rhythm: regular PE comment: Unable to hear heart sounds Pulmonary Assessment: breath sounds clear to auscultation (+) wheezes and decreased breath sounds Dental Assessment: (+) edentulous Misc Assessment: IV access: Peripheral line None Anesthesia Plan: ASA 4 general, with a(n) intravenous induction Patient is a 69-year-old male with hx of CAD s/p stents (on plavix), COPD (O2 dependent), HTN, HLD,prior heavy tobacco use scheduled for cystoscopy and resection of bladder tumor under anesthesia. He is n.p.o. since he has not take his meds this morning denies any recent URI. Last plavix dose was on 07/21/24. Plan for SAB with GA backup. Patient wishes to remain full code. Discussed risks of , and prolonged intubation/ICU stay post op. Region - Other Informed Consent: Anesthetic plan and risks discussed with patient. Plan discussed with CRIME SCENE TECHNICIAN and attending. Anesthesia Screening documented in this encounter Plan of Treatment Upcoming Encounters Date Type Department Care Team (Late st Contact Info) Description 08/07/2024 1:30 PM EST [place] [address] 08/07/2024 3:30 PM EST [place] [address] documented as of this encounter Procedures Procedure Name Priority Date/Time Associated Diagnosis Comments ANE NEURAXIAL APS USE Routine 07/29/2024 1:50 PM EST documented in this encounter Results * Neuraxial Block (07/29/2024 1:50 PM EST) [...] insertion: L4-5 Needle approach: midline Needle Type: Penboom Number of attempts: 1 Medications: Date/Time: ??07/29/2024 [...] Velasquez MD ?? ~~~~~~~~~~~~~~~~~~~~~~~~~~~~~~~~~~~~~~~~~~~~~~~~~~~~~~~~~~~~ Robb Velasquez MD HOSPITAL CLEANING SPECIALIST [facility] documented in this encounter Visit Diagnoses Not on filedocumented in this encounter Administered Medications Inactive Administered Medications - up to 3 most recent administrations Medication Order MAR Action Action Date Dose Rate Site BUPivacaine (pf) (Sensorcaine) (7.5 mg/mL) 0.75% in dextrose 8.25% INTRATHECAL injection Intrathecal, Starting on Sun07/29/24 at 1350, Until Sun07/29/24 at 1350, Anesthesia Intra-op, Routine Given 07/29/2024 1:50 PM EST 15 mg ceFAZolin (Ancef) 2 g vial attach to sodium chloride 0.9% 100 mL Mini-Bag Plus 2 g, Intravenous, STATIONARY STEAM ENGINEER TO O.R., 1 dose, On Sun07/29/24 at 1230, Administer over 30 Minutes, Indication for (Active or Suspected): Prophylaxis New Bag 07/29/2024 2:02 PM EST 2 g dexmedeTOMIDine (Precedex) (4 mcg/mL) bolus injection (Anesthsia) Intravenous, PRN, Starting on Sun07/29/24 at 1410, Until Sun07/29/24 at 1540, Anesthesia Intra-op, Routine Given 07/29/2024 2:49 PM EST 4 mcg Given 07/29/2024 2:14 PM EST 4 mcg Given 07/29/2024 2:10 PM EST 4 mcg lactated ringers infusion 1,000 mL, at 100 mL/hr, Intravenous, CONTINUOUS, Starting on Sun07/29/24 at 1230, Until Sun07/29/24 at 1726, Day of Surgery (Day of Procedure) Restarted 07/29/2024 1:48 PM EST New Bag 07/29/2024 12:47 PM EST 1,000 mLs 100 mL/hr propofoL (Diprivan) (10 mg/mL) infusion Intravenous, CONTINUOUS PRN, Starting on Sun07/29/24 at 1404, Until Sun07/29/24 at 1540, Anesthesia Intra-op, Routine New Bag 07/29/2024 2:04 PM EST 30 mcg/kg/min 8.262 mL/hr documented in this encounter Care Teams Reach Truck Operator Relationship Specialty Start Date End Date Cintia Jones, DIRECTOR OF HEALTHCARE SYSTEMS [place] [address] PCP - General Family Medicine 05/09/24 documented as of this encounter
--- OUTSIDE RECORDS SUMMARY | 2024-08-06 12:09 | XMS_ITS | Encounter Summary ---
[place] [address] Care Team Providers Care Farm Equipment Technician Name Role Phone Cintia Jones APRN Primary Care Provider [phone] Reason for Referral * Consultation (Urgent) - Authorized Specialty Diagnoses / Procedures Referred By Christin connelly Referred To Contact Urology Diagnoses Dysuria Hematuria, unspecified type Hydronephrosis, unspecified hydronephrosis type Cintia Jones APRN [address] [place] [address] [facility] [place] [address] Referral ID Status Reason Start Date Expiration Date Visits Requested Visits Authorized [id number] Authorized Consult, Test & Treat PCP Updated and/or Approved 04/23/2024 04/23/2025 6 6 Encounter Details Date Type Department Care Team (Latest Contact Info) Description 05/09/2024 Transcribe Orders eDH Incoming Referrals [phone] Cintia Jones APRN [address] [place], [place] [id number] Dysuria; Hematuria, unspecified type; Hydronephrosis, unspecified hydronephrosis type Social History Tobacco Use Types Packs/Day Years [...] 1:30 PM EST Clinical [place] [address] 08/07/2024 3:30 PM EST Scheduled [place] [address] Scheduled Referrals Name Type Priority Associated Diagnoses Orde r Schedule Referral to Urology Outpatient Referral Urgent Dysuria Hematuria, unspecified type Hydronephrosis, unspecified hydronephrosis type Ordered: 05/09/2024 documented as of this encounter Visit Diagnoses Diagnosis Dysuria Hematuria, unspecified type Hydronephrosis, unspecified hydronephrosis type documented in this encounter Care Teams Farm Equipment Technician Relationship Specialty Start Date End Date Cintia Jones APRN [address] [place] [address] PCP - General Family Medicine 05/09/24 documented as of this encounter
--- OUTSIDE RECORDS SUMMARY | 2024-08-06 12:09 | XMS_ITS | Encounter Summary ---
Author Organization [facility] Address [facility] [place] [address] Care Team Providers Care Division Superintendent Name Role Phone Cintia Jones APRN Primary Care Provider [phone] Reason for Visit * Auth/Cert (Routine) Specialty Diagnoses / Procedures Referred By Christin connelly Referred To Contact Diagnoses Bladder tumor to Procedures PRO CYSTOURETHROSCOPY, FULGUR >5CM LESN PRO CYSTOURETHROSCOPY, URETER CATHETER CYSTO, RESECTION BLADDER TUMOR, GREATER THAN 5.0CM (WRVU 7.5) CYSTO, RETROGRADE, URETEROPYELOGRAPHY (WRVU 2.37) Joseph Frye MD [facility] [place] [address] [facility] Referral ID Status Reason Start Date Expiration Date Visits Re quested Visits Authorized [id number] 1 1 Encounter Details Date Type Department Care Team (Late st Contact Info) Description 07/29/2024 11:00 AM EST Laboratory [place] [address] Social History Tobacco Use Types Packs/Day Years Used Date Smoking Tobacco: Former Cigarettes Smokeless Tobacco: Never Comments:Quit 4 months ago p er pt. Alcohol Use Standard Drinks/Week Comments Not Currently 0 (1 standard drink = 0.6 oz pure alcohol) was a heavy drinker, now drinks <3beers per month [facility] Utilities Answer Date Recorded In the past 12 months has e electric, gas, oil, or water company [...] any time in the past 12 m [facility], were you homeless or living in a residential (including now)? No 07/30/2024 IPV Inpatient Questions [...] 1:30 PM EST Clinical [place] [address] 08/07/2024 3:30 PM EST Scheduled [place] [address] documented as of this encounter Procedures Procedure Name Priority Date/Time Associated Diagnosis Comments CBC (WITH DIFF) Routine 07/29/2024 11:20 AM EST COMPREHENSIVE METABOLIC PANEL Routine 07/29/2024 11:20 AM EST documented in this encounter Results * (ABNORMAL) Comprehensive metabolic panel (07/29/2024 11:20 AM EST) Glucose 137(H) 65 - 99 mg/dL 07/29/2024 12:10 PM [facility] Comment: Fasting Glucose Interpretive Criteria: Normal: 65-99 mg/dL ?? Prediabetes: 100-125 mg/dL ?? Consistent with Diabetes Mellitus: > or = 126 mg/dL ?? Classification and Diagnosis of Diabetes: Standards of Care in Diabetes - 2022. Diabetes Care 202; 46:S19. Fasting is defined as no caloric intake for at least 8 hours. Blood Urea Nitrogen 16 10 - 20 mg/dL 07/29/2024 12:10 PM [facility] Creatinine 0.88 0.80 - 1.50 mg/dL 07/29/2024 12:10 PM [facility] Sodium 134(L) 135 - 145 mMol/L 07/29/2024 12:10 PM [facility] Potassium 4.8 3.5 - 5.0 mMol/L 07/29/2024 12:10 PM [facility] Chloride 93(L) 98 - 107 mMol/L 07/29/2024 12:10 PM [facility] Carbon Dioxide 29 22 - 31 mMol/L 07/29/2024 12:10 PM [facility] Anion Gap 12 5 - 15 mMol/L 07/29/2024 12:10 PM [facility] Calcium 9.9 8.5 - 10.5 mg/dL 07/29/2024 12:10 PM [facility] Protein, Total 7.6 6.1 - 8.0 g/dL 07/29/2024 12:10 PM [facility] Albumin 3.7 3.2 - 5.2 g/dL 07/29/2024 12:10 PM [facility] Aspartate Aminotransferase 19 <=39 unit/L 07/29/2024 12:10 PM [facility] Alanine Aminotransferase 20 0 - 55 unit/L 07/29/2024 12:10 PM [facility] Alkaline Phosphatase 85 40 - 130 unit/L 07/29/2024 12:10 PM EST [facility] Bilirubin, Total 0.4 <=1.3 mg/dL 07/29/2024 12:10 PM EST [facility] Est Glomerular Filtration Rate - Male 94 mL/min/1. 73 m?? 07/29/2024 12:10 PM EST [facility] Comment: This patient's estimated GFR [...] Foundation Fasting Status Yes 07/29/2024 12:10 PM [facility] Blood VENOUS BLOOD SPECIMEN / Unknown Venipuncture / Unknown 07/29/2024 11:20 AM EST 07/29/2024 11:20 AM EST Joseph Frye MD CHEMISTRY ORDERABL ES [facility] [place] [address] * (ABNORMAL) CBC (with Diff) (07/29/2024 11:20 AM EST) White Blood Cell 14.60(H) 4.00 - 9.50 x10(3)/mc L 07/29/2024 11:46 AM EST [facility] Red Blood Cell 4.30(L) 4.58 - 5.54 x10(6)/mc L 07/29/2024 11:46 AM EST [facility] Hemoglobin 12.7(L) 13.7 - 16.5 g/dL 07/29/2024 11:46 AM EST [facility] Hematocrit 39.3(L) 40.5 - 48.5 % 07/29/2024 11:46 AM [facility] Mean Cell Volume 91.4 82.9 - 93.1 fL 07/29/2024 11:46 AM [facility] Mean Cell Hemoglobin 29.5 27.5 - 32.1 pg 07/29/2024 11:46 AM [facility] Mean Cell Hemoglobin Concentration 32.3 32.0 - 35.7 g/dL 07/29/2024 11:46 AM [facility] Platelet 419(H) 145 - 357 x10(3)/mc L 07/29/2024 11:46 AM [facility] Mean Platelet Volume 9.0 7.6 - 12.9 fL 07/29/2024 11:46 AM [facility] RDW Standard Deviation 51.8(H) 36.0 - 45.0 fL 07/29/2024 11:46 AM [facility] RDW coefficient of variation 15.6(H) 11.4 - 13.8 % 07/29/2024 11:46 AM [facility] NRBC% auto 0.0 % 07/29/2024 11:46 AM [facility] NRBC Absolute <0.01 <0.01 x10(3)/mc L 07/29/2024 11:46 AM [facility] Neutrophil % 83.0 % 07/29/2024 11:46 AM [facility] Neutrophil Absolute (ANC) - Automated 12.11(H) 1.70 - 6.10 x10(3)/mc L 07/29/2024 11:46 AM [facility] Lymph % 6.2 % 07/29/2024 11:46 AM [facility] Lymph Absolute 0.91 0.90 - 3.20 x10(3)/mc L 07/29/2024 11:46 AM [facility] Monocyte % 8.7 % 07/29/2024 11:46 AM [facility] Monocyte Absolute 1.27(H) 0.30 - 0.90 x10(3)/mc L 07/29/2024 11:46 AM EST [facility] Eos % 1.0 % 07/29/2024 11:46 AM EST [facility] Eos Absolute 0.15 0.00 - 0.40 x10(3)/mc L 07/29/2024 11:46 AM EST [facility] Basophil % 0.6 % 07/29/2024 11:46 AM EST [facility] Baso Absolute 0.09 0.00 - 0.10 x10(3)/mc L 07/29/2024 11:46 AM EST [facility] Immature Gran % 0.5 % 11:46 AM [facility] Immature Gran Absolute 0.07(H) 0.00 - 0.04 x10(3)/mc L 07/29/2024 11:46 AM EST [facility] Blood VENOUS BLOOD SPECIMEN / Unknown Venipuncture / Unknown 07/29/2024 11:20 AM EST 07/29/2024 11:20 AM EST Joseph Frye MD HEMATOLOGY ORDERAB LES [facility] [place] [address] documented in this encounter Visit Diagnoses Not on filedocumented in this encounter Care Teams Division Superintendent Relationship Specialty Start Date End Date Cintia Jones, INDUSTRIAL FABRIC [place] [address] PCP - General Family Medicine 05/09/24 documented as of this encounter
--- OUTSIDE RECORDS SUMMARY | 2024-08-06 12:09 | XMS_ITS | Encounter Summary ---
Author Organization [facility] Address [facility] [place] [address] Care Team Providers Care Computing Consultant Name Role Phone Cintia Jones DARIANA Primary Care Provider Encounter Details Date Type Department Care Team (Late st Contact Info) Description 04/17/2024 Telephone Urology at [facility] [place] [address] Bethany Jeffers MD [facility] [place] [address] Social History Tobacco Use Types Packs/Day Years [...] encounter Miscellaneous Notes * Telephone Encounter - Bethany Jeffers MD - 04/17/2024 3:11 PM EDT DIANA from [facility] ER calling for a consult for a patient with a bladder mass and Lt hydro on a CT scan. Pt is very frail, cachectic with COPD and the ER ordered a CTA looking for a PE or mesenteric thrombosis. Pt has been a heavy smoker for years and is on home O2 - Pt reports intermittent gross hematuria of late Dipstick shows gross blood. He is currently a full code, did have a DNR previously I reviewed his CTA of chest, abd, pelvis and there is Lt hydroureteronephrosis with delayed function on the LT There is a large left sessile bladder tumor involving most of the Lt side of the bladder and the area of the Lt u/o. I suggested that the patient have a KUB to see if there is still contrast in the Lt ureter The PA was questioning if he could be admitted for a work up. I explained that generally a tissue dx is obtained with a TURBT and then depending on the path a PET scan is done as an outpt. The CT is not reported on and I don't see obvious lung mets. There may be some Lt iliac nodes. Of note he had a PET scan Nov 09 for a pleural nodule and this was reported as:Subcentimeter ill-defined FDG avid opacity in the right [...] CT follow-up in 6 months is recommended. Imp: new bladder mass in a frail,cachectic man with O2 dependent COPD Plan: pt should have a discussion of goals of care with his PCP - he likely has bladder cancer and if it is muscle invasive he is a poor candidate for a cystectomy and he would be looking at palliative chemo and/or RT. Will set him up to see one of the Urologic oncologists. documented in this encounter Plan of Treatment Upcoming Encounters Date Type Department Care Team (Late st Contact Info) Description 08/07/2024 1:30 PM EST [place] [address] 08/07/2024 3:30 PM EST [place]uled [place] [address] documented as of this encounter Visit Diagnoses Not on filedocumented in this encounter Care Teams Computing Consultant Relationship Specialty Start Date End Date Cintia Jones, [place] [address] PCP - General Family Medicine 05/09/24 documented as of this encounter
--- OUTSIDE RECORDS SUMMARY | 2024-08-06 12:09 | XMS_ITS | Encounter Summary ---
Author Organization [facility] Address [facility] [place] [address] Care Team Providers Care Air Defense Artillery Officer Name Role Phone Cintia Jones APRN Primary Care Provider [phone] Reason for Visit * Consultation (Urgent) - Authorized Specialty Diagnoses / Procedures Referred By Christin connelly Referred To Contact Urology Diagnoses Dysuria Hematuria, unspecified type Hydronephrosis, unspecified hydronephrosis type Cintia Jones APRN [address] [place] [address] [facility] [place] [address] Referral ID Status Reason Start Date Expiration Date Visits Requested Visits Authorized [id number] Authorized Consult, Test & Treat PCP Updated and/or Approved 04/23/2024 04/23/2025 6 6 Encounter Details Date Type Department Care Team (Late st Contact Info) Description 06/02/2024 2:20 PM EDT Office [place] [id number] Louie Salazar MD [facility] [place] [address] Bladder mass Social History Tobacco Use Types Packs/Day Years Used Date Smoking Tobacco: Former Cigarettes Smokeless Tobacco: Never Tobacco Cessation:Counseling Given: Not Answered Comments:Quit 4 months ago per pt. Alcohol Use Standard Drinks/Week Comments No 0 [...] Sign Reading Time Taken Comments Blood Pressure 185/91 06/02/2024 2:00 PM EDT Pulse 98 06/02/2024 2:00 PM EDT Temperature - - Respiratory Rate - - Oxygen Saturation - - Inhaled Oxygen Concentration - - Weight - - Height - - Body Mass Index - - documented in this encounter Progress Notes * Louie Salazar MD - 06/02/2024 2:20 PM EDT UROLOGY NEW PATIENT VISIT CC: bladder mass HPI: 69 yo male referred to me by his PCP for an evaluation of a newly diagnosed bladder mass and left sided hydronephrosis. He was seen in the local ER several weeks ago for bladder pain and dysuria. He underwent a CT chest/abdomen and pelvis with the findings of a large bladder mass. He has had intemittent gross hematuria for 1-2months. He quit smoking 4 months ago but used to smoke >1ppd since the age of 13. Patient Active Problem List Diagnosis Date Noted Facial fracture due to fall 05/07/2020 Splenic laceration 06/14/2018 Pain in right shoulder 02/24/2016 COPD, [place] (2 stents) No past surgical history on file. Social History Socioeconomic History Marital status: Single Spouse name: None Number of children: None Years of education: None Highest education level: None Occupational History None Tobacco Use Smoking status: Former Current packs/day: 0.25 Types: Cigarettes Smokeless tobacco: Never Tobacco comments: Quit 4 months ago per pt. Substance and Sexual Activity Alcohol use: No Comment: was drinking a 6 pack to a case a day Drug use: No Sexual activity: None Other Topics Concern None Social History Narrative None Social Determinants of Health Financial Resource Strain: Not on file Food Insecurity: Not on file Transportation Needs: Not on file Physical Activity: Not on file Intimate Partner Violence: Not on file Housing Stability: Not on file Family History Family history unknown: Yes ROS: General Health: GENERAL: He has lost 40lbs. POT OPERATOR: Denies loss of consciousness, denies balance difficulty, denies pins/needle sensations. HEENT: Denies headaches and vision changes. RESP: Denies cough or breathing difficulties. CVS: Denies chest pain and MEDEIROS. No claudication. GI: Denies nausea/vomiting/diarrhea/constipation. Normal appetite and bowels. : see hpi MUSCULOSKELETAL: Denies joint or muscle aches. Denies back pain. SKIN: Denies rashes. HEME: Denies bleeding tendencies, bruisability. EXAMINATION: Patient Vitals for the past 24 hrs: Pulse BP 06/02/24 1400 98 (!) 185/91 GENERAL: alert, oriented, nad. Cachectic. HEENT: Atraumatic, normocephalic. Anicteric sclera. MMM. NECK: Supple with no significant lymphadenopathy. RESPIRATORY: Unlabored respirations with no audible wheezing. CARDIAC: Regular rhythm with no audible MGR. ABDOMEN: Benign without masses. No rebound or guarding. BACK: No CVA tenderness GENITALIA: Scrotum - Color and texture normal; no masses. Testicles and epididymides - No tenderness or masses. Penis - Circumcised with orthotopic meatus; no masses or surface lesions. NEUROLOGIC: Alert and oriented x 3. EXTREMITIES: Warm and well perfused with no pitting edema. IMAGING: CT chest/abdomen/pelvis from 04/17/24 independently reviewed by me showing a large left sided bladder mass and moderate left sided hydronephrosis. ASSESSMENT/PLAN: Large bladder mass, likely muscle invasive bladder cancer with associated left hydronephrosis. I explained to him the findings and the need for a cystoscopy and likely TURBT +/- stent placement vs. PCN placement. I recommended to proceed with an office cystoscopy today as scheduled (see separate note). documented in this encounter Plan of Treatment Upcoming Encounters Date Type Department Care Team (Late st Contact Info) Description 08/07/2024 1:30 PM EST Clinical [place] [address] 08/07/2024 3:30 PM EST Scheduled View [place] [address] documented as of this encounter Visit Diagnoses Diagnosis Bladder mass Other specified disorders of bladder documented in this encounter Care Teams Air Defense Artillery Officer Relationship Specialty Start Date End Date Cintia Jones, DOCUMENT REVIEWER [address] [place] [address] PCP - General Family Medicine 05/09/24 documented as of this encounter
--- OUTSIDE RECORDS SUMMARY | 2024-08-06 12:09 | XMS_ITS | Encounter Summary ---
Author Organization [facility] Address [facility] [place] [address] Care Team Providers Care Solar Sales Assessor Name Role Phone Cintia Jones DARIANA Primary Care Provider Encounter Details Date Type Department Care Team (Latest Contact Info) Description 07/29/2024 Travel Social History Tobacco Use Types Packs/Day Years Used Date Smoking Tobacco: Former Cigarettes Smokeless Tobacco: Never Comments:Quit 4 months ago p er pt. Alcohol Use Standard Drinks/Week Comments Not Currently 0 (1 standard drink = 0.6 oz pure alcohol) was a heavy drinker, now drinks <3beers per month [facility] Utilities Answer Date Recorded In the past 12 months has th e electric, gas, oil, or water [employer] threatened to shut off services in your [...] any time in the past 12 m onths, were you homeless or living in a care home (including now)? No 07/30/2024 IPV Inpatient Questions [...] 1:30 PM EST [place] [address] 08/07/2024 3:30 PM EST [place] [address] documented as of this encounter Visit Diagnoses Not on filedocumented in this encounter Care Teams Solar Sales Assessor Relationship Specialty Start Date End Date Cintia Jones, HOTEL AND DINING ROOM CASHIER [facility] [address] [place] [address] PCP - General Family Medicine 05/09/24 documented as of this encounter
--- OUTSIDE RECORDS SUMMARY | 2024-08-06 12:09 | XMS_ITS | Encounter Summary ---
Author Organization [facility] Address [facility] [place] [address] Care Team Providers Care Cargo Bracer Name Role Phone Cintia Jones DARIANA Primary Care Provider [phone] Reason for Referral * Diagnostic Test (Routine) - Closed Specialty Diagnoses / Procedures Referred By Contac t Referred To Contact Urology Diagnoses Bladder mass Procedures Cystourethroscopy Louie Salazar MD [facility] [place] [address] [place] [address] Referral ID Status Reason Start Date Expiration Date V isits Requested Visits Authorized [id number] Closed Test Only 06/02/2024 06/02/2025 1 1 Reason for Visit * Diagnostic Test (Routine) - Closed Specialty Diagnoses / Procedures Referred By Contac t Referred To Contact Urology Diagnoses Bladder mass Procedures Cystourethroscopy Louie Salazar MD [facility] [place] [address] [place] [address] Referral ID Status Reason Start Date Expiration Date V isits Requested Visits Authorized [id number] Closed Test Only 06/02/2024 06/02/2025 1 1 Encounter Details Date Type Department Care Team (Latest Contact Info) Description 06/02/2024 3:20 PM EDT Procedure [place] [address] Louie Salazar MD [facility] [place] [address] Bladder mass; Acute cystitis with hematuria Social History Tobacco Use Types Packs/Day Years Used Date Smoking Tobacco: Former Cigarettes Smokeless Tobacco: Never Comments:Quit 4 months ago p er pt. Alcohol Use Standard Drinks/Week Comments No 0 (1 standard drink = 0.6 oz pure alcohol) was drinking a 6 pack to a case a day Sex and Gender Information Value Date Recorded Sex Assigned at Not on file Gender Identity Not on file Sexual Orientation Not on file documented as of this encounter Patient Instructions * Patient Instructions* Josefina Nevarez RN - 06/02/2024 3:20 PM EDT Instructions following Cystoscopy Activity: As tolerated by your comfort level. Fluids: You should increase your water today. Avoid coffee, tea and cola. You do not need to [id number] ounces of water today. Urination: You will likely have a small amount of blood in your urine for the next several days. This is normal; however, if you are passing large amounts of blood clots or are unable to void please call our office at [phone] before 5PM or [phone] after hours. Please call if: * you have copious blood in your urine * fevers greater than 101.3 F * you are unable to void The number for questions is [phone] before 5 PM weekdays and [phone] after 5 PM and weekends. Follow-up: Per surgical schedulers documented in this encounter Procedure Notes * Louie Salazar MD - 06/02/2024 3:20 PM EDTAssociated Order(s): CYSTOURETHROSCOPY Procedure(s): CYSTOURETHROSCOPY Pre-Procedure Diagnose(s): Bladder mass Patient: Jimenez Marin Date of : 1955 SUBJECTIVE: This 69 y.o. years-old male presents for cystoscopy because of a gross hematuria and bladder mass seen on a CT scan. PROCEDURE - CYSTOSCOPY: Informed consent obtained from the patient and the patient was correctly identified. The patient was cystoscoped with a flexible scope following routine skin cleansing and drapping. 2%xylocaine gel was instillated into the urethra. The urethra was normal. The prostate appeared hypertrophic and bilobar. There was a large sessile appearing left and right sided bladder wall/neck mass(es) noted. There was a mass on the trigone and UO not visulized. The patient tolerated the procedure well. Patient was given ciprofloxacin IMPRESSION: bladder tumor suspicious for muscle invasive bladder cancer PLAN: 1) Schedule TURBT/RPG, possible stent vs PCN. documented in this encounter Plan of Treatment Upcoming Encounters Date Type Department Care Team (Late st Contact Info) Description 08/07/2024 1:30 PM EST Clinical [place] [address] 08/07/2024 3:30 PM EST Scheduled [place] [address] documented as of this encounter Procedures Procedure Name Priority Date/Time Associated Diagnosis Comments CYSTOURETHROSCOPY Routine 06/02/2024 3:2 0 PM EDT Bladder mass URINE CULTURE Routine 06/02/2024 3:07 PM EDT Bladder mass Acute cystitis with hematuria documented in this encounter Results * CYSTOURETHROSCOPY (06/02/2024 3:20 PM EDT) Narrative [...] MD URO PROCEDURE W RF L ORDERABLES * Urine culture (06/02/2024 3:07 PM EDT) Urine Culture 1,000-9,000 cfu/ml Insignificant growth 06/03/2024 12:11 PM EDT [facility] Urine URINE SPECIMEN OBTAINED BY CLEAN CATCH PROCEDURE / Unknown Non Blood Collection / Unknown 06/02/2024 3:07 PM EDT 06/02/2024 5:04 PM EDT Louie Salazar MD MICROBIOLOGY - GEN ERAL ORDERABLES Performing Organization Address City/State/[facility] Co de Phone Number [facility] [place] [address] documented in this encounter Visit Diagnoses Diagnosis Bladder mass Other specified disorders of bladder Acute cystitis with hematuria Acute cystitis documented in this encounter Care Teams Cargo Bracer Relationship Specialty Start Date End Date Cintia Jones, DAR[place] [address] [place] [address] PCP - General Family Medicine 05/09/24 documented as of this encounter
--- OUTSIDE RECORDS SUMMARY | 2024-08-06 12:09 | XMS_ITS | Encounter Summary ---
Author Organization [facility] Address [facility] [place] [address] Care Team Providers Care Dioramist Name Role Phone Ness Diaz APRN Primary Care Provider Encounter Details Date Type Department Care Team (Late st Contact Info) Description 04/17/2024 11:45 AM EDT Ancillary Procedure Radiology Library at [facility] [place] [address] Bethany Jeffers MD [facility] [place] [address] Social History Tobacco Use Types Packs/Day Years [...] 1:30 PM EST Clinical [place] [address] 08/07/2024 3:30 PM EST Scheduled [place] [address] documented as of this encounter Procedures Procedure Name Priority Date/Time Associated Diagnosis Comments FILM LIBRARY STORAGE ONLY CT CHEST ABDOMEN PELVIS Routine 04/17/2024 11:43 AM EDT documented in this encounter Results * Film Library- Storage Only CT Chest Abdomen Pelvis (04/17/2024 11:43 AM EDT) Narrative RAD - 04/17/2024 11:43 AM EDT This exam is auto-finalizing. It's purpose is for storage only. Bethany Jeffers MD IMG FILM LIBRAR Y ORDERABLES Performing Organization Address City/State/[facility] Co de Phone Number [place], [place] documented in this encounter Visit Diagnoses Not on filedocumented in this encounter Care Teams Dioramist Relationship Specialty Start Date End Date Ness Diaz, MANAGER INSTALLATION [address] [facility] [place] [address] PCP - General Family Medicine 05/07/20 05/08/24 documented as of this encounter
--- NOTE | 2024-08-06 12:10 | DI.RAD_ITS ---
Exam(s) XR PORTABLE CHEST AP EXAM: XR PORTABLE CHEST AP CLINICAL HISTORY: Shortness of breath. TECHNIQUE: 2D digital imaging was performed. COMPARISON: CR XR CHEST 2V PA LATERAL from 06/05/2022 FINDINGS: Single AP portable view. Heart size is upper normal. The mediastinum is not widened. Bilateral hyperinflation again noted. There are left-sided rib fractures which were not evident on 2021 study but which not appear acute. There also a few healed right-sided rib fractures evident. No obvious acute fractures seen. No infiltrates nor pleural effusions. No pneumothorax. IMPRESSION: No acute pulmonary findings on this single AP portable view of the chest. Bilateral healed rib fractures and partially healed rib fractures noted. DATA REPOSITORY: RADIATION DOSE DELIVERED:
--- OUTSIDE RECORDS SUMMARY | 2024-08-06 12:10 | XMS_ITS | Encounter Summary ---
Author Organization [facility] [place] [address] Care Team Providers Care Corporate Treasurer Name Role Phone None Primary Care Provider Unavailabl e Reason for Referral * Diagnostic Test (Routine) - Closed Specialty Diagnoses / Procedures Referred By Contac t Referred To Contact Radiology Diagnoses Acute pain of right shoulder Procedures MRI Shoulder Right WO Contrast (GENERIC) Edgar Escobar MD [facility] [place] [address] [facility] [place] [address] Referral ID Status Reason Start Date Expiration Date V isits Requested Visits Authorized [id number] Closed Specialty Service Requested 03/16/2016 06/14/2016 1 1 Reason for Visit * Reason Comments Right Shoulder Pain * Consultation (Routine) - Closed Specialty Diagnoses / Procedures Referred By Christin t Referred To Contact Orthopaedics Diagnoses Chronic right shoulder pain Chronic right shoulder pain Alpesh Orona MD [facility] [place] [address] [facility] [address] [place] [phone] Referral ID Status Reason Start Date Expiration Date V isits Requested Visits Authorized [id number] Closed Consult, Test & Treat 02/24/2016 02/23/2017 1 1 Encounter Details Date Type Department Care Team (Late st Contact Info) Description 03/03/2016 1:00 PM EDT Office [place] [address] Braydon Carrillo MD [facility] [place] [address] Acute pain of right shoulder Social History [...] has strength 5/5 to AI and IO business development executive. Wrist extension, wrist flexion, elbow extension, elbow [...] 1:30 PM EST [place] [address] 08/07/2024 3:30 PM EST [place]uled [place] [address] documented as of this encounter Results * [...] shoulder documented in this encounter Care Teams Corporate Treasurer Relationship Specialty Start Date End Date None None PCP - General 08/09/10 07/22/18 documented as of this encounter
--- OUTSIDE RECORDS SUMMARY | 2024-08-06 12:10 | XMS_ITS | Encounter Summary ---
Author Organization [facility] Address [facility] [address] [address] Care Team Providers Care Java Security Engineer Name Role Phone None Primary Care Provider Unavailabl e Encounter Details Date Type Department Care Team (Latest Contact Info) Description 06/14/2018 - 06/14/2018 12:04 AM EDT Hospital Encounter Radiology Library at [facility] [place] [address] Jose A Sargent MD [facility] [place] [address] Discharge Disposition: Home Social History Tobacco Use [...] tablet by mouth Daily @ 0600. 01/23/2014 multivitamin Zsif-Ip-CD-Min (THERAPEUTIC-M) 27-0.4 mg Tablet Take 1 tablet [...] 1:30 PM EST Clinical [place] [address] 08/07/2024 3:30 PM EST [place]uled [place] [address] documented as of this encounter Procedures Procedure Name Priority Date/Time Associated Diagnosis Comments FILM LIBRARY STORAGE ONLY DX CHEST Routine 06/14/2018 12:00 AM EDT documented in this encounter Results * Film Library- Storage Only DX Chest (06/14/2018 12:00 AM EDT) Narrative [facility] - 06/14/2018 4:10 PM EDT This exam is for storage only and is auto-finalizing. Jose A Sargent MD IMG FILM LIBRARY ORD ERABLES [place], [place] documented in this encounter Visit Diagnoses Not on filedocumented in this encounter Care Teams Java Security Engineer Relationship Specialty Start Date End Date None None PCP - General 08/09/10 07/22/18 documented as of this encounter
--- OUTSIDE RECORDS SUMMARY | 2024-08-06 12:10 | XMS_ITS | Encounter Summary ---
Author Organization [facility] Address [facility] [place] [address] Care Team Providers Care Beverage Distiller Name Role Phone None Primary Care Provider Unavailabl e Reason for Visit * Diagnostic Test (Routine) - Closed Specialty Diagnoses / Procedures Referred By Contac t Referred To Contact Radiology Diagnoses Laceration of spleen, initial encounter Procedures CT Abdomen & Pelvis wwo Contrast (Generic) CT Abdomen & Pelvis w Contrast Brent Souza MD [facility] [place] [address] [facility] [place] [address] Referral ID Status Reason Start Date Expiration Date V isits Requested Visits Authorized [id number] Closed Specialty Service Requested 06/21/2018 09/19/2018 1 1 Encounter Details Date Type Department Care Team (Latest Contact Info) Description 07/05/2018 8:59 AM EDT - 07/05/2018 11:59 PM EDT Hospital [place] [address] Db Oviedo MD [facility] [place] [address] Laceration of spleen, initial encounter Discharge Disposition: [...] tablet by mouth Daily @ 0600. 01/23/2014 lisinopril (PRINIVIL;ZESTRIL) 10 mg Tablet Take 10 mg by mouth daily. aspirin 81 mg Tablet, Delayed Release (E.C.) Take 81 mg by mouth daily. omeprazole (PRILOSEC) 20 mg Capsule, Delayed Release(E.C.) Take 20 mg by mouth daily. traZODone (DESYREL) 100 mg Tablet Take 100 mg by mouth nightly. multivitamin Vubd-Zm-FE-Min (THERAPEUTIC-M) 27-0.4 mg Tablet Take 1 tablet [...] 1:30 PM EST [place] [address] 08/07/2024 3:30 PM EST [place]uled [place] [address] documented as of this encounter Procedures Procedure [...] mLs documented in this encounter Care Teams Beverage Distiller Relationship Specialty Start Date End Date None None PCP - General 08/09/10 07/22/18 documented as of this encounter
--- OUTSIDE RECORDS SUMMARY | 2024-08-06 12:10 | XMS_ITS | Encounter Summary ---
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 Name Role Phone None Primary Care Provider Unavailabl e Reason for Visit * Reason Comments Hospital Transfer Ruptured Spleen * Auth/Cert Specialty Diagnoses / Procedures Referred By Contabida t Referred To Contact Diagnoses Splenic laceration Procedures EMERGENCY IPI Referral ID Status Reason Start Date Expiration Date Visits Re quested Visits Authorized [id number] 1 1 Encounter Details Date Type Department Care Team (Latest Contact Info) Description 06/14/2018 5:53 PM EDT - 06/18/2018 3:19 PM EDT Hospital Encounter [address] [place] [address] Shahid Silver MD [facility] [address] [place] [address] Joshua Jasmine MD [address] [place] [address]-[place] [address] Laceration of spleen, initial encounter; Chest pain, [...] a daily ASA 81mg. He went to [facility] for evaluation where laboratory studies were remarkable for leukocytosis to 12 and a hemoglobin of 14. Coag studies were within normal limits. CT chest/abdomen/pelvis was remarkable for a splenic laceration and possible liver laceration. He was transferred to [facility] for further care. On arrival he washemodynamically [...] with a angioembolization which will be performed [facility] Course: 06/15/2018: No acute events overnight. Afebrile, [...] CT Pertinent Lab Data: Recent Labs 06/18/18 0605 06/17/18 0128 06/16/18 [...] mouth daily. 10 mg Refills: 0 multivitamin Zgiv-Ez-KH-Min 27-0.4 mg Tab Commonly known as: THERAPEUTIC-M [...] mouth every 30 days. Generic drug: ergocalciferol 63358 Units Refills: 0 Disposition: Home Scheduled Appointments: The following appointments have been scheduled on your behalf: Future Appointments Date Time Provider Department Center 07/23/2018 1:00 PM Alisson Munoz APRN [facility] Outpatient Services/Studies: CT Abdomen & Pelvis w Contrast Standing Status: Future Standing Exp. Date: 01/15/19 Question Response Notes Where will study be performed? [facility] [120] Reason for exam and clinical [...] reach the office please call them at [phone]. Narcotics: You may be given a prescription [...] 1. You will have follow-up appointments at [facility] as indicated in the ???Future Appointments and [...] on the next business day. Please call [phone] if you do not hear from us by that time, as your timely follow-up is very important to us. Your care was managed by the Trauma and Acute Care Surgery Team at [facility]. If you have any questions or concerns, please feel free to contact us. Provider Contact Information: General Surgery: [facility] (after business hours): CC: Tammy Farley Primary Care Physician: None No future appointments. General Instructions None Your care was managed by the Trauma and Acute Care Surgery Team at [facility]. If you have any questions or concerns, please feel free to contact us. Provider Contact Information: General Surgery Clinic: Nurses line for questions: [facility] (after business hours): CC: Spontaneous splenic artery laceration diagnosis for which pt was admitted Alfonso Munoz, DARIANA Signed: Brent Souza MD Department of Surgery 06/18/2018 Acute Care Surgery Pager [phone] documented in this encounter Discharge Instructions * [...] reach the office please call them at [phone]. Narcotics: You may be given a prescription [...] 1. You will have follow-up appointments at [facility] as indicated in the ???Future Appointments and [...] on the next business day. Please call [phone] if you do not hear from us by that time, as your timely follow-up is very important to us. Your care was managed by the Trauma and Acute Care Surgery Team at [facility]. If you have any questions or concerns, please feel free to contact us. Provider Contact Information: General Surgery: [facility] (after business hours): CC: Tammy Farley Primary [...] Take 100 mg by mouth nightly. multivitamin Qblq-Gk-GQ-Min (THERAPEUTIC-M) 27-0.4 mg Tablet Take 1 tablet [...] necessary supplies. Pt d/c'd back to the [facility] assisted living [facility] at [address] wheelchair pushed by 2 [place] staff. * Mariaa Tirado MSW - 06/18/2018 1:41 PM EDT Discharge Planning: O: Requested by team to assist with discharge transportation. RCT [phone] will pick patient upat the [place] [facility] at 3pm. 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 No further social work interventions at [...] (IR) Brent Souza MD 06/18/18 Team Pager [phone] * bD Paz MD - 06/17/2018 1:31 PM EDT Trauma Service - Progress Note Patient Name: Jimenez Barkley : [id number] MR#: [id number] 06/14/2018 Hospital Day 3 days Problem List: [...] (IR) Brent Souza MD 06/17/18 Team Pager [phone] * JuliaEdgar - 06/16/2018 2:16 PM EDT Or Manager Encounter Note Patient Name: Jimenez Barkley : [id number] MR#: [id number] Admit Date: 06/14/2018 5:53 PM Hospital Day 2 days Narrative: Visited to introduce and assess acceptance of Or Manager services. Pt was awake, alert, oriented and in bed and welcoming to visit. Assessment: Patient coping positively with stresses of illness/hospitalization at this time. Pt says that he is hoping to get better and taking one day at time. Pt shared that his family is living inother states. Intervention and Outcome: Provided emotional, spiritual support and encouraging presence. Or Manager services accepted.Conversation to build trusting relationship.Provided prayer.Provided [...] Non tender, non distended Vasc ACCESS R SCIENTIST dressing C/D/I , no hematoma, 2+ pulses ~ R SCIENTIST/ R DPA Intake/Output Summary (Last 24 hours) [...] Elevated BP, administered Hydralazine. Other VSS. Pain 10/. C/O nausea with dry heaving. Will check [...] [90 %-100 %] 06/14 0701 - 06/15 0700 In: 633 [I.V.:633] Out: 575 [Urine:575] Physical [...] of : 1955 AGE 63 y.o. Address: [address] [place] [address] (home) Mobile: No relevant phone numbers on [...] needed for Pain. Yes PROVIDER, HISTORICAL multivitamin Yato-Qh-LF-Min (THERAPEUTIC-M) 27-0.4 mg Tablet Take 1 tablet [...] for Pain. PROVIDER, HISTORICAL * Demetrius López - 06/14/2018 8:58 PM EDT Images from [...] Encounter Medication Sig Dispense Refill ??? multivitamin Kwcb-Rg-GE-Min (THERAPEUTIC-M) 27-0.4 mg Tablet Take 1 tablet [...] Jasmine MD - 06/14/2018 6:24 PM EDT [facility] Department of Surgery Admission History and Physical [...] a daily ASA 81mg. He went to [facility] for evaluation where laboratory studies were remarkable for leukocytosis to 12 and a hemoglobinof 14. Coag studies were within normal limits. CT chest/abdomen/pelvis was remarkable for a spleniclaceration and possible liver laceration. He was transferred to [facility] for further care. On arrival he was hemodynamically normal and complaining of LUQ pain. PMH: COPD HTN HLD CAD PSH: Tonsillectomy HOME MEDICATIONS: No current facility-administered medications on file prior to encounter. Current Outpatient Prescriptions on File Prior to Encounter Medication Sig Dispense Refill ??? multivitamin Rogv-Pr-ZG-Min (THERAPEUTIC-M) 27-0.4 mg Tablet Take 1 tablet [...] -Dispo: ISCU status Juli Mejia MD Pager [phone] 06/14/2018 8:55 PM SURGICAL ATTENDING NOTE: Pt [...] and the C2 exchanged for an angled imaging system administrator 2 catheter. A6 mm Amplatzer plug was [...] to ISCU. ISCU aware. * Kenn Loving T - 06/14/2018 6:30 PM EDT Chief Complaint Patient presents with ??? Hospital Transfer Ruptured Spleen HPI 63 M with a PMH of tobacco use, HTN, history of MA, COPD with no reported PSH per patient [...] lesion PSYCH: appropriate behavior and speech Procedures [facility] and ED Course: Patient is transfer from [...] d/c tomorrow 06/18/18 INDIVIDUALIZED FALL PREVENTION INTERVENTIONS: [place] Risk ? Patient-specific fall risk factors per [...] Outcome: Ongoing (Interventions Implemented as Appropriate) 06/15/18 010 Living Environment Transportation Available agency transportation;ambulance Goal: [...] Admission as Stated by Patient: chest pain Jimneez Barkley is63 yo male??with PMH CAD, HTN, HLD, COPD who presented with splenic laceration (grade IV) now s/p IR embolization No past medical history on file. Hospitalizations Within the Past 30 Days: yes pt was transferred from [facility] on 06/13/18 Anticipated Length Of Stay (If known): Expected Length of Hospitalization: 3 Current Decision-Making Capacity: has capacity to make his own decisions. Advance Care Planning: none. Pt was not interested. Did review [place] surrogacy law with pt. Pt states the only family he has in his life is his elderly mother who lives in [place], [place]. Current Coping/Education/Information Needs: Pt anxious to be discharged out of the hospital. Current Functional Ability: Independent with mobility. Does not require assistance with ADL's. Functional Status Prior to Admission: Independent with mobility and ADL's. Home Environment: Pt lives at the [facility] in [place], [place] it is an assisted living facility. His apartment is on the first floor. Social & Family Supports/Community Resources: Pt states he only has his mother that he can count on Behavioral Health History: Pt being treated for mood disorder and is being followed by PCP at the [facility]. Substance Use/Abuse: smokes tobacco, drinks a few beers a week. Pt reports using cannabis for pain relief. Other Pertinent/Service Specific Information: Pt will need a Medicaid ride home. Pt has [place] medicaid. Health/Prescription Coverage: Primary Insurance: MEDICAID [place] Secondary Insurance: N/A Prescription Coverage: Medicaid [place] primary care plus Preferred Pharmacy: the [facility] Other: Primary Care Provider: none Patient/Caregiver Goals of Treatment: To return home Potential Needs for Transition of Care: Rehab/SNF: not indicated Home Health: not indicated DME: not indicated Dialysis: not indicated Community Resources: Transportation: [place] medicaid Other: Anticipated Barriers to Discharge/Special Considerations: none Assessment: Pt pleasant and cooperative during the interview. Pt is anxious to get home. Possible discharge 06/18/18 or 06/19. Plan: A member of the Care Management team will continue to monitor progress, follow for continuityof care and assist with transition of care planning. Andreia Arrington RN Pager: [phone] * Plan of Care - Latha Alatorre RN - 06/17/2018 5:36 AM EDT Problem: Patient Care Overview Goal: Plan of Care Review Outcome: Ongoing (Interventions Implemented as Appropriate) 06/15/18 0409 06/16/18 6890 Coping/Psychosocial Plan Of Care Reviewed With -- patient Plan of Care Review Progress improving -- OUTCOME EVALUATION NOTE: OUTCOME SUMMARY: Pt c/o of 8-10 pain throughout shift, managed with PRN oxycodone. [...] PO intake ? INDIVIDUALIZED FALL PREVENTION INTERVENTIONS: [place] Risk ? Patient-specific fall risk factors per [...] encouraged * Plan of Care - Aspen Lloyd RN - 06/15/2018 2:11 PM EDT Problem: [...] were not included. Infiltration/Extravasation Scale Jimenez Barkley [id number] IS81/IS81-A Infiltration appearance: Left forearm, Infiltrate of [...] infiltration/extravasation Name of MD contacted paged at [phone]. 8:26 AM Team arrived at 0844 to see patient and recd page. Aware of Infiltrate and plan of care. Name of RN contacted NING French on unit and aware of infiltrate, removal and plan of care. 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 WILL CONTINUE TO [...] 1:30 PM EST [place] [address] 08/07/2024 3:30 PM EST [place] [id number] documented as of this encounter Procedures Procedure Name Priority Date/Time Associated Diagnosis Comments HEMOGRAM Routine 06/18/2018 6:05 AM EDT BASIC METABOLIC PANEL Routine 06/18/2018 6:05 AM EDT HEMOGRAM Routine 06/17/2018 1:28 AM EDT DIFFERENTIAL, AUTOMATED Routine 06/17/2018 1:28 AM EDT CBC (WITH DIFF) Routine 06/17/2018 1:28 AM EDT BASIC METABOLIC PANEL Routine 06/17/2018 1:28 AM EDT SCAN, PERIPHERAL BLOOD Routine 06/16/2018 1:10 AM EDT HEMOGRAM Routine 06/16/2018 1:10 AM EDT DIFFERENTIAL, AUTOMATED Routine 06/16/2018 1:10 AM EDT CARDIAC ENZYMES ([facility]) STAT 06/16/2018 1:10 AM EDT CBC (WITH DIFF) Routine 06/16/2018 1:10 AM EDT CARDIAC ENZYMES ([facility]) STAT 06/15/2018 5:00 PM EDT CARDIAC ENZYMES ([facility]) STAT 06/15/2018 10:59 AM EDT EKG 12-LEAD STAT 06/15/2018 10:36 AM EDT Chest pain, unspecified type BASIC METABOLIC PANEL STAT 06/15/2018 7:21 AM EDT HEMOGRAM STAT 06/15/2018 1:56 AM EDT POCT GLUCOSE Routine 06/15/2018 12:26 AM EDT ACADEMIC COORDINATOR SCAN 06/15/2018 12:00 AM EDT IR ARTERIAL [...] 06/14/2018 6:45 PM EDT TYPE AND SCREEN ([facility]/CGP/JOSUE) STAT 06/14/2018 6:45 PM EDT BASIC METABOLIC PANEL STAT 06/14/2018 6:45 PM EDT EKG 12-LEAD STAT 06/14/2018 6:41 PM EDT documented in this encounter Results * (ABNORMAL) Hemogram (06/18/2018 6:05 AM EDT) [facility] White Blood Cell 13.9(H) 4.0 - 9.5 x10(3)/mc [facility] Red Blood Cell 2.77(L) 4.58 - 5.54 x10(6)/mc L [facility] Hemoglobin 8.6(L) 13.7 - 16.5 gm/dL [facility] Hematocrit 25.6(L) 40.5 - 48.5 % [facility] Mean Cell Volume 92.4 82.9 - 93.1 fL [facility] Mean Cell Hemoglobin 31.0 27.5 - 32.1 pg [facility] Mean Cell Hemoglobin Concentration 33.6 32.0 - 35.7 gm/dL [facility] Platelet 215 145 - 357 x10(3)/mc L [facility] RDW Standard Deviation 46.0(H) 36.0 - 45.0 fL [facility] RDW coefficient of variation 13.5 11.4 - 13.8 % [facility] Mean Platelet Volume 9.6 7.6 - 12.9 fL [facility] NRBC% auto 0.1 % [facility] NRBC Absolute 0.020(H) 0.000 - 0.000 x10(3)/mc L [facility] Blood specimen (specimen) 06/18/2018 6:05 AM EDT 06/18/2018 6:15 AM EDT Narrative Resulting Agency Comment Spec In Lab Joshua Jasmine MD HEMATOLOGY ORDERABLE S [facility] [place] [address] * (ABNORMAL) Basic Metabolic Panel (non-fasting) (06/18/2018 6:05 AM EDT) Glucose 125 65 - 199 mg/dL [facility] Comment:Diabetes: >=200 mg/d L plus symptoms Blood Urea Nitrogen 10 10 - 20 mg/dL [facility] Creatinine 0.76(L) 0.80 - 1.50 mg/dL [facility] Sodium 136 135 - 145 mmol/L [facility] Potassium 3.6 3.5 - 5.0 mmol/L [facility] Comment: Please note: ??Patients with WBC >100,000 may have falsely elevated Potassium levels. ??For accurate Potassium quantification in these patients send serum separator tube (gold top) for subsequent determinations. ??Contact the Clinical Chemistry Laboratory if there are any questions. Chloride 96(L) 98 - 107 mmol/L [facility] Carbon Dioxide 28 22 - 31 mmol/L [facility] Anion Gap 12 5 - 15 mmol/L [facility] Calcium 9.0 8.5 - 10.5 mg/dL [facility] Est Glomerular Filtration Rate 98 >=60 mL/min/1. 73 m?? [facility] Comment: The eGFR was calculated using the CKD-EPI equation. As with all creatinine based estimates of kidney function, eGFR values calculated with the CKD-EPI equation are not accurate in patients with acute kidney failure, extremes of body mass or the acutely ill. [email or web address]kf eGFR 113 >=60 mL/min/1. 73 m?? [facility] Comment: The eGFR was calculated using the CKD-EPI equation. As with all creatinine based estimates of kidney function, eGFR values calculated with the CKD-EPI equation are not accurate in patients with acute kidney failure, extremes of body mass or the acutely ill. [email or web address] Blood specimen (specimen) 06/18/2018 6:05 AM EDT 06/18/2018 6:15 AM EDT Narrative Resulting Agency Comment Spec In Lab Joshua Jasmine MD CHEMISTRY ORDERABLES [facility] [place] [address] * (ABNORMAL) Differential, Automated (06/17/2018 1:28 AM EDT) Neutrophil % 74.2 % [facility] Neutrophil Absolute 13.79(H) 1.70 - 6.10 x10(3)/mc L [facility] Lymph % 11.0 % [facility] Lymphocytes Abs 2.0 0.9 - 3.2 x10(3)/[facility] Monocyte % 11.9 % [facility] Monocyte Abs 2.2(H) 0.3 - 0.9 x10(3)/[facility] Eos % 2.0 % [facility] Eosinophils Abs 0.4 0.0 - 0.4 x10(3)/[facility] Basophil % 0.3 % [facility] Baso Absolute 0.1 0.0 - 0.1 x10(3)/[facility] Immature Gran % 0.60 % [facility] Comment: Immature granulocytes(IG's)percentage and absolute count will include metamyelocytes, myelocytes, and promyelocytes. Blood smears from CBCs yielding IG's will be scanned manually for concordance. If this scan disagrees with the automated IG or if promyelocytes are noted, a manual differential will be performed. Immature Gran Absolute 0.11(H) 0.00 - 0.04 x10(3)/[facility] Blood specimen (specimen) 06/17/2018 1:28 AM EDT 06/17/2018 1:35 AM EDT Narrative Resulting Agency Comment Spec In Lab Danny Hawk MD HEMATOLOGY O RDERABLES [facility] [place] [address] * (ABNORMAL) Hemogram (06/17/2018 1:28 AM EDT) White Blood Cell 18.6(H) 4.0 - 9.5 x10(3)/[facility] Red Blood Cell 3.32(L) 4.58 - 5.54 x10(6)/[facility] Hemoglobin 10.4(L) 13.7 - 16.5 gm/dL [facility] Hematocrit 30.9(L) 40.5 - 48.5 % [facility] Mean Cell Volume 93.1 82.9 - 93.1 fL [facility] Mean Cell Hemoglobin 31.3 27.5 - 32.1 pg [facility] Mean Cell Hemoglobin Concentration 33.7 32.0 - 35.7 gm/dL [facility] Platelet 190 145 - 357 x10(3)/mc L [facility] RDW Standard Deviation 45.8(H) 36.0 - 45.0 fL [facility] RDW coefficient of variation 13.4 11.4 - 13.8 % [facility] Mean Platelet Volume 9.7 7.6 - 12.9 [facility] NRBC% auto 0.0 % [facility] NRBC Absolute 0.000 0.000 - 0.000 x10(3)/mc L [facility] Blood specimen (specimen) 06/17/2018 1:28 AM EDT 06/17/2018 1:35 AM EDT Narrative Resulting Agency Comment Spec In Lab Danny Hawk MD HEMATOLOGY O RDERABLES [facility] [place] [address] * (ABNORMAL) Basic Metabolic Panel (non-fasting) (06/17/2018 1:28 AM EDT) Glucose 137 65 - 199 mg/dL [facility] Comment:Diabetes: >=200 mg/d L plus symptoms Blood Urea Nitrogen 11 10 - 20 mg/dL [facility] Creatinine 0.78(L) 0.80 - 1.50 mg/dL [facility] Sodium 134(L) 135 - 145 mmol/L [facility] Potassium 3.7 3.5 - 5.0 mmol/L [facility] Comment: Please note: ??Patients with WBC >100,000 may have falsely elevated Potassium levels. ??For accurate Potassium quantification in these patients send serum separator tube (gold top) for subsequent determinations. ??Contact the Clinical Chemistry Laboratory if there are any questions. Chloride 94(L) 98 - 107 mmol/L [facility] Carbon Dioxide 25 22 - 31 mmol/L [facility] Anion Gap 15 5 - 15 mmol/L [facility] Calcium 9.4 8.5 - 10.5 mg/dL [facility] Est Glomerular Filtration Rate 97 >=60 mL/min/1. 73 m?? [facility] Comment: The eGFR was calculated using the CKD-EPI equation. As with all creatinine based estimates of kidney function, eGFR values calculated with the CKD-EPI equation are not accurate in patients with acute kidney failure, extremes of body mass or the acutely ill. [email or web address]/[facility]kf eGFR 112 >=60 mL/min/1. 73 m?? [facility] Comment: The eGFR was calculated using the CKD-EPI equation. As with all creatinine based estimates of kidney function, eGFR values calculated with the CKD-EPI equation are not accurate in patients with acute kidney failure, extremes of body mass or the acutely ill. [email or web address]/DHnkf Blood specimen (specimen) 06/17/2018 1:28 AM EDT 06/17/2018 1:34 AM EDT Narrative Resulting Agency Comment Spec In Lab Joshua Jasmine MD CHEMISTRY ORDERABLES [facility] [place] [address] * Scan, Peripheral Blood (06/16/2018 1:10 AM EDT) Plat estimate Normal [facility] RBC Morphology Normal [facility] Blood specimen (specimen) 06/16/2018 1:10 AM EDT 06/16/2018 1:17 AM EDT Narrative Resulting Agency Comment Spec In Lab Danny Hawk MD HEMATOLOGY O RDERABLES Performing Organization Address City/[facility]/ZIP Co de Phone Number [facility] [place] [address] * (ABNORMAL) Differential, Automated (06/16/2018 1:10 AM EDT) Neutrophil % 80.2 % [facility] Neutrophil Absolute 14.73(H) 1.70 - 6.10 x10(3)/ L [facility] Lymph % 7.7 % [facility] Lymphocytes Abs 1.4 0.9 - 3.2 x10(3)/[facility] Monocyte % 10.1 % [facility] Monocyte Abs 1.8(H) 0.3 - 0.9 x10(3)/[facility] Eos % 1.3 % [facility] Eosinophils Abs 0.2 0.0 - 0.4 x10(3)/[facility] Basophil % 0.2 % [facility] Baso Absolute 0.0 0.0 - 0.1 x10(3)/[facility] Immature Gran % 0.50 % [facility] Comment: Immature granulocytes(IG's)percentage and absolute count will include metamyelocytes, myelocytes, and promyelocytes. Blood smears from CBCs yielding IG's will be scanned manually for concordance. If this scan disagrees with the automated IG or if promyelocytes are noted, a manual differential will be performed. Immature Gran Absolute 0.10(H) 0.00 - 0.04 x10(3)/ L [facility] Blood specimen (specimen) 06/16/2018 1:10 AM EDT 06/16/2018 1:17 AM EDT Narrative Resulting Agency Comment Spec In Lab Danny Hawk MD HEMATOLOGY O RDERABLES Performing Organization Address City/[facility]/ZIP Co de Phone Number [facility] [place] [address] * (ABNORMAL) Hemogram (06/16/2018 1:10 AM EDT) White Blood Cell 18.4(H) 4.0 - 9.5 x10(3)/mc L [facility] Red Blood Cell 3.22(L) 4.58 - 5.54 x10(6)/ L [facility] Hemoglobin 10.0(L) 13.7 - 16.5 gm/dL [facility] Hematocrit 29.7(L) 40.5 - 48.5 % [facility] Mean Cell Volume 92.2 82.9 - 93.1 fL [facility] Mean Cell Hemoglobin 31.1 27.5 - 32.1 pg [facility] Mean Cell Hemoglobin Concentration 33.7 32.0 - 35.7 gm/dL [facility] Platelet 198 145 - 357 x10(3)/ L [facility] RDW Standard Deviation 46.3(H) 36.0 - 45.0 fL [facility] RDW coefficient of variation 13.6 11.4 - 13.8 % [facility] Mean Platelet Volume 9.9 7.6 - 12.9 fL [facility] NRBC% auto 0.0 % [facility] NRBC Absolute 0.000 0.000 - 0.000 x10(3)/ L [facility] Blood specimen (specimen) 06/16/2018 1:10 AM EDT 06/16/2018 1:17 AM EDT Narrative Resulting Agency Comment Spec In Lab Danny Hawk MD HEMATOLOGY O RDERABLES [facility] [place] [address] * Cardiac Enzymes (LEB/CGP) (06/16/2018 1:10 AM EDT) [facility] Troponin-T <0.01 0.00 - 0.00 ng/mL [facility] Comment: The 99th percentile for Troponin T is less than 0.01 ng/mL, any detectable cTnT concentration using this assay should be considered elevated. According to the third universal definition of myocardial infarction the following criteria with a clinical presentation consistent with acute myocardial ischemia meets the diagnosis for a myocardial infarction (MA). Detection of a rise and/or fall of cTnT, with at least one value greater than the 99th percentile (> or = 0.01) and with at least one of the following ?? Symptoms of ischemia ?? New or presumed new significant XU-[id number]-M wave (ST-T) changes or new left bundle [...] additional sample may be indicated. Reference: Third [place] Definition of Myocardial Infarction. Journal of the [employer] 2012;60:1581-98 Creatine Kinase 50 0 - 200 unit/L [facility] Blood specimen (specimen) 06/16/2018 1:10 AM EDT 06/16/2018 1:17 AM EDT Narrative Resulting Agency Comment Spec In Lab Joshua Jasmine MD CHEMISTRY ORDERABLES [facility] [place] [address] * Cardiac Enzymes (LEB/CGP) (06/15/2018 5:00 PM EDT) [facility] Troponin-T <0.01 0.00 - 0.00 ng/mL [facility] Comment: The 99th percentile for Troponin T is less than 0.01 ng/mL, any detectable cTnT concentration using this assay should be considered elevated. According to the third universal definition of myocardial infarction the following criteria with a clinical presentation consistent with acute myocardial ischemia meets the diagnosis for a myocardial infarction (MA). Detection of a rise and/or fall of cTnT, with at least one value greater than the 99th percentile (> or = 0.01) and with at least one of the following ?? Symptoms of ischemia ?? New or presumed new significant PW-[id number]-[id number] wave (ST-T) changes or new left bundle [...] additional sample may be indicated. Reference: Third [place] Definition of Myocardial Infarction. Journal of the [employer] 2012;60:1581-98 Creatine Kinase 51 0 - 200 unit/L [facility] Blood specimen (specimen) 06/15/2018 5:00 PM EDT 06/15/2018 5:05 PM EDT Narrative Resulting Agency Comment Spec In Lab Joshua Jasmine MD CHEMISTRY ORDERABLES [facility] [place] [address] * Cardiac Enzymes (LEB/CGP) (06/15/2018 10:59 AM EDT) Troponin-T <0.01 0.00 - 0.00 ng/mL [facility] Comment: The 99th percentile for Troponin T is less than 0.01 ng/mL, any detectable cTnT concentration using this assay should be considered elevated. According to the third universal definition of myocardial infarction the following criteria with a clinical presentation consistent with acute myocardial ischemia meets the diagnosis for a myocardial infarction (MA). Detection of a rise and/or fall of cTnT, with at least one value greater than the 99th percentile (> or = 0.01) and with at least one of the following ?? Symptoms of ischemia ?? New or presumed new significant [place]-[id number]-[id number] wave (ST-T) changes or new left bundle [...] additional sample may be indicated. Reference: Third [place] Definition of Myocardial Infarction. Journal of the [employer] 2012;60:1581-98 Creatine Kinase 69 0 - 200 unit/L [facility] Blood specimen (specimen) 06/15/2018 10:59 AM EDT 06/15/2018 11:05 AM EDT Narrative Resulting Agency Comment Spec In Lab Joshua Jasmine MD CHEMISTRY ORDERABLES Performing Organization Address [facility] Co de Phone Number [facility] [place] [address] * EKG 12 Lead (06/15/2018 10:36 AM EDT) Ventricular rate 84 BPM MUSE SYSTEM Atrial Rate 84 BPM MUSE SYSTEM P-R Interval 120 ms MUSE SYSTEM QRS Duration 86 ms MUSE SYSTEM Q-T Interval 358 ms MUSE SYSTEM QTC Calculated (Bezet) 423 ms MUSE SYSTEM Calculated P [place] 21 degrees MUSE SYSTEM Calculated R [place] 61 degrees MUSE SYSTEM Calculated T [place] 74 degrees MUSE SYSTEM INTERPRETATION Normal sinus rhythm Normal ECG When compared with ECG of 14-JUN-2018 18:41, No significant change was found Confirmed by MD TERESA, RADHA ([id number]) on 06/15/2018 12:42:42 PM MUSE SYSTEM 06/15/2018 10:3 6 AM EDT 06/15/2018 12:42 PM EDT Joshua Jasmine MD ECG ORDERABLES Performing Organization Address [facility] Co de Phone Number MUSE SYSTEM * (ABNORMAL) Basic Metabolic Panel (non-fasting) (06/15/2018 7:21 AM EDT) Glucose 137 65 - 199 mg/dL [facility] Comment:Diabetes: >=200 mg/d L plus symptoms Blood Urea Nitrogen 24(H) 10 - 20 mg/dL [facility] Creatinine 0.82 0.80 - 1.50 mg/dL [facility] Sodium 137 135 - 145 mmol/L [facility] Potassium 4.4 3.5 - 5.0 mmol/L [facility] Comment: Please note: ??Patients with WBC >100,000 may have falsely elevated Potassium levels. ??For accurate Potassium quantification in these patients send serum separator tube (gold top) for subsequent determinations. ??Contact the Clinical Chemistry Laboratory if there are any questions. Chloride 100 98 - 107 mmol/L [facility] Carbon Dioxide 25 22 - 31 mmol/L [facility] Anion Gap 12 5 - 15 mmol/L [facility] Calcium 8.7 8.5 - 10.5 mg/dL [facility] Est Glomerular Filtration Rate 95 >=60 mL/min/1. 73 m?? [facility] Comment: The eGFR was calculated using the CKD-EPI equation. As with all creatinine based estimates of kidney function, eGFR values calculated with the CKD-EPI equation are not accurate in patients with acute kidney failure, extremes of body mass or the acutely ill. [email or web address] eGFR 110 >=60 mL/min/1. 73 m?? [facility] Comment: The eGFR was calculated using the CKD-EPI equation. As with all creatinine based estimates of kidney function, eGFR values calculated with the CKD-EPI equation are not accurate in patients with acute kidney failure, extremes of body mass or the acutely ill. [email or web address]/[email or web address] Blood specimen (specimen) 06/15/2018 7:21 AM EDT 06/15/2018 7:24 AM EDT Narrative Resulting Agency Comment Spec In Lab Joshua Jasmine MD CHEMISTRY ORDERABLES [facility] [place] [address] * (ABNORMAL) Hemogram (06/15/2018 1:56 AM EDT) White Blood Cell 15.4(H) 4.0 - 9.5 x10(3)/[facility] Red Blood Cell 3.81(L) 4.58 - 5.54 x10(6)/mc L [facility] Hemoglobin 11.6(L) 13.7 - 16.5 gm/dL [facility] Hematocrit 35.4(L) 40.5 - 48.5 % [facility] Mean Cell Volume 92.9 82.9 - 93.1 fL [facility] Mean Cell Hemoglobin 30.4 27.5 - 32.1 pg [facility] Mean Cell Hemoglobin Concentration 32.8 32.0 - 35.7 gm/dL [facility] Platelet 215 145 - 357 x10(3)/[facility] RDW Standard Deviation 47.7(H) 36.0 - 45.0 [facility] RDW coefficient of variation 14.0(H) 11.4 - 13.8 % [facility] Mean Platelet Volume 9.5 7.6 - 12.9 [facility]ORY NRBC% auto 0.0 % [facility] NRBC Absolute 0.000 0.000 - 0.000 x10(3)/[facility] Blood specimen (specimen) 06/15/2018 1:56 AM EDT 06/15/2018 2:03 AM EDT Narrative Resulting Agency Comment Spec In Lab Shahid Silver MD HEMATOLOGY ORDERABL ES [facility] [place] [address] * POCT Glucose (06/15/2018 12:26 AM EDT) Glucose, POC 134 65 - 199 mg/dL [facility] Comment: Supplemental ranges: <140 mg/dL before meals <180 mg/dL all other times of the day Blood specimen (specimen) 06/15/2018 12:26 AM EDT 06/15/2018 12:26 AM EDT Joshua Jasmine MD POINT OF CARE TEST O RDERABLES [facility] [place] [address] * SCAN DOC: ACADEMIC COORDINATOR (06/15/2018 12:00 AM EDT) Anatomical Region Laterality [...] and the C2 exchanged for an angled imaging system administrator 2 catheter. ??A 6 mm Amplatzer plug [...] by the IR Nurse.? Sharan Montez MD G IR ORDERABLES * XR Chest PA or [...] No acute osseous findings. Procedure Note Dejah Negro, - 06/14/2018 EXAMINATION: XR CHEST PA OR [...] PM EDT) ABORH Recheck Order Order Placed [facility] ABORH Type Recheck Complete [facility] Blood specimen (specimen) 06/14/2018 6:45 PM EDT 06/14/2018 6:55 PM EDT Narrative Resulting Agency Comment Spec In Lab Kenn Loving MD BLOOD BANK LAB ORDER MEAGAN [facility] [place] [address] * (ABNORMAL) Differential, Automated (06/14/2018 6:45 PM EDT) Neutrophil % 78.6 % [facility] Neutrophil Absolute 13.76(H) 1.70 - 6.10 x10(3)/mc L [facility] Lymph % 10.9 % [facility] Lymphocytes Abs 1.9 0.9 - 3.2 x10(3)/mc L [facility] Monocyte % 7.4 % [facility] Monocyte Abs 1.3(H) 0.3 - 0.9 x10(3)/mc L [facility] Eos % 1.8 % [facility] Eosinophils Abs 0.3 0.0 - 0.4 x10(3)/mc L [facility] Basophil % 0.6 % [facility] Baso Absolute 0.1 0.0 - 0.1 x10(3)/[facility] Immature Gran % 0.70 % [facility] Comment: Immature granulocytes(IG's)percentage and absolute count will include metamyelocytes, myelocytes, and promyelocytes. Blood smears from CBCs yielding IG's will be scanned manually for concordance. If this scan disagrees with the automated IG or if promyelocytes are noted, a manual differential will be performed. Immature Gran Absolute 0.13(H) 0.00 - 0.04 x10(3)/[facility] Blood specimen (specimen) 06/14/2018 6:45 PM EDT 06/14/2018 7:09 PM EDT Narrative Resulting Agency Comment Spec In Lab Kenn Loving MD HEMATOLOGY ORDERABLE S Performing Organization Address City/State/[facility] Co de Phone Number [facility] [place] [address] * (ABNORMAL) Hemogram (06/14/2018 6:45 PM EDT) White Blood Cell 17.5(H) 4.0 - 9.5 x10(3)/[facility] Red Blood Cell 4.17(L) 4.58 - 5.54 x10(6)/[facility] Hemoglobin 12.8(L) 13.7 - 16.5 gm/dL [facility] Hematocrit 38.3(L) 40.5 - 48.5 % [facility] Mean Cell Volume 91.8 82.9 - 93.1 fL [facility] Mean Cell Hemoglobin 30.7 27.5 - 32.1 pg [facility] Mean Cell Hemoglobin Concentration 33.4 32.0 - 35.7 gm/dL [facility] Platelet 221 145 - 357 x10(3)/[facility] LAB[facility] RDW Standard Deviation 47.5(H) 36.0 - 45.0 fL [facility] RDW coefficient of variation 13.9(H) 11.4 - 13.8 % [facility] Mean Platelet Volume 9.2 7.6 - 12.9 fL [facility] NRBC% auto 0.0 % [facility] NRBC Absolute 0.000 0.000 - 0.000 x10(3)/mc L [facility] Blood specimen (specimen) 06/14/2018 6:45 PM EDT 06/14/2018 7:09 PM EDT Narrative Resulting Agency Comment Spec In Lab Kenn Loving MD HEMATOLOGY ORDERABLE S Performing Organization Address City/[facility]/ZIP Co de Phone Number [facility] [place] [address] * Antibody screen (06/14/2018 6:45 PM EDT) Ab Screen Interp Negative [facility] Expires at [id number] on: 06/17/2018 [facility] Blood specimen (specimen) 06/14/2018 6:45 PM EDT 06/14/2018 6:55 PM EDT Narrative Resulting Agency Comment Spec In Lab Kenn Loving MD BLOOD BANK LAB ORDER MEAGAN Performing Organization Address City/[facility]/ZIP Co de Phone Number [facility] [place] [address] * ABO/Rh Typing (06/14/2018 6:45 PM EDT) ABORH Type A Pos [facility] Blood specimen (specimen) 06/14/2018 6:45 PM EDT 06/14/2018 6:55 PM EDT Narrative Resulting Agency Comment Spec In Lab Kenn Loving MD BLOOD BANK LAB ORDER MEAGAN [facility] [place] [address] * (ABNORMAL) APTT (06/14/2018 6:45 PM EDT) Partial Thromboplastin Time <20(L) 25 - 37 sec [facility] Comment: Decreased clotting times may [...] MD HEMATOLOGY ORDERABL ES Performing Organization Address [facility] Co de Phone Number [facility] [place] [address] * Prothrombin Time (06/14/2018 6:45 PM EDT) Pathologist [facility] Prothrombin Time 10.8 9.4 - 12.5 sec [facility] International Normalization Ratio 1.0 [facility] Comment: An INR <2.0 indicates [...] MD HEMATOLOGY ORDERABL ES Performing Organization Address [facility] Co de Phone Number [facility] [place] [address] * Basic Metabolic Panel (non-fasting) (06/14/2018 6:45 PM EDT) Glucose 121 65 - 199 mg/dL [facility] Comment:Diabetes: >=200 mg/d L plus symptoms Blood Urea Nitrogen 19 10 - 20 mg/dL [facility] Creatinine 0.87 0.80 - 1.50 mg/dL [facility] Sodium 137 135 - 145 mmol/L [facility] Potassium 4.6 3.5 - 5.0 mmol/L [facility] Comment: Please note: ??Patients with WBC >100,000 may have falsely elevated Potassium levels. ??For accurate Potassium quantification in these patients send serum separator tube (gold top) for subsequent determinations. ??Contact the Clinical Chemistry Laboratory if there are any questions. Chloride 100 98 - 107 mmol/L [facility] Carbon Dioxide 24 22 - 31 mmol/L [facility] Anion Gap 13 5 - 15 mmol/L [facility] Calcium 8.6 8.5 - 10.5 mg/dL [facility] Est Glomerular Filtration Rate 92 >=60 mL/min/1. 73 m?? [facility] Comment: The eGFR was calculated using the CKD-EPI equation. As with all creatinine based estimates of kidney function, eGFR values calculated with the CKD-EPI equation are not accurate in patients with acute kidney failure, extremes of body mass or the acutely ill. http://MarketV[employer]/DHMCnkf eGFR 107 >=60 mL/min/1. 73 m?? [facility] Comment: The eGFR was calculated using the CKD-EPI equation. As with all creatinine based estimates of kidney function, eGFR values calculated with the CKD-EPI equation are not accurate in patients with acute kidney failure, extremes of body mass or the acutely ill. [email or web address] Blood specimen (specimen) 06/14/2018 6:45 PM EDT 06/14/2018 7:09 PM EDT Narrative Resulting Agency Comment Spec In Lab Shahid Silver MD CHEMISTRY ORDERABLE S [facility] [place] [address] * EKG 12 Lead (06/14/2018 6:41 PM EDT) Ventricular rate 92 BPM MUSE SYSTEM Atrial Rate 92 BPM MUSE SYSTEM P-R Interval 114 ms MUSE SYSTEM QRS Duration 86 ms MUSE SYSTEM Q-T Interval 358 ms MUSE SYSTEM QTC Calculated (Bezet) 442 ms MUSE SYSTEM Calculated P [place] -14 degrees MUSE SYSTEM Calculated R [place] 56 degrees MUSE SYSTEM Calculated T [place] 68 degrees MUSE SYSTEM INTERPRETATION Normal sinus rhythm Normal ECG No previous ECGs available Confirmed by MD TERESA, RADHA ([id number]) on 06/15/2018 12:42:34 PM MUSE SYSTEM 06/14/2018 6:41 PM EDT 06/15/2018 12:42 PM EDT Shahid Silver MD ECG ORDERABLES MUSE SYSTEM documented in [...] 10 mg, Rectal, DAILY PRN, Starting on 06/17/18 at 1330, Until Sun06/18/18 at 1719, Constipation, Routine Given 06/17/2018 3:28 PM EDT 10 mg budesonide-formoterol (SYMBICORT) 160-4.5 mcg/actuation inhaler 2 Inhalation 2 .Inhalation , Inhalation, 2 TIMES DAILY, First dose on Sun06/14/18 at 2200, Until Discontinued, Routine Given 06/18/2018 8:50 AM EDT 2 .Inhalat ion Given 06/17/2018 8:15 PM EDT 2 .Inhalation Given 06/17/2018 9:33 AM EDT 2 .Inhalation buPROPion (WELLBUTRIN XL) XL tablet 300 mg [...] Oral, 2 TIMES DAILY, First dose on Sun06/15/18 at 0900, Until Discontinued, Routine Given 06/18/2018 [...] dose, Starting on 06/15/18 at 0428, Until 06/18/18 at 1719, Per Protocol, Routine heparin (Porcine) subcutaneous injection 5,000 Units 5,000 Units, Subcutaneous, EVERY 8 HOURS SCHEDULED, First dose on 06/16/18 at 0900, Until Discontinued, Routine Given 06/18/2018 2:34 PM EDT 5,000 Unit s Given 06/18/2018 6:05 AM EDT 5,000 Units Given 06/17/2018 10:32 PM EDT 5,000 Units hydrALAZINE (APRESOLINE) injection 5 mg 5 mg, Intravenous, EVERY 6 HOURS PRN, Starting on 06/15/18 at 1040, Until 06/18/18 at 1719, High Blood Pressure, for systolic >170 non-responsive to labetalol. Given 06/15/2018 4:27 PM EDT 5 mg HYDROmorphone (DILAUDID) injection 0.2 mg 0.2 mg, Intravenous, EVERY 4 HOURS PRN, Starting on 06/15/18 at 1027, Until 06/17/18 at 1212, Pain, STAT Given 06/15/2018 4:59 PM EDT 0.2 mg Given 06/15/2018 11:05 AM EDT 0.2 mg HYDROmorphone (DILAUDID) injection 0.5 mg 0.5 mg, Intravenous, EVERY 2 HOURS PRN, Starting on Sun06/14/18 at 1948, Until 06/15/18 at 0051, Pain, STAT Given 06/14/2018 8:20 [...] at 100 mL/hr, Intravenous, CONTINUOUS, Starting on Sun06/15/18 at 0115, Until Sun06/15/18 at 0659 New [...] Oral, EVERY 4 HOURS PRN, Starting on 06/14/18 at 2112, Until 06/15/18 at 0659, Pain, Routine Given 06/15/2018 2:02 AM EDT 5 mg oxyCODONE (ROXICODONE) immediate release tablet 5 mg 5 mg, Oral, EVERY 4 HOURS PRN, Starting on 06/15/18 at 0958, Until 06/15/18 at 1957, Pain, Routine Given 06/15/2018 7:36 PM EDT 5 mg Given 06/15/2018 3:05 PM EDT 5 mg Given 06/15/2018 10:04 AM EDT 5 mg oxyCODONE (ROXICODONE) immediate release tablet 5 mg 5 mg, Oral, EVERY 4 HOURS PRN, Starting on 06/18/18 at 0515, Until Tu06/18/18 at 1719, Pain, For pain 3-6 give [...] at 0051, Until Sun06/18/18 at 1719, Nausea, Nausea/Vomiting, If multiple antiemetics are ordered, use ondansetron first. If ondansetron ineffective use prochlorperazine. , Routine Given 06/15/2018 4:59 PM EDT 10 mg prochlorperazine (COMPAZINE) tablet 10 mg 10 mg, Oral, EVERY 6 HOURS PRN, Starting on 06/15/18 at 0051, Until Sun06/18/18 at 1719, Nausea, Nausea/Vomiting, If multiple antiemetics [...] at 100 mL/hr, Intravenous, CONTINUOUS, Starting on Sun06/14/18 at 2146, Until 06/15/18 at 0031, Day [...] (SYMBICORT) 160-4.5 mcg/actuation inhaler 2 Inhalation 2 .Inhalation , Inhalation, 2 TIMES DAILY, First dose on Sun06/14/18 at 2200, Until Discontinued, Routine 0818 (Given - Provider: Elisabet Stearns RN)2100 (Given - Provider: Latha Alatorre, NING) 0933 (Given - Provider: Griffin Prasad, NING)2015 (Given - Provider: Jia Allen RN) 0850 [...] RN)211 (Given - Provider: Latha Alatorre RN) 09 (Given - Provider: Griffin Prasad RN)2014 (Given - Provider: Jia Allen RN) 0851 (Given - Provider: Jessica Cummings) heparin (Porcine) subcutaneous injection 5,000 Units 5,000 Units, Subcutaneous, EVERY 8 HOURS SCHEDULED, First dose on 06/16/18 at 0900, Until Discontinued, Routine 0900 (Not Given - Provider: Elisabet Stearns RN - Reason: See comment - Comment: new order)1312 (Given - Provider: Elisabet Stearns RN)211 (Given - Provider: Latha Alatorre RN) 0557 (Given - Provider: Latha Alatorre RN)1319 (Given - Provider: Griffin Prasad RN)2232 (Given - Provider: Jia Allen RN) 0605 (Given - Provider: Jia Allen RN)1434 (Given - Provider: Griffin Prasad, NING) lidocaine (LIDODERM) 5 % patch 1 patch(Linked Group 1) 1 patch, Transdermal, EVERY 24 HOURS, First dose on 06/15/18 at 0730, Until Discontinued, Apply patch(es) for 12 hours, and then remove for 12 hours, Routine 0818 (Patch Applied - Provider: Elisabet Stearns RN) 07 (Patch Applied - Provider: Myrriah R Gonyaw, RN) 0852 (Patch Applied - Provider: Jessica Cummings) lidocaine (LIDODERM) 5 %(700 mg/patch) Patch Removal(Linked Group 1) Transdermal, EVERY 24 HOURS, First dose on 06/15/18 at 1915, Until Discontinued, Remove lidocaine 5 %(700 mg/patch) patch 1914 (Patch Removed - Provider: Latha Alatorre RN) 1914 (Patch Removed - Provider: Jia Allen RN) lisinopril (PRINIVIL;ZESTRIL) tablet 10 mg 10 mg, Oral, DAILY, First dose on Sun06/16/18 at 0900, Until Discontinued, Routine 0819 (Given - Provider: Elisabet Stearns RN) 0930 (Given - Provider: Griffin Prasad RN) 0853 (Given - Provider: Jessica Cummings) magnesium hydroxide (MILK OF MAGNESIA) oral suspension 5 mL (COMPLETED) 5 mL, Oral, ONCE, 1 dose, On 06/17/18 at 1400, 10 mL concentrate = 30 mL regular, Routine 1403 (Given - Provider: Griffin Prasad RN) polyethylene glycol (MIRALAX) packet 17 g 17 g, Oral, DAILY, First dose on 06/15/18 at 0900, Until Discontinued, Routine 0818 (Given - Provider: Elisabet Stearns RN) 0931 (Given - Provider: Griffin Prasad RN) 0853 (Given - Provider: Jessica Cummings) sodium chloride 0.9 % flush 5 mL 5 mL, Intravenous, 2 TIMES DAILY, First dose on 06/15/18 at 0115, Until Discontinued, Routine 0900 (Not Given - Provider: Elisabet Stearns RN - Reason: Patient/family refused)2116 (Given - Provider: Latha Alatorre, NING) 931 (Given - Provider: Griffin Prasad, NING)2015 (Given - Provider: Jia Allen RN) 0900 (Not Given - Provider: Jessica Cummings - Reason: Loss of access) traZODone (DESYREL) tablet 100 mg 100 mg, Oral, NIGHTLY, First dose on 06/15/18 at 2100, Until Discontinued, Routine 2115 (Given - Provider: Latha Alatorre, NING) 2015 (Given - Provider: Jia Allen, RN) PRN Medication Order 06/16/2018 06/17/2018 06/18/2018 bisacodyl (DULCOLAX) suppository 10 mg 10 mg, Rectal, DAILY PRN, Starting on 06/17/18 at 1330, Until Sun06/18/18 at 1719, Constipation, Routine 1528 (Given - Provider: Griffin Prasad, NING) cyclobenzaprine [...] Routine 1440 (Canceled Entry - Provider: Griffin Prasad, NING - Reason: Patient/family refused) hydrALAZINE (APRESOLINE) injection [...] Nebulization, EVERY 4 HOURS PRN, Starting on 06/14/18 at 2111, Until Sun06/18/18 at 1719, Wheezing, [...] 1758, Until Sun06/18/18 at 1719, Constipation, Routine 2016 (Given - Provider: Jia Allen RN) lidocaine (XYLOCAINE) 10 mg/mL (1 %) injection 3 mg 3 mg (0.3 mL), Subcutaneous, ONCE PRN, 1 dose, Starting on 06/15/18 at 0051, Until Sun06/18/18 at 171, for discomfort with PIV insertion, Routine ondansetron (ZOFRAN) injection 4-8 mg(Linked Group 2) 4-8 mg, Intravenous, EVERY 8 HOURS PRN, Starting on 06/15/18 at 0051, Until Sun06/18/18 at 171, Nausea, Start with 4mg and if ineffective [...] Griffin Prasad RN)1434 (Given - Provider: Griffin Prasad, NING) oxyCODONE (ROXICODONE) immediate release tablet 5-10 mg (CANCELED) 5-10 mg, Oral, EVERY 4 HOURS PRN, Starting on 06/15/18 at 1956, Until Sun06/18/18 at 0516, Pain, For pain 3-6 give 5mg. For pain 7-10 give 10mg., Routine 0048 (Given - Provider: Fanta Art RN)0438 (Given - Provider: Fanta Art RN)0909 (Given - Provider: Elisabet Stearns RN)1312 (Given - Provider: Elisabet Stearns, NING)1714 (Given - Provider: Elisabet Stearns RN)2116 (Given - Provider: Latha Alatorre, NING) 0118 (Given - Provider: Latha Alatorre, NING)0557 (Given - Provider: Latha Alatorre, NING)1021 (Given - Provider: Griffin Prasad RN)1422 (Given - Provider: Griffin Prasad, NING)1822 (Given - Provider: Griffin Prasad, NING)2232 (Given - Provider: Jia Allen RN) 0345 (Given - Provider: Sherita Mahajan RN) prochlorperazine (COMPAZINE) injection 10 mg(Linked Group 3) 10 mg, Intravenous, EVERY 6 HOURS PRN, Starting on 06/15/18 at 0051, Until Sun06/18/18 at 1719, Nausea, Nausea/Vomiting, If multiple antiemetics are ordered, use ondansetron first. If ondansetron ineffective use prochlorperazine. , Routine prochlorperazine (COMPAZINE) tablet 10 mg(Linked Group 3) 10 mg, Oral, EVERY 6 HOURS PRN, Starting on 06/15/18 at 0051, Until Sun06/18/18 at 1719, Nausea, Nausea/Vomiting, If multiple antiemetics are ordered, use ondansetron first. If ondansetron ineffective use prochlorperazine. PO Preferred. If patient unable to take PO, may give IV if ordered., Routine sodium chloride 0.9 % flush 5-20 mL 5-20 mL, Intravenous, EVERY 1 MIN PRN, Starting on 06/15/18 at 0051, Until Sun06/18/18 at 1719, flush, Flush pertains to all [...] Routine documented in this encounter Care Teams Shop Firer/Fireman Relationship Specialty Start Date End Date None None PCP - General 08/09/10 07/22/18 documented as of this encounter
--- OUTSIDE RECORDS SUMMARY | 2024-08-06 12:10 | XMS_ITS | Encounter Summary ---
Author Organization [facility] Address [facility] [place] [address] Care Team Providers Care Warehouse Representative Name Role Phone Tammy Farley MD Primary Care Provider [phone] Encounter Details Date Type Department Care Team (Late st Contact Info) Description 04/29/2020 10:55 PM EDT Ancillary Procedure Radiology Library at [facility] [place] [address] Luca Teixeira MD [facility] [place]LAST[place] [address] Social History Tobacco Use Types Packs/Day Years [...] 1:30 PM EST Clinical [place] [address] 08/07/2024 3:30 PM EST [place]uled [place] [address] documented as of this encounter Procedures Procedure Name Priority Date/Time Associated Diagnosis Comments FILM LIBRARY STORAGE ONLY CT HEAD AND SPINE Routine 04/29/2020 10:50 PM EDT documented in this encounter Results * Film Library- Storage Only CT Head And Spine (04/29/2020 10:50 PM EDT) Narrative DAMIAN VILLANUEVA - 04/29/2020 10:50 PM EDT This exam is auto-finalizing. It's purpose is for storage only. Luca Teixeira MD IMG FILM LIBRARY ORD ERABLES [place], [place] documented in this encounter Visit Diagnoses Not on filedocumented in this encounter Care Teams Warehouse Representative Relationship Specialty Start Date End Date Tammy Farely MD [address] [place] [address] PCP - General Family Medicine 07/23/18 05/06/20 documented as of this encounter
--- OUTSIDE RECORDS SUMMARY | 2024-08-06 12:10 | XMS_ITS | Encounter Summary ---
Author Organization [facility] Address [facility] [place] [address] Care Team Providers Care Commercial Specialist Name Role Phone None Primary Care Provider Unavailabl e Reason for Visit * Reason Onset Date Comments Results 03/28/2016 Encounter Details Date Type Department Care Team (Late st Contact Info) Description 03/28/2016 Telephone [place] [phone] Braydon Carrillo MD [facility] [place] [address] Results Social History Tobacco Use Types Packs/Day [...] Best number to reach the patient # [phone], requesting to fax results as well # [phone] attn howie Sung will forward your message to the team and someone will follow up with you within 48 hours. documented in this encounter Plan of Treatment Upcoming Encounters Date Type Department Care Team (Late st Contact Info) Description 08/07/2024 1:30 PM EST Clinical [place] [address] 08/07/2024 3:30 PM EST Scheduled [place] [address] documented as of this encounter Visit Diagnoses Not on filedocumented in this encounter Care Teams Commercial Specialist Relationship Specialty Start Date End Date None None PCP - General 08/09/10 07/22/18 documented as of this encounter
--- OUTSIDE RECORDS SUMMARY | 2024-08-06 12:10 | XMS_ITS | Encounter Summary ---
Author Organization [facility] Address [facility] [place] [address] Care Team Providers Care Geology Teacher Name Role Phone None Primary Care Provider Unavailabl e Encounter Details Date Type Department Care Team (Latest Contact Info) Description 06/14/2018 6:49 PM EDT - 06/14/2018 11:59 PM EDT Hospital Encounter Radiology Library at [facility] [place] [place] [address] Discharge Disposition: Home Social History Tobacco Use [...] Take 100 mg by mouth nightly. multivitamin Kudq-Dm-BO-Min (THERAPEUTIC-M) 27-0.4 mg Tablet Take 1 tablet [...] 1:30 PM EST [place] [address] 08/07/2024 3:30 PM EST [place]uled [place] [address] documented as of this encounter Procedures Procedure [...] injury. Jose A Sargent MD IMG OUTSIDE [facility] TATION ORDERABLES documented in this encounter Visit Diagnoses Not on filedocumented in this encounter Care Teams Geology Teacher Relationship Specialty Start Date End Date None None PCP - General 08/09/10 07/22/18 documented as of this encounter
--- OUTSIDE RECORDS SUMMARY | 2024-08-06 12:10 | XMS_ITS | Encounter Summary ---
[facility] [place] [address] Care Team Providers Care Headmaster/Mistress Name Role Phone None Primary Care Provider Unavailabl e Encounter Details Date Type Department Care Team (Late st Contact Info) Description 03/08/2016 Orders [place] [address] Sherita Morley Social History Tobacco Use Types [...] 1:30 PM EST Clinical [place] [address] 08/07/2024 3:30 PM EST Scheduled [place] [address] documented as of this encounter Visit Diagnoses Not on filedocumented in this encounter Care Teams Headmaster/Mistress Relationship Specialty Start Date End Date None None PCP - General 08/09/10 07/22/18 documented as of this encounter
--- OUTSIDE RECORDS SUMMARY | 2024-08-06 12:10 | XMS_ITS | Encounter Summary ---
Author Organization [facility] Address [facility] [place] [address] Care Team Providers Care Manager Mac Name Role Phone Tammy Farley MD Primary Care Provider [phone] Encounter Details Date Type Department Care Team (Late st Contact Info) Description 07/23/2018 1:00 PM EST Office [place] [address] Alisson Munoz, JEWELRY POLISHER [facility] [place] [address] Splenic trauma, subsequent encounter Social History Tobacco [...] this encounter Progress Notes * Alisson Munoz, JEWELRY POLISHER - 07/23/2018 1:00 PM EST Jimenez Marin [...] has been doing well. Jimenez lives at [facility] in [place], [place] it is an assisted living facility. [...] 1:30 PM EST Clinical [place] [address] 08/07/2024 3:30 PM EST Scheduled [place] [address] documented as of this encounter Procedures Procedure Name Priority Date/Time Associated Diagnosis Comments HEMOGRAM STAT 07/23/2018 1:55 PM EST Splenic trauma, subsequent encounter documented in this encounter Results * (ABNORMAL) Hemogram (07/23/2018 1:55 PM EST) White Blood Cell 15.2(H) 4.0 - 9.5 x10(3)/mc L [facility] Red Blood Cell 5.20 4.58 - 5.54 x10(6)/mc L [facility] Hemoglobin 15.2 13.7 - 16.5 gm/dL [facility] Hematocrit 46.3 40.5 - 48.5 % [facility] Mean Cell Volume 89.0 82.9 - 93.1 fL [facility] Mean Cell Hemoglobin 29.2 27.5 - 32.1 pg [facility] Mean Cell Hemoglobin Concentration 32.8 32.0 - 35.7 gm/dL [facility] Platelet 368(H) 145 - 357 x10(3)/[facility] RDW Standard Deviation 48.2(H) 36.0 - 45.0 fL [facility] RDW coefficient of variation 14.7(H) 11.4 - 13.8 % [facility] Mean Platelet Volume 8.8 7.6 - 12.9 fL [facility] NRBC% auto 0.0 % [facility] NRBC Absolute 0.000 0.000 - 0.000 x10(3)/[facility] Blood specimen (specimen) 07/23/2018 1:55 PM EST 07/23/2018 2:05 PM EST Narrative Resulting Agency Comment Spec In Lab Alisson Munoz JEWELRY POLISHER HEMATOLOGY ORDERAB LES [facility] [place] [address] documented in this encounter Visit Diagnoses Diagnosis Splenic trauma, subsequent encounter documented in this encounter Care Teams Manager Mac Relationship Specialty Start Date End Date Tammy Farley MD [address] [place] [address] PCP - General Family Medicine 07/23/18 05/06/20 documented as of this encounter
--- OUTSIDE RECORDS SUMMARY | 2024-08-06 12:10 | XMS_ITS | Encounter Summary ---
Author Organization [facility] Address [facility] [place] [address] Care Team Providers Care Tribal Delegate Name Role Phone None Primary Care Provider Unavailabl e Reason for Visit * Reason Comments Right Shoulder Pain Encounter Details Date Type Department Care Team (Late st Contact Info) Description 04/11/2016 10:30 AM EDT Office Visit Orthopaedics at [facility] [place] [address] Sharan Kingston MD [facility] DR [place] [address] Chronic right shoulder pain Social History Tobacco [...] 1:30 PM EST [place] [address] 08/07/2024 3:30 PM EST [place]uled [place] [address] documented as of this encounter Visit Diagnoses Diagnosis Chronic right shoulder pain Pain in joint, shoulder region documented in this encounter Care Teams Tribal Delegate Relationship Specialty Start Date End Date None None PCP - General 08/09/10 07/22/18 documented as of this encounter
--- OUTSIDE RECORDS SUMMARY | 2024-08-06 12:10 | XMS_ITS | Encounter Summary ---
Author Organization [facility] Address [facility] [place] [address] Care Team Providers Care Shop Tailor Name Role Phone Tammy Farley MD Primary Care Provider [phone] Encounter Details Date Type Department Care Team (Late st Contact Info) Description 04/29/2020 Ancillary Procedure Radiology Library at [facility] [place] [phone] Luca Teixeira MD [facility] [place] [address] Social History Tobacco Use Types Packs/Day Years [...] 1:30 PM EST Clinical [place] [address] 08/07/2024 3:30 PM EST Scheduled [place] [address] documented as of this encounter Procedures Procedure Name Priority Date/Time Associated Diagnosis Comments FILM LIBRARY- STORAGE ONLY CT FACE Routine 04/29/2020 12:00 AM EDT documented in this encounter Results * Film Library-Storage Only CT Face (04/29/2020 12:00 AM EDT) Narrative RAD - 04/30/2020 12:29 AM EDT This exam is auto-finalizing. It's purpose is for storage only. Luca Teixeira MD IMG FILM LIBRARY ORD ERABLES [place], [place] documented in this encounter Visit Diagnoses Not on filedocumented in this encounter Care Teams Shop Tailor Relationship Specialty Start Date End Date Tammy Farley MD [address] [place] [address] PCP - General Family Medicine 07/23/18 05/06/20 documented as of this encounter
--- OUTSIDE RECORDS SUMMARY | 2024-08-06 12:10 | XMS_ITS | Clinical Summary ---
Author Organization [facility] Address [address] [place] [address] Care Team Providers Care Archives Specialist Name Role Phone Unavailable Primary Care Provider Unavailabl e Allergies Active Allergy Reactions Criticality Noted Date Comments Carbamazepine Hives 11/13/2009 Medications amitriptyline (ELAVIL) 50 mg tablet Take 50 mg by mouth at bedtime. Active citalopram (CELEXA) 20 mg tablet Take 60 mg by mouth daily. Active aspirin chewable 81 mg tablet Take 1 Tab by mouth daily. 01/03/2014 Active mometasone-form oterol (DULERA) 100-5 mcg/actuation Inhale 2 Puffs as [...] Date Diagnosed Date Hypothyroidism 02/23/2015 Depression 02/23/2015 Overview (02/23/2015): bipolar GERD (gastroesophageal reflux disease) 5 Seizures ([facility]) 02/23/2015 NSTEMI (non-ST elevated myocardial infarction) ( [facility]) 01/20/2014 ETOH abuse 01/20/2014 NSTEMI (non-ST elevated myocardial infarction) ( [facility]) 01/02/2014 Chronic right shoulder pain 07/21/2012 Cervical [...] Hyperlipidemia COPD (chronic obstructive pu lmonary disease) ([facility]) Multiple injuries of head ETOH abuse Bipolar disorder ([facility]) Chronic right shoulder pain 07/21/2012 Cervical spondylosis [...] Recorded Sex Assigned at Not on file Legal Sex Male 18:48 EST Gender Identity Not on file Sexual Orientation [...] 02/23/2015 Review Of Systems Adverse Effects 02/23/2015 [place] Prescription Monitor ing System 02/23/2015 Urine Drug Screen 04/03/2015 04/03/2014 Lipid Profile Screening (Cholesterol) 01/19/2019 01/19/2014, 01/03/2014, 11/14/2009 Abdominal Aortic Aneurysm (A AA Screen) 2021 Fall Risk Screening 2021 Pneumococcal Immunization (6 5+) (2 of 2 - PCV) 2021 04/03/2014 COVID-19 Vaccine ( - 2023- season) 2024 Influenza Immunization (Adult) (#1) 2024 RSV Immunization ( o r 60+ Years) (1 - 1-dose 75+ series) 2031 Procedures Procedure Name Priority Date/Time Associated Diagnosis [...] is urine. Cocaine Metabolites, Ur Negative screen. [facility] Comment: Confirmation testing available upon request. Suitable for medical purposes only. Will not detect all drugs within class. Cutoff = 300 ng/ml Specimen type is urine. Urine specimen (specimen) URINE / Unknown 04/03/2014 10:12 EDT 04/03/2014 10:23 EDT us Erich Delgado MD URINALYSIS ORDERABLES Final Re sult [facility] [address] [place] [address] * LIPID PROFILE (INCLUDES CHOLESTEROL, TRIGLYCERIDES, HDL, LDL) (01/19/2014 5:40 EDT) Cholesterol 162 mg/dl [facility] Comment: Desirable:<200 Borderline High:200-239 High:>fu=304 Triglycerides 89 mg/dl [facility] Comment: Normal:<150 Borderline High:150-199 High:200-499 Very High:>oj=222 HDL 102 mg/dl [facility] Comment: Low:<40 Normal:40-60 Desirable: >60 LDL, Calculated 42 mg/dl JANELGuerline [facility] Comment: Optimal:<100 Near Optimal:100-129 Borderline High:130-159 High:160-189 Very High:>ke=650 Chol/HDL Ratio 1.6 ULISES [facility] Fasting? Unknown [facility] Non HDL Cholesterol 60 mg/dl [facility] Comment: Desirable:<130 Borderline:130-159 High: 160-189 Very High: >on=768 Blood specimen (specimen) 01/19/2014 5:40 EDT 01/19/2014 5:55 EDT us Sridevi Alvarez MD CHEMISTRY & BLOOD GAS ORDERABL ES Final Result [facility] [address] [place] [address] from Last 3 Months or Most Recently Relevant to Health Maintenance Advance Directives For more information, please contact: [phone] * Full Code (Latest Code Status on [...]
--- OUTSIDE RECORDS SUMMARY | 2024-08-06 12:10 | XMS_ITS | Encounter Summary ---
Author Organization [facility] Address [facility] [place] [address] Care Team Providers Care Jr. Java Developer Name Role Phone None Primary Care Provider Unavailabl e Encounter Details Date Type Department Care Team (Late st Contact Info) Description 02/09/2016 - 02/09/2016 11:59 PM EDT Hospital Encounter Radiology Library at [facility] [place] [address] Tammy Farley MD [address] [place], [place] [address] Pain Discharge Disposition: Home Social History Tobacco [...] tablet by mouth Daily @ 0600. 01/23/2014 documented as of this encounter Plan of Treatment Upcoming Encounters Date Type Department Care Team (Late st Contact Info) Description 08/07/2024 1:30 PM EST Clinical [place] [address] 08/07/2024 3:30 PM EST Scheduled [place] [address] documented as of this encounter Procedures Procedure Name Priority Date/Time Associated Diagnosis Comments FILM LIBRARY STORAGE ONLY DX SHOULDER Routine 02/09/2016 12:00 AM EDT Pain documented in this encounter Results * Film Library- Storage only DX Shoulder (02/09/2016 12:00 AM EDT) Narrative RAD - 02/10/2016 9:35 AM EDT This exam is for storage only and is auto-finalizing. Tammy Farley MD IMG FILM LIBRARY ORD ERABLES [place], [place] documented in this encounter Visit Diagnoses Diagnosis Pain Generalized pain documented in this encounter Care Teams Jr. Java Developer Relationship Specialty Start Date End Date None None PCP - General 08/09/10 07/22/18 documented as of this encounter
--- OUTSIDE RECORDS SUMMARY | 2024-08-06 12:10 | XMS_ITS | Encounter Summary ---
Author Organization [facility] [place] [address] Care Team Providers Care Fashion Consultant Sales Name Role Phone RanjitNess elkins DARIANA Primary Care Provider [phone] Reason for Referral * Diagnostic Test (Routine) - Closed Specialty Diagnoses / Procedures Referred By Contac t Referred To Contact Radiology Diagnoses Pleural nodule Procedures NM PET CT Skull Base to Mid-thigh Mabel Gurrola PA [address] [place] [address] [place] [address] Referral ID Status Reason Start Date Expiration Date V isits Requested Visits Authorized [id number] Closed Specialty Service Requested 10/23/2022 04/22/2024 1 1 Reason for Visit * Diagnostic Test (Routine) - Closed Specialty Diagnoses / Procedures Referred By Contac t Referred To Contact Radiology Diagnoses Pleural nodule Procedures NM PET CT Skull Base to Mid-thigh Mabel Gurrola PA [address] [place] [address] [place] [address] Referral ID Status Reason Start Date Expiration Date V isits Requested Visits Authorized [id number] Closed Specialty Service Requested 10/23/2022 04/22/2024 1 1 Encounter Details Date Type Department Care Team (Latest Contact Info) Description 11/13/2022 2:27 PM EST Hospital Encounter [place] [address] Mabel Gurrola PA [address] [place] [address] Pleural nodule Discharge Disposition: Home Social History [...] mouth daily. fluticasone propionate (FLONASE) 50 mcg/actuation Thida, Suspension 1 spray daily. lisinopril (PRINIVIL;ZESTRIL) 10 mg Tablet Take 10 mg by mouth daily. aspirin 81 mg Tablet, Delayed Release (E.C.) Take 81 mg by mouth daily. omeprazole (PRILOSEC) 20 mg Capsule, Delayed Release(E.C.) Take 20 mg by mouth daily. traZODone (DESYREL) 100 mg Tablet Take 100 mg by mouth nightly. multivitamin Grsj-Gg-AJ-Min (THERAPEUTIC-M) 27-0.4 mg Tablet Take 1 tablet [...] 1:30 PM EST [place] [address] 08/07/2024 3:30 PM EST [place]uled [place] [address] documented as of this encounter Procedures Procedure [...] questions please contact the health critical care nurse practitioner that requested your imaging first. ? Electronically signed by: Ashley Kerr MD, [facility] ([phone]), at 11/16/2022 9:49 AM Narrative 11/16/2022 9:49 AM EST EXAMINATION: NM PET CT STANDARD SKULL BASE TO MID-THIGH CLINICAL HISTORY: pleural nodule; concern for lung ca TECHNIQUE: Following IV injection of 05-fnndhq-9-deoxyglucose (FDG) a standard uptake of approximately 60 [...] [facility]. CT abdomen/pelvis 07/05/[address] [facility] CT chest, abdomen, and pelvis 06/14/2018 from [facility] FINDINGS: HEAD/NECK: Symmetric muscular activity in the [...] Note Ashley Kerr MD - 11/16/2022 EXAMINATION: [place] PET CT STANDARD SKULL BASE TO MID-THIGH CLINICAL HISTORY: pleural nodule; concern for lung ca TECHNIQUE: Following IV injection of 69-edofjr-3-deoxyglucose (FDG) astandard uptake of approximately 60 minutes, a noncontrast CT scan followed by aPET scan were acquired from the base of the skull to mid thighs. The noncontrast CTwas used for anatomic localization and photon attenuation correction of thePET scan. No oral contrast was administered. Blood glucose level: 105 (mg/dL) FDG dose: 8.8 mCi [address]:. CT head, face, and cervical spine 04/29/2020 from [facility]. CT abdomen/pelvis 07/05/[address] [facility] CT chest, abdomen, and pelvis 06/14/2018 from [facility] FINDINGS: HEAD/NECK: Symmetric muscular activity in the [...] of background mediastinal blood pool, not seen [id number] CT. This is indeterminate for an inflammatory [...] have questions please contactthe health critical care nurse practitioner that requested your imaging first. Electronically signed by: Ashley Kerr MD, [facility]([phone]), at 11/16/2022 9:49 AM Mabel ORTIZ IMG PET ORDERABL ES documented [...] Arm documented in this encounter Care Teams Fashion Consultant Sales Relationship Specialty Start Date End Date Ness Diaz, QUALITY CONTROL CLERK [address] [place] [address] PCP - General Family Medicine 05/07/20 05/08/24 documented as of this encounter
--- OUTSIDE RECORDS SUMMARY | 2024-08-06 12:10 | XMS_ITS | Encounter Summary ---
Author Organization [facility] Address [facility] [address] Care Team Providers Care Wax Blender Name Role Phone Ness Diaz DARIANA Primary Care Provider Encounter Details Date Type Department Care Team (Latest Contact Info) Description 06/23/2020 11:30 AM EDT TH Visit (TeleHealth) [place] [address] Matilda Zapata APRN [facility] [place] [address] Closed fracture of face bones due to [...] dizzy spells and numbness in face around congregational and gums on right side. He was [...] 1:30 PM EST Clinical [place] [address] 08/07/2024 3:30 PM EST Scheduled [place] [address] documented as of this encounter Visit Diagnoses Diagnosis Closed fracture of face bones due to fall with routine healing, subsequent encounter documented in this encounter Care Teams Wax Blender Relationship Specialty Start Date End Date Ness Diaz APRN [address] [place] [address] PCP - General Family Medicine 05/07/20 05/08/24 documented as of this encounter
--- OUTSIDE RECORDS SUMMARY | 2024-08-06 12:10 | XMS_ITS | Encounter Summary ---
Author Organization [facility] Address [facility] [place] [address] Care Team Providers Care Software Project Lead Name Role Phone None Primary Care Provider Unavailabl e Encounter Details Date Type Department Care Team (Late st Contact Info) Description 01/12/2016 - 01/12/2016 11:59 PM EDT Hospital Encounter Radiology Library at [facility] [place] [address] Tammy Farley MD [address] [place], [place] [address] Pain Discharge Disposition: Home Social History Tobacco [...] 1:30 PM EST Clinical [place] [address] 08/07/2024 3:30 PM EST Scheduled [place] [address] documented as of this encounter Procedures Procedure Name Priority Date/Time Associated Diagnosis Comments FILM LIBRARY STORAGE ONLY DX SPINE Routine 01/12/2016 12:00 AM EDT Pain documented in this encounter Results * Film Library- Storage only DX Spine (01/12/2016 12:00 AM EDT) Narrative RAD - 02/10/2016 9:30 AM EDT This exam is for storage only and is auto-finalizing. Tammy Farley MD IMG FILM LIBRARY ORD ERABLES [place], [place] documented in this encounter Visit Diagnoses Diagnosis Pain Generalized pain documented in this encounter Care Teams Software Project Lead Relationship Specialty Start Date End Date None None PCP - General 08/09/10 07/22/18 documented as of this encounter
--- OUTSIDE RECORDS SUMMARY | 2024-08-06 12:10 | XMS_ITS | Encounter Summary ---
Author Organization [facility] Address [facility] [place] [address] Care Team Providers Care Database Management Specialist Name Role Phone None Primary Care Provider Unavailabl e Reason for Referral * Diagnostic Test (Routine) - Closed Specialty Diagnoses / Procedures Referred By Contac t Referred To Contact Radiology Diagnoses Acute pain of right shoulder Procedures MRI Shoulder Right WO Contrast (GENERIC) Edgar Escobar MD [facility] [place] [address] [place] [address] Referral ID Status Reason Start Date Expiration Date V isits Requested Visits Authorized [id number] Closed Specialty Service Requested 03/16/2016 06/14/2016 1 1 Reason for Visit * Diagnostic Test (Routine) - Closed Specialty Diagnoses / Procedures Referred By Contac t Referred To Contact Radiology Diagnoses Acute pain of right shoulder Procedures MRI Shoulder Right WO Contrast (GENERIC) Edgar Escobar MD [facility] [place] [address] [place] [address] Referral ID Status Reason Start Date Expiration Date V isits Requested Visits Authorized [id number] Closed Specialty Service Requested 03/16/2016 06/14/2016 1 1 Encounter Details Date Type Department Care Team (Latest Contact Info) Description 03/23/2016 6:59 AM EDT - 03/23/2016 11:59 PM EDT Hospital [place] [address] Braydon Carrillo MD [facility] [place] [address] Acute pain of right shoulder Discharge Disposition: [...] tablet by mouth Daily @ 0600. 01/23/2014 citalopram (CELEXA) 20 mg Tablet Take 20 [...] 1:30 PM EST [place] [address] 08/07/2024 3:30 PM EST Scheduled [place] [address] documented as of this encounter Procedures Procedure [...] shoulder documented in this encounter Care Teams Database Management Specialist Relationship Specialty Start Date End Date None None PCP - General 08/09/10 07/22/18 documented as of this encounter
--- OUTSIDE RECORDS SUMMARY | 2024-08-06 12:10 | XMS_ITS | Encounter Summary ---
Author Organization [facility] Address [facility] [place] [address] Care Team Providers Care Dialysis Social Worker Name Role Phone Ness Diaz DARIANA Primary Care Provider Encounter Details Date Type Department Care Team (Latest Contact Info) Description 07/31/2022 10:45 PM EST - 07/31/2022 11:59 PM EST Hospital [place] [address] Discharge Disposition: Home Social History Tobacco Use [...] mouth daily. fluticasone propionate (FLONASE) 50 mcg/actuation [place], Suspension 1 spray daily. lisinopril (PRINIVIL;ZESTRIL) 10 mg Tablet Take 10 mg by mouth daily. aspirin 81 mg Tablet, Delayed Release (E.C.) Take 81 mg by mouth daily. omeprazole (PRILOSEC) 20 mg Capsule, Delayed Release(E.C.) Take 20 mg by mouth daily. traZODone (DESYREL) 100 mg Tablet Take 100 mg by mouth nightly. multivitamin Buue-Xz-OV-Min (THERAPEUTIC-M) 27-0.4 mg Tablet Take 1 tablet [...] 1:30 PM EST Clinical [place] [address] 08/07/2024 3:30 PM EST Scheduled [place] [address] documented as of this encounter Procedures Procedure Name Priority Date/Time Associated Diagnosis Comments SURGICAL PATHOLOGY REPORT Routine 07/31/2022 4:53 PM EST documented in this encounter Results * Surgical Pathology Report (07/31/2022 4:53 PM EST) Final Diagnosis [id number] ? Location: [facility] The signing pathologist has (i) examined the relevant preparation(s) for the specimen(s) and (ii) rendered or confirmed the diagnosis(es). . ?Surgical Pathology DIAGNOSIS Toenail, clippings: - Onychomycosis Electronically signed by: ?Kyleigh Magallon MD Verified: ??08/04/2022 12:57 ??Dermatopatholog ist Performed at: ??-[facility] Dept. of [place]ology, [place] [address] Ivory Polisher: Elana Wakefield MD, FCAP, ??CLIA Certificate: [id number] ADDITIONAL STUDIES PAS/fungus stain highlights fungal hyphal elements in the nail tissue. SPECIMEN(S) SUBMITTED A - toenail clipping Referring Identifier: ??[id number] CLINICAL INFORMATION Onychomycosis SPECIMEN PROCESSING A - [...] Spec In Lab / WKS Sarah Guido MANUFACTURING ENGINEERING DIRECTOR PATHOLOGY/CYTOLOGY ORDERABLES [facility] [place] [address] documented in this encounter Visit Diagnoses Not on filedocumented in this encounter Care Teams Dialysis Social Worker Relationship Specialty Start Date End Date Ness Diaz APRN [address] [place] [address] PCP - General Family Medicine 05/07/20 05/08/24 documented as of this encounter
--- OUTSIDE RECORDS SUMMARY | 2024-08-06 12:10 | XMS_ITS | Encounter Summary ---
Author Organization [facility] Address [facility] [place] [address] Care Team Providers Care Clinical Appeals Auditor Name Role Phone None Primary Care Provider Unavailabl e Encounter Details Date Type Department Care Team (Late st Contact Info) Description 02/04/2016 - 02/04/2016 11:59 PM EDT Hospital Encounter Radiology Library [place] [address] Sharan Gee MD [address] [place], [place] [address] Pain Discharge Disposition: Home Social History Tobacco [...] 1:30 PM EST Clinical [place] [address] 08/07/2024 3:30 PM EST Scheduled [place] [address] documented as of this encounter Procedures Procedure Name Priority Date/Time Associated Diagnosis Comments FILM LIBRARY STORAGE ONLY MR SPINE Routine 02/04/2016 12:00 AM EDT Pain documented in this encounter Results * Film Library- Storage only MR Spine (02/04/2016 12:00 AM EDT) Narrative RAD - 02/10/2016 9:39 AM EDT This exam is for storage only and is auto-finalizing. Sharan Gee MD IMG FILM LIBRARY ORD ERABLES [place], [place] documented in this encounter Visit Diagnoses Diagnosis Pain Generalized pain documented in this encounter Care Teams Clinical Appeals Auditor Relationship Specialty Start Date End Date None None PCP - General 08/09/10 07/22/18 documented as of this encounter
--- OUTSIDE RECORDS SUMMARY | 2024-08-06 12:10 | XMS_ITS | Encounter Summary ---
Author Organization [facility] Address [facility] [place] [address] Care Team Providers Care Access Manager Name Role Phone None Primary Care Provider Unavailabl e Encounter Details Date Type Department Care Team (Late st Contact Info) Description 03/03/2016 Orders [place] [address] Braydon Carrillo MD [facility] [place]OPAED[place] [address] Social History Tobacco Use Types Packs/Day Years [...] 1:30 PM EST Clinical [place] [address] 08/07/2024 3:30 PM EST [place]uled [place] [address] documented as of this encounter Visit Diagnoses Not on filedocumented in this encounter Care Teams Access Manager Relationship Specialty Start Date End Date None None PCP - General 08/09/10 07/22/18 documented as of this encounter
--- OUTSIDE RECORDS SUMMARY | 2024-08-06 12:10 | XMS_ITS | Encounter Summary ---
Author Organization [facility] Address [facility] [place] [address] Care Team Providers Care Cloud Software Engineer Name Role Phone Ness Diaz APRN Primary Care Provider [phone] Reason for Visit * Reason Comments Advice Only facial fractures Encounter Details Date Type Department Care Team (Late st Contact Info) Description 05/07/2020 3:00 PM EDT Office Visit Plastic Surgery at [facility] [place] [address] Krista Melissa MD [facility] [place] [address] Closed fracture of facial bone due to [...] 3:00 PM EDT Plastic Surgery Consultation Note Luna RuthD PCP: Ness Diaz APRN MEDICAL ASSISTANT DERMATOLOGY: No primary care provider on file. CC: Facial trauma s/p fall 04/29 HPI: Jimenez Marin is a 65 y.o. 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 PMH: COPD, HTN, Bipolar, CAD, PR PSH: splenic embolization for splenic laceration Social [...] file Gets together: Not on file Attends christian service: Not on file Active member of [...] 100 mg by mouth nightly. ??? multivitamin Nlio-Xz-TZ-Min (THERAPEUTIC-M) 27-0.4 mg Tablet Take 1 tablet [...] y.o. male with COPD, HTN, CAD s/p PR w/ 2 stents/on ASA, and Bipolar who [...] Plan: 1. Non-operative management. Follow up with [facility] or [facility] in 6 weeks for follow up evaluation or sooner PRN. 2. Scar management/sun precautions. Krista Melissa MD documented in this encounter Plan of Treatment Upcoming Encounters Date Type Department Care Team (Late st Contact Info) Description 08/07/2024 1:30 PM EST Clinical [place] [address] 08/07/2024 3:30 PM EST Scheduled [place] [address] documented as of this encounter Visit Diagnoses Diagnosis Closed fracture of facial bone due to fall, initial encounter documented in this encounter Care Teams Cloud Software Engineer Relationship Specialty Start Date End Date Ness Diaz, DARIANA [address] [place] [address] PCP - General Family Medicine 05/07/20 05/08/24 documented as of this encounter
--- OUTSIDE RECORDS SUMMARY | 2024-08-06 12:10 | XMS_ITS | Encounter Summary ---
Author Organization [facility] [place] [address] Care Team Providers Care House Builder Name Role Phone Tammy Farley MD Primary Care Provider [phone] Encounter Details Date Type Department Care Team (Late st Contact Info) Description 04/30/2020 Telephone [place] [address] Shakira Horta Social History Tobacco Use Types [...] 1:30 PM EST Clinical [place] [address] 08/07/2024 3:30 PM EST Scheduled View [place] [address] documented as of this encounter Visit Diagnoses Not on filedocumented in this encounter Care Teams House Builder Relationship Specialty Start Date End Date Tammy Farley MD [address] [place] [address] PCP - General Family Medicine 07/23/18 05/06/20 documented as of this encounter
--- OUTSIDE RECORDS SUMMARY | 2024-08-06 12:10 | XMS_ITS | Encounter Summary ---
Author Organization [facility] Address [facility] [place] [address] Care Team Providers Care Plastic Fixture Builder Name Role Phone None Primary Care Provider Unavailabl e Reason for Referral * Consultation (Routine) - Closed Specialty Diagnoses / Procedures Referred By Contac t Referred To Contact Orthopaedics Diagnoses Chronic right shoulder pain Chronic right shoulder pain Alpesh Orona MD [facility] [place] [address] [facility] Orthopaedics [address] [place] [phone] Referral ID Status Reason Start Date Expiration Date V isits Requested Visits Authorized [id number] Closed Consult, Test & Treat 02/24/2016 02/23/2017 1 1 Reason for Visit * Reason Comments Neck Pain right shoulder arm p ain Encounter Details Date Type Department Care Team (Late st Contact Info) Description 02/24/2016 11:20 AM EDT Office [place] [address] Alpesh Orona MD [facility] [place] [address] Chronic right shoulder pain Social History Tobacco [...] 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 He denies constitutional symptoms or changes in [...] 1:30 PM EST Clinical Support Urology at [place] [phone] 08/07/2024 3:30 PM EST Scheduled [place] [address] Scheduled Referrals Name Type Priority Associated Diagnoses Order Schedule Referral to Orthopaedics Outpatient Referral Routine Chronic right shoulder pain Ordered: 02/24/2016 documented as of this encounter Visit Diagnoses Diagnosis Chronic right shoulder pain Pain in joint, shoulder region documented in this encounter Care Teams Plastic Fixture Builder Relationship Specialty Start Date End Date None None PCP - General 08/09/10 07/22/18 documented as of this encounter
--- OUTSIDE RECORDS SUMMARY | 2024-08-06 12:10 | XMS_ITS | Encounter Summary ---
Author Organization [facility] Address [facility] [place] [address] Care Team Providers Care Rag Boiler Name Role Phone None Primary Care Provider Unavailabl e Encounter Details Date Type Department Care Team (Latest Contact Info) Description 06/14/2018 12:05 AM EDT - 06/14/2018 5:52 PM EDT Hospital Encounter Radiology Library [place] [address] Jose A Sargent MD [facility] [place] [address] Discharge Disposition: Home Social History Tobacco Use [...] by mouth Daily @ 0600. 01/23/2014 multivitamin Esgp-Jg-MA-Min (THERAPEUTIC-M) 27-0.4 mg Tablet Take 1 tablet [...] 1:30 PM EST Clinical [place] [address] 08/07/2024 3:30 PM EST Scheduled [place] [address] documented as of this encounter Procedures Procedure Name Priority Date/Time Associated Diagnosis Comments FILM LIBRARY STORAGE ONLY CT CHEST ABDOMEN PELVIS Routine 06/14/2018 12:05 AM EDT documented in this encounter Results * Film Library- Storage Only CT Chest Abdomen Pelvis (06/14/2018 12:05 AM EDT) Narrative [facility][NOTE 3] - 06/14/2018 4:15 PM EDT This exam is for storage only and is auto-finalizing. Jose A Sargent MD [facility] FILM LIBRARY ORD ERABLES [place], [place] documented in this encounter Visit Diagnoses Not on filedocumented in this encounter Care Teams Rag Boiler Relationship Specialty Start Date End Date None None PCP - General 08/09/10 07/22/18 documented as of this encounter
--- OUTSIDE RECORDS SUMMARY | 2024-08-06 12:10 | XMS_ITS | Referral Summary ---
Author Organization [facility] Address [address] [place] [address] Care Team Providers Care Technical Inspector Name Role Phone Unavailable Primary Care Provider [...] bipolar GERD (gastroesophageal reflux disease) 5 Seizures ([facility]) 02/23/2015 NSTEMI (non-ST elevated myocardial infarction) ( [facility]) 01/20/2014 ETOH abuse 01/20/2014 NSTEMI (non-ST elevated myocardial infarction) ( [facility]) 01/02/2014 Chronic right shoulder pain 07/21/2012 [...] Index 16.97 03/12/2015 1043 EDT Functional Status * Are you deaf or do you have serious difficulty hearing? Answer Date of Assessment Author No 03/12/2015 10:54 Etelvina Gonzalez RN * Are you blind or do you have serious difficulty seeing, even when wearing glasses? Answer Date of Assessment Author No 03/12/2015 10:54 Etelvina Gonzalez RN * Do you have serious difficulty walking or climbing stairs? (5 years old or older) Answer Date of Assessment Author Yes 03/12/2015 10:54 Etelvina Gonzalez RN * Do you have difficulty dressing or bathing? (5 years old or older) Answer Date of Assessment Author No 03/12/2015 10:54 Etelvina Gonzalez RN * Because of a physical, mental, or emotional condition, do you have difficulty doing errands alone such as visiting a doctor's office or shopping? (15 years old or older) Answer Date of Assessment Author Yes 03/12/2015 10:54 Etelvina Gonzalez RN Mental Status * Because of a physical, mental, or emotional condition, do you have serious difficulty concentrating, remembering, or making decisions? (5 years old or older) Answer Entry Date Author Yes 03/12/2015 10:54 Etelvina Gonzalez RN Plan of Treatment Not on file Procedures [...] urine. Barbiturate Screen, Urine Negative screen. [facility] Comment: Confirmation testing available upon request. Suitable for medical purposes only. Will not detect all drugs within class. Cutoff = 300 ng/ml Specimen type is urine. Benzodiazepine Screen, Urine Presumptive positive, interpret with caution. [facility] [...] URINALYSIS ORDERABLES Final Re sult [facility] [address] [place] [address] * LIPID PROFILE (INCLUDES CHOLESTEROL, TRIGLYCERIDES, HDL, LDL) (01/19/2014 5:40 EDT) Cholesterol 162 mg/dl [facility] Comment: Desirable:<200 Borderline High:200-239 High:>gr=316 Triglycerides 89 mg/dl [facility] Comment: Normal:<150 Borderline High:150-199 High:200-499 Very High:>qo=975 HDL 102 mg/dl [facility] Comment: Low:<40 Normal:40-60 Desirable: >60 LDL, Calculated 42 mg/dl [facility] Comment: Optimal:<100 Near Optimal:100-129 Borderline High:130-159 High:160-189 Very High:>ap=893 Chol/HDL Ratio 1.6 [facility] Fasting? Unknown [facility] Non HDL Cholesterol 60 mg/dl [facility] Comment: Desirable:<130 Borderline:130-159 High: 160-189 Very High: >bd=618 Blood specimen (specimen) 01/19/2014 5:40 EDT 01/19/2014 5:55 EDT us Sridevi Alvarez MD CHEMISTRY & BLOOD GAS ORDERABL ES Final Result [facility] [address] [place] [address] from Last 3 Months or Most Recently Relevant to Health Maintenance Advance Directives For more information, please contact: [phone] * Full Code (Latest Code Status on [...]
--- OUTSIDE RECORDS SUMMARY | 2024-08-06 12:10 | XMS_ITS | Encounter Summary ---
Author Organization [facility] Address [address] [place] [address] Care Team Providers Care Slip Presser Name Role Phone Unavailable Primary Care Provider Unavailabl e Encounter Details Date Type Department Care Team (Late st Contact Info) Description 01/26/2021 Lab Requisition [facility] Pathology & Laboratory Medicine - [facility] [address] [place] [address] Outr Resulting Lab, Provider Social History Tobacco Use Types Packs/Day Years Used Date Smoking Tobacco: Never Assessed Sex and Gender Information Value Date Recorded Sex Assigned at Not on file Legal Sex Male 18:48 EST Gender Identity Not on file Sexual Orientation Not on file documented as of this encounter Functional Status * Are you deaf or [...] Author Yes 03/12/2015 10:54 Etelvina Gonzalez RN documented as of this encounter Mental Status * Because of a physical, mental, or emotional condition, do you have serious difficulty concentrating, remembering, or making decisions? (5 years old or older) Answer Entry Date Author Yes 03/12/2015 10:54 EDT Etelvina Kennedy RN documented in this encounter Plan of Treatment Not on file documented as of this encounter Procedures Procedure Name Priority Date/Time Associated Diagnosis Comments LYME AB Routine 01/25/2021 10:45 EDT documented in this encounter Results * LYME AB (01/25/2021 10:45 EDT) Lyme Ab Negative Negative 01/27/2021 10:48 EDT [facility] Comment:New 3rd generation a ssay in use 02/25/2020 Blood VENOUS BLOOD / Unknown 01/25/2021 10:45 EDT 01/26/2021 15:54 EDT us Provider Outr Resulting Lab IMMUNOLOGY AND SEROL OGY ORDERABLES Final Result [facility] [address] [place] [address] documented in this encounter Visit Diagnoses Not on filedocumented in this encounter
--- OUTSIDE RECORDS SUMMARY | 2024-08-06 12:11 | XMS_ITS | Encounter Summary ---
Author Organization [facility] Address [address] [place] [address] Care Team Providers Care Rougher Merchant Mill Name Role Phone Sai Garg MD Primary Care Provi glynn Encounter Details Date Type Department Care Team (Late st Contact Info) Description 04/19/2015 Historical Results Only [facility] Radiology Results [address] [place], [place] [id number] Ravi Schwartz MD [address] [place] [address] Social History Tobacco Use Types [...] Date of Assessment Author Yes 03/12/2015 10:54 EDT Etelvina Kennedy RN documented as of this encounter Mental [...] CC: ? Transcribed Date/Time: 04/19/2015 (1602) ? Circulation Crew Leader: ? Printed Date/Time: 02/25/2019 (1113) ? PAGE [...] Gamaliel Vitale MD CC: Transcribed Date/Time: 04/19/2015 (1602) Circulation Crew Leader: Printed Date/Time: 02/25/2019 (0183) PAGE 1 Signed Report us Ravi Schwartz MD IMG CT ORDERABLES Final Resul t * XR CHEST 2 VIEWS (04/19/2015 13:10 EDT) Anatomical Region Laterality Modality Other 04/19/2015 13:1 0 EDT Narrative 04/19/2015 13:14 EDT ? EXAM: RADIOLOGY/CHEST (PA ?? LAT) ?EX. D/ (1937) ? CLINICAL INFORMATION: ? HOMELESS ALCOHOIC ? [...] MD ? CC: ? Transcribed Date/Time: 04/19/2015 (4824) ? Circulation Crew Leader: ? Printed Date/Time: 02/25/2019 (9996) ? PAGE 1 ? Signed Report ? [...] Orville Marvin MD CC: Transcribed Date/Time: 04/19/2015 (4089) Circulation Crew Leader: Printed Date/Time: 02/25/2019 (4713) PAGE 1 Signed Report Ravi Schwartz MD IMG DIAGNOSTIC IMAGING ORDERA BLES Final Result documented in this encounter Visit Diagnoses Not on filedocumented in this encounter Care Teams Rougher Merchant Mill Relationship Specialty Start Date End Date Sai Garg MD [address] [place] [phone] PCP - General 03/12/15 11/04/19 documented as of this encounter
--- OUTSIDE RECORDS SUMMARY | 2024-08-06 12:11 | XMS_ITS | Encounter Summary ---
Author Organization [facility] Address [address] [place] [address] Care Team Providers Care Data Control Clerk Name Role Phone Erich Sethi MD Primary Care Provider [phone] [phone] Sai Garg MD Primary Care Provi glynn Encounter Details Date Type Department Care Team (Late st Contact Info) Description 11/21/2014 Historical Results Only [facility] Radiology Results [address] [place] [address] Fredo Moffett MD [address], [place] [phone] Social History Tobacco Use Types Packs/Day Years [...] hearing? Answer Date of Assessment Author No 04/03/2014 4:27 Gregory Lopez RN * Are you blind or do you have serious difficulty seeing, even when wearing glasses? Answer Date of Assessment Author No 04/03/2014 4:27 Gregory Lopez RN * Do you have serious difficulty walking or climbing stairs? (5 years old or older) Answer Date of Assessment Author No 04/03/2014 4:27 Gregory Lopez RN * Do you have difficulty dressing or bathing? (5 years old or older) Answer Date of Assessment Author Yes 04/03/2014 4:27 Gregory Lopez RN * Because of a physical, mental, or emotional condition, do you have difficulty doing errands alone such as visiting a doctor's office or shopping? (15 years old or older) Answer Date of Assessment Author No 04/03/2014 4:27 Gregory Lopez RN documented as of this encounter Mental Status * Because of a physical, mental, or emotional condition, do you have serious difficulty concentrating, remembering, or making decisions? (5 years old or older) Answer Entry Date Author Yes 04/03/2014 4:27 Gregory Lopez RN documented in this encounter Plan of [...] CC: ? Transcribed Date/Time: 11/22/2014 (1823) ? Hazmat Truck Driver: BONY ? Printed Date/Time: 02/18/2019 (7077) ? PAGE 1 ? Signed Report ? [...] Vitale MD CC: Transcribed Date/Time: 11/22/2014 (1823) Hazmat Truck Driver: BONY Printed Date/Time: 02/18/2019 (0656) PAGE 1 Signed Report us Fredo Moffett MD IMG DIAGNOSTIC IMAGING ORDER MEAGAN Final Result documented in this encounter Visit Diagnoses Not on filedocumented in this encounter Care Teams Data Control Clerk Relationship Specialty Start Date End Date Erich Sethi MD [address] [place] [phone] PCP - General 11/12/14 03/11/15 Sai Garg MD [address] [place] [phone] PCP - General 03/12/15 11/04/19 documented as of this encounter
--- OUTSIDE RECORDS SUMMARY | 2024-08-06 12:11 | XMS_ITS | Encounter Summary ---
Author Organization [facility] Address [address] [place] [address] Care Team Providers Care Prisoner Classification Interviewer Name Role Phone Erich Sethi MD Primary Care Provider [phone] Sai Garg MD Primary Care Provi glynn Encounter Details Date Type Department Care Team (Late st Contact Info) Description 01/14/2015 Historical Results Only [facility] Radiology Results [address] [place], [place] [address] Sai Garg MD [address] [place] [phone] Social History Tobacco Use Types Packs/Day [...] CC: ? Transcribed Date/Time: 01/14/2015 (1133) ? Appliance Fixer: JENNY ? Printed Date/Time: 02/18/2019 (1035) ? [...] finding requiringurgent additional evaluation. Dictated By: DOMINIC TAYOLR MD Signed By: DOMINIC TAYLOR MD 01/14/2015 Authenticated By: DOMINIC TAYLOR MD 01/14/2015 Reported By: Dominic Taylor MD CC: Transcribed Date/Time: 01/14/2015 (1133) Appliance Fixer: JENNY Printed Date/Time: 02/18/2019 (1420) PAGE 2 Signed Report us Sai Hernández MD IMG CT ORDERABLES F inal Result documented in this encounter Visit Diagnoses Not on filedocumented in this encounter Care Teams Prisoner Classification Interviewer Relationship Specialty Start Date End Date Erich Sethi MD [address] [place] [phone] PCP - General 11/12/14 03/11/15 Sai Garg MD [address] [place] [phone] PCP - General 03/12/15 11/04/19 documented as of this encounter
--- OUTSIDE RECORDS SUMMARY | 2024-08-06 12:11 | XMS_ITS | Encounter Summary ---
Author Organization [facility] Address [address] [place] [address] Care Team Providers Care Hide Mill Worker Name Role Phone Sai Garg MD Primary Care Provi glynn Encounter Details Date Type Department Care Team (Late st Contact Info) Description 05/20/2015 Historical Results Only [facility] Radiology Results [address] [place] [address] Farnaz Browning, HEBER ENP [address] [place] [phone] Social History Tobacco Use [...] Date of Assessment Author Yes 03/12/2015 10:54 NIXONT Etelvina Kennedy RN documented as of this [...] CC: ? Transcribed Date/Time: 05/20/2015 (2010) ? Sales And Marketing Administrator: .MICHELL ? Printed Date/Time: 02/25/2019 (1113) ? PAGE 1 ? Signed Report ? Procedure Note Iman Grigsby - 07/22/2019 EXAM: RADIOLOGY/WRIST-LEFT- 3 + VIEWS EX. D/ (1955) CLINICAL INFORMATION: PAIN EXAM: XR Left Wrist [...] Grigsby MD CC: Transcribed Date/Time: 05/20/2015 (2010) Sales And Marketing Administrator: Printed Date/Time: 02/25/2019 (8689) PAGE 1 Signed Report us Farnaz Browning SHEET CATCHER ENP IMG DIAGNOSTIC IMAGING ORD ERABLES Final Result documented in this encounter Visit Diagnoses Not on filedocumented in this encounter Care Teams Hide Mill Worker Relationship Specialty Start Date End Date Sai Garg MD [address] [place] [phone] PCP - General 03/12/15 11/04/19 documented as of this encounter
--- OUTSIDE RECORDS SUMMARY | 2024-08-06 12:11 | XMS_ITS | Encounter Summary ---
Author Organization [facility] Address [address] [place] [address] Care Team Providers Care Carbon Cutter Name Role Phone Erich Sethi MD Primary Care Provider +1 [phone] Sai Garg MD Primary Care Provi glynn Encounter Details Date Type Department Care Team (Late st Contact Info) Description 11/28/2014 Historical Results Only [facility] Radiology Results [address] [place], [place] [id number] Bhavesh Chi MD [address] [place] [address] Social History Tobacco Use Types [...] Date of Assessment Author Yes 04/03/2014 4:27 EDT Gregory Leroy RN * Because of a physical, mental, [...] Answer Entry Date Author Yes 04/03/2014 4:27 EDT Gregory Leroy RN documented in this encounter Plan of [...] CC: ? Transcribed Date/Time: 11/28/2014 (1226) ? Water Attendant: ? Printed Date/Time: 02/18/2019 (8001) ? PAGE 1 ? Signed Report ? [...] Juliocesar Keller MD CC: Transcribed Date/Time: 11/28/2014 (9976) Water Attendant: Printed Date/Time: 02/18/2019 (8817) PAGE 1 Signed Report Bhaevsh Chi MD IMG DIAGNOSTIC IMAGING O RDERABLES Final Result documented in this encounter Visit Diagnoses Not on filedocumented in this encounter Care Teams Carbon Cutter Relationship Specialty Start Date End Date Erich Sethi MD [address] [place] [phone] PCP - General 11/12/14 03/11/15 Sai Garg MD [address] [place] [phone] PCP - General 03/12/15 11/04/19 documented as of this encounter
--- OUTSIDE RECORDS SUMMARY | 2024-08-06 12:11 | XMS_ITS | Encounter Summary ---
Author Organization [facility] Address [address] [place] [address] Care Team Providers Care Pyridine Recovery Operator Name Role Phone Sai Garg MD Primary Care Provi glynn Reason for Referral * Follow Up (Routine) - Closed Specialty Diagnoses / Procedures Referred By Christin connelly Referred To Contact Diagnoses Chest pain Yanely Beckman MD Phone: tel: fax: Referral ID Status Reason Start Date Expiration Date V isits Requested Visits Authorized [id number] Closed Continuity of Care 03/12/2015 1 1 Question Answer Reason for Request: f/u 2 weeks Encounter Details Date Type Department Care Team (Late st Contact Info) Description 03/12/2015 10:23 EDT - 03/12/2015 14:59 EDT Hospital Encounter [facility] Cardiac/Telemetry Unit [address] [place] [address] Ravi Costello MD [address] [place] [phone] Germain Ayala MD [address] [place] [phone] Chest pain (Primary Dx); Abnormal cardiovascular stress [...] EDT documented in this encounter Functional Status * Are you [...] Yes 03/12/2015 10:54 Etelvina Gonzalez RN documented in this encounter Discharge Summaries * Germain Ayala [...] this encounter Medications at Time of Discharge acetaminophen (TYLENOL) 325 mg tablet Take 2 [...] by mouth daily 60 Tab 1 03/12/2015 mometasone-formot asher (DULERA) 100-5 mcg/actuation Inhale 2 Puffs as [...] of this encounter Ordered Prescriptions Prescription Sig Dispense Quantity Refills Last Filled Start Date End Date folic acid (FOLVITE) 1 mg tablet Take [...] disorder, and current ethanol abuse(~6beers/daily) presents from [facility] due to elevated troponin and atypical chest [...] was given Aspirin 81mg and transferred to [facility]. Currently he is experiencing 6/10 chest pain; he is irritable and annoyed that he hasn't gotten anything to eat or drink. . Denies recent illness. No lightheadedness/fevers/chills Relevant prior Cardiac Studies: [facility] 01/2014: Diagnostic Cardiac Study Results Left main: Normal. LAD: Prior intervention: stent in the proximal LAD. The stented segment is patent Left circumflex: Normal. 2nd obtuse marginal: Ostial lesion: There is a 55% stenosis. This lesion is unchanged from a prior study. Right coronary: Normal. Stress test at [facility] on November 2014: moderate size, partially reversible [...] WBC/Hgb/Hct/Plts: 8.75/12.0/36.6/123 (03/12 110) PT/INR/PTT: 9.8/0.9/-- (03/12 1105) Recent Labs 03/12/151104 TROPONINI <0.034 A/P: 59 [...] discussed with Dr. Kash Beckman MD PGY-2, #[id number] Attending Attestation: I have personally seen and examined Jimenez Barkley, discussed the patient's management with the team, and agree with the findings and plan as outlined above by Dr. Beckman. Germain Ayala MD documented in this encounter Miscellaneous Notes * Plan of Care - Etelvina Kennedy RN - 03/12/2015 1319 EDT Problem: PAIN Goal: Patient???s Pain And Discomfort Are Adequately Managed D: Patient arrived to [place] [address] for CP. Vital signs noted, and tele [...] (03/16/2015 11:45 EDT) 03/16/2015 11:4 5 EDT us Scan 2 Professor Of French PROCEDURE/MINOR SURGICAL OR DERABLES Final Result * ECG REPORT - SCANNED (03/15/2015 14:46 EDT) 03/15/2015 14:4 6 EDT us Scan 2 Professor Of French PROCEDURE/MINOR SURGICAL OR DERABLES Final Result * INPATIENT ADD-ON (03/12/2015 12:10 EDT) Tests to be added AST, ALT, ALK PHOS, TOTAL BILI 03/12/2015 12:10 EDT [facility] Number for problems [id number] 03/12/2015 12:21 EDT [facility] Accession number [id number] 03/12/2015 12:21 EDT [facility] TOPOGRAPHY UNKNOWN / Unknown 03/12/2015 12:10 EDT 03/12/2015 12:20 EDT us Yanely Beckman MD HEMATOLOGY & PF4 ORDERABLES Final Result [facility] [address] [place] [address] * GLUCOSE, GLUCOMETER (03/12/2015 11:38 EDT) Glucose, Fingerstick 87 70 - 100 mg/dl 03/12/2015 11:42 EDT [facility] [place] [id number] 03/12/2015 11:42 EDT [facility] Comment:[facility] BLOOD SPECIMEN / Unknown 03/12/2015 11:38 EDT 03/12/2015 11:42 EDT us Germain Ayala MD CHEMISTRY & BLOOD GAS ORDERABLES Final Result Performing Organization Address [facility] Co de Phone Number [facility] [address] [place] [address] * INPATIENT ADD-ON (03/12/2015 11:20 EDT) Tests to be added ELECTROLYT VIVIANACREATIN INE 03/12/2015 11:20 EDT [facility] Number for problems [id number] 03/12/2015 11:30 EDT [facility] Accession number [id number] 03/12/2015 11:30 EDT [facility] TOPOGRAPHY UNKNOWN / Unknown 03/12/2015 11:20 EDT 03/12/2015 11:30 EDT us Roque Hewitt MD HEMATOLOGY & PF4 ORDERABLES Fi nal Result Performing Organization Address [facility] Co de Phone Number [facility] [address] [place] [address] * EKG 12-LEAD (03/12/2015 11:08 EDT) 03/12/2015 11:0 8 EDT Narrative [facility] - 03/13/2015 15:22 EDT ? [facility] ? Test Date: ?2015-03-12 Pat Name: ? JIMENEZ BARKLEY ? Department: ?? Gabriel 5 ? Room: ? MW516 Gender: ? M ?Heel Seam Rubber: ?? [id number] : ?1955 ? Requested By: ANN GUERRA Order Number: [id number] ? Reading MD: ?? SANDRA BALLESTEROS MD ? Measurements Intervals ?[place] ? Rate: ? 58 ? P: ?66 ME: ? 156 ?QRS: ?71 QRSD: ? 92 [...] Note Sandra Ballesteros MD - 03/13/2015 [facility] Test Date: 2015-03-12 Pat Name: JIMENEZ BARKLEY Department: [place] [address] Room: [facility] Gender: M Heel Seam Rubber: [id number] : 1955 Requested By: ANN GUERRA Order Number: [id number] Reading MD: SANDRA BALLESTEROS MD Measurements Intervals [place] Rate: 58 P: 66 ME: 156 QRS: 71 QRSD: 92 T: 79 [...] On 03-13-15 15:22:17 EDT by SANDRA MORGAN. us Yanely Beckman MD CARDIAC ECG ORDERABLES Final Result [facility] * BILIRUBIN, TOTAL (03/12/2015 11:05 EDT) Bilirubin, Total 0.7 <1.4 mg/dl 03/12/2015 13:19 EDT [facility] BLOOD SPECIMEN / Unknown 03/12/2015 11:05 EDT 03/12/2015 11:19 EDT us Yanely Beckman MD CHEMISTRY & BLOOD GAS ORDERA BLES Final Result Performing Organization Address City/[facility]/ZIP Co de Phone Number [facility] [address] [place] [address] * (ABNORMAL) AST (03/12/2015 11:05 EDT) AST 53(H) 15 - 46 U/L 03/12/2015 13:19 EDT [facility] BLOOD SPECIMEN / Unknown 03/12/2015 11:05 EDT 03/12/2015 11:19 EDT us Yanely Beckman MD CHEMISTRY & BLOOD GAS ORDERA BLES Final Result Performing Organization Address [facility] Co de Phone Number [facility] [address] [place] [address] * ALT (03/12/2015 11:05 EDT) ALT 61 21 - 72 U/L 03/12/2015 13:19 EDT [facility] BLOOD SPECIMEN / Unknown 03/12/2015 11:05 EDT 03/12/2015 11:19 EDT us Yanely Beckman MD CHEMISTRY & BLOOD GAS ORDERA BLES Final Result Performing Organization Address [facility]/ZIP Co de Phone Number [facility] [address] [place] [address] * ALKALINE PHOSPHATASE (03/12/2015 11:05 EDT) Total Alkaline Phosphatase 57 38 - 126 U/L 03/12/2015 13:19 EDT [facility] BLOOD SPECIMEN / Unknown 03/12/2015 11:05 EDT 03/12/2015 11:19 EDT us Yanely Beckman MD CHEMISTRY & BLOOD GAS ORDERA BLES Final Result [facility] [address] [place] [address] * ELECTROLYTES (03/12/2015 11:05 EDT) Sodium 141 136 - 145 mEq/L 03/12/2015 13:19 EDT [facility] Potassium 4.0 3.5 - 5.0 mEq/L 03/12/2015 13:09 EDT [facility] Chloride 104 96 - 110 mEq/L 03/12/2015 13:19 EDT [facility] CO2 30 24 - 32 mEq/L 03/12/2015 13:19 EDT [facility] BLOOD SPECIMEN / Unknown 03/12/2015 11:05 EDT 03/12/2015 11:19 EDT Yanely Beckman MD CHEMISTRY & BLOOD GAS ORDERA BLES Final Result Performing Organization Address [facility]/ZIP Co de Phone Number [facility] [address] [place] [address] * (ABNORMAL) CREATININE (03/12/2015 11:05 EDT) Creatinine 0.64(L) 0.66 - 1.25 mg/dl 03/12/2015 13:19 EDT [facility] GFR, Calculated >60 >60 ml/min/1.7 3m2 03/12/2015 13:19 EDT [facility] BLOOD SPECIMEN / Unknown 03/12/2015 11:05 EDT 03/12/2015 11:19 EDT Yanely Beckman MD CHEMISTRY & BLOOD GAS ORDERA BLES Final Result [facility] [address] [place] [address] * TROPONIN I (03/12/2015 11:05 EDT) Troponin I (ng/mL) <0.034 <0.034 ng/ml 03/12/2015 12:01 [facility] Blood specimen (specimen) BLOOD SPECIMEN / Unknown 03/12/2015 11:05 EDT 03/12/2015 11:19 EDT us Yanely Beckman MD CHEMISTRY & BLOOD GAS ORDERA BLES Final Result [facility] [address] [place] [address] * (ABNORMAL) HEMAGRAM (03/12/2015 11:05 EDT) WBC 8.75 4.0 - 10.4 K/cmm 03/12/2015 11:39 [facility] RBC 3.80(L) 4.36 - 5.78 M/cmm 03/12/2015 11:39 [facility] Hemoglobin 12.0(L) 13.8 - 17.3 gm/dl 03/12/2015 11:39 [facility] HCT 36.6(L) 39.5 - 50.2 % 03/12/2015 11:39 [facility] MCV 96(H) 81 - 95 fl 03/12/2015 11:39 [facility] MCH 31.7 27.6 - 33.0 pg 03/12/2015 11:39 [facility] MCHC 32.9 32.8 - 36.4 gm/dl 03/12/2015 11:39 [facility] RDW-CV 14.1 11.8 - 14.1 % 03/12/2015 11:39 [facility] RDW-SD 46.8(H) 36.5 - 45.9 fl 03/12/2015 11:39 [facility] PLT 123(L) 141 - 320 K/cmm 03/12/2015 11:39 [facility] MPV 7.9 7.5 - 11.2 fl 03/12/2015 11:39 [facility] Blood specimen (specimen) BLOOD SPECIMEN / Unknown 03/12/2015 11:05 EDT 03/12/2015 11:19 EDT us Yanely Beckman MD HEMATOLOGY & PF4 ORDERABLES Final Result [facility] [address] [place] [address] * (ABNORMAL) PROTIME (03/12/2015 11:05 EDT) Pro Time 9.8(L) 10.1 - 13.0 secs 03/12/2015 11:58 EDT [facility] Comment: New prothrombin t radha range effective 02/23/15 I.N.R. 0.9 0.9 - 1.1 Ratio 03/12/2015 11:58 EDT [facility] Comment: Moderate Intensity Coumadin INR = 2.0-3.0 Adjustments in anticoagulant therapy dose should be based upon the INR and NOT the Pro Time. Blood specimen (specimen) BLOOD SPECIMEN / Unknown 03/12/2015 11:05 EDT 03/12/2015 11:19 EDT us Yanely Beckman MD HEMATOLOGY & PF4 ORDERABLES Final Result [facility] [address] [place] [address] documented in this encounter Visit Diagnoses Diagnosis [...] Discontinued, Routine 1326 (Given - Provid er: RT Basil) thiamine (VITAMIN B1) tablet 100 mg 100 mg, oral, DAILY, First dose on Sun03/12/15 at 1200, Until Discontinued, Routine 1312 (Given - Provid er: Etelvina Kennedy RN) tiotropium (SPIRIVA) 18 mcg inhalation capsule 18 mcg (CANCELED) 18 mcg, inhalation, DAILY, First dose on Sun03/12/15 at 1200, Until Discontinued, Routine 1326 (Given - Provid er: RT Basil) PRN Medication Order 03/10/2015 03/11/2015 03/12/2015 morphine [...] First Orde red Date MISCELLANEOUS DISCHARGE INSTRUCTIONS 02/16 Consult to Social Work Count Last Ordered Date First Ordered Date CONSULT SOCIAL WORK 1 03/12/2015 documented in this encounter Care Teams Pyridine Recovery Operator Relationship Specialty Start Date End Date Sai Garg MD [address] [place] [phone] PCP - General 03/12/15 11/04/19 documented as of this encounter
--- OUTSIDE RECORDS SUMMARY | 2024-08-06 12:11 | XMS_ITS | Encounter Summary ---
Author Organization [facility] Address [address] [place] [address] Care Team Providers Care Urology Physician Name Role Phone Erich Sethi MD Primary Care Provider [phone] Sai Garg MD Primary Care Provi glynn Encounter Details Date Type Department Care Team (Late st Contact Info) Description 11/30/2014 Historical Results Only [facility] Radiology Results [address] [place], [place] [id number] Kamran Renee MD [address] [place] [phone] Social History Tobacco Use Types Packs/Day Years [...] Date of Assessment Author Yes 04/03/2014 4:27 EDGregory Marroquin RN * Because of a physical, mental, [...] margin pain yet had NSTEMI ? *[facility]* ? *[facility]* ? [address] ? [place] [address] ? Myocardial Perfusion Imaging - SPECT ? [...] 1.8, PATIENT REFUSED TO TRANSFER TO ? [facility]. TROPS FOR THIS ADMISSION ARE 0.076 X 3. ECG UNREMARKABLE. EC HO ? 11/30/14- LVEF 45-50%. PATIENT CONTINUES TO SMOKE AND DRINK. ? 03/2014- DE WITH STENTS X 2. ? PMH: ?? [...] heart rate and ? blood pressure was 40366uq Hg/min. Stress ECG: RESTING LEXISCAN STUDY ? 10/10 CHEST PAIN PRIOR TO LEXISCAN 9/10 [...] procedure. This study was interpreted by [facility] [place] [facility] ? [facility]. ? Study status: Routine. Consent: [...] of this study was interpreted by Nuclear ? Larry Car Operator Carrol Peraza MD. ? - The Stress ECG portion of this study was interpreted by Carrol ? MD Stu. ? Electronically signed by ? Carrol Peraza ? 11/30/2014 14:27 ?Reported By: CARROL PERAZA M.D. ? CC: ? Transcribed Date/Time: 12/01/2014 (4972) ? Poultry Pinner: JENNY ? Printed Date/Time: 02/18/2019 (103) ? PAGE 3 ? Signed Report ? Procedure Note Carrol Peraza MD - 07/22/2019 EXAM: NUCLEAR MEDICINE/NUCLEAR STRESS [place] EX. D/ (4005) CLINICAL INFORMATION: Musc-sktonya L rib margin pain yet had NSTEMI *[facility]* *[facility]* [address] [place] [address] Myocardial Perfusion Imaging - SPECT Regadenoson Date [...] TROP 1.8, PATIENT REFUSED TO TRANSFER TO [facility]. TROPS FOR THIS ADMISSION ARE 0.076 X 3. ECG UNREMARKABLE. ECHO 11/30/14- LVEF 45-50%. PATIENT CONTINUES TO SMOKE AND DRINK. 03/2014- DE WITH STENTS X 2. PMH: COPD. Risk [...] the peak heart rateand blood pressure was 77227dl Hg/min. Stress ECG: RESTING LEXISCANSTUDY 10/10 CHEST [...] procedure. This study was interpreted by [facility]. Study status: Routine. Consent: The risks, [...] of this study was interpreted by Nuclear Larry Car Operator Carrol Peraza MD. - The Stress ECG portion of this study was interpreted by Carrol Peraza MD. Electronically signed by Carrol Peraza 11/30/2014 14:27 Reported By: CARROL PERAZA M.D. CC: Transcribed Date/Time: 12/01/2014 (5761) Poultry Pinner: JENNY Printed Date/Time: 02/18/2019 (7882) PAGE 3 Signed Report Kamran Renee MD CARDIAC NM ORDERABLES Final Result documented in this encounter Visit Diagnoses Not on filedocumented in this encounter Care Teams Urology Physician Relationship Specialty Start Date End Date Erich Sethi MD [address] [place] [phone] PCP - General 11/12/14 03/11/15 Sai Garg MD [address] [place] [address] [phone] PCP - General 03/12/15 11/04/19 documented as of this encounter
--- OUTSIDE RECORDS SUMMARY | 2024-08-06 12:11 | XMS_ITS | Encounter Summary ---
Author Organization [facility] Address [address] [place] [address] Care Team Providers Care Guardian Ad Litem Name Role Phone Erich Sethi MD Primary Care Provider [phone] Sai Garg MD Primary Care Provi glynn Encounter Details Date Type Department Care Team (Late st Contact Info) Description 01/11/2015 Historical Results Only [facility] Radiology Results [address] [place], [place] [address] Ravi Schwartz MD [address] [place] [address] Social History Tobacco Use Types [...] 2 OR 3 VIEWS EX. D/ (181) ? CLINICAL INFORMATION: ? PUNCHED IN BACK,NOW [...] CC: ? Transcribed Date/Time: 01/11/2015 (0128) ? Diversity Specialist: ? Printed Date/Time: 02/18/2019 (7374) ? PAGE 1 ? Signed Report ? Procedure Note Orville Marvin MD - 07/22/2019 EXAM: RADIOLOGY/LUMBAR SPINE 2 OR 3 VIEWS EX. D/ (1817) CLINICAL INFORMATION: PUNCHED IN BACK,NOW W/ PAIN [...] Orville Marvin MD CC: Transcribed Date/Time: 01/11/2015 (012) Diversity Specialist: Printed Date/Time: 02/18/2019 (7701) PAGE 1 Signed Report Ravi Schwartz MD IMG DIAGNOSTIC IMAGING ORDERA BLES Final Result documented in this encounter Visit Diagnoses Not on filedocumented in this encounter Care Teams Guardian Ad Litem Relationship Specialty Start Date End Date Erich Sethi MD [address] [place] [address] [phone] PCP - General 11/12/14 03/11/15 Sai Garg MD [address] [place] [phone] PCP - General 03/12/15 11/04/19 documented as of this encounter
--- OUTSIDE RECORDS SUMMARY | 2024-08-06 12:11 | XMS_ITS | Encounter Summary ---
Author Organization [facility] Address [address] [place] [address] Care Team Providers Care Offshore Wind Operations Manager Name Role Phone Sai Garg MD Primary Care Provi glynn Encounter Details Date Type Department Care Team (Late st Contact Info) Description 06/01/2015 Historical Results Only [facility] Radiology Results [address] [place], [place] [phone] Greta Gonzalez, [address] [place] [address] Social History Tobacco Use Types [...] Name Priority Date/Time Associated Diagnosis Comments MR FUNCTIONAL W DOCTOR SUPERVISION 06/01/2015 15:07 EDT documented in this encounter Results * FUNCTIONAL W DOCTOR SUPERVISION (06/01/2015 15:07 EDT) Anatomical [...] CC: ? Transcribed Date/Time: 06/01/2015 (1539) ? Cat And Dog Bather: HIS.[email or web address] ? Printed Date/Time: 02/25/2019 (1114) ? PAGE [...] Gamaliel Vitale MD CC: Transcribed Date/Time: 06/01/2015 (1539) Cat And Dog Bather: Printed Date/Time: 02/25/2019 (1175) PAGE 1 Signed Report us Greta Gonzalez DO IMG MRI ORDERABLES Final Re sult documented in this encounter Visit Diagnoses Not on filedocumented in this encounter Care Teams Offshore Wind Operations Manager Relationship Specialty Start Date End Date Sai Garg MD [address] [place] [phone] PCP - General 03/12/15 11/04/19 documented as of this encounter
--- OUTSIDE RECORDS SUMMARY | 2024-08-06 12:11 | XMS_ITS | Encounter Summary ---
Author Organization [facility] Address [address] [place] [address] Care Team Providers Care Backend Tester Name Role Phone Erich Sethi MD Primary Care Provider [phone] Encounter Details Date Type Department Care Team (Latest Contact Info) Description 11/21/2014 12:45 EST - 11/21/2014 23:59 EST Hospital Encounter [facility] [address] [place] [address] Unknown, Provider, MD Discharge Disposition: Home or Self Care [...] Gregory Lopez RN documented in this encounter Medications at Time of Discharge acetaminophen (TYLENOL) 325 mg tablet Take 2 Tabs by mouth every 6 hours as needed for Pain. 04/03/2014 amitriptyline (ELAVIL) 50 mg tablet Take 50 mg by mouth at bedtime. aspirin chewable 81 mg tablet Take 1 Tab by mouth daily. 01/03/2014 citalopram (CELEXA) 20 mg tablet Take 60 mg by mouth daily. mometasone-formo terol (DULERA) 100-5 mcg/actuation Inhale 2 Puffs as [...] mouth daily. 30 Tab 0 01/23/2014 03/12/2015 HYDROcodone-acet aminophen (NORCO) 2.5-325 mg Take 1 Tab by mouth every 4 hours. 3 Tab 0 01/23/2014 03/12/2015 HYDROcodone-acet aminophen (NORCO) 2.5-325 mg Take 1 Tab by [...] Code Departure Means Destination Home or Self Mcfp documented in this encounter Plan of Treatment [...] on filedocumented in this encounter Care Teams Backend Tester Relationship Specialty Start Date End Date Erich Sethi MD [address] [place] [address] [phone] PCP - General 11/12/14 03/11/15 documented as of this encounter
--- OUTSIDE RECORDS SUMMARY | 2024-08-06 12:11 | XMS_ITS | Encounter Summary ---
Author Organization [facility] Address [address] [place] [address] Care Team Providers Care Finisher Plate Name Role Phone Sai Garg MD Primary Care Provi glynn Reason for Referral * Follow Up (Routine) - Closed Specialty Diagnoses / Procedures Referred By Christin connelly Referred To Contact Diagnoses Chest pain Nolan Carmona MD Phone: tel: fax: Referral ID Status Reason Start Date Expiration Date V isits Requested Visits Authorized [id number] Closed Continuity of Care 04/03/2014 1 1 Question Answer Reason for Request: Pt has Chest pain that is muscloskeletal in origin (no objective evidence of AL) and would benefit from following w PCP following d/c from [facility]. Comments Pt has follow up appointment w Dr. Jose E Mason on Sunday, April 13 [facility] [address], [place] [address] Encounter Details Date Type Department Care Team (Late st Contact Info) Description 04/03/2014 2:36 EDT - 04/03/2014 15:33 EDT Hospital Encounter [facility] Cardiac/Telemetry Unit [address], [place] [id number] Ravi Costello MD [address] [phone] Golden Quintero MD [address] [phone] Chest pain (Primary Dx); ETOH abuse; CAD [...] Gregory Lopez RN documented in this encounter Discharge Summaries * Ravi Costello [...] HLD, mood disorder who was [facility] by[facility] due to complaint of Chest Pain which radiated to left arm and leg and was worst w exertion and position change. On arrival, he was found to have a mildly elevated Troponin of 0.2, and EtOH level of greater than 400. He was given ASA, Ticagrelor, and heparin and transferred to [facility] for further evaluation. At [facility] troponin was negative and on EKG non-specific [...] w medication and anti-coagulation regimen, preforming a LHC would not benefit the pt and would [...] admission Procedure Component Value Units Date/Time TSH [[id number]] Collected: 04/03/14309 Lab Status: In process Updated: [...] Jose E Mason on Sunday, April 13 [facility] [address] [place] [id number] Follow-Up Labs and Tests: Attestation statement::I have [...] Refills Last Filled Start Date End Date acetaminophen (TYLENOL) 325 mg tablet Take 2 Tabs by mouth every 6 hours as needed for Pain. 04/03/2014 metoprolol (LOPRESSOR) 25 mg tablet Take 1 Tab by mouth 2 times daily. 180 Tab 11 04/03/2014 03/12/2015 documented in this encounter Discharge Disposition Disposition Code Departure Means Destination Home or Self Care documented in this encounter Progress Notes * Lisbeth Lopez, RN - 04/03/2014 9006 EDT Discharge Note: D/C home on 04/03/2014 without home health services. Taxi voucher provided. Luna Lopez RN #[phone] * Lisbeth Lopez, NING - 04/03/2014 1125 EDT Initial Case Management/Social [...] Primary Care Provider: Sai Garg MD Pharmacy: [facility] LIVING ARRANGEMENTS AND ACCESSIBILITY ISSUES: Other: Are there any home access issues? What in home social supports are available to the patient? none ADVANCED DIRECTIVES, POA &/or COLST IN PLACE: No CULTURAL, CHRISTIAN and/or LANGUAGE factors affecting health care/discharge planning:: N/A FUNCTIONAL & PSYCHOSOCIAL INFORMATION: Patient is independent. We discussed his alcohol dependence. Patient again declining offers of rehab. States he needs to find housing before winter. He just moved to [place] one week ago and hasn't been in contact with the local social worker clinical office MEDICAL INSURANCE IN PLACE: Yes Medicaid [...] Notified him, plan will be transport to [facility] to fruit or nut picker meds, then he can walk to [...] SpO2 O2 Flow Rate (L/min) O2 Device 04/03/147 - - 84 BPM 18 - 100 % 1.5 l/min Nasal cannula 04/03/148 141/84 mmHg 87 87 BPM 18 36.5 [...] Vitals for the past 8 hrs: Weight 04/03/14257 57.561 kg (126 lb 14.4 oz) Glucose Readings (last 8 hours): No results found for this basename: GLUCOSEFINGE, in the last 72 hours I&O: No intake or output data in the 24 hours ending 04/03/14 0725 Physical Exam: General appearance: Pt appears uncomfortable, [...] Review: Lab Review: CBC: Recent Labs 04/03/14 0310 WBC 7.33 HGB 12.9* HCT 37.7* MCV 94 PLT 84* BMP: Recent Labs 04/03/14 0310 CREATININE 0.66 BUN 9* NA 143 K 4.0 CL 103 CO2 28 MG 1.8 Coags: Recent Labs 04/03/14 0310 PROTIME 9.6 INR 0.9 PTT 97* LFTs: Recent Labs 04/03/14 0310 ALT 292* AST 274* ALKPHOS 84 FSBS: No results found for this basename: GLUCOSEFINGE, in the last 72 hours Cardiac Biomarkers: Recent Labs 04/03/14 0310 CK 133 MB 1.90 TROPONINI <0.034 Hemoglobin A1C: Lab Results Component Value Date HGBA1C 6.0 01/18/2014 ECHO: Pending EKG: [facility] ekg with no st changes (8265) 0900 - No changes from previous Assessment: [...] clinical improvement. Nolan Carmona MD PGY-1 Pager #[phone] documented in this encounter H&P Notes * [...] ticagrelor, and heparin gtt and transferred to [facility]. He says he has continued pain and [...] warm, atraumatic, no cyanosis or edema ECG: FA ekg with no st changes Data Review: [...] clinical course Rafa Bright MD Pager # [phone] 04/03/2014 3:17 Fellow addendum - 58 y/o [...] Echo. D/W DR Quintero. Kiley Moran MD doctor of chiropractic - PGY 4 Pager - [phone]. CP syndrome is clearly musculoskeletal. He does not have evidence of AL by troponin evaluation. He has demonstrated noncompliance [...] wheelchair. Pt will transport by taxi to [facility] to fruit or nut picker meds, and then he will walk home. MD Carmona aware. Eleonora Song RN 04/03/2014 * Plan of Care - Navarro Leroy RN - 04/03/2014 0718 EDT Problem: HOSPITAL ORIENTATION/SAFETY Goal: Oriented To Hospital Environment Outcome: Completed Date Met: 04/03/14 D: Patient arrived to [place] [address]. Vital signs noted, and tele applied. Patient in SR with heart rate in 80s. Patient with 8/10 left sided chest pain under his ribs radiating down his left arm and left leg. Patient with no SOB. A; MD Sandy aware and at bedside. Assessment [...] SCANNED (04/10/2014 6:51 EDT) 04/10/2014 6:51 EDT us Scan 2 Educational Coordinator PROCEDURE/MINOR SURGICAL OR DERABLES Final Result * ECG REPORT - SCANNED (04/07/2014 17:40 EDT) 04/07/2014 17:4 0 EDT us Scan 2 Educational Coordinator PROCEDURE/MINOR SURGICAL OR DERABLES Final Result * ECG REPORT - SCANNED (04/07/2014 11:58 EDT) 04/07/2014 11:5 8 EDT us Scan 2 Educational Coordinator PROCEDURE/MINOR SURGICAL OR DERABLES Final Result * ECHOCARDIOGRAM LIMITED (04/03/2014 11:29 EDT) Anatomical Region Laterality Modality Other 04/03/2014 11:2 9 EDT Narrative 04/03/2014 12:04 EDT *Interpreting Group:* *[facility]* [address] [place] [address] *STUDY CONCLUSIONS* Summary: 1. Left ventricle: The [...] ?Golden Quintero MD ATTENDING ?Ravi Costello MD TEAMCENTER CONSULTANT ??Chichi Manning REFERRING ?Sai Garg PERFORMING ?? [facility], ORDERING ? Almas-Abimael Mata *PROCEDURE DATA* Procedure information: ??This study was interpreted by [facility] at [facility]. ??Study status: ??Routine. Transthoracic echocardiography. ??M-mode, limited [...] procedure well. *INDICATIONS AND HISTORY* Indications: ?? AL - nontransmural - acute 410.71. History: ?PMH: [...] 04/03/2014 12:04 Procedure Note 04/03/2014 *Interpreting Group:* *[facility]* [address] [place] [address] *STUDY CONCLUSIONS* Summary: 1. Left ventricle: The [...] Golden Quintero MD ATTENDING Ravi Costello MD TEAMCENTER CONSULTANT Chichi Manning Anthony R PERFORMING [facility], ORDERING Abimael Matos *PROCEDURE DATA* Procedure information: This study was interpreted by [facility] at [facility]. Study status: Routine.Transthoracic echocardiography. M-mode, limited 2D, limited spectral Doppler, and color Doppler. A Transthoracic Echocardiogram was performed. The parasternalwindow was low, thus no M-mode measurements were recorded. Scanning was performedfrom the parasternal, apical, and subcostal acoustic windows. Images wereobtained using a Carola IE33 3 cardiac ultrasound machine. Image quality wasadequate. Study completion: The patient tolerated the procedure well. *INDICATIONS AND HISTORY* Indications: AL - nontransmural - acute 410.71. History: PMH: [...] 04/03/2014 12:04 Abimael Matos MD CARDIAC ECHO ORDERABLES F inal Result * DRUG SCREEN 6 (04/03/2014 10:12 EDT) Amphetamine Screen, Urine Negative screen. [facility] Comment: Confirmation testing available upon request. Suitable for medical purposes only. Will not detect all drugs within class. Cutoff = 1000 ng/ml Specimen type is urine. Barbiturate Screen, Urine Negative screen. [facility] Comment: Confirmation testing available upon [...] Scrn, Ur Presumptive positive, interpret with caution. [facility] Comment: Confirmation testing available upon request. Suitable for medical purposes only. Will not detect all drugs within class. Cutoff = 300 ng/ml Assay less sensitive to oxycodone and metabolites. Assay does not detect methadone. Specimen type is urine. Cocaine Metabolites, Ur Negative screen. [facility] Comment: Confirmation testing available upon request. Suitable for medical purposes only. Will not detect all drugs within class. Cutoff = 300 ng/ml Specimen type is urine. Urine specimen (specimen) URINE / Unknown 04/03/2014 10:12 EDT 04/03/2014 10:23 EDT us Rafa Bright MD URINALYSIS ORDERABLES Final Re sult [facility] [address] [place] [address] * EKG 12-LEAD (04/03/2014 8:38 EDT) 04/03/2014 8:38 EDT Narrative [facility] EKG - 04/08/2014 16:55 EDT ?[facility] ? Test Date: ?2014-04-03 Pat Name: ? JIMENEZ BARKLEY ? Department: ?? Nery Mackay ? Room: ? MW530 Gender: ? M ?Airways Operations Specialist: ?? [id number] : ?1955 ? Requested By: NOLAN CARMONA MD Order Number: [id number] ? Reading : ?? ADRIEL HENDERSON MD ? Measurements Intervals ?[place] ? Rate: ? 64 ? P: ?52 SC: ? 148 ?QRS: ?74 QRSD: ? 95 ? T: ?75 QT: ? 428 ? QTc: ?442 ? Interpretive Statements SINUS RHYTHM NONSPECIFIC ST & T-WAVE ABNORMALITY Compared to ECG 04/03/2014 03:13:35 T-wave abnormality now present I reviewed the tracing and agreed or edited the report. Electronically Signed On 04-08-14 16:55:49 EDT by ADRIEL HENDERSON MD. Procedure Note Adriel Henderson MD - 04/08/2014 [facility] Test Date: 2014-04-03 Pat Name: JIMENEZ BARKLEY Department: [place] [address] Room: [facility] Gender: M Airways Operations Specialist: [id number] : 1955 Requested By: NOLAN CARMONA MD Order Number: [id number] Reading MD: ARDIEL HENDERSON MD Measurements Intervals [place] Rate: 64 P: 52 SC: 148 QRS: 74 QRSD: 95 T: 75 QT: 428 QTc: 442 Interpretive Statements SINUS RHYTHM NONSPECIFIC ST & T-WAVE ABNORMALITY Compared to ECG 04/03/2014 03:13:35 T-wave abnormality now present I reviewed the tracing and agreed or edited the report. ElectronicallySigned On 04-08-14 16:55:49 EDT by ADRIEL HENDERSON MD. us Nolan Carmona MD CARDIAC ECG ORDERABLES Final Res ult Performing Organization Address [facility] Co de Phone Number [facility] EKG * (ABNORMAL) PTT (04/03/2014 6:03 EDT) PTT 69(H) 26 - 37 secs [facility] Comment:Therapeutic Heparin range: 65-100 seconds Blood specimen (specimen) 04/03/2014 6:03 EDT 04/03/2014 7:22 EDT us Rafa Bright MD HEMATOLOGY & PF4 ORDERABLES Fi nal Result Performing Organization Address [facility] Co de Phone Number [facility] [address] [place] [address] * INPATIENT ADD-ON (04/03/2014 5:15 EDT) Tests to be added MAGNESIUM [facility] Number for problems Not Given [facility] Accession number [id number] [facility] 04/03/2014 5:15 EDT 04/03/2014 5:15 EDT us Rafa Bright MD HEMATOLOGY & PF4 ORDERABLES Fi nal Result Performing Organization Address City/[facility] Co de Phone Number [facility] [address] [place] [address] * INPATIENT ADD-ON (04/03/2014 3:40 EDT) Tests to be added PLEASE ADD DIFF TO HEMAGRAM [facility] Number for problems Not Given [facility] Accession number Not Given [facility] Comment: (Note) CBCDF ALREADY ORDERED 04/03/2014 3:40 EDT 04/03/2014 3:40 EDT Rafa Bright MD HEMATOLOGY & PF4 ORDERABLES Fi nal Result Performing Organization Address [facility] Co de Phone Number [facility] [address] [place] [address] * INPATIENT ADD-ON (04/03/2014 3:20 EDT) Tests to be added AST, ALT, ALK PHOS, TBILI, TSH [facility] Number for problems Not Given [facility] Accession number [id number] [facility] 04/03/2014 3:20 EDT 04/03/2014 3:24 EDT Rafa Bright MD HEMATOLOGY & PF4 ORDERABLES Fi nal Result Performing Organization Address [facility] Co de Phone Number [facility] [address] [place] [address] * INPATIENT ADD-ON (04/03/2014 3:20 EDT) Tests to be added GLUCOSE, SERUM [facility] Number for problems Not Given [facility] Accession number [id number] [facility] 04/03/2014 3:20 EDT 04/03/2014 3:24 EDT us Rafa Bright MD HEMATOLOGY & PF4 ORDERABLES Fi nal Result Performing Organization Address City/[facility]/ZIP Co de Phone Number [facility] [address] [place] [address] * INPATIENT ADD-ON (04/03/2014 3:20 EDT) Tests to be added HEMOGLOBIN A1C [facility] Number for problems Not Given [facility] Accession number [id number] [facility] 04/03/2014 3:20 EDT 04/03/2014 3:23 EDT us Rafa Bright MD HEMATOLOGY & PF4 ORDERABLES Fi nal Result [facility] [address] [place] [address] * EKG 12-LEAD (04/03/2014 3:13 EDT) 04/03/2014 3:13 EDT Narrative [facility] EKG - 04/06/2014 8:40 EDT ?[facility] ? Test Date: ?2014-04-03 Pat Name: ? JIMENEZ BARKLEY ? Department: ?? Gabriel 5 ? Room: ? MW530 Gender: ? M ?Airways Operations Specialist: ?? [id number] : ?1955 ? Requested By: RAFA BRIGHT MD Order Number: [id number] ? Reading : ?? SHMUEL MEJIA MD ? Measurements Intervals ?[place] ? Rate: ? 77 ? P: ?-40 SC: ? 144 ?QRS: ?73 QRSD: ? 94 [...] Date: 2014-04-03 Pat Name: JIMENEZ BARKLEY Department: [place] [address] Room: [facility] Gender: M Airways Operations Specialist: [id number] : 1955 Requested By: RAFA BRIGHT MD Order Number: [id number] Reading MD: SHMUEL CERVANTES Measurements Intervals [place] Rate: 77 P: -40 SC: 144 QRS: 73 QRSD: 94 T: 76 QT: 400 QTc: 453 Interpretive Statements SINUS RHYTHM Normal ECG. Compared to ECG 01/18/2014 00:50:23 No significant change I reviewed the tracing and agreed or edited the report. ElectronicallySigned On 04-06-14 08:40:11 EDT by SHMUEL MEJIA MD. Rafa Bright MD CARDIAC ECG ORDERABLES Final R esult [facility] EKG * MAGNESIUM (04/03/2014 3:10 EDT) Pathologist [facility] Magnesium 1.8 1.7 - 2.8 mg/dl [facility] 04/03/2014 3:10 EDT 04/03/2014 3:14 EDT Rafa Bright MD CHEMISTRY & BLOOD GAS ORDERABL ES Final Result Performing Organization Address [facility] Co de Phone Number [facility] [address] [place] [address] * (ABNORMAL) DIFFERENTIAL (04/03/2014 3:10 EDT) Pathologist [facility] Neutrophils 57.0 45.5 - 79.7 % [facility] Lymphocytes 19.0 15.0 - 46.8 % [facility] Monocytes 7.0 1.8 - 12.0 % [facility] Eosinophils 17.0(H) 0.6 - 6.9 % [facility] ABS Neutrophils 4.18 2.20 - 8.85 K/cmm [facility] ABS Lymphs 1.39 1.09 - 3.30 K/cmm [facility] ABS Monocytes 0.51 0.1 - 0.8 K/cmm [facility] ABS Eosinophils 1.25(H) 0.03 - 0.61 K/cmm [facility] RBC Morphology 1+ [facility] Comment:Anisocytosis Type of Diff: Manual [facility] 04/03/2014 3:10 EDT 04/03/2014 3:14 EDT us Rafa Bright MD HEMATOLOGY & PF4 ORDERABLES Fi nal Result Performing Organization Address [facility] Co de Phone Number [facility] [address] [place] [address] * (ABNORMAL) HEMAGRAM (04/03/2014 3:10 EDT) WBC 7.33 4.0 - 10.4 K/cmm [facility] RBC 4.02(L) 4.36 - 5.78 M/cmm [facility] Hemoglobin 12.9(L) 13.8 - 17.3 gm/dl [facility] HCT 37.7(L) 39.5 - 50.2 % [facility] MCV 94 81 - 95 fl [facility] MCH 32.0 27.6 - 33.0 pg [facility] MCHC 34.1 32.8 - 36.4 gm/dl [facility] PLT 84(L) 141 - 320 K/cmm [facility] RDW-CV 14.4(H) 11.8 - 14.1 % [facility] 04/03/2014 3:10 EDT 04/03/2014 3:14 EDT us Rafa Bright MD HEMATOLOGY & PF4 ORDERABLES Fi nal Result Performing Organization Address [facility] de Phone Number [facility] [address] [place] [address] * TSH (04/03/2014 3:10 EDT) TSH 3.46 0.35 - 5.00 uIU/ml [facility] 04/03/2014 3:10 EDT 04/03/2014 3:14 EDT us Rafa Bright MD CHEMISTRY & BLOOD GAS ORDERABL ES Final Result Performing Organization Address [facility] Co de Phone Number [facility] [address] [place] [address] * BILIRUBIN, TOTAL (04/03/2014 3:10 EDT) Bilirubin, Total <0.5 <1.4 mg/dl [facility] 04/03/2014 3:10 EDT 04/03/2014 3:14 EDT Rafa Bright MD CHEMISTRY & BLOOD GAS ORDERABL ES Final Result Performing Organization Address [facility] de Phone Number [facility] [address] [place] [address] * (ABNORMAL) GLUCOSE, SERUM (04/03/2014 3:10 EDT) Glucose, Serum 136(H) 70 - 100 mg/dl [facility] 04/03/2014 3:10 EDT 04/03/2014 3:14 EDT us Rafa Bright MD CHEMISTRY & BLOOD GAS ORDERABL ES Final Result Performing Organization Address [facility] Phone Number [facility] [address] [place] [address] * HEMOGLOBIN A1C (04/03/2014 3:10 EDT) Hemoglobin A1C 5.6 % [facility] Comment: Reference Range: <5.7% [...] mg/dl. 04/03/2014 3:10 EDT 04/03/2014 3:14 EDT us Rafa Bright MD CHEMISTRY & BLOOD GAS ORDERABL ES Final Result Performing Organization Address [facility] de Phone Number [facility] [address] [place] [address] * (ABNORMAL) AST (04/03/2014 3:10 EDT) AST 274(H) 15 - 46 U/L [facility] 04/03/2014 3:10 EDT 04/03/2014 3:14 EDT us Rafa Bright MD CHEMISTRY & BLOOD GAS ORDERABL ES Final Result Performing Organization Address [facility] de Phone Number [facility] [address] [place] [address] * (ABNORMAL) ALT (04/03/2014 3:10 EDT) ALT 292(H) 21 - 72 U/L [facility] 04/03/2014 3:10 EDT 04/03/2014 3:14 EDT us Rafa Bright MD CHEMISTRY & BLOOD GAS ORDERABL ES Final Result Performing Organization Address [facility] de Phone Number [facility] [address] [place] [address] * ALKALINE PHOSPHATASE (04/03/2014 3:10 EDT) Total Alkaline Phosphatase 84 38 - 126 U/L [facility] 04/03/2014 3:10 EDT 04/03/2014 3:14 EDT us Rafa Bright MD CHEMISTRY & BLOOD GAS ORDERABL ES Final Result Performing Organization Address [facility] de Phone Number [facility] [address] [place] [address] * (ABNORMAL) PTT (04/03/2014 3:10 EDT) PTT 97(H) 26 - 37 secs [facility] Comment:Therapeutic Heparin range: 65-100 seconds Blood specimen (specimen) 04/03/2014 3:10 EDT 04/03/2014 3:14 EDT Raaf Bright MD HEMATOLOGY & PF4 ORDERABLES Fi nal Result Performing Organization Address [facility] de Phone Number [facility] [address] [place] [address] * PROTIME (04/03/2014 3:10 EDT) Pro Time 9.6 9.5 - 12.3 secs [facility] I.N.R. 0.9 0.9 - 1.1 Ratio [facility] Comment: Moderate Intensity Coumadin INR = 2.0-3.0 Adjustments in anticoagulant therapy dose should be based upon the INR and NOT the Pro Time. Blood specimen (specimen) 04/03/2014 3:10 EDT 04/03/2014 3:14 EDT Rafa Bright MD HEMATOLOGY & PF4 ORDERABLES Fi nal Result Performing Organization Address [facility] de Phone Number [facility] [address] [place] [address] * CREATININE (04/03/2014 3:10 EDT) Creatinine 0.66 0.66 - 1.25 mg/dl [facility] GFR, Calculated >60 >60 ml/min/1.7 3m2 [facility] Blood specimen (specimen) 04/03/2014 3:10 EDT 04/03/2014 3:14 EDT Result [facility] Rafa Bright MD CHEMISTRY & BLOOD GAS ORDERABL ES Final Result Performing Organization Address [facility] de Phone Number [facility] [address] [place] [address] * (ABNORMAL) BUN (04/03/2014 3:10 EDT) BUN 9(L) 10 - 26 mg/dl [facility] Blood specimen (specimen) 04/03/2014 3:10 EDT 04/03/2014 3:14 EDT us Rafa Bright MD CHEMISTRY & BLOOD GAS ORDERABL ES Final Result Performing Organization Address [facility] de Phone Number [facility] [address] [place] [address] * ELECTROLYTES (04/03/2014 3:10 EDT) Sodium 143 136 - 145 mEq/L [facility] Potassium 4.0 3.5 - 5.0 mEq/L [facility] Chloride 103 96 - 110 mEq/L [facility] CO2 28 24 - 32 mEq/L [facility] Blood specimen (specimen) 04/03/2014 3:10 EDT 04/03/2014 3:14 EDT us Rafa Bright MD CHEMISTRY & BLOOD GAS ORDERABL ES Final Result Performing Organization Address [facility] de Phone Number [facility] [address] [place] [address] * CK MB WITH TOTAL CK (04/03/2014 3:10 EDT) CK 133 0 - 250 U/L [facility] MB 1.90 <4.21 ng/ml [facility] Blood specimen (specimen) 04/03/2014 3:10 EDT 04/03/2014 3:14 EDT Rafa Bright MD CHEMISTRY & BLOOD GAS ORDERABL ES Final Result Performing Organization Address [facility] de Phone Number [facility] [address] [place] [address] * TROPONIN I (04/03/2014 3:10 EDT) Troponin I (ng/mL) <0.034 <0.034 ng/ml [facility] Blood specimen (specimen) 04/03/2014 3:10 EDT 04/03/2014 3:14 EDT us Rafa Bright MD CHEMISTRY & BLOOD GAS ORDERABL ES Final Result Performing Organization Address City/[facility] Co de Phone Number [facility] [address] [place] [address] * (ABNORMAL) ETHANOL, BLOOD (04/03/2014 3:10 EDT) Ethanol 230(H) <10 mg/dl [facility] Blood specimen (specimen) 04/03/2014 3:10 EDT 04/03/2014 3:14 EDT us Rafa Bright MD CHEMISTRY & BLOOD GAS ORDERABL ES Final Result Performing Organization Address [facility] Co de Phone Number [facility] [address] [place] [address] documented in this encounter Visit Diagnoses Diagnosis Chest pain- Primary Chest pain, unspecified Chest pain Chest pain, unspecified ETOH abuse Alcohol abuse, unspecified CAD (coronary artery disease) Coronary atherosclerosis of unspecified type of vessel, [place] or graft ETOH abuse Alcohol abuse, unspecified [...] 04/03/2014 3:50 EDT 1 mg heparin in 1/2 NS 25,000 [...] Discontinued, Routine 1045 (Given - Provid er: RT Jhonny) Multivitamins with Minerals tablet 1 Tab (CANCELED) [...] 03/17 documented in this encounter Care Teams Finisher Plate Relationship Specialty Start Date End Date Sai Garg MD [address] [place] [address] [phone] PCP - General 01/03/14 11/11/14 documented as of this encounter
--- OUTSIDE RECORDS SUMMARY | 2024-08-06 12:11 | XMS_ITS | Encounter Summary ---
Author Organization [facility] Address [address] [place] [address] Care Team Providers Care Lawn Caretaker Name Role Phone Sai Garg MD Primary Care Provi glynn Reason for Visit * Reason Onset Date Comments Appointment Related 02/19/2014 NO SHOW Encounter Details Date Type Department Care Team (Late st Contact Info) Description 02/19/2014 Telephone [facility] Cardiology - [address] [place] [address] Gala Campbell, CHARY [address] [facility] 1 [place] [address] Appointment Related (NO SHOW) Social [...] hearing? Answer Date of Assessment Author No 01/18/2014 0:48 Gabe Gillette RN * Are you blind or do you have serious difficulty seeing, even when wearing glasses? Answer Date of Assessment Author No 01/18/2014 0:48 Gabe Gillette, NING * Do you have serious difficulty walking or climbing stairs? (5 years old or older) Answer Date of Assessment Author No 01/18/2014 0:48 Gabe Gillette, NING * Do you have difficulty dressing or bathing? (5 years old or older) Answer Date of Assessment Author No 01/18/2014 0:48 EDT Gabe Robles RN * Because of a physical, mental, or emotional condition, do you have difficulty doing errands alone such as visiting a doctor's office or shopping? (15 years old or older) Answer Date of Assessment Author No 01/18/2014 0:48 EDT Gabe Robles RN documented as of this encounter Mental Status * Because of a physical, mental, or emotional condition, do you have serious difficulty concentrating, remembering, or making decisions? (5 years old or older) Answer Entry Date Author No 01/18/2014 0:48 EDT Gabe Robles RN documented in this encounter Miscellaneous Notes * Telephone Encounter [...] on filedocumented in this encounter Care Teams Lawn Caretaker Relationship Specialty Start Date End Date Sai Grag MD [address] [place] [phone] PCP - General 01/03/14 11/11/14 documented as of this encounter
--- OUTSIDE RECORDS SUMMARY | 2024-08-06 12:11 | XMS_ITS | Encounter Summary ---
Author Organization [facility] Address [address] [place] [address] Care Team Providers Care Linux Engineer Name Role Phone Sai Garg MD Primary Care Provi glynn Encounter Details Date Type Department Care Team (Latest Contact Info) Description 06/01/2015 9:19 EDT - 06/01/2015 23:59 EDT Hospital Encounter [facility] [address] [place] [address] Unknown, Provider, MD Discharge Disposition: Home or [...] Etelvina Gonzalez RN documented in this encounter Medications at [...] Code Departure Means Destination Home or Self Residential documented in this encounter Plan of Treatment Not on file documented as of this encounter Visit Diagnoses Not on filedocumented in this encounter Care Teams Linux Engineer Relationship Specialty Start Date End Date Sai Garg MD [address] [place] [phone] PCP - General 03/12/15 11/04/19 documented as of this encounter
--- OUTSIDE RECORDS SUMMARY | 2024-08-06 12:11 | XMS_ITS | Encounter Summary ---
Author Organization Health system Address [address] [place] [address] Care Team Providers Care Industrial Hygienist Name Role Phone Sai Garg MD Primary Care Provi glynn Encounter Details Date Type Department Care Team (Late st Contact Info) Description 05/21/2015 Historical Results Only [facility] Radiology Results [address] [place] [address] Bhavesh Chi MD [address] [place] [address] Social History Tobacco Use Types [...] CC: ? Transcribed Date/Time: 05/21/2015 (1208) ? Web User Experience Strategist: ? Printed Date/Time: 02/25/2019 (1113) ? PAGE [...] Sai Lo MD CC: Transcribed Date/Time: 05/21/2015 (2465) Web User Experience Strategist: SCKeke Printed Date/Time: 02/25/2019 (2120) PAGE 1 Signed Report [facility] Gerard Chi MD IMG DIAGNOSTIC IMAGING O RDERABLES Final Result documented in this encounter Visit Diagnoses Not on filedocumented in this encounter Care Teams Industrial Hygienist Relationship Specialty Start Date End Date Sai Garg MD [address] [place] [phone] PCP - General 03/12/15 11/04/19 documented as of this encounter
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
--- OUTSIDE RECORDS SUMMARY | 2024-08-06 12:11 | XMS_ITS | Encounter Summary ---
Author Organization [facility] Address [address] [place] [address] Care Team Providers Care Finance Officer Name Role Phone Sai Garg MD Primary Care Provi glynn Encounter Details Date Type Department Care Team (Late st Contact Info) Description 06/02/2015 Historical Results Only [facility] Radiology Results [address] [place] [address] Marcelino Riojas MD [address] [place] [address] Social History Tobacco Use Types [...] MD ? CC: ? Transcribed Date/Time: 06/02/2015 (5754) ? Fence Making Machine Operator: ? Printed Date/Time: 02/25/2019 (8604) ? PAGE 1 ? Signed Report ? [...] Orville Marvin MD CC: Transcribed Date/Time: 06/02/2015 (4024) Fence Making Machine Operator: Printed Date/Time: 02/25/2019 (3724) PAGE 1 Signed Report us Marcelino Josue Riojas MD IMG DIAGNOSTIC IMAGING [facility] Final Result * CT LOWER EXTREMITY WO CONTRAST (06/02/2015 [...] CC: ? Transcribed Date/Time: 06/02/2015 (1147) ? Fence Making Machine Operator: ? Printed Date/Time: 02/25/2019 (2134) ? PAGE 1 ? Signed Report ? [...] Gamaliel Vitale MD CC: Transcribed Date/Time: 06/02/2015 (1147) Fence Making Machine Operator: Printed Date/Time: 02/25/2019 (4068) PAGE 1 Signed Report us Marcelino Riojas MD IMG CT ORDERABLES Final Res ult * XR FEMUR LEFT 2 OR MORE [...] MD ? CC: ? Transcribed Date/Time: 06/02/2015 (0927) ? Fence Making Machine Operator: ? Printed Date/Time: 02/25/2019 (1114) ? [...] Orville Marvin MD CC: Transcribed Date/Time: 06/02/2015 (0927) Fence Making Machine Operator: Printed Date/Time: 02/25/2019 (4332) PAGE 1 Signed Report us Marcelino Riojas MD IMG DIAGNOSTIC IMAGING [facility] Final Result * XR PELVIS 1-2 VIEWS (06/02/2015 9:22 [...] MD ? CC: ? Transcribed Date/Time: 06/02/2015 (925) ? Fence Making Machine Operator: ? Printed Date/Time: 02/25/2019 (4926) ? PAGE 1 ? Signed Report ? [...] Orville Marvin MD CC: Transcribed Date/Time: 06/02/2015 (925) Fence Making Machine Operator: Printed Date/Time: 02/25/2019 (4133) PAGE 1 Signed Report us Marcelino Josue Riojas MD IM DIAGNOSTIC IMAGING [facility] Final Result documented in this encounter Visit Diagnoses Not on filedocumented in this encounter Care Teams Finance Officer Relationship Specialty Start Date End Date Sai Garg MD [address] [place] [phone] PCP - General 03/12/15 11/04/19 documented as of this encounter
--- OUTSIDE RECORDS SUMMARY | 2024-08-06 12:11 | XMS_ITS | Encounter Summary ---
Author Organization [facility] Address [address] [place] [address] Care Team Providers Care Customer Service Attendant Name Role Phone Erich Sethi MD Primary Care Provider [phone] [phone] Sai Garg MD Primary Care Provi glynn Encounter Details Date Type Department Care Team (Late st Contact Info) Description 01/10/2015 Historical Results Only [facility] Rad[facility] Results [address] [place], [place] [address] Ravi Schwartz MD [address] [place] [address] Social History Tobacco Use Types [...] MD ? CC: ? Transcribed Date/Time: 05/04/2015 (5192) ? Paint Booth Operator: JENNY ? Printed Date/Time: 02/18/2019 (9728) ? PAGE 1 ? Signed Report ? [...] Orville Marvin MD CC: Transcribed Date/Time: 05/04/2015 (9702) Paint Booth Operator: JENNY Printed Date/Time: 02/18/2019 (5063) PAGE 1 Signed Report Lily Flores MD [facility] DIAGNOSTIC IMAGING ORDERABLES Final Result documented in this encounter Visit Diagnoses Not on filedocumented in this encounter Care Teams Customer Service Attendant Relationship Specialty Start Date End Date Erich Sethi MD [address] [place] [address] [phone] PCP - General 11/12/14 03/11/15 Sai Garg MD [address] [place] [phone] PCP - General 03/12/15 11/04/19 documented as of this encounter
--- OUTSIDE RECORDS SUMMARY | 2024-08-06 12:11 | XMS_ITS | Encounter Summary ---
Author Organization [facility] Address [address] [place] [address] Care Team Providers Care Floral Merchandiser Name Role Phone Erich Sethi MD Primary Care Provider [phone] Encounter Details Date Type Department Care Team (Latest Contact Info) Description 03/11/2015 11:58 EDT - 03/11/2015 23:59 EDT Hospital Encounter [facility] [address] [place] [address] Unknown, Provider, MD Discharge Disposition: Home or [...] Date of Assessment Author Yes 03/12/2015 10:54 EDEtelvina Carvajal RN documented as of this encounter Mental [...] Code Departure Means Destination Home or Self [facility] documented in this encounter Plan of Treatment Not on file documented as of this encounter Visit Diagnoses Not on filedocumented in this encounter Care Teams Floral Merchandiser Relationship Specialty Start Date End Date Erich Sethi MD [address] [place] [phone] PCP - General 11/12/14 03/11/15 documented as of this encounter
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
--- OUTSIDE RECORDS SUMMARY | 2024-08-06 12:11 | XMS_ITS | Encounter Summary ---
Author Organization [facility] Address [address] [place] [address] Care Team Providers Care Padded Box Sewer Name Role Phone Sai Garg MD Primary Care Provi glynn Encounter Details Date Type Department Care Team (Late st Contact Info) Description 05/12/2015 Historical Results Only [facility] Radiology Results [address] [place], [place] [address] Sai Garg MD [address] [place] [phone] Social History Tobacco Use Types Packs/Day [...] Date Author Yes 03/12/2015 10:54 EDT Etelvina eKnnedy RN documented in this encounter Plan of [...] was not present on that exam. ? JSP:nacho ? Information on this document has changed ? PLEASE NOTE ? This Document was signed prior to the inclusion of the changes below ? by ANTONY on 05/18/2015 (1509): ? Ordering Physician: Exam [id number] ??CT/SECONDARY READ CAT SCAN EXAM ? Was Kg Serna MD ?Reported By: Gamaliel Vitale MD ? CC: ? Transcribed Date/Time: 05/14/2015 (1513) ? Marketing Secretary: JENNY ? Printed Date/Time: 02/25/2019 (1113) ? [...] the changes below by ANTONY, on 05/18/2015 (1509): Ordering Physician: Exam [id number] CT/SECONDARY READ CAT SCAN EXAM Was Kg Serna MD Reported By: Gamaliel Vitale MD CC: Transcribed Date/Time: 05/14/2015 (6384) Marketing Secretary: JENNY Printed Date/Time: 02/25/2019 (6627) PAGE 1 Signed Report Sai Hernández MD IMG CT ORDERABLES F inal Result documented in this encounter Visit Diagnoses Not on filedocumented in this encounter Care Teams Padded Box Sewer Relationship Specialty Start Date End Date Sai Garg MD [address] [place] [phone] PCP - General 03/12/15 11/04/19 documented as of this encounter
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
--- OUTSIDE RECORDS SUMMARY | 2024-08-06 12:12 | XMS_ITS | Encounter Summary ---
Author Organization [facility] Address [address] [place] [address] Care Team Providers Care Train Attendant Name Role Phone Reagan Foster MD Primary Care Pro vider Sai Garg MD Primary Care Provi glynn Reason for Referral * (Routine) - Closed Specialty Diagnoses / Procedures Referred By Contac t Referred To Contact Kristel Garcia NP Referral ID Status Reason Start Date Expiration Date V isits Requested Visits Authorized [id number] Closed Specialty Services Required 01/02/2014 1 1 [...] Referred By Contac t Referred To Contact Kristel Garcia NP Referral ID Status Reason Start Date Expiration Date V isits Requested Visits Authorized [id number] Closed Specialty Services Required 01/02/2014 1 1 Question Answer Reason for recommendation: Discharge follow-up Comments Follow up with Dr Bryan Peraza, robotype operator in [place]. Office phone number for questions or concerns: [phone]. * (Routine) - Closed Specialty Diagnoses / Procedures Referred By Contac t Referred To Contact Kristel Garcia NP Referral ID Status Reason Start Date Expiration Date V isits Requested Visits Authorized [id number] Closed Specialty Services Required 01/02/2014 1 1 Question Answer Reason for recommendation: Discharge follow up Reason for Visit * Reason Comments Chest Pain NSTEMI transfer ,arr yomaira 7/10 cp Encounter Details Date Type Department Care Team (Late st Contact Info) Description 01/02/2014 11:47 EDT - 01/03/2014 14:06 EDT Hospital Encounter [facility] Cardiac/Telemetry Unit [address], [place] [id number] Shane Cr MD Plante, Laurel Barkell, MD [address] [facility], Level [address] [place] [address] Braydon Putnam MD NSTEMI (non-ST elevated myocardial infarction) ([facility]) (Primary Dx) Discharge Disposition: Home or Self [...] hearing? Answer Date of Assessment Author No 01/02/2014 17:00 EDT Cassy Camarena, RN * Are you blind or do you have serious difficulty seeing, even when wearing glasses? Answer Date of Assessment Author No 01/02/2014 17:00 EDCassy Gu RN * Do you have serious difficulty walking or climbing stairs? (5 years old or older) Answer Date of Assessment Author No 01/02/2014 17:00 Cassy Woo RN documented as of this encounter Mental Status * Because of a physical, mental, or emotional condition, do you have serious difficulty concentrating, remembering, or making decisions? (5 years old or older) Answer Entry Date Author Yes 11/13/2009 13:28 Yanique Garcia RN documented in this encounter Discharge Summaries * Joana Benson - 01/02/2014 1721 EDT Discharge Summary Attending Physician: Shane Cr MD Date of Admission: 01/02/2014 Date of Discharge: 01-03-14 Disposition: home Reason for Admission: NSTEMI Hospital Problems: Active Problems: NSTEMI (non-ST elevated myocardial infarction) Principal Procedure: [facility] with BMS x 3 to LAD [...] loaded with aspirin and transferred to [facility]. In addition he received magnesium 2 g IV fro a Mg of 1.2. On presentation to [facility] he had continued chest pain with concern [...] lisinopril 20 mg tablet Commonly known as: MARCELLE ZESTRIL What changed: - medication strength - [...] Follow-up appointments and procedures Follow up with robotype operator. The robotype operator's office will call you to set up an appointment. Follow up with Dr Bryan Peraza, robotype operator in [place]. Office phone number for questions or concerns: [phone]. Reason for recommendation: Discharge follow-up Authorizing Provider: [...] Kristel Garcia NP Jacqueline O'Toole, DO PGY1 Cosigned by Ian Almanza MD at 01/04/2014 10:18 EDT documented in this encounter Medications at Time of Discharge amitriptyline (ELAVIL) 50 mg tablet Take 50 [...] Refills Last Filled Start Date End Date aspirin chewable 81 mg tablet Take 1 [...] He states he no longer lives in [place], that he lives in [facility]; [place] but on the map it is actually in [facility]. Unsure closest location of follow up, but I have scheduled this at [facility] as he came from there by ambulance. [...] loaded with aspirin and transferred to [facility]. In addition he received magnesium 2 g IV On presentation to [facility] he had continued chest pain with concern [...] changes, and elevated cardiac biomarkers. Transferred to [facility] for further care. Received aspirin 325 at [...] withdrawal. ETOH at 149 at OSH - [place] COPD: -- Duo- nebs as needed --Supplemental oxygen as needed Tobacco dependence: Extensive tobacco history --Nicotine replacement therapy offered --Smoking cessation counseling offered GI/Nutrition: - diet NPO for now - daily lytes, bun, cr - strict I&O - daily weights GI & DVT Prophylaxis: heparin gtt CODE status: full Prognosis/Disposition: pending cath results Justus Lantigua MD 01/02/2014 12:13 Pager #[phone] Pt seen and examined prior to cardiac cath. Ongoing moderate CP. No rub. Moderate distress, somewhat agitated/anxious. Pulses good LEs. ECG with concerning anterior ST changes bordering on STEMI criteria. For emergent cardiac cath. See my procedure note. High risk for med non compliance or bleeding on initial eval. Bare metal stents appropriate. Chico Posey MD Cardiology Pager [phone] [facility] documented in this encounter Procedure Notes * Chico Posey MD - 01/02/2014 4878 EDT Cardiovascular Catheterization Laboratory Preliminary Report -- [...] artery Procedure: He was brought to the [facility] Cardiac Catheterization Laboratory for the procedure: Diagnostic [...] Jesus RN - 01/02/2014 1300 EDT To TECHNICAL PROPOSAL WRITER * Yolanda Gonzalez MD - 01/02/2014 1210 [...] by cards. 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 ? Evolving anterior FL. Labs pending at time of admission. Disposition: [...] enroute direct admit. 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 Acute hypotention when given nitroglycerine. 2 grams magnesium given for mag 1.2. Morphine and fentanyl for pain uniform force captain. documented in this encounter Miscellaneous Notes [...] discharge and every two hours while on BEARING MAKER or epidural. Data: Pt had been complaining of left chest pain during the night and had been given morphine. Action: VS and assessment completed. Pt asked about his pain. Response: Pt stated that it is much better, then he asked what was wrong with me? Explained that hehad an FL and stents had been placed in the [...] Care - Shakira Camarena RN - 01/02/2014 0650 EDT D: Assumed care of pt at [...] Resident - Mary Ang MD - 01/02/2014 5449 EDT DOS: 01/02/2014 Chief Complaint Patient presents with ??? Chest Pain NSTEMI transfer ,arrives 710 cp The patient is a 58 y.o. [...] aspirin, started a heparin dripand transferred to [facility]. Patient was seen in the ED for [...] REPORT-SCANNED (09/29/2015 9:35 EST) 09/29/2015 9:35 EST us Scan 2 Fuller Brush Man PROCEDURE/MINOR SURGICAL OR DERABLES Final Result * ECG REPORT - SCANNED (01/09/2014 14:28 EDT) 01/09/2014 14:2 8 EDT us Scan 2 Fuller Brush Man PROCEDURE/MINOR SURGICAL OR DERABLES Final Result * ECG REPORT - SCANNED (01/08/2014 13:09 EDT) 01/08/2014 13:0 9 EDT us Scan 2 Fuller Brush Man PROCEDURE/MINOR SURGICAL OR DERABLES Final Result * INVASIVE CARDIOLOGY REPORT-SCANNED (01/08/2014 13:09 EDT) 01/08/2014 13:0 9 EDT us Scan 2 Fuller Brush Man PROCEDURE/MINOR SURGICAL OR DERABLES Final Result * ECG REPORT - SCANNED (01/07/2014 15:11 EDT) 01/07/2014 15:1 1 EDT us Scan 2 Fuller Brush Man PROCEDURE/MINOR SURGICAL OR DERABLES Final Result * ECG REPORT - SCANNED (01/07/2014 15:11 EDT) 01/07/2014 15:1 1 EDT us Scan 2 Fuller Brush Man PROCEDURE/MINOR SURGICAL OR DERABLES Final Result * EKG 12-LEAD (01/03/2014 8:06 EDT) 01/03/2014 8:06 EDT Narrative FA EKG - 01/06/2014 12:11 EDT ?[facility] ? Test Date: ?2014-01-03 Pat Name: ? JIMENEZ BARKLEY ? Department: ?? Gabriel 5 ? Room: ? ME520 Gender: ? M ?Brand Inspector: ?? [id number] : ?1955 ? Requested By: KENYON SULLIVAN MD Order Number: [id number] ? Reading MD: ?? WAYLON MUÑOZ MD ? Measurements Intervals ?Dubois ? Rate: ? 60 ? P: ?-36 OK: ? 136 ?QRS: ?58 QRSD: ? 96 [...] Date: 2014-01-03 Pat Name: JIMENEZ BARKLEY Department: [place] [address] Room: [facility] Gender: M Brand Inspector: [id number] : 1955 Requested By: KENYON SULLIVAN MD Order Number: [id number] Gwen MD: WAYLON MUÑOZ MD Measurements Intervals Dubois Rate: 60 P: -36 OK: 136 QRS: 58 QRSD: 96 T: 37 QT: 437 QTc: 437 Interpretive Statements SINUS RHYTHM WITH SINUS ARRHYTHMIA Automated Interpretation. Physician Interpretation to follow. Compared to ECG 01/02/2014 19:10:46 Sinus arrhythmia now present I have reviewed the tracing and have either agreed or edited the findingsin this report. Electronically Signed On 01-06-14 12:11:02 EDT by VIRGINIA CRAFT. us Kenyon Sullivan MD CARDIAC ECG ORDERABLES Final Result Performing Organization Address City/State/[facility] Co de Phone Number [facility] EKG * SMEAR REVIEW (01/03/2014 5:38 EDT) Pathologist [facility] Smear scan only: Slide was examined by a technologist to verify the WBC and/or platelet count. [facility] 01/03/2014 5:38 EDT 01/03/2014 5:44 EDT Kenyon Sullivan MD HEMATOLOGY & PF4 ORDERABLES Final Result Performing Organization Address [facility] de Phone Number [facility] [address] [place] [address] * CK MB WITH TOTAL CK (01/03/2014 5:38 EDT) [facility] CK 64 0 - 250 U/L [facility] MB 1.75 <4.21 ng/ml [facility] Blood specimen (specimen) 01/03/2014 5:38 EDT 01/03/2014 5:44 EDT Kenyon Sullivan MD CHEMISTRY & BLOOD GAS ORDERA BLES Final Result Performing Organization Address [facility] de Phone Number [facility] [address] [place] [address] * (ABNORMAL) ALT (01/03/2014 5:38 EDT) [facility] ALT 161(H) 21 - 72 U/L [facility] Blood specimen (specimen) 01/03/2014 5:38 EDT 01/03/2014 5:44 EDT Kenyon Sullivan MD CHEMISTRY & BLOOD GAS ORDERA BLES Final Result Performing Organization Address [facility] de Phone Number [facility] [address] [place] [address] * (ABNORMAL) AST (01/03/2014 5:38 EDT) [facility] AST 118(H) 15 - 46 U/L [facility] Comment:Sample retested, res ult confirmed Blood specimen (specimen) 01/03/2014 5:38 EDT 01/03/2014 5:44 EDT Kenyon Sullivan MD CHEMISTRY & BLOOD GAS ORDERA BLES Final Result Performing Organization Address [facility] de Phone Number [facility] [address] [place] [address] * LIPID PROFILE (INCLUDES CHOLESTEROL, TRIGLYCERIDES, HDL, LDL) (01/03/2014 5:38 EDT) Cholesterol 123 mg/dl [facility] Comment: Desirable:<200 Borderline High:200-239 High:>bs=417 Triglycerides 43 mg/dl [facility]AVA [facility] Comment: Normal:<150 Borderline High:150-199 High:200-499 Very High:>du=621 HDL 74 mg/dl [facility] Comment: Low:<40 Normal:40-60 Desirable: >60 LDL, Calculated 40 mg/dl [facility]ON [facility] Comment: Optimal:<100 Near Optimal:100-129 Borderline High:130-159 High:160-189 Very High:>wa=436 Chol/HDL Ratio 1.7 [facility]ES [facility] Fasting? Unknown [facility] Non HDL Cholesterol 49 mg/dl [facility] Comment: Desirable:<130 Borderline:130-159 High: 160-189 Very High: >fq=355 Blood specimen (specimen) 01/03/2014 5:38 EDT 01/03/2014 5:44 EDT Kenyon Sullivan MD CHEMISTRY & BLOOD GAS ORDERA BLES Final Result Performing Organization Address [facility] de Phone Number [facility] [address] [place] [address] * (ABNORMAL) CREATININE (01/03/2014 5:38 EDT) Creatinine 0.59(L) 0.66 - 1.25 mg/dl [facility] GFR, Calculated >60 >60 ml/min/1.7 3m2 [facility] Blood specimen (specimen) 01/03/2014 5:38 EDT 01/03/2014 5:44 EDT Kneyon Sullivan MD CHEMISTRY & BLOOD GAS ORDERA BLES Final Result Performing Organization Address [facility] de Phone Number [facility] [address] [place] [address] * (ABNORMAL) BUN (01/03/2014 5:38 EDT) BUN 7(L) 10 - 26 mg/dl [facility] Blood specimen (specimen) 01/03/2014 5:38 EDT 01/03/2014 5:44 EDT Kenyon Sullivan MD CHEMISTRY & BLOOD GAS ORDERA BLES Final Result Performing Organization Address [facility] de Phone Number [facility] [address] [place] [address] * ELECTROLYTES (01/03/2014 5:38 EDT) Sodium 136 136 - 145 mEq/L [facility] Potassium 4.4 3.5 - 5.0 mEq/L [facility] Chloride 101 96 - 110 mEq/L [facility] CO2 26 24 - 32 mEq/L [facility] Blood specimen (specimen) 01/03/2014 5:38 EDT 01/03/2014 5:44 EDT us Kenyon Sullivan MD CHEMISTRY & BLOOD GAS ORDERA BLES Final Result Performing Organization Address [facility] de Phone Number [facility] [address] [place] [address] * (ABNORMAL) HEMAGRAM (01/03/2014 5:38 EDT) WBC 6.85 4.0 - 10.4 K/cmm [facility] RBC 4.21(L) 4.36 - 5.78 M/cmm [facility] Hemoglobin 13.6(L) 13.8 - 17.3 gm/dl [facility] HCT 39.6 39.5 - 50.2 % [facility] MCV 94 81 - 95 fl [facility] MCH 32.4 27.6 - 33.0 pg [facility] MCHC 34.5 32.8 - 36.4 gm/dl [facility] PLT 80(L) 141 - 320 K/cmm [facility] RDW-CV 14.1 11.8 - 14.1 % [facility] Blood specimen (specimen) 01/03/2014 5:38 EDT 01/03/2014 5:44 EDT Kenyon Sullivan MD HEMATOLOGY & PF4 ORDERABLES Final Result Performing Organization Address [facility] Co de Phone Number [facility] [address] [place] [address] * CK MB WITH TOTAL CK (01/02/2014 21:33 EDT) CK 80 0 - 250 U/L [facility] MB 1.58 <4.21 ng/ml [facility] Blood specimen (specimen) 01/02/2014 21:33 EDT 01/02/2014 21:44 EDT Justus Lantigua MD CHEMISTRY & BLOOD GAS ORDE RABALONDRA Final Result Performing Organization Address [facility] Co de Phone Number [facility] [address] [place] [address] * (ABNORMAL) TROPONIN I (01/02/2014 21:33 EDT) Troponin I (ng/mL) 0.208(H) <0.034 ng/ml [facility] Blood specimen (specimen) 01/02/2014 21:33 EDT 01/02/2014 21:44 EDT Justus Lantigua MD CHEMISTRY & BLOOD GAS ORDE RABLES Final Result Performing Organization Address [facility] Co de Phone Number [facility] [address] [place] [address] * MAGNESIUM (01/02/2014 19:39 EDT) Magnesium 1.8 1.7 - 2.8 mg/dl [facility] Blood specimen (specimen) 01/02/2014 19:39 EDT 01/02/2014 20:18 EDT Justus Lantigua MD CHEMISTRY & BLOOD GAS ORDE RABLES Final Result Performing Organization Address City/[facility]/ZIP Co de Phone Number [facility] [address] [place] [address] * (ABNORMAL) ELECTROLYTES (01/02/2014 19:39 EDT) Sodium 134(L) 136 - 145 mEq/L [facility] Potassium 4.0 3.5 - 5.0 mEq/L [facility] Chloride 102 96 - 110 mEq/L [facility] CO2 26 24 - 32 mEq/L [facility] Blood specimen (specimen) 01/02/2014 19:39 EDT 01/02/2014 20:18 EDT uJstus Lantigua MD CHEMISTRY & BLOOD GAS ORDE RABALONDRA Final Result Performing Organization Address [facility] Co de Phone Number [facility] [address] [place] [address] * CK MB WITH TOTAL CK (01/02/2014 19:39 EDT) Pathologist [facility] CK 85 0 - 250 U/L [facility] MB 1.43 <4.21 ng/ml [facility] Blood specimen (specimen) 01/02/2014 19:39 EDT 01/02/2014 20:18 EDT Justus Lantigua MD CHEMISTRY & BLOOD GAS ORDE RABALONDRA Final Result Performing Organization Address City/[facility] Co de Phone Number [facility] [address] [place] [address] * EKG 12-LEAD (01/02/2014 19:10 EDT) 01/02/2014 19:1 0 EDT Narrative FA EKG - 01/06/2014 23:52 EDT ?[facility] ? Test Date: ?2014-01-02 Pat Name: ? JIMENEZ BARKLEY ? Department: ?? Nery Mackay ? Room: ? ME520 Gender: ? M ?Brand Inspector: ?? [id number] : ?1955 ? Requested By: JUSTUS LANTIGUA MD Order Number: [id number] ? Reading MD: ?? CHICO POSEY MD ? Measurements Intervals ?Dubois ? Rate: ? 68 ? P: ?50 OK: ? 159 ?QRS: ?57 QRSD: ? 92 [...] Note Chico Posey MD - 01/06/2014 [facility] Test Date: 2014-01-02 Pat Name: JIMENEZ BARKLEY Department: [place] [address] Room: [facility] Gender: M Brand Inspector: [id number] : 1955 Requested By: JUSTUS LANTIGUA MD Order Number: [id number] Reading MD: CHICO POSEY MD Measurements Intervals Dubois Rate: 68 P: 50 OK: 159 QRS: 57 QRSD: 92 T: 37 QT: 416 QTc: 443 Interpretive Statements SINUS RHYTHM MODERATE VOLTAGE CRITERIA FOR LVH, CONSIDER NORMAL VARIANT Anterior ST elevations, consider ischemai Compared to ECG 01/02/2014 11:54:40 Prolonged QT interval no longer present I have reviewed the tracing and have either agreed or edited the findingsin this report. Electronically Signed On 01-06-14 23:52:08 EDT by CHICO BUI. us Justus Lantigua MD CARDIAC ECG ORDERABLES Fin al Result Performing Organization Address City/State/[facility] Co de Phone Number [facility] EKG * INPATIENT ADD-ON (01/02/2014 15:45 EDT) Tests to be added PLEASE ADD PROTIME, ALK PHOS, ALT, AST, SCREENING GLUCOSE TO PREVIOUS TESTING, THANK YOU [facility] Number for problems [id number] [facility] Accession number [id number], DUPLICATION OF GLS REQUEST WHICH IS ALREADY ON THIS ACCESSION [facility] 01/02/2014 15:4 5 EDT 01/02/2014 16:08 EDT us Shane Cr MD HEMATOLOGY & PF4 ORDERABLES Fi nal Result Performing Organization Address [facility] Co de Phone Number [facility] [address] [place] [address] * ECHOCARDIOGRAM (01/02/2014 15:38 EDT) Anatomical Region Laterality Modality Other 01/02/2014 15:3 8 EDT Narrative 01/02/2014 16:44 EDT *Interpreting Group:* *[facility]* [address] [place] [id number] *STUDY CONCLUSIONS* Summary: ?? Left ventricle: The [...] Cr MD REFERRING ?Reagan Foster PERFORMING ?? Fa, ORDERING ? Kenyon Sullivan REFERRING ?Kenyon Sullivan BODS DEVELOPER ??Lucy Esposito *PROCEDURE DATA* Procedure information: ??This study was interpreted by [facility] at [facility]. ??Study status: ??Routine. Transthoracic echocardiography. ??M-mode, complete [...] 01/02/2014 16:44 Procedure Note 01/02/2014 *Interpreting Group:* *[facility]* [address] [place] [address] *STUDY CONCLUSIONS* Summary: Left ventricle: The cavity size was normal. Wall thickness was normal. Systolic function appeared to be mildly reduced. Wall motion was difficult to assess. There appeared to be septal and anteroseptalhypokinesis. *PATIENT PRESENTATION* Height: 183cm (72in ) S/D Pressure: 150 / 72 Weight: 66kg (145.2lb ) BSA: 1.82m^2 Test start time: :45 PM. Test stop time: 03:40 PM. ADMITTING Braydon Putnam MD ATTENDING Shane Cr MD REFERRING Reagan Foster PERFORMING Fa, ORDERING Kenyon Sullivan REFERRING Kenyon Sullivan BODS DEVELOPER Homerkokiyahaira Lucy *PROCEDURE DATA* Procedure information: [facility]. Study status: Routine.Transthoracic echocardiography. M-mode, complete 2D, [...] signed by Waylon Rutherford MD 01/02/2014 16:44 us Kenyon Sullivan MD CARDIAC ECHO ORDERABLES Naomi soto Result * LEFT HEART CATH (01/02/2014 13:31 EDT) Anatomical Region Laterality Modality Other 01/02/2014 13:3 1 EDT Narrative 01/02/2014 16:41 EDT Cardiology [address] [place] [address] Catheterization Laboratory Study Patient: Jimenez Barkley ? Study Date: ?01/02/2014 ?Accession #: ? [id number] : ? 1955 Referring Physician: Reagan Foster Diagnostic Attending: ?Chico Coulter Interventional Attending: ?Chico Hamilton Interventional Fellow: Kenyon Sullivan ATTESTATION: Dr. Chico [...] was identified. SUMMARY: 1. HPI and indications: Spj-PE-reoaxunc myocardial infarction. 2. LAD: Mid-vessel lesion: There [...] defect consistent with ?? thrombus. There is MERAVT grade 3 flow (brisk flow) across the [...] however NSTEMI Dx requires DAPT x1y. HISTORY: Gco-WJ-nxtnlyxt myocardial infarction. ??PMH: ?? Chronic lung disease. [...] 2. Vessel setup was performed. A 180 CrossFiber wire was used to cross the ?? [...] MD 2014-01-02 16:41 Procedure Note 01/02/[address] [place] [address] Catheterization Laboratory Study Patient: Jimenez Barkley Study Date:01/02/2014 : 1955 Referring Physician: Reagan Foster Diagnostic Attending: Chico Posey Interventional Attending: Chico Posey Interventional Fellow: Kenyon Sullivan ATTESTATION: Dr. Chico Posey was present and supervising for the entire procedure, IDr. Kenyon Sullivan was the initial author of this report. I, Dr. Chico Toribio reviewed and agree with the findings of [...] was identified. SUMMARY: 1. HPI and indications: Kvm-SH-hpozlaku myocardial infarction. 2. LAD: Mid-vessel lesion: There [...] alcohol, a cardiac rehabilitation program, and hemoglobin [id number]. The patient was counseled regarding the importance of adherence to theprescribed antiplatelet therapy and a low fat diet. 3. Add aspirin, 81mgPOdaily. 4. Add clopidogrel (Plavix), 75mgPOdaily, for 1yr. 5. BMS were deployed, however NSTEMI Dx requires DAPT x1y. HISTORY: Xrx-GP-fnaxpzln myocardial infarction. PMH: Chronic lung disease.Functional status: [...] 2. Vessel setup was performed. A 180 CrossFiber wire was used to crossthe lesion. 3. [...] a single inflation and a maximum pressure [id number]. STUDY COMPLETION: The estimated blood loss was [...] signed by Chico Posey MD 2014-01-02 16:41 us Mello Vee MD CARDIAC CATH ORDERABLES Final Result * PROTIME (01/02/2014 12:14 EDT) Pro Time 11.8 9.5 - 13.1 secs [facility] I.N.R. 1.0 0.9 - 1.1 Ratio [facility] Comment: Moderate Intensity Coumadin INR = 2.0-3.0 Adjustments in anticoagulant therapy dose should be based upon the INR and NOT the Pro Time. 01/02/2014 12:1 4 EDT 01/02/2014 12:34 EDT Mary Ang MD HEMATOLOGY & PF4 ORDERABLES Naomi l Result Performing Organization Address [facility] Co de Phone Number [facility] [address] [place] [address] * (ABNORMAL) AST (01/02/2014 12:14 EDT) Pathologist [facility] AST 206(H) 15 - 46 U/L [facility] 01/02/2014 12:1 4 EDT 01/02/2014 12:34 EDT Mary Ang MD CHEMISTRY & BLOOD GAS ORDERABLES Final Result Performing Organization Address [facility] de Phone Number [facility] [address] [place] [address] * (ABNORMAL) ALT (01/02/2014 12:14 EDT) Pathologist [facility] ALT 203(H) 21 - 72 U/L [facility] 01/02/2014 12:1 4 EDT 01/02/2014 12:34 EDT Mary Ang MD CHEMISTRY & BLOOD GAS ORDERABLES Final Result Performing Organization Address [facility] Co de Phone Number [facility] [address] [place] [address] * ALKALINE PHOSPHATASE (01/02/2014 12:14 EDT) Total Alkaline Phosphatase 119 38 - 126 U/L [facility] 01/02/2014 12:1 4 EDT 01/02/2014 12:34 EDT us Mary Ang MD CHEMISTRY & BLOOD GAS ORDERABLES Final Result Performing Organization Address [facility] Co de Phone Number [facility] [address] [place] [address] * MAGNESIUM (01/02/2014 12:14 EDT) Magnesium 1.9 1.7 - 2.8 mg/dl [facility] 01/02/2014 12:1 4 EDT 01/02/2014 12:34 EDT us Mary Ang MD CHEMISTRY & BLOOD GAS ORDERABLES Final Result Performing Organization Address [facility] de Phone Number [facility] [address] [place] [address] * SCREENING GLUCOSE (01/02/2014 12:14 EDT) Glucose, Screening 79 70 - 100 mg/dl [facility] 01/02/2014 12:1 4 EDT 01/02/2014 12:34 EDT us Mary Ang MD CHEMISTRY & BLOOD GAS ORDERABLES Final Result Performing Organization Address [facility] de Phone Number [facility] [address] [place] [address] * (ABNORMAL) CREATININE (01/02/2014 12:14 EDT) Creatinine 0.64(L) 0.66 - 1.25 mg/dl [facility] GFR, Calculated >60 >60 ml/min/1.7 3m2 [facility] 01/02/2014 12:1 4 EDT 01/02/2014 12:34 EDT us Mary Ang MD CHEMISTRY & BLOOD GAS ORDERABLES Final Result Performing Organization Address City/State/[facility] Co de Phone Number [facility] [address] [place] [address] * (ABNORMAL) BUN (01/02/2014 12:14 EDT) [facility] BUN 5(L) 10 - 26 mg/dl [facility] 01/02/2014 12:1 4 EDT 01/02/2014 12:34 EDT Mary Ang MD CHEMISTRY & BLOOD GAS ORDERABLES Final Result Performing Organization Address [facility] Co de Phone Number [facility] [address] [place] [address] * (ABNORMAL) ELECTROLYTES (01/02/2014 12:14 EDT) [facility] Sodium 140 136 - 145 mEq/L [facility] Potassium 3.4(L) 3.5 - 5.0 mEq/L [facility] Chloride 102 96 - 110 mEq/L [facility] CO2 22(L) 24 - 32 mEq/L [facility] 01/02/2014 12:1 4 EDT 01/02/2014 12:34 EDT Mary Ang MD CHEMISTRY & BLOOD GAS ORDERABLES Final Result Performing Organization Address [facility] Co de Phone Number [facility] [address] [place] [address] * (ABNORMAL) TROPONIN I (01/02/2014 12:14 EDT) [facility] Troponin I (ng/mL) 0.040(H) <0.034 ng/ml [facility] 01/02/2014 12:1 4 EDT 01/02/2014 12:34 EDT Mary Ang MD CHEMISTRY & BLOOD GAS ORDERABLES Final Result Performing Organization Address [facility] Co de Phone Number [facility] [address] [place] [address] * CK MB WITH TOTAL CK (01/02/2014 12:14 EDT) [facility] CK 87 0 - 250 U/L [facility] MB 0.92 <4.21 ng/ml [facility] 01/02/2014 12:1 4 EDT 01/02/2014 12:34 EDT us Mary Ang MD CHEMISTRY & BLOOD GAS ORDERABLES Final Result Performing Organization Address [facility] de Phone Number [facility] [address] [place] [address] * HOLD BLUE TOP (01/02/2014 12:14 EDT) [facility] Hold Blue Top Sample for coagulation will be discarded after 4 hours [facility] 01/02/2014 12:1 4 EDT 01/02/2014 12:34 EDT Mary Ang MD LAB INFO SERVICE AND SUPPORT & P DREAD RESULT Final Result Performing Organization Address [facility] de Phone Number [facility] [address] [place] [address] * (ABNORMAL) DIFFERENTIAL (01/02/2014 12:14 EDT) [facility] % Neutrophils 74.0 45.5 - 79.7 % [...] [facility] Type of Diff: Automated [facility] 01/02/2014 12:1 4 EDT 01/02/2014 12:34 EDT us Mary Ang MD HEMATOLOGY & PF4 ORDERABLES Naomi l Result Performing Organization Address [facility] de Phone Number [facility] [address] [place] [address] * (ABNORMAL) HEMAGRAM (01/02/2014 12:14 EDT) WBC 7.03 4.0 - 10.4 K/cmm [facility] RBC 4.55 4.36 - 5.78 M/cmm [facility] Hemoglobin 14.7 13.8 - 17.3 gm/dl [facility] HCT 42.5 39.5 - 50.2 % [facility] MCV 93 81 - 95 fl [facility] MCH 32.3 27.6 - 33.0 pg [facility] MCHC 34.6 32.8 - 36.4 gm/dl [facility] PLT 107(L) 141 - 320 K/cmm [facility] RDW-CV 13.9 11.8 - 14.1 % [facility] 01/02/2014 12:1 4 EDT 01/02/2014 12:34 EDT us Mary Ang MD HEMATOLOGY & PF4 ORDERABLES Naomi l Result Performing Organization Address [facility] de Phone Number [facility] [address] [place] [address] * EKG 12-LEAD (01/02/2014 11:54 EDT) 01/02/2014 11:5 4 EDT Narrative [facility] EKG - 01/05/2014 16:05 EDT ?[facility] ? Test Date: ?2014-01-02 Pat Name: ? JIMENEZ BARKLEY ? Department: ?? ED ? Room: ? AC02 Gender: ? M ?Brand Inspector: ?? [id number] : ?1955 ? Requested By: SHANE CR MD Order Number: [id number] ?Reading MD: ?? ARIE LIRIANO MD ? Measurements Intervals ?[place] ? Rate: ? 69 ? P: ?77 OK: ? 168 ?QRS: ?64 QRSD: ? 97 [...] Procedure Note Arie Liriano MD - 01/05/2014 [facility] Test Date: 2014-01-02 Pat Name: JIMENEZ BARKLEY Department: ED Room: [facility] Gender: M Brand Inspector: [id number] : 1955 Requested By: SHANE CR MD Order Number: [id number] Reading MD: ARIE LIRIANO MD Measurements Intervals [place] Rate: 69 P: 77 OK: 168 QRS: 64 QRSD: 97 T: 71 [...] 01-05-14 16:05:43 EDT by ARIE LIRIANO MD. us Shane Cr MD CARDIAC ECG ORDERABLES Final R esult [facility] EKG documented in this encounter Visit [...] 75 mg, oral, DAILY, First dose on 01/03/14 at 0900, Until Discontinued, Routine Given 01/03/2014 [...] CONTINUOUS, Starting on Sun01/02/14 at 1530, Until Sun01/03/14 at 0205 New Bag 01/02/2014 16:06 EDT [...] dose, Starting on Sun01/03/14 at 1132, Until Sun01/03/14 at 1157, Routine 1157 (Given - Provid er: Marito Nair) metoprolol (LOPRESSOR) tablet 25 mg (CANCELED) 25 mg, oral, 2 TIMES DAILY, First dose on Sun01/02/14 at 2100, Until Discontinued, STAT 2020 (Given - Provider: Shakira Camarena RN) metoprolol XL (TOPROL-XL) tablet 75 mg 75 mg, oral, DAILY, First dose on 01/03/14 at 0900, Until Discontinued, Routine 0813 (Given [...] 0205 1606 (New Bag - Provider: Shakira Camarena RN) PRN Medication Order 01/01/2014 01/02/2014 01/03/2014 LORazepam (ATIVAN) injection 1-2 mg (CANCELED) 1-2 mg, intravenous, EVERY 1 HOUR PRN, Starting on Sun01/02/14 at 1506, Until 01/03/14 at 1608, Withdrawal, STAT 2021 (Given - Provider: Shakira Camarena, RN) morphine injection 2-4 mg (CANCELED) 2-4 mg, intravenous, EVERY 5 MIN PRN, Starting on Sun01/02/14 at 1506, Until 01/03/14 at 1608, Pain, STAT 1911 (Given - Provider: Shakira Camarena, RN)2341 (Given - Provider: Rajat Perry, RN) 0315 (Given - Provider: Rajat Perry, NING) documented in this encounter Orders Medications Ordered [...] 12/16 documented in this encounter Care Teams Train Attendant Relationship Specialty [place] [address] [place] [phone] PCP - General 07/15/12 01/02/14 Sai Garg MD [address] [place] [id number] PCP - General 01/03/14 11/11/14 documented as of this encounter
--- OUTSIDE RECORDS SUMMARY | 2024-08-06 12:12 | XMS_ITS | Encounter Summary ---
Author Organization [facility] Address [address] [place] [address] Care Team Providers Care Cereal Miller Name Role Phone Sai Garg MD Primary Care Provi glynn Reason for Referral * (Routine) - Closed Specialty Diagnoses / Procedures Referred By Contac t Referred To Contact Juliocesar Schultz MD Phone: tel: fax: Referral ID Status Reason Start Date Expiration Date V isits Requested Visits Authorized [id number] Closed Specialty Services Required 01/23/2014 1 1 * (Routine) - Closed Specialty Diagnoses / Procedures Referred By Contac t Referred To Contact Juliocesar Schultz MD Phone: tel: fax: Referral ID Status Reason Start Date Expiration Date V isits Requested Visits Authorized [id number] Closed Specialty Services Required 01/23/2014 1 1 * (Routine) - Closed Specialty Diagnoses / Procedures Referred By Contac t Referred To Contact Juliocesar Schultz MD Phone: tel: fax: Referral ID Status Reason Start Date Expiration Date V isits Requested Visits Authorized [id number] Closed Specialty Services Required 01/23/2014 1 1 * Consult (Routine) - Closed Specialty Diagnoses / Procedures Referred By Contac t Referred To Contact Diagnoses ETOH abuse NSTEMI (non-ST elevated myocardial infarction) ([facility]) Juliocesar Schultz MD Phone: tel: fax: Referral ID Status Reason Start Date Expiration Date V isits Requested Visits Authorized [id number] Closed Specialty Services Required 01/22/2014 1 1 Question Answer [facility] Referral - Assessment: CP Status [facility] Referral - Disease Mgmt and Education about: Medication Mgmt Physical therapy is needed for: Evaluation Encounter Details Date Type Department Care Team (Late st Contact Info) Description 01/18/2014 0:04 EDT - 01/23/2014 18:19 EDT Hospital Encounter [facility] Cardiac/Telemetry Unit [address] [place] [address] [id number] Golden Rutherford MD [address] [facility], Level [address] [place] [address] NSTEMI (non-ST elevated myocardial infarction) ([facility]) (Primary Dx); Delirium tremens ([facility]); ETOH abuse; Alcohol withdrawal ([facility]) Discharge Disposition: Home or Self [...] 01/18/2014 0:48 EDT Gabe Robles RN * Are you blind or do you have serious difficulty seeing, even when wearing glasses? Answer Date of Assessment Author No 01/18/2014 0:48 EDT Gabe Robles RN * Do you have serious difficulty walking or climbing stairs? (5 years old or older) Answer Date of Assessment Author No 01/18/2014 0:48 EDT Gabe Robles RN * Do you have difficulty dressing [...] Author No 01/18/2014 0:48 Gabe Gillette RN documented as of this encounter Mental Status * Because of a physical, mental, or emotional condition, do you have serious difficulty concentrating, remembering, or making decisions? (5 years old or older) Answer Entry Date Author No 01/18/2014 0:48 Gabe Gillette RN documented in this encounter Discharge Summaries * Juliocesar Schultz [...] and LV 40%. Patient deemed stable for C, which revealed no significantchange compared to post-PCI [...] mg tablet Commonly known as: PRINIVIL, ZESTRIL What changed: how much to take [...] Patient: Follow-Up Labs and Tests: Home Health Ihdx-Ey-Ueni Encounter: I certify that this patient is under my care and that I, or a Medicare authorized non-physician provider (SYSTEMS SOFTWARE DEVELOPER or PA) working with me, had a [id number] encounter with this patient on 01/23/2014 that was in whole or in part related to the reason the patient needs home health care. The findings of thisencounter indicate that the patient requires assisted or therapist services for the reasons listed below. [facility] services: - are required to train the patient/caregiver to manage the treatment regimen for this illness or condition Skilled therapist services: - are required because of the complexity of the therapy needed to treat the injury, illness or condition Additionally, the findings of this encounter support that the patient is homebound because: - the severity of cardiac or pulmonary disease limits activity tolerance Cosigned by Chico Posey MD at 02/05/2014 12:17 EDT * Lisbeth Lopez, RN - 01/22/2014 0743 EDT YOUR CHRONIC CARE INITIATIVE STACKER OPERATOR: Lisette Garcia [phone] Cosigned by Juliocesar Schultz MD at 01/22/2014 11:50 EDT documented in this encounter Medications at [...] 30 days. 90 Cap 0 01/23/2014 02/22/2014 HYDROcodone-acet aminophen (NORCO) 2.5-325 mg Take 1 [...] Refills Last Filled Start Date End Date Multivitamins with Minerals tablet Take 1 Tab by mouth daily. 30 Tab 0 01/23/2014 mometasone-formote rol (DULERA) 100-5 mcg/actuation Inhale 2 Puffs as directed 2 times daily. 1 Inhaler 0 01/23/2014 HYDROcodone-acetam inophen (NORCO) 2.5-325 mg Take 1 Tab by mouth every 4 hours as needed for Pain. 3 Tab 0 01/23/2014 5 HYDROcodone-acetam inophen (NORCO) 2.5-325 mg Take 1 Tab by mouth every 4 hours. 3 Tab 0 01/23/2014 5 HYDROcodone-acetam inophen (NORCO) 2.5-325 mg Take 1 Tab by mouth every 4 hours. 3 Tab 0 01/23/2014 4 folic acid (FOLVITE) 1 mg tablet Take 1 Tab by mouth daily. 30 Tab 0 01/23/2014 5 thiamine (VITAMIN B1) 100 mg tablet Take 1 Tab by mouth daily. 30 Tab 0 01/23/2014 5 tiotropium (SPIRIVA) 18 mcg inhalation capsule Inhale 1 Cap as directed daily. 1 Box 0 01/23/2014 5 thiamine (VITAMIN B1) 100 mg tablet Take 1 Tab by mouth daily. 30 Tab 0 01/23/2014 4 Multivitamins with Minerals tablet Take 1 Tab by mouth daily. 30 Tab 0 01/23/2014 4 metoprolol XL (TOPROL-XL) 100 mg tablet Take 1 Tab by mouth daily for 30 days. 30 Tab 0 01/23/2014 4 lisinopril (PRINIVIL, ZESTRIL) 20 mg tablet Take 0.5 Tabs by mouth once for 90 days. 90 Tab 0 01/23/2014 4 levothyroxine (SYNTHROID) 75 mcg tablet Take 1 Tab by mouth daily before breakfast. 30 Tab 0 01/23/2014 5 gabapentin (NEURONTIN) 100 mg capsule Take 1 Cap by mouth 3 times daily for 30 days. 90 Cap 0 01/23/2014 4 folic acid (FOLVITE) 1 mg tablet Take 1 Tab by mouth daily. 30 Tab 0 01/23/2014 4 atorvastatin (LIPITOR) 40 mg tablet Take 1 Tab by mouth daily for 30 days. 30 Tab 0 01/23/2014 4 albuterol (VENTOLIN HFA) 90 mcg/actuation inhaler Inhale 2 Puffs as directed 4 times daily as needed for Wheezing. 1 Inhaler 2 01/23/2014 5 documented in this encounter Discharge Disposition Disposition Code Departure Means Destination Home or Self Care documented in this encounter Progress Notes * Lisbeth Lopez RN - 01/26/2014 0832 EDT CM DISCHARGE NOTE: Pt was discharged home with Home Health Services. Lisbeth Lopez RN #[id number] * Alisson Welsh, PT - 01/23/2014 1105 EDT Rehabilitation [facility]rap[facility] Physical Therapy Contact Note Date of Service: 01/23/2014 PT Referral received. Chart reviewed yesterday. Checked in this morning to complete evaluation. Patient just returning to room after [facility]- Discussed mobility status with RN [...] - D/C dilaudid FEN: cardiac diet after LHC Code: FULL DVT PPx: SCDs, hold heparin for LHC Disposition: Pending clinical course Juliocesar Schultz MD 01/23/2014 8:54 PGY1 #[id number] Cosigned by Braydon Putnam MD at 01/27/2014 8:41 EDT * Alisson Welsh, PT - 01/22/2014 5667 EDT [facility] Physical Therapy Contact Note Date of [...] ALISSON WELSH, PT 01/22/2014 16:15 * Lisbeth Lopez RN - 01/22/2014 0942 EDT Brief Case [...] withdrawal. Current Living Arrangements: Patient lives in [place] Current Social, Health Care and Community Supports: [...] Met with patient and explained role. Plan [facility] tomorrow if available. Once stable he will d/c home with home health services for CP assessment, med compliance and PT (patient c/o weak legs and slightly dizzy). Walter can transport. CM will follow. Lisbteh Lopez RN AC #[id number] * Juliocesar Schutlz MD - 01/22/2014 0901 EDT Cardiology progress note CC: CP Dx: NSTEMI 24 hour events: - JEAN-PIERRE Subj: Patient continues to c/o intermittent stabbing pain in his LUQ. C/o 03/26 pain, requests pain meds. Continues to c/o of burning in big toes b/l, chronic. Reports no BM since admission. Frustrated he has to wait until tomorrow for LHC. Denies SOB, CP, palpitations. Review of systems: [...] constipation given no BM in days - senvalencia colace; start miralax - Tylenol prn 1st [...] D/C dilaudid FEN: NPO at midnight for LHC Code: FULL DVT PPx: heparin 5000 U BID, SCDs Disposition: Pending clinical course Juliocesar Schultz MD 01/22/2014 9:01 PGY1 #[id number] Cosigned by Chico Posey MD at 01/25/2014 7:08 EDT * Juliocesar Schultz MD - 01/21/2014 1518 [...] uric acid ETOH Abuse: DTs resolved - CINC protocol - daily MVM, folic acid and [...] wall - D/C dilaudid FEN: NPO for LHC Code: FULL DVT PPx: hold heparin in setting of worsening thrombocytopenia, SCDs Disposition: Pending clinical course Juliocesar Schultz MD 01/21/2014 8:00 PGY1 #3059 Reviewed with cards fellow. Pt seen and examined. May be able to eval pt via cardiolite and risk stratify. Pt seen and examined and otherwise as above. Chico Posey MD Cardiology Pager [phone] [facility] * Chico Posey MD - 01/20/2014 0908 [...] course Juliocesar Schultz MD 01/20/2014 9:08 PGY1 #0256 Pt seen and examined. Agree with above. Still a bit agitated. Thoughts wonder, some difficulty with place and time/yr VSS Agree with stopping heparin. Arrangements underway for medicine eval. Will defer cath for now and reconsider each am depending on status. Chico Posey MD Cardiology Pager [phone] [facility] * Juliocesar Schultz MD - 01/19/2014 5776 EDT Cards update note - continued to have DTs, requiring max dosing of Valium per CIWA, give additional prn Valium as patient is protecting airway if agitated - labetalol 20 mg q4hr prn SBP >160 - clonidine 0.2 mg qdaily started as BP not controlled - hold off on [facility] until patient is no longer withdrawing - D5-NS 100 cc/hr x 1L, poor PO intake - restart diet, NPO after midnight Juliocesar Schultz MD 01/19/2014 19:10 * Lisbeth Lopez, NING - 01/19/2014 1157 EDT 01/19: Received call [...] also like us to send him to [facility] and scare him so he doesn't go back to drinking. Jimenez will call me later today with list of missing meds. I will follow up with Jimenez once his mental status has improved. Lisbeth Lopez RN [facility] #[id number] * Chico Posey MD - 01/19/2014 1136 [...] BID Meg Pringle, RT 2 Puff at 01/18/142034 ??? Multivitamins with Minerals tablet 1 Tab [...] BID Sridevi Alvarez MD 150 mg at 01/18/142030 ??? senna (SENOKOT) tablet 1 Tab 1 [...] capsule 18 mcg 18 mcg inhalation DAILY Privee, Meg L., RT 18 mcg at 01/18/14 1810 Examination: [...] cath tomorrow. Chico Posey MD Cardiology Pager [phone] [facility] * Lisbeth Lopez RN - 01/19/2014 9713 EDT 01/19: Patient withdrawing, agitated and in restraints. No family/friends listed. Will wait until he's cleared to meet. Lisbeth Lopez RN [facility] #[id number] * Gerhard Willett MD - 01/18/2014 8798 EDT Cardiology progress note CC: CP Dx: [...] tablet 75 mg 75 mg oral DAILY Sirdevi Alvarez MD 75 mg at 01/18/14 0858 ??? docusate sodium (COLACE) capsule 100 mg 100 mg oral DAILY Sridevi Alvarez MD 100 mg at 01/18/14 0858 ??? fluticasone (FLOVENT HFA) 44 mcg/actuation inhaler 1 Puff 1 Puff inhalation BID Meg Pringle, RT ??? folic acid (FOLVITE) tablet 1 [...] BEFORE BREAKFAST Sridevi Alvarez MD 75mcg at 01/18/1459 ??? lidocaine 5 % (LIDODERM) patch 1 [...] DAILY Sridevi Alvarez MD 1 Tab at 01/18/14858 ??? nicotine (NICODERM CQ) 21 mg/24 hr patch 1 Patch 1 Patch transdermal DAILY Sridevi Alvarez MD 1 Patch at 01/18/14858 ??? nicotine (NICOTROL) 10 mg inhaler 1 [...] Trend CE's - NPO at midnight for [facility] tomorrow ETOH Abuse: - CINC protocol - daily MVM, folic acid and [...] Notes * Golden Ellison MD - 01/17/2014 3797 EDT Cardiology Admission H&P Admission Date: 01/18/2014 [...] also received morphine prior to arrival at [facility]. Currently, he reports continued 8/10 left sided chest pain which is unrelieved by morphine and by any of the interventions at the OSH. He reports his last drink containing alcohol was at 9am this morning and he had 3 beers. Prior Cardiac Imaging: [facility] 12/2013: Diagnostic Cardiac Study Results [...] on file Social History Narrative Lives in [place], [place] in a trailer. Lives with a [...] 40.9 PLT 114* MCV 93 Recent Labs 01/18/14101 NA 143 K 3.8 CL 107 CO2 22* BUN 3* CREATININE 0.53* Recent Labs 01/18/14101 INR 1.0 PTT 141* Recent Labs 01/18/14101 AST 68* ALT 78* ALKPHOS 75 Recent Labs 01/18/14 010 CK 113 TROPONINI 0.383* BMP: Recent Labs 01/18/14101 NA 143 K 3.8 CL 107 CO2 22* BUN 3* CREATININE 0.53* MG 2.1 LFTs: Lab Results Component Value Date/Time ALT 78* 01/18/2014 0102 AST 68* 01/18/2014 0102 ALKPHOS 75 01/18/2014 0102 Cardiac Biomarkers: Recent Labs 01/18/14101 CK 113 MB 2.62 TROPONINI 0.383* Ethanol [...] Pending clinical course Above plan discussed with wink cutter operator, Dr Wesley Alvarez MD PGY-3 # [id number] Patient seen and evaluated. Agree with findings assessment and plan as outlined above. Chest pain and positive troponin after recent stent placement. Will proceed with cath Sunday. Golden Ellison MD Attending in Cardiology documented in this encounter Procedure Notes * Elias Glass Jr., MD - 01/23/2014 1042 EDT Cardiovascular Catheterization Laboratory Preliminary Report -- [...] artery Procedure: He was brought to the [facility] Cardiac Catheterization Laboratory for the procedure: [...] documented in this encounter Consult Notes * Rosendo Herzog MD - 01/20/2014 1317 EDT MEDICINE [...] is being treated with benzodiazepines on the [facility] protocol. Per the MAR history, the patient [...] for recommendations regarding management of alcohol withdrawal. [facility] Patient Active Problem List Diagnosis Date Noted [...] bilateral lower extremities. Data Review Recent Labs 01/18/1464201/19/14 0540 01/20/14 0802 WBC 5.19 5.89 7.67 [...] this interval not displayed. Recent Labs 01/18/14 010 ALKPHOS 75 AST 68* ALT 78* Recent [...] yesterday evening. Appears clinically stable - Continue CINC protocol with medications. - Continue daily multivitamin, folic acid and thiamine supplementation - Check magnesium and phosphorous - No indication to transfer to medicine service at this time Thank you for this consult. We will sign off. Please call if new questions arise. Discussed with Medicine Attending, Dr Earle Alvarez MD PGY-3 # [id number] Medicine consult service I have reviewed the previous notes, labs and radiology data. I have seen and examined the patient and agree with the assessment and plan as mentioned above in Dr Alvarez's note above. Changes are noted in underline. Pt very cooperative and without any increased sympathetic activity. Agree to cont CIWA/diazepam as needed D/w primary team ROSENDO HERZOG MD documented in this encounter Miscellaneous [...] discharge and every two hours while on PROFESSOR OF FINE ART or epidural. D: patient complains of 6/10 back pain A: prn tylenol given. R: will ctm and assess. * Plan of Care - Flora Souza RN - 01/22/2014 1614 EDT Problem: PAIN Goal: Patient???s Pain And Discomfort Are Adequately Managed Outcome: Ongoing D pt c/o lower back pain 04/26 A offered pt tylenol as ordered pt declined stating tylenol does nothing for me, paged Dr Willett and notified of pain, no new orders at this time. R will continue to monitor. * Plan of Care - Kristel Huang, NING - 01/22/2014 1121 EDT Problem: CIRCULATORY STATUS [...] Uses call appropriately, Informed by MD that [facility] will take place tomorrow, 01/23. Met with [employer]. Action: Assessment completed, meds given. DC planning [...] withdrawal. Pt no longer scoring today, plan [facility] a.m. Pt sleeping, NAD, bed [...] continuing need for restraint and document per [facility] policy Data: Pt has not been scoring on CIWA and has been appropriate this afternoon. Action: Posy vest restraint removed and Pt instructed to call when he needs to get up an ambulate. Pt continues to have a 1:1 DIETICIAN sitter. Response: Pt said he understood and [...] posy vest. Action: VS and assessment completed. DIETICIAN sitter in the room with the Pt. Response: Pt anxious and confused. Marito Nair RN 01/20/2014 10:00 * Plan of Care - Jovan Welch, RN - 01/19/2014 2033 EDT ME508/01 Jimenez Barkley 58 y.o. male Length of Stay: 2 day(s) Admitted: 01/18/2014 0:04 Service: Cardiology Code Status: Full Code 20:34-- Data: Pt swearing, thrashing, repeatedly trying to get out of foot-end of bed, while wearing [place] vest. He disconnected IV and pulled off [...] - Luis F Elizabeth RN - 01/19/2014 0958 EDT Problem: Restraint Management Goal: Maintain Patient???s [...] Pt continues to be verbally abusive to DIETICIAN sitter who was helping him sit up to eat. * Plan of Care - Luke Cooper RN - 01/19/2014 0243 EDT Problem: CIRCULATORY STATUS Goal: Patient Has [...] protocol continued. VS and assessment documented. Call moss withinreach. 1:[address]; bed alarm [...] Care - Lubna Gaines RN - 01/18/2014 3089 EDT Problem: FALL RISK Goal: Patient will Remain Free of Falls due to Confusion Add only for + Hendrich score Intervention: Call moss review and return demo D: Pt impulsive and disroiented (drank from his urinal) but is A+Ox2 (name and place). Pt remains with score of 0 on CIWA scoring. Pt continues to be incontinent in bed. A: Bed alarm on. Pt reinforced teaching on Fall risk and need for bed alarm. Pt cleaned up, linens changed. R: Will CTM. [facility] RN * Plan of Care - Chico Corrales RN - 01/18/2014 3518 EDT Problem: CIRCULATORY STATUS Goal: Patient Has Stable Vital Signs And Fluid Balance Outcome: Ongoing Data: Patient arrived to [place] [address]. Patient is in NSR with a HR [...] 500 mL IV NS bolus as per x1 order - will continue to monitor. documented in this encounter Plan of Treatment Pending Results Name Type Priority Associated Diagnoses Date /Time OUTSIDE IMAGES - OTHER CHEST Imaging 01/17/2014 22:21 EDT OUTSIDE IMAGES - OTHER CHEST Imaging 01/17/2014 22:25 EDT Scheduled Referrals Name Type Priority Associated Diagnoses Order Schedule FROM IP - AMB CONS/FOLLOW UP HOME HEALTH SERVICES Outpatient Referral Routine ETOH abuse NSTEMI (non-ST elevated myocardial infarction) ([facility]) Ordered: 01/22/2014 PROVIDER FOLLOW-UP INSTRUCTIONS Outpatient Referral [...] (09/29/2015 13:24 EST) 09/29/2015 13:2 4 EST us Scan 2 Stock Crane Operator PROCEDURE/MINOR SURGICAL OR DERABLES Final Result * STRESS TEST - SCANNED (02/03/2014 9:21 EDT) Anatomical Region Laterality Modality Other 02/03/2014 9:21 EDT us Scan 2 Stock Crane Operator IMG OTHER IMAGING ORDERABLE S Final Result * INVASIVE CARDIOLOGY REPORT-SCANNED (01/27/2014 11:34 EDT) 01/27/2014 11:3 4 EDT us Scan 2 Stock Crane Operator PROCEDURE/MINOR SURGICAL OR DERABLES Final Result * ECG REPORT - SCANNED (01/27/2014 11:34 EDT) 01/27/2014 11:3 4 EDT us Scan 2 Stock Crane Operator PROCEDURE/MINOR SURGICAL OR DERABLES Final Result * ECG REPORT - SCANNED (01/27/2014 11:34 EDT) 01/27/2014 11:3 4 EDT us Scan 2 Stock Crane Operator PROCEDURE/MINOR SURGICAL OR DERABLES Final Result * LEFT HEART CATH (01/23/2014 11:39 EDT) Anatomical Region Laterality Modality Other 01/23/2014 11:3 9 EDT Narrative 01/23/2014 19:48 EDT [address] [place] [address] Catheterization Laboratory Study Patient: Jimenez Barkley ? Study Date: ?01/23/2014 ?Accession #: ? [id number] : ? 1955 Diagnostic Attending: ??Elias Glass [...] after PCI. SUMMARY: 1. HPI and indications: Wam-MF-ylixnaiv myocardial infarction. 2. 2nd obtuse marginal: Ostial lesion: There is a 55% stenosis. This lesion is ?? unchanged from a prior study. RECOMMENDATIONS: Patient management should include medical therapy. HISTORY: Ixr-GB-lzkwsdqb myocardial infarction. ??PMH: ?? Chronic lung disease. [...] Right radial artery access. A 6 FR/10 F[employer] Sheath [place] SS .021 sheath was ?? advanced into [...] MD 2014-01-23 19:47 Procedure Note 01/23/[address] [place] [address] Catheterization Laboratory Study Patient: Jimenez Barkley Study [...] after PCI. SUMMARY: 1. HPI and indications: Ruh-PX-nyhfqtwa myocardial infarction. 2. 2nd obtuse marginal: Ostial lesion: There is a 55% stenosis. Thislesion is unchanged from a prior study. RECOMMENDATIONS: Patient management should include medical therapy. HISTORY: Zrh-IO-tltoivyk myocardial infarction. PMH: Chronic lung disease.Functional status: [...] Right radial artery access. A 6 FR/10 Terum[employer] Sheath [place] SS .021sheath was advanced into the vessel. [...] by Elias Glass Jr., MD 2014-01-23 19:47 us Lexi Cade MD CARDIAC CATH ORDERABLES Final Re sult * CREATININE (01/23/2014 6:20 EDT) Creatinine 0.74 0.66 - 1.25 mg/dl [facility] GFR, Calculated >60 >60 ml/min/1.7 3m2 [facility] Blood specimen (specimen) 01/23/2014 6:20 EDT 01/23/2014 6:38 EDT Sridevi Alvarez MD CHEMISTRY & BLOOD GAS ORDERABL ES Final Result Performing Organization Address [facility] de Phone Number [facility] [address] [place] [address] * BUN (01/23/2014 6:20 EDT) BUN 18 10 - 26 mg/dl [facility] Blood specimen (specimen) 01/23/2014 6:20 EDT 01/23/2014 6:38 EDT Sridevi Alvarez MD CHEMISTRY & BLOOD GAS ORDERABL ES Final Result Performing Organization Address [facility] de Phone Number [facility] [address] [place] [address] * ELECTROLYTES (01/23/2014 6:20 EDT) Sodium 136 136 - 145 mEq/L [facility] Potassium 4.6 3.5 - 5.0 mEq/L [facility] Chloride 103 96 - 110 mEq/L [facility] CO2 24 24 - 32 mEq/L [facility] Blood specimen (specimen) 01/23/2014 6:20 EDT 01/23/2014 6:38 EDT Sridevi Alvarez MD CHEMISTRY & BLOOD GAS ORDERABL ES Final Result Performing Organization Address [facility] de Phone Number [facility] [address] [place] [address] * (ABNORMAL) HEMAGRAM (01/23/2014 6:20 EDT) WBC 6.92 4.0 - 10.4 K/cmm [facility] RBC 4.19(L) 4.36 - 5.78 M/cmm [facility] Hemoglobin 13.4(L) 13.8 - 17.3 gm/dl [facility] HCT 39.0(L) 39.5 - 50.2 % [facility] MCV 93 81 - 95 fl [facility] MCH 32.0 27.6 - 33.0 pg [facility] MCHC 34.3 32.8 - 36.4 gm/dl [facility] PLT 96(L) 141 - 320 K/cmm [facility] RDW-CV 14.1 11.8 - 14.1 % [facility] Blood specimen (specimen) 01/23/2014 6:20 EDT 01/23/2014 6:38 EDT Sridevi Alvarez MD HEMATOLOGY & PF4 ORDERABLES Fi nal Result Performing Organization Address [facility] Co de Phone Number [facility] [address] [place] [address] * INPATIENT ADD-ON (01/22/2014 7:25 EDT) Tests to be added PHOSPHOROUS [facility] Number for problems M5 [facility] Accession number [id number] [facility] 01/22/2014 7:25 EDT 01/22/2014 7:26 EDT us Juliocesar Schultz MD HEMATOLOGY & PF4 ORDERABLE S Final Result Performing Organization Address [facility] Co de Phone Number [facility] [address] [place] [address] * PHOSPHORUS (01/22/2014 6:21 EDT) Phosphorus 4.5 2.5 - 4.5 mg/dl [facility] 01/22/2014 6:21 EDT 01/22/2014 6:59 EDT Sridevi Alvarez MD CHEMISTRY & BLOOD GAS ORDERABL ES Final Result Performing Organization Address [facility] Co de Phone Number [facility] [address] [place] [address] * MAGNESIUM (01/22/2014 6:21 EDT) Magnesium 1.7 1.7 - 2.8 mg/dl [facility] Blood specimen (specimen) 01/22/2014 6:21 EDT 01/22/2014 6:59 EDT Juliocesar Schultz MD CHEMISTRY & BLOOD GAS ORDE RABLES Final Result Performing Organization Address [facility] Co de Phone Number [facility] [address] [place] [address] * CREATININE (01/22/2014 6:21 EDT) Pathologist [facility] [place] Creatinine 0.70 0.66 - 1.25 mg/dl [facility] GFR, Calculated >60 >60 ml/min/1.7 3m2 [facility] Blood specimen (specimen) 01/22/2014 6:21 EDT 01/22/2014 6:59 EDT Sridevi Alvarez MD CHEMISTRY & BLOOD GAS ORDERABL ES Final Result Performing Organization Address [facility] de Phone Number [facility] [address] [place] [address] * BUN (01/22/2014 6:21 EDT) Pathologist [facility] [place] BUN 15 10 - 26 mg/dl [facility] Blood specimen (specimen) 01/22/2014 6:21 EDT 01/22/2014 6:59 EDT Sridevi Alvarez MD CHEMISTRY & BLOOD GAS ORDERABL ES Final Result Performing Organization Address [facility] Co de Phone Number [facility] [address] [place] [address] * (ABNORMAL) ELECTROLYTES (01/22/2014 6:21 EDT) Pathologist [facility] [place] Sodium 136 136 - 145 mEq/L [facility] Potassium 4.1 3.5 - 5.0 mEq/L [facility] Chloride 104 96 - 110 mEq/L [facility] CO2 22(L) 24 - 32 mEq/L [facility] Blood specimen (specimen) 01/22/2014 6:21 EDT 01/22/2014 6:59 EDT Sridevi Alvarez MD CHEMISTRY & BLOOD GAS ORDERABL ES Final Result Performing Organization Address [facility] de Phone Number [facility] [address] [place] [address] * (ABNORMAL) HEMAGRAM (01/22/2014 6:21 EDT) Pathologist [facility] [place] WBC 7.81 4.0 - 10.4 K/cmm [facility] RBC 4.31(L) 4.36 - 5.78 M/cmm [facility] Hemoglobin 14.1 13.8 - 17.3 gm/dl [facility] HCT 40.5 39.5 - 50.2 % [facility] MCV 94 81 - 95 fl [facility] MCH 32.7 27.6 - 33.0 pg [facility] MCHC 34.9 32.8 - 36.4 gm/dl [facility] PLT 78(L) 141 - 320 K/cmm [facility] RDW-CV 14.0 11.8 - 14.1 % [facility] Blood specimen (specimen) 01/22/2014 6:21 EDT 01/22/2014 6:59 EDT Sridevi Alvarez MD HEMATOLOGY & PF4 ORDERABLES Fi nal Result Performing Organization Address [facility] de Phone Number [facility] [address] [place] [address] * RIBS UNI 2 VIEWS LEFT (01/21/2014 [...] above interpretation and agree with the findings. us Juliocesar Schultz MD IMG DIAGNOSTIC IMAGING ORD ERABLES Final Result * NM CARDIAC SPECT STUDY WAVEFORM (01/21/2014 11:33 EDT) Anatomical Region Laterality Modality Other 01/21/2014 11:3 3 EDT Narrative 01/21/2014 11:38 EDT For report of this Waveform, see associated Image Study. ?[facility] ? Test Date: ?2014-01-21 Pat Name: ? JIMENEZ BARKLEY ? Department: ?? STRESS ? Room: ? Gender: ? M ?Valet Parker: ?[id number] : ?1955 ? Requested By: GISELLE PAYNE Order Number: [id number] ?Gwen CRAFT: ? Interpretive Statements Procedure Note 01/21/2014 For report of this Waveform, see associated Image Study. Jacob Eubanks Stress Test Date: 2014-01-21 Pat Name: JIMENEZ BARKLEY Department: STRESS Room: Gender: M Valet Parker: [id number] : 1955 Requested By: GISELLE PAYNE Order Number: [id number] Gwen CRAFT: Interpretive Statements Kenyon Sullivan MD CARDIAC NM ORDERABLES Final Result * NM CARDIAC SPECT STUDY (01/21/2014 9:53 EDT) Anatomical Region Laterality Modality Other 01/21/2014 9:53 EDT Narrative 01/21/2014 14:55 EDT *[facility]* [address] [place] [address] *Interpreting Groups:* *[facility] and Department of Radiology* Myocardial [...] History: ??58 y.o male recent discharge from [facility] on 01/03/14 with NSTEMI s/p [...] +------+ + 8 min ?? 76 110/64 (79) ? +--------+--+ + +------+ + 9 min [...] of this study was interpreted by Nuclear Jig Box Operator ??Germain Ayala. - The imaging portion of this study was interpreted by Nuclear Radiologist ??Aayush Carpenter. - The Stress ECG portion of this study was interpreted by Dr. Groves ?Demian. Electronically signed by Germain Ayala MD 01/21/2014 14:55 Procedure Note 01/21/2014 *[facility]* [address] [place] [address] *Interpreting Groups:* *[facility] and Department [...] History: 58 y.o male recent discharge from [facility] on 01/03/14 with NSTEMIs/p PCI [...] 01/21/2014 14:55 Kenyon Sullivan MD CARDIAC NM ORDERABLES Final Result * INPATIENT ADD-ON (01/21/2014 8:05 EDT) Tests to be added URIC ACID [facility] Number for problems [id number] [facility] Accession number [id number] [facility] 01/21/2014 8:05 EDT 01/21/2014 8:06 EDT Juliocesar Schultz MD HEMATOLOGY & PF4 ORDERABLE S Final Result Performing Organization Address [facility] Co de Phone Number [facility] [address] [place] [address] * CK MB WITH TOTAL CK (01/21/2014 7:28 EDT) Pathologist [facility] [place] CK 101 0 - 250 U/L [facility] MB 0.37 <4.21 ng/ml [facility] Blood specimen (specimen) 01/21/2014 7:28 EDT 01/21/2014 7:34 EDT us Kenyon Sullivan MD CHEMISTRY & BLOOD GAS ORDERA BLES Final Result Performing Organization Address [facility] de Phone Number [facility] [address] [place] [address] * INPATIENT ADD-ON (01/21/2014 6:45 EDT) [facility] Tests to be added MAGNESIUM [facility] Number for problems [id number] [facility] Accession number [id number] [facility] 01/21/2014 6:45 EDT 01/21/2014 6:47 EDT Lexi Cade MD HEMATOLOGY & PF4 ORDERABLES Naomi l Result Performing Organization Address [facility] de Phone Number [facility] [address] [place] [address] * URIC ACID (01/21/2014 6:01 EDT) [facility] Uric Acid 4.1 3.9 - 9.0 mg/dl [facility] 01/21/2014 6:01 EDT 01/21/2014 6:16 EDT Sridevi Alvarez MD CHEMISTRY & BLOOD GAS ORDERABL ES Final Result Performing Organization Address [facility] Co de Phone Number [facility] [address] [place] [address] * (ABNORMAL) MAGNESIUM (01/21/2014 6:01 EDT) Magnesium 1.6(L) 1.7 - 2.8 mg/dl [facility] 01/21/2014 6:01 EDT 01/21/2014 6:16 EDT Sridevi Alvarez MD CHEMISTRY & BLOOD GAS ORDERABL ES Final Result Performing Organization Address [facility] de Phone Number [facility] [address] [place] [address] * CREATININE (01/21/2014 6:01 EDT) Pathologist [facility] [place] Creatinine 0.70 0.66 - 1.25 mg/dl [facility] GFR, Calculated >60 >60 ml/min/1.7 3m2 [facility] Blood specimen (specimen) 01/21/2014 6:01 EDT 01/21/2014 6:16 EDT Sridevi Alvarez MD CHEMISTRY & BLOOD GAS ORDERABL ES Final Result Performing Organization Address [facility] de Phone Number [facility] [address] [place] [address] * BUN (01/21/2014 6:01 EDT) Pathologist [facility] [place] BUN 15 10 - 26 mg/dl [facility] Blood specimen (specimen) 01/21/2014 6:01 EDT 01/21/2014 6:16 EDT Sridevi Alvarez MD CHEMISTRY & BLOOD GAS ORDERABL ES Final Result Performing Organization Address [facility] de Phone Number [facility] [address] [place] [address] * (ABNORMAL) ELECTROLYTES (01/21/2014 6:01 EDT) Pathologist [facility] [place] Sodium 135(L) 136 - 145 mEq/L [facility] Potassium 4.0 3.5 - 5.0 mEq/L [facility] Chloride 103 96 - 110 mEq/L [facility] CO2 23(L) 24 - 32 mEq/L [facility] Blood specimen (specimen) 01/21/2014 6:01 EDT 01/21/2014 6:16 EDT Sridevi Alvarez MD CHEMISTRY & BLOOD GAS ORDERABL ES Final Result Performing Organization Address [facility] de Phone Number [facility] [address] [place] [address] * (ABNORMAL) HEMAGRAM (01/21/2014 6:01 EDT) WBC 9.39 4.0 - 10.4 K/cmm [facility] RBC 4.29(L) 4.36 - 5.78 M/cmm [facility] Hemoglobin 13.9 13.8 - 17.3 gm/dl [facility] HCT 40.2 39.5 - 50.2 % [facility] MCV 94 81 - 95 fl [facility] MCH 32.4 27.6 - 33.0 pg [facility] MCHC 34.5 32.8 - 36.4 gm/dl [facility] PLT 67(L) 141 - 320 K/cmm [facility] RDW-CV 14.1 11.8 - 14.1 % [facility] Blood specimen (specimen) 01/21/2014 6:01 EDT 01/21/2014 6:16 EDT Sridevi Alvarez MD HEMATOLOGY & PF4 ORDERABLES Fi nal Result Performing Organization Address [facility] de Phone Number [facility] [address] [place] [address] * INPATIENT ADD-ON (01/21/2014 2:10 EDT) Tests to be added MAGNESIUM, PHOSPHOROU S [facility] Number for problems Not Given [facility] Accession number [id number] [facility] 01/21/2014 2:10 EDT 01/21/2014 2:42 EDT Ghulam Ray MD HEMATOLOGY & PF4 ORDERABLES Final Result Performing Organization Address [facility] Co de Phone Number [facility] [address] [place] [address] * INPATIENT ADD-ON (01/20/2014 9:10 EDT) Tests to be added PERIPHERAL SMEAR REVIEW FOR THROMBOCYTOPENIA [facility] Number for problems [id number] [facility] Accession number [id number] [facility] 01/20/2014 9:10 EDT 01/20/2014 9:11 EDT us Juliocesar Schultz MD HEMATOLOGY & PF4 ORDERABLE S Final Result Performing Organization Address [facility] de Phone Number [facility] [address] [place] [address] * PHOSPHORUS (01/20/2014 8:02 EDT) Phosphorus 4.5 2.5 - 4.5 mg/dl [facility] 01/20/2014 8:02 EDT 01/20/2014 8:14 EDT Sridevi Alvarez MD CHEMISTRY & BLOOD GAS ORDERABL ES Final Result Performing Organization Address [facility] de Phone Number [facility] [address] [place] [address] * (ABNORMAL) MAGNESIUM (01/20/2014 8:02 EDT) Magnesium 1.6(L) 1.7 - 2.8 mg/dl [facility] 01/20/2014 8:02 EDT 01/20/2014 8:14 EDT Sridevi Alvarez MD CHEMISTRY & BLOOD GAS ORDERABL ES Final Result Performing Organization Address [facility] de Phone Number [facility] [address] [place] [address] * PROSPER DIFF COMMENT (01/20/2014 8:02 EDT) [...] EDT Sridevi Alvarez MD HEMATOLOGY & PF4 ORDERABLES Ed ited Result - Final Performing Organization Address [facility] de Phone Number [facility] [address] [place] [address] * SLIDE REQUEST (01/20/2014 8:02 EDT) Note A smear is filed in the Hematology lab [facility] 01/20/2014 8:02 EDT 01/20/2014 8:14 EDT Sridevi Alvarez MD HEMATOLOGY & PF4 ORDERABLES Fi nal Result Performing Organization Address [facility] de Phone Number [facility] [address] [place] [address] * (ABNORMAL) PTT (01/20/2014 8:02 EDT) PTT 59(H) 26 - 37 secs [facility] Comment:Therapeutic Heparin range: 65-100 seconds Blood specimen (specimen) 01/20/2014 8:02 EDT 01/20/2014 8:14 EDT Sridevi Alvarez MD HEMATOLOGY & PF4 ORDERABLES Fi nal Result Performing Organization Address [facility] de Phone Number [facility] [address] [place] [address] * (ABNORMAL) CREATININE (01/20/2014 8:02 EDT) Creatinine 0.63(L) 0.66 - 1.25 mg/dl [facility] GFR, Calculated >60 >60 ml/min/1.7 3m2 [facility] Blood specimen (specimen) 01/20/2014 8:02 EDT 01/20/2014 8:14 EDT Sridevi Alvarez MD CHEMISTRY & BLOOD GAS ORDERABL ES Final Result Performing Organization Address [facility] de Phone Number [facility] [address] [place] [address] * BUN (01/20/2014 8:02 EDT) BUN 10 10 - 26 mg/dl [facility] Blood specimen (specimen) 01/20/2014 8:02 EDT 01/20/2014 8:14 EDT Sridevi Alvarez MD CHEMISTRY & BLOOD GAS ORDERABL ES Final Result Performing Organization Address [facility] de Phone Number [facility] [address] [place] [address] * ELECTROLYTES (01/20/2014 8:02 EDT) Sodium 138 136 - 145 mEq/L [facility] Potassium 3.8 3.5 - 5.0 mEq/L [facility] Chloride 104 96 - 110 mEq/L [facility] CO2 25 24 - 32 mEq/L [facility] Blood specimen (specimen) 01/20/2014 8:02 EDT 01/20/2014 8:14 EDT Sridevi Alvarez MD CHEMISTRY & BLOOD GAS ORDERABL ES Final Result Performing Organization Address [facility] de Phone Number [facility] [address] [place] [address] * (ABNORMAL) HEMAGRAM (01/20/2014 8:02 EDT) WBC 7.67 4.0 - 10.4 K/cmm [facility] RBC 4.33(L) 4.36 - 5.78 M/cmm [facility] Hemoglobin 14.1 13.8 - 17.3 gm/dl [facility] HCT 40.8 39.5 - 50.2 % [facility] MCV 94 81 - 95 fl [facility] MCH 32.5 27.6 - 33.0 pg [facility] MCHC 34.5 32.8 - 36.4 gm/dl [facility] PLT 69(L) 141 - 320 K/cmm [facility] RDW-CV 14.0 11.8 - 14.1 % [facility] Blood specimen (specimen) 01/20/2014 8:02 EDT 01/20/2014 8:14 EDT us Sridevi Alvarez MD HEMATOLOGY & PF4 ORDERABLES Fi nal Result Performing Organization Address [facility] Co de Phone Number [facility]OB [facility] [address] [place] [address] * ECG REPORT - SCANNED (01/19/2014 14:15 EDT) 01/19/2014 14:1 5 EDT us Scan 2 Stock Crane Operator PROCEDURE/MINOR SURGICAL OR DERABLES Final Result * (ABNORMAL) CK MB WITH TOTAL CK (01/19/2014 13:52 EDT) CK 444(H) 0 - 250 U/L [facility] MB 1.89 <4.21 ng/ml [facility] Blood specimen (specimen) 01/19/2014 13:52 EDT 01/19/2014 14:23 EDT us Kenyon Sullivan MD CHEMISTRY & BLOOD GAS ORDERA BLES Final Result Performing Organization Address [facility] Co de Phone Number [facility] [address] [place] [address] * (ABNORMAL) PTT (01/19/2014 5:40 EDT) PTT 65(H) 26 - 37 secs [facility] Comment:Therapeutic Heparin range: 65-100 seconds Blood specimen (specimen) 01/19/2014 5:40 EDT 01/19/2014 5:55 EDT Sridevi Alvarez MD HEMATOLOGY & PF4 ORDERABLES Fi nal Result Performing Organization Address [facility] Phone Number [facility] [address] [place] [address] * (ABNORMAL) CREATININE (01/19/2014 5:40 EDT) Creatinine 0.60(L) 0.66 - 1.25 mg/dl [facility] GFR, Calculated >60 >60 ml/min/1.7 3m2 [facility] Blood specimen (specimen) 01/19/2014 5:40 EDT 01/19/2014 5:55 EDT Sridevi Alvarez MD CHEMISTRY & BLOOD GAS ORDERABL ES Final Result Performing Organization Address [facility] Phone Number [facility] [address] [place] [address] * BUN (01/19/2014 5:40 EDT) BUN 10 10 - 26 mg/dl [facility] Blood specimen (specimen) 01/19/2014 5:40 EDT 01/19/2014 5:55 EDT Sridevi Alvarez MD CHEMISTRY & BLOOD GAS ORDERABL ES Final Result Performing Organization Address [facility] Phone Number [facility] [address] [place] [address] * ELECTROLYTES (01/19/2014 5:40 EDT) Sodium 138 136 - 145 mEq/L [facility] Potassium 3.6 3.5 - 5.0 mEq/L [facility] Chloride 104 96 - 110 mEq/L [facility] CO2 25 24 - 32 mEq/L [facility] Blood specimen (specimen) 01/19/2014 5:40 EDT 01/19/2014 5:55 EDT Sridevi Alvarez MD CHEMISTRY & BLOOD GAS ORDERABL ES Final Result Performing Organization Address [facility] Co de Phone Number [facility] [address] [place] [address] * (ABNORMAL) HEMAGRAM (01/19/2014 5:40 EDT) WBC 5.89 4.0 - 10.4 K/cmm [facility] RBC 4.40 4.36 - 5.78 M/cmm [facility] Hemoglobin 14.0 13.8 - 17.3 gm/dl [facility] HCT 40.9 39.5 - 50.2 % [facility] MCV 93 81 - 95 fl [facility] MCH 31.8 27.6 - 33.0 pg [facility] MCHC 34.2 32.8 - 36.4 gm/dl [facility] PLT 83(L) 141 - 320 K/cmm [facility] RDW-CV 14.0 11.8 - 14.1 % [facility] Blood specimen (specimen) 01/19/2014 5:40 EDT 01/19/2014 5:55 EDT us Sridevi Alvarez MD HEMATOLOGY & PF4 ORDERABLES Fi nal Result Performing Organization Address [facility] Co de Phone Number [facility] [address] [place] [address] * LIPID PROFILE (INCLUDES CHOLESTEROL, TRIGLYCERIDES, HDL, LDL) (01/19/2014 5:40 EDT) Cholesterol 162 mg/dl [facility] Comment: Desirable:<200 Borderline High:200-239 High:>dk=494 Triglycerides 89 mg/dl CHAVA DRAKE [facility] Comment: Normal:<150 Borderline High:150-199 High:200-499 Very High:>pp=536 HDL 102 mg/dl [facility] Comment: Low:<40 Normal:40-60 Desirable: >60 LDL, Calculated 42 mg/dl [facility]ON [facility] Comment: Optimal:<100 Near Optimal:100-129 Borderline High:130-159 High:160-189 Very High:>el=233 Chol/HDL Ratio 1.6 ULISES EBUANKS [facility] Fasting? Unknown [facility] Non HDL Cholesterol 60 mg/dl [facility] Comment: Desirable:<130 Borderline:130-159 High: 160-189 Very High: >dl=243 Blood specimen (specimen) 01/19/2014 5:40 EDT 01/19/2014 5:55 EDT Sridevi Alvarez MD CHEMISTRY & BLOOD GAS ORDERABL ES Final Result Performing Organization Address [facility] de Phone Number JAMES [facility] [address] [place] [address] * (ABNORMAL) PTT (01/18/2014 16:43 EDT) PTT 98(H) 26 - 37 secs [facility]ACOB [facility] Comment:Therapeutic Heparin range: 65-100 seconds Blood specimen (specimen) 01/18/2014 16:43 EDT 01/18/2014 16:53 EDT Golden Rutherford MD HEMATOLOGY & PF4 ORDERABLES Final Result Performing Organization Address [facility] de Phone Number [facility] [address] [place] [address] * (ABNORMAL) TROPONIN I (01/18/2014 13:58 EDT) Troponin I (ng/mL) 0.260(H) <0.034 ng/ml [facility] 01/18/2014 13:5 8 EDT 01/18/2014 14:35 EDT Sridevi Alvarez MD CHEMISTRY & BLOOD GAS ORDERABL ES Final Result Performing Organization Address [facility] de Phone Number [facility]AMES [facility] [address] [place] [address] * (ABNORMAL) CK MB WITH TOTAL CK (01/18/2014 13:58 EDT) CK 612(H) 0 - 250 U/L [facility]OB EU[facility] MB 5.12(H) <4.21 ng/ml [facility] Blood specimen (specimen) 01/18/2014 13:58 EDT 01/18/2014 14:35 EDT us Sridevi Alvarez MD CHEMISTRY & BLOOD GAS ORDERABL ES Final Result Performing Organization Address [facility] de Phone Number [facility] [address] [place] [address] * INPATIENT ADD-ON (01/18/2014 10:37 EDT) Tests to be added TROPONIN [facility] Number for problems [id number] [facility] Accession number [id number] AJCOB [facility] 01/18/2014 10:3 7 EDT 01/18/2014 15:38 EDT us Gerhard Willett MD HEMATOLOGY & PF4 ORDERABLES F inal Result Performing Organization Address [facility] de Phone Number [facility] [address] [place] [address] * (ABNORMAL) PTT (01/18/2014 8:33 EDT) PTT 42(H) 26 - 37 secs [facility] Comment:Therapeutic Heparin range: 65-100 seconds Blood specimen (specimen) 01/18/2014 8:33 EDT 01/18/2014 8:50 EDT us Golden Rutherford MD HEMATOLOGY & PF4 ORDERABLES Final Result Performing Organization Address [facility] de Phone Number [facility] [address] [place] [address] * CT HEAD WO CONTRAST (01/18/2014 7:17 [...] Kraft at approximately 7:48 AM on 01/18/14. us Sridevi Alvarez MD IMG CT ORDERABLES Final Result * BLOOD GAS, G3 ISTAT (01/18/2014 6:53 EDT) pH, i-STAT 7.40 7.35 - 7.45 [facility] pCO2, i-STAT 38 35 - 45 mmHg [facility] pO2, i-STAT 81 80 - 105 mmHg [facility] TCO2, i-STAT 25 mEq/L AKIL R [facility] O2 Saturation 96 % CHAVA DRAKE [facility] Base Deficit, i-STAT 1 [facility] FIO2 21 [facility] Sample Type ARTERIAL [facility] bookmobile driver ID [id number] [facility] Comment: Test Performed by Respiratory For non-arterial reference ranges, please see ISTAT procedure. 01/18/2014 6:53 EDT 01/18/2014 6:59 EDT us Golden Rutherford MD CHEMISTRY & BLOOD GAS ORDER MEAGAN Final Result Performing Organization Address [facility] Co de Phone Number [facility] [address] [place] [address] * (ABNORMAL) ETHANOL, BLOOD (01/18/2014 6:43 EDT) Pathologist [facility] Ethanol 144(H) <10 mg/dl JACOB BERMAN Blood specimen (specimen) 01/18/2014 6:43 EDT 01/18/2014 6:48 EDT Sridevi Alvarez MD CHEMISTRY & BLOOD GAS ORDERABL ES Final Result Performing Organization Address [facility] de Phone Number [facility] [address] [place] [address] * (ABNORMAL) PTT (01/18/2014 6:43 EDT) [facility] PTT 51(H) 26 - 37 secs [facility] Comment:Therapeutic Heparin range: 65-100 seconds Blood specimen (specimen) 01/18/2014 6:43 EDT 01/18/2014 6:48 EDT Sridevi Alvarez MD HEMATOLOGY & PF4 ORDERABLES Fi nal Result Performing Organization Address [facility] de Phone Number [facility] [address] [place] [address] * CREATININE (01/18/2014 6:43 EDT) [facility] Creatinine 0.89 0.66 - 1.25 mg/dl JACOB EUBAN[facility] GFR, Calculated >60 >60 ml/min/1.7 3m2 JAMESASHLEY EUBANKS [facility] Blood specimen (specimen) 01/18/2014 6:43 EDT 01/18/2014 6:48 EDT Sridevi Alvarez MD CHEMISTRY & BLOOD GAS ORDERABL ES Final Result Performing Organization Address [facility] de Phone Number [facility] [address] [place] [address] * (ABNORMAL) BUN (01/18/2014 6:43 EDT) BUN 6(L) 10 - 26 mg/dl [facility] Blood specimen (specimen) 01/18/2014 6:43 EDT 01/18/2014 6:48 EDT Sridevi Alvarez MD CHEMISTRY & BLOOD GAS ORDERABL ES Final Result Performing Organization Address [facility] de Phone Number [facility] [address] [place] [address] * (ABNORMAL) ELECTROLYTES (01/18/2014 6:43 EDT) Sodium 139 136 - 145 mEq/L [facility] Potassium 4.0 3.5 - 5.0 mEq/L [facility] Chloride 104 96 - 110 mEq/L [facility] CO2 23(L) 24 - 32 mEq/L [facility] Blood specimen (specimen) 01/18/2014 6:43 EDT 01/18/2014 6:48 EDT Sridevi Alvarez MD CHEMISTRY & BLOOD GAS ORDERABL ES Final Result Performing Organization Address [facility] de Phone Number [facility] [address] [place] [address] * PROTIME (01/18/2014 6:43 EDT) Pro Time [...] EDT Sridevi Alvarez MD HEMATOLOGY & PF4 ORDERABLES Fi nal Result Performing Organization Address [facility] de Phone Number [facility] [address] [place] [address] * (ABNORMAL) HEMAGRAM (01/18/2014 6:43 EDT) Pathologist [facility] WBC 5.19 4.0 - 10.4 K/cmm [facility] RBC 4.21(L) 4.36 - 5.78 M/cmm JMAES [facility] Hemoglobin 13.5(L) 13.8 - 17.3 gm/dl [facility] HCT 39.4(L) 39.5 - 50.2 % [facility] MCV 94 81 - 95 fl [facility] MCH 32.0 27.6 - 33.0 pg [facility] MCHC 34.2 32.8 - 36.4 gm/dl [facility] PLT 105(L) 141 - 320 K/cmm [facility] RDW-CV 14.1 11.8 - 14.1 % [facility] Blood specimen (specimen) 01/18/2014 6:43 EDT 01/18/2014 6:48 EDT Sridevi Alvarez MD HEMATOLOGY & PF4 ORDERABLES Fi nal Result Performing Organization Address [facility] Co de Phone Number [facility] [address] [place] [address] * (ABNORMAL) TROPONIN I (01/18/2014 6:43 EDT) [facility] Troponin I (ng/mL) 0.415(H) <0.034 ng/ml [facility] EU[facility] Blood specimen (specimen) 01/18/2014 6:43 EDT 01/18/2014 6:48 EDT Sridevi Alvarez MD CHEMISTRY & BLOOD GAS ORDERABL ES Final Result Performing Organization Address [facility] Co de Phone Number [facility] [address] [place] [address] * CK MB WITH TOTAL CK (01/18/2014 6:43 EDT) [facility] CK 127 0 - 250 U/L [facility] MB 2.42 <4.21 ng/ml [facility] Blood specimen (specimen) 01/18/2014 6:43 EDT 01/18/2014 6:48 EDT us Sridevi Alvarez MD CHEMISTRY & BLOOD GAS ORDERABL ES Final Result Performing Organization Address [facility] de Phone Number [facility] [address] [place] [address] * INPATIENT ADD-ON (01/18/2014 3:35 EDT) Tests to be added BLOOD ETHANOL LEVEL [facility] Number for problems Not Given [facility] Accession number [id number] [facility] 01/18/2014 3:35 EDT 01/18/2014 3:39 EDT us Sridevi Alvarez MD HEMATOLOGY & PF4 ORDERABLES Fi nal Result Performing Organization Address [facility] Co de Phone Number [facility] [address] [place] [address] * INPATIENT ADD-ON (01/18/2014 2:58 EDT) Tests to be added PROTIME [facility] Number for problems Not Given [facility] Accession number [id number] [facility] 01/18/2014 2:58 EDT 01/18/2014 2:58 EDT us Golden Rutherford MD HEMATOLOGY & PF4 ORDERABLES Final Result Performing Organization Address [facility] Co de Phone Number [facility] [address] [place] [address] * INPATIENT ADD-ON (01/18/2014 2:38 EDT) Tests to be added HEMAGRAM [facility] Number for problems Not Given [facility] Accession number [id number] [facility] 01/18/2014 2:38 EDT 01/18/2014 2:39 EDT Sridevi Alvarez MD HEMATOLOGY & PF4 ORDERABLES Fi nal Result Performing Organization Address [facility] de Phone Number [facility] [address] [place] [address] * (ABNORMAL) ETHANOL, BLOOD (01/18/2014 1:02 EDT) Ethanol 261(H) <10 mg/dl [facility] 01/18/2014 1:02 EDT 01/18/2014 1:12 EDT Sridevi Alvarez MD CHEMISTRY & BLOOD GAS ORDERABL ES Final Result Performing Organization Address [facility] Phone Number [facility] [address] [place] [address] * PROTIME (01/18/2014 1:02 EDT) Pro Time 10.3 9.5 - 12.3 secs [facility] Comment: New prothrombin t radha range effective 01/12/14 I.N.R. 1.0 0.9 - 1.1 Ratio [facility] Comment: Moderate Intensity Coumadin INR = 2.0-3.0 Adjustments in anticoagulant therapy dose should be based upon the INR and NOT the Pro Time. 01/18/2014 1:02 EDT 01/18/2014 1:12 EDT Sridevi Alvarez MD HEMATOLOGY & PF4 ORDERABLES Fi nal Result Performing Organization Address [facility] de Phone Number [facility] [address] [place] [address] * (ABNORMAL) HEMAGRAM (01/18/2014 1:02 EDT) WBC 5.61 4.0 - 10.4 K/cmm [facility] RBC 4.39 4.36 - 5.78 M/cmm [facility] Hemoglobin 13.9 13.8 - 17.3 gm/dl [facility] HCT 40.9 39.5 - 50.2 % [facility] MCV 93 81 - 95 fl [facility] MCH 31.8 27.6 - 33.0 pg [facility] MCHC 34.1 32.8 - 36.4 gm/dl [facility] PLT 114(L) 141 - 320 K/cmm [facility] RDW-CV 14.0 11.8 - 14.1 % [facility] 01/18/2014 1:02 EDT 01/18/2014 1:12 EDT Sridevi Alvarez MD HEMATOLOGY & PF4 ORDERABLES Fi nal Result Performing Organization Address [facility] Co de Phone Number [facility] [address] [place] [address] * (ABNORMAL) PTT (01/18/2014 1:02 EDT) Pathologist [facility] PTT 141(HH) 26 - 37 secs [facility] Comment:Therapeutic Heparin range: 65-100 seconds Blood specimen (specimen) 01/18/2014 1:02 EDT 01/18/2014 1:12 EDT Golden Rutherford MD HEMATOLOGY & PF4 ORDERABLES Final Result Performing Organization Address [facility] de Phone Number [facility] [address] [place] [address] * MAGNESIUM (01/18/2014 1:02 EDT) Magnesium 2.1 1.7 - 2.8 mg/dl [facility] Blood specimen (specimen) 01/18/2014 1:02 EDT 01/18/2014 1:12 EDT Sridevi Alvarez MD CHEMISTRY & BLOOD GAS ORDERABL ES Final Result Performing Organization Address [facility] Co de Phone Number [facility] [address] [place] [address] * (ABNORMAL) TROPONIN I (01/18/2014 1:02 EDT) Troponin I (ng/mL) 0.383(H) <0.034 ng/ml [facility] Blood specimen (specimen) 01/18/2014 1:02 EDT 01/18/2014 1:12 EDT Sridevi Alvarez MD CHEMISTRY & BLOOD GAS ORDERABL ES Final Result Performing Organization Address [facility] de Phone Number [facility] [address] [place] [address] * CK MB WITH TOTAL CK (01/18/2014 1:02 EDT) CK 113 0 - 250 U/L [facility] MB 2.62 <4.21 ng/ml [facility] Blood specimen (specimen) 01/18/2014 1:02 EDT 01/18/2014 1:12 EDT Sridevi Alvarez MD CHEMISTRY & BLOOD GAS ORDERABL ES Final Result Performing Organization Address [facility] Phone Number [facility] [address] [place] [address] * HEMOGLOBIN A1C (01/18/2014 1:02 EDT) Hemoglobin [...] EDT Sridevi Alvarez MD CHEMISTRY & BLOOD GAS ORDERABL ES Final Result Performing Organization Address [facility] Phone Number [facility] [address] [place] [address] * (ABNORMAL) SCREENING GLUCOSE (01/18/2014 1:02 EDT) Glucose, Screening 104(H) 70 - 100 mg/dl [facility] Blood specimen (specimen) 01/18/2014 1:02 EDT 01/18/2014 1:12 EDT Sridevi Alvarez MD CHEMISTRY & BLOOD GAS ORDERABL ES Edited Result - Final Performing Organization Address [facility] de Phone Number [facility] [address] [place] [address] * ALKALINE PHOSPHATASE (01/18/2014 1:02 EDT) Total Alkaline Phosphatase 75 38 - 126 U/L [facility] Blood specimen (specimen) 01/18/2014 1:02 EDT 01/18/2014 1:12 EDT Sridevi Alvarez MD CHEMISTRY & BLOOD GAS ORDERABL ES Final Result Performing Organization Address [facility] de Phone Number [facility] [address] [place] [address] * (ABNORMAL) ALT (01/18/2014 1:02 EDT) ALT 78(H) 21 - 72 U/L [facility] Blood specimen (specimen) 01/18/2014 1:02 EDT 01/18/2014 1:12 EDT Sridevi Alvarez MD CHEMISTRY & BLOOD GAS ORDERABL ES Final Result Performing Organization Address [facility] de Phone Number [facility] [address] [place] [address] * (ABNORMAL) AST (01/18/2014 1:02 EDT) AST 68(H) 15 - 46 U/L [facility] Blood specimen (specimen) 01/18/2014 1:02 EDT 01/18/2014 1:12 EDT Sridevi Alvarez MD CHEMISTRY & BLOOD GAS ORDERABL ES Final Result Performing Organization Address [facility] de Phone Number [facility] [address] [place] [address] * (ABNORMAL) CREATININE (01/18/2014 1:02 EDT) Creatinine 0.53(L) 0.66 - 1.25 mg/dl [facility] GFR, Calculated >60 >60 ml/min/1.7 3m2 [facility] Blood specimen (specimen) 01/18/2014 1:02 EDT 01/18/2014 1:12 EDT Sridevi Alvarez MD CHEMISTRY & BLOOD GAS ORDERABL ES Final Result Performing Organization Address [facility] Phone Number [facility] [address] [place] [address] * (ABNORMAL) BUN (01/18/2014 1:02 EDT) BUN 3(L) 10 - 26 mg/dl [facility] Blood specimen (specimen) 01/18/2014 1:02 EDT 01/18/2014 1:12 EDT Sridevi Alvarez MD CHEMISTRY & BLOOD GAS ORDERABL ES Final Result Performing Organization Address [facility] Phone Number [facility] [address] [place] [address] * (ABNORMAL) ELECTROLYTES (01/18/2014 1:02 EDT) Sodium 143 136 - 145 mEq/L [facility] Potassium 3.8 3.5 - 5.0 mEq/L [facility] Chloride 107 96 - 110 mEq/L [facility] CO2 22(L) 24 - 32 mEq/L [facility] Blood specimen (specimen) 01/18/2014 1:02 EDT 01/18/2014 1:12 EDT Sridevi Alvarez MD CHEMISTRY & BLOOD GAS ORDERABL ES Final Result [facility] [address] [place] [address] * EKG 12-LEAD (01/18/2014 0:50 EDT) 01/18/2014 0:50 EDT Narrative [facility] EKG - 01/19/2014 8:36 EDT ?[facility] ? Test Date: ?2014-01-18 Pat Name: ? JIMENEZ BARKLEY ? Department: ?? [facility] ? Room: ? MW528 Gender: ? M ?Valet Parker: ?? [id number] : ?1955 ? Requested By: BETZY CASTILLO Order Number: [id number] ? Gwen CRAFT: ?? CHICO POSEY MD ? Measurements Intervals ?[place] ? Rate: ? 76 ? P: ?-24 CO: ? 141 ?QRS: ?72 QRSD: ? 96 [...] Procedure Note Chico Posey MD - 01/19/2014 [facility] Test Date: 2014-01-18 Pat Name: JIMENEZ BARKLEY Department: [place] [address] Room: [facility] Gender: M Valet Parker: [id number] : 1955 Requested By: BETZY CASTILLO Order Number: [id number] Reading MD: CHICO POSEY MD Measurements Intervals [place] Rate: 76 P: -24 CO: 141 QRS: 72 QRSD: 96 T: 70 QT: 413 QTc: 466 Interpretive Statements SINUS RHYTHM Normal ECG Compared to ECG 01/03/2014 08:06:42 No significant changes I have reviewed the tracing and have either agreed or edited the findingsin this report. Electronically Signed On 01-19-14 08:36:54 EDT by CHICO BUI. Sridevi Alvarez MD CARDIAC ECG ORDERABLES Final R esult FA EKG documented in this encounter Visit Diagnoses Diagnosis NSTEMI (non-ST elevated myocardial infarction) ([facility] Primary Acute myocardial infarction, subendocardial infarction, episode of care unspecified NSTEMI (non-ST elevated myocardial infarction) ([facility]) Acute myocardial infarction, subendocardial infarction, episode of care unspecified Delirium tremens ([facility]) Alcohol withdrawal delirium ETOH abuse Alcohol abuse, unspecified Alcohol withdrawal ([facility]) Alcohol withdrawal ETOH abuse Alcohol abuse, unspecified [...] 75 mg, oral, DAILY, First dose on [place] 01/18/14 at 0900, Until Discontinued, Routine Given [...] intravenous, EVERY 1 HOUR PRN, Starting on [place] 01/18/14 at 1946, Until Sun01/19/14 at 0012, Withdrawal, [...] mg, oral, NOW X1, 1 dose, On 01/18/14 at 1930, Routine Given 01/18/2014 20:32 EDT 25 mg metoprolol XL (TOPROL-XL) tablet 75 mg 75 mg, oral, DAILY, First dose on 01/18/14 at 0900, Until Discontinued, Routine Given 01/18/2014 11:15 EDT 75 mg mometasone-formoterol (DULERA) 100-5 mcg/actuation inhaler 2 Puff 2 Puff, inhalation, 2 TIMES DAILY, First dose on 01/18/14 at 2100, Until Discontinued, Routine Given 01/23/2014 12:06 EDT 2 Puffs Given 01/22/2014 20:22 EDT 2 Puffs Given 01/22/2014 9:24 EDT 2 Puffs Multivitamins with Minerals tablet 1 Tab 1 Tablet, oral, DAILY, First dose on 01/18/14 at 0900, Until Discontinued, Routine Given 01/23/2014 12:07 EDT 1 Tablet Given 01/22/2014 9:26 EDT 1 Tablet Given 01/21/2014 8:42 EDT 1 Tablet nicotine (NICODERM CQ) 21 mg/24 hr patch 1 Patch 1 Patch, transdermal, DAILY, First dose on 01/18/14 at 0900, Until Discontinued, Routine Patch Applied [...] sublingual, EVERY 5 MIN PRN, Starting on 01/18/14 at 0036, Until Sun01/23/14 at 2022, Chest Pain, Routine Given 01/18/2014 16:50 EDT 0.4 mg PEG 3350-Electrolytes (MIRALAX) packet 17 g 17 g, oral, DAILY, First dose on [place] 01/22/14 at 0915, Until Discontinued, Routine Given 01/23/2014 [...] oral, 2 TIMES DAILY, First dose on Sun01/18/14 at 0100, Until Discontinued, Routine Given 01/23/2014 [...] intravenous, EVERY 8 HOURS, First dose on Sun01/18/14 at 0100, Until Discontinued, Routine Given 01/23/2014 [...] Eliz Junior) 2020 (Given - Provider: Flora Souza, NING) aspirin chewable tablet 81 mg (CANCELED) 81 [...] 0.2 mg, oral, DAILY, First dose on 01/19/14 at 1930, Until Discontinued, Routine 0843 (Given - Provider: Fredi Lux RN) 0926 (Given - Provider: Krsitel Huang RN) clopidogrel (PLAVIX) tablet 75 mg [...] Lux RN) 0922 (Given - Provider: Kristel Huang, NING) 1205 (Given - Provider: Kristel Huang RN) [...] subcutaneous, EVERY 12 HOURS, First dose on Sun01/22/14 at 0900, Until Discontinued, Routine 0925 (Given - Provider: Kristel Huang RN)202 (Given - Provider: Flora Souza, NING) 1208 (Canceled Entry - Provider: Kristel Huang RN) levothyroxine (SYNTHROID) tablet 75 mcg 75 mcg, oral, DAILY BEFORE BREAKFAST, First dose on 01/18/14 at 0700, Until Discontinued, Routine 0626 (Given - Provider: Jovan Welch RN) 0603 (Given - Provider: Rishi Peterson RN) 0633 (Given - Provider: Kelly Rojas)0822 (Canceled Entry - Provider: Kristel Huang RN - Comment: patient wanted to sleep) lidocaine 5 % (LIDODERM) patch 1 Patch (CANCELED) 1 Patch, transdermal, Administer over 12 Hours, DAILY, First dose on 01/18/14 at 0900, Until Discontinued, Routine 06 (Patch Applied - Provider: Jovan Welch RN)09 (Canceled Entry - Provider: Jovan Welch RN)1910 (Patch Removed - Provider: Eliz Junior) 09 (Patch Applied - Provider: Kristel Huang, NING)222 (Patch Removed - Provider: Flora Souza, NING) 1206 (Patch Applied - Provider: Kristel Huang RN) lisinopril (PRINIVIL, ZESTRIL) tablet 10 mg (CANCELED) 10 mg, oral, DAILY, First dose on [place] 01/22/14 at 0945, Until Discontinued, Routine 1038 (Given - Provider: Kristel Huang RN) 1201 (Given - Provider: Kristel Huang RN) magnesium sulfate in D5W 2 g/50 mL premade bag (COMPLETED) 2 g, intravenous, Administer over 30 Minutes, NOW X1, 1 dose, On Sun01/21/14 at 0800, Routine 0842 (Given - Provider: Frdei Lux RN) magnesium sulfate in D5W 2 [...] Huang RN) 1201 (Given - Provider: Kristel Hunag RN) mometasone-formoterol (DULERA) 100-5 mcg/actuation inhaler 2 Puff 2 Puff, inhalation, 2 TIMES DAILY, First dose on 01/18/14 at 2100, Until Discontinued, Routine 0844 (Given - Provider: Fredi Lux RN)2053 (Given - Provider: Eliz Junior) 0924 (Given - Provider: Kristel Huang, NING)2021 (Given - Provider: Flora Souza RN) 120 (Given - Provider: Kristel Huang, NING) Multivitamins with Minerals tablet 1 Tab 1 Tablet, oral, DAILY, First dose on 01/18/14 at 0900, Until Discontinued, Routine 0842 (Given - Provider: Fredi Lux RN) 0926 (Given - Provider: Kristel Huang RN) 1207 (Given - Provider: Kristel Huang, NING) nicotine (NICODERM CQ) 21 mg/24 hr patch 1 Patch (CANCELED) 1 Patch, transdermal, DAILY, First dose on 01/18/14 at 0900, Until Discontinued, Routine 0843 (Patch Applied - Provider: Fredi Lux RN)2054 (Patch Removed - Provider: Eliz Junior) 09 (Patch Applied - Provider: Kristel Huang RN)2024 (Patch Removed - Provider: Flora Souza, NING) 120 (Patch Applied - Provider: Kristel Huang RN)2100 (Due: Patch Removed - Provider: Kristel Huang RN) PEG 3350-Electrolytes (MIRALAX) packet 17 g (CANCELED) 17 g, oral, DAILY, First dose on Sun01/22/14 at 0915, Until Discontinued, Routine 1038 (Given - Provider: Kristel Huang RN) 120 (Given - Provider: Kristel Huang, RN) potassium chloride SA (K-DUR, KLOR-CON M20) tablet 20 mEq (CANCELED) 20 mEq, oral, 2 TIMES DAILY, First dose on Sun01/20/14 at 2100, Until Discontinued, Routine 0843 (Given - Provider: Fredi Lux RN)2056 (Given - Provider: Eliz Junior) 09 (Given - Provider: Kristel Huang RN)2020 (Given - Provider: Flora Souza, NING) 120 (Given - Provider: Kristel Huang RN) ranitidine (ZANTAC) tablet 150 mg (CANCELED) 150 mg, oral, 2 TIMES DAILY, First dose on Sun01/18/14 at 0100, Until Discontinued, Routine 0843 (Given - Provider: Fredi Lux RN)2056 (Given - Provider: Eliz Junior) 0922 (Given - Provider: Kristel Huang RN)2020 (Given - Provider: Flora Souza, NING) 120 (Given - Provider: Kristel Huang, NING) senna (SENOKOT) tablet 1 Tab (CANCELED) 1 Tablet, oral, AT BEDTIME, First dose on Sun01/18/14 at 0200, Until Discontinued, Routine 2056 (Given - Provider: Eliz Junior) 2020 (Given - Provider: Flora Souza, NING) sodium chloride 0.9 % flush 3 mL (CANCELED) 3 mL, intravenous, EVERY 8 HOURS, First dose on 01/18/14 at 0100, Until Discontinued, Routine 0119 (Given - Provider: Jovan Welch RN)0853 (Given - Provider: Fredi Lux RN)1740 (Not Given - Provider: Eliz Junior - Reason: Other - Comment: iv painful, to be replaced) 0045 (Given - Provider: Bailee Mario RN)0928 (Given - Provider: Kristel Huang RN)1706 (Given - Provider: Flora Souza, NING) 0113 (Given - Provider: Kelly Rojas)1208 (Given - [...] Eliz Junior) 1755 (Given - Provider: Flora Souza, NING) 0008 (Given - Provider: Kelly Rojas)1523 (Given - Provider: Flori Blanco RN - Comment: back pain) albuterol (VENTOLIN HFA) [...] Eliz Junior) 0937 (Given - Provider: Kristel Huang, RN) 1204 (Given - Provider: Kristel Huang, RN) documented in this encounter Orders Medications [...] 01/20/2014 documented in this encounter Care Teams Cereal Miller Relationship Specialty Start Date End Date Sai Garg MD [address] [place] [address] [phone] PCP - General 01/03/14 11/11/14 documented as of this encounter
--- OUTSIDE RECORDS SUMMARY | 2024-08-06 12:12 | XMS_ITS | Encounter Summary ---
Author Organization [facility] Address [address] [place] [address] Care Team Providers Care Wire Twister Name Role Phone Reagan Foster MD Primary Care Pro vider Encounter Details Date Type Department Care Team (Latest Contact Info) Description 01/02/2014 10:33 EDT - 01/02/2014 11:47 EDT Hospital Encounter [facility] [address] [place] [address] Unknown, Provider, MD Discharge Disposition: Home or [...] Author No 01/02/2014 17:00 Cassy Woo RN * Are you blind or do you have serious difficulty seeing, even when wearing glasses? Answer Date of Assessment Author No 01/02/2014 17:00 Cassy Woo RN * Do you have serious difficulty [...] Yanique Garcia RN documented in this encounter Medications at [...] Code Departure Means Destination Home or Self [facility] documented in this encounter Plan of Treatment [...] on filedocumented in this encounter Care Teams Wire Twister Relationship Specialty [place] [address] [place] [address] PCP - General 07/15/12 01/02/14 documented as of this encounter
--- OUTSIDE RECORDS SUMMARY | 2024-08-06 12:12 | XMS_ITS | Encounter Summary ---
Author Organization [facility] Address [address] [place] [address] Care Team Providers Care Professor Of Oceanography Name Role Phone Unknown, Provider Primary Care Provider Unava ilable Reason for Visit * Reason Comments Other Encounter Details Date Type Department Care Team (Late st Contact Info) Description 12/24/2009 Refill [facility] Adult Primary Care [address] [id number] Dominic Araujo MD FA [employer] [address] [place] [address] Other Social History Tobacco Use Types Packs/Day [...] on file documented as of this encounter Mental Status * Because of a physical, mental, or emotional condition, do you have serious difficulty concentrating, remembering, or making decisions? (5 years old or older) Answer Entry Date Author Yes 11/13/2009 13:28 EST Yanique Louis, NING documented in this encounter Plan of Treatment Not on file documented as of this encounter Visit Diagnoses Not on filedocumented in this encounter Care Teams Professor Of Oceanography Relationship Specialty Start Date End Date Unknown, Provider, PCP - General 11/15/09 05/03/11 documented as of this encounter
--- OUTSIDE RECORDS SUMMARY | 2024-08-06 12:12 | XMS_ITS | Encounter Summary ---
Author Organization [facility] Address [address] [place] [address] Care Team Providers Care Public Health Nutritionist Name Role Phone Sai Garg MD Primary Care Provi glynn Reason for Referral * Radiology Services (Routine/Next Available) - Closed Specialty Diagnoses / Procedures Referred By Contabida t Referred To Contact Diagnoses Neck pain Procedures CERVICAL SPINE 4 OR MORE VIEWS Lucy Pino MD Phone: tel: fax: Referral ID Status Reason Start Date Expiration Date Visits Re quested Visits Authorized [id number] Closed 07/11/2012 1 1 Reason for Visit * Reason Onset Date Comments Appointment Related 07/11/2012 Encounter Details Date Type Department Care Team (Late st Contact Info) Description 07/11/2012 Orders Only [facility] Spine Program - [address] [place] [address] Lucy Pino MD [address] [place] [address] [place] [address] Neck pain (Primary Dx) Social [...] Yanique Garcia RN documented in this encounter Plan of [...] is present at C5-C6 and C6-C7 bilaterally. us Lucy Pino MD IMG DIAGNOSTIC IMAGING ORDERABLES Final Result documented in this encounter Visit Diagnoses Diagnosis Neck pain- Primary Cervicalgia documented in this encounter Care Teams Public Health Nutritionist Relationship Specialty Start Date End Date Sai Garg MD [address] [place] [phone] PCP - General 06/03/12 07/14/12 documented as of this encounter
--- OUTSIDE RECORDS SUMMARY | 2024-08-06 12:12 | XMS_ITS | Encounter Summary ---
Author Organization [facility] Address [address] [place] [address] Care Team Providers Care Staff Counselor Name Role Phone Reagan Foster MD Primary Care Pro vider Encounter Details Date Type Department Care Team (Late st Contact Info) Description 01/02/2014 Results Only Imaging [facility] [phone] Unknown, Provider, Social History Tobacco Use Types [...] Date Author Yes 11/13/2009 13:28 EST Yanique Louis RN documented in this encounter Plan of Treatment Pending Results Name Type Priority Associated Diagnoses Date /Time OUTSIDE IMAGES - OTHER CHEST Imaging 01/02/2014 10:03 EDT documented as of this encounter Visit Diagnoses Not on filedocumented in this encounter Care Teams Staff Counselor Relationship Specialty [place] [address] [place] [phone] PCP - General 07/15/12 01/02/14 documented as of this encounter
--- OUTSIDE RECORDS SUMMARY | 2024-08-06 12:12 | XMS_ITS | Encounter Summary ---
Author Organization [facility] Address [address] [place] [address] Care Team Providers Care Pin Inserter Regulator Name Role Phone Sherita Stanford MD Primary Care Provider [phone] Reason for Visit * Reason Onset Date Comments Appointment Related 06/02/2011 Encounter Details Date Type Department Care Team (Late st Contact Info) Description 06/02/2011 Orders Only [facility] Spine Program - [address] [address] Lucy Pino MD [address] [place] [address] [place] [phone] Neck pain (Primary Dx) Social [...] Cervicalgia documented in this encounter Care Teams Pin Inserter Regulator Relationship Specialty Start Date End Date Sherita Stanford MD [address] [place] [phone] PCP - General 05/04/11 06/02/12 documented as of this encounter
--- OUTSIDE RECORDS SUMMARY | 2024-08-06 12:12 | XMS_ITS | Encounter Summary ---
Author Organization [facility] Address [address] [place] [address] Care Team Providers Care Manager Reimbursement Name Role Phone Reagan Foster MD Primary Care Pro vider Reason for Visit * Reason Comments Neck Pain Encounter Details Date Type Department Care Team (Late st Contact Info) Description 07/16/2012 12:00 EDT Office Visit [facility] Spine Program - [address] [place] [address] Lucy Pino MD [address] [place] [address] [place] [address] Cervical spondylosis; Chronic right shoulder [...] 07/16/2012 1203 EDT documented in this encounter Mental Status * Because of a physical, mental, or emotional condition, do you have serious difficulty concentrating, remembering, or making decisions? (5 years old or older) Answer Entry Date Author Yes 11/13/2009 13:28 EST Yanique Louis RN documented in this encounter Discharge Disposition Disposition Code Departure Means Destination Auto Discharge documented in this encounter Progress Notes * Bethany Pino MD - 07/21/2012 3502 EST P: Right shoulder pain, neck pain [...] treated with traction in the hospital in [place], [place]; no surgery or brace was required. [...] of old destabilizing trauma is absent. 

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
[2024-08-06] MEDS: MORPHine 10 MG/ML VIAL 6 MG IVP (12:38)
[2024-08-06 13:08] LABS: Troponin I 12 ng/L (<or=76)
--- NOTE | 2024-08-06 13:36 | W.PM.HP.N ---
Date of service: 08/06/24 Time of Service: 13:36 Assessment and Plan Assessment and plan (1) Acute exacerbation of chronic obstructive pulmonary disease (COPD): Status: Acute Assessment and plan: - Patient has significant end-stage COPD, is normally on 5 mg prednisone -Did not have hypercapnia or significant hypoxic respiratory failure in the emergency department though did have significant improvement of his respiratory distress and tachypnea after being placed on CPAP -Upon seeing patient he is back on 1 to 2 L nasal cannula -Continue as needed CPAP for episodes of significant respiratory distress -Patient also on 6 mg IV morphine Q3 as needed for pain or air hunger (2) Acute on chronic respiratory failure with hypoxia: Status: Acute Assessment and plan: - As noted above (3) Nicotine dependence, cigarettes, uncomplicated: Status: Acute Assessment and plan: - Recommend smoking cessation discussion as outpatient (4) DNR (do not resuscitate): Status: Acute Assessment and plan: - Per previous COLST patient is a DNR but is okay with trial intubation (5) Nephrostomy present: Status: Acute Assessment and plan: - Patient recently at [facility] and had nephrostomy tube placed on 07/29/2024 -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 Patient states that he has had some worsening shortness of breath over the last few days and was having difficulty with his oxygen. he denies any fevers, lightheadedness, dizziness, chest pain, sputum production. Patient states that upon EMS arrival he required 6 L nasal cannula but was continuing to have ongoing shortness of breath. In the emergency department is noted as being cachectic appearing, with tachypnea and significant respiratory and subcostal retractions without expiratory wheezing and bilateral lung talavera. He was also tachycardic with a heart rate in the 100s, was hypotensive with blood pressure in the 190s systolics, was afebrile, was initially tachypneic with a respiratory rate in the 40s which has since improved being placed first on BiPAP without improvement and subsequently CPAP now with respiratory rate in the mid teens. He was also documented as saturating in the mid 90s, however as of the time of writing this note at 13:39 and despite the patient having been in the emergency department for over 2 hours, the amount of supplemental oxygen the patient has been receiving has not been documented with last documented oxygen requirement from April 17, 2024. As mentioned previously, patient was initially placed on BiPAP, but continued to be tachypneic and was subsequently transition to CPAP with significant improvement. His VBG showed a pH of 7.42, with a CO2 of 44 and bicarb of 28. Chest x-ray was also obtained and did not show any acute pulmonary findings. Additionally, patient CBC and CMP were also unremarkable. At which time patient was also given ongoing nebulizer treatments as well as IV Solu-Medrol. Ultimately, emergency room physician paged hospitalist for admission for patient with a COPD exacerbation requiring ICU admission as he currently requires CPAP. Review of Systems All systems reviewed & are unremarkable except as noted in HPI and below PFSH All Active Problems (Updated 08/06/24 @ 17:55 by Reagan Crowe MD) Nephrostomy present (Acute) Acute on chronic respiratory failure with hypoxia (Acute) Acute exacerbation of chronic obstructive pulmonary disease (COPD) (Acute) Pain (Acute) Multifactorial: From bladder tumor? From nephrostomy tube? Started on opiates July 2024 while at [facility] palliative care team will manage Frailty syndrome in geriatric patient (Acute) Financial insecurity (Acute) DNR (do not resuscitate) (Acute) See 03/04/2024 COLST. DNR/time limited trial of intubation, +transfer, +treat/abx/IV Advanced care planning/counseling discussion (Acute) Palliative care encounter (Acute) Weight loss (Acute) Chronic fatigue (Acute) Pulmonary cachexia due to chronic obstructive pulmonary disease (Acute) Night sweats (Acute) Unintentional weight loss (Acute) MAKI (acute kidney injury) (Acute) Lumbar transverse process fracture (Acute) Fall (Acute) Pleural nodule (Acute) Nicotine dependence, cigarettes, uncomplicated (Acute) Ataxia (Acute) Dizziness (Acute) Gait abnormality (Acute) Rib fractures (Acute) Memory loss (Acute) Stroke (Chronic) Post concussion syndrome (Acute) Sacroiliac joint pain (Chronic) COPD (chronic obstructive pulmonary disease) (Acute) History of coronary artery disease (Acute) Medical History (Updated 08/06/24 @ 17:55 by Reagan Crowe MD) Hx of dizziness H/O: stroke Spine injury Anxiety with depression Bipolar 1 disorder Insomnia H/O onychomycosis Smoker Eczema Allergic rhinitis Alcohol abuse In remission GERD (gastroesophageal reflux disease) Chronic pain HTN (hypertension) COPD (chronic obstructive pulmonary disease) Coronary artery disease HCAP (healthcare-associated pneumonia) Surgical History (Updated 08/04/24 @ 15:13 by Juli Thapa RN) H/O cystoscopy H/O transurethral resection of bladder tumor (TURBT) History of coronary artery stent placement History of tonsillectomy Rotator Cuff Repair (06/30/16) RIGHT Family History Other Heart disease Hypertension Social History Smoking/Tobacco Use Status: Current every day Tobacco Type: cigarettes Smoking packs per day: 0.5 Smoking cigarettes per day: 10.0 Smoking risk assessment performed?: Yes Alcohol Intake: current Alcohol Intake frequency: a few times a month Alcohol type: beer Drug use: Occasionally Substance use type: marijuana Details: states drinks a 6 pack of beer over a 1 month time frame Household members: none Housing: house Number of Children: 1 current occupation: Disabled Pets and animals: No What type of physical activity do you participate in: walking Seatbelt use: sometimes Do you feel safe at home: Yes Do you feel safe in your relationship?: Yes Meds Allergies and Home Medications Allergies Allergy/AdvReac Type Severity Reaction Status Date / Time carbamazepine Allergy Intermediate Hives Unverified 08/06/24 12:39 acetaminophen (From Tylenol) Allergy unknown Verified 08/06/24 12:39 simvastatin Allergy unknown Unverified 08/06/24 12:39 Home Medications ?Medication ?Instructions ?Recorded ?Confirmed ?Type lisinopril 10 mg tablet 10 mg PO DAILY #90 tabs 08/19/18 08/06/24 Rx omeprazole 20 mg capsule,delayed 20 mg PO DAILY #90 caps 08/19/18 08/06/24 Rx release meloxicam 15 mg tablet 15 mg PO DAILY 01/27/19 08/06/24 History atorvastatin 20 mg tablet 20 mg PO DAILY 04/29/20 08/06/24 History Oxygen 2 l inhalation .exertion #1 supp 01/22/23 08/06/24 Rx fluticasone propionate 50 1 spray intranasal BID 04/04/23 08/06/24 History mcg/actuation nasal spray,suspension vitamin B complex-folic acid 0.4 1 tab PO DAILY 04/04/23 08/06/24 History mg tablet docusate sodium 100 mg capsule 100 mg PO BID #20 caps 05/28/23 08/06/24 Rx (Colace) clopidogrel 75 mg tablet (Plavix) 75 mg PO DAILY #90 tabs 08/23/23 08/06/24 Rx lamotrigine 100 mg tablet 100 mg PO BID 10/23/23 08/06/24 History (Lamictal) budesonide 160 mcg-glycopyr 9 See Rx Instructions .Route 11/13/23 08/06/24 Rx mcg-formot 4.8 mcg/actuation HFA .COMPLEX #32.1 grams inhaler ([employer]) escitalopram oxalate 20 mg tablet 20 mg PO DAILY #1 tab 12/04/23 08/06/24 Rx ipratropium 0.5 mg-albuterol 3 mg See Rx Instructions .Route 12/28/23 08/06/24 Rx (2.5 mg base)/3 mL nebulization .COMPLEX #30 ea soln prednisone 5 mg tablet See Rx Instructions .Route 02/04/24 08/06/24 Rx .COMPLEX #90 tabs albuterol sulfate 90 mcg/actuation See Rx Instructions .Route 03/16/24 08/06/24 Rx aerosol inhaler .COMPLEX #8.5 grams trazodone 100 mg tablet 100 mg PO QHS 08/04/24 08/06/24 History acetaminophen 500 mg capsule 1,000 mg (2 x 500 mg) PO Q6H PRN 08/05/24 08/06/24 Rx fever #100 caps oxycodone 5 mg tablet 5 mg PO .COMPLEX PRN pain #84 tabs 08/05/24 08/06/24 Rx polyethylene glycol 3350 17 17 g PO DAILY Prevent opioid 08/05/24 08/06/24 Rx gram/dose oral powder (Miralax) induced constipation #510 grams quetiapine 100 mg tablet 100 mg PO HS 08/06/24 08/06/24 History Exam Narrative Exam Narrative: Frail, cachectic appearing older gentleman laying in bed in no acute distress, ANO x 4, 2 L nasal cannula in place, heart regular rhythm, lungs significant expiratory wheezing throughout bilateral lung talavera, abdomen soft, nontender, nondistended Results Labs 08/06/24 11:32 08/06/24 11:32 Labs: Laboratory Results - last 24 hr 08/06/24 08/06/24 08/06/24 11:32 12:33 14:27 WBC 12.36 H RBC 4.25 L Hgb 12.5 L Hct 37.6 L MCV 89 MCH 29.4 MCHC 33.2 RDW 14.5 H Plt Count 459 H MPV 8.8 Immature Gran % 0.8 Neutrophils % 85.4 Lymphocytes % 5.9 Monocytes % 6.8 Eosinophils % 0.7 Basophils % 0.4 Nucleated RBC % 0.0 Absolute Neutrophils 10.56 H Absolute Lymphocytes 0.73 L Absolute Monocytes 0.84 H Absolute Eosinophils 0.09 Absolute Basophils 0.05 VBG pH 7.42 H VBG pCO2 44 VBG pO2 21 VBG HCO3 28 VBG Total CO2 26 VBG O2 Saturation 33 VBG Base Excess 4 H Sodium 137 Potassium 3.4 L Chloride 98 Carbon Dioxide 28.5 Anion Gap 10.5 BUN 15 Creatinine 1.0 Est GFR (CKD-EPI 2020) 81.98 Glucose 137 H Calcium 9.7 Magnesium 1.5 L Total Bilirubin 0.22 AST 35 ALT 38 Alkaline Phosphatase 115 Troponin I 15 12 Cancelled Total Protein 8.6 H Albumin 3.2 L Last Vital Signs Temp 97.7 F 08/06/24 11:23 Pulse 104 H 08/06/24 13:10 Resp 16 08/06/24 13:10 BP 193/84 H 08/06/24 12:01 Pulse Ox 96 08/06/24 13:10 Time Spent Time spent with Patient: >75 minutes Time was spent: preparing to see the patient(eg.review tests), obtaining and/or reviewing separately otained hiistory, ordering medications,tests, procedures, referring, communicating with other health healthcare manager, indepentently interpreting results, counseling the patient and care coordination
--- OUTSIDE RECORDS SUMMARY | 2024-08-06 14:43 | XMS_ITS | Encounter Summary ---
Author Organization Formerly [facility] Address [facility] [place] [address] Care Team Providers Care Electric Motor Assembler Name Role Phone Cintia Jones DARIANA Primary [...] heavy drinker, now drinks <3beers per month [facility] Utilities Answer Date Recorded In the past 12 months has th e electric, gas, oil, or water [employer] threatened to shut off services in your [...] were you homeless or living in a detention (including now)? No 07/30/2024 IPV Inpatient Questions [...] 1:30 PM EST Clinical [place] [address] 08/07/2024 3:30 PM EST Scheduled [place] [address] documented as of this encounter Visit Diagnoses Not on filedocumented in this encounter Care Teams Electric Motor Assembler Relationship Specialty Start Date End Date Cintia Jones, COURT CLERK [facility] [address] [facility] [place] [address] PCP - General Family Medicine 05/09/24 documented as of this encounter
--- OUTSIDE RECORDS SUMMARY | 2024-08-06 14:43 | XMS_ITS | Encounter Summary ---
Author Organization [facility] Address [facility] [place] [address] Care Team Providers Care Weight Calculator Name Role Phone Cintia Jones DARIANA Primary Care Provider Encounter Details Date Type Department Care Team (Late st Contact Info) Description 08/01/2024 Telephone Urology at [facility] [place] [place] [id number] Fanta Price, RN Social History Tobacco Use Types Packs/Day Years Used Date Smoking Tobacco: Former Cigarettes Smokeless Tobacco: Never Comments:Quit 4 months ago p er pt. Alcohol Use Standard Drinks/Week Comments Not Currently 0 (1 standard drink = 0.6 oz pure alcohol) was a heavy drinker, now drinks <3beers per month [facility] Utilities Answer Date Recorded In the past 12 months has th e [employer], gas, oil, or water [employer] threatened to shut off services in your [...] any time in the past 12 m [facility], were you homeless or living in a custodial (including now)? No 07/30/2024 IPV Inpatient Questions [...] 08/01/2024 3:33 PM EST Copied from CRM #[id number]. Topic: Specialty Dept CRMs - Generic Call [...] patient for this medication . Please call [facility] at [phone] to advise documented in this encounter Plan of Treatment Upcoming Encounters Date Type Department Care Team (Late st Contact Info) Description 08/07/2024 1:30 PM EST [place] [address] 08/07/2024 3:30 PM EST [place]uled [place] [phone] documented as of this encounter Visit Diagnoses Not on filedocumented in this encounter Care Teams Weight Calculator Relationship Specialty Start Date End Date Cintia Jones, TECHNICAL SUPPORT INTERN [address] [place] [address] PCP - General Family Medicine 05/09/24 documented as of this encounter
--- OUTSIDE RECORDS SUMMARY | 2024-08-06 14:43 | XMS_ITS | Clinical Summary ---
Author Organization [facility] Address [facility] [place] [address] Care Team Providers Care Photography Coordinator Name Role Phone Cintia Jones Uzma WESTBROOK Primary Care Provider Allergies Active Allergy Reactions Criticality Noted Date Comments Simvastatin 02/24/2016 Carbamazepine 02/24/2016 Medications Medication Sig Dispensed Refills Start Date End Date Status citalopram (CELEXA) 20 mg Tablet Take 20 mg by mouth daily. Active tiotropium (SPIRIVA WITH HANDIHALER) 18 mcg Capsule, w/Inhalation Device Inhale 18 mcg into the lungs daily. Active multivitamin Mnui-Rf-NV-Min (THERAPEUTIC-M) 27-0.4 mg Tablet Take 1 tablet [...] daily. Active fluticasone propionate (FLONASE) 50 mcg/actuation [place], Suspension 1 spray daily. Act brian Joon [...] Team Description 08/05/2024 Telephone Radiation Oncology at [address] [address] Aye Sumner 08/01/2024 [place] [address] Fanta Price RN 07/29/2024 1:48 PM EST Anesthesia Event Main Operating Room [place] [phone] Robb Velasquez MD Bryan, Yvon F, MD 07/29/2024 12:15 PM EST - 07/29/2024 2:33 PM EST Surgery Main Operating Room [place] [phone] Joseph Frye MD CYSTO, RESECTION BLADDER TUMOR, GREATER THAN 5.0CM (WRVU 7.5) 07/29/2024 11:08 AM EST - 08/02/2024 1:56 PM EST Hospital Encounter Surgical Unit Level 4 Wing C at [place] [phone] Joseph Frye MD Unstable angina; Chest pain, unspecified type; Bladder tumor; Unsteady gait Discharge Disposition: Home with [facility]NA 07/29/2024 11:00 AM EST Laboratory [place] [address] 07/29/2024 Travel 06/02/2024 3:20 PM EDT Procedure visit Urology at [place] [phone] Louie Salazar MD Bladder mass; Acute cystitis with hematuria 06/02/2024 2:20 PM EDT Office Visit Urology at [facility] [address] Louie Salazar MD Bladder mass 05/09/2024 Transcribe Orders [facility] Incoming Referrals [phone] Cintia Jones APRN Dysuria; Hematuria, unspecified type; [...] heavy drinker, now drinks <3beers per month [facility] Utilities Answer Date Recorded In the past 12 months has th e [employer], gas, oil, or water [employer] threatened to shut off services in your [...] any time in the past 12 m [facility], were you homeless or living in a senior living (including now)? No 07/30/2024 [facility] Inpatient Questions Answer Date Recorded Does Anyone [...] 1:30 PM EST Clinical [place] [address] 08/07/2024 3:30 PM EST Scheduled [place] [address] Health Maintenance Due Date Last Done Comments [...] 2:50 AM EST Rectum Surgery Procedure Unlisted ([id number]) 07/29/2024 1:50 PM EST bladder tumor Cystourethroscopy, Fulgur >5Cm Lesn ([id number]) 07/29/2024 1:50 PM EST bladder tumor ANE [...] - 9.50 x10(3)/mc L 08/02/2024 5:11 AM [facility] Red Blood Cell 3.69(L) 4.58 - 5.54 x10(6)/mc L 08/02/2024 5:11 AM [facility] Hemoglobin 10.8(L) 13.7 - 16.5 g/dL 08/02/2024 5:11 AM [facility] Hematocrit 33.7(L) 40.5 - 48.5 % 08/02/2024 5:11 AM [facility] Mean Cell Volume 91.3 82.9 - 93.1 fL 08/02/2024 5:11 AM [facility] Mean Cell Hemoglobin 29.3 27.5 - 32.1 pg 08/02/2024 5:11 AM [facility] Mean Cell Hemoglobin Concentration 32.0 32.0 - 35.7 g/dL 08/02/2024 5:11 AM [facility] Platelet 297 145 - 357 x10(3)/mc L 08/02/2024 5:11 AM [facility] Mean Platelet Volume 9.4 7.6 - 12.9 fL 08/02/2024 5:11 AM [facility] RDW Standard Deviation 53.3(H) 36.0 - 45.0 fL 08/02/2024 5:11 AM [facility] RDW coefficient of variation 15.9(H) 11.4 - 13.8 % 08/02/2024 5:11 AM [facility] NRBC% auto 0.0 % 08/02/2024 5:11 AM [facility] NRBC Absolute <0.01 <0.01 x10(3)/mc L 08/02/2024 5:11 AM [facility] Neutrophil % 75.2 % 08/02/2024 5:11 AM [facility] Neutrophil Absolute (ANC) - Automated 8.09(H) 1.70 - 6.10 x10(3)/mc L 08/02/2024 5:11 AM [facility] Lymph % 9.0 % 08/02/2024 5:11 AM [facility] Lymph Absolute 0.97 0.90 - 3.20 x10(3)/mc L 08/02/2024 5:11 AM [facility] Monocyte % 9.0 % 08/02/2024 5:11 AM [facility] Monocyte Absolute 0.97(H) 0.30 - 0.90 x10(3)/mc L 08/02/2024 5:11 AM [facility] Eos % 5.5 % 08/02/2024 5:11 AM [facility] Eos Absolute 0.59(H) 0.00 - 0.40 x10(3)/mc L 08/02/2024 5:11 AM [facility] Basophil % 0.6 % 08/02/2024 5:11 AM [facility] Baso Absolute 0.07 0.00 - 0.10 x10(3)/mc L 08/02/2024 5:11 AM [facility] Immature Gran % 0.7 % 5:11 AM [facility] Immature Gran Absolute 0.08(H) 0.00 - 0.04 x10(3)/mc L 08/02/2024 5:11 AM [facility] Blood VENOUS BLOOD SPECIMEN / Unknown Venipuncture / Unknown 08/02/2024 4:52 AM EST 08/02/2024 5:03 AM EST Joseph Frye MD HEMATOLOGY ORDERAB LES [facility] [place] [address] * (ABNORMAL) Basic Metabolic Panel (08/02/2024 4:52 AM EST) Only the most recent of4 resultswithin the time period is included. Glucose 146 65 - 199 mg/dL 08/02/2024 5:35 AM EST [facility] Comment:Glucose Concentratio n >=200 mg/dL plus symptoms is consistent with Diabetes Mellitus. Blood Urea Nitrogen 18 10 - 20 mg/dL 08/02/2024 5:35 AM EST [facility] Creatinine 0.92 0.80 - 1.50 mg/dL 08/02/2024 5:35 AM EST [facility] Sodium 133(L) 135 - 145 mMol/L 08/02/2024 5:35 AM [facility] Potassium 4.1 3.5 - 5.0 mMol/L 08/02/2024 5:35 AM [facility] Chloride 96(L) 98 - 107 mMol/L 08/02/2024 5:35 AM EST [facility] Carbon Dioxide 28 22 - 31 mMol/L 08/02/2024 5:35 AM EST [facility] Anion Gap 9 5 - 15 mMol/L 08/02/2024 5:35 AM [facility] Calcium 9.9 8.5 - 10.5 mg/dL 08/02/2024 5:35 AM [facility] Est Glomerular Filtration Rate - Male 91 mL/min/1. 73 m?? 08/02/2024 5:35 AM [facility] Comment: This patient's estimated GFR [...] EST Joseph Frye [place] [address] * IR Nephrostomy Tube Placement Percutaneous Left [...] which were correct. The patient was positioned [id number] on the procedure table. ??The Left flank [...] present throughout the procedure. Joseph Frye MD [facility] IR ORDERABLES * Urine culture (07/30/2024 12:45 PM EST) Only the most recent of2 resultswithin the time period is included. Urine Culture No growth 08/01/2024 7:48 AM EST [facility] Urine URINE SPECIMEN FROM NEPHROSTOMY TUBE / Unknown Non Blood Collection / Unknown 07/30/2024 12:45 PM EST 07/30/2024 2:05 PM EST Jamin Ugarte MD MICROBIOLOGY - GENER AL ORDERABLES [facility] [place] [address] * CT Chest Abdomen Pelvis w Contrast (Generic) (07/30/2024 2:50 AM EST) WORKSTATION ID [id number] RAD Anatomical Region Laterality Modality Abdomen, Pelvis [...] who have questions please contact the health resident care aide that requested your imaging first. ? Electronically signed by: Demetrius Washington [facility] ([phone]), at 07/30/2024 7:42 AM Narrative 07/30/2024 7:42 [...] kidney is unremarkable. Bladder: Although decompressed by Villalobos catheter, there is abnormal bladder wall thickening [...] patients who have questions please contactthe health resident care aide that requested your imaging first. Electronically signed by: Demetrius [facility]([phone]), at 07/30/2024 7:42 AM Joseph Frye MD IMG CT ORDERABLES * [...] Velasquez MD ?? ~~~~~~~~~~~~~~~~~~~~~~~~~~~~~~~~~~~~~~~~~~~~~~~~~~~~~~~~~~~~ Robb Velasquez MD [facility] * EKG 12 Lead (07/29/2024 1:16 PM EST) [facility] Ventricular rate 79 BPM MUSE SYSTEM Atrial Rate 79 BPM MUSE SYSTEM P-R Interval 120 ms MUSE SYSTEM QRS Duration 92 ms MUSE SYSTEM Q-T Interval 400 ms MUSE SYSTEM QTC Calculated (Bezet) 458 ms MUSE SYSTEM Calculated P [place] 7 degrees MUSE SYSTEM Calculated R [place] 70 degrees MUSE SYSTEM Calculated T [place] 88 degrees MUSE SYSTEM INTERPRETATION Normal sinus [...] 65 - 99 mg/dL 07/29/2024 12:10 PM [facility] Comment: Fasting Glucose Interpretive Criteria: [...] 10 - 20 mg/dL 07/29/2024 12:10 PM [facility] Creatinine 0.88 0.80 - 1.50 mg/dL 07/29/2024 12:10 PM [facility] Sodium 134(L) 135 - 145 mMol/L 07/29/2024 12:10 PM [facility] Potassium 4.8 3.5 - 5.0 mMol/L 07/29/2024 12:10 PM [facility] Chloride 93(L) 98 - 107 mMol/L 07/29/2024 12:10 PM [facility] Carbon Dioxide 29 22 - 31 mMol/L 07/29/2024 12:10 PM [facility] Anion Gap 12 5 - 15 mMol/L 07/29/2024 12:10 PM [facility] Calcium 9.9 8.5 - 10.5 mg/dL 07/29/2024 12:10 PM [facility] Protein, Total 7.6 6.1 - 8.0 g/dL 07/29/2024 12:10 PM [facility] Albumin 3.7 3.2 - 5.2 g/dL 07/29/2024 12:10 PM [facility] Aspartate Aminotransferase 19 <=39 unit/L 07/29/2024 12:10 PM [facility] Alanine Aminotransferase 20 0 - 55 unit/L 07/29/2024 12:10 PM [facility] Alkaline Phosphatase 85 40 - 130 unit/L 07/29/2024 12:10 PM [facility] Bilirubin, Total 0.4 <=1.3 mg/dL 07/29/2024 12:10 PM [facility] Est Glomerular Filtration Rate - Male 94 mL/min/1. 73 m?? 07/29/2024 12:10 PM [facility] Comment: This patient's estimated GFR [...] Foundation Fasting Status Yes 07/29/2024 12:10 PM [facility] Blood VENOUS BLOOD SPECIMEN / Unknown Venipuncture / Unknown 07/29/2024 11:20 AM EST 07/29/2024 11:20 AM EST Joseph Frye MD CHEMISTRY ORDERABL ES [facility] [place] [address] * CYSTOURETHROSCOPY (06/02/2024 3:20 PM EDT) Narrative [...] Documents on File Type Date Recorded Patient Teacher Of Family And Consumer Science Expl anation Advance Directives and Livin g [...] capacity to make decision: Yes Care Teams Photography Coordinator Relationship Specialty Start Date End Date Cintia Jones, SHUTTLE FITTING SUPERVISOR [place] [address] PCP - General Family Medicine 05/09/24
--- OUTSIDE RECORDS SUMMARY | 2024-08-06 14:43 | XMS_ITS | Encounter Summary ---
Author [facility] Address [facility] [place] [address] Care Team Providers Care Continuous Improvement Lead Name Role Phone Cintia Jones DARIANA Primary Care Provider Encounter Details Date Type Department Care Team (Late st Contact Info) Description 08/05/2024 Telephone Radiation Oncology at [address] [address] Aye Sumner Social History Tobacco Use Types Packs/Day Years Used Date Smoking Tobacco: Former Cigarettes Smokeless Tobacco: Never Comments:Quit 4 months ago p er pt. Alcohol Use Standard Drinks/Week Comments Not Currently 0 (1 standard drink = 0.6 oz pure alcohol) was a heavy drinker, now drinks <3beers per month [facility] Utilities Answer Date Recorded In the past 12 months has th e electric, gas, oil, or water [employer] threatened to shut off services in your [...] any time in the past 12 m [facility], were you homeless or living in a assisted (including now)? No 07/30/2024 IPV Inpatient Questions [...] 1:30 PM EST Clinical [place] [address] 08/07/2024 3:30 PM EST Scheduled [place] [address] documented as of this encounter Visit Diagnoses Not on filedocumented in this encounter Care Teams Continuous Improvement Lead Relationship Specialty Start Date End Date [place] [address] PCP - General Family Medicine 05/09/24 documented as of this encounter
--- OUTSIDE RECORDS SUMMARY | 2024-08-06 14:43 | XMS_ITS | Encounter Summary ---
Author Organization [facility] Address [facility] [place] [address] Care Team Providers Care Harness Cleaner Name Role Phone Cintia Jones APRN Primary Care Provider [phone] Reason for Visit * Auth/Cert (Routine) Specialty Diagnoses / Procedures Referred By Christin connelly Referred To Contact Diagnoses Bladder tumor to Procedures PRO CYSTOURETHROSCOPY, FULGUR >5CM LESN PRO CYSTOURETHROSCOPY, URETER CATHETER CYSTO, RESECTION BLADDER TUMOR, GREATER THAN 5.0CM (WRVU 7.5) CYSTO, RETROGRADE, URETEROPYELOGRAPHY (WRVU 2.37) Joseph Frye MD [facility] [place] [address] [facility] Referral ID Status Reason Start Date Expiration Date Visits Re quested Visits Authorized [id number] 1 1 Encounter Details Date Type Department Care Team (Late st Contact Info) Description 07/29/2024 11:00 AM EST Laboratory [place] [address] Social History Tobacco Use Types Packs/Day Years Used Date Smoking Tobacco: Former Cigarettes Smokeless Tobacco: Never Comments:Quit 4 months ago p er pt. Alcohol Use Standard Drinks/Week Comments Not Currently 0 (1 standard drink = 0.6 oz pure alcohol) was a heavy drinker, now drinks <3beers per month [facility] Utilities Answer Date Recorded In [...] any time in the past 12 m [facility], were you homeless or living in a intermediate (including now)? No 07/30/2024 IPV Inpatient Questions [...] 1:30 PM EST Clinical [place] [address] 08/07/2024 3:30 PM EST Scheduled View [place] [address] documented as of this encounter Procedures Procedure Name Priority Date/Time Associated Diagnosis Comments CBC (WITH DIFF) Routine 07/29/2024 11:20 AM EST COMPREHENSIVE METABOLIC PANEL Routine 07/29/2024 11:20 AM EST documented in this encounter Results * (ABNORMAL) Comprehensive metabolic panel (07/29/2024 11:20 AM EST) Glucose 137(H) 65 - 99 mg/dL 07/29/2024 12:10 PM [facility] Comment: Fasting Glucose Interpretive Criteria: [...] 10 - 20 mg/dL 07/29/2024 12:10 PM [facility] Creatinine 0.88 0.80 - 1.50 mg/dL 07/29/2024 12:10 PM [facility] Sodium 134(L) 135 - 145 mMol/L 07/29/2024 12:10 PM [facility] Potassium 4.8 3.5 - 5.0 mMol/L 07/29/2024 12:10 PM [facility] Chloride 93(L) 98 - 107 mMol/L 07/29/2024 12:10 PM [facility] Carbon Dioxide 29 22 - 31 mMol/L 07/29/2024 12:10 PM [facility] Anion Gap 12 5 - 15 mMol/L 07/29/2024 12:10 PM [facility] Calcium 9.9 8.5 - 10.5 mg/dL 07/29/2024 12:10 PM [facility] Protein, Total 7.6 6.1 - 8.0 g/dL 07/29/2024 12:10 PM [facility] Albumin 3.7 3.2 - 5.2 g/dL 07/29/2024 12:10 PM [facility] Aspartate Aminotransferase 19 <=39 unit/L 07/29/2024 12:10 PM [facility] Alanine Aminotransferase 20 0 - 55 unit/L 07/29/2024 12:10 PM [facility] Alkaline Phosphatase 85 40 - 130 unit/L 07/29/2024 12:10 PM EST [facility] Bilirubin, Total 0.4 <=1.3 mg/dL 07/29/2024 12:10 PM EST [facility] Est Glomerular Filtration Rate - Male 94 mL/min/1. 73 m?? 07/29/2024 12:10 PM EST [facility] Comment: This patient's estimated GFR [...] Foundation Fasting Status Yes 07/29/2024 12:10 PM [facility] Blood VENOUS BLOOD SPECIMEN / Unknown Venipuncture / Unknown 07/29/2024 11:20 AM EST 07/29/2024 11:20 AM EST Joseph Frye MD CHEMISTRY ORDERABL ES [facility] [place] [address] * (ABNORMAL) CBC (with Diff) (07/29/2024 11:20 AM EST) White Blood Cell 14.60(H) 4.00 - 9.50 x10(3)/mc L 07/29/2024 11:46 AM EST [facility] Red Blood Cell 4.30(L) 4.58 - 5.54 x10(6)/mc L 07/29/2024 11:46 AM EST [facility] Hemoglobin 12.7(L) 13.7 - 16.5 g/dL 07/29/2024 11:46 AM EST [facility] Hematocrit 39.3(L) 40.5 - 48.5 % 07/29/2024 11:46 AM [facility] Mean Cell Volume 91.4 82.9 - 93.1 fL 07/29/2024 11:46 AM [facility] Mean Cell Hemoglobin 29.5 27.5 - 32.1 pg 07/29/2024 11:46 AM [facility] Mean Cell Hemoglobin Concentration 32.3 32.0 - 35.7 g/dL 07/29/2024 11:46 AM [facility] Platelet 419(H) 145 - 357 x10(3)/mc L 07/29/2024 11:46 AM [facility] Mean Platelet Volume 9.0 7.6 - 12.9 fL 07/29/2024 11:46 AM [facility] RDW Standard Deviation 51.8(H) 36.0 - 45.0 fL 07/29/2024 11:46 AM [facility] RDW coefficient of variation 15.6(H) 11.4 - 13.8 % 07/29/2024 11:46 AM [facility] NRBC% auto 0.0 % 07/29/2024 11:46 AM [facility] NRBC Absolute <0.01 <0.01 x10(3)/mc L 07/29/2024 11:46 AM [facility] Neutrophil % 83.0 % 07/29/2024 11:46 AM [facility] Neutrophil Absolute (ANC) - Automated 12.11(H) 1.70 - 6.10 x10(3)/mc L 07/29/2024 11:46 AM [facility] Lymph % 6.2 % 07/29/2024 11:46 AM [facility] Lymph Absolute 0.91 0.90 - 3.20 x10(3)/mc L 07/29/2024 11:46 AM [facility] Monocyte % 8.7 % 07/29/2024 11:46 AM [facility] Monocyte Absolute 1.27(H) 0.30 - 0.90 x10(3)/mc L 07/29/2024 11:46 AM EST [facility] Eos % 1.0 % 07/29/2024 11:46 AM EST [facility] Eos Absolute 0.15 0.00 - 0.40 x10(3)/mc L 07/29/2024 11:46 AM EST [facility] Basophil % 0.6 % 07/29/2024 11:46 AM EST [facility] Baso Absolute 0.09 0.00 - 0.10 x10(3)/mc L 07/29/2024 11:46 AM EST [facility] Immature Gran % 0.5 % 11:46 AM [facility] Immature Gran Absolute 0.07(H) 0.00 - 0.04 x10(3)/mc L 07/29/2024 11:46 AM EST [facility] Blood VENOUS BLOOD SPECIMEN / Unknown Venipuncture / Unknown 07/29/2024 11:20 AM EST 07/29/2024 11:20 AM EST Joseph Frye MD HEMATOLOGY ORDERAB LES [facility] [place] [address] documented in this encounter Visit Diagnoses Not on filedocumented in this encounter Care Teams Harness Cleaner Relationship Specialty Start Date End Date Cintia Jones, INDUSTRIAL GAS PRODUCTION [place]PER[place] [address] PCP - General Family Medicine 05/09/24 documented as of this encounter
--- OUTSIDE RECORDS SUMMARY | 2024-08-06 14:43 | XMS_ITS | Encounter Summary ---
Author Organization [facility] Address [facility] [place] [address] Care Team Providers Care Cuff Maker Name Role Phone Cintia Jones DARIANA Primary Care Provider [phone] Reason for Referral * Home Health Care (Routine) - Authorized Specialty Diagnoses / Procedures Referred By Contac t Referred To Contact Diagnoses Unsteady gait Umu Frye MD [facility] [place] [address] Home Health & [address] [place] [address] Referral ID Status Reason Start Date Expiration Date Visits Requested Visits Authorized [id number] Authorized Consult, Test & Treat 08/02/2024 01/29/2025 999 999 * Consultation (Routine) - Authorized Specialty Diagnoses / Procedures Referred By Contac t Referred To Contact Radiation Oncology Diagnoses Bladder tumor Sujatha Marin MD [facility] [place] [address] [address] Rad Onc Office [address] [place] [phone] Referral ID Status Reason Start Date Expiration Date Visits Requested Visits Authorized [id number] Authorized Consult, Test & Treat 07/31/2024 07/31/2025 1 1 * Diagnostic Test (Routine) - Authorized Specialty Diagnoses / Procedures Referred By Contac t Referred To Contact Radiology Diagnoses Bladder tumor Procedures IR Nephrostomy Tube Exchange Left Juliocesar Howe MD [facility] [place] [address] [place] [address] Referral ID Status Reason Start Date Expiration Date Visits Requested Visits Authorized [id number] Authorized Specialty Service Requested 01/27/2026 1 1 Reason for Visit * Auth/Cert (Routine) Specialty Diagnoses / Procedures Referred By Christin connelly Referred To Contact Diagnoses Bladder tumor to md Procedures PRO CYSTOURETHROSCOPY, FULGUR >5CM LESN PRO CYSTOURETHROSCOPY, URETER CATHETER CYSTO, RESECTION BLADDER TUMOR, GREATER THAN 5.0CM (WRVU 7.5) CYSTO, RETROGRADE, URETEROPYELOGRAPHY (WRVU 2.37) Umu Frye MD [facility] [place] [address] [facility] Referral ID Status Reason Start Date Expiration Date Visits Re quested Visits Authorized [id number] 1 1 Encounter Details Date Type Department Care Team (Latest Contact Info) Description 07/29/2024 11:08 AM EST - 08/02/2024 1:56 PM EST Hospital Encounter Surgical Unit Level 4 [place] [address] Umu Frye MD [facility] [place] [address] Unstable angina; Chest pain, unspecified type; Bladder tumor; Unsteady gait Discharge Disposition: Home with VNA Social History Tobacco Use Types Packs/Day Years Used Date Smoking Tobacco: Former Cigarettes Smokeless Tobacco: Never Comments:Quit 4 months ago p er pt. Alcohol Use Standard Drinks/Week Comments Not Currently 0 (1 standard drink = 0.6 oz pure alcohol) was a heavy drinker, now drinks <3beers per month [facility] Utilities Answer Date Recorded In the past [...] time in the past 12 m [facility], were you homeless or living in a [place] health care facility (including now)? No 07/30/2024 DH IPV Inpatient [...] Jimenez Marin Patient Age: 69 y.o. Language: [place] Race: White Ethnicity: Not nor Admit date: [...] 07/29/2024 History of Presentation: (from admission H&P) iJmenez Marin is a 69 y.o. male with a history of COPD, AK s/p stents, recently quit smoking, gross hematuria, [...] also sees a palliative care physician in [facility],but doesn't know her name and doesn't know [...] Hospital Course: Patient was admitted electively to [facility] via the same day [...] best judgement (pending path report), he has [id number] bladder cancer, I.e., locally advanced. Given his overall poor health, he is not a candidate for radical cystectomy. Given bulk of disease,he is not a candidate for bladder sparing trimodal therapy. Thus, goals of care are palliative. We referred him for consideration of palliative radiotherapy to [facility]. Given his poor overall health and extent of cancer, I believe his life expectancy is less than 1 year. Our palliative care connected with his palliative care physician in [facility] Who will provide follow-up. Discharge was delayed [...] yann - CRISTIANE w/ Palliative care at [facility] 08/05 w/ Dr Byrd -Cx: Ucx added [...] 07/30/2024 2:50 AM) Result Value WORKSTATION ID [id number] Impression 1. Although decompressed by Ferris catheter, [...] who have questions please contact the health home care attendant that requested your imaging first. Pending Studies [...] the lungs 2 times daily. Generic drug: avunrnrqrx-tuntajtypkwdas-hqbiegybij 2 puff Refills: 0 citalopram 20 mg [...] mouth daily. 15 mg Refills: 0 multivitamin Bccp-Vi-SS-Min 27-0.4 mg Tablet Commonly known as: Therapeutic-M [...] to urinate, please call our office at [phone] before 5PM or [phone] after hours or go to your localEmergency [...] more blood in your urine - The [facility] palliative care team has recommended opioid pain medication to be prescribe. You have been prescribed OxyContin 10mg twice daily, and oxycodone 5mg every 4 hours as needed for breakthroughpain. We will send you on a 4-5 day prescription of this medication and your [facility] palliative care team will fill/change all future refills. Follow-up: - An appointment has been scheduled as below. Please call [phone] (clinic number for appointments) to confirm date [...] Department Center 08/07/2024 1:30 PM UROLOGY, NURSE [facility] 08/07/2024 3:30 PM UROLOGY, NURSE [facility] You have been scheduled an appointment with your [facility] Palliative Care team with Dr. Bethany [...] coffee grounds or cat litter. General Instructions [facility] Vascular and Interventional Radiology Discharge Instructions [...] connecting tubing from the drain. Put a predatory hunter on both the drain and the bag. [...] is during regular office hours, please call [phone]. If it is after regular office hours, or on weekends or holidays, please call [phone] and ask to speak to the Security Screener food preparation kitchen aide for Interventional Radiology. You have received medication [...] 08/07/2024 1:30 PM UROLOGY, NURSE Urology at [facility] Arrive at: It Generalist Area [phone] 08/07/2024 3:30 PM UROLOGY, NURSE Urology at [facility] Arrive at: It Generalist Area [phone] Future Orders Complete By Expires IR Nephrostomy Tube Exchange Left [[id number] Custom] 10/30/2024 11/27/2024 Process Instructions: Scheduling Instructions: Questions: Where will study be performed?: [facility] Radiology To be scheduled: Next available after expected date Reason for exam and clinical history: Left ureteral malignant obstruction, probable invasive bladder tumor with left hydronephrosis and flank pain, left ureteral orifice not visualized. Left 10 Namibian PCN placed 07/30/2024 Exam/Procedure requested: What labs [...] [facility] [address] [facility] [address] (home) Date of : 1955 Inpatient DOCUMENTATION FOR VNA SERVICES (INCLUDING THOSE PATIENTS WITH MEDICARE COVERAGE REQUIRING HOME VNA SERVICES AND/OR HOSPICE SERVICES) PATIENT'S LOCATION: Jimenez Marin [address] [facility] [address] (home) Cell: Telephone Information: Spares Scheduler's Name: Self/Patient In discussion with the attending physician, it is certified that this patient is under their care and that they, or a Nurse Practitioner, Clinical Nurse specialist or Physician Memorial Designer who is working directly with them, had [...] for managing ADLs. HOME HEALTH CARE AGENCY: [facility]. [address] [place] [address] START OF CARE: within 24-48 hours of [...] APRN [address] [place] [address] . All VNA agencies whichcover the area [...] Department Center 08/07/2024 1:30 PM UROLOGY, NURSE [facility] 08/07/2024 3:30 PM UROLOGY, NURSE [facility] Primary Care Provider: Cintia Jones APRN [phone] Follow-up Recommendations for Providers: See lung CT findings above regarding wedge shaped plaque in right lung upper lobe. Assess and possible further outpatient workup. In setting of previous AK patient was on Plavix, but this was [...] was managed by the Urology Team at [facility]. If you have any questions or concerns, please feel free to contact us. Provider Contact Information: Urology Clinic: [facility] (after business hours): Time spent on discharge plannin minutes DIANA Zhao 08/02/2024 * Wale Torrez PA - 07/30/2024 2:42 PM EST Images from the original note were not included. Discharge Summary Patient Name: Jimenez Marin Patient Age: 69 y.o. Language: [place] Race: White Ethnicity: Not nor Admit date: 07/29/2024 Discharge date: 08/01/2024 Attending Physician: Umu rFye MD Discharge Diagnoses (Hospital Problems) and Secondary [...] y.o. male with a history of COPD, AK s/p stents, recently quit smoking, gross hematuria, [...] also sees a palliative care physician in [facility],but doesn't know her name and doesn't know [...] Hospital Course: Patient was admitted electively to [facility] via the same day [...] best judgement (pending path report), he has [id number] bladder cancer, I.e., locally advanced. Given his overall poor health, he is not a candidate for radical cystectomy. Given bulk of disease,he is not a candidate for bladder sparing trimodal therapy. Thus, goals of care are palliative. We referred him for consideration of palliative radiotherapy to [facility]. Given his poor overall health and extent of cancer, I believe his life expectancy is less than 1 year. Our palliative care connected with his palliative care physician in [facility] Who will provide follow-up. He remained afebrile, [...] yann - CRISTIANE w/ Palliative care at [facility] 08/05 w/ Dr Byrd -Cx: Ucx added [...] 07/30/2024 2:50 AM) Result Value WORKSTATION ID [id number] Impression 1. Although decompressed by Ferris catheter, [...] who have questions please contact the health home care attendant that requested your imaging first. Pending Studies [...] the lungs 2 times daily. Generic drug: uayciohfnk-ngeffykgjrkzxt-yogpmuodrb 2 puff Refills: 0 citalopram 20 mg [...] mouth daily. 15 mg Refills: 0 multivitamin Qanp-So-MV-Min 27-0.4 mg Tablet Commonly known as: Therapeutic-M [...] to urinate, please call our office at [phone] before 5PM or [phone] after hours or go to your localEmergency [...] more blood in your urine - The [facility] palliative care team has recommended opioid pain medication to be prescribe. You have been prescribed OxyContin 10mg twice daily, and oxycodone 5mg every 4 hours as needed for breakthroughpain. We will send you on a 4-5 day prescription of this medication and your [facility] palliative care team will fill/change all future refills. Follow-up: - An appointment has been scheduled as below. Please call [phone] (clinic number for appointments) to confirm date [...] call our office. Future Appointments Date Time [facility] 08/07/2024 1:30 PM UROLOGY, NURSE [facility] 08/07/2024 3:30 PM UROLOGY, NURSE [facility] You have been scheduled an appointment with your [facility] Palliative Care team with Dr. Bethany [...] coffee grounds or cat litter. General Instructions [facility] Vascular and Interventional Radiology Discharge Instructions [...] connecting tubing from the drain. Put a predatory hunter on both the drain and the bag. [...] is during regular office hours, please call [phone]. If it is after regular office hours, or on weekends or holidays, please call [phone] and ask to speak to the Security Screener food preparation kitchen aide for Interventional Radiology. You have received medication [...] 08/07/2024 1:30 PM UROLOGY, NURSE Urology at [facility] Arrive at: It Generalist Area [phone] 08/07/2024 3:30 PM UROLOGY, NURSE Urology at [facility] Arrive at: It Generalist Area [phone] Future Orders Complete By Expires IR Nephrostomy Tube Exchange Left [[id number] Custom] 10/30/2024 11/27/2024 Process Instructions: Scheduling Instructions: Questions: Where will study be performed?: [facility] Radiology To be scheduled: Next available after expected date Reason for exam and clinical history: Left ureteral malignant obstruction, probable invasive bladder tumor with left hydronephrosis and flank pain, left ureteral orifice not visualized. Left 10 Namibian PCN placed 07/30/2024 Exam/Procedure requested: What labs [...] Department Center 08/07/2024 1:30 PM UROLOGY, NURSE [facility] 08/07/2024 3:30 PM UROLOGY, NURSE [facility] Primary Care Provider: Cintia Jones APRN [phone] Follow-up Recommendations for Providers: See lung CT findings above regarding wedge shaped plaque in right lung upper lobe. Assess and possible further outpatient workup. In setting of previous AK patient was on Plavix, but this was [...] was managed by the Urology Team at [facility]. If you have any questions or concerns, please feel free to contact us. Provider Contact Information: Urology Clinic: [facility] (after business hours): Time spent on discharge plannin minutes DIANA Sevilla 08/01/2024 documented in this encounter Discharge Instructions * Discharge Instructions* Juli Howe RN - 07/30/2024 12:47 PM EST Images from the original note were not included. [facility] Vascular and Interventional Radiology Discharge Instructions [...] connecting tubing from the drain. Put a predatory hunter on both the drain and the bag. [...] is during regular office hours, please call [phone]. If it is after regular office hours, or on weekends or holidays, please call [phone] and ask to speak to the Security Screener food preparation kitchen aide for Interventional Radiology. You have received medication [...] to urinate, please call our office at [phone] before 5PM or [phone] after hours or go to your localEmergency [...] more blood in your urine - The [facility] palliative care team has recommended opioid pain medication to be prescribe. You have been prescribed OxyContin 10mg twice daily, and oxycodone 5mg every 4 hours as needed for breakthroughpain. We will send you on a 4-5 day prescription of this medication and your [facility] palliative care team will fill/change all future refills. Follow-up: - An appointment has been scheduled as below. Please call [phone] (clinic number for appointments) to confirm date [...] Department Center 08/07/2024 1:30 PM UROLOGY, NURSE [facility] URO [facility] 08/07/2024 3:30 PM UROLOGY, NURSE [facility] You have been scheduled an appointment with your [facility] Palliative Care team with Dr. Bethany [...] * Indwelling Urinary Catheter Care: General Info ([place]an) documented in this encounter Medications at Time [...] mouth daily. fluticasone propionate (FLONASE) 50 mcg/actuation Mayer, Suspension 1 spray daily. lisinopril (PRINIVIL;ZESTRIL) 10 mg Tablet Take 10 mg by mouth daily. aspirin 81 mg Tablet, Delayed Release (E.C.) Take 81 mg by mouth daily. omeprazole (PRILOSEC) 20 mg Capsule, Delayed Release(E.C.) Take 20 mg by mouth daily. traZODone (DESYREL) 100 mg Tablet Take 100 mg by mouth nightly. multivitamin Rgpp-Hf-EY-Min (THERAPEUTIC-M) 27-0.4 mg Tablet Take 1 tablet [...] Volunteer Rides to request a ride home. [facility] has arranged for a dedicated driver to pick the patient up at Entrance 2 at 1:00pm. The volunteer dedicated driver is Sharan and he will have a [employer]. Providers updates. Tiara Joseph [facility] Office of Case Management-Community Cultural Development Officer Clinical Community Cultural Development Officer ED CDU SDP , Pager [phone] * Sujatha Marin MD - 08/01/2024 4:48 PM EST Urology Inpatient Progress Note Patient Name: Jimenez Marin Patient Age: 69 y.o. Birthdate: 1955 Admit date: 07/29/2024 Attending Physician: Umu Frye MD ID: Jimenez Marin is a 69 y.o. male, w/ PMHx of COPD, AK s/p stents, recent smoker, chronic CP/SOBon home [...] (Generic) Result Value Ref Range WORKSTATION ID [id number] CBC (with Diff) Result Value Ref Range [...] 07/30/2024 2:50 AM) Result Value WORKSTATION ID [id number] Impression 1. Although decompressed by Ferris catheter, [...] who have questions please contact the health home care attendant that requested your imaging first. Electronically signed by: Demetrius Washington, [facility] ([phone]), at 07/30/2024 7:42 AM ASSESSMENT: Jimenez Marin w/PMHx of COPD, AK s/p stents, recent smoker, chronic CP/SOB on [...] at an OSH for his COPD and [facility] palliative have connected with them and will transition his care upon discharge. Additionally upon discharge he will benefit from palliative radiation and a consult was placed to [facility] for future care. He is severely comorbid [...] is a 69 y.o. single male from [place], [place] with advanced COPD on O2, ASCVD [...] been seen by Dr. Bethany Byrd of [facility] Palliative Medicine Clinic related to his COPD (last visit in February predated his recent cancer diagnosis). [facility] highlights: 07/29 cystoscopy, resection [...] on cartoons) and expressed interest in the [employer] channel. He does not have TV at [...] also shared that I had contacted his [facility] Palliative Care provider's office and they are [...] a request for Palliative Radiation in 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 Does not name any family members who he is close with. Lives with a roommate, Erich Hawley, [place], [place] with beautiful views. No pets, but [...] is a(n) 69 y.o. single male from [place], [place] with advanced COPD on O2, ASCVD [...] looks [place]. Regarding physical symptoms, Jimenez has cancer [...] today 08/01, Jimenez's Palliative Care team in [facility] (Dr. Byrd) was kindly able to [...] had extensive conversations with Dr. Byrd (Palliative [facility]) about trying to identify a surrogate and is okay with having one appointed if needed as he does not feel any family/friends would be appropriate. See media tab for AD 03/04/24 Follow-up wit outpatient palliative care provider, Dr. Bethany Byrd, at [facility] Pall[facility] Medicine [facility] ([phone]) as below #Serious illness-associated symptom recommendations #Cancer [...] shared a value for visitors/company (including Volunteers, [employer]). He shared insight the hearing difficult news is hard while also knowing that the information is helpful for planning. He has had bucket lists in the past but nothing right at this moment. Will continue to explore. -Screened for spiritual care needs? Yes--declined -Primary hospice care consultant: None; has some support from his roommate, Erich -Interdisciplinary Team members engaged: [] Palliative TELEMARKETER; [] BIT involved; [x] [employer]; [] [...] SundayAUGUST 05 at 10:30AM. Address is [facility], [address] [place] [address], [address], [place] [address]. I wrote this down for Jimenez and reviewed it in person. He repeated back that he has an appointment with [facility] Palliative Care next Sunday at 1030. He knows that he will discharge with enough pain medicine to get to this appointment and then they will take over. He relayed he knows how to arrange transportation. Fredrick Ritchie MD Palliative care team pager #[phone] ~50 minutes were spent over the course [...] 69 y.o. male, w/ PMHx of COPD, AK s/p stents, recent smoker, chronic CP/SOBon home [...] QTC Calculated (Bezet) 458 ms Calculated P [place] 7 degrees Calculated R [place] 70 degrees Calculated T [place] 88 degrees INTERPRETATION Normal sinus rhythm T wave abnormality, consider lateral ischemia Abnormal ECG When compared with ECG of 15-JUN-2018 10:36, T wave inversion now evident in Anterolateral leads Confirmed by MD Staci, Kev ([id number]) on 07/29/2024 4:00:[address] Chest Abdomen Pelvis w Contrast (Generic) Result Value Ref Range WORKSTATION ID [id number] CBC (with Diff) Result Value Ref Range [...] 07/30/2024 2:50 AM) Result Value WORKSTATION ID [id number] Impression 1. Although decompressed by Ferris catheter, [...] who have questions please contact the health home care attendant that requested your imaging first. Electronically signed by: Demetrius Washington, [facility] ([phone]), at 07/30/2024 7:42 AM ASSESSMENT: Jimenez Marin w/PMHx of COPD, AK s/p stents, recent smoker, chronic CP/SOB on [...] at an OSH for his COPD and [facility] palliative will attempt to reach out to him to coordinate transition of care. We will request an attending-attending with palliative care to better disucss his prognosis and needs prior to discharge. Additionally upon discharge he will benefit from palliative radiation and a consult was placed to [facility] for future care. He is severely comorbid [...] of two midnights or [facility] (status C) due to: post-operative care that cannotbe delivered as an outpatient; examples: pain only controlled with IV pain medication; frequent or complex wound care/dressing changes; NPO requiring IV fluid support. I also discussed the patient's care with the palliative care team. Based on my best judgement (pending path report), he has [id number] bladder cancer, I.e., locally advanced. Given his overall poor health, he is not a candidate for radical cystectomy. Given bulk of disease,he is not a candidate for bladder sparing trimodal therapy. Thus, goals of care are palliative. We referred him for consideration of palliative radiotherapy to [facility]. Given his poor overall health and extent of cancer, I believe his life expectancy is less than 1 year. Our palliative care connected with his palliative care physician in [facility] Who will provide follow-up. Anticipate patient will be ready for d/c to home tomorrow. Umu Frye MD, MS 07/31/2024 Urologic Oncology [facility], [place], [place] recovery unit operator (Urology) and of [facility], [facility] at [facility] * Gian Talbert RN - 07/31/2024 [...] Illness: also consider consultation to BIT and food preparation kitchen aide if appropriate History of Present Illness: Jimenez Marin is a(n) 69 y.o. male from [facility] with newly diagnosed Muscle invasive bladder cancer, admitted for planned TURBT. History with Palliative Care: Chart review shows that he worked with Palliative Care MD in [facility], though he was not sure her name. Call to [facility], who confirms Jimenez has [...] Full consultation to follow Outpatient Established with [facility] [facility], last visit 03/02 Delfina Rivera, RN Inpatient Nurse Clinician Palliative care team pager #[phone] * Sujatha Marin MD - 07/30/2024 1:59 PM EST Urology Inpatient Progress Note Patient Name: Jimenez Marin Patient Age: 69 y.o. Birthdate: 1955 Admit date: 07/29/2024 Attending Physician: Umu Frye MD ID: Jimenez Marin is a 69 y.o. male, w/ PMHx of COPD, AK s/p stents, recent smoker, chronic CP/SOBon home [...] QTC Calculated (Bezet) 458 ms Calculated P [place] 7 degrees Calculated R [place] 70 degrees Calculated T [place] 88 degrees INTERPRETATION Normal sinus rhythm T wave abnormality, consider lateral ischemia Abnormal ECG When compared with ECG of 15-JUN-2018 10:36, T wave inversion now evident in Anterolateral leads Confirmed by MD Staci, Kev ([id number]) on 07/29/2024 4:00:[address] Chest Abdomen Pelvis w Contrast (Generic) Result Value Ref Range WORKSTATION ID [id number] CBC (with Diff) Result Value Ref Range [...] 07/30/2024 2:50 AM) Result Value WORKSTATION ID [id number] Impression 1. Although decompressed by Ferris catheter, [...] who have questions please contact the health home care attendant that requested your imaging first. SSMENT: Jimenez Marin w/PMHx of COPD, AK s/p stents, recent smoker, chronic CP/SOB on [...] of two midnights or is [facility] the [facility] only procedure list (status C) due to: post-operative care that cannotbe delivered as an outpatient; examples: pain only controlled with IV pain medication; frequent or complex wound care/dressing changes; NPO requiring IV fluid support. UMU FRYE MD 07/30/2024 * Juli Howe RN - 07/30/2024 12:39 PM EST ANGIO NURSING DATABASE Name: Jimenez Marin Date of : 1955 AGE: 69 y.o. Address: [address] [place] [id number] (home) Mobile: Telephone Information: Referring Provider: Umu [...] that the dr was femaleand located in [facility]. Contacted pt's PCP office to see if they had an Advance Directive on file. They were unable to locate one. Follow Up Needed: Pt declines connection to additional resources. TELEMARKETER will attempt to locate Palliative doctor for Advance Directive. HARMONY Cotter, INDUSTRIAL GAS SERVICER HELPER [employer] Ticketer Community Cultural Development Officer Office of Care Management [phone] * Zara Sanford RD - 07/30/2024 10:52 AM EST Nutrition Initial Note Jimenez Marin is a 69 y.o. male admitted with bladder tumor. Relevant medical history includes COPD, AK s/p stents, gross hematuria, bladder mass. Interval History No data found. Reason for Assessment: Low BMI, Malnutrition Evaluation Nutrition Recommendations: Regular Diet Encourage PO intake, document %PO in flowsheets ONS BID Milk with each meal per pt request Continuum of Care Plan Referral to Outpatient Services: follow up with outpatient RD - if following with clinic in [facility] recommend referral to RD there. Recommend Multivitamin- order pended Patient meets criteria for severe protein calorie malnutrition as outlined below I was able to discuss plan with provider Urology #[id number] . Sujatha Marin MD. Current Nutrition Regimen: [...] encounter: 45.9 kg (101 lb 1.6 oz). [place] Body Weight (IBW) (kg): 80.91 Usual Body [...] is open to receiving while admitted. This remote mortgage underwriter emphasized the importance of protein for healing. Provided pt with high protein snack list to identify additional snacks. Pt inquired about NPO status; has a regular diet and ordered lunch for patient today. NFPE conducted, severe muscle and fat loss noted and visually apparent. Recommend outpatient follow up with RD; if patient is following with clinic in [facility], recommend referral to RD at clinic there. Nutrition Focused Physical Exam: Performed (07/31/24 CAB) . Subcutaneous Fat Loss Orbital region: Severe (buccal: severe) Upper arm region (triceps/biceps): Severe Thoracic and Lumbar regions (ribs, lower back, and maxillary line): Not assessed Lean Muscle Loss Nondenominational region (temporalis muscle): Severe Clavicle bone region [...] Add LDA for any identified wounds Add Shubert image for any suspected PI or non [...] mouth daily. fluticasone propionate (FLONASE) 50 mcg/actuation Mayer, Suspension 1 spray daily. lisinopril (PRINIVIL;ZESTRIL) 10 mg Tablet Take 10 mg by mouth daily. omeprazole (PRILOSEC) 20 mg Capsule, Delayed Release(E.C.) Take 20 mg by mouth daily. traZODone (DESYREL) 100 mg Tablet Take 100 mg by mouth nightly. multivitamin Cfxz-Rs-XA-Min (THERAPEUTIC-M) 27-0.4 mg Tablet Take 1 tablet [...] Prior to Encounter Medication Sig Dispense Refill Sabakati Aerosphere 160-9-4.8 mcg/actuation inhaler (HFA) Inhale 2 [...] mouth daily. fluticasone propionate (FLONASE) 50 mcg/actuation Mayer, Suspension 1 spray daily. lisinopril (PRINIVIL;ZESTRIL) 10 mg Tablet Take 10 mg by mouth daily. omeprazole (PRILOSEC) 20 mg Capsule, Delayed Release(E.C.) Take 20 mg by mouth daily. traZODone (DESYREL) 100 mg Tablet Take 100 mg by mouth nightly. multivitamin Oqia-Vc-MG-Min (THERAPEUTIC-M) 27-0.4 mg Tablet Take 1 tablet [...] y.o. male with a history of COPD, AK s/p stents, recently quit smoking, gross hematuria, [...] also sees a palliative care physician in [facility],but doesn't know her name and doesn't know [...] MD, MS 07/29/2024 1:10 PM Urologic Oncology [facility], [place], [place] recovery unit operator (Urology) and of [facility], [facility] documented in this encounter Miscellaneous Notes [...] completed. Pt discharged, via W/C, accompanied by [facility]. All belongings with pt, discharged to [...] of Discharge: 08/01/2024 Bethany Frank RN-BSN-CM Pager: [phone] * Care Management - Bethany Frank RN - 08/01/2024 2:32 PM EST The Patient has been provided a list of Home Health Agencies/DME vendors which serve their preferred geographic area. A letter describing our affiliations was reviewed with them and they were educated about their right to choose where referrals are placed. Patient requests referral to : [facility]. [address] [place] [id number] Expected date of discharge: 08/02/2024. Referral routed to the Masseur/M[employer]use for matching with agency/vendor and to provide any required information. * Care Management - Katia Knapp - 08/01/2024 11:40 AM EST Transportation for discharge has been scheduled/confirmed through [facility]. [facility] will have a dedicated driver here at 14:15 at entrance #2 (inpatient visitor entrance) to provide patient with a ride home. * Initial Assessments - Shavonne Eaton, OT - 08/01/2024 9:40 AM EST Occupational Therapy Evaluation Patient profile: Jimenez Marin is a 69 y.o. male admitted on 07/29/2024. Pt with PMH of COPD, AK s/p stents, recent smoker, chronic CP/SOB on [...] Placement Percutaneous Left 07/30/[address] [facility] INTERVENTIONL RAD PRO CYSTOURETHROSCOPY, FULGUR >5CM LESN N/A 07/29/2024 CYSTO, RESECTION BLADDER TUMOR, GREATER THAN 5.0CM (WRVU 7.5) performed by Umu Frye MD at [facility] MAIN OR PRO UNLISTED PX RECTUM N/A 07/29/2024 EUA RECTUM (WRVU 7.56) performed by Umu Frye MD at [facility] MA[facility] OR Activity Orders: Activity Orders [...] and VSS. RN and team notified via [id number] conversation regarding Pt status, d/c recommendations, and [...] evaluation only Total Minutes, Occupational Therapy: 27 ([id number] (Low Eval)) 2017 OT Evaluation Code Rationale: [...] PANCHOR/L She/her Occupational Therapy Rehabilitation Department Pager: [phone] * Initial Assessments - Ines Combs, PT - 08/01/2024 9:40 AM EST Physical Therapy Evaluation Patient profile: Jimenez Marin is a 69 y.o. male admitted on 07/29/2024. Pt with PMHx of COPD, AK s/p stents, recent smoker, chronic CP/SOB on [...] Placement Percutaneous Left 07/30/[address] [facility] INTERVENTIONL RAD PRO CYSTOURETHROSCOPY, FULGUR >5CM LESN N/A 07/29/2024 CYSTO, RESECTION BLADDER TUMOR, GREATER THAN 5.0CM (WRVU 7.5) performed by Umu Frye MD at [facility] MAIN OR PRO UNLISTED PX RECTUM N/A 07/29/2024 EUA RECTUM (WRVU 7.56) performed by Umu Frye MD at [facility] MA[facility] OR Active Non-Hospital Problems Diagnosis [...] 27 minutes; Arash Combs PT DPT Pager: [phone] Physical Therapy Inpatient Rehabilitation Department * Consult Note - Sheldon, Kristel M, DO - 07/31/2024 12:56 PM EST Palliative Medicine Consultation NAME: Jimenez Marin DATE: 07/31/2024 ATTENDING: Uum Frye MD PCP: Cintia Jones APRN Hospital day: Hospital Day 2 days The Palliative Care Service is asked by Dr. Umu Frye MD to see this patient for: Symptom ManagementDecision Making: including discussion and assessment of goals of care, advance planning , etc.Coping with Serious Illness: also consider consultation to BIT and food preparation kitchen aide if appropriate History of Present Illness: Jimenez Marin is a(n) 69 y.o. male from [place], [place] with a past medical history (per chart review) of COPD (on home O2 as needed, CAD s/p AK (around 2009, s/p 2 stents, on ASA), Bipolar (well- controlled on medications), history of tobacco use (quit in January 2024, previously smoked 1ppd since he was 13yo), previous marijuana use, and HTN who presented to [facility] for scheduled TURBT procedure in the setting of recently diagnosed bladder cancer. Jimenez initially presented to the ED in [facility] on 04/17/2024 for dysuria, and abdominal [...] for TURBT +/- PCN v stent at [facility]. On 07/29, Jimenez underwent [...] pain. Of note, Jimenez was referred to [facility] ([phone]) by his shop clerk, Dr. 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 He last saw Dr. Bethany Byrd on 03/04/2024, who helped him to complete a COLST and AD. He hasnot been seen in this office since his bladder cancer diagnosis. 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 Does not name any family members who he is close with. Lives with a roommate, Erich Hawley, [place], [place]. No pets, but [...] confirmed that he is being seen at [facility] palliative care office for COPD, but he [...] year based on our discussion with Dr. rFye (Urology). Jimenez seemed to take this all [...] Marin is a(n) 69 y.o. male from [facility] with newly diagnosed Muscle invasive bladdercancer, admitted [...] looks forward to [place]. He has palliative care follow up scheduled for 09/02. This inpatient palliative care team will provide warm hand off to the [facility] office upon discharge to ensure that prescriptions [...] palliative care provider, Dr. Bethany Byrd, at [facility] ([phone]) -Based on documentation of their most recent discussion, Code Status is DNAR/accepting of time limited trial of intubation if necessary. Jimenez aware his Code Status was changed for this procedure. However, POLST not changed as consistent with wishes for care outside of this acute hospital stay. -POLST and AD completed at outpatient Palliative Care office visit on 03/04/2024 (Available in [facility] media section). #Serious illness-associated symptom recommendations #Cancer [...] -Screened for spiritual care needs? No -Primary hospice care consultant: None; has some support from his roommate, Erich -Interdisciplinary Team members engaged: [] Palliative TELEMARKETER; [] BIT involved; [x] [employer] [employer]; [] [...] up scheduled with outpatient palliative care at [facility] on 09/02 I have reviewed the patient's case along with my assessment and recommendations collaboratively with my supervising Palliative faculty Dr. Fredrick Ritchie. Kristel Chung, DO Palliative care team pager #[phone] Associated attestation - Fredrick Ritchie MD - [...] care. As noted, we obtained records from [facility] where Jimenez has [...] has had extensive conversations with Dr. Byrd(Palliative [facility]) about trying to identify a surrogate and [...] both PCP and Palliative Care in [facility] would be ideal. Fredrick Ritchie MD Palliative [...] surrogate would be surrogate decision maker per [place] surrogate decision making law. (Only good for 180 days): Erich Hawley Any patient receiving care in [place] must abide by [place] law. The hierarchy for surrogate decision making [...] (i) The agent with financial power of title attorney or a conservator appointed in accordance with RSA 464-A. (j) The guardian of the patient???s estate. Advance Care Planning: Attempt Cardiopulmonary Resuscitation - Inpatient <no information> -Advanced Directive: No, declines (Pt states he has done an AD with Palliative Care, though cannot recall exactly with whom and from what agency. It was a woman, in [facility]. Contacted pt's PCP to get more info. [...] were you homeless or living in a [place] health care facility (including now)?: No In the past 12 [...] doesn't use/need it) Home Address confirmed as: [facility] [facility] [address] Social & Family Supports: All names listed [...] assess Primary Care Provider confirmed: Cintia Jones, CENTRAL STERILE TECHNICIAN [phone] Patient/Caregiver Goals of Treatment: Recover and return [...] y.o. male with a history of COPD, AK s/p stents, recently quitsmoking, gross hematuria, and bladder mass seen on a CT scan with office cystoscopy on 06/02/24 notable for a large sessile appearing left and right sided bladder wall/neck mass(es) noted. There was amass on the trigone and UO not visualized. He presents for TURBT/RPG, possible stent vs PCN. Pt lives with a roommate in a trailer [place]. Pt states that he lives on top [...] coordination of care as indicated. HARMONY Cotter, INDUSTRIAL GAS SERVICER HELPER [employer] Ticketer Community Cultural Development Officer Office of Care Management [phone] * Op Note - Jocy Etienne MD - 07/29/2024 2:10 PM EST [facility] Operative Note Patient Name: Jimenez Marin : [id number] MR#: [id number] Case Date: 06/24/2024 - 07/29/2024 Surgeon: Surgeons [...] y.o. male with a history of COPD, AK s/p stents, recently quit smoking, gross hematuria, [...] also sees a palliative care physician in [facility],but doesn't know her name and doesn't know [...] 1:30 PM EST Clinical [place] [address] 08/07/2024 3:30 PM EST Scheduled [place] [address] Pending Results Name Type Priority Associated Diagnoses [...] 2:50 AM EST Rectum Surgery Procedure Unlisted ([id number]) 07/29/2024 1:50 PM EST bladder tumor Cystourethroscopy, Fulgur >5Cm Lesn ([id number]) 07/29/2024 1:50 PM EST bladder tumor EKG 12-LEAD Routine 07/29/2024 1:16 PM EST Chest pain, unspecified type documented in this encounter Results * (ABNORMAL) Basic Metabolic Panel (08/02/2024 4:52 AM EST) Glucose 146 65 - 199 mg/dL 08/02/2024 5:35 AM [facility] Comment:Glucose Concentratio n >=200 mg/dL plus symptoms is consistent with Diabetes Mellitus. Blood Urea Nitrogen 18 10 - 20 mg/dL 08/02/2024 5:35 AM [facility] Creatinine 0.92 0.80 - 1.50 mg/dL 08/02/2024 5:35 AM [facility] Sodium 133(L) 135 - 145 mMol/L 08/02/2024 5:35 AM [facility] Potassium 4.1 3.5 - 5.0 mMol/L 08/02/2024 5:35 AM [facility] Chloride 96(L) 98 - 107 mMol/L 08/02/2024 5:35 AM [facility] Carbon Dioxide 28 22 - 31 mMol/L 08/02/2024 5:35 AM [facility] Anion Gap 9 5 - 15 mMol/L 08/02/2024 5:35 AM [facility] Calcium 9.9 8.5 - 10.5 mg/dL 08/02/2024 5:35 AM [facility] Est Glomerular Filtration Rate - Male 91 mL/min/1. 73 m?? 08/02/2024 5:35 AM [facility] Comment: This patient's estimated GFR [...] EST Umu Frye MD CHEMISTRY ORDERABL ES [facility] [place] [address] * (ABNORMAL) CBC (with Diff) (08/02/2024 4:52 AM EST) White Blood Cell 10.77(H) 4.00 - 9.50 x10(3)/mc L 08/02/2024 5:11 AM [facility] Red Blood Cell 3.69(L) 4.58 - 5.54 x10(6)/mc L 08/02/2024 5:11 AM [facility] Hemoglobin 10.8(L) 13.7 - 16.5 g/dL 08/02/2024 5:11 AM [facility] Hematocrit 33.7(L) 40.5 - 48.5 % 08/02/2024 5:11 AM [facility] Mean Cell Volume 91.3 82.9 - 93.1 fL 08/02/2024 5:11 AM [facility] Mean Cell Hemoglobin 29.3 27.5 - 32.1 pg 08/02/2024 5:11 AM [facility] Mean Cell Hemoglobin Concentration 32.0 32.0 - 35.7 g/dL 08/02/2024 5:11 AM [facility] Platelet 297 145 - 357 x10(3)/mc L 08/02/2024 5:11 AM [facility] Mean Platelet Volume 9.4 7.6 - 12.9 fL 08/02/2024 5:11 AM [facility] RDW Standard Deviation 53.3(H) 36.0 - 45.0 fL 08/02/2024 5:11 AM [facility] RDW coefficient of variation 15.9(H) 11.4 - 13.8 % 08/02/2024 5:11 AM [facility] NRBC% auto 0.0 % 08/02/2024 5:11 AM [facility] NRBC Absolute <0.01 <0.01 x10(3)/mc L 08/02/2024 5:11 AM [facility] Neutrophil % 75.2 % 08/02/2024 5:11 AM [facility] Neutrophil Absolute (ANC) - Automated 8.09(H) 1.70 - 6.10 x10(3)/mc L 08/02/2024 5:11 AM [facility] Lymph % 9.0 % 08/02/2024 5:11 AM [facility] Lymph Absolute 0.97 0.90 - 3.20 x10(3)/mc L 08/02/2024 5:11 AM [facility] Monocyte % 9.0 % 08/02/2024 5:11 AM [facility] Monocyte Absolute 0.97(H) 0.30 - 0.90 x10(3)/mc L 08/02/2024 5:11 AM [facility] Eos % 5.5 % 08/02/2024 5:11 AM [facility] Eos Absolute 0.59(H) 0.00 - 0.40 x10(3)/mc L 08/02/2024 5:11 AM [facility] Basophil % 0.6 % 08/02/2024 5:11 AM [facility] Baso Absolute 0.07 0.00 - 0.10 x10(3)/mc L 08/02/2024 5:11 AM [facility] Immature Gran % 0.7 % 5:11 AM [facility] Immature Gran Absolute 0.08(H) 0.00 - 0.04 x10(3)/mc L 08/02/2024 5:11 AM [facility] Blood VENOUS BLOOD SPECIMEN / Unknown Venipuncture / Unknown 08/02/2024 4:52 AM EST 08/02/2024 5:03 AM EST Umu Frye MD HEMATOLOGY ORDERAB LES [facility] [place] [address] * (ABNORMAL) Basic Metabolic Panel (08/01/2024 5:36 AM EST) Glucose 133 65 - 199 mg/dL 08/01/2024 6:37 AM [facility] Comment:Glucose Concentratio n >=200 mg/dL plus symptoms is consistent with Diabetes Mellitus. Blood Urea Nitrogen 21(H) 10 - 20 mg/dL 08/01/2024 6:37 AM [facility] Creatinine 1.04 0.80 - 1.50 mg/dL 08/01/2024 6:37 AM [facility] Sodium 133(L) 135 - 145 mMol/L 08/01/2024 6:37 AM [facility] Potassium 4.2 3.5 - 5.0 mMol/L 08/01/2024 6:37 AM [facility] Chloride 95(L) 98 - 107 mMol/L 08/01/2024 6:37 AM [facility] Carbon Dioxide 29 22 - 31 mMol/L 08/01/2024 6:37 AM [facility] Anion Gap 9 5 - 15 mMol/L 08/01/2024 6:37 AM [facility] Calcium 9.4 8.5 - 10.5 mg/dL 08/01/2024 6:37 AM [facility] Est Glomerular Filtration Rate - Male 78 mL/min/1. 73 m?? 08/01/2024 6:37 AM EST [facility] Comment: This patient's estimated [...] EST Umu Frye MD CHEMISTRY ORDERABL ES [facility] [place] [address] * (ABNORMAL) CBC (with Diff) (08/01/2024 5:36 AM EST) White Blood Cell 12.60(H) 4.00 - 9.50 x10(3)/mc L 08/01/2024 6:16 AM EST [facility] Red Blood Cell 3.44(L) 4.58 - 5.54 x10(6)/mc L 08/01/2024 6:16 AM EST [facility] Hemoglobin 10.2(L) 13.7 - 16.5 g/dL 08/01/2024 6:16 AM EST [facility] Hematocrit 31.5(L) 40.5 - 48.5 % 08/01/2024 6:16 AM EST [facility] Mean Cell Volume 91.6 82.9 - 93.1 fL 08/01/2024 6:16 AM EST [facility] Mean Cell Hemoglobin 29.7 27.5 - 32.1 pg 08/01/2024 6:16 AM [facility] Mean Cell Hemoglobin Concentration 32.4 32.0 - 35.7 g/dL 08/01/2024 6:16 AM [facility] Platelet 316 145 - 357 x10(3)/mc L 08/01/2024 6:16 AM [facility] Mean Platelet Volume 9.2 7.6 - 12.9 fL 08/01/2024 6:16 AM [facility] RDW Standard Deviation 52.8(H) 36.0 - 45.0 fL 08/01/2024 6:16 AM [facility] RDW coefficient of variation 15.7(H) 11.4 - 13.8 % 08/01/2024 6:16 AM [facility] NRBC% auto 0.0 % 08/01/2024 6:16 AM [facility] NRBC Absolute <0.01 <0.01 x10(3)/mc L 08/01/2024 6:16 AM [facility] Neutrophil % 76.1 % 08/01/2024 6:16 AM [facility] Neutrophil Absolute (ANC) - Automated 9.59(H) 1.70 - 6.10 x10(3)/mc L 08/01/2024 6:16 AM [facility] Lymph % 9.4 % 08/01/2024 6:16 AM [facility] Lymph Absolute 1.19 0.90 - 3.20 x10(3)/mc L 08/01/2024 6:16 AM [facility] Monocyte % 9.5 % 08/01/2024 6:16 AM [facility] Monocyte Absolute 1.20(H) 0.30 - 0.90 x10(3)/mc L 08/01/2024 6:16 AM [facility] Eos % 4.0 % 08/01/2024 6:16 AM [facility] Eos Absolute 0.50(H) 0.00 - 0.40 x10(3)/mc L 08/01/2024 6:16 AM EST [facility] Basophil % 0.5 % 08/01/2024 6:16 AM EST [facility] Baso Absolute 0.06 0.00 - 0.10 x10(3)/mc L 08/01/2024 6:16 AM EST [facility] Immature Gran % 0.5 % 6:16 AM [facility] Immature Gran Absolute 0.06(H) 0.00 - 0.04 x10(3)/mc L 08/01/2024 6:16 AM [facility] Blood VENOUS BLOOD SPECIMEN / Unknown Venipuncture / Unknown 08/01/2024 5:36 AM EST 08/01/2024 6:00 AM EST Umu Frye MD HEMATOLOGY ORDERAB LES Performing Organization Address City/State/[facility] Co de Phone Number [facility] [place] [address] * (ABNORMAL) Basic Metabolic Panel (07/31/2024 5:06 AM EST) Glucose 154 65 - 199 mg/dL 07/31/2024 6:00 AM [facility] Comment:Glucose Concentratio n >=200 mg/dL plus symptoms is consistent with Diabetes Mellitus. Blood Urea Nitrogen 17 10 - 20 mg/dL 07/31/2024 6:00 AM [facility] Creatinine 1.02 0.80 - 1.50 mg/dL 07/31/2024 6:00 AM [facility] Sodium 135 135 - 145 mMol/L 07/31/2024 6:00 AM [facility] Potassium 4.6 3.5 - 5.0 mMol/L 07/31/2024 6:00 AM [facility] Chloride 97(L) 98 - 107 mMol/L 07/31/2024 6:00 AM [facility] Carbon Dioxide 28 22 - 31 mMol/L 07/31/2024 6:00 AM EST [facility] Anion Gap 10 5 - 15 mMol/L 07/31/2024 6:00 AM EST [facility] Calcium 9.5 8.5 - 10.5 mg/dL 07/31/2024 6:00 AM EST [facility] Est Glomerular Filtration Rate - Male 80 mL/min/1. 73 m?? 07/31/2024 6:00 AM EST [facility] Comment: This patient's estimated [...] EST Umu Frye MD CHEMISTRY ORDERABL ES [facility] [place] [address] * (ABNORMAL) CBC (with Diff) (07/31/2024 5:06 AM EST) White Blood Cell 16.51(H) 4.00 - 9.50 x10(3)/mc L 07/31/2024 5:31 AM EST [facility] Red Blood Cell 3.78(L) 4.58 - 5.54 x10(6)/mc L 07/31/2024 5:31 AM EST [facility] Hemoglobin 11.0(L) 13.7 - 16.5 g/dL 07/31/2024 5:31 AM EST [facility] Hematocrit 34.6(L) 40.5 - 48.5 % 07/31/2024 5:31 AM [facility] Mean Cell Volume 91.5 82.9 - 93.1 fL 07/31/2024 5:31 AM [facility] Mean Cell Hemoglobin 29.1 27.5 - 32.1 pg 07/31/2024 5:31 AM [facility] Mean Cell Hemoglobin Concentration 31.8(L) 32.0 - 35.7 g/dL 07/31/2024 5:31 AM [facility] Platelet 322 145 - 357 x10(3)/mc L 07/31/2024 5:31 AM [facility] Mean Platelet Volume 9.0 7.6 - 12.9 fL 07/31/2024 5:31 AM [facility] RDW Standard Deviation 51.8(H) 36.0 - 45.0 fL 07/31/2024 5:31 AM [facility] RDW coefficient of variation 15.6(H) 11.4 - 13.8 % 07/31/2024 5:31 AM [facility] NRBC% auto 0.0 % 07/31/2024 5:31 AM [facility] NRBC Absolute <0.01 <0.01 x10(3)/mc L 07/31/2024 5:31 AM [facility] Neutrophil % 83.4 % 07/31/2024 5:31 AM [facility] Neutrophil Absolute (ANC) - Automated 13.77(H) 1.70 - 6.10 x10(3)/mc L 07/31/2024 5:31 AM [facility] Lymph % 6.1 % 07/31/2024 5:31 AM [facility] Lymph Absolute 1.00 0.90 - 3.20 x10(3)/mc L 07/31/2024 5:31 AM [facility] Monocyte % 8.2 % 07/31/2024 5:31 AM [facility] Monocyte Absolute 1.36(H) 0.30 - 0.90 x10(3)/mc L 07/31/2024 5:31 AM EST [facility] Eos % 1.4 % 07/31/2024 5:31 AM EST [facility] Eos Absolute 0.23 0.00 - 0.40 x10(3)/mc L 07/31/2024 5:31 AM EST [facility] Basophil % 0.4 % 07/31/2024 5:31 AM EST [facility] Baso Absolute 0.07 0.00 - 0.10 x10(3)/mc L 07/31/2024 5:31 AM EST [facility] Immature Gran % 0.5 % 5:31 AM [facility] Immature Gran Absolute 0.08(H) 0.00 - 0.04 x10(3)/mc L 07/31/2024 5:31 AM EST [facility] Blood VENOUS BLOOD SPECIMEN / Unknown Venipuncture / Unknown 07/31/2024 5:06 AM EST 07/31/2024 5:26 AM EST Umu Frye MD HEMATOLOGY ORDERAB LES Performing Organization Address [facility]/State/[facility] Co de Phone Number [facility] [place] [phone] * IR Nephrostomy Tube Placement Percutaneous Left [...] which were correct. The patient was positioned [id number] on the procedure table. ??The Left flank [...] Urine Culture No growth 08/01/2024 7:48 AM [facility] Urine URINE SPECIMEN FROM NEPHROSTOMY TUBE / Unknown Non Blood Collection / Unknown 07/30/2024 12:45 PM EST 07/30/2024 2:05 PM EST Jamin Ugarte MD MICROBIOLOGY - GENER AL ORDERABLES [facility] [place] [address] * (ABNORMAL) Basic Metabolic Panel (07/30/2024 5:03 AM EST) Glucose 119 65 - 199 mg/dL 07/30/2024 6:17 AM [facility] Comment:Glucose Concentratio n >=200 mg/dL plus symptoms is consistent with Diabetes Mellitus. Blood Urea Nitrogen 18 10 - 20 mg/dL 07/30/2024 6:17 AM [facility] Creatinine 0.82 0.80 - 1.50 mg/dL 07/30/2024 6:17 AM [facility] Sodium 134(L) 135 - 145 mMol/L 07/30/2024 6:17 AM [facility] Potassium 4.2 3.5 - 5.0 mMol/L 07/30/2024 6:17 AM [facility] Chloride 95(L) 98 - 107 mMol/L 07/30/2024 6:17 AM [facility] Carbon Dioxide 29 22 - 31 mMol/L 07/30/2024 6:17 AM [facility] Anion Gap 10 5 - 15 mMol/L 07/30/2024 6:17 AM [facility] Calcium 9.4 8.5 - 10.5 mg/dL 07/30/2024 6:17 AM [facility] Est Glomerular Filtration Rate - Male 96 mL/min/1. 73 m?? 07/30/2024 6:17 AM [facility] Comment: This patient's estimated GFR [...] EST Umu Frye MD CHEMISTRY ORDERABL ES [facility] [place] [address] * (ABNORMAL) CBC (with Diff) (07/30/2024 5:03 AM EST) White Blood Cell 11.30(H) 4.00 - 9.50 x10(3)/mc L 07/30/2024 6:02 AM [facility] Red Blood Cell 3.85(L) 4.58 - 5.54 x10(6)/mc L 07/30/2024 6:02 AM [facility] Hemoglobin 11.5(L) 13.7 - 16.5 g/dL 07/30/2024 6:02 AM [facility] Hematocrit 34.2(L) 40.5 - 48.5 % 07/30/2024 6:02 AM [facility] Mean Cell Volume 88.8 82.9 - 93.1 fL 07/30/2024 6:02 AM [facility] Mean Cell Hemoglobin 29.9 27.5 - 32.1 pg 07/30/2024 6:02 AM [facility] Mean Cell Hemoglobin Concentration 33.6 32.0 - 35.7 g/dL 07/30/2024 6:02 AM [facility] Platelet 342 145 - 357 x10(3)/mc L 07/30/2024 6:02 AM [facility] Mean Platelet Volume 9.0 7.6 - 12.9 fL 07/30/2024 6:02 AM [facility] RDW Standard Deviation 49.6(H) 36.0 - 45.0 fL 07/30/2024 6:02 AM [facility] RDW coefficient of variation 15.3(H) 11.4 - 13.8 % 07/30/2024 6:02 AM [facility] NRBC% auto 0.0 % 07/30/2024 6:02 AM [facility] NRBC Absolute <0.01 <0.01 x10(3)/mc L 07/30/2024 6:02 AM [facility] Neutrophil % 78.6 % 07/30/2024 6:02 AM [facility] Neutrophil Absolute (ANC) - Automated 8.87(H) 1.70 - 6.10 x10(3)/mc L 07/30/2024 6:02 AM [facility] Lymph % 8.9 % 07/30/2024 6:02 AM [facility] Lymph Absolute 1.01 0.90 - 3.20 x10(3)/mc L 07/30/2024 6:02 AM [facility] Monocyte % 8.9 % 07/30/2024 6:02 AM [facility] Monocyte Absolute 1.01(H) 0.30 - 0.90 x10(3)/mc L 07/30/2024 6:02 AM [facility] Eos % 2.7 % 07/30/2024 6:02 AM [facility] Eos Absolute 0.30 0.00 - 0.40 x10(3)/mc L 07/30/2024 6:02 AM [facility] Basophil % 0.5 % 07/30/2024 6:02 AM [facility] Baso Absolute 0.06 0.00 - 0.10 x10(3)/mc L 07/30/2024 6:02 AM EST [facility] Immature Gran % 0.4 % 6:02 AM EST [facility] Immature Gran Absolute 0.05(H) 0.00 - 0.04 x10(3)/mc L 07/30/2024 6:02 AM EST [facility] Blood VENOUS BLOOD SPECIMEN / Unknown Venipuncture / Unknown 07/30/2024 5:03 AM EST 07/30/2024 5:50 AM EST Umu Frye MD HEMATOLOGY ORDERAB LES [facility] [place] [address] * CT Chest Abdomen Pelvis w Contrast (Generic) (07/30/2024 2:50 AM EST) WORKSTATION ID [id number] DH RAD Anatomical Region Laterality Modality Abdomen, [...] who have questions please contact the health home care attendant that requested your imaging first. ? Narrative [...] patients who have questions please contactthe health home care attendant that requested your imaging first. Umu Frye MD IMG CT ORDERABLES * EKG 12 Lead (07/29/2024 1:16 PM EST) Ventricular rate 79 BPM MUSE SYSTEM Atrial Rate 79 BPM MUSE SYSTEM P-R Interval 120 ms MUSE SYSTEM QRS Duration 92 ms MUSE SYSTEM Q-T Interval 400 ms MUSE SYSTEM QTC Calculated (Bezet) 458 ms MUSE SYSTEM Calculated P [place] 7 degrees MUSE SYSTEM Calculated R [place] 70 degrees MUSE SYSTEM Calculated T [place] 88 degrees MUSE SYSTEM INTERPRETATION Normal sinus [...] NOT exceed 2 mg total dose. At [facility] or [facility], call provider if naloxone administered. At [facility], If ineffective, call HERT team [phone]. At [facility], page rapid response team., Routine oxyCODONE (Roxicodone) [...] NOT exceed 2 mg total dose. At [facility] or [facility], call provider if naloxone administered. At [facility], If ineffective, call HERT team [phone]. At [facility], page rapid response team., Routine oxyCODONE (Roxicodone) [...] Routine documented in this encounter Care Teams Cuff Maker Relationship Specialty Start Date End Date Cintia Jones, CENTRAL STERILE TECHNICIAN [place]id[place] [address] PCP - General Family Medicine 05/09/24 documented as of this encounter
--- OUTSIDE RECORDS SUMMARY | 2024-08-06 14:44 | XMS_ITS | Encounter Summary ---
Author Organization [facility] [place] [address] Care Team Providers Care Electronic News Gathering Editor Name Role Phone RanjitNess elkins DARIANA Primary Care Provider Reason for Referral * Diagnostic Test (Routine) - Closed Specialty Diagnoses / Procedures Referred By Contac t Referred To Contact Radiology Diagnoses Pleural nodule Procedures NM PET CT Skull Base to Mid-thigh Mabel Gurrola PA [address] [place] [address] [place] [address] Referral ID Status Reason Start Date Expiration Date V isits Requested Visits Authorized [id number] Closed Specialty Service Requested 10/23/2022 04/22/2024 1 1 Reason for Visit * Diagnostic Test (Routine) - Closed Specialty Diagnoses / Procedures Referred By Contac t Referred To Contact Radiology Diagnoses Pleural nodule Procedures NM PET CT Skull Base to Mid-thigh Mabel Gurrola PA [address] [place] [address] [place] [address] Referral ID Status Reason Start Date Expiration Date V isits Requested Visits Authorized [id number] Closed Specialty Service Requested 10/23/2022 04/22/2024 1 1 Encounter Details Date Type Department Care Team (Latest Contact Info) Description 11/13/2022 2:27 PM EST Hospital Encounter [place] [address] Mabel Gurrola PA [address] [place] [address] Pleural nodule Discharge Disposition: Home Social History [...] mouth daily. fluticasone propionate (FLONASE) 50 mcg/actuation [place], Suspension 1 spray daily. lisinopril (PRINIVIL;ZESTRIL) 10 mg Tablet Take 10 mg by mouth daily. aspirin 81 mg Tablet, Delayed Release (E.C.) Take 81 mg by mouth daily. omeprazole (PRILOSEC) 20 mg Capsule, Delayed Release(E.C.) Take 20 mg by mouth daily. traZODone (DESYREL) 100 mg Tablet Take 100 mg by mouth nightly. multivitamin Yohm-Ja-MR-Min (THERAPEUTIC-M) 27-0.4 mg Tablet Take 1 tablet [...] 1:30 PM EST Clinical [place] [address] 08/07/2024 3:30 PM EST Scheduled [place] [address] documented as of this encounter Procedures Procedure [...] who have questions please contact the health rn palliative care that requested your imaging first. ? Electronically signed by: Ashley Kerr MD, [facility] ([phone]), at 11/16/2022 9:49 AM Narrative 11/16/2022 9:49 AM EST EXAMINATION: NM PET CT STANDARD SKULL BASE TO MID-THIGH CLINICAL HISTORY: pleural nodule; concern for lung ca TECHNIQUE: Following IV injection of 40-jvkrps-2-deoxyglucose (FDG) a standard uptake of approximately 60 [...] head, face, and cervical spine 04/29/[address] [facility] abdomen/pelvis 07/05/2018 from [facility] CT chest, abdomen, and pelvis 06/14/2018 from [facility] FINDINGS: HEAD/NECK: Symmetric muscular activity in the [...] Note Ashley Kerr MD - 11/16/2022 EXAMINATION: GA PET CT STANDARD SKULL BASE TO MID-THIGH CLINICAL HISTORY: pleural nodule; concern for lung ca TECHNIQUE: Following IV injection of 57-khatvk-6-deoxyglucose (FDG) astandard uptake of approximately 60 minutes, a noncontrast CT scan followed by aPET scan were acquired from the base of the skull to mid thighs. The noncontrast CTwas used for anatomic localization and photon attenuation correction of thePET scan. No oral contrast was administered. Blood glucose level: 105 (mg/dL) FDG dose: 8.8 mCi [address] head, face, and cervical spine 04/29/2020 from [facility]. CT abdomen/pelvis 07/05/2018 from [facility] CT chest, abdomen, and pelvis 06/14/2018 from [facility] FINDINGS: HEAD/NECK: Symmetric muscular activity in the [...] of background mediastinal blood pool, not seen [id number] CT. This is indeterminate for an inflammatory [...] patients who have questions please contactthe health rn palliative care that requested your imaging first. Electronically signed by: Ashley Kerr MD, [facility]([phone]), at 11/16/2022 9:49 AM Mabel ORTIZ IMG [...] Arm documented in this encounter Care Teams Electronic News Gathering Editor Relationship Specialty Start Date End Date Ness Diaz, WAD PRINTING MACHINE OPERATOR [address] [place] [address] PCP - General Family Medicine 05/07/20 05/08/24 documented as of this encounter
--- OUTSIDE RECORDS SUMMARY | 2024-08-06 14:44 | XMS_ITS | Encounter Summary ---
Author Organization [facility] [place] [address] Care Team Providers Care Car Ferrier Name Role Phone Tammy Farley MD Primary Care Provider [phone] Encounter Details Date Type Department Care Team (Late st Contact Info) Description 04/30/2020 Telephone [place] [phone] Shakira Horta Social History Tobacco Use Types [...] 1:30 PM EST [place] [phone] 08/07/2024 3:30 PM EST Scheduled [place] [phone] documented as of this encounter Visit Diagnoses Not on filedocumented in this encounter Care Teams Car Ferrier Relationship Specialty Start Date End Date Tammy Farley MD [address] [place] [address] PCP - General Family Medicine 07/23/18 05/06/20 documented as of this encounter
--- OUTSIDE RECORDS SUMMARY | 2024-08-06 14:44 | XMS_ITS | Encounter Summary ---
Author Organization [facility] Address [facility] [place] [address] Care Team Providers Care Offshore Wind Turbine Technician Name Role Phone Cintia Jones DARIANA Primary Care Provider Encounter Details Date Type Department Care Team (Late st Contact Info) Description 04/17/2024 Telephone Urology at [facility] [place] [address] Bethany Jeffers MD [facility] [place] [address] Social History Tobacco Use Types Packs/Day Years [...] - 04/17/2024 3:11 PM EDT DIANA from [facility] ER calling for a consult for [...] 1:30 PM EST Clinical [place] [address] 08/07/2024 3:30 PM EST Scheduled [place] [address] documented as of this encounter Visit Diagnoses Not on filedocumented in this encounter Care Teams Offshore Wind Turbine Technician Relationship Specialty Start Date End Date Cintia Jones, DAR[place] [address] PCP - General Family Medicine 05/09/24 documented as of this encounter
--- OUTSIDE RECORDS SUMMARY | 2024-08-06 14:44 | XMS_ITS | Encounter Summary ---
Author Organization [facility] Address [facility] [place] [address] Care Team Providers Care Retirement Manager Name Role Phone Cintia Jones APRN Primary Care Provider [phone] Reason for Visit * Auth/Cert (Routine) Specialty Diagnoses / Procedures Referred By Christin connelly Referred To Contact Diagnoses Bladder tumor to Procedures PRO CYSTOURETHROSCOPY, FULGUR >5CM LESN PRO CYSTOURETHROSCOPY, URETER CATHETER CYSTO, RESECTION BLADDER TUMOR, GREATER THAN 5.0CM (WRVU 7.5) CYSTO, RETROGRADE, URETEROPYELOGRAPHY (WRVU 2.37) Joseph Frye MD [facility] [place] [address] [facility] Referral ID Status Reason Start Date Expiration Date Visits Re quested Visits Authorized [id number] 1 1 Encounter Details Date Type Department Care Team (Late st Contact Info) Description 07/29/2024 1:48 PM EST Anesthesia [place] [address] Robb Velasquez MD [facility] [place] [address] Eulalio Ayoub MD [facility] [place] [address] Anesthesia Record Procedure Summary Procedure Name Responsible [...] 10; drainage bag 07/29/24 1523 by Robb Antony RN PIV 07/29/24; 1246; slte-tpu-owubpt catheter system; 22 gauge; basilic vein (medial [...] heavy drinker, now drinks <3beers per month [facility] Utilities Answer Date Recorded In the past 12 months has [employer], [employer], oil, or water [employer] threatened to shut off services in your [...] any time in the past 12 m [facility], were you homeless or living in a long term (including now)? No 07/30/2024 DH IPV Inpatient [...] Procedure Summary Date: 07/29/24 Room / Location: [facility] MAIN OR Anesthesia Start: 1348 Anesthesia Stop: 1540 Procedures: CYSTO, RESECTION BLADDER TUMOR, GREATER THAN 5.0CM (WRVU 7.5) (Bladder) EUA RECTUM (WRVU 7.56) Diagnosis: (bladder tumor) Surgeons: Joseph Frye MD Responsible Provider: Robb Velasquez MD Anesthesia Type: general ASA Status: 4 All Anesthesia Providers: Anesthesiologist: Robb Velasquez MD Student Nurse Swimming Pool Installer: Lincoln Hoskins Vitals Value Taken Time BP 134/74 07/29/24 1536 Temp Pulse 78 07/29/24 1541 Resp 16 07/29/24 1541 SpO2 96 % 07/29/24 1541 Pain Level Vitals shown include unfiled device data. Patient Location: PACU/[facility] Level of Consciousness: Awake and Alert Pain [...] risks discussed with patient. Plan discussed with TELEVISION NEWS PHOTOGRAPHER and attending. Anesthesia Screening documented in this encounter Plan of Treatment Upcoming Encounters Date Type Department Care Team (Late st Contact Info) Description 08/07/2024 1:30 PM EST Clinical [place] [address] 08/07/2024 3:30 PM EST Scheduled [place] [address] documented as of this encounter Procedures Procedure [...] Velasquez MD ?? ~~~~~~~~~~~~~~~~~~~~~~~~~~~~~~~~~~~~~~~~~~~~~~~~~~~~~~~~~~~~ Robb Velasquez MD HAND MICA PLATE LAYER CH[facility] documented in this encounter Visit Diagnoses [...] 100 mL Mini-Bag Plus 2 g, Intravenous, DAY HAUL YOUTH SUPERVISOR TO O.R., 1 dose, On Sun07/29/24 at [...] mL/hr documented in this encounter Care Teams Retirement Manager Relationship Specialty Start Date End Date Cintia Jones, APPLIANCE PAINTER AND [place]ISH[place] [address] PCP - General Family Medicine 05/09/24 documented as of this encounter
--- OUTSIDE RECORDS SUMMARY | 2024-08-06 14:44 | XMS_ITS | Encounter Summary ---
Author Organization [facility] Address [facility] [place] [address] Care Team Providers Care Cam Maker Name Role Phone Ness Diaz APRN Primary Care Provider Encounter Details Date Type Department Care Team (Late st Contact Info) Description 04/24/2024 [place] [phone] None None Social History Tobacco Use Types [...] 1:30 PM EST [place] [phone] 08/07/2024 3:30 PM EST [place]uled [place] [address] documented as of this encounter Visit Diagnoses Not on filedocumented in this encounter Care Teams Cam Maker Relationship Specialty Start Date End Date Ness Diaz, MOBILE MARKETING MANAGER [address] [place] [address] PCP - General Family Medicine 05/07/20 05/08/24 documented as of this encounter
--- OUTSIDE RECORDS SUMMARY | 2024-08-06 14:44 | XMS_ITS | Encounter Summary ---
Author Organization [facility] Address [facility] [place] [address] Care Team Providers Care Quality Assurance Consultant Name Role Phone Cintia Jones DARIANA Primary Care Provider [phone] Reason for Referral * Diagnostic Test (Routine) - Closed Specialty Diagnoses / Procedures Referred By Contac t Referred To Contact Urology Diagnoses Bladder mass Procedures Cystourethroscopy Louie Salazar MD [facility] [place] [address] [place] [address] Referral ID Status Reason Start Date Expiration Date V isits Requested Visits Authorized [id number] Closed Test Only 06/02/2024 06/02/2025 1 1 Reason for Visit * Diagnostic Test (Routine) - Closed Specialty Diagnoses / Procedures Referred By Contac t Referred To Contact Urology Diagnoses Bladder mass Procedures Cystourethroscopy Louie Salazar MD [facility] [place] [address] [place] [address] Referral ID Status Reason Start Date Expiration Date V isits Requested Visits Authorized [id number] Closed Test Only 06/02/2024 06/02/2025 1 1 Encounter Details Date Type Department Care Team (Latest Contact Info) Description 06/02/2024 3:20 PM EDT Procedure [place] [address] Louie Salazar MD [facility] [place] [address] Bladder mass; Acute cystitis with hematuria Social [...] and cola. You do not need to wytzlq40 ounces of water today. Urination: You will likely have a small amount of blood in your urine for the next several days. This is normal; however, if you are passing large amounts of blood clots or are unable to void please call our office at [phone] before 5PM or [phone] after hours. Please call if: * you have copious blood in your urine * fevers greater than 101.3 F * you are unable to void The number for questions is [phone] before 5 PM weekdays and [phone] after 5 PM and weekends. Follow-up: Per [...] 1:30 PM EST Clinical [place] [address] 08/07/2024 3:30 PM EST Scheduled [place] [address] documented as of this encounter Procedures Procedure [...] cfu/ml Insignificant growth 06/03/2024 12:11 PM EDT [facility] Urine URINE SPECIMEN OBTAINED BY CLEAN CATCH PROCEDURE / Unknown Non Blood Collection / Unknown 06/02/2024 3:07 PM EDT 06/02/2024 5:04 PM EDT Louie Salazar MD MICROBIOLOGY - GEN ERAL ORDERABLES Performing Organization Address City/State/[facility] [[email or web address]] Co de Phone Number [facility] [place] [address] documented in this encounter Visit Diagnoses Diagnosis Bladder mass Other specified disorders of bladder Acute cystitis with hematuria Acute cystitis documented in this encounter Care Teams Quality Assurance Consultant Relationship Specialty Start Date End Date Cintia Jones, [place] [address] [place] [address] PCP - General Family Medicine 05/09/24 documented as of this encounter
--- OUTSIDE RECORDS SUMMARY | 2024-08-06 14:44 | XMS_ITS | Encounter Summary ---
Author Organization [facility] Address [facility] [place] [address] Care Team Providers Care Property Technician Name Role Phone Ness Diaz DARIANA Primary Care Provider [phone] Encounter Details Date Type Department Care Team (Latest Contact Info) Description 07/31/2022 10:45 PM EST - 07/31/2022 11:59 PM EST Hospital [place] [address] Discharge Disposition: Home Social History Tobacco Use [...] mouth daily. fluticasone propionate (FLONASE) 50 mcg/actuation [place], Suspension 1 spray daily. lisinopril (PRINIVIL;ZESTRIL) 10 mg Tablet Take 10 mg by mouth daily. aspirin 81 mg Tablet, Delayed Release (E.C.) Take 81 mg by mouth daily. omeprazole (PRILOSEC) 20 mg Capsule, Delayed Release(E.C.) Take 20 mg by mouth daily. traZODone (DESYREL) 100 mg Tablet Take 100 mg by mouth nightly. multivitamin Lekk-Px-JH-Min (THERAPEUTIC-M) 27-0.4 mg Tablet Take 1 tablet [...] 1:30 PM EST Clinical [place] [address] 08/07/2024 3:30 PM EST [place]uled [place] [address] documented as of this encounter Procedures Procedure Name Priority Date/Time Associated Diagnosis Comments SURGICAL PATHOLOGY REPORT Routine 07/31/2022 4:53 PM EST documented in this encounter Results * Surgical Pathology Report (07/31/2022 4:53 PM EST) Final Diagnosis [id number] ? Location: [facility] The signing pathologist has (i) examined the relevant preparation(s) for the specimen(s) and (ii) rendered or confirmed the diagnosis(es). . ?Surgical Pathology DIAGNOSIS Toenail, clippings: - Onychomycosis Electronically signed by: ?Kyleigh Magallon MD Verified: ??08/04/2022 12:57 ??Dermatopatholog ist Performed at: ??-[facility] Dept. of Pathology, [place] [address] Ornamental Iron Worker Apprentice: Elana Wakefield MD, FCAP, ??CLIA Certificate: [id number] ADDITIONAL STUDIES PAS/fungus stain highlights fungal hyphal elements in the nail tissue. SPECIMEN(S) SUBMITTED A - toenail clipping Referring Identifier: ??[id number] CLINICAL INFORMATION Onychomycosis SPECIMEN PROCESSING A - Labeled/Fixative: Patient demographics, fresh. Quantity/Size: Multiple, 0.5 x 0.4 x 0.2 cm in aggregate. Tissue Description: Irregular fragments of variegated white to echeverria-brown, thickened unguis tissues. Sections/Processi ng: Submitted en toto in 1 cassette labeled A1. ??shb 08/04/2022 12:57 PM EST [facility] NAIL SPECIMEN / Unknown 07/31/2022 4:53 PM EST 07/31/2022 4:53 PM EST Narrative Resulting Agency Comment Spec In Lab / WKS Sarah Guido UNIVERSAL WORKER ASSISTED LIVING PATHOLOGY/CYTOLOGY ORDERABLES [facility] [place] [address] documented in this encounter Visit Diagnoses Not on filedocumented in this encounter Care Teams Property Technician Relationship Specialty Start Date End Date Ness Diaz APRN [address] [place] [address] PCP - General Family Medicine 05/07/20 05/08/24 documented as of this encounter
--- OUTSIDE RECORDS SUMMARY | 2024-08-06 14:44 | XMS_ITS | Encounter Summary ---
Author Organization [facility] Address [facility] [place] [address] Care Team Providers Care Site Director Name Role Phone Ness Diaz DARIANA Primary Care Provider Encounter Details Date Type Department Care Team (Latest Contact Info) Description 06/23/2020 11:30 AM EDT TH Visit (TeleHealth) [place] [address] Matilda Zapata APRN [facility] [place] [address] Closed fracture of face bones due to [...] dizzy spells and numbness in face around mosque and gums on right side. He was [...] 1:30 PM EST Clinical [place] [address] 08/07/2024 3:30 PM EST Scheduled [place] [address] documented as of this encounter Visit Diagnoses Diagnosis Closed fracture of face bones due to fall with routine healing, subsequent encounter documented in this encounter Care Teams Site Director Relationship Specialty Start Date End Date Ness Diaz APRN [address] [place] [address] PCP - General Family Medicine 05/07/20 05/08/24 documented as of this encounter
--- OUTSIDE RECORDS SUMMARY | 2024-08-06 14:44 | XMS_ITS | Encounter Summary ---
Author Organization [facility] Address [facility] [place] [address] Care Team Providers Care Relief Operator Name Role Phone None Primary Care Provider Unavailabl e Encounter Details Date Type Department Care Team (Latest Contact Info) Description 06/14/2018 6:49 PM EDT - 06/14/2018 11:59 PM EDT Hospital Encounter Radiology Library at [facility] [place] Anand [address] Discharge Disposition: Home Social History Tobacco Use [...] Take 100 mg by mouth nightly. multivitamin Ogxw-Xt-HK-Min (THERAPEUTIC-M) 27-0.4 mg Tablet Take 1 tablet [...] 1:30 PM EST [place] [address] 08/07/2024 3:30 PM EST [place]uled [place] [address] documented as of this encounter Procedures Procedure [...] injury. Jose A Sargent MD IMG OUTSIDE [facility] TATION ORDERABLES documented in this encounter Visit Diagnoses Not on filedocumented in this encounter Care Teams Relief Operator Relationship Specialty Start Date End Date None None PCP - General 08/09/10 07/22/18 documented as of this encounter
--- OUTSIDE RECORDS SUMMARY | 2024-08-06 14:44 | XMS_ITS | Encounter Summary ---
[place] [address] Care Team Providers Care [employer] Name Role Phone Cintia Jones APRN Primary Care Provider [phone] Reason for Referral * Consultation (Urgent) - Authorized Specialty Diagnoses / Procedures Referred By Christin connelly Referred To Contact Urology Diagnoses Dysuria Hematuria, unspecified type Hydronephrosis, unspecified hydronephrosis type Cintia Jones APRN [address] [place] [address] [facility] [place] [address] Referral ID Status Reason Start Date Expiration Date Visits Requested Visits Authorized [id number] Authorized Consult, Test & Treat PCP Updated and/or Approved 04/23/2024 04/23/2025 6 6 Encounter Details Date Type Department Care Team (Latest Contact Info) Description 05/09/2024 Transcribe Orders eDH Incoming Referrals [phone] Cintia Jones APRN [address] [place], [place] [id number] Dysuria; Hematuria, unspecified type; Hydronephrosis, unspecified hydronephrosis [...] 1:30 PM EST [place] [address] 08/07/2024 3:30 PM EST [place]uled [place] [address] Scheduled Referrals Name Type Priority Associated Diagnoses Orde r Schedule Referral to Urology Outpatient Referral Urgent Dysuria Hematuria, unspecified type Hydronephrosis, unspecified hydronephrosis type Ordered: 05/09/2024 documented as of this encounter Visit Diagnoses Diagnosis Dysuria Hematuria, unspecified type Hydronephrosis, unspecified hydronephrosis type documented in this encounter Care Teams [employer] Relationship Specialty Start Date End Date Cintia Jones APRN [address] [place] [address] PCP - General Family Medicine 05/09/24 documented as of this encounter
--- OUTSIDE RECORDS SUMMARY | 2024-08-06 14:44 | XMS_ITS | Encounter Summary ---
Author Organization Counts Include [address] [facility] Address [facility] [place] [address] Care Team Providers Care Mail Carriers Supervisor Name Role Phone Cintia Jones APRN Primary Care Provider [phone] Reason for Visit * Auth/Cert (Routine) Specialty Diagnoses / Procedures Referred By Christin connelly Referred To Contact Diagnoses Bladder tumor to Procedures PRO CYSTOURETHROSCOPY, FULGUR >5CM LESN PRO CYSTOURETHROSCOPY, URETER CATHETER CYSTO, RESECTION BLADDER TUMOR, GREATER THAN 5.0CM (WRVU 7.5) CYSTO, RETROGRADE, URETEROPYELOGRAPHY (WRVU 2.37) Umu Frye MD [facility] [place] [address] [facility] Referral ID Status Reason Start Date Expiration Date Visits Re quested Visits Authorized [id number] 1 1 Encounter Details Date Type Department Care Team (Late st Contact Info) Description 07/29/2024 12:15 PM EST - 07/29/2024 2:33 PM EST Surgery [place] [address] Umu Frye MD [facility] [place] [address] CYSTO, RESECTION BLADDER TUMOR, GREATER THAN 5.0CM (WRVU 7.5) Social History Tobacco Use Types Packs/Day Years Used Date Smoking Tobacco: Former Cigarettes Smokeless Tobacco: Never Comments:Quit 4 months ago p er pt. Alcohol Use Standard Drinks/Week Comments Not Currently 0 (1 standard drink = 0.6 oz pure alcohol) was a heavy drinker, now drinks <3beers per month [facility] Utilities Answer Date Recorded In [...] any time in the past 12 m [facility], were you homeless or [...] Jimenez Marin Patient Age: 69 y.o. Language: Luxembourger Race: White Ethnicity: Not nor Admit date: [...] y.o. male with a history of COPD, [place] s/p stents, recently quit smoking, gross hematuria, [...] also sees a palliative care physician in [facility],but doesn't know her name and doesn't [...] Hospital Course: Patient was admitted electively to [facility] via the same day surgery program and [...] best judgement (pending path report), he has [id number] bladder cancer, I.e., locally advanced. Given his overall poor health, he is not a candidate for radical cystectomy. Given bulk of disease,he is not a candidate for bladder sparing trimodal therapy. Thus, goals of care are palliative. We referred him for consideration of palliative radiotherapy to [facility]. Given his poor overall health and extent of cancer, I believe his life expectancy is less than 1 year. Our palliative care connected with his palliative care physician in [facility] Who will provide follow-up. Discharge [...] yann - CRISTIANE w/ Palliative care at [facility] 08/05 w/ Dr Byrd -Cx: Ucx [...] 07/30/2024 2:50 AM) Result Value WORKSTATION ID [id number] Impression 1. Although decompressed by Ferris catheter, [...] who have questions please contact the health account executive healthcare that requested your imaging first. Electronically signed by: Demetrius Washington [facility] ([phone]), at 07/30/2024 7:42 AM Pending Studies and [...] the lungs 2 times daily. Generic drug: zzglvcbzxx-iibkkbpwpgqvdt-badbunvsas 2 puff Refills: 0 citalopram 20 mg [...] mouth daily. 15 mg Refills: 0 multivitamin Ufxw-Ql-UR-Min 27-0.4 mg Tablet Commonly known as: Therapeutic-M [...] to urinate, please call our office at [phone] before 5PM or [phone] after hours or go to your localEmergency [...] more blood in your urine - The [facility] palliative care team has recommended opioid pain medication to be prescribe. You have been prescribed OxyContin 10mg twice daily, and oxycodone 5mg every 4 hours as needed for breakthroughpain. We will send you on a 4-5 day prescription of this medication and your [facility] palliative care team will fill/change all future refills. Follow-up: - An appointment has been scheduled as below. Please call [phone] (clinic number for appointments) to confirm date [...] have been scheduled an appointment with your [facility] Palliative Care team with Dr. [...] coffee grounds or cat litter. General Instructions [facility] Vascular and Interventional Radiology Discharge Instructions for [...] connecting tubing from the drain. Put a credit collections clerk on both the drain and the bag. [...] is during regular office hours, please call [phone]. If it is after regular office hours, or on weekends or holidays, please call [phone] and ask to speak to the Rolling Attendant aviation support equipment repairer for Interventional Radiology. You have received medication [...] 08/07/2024 1:30 PM UROLOGY, NURSE Urology at [facility] Arrive at: Concession Supervisor Area [phone] 08/07/2024 3:30 PM UROLOGY, NURSE Urology at [facility] Arrive at: Concession Supervisor Area [phone] Future Orders Complete By Expires IR Nephrostomy Tube Exchange Left [[id number] Custom] 10/30/2024 11/27/2024 Process Instructions: Scheduling Instructions: Questions: Where will study be performed?: [facility] Radiology To be scheduled: Next available after expected date Reason for exam and clinical history: Left ureteral malignant obstruction, probable invasive bladder tumor with left hydronephrosis and flank pain, left ureteral orifice not visualized. Left 10 Micronesian PCN placed 07/30/2024 Exam/Procedure requested: What labs [...] Marin for admission to Home Health. [address] [facility] [address] (home) Date of : 1955 Inpatient DOCUMENTATION FOR VNA SERVICES (INCLUDING THOSE PATIENTS WITH MEDICARE COVERAGE REQUIRING HOME VNA SERVICES AND/OR HOSPICE SERVICES) PATIENT'S LOCATION: Jimenez Marin [address] [facility] [address] (home) Cell: Telephone Information: College Archivist's Name: Self/Patient In discussion with the attending physician, it is certified that this patient is under their care and that they, or a Nurse Practitioner, Clinical Nurse specialist or Physician Water Vessel Captain who is working directly with them, had [...] for managing ADLs. HOME HEALTH CARE AGENCY: [facility]. [address] [place] [address] START OF CARE: within 24-48 hours of [...] APRN [address] [place] [address] . All VNA agencies whichcover the area [...] CENTER Primary Care Provider: Cintia Jones APRN [phone] Follow-up Recommendations for Providers: See lung CT findings above regarding wedge shaped plaque in right lung upper lobe. Assess and possible further outpatient workup. In setting of previous [place] patient was on Plavix, but this was [...] was managed by the Urology Team at [facility]. If you have any questions or concerns, please feel free to contact us. Provider Contact Information: Urology Clinic: [facility] (after business hours): Time spent on discharge plannin minutes DIANA Zhao 08/02/2024 * Wale Torrez PA - 07/30/2024 2:42 PM EST Images from the original note were not included. Discharge Summary Patient Name: Jimenez Marin Patient Age: 69 y.o. Language: Luxembourger Race: White Ethnicity: Not nor Admit date: [...] y.o. male with a history of COPD, [place] s/p stents, recently quit smoking, gross hematuria, [...] also sees a palliative care physician in [facility],but doesn't know her name and doesn't [...] Hospital Course: Patient was admitted electively to [facility] via the same day surgery program and [...] best judgement (pending path report), he has [id number] bladder cancer, I.e., locally advanced. Given his overall poor health, he is not a candidate for radical cystectomy. Given bulk of disease,he is not a candidate for bladder sparing trimodal therapy. Thus, goals of care are palliative. We referred him for consideration of palliative radiotherapy to [facility]. Given his poor overall health and extent of cancer, I believe his life expectancy is less than 1 year. Our palliative care connected with his palliative care physician in [facility] Who will provide follow-up. He [...] yann - CRISTIANE w/ Palliative care at [facility] 08/05 w/ Dr Byrd -Cx: Ucx [...] 07/30/2024 2:50 AM) Result Value WORKSTATION ID [id number] Impression 1. Although decompressed by Ferris catheter, [...] who have questions please contact the health account executive healthcare that requested your imaging first. Electronically signed by: Demetrius Washington [facility] ([phone]), at 07/30/2024 7:42 AM Pending Studies and [...] the lungs 2 times daily. Generic drug: qcfaemopxf-xwdnxyrdfwbsuu-najzrynshh 2 puff Refills: 0 citalopram 20 mg [...] mouth daily. 15 mg Refills: 0 multivitamin Zdnm-Ix-ZR-Min 27-0.4 mg Tablet Commonly known as: Therapeutic-M [...] to urinate, please call our office at [phone] before 5PM or [phone] after hours or go to your localEmergency [...] more blood in your urine - The [facility] palliative care team has recommended opioid pain medication to be prescribe. You have been prescribed OxyContin 10mg twice daily, and oxycodone 5mg every 4 hours as needed for breakthroughpain. We will send you on a 4-5 day prescription of this medication and your [facility] palliative care team will fill/change all future refills. Follow-up: - An appointment has been scheduled as below. Please call [phone] (clinic number for appointments) to confirm date [...] call our office. Future Appointments Date Time [facility] 08/07/2024 1:30 PM UROLOGY, NURSE [facility] 08/07/2024 3:30 PM UROLOGY, NURSE [facility] You have been scheduled an appointment with your [facility] Palliative Care team with Dr. [...] coffee grounds or cat litter. General Instructions [facility] Vascular and Interventional Radiology Discharge Instructions for [...] connecting tubing from the drain. Put a credit collections clerk on both the drain and the bag. [...] is during regular office hours, please call [phone]. If it is after regular office hours, or on weekends or holidays, please call [phone] and ask to speak to the Rolling Attendant aviation support equipment repairer for Interventional Radiology. You have received medication [...] 08/07/2024 1:30 PM UROLOGY, NURSE Urology at [facility] Arrive at: Concession Supervisor Area [phone] 08/07/2024 3:30 PM UROLOGY, NURSE Urology at [facility] Arrive at: Concession Supervisor Area [phone] Future Orders Complete By Expires IR Nephrostomy Tube Exchange Left [[id number] Custom] 10/30/2024 11/27/2024 Process Instructions: Scheduling Instructions: Questions: Where will study be performed?: [facility] Radiology To be scheduled: Next available after expected date Reason for exam and clinical history: Left ureteral malignant obstruction, probable invasive bladder tumor with left hydronephrosis and flank pain, left ureteral orifice not visualized. Left 10 Micronesian PCN placed 07/30/2024 Exam/Procedure requested: What labs [...] CENTER Primary Care Provider: Cintia Jones APRN [phone] Follow-up Recommendations for Providers: See lung CT findings above regarding wedge shaped plaque in right lung upper lobe. Assess and possible further outpatient workup. In setting of previous [place] patient was on Plavix, but this was [...] was managed by the Urology Team at [facility]. If you have any questions or concerns, please feel free to contact us. Provider Contact Information: Urology Clinic: [facility] (after business hours): Time spent on discharge plannin minutes DIANA Sevilla 08/01/2024 documented in this encounter Discharge Instructions * Discharge Instructions* Juli Howe RN - 07/30/2024 12:47 PM EST Images from the original note were not included. [facility] Vascular and Interventional Radiology Discharge Instructions for [...] connecting tubing from the drain. Put a credit collections clerk on both the drain and the bag. [...] is during regular office hours, please call [phone]. If it is after regular office hours, or on weekends or holidays, please call [phone] and ask to speak to the Rolling Attendant aviation support equipment repairer for Interventional Radiology. You have received medication [...] to urinate, please call our office at [phone] before 5PM or [phone] after hours or go to your localEmergency [...] more blood in your urine - The [facility] palliative care team has recommended opioid pain medication to be prescribe. You have been prescribed OxyContin 10mg twice daily, and oxycodone 5mg every 4 hours as needed for breakthroughpain. We will send you on a 4-5 day prescription of this medication and your [facility] palliative care team will fill/change all future refills. Follow-up: - An appointment has been scheduled as below. Please call [phone] (clinic number for appointments) to confirm date [...] Department Center 08/07/2024 1:30 PM UROLOGY, NURSE [facility] URO [facility] 08/07/2024 3:30 PM UROLOGY, NURSE [facility] You have been scheduled an appointment with your [facility] Palliative Care team with Dr. [...] * Indwelling Urinary Catheter Care: General Info (Luxembourger) documented in this encounter Medications at Time [...] mouth daily. fluticasone propionate (FLONASE) 50 mcg/actuation [place], Suspension 1 spray daily. lisinopril (PRINIVIL;ZESTRIL) 10 mg Tablet Take 10 mg by mouth daily. aspirin 81 mg Tablet, Delayed Release (E.C.) Take 81 mg by mouth daily. omeprazole (PRILOSEC) 20 mg Capsule, Delayed Release(E.C.) Take 20 mg by mouth daily. traZODone (DESYREL) 100 mg Tablet Take 100 mg by mouth nightly. multivitamin Njbn-Ge-YW-Min (THERAPEUTIC-M) 27-0.4 mg Tablet Take 1 tablet [...] [facility] has arranged for a local city driver to pick the patient up at Entrance 2 at 1:00pm. The volunteer local city driver is Sharan and he will have a Blueleaf. Providers updates. Tiara Joseph [facility] Office of Case Management-Curb Worker Clinical Curb Worker ED CDU SDP , Pager [phone] * Sujatha Marin MD - 08/01/2024 4:48 PM EST Urology Inpatient Progress Note Patient Name: Jimenez Marin Patient Age: 69 y.o. Birthdate: 1955 Admit date: 07/29/2024 Attending Physician: Umu Frye MD ID: Jimenez Marin is a 69 y.o. male, w/ PMHx of COPD, [place] s/p stents, recent smoker, chronic CP/SOBon home [...] (Generic) Result Value Ref Range WORKSTATION ID [id number] CBC (with Diff) Result Value Ref Range [...] 07/30/2024 2:50 AM) Result Value WORKSTATION ID [id number] Impression 1. Although decompressed by Ferris catheter, [...] who have questions please contact the health account executive healthcare that requested your imaging first. Electronically signed by: Demetrius Washington, [facility] ([phone]), at 07/30/2024 7:42 AM ASSESSMENT: Jimenez Marin w/PMHx of COPD, [place] s/p stents, recent smoker, chronic CP/SOB on [...] at an OSH for his COPD and [facility] palliative have connected with them and will transition his care upon discharge. Additionally upon discharge he will benefit from palliative radiation and a consult was placed to [facility] for future care. He is severely [...] is a 69 y.o. single male from [place], [place] with advanced COPD on O2, ASCVD [...] been seen by Dr. Bethany Byrd of [facility] Palliative Medicine Clinic related to his COPD (last visit in February predated his recent cancer diagnosis). [facility] highlights: 07/29 cystoscopy, resection of bladder tumor, [...] on cartoons) and expressed interest in the [employer] channel. 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 Does not name any family members who he is close with. Lives with a roommate, Erich Hawley, [place] in [place], [place] with beautiful views. No pets, but [...] is a(n) 69 y.o. single male from [place], [place] with advanced COPD on O2, ASCVD [...] [place]. Regarding physical symptoms, Jimenez has cancer [...] today 08/01, Jimenez's Palliative Care team in [facility] (Dr. Byrd) was kindly able to [...] had extensive conversations with Dr. Byrd (Palliative [facility]) about trying to identify a surrogate and is okay with having one appointed if needed as he does not feel any family/friends would be appropriate. See media tab for AD 03/04/24 Follow-up wit outpatient palliative care provider, Dr. Bethany Byrd, at [facility] ([phone]) as below #Serious illness-associated symptom recommendations #Cancer [...] shared a value for visitors/company (including Volunte[employer], [employer]). He shared insight the hearing difficult news is hard while also knowing that the information is helpful for planning. He has had bucket lists in the past but nothing right at this moment. Will continue to explore. -Screened for spiritual care needs? Yes--declined -Primary palliative care nurse: None; has some support from his roommate, Erich -Interdisciplinary Team members engaged: [] Palliative [employer]; [] BIT involved; [x] [employer]; [] [...] SundayAUGUST 05 at 10:30AM. Address is [facility], [address] [place] [address], [address], [place] [address]. I wrote this down for Jimenez and reviewed it in person. He repeated back that he has an appointment with [facility] Palliative Care next Sunday at 1030. He knows that he will discharge with enough pain medicine to get to this appointment and then they will take over. He relayed he knows how to arrange transportation. Fredrikc Ritchie MD Palliative care team pager #[phone] ~50 minutes were spent over the course [...] 69 y.o. male, w/ PMHx of COPD, [place] s/p stents, recent smoker, chronic CP/SOBon home [...] QTC Calculated (Bezet) 458 ms Calculated P [place] 7 degrees Calculated R [place] 70 degrees Calculated T [place] 88 degrees INTERPRETATION Normal sinus rhythm T wave abnormality, consider lateral ischemia Abnormal ECG When compared with ECG of 15-JUN-2018 10:36, T wave inversion now evident in Anterolateral leads Confirmed by MD Staci, Kev ([id number]) on 07/29/2024 4:00:[address] Chest Abdomen Pelvis w Contrast (Generic) Result Value Ref Range WORKSTATION ID [id number] CBC (with Diff) Result Value Ref Range [...] 07/30/2024 2:50 AM) Result Value WORKSTATION ID [id number] Impression 1. Although decompressed by Ferris catheter, [...] who have questions please contact the health account executive healthcare that requested your imaging first. Electronically signed by: Demetrius Washington, [facility] ([phone]), at 07/30/2024 7:42 AM ASSESSMENT: Jimenez Marin w/PMHx of COPD, [place] s/p stents, recent smoker, chronic CP/SOB on [...] at an OSH for his COPD and [facility] palliative will attempt to reach out to him to coordinate transition of care. We will request an attending-attending with palliative care to better disucss his prognosis and needs prior to discharge. Additionally upon discharge he will benefit from palliative radiation and a consult was placed to [facility] for future care. He is severely [...] of two midnights or is on the [facility] inpatient only procedure list (status C) due to: post-operative care that cannotbe delivered as an outpatient; examples: pain only controlled with IV pain medication; frequent or complex wound care/dressing changes; NPO requiring IV fluid support. I also discussed the patient's care with the palliative care team. Based on my best judgement (pending path report), he has [id number] bladder cancer, I.e., locally advanced. Given his overall poor health, he is not a candidate for radical cystectomy. Given bulk of disease,he is not a candidate for bladder sparing trimodal therapy. Thus, goals of care are palliative. We referred him for consideration of palliative radiotherapy to [facility]. Given his poor overall health and extent of cancer, I believe his life expectancy is less than 1 year. Our palliative care connected with his palliative care physician in [facility] Who will provide follow-up. Anticipate patient will be ready for d/c to home tomorrow. Umu Frye MD, MS 07/31/2024 Urologic Oncology [facility], [place], [place] facsimile operator (Urology) and of [facility], [facility] at [facility] * Gian Talbert RN - 07/31/2024 [...] Illness: also consider consultation to BIT and electric pile driver operator if appropriate History of Present Illness: Jimenez Marin is a(n) 69 y.o. male from [facility] with newly diagnosed Muscle invasive bladder cancer, admitted for planned TURBT. History with Palliative Care: Chart review shows that he worked with Palliative Care MD in [facility], though he was not sure her name. Call to [facility], who confirms Jimenez has [...] Full consultation to follow Outpatient Established with [facility] palliative care clinic, last visit 03/02 Delfina Rivera, RN Inpatient Nurse Clinician Palliative care team pager #[phone] * Sujatha Marin MD - 07/30/2024 1:59 PM EST Urology Inpatient Progress Note Patient Name: Jimenez Marin Patient Age: 69 y.o. Birthdate: 1955 Admit date: 07/29/2024 Attending Physician: Umu Frye MD ID: Jimenez Marin is a 69 y.o. male, w/ PMHx of COPD, [place] s/p stents, recent smoker, chronic CP/SOBon home [...] QTC Calculated (Bezet) 458 ms Calculated P [place] 7 degrees Calculated R [place] 70 degrees Calculated T [place] 88 degrees INTERPRETATION Normal sinus rhythm T wave abnormality, consider lateral ischemia Abnormal ECG When compared with ECG of 15-JUN-2018 10:36, T wave inversion now evident in Anterolateral leads Confirmed by MD Staci, Kev ([id number]) on 07/29/2024 4:00:[address] Chest Abdomen Pelvis w Contrast (Generic) Result Value Ref Range WORKSTATION ID [id number] CBC (with Diff) Result Value Ref Range [...] 07/30/2024 2:50 AM) Result Value WORKSTATION ID [id number] Impression 1. Although decompressed by Ferris catheter, [...] who have questions please contact the health account executive healthcare that requested your imaging first. Electronically signed by: Demetrius Washington [facility] ([phone]), at 07/30/2024 7:42 AM ASSESSMENT: Jimenez Marin w/PMHx of COPD, [place] s/p stents, recent smoker, chronic CP/SOB on [...] of two midnights or is on the [facility] inpatient only procedure list (status [...] of : 1955 AGE: 69 y.o. Address: [address] [place] [id number] (home) Mobile: Telephone Information: Referring Provider: Umu [...] that the dr was femaleand located in [facility]. Contacted pt's PCP office to see if they had an Advance Directive on file. They were unable to locate one. Follow Up Needed: Pt declines connection to additional resources. [employer] will attempt to locate Palliative doctor for Advance Directive. HARMONY Cotter, ECONOMIST RESEARCH ASSISTANT Medical Assisting Program Director Curb Worker Office of Care Management [phone] * Zara Sanford RD - 07/30/2024 10:52 AM EST Nutrition Initial Note Jimenez Marin is a 69 y.o. male admitted with bladder tumor. Relevant medical history includes COPD, WV s/p stents, gross hematuria, bladder mass. Interval History No data found. Reason for Assessment: Low BMI, Malnutrition Evaluation Nutrition Recommendations: Regular Diet Encourage PO intake, document %PO in flowsheets ONS BID Milk with each meal per pt request Continuum of Care Plan Referral to Outpatient Services: follow up with outpatient RD - if following with clinic in [facility] recommend referral to RD there. Recommend Multivitamin- order pended Patient meets criteria for severe protein calorie malnutrition as outlined below I was able to discuss plan with provider Urology #[id number] . Sujatha Marin MD. Current Nutrition Regimen: [...] encounter: 45.9 kg (101 lb 1.6 oz). Jessie Body Weight (IBW) (kg): 80.91 Usual Body [...] is open to receiving while admitted. This loan underwriter emphasized the importance of protein for healing. Provided pt with high protein snack list to identify additional snacks. Pt inquired about NPO status; has a regular diet and ordered lunch for patient today. NFPE conducted, severe muscle and fat loss noted and visually apparent. Recommend outpatient follow up with RD; if patient is following with clinic in [facility], recommend referral to RD at clinic there. Nutrition Focused Physical Exam: Performed (07/31/24 CAB) . Subcutaneous Fat Loss Orbital region: Severe (buccal: severe) Upper arm region (triceps/biceps): Severe Thoracic and Lumbar regions (ribs, lower back, and maxillary line): Not assessed Lean Muscle Loss [place] region (temporalis muscle): Severe Clavicle bone region [...] Add LDA for any identified wounds Add [place] image for any suspected PI or non [...] mouth daily. fluticasone propionate (FLONASE) 50 mcg/actuation [place], Suspension 1 spray daily. lisinopril (PRINIVIL;ZESTRIL) 10 mg Tablet Take 10 mg by mouth daily. omeprazole (PRILOSEC) 20 mg Capsule, Delayed Release(E.C.) Take 20 mg by mouth daily. traZODone (DESYREL) 100 mg Tablet Take 100 mg by mouth nightly. multivitamin Fahv-Fa-HR-Min (THERAPEUTIC-M) 27-0.4 mg Tablet Take 1 tablet [...] Prior to Encounter Medication Sig Dispense Refill OluKaii Aerosphere 160-9-4.8 mcg/actuation inhaler (HFA) Inhale 2 [...] mouth daily. fluticasone propionate (FLONASE) 50 mcg/actuation [place], Suspension 1 spray daily. lisinopril (PRINIVIL;ZESTRIL) 10 mg Tablet Take 10 mg by mouth daily. omeprazole (PRILOSEC) 20 mg Capsule, Delayed Release(E.C.) Take 20 mg by mouth daily. traZODone (DESYREL) 100 mg Tablet Take 100 mg by mouth nightly. multivitamin Tiek-Xh-QX-Min (THERAPEUTIC-M) 27-0.4 mg Tablet Take 1 tablet [...] y.o. male with a history of COPD, WV s/p stents, recently quit smoking, gross hematuria, [...] also sees a palliative care physician in [facility],but doesn't know her name and doesn't [...] MD, MS 07/29/2024 1:10 PM Urologic Oncology [facility], [place], [place] facsimile operator (Urology) and of [facility], [facility] documented in this encounter Miscellaneous Notes [...] completed. Pt discharged, via W/C, accompanied by [facility]. All belongings with pt, discharged to home [...] of Discharge: 08/01/2024 Bethany Frank RN-BSN-CM Pager: [phone] * Care Management - Bethany Frank RN - 08/01/2024 2:32 PM EST The Patient has been provided a list of Home Health Agencies/DME vendors which serve their preferred geographic area. A letter describing our affiliations was reviewed with them and they were educated about their right to choose where referrals are placed. Patient requests referral to : [facility] [employer]. [address] [place] [id number] Expected date of discharge: 08/02/2024. Referral routed to the Supervisor [employer]ising for matching with agency/vendor and to provide any required information. * Care Management - Katia Knpap - 08/01/2024 11:40 AM EST Transportation for discharge has been scheduled/confirmed through [facility]. [facility] will have a local city driver here at 14:15 at entrance #2 (inpatient visitor entrance) to provide patient with a ride home. * Initial Assessments - Shavonne Eaton, OT - 08/01/2024 9:40 AM EST Occupational Therapy Evaluation Patient profile: Jimenez Marin is a 69 y.o. male admitted on 07/29/2024. Pt with PMH of COPD, WV s/p stents, recent smoker, chronic CP/SOB on [...] Placement Percutaneous Left 07/30/2024 Jamin Ugarte MD [facility] INTERVENTIONL RAD PRO CYSTOURETHROSCOPY, FULGUR >5CM LESN N/A 07/29/2024 CYSTO, RESECTION BLADDER TUMOR, GREATER THAN 5.0CM (WRVU 7.5) performed by Umu Frye MD at [facility] MAIN OR PRO UNLISTED PX RECTUM N/A 07/29/2024 EUA RECTUM (WRVU 7.56) performed by Umu Frye MD at [facility] MAIN OR Activity Orders: Activity Orders [...] and VSS. RN and team notified via [id number] conversation regarding Pt status, d/c recommendations, and [...] evaluation only Total Minutes, Occupational Therapy: 27 (9632-5951 (Low Eval)) 2017 OT Evaluation Code Rationale: [...] PANCHOR/L She/her Occupational Therapy Rehabilitation Department Pager: [phone] * Initial Assessments - Ines Combs, PT - 08/01/2024 9:40 AM EST Physical Therapy Evaluation Patient profile: Jimenez Marin is a 69 y.o. male admitted on 07/29/2024. Pt with PMHx of COPD, WV s/p stents, recent smoker, chronic CP/SOB on [...] Placement Percutaneous Left 07/30/2024 Jamin Ugarte MD [facility] INTERVENTIONL RAD PRO CYSTOURETHROSCOPY, FULGUR >5CM LESN N/A 07/29/2024 CYSTO, RESECTION BLADDER TUMOR, GREATER THAN 5.0CM (WRVU 7.5) performed by Umu Frye MD at [facility] MAIN OR PRO UNLISTED PX RECTUM N/A 07/29/2024 EUA RECTUM (WRVU 7.56) performed by Umu Frye MD at [facility] MAIN OR Active Non-Hospital Problems Diagnosis [...] 27 minutes; Arash Combs PT DPT Pager: [phone] Physical Therapy Inpatient Rehabilitation Department * Consult [...] Illness: also consider consultation to BIT and electric pile driver operator if appropriate History of Present Illness: Jimenez Marin is a(n) 69 y.o. male from [place], [place] with a past medical history (per chart review) of COPD (on home O2 as needed, CAD s/p WV (around 2009, s/p 2 stents, on ASA), Bipolar (well- controlled on medications), history of tobacco use (quit in January 2024, previously smoked 1ppd since he was 13yo), previous marijuana use, and HTN who presented to [facility] for scheduled TURBT procedure in the setting of recently diagnosed bladder cancer. Jimenez initially presented to the ED in [facility] on 04/17/2024 for dysuria, and abdominal [...] for TURBT +/- PCN v stent at [facility]. On 07/29, Jimenez underwent cystoscopy, and resection [...] pain. Of note, Jimenez was referred to [facility] ([phone]) by his traveling nurse, Dr. 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 He last saw Dr. Bethany Byrd on 03/04/2024, who helped him to complete a COLST and AD. He hasnot been seen in this office since his bladder cancer diagnosis. 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 Does not name any family members who he is close with. Lives with a roommate, Erich Hawley, [place], [place] with beautiful views. No pets, but [...] confirmed that he is being seen at [facility] palliative care office for COPD, but [...] Marin is a(n) 69 y.o. male from [facility] with newly diagnosed Muscle invasive bladdercancer, [...] prognosis could be short as one year. Jimenze's support system is limited to his roommate Erich. He didn't share any specific goals, but most looks forward to [place]. He has palliative care follow up scheduled for 09/02. This inpatient palliative care team will provide warm hand off to the [facility] office upon discharge to ensure that [...] palliative care provider, Dr. Bethany Byrd, at [facility] ([phone]) -Based on documentation of their most recent discussion, Code Status is DNAR/accepting of time limited trial of intubation if necessary. Jimenez aware his Code Status was changed for this procedure. However, POLST not changed as consistent with wishes for care outside of this acute hospital stay. -POLST and AD completed at outpatient Palliative Care office visit on 03/04/2024 (Available in [facility] media section). #Serious illness-associated symptom recommendations #Cancer [...] -Screened for spiritual care needs? No -Primary palliative care nurse: None; has some support from his roommate, Erich -Interdisciplinary Team members engaged: [] Palliative CEILING INSULATION BLOWER; [] BIT involved; [x] [facility]; [] [...] up scheduled with outpatient palliative care at [facility] on 09/02 I have reviewed the patient's case along with my assessment and recommendations collaboratively with my supervising Palliative faculty Dr. Fredrick Ritchie. Kristel Chung, DO Palliative care team pager #[phone] Associated attestation - Fredrick Ritchie MD - [...] care. As noted, we obtained records from [facility] where Jimenez [...] has had extensive conversations with Dr. Byrd(Palliative [facility]) about trying to identify a [...] with both PCP and Palliative Care in [facility] would be ideal. Fredrick Ritchie MD Palliative [...] surrogate would be surrogate decision maker per [place] surrogate decision making law. (Only good for 180 days): Erich Hawley Any patient receiving care in [place] must abide by [place] law. The hierarchy for surrogate decision making [...] (i) The agent with financial power of defense attorney or a conservator appointed in accordance with RSA 464-A. (j) The guardian of the patient???s estate. Advance Care Planning: Attempt Cardiopulmonary Resuscitation - Inpatient <no information> -Advanced Directive: No, declines (Pt states he has done an AD with Palliative Care, though cannot recall exactly with whom and from what agency. It was a woman, in [facility]. Contacted pt's PCP to get more [...] homeless or living in a intermediate (including now)?: No In the past 12 [...] doesn't use/need it) Home Address confirmed as: [facility] [facility] [address] Social & Family Supports: All names listed [...] to assess Primary Care Provider confirmed: Cintia oJnes, BUTADIENE CONVERTOR OPERATOR [phone] Patient/Caregiver Goals of Treatment: Recover and return [...] y.o. male with a history of COPD, WV s/p stents, recently quitsmoking, gross hematuria, and bladder mass seen on a CT scan with office cystoscopy on 06/02/24 notable for a large sessile appearing left and right sided bladder wall/neck mass(es) noted. There was amass on the trigone and UO not visualized. He presents for TURBT/RPG, possible stent vs PCN. Pt lives with a roommate in a trailer in [facility]. Pt states that he lives on [...] coordination of care as indicated. HARMONY Cotter, ECONOMIST RESEARCH ASSISTANT Medical Assisting Program Director Curb Worker Office of Care Management [phone] * Op Note - Jocy Etienne MD - 07/29/2024 2:10 PM EST [facility] Operative Note Patient Name: Jimenez Marin : [id number] MR#: [id number] Case Date: 06/24/2024 - 07/29/2024 Surgeon: Surgeons [...] y.o. male with a history of COPD, WV s/p stents, recently quit smoking, gross hematuria, [...] also sees a palliative care physician in [facility],but doesn't know her name and doesn't [...] 1:30 PM EST Clinical [place] [address] 08/07/2024 3:30 PM EST Scheduled [place] [address] Pending Results Name Type Priority Associated Diagnoses [...] 2:50 AM EST Rectum Surgery Procedure Unlisted ([id number]) 07/29/2024 1:50 PM EST bladder tumor Cystourethroscopy, Fulgur >5Cm Lesn ([id number]) 07/29/2024 1:50 PM EST bladder tumor EKG 12-LEAD Routine 07/29/2024 1:16 PM EST Chest pain, unspecified type documented in this encounter Results * (ABNORMAL) Basic Metabolic Panel (08/02/2024 4:52 AM EST) Glucose 146 65 - 199 mg/dL 08/02/2024 5:35 AM [facility] Comment:Glucose Concentratio n >=200 mg/dL plus symptoms is consistent with Diabetes Mellitus. Blood Urea Nitrogen 18 10 - 20 mg/dL 08/02/2024 5:35 AM [facility] Creatinine 0.92 0.80 - 1.50 mg/dL 08/02/2024 5:35 AM [facility] Sodium 133(L) 135 - 145 mMol/L 08/02/2024 5:35 AM [facility] Potassium 4.1 3.5 - 5.0 mMol/L 08/02/2024 5:35 AM [facility] Chloride 96(L) 98 - 107 mMol/L 08/02/2024 5:35 AM [facility] Carbon Dioxide 28 22 - 31 mMol/L 08/02/2024 5:35 AM [facility] Anion Gap 9 5 - [...] EST Umu Frye MD CHEMISTRY ORDERABL ES [facility] [place] [address] * (ABNORMAL) CBC (with Diff) (08/02/2024 4:52 [...] EST Umu Frye MD HEMATOLOGY ORDERAB LES [facility] [place] [address] * (ABNORMAL) Basic Metabolic Panel (08/01/2024 5:36 AM EST) Glucose 133 65 - 199 mg/dL 08/01/2024 6:37 AM [facility] Comment:Glucose Concentratio n >=200 mg/dL plus symptoms is consistent with Diabetes Mellitus. Blood Urea Nitrogen 21(H) 10 - 20 mg/dL 08/01/2024 6:37 AM [facility] Creatinine 1.04 0.80 - 1.50 mg/dL 08/01/2024 6:37 AM [facility] Sodium 133(L) 135 - 145 mMol/L 08/01/2024 6:37 AM [facility] Potassium 4.2 3.5 - 5.0 mMol/L 08/01/2024 6:37 AM [facility] Chloride 95(L) 98 - 107 mMol/L 08/01/2024 6:37 AM [facility] Carbon Dioxide 29 22 - 31 mMol/L 08/01/2024 6:37 AM [facility] Anion Gap 9 5 - 15 mMol/L 08/01/2024 6:37 AM [facility] Calcium 9.4 8.5 - 10.5 mg/dL 08/01/2024 6:37 AM [facility] Est Glomerular Filtration Rate - Male 78 mL/min/1. 73 m?? 08/01/2024 6:37 AM EST [facility] Comment: This patient's [...] EST Umu Frye MD CHEMISTRY ORDERABL ES [facility] [place] [address] * (ABNORMAL) CBC (with Diff) (08/01/2024 5:36 AM EST) White Blood Cell 12.60(H) 4.00 - 9.50 x10(3)/mc L 08/01/2024 6:16 AM EST [facility] Red Blood Cell 3.44(L) 4.58 - 5.54 x10(6)/mc L 08/01/2024 6:16 AM EST [facility] Hemoglobin 10.2(L) 13.7 - 16.5 g/dL 08/01/2024 6:16 AM EST [facility] Hematocrit 31.5(L) 40.5 - 48.5 % 08/01/2024 6:16 AM EST [facility] Mean Cell Volume 91.6 82.9 - 93.1 fL 08/01/2024 6:16 AM EST [facility] Mean Cell Hemoglobin 29.7 27.5 - 32.1 pg 08/01/2024 6:16 AM [facility] Mean Cell Hemoglobin Concentration 32.4 32.0 - 35.7 g/dL 08/01/2024 6:16 AM [facility] Platelet 316 145 - 357 x10(3)/mc L 08/01/2024 6:16 AM [facility] Mean Platelet Volume 9.2 7.6 - 12.9 fL 08/01/2024 6:16 AM [facility] RDW Standard Deviation 52.8(H) 36.0 - 45.0 fL 08/01/2024 6:16 AM [facility] RDW coefficient of variation 15.7(H) 11.4 - 13.8 % 08/01/2024 6:16 AM [facility] NRBC% auto 0.0 % 08/01/2024 6:16 AM [facility] NRBC Absolute <0.01 <0.01 x10(3)/mc L 08/01/2024 6:16 AM [facility] Neutrophil % 76.1 % 08/01/2024 6:16 AM [facility] Neutrophil Absolute (ANC) - Automated 9.59(H) 1.70 - 6.10 x10(3)/mc L 08/01/2024 6:16 AM [facility] Lymph % 9.4 % 08/01/2024 6:16 AM [facility] Lymph Absolute 1.19 0.90 - 3.20 x10(3)/mc L 08/01/2024 6:16 AM [facility] Monocyte % 9.5 % 08/01/2024 6:16 AM [facility] Monocyte Absolute 1.20(H) 0.30 - 0.90 x10(3)/mc L 08/01/2024 6:16 AM [facility] Eos % 4.0 % 08/01/2024 6:16 AM [facility] Eos Absolute 0.50(H) 0.00 - 0.40 x10(3)/mc L 08/01/2024 6:16 AM EST [facility] Basophil % 0.5 % 08/01/2024 6:16 AM EST [facility] Baso Absolute 0.06 0.00 - 0.10 x10(3)/mc L 08/01/2024 6:16 AM EST [facility] Immature Gran % 0.5 % 6:16 AM [facility] Immature Gran Absolute 0.06(H) 0.00 - 0.04 x10(3)/mc L 08/01/2024 6:16 AM [facility] Blood VENOUS BLOOD SPECIMEN / Unknown Venipuncture / Unknown 08/01/2024 5:36 AM EST 08/01/2024 6:00 AM EST Umu Frye MD HEMATOLOGY ORDERAB LES Performing Organization Address City/State/[facility] Co de Phone Number [facility] [place] [address] * (ABNORMAL) Basic Metabolic Panel (07/31/2024 5:06 AM EST) Glucose 154 65 - 199 mg/dL 07/31/2024 6:00 AM [facility] Comment:Glucose Concentratio n >=200 mg/dL plus symptoms is consistent with Diabetes Mellitus. Blood Urea Nitrogen 17 10 - 20 mg/dL 07/31/2024 6:00 AM [facility] Creatinine 1.02 0.80 - 1.50 mg/dL 07/31/2024 6:00 AM [facility] Sodium 135 135 - 145 mMol/L 07/31/2024 6:00 AM [facility] Potassium 4.6 3.5 - 5.0 mMol/L 07/31/2024 6:00 AM [facility] Chloride 97(L) 98 - 107 mMol/L 07/31/2024 6:00 AM [facility] Carbon Dioxide 28 22 - 31 mMol/L 07/31/2024 6:00 AM EST [facility] Anion Gap 10 5 - 15 mMol/L 07/31/2024 6:00 AM EST [facility] Calcium 9.5 8.5 - 10.5 mg/dL 07/31/2024 6:00 AM EST [facility] Est Glomerular Filtration Rate - Male 80 mL/min/1. 73 m?? 07/31/2024 6:00 AM EST [facility] Comment: This patient's [...] EST Umu Frye MD CHEMISTRY ORDERABL ES [facility] [place] [address] * (ABNORMAL) CBC (with Diff) (07/31/2024 5:06 AM EST) White Blood Cell 16.51(H) 4.00 - 9.50 x10(3)/mc L 07/31/2024 5:31 AM EST [facility] Red Blood Cell 3.78(L) 4.58 - 5.54 x10(6)/mc L 07/31/2024 5:31 AM EST [facility] Hemoglobin 11.0(L) 13.7 - 16.5 g/dL 07/31/2024 5:31 AM EST [facility] Hematocrit 34.6(L) 40.5 - 48.5 % 07/31/2024 5:31 AM [facility] Mean Cell Volume 91.5 82.9 - 93.1 fL 07/31/2024 5:31 AM [facility] Mean Cell Hemoglobin 29.1 27.5 - 32.1 pg 07/31/2024 5:31 AM [facility] Mean Cell Hemoglobin Concentration 31.8(L) 32.0 - 35.7 g/dL 07/31/2024 5:31 AM [facility] Platelet 322 145 - 357 x10(3)/mc L 07/31/2024 5:31 AM [facility] Mean Platelet Volume 9.0 7.6 - 12.9 fL 07/31/2024 5:31 AM [facility] RDW Standard Deviation 51.8(H) 36.0 - 45.0 fL 07/31/2024 5:31 AM [facility] RDW coefficient of variation 15.6(H) 11.4 - 13.8 % 07/31/2024 5:31 AM [facility] NRBC% auto 0.0 % 07/31/2024 5:31 AM [facility] NRBC Absolute <0.01 <0.01 x10(3)/mc L 07/31/2024 5:31 AM [facility] Neutrophil % 83.4 % 07/31/2024 5:31 AM [facility] Neutrophil Absolute (ANC) - Automated 13.77(H) 1.70 - 6.10 x10(3)/mc L 07/31/2024 5:31 AM [facility] Lymph % 6.1 % 07/31/2024 5:31 AM [facility] Lymph Absolute 1.00 0.90 - 3.20 x10(3)/mc L 07/31/2024 5:31 AM [facility] Monocyte % 8.2 % 07/31/2024 5:31 AM [facility] Monocyte Absolute 1.36(H) 0.30 - 0.90 x10(3)/mc L 07/31/2024 5:31 AM EST [facility] Eos % 1.4 % 07/31/2024 5:31 AM EST [facility] Eos Absolute 0.23 0.00 - 0.40 x10(3)/mc L 07/31/2024 5:31 AM EST [facility] Basophil % 0.4 % 07/31/2024 5:31 AM EST [facility] Baso Absolute 0.07 0.00 - 0.10 x10(3)/mc L 07/31/2024 5:31 AM EST [facility] Immature Gran % 0.5 % 5:31 AM [facility] Immature Gran Absolute 0.08(H) 0.00 - 0.04 x10(3)/mc L 07/31/2024 5:31 AM EST [facility] Blood VENOUS BLOOD SPECIMEN / Unknown Venipuncture / Unknown 07/31/2024 5:06 AM EST 07/31/2024 5:26 AM EST Umu Frye MD HEMATOLOGY ORDERAB LES Performing Organization Address [facility]/State/[facility] Co de Phone Number [facility] [place] [phone] * IR Nephrostomy Tube Placement Percutaneous Left [...] which were correct. The patient was positioned [id number] on the procedure table. ??The Left flank [...] Urine Culture No growth 08/01/2024 7:48 AM [facility] Urine URINE SPECIMEN FROM NEPHROSTOMY TUBE / Unknown Non Blood Collection / Unknown 07/30/2024 12:45 PM EST 07/30/2024 2:05 PM EST Jamin Ugarte MD MICROBIOLOGY - GENER AL ORDERABLES [facility] [place] [address] * (ABNORMAL) Basic Metabolic Panel (07/30/2024 5:03 AM EST) Glucose 119 65 - 199 mg/dL 07/30/2024 6:17 AM [facility] Comment:Glucose Concentratio n >=200 mg/dL plus symptoms is consistent with Diabetes Mellitus. Blood Urea Nitrogen 18 10 - 20 mg/dL 07/30/2024 6:17 AM [facility] Creatinine 0.82 0.80 - 1.50 mg/dL 07/30/2024 6:17 AM [facility] Sodium 134(L) 135 - 145 mMol/L 07/30/2024 6:17 AM [facility] Potassium 4.2 3.5 - 5.0 mMol/L 07/30/2024 6:17 AM [facility] Chloride 95(L) 98 - 107 mMol/L 07/30/2024 6:17 AM [facility] Carbon Dioxide 29 22 - 31 mMol/L 07/30/2024 6:17 AM [facility] Anion Gap 10 5 - 15 mMol/L 07/30/2024 6:17 AM [facility] Calcium 9.4 8.5 - 10.5 mg/dL 07/30/2024 6:17 AM [facility] Est Glomerular Filtration Rate - Male 96 mL/min/1. 73 m?? 07/30/2024 6:17 AM [facility] [...] EST Umu Frye MD CHEMISTRY ORDERABL ES [facility] [place] [address] * (ABNORMAL) CBC (with Diff) (07/30/2024 5:03 AM EST) White Blood Cell 11.30(H) 4.00 - 9.50 x10(3)/mc L 07/30/2024 6:02 AM [facility] Red Blood Cell 3.85(L) 4.58 - 5.54 x10(6)/mc L 07/30/2024 6:02 AM [facility] Hemoglobin 11.5(L) 13.7 - 16.5 g/dL 07/30/2024 6:02 AM [facility] Hematocrit 34.2(L) 40.5 - 48.5 % 07/30/2024 6:02 AM [facility] Mean Cell Volume 88.8 82.9 - 93.1 fL 07/30/2024 6:02 AM [facility] Mean Cell Hemoglobin 29.9 27.5 - 32.1 pg 07/30/2024 6:02 AM [facility] Mean Cell Hemoglobin Concentration 33.6 32.0 - 35.7 g/dL 07/30/2024 6:02 AM [facility] Platelet 342 145 - 357 x10(3)/mc L 07/30/2024 6:02 AM [facility] Mean Platelet Volume 9.0 7.6 - 12.9 fL 07/30/2024 6:02 AM [facility] RDW Standard Deviation 49.6(H) 36.0 - 45.0 fL 07/30/2024 6:02 AM [facility] RDW coefficient of variation 15.3(H) 11.4 - 13.8 % 07/30/2024 6:02 AM [facility] NRBC% auto 0.0 % 07/30/2024 6:02 AM [facility] NRBC Absolute <0.01 <0.01 x10(3)/mc L 07/30/2024 6:02 AM [facility] Neutrophil % 78.6 % 07/30/2024 6:02 AM [facility] Neutrophil Absolute (ANC) - Automated 8.87(H) 1.70 - 6.10 x10(3)/mc L 07/30/2024 6:02 AM [facility] Lymph % 8.9 % 07/30/2024 6:02 AM [facility] Lymph Absolute 1.01 0.90 - 3.20 x10(3)/mc L 07/30/2024 6:02 AM [facility] Monocyte % 8.9 % 07/30/2024 6:02 AM [facility] Monocyte Absolute 1.01(H) 0.30 - 0.90 x10(3)/mc L 07/30/2024 6:02 AM [facility] Eos % 2.7 % 07/30/2024 6:02 AM [facility] Eos Absolute 0.30 0.00 - 0.40 x10(3)/mc L 07/30/2024 6:02 AM [facility] Basophil % 0.5 % 07/30/2024 6:02 AM [facility] Baso Absolute 0.06 0.00 - 0.10 x10(3)/mc L 07/30/2024 6:02 AM EST [facility] Immature Gran % 0.4 % 6:02 AM EST [facility] Immature Gran Absolute 0.05(H) 0.00 - 0.04 x10(3)/mc L 07/30/2024 6:02 AM EST [facility] Blood VENOUS BLOOD SPECIMEN / Unknown Venipuncture / Unknown 07/30/2024 5:03 AM EST 07/30/2024 5:50 AM EST Umu Frye MD HEMATOLOGY ORDERAB LES [facility] [place] [address] * CT Chest Abdomen Pelvis w Contrast (Generic) (07/30/2024 2:50 AM EST) WORKSTATION ID [id number] DH RAD Anatomical Region Laterality Modality Abdomen, [...] who have questions please contact the health account executive healthcare that requested your imaging first. ? Electronically signed by: Demetrius Washington [facility] ([phone]), at 07/30/2024 7:42 AM Narrative 07/30/2024 7:42 [...] patients who have questions please contactthe health account executive healthcare that requested your imaging first. Electronically signed by: Demetrius Washington [facility]([phone]), at 07/30/2024 7:42 AM Umu Frye MD IMG CT ORDERABLES * EKG 12 Lead (07/29/2024 1:16 PM EST) Ventricular rate 79 BPM MUSE SYSTEM Atrial Rate 79 BPM MUSE SYSTEM P-R Interval 120 ms MUSE SYSTEM QRS Duration 92 ms MUSE SYSTEM Q-T Interval 400 ms MUSE SYSTEM QTC Calculated (Bezet) 458 ms MUSE SYSTEM Calculated P [place] 7 degrees MUSE SYSTEM Calculated R [place] 70 degrees MUSE SYSTEM Calculated T [place] 88 degrees MUSE SYSTEM INTERPRETATION Normal sinus [...] NOT exceed 2 mg total dose. At [facility] or [facility], [facility], call provider if naloxone administered. At [facility], If ineffective, call HERT team [phone]. At [facility], page rapid response team., Routine oxyCODONE [...] Provider: Marcia Chaney RN)2150 (Given - Provider: iGan Sung RN) 0214 (Given - Provider: Gian [...] 2007 (Given - Provider: Gian Sung RN) 947 [...] NOT exceed 2 mg total dose. At [facility] or [facility], [facility], call provider if naloxone administered. At [facility], If ineffective, call HERT team [phone]. At [facility], page rapid response team., Routine oxyCODONE [...] Routine documented in this encounter Care Teams Mail Carriers Supervisor Relationship Specialty Start Date End Date Cintia Jones, BUTADIENE CONVERTOR OPERATOR [place] [address] PCP - General Family Medicine 05/09/24 documented as of this encounter
--- OUTSIDE RECORDS SUMMARY | 2024-08-06 14:44 | XMS_ITS | Encounter Summary ---
Author Organization [facility] Address [facility] [place] [address] Care Team Providers Care Student Worker Name Role Phone Ness Diaz APRN Primary Care Provider Reason for Visit * Reason Comments Advice Only facial fractures Encounter Details Date Type Department Care Team (Late st Contact Info) Description 05/07/2020 3:00 PM EDT Office Visit Plastic Surgery at [facility] [place] [address] Krista Melissa MD [facility] [place] [address] Closed fracture of facial bone due to [...] Note Luna RuthD PCP: Ness Diaz APRN TRACK SUPERINTENDENT: No primary care provider on file. CC: [...] inside and his roommate took him to [facility] where CTH was negative and [...] file Gets together: Not on file Attends sikh service: Not on file Active member of [...] 100 mg by mouth nightly. ??? multivitamin Ynjm-Nr-NO-Min (THERAPEUTIC-M) 27-0.4 mg Tablet Take 1 tablet [...] Non-operative management. Follow up with [facility] or [facility] in 6 weeks for follow up evaluation or sooner PRN. 2. Scar management/sun precautions. Krista Melissa MD documented in this encounter Plan of Treatment Upcoming Encounters Date Type Department Care Team (Late st Contact Info) Description 08/07/2024 1:30 PM EST Clinical [place] [address] 08/07/2024 3:30 PM EST Scheduled [place] [address] documented as of this encounter Visit Diagnoses Diagnosis Closed fracture of facial bone due to fall, initial encounter documented in this encounter Care Teams Student Worker Relationship Specialty Start Date End Date Ness Diaz, DARIANA [address] [place] [address] PCP - General Family Medicine 05/07/20 05/08/24 documented as of this encounter
--- OUTSIDE RECORDS SUMMARY | 2024-08-06 14:44 | XMS_ITS | Encounter Summary ---
Author Organization [facility] Address [facility] [place] [address] Care Team Providers Care Tank Shop Supervisor Name Role Phone None Primary Care Provider Unavailabl e Encounter Details Date Type Department Care Team (Latest Contact Info) Description 06/14/2018 - 06/14/2018 12:04 AM EDT Hospital Encounter Radiology Library at [facility] [place] [address] Jose A Sargent MD [facility] [place] [address] Discharge Disposition: Home Social History Tobacco Use [...] by mouth Daily @ 0600. 01/23/2014 multivitamin Gybo-Jo-KH-Min (THERAPEUTIC-M) 27-0.4 mg Tablet Take 1 tablet [...] 1:30 PM EST [place] [address] 08/07/2024 3:30 PM EST [place]uled [place] [address] documented as of this encounter Procedures Procedure Name Priority Date/Time Associated Diagnosis Comments FILM LIBRARY STORAGE ONLY DX CHEST Routine 06/14/2018 12:00 AM EDT documented in this encounter Results * Film Library- Storage Only DX Chest (06/14/2018 12:00 AM EDT) Narrative [facility] - 06/14/2018 4:10 PM EDT This exam is for storage only and is auto-finalizing. Jose A Sargent MD IMG FILM LIBRARY ORD ERABLES [place], [place] documented in this encounter Visit Diagnoses Not on filedocumented in this encounter Care Teams Tank Shop Supervisor Relationship Specialty Start Date End Date None None PCP - General 08/09/10 07/22/18 documented as of this encounter
--- OUTSIDE RECORDS SUMMARY | 2024-08-06 14:44 | XMS_ITS | Encounter Summary ---
Author Organization [facility] Address [facility] [place] [address] Care Team Providers Care Reimbursement Representative Name Role Phone Tammy Farley MD Primary Care Provider [phone] Encounter Details Date Type Department Care Team (Late st Contact Info) Description 07/23/2018 1:00 PM EST Office [place] [address] Alisson Munoz, CLEANING HANDYMAN [facility] [place] [address] Splenic trauma, subsequent encounter Social History Tobacco [...] this encounter Progress Notes * Alisson Munoz, CLEANING HANDYMAN - 07/23/2018 1:00 PM EST Jimenez Marin [...] has been doing well. Jimenez lives at [facility] in [place], [place] it is an assisted living facility. [...] Clinical [place] [address] 08/07/2024 3:30 PM EST Scheduled [place] [address] documented as of this encounter Procedures Procedure Name Priority Date/Time Associated Diagnosis Comments HEMOGRAM STAT 07/23/2018 1:55 PM EST Splenic trauma, subsequent encounter documented in this encounter Results * (ABNORMAL) Hemogram (07/23/2018 1:55 PM EST) White Blood Cell 15.2(H) 4.0 - 9.5 x10(3)/mc L [facility] Red Blood Cell 5.20 4.58 - 5.54 x10(6)/mc L [facility] Hemoglobin 15.2 13.7 - 16.5 gm/dL [facility] Hematocrit 46.3 40.5 - 48.5 % [facility] Mean Cell Volume 89.0 82.9 - 93.1 fL [facility] Mean Cell Hemoglobin 29.2 27.5 - 32.1 pg [facility] Mean Cell Hemoglobin Concentration 32.8 32.0 - 35.7 gm/dL [facility] Platelet 368(H) 145 - 357 x10(3)/[facility] RDW Standard Deviation 48.2(H) 36.0 - 45.0 fL [facility] RDW coefficient of variation 14.7(H) 11.4 - 13.8 % [facility] Mean Platelet Volume 8.8 7.6 - 12.9 fL [facility] NRBC% auto 0.0 % [facility] NRBC Absolute 0.000 0.000 - 0.000 x10(3)/[facility] Blood specimen (specimen) 07/23/2018 1:55 PM EST 07/23/2018 2:05 PM EST Narrative Resulting Agency Comment Spec In Lab Alisson Munoz CLEANING HANDYMAN HEMATOLOGY ORDERAB LES [facility] [place] [address] documented in this encounter Visit Diagnoses Diagnosis Splenic trauma, subsequent encounter documented in this encounter Care Teams Reimbursement Representative Relationship Specialty Start Date End Date Tammy Farley MD [address] [place] [address] PCP - General Family Medicine 07/23/18 05/06/20 documented as of this encounter
--- OUTSIDE RECORDS SUMMARY | 2024-08-06 14:44 | XMS_ITS | Encounter Summary ---
Author Organization [facility] Address [facility] [place] [address] Care Team Providers Care Gauge And Weigh Machine Adjuster Name Role Phone None Primary Care Provider Unavailabl e Reason for Visit * Diagnostic Test (Routine) - Closed Specialty Diagnoses / Procedures Referred By Contac t Referred To Contact Radiology Diagnoses Laceration of spleen, initial encounter Procedures CT Abdomen & Pelvis wwo Contrast (Generic) CT Abdomen & Pelvis w Contrast Brent Souza MD [facility] [place] [address] [facility] [place] [address] Referral ID Status Reason Start Date Expiration Date V isits Requested Visits Authorized [id number] Closed Specialty Service Requested 06/21/2018 09/19/2018 1 1 Encounter Details Date Type Department Care Team (Latest Contact Info) Description 07/05/2018 8:59 AM EDT - 07/05/2018 11:59 PM EDT Hospital [place] [address] Db Oviedo MD [facility] [place] [address] Laceration of spleen, initial encounter Discharge Disposition: [...] Take 100 mg by mouth nightly. multivitamin Kkxm-Ls-[place]-Min (THERAPEUTIC-M) 27-0.4 mg Tablet Take 1 tablet [...] 1:30 PM EST Clinical [place] [address] 08/07/2024 3:30 PM EST Scheduled [place] [address] documented as of this encounter Procedures Procedure [...] mLs documented in this encounter Care Teams Gauge And Weigh Machine Adjuster Relationship Specialty Start Date End Date None None PCP - General 08/09/10 07/22/18 documented as of this encounter
--- OUTSIDE RECORDS SUMMARY | 2024-08-06 14:44 | XMS_ITS | Encounter Summary ---
Author Organization [facility] Address [facility] [place] [address] Care Team Providers Care Case Manager Specialist Name Role Phone None Primary Care Provider Unavailabl e Reason for Visit * Reason Comments Hospital Transfer Ruptured Spleen * Auth/Cert Specialty Diagnoses / Procedures Referred By Contabida t Referred To Contact Diagnoses Splenic laceration Procedures EMERGENCY IPI Referral ID Status Reason Start Date Expiration Date Visits Re quested Visits Authorized [id number] 1 1 Encounter Details Date Type Department Care Team (Latest Contact Info) Description 06/14/2018 5:53 PM EDT - 06/18/2018 3:19 PM EDT Hospital Encounter [address] [place] [address] Shahid Silver MD [facility] [address] [place] [address] Joshua Jasmine MD [address] [place] [address]-[place] [address] Laceration of spleen, initial encounter; Chest pain, [...] a daily ASA 81mg. He went to [facility] for evaluation where laboratory studies were remarkable for leukocytosis to 12 and a hemoglobin of 14. Coag studies were within normal limits. CT chest/abdomen/pelvis was remarkable for a splenic laceration and possible liver laceration. He was transferred to [facility] for further care. On arrival he washemodynamically [...] with a angioembolization which will be performed [facility] Course: 06/15/2018: No acute events overnight. [...] mouth daily. 10 mg Refills: 0 multivitamin Oxoz-Ta-PF-Min 27-0.4 mg Tab Commonly known as: THERAPEUTIC-M [...] mouth every 30 days. Generic drug: ergocalciferol 32560 Units Refills: 0 Disposition: Home Scheduled Appointments: The following appointments have been scheduled on your behalf: Future Appointments Date Time Provider Department Center 07/23/2018 1:00 PM Alisson Munoz APRN Leb Surg [facility] Outpatient Services/Studies: CT Abdomen & Pelvis w Contrast Standing Status: Future Standing Exp. Date: 01/15/19 Question Response Notes Where will study be performed? [facility] [120] Reason for exam and clinical [...] reach the office please call them at [phone]. Narcotics: You may be given a prescription [...] 1. You will have follow-up appointments at [facility] as indicated in the ???Future Appointments and [...] on the next business day. Please call [phone] if you do not hear from us by that time, as your timely follow-up is very important to us. Your care was managed by the Trauma and Acute Care Surgery Team at [facility]. If you have any questions or concerns, please feel free to contact us. Provider Contact Information: General Surgery: [facility] (after business hours): CC: Tammy Farley Primary Care Physician: None No future appointments. General Instructions None Your care was managed by the Trauma and Acute Care Surgery Team at [facility]. If you have any questions or concerns, please feel free to contact us. Provider Contact Information: General Surgery Clinic: Nurses line for questions: [facility] (after business hours): CC: Spontaneous splenic artery laceration diagnosis for which pt was admitted Alfonso Munoz, DARIANA Signed: Brent Souza MD Department of Surgery 06/18/2018 Acute Care Surgery Pager [phone] documented in this encounter Discharge Instructions * [...] reach the office please call them at [phone]. Narcotics: You may be given a prescription [...] 1. You will have follow-up appointments at [facility] as indicated in the ???Future Appointments and [...] on the next business day. Please call [phone] if you do not hear from us by that time, as your timely follow-up is very important to us. Your care was managed by the Trauma and Acute Care Surgery Team at [facility]. If you have any questions or concerns, please feel free to contact us. Provider Contact Information: General Surgery: [facility] (after business hours): CC: Tammy Farley Primary [...] Take 100 mg by mouth nightly. multivitamin Fdkw-Tv-DO-Min (THERAPEUTIC-M) 27-0.4 mg Tablet Take 1 tablet [...] necessary supplies. Pt d/c'd back to the [facility] wheelchair pushed by 2 [place] staff. * Mariaa Tirado MSW - 06/18/2018 1:41 PM EDT Discharge Planning: O: Requested by team to assist with discharge transportation. RCT [phone] will pick patient upat the [place] [facility] at 3pm. 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 P: Please have patient at the [place] [facility] at 3pm for sisal picker. No further social work interventions at [...] (IR) Brent Souza MD 06/18/18 Team Pager [phone] * Db Paz MD - 06/17/2018 1:31 PM EDT Trauma Service - Progress Note Patient Name: Jimenez Barkley : [id number] MR#: [id number] 06/14/2018 Hospital Day 3 days Problem List: [...] (IR) Brent Souza MD 06/17/18 Team Pager [phone] * JuliaEdgar - 06/16/2018 2:16 PM EDT Shelter Monitor Encounter Note Patient Name: Jimenez Barkley : [id number] MR#: [id number] Admit Date: 06/14/2018 5:53 PM Hospital Day 2 days Narrative: Visited to introduce and assess acceptance of Shelter Monitor services. Pt was awake, alert, oriented and in bed and welcoming to visit. Assessment: Patient coping positively with stresses of illness/hospitalization at this time. Pt says that he is hoping to get better and taking one day at time. Pt shared that his family is living inother states. Intervention and Outcome: Provided emotional, spiritual support and encouraging presence. 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 Address: [address] [place] [address] (home) Mobile: No relevant phone numbers on [...] needed for Pain. Yes PROVIDER, HISTORICAL multivitamin Jhft-Gw-HX-Min (THERAPEUTIC-M) 27-0.4 mg Tablet Take 1 tablet [...] Encounter Medication Sig Dispense Refill ??? multivitamin Hgjw-Bd-QX-Min (THERAPEUTIC-M) 27-0.4 mg Tablet Take 1 tablet [...] Jasmine MD - 06/14/2018 6:24 PM EDT [facility] Department of Surgery Admission History and [...] a daily ASA 81mg. He went to [facility] for evaluation where laboratory studies were remarkable for leukocytosis to 12 and a hemoglobinof 14. Coag studies were within normal limits. CT chest/abdomen/pelvis was remarkable for a spleniclaceration and possible liver laceration. He was transferred to [facility] for further care. On arrival he was hemodynamically normal and complaining of LUQ pain. PMH: COPD HTN HLD CAD PSH: Tonsillectomy HOME MEDICATIONS: No current facility-administered medications on file prior to encounter. Current Outpatient Prescriptions on File Prior to Encounter Medication Sig Dispense Refill ??? multivitamin Pdhi-Ns-WG-Min (THERAPEUTIC-M) 27-0.4 mg Tablet Take 1 tablet [...] -Dispo: ISCU status Juli Mejia MD Pager [phone] 06/14/2018 8:55 PM SURGICAL ATTENDING NOTE: Pt [...] and the C2 exchanged for an angled emt b 2 catheter. A6 mm Amplatzer plug was [...] PMH of tobacco use, HTN, history of MO, COPD with no reported PSH per patient [...] lesion PSYCH: appropriate behavior and speech Procedures [facility] and ED Course: Patient is transfer [...] d/c tomorrow 06/18/18 INDIVIDUALIZED FALL PREVENTION INTERVENTIONS: [place] Risk ? Patient-specific fall risk factors per [...] 30 Days: yes pt was transferred from [facility] on 06/13/18 Anticipated Length Of Stay (If known): Expected Length of Hospitalization: 3 Current Decision-Making Capacity: has capacity to make his own decisions. Advance Care Planning: none. Pt was not interested. Did review [place] surrogacy law with pt. Pt states the only family he has in his life is his elderly mother who lives in [place], [place]. Current Coping/Education/Information Needs: Pt anxious to be discharged out of the hospital. Current Functional Ability: Independent with mobility. Does not require assistance with ADL's. Functional Status Prior to Admission: Independent with mobility and ADL's. Home Environment: Pt lives at the [facility] in [place], [place] it is an assisted living facility. His apartment is on the first floor. Social & Family Supports/Community Resources: Pt states he only has his mother that he can count on Behavioral Health History: Pt being treated for mood disorder and is being followed by PCP at the [facility]. Substance Use/Abuse: smokes tobacco, drinks a few beers a week. Pt reports using cannabis for pain relief. Other Pertinent/Service Specific Information: Pt will need a Medicaid ride home. Pt [place] medicaid. Health/Prescription Coverage: Primary Insurance: [place]ICAID [place] Secondary Insurance: N/A Prescription Coverage: Medicaid [place] primary care plus Preferred Pharmacy: the [facility] Other: Primary Care Provider: none Patient/Caregiver Goals of Treatment: To return home Potential Needs for Transition of Care: Rehab/SNF: not indicated Home Health: not indicated DME: not indicated Dialysis: not indicated Community Resources: Transportation: [place] Other: Anticipated Barriers to Discharge/Special Considerations: none Assessment: Pt pleasant and cooperative during the interview. Pt is anxious to get home. Possible discharge 06/18/18 or 06/19. Plan: A member of the Care Management team will continue to monitor progress, follow for continuityof care and assist with transition of care planning. Andreia Arrington RN Pager: [phone] * Plan of Care - Latha Alatorre RN - 06/17/2018 5:36 AM EDT Problem: Patient Care Overview Goal: Plan of Care Review Outcome: Ongoing (Interventions Implemented as Appropriate) 06/15/18 0409 06/16/18 7520 Coping/Psychosocial Plan Of Care Reviewed With -- [...] PO intake ? INDIVIDUALIZED FALL PREVENTION INTERVENTIONS: [place] Risk ? Patient-specific fall risk factors per [...] were not included. Infiltration/Extravasation Scale Jimenez Barkley [id number] IS81/IS81-A Infiltration appearance: Left forearm, Infiltrate of [...] infiltration/extravasation Name of MD contacted paged at [phone]. 8:26 AM Team arrived at 0844 to see patient and recd page. Aware of Infiltrate and plan of care. Name of RN contacted NING French on unit and aware of infiltrate, removal and plan of care. 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 PATIENT WILL CONTINUE TO [...] 1:30 PM EST Clinical [place] [address] 08/07/2024 3:30 PM EST Scheduled [place] [id number] documented as of this encounter Procedures Procedure [...] Routine 06/16/2018 1:10 AM EDT CARDIAC ENZYMES ([facility]/CGP) STAT 06/16/2018 1:10 AM EDT CBC (WITH DIFF) Routine 06/16/2018 1:10 AM EDT CARDIAC ENZYMES ([facility]/CGP) STAT 06/15/2018 5:00 PM EDT CARDIAC ENZYMES ([facility]/CGP) STAT 06/15/2018 10:59 AM EDT EKG 12-LEAD STAT 06/15/2018 10:36 AM EDT Chest pain, unspecified type BASIC METABOLIC PANEL STAT 06/15/2018 7:21 AM EDT HEMOGRAM STAT 06/15/2018 1:56 AM EDT POCT GLUCOSE Routine 06/15/2018 12:26 AM EDT FOOD SERVICE ASSOCIATE SCAN 06/15/2018 12:00 AM EDT IR ARTERIAL [...] * (ABNORMAL) Hemogram (06/18/2018 6:05 AM EDT) [facility] White Blood Cell 13.9(H) 4.0 - 9.5 x10(3)/mc [facility] Red Blood Cell 2.77(L) 4.58 - 5.54 x10(6)/mc L [facility] Hemoglobin 8.6(L) 13.7 - 16.5 gm/dL [facility] Hematocrit 25.6(L) 40.5 - 48.5 % [facility] Mean Cell Volume 92.4 82.9 - 93.[address] [facility] Mean Cell Hemoglobin 31.0 27.5 - 32.[address] [facility] Mean Cell Hemoglobin Concentration 33.6 32.0 - 35.7 gm/dL [facility] Platelet 215 145 - 357 x10(3)/mc L [facility] RDW Standard Deviation 46.0(H) 36.0 - 45.[address] [facility] RDW coefficient of variation 13.5 11.4 - 13.8 % [facility] Mean Platelet Volume 9.6 7.6 - 12.[address] [facility] NRBC% auto 0.1 % [facility] NRBC Absolute 0.020(H) 0.000 - 0.000 x10(3)/mc L [facility] Blood specimen (specimen) 06/18/2018 6:05 AM EDT 06/18/2018 6:15 AM EDT Narrative Resulting Agency Comment Spec In Lab Joshua Jasmine MD HEMATOLOGY ORDERABLE S [facility] [place] [address] * (ABNORMAL) Basic Metabolic Panel (non-fasting) (06/18/2018 6:05 AM EDT) Glucose 125 65 - 199 mg/dL [facility] Comment:Diabetes: >=200 mg/d L plus symptoms Blood Urea Nitrogen 10 10 - 20 mg/dL [facility] Creatinine 0.76(L) 0.80 - 1.50 mg/dL [facility] Sodium 136 135 - 145 mmol/L [facility] Potassium 3.6 3.5 - 5.0 mmol/L [facility] Comment: Please note: ??Patients with WBC >100,000 may have falsely elevated Potassium levels. ??For accurate Potassium quantification in these patients send serum separator tube (gold top) for subsequent determinations. ??Contact the Clinical Chemistry Laboratory if there are any questions. Chloride 96(L) 98 - 107 mmol/L [facility] Carbon Dioxide 28 22 - 31 mmol/L [facility] Anion Gap 12 5 - 15 mmol/L [facility] Calcium 9.0 8.5 - 10.5 mg/dL [facility] Est Glomerular Filtration Rate 98 >=60 mL/min/1. 73 m?? [facility] Comment: The eGFR was calculated using the CKD-EPI equation. As with all creatinine based estimates of kidney function, eGFR values calculated with the CKD-EPI equation are not accurate in patients with acute kidney failure, extremes of body mass or the acutely ill. [email or web address] eGFR 113 >=60 mL/min/1. 73 m?? [facility] Comment: The eGFR was calculated using the CKD-EPI equation. As with all creatinine based estimates of kidney function, eGFR values calculated with the CKD-EPI equation are not accurate in patients with acute kidney failure, extremes of body mass or the acutely ill. [email or web address] Blood specimen (specimen) 06/18/2018 6:05 AM EDT 06/18/2018 6:15 AM EDT Narrative Resulting Agency Comment Spec In Lab Joshua Jasmine MD CHEMISTRY ORDERABLES [facility] [address] * (ABNORMAL) Differential, Automated (06/17/2018 1:28 AM EDT) Neutrophil % 74.2 % [facility] Neutrophil Absolute 13.79(H) 1.70 - 6.10 x10(3)/mc L [facility] Lymph % 11.0 % [facility] Lymphocytes Abs 2.0 0.9 - 3.2 x10(3)/[facility] Monocyte % 11.9 % [facility] Monocyte Abs 2.2(H) 0.3 - 0.9 x10(3)/[facility] Eos % 2.0 % [facility] Eosinophils Abs 0.4 0.0 - 0.4 x10(3)/[facility] Basophil % 0.3 % [facility] Baso Absolute 0.1 0.0 - 0.1 x10(3)/[facility] Immature Gran % 0.60 % [facility] Comment: Immature granulocytes(IG's)percentage and absolute count will include metamyelocytes, myelocytes, and promyelocytes. Blood smears from CBCs yielding IG's will be scanned manually for concordance. If this scan disagrees with the automated IG or if promyelocytes are noted, a manual differential will be performed. Immature Gran Absolute 0.11(H) 0.00 - 0.04 x10(3)/[facility] Blood specimen (specimen) 06/17/2018 1:28 AM EDT 06/17/2018 1:35 AM EDT Narrative Resulting Agency Comment Spec In Lab Danny Hawk MD HEMATOLOGY O RDERABLES [facility] [place] [address] * (ABNORMAL) Hemogram (06/17/2018 1:28 AM EDT) White Blood Cell 18.6(H) 4.0 - 9.5 x10(3)/[facility] Red Blood Cell 3.32(L) 4.58 - 5.54 x10(6)/[facility] Hemoglobin 10.4(L) 13.7 - 16.5 gm/dL [facility] Hematocrit 30.9(L) 40.5 - 48.5 % [facility] Mean Cell Volume 93.1 82.9 - 93.[address] [facility] Mean Cell Hemoglobin 31.3 27.5 - 32.[address] [facility] Mean Cell Hemoglobin Concentration 33.7 32.0 - 35.7 gm/dL [facility] Platelet 190 145 - 357 x10(3)/mc L [facility] RDW Standard Deviation 45.8(H) 36.0 - 45.[address] [facility] RDW coefficient of variation 13.4 11.4 - 13.8 % [facility] Mean Platelet Volume 9.7 7.6 - 12.9 [facility] NRBC% auto 0.0 % [facility] NRBC Absolute 0.000 0.000 - 0.000 x10(3)/mc L [facility] Blood specimen (specimen) 06/17/2018 1:28 AM EDT 06/17/2018 1:35 AM EDT Narrative Resulting Agency Comment Spec In Lab Danny Hawk MD HEMATOLOGY O RDERABLES [facility] [place] [address] * (ABNORMAL) Basic Metabolic Panel (non-fasting) (06/17/2018 1:28 AM EDT) Glucose 137 65 - 199 mg/dL [facility] Comment:Diabetes: >=200 mg/d L plus symptoms Blood Urea Nitrogen 11 10 - 20 mg/dL [facility] Creatinine 0.78(L) 0.80 - 1.50 mg/dL [facility] Sodium 134(L) 135 - 145 mmol/L [facility] Potassium 3.7 3.5 - 5.0 mmol/L [facility] Comment: Please note: ??Patients with WBC >100,000 may have falsely elevated Potassium levels. ??For accurate Potassium quantification in these patients send serum separator tube (gold top) for subsequent determinations. ??Contact the Clinical Chemistry Laboratory if there are any questions. Chloride 94(L) 98 - 107 mmol/L [facility] Carbon Dioxide 25 22 - 31 mmol/L [facility] Anion Gap 15 5 - 15 mmol/L [facility] Calcium 9.4 8.5 - 10.5 mg/dL [facility] Est Glomerular Filtration Rate 97 >=60 mL/min/1. 73 m?? [facility] Comment: The eGFR was calculated using the CKD-EPI equation. As with all creatinine based estimates of kidney function, eGFR values calculated with the CKD-EPI equation are not accurate in patients with acute kidney failure, extremes of body mass or the acutely ill. [email or web address] eGFR 112 >=60 mL/min/1. 73 m?? [facility] Comment: The eGFR was calculated using the CKD-EPI equation. As with all creatinine based estimates of kidney function, eGFR values calculated with the CKD-EPI equation are not accurate in patients with acute kidney failure, extremes of body mass or the acutely ill. [email or web address] Blood specimen (specimen) 06/17/2018 1:28 AM EDT 06/17/2018 1:34 AM EDT Narrative Resulting Agency Comment Spec In Lab Joshua Jasmine MD CHEMISTRY ORDERABLES [facility] [address] * Scan, Peripheral Blood (06/16/2018 1:10 AM EDT) Plat estimate Normal [facility] RBC Morphology Normal [facility] Blood specimen (specimen) 06/16/2018 1:10 AM EDT 06/16/2018 1:17 AM EDT Narrative Resulting Agency Comment Spec In Lab Danny Hawk MD HEMATOLOGY O RDERABLES Performing Organization Address City/[facility]/ZIP Co de Phone Number [facility] [place] [address] * (ABNORMAL) Differential, Automated (06/16/2018 1:10 AM EDT) Neutrophil % 80.2 % [facility] Neutrophil Absolute 14.73(H) 1.70 - 6.10 x10(3)/ L [facility] Lymph % 7.7 % [facility] Lymphocytes Abs 1.4 0.9 - 3.2 x10(3)/[facility] Monocyte % 10.1 % [facility] Monocyte Abs 1.8(H) 0.3 - 0.9 x10(3)/[facility] Eos % 1.3 % [facility] Eosinophils Abs 0.2 0.0 - 0.4 x10(3)/[facility] Basophil % 0.2 % [facility] Baso Absolute 0.0 0.0 - 0.1 x10(3)/[facility] Immature Gran % 0.50 % [facility] Comment: Immature granulocytes(IG's)percentage and absolute count will include metamyelocytes, myelocytes, and promyelocytes. Blood smears from CBCs yielding IG's will be scanned manually for concordance. If this scan disagrees with the automated IG or if promyelocytes are noted, a manual differential will be performed. Immature Gran Absolute 0.10(H) 0.00 - 0.04 x10(3)/ L [facility] Blood specimen (specimen) 06/16/2018 1:10 AM EDT 06/16/2018 1:17 AM EDT Narrative Resulting Agency Comment Spec In Lab Danny Hawk MD HEMATOLOGY O RDERABLES Performing Organization Address City/[facility]/ZIP Co de Phone Number [facility] [place] [address] * (ABNORMAL) Hemogram (06/16/2018 1:10 AM EDT) White Blood Cell 18.4(H) 4.0 - 9.5 x10(3)/mc L [facility] Red Blood Cell 3.22(L) 4.58 - 5.54 x10(6)/ L [facility] Hemoglobin 10.0(L) 13.7 - 16.5 gm/dL [facility] Hematocrit 29.7(L) 40.5 - 48.5 % [facility] Mean Cell Volume 92.2 82.9 - 93.[address] [facility] Mean Cell Hemoglobin 31.1 27.5 - 32.[address] [facility] Mean Cell Hemoglobin Concentration 33.7 32.0 - 35.7 gm/dL [facility] Platelet 198 145 - 357 x10(3)/ L [facility] RDW Standard Deviation 46.3(H) 36.0 - 45.[address] [facility] RDW coefficient of variation 13.6 11.4 - 13.8 % [facility] Mean Platelet Volume 9.9 7.6 - 12.[address] [facility] NRBC% auto 0.0 % [facility] NRBC Absolute 0.000 0.000 - 0.000 x10(3)/ L [facility] Blood specimen (specimen) 06/16/2018 1:10 AM EDT 06/16/2018 1:17 AM EDT Narrative Resulting Agency Comment Spec In Lab Danny Hawk MD HEMATOLOGY O RDERABLES [facility] [place] [address] * Cardiac Enzymes (LEB/CGP) (06/16/2018 1:10 AM EDT) [facility] Troponin-T <0.01 0.00 - 0.00 ng/mL [facility] Comment: The 99th percentile for Troponin T is less than 0.01 ng/mL, any detectable cTnT concentration using this assay should be considered elevated. According to the third universal definition of myocardial infarction the following criteria with a clinical presentation consistent with acute myocardial ischemia meets the diagnosis for a myocardial infarction (MO). Detection of a rise and/or fall of cTnT, with at least one value greater than the 99th percentile (> or = 0.01) and with at least one of the following ?? Symptoms of ischemia ?? New or presumed new significant WB-[id number]-O wave (ST-T) changes or new left bundle [...] additional sample may be indicated. Reference: Third [place] Definition of Myocardial Infarction. Journal of the [place] [employer] 2012;60:1581-98 Creatine Kinase 50 0 - 200 unit/L [facility] Blood specimen (specimen) 06/16/2018 1:10 AM EDT 06/16/2018 1:17 AM EDT Narrative Resulting Agency Comment Spec In Lab Joshua Jasmine MD CHEMISTRY ORDERABLES [facility] [place] [id number] * Cardiac Enzymes (LEB/CGP) (06/15/2018 5:00 PM EDT) [facility] Troponin-T <0.01 0.00 - 0.00 ng/mL [facility] Comment: The 99th percentile for Troponin T is less than 0.01 ng/mL, any detectable cTnT concentration using this assay should be considered elevated. According to the third universal definition of myocardial infarction the following criteria with a clinical presentation consistent with acute myocardial ischemia meets the diagnosis for a myocardial infarction (MO). Detection of a rise and/or fall of cTnT, with at least one value greater than the 99th percentile (> or = 0.01) and with at least one of the following ?? Symptoms of ischemia ?? New or presumed new significant FI-nfvphxb-O wave (ST-T) changes or new left bundle [...] additional sample may be indicated. Reference: Third [place] Definition of Myocardial Infarction. Journal of the [place] [employer] 2012;60:1581-98 Creatine Kinase 51 0 - 200 unit/L [facility] Blood specimen (specimen) 06/15/2018 5:00 PM EDT 06/15/2018 5:05 PM EDT Narrative Resulting Agency Comment Spec In Lab Joshua Jasmine MD CHEMISTRY ORDERABLES [facility] [place] [place] [address] * Cardiac Enzymes (LEB/CGP) (06/15/2018 10:59 AM EDT) Troponin-T <0.01 0.00 - 0.00 ng/mL [facility] Comment: The 99th percentile for Troponin T is less than 0.01 ng/mL, any detectable cTnT concentration using this assay should be considered elevated. According to the third universal definition of myocardial infarction the following criteria with a clinical presentation consistent with acute myocardial ischemia meets the diagnosis for a myocardial infarction (MO). Detection of a rise and/or fall of cTnT, with at least one value greater than the 99th percentile (> or = 0.01) and with at least one of the following ?? Symptoms of ischemia ?? New or presumed new significant WD-stiegwf-W wave (ST-T) changes or new left bundle [...] additional sample may be indicated. Reference: Third [place] Definition of Myocardial Infarction. Journal of the [place] [employer] 2012;60:1581-98 Creatine Kinase 69 0 - 200 unit/L [facility] Blood specimen (specimen) 06/15/2018 10:59 AM EDT 06/15/2018 11:05 AM EDT Narrative Resulting Agency Comment Spec In Lab Joshua Jasmine MD CHEMISTRY ORDERABLES Performing Organization Address [facility] Co de Phone Number [facility] [place] [address] * EKG 12 Lead (06/15/2018 10:36 AM EDT) Ventricular rate 84 BPM MUSE SYSTEM Atrial Rate 84 BPM MUSE SYSTEM P-R Interval 120 ms MUSE SYSTEM QRS Duration 86 ms MUSE SYSTEM Q-T Interval 358 ms MUSE SYSTEM QTC Calculated (Bezet) 423 ms MUSE SYSTEM Calculated P Castleton 21 degrees MUSE SYSTEM Calculated R [place] 61 degrees MUSE SYSTEM Calculated T [place] 74 degrees MUSE SYSTEM INTERPRETATION Normal sinus rhythm Normal ECG When compared with ECG of 14-JUN-2018 18:41, No significant change was found Confirmed by MD TERESA, RADHA ([id number]) on 06/15/2018 12:42:42 PM MUSE SYSTEM 06/15/2018 10:3 6 AM EDT 06/15/2018 12:42 PM EDT Joshua Jasmine MD ECG ORDERABLES Performing Organization Address [facility] Co de Phone Number MUSE SYSTEM * (ABNORMAL) Basic Metabolic Panel (non-fasting) (06/15/2018 7:21 AM EDT) Glucose 137 65 - 199 mg/dL [facility] Comment:Diabetes: >=200 mg/d L plus symptoms Blood Urea Nitrogen 24(H) 10 - 20 mg/dL [facility] Creatinine 0.82 0.80 - 1.50 mg/dL [facility] Sodium 137 135 - 145 mmol/L [facility] Potassium 4.4 3.5 - 5.0 mmol/L [facility] Comment: Please note: ??Patients with WBC >100,000 may have falsely elevated Potassium levels. ??For accurate Potassium quantification in these patients send serum separator tube (gold top) for subsequent determinations. ??Contact the Clinical Chemistry Laboratory if there are any questions. Chloride 100 98 - 107 mmol/L [facility] Carbon Dioxide 25 22 - 31 mmol/L [facility] Anion Gap 12 5 - 15 mmol/L [facility] Calcium 8.7 8.5 - 10.5 mg/dL [facility] Est Glomerular Filtration Rate 95 >=60 mL/min/1. 73 m?? [facility] Comment: The eGFR was calculated using the CKD-EPI equation. As with all creatinine based estimates of kidney function, eGFR values calculated with the CKD-EPI equation are not accurate in patients with acute kidney failure, extremes of body mass or the acutely ill. [email or web address] eGFR 110 >=60 mL/min/1. 73 m?? [facility] Comment: The eGFR was calculated using the CKD-EPI equation. As with all creatinine based estimates of kidney function, eGFR values calculated with the CKD-EPI equation are not accurate in patients with acute kidney failure, extremes of body mass or the acutely ill. [email or web address] Blood specimen (specimen) 06/15/2018 7:21 AM EDT 06/15/2018 7:24 AM EDT Narrative Resulting Agency Comment Spec In Lab Joshua Jasmine MD CHEMISTRY ORDERABLES [facility] [place] [address] * (ABNORMAL) Hemogram (06/15/2018 1:56 AM EDT) White Blood Cell 15.4(H) 4.0 - 9.5 x10(3)/[facility] LABORATORY Red Blood Cell 3.81(L) 4.58 - 5.54 x10(6)/mc L [facility] Hemoglobin 11.6(L) 13.7 - 16.5 gm/dL [facility] Hematocrit 35.4(L) 40.5 - 48.5 % [facility] Mean Cell Volume 92.9 82.9 - 93.[address] [facility] Mean Cell Hemoglobin 30.4 27.5 - 32.[address] [facility] Mean Cell Hemoglobin Concentration 32.8 32.0 - 35.7 gm/dL [facility] Platelet 215 145 - 357 x10(3)/[facility] LABORATORY RDW Standard Deviation 47.7(H) 36.0 - 45.0 [facility]ORATORY RDW coefficient of variation 14.0(H) 11.4 - 13.8 % [facility] Mean Platelet Volume 9.5 7.6 - 12.9 [facility] LABORATORY NRBC% auto 0.0 % [facility] NRBC Absolute 0.000 0.000 - 0.000 x10(3)/[facility] Blood specimen (specimen) 06/15/2018 1:56 AM EDT 06/15/2018 2:03 AM EDT Narrative Resulting Agency Comment Spec In Lab Shahid Silver MD HEMATOLOGY ORDERABL ES [facility] [place] [address] * POCT Glucose (06/15/2018 12:26 AM EDT) Glucose, POC 134 65 - 199 mg/dL [facility] Comment: Supplemental ranges: <140 mg/dL before meals <180 mg/dL all other times of the day Blood specimen (specimen) 06/15/2018 12:26 AM EDT 06/15/2018 12:26 AM EDT Joshua Jasmine MD POINT OF CARE TEST O RDERABLES [facility] [place] [address] * SCAN DOC: FOOD SERVICE ASSOCIATE (06/15/2018 12:00 AM EDT) Anatomical Region Laterality [...] and the C2 exchanged for an angled emt b 2 catheter. ??A 6 mm Amplatzer plug [...] PM EDT) ABORH Recheck Order Order Placed [facility] ABORH Type Recheck Complete [facility] Blood specimen (specimen) 06/14/2018 6:45 PM EDT 06/14/2018 6:55 PM EDT Narrative Resulting Agency Comment Spec In Lab Kenn Loving MD BLOOD BANK LAB ORDER MEAGAN [facility] [place] [address] * (ABNORMAL) Differential, Automated (06/14/2018 6:45 PM EDT) Neutrophil % 78.6 % [facility] Neutrophil Absolute 13.76(H) 1.70 - 6.10 x10(3)/mc L [facility] Lymph % 10.9 % [facility] Lymphocytes Abs 1.9 0.9 - 3.2 x10(3)/mc L [facility] Monocyte % 7.4 % [facility] Monocyte Abs 1.3(H) 0.3 - 0.9 x10(3)/mc L [facility] Eos % 1.8 % [facility] Eosinophils Abs 0.3 0.0 - 0.4 x10(3)/mc L [facility] Basophil % 0.6 % [facility] Baso Absolute 0.1 0.0 - 0.1 x10(3)/[facility]OR[facility] Immature Gran % 0.70 % [facility] Comment: Immature granulocytes(IG's)percentage and absolute count will include metamyelocytes, myelocytes, and promyelocytes. Blood smears from CBCs yielding IG's will be scanned manually for concordance. If this scan disagrees with the automated IG or if promyelocytes are noted, a manual differential will be performed. Immature Gran Absolute 0.13(H) 0.00 - 0.04 x10(3)/[facility] Blood specimen (specimen) 06/14/2018 6:45 PM EDT 06/14/2018 7:09 PM EDT Narrative Resulting Agency Comment Spec In Lab Kenn Loving MD HEMATOLOGY ORDERABLE S Performing Organization Address City/State/[facility] Co de Phone Number [facility] [place] [address] * (ABNORMAL) Hemogram (06/14/2018 6:45 PM EDT) White Blood Cell 17.5(H) 4.0 - 9.5 x10(3)/[facility] Red Blood Cell 4.17(L) 4.58 - 5.54 x10(6)/[facility] Hemoglobin 12.8(L) 13.7 - 16.5 gm/dL [facility] Hematocrit 38.3(L) 40.5 - 48.5 % [facility] Mean Cell Volume 91.8 82.9 - 93.[address] [facility] Mean Cell Hemoglobin 30.7 27.5 - 32.[address] [facility] Mean Cell Hemoglobin Concentration 33.4 32.0 - 35.7 gm/dL [facility] Platelet 221 145 - 357 x10(3)/[facility]ATORY RDW Standard Deviation 47.5(H) 36.0 - 45.[address] [facility] RDW coefficient of variation 13.9(H) 11.4 - 13.8 % [facility] Mean Platelet Volume 9.2 7.6 - 12.[address] [facility] NRBC% auto 0.0 % [facility] NRBC Absolute 0.000 0.000 - 0.000 x10(3)/mc L [facility] Blood specimen (specimen) 06/14/2018 6:45 PM EDT 06/14/2018 7:09 PM EDT Narrative Resulting Agency Comment Spec In Lab Kenn Loving MD HEMATOLOGY ORDERABLE S Performing Organization Address City/[facility]/ZIP Co de Phone Number [facility] [place] [address] * Antibody screen (06/14/2018 6:45 PM EDT) Ab Screen Interp Negative [facility] Expires at [id number] on: 06/17/2018 [facility] Blood specimen (specimen) 06/14/2018 6:45 PM EDT 06/14/2018 6:55 PM EDT Narrative Resulting Agency Comment Spec In Lab Kenn Loving MD BLOOD BANK LAB ORDER MEAGAN Performing Organization Address City/[facility]/ZIP Co de Phone Number [facility] [place] [address] * ABO/Rh Typing (06/14/2018 6:45 PM EDT) ABORH Type A Pos [facility] Blood specimen (specimen) 06/14/2018 6:45 PM EDT 06/14/2018 6:55 PM EDT Narrative Resulting Agency Comment Spec In Lab Kenn Loving MD BLOOD BANK LAB ORDER MEAGAN [facility] [place] [address] * (ABNORMAL) APTT (06/14/2018 6:45 PM EDT) Partial Thromboplastin Time <20(L) 25 - [address] [facility] Comment: Decreased clotting times may [...] MD HEMATOLOGY ORDERABL ES Performing Organization Address [facility] Co de Phone Number [facility] [place] [address] * Prothrombin Time (06/14/2018 6:45 PM EDT) Pathologist [facility] Prothrombin Time 10.8 9.4 - 12.[address] [facility] International Normalization Ratio 1.0 [facility] Comment: An INR <2.0 indicates [...] MD HEMATOLOGY ORDERABL ES Performing Organization Address [facility] Co de Phone Number [facility] [place] [address] * Basic Metabolic Panel (non-fasting) (06/14/2018 6:45 PM EDT) Glucose 121 65 - 199 mg/dL [facility] Comment:Diabetes: >=200 mg/d L plus symptoms Blood Urea Nitrogen 19 10 - 20 mg/dL [facility] Creatinine 0.87 0.80 - 1.50 mg/dL [facility] Sodium 137 135 - 145 mmol/L [facility] Potassium 4.6 3.5 - 5.0 mmol/L [facility] Comment: Please note: ??Patients with WBC >100,000 may have falsely elevated Potassium levels. ??For accurate Potassium quantification in these patients send serum separator tube (gold top) for subsequent determinations. ??Contact the Clinical Chemistry Laboratory if there are any questions. Chloride 100 98 - 107 mmol/L [facility] Carbon Dioxide 24 22 - 31 mmol/L [facility] Anion Gap 13 5 - 15 mmol/L [facility] Calcium 8.6 8.5 - 10.5 mg/dL [facility] Est Glomerular Filtration Rate 92 >=60 mL/min/1. 73 m?? [facility] Comment: The eGFR was calculated using the CKD-EPI equation. As with all creatinine based estimates of kidney function, eGFR values calculated with the CKD-EPI equation are not accurate in patients with acute kidney failure, extremes of body mass or the acutely ill. [email or web address] eGFR 107 >=60 mL/min/1. 73 m?? [facility] Comment: The eGFR was calculated using the CKD-EPI equation. As with all creatinine based estimates of kidney function, eGFR values calculated with the CKD-EPI equation are not accurate in patients with acute kidney failure, extremes of body mass or the acutely ill. [email or web address] Blood specimen (specimen) 06/14/2018 6:45 PM EDT 06/14/2018 7:09 PM EDT Narrative Resulting Agency Comment Spec In Lab Shahid Silver MD CHEMISTRY ORDERABLE S [facility] [place] [address] * EKG 12 Lead (06/14/2018 6:41 PM EDT) Ventricular rate 92 BPM MUSE SYSTEM Atrial Rate 92 BPM MUSE SYSTEM P-R Interval 114 ms MUSE SYSTEM QRS Duration 86 ms MUSE SYSTEM Q-T Interval 358 ms MUSE SYSTEM QTC Calculated (Bezet) 442 ms MUSE SYSTEM Calculated P [place] -14 degrees MUSE SYSTEM Calculated R [place] 56 degrees MUSE SYSTEM Calculated T [place] 68 degrees MUSE SYSTEM INTERPRETATION Normal sinus rhythm Normal ECG No previous ECGs available Confirmed by MD TERESA, RADHA ([id number]) on 06/15/2018 12:42:34 PM MUSE SYSTEM 06/14/2018 [...] Constipation, Routine 1528 (Given - Provider: Griffin Praasd, NNIG) cyclobenzaprine (FLEXERIL) tablet 5 mg 5 mg, [...] Routine documented in this encounter Care Teams Case Manager Specialist Relationship Specialty Start Date End Date None None PCP - General 08/09/10 07/22/18 documented as of this encounter
--- OUTSIDE RECORDS SUMMARY | 2024-08-06 14:44 | XMS_ITS | Encounter Summary ---
Author Organization [facility] Address [facility] [place] [address] Care Team Providers Care Applied Mathematician Name Role Phone Ness Diaz APRN Primary Care Provider Encounter Details Date Type Department Care Team (Late st Contact Info) Description 04/17/2024 11:45 AM EDT Ancillary Procedure Radiology Library at [facility] [place] [address] Bethany Jeffers MD [facility] [place] [address] Social History Tobacco Use Types Packs/Day Years [...] 1:30 PM EST Clinical [place] [address] 08/07/2024 3:30 PM EST Scheduled [place] [address] documented as of this encounter Procedures Procedure [...] FILM LIBRAR Y ORDERABLES Performing Organization Address City/State/[facility] Co de Phone Number [place], [place] documented in this encounter Visit Diagnoses Not on filedocumented in this encounter Care Teams Applied Mathematician Relationship Specialty Start Date End Date Ness Diaz, CHAUFFEUR [address] [facility] [place] [address] PCP - General Family Medicine 05/07/20 05/08/24 documented as of this encounter
--- OUTSIDE RECORDS SUMMARY | 2024-08-06 14:44 | XMS_ITS | Encounter Summary ---
Author Organization [facility] Address [facility] [place] [address] Care Team Providers Care Pump House Technician Name Role Phone None Primary Care Provider Unavailabl e Encounter Details Date Type Department Care Team (Latest Contact Info) Description 06/14/2018 12:05 AM EDT - 06/14/2018 5:52 PM EDT Hospital Encounter Radiology Library at [facility] [place] [address] Jose A Sargent MD [facility] [place] [address] Discharge Disposition: Home Social History Tobacco Use [...] by mouth Daily @ 0600. 01/23/2014 multivitamin Ziuk-Bn-RF-Min (THERAPEUTIC-M) 27-0.4 mg Tablet Take 1 tablet [...] 1:30 PM EST [place] [address] 08/07/2024 3:30 PM EST [place]uled [place] [address] documented as of this encounter Procedures Procedure Name Priority Date/Time Associated Diagnosis Comments FILM LIBRARY STORAGE ONLY CT CHEST ABDOMEN PELVIS Routine 06/14/2018 12:05 AM EDT documented in this encounter Results * Film Library- Storage Only CT Chest Abdomen Pelvis (06/14/2018 12:05 AM EDT) Narrative [facility] - 06/14/2018 4:15 PM EDT This exam is for storage only and is auto-finalizing. Jose A Sargent MD [facility] FILM LIBRARY ORD ERABLES [place], [place] documented in this encounter Visit Diagnoses Not on filedocumented in this encounter Care Teams Pump House Technician Relationship Specialty Start Date End Date None None PCP - General 08/09/10 07/22/18 documented as of this encounter
--- OUTSIDE RECORDS SUMMARY | 2024-08-06 14:44 | XMS_ITS | Encounter Summary ---
Author Organization [facility] Address [facility] [place] [address] Care Team Providers Care Scientific Database Curator Name Role Phone Cintia Jones APRN Primary Care Provider [phone] Reason for Visit * Consultation (Urgent) - Authorized Specialty Diagnoses / Procedures Referred By Christin connelly Referred To Contact Urology Diagnoses Dysuria Hematuria, unspecified type Hydronephrosis, unspecified hydronephrosis type Cintia Jones APRN [address] [place] [address] [facility] [place] [address] Referral ID Status Reason Start Date Expiration Date Visits Requested Visits Authorized [id number] Authorized Consult, Test & Treat PCP Updated and/or Approved 04/23/2024 04/23/2025 6 6 Encounter Details Date Type Department Care Team (Late st Contact Info) Description 06/02/2024 2:20 PM EDT [place] [phone] Louie Salazar MD [facility] [place] [address] Bladder mass Social History Tobacco Use Types [...] 06/14/2018 Pain in right shoulder 02/24/2016 COPD, [place] (2 stents) No past surgical history on [...] General Health: GENERAL: He has lost 40lbs. CHLORINE OPERATOR: Denies loss of consciousness, denies balance [...] 1:30 PM EST [place] [address] 08/07/2024 3:30 PM EST Scheduled [place] [address] documented as of this encounter Visit Diagnoses Diagnosis Bladder mass Other specified disorders of bladder documented in this encounter Care Teams Scientific Database Curator Relationship Specialty Start Date End Date Cintia Jones, FEATHER SAWYER [address] [place] [address] PCP - General Family Medicine 05/09/24 documented as of this encounter
--- OUTSIDE RECORDS SUMMARY | 2024-08-06 14:44 | XMS_ITS | Encounter Summary ---
Author Organization [facility] Address [facility] [place] [address] Care Team Providers Care Drafter Engineering Name Role Phone None Primary Care Provider Unavailabl e Reason for Visit * Reason Onset Date Comments Results 03/28/2016 Encounter Details Date Type Department Care Team (Late st Contact Info) Description 03/28/2016 Tele[place] [phone] Braydon Carrillo MD [facility] DR [place] [address] Results Social History Tobacco Use Types Packs/Day [...] Best number to reach the patient # [phone], requesting to fax results as well # [phone] attn howie Sung will forward your message to the team and someone will follow up with you within 48 hours. documented in this encounter Plan of Treatment Upcoming Encounters Date Type Department Care Team (Late st Contact Info) Description 08/07/2024 1:30 PM EST Clinical [place] [address] 08/07/2024 3:30 PM EST [place]uled [place] [address] documented as of this encounter Visit Diagnoses Not on filedocumented in this encounter Care Teams Drafter Engineering Relationship Specialty Start Date End Date None None PCP - General 08/09/10 07/22/18 documented as of this encounter
--- OUTSIDE RECORDS SUMMARY | 2024-08-06 14:44 | XMS_ITS | Encounter Summary ---
Author Organization [facility] [place] [address] Care Team Providers Care Sales Warehouse Driver Name Role Phone Ness Diaz DARIANA Primary Care Provider Reason for Visit * Diagnostic Test (Routine) - Closed Specialty Diagnoses / Procedures Referred By Christin connelly Referred To Contact Radiology Diagnoses Pleural nodule Procedures NM PET CT Skull Base to Mid-thigh Mabel Gurrola PA [address] [place] [address] [place] [address] Referral ID Status Reason Start Date Expiration Date V isits Requested Visits Authorized [id number] Closed Specialty Service Requested 10/23/2022 04/22/2024 1 1 Encounter Details Date Type Department Care Team (Latest Contact Info) Description 11/13/2022 2:28 PM EST - 11/13/2022 11:59 PM [facility] Hospital Encounter [place] [address] Mabel Gurrola PA [address] [place], [place] [id number] Discharge Disposition: Home Social History Tobacco Use [...] mouth daily. fluticasone propionate (FLONASE) 50 mcg/actuation [place], Suspension 1 spray daily. lisinopril (PRINIVIL;ZESTRIL) 10 mg Tablet Take 10 mg by mouth daily. aspirin 81 mg Tablet, Delayed Release (E.C.) Take 81 mg by mouth daily. omeprazole (PRILOSEC) 20 mg Capsule, Delayed Release(E.C.) Take 20 mg by mouth daily. traZODone (DESYREL) 100 mg Tablet Take 100 mg by mouth nightly. multivitamin Ncll-Fm-YK-Min (THERAPEUTIC-M) 27-0.4 mg Tablet Take 1 tablet [...] 1:30 PM EST [place] [phone] 08/07/2024 3:30 PM EST [place]uled [place] [address] documented as of this encounter Procedures Procedure Name Priority Date/Time Associated Diagnosis Comments NM PET CT SKULL BASE TO MID-THIGH ([facility]) Routine 11/13/2022 4:00 PM EST Pleural nodule POCT GLUCOSE Routine 11/13/2022 2:33 PM EST documented in this encounter Results * POCT Glucose (11/13/2022 2:33 PM EST) Glucose, POC 105 65 - 199 mg/dL [facility] Comment: Supplemental ranges: <140 mg/dL before meals <180 mg/dL all other times of the day Blood 11/13/2022 2:33 PM EST 11/13/2022 2:33 PM EST Mabel ORTIZ POINT OF CARE TE ORDERABLES Performing Organization Address City/State/[facility] Co de Phone Number [facility] [place] [address] documented in this encounter Visit Diagnoses Not on filedocumented in this encounter Care Teams Sales Warehouse Driver Relationship Specialty Start Date End Date Ness Diaz, DARIANA [address] [place] [address] PCP - General Family Medicine 05/07/20 05/08/24 documented as of this encounter
--- OUTSIDE RECORDS SUMMARY | 2024-08-06 14:44 | XMS_ITS | Encounter Summary ---
Author Organization [facility] Address [facility] [place] [address] Care Team Providers Care Chief Deputy Name Role Phone Tammy Farley MD Primary Care Provider [phone] Encounter Details Date Type Department Care Team (Late st Contact Info) Description 04/29/2020 10:55 PM EDT Ancillary Procedure Radiology Library at [facility] [place] [address] Luca Teixeira MD [facility] [place] [address] Social History Tobacco Use Types Packs/Day Years [...] 1:30 PM EST Clinical [place] [address] 08/07/2024 3:30 PM EST [place]uled [place] [phone] documented as of this encounter Procedures Procedure [...] MD IMG FILM LIBRARY ORD ERABLES [place], [place] documented in this encounter Visit Diagnoses Not on filedocumented in this encounter Care Teams Chief Deputy Relationship Specialty Start Date End Date Tammy Farley MD [address] [place] [address] PCP - General Family Medicine 07/23/18 05/06/20 documented as of this encounter
--- OUTSIDE RECORDS SUMMARY | 2024-08-06 14:44 | XMS_ITS | Encounter Summary ---
Author Organization [facility] Address [facility] [place] [address] Care Team Providers Care Nurse Care Manager Name Role Phone Ness Diaz APRN Primary [...] 1:30 PM EST Clinical [place] [address] 08/07/2024 3:30 PM EST Scheduled [place] [address] documented as of this encounter Visit Diagnoses Not on filedocumented in this encounter Care Teams Nurse Care Manager Relationship Specialty Start Date End Date Ness Diaz APRN [address] [place] [address] PCP - General Family Medicine 05/07/20 05/08/24 documented as of this encounter
--- OUTSIDE RECORDS SUMMARY | 2024-08-06 14:45 | XMS_ITS | Encounter Summary ---
Author Organization [facility] Address [facility] [place] [address] Care Team Providers Care Forestry Worker Name Role Phone None Primary Care Provider Unavailabl e Encounter Details Date Type Department Care Team (Late st Contact Info) Description 03/03/2016 Orders [place] [phone] [facility] [place] [address] Social History Tobacco Use Types Packs/Day Years [...] 1:30 PM EST Clinical [place] [phone] 08/07/2024 3:30 PM EST Scheduled [place] [phone] documented as of this encounter Visit Diagnoses Not on filedocumented in this encounter Care Teams Forestry Worker Relationship Specialty Start Date End Date None None PCP - General 08/09/10 07/22/18 documented as of this encounter
--- OUTSIDE RECORDS SUMMARY | 2024-08-06 14:45 | XMS_ITS | Encounter Summary ---
Author Organization [facility] Address [facility] [place] [address] Care Team Providers Care Boom Truck Driver Name Role Phone None Primary Care Provider Unavailabl e Encounter Details Date Type Department Care Team (Late st Contact Info) Description 02/09/2016 - 02/09/2016 11:59 PM EDT Hospital Encounter Radiology Library at [facility] [place] [address] Tammy Farley MD [address] [place], [place] [address] Pain Discharge Disposition: Home Social History Tobacco [...] 1:30 PM EST [place] [address] 08/07/2024 3:30 PM EST [place]uled [place] [address] documented as of this encounter Procedures Procedure [...] Farley MD IMG FILM LIBRARY ORD ERABLES [place], [place] documented in this encounter Visit Diagnoses Diagnosis Pain Generalized pain documented in this encounter Care Teams Boom Truck Driver Relationship Specialty Start Date End Date None None PCP - General 08/09/10 07/22/18 documented as of this encounter
--- OUTSIDE RECORDS SUMMARY | 2024-08-06 14:45 | XMS_ITS | Encounter Summary ---
Author Organization [facility] Address [facility] [place] [address] Care Team Providers Care Sand Mill Operator Facing Sand Name Role Phone None Primary Care Provider Unavailabl e Encounter Details Date Type Department Care Team (Late st Contact Info) Description 01/12/2016 - 01/12/2016 11:59 PM EDT Hospital Encounter Radiology Library at [facility] [place] [address] Tammy Farley MD [address] [place], [place] [address] Pain Discharge Disposition: Home Social History Tobacco [...] 1:30 PM EST Clinical [place] [address] 08/07/2024 3:30 PM EST Scheduled [place] [address] documented as of this encounter Procedures Procedure [...] Farley MD IMG FILM LIBRARY ORD ERABLES [place], [place] documented in this encounter Visit Diagnoses Diagnosis Pain Generalized pain documented in this encounter Care Teams Sand Mill Operator Facing Sand Relationship Specialty Start Date End Date None None PCP - General 08/09/10 07/22/18 documented as of this encounter
--- OUTSIDE RECORDS SUMMARY | 2024-08-06 14:45 | XMS_ITS | Encounter Summary ---
Author Organization [facility] Address [facility] [place] [address] Care Team Providers Care Pipe Assembly Worker Name Role Phone None Primary Care Provider Unavailabl e Reason for Referral * Consultation (Routine) - Closed Specialty Diagnoses / Procedures Referred By Contac t Referred To Contact Orthopaedics Diagnoses Chronic right shoulder pain Chronic right shoulder pain Alpesh Orona MD [facility] [place] [address] [facility] [address] [place] [phone] Referral ID Status Reason Start Date Expiration Date V isits Requested Visits Authorized [id number] Closed Consult, Test & Treat 02/24/2016 02/23/2017 1 1 Reason for Visit * Reason Comments Neck Pain right shoulder arm p ain Encounter Details Date Type Department Care Team (Late st Contact Info) Description 02/24/2016 11:20 AM EDT Office [place] [address] Alpesh Orona MD [facility] [place] [address] Chronic right shoulder pain Social History Tobacco [...] 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 He denies constitutional symptoms or changes in [...] 1:30 PM EST Clinical Support Urology at [place] [phone] 08/07/2024 3:30 PM EST [place]uled [place] [address] Scheduled Referrals Name Type Priority Associated Diagnoses Order Schedule Referral to Orthopaedics Outpatient Referral Routine Chronic right shoulder pain Ordered: 02/24/2016 documented as of this encounter Visit Diagnoses Diagnosis Chronic right shoulder pain Pain in joint, shoulder region documented in this encounter Care Teams Pipe Assembly Worker Relationship Specialty Start Date End Date None None PCP - General 08/09/10 07/22/18 documented as of this encounter
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
--- OUTSIDE RECORDS SUMMARY | 2024-08-06 14:45 | XMS_ITS | Encounter Summary ---
Author Organization [facility] Address [address] [place] [address] Care Team Providers Care Driller Multiple Spindle Name Role Phone Erich Sethi MD Primary Care Provider [phone] Sai Garg MD Primary Care Provi glynn Encounter Details Date Type Department Care Team (Late st Contact Info) Description 11/28/2014 Historical Results Only [facility] Radiology Results [address] [place], [place] [phone] Bhavesh Chi MD [address] [place] [address] Social History Tobacco Use Types [...] CC: ? Transcribed Date/Time: 11/28/2014 (1226) ? Ore Puncher: ? Printed Date/Time: 02/18/2019 (6773) ? PAGE 1 ? Signed Report ? [...] Juliocesar Keller MD CC: Transcribed Date/Time: 11/28/2014 (3216) Ore Puncher: Printed Date/Time: 02/18/2019 (1524) PAGE 1 Signed Report Bhavesh Chi MD IMG DIAGNOSTIC IMAGING O RDERABLES Final Result documented in this encounter Visit Diagnoses Not on filedocumented in this encounter Care Teams Driller Multiple Spindle Relationship Specialty Start Date End Date Erich Sethi MD [address] [place] [phone] PCP - General 11/12/14 03/11/15 Sai Garg MD [address] [place] [phone] PCP - General 03/12/15 11/04/19 documented as of this encounter
--- OUTSIDE RECORDS SUMMARY | 2024-08-06 14:45 | XMS_ITS | Encounter Summary ---
Author Organization [facility] Address [facility] [place] [address] Care Team Providers Care Senior Production Manager Name Role Phone None Primary Care Provider Unavailabl e Reason for Referral * Diagnostic Test (Routine) - Closed Specialty Diagnoses / Procedures Referred By Contac t Referred To Contact Radiology Diagnoses Acute pain of right shoulder Procedures MRI Shoulder Right WO Contrast (GENERIC) Edgar Escobar MD [facility] [place] [address] [place] [address] Referral ID Status Reason Start Date Expiration Date V isits Requested Visits Authorized [id number] Closed Specialty Service Requested 03/16/2016 06/14/2016 1 1 Reason for Visit * Diagnostic Test (Routine) - Closed Specialty Diagnoses / Procedures Referred By Contac t Referred To Contact Radiology Diagnoses Acute pain of right shoulder Procedures MRI Shoulder Right WO Contrast (GENERIC) Edgar Escobar MD [facility] [place] [address] [place] [address] Referral ID Status Reason Start Date Expiration Date V isits Requested Visits Authorized [id number] Closed Specialty Service Requested 03/16/2016 06/14/2016 1 1 Encounter Details Date Type Department Care Team (Latest Contact Info) Description 03/23/2016 6:59 AM EDT - 03/23/2016 11:59 PM EDT Hospital [place] [address] Braydon Carrillo MD [facility] [place] [address] Acute pain of right shoulder Discharge Disposition: [...] 1:30 PM EST Clinical [place] [phone] 08/07/2024 3:30 PM EST Scheduled [place] [address] documented as of this encounter Procedures Procedure [...] shoulder documented in this encounter Care Teams Senior Production Manager Relationship Specialty Start Date End Date None None PCP - General 08/09/10 07/22/18 documented as of this encounter
--- OUTSIDE RECORDS SUMMARY | 2024-08-06 14:45 | XMS_ITS | Encounter Summary ---
Author Organization [facility] Address [address] [place] [address] Care Team Providers Care Emergency Management Director Name Role Phone Sai Garg MD Primary Care Provi glynn Encounter Details Date Type Department Care Team (Late st Contact Info) Description 04/08/2015 Historical Results Only [facility] Radiology Results [address] [place] [address] Marcelino Riojas MD [address] [place] [address] Social History Tobacco Use Types [...] CC: ? Transcribed Date/Time: 04/08/2015 (2020) ? Corporate Librarian: ? Printed Date/Time: 02/24/2019 (1913) ? PAGE [...] Grigsby MD CC: Transcribed Date/Time: 04/08/2015 (2020) Corporate Librarian: Printed Date/Time: 02/24/2019 (1913) PAGE 1 Signed Report us Marcelino Riojas MD [facility] DIAGNOSTIC IMAGING [place]ILLIPS Final Result * [...] CC: ? Transcribed Date/Time: 04/08/2015 (2020) ? Corporate Librarian: ? Printed Date/Time: 02/24/2019 (1912) ? PAGE [...] Grigsby MD CC: Transcribed Date/Time: 04/08/2015 (2020) Corporate Librarian: Printed Date/Time: 02/24/2019 (1912) PAGE 1 Signed [...] CC: ? Transcribed Date/Time: 04/08/2015 (2019) ? Corporate Librarian: ? Printed Date/Time: 02/24/2019 (1914) ? PAGE 1 ? Signed Report ? Procedure Note Imna Grigsby - 07/22/2019 EXAM: RADIOLOGY/CHEST ([place] LAT) [...] Grigsby MD CC: Transcribed Date/Time: 04/08/2015 (2019) Corporate Librarian: Printed Date/Time: 02/24/2019 (1913) PAGE 1 Signed Report Marcelino Riojas MD [facility] DIAGNOSTIC IMAGING [place]IPS Final Result * [...] CC: ? Transcribed Date/Time: 04/08/2015 (1950) ? Corporate Librarian: ? Printed Date/Time: 02/24/2019 (191) ? PAGE [...] Grigsby MD CC: Transcribed Date/Time: 04/08/2015 (1949) Corporate Librarian: Printed Date/Time: 02/24/2019 (1913) PAGE 1 Signed Report Marcelino Riojas MD IMG CT ORDERABLES Final [...] CC: ? Transcribed Date/Time: 04/08/2015 (194) ? Corporate Librarian: ? Printed Date/Time: 02/24/2019 (1912) ? PAGE [...] Grigsby MD CC: Transcribed Date/Time: 04/08/2015 (1945) Corporate Librarian: Printed Date/Time: 02/24/2019 (1912) PAGE 1 Signed Report us Marcelino Josue Riojas MD IMG CT ORDERABLES Final Res ult documented in this encounter Visit Diagnoses Not on filedocumented in this encounter Care Teams Emergency Management Director Relationship Specialty Start Date End Date Sai Garg MD [address] [place], [place] [phone] PCP - General 03/12/15 11/04/19 documented as of this encounter
--- OUTSIDE RECORDS SUMMARY | 2024-08-06 14:45 | XMS_ITS | Encounter Summary ---
Author Organization [facility] Address [address] [place] [address] Care Team Providers Care Supervisor Type Bar And Segment Name Role Phone Sai Garg MD Primary Care Provi glynn Encounter Details Date Type Department Care Team (Latest Contact Info) Description 06/01/2015 9:19 EDT - 06/01/2015 23:59 EDT Hospital Encounter [facility] [address] [place] [address] Unknown, Provider, MD Discharge Disposition: Home or [...] Departure Means Destination Home or Self Senior Care documented in this encounter Plan of Treatment Not on file documented as of this encounter Visit Diagnoses Not on filedocumented in this encounter Care Teams Supervisor Type Bar And Segment Relationship Specialty Start Date End Date Sai Garg MD [address] [place] [phone] PCP - General 03/12/15 11/04/19 documented as of this encounter
--- OUTSIDE RECORDS SUMMARY | 2024-08-06 14:45 | XMS_ITS | Encounter Summary ---
Author Organization [facility] Address [address] [place] [address] Care Team Providers Care Rn Managed Care Name Role Phone Erich Sethi MD Primary Care Provider [phone] Sai Garg MD Primary Care Provi glynn Encounter Details Date Type Department Care Team (Late st Contact Info) Description 01/11/2015 Historical Results Only [facility] Radiology Results [address] [place], [place] [address] Ravi Schwartz MD [address] [place] [address] Social History Tobacco Use Types [...] CC: ? Transcribed Date/Time: 01/11/2015 (0128) ? Strip Cutter: ? Printed Date/Time: 02/18/2019 (8702) ? PAGE 1 ? Signed Report ? Procedure Note rOville Marvin MD - 07/22/2019 EXAM: RADIOLOGY/LUMBAR SPINE [...] Marvin MD CC: Transcribed Date/Time: 01/11/2015 (012) Strip Cutter: Printed Date/Time: 02/18/2019 (2776) PAGE 1 Signed Report Ravi Schwartz MD IMG DIAGNOSTIC IMAGING ORDERA BLES Final Result documented in this encounter Visit Diagnoses Not on filedocumented in this encounter Care Teams Rn Managed Care Relationship Specialty Start Date End Date Erich Sethi MD [address] [place] [address] [phone] PCP - General 11/12/14 03/11/15 Sai Garg MD [address] [place] [phone] PCP - General 03/12/15 11/04/19 documented as of this encounter
--- OUTSIDE RECORDS SUMMARY | 2024-08-06 14:45 | XMS_ITS | Encounter Summary ---
Author Organization [facility] Address [address] [place] [address] Care Team Providers Care Hogshead Wrecker Name Role Phone Sai Garg MD Primary Care Provi glynn Encounter Details Date Type Department Care Team (Late st Contact Info) Description 04/19/2015 Historical Results Only [facility] Radiology Results [address] [place], [place] [phone] Ravi Schwartz MD [address] [place] [address] Social History Tobacco Use Types [...] CC: ? Transcribed Date/Time: 04/19/2015 (1602) ? Dolly Pusher: ? Printed Date/Time: 02/25/2019 (1113) ? PAGE [...] Vitale MD CC: Transcribed Date/Time: 04/19/2015 (1602) Dolly Pusher: Printed Date/Time: 02/25/2019 (4510) PAGE 1 Signed Report us Ravi Schwarzt MD IMG CT ORDERABLES Final Resul t * XR CHEST 2 VIEWS (04/19/2015 13:10 EDT) Anatomical Region Laterality Modality Other 04/19/2015 13:1 0 EDT Narrative 04/19/2015 13:14 EDT ? EXAM: RADIOLOGY/CHEST ([place] ?? LAT) ?EX. D/ (9327) ? CLINICAL INFORMATION: ? HOMELESS ALCOHOIC ? [...] MD ? CC: ? Transcribed Date/Time: 04/19/2015 (1894) ? Dolly Pusher: ? Printed Date/Time: 02/25/2019 (3118) ? PAGE 1 ? Signed Report ? [...] Orville Marvin MD CC: Transcribed Date/Time: 04/19/2015 (7287) Dolly Pusher: Printed Date/Time: 02/25/2019 (0426) PAGE 1 Signed Report Ravi Schwartz MD IMG DIAGNOSTIC IMAGING ORDERA BLES Final Result documented in this encounter Visit Diagnoses Not on filedocumented in this encounter Care Teams Hogshead Wrecker Relationship Specialty Start Date End Date Sai Garg MD [address] [place] [phone] PCP - General 03/12/15 11/04/19 documented as of this encounter
--- OUTSIDE RECORDS SUMMARY | 2024-08-06 14:45 | XMS_ITS | Encounter Summary ---
Author Organization [facility] Address [address] [place] [address] Care Team Providers Care Sander And Buffer Name Role Phone Sai Garg MD Primary Care Provi glynn Encounter Details Date Type Department Care Team (Late st Contact Info) Description 05/21/2015 Historical Results Only [facility] Radiology Results [address] [place] [address] Bhavesh Chi MD [address] [place] [address] Social History Tobacco Use Types [...] CC: ? Transcribed Date/Time: 05/21/2015 (1208) ? Manager Presentation: ? Printed Date/Time: 02/25/2019 (1113) ? PAGE [...] Sai Lo MD CC: Transcribed Date/Time: 05/21/2015 (9914) Manager Presentation: SCKeke Printed Date/Time: 02/25/2019 (2150) PAGE 1 Signed Report [facility] Gerard Chi MD IMG DIAGNOSTIC IMAGING O RDERABLES Final Result documented in this encounter Visit Diagnoses Not on filedocumented in this encounter Care Teams Sander And Buffer Relationship Specialty Start Date End Date Sai Garg MD [address] [place] [phone] PCP - General 03/12/15 11/04/19 documented as of this encounter
--- OUTSIDE RECORDS SUMMARY | 2024-08-06 14:45 | XMS_ITS | Encounter Summary ---
Author Organization [facility] Address [facility] [place] [address] Care Team Providers Care Icu Nurse Name Role Phone None Primary Care Provider Unavailabl e Encounter Details Date Type Department Care Team (Late st Contact Info) Description 02/04/2016 - 02/04/2016 11:59 PM EDT Hospital Encounter Radiology Library at [facility] [place] [address] Sharan Gee MD [address] [place], [place] [address] Pain Discharge Disposition: Home Social History Tobacco [...] 1:30 PM EST Clinical [place] [address] 08/07/2024 3:30 PM EST Scheduled [place] [address] documented as of this encounter Procedures Procedure [...] MD IMG FILM LIBRARY ORD ERABLES [place]ICH [place], [place] documented in this encounter Visit Diagnoses Diagnosis Pain Generalized pain documented in this encounter Care Teams Icu Nurse Relationship Specialty Start Date End Date None None PCP - General 08/09/10 07/22/18 documented as of this encounter
--- OUTSIDE RECORDS SUMMARY | 2024-08-06 14:45 | XMS_ITS | Encounter Summary ---
Author Organization [facility] Address [address] [place] [address] Care Team Providers Care Employee Service Officer Name Role Phone Sai Garg MD Primary Care Provi glynn Reason for Referral * Follow Up (Routine) - Closed Specialty Diagnoses / Procedures Referred By Christin connelly Referred To Contact Diagnoses Chest pain Yanely Beckman MD Phone: tel: fax: Referral ID Status Reason Start Date Expiration Date V isits Requested Visits Authorized [id number] Closed Continuity of Care 03/12/2015 1 1 Question Answer Reason for Request: f/u 2 weeks Encounter Details Date Type Department Care Team (Late st Contact Info) Description 03/12/2015 10:23 EDT - 03/12/2015 14:59 EDT Hospital Encounter [facility] Cardiac/Telemetry Unit [address] [place] [address] Ravi Costello MD [address] [place] [phone] Germain Ayala MD [address] [place] [phone] Chest pain (Primary Dx); Abnormal cardiovascular [...] documented in this encounter Progress Notes * Eetlvina Kennedy RN - 03/12/2015 1436 EDT D: [...] disorder, and current ethanol abuse(~6beers/daily) presents [place] [facility] due to elevated troponin and atypical chest [...] was given Aspirin 81mg and transferred to [facility]. Currently he is experiencing 6/10 chest pain; he is irritable and annoyed that he hasn't gotten anything to eat or drink. . Denies recent illness. No lightheadedness/fevers/chills Relevant prior Cardiac Studies: [facility] 01/2014: Diagnostic Cardiac Study Results Left main: Normal. LAD: Prior intervention: stent in the proximal LAD. The stented segment is patent Left circumflex: Normal. 2nd obtuse marginal: Ostial lesion: There is a 55% stenosis. This lesion is unchanged from a prior study. Right coronary: Normal. Stress test at [facility] on November 2014: moderate size, partially reversible [...] discussed with Dr. Kash Beckman MD PGY-2, #[id number] Attending Attestation: I have personally seen and [...] Are Adequately Managed D: Patient arrived to [place] [address] for CP. Vital signs noted, and tele [...] 03/16/2015 11:4 5 EDT us Scan 2 Insulator Helper PROCEDURE/MINOR SURGICAL OR DERABLES Final Result * ECG REPORT - SCANNED (03/15/2015 14:46 EDT) 03/15/2015 14:4 6 EDT us Scan 2 Insulator Helper PROCEDURE/MINOR SURGICAL OR DERABLES Final Result * INPATIENT ADD-ON (03/12/2015 12:10 EDT) Tests to be added AST, ALT, ALK PHOS, TOTAL BILI 03/12/2015 12:10 EDT [facility] Number for problems [id number] 03/12/2015 12:21 EDT [facility] Accession number [id number] 03/12/2015 12:21 EDT [facility] TOPOGRAPHY UNKNOWN / Unknown 03/12/2015 12:10 EDT 03/12/2015 12:20 EDT us Yanely Beckman MD HEMATOLOGY & PF4 ORDERABLES Final Result [facility] [address] [place] [address] * GLUCOSE, GLUCOMETER (03/12/2015 11:38 EDT) Glucose, Fingerstick 87 70 - 100 mg/dl 03/12/2015 11:42 EDT [facility] Vault Person ID [id number] 03/12/2015 11:42 EDT [facility] Comment:[facility] BLOOD SPECIMEN / Unknown 03/12/2015 11:38 EDT 03/12/2015 11:42 EDT us Germain Ayala MD CHEMISTRY & BLOOD GAS ORDERABLES Final Result Performing Organization Address [facility] Co de Phone Number [facility] [address] [place] [address] * INPATIENT ADD-ON (03/12/2015 11:20 EDT) Tests to be added ELECTROLYT VIVIANACREATIN INE 03/12/2015 11:20 EDT [facility] Number for problems [id number] 03/12/2015 11:30 EDT [facility] Accession number [id number] 03/12/2015 11:30 EDT [facility] TOPOGRAPHY UNKNOWN / Unknown 03/12/2015 11:20 EDT 03/12/2015 11:30 EDT us Roque Hewitt MD HEMATOLOGY & PF4 ORDERABLES Fi nal Result Performing Organization Address [facility] Co de Phone Number [facility] [address] [place] [address] * EKG 12-LEAD (03/12/2015 11:08 EDT) 03/12/2015 11:0 8 EDT Narrative [facility] - 03/13/2015 15:22 EDT ? [facility] ? Test Date: ?2015-03-12 Pat Name: ? JIMENEZ BARKLEY ? Department: ?? Gabriel 5 ? Room: ? MW516 Gender: ? M ?Assistant Bookkeeper: ?? [id number] : ?1955 ? Requested By: ANN GUERRA Order Number: [id number] ? Reading MD: ?? SANDRA BALLESTEROS MD ? Measurements Intervals ?[place] ? Rate: ? 58 ? P: ?66 AK: ? 156 ?QRS: ?71 QRSD: ? 92 [...] Note Sandra Ballesteros MD - 03/13/2015 [facility] Test Date: 2015-03-12 Pat Name: JIMENEZ BARKLEY Department: [place] [address] Room: [facility] Gender: M Assistant Bookkeeper: [id number] : 1955 Requested By: ANN GUERRA Order Number: [id number] Reading MD: SANDRA BALLESTEROS MD Measurements Intervals [place] Rate: 58 P: 66 AK: 156 QRS: 71 QRSD: 92 T: 79 [...] Beckman MD CARDIAC ECG ORDERABLES Final Result [facility] * BILIRUBIN, TOTAL (03/12/2015 11:05 EDT) Bilirubin, Total 0.7 <1.4 mg/dl 03/12/2015 13:19 EDT [facility] BLOOD SPECIMEN / Unknown 03/12/2015 11:05 EDT 03/12/2015 11:19 EDT us Yanely Beckman MD CHEMISTRY & BLOOD GAS ORDERA BLES Final Result Performing Organization Address City/[facility]/ZIP Co de Phone Number [facility] [address] [place] [address] * (ABNORMAL) AST (03/12/2015 11:05 EDT) AST 53(H) 15 - 46 U/L 03/12/2015 13:19 EDT [facility] BLOOD SPECIMEN / Unknown 03/12/2015 11:05 EDT 03/12/2015 11:19 EDT us Yanely Beckman MD CHEMISTRY & BLOOD GAS ORDERA BLES Final Result Performing Organization Address [facility] Co de Phone Number [facility] [address] [place] [address] * ALT (03/12/2015 11:05 EDT) ALT 61 21 - 72 U/L 03/12/2015 13:19 EDT [facility] BLOOD SPECIMEN / Unknown 03/12/2015 11:05 EDT 03/12/2015 11:19 EDT us Yanely Beckman MD CHEMISTRY & BLOOD GAS ORDERA BLES Final Result Performing Organization Address [facility]/ZIP Co de Phone Number [facility] [address] [place] [address] * ALKALINE PHOSPHATASE (03/12/2015 11:05 EDT) Total Alkaline Phosphatase 57 38 - 126 U/L 03/12/2015 13:19 EDT [facility] BLOOD SPECIMEN / Unknown 03/12/2015 11:05 EDT 03/12/2015 11:19 EDT us Yanely Beckman MD CHEMISTRY & BLOOD GAS ORDERA BLES Final Result [facility] [address] [place] [address] * ELECTROLYTES (03/12/2015 11:05 EDT) Sodium 141 136 - 145 mEq/L 03/12/2015 13:19 EDT [facility] Potassium 4.0 3.5 - 5.0 mEq/L 03/12/2015 13:09 EDT [facility] Chloride 104 96 - 110 mEq/L 03/12/2015 13:19 EDT [facility] CO2 30 24 - 32 mEq/L 03/12/2015 13:19 EDT [facility] BLOOD SPECIMEN / Unknown 03/12/2015 11:05 EDT 03/12/2015 11:19 EDT Yanely Beckman MD CHEMISTRY & BLOOD GAS ORDERA BLES Final Result Performing Organization Address [facility]/ZIP Co de Phone Number [facility] [address] [place] [address] * (ABNORMAL) CREATININE (03/12/2015 11:05 EDT) Creatinine 0.64(L) 0.66 - 1.25 mg/dl 03/12/2015 13:19 EDT [facility] GFR, Calculated >60 >60 ml/min/1.7 3m2 03/12/2015 13:19 EDT [facility] BLOOD SPECIMEN / Unknown 03/12/2015 11:05 EDT 03/12/2015 11:19 EDT Yanely Beckman MD CHEMISTRY & BLOOD GAS ORDERA BLES Final Result [facility] [address] [place] [address] * TROPONIN I (03/12/2015 11:05 EDT) Troponin I (ng/mL) <0.034 <0.034 ng/ml 03/12/2015 12:01 [facility] Blood specimen (specimen) BLOOD SPECIMEN / Unknown 03/12/2015 11:05 EDT 03/12/2015 11:19 EDT us Yanely Beckman MD CHEMISTRY & BLOOD GAS ORDERA BLES Final Result [facility] [address] [place] [address] * (ABNORMAL) HEMAGRAM (03/12/2015 11:05 EDT) WBC 8.75 4.0 - 10.4 K/cmm 03/12/2015 11:39 [facility] RBC 3.80(L) 4.36 - 5.78 M/cmm 03/12/2015 11:39 [facility] Hemoglobin 12.0(L) 13.8 - 17.3 gm/dl 03/12/2015 11:39 [facility] HCT 36.6(L) 39.5 - 50.2 % 03/12/2015 11:39 [facility] MCV 96(H) 81 - 95 fl 03/12/2015 11:39 [facility] MCH 31.7 27.6 - 33.0 pg 03/12/2015 11:39 [facility] MCHC 32.9 32.8 - 36.4 gm/dl 03/12/2015 11:39 [facility] RDW-CV 14.1 11.8 - 14.1 % 03/12/2015 11:39 [facility] RDW-SD 46.8(H) 36.5 - 45.9 fl 03/12/2015 11:39 [facility] PLT 123(L) 141 - 320 K/cmm 03/12/2015 11:39 [facility] MPV 7.9 7.5 - 11.2 fl 03/12/2015 11:39 [facility] Blood specimen (specimen) BLOOD SPECIMEN / Unknown 03/12/2015 11:05 EDT 03/12/2015 11:19 EDT us Yanely Beckman MD HEMATOLOGY & PF4 ORDERABLES Final Result [facility] [address] [place] [address] * (ABNORMAL) PROTIME (03/12/2015 11:05 EDT) Pro Time 9.8(L) 10.1 - 13.0 secs 03/12/2015 11:58 EDT [facility] Comment: New prothrombin t radha range effective 02/23/15 I.N.R. 0.9 0.9 - 1.1 Ratio 03/12/2015 11:58 EDT [facility] Comment: Moderate Intensity Coumadin INR = 2.0-3.0 Adjustments in anticoagulant therapy dose should be based upon the INR and NOT the Pro Time. Blood specimen (specimen) BLOOD SPECIMEN / Unknown 03/12/2015 11:05 EDT 03/12/2015 11:19 EDT us Yanely Beckman MD HEMATOLOGY & PF4 ORDERABLES Final Result [facility] [address] [place] [address] documented in this encounter Visit Diagnoses Diagnosis [...] Discontinued, Routine 1223 (Given - Provid er: Etelivna Kennedy RN) mometasone-formoterol (DULERA) 100-5 mcg/actuation inhaler [...] 03/12/2015 documented in this encounter Care Teams Employee Service Officer Relationship Specialty Start Date End Date Sai Garg MD [address] [place] [phone] PCP - General 03/12/15 11/04/19 documented as of this encounter
--- OUTSIDE RECORDS SUMMARY | 2024-08-06 14:45 | XMS_ITS | Encounter Summary ---
Author Organization [place] [address] Care Team Providers Care Home Theatre Technician Name Role Phone None Primary Care Provider Unavailabl e Reason for Referral * Diagnostic Test (Routine) - Closed Specialty Diagnoses / Procedures Referred By Contac t Referred To Contact Radiology Diagnoses Acute pain of right shoulder Procedures MRI Shoulder Right WO Contrast (GENERIC) Edgar Escobar MD [facility] [place] [address] [facility] [place] [address] Referral ID Status Reason Start Date Expiration Date V isits Requested Visits Authorized [id number] Closed Specialty Service Requested 03/16/2016 06/14/2016 1 1 Reason for Visit * Reason Comments Right Shoulder Pain * Consultation (Routine) - Closed Specialty Diagnoses / Procedures Referred By Christin t Referred To Contact Orthopaedics Diagnoses Chronic right shoulder pain Chronic right shoulder pain Alpesh Orona MD [facility] [place] [address] [facility] [address] [place] [phone] Referral ID Status Reason Start Date Expiration Date V isits Requested Visits Authorized [id number] Closed Consult, Test & Treat 02/24/2016 02/23/2017 1 1 Encounter Details Date Type Department Care Team (Late st Contact Info) Description 03/03/2016 1:00 PM EDT Office [place] [phone] Braydon Carrillo MD [facility] [place] [address] Acute pain of right shoulder Social History [...] has strength 5/5 to AI and IO opto mechanical technician. Wrist extension, wrist flexion, elbow extension, elbow [...] 1:30 PM EST Clinical [place] [address] 08/07/2024 3:30 PM EST Scheduled [place] [address] documented as of this encounter Results * [...] shoulder documented in this encounter Care Teams Home Theatre Technician Relationship Specialty Start Date End Date None None PCP - General 08/09/10 07/22/18 documented as of this encounter
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
--- OUTSIDE RECORDS SUMMARY | 2024-08-06 14:45 | XMS_ITS | Encounter Summary ---
Author Organization [facility] Address [address] [place] [address] Care Team Providers Care Stereo Equipment Salesperson Name Role Phone Erich Sethi MD Primary Care Provider [phone] Encounter Details Date Type Department Care Team (Latest Contact Info) Description 11/21/2014 12:45 EST - 11/21/2014 23:59 EST Hospital Encounter [facility] [address] [place] [address] Unknown, Provider, MD Discharge Disposition: Home or [...] on filedocumented in this encounter Care Teams Stereo Equipment Salesperson Relationship Specialty Start Date End Date Erich Sethi MD [address] [place] [phone] PCP - General 11/12/14 03/11/15 documented as of this encounter
--- OUTSIDE RECORDS SUMMARY | 2024-08-06 14:45 | XMS_ITS | Encounter Summary ---
Author Organization [facility] [place] [address] Care Team Providers Care Internal Combustion Engine Inspector Name Role Phone None Primary Care Provider Unavailabl e Encounter Details Date Type Department Care Team (Late st Contact Info) Description 03/08/2016 Orders Only [place] [address] Sherita Morley Social History Tobacco Use Types [...] 1:30 PM EST Clinical [place] [address] 08/07/2024 3:30 PM EST Scheduled View [place] [address] documented as of this encounter Visit Diagnoses Not on filedocumented in this encounter Care Teams Internal Combustion Engine Inspector Relationship Specialty Start Date End Date None None PCP - General 08/09/10 07/22/18 documented as of this encounter
--- OUTSIDE RECORDS SUMMARY | 2024-08-06 14:45 | XMS_ITS | Encounter Summary ---
Author Organization [facility] Address [address] [place] [address] Care Team Providers Care Trim Machine Operator Name Role Phone Unavailable Primary Care Provider Unavailabl e Encounter Details Date Type Department Care Team (Late st Contact Info) Description 01/26/2021 Lab Requisition [facility] Pathology & Laboratory Medicine - [facility] [address] [place] [address] Outr Resulting Lab, Provider Social History Tobacco [...] Lyme Ab Negative Negative 01/27/2021 10:48 EDT [facility] Comment:New 3rd generation a ssay in use 02/25/2020 Blood VENOUS BLOOD / Unknown 01/25/2021 10:45 EDT 01/26/2021 15:54 EDT us Provider Outr Resulting Lab IMMUNOLOGY AND SEROL OGY ORDERABLES Final Result [facility] [address] [place] [address] documented in this encounter Visit Diagnoses Not on filedocumented in this encounter
--- OUTSIDE RECORDS SUMMARY | 2024-08-06 14:45 | XMS_ITS | Encounter Summary ---
Author Organization [facility] Address [address] [place] [address] Care Team Providers Care Help Desk Consultant Name Role Phone Sai Garg MD Primary Care Provi glynn Encounter Details Date Type Department Care Team (Late st Contact Info) Description 05/12/2015 Historical Results Only [facility] Radiology Results [address] [place], [place] [address] Sai Garg MD [address] [place] [phone] Social History Tobacco Use Types Packs/Day [...] on 05/18/2015 (1509): ? Ordering Physician: Exam [id number] ??CT/SECONDARY READ CAT SCAN EXAM ? Was Kg Senra MD ?Reported By: Gamaliel Vitale MD ? CC: ? Transcribed Date/Time: 05/14/2015 (1513) ? Metal Solderer: JENNY ? Printed Date/Time: 02/25/2019 (1113) ? [...] ANTONY, on 05/18/2015 (1509): Ordering Physician: Exam [id number] CT/SECONDARY READ CAT SCAN EXAM Was Kg Serna MD Reported By: Gamaliel Vitale MD CC: Transcribed Date/Time: 05/14/2015 (9148) Metal Solderer: JENNY Printed Date/Time: 02/25/2019 (9480) PAGE 1 Signed Report Sai Hernández MD IMG CT ORDERABLES F inal Result documented in this encounter Visit Diagnoses Not on filedocumented in this encounter Care Teams Help Desk Consultant Relationship Specialty Start Date End Date Sai Garg MD [address] [place] [phone] PCP - General 03/12/15 11/04/19 documented as of this encounter
--- OUTSIDE RECORDS SUMMARY | 2024-08-06 14:45 | XMS_ITS | Encounter Summary ---
Author Organization [facility] Address [address] [place] [address] Care Team Providers Care Tile And Marble Installer Name Role Phone Sai Garg MD Primary Care Provi glynn Encounter Details Date Type Department Care Team (Late st Contact Info) Description 05/20/[address] [facility] Radiology Results [address] [place] [address] Farnaz Browning, HEBER ENP [address] [place] [address] Social History Tobacco Use Types [...] CC: ? Transcribed Date/Time: 05/20/2015 (2010) ? Shirt Ironer: .MICHELL ? Printed Date/Time: 02/25/2019 (1113) ? [...] Grigsby MD CC: Transcribed Date/Time: 05/20/2015 (2010) Shirt Ironer: Printed Date/Time: 02/25/2019 (2171) PAGE 1 Signed Report us Farnaz Browning COIL MAKER ENP IMG DIAGNOSTIC IMAGING ORD ERABLES Final Result documented in this encounter Visit Diagnoses Not on filedocumented in this encounter Care Teams Tile And Marble Installer Relationship Specialty Start Date End Date Sai Garg MD [address] [place] [phone] PCP - General 03/12/15 11/04/19 documented as of this encounter
--- OUTSIDE RECORDS SUMMARY | 2024-08-06 14:45 | XMS_ITS | Encounter Summary ---
Author Organization [facility] Address [address] [place] [address] Care Team Providers Care Wood Calker Name Role Phone Erich Sethi MD Primary Care Provider [phone] Sai Garg MD Primary Care Provi glynn Encounter Details Date Type Department Care Team (Late st Contact Info) Description 01/10/2015 Historical Results Only [facility] Radiology Results [address] [place], [place] [address] Ravi Schwartz MD [address] [place] [address] Social History Tobacco Use Types [...] MD ? CC: ? Transcribed Date/Time: 05/04/2015 (1744) ? Cash Grain Farmer: JENNY ? Printed Date/Time: 02/18/2019 (6784) ? PAGE 1 ? Signed Report ? [...] Orville Marvin MD CC: Transcribed Date/Time: 05/04/2015 (8185) Cash Grain Farmer: JENNY Printed Date/Time: 02/18/2019 (5979) PAGE 1 Signed Report Lily Flores MD [facility] DIAGNOSTIC IMAGING ORDERABLES Final Result documented in this encounter Visit Diagnoses Not on filedocumented in this encounter Care Teams Wood Calker Relationship Specialty Start Date End Date Erich Sethi MD [address] [place] [phone] PCP - General 11/12/14 03/11/15 Sai Garg MD [address] [place] [phone] PCP - General 03/12/15 11/04/19 documented as of this encounter
--- OUTSIDE RECORDS SUMMARY | 2024-08-06 14:45 | XMS_ITS | Referral Summary ---
Author Organization [facility] Address [address] [place] [address] Care Team Providers Care Mosaic Tile Maker Name Role Phone Unavailable Primary Care Provider [...] GERD (gastroesophageal reflux disease) 5 Seizures ([facility]) 02/23/2015 NSTEMI (non-ST elevated myocardial infarction) ( [facility]) 01/20/2014 ETOH abuse 01/20/2014 NSTEMI (non-ST elevated myocardial infarction) ( [facility]) 01/02/2014 Chronic right shoulder pain [...] URINALYSIS ORDERABLES Final Re sult [facility] [address] [place] [address] * LIPID PROFILE (INCLUDES CHOLESTEROL, TRIGLYCERIDES, HDL, LDL) (01/19/2014 5:40 EDT) Cholesterol 162 mg/dl [facility] Comment: Desirable:<200 Borderline High:200-239 High:>gp=539 Triglycerides 89 mg/dl [facility] Comment: Normal:<150 Borderline High:150-199 High:200-499 Very High:>jd=771 HDL 102 mg/dl [facility] Comment: Low:<40 Normal:40-60 Desirable: >60 LDL, Calculated 42 mg/dl [facility] Comment: Optimal:<100 Near Optimal:100-129 Borderline High:130-159 High:160-189 Very High:>gj=622 Chol/HDL Ratio 1.6 ULISES [facility] Fasting? Unknown [facility] Non HDL Cholesterol 60 mg/dl [facility] Comment: Desirable:<130 Borderline:130-159 High: 160-189 Very High: >tg=978 Blood specimen (specimen) 01/19/2014 5:40 EDT 01/19/2014 5:55 EDT us Sridevi Alvarez MD CHEMISTRY & BLOOD GAS ORDERABL ES Final Result [facility] [address] [place] [address] from Last 3 Months or Most Recently Relevant to Health Maintenance Advance Directives For more information, please contact: [phone] * Full Code (Latest Code Status on [...]
--- OUTSIDE RECORDS SUMMARY | 2024-08-06 14:45 | XMS_ITS | Encounter Summary ---
Author Organization [facility] Address [address] [place] [address] Care Team Providers Care Customer Service Supervisor Name Role Phone Erich Sethi MD Primary Care Provider +1 [phone] Sai Garg MD Primary Care Provi glynn Encounter Details Date Type Department Care Team (Late st Contact Info) Description 11/21/2014 Historical Results Only [facility] Radiology Results [address] [place] [address] Fredo Moffett MD [address] [place], [place] [phone] Social History Tobacco Use Types Packs/Day Years [...] CC: ? Transcribed Date/Time: 11/22/2014 (1823) ? Solution Advisor: BONY ? Printed Date/Time: 02/18/2019 (0030) ? PAGE 1 ? Signed Report ? [...] Vitale MD CC: Transcribed Date/Time: 11/22/2014 (1823) Solution Advisor: BONY Printed Date/Time: 02/18/2019 (3354) PAGE 1 Signed Report us Fredo Moffett MD IMG DIAGNOSTIC IMAGING ORDER MEAGAN Final Result documented in this encounter Visit Diagnoses Not on filedocumented in this encounter Care Teams Customer Service Supervisor Relationship Specialty Start Date End Date Erich Sethi MD [address] [place] [address] [phone] PCP - General 11/12/14 03/11/15 Sai Garg MD [address] [place] [phone] PCP - General 03/12/15 11/04/19 documented as of this encounter
--- OUTSIDE RECORDS SUMMARY | 2024-08-06 14:45 | XMS_ITS | Encounter Summary ---
Author Organization [facility] Address [address] [place] [address] Care Team Providers Care Body Trimmer Upholsterer Name Role Phone Erich Sethi MD Primary Care Provider +1 [phone] Sai Garg MD Primary Care Provi glynn Encounter Details Date Type Department Care Team (Late st Contact Info) Description 03/11/2015 Historical Results Only [facility] Radiology Results [address] [place] [address] Fredo Moffett MD [address] [place], [place] [phone] Social History Tobacco Use Types Packs/Day Years [...] CC: ? Transcribed Date/Time: 03/11/2015 (1841) ? Sprayer Automatic Spray Machine: ? Printed Date/Time: 02/24/2019 (1913) ? PAGE [...] Grigsby MD CC: Transcribed Date/Time: 03/11/2015 (1841) Sprayer Automatic Spray Machine: Printed Date/Time: 02/24/2019 (0193) PAGE 1 Signed Report Fredo Moffett MD IMG DIAGNOSTIC IMAGING ORDER MEAGAN Final Result documented in this encounter Visit Diagnoses Not on filedocumented in this encounter Care Teams Body Trimmer Upholsterer Relationship Specialty Start Date End Date Erich Sethi MD [address] [place] [address] [phone] PCP - General 11/12/14 03/11/15 Sai Garg MD [address] [place] [address] [phone] PCP - General 03/12/15 11/04/19 documented as of this encounter
--- OUTSIDE RECORDS SUMMARY | 2024-08-06 14:45 | XMS_ITS | Encounter Summary ---
Author Organization [facility] Address [address] [place] [address] Care Team Providers Care Building Mechanic Name Role Phone Sai Garg MD Primary Care Provi glynn Encounter Details Date Type Department Care Team (Late st Contact Info) Description 06/02/2015 Historical Results Only [facility] Radiology Results [address] [place] [address] Marcelino Riojas MD [address] [place] [phone] Social History Tobacco Use Types [...] MD ? CC: ? Transcribed Date/Time: 06/02/2015 (8724) ? Blister Packing Machine Tender: ? Printed Date/Time: 02/25/2019 (5184) ? PAGE 1 ? Signed Report ? [...] Orville Marvin MD CC: Transcribed Date/Time: 06/02/2015 (1694) Blister Packing Machine Tender: Printed Date/Time: 02/25/2019 (9634) PAGE 1 Signed Report us Marcelino Josue [...] CC: ? Transcribed Date/Time: 06/02/2015 (1147) ? Blister Packing Machine Tender: ? Printed Date/Time: 02/25/2019 (0734) ? PAGE 1 ? Signed Report ? [...] Vitale MD CC: Transcribed Date/Time: 06/02/2015 (1147) Blister Packing Machine Tender: Printed Date/Time: 02/25/2019 (0550) PAGE 1 Signed Report us Marcelino Riojas [...] CC: ? Transcribed Date/Time: 06/02/2015 (0927) ? Blister Packing Machine Tender: ? Printed Date/Time: 02/25/2019 (1114) ? PAGE [...] Marvin MD CC: Transcribed Date/Time: 06/02/2015 (0927) Blister Packing Machine Tender: Printed Date/Time: 02/25/2019 (1844) PAGE 1 Signed Report us Marcelino Riojas [...] CC: ? Transcribed Date/Time: 06/02/2015 (925) ? Blister Packing Machine Tender: ? Printed Date/Time: 02/25/2019 (5136) ? PAGE 1 ? Signed Report ? [...] Marvin MD CC: Transcribed Date/Time: 06/02/2015 (925) Blister Packing Machine Tender: Printed Date/Time: 02/25/2019 (6999) PAGE 1 Signed Report us Marcelino Josue Riojas MD IM DIAGNOSTIC IMAGING [facility] Final Result documented in this encounter Visit Diagnoses Not on filedocumented in this encounter Care Teams Building Mechanic Relationship Specialty Start Date End Date Sai Garg MD [address] [place] [address] [phone] PCP - General 03/12/15 11/04/19 documented as of this encounter
--- OUTSIDE RECORDS SUMMARY | 2024-08-06 14:45 | XMS_ITS | Encounter Summary ---
Author Organization [facility] Address [address] [place] [address] Care Team Providers Care Hand Sander Name Role Phone Sai Garg MD Primary Care Provi glynn Encounter Details Date Type Department Care Team (Late st Contact Info) Description 06/01/2015 Historical Results Only [facility] Radiology Results [address] [place], [place] [phone] Greta Gonzalez, [address] [place] [address] Social History Tobacco Use Types [...] CC: ? Transcribed Date/Time: 06/01/2015 (1539) ? Steel Post Installer Supervisor: HIS.[email or web address] ? Printed Date/Time: 02/25/2019 (1114) ? [...] Vitale MD CC: Transcribed Date/Time: 06/01/2015 (1539) Steel Post Installer Supervisor: Printed Date/Time: 02/25/2019 (3711) PAGE 1 Signed Report us Greta Gonzalez DO IMG MRI ORDERABLES Final Re sult documented in this encounter Visit Diagnoses Not on filedocumented in this encounter Care Teams Hand Sander Relationship Specialty Start Date End Date Sai Garg MD [address] [place] [phone] PCP - General 03/12/15 11/04/19 documented as of this encounter
--- OUTSIDE RECORDS SUMMARY | 2024-08-06 14:45 | XMS_ITS | Encounter Summary ---
Author Organization [facility] Address [address] [place] [address] Care Team Providers Care Laundrette Owner Name Role Phone Erich Sethi MD Primary Care Provider [phone] Sai Garg MD Primary Care Provi glynn Encounter Details Date Type Department Care Team (Late st Contact Info) Description 01/14/2015 Historical Results Only [facility] [address] [place], [place] [address] Sai Garg MD [address] [place] [phone] Social History Tobacco Use Types Packs/Day [...] CC: ? Transcribed Date/Time: 01/14/2015 (1133) ? Vector Control Assistant: JENNY ? Printed Date/Time: 02/18/2019 (1035) ? [...] [place] MD CC: Transcribed Date/Time: 01/14/2015 (1133) Vector Control Assistant: JENNY Printed Date/Time: 02/18/2019 (2515) PAGE 2 Signed Report us Sai Hernández MD IMG CT ORDERABLES F inal Result documented in this encounter Visit Diagnoses Not on filedocumented in this encounter Care Teams Laundrette Owner Relationship Specialty Start Date End Date Erich Sethi MD [address] [place] [address] [phone] PCP - General 11/12/14 03/11/15 Sai Garg MD [address] [place] [address] [phone] PCP - General 03/12/15 11/04/19 documented as of this encounter
--- OUTSIDE RECORDS SUMMARY | 2024-08-06 14:45 | XMS_ITS | Encounter Summary ---
Author Organization [facility] Address [address] [place] [address] Care Team Providers Care Muffler Hand Name Role Phone Erich Sethi MD Primary Care Provider +1 [phone] Encounter Details Date Type Department Care Team (Latest Contact Info) Description 03/11/2015 11:58 EDT - 03/11/2015 23:59 EDT Hospital Encounter [facility] [address] [place] [address] Unknown, Provider, MD Discharge Disposition: Home or [...] Code Departure Means Destination Home or Self Penitentiary documented in this encounter Plan of Treatment Not on file documented as of this encounter Visit Diagnoses Not on filedocumented in this encounter Care Teams Muffler Hand Relationship Specialty Start Date End Date Erich Sethi MD [address] [place] [address] [phone] PCP - General 11/12/14 03/11/15 documented as of this encounter
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
--- OUTSIDE RECORDS SUMMARY | 2024-08-06 14:45 | XMS_ITS | Clinical Summary ---
Author Organization [facility] Address [address] [place] [address] Care Team Providers Care Market Research Senior Project Manager Name Role Phone Unavailable Primary Care Provider [...] bipolar GERD (gastroesophageal reflux disease) 5 Seizures ([facility]) 02/23/2015 NSTEMI (non-ST elevated myocardial infarction) ( [facility]) 01/20/2014 ETOH abuse 01/20/2014 NSTEMI (non-ST elevated myocardial infarction) ( [facility]) 01/02/2014 Chronic right shoulder pain [...] Hyperlipidemia COPD (chronic obstructive pu lmonary disease) ([facility]) Multiple injuries of head ETOH abuse Bipolar disorder ([facility]) Chronic right shoulder pain 07/21/2012 [...] 02/23/2015 Review Of Systems Adverse Effects 02/23/2015 [place] Prescription Monitor ing System 02/23/2015 Urine Drug [...] Final Re sult [facility] [address] [place] [address] * LIPID PROFILE (INCLUDES CHOLESTEROL, TRIGLYCERIDES, HDL, LDL) (01/19/2014 5:40 EDT) Cholesterol 162 mg/dl [facility] Comment: Desirable:<200 Borderline High:200-239 High:>if=671 Triglycerides 89 mg/dl [facility] Comment: Normal:<150 Borderline High:150-199 High:200-499 Very High:>kq=674 HDL 102 mg/dl [facility] Comment: Low:<40 Normal:40-60 Desirable: >60 LDL, Calculated 42 mg/dl [facility] Comment: Optimal:<100 Near Optimal:100-129 Borderline High:130-159 High:160-189 Very High:>nc=057 Chol/HDL Ratio 1.6 ULISES [facility] Fasting? Unknown [facility] Non HDL Cholesterol 60 mg/dl [facility] Comment: Desirable:<130 Borderline:130-159 High: 160-189 Very High: >vf=052 Blood specimen (specimen) 01/19/2014 5:40 EDT 01/19/2014 5:55 EDT us Sridevi Alvarez MD CHEMISTRY & BLOOD GAS ORDERABL ES Final Result [facility] [address] [place] [address] from Last 3 Months or Most Recently Relevant to Health Maintenance Advance Directives For more information, please contact: [phone] * Full Code (Latest Code Status on [...]
--- OUTSIDE RECORDS SUMMARY | 2024-08-06 14:46 | XMS_ITS | Encounter Summary ---
Author Organization [facility] Address [address] [place] [address] Care Team Providers Care Cottage Attendant Name Role Phone Sai Garg MD Primary Care Provi glynn Reason for Visit * Reason Onset Date Comments Appointment Related 02/19/2014 NO SHOW Encounter Details Date Type Department Care Team (Late st Contact Info) Description 02/19/2014 Telephone [facility] Cardiology - [address] [place] [address] Gala Campbell, CHARY [address] [facility] [address] [place] [phone] Appointment Related (NO SHOW) Social [...] on filedocumented in this encounter Care Teams Cottage Attendant Relationship Specialty Start Date End Date Sai Garg MD [address] [place] [phone] PCP - General 01/03/14 11/11/14 documented as of this encounter
--- OUTSIDE RECORDS SUMMARY | 2024-08-06 14:46 | XMS_ITS | Encounter Summary ---
Author Organization [facility] Address [address] [place] [address] Care Team Providers Care Livestock Ranch Hand Name Role Phone Sai Garg MD Primary Care Provi glynn Reason for Referral * Follow Up (Routine) - Closed Specialty Diagnoses / Procedures Referred By Christin connelly Referred To Contact Diagnoses Chest pain Nolan Carmona MD Phone: tel: fax: Referral ID Status Reason Start Date Expiration Date V isits Requested Visits Authorized [id number] Closed Continuity of Care 04/03/2014 1 1 Question Answer Reason for Request: Pt has Chest pain that is muscloskeletal in origin (no objective evidence of OK) and would benefit from following w PCP following d/c from [facility]. Comments Pt has follow up appointment w Dr. Jose E Mason on Sunday, April 13 [facility] [address], [place] [address] Encounter Details Date Type Department Care Team (Late st Contact Info) Description 04/03/2014 2:36 EDT - 04/03/2014 15:33 EDT Hospital Encounter [facility] Cardiac/Telemetry Unit [address], [place] [id number] Ravi Costello MD [address] [phone] Golden Quintero MD [address] [phone] Chest pain (Primary Dx); ETOH abuse; CAD [...] HLD, mood disorder who was [facility] bypolice due to complaint of Chest Pain which radiated to left arm and leg and was worst w exertion and position change. On arrival, he was found to have a mildly elevated Troponin of 0.2, and EtOH level of greater than 400. He was given ASA, Ticagrelor, and heparin and transferred to [facility] for further evaluation. At [facility] troponin was negative and on EKG non-specific [...] admission Procedure Component Value Units Date/Time TSH [[id number]] Collected: 04/03/14309 Lab Status: In process Updated: [...] Jose E Mason on Sunday, April 13 [facility] [address] [place] [id number] Follow-Up Labs and Tests: Attestation statement::I have [...] in this encounter Progress Notes * Lisbeth Lpoez, RN - 04/03/2014 7861 EDT Discharge Note: D/C home on 04/03/2014 without home health services. Taxi voucher provided. Luna Lopez RN #[id number] * Lisbeth Lopez, NING - 04/03/2014 1125 [...] Primary Care Provider: Sai Garg MD Pharmacy: [facility] LIVING ARRANGEMENTS AND ACCESSIBILITY ISSUES: Other: Are there any home access issues? What in home social supports are available to the patient? none ADVANCED DIRECTIVES, POA &/or COLST IN PLACE: No CULTURAL, CATHOLIC and/or LANGUAGE factors affecting health care/discharge planning:: N/A FUNCTIONAL & PSYCHOSOCIAL INFORMATION: Patient is independent. We discussed his alcohol dependence. Patient again declining offers of rehab. States he needs to find housing before winter. He just moved to [place] one week ago and hasn't been in contact with the local social media assistant office MEDICAL INSURANCE IN PLACE: Yes Medicaid [...] Notified him, plan will be transport to [facility] to lease picker meds, then he can walk to [...] data in the 24 hours ending 04/03/14 0745 Physical Exam: General appearance: Pt appears uncomfortable, [...] Date HGBA1C 6.0 01/18/2014 ECHO: Pending EKG: [facility] ekg with no st changes (4865) 0900 - No changes from previous Assessment: [...] clinical improvement. Nolan Carmona MD PGY-1 Pager #[phone] documented in this encounter H&P Notes * [...] ticagrelor, and heparin gtt and transferred to [facility]. He says he has continued pain and [...] clinical course Rafa Bright MD Pager # [phone] 04/03/2014 3:17 Fellow addendum - 58 y/o [...] Echo. D/W DR Quintero. Kiley Moran MD asp developer - PGY 4 Pager - [phone]. CP syndrome is clearly musculoskeletal. He does not have evidence of OK by troponin evaluation. He has demonstrated noncompliance and so will avoid invasive evaluation/stent placement because it places patient at greater risk of complications (stent thrombosis). Plan on medical therapy. Attestation statement::I have seen and examined this patient. I agree with the plan as outlined above. Ravi Costello MD documented in this encounter Miscellaneous Notes * Plan of Care - Eleonoar Song RN - 04/03/2014 1321 EDT Problem: [...] wheelchair. Pt will transport by taxi to [facility] to lease picker meds, and then he will walk home. MD Carmona aware. Eleonora Song RN 04/03/2014 * Plan of Care - Navarro Leroy RN - 04/03/2014 0718 EDT Problem: HOSPITAL ORIENTATION/SAFETY Goal: Oriented To Hospital Environment Outcome: Completed Date Met: 04/03/14 D: Patient arrived to [place] [address]. Vital signs noted, and tele applied. Patient [...] EDT) 04/10/2014 6:51 EDT us Scan 2 Case Management Manager PROCEDURE/MINOR SURGICAL OR DERABLES Final Result * ECG REPORT - SCANNED (04/07/2014 17:40 EDT) 04/07/2014 17:4 0 EDT us Scan 2 Case Management Manager PROCEDURE/MINOR SURGICAL OR DERABLES Final Result * ECG REPORT - SCANNED (04/07/2014 11:58 EDT) 04/07/2014 11:5 8 EDT us Scan 2 Case Management Manager PROCEDURE/MINOR SURGICAL OR DERABLES Final Result * ECHOCARDIOGRAM LIMITED (04/03/2014 11:29 EDT) Anatomical Region Laterality Modality Other 04/03/2014 11:2 9 EDT Narrative 04/03/2014 12:04 EDT *Interpreting Group:* *[facility]* [address] [place] [address] *STUDY CONCLUSIONS* Summary: 1. Left ventricle: The [...] ?Golden Quintero MD ATTENDING ?Ravi Costello MD SHOWER MAID ??Chichi Manning REFERRING ?Sai Garg PERFORMING ?? [facility], ORDERING ? Almas-Abimael Mata *PROCEDURE DATA* Procedure information: ??This study was interpreted by [facility] at [facility]. ??Study status: ??Routine. Transthoracic echocardiography. ??M-mode, limited [...] procedure well. *INDICATIONS AND HISTORY* Indications: ?? OK - nontransmural - acute 410.71. History: ?PMH: [...] 04/03/2014 12:04 Procedure Note 04/03/2014 *Interpreting Group:* *[facility]* [address] [place] [address] *STUDY CONCLUSIONS* Summary: 1. Left ventricle: The [...] Golden Quintero MD ATTENDING Ravi Costello MD SHOWER MAID Chichi Manning Anthony R PERFORMING [facility], ORDERING Abimael Matos *PROCEDURE DATA* Procedure information: This [facility] was [facility]. Study status: Routine.Transthoracic echocardiography. M-mode, limited 2D, limited spectral Doppler, and color Doppler. A Transthoracic Echocardiogram was performed. The parasternalwindow was low, thus no M-mode measurements were recorded. Scanning was performedfrom the parasternal, apical, and subcostal acoustic windows. Images wereobtained using a Carola IE33 3 cardiac ultrasound machine. Image quality wasadequate. Study completion: The patient tolerated the procedure well. *INDICATIONS AND HISTORY* Indications: OK - nontransmural - acute 410.71. History: PMH: [...] EDT) Amphetamine Screen, Urine Negative screen. [facility] Comment: Confirmation testing available upon request. [...] Final Re sult [facility] [address] [place] [address] * EKG 12-LEAD (04/03/2014 8:38 EDT) 04/03/2014 8:38 EDT Narrative [facility] EKG - 04/08/2014 16:55 EDT ?[facility] ? Test Date: ?2014-04-03 Pat Name: ? JIMENEZ BARKLEY ? Department: ?? Nery Mackay ? Room: ? MW530 Gender: ? M ?Helpdesk Manager: ?? [id number] : ?1955 ? Requested By: NOLAN CARMONA MD Order Number: [id number] ? Reading : ?? ADRIEL HENDERSON MD ? Measurements Intervals ?[place] ? Rate: ? 64 ? P: ?52 MI: ? 148 ?QRS: ?74 QRSD: ? 95 [...] Date: 2014-04-03 Pat Name: JIMENEZ BARKLEY Department: [place] [address] Room: [facility] Gender: M Helpdesk Manager: [id number] : 1955 Requested By: NOLAN CARMONA MD Order Number: [id number] Reading MD: ADRIEL HENDERSON MD Measurements Intervals [place] Rate: 64 P: 52 MI: 148 QRS: 74 QRSD: 95 T: 75 QT: 428 QTc: 442 Interpretive Statements SINUS RHYTHM NONSPECIFIC ST & T-WAVE ABNORMALITY Compared to ECG 04/03/2014 03:13:35 T-wave abnormality now present I reviewed the tracing and agreed or edited the report. ElectronicallySigned On 04-08-14 16:55:49 EDT by ADRIEL HENDERSON MD. us Nolan Carmona MD CARDIAC ECG ORDERABLES Final Res ult Performing Organization Address [facility] Co de Phone Number [facility] EKG * (ABNORMAL) PTT (04/03/2014 6:03 EDT) PTT 69(H) 26 - 37 secs [facility] Comment:Therapeutic Heparin range: 65-100 seconds Blood specimen (specimen) 04/03/2014 6:03 EDT 04/03/2014 7:22 EDT us Rafa Bright MD HEMATOLOGY & PF4 ORDERABLES Fi nal Result Performing Organization Address [facility] Co de Phone Number [facility] [address] [place] [address] * INPATIENT ADD-ON (04/03/2014 5:15 EDT) Tests to be added MAGNESIUM [facility] Number for problems Not Given [facility] Accession number [id number] [facility] 04/03/2014 5:15 EDT 04/03/2014 5:15 EDT us Rafa Bright MD HEMATOLOGY & PF4 ORDERABLES Fi nal Result Performing Organization Address City/[facility] Co de Phone Number [facility] [address] [place] [address] * INPATIENT ADD-ON (04/03/2014 3:40 EDT) Tests to be added PLEASE ADD DIFF TO HEMAGRAM [facility] Number for problems Not Given [facility] Accession number Not Given [facility] Comment: (Note) CBCDF ALREADY ORDERED 04/03/2014 3:40 EDT 04/03/2014 3:40 EDT Rafa Bright MD HEMATOLOGY & PF4 ORDERABLES Fi nal Result Performing Organization Address [facility] Co de Phone Number [facility] [address] [place] [address] * INPATIENT ADD-ON (04/03/2014 3:20 EDT) Tests to be added AST, ALT, ALK PHOS, TBILI, TSH [facility] Number for problems Not Given [facility] Accession number [id number] [facility] 04/03/2014 3:20 EDT 04/03/2014 3:24 EDT Rafa Bright MD HEMATOLOGY & PF4 ORDERABLES Fi nal Result Performing Organization Address [facility] Co de Phone Number [facility] [address] [place] [address] * INPATIENT ADD-ON (04/03/2014 3:20 EDT) Tests to be added GLUCOSE, SERUM [facility] Number for problems Not Given [facility] Accession number [id number] [facility] 04/03/2014 3:20 EDT 04/03/2014 3:24 EDT us Rafa Bright MD HEMATOLOGY & PF4 ORDERABLES Fi nal Result Performing Organization Address City/[facility]/ZIP Co de Phone Number [facility] [address] [place] [address] * INPATIENT ADD-ON (04/03/2014 3:20 EDT) Tests to be added HEMOGLOBIN A1C [facility] Number for problems Not Given [facility] Accession number [id number] [facility] 04/03/2014 3:20 EDT 04/03/2014 3:23 EDT us Rafa Bright MD HEMATOLOGY & PF4 ORDERABLES Fi nal Result [facility] [address] [place] [address] * EKG 12-LEAD (04/03/2014 3:13 EDT) 04/03/2014 3:13 EDT Narrative [facility] EKG - 04/06/2014 8:40 EDT ?[facility] ? Test Date: ?2014-04-03 Pat Name: ? JIMENEZ BARKLEY ? Department: ?? Gabriel 5 ? Room: ? MW530 Gender: ? M ?Helpdesk Manager: ?? [id number] : ?1955 ? Requested By: RAFA BRIGHT MD Order Number: [id number] ? Reading : ?? SHMUEL MEJIA MD ? Measurements Intervals ?[place] ? Rate: ? 77 ? P: ?-40 MI: ? 144 ?QRS: ?73 QRSD: ? 94 [...] Date: 2014-04-03 Pat Name: JIMENEZ BARKLEY Department: [place] [address] Room: [facility] Gender: M Helpdesk Manager: [id number] : 1955 Requested By: RAFA BRIGHT MD Order Number: [id number] Reading MD: SHMUEL CERVANTES Measurements Intervals [place] Rate: 77 P: -40 MI: 144 QRS: 73 QRSD: 94 T: 76 QT: 400 QTc: 453 Interpretive Statements SINUS RHYTHM Normal ECG. Compared to ECG 01/18/2014 00:50:23 No significant change I reviewed the tracing and agreed or edited the report. ElectronicallySigned On 04-06-14 08:40:11 EDT by SHMUEL MEJIA MD. Rafa Bright MD CARDIAC ECG ORDERABLES Final R esult [facility] EKG * MAGNESIUM (04/03/2014 3:10 EDT) Pathologist [facility] Magnesium 1.8 1.7 - 2.8 mg/dl [facility] 04/03/2014 3:10 EDT 04/03/2014 3:14 EDT Rafa Bright MD CHEMISTRY & BLOOD GAS ORDERABL ES Final Result Performing Organization Address [facility] Co de Phone Number [facility] [address] [place] [address] * (ABNORMAL) DIFFERENTIAL (04/03/2014 3:10 EDT) Pathologist [facility] Neutrophils 57.0 45.5 - 79.7 [...] ORDERABLES Fi nal Result Performing Organization Address [facility] Co de Phone Number [facility] [address] [place] [address] * (ABNORMAL) HEMAGRAM (04/03/2014 3:10 EDT) WBC [...] ORDERABLES Fi nal Result Performing Organization Address [facility] de Phone Number [facility] [address] [place] [address] * TSH (04/03/2014 3:10 EDT) TSH 3.46 0.35 - 5.00 uIU/ml [facility] 04/03/2014 3:10 EDT 04/03/2014 3:14 EDT us Rafa Bright MD CHEMISTRY & BLOOD GAS ORDERABL ES Final Result Performing Organization Address [facility] Co de Phone Number [facility] [address] [place] [address] * BILIRUBIN, TOTAL (04/03/2014 3:10 EDT) Bilirubin, Total <0.5 <1.4 mg/dl [facility] 04/03/2014 3:10 EDT 04/03/2014 3:14 EDT Rafa Bright MD CHEMISTRY & BLOOD GAS ORDERABL ES Final Result Performing Organization Address [facility] de Phone Number [facility] [address] [place] [address] * (ABNORMAL) GLUCOSE, SERUM (04/03/2014 3:10 EDT) Glucose, Serum 136(H) 70 - 100 mg/dl [facility] 04/03/2014 3:10 EDT 04/03/2014 3:14 EDT us Rafa Bright MD CHEMISTRY & BLOOD GAS ORDERABL ES Final Result Performing Organization Address [facility] Phone Number [facility] [address] [place] [address] * HEMOGLOBIN A1C (04/03/2014 3:10 EDT) Hemoglobin [...] ORDERABL ES Final Result Performing Organization Address [facility] de Phone Number [facility] [address] [place] [address] * (ABNORMAL) AST (04/03/2014 3:10 EDT) AST 274(H) 15 - 46 U/L [facility] 04/03/2014 3:10 EDT 04/03/2014 3:14 EDT us Rafa Bright MD CHEMISTRY & BLOOD GAS ORDERABL ES Final Result Performing Organization Address [facility] de Phone Number [facility] [address] [place] [address] * (ABNORMAL) ALT (04/03/2014 3:10 EDT) ALT 292(H) 21 - 72 U/L [facility] 04/03/2014 3:10 EDT 04/03/2014 3:14 EDT us Rafa Bright MD CHEMISTRY & BLOOD GAS ORDERABL ES Final Result Performing Organization Address [facility] de Phone Number [facility] [address] [place] [address] * ALKALINE PHOSPHATASE (04/03/2014 3:10 EDT) Total Alkaline Phosphatase 84 38 - 126 U/L [facility] 04/03/2014 3:10 EDT 04/03/2014 3:14 EDT us Rafa Bright MD CHEMISTRY & BLOOD GAS ORDERABL ES Final Result Performing Organization Address [facility] de Phone Number [facility] [address] [place] [address] * (ABNORMAL) PTT (04/03/2014 3:10 EDT) PTT 97(H) 26 - 37 secs [facility] Comment:Therapeutic Heparin range: 65-100 seconds Blood specimen (specimen) 04/03/2014 3:10 EDT 04/03/2014 3:14 EDT aRfa Bright MD HEMATOLOGY & PF4 ORDERABLES Fi nal Result Performing Organization Address [facility] de Phone Number [facility] [address] [place] [address] * PROTIME (04/03/2014 3:10 EDT) Pro Time [...] ORDERABLES Fi nal Result Performing Organization Address [facility] de Phone Number [facility] [address] [place] [address] * CREATININE (04/03/2014 3:10 EDT) Creatinine 0.66 0.66 - 1.25 mg/dl [facility] GFR, Calculated >60 >60 ml/min/1.7 3m2 [facility] Blood specimen (specimen) 04/03/2014 3:10 EDT 04/03/2014 3:14 EDT Result [facility] Rafa Bright MD CHEMISTRY & BLOOD GAS ORDERABL ES Final Result Performing Organization Address [facility] de Phone Number [facility] [address] [place] [address] * (ABNORMAL) BUN (04/03/2014 3:10 EDT) BUN 9(L) 10 - 26 mg/dl [facility] Blood specimen (specimen) 04/03/2014 3:10 EDT 04/03/2014 3:14 EDT us Rfaa Bright MD CHEMISTRY & BLOOD GAS ORDERABL ES Final Result Performing Organization Address [facility] de Phone Number [facility] [address] [place] [address] * ELECTROLYTES (04/03/2014 3:10 EDT) Sodium 143 [...] ORDERABL ES Final Result Performing Organization Address [facility] de Phone Number [facility] [address] [place] [address] * CK MB WITH TOTAL CK (04/03/2014 3:10 EDT) CK 133 0 - 250 U/L [facility] MB 1.90 <4.21 ng/ml [facility] Blood specimen (specimen) 04/03/2014 3:10 EDT 04/03/2014 3:14 EDT Rafa Bright MD CHEMISTRY & BLOOD GAS ORDERABL ES Final Result Performing Organization Address [facility] de Phone Number [facility] [address] [place] [address] * TROPONIN I (04/03/2014 3:10 EDT) Troponin I (ng/mL) <0.034 <0.034 ng/ml [facility] Blood specimen (specimen) 04/03/2014 3:10 EDT 04/03/2014 3:14 EDT us Rafa Bright MD CHEMISTRY & BLOOD GAS ORDERABL ES Final Result Performing Organization Address City/[facility] Co de Phone Number [facility] [address] [place] [address] * (ABNORMAL) ETHANOL, BLOOD (04/03/2014 3:10 EDT) Ethanol 230(H) <10 mg/dl [facility] Blood specimen (specimen) 04/03/2014 3:10 EDT 04/03/2014 3:14 EDT us Rafa Bright MD CHEMISTRY & BLOOD GAS ORDERABL ES Final Result Performing Organization Address [facility] Co de Phone Number [facility] [address] [place] [address] documented in this encounter Visit Diagnoses Diagnosis Chest pain- Primary Chest pain, unspecified Chest pain Chest pain, unspecified ETOH abuse Alcohol abuse, unspecified CAD (coronary artery disease) Coronary atherosclerosis of unspecified type of vessel, [place] or graft ETOH abuse Alcohol abuse, unspecified [...] 03/17 documented in this encounter Care Teams Livestock Ranch Hand Relationship Specialty Start Date End Date Sai Garg MD [address] [place] [phone] PCP - General 01/03/14 11/11/14 documented as of this encounter
--- OUTSIDE RECORDS SUMMARY | 2024-08-06 14:46 | XMS_ITS | Encounter Summary ---
Author Organization [facility] Address [address] [place] [address] Care Team Providers Care Bark Spudder Name Role Phone Sai Garg MD Primary Care Provi glynn Reason for Visit * Reason Onset Date Comments Appointment Related 02/02/2014 PO Encounter Details Date Type Department Care Team (Late st Contact Info) Description 02/02/2014 Telephone [facility] Cardiology - [facility] [address] [place] [address] Gala Campbell, CHARY [address] [facility] [address] [place] [phone] Appointment Related (POH) Social History [...] on filedocumented in this encounter Care Teams Bark Spudder Relationship Specialty Start Date End Date Sai Garg MD [address] [place] [phone] PCP - General 01/03/14 11/11/14 documented as of this encounter
--- OUTSIDE RECORDS SUMMARY | 2024-08-06 14:46 | XMS_ITS | Encounter Summary ---
Author Organization [facility] Address [address] [place] [address] Care Team Providers Care Hotel Concierge Name Role Phone Sai Garg MD Primary Care Provi glynn Reason for Referral * (Routine) - Closed Specialty Diagnoses / Procedures Referred By Contac t Referred To Contact Juliocesar Schultz MD Phone: tel: fax: Referral ID Status Reason Start Date Expiration Date V isits Requested Visits Authorized [id number] Closed Specialty Services Required 01/23/2014 1 1 * (Routine) - Closed Specialty Diagnoses / Procedures Referred By Contac t Referred To Contact Juliocesar Schultz MD Phone: tel: fax: Referral ID Status Reason Start Date Expiration Date V isits Requested Visits Authorized [id number] Closed Specialty Services Required 01/23/2014 1 1 * (Routine) - Closed Specialty Diagnoses / Procedures Referred By Contac t Referred To Contact Juliocesar Schultz MD Phone: tel: fax: Referral ID Status Reason Start Date Expiration Date V isits Requested Visits Authorized [id number] Closed Specialty Services Required 01/23/2014 1 1 * Consult (Routine) - Closed Specialty Diagnoses / Procedures Referred By Contac t Referred To Contact Diagnoses ETOH abuse NSTEMI (non-ST elevated myocardial infarction) ([facility]) Juliocesar Schultz MD Phone: tel: fax: Referral ID Status Reason Start Date Expiration Date V isits Requested Visits Authorized [id number] Closed Specialty Services Required 01/22/2014 1 1 Question Answer Detention Referral - Assessment: CP Status Detention Referral - Disease Mgmt and Education about: Medication Mgmt Physical therapy is needed for: Evaluation Encounter Details Date Type Department Care Team (Late st Contact Info) Description 01/18/2014 0:04 EDT - 01/23/2014 18:19 EDT Hospital Encounter [facility] Cardiac/Telemetry Unit [address] [place] [address] [phone] Golden Rutherford MD [address] [facility], Level [address] [place] [address] NSTEMI (non-ST elevated myocardial infarction) ([facility]) (Primary Dx); Delirium tremens ([facility]); ETOH abuse; Alcohol withdrawal ([facility]) Discharge Disposition: Home or Self [...] Patient: Follow-Up Labs and Tests: Home Health Mtlz-Rf-Xkll Encounter: I certify that this patient is under my care and that I, or a Medicare authorized non-physician provider (WELDING MACHINE OPERATOR GAS or PA) working with me, had a shmp-ky-ybhp encounter with this patient on 01/23/2014 that was in whole or in part related to the reason the patient needs home health care. The findings of thisencounter indicate that the patient requires shelter or therapist services for the reasons listed below. group home services: - are required to train the [...] 01/22/2014 0743 EDT YOUR CHRONIC CARE INITIATIVE POOL COORDINATOR: Lisette Garcia [phone] Cosigned by Juliocesar Schultz MD at 01/22/2014 [...] with Home Health Services. Lisbeth Lopez RN #[id number] * Alisson Welsh, PT - 01/23/2014 1105 EDT Rehabilitation [facility]rap[facility] Physical Therapy Contact Note Date of Service: 01/23/2014 PT Referral received. Chart reviewed yesterday. Checked in this morning to complete evaluation. Patient just returning to room after [facility]- Discussed mobility status with RN who [...] EDT * Alisson Welsh, PT - 01/22/2014 9037 EDT [facility]rap[facility] Physical Therapy Contact Note Date of [...] withdrawal. Current Living Arrangements: Patient lives in [place] Current Social, Health Care and Community Supports: [...] Met with patient and explained role. Plan [facility] tomorrow if available. Once stable he will d/c home with home health services for CP assessment, med compliance and PT (patient c/o weak legs and slightly dizzy). [facility] can transport. CM will follow. Lisbeth Lopez RN AC #[id number] * Juliocesar Schultz MD - 01/22/2014 0901 [...] course Juliocesar Schultz MD 01/22/2014 9:01 PGY1 #2537 Cosigned by Chico Posey MD at 01/25/2014 [...] uric acid ETOH Abuse: DTs resolved - CIAL protocol - daily MVM, folic acid and [...] course Juliocesar Schultz MD 01/21/2014 8:00 PGY1 #9280 Reviewed with cards fellow. Pt seen and examined. May be able to eval pt via cardiolite and risk stratify. Pt seen and examined and otherwise as above. Chico Posey MD Cardiology Pager [phone] [facility] * Chico Posey MD - 01/20/2014 0908 [...] course Juliocesar Schultz MD 01/20/2014 9:08 PGY1 #4900 Pt seen and examined. Agree with above. Still a bit agitated. Thoughts wonder, some difficulty with place and time/yr VSS Agree with stopping heparin. Arrangements underway for medicine eval. Will defer cath for now and reconsider each am depending on status. Chico Posey MD Cardiology Pager [phone] [facility] * Juliocesar Schultz MD - 01/19/2014 4270 EDT Cards update note - continued to have DTs, requiring max dosing of Valium per CIWA, give additional prn Valium as patient is protecting airway if agitated - labetalol 20 mg q4hr prn SBP >160 - clonidine 0.2 mg qdaily started as BP not controlled - hold off on [facility] until patient is no longer withdrawing - [...] also like us to send him to [facility] and scare him so he doesn't go back to drinking. Jimenez will call me later today with list of missing meds. I will follow up with Jimenez once his mental status has improved. Lisbeth Lopez RN [facility] #[id number] * Chico Posey MD - 01/19/2014 1138 EDT Cardiology progress note CC: CP Dx: [...] 1 Patch 1 Patch transdermal DAILY Sridevi Alvaerz MD 1 Patch at 01/19/14 1001 ??? [...] cath tomorrow. Chico Posey MD Cardiology Pager [phone] [facility] * Lisbeth Lopez RN - 01/19/2014 1009 EDT 01/19: Patient withdrawing, agitated and in restraints. No family/friends listed. Will wait until he's cleared to meet. Lisbeth Lopez RN [facility] #[id number] * Gerhard Willett MD - 01/18/2014 1481 EDT Cardiology progress note CC: CP Dx: [...] Trend CE's - NPO at midnight for [facility] tomorrow ETOH Abuse: - CIAL protocol - daily MVM, folic acid and [...] Notes * Golden Ellison MD - 01/17/2014 5018 EDT Cardiology Admission H&P Admission Date: 01/18/2014 [...] [facility] Currently, he reports continued 8/10 left sided chest pain which is unrelieved by morphine and by any of the interventions at the OSH. He reports his last drink containing alcohol was at 9am this morning and he had 3 beers. Prior Cardiac Imaging: [facility] 12/2013: Diagnostic Cardiac Study Results Left [...] on file Social History Narrative Lives in [place], [place] in a trailer. Lives with a [...] Pending clinical course Above plan discussed with rotational moulding operator, Dr Wesley Alvarez MD PGY-3 # 0970 Patient seen and evaluated. Agree with findings [...] artery Procedure: He was brought to the [facility] Cardiac Catheterization Laboratory for the [...] is being treated with benzodiazepines on the [facility] protocol. Per the MAR history, the [...] for recommendations regarding management of alcohol withdrawal. [facility] Patient Active Problem List Diagnosis Date Noted [...] yesterday evening. Appears clinically stable - Continue CIAL protocol with medications. - Continue daily multivitamin, folic acid and thiamine supplementation - Check magnesium and phosphorous - No indication to transfer to medicine service at this time Thank you for this consult. We will sign off. Please call if new questions arise. Discussed with Medicine Attending, Dr Earle Alvarez MD PGY-3 # [id number] Medicine consult service I have reviewed the [...] discharge and every two hours while on OIL BURNER TECHNICIAN or epidural. D: patient complains of 6/10 [...] Uses call appropriately, Informed by MD that [facility] will take place tomorrow, 01/23. Met with Tar [place] Man. Action: Assessment completed, meds given. DC planning [...] withdrawal. Pt no longer scoring today, plan [facility] a.m. Pt sleeping, NAD, bed alarm [...] ambulate. Pt continues to have a 1:1 DRAWING HAND sitter. Response: Pt said he understood and [...] posy vest. Action: VS and assessment completed. DRAWING HAND sitter in the room with the Pt. [...] out of foot-end of bed, while wearing [place] vest. He disconnected IV and pulled off [...] Pt continues to be verbally abusive to DRAWING HAND sitter who was helping him sit up [...] Care - Lubna Gaines RN - 01/18/2014 0567 EDT Problem: FALL RISK Goal: Patient will [...] cleaned up, linens changed. R: Will CTM. [facility] RN * Plan of Care - Chico Corrales RN - 01/18/2014 5410 EDT Problem: CIRCULATORY STATUS Goal: Patient Has Stable Vital Signs And Fluid Balance Outcome: Ongoing Data: Patient arrived to [place] [address]. Patient is in NSR with a HR [...] ETOH abuse NSTEMI (non-ST elevated myocardial infarction) ([facility]) Ordered: 01/22/2014 PROVIDER FOLLOW-UP INSTRUCTIONS Outpatient Referral [...] 09/29/2015 13:2 4 EST us Scan 2 [employer] Administrator PROCEDURE/MINOR SURGICAL OR DERABLES Final Result * STRESS TEST - SCANNED (02/03/2014 9:21 EDT) Anatomical Region Laterality Modality Other 02/03/2014 9:21 EDT us Scan 2 Solar[employer] Administrator IMG OTHER IMAGING ORDERABLE S Final Result * INVASIVE CARDIOLOGY REPORT-SCANNED (01/27/2014 11:34 EDT) 01/27/2014 11:3 4 EDT us Scan 2 Solaris Administrator PROCEDURE/MINOR SURGICAL OR DERABLES Final Result * ECG REPORT - SCANNED (01/27/2014 11:34 EDT) 01/27/2014 11:3 4 EDT us Scan 2 Solaris Administrator PROCEDURE/MINOR SURGICAL OR DERABLES Final Result * ECG REPORT - SCANNED (01/27/2014 11:34 EDT) 01/27/2014 11:3 4 EDT us Scan 2 Solaris Administrator PROCEDURE/MINOR SURGICAL OR DERABLES Final Result * LEFT HEART CATH (01/23/2014 11:39 EDT) Anatomical Region Laterality Modality Other 01/23/2014 11:3 9 EDT Narrative 01/23/2014 19:48 EDT [address] [place] [address] Catheterization Laboratory Study Patient: Jimenez Barkley ? Study Date: ?01/23/2014 ?Accession #: ? [id number] : ? 1955 Diagnostic Attending: ??Elias Glass [...] after PCI. SUMMARY: 1. HPI and indications: Gbd-CD-bszvqhfz myocardial infarction. 2. 2nd obtuse marginal: Ostial lesion: There is a 55% stenosis. This lesion is ?? unchanged from a prior study. RECOMMENDATIONS: Patient management should include medical therapy. HISTORY: Prp-SN-dzuquwfg myocardial infarction. ??PMH: ?? Chronic lung disease. [...] Right radial artery access. A 6 FR/10 [employer] Sheath [place] SS .021 sheath was ?? advanced into [...] MD 2014-01-23 19:47 Procedure Note 01/23/[address] [place] [address] Catheterization Laboratory Study Patient: Jimenez Barkley Study [...] after PCI. SUMMARY: 1. HPI and indications: Sau-OW-rvlnkbxi myocardial infarction. 2. 2nd obtuse marginal: Ostial lesion: There is a 55% stenosis. Thislesion is unchanged from a prior study. RECOMMENDATIONS: Patient management should include medical therapy. HISTORY: Jhh-EQ-ppqdlqge myocardial infarction. PMH: Chronic lung disease.Functional status: [...] artery access. A 6 FR/10 [employer] Sheath [place] SS .021sheath was advanced into the vessel. [...] ORDERABL ES Final Result Performing Organization Address [facility] de Phone Number [facility] [address] [place] [address] * BUN (01/23/2014 6:20 EDT) BUN 18 10 - 26 mg/dl [facility] Blood specimen (specimen) 01/23/2014 6:20 EDT 01/23/2014 6:38 EDT Sridevi Alvarez MD CHEMISTRY & BLOOD GAS ORDERABL ES Final Result Performing Organization Address [facility] de Phone Number [facility] [address] [place] [address] * ELECTROLYTES (01/23/2014 6:20 EDT) Sodium 136 [...] ORDERABL ES Final Result Performing Organization Address [facility] de Phone Number [facility] [address] [place] [address] * (ABNORMAL) HEMAGRAM (01/23/2014 6:20 EDT) WBC [...] ORDERABLES Fi nal Result Performing Organization Address [facility] Co de Phone Number [facility] [address] [place] [address] * INPATIENT ADD-ON (01/22/2014 7:25 EDT) Tests to be added PHOSPHOROUS [facility] Number for problems M5 [facility] Accession number [id number] [facility] 01/22/2014 7:25 EDT 01/22/2014 7:26 EDT us Juliocesar Schultz MD HEMATOLOGY & PF4 ORDERABLE S Final Result Performing Organization Address [facility] Co de Phone Number [facility] [address] [place] [address] * PHOSPHORUS (01/22/2014 6:21 EDT) Phosphorus 4.5 2.5 - 4.5 mg/dl [facility] 01/22/2014 6:21 EDT 01/22/2014 6:59 EDT Sridevi Alvarez MD CHEMISTRY & BLOOD GAS ORDERABL ES Final Result Performing Organization Address [facility] Co de Phone Number [facility] [address] [place] [address] * MAGNESIUM (01/22/2014 6:21 EDT) Magnesium 1.7 1.7 - 2.8 mg/dl [facility] Blood specimen (specimen) 01/22/2014 6:21 EDT 01/22/2014 6:59 EDT Juliocesar Schultz MD CHEMISTRY & BLOOD GAS ORDE RABLES Final Result Performing Organization Address [facility] Co de Phone Number [facility] [address] [place] [address] * CREATININE (01/22/2014 6:21 EDT) Pathologist [facility] Creatinine 0.70 0.66 - 1.25 mg/dl [facility] GFR, Calculated >60 >60 ml/min/1.7 3m2 [facility] Blood specimen (specimen) 01/22/2014 6:21 EDT 01/22/2014 6:59 EDT Sridevi Alvarez MD CHEMISTRY & BLOOD GAS ORDERABL ES Final Result Performing Organization Address [facility] Co de Phone Number [facility] [address] [place] [address] * BUN (01/22/2014 6:21 EDT) Pathologist [facility] BUN 15 10 - 26 mg/dl [facility] Blood specimen (specimen) 01/22/2014 6:21 EDT 01/22/2014 6:59 EDT Sridevi Alvarez MD CHEMISTRY & BLOOD GAS ORDERABL ES Final Result Performing Organization Address [facility] Co de Phone Number [facility] [address] [place] [address] * (ABNORMAL) ELECTROLYTES (01/22/2014 6:21 EDT) Pathologist [facility] Sodium 136 136 - 145 mEq/L [facility] Potassium 4.1 3.5 - 5.0 mEq/L [facility] Chloride 104 96 - 110 mEq/L [facility] CO2 22(L) 24 - 32 mEq/L [facility] Blood specimen (specimen) 01/22/2014 6:21 EDT 01/22/2014 6:59 EDT Sridevi Alvarez MD CHEMISTRY & BLOOD GAS ORDERABL ES Final Result Performing Organization Address [facility] de Phone Number [facility] [address] [place] [address] * (ABNORMAL) HEMAGRAM (01/22/2014 6:21 EDT) Pathologist [facility] WBC 7.81 4.0 - 10.4 K/cmm JAMES [...] ORDERABLES Fi nal Result Performing Organization Address [facility] de Phone Number [facility] [address] [place] [address] * RIBS UNI 2 VIEWS LEFT (01/21/2014 [...] STRESS ? Room: ? Gender: ? M ?Bus Driver: ?[id number] : ?1955 ? Requested By: GISELLE PAYNE Order Number: [id number] ?Gwen CRAFT: ? Interpretive Statements Procedure Note 01/21/2014 For report of this Waveform, see associated Image Study. Jacob Eubanks Stress Test Date: 2014-01-21 Pat Name: JIMENEZ BARKLEY Department: STRESS Room: Gender: M Bus Driver: [id number] : 1955 Requested By: GISELLE PAYNE Order Number: [id number] Gwen CRAFT: Interpretive Statements Kenyon Sullivan MD CARDIAC NM ORDERABLES Final Result * NM CARDIAC SPECT STUDY (01/21/2014 9:53 EDT) Anatomical Region Laterality Modality Other 01/21/2014 9:53 EDT Narrative 01/21/2014 14:55 EDT *[facility]* [address] [place] [id number] *Interpreting Groups:* *[facility] and Department of Radiology* Myocardial [...] of this study was interpreted by Nuclear Construction Site Crossing Guard ??Germain Ayala. - The imaging portion of this study was interpreted by Nuclear Radiologist ??Aayush Carpenter. - The Stress ECG portion of this study was interpreted by Dr. Groves ?Demian. Electronically signed by Germain Ayala MD 01/21/2014 14:55 Procedure Note 01/21/2014 *[facility]iology [facility]* [address] [place] [id number] *Interpreting Groups:* *[facility] and Department [...] ACID [facility] Number for problems 16891 [facility] Accession number [id number] [facility] 01/21/2014 8:05 EDT 01/21/2014 8:06 EDT Juliocesar Schultz MD HEMATOLOGY & PF4 ORDERABLE S Final Result Performing Organization Address [facility] Co de Phone Number [facility] [address] [place] [address] * CK MB WITH TOTAL CK (01/21/2014 7:28 EDT) Pathologist [facility] CK 101 0 - 250 U/L [facility] MB 0.37 <4.21 ng/ml [facility] Blood specimen (specimen) 01/21/2014 7:28 EDT 01/21/2014 7:34 EDT us Kenyon Sullivan MD CHEMISTRY & BLOOD GAS ORDERA BLES Final Result Performing Organization Address [facility] de Phone Number [facility] [address] [place] [address] * INPATIENT ADD-ON (01/21/2014 6:45 EDT) [facility] Tests to be added MAGNESIUM [facility] Number for problems [address] [facility] Accession number [id number] [facility] 01/21/2014 6:45 EDT 01/21/2014 6:47 EDT Lexi Cade MD HEMATOLOGY & PF4 ORDERABLES Naomi l Result Performing Organization Address [facility] de Phone Number [facility] [address] [place] [address] * URIC ACID (01/21/2014 6:01 EDT) [facility] Uric Acid 4.1 3.9 - 9.0 mg/dl [facility] 01/21/2014 6:01 EDT 01/21/2014 6:16 EDT Sridevi Alvarez MD CHEMISTRY & BLOOD GAS ORDERABL ES Final Result Performing Organization Address [facility] Co de Phone Number [facility] [address] [place] [address] * (ABNORMAL) MAGNESIUM (01/21/2014 6:01 EDT) Magnesium 1.6(L) 1.7 - 2.8 mg/dl [facility] 01/21/2014 6:01 EDT 01/21/2014 6:16 EDT Sridevi Alvarez MD CHEMISTRY & BLOOD GAS ORDERABL ES Final Result Performing Organization Address [facility] de Phone Number [facility] [address] [place] [address] * CREATININE (01/21/2014 6:01 EDT) Pathologist [facility] Creatinine 0.70 0.66 - 1.25 mg/dl [facility] GFR, Calculated >60 >60 ml/min/1.7 3m2 [facility] Blood specimen (specimen) 01/21/2014 6:01 EDT 01/21/2014 6:16 EDT Sridevi Alvarez MD CHEMISTRY & BLOOD GAS ORDERABL ES Final Result Performing Organization Address [facility] de Phone Number [facility] [address] [place] [address] * BUN (01/21/2014 6:01 EDT) Pathologist [facility] BUN 15 10 - 26 mg/dl [facility] Blood specimen (specimen) 01/21/2014 6:01 EDT 01/21/2014 6:16 EDT Sridevi Alvarez MD CHEMISTRY & BLOOD GAS ORDERABL ES Final Result Performing Organization Address [facility] de Phone Number [facility] [address] [place] [address] * (ABNORMAL) ELECTROLYTES (01/21/2014 6:01 EDT) Pathologist [facility] Sodium 135(L) 136 - 145 mEq/L [facility] Potassium 4.0 3.5 - 5.0 mEq/L [facility] Chloride 103 96 - 110 mEq/L [facility] CO2 23(L) 24 - 32 mEq/L [facility] Blood specimen (specimen) 01/21/2014 6:01 EDT 01/21/2014 6:16 EDT Sridevi Alvarez MD CHEMISTRY & BLOOD GAS ORDERABL ES Final Result Performing Organization Address [facility] de Phone Number [facility] [address] [place] [address] * (ABNORMAL) HEMAGRAM (01/21/2014 6:01 EDT) WBC [...] ORDERABLES Fi nal Result Performing Organization Address [facility] de Phone Number [facility] [address] [place] [address] * INPATIENT ADD-ON (01/21/2014 2:10 EDT) Tests to be added MAGNESIUM, PHOSPHOROU S [facility] Number for problems Not Given [facility] Accession number [id number] [facility] 01/21/2014 2:10 EDT 01/21/2014 2:42 EDT Ghulam Ray MD HEMATOLOGY & PF4 ORDERABLES Final Result Performing Organization Address [facility] Co de Phone Number [facility] [address] [place] [address] * INPATIENT ADD-ON (01/20/2014 9:10 EDT) Tests to be added PERIPHERAL SMEAR REVIEW FOR THROMBOCYTOPENIA [facility] Number for problems [address] [facility] Accession number [id number] [facility] 01/20/2014 9:10 EDT 01/20/2014 9:11 EDT us Juliocesar Schultz MD HEMATOLOGY & PF4 ORDERABLE S Final Result Performing Organization Address [facility] de Phone Number [facility] [address] [place] [address] * PHOSPHORUS (01/20/2014 8:02 EDT) Phosphorus 4.5 2.5 - 4.5 mg/dl [facility] 01/20/2014 8:02 EDT 01/20/2014 8:14 EDT Sridevi Alvarez MD CHEMISTRY & BLOOD GAS ORDERABL ES Final Result Performing Organization Address [facility] de Phone Number [facility] [address] [place] [address] * (ABNORMAL) MAGNESIUM (01/20/2014 8:02 EDT) Magnesium 1.6(L) 1.7 - 2.8 mg/dl [facility] 01/20/2014 8:02 EDT 01/20/2014 8:14 EDT Sridevi Alvarez MD CHEMISTRY & BLOOD GAS ORDERABL ES Final Result Performing Organization Address [facility] Co de Phone Number [facility] [address] [place] [address] * PROSPER DIFF COMMENT (01/20/2014 8:02 EDT) [...] ited Result - Final Performing Organization Address [facility] de Phone Number [facility] [address] [place] [address] * SLIDE REQUEST (01/20/2014 8:02 EDT) Note A smear is filed in the Hematology lab [facility] 01/20/2014 8:02 EDT 01/20/2014 8:14 EDT Sridevi Alvarez MD HEMATOLOGY & PF4 ORDERABLES Fi nal Result Performing Organization Address [facility] de Phone Number [facility] [address] [place] [address] * (ABNORMAL) PTT (01/20/2014 8:02 EDT) PTT 59(H) 26 - 37 secs [facility] Comment:Therapeutic Heparin range: 65-100 seconds Blood specimen (specimen) 01/20/2014 8:02 EDT 01/20/2014 8:14 EDT Sridevi Alvarez MD HEMATOLOGY & PF4 ORDERABLES Fi nal Result Performing Organization Address [facility] de Phone Number [facility] [address] [place] [address] * (ABNORMAL) CREATININE (01/20/2014 8:02 EDT) Creatinine 0.63(L) 0.66 - 1.25 mg/dl [facility] GFR, Calculated >60 >60 ml/min/1.7 3m2 [facility] Blood specimen (specimen) 01/20/2014 8:02 EDT 01/20/2014 8:14 EDT Sridevi Alvarez MD CHEMISTRY & BLOOD GAS ORDERABL ES Final Result Performing Organization Address [facility] de Phone Number [facility] [address] [place] [address] * BUN (01/20/2014 8:02 EDT) BUN 10 10 - 26 mg/dl [facility] Blood specimen (specimen) 01/20/2014 8:02 EDT 01/20/2014 8:14 EDT Sridevi Alvarez MD CHEMISTRY & BLOOD GAS ORDERABL ES Final Result Performing Organization Address [facility] de Phone Number [facility] [address] [place] [address] * ELECTROLYTES (01/20/2014 8:02 EDT) Sodium 138 [...] ORDERABL ES Final Result Performing Organization Address [facility] de Phone Number [facility] [address] [place] [address] * (ABNORMAL) HEMAGRAM (01/20/2014 8:02 EDT) WBC 7.67 4.0 - 10.4 K/cmm [facility] RBC 4.33(L) 4.36 - 5.78 M/cmm [facility] Hemoglobin 14.1 13.8 - 17.3 gm/dl [facility] HCT 40.8 39.5 - 50.2 % [facility] MCV 94 81 - 95 fl [facility] MCH 32.5 27.6 - 33.0 pg [facility] MCHC 34.5 32.8 - 36.4 gm/dl [facility] PLT 69(L) 141 - 320 K/cmm [facility] RDW-CV 14.0 11.8 - 14.1 % [facility] Blood specimen (specimen) 01/20/2014 8:02 EDT 01/20/2014 8:14 EDT us Sridevi Alvarez MD HEMATOLOGY & PF4 ORDERABLES Fi nal Result Performing Organization Address [facility] Co de Phone Number [facility] [address] [place] [address] * ECG REPORT - SCANNED (01/19/2014 14:15 EDT) 01/19/2014 14:1 5 EDT us Scan 2 [employer] Administrator PROCEDURE/MINOR SURGICAL OR DERABLES Final Result * (ABNORMAL) CK MB WITH TOTAL CK (01/19/2014 13:52 EDT) CK 444(H) 0 - 250 U/L [facility] MB 1.89 <4.21 ng/ml [facility] Blood specimen (specimen) 01/19/2014 13:52 EDT 01/19/2014 14:23 EDT us Kenyon Sullivan MD CHEMISTRY & BLOOD GAS ORDERA BLES Final Result Performing Organization Address [facility] Co de Phone Number [facility] [address] [place] [address] * (ABNORMAL) PTT (01/19/2014 5:40 EDT) PTT 65(H) 26 - 37 secs [facility] Comment:Therapeutic Heparin range: 65-100 seconds Blood specimen (specimen) 01/19/2014 5:40 EDT 01/19/2014 5:55 EDT Sridevi Alvarez MD HEMATOLOGY & PF4 ORDERABLES Fi nal Result Performing Organization Address [facility] Phone Number [facility] [address] [place] [address] * (ABNORMAL) CREATININE (01/19/2014 5:40 EDT) Creatinine 0.60(L) 0.66 - 1.25 mg/dl [facility] GFR, Calculated >60 >60 ml/min/1.7 3m2 [facility] Blood specimen (specimen) 01/19/2014 5:40 EDT 01/19/2014 5:55 EDT Sridevi Alvarez MD CHEMISTRY & BLOOD GAS ORDERABL ES Final Result Performing Organization Address [facility] Phone Number [facility] [address] [place] [address] * BUN (01/19/2014 5:40 EDT) BUN 10 10 - 26 mg/dl [facility] Blood specimen (specimen) 01/19/2014 5:40 EDT 01/19/2014 5:55 EDT Sridevi Alvarez MD CHEMISTRY & BLOOD GAS ORDERABL ES Final Result Performing Organization Address [facility] Phone Number [facility] [address] [place] [address] * ELECTROLYTES (01/19/2014 5:40 EDT) Sodium 138 136 - 145 mEq/L [facility] Potassium 3.6 3.5 - 5.0 mEq/L [facility] Chloride 104 96 - 110 mEq/L [facility] CO2 25 24 - 32 mEq/L [facility] Blood specimen (specimen) 01/19/2014 5:40 EDT 01/19/2014 5:55 EDT Sridevi Alvarez MD CHEMISTRY & BLOOD GAS ORDERABL ES Final Result Performing Organization Address [facility] Co de Phone Number [facility] [address] [place] [address] * (ABNORMAL) HEMAGRAM (01/19/2014 5:40 EDT) WBC [...] ORDERABLES Fi nal Result Performing Organization Address [facility] Co de Phone Number [facility] [address] [place] [address] * LIPID PROFILE (INCLUDES CHOLESTEROL, TRIGLYCERIDES, HDL, LDL) (01/19/2014 5:40 EDT) Cholesterol 162 mg/dl [facility] Comment: Desirable:<200 Borderline High:200-239 High:>ad=629 Triglycerides 89 mg/dl CHAVA DRAKE [facility] Comment: Normal:<150 Borderline High:150-199 High:200-499 Very High:>hg=914 HDL 102 mg/dl [facility] Comment: Low:<40 Normal:40-60 Desirable: >60 LDL, Calculated 42 mg/dl [facility]ON [facility] Comment: Optimal:<100 Near Optimal:100-129 Borderline High:130-159 High:160-189 Very High:>yl=805 Chol/HDL Ratio 1.6 ULISES EUBANKS [facility] Fasting? Unknown [facility] Non HDL Cholesterol 60 mg/dl [facility] Comment: Desirable:<130 Borderline:130-159 High: 160-189 Very High: >ih=742 Blood specimen (specimen) 01/19/2014 5:40 EDT 01/19/2014 5:55 EDT Sridevi Alvarez MD CHEMISTRY & BLOOD GAS ORDERABL ES Final Result Performing Organization Address [facility] de Phone Number [facility] [address] [place] [address] * (ABNORMAL) PTT (01/18/2014 16:43 EDT) PTT 98(H) 26 - 37 secs [facility] Comment:Therapeutic Heparin range: 65-100 seconds Blood specimen (specimen) 01/18/2014 16:43 EDT 01/18/2014 16:53 EDT Golden Rutherford MD HEMATOLOGY & PF4 ORDERABLES Final Result Performing Organization Address [facility] de Phone Number [facility] [address] [place] [address] * (ABNORMAL) TROPONIN I (01/18/2014 13:58 EDT) Troponin I (ng/mL) 0.260(H) <0.034 ng/ml [facility] 01/18/2014 13:5 8 EDT 01/18/2014 14:35 EDT Sridevi Alvarez MD CHEMISTRY & BLOOD GAS ORDERABL ES Final Result Performing Organization Address [facility] de Phone Number [facility] [address] [place] [address] * (ABNORMAL) CK MB WITH TOTAL CK (01/18/2014 13:58 EDT) CK 612(H) 0 - 250 U/L [facility] MB 5.12(H) <4.21 ng/ml [facility] Blood specimen (specimen) 01/18/2014 13:58 EDT 01/18/2014 14:35 EDT us Sridevi Alvarez MD CHEMISTRY & BLOOD GAS ORDERABL ES Final Result Performing Organization Address [facility] de Phone Number [facility] [address] [place] [address] * INPATIENT ADD-ON (01/18/2014 10:37 EDT) Tests to be added TROPONIN [facility] Number for problems [id number] [facility] Accession number [id number] [facility] 01/18/2014 10:3 7 EDT 01/18/2014 15:38 EDT us Gerhard Willett MD HEMATOLOGY & PF4 ORDERABLES F inal Result Performing Organization Address [facility] de Phone Number [facility] [address] [place] [address] * (ABNORMAL) PTT (01/18/2014 8:33 EDT) PTT 42(H) 26 - 37 secs [facility] Comment:Therapeutic Heparin range: 65-100 seconds Blood specimen (specimen) 01/18/2014 8:33 EDT 01/18/2014 8:50 EDT us Golden Rutherford MD HEMATOLOGY & PF4 ORDERABLES Final Result Performing Organization Address [facility] de Phone Number [facility] [address] [place] [address] * CT HEAD WO CONTRAST (01/18/2014 7:17 [...] [facility] Sample Type ARTERIAL JACOB EUBANKS rouge miller ID [id number] [facility] Comment: Test Performed by Respiratory For non-arterial reference ranges, please see ISTAT procedure. 01/18/2014 6:53 EDT 01/18/2014 6:59 EDT us Golden Rutherford MD CHEMISTRY & BLOOD GAS ORDER MEAGAN Final Result Performing Organization Address [facility] Co de Phone Number [facility] [address] [place] [address] * (ABNORMAL) ETHANOL, BLOOD (01/18/2014 6:43 EDT) Pathologist [facility] Ethanol 144(H) <10 mg/dl [facility] Blood specimen (specimen) 01/18/2014 6:43 EDT 01/18/2014 6:48 EDT Sridevi Alvarez MD CHEMISTRY & BLOOD GAS ORDERABL ES Final Result Performing Organization Address [facility] de Phone Number [facility] [address] [place] [address] * (ABNORMAL) PTT (01/18/2014 6:43 EDT) [facility] PTT 51(H) 26 - 37 secs [facility] Comment:Therapeutic Heparin range: 65-100 seconds Blood specimen (specimen) 01/18/2014 6:43 EDT 01/18/2014 6:48 EDT Sridevi Alvarez MD HEMATOLOGY & PF4 ORDERABLES Fi nal Result Performing Organization Address [facility] de Phone Number [facility] [address] [place] [address] * CREATININE (01/18/2014 6:43 EDT) [facility] Creatinine 0.89 0.66 - 1.25 mg/dl [facility]OB [facility] GFR, Calculated >60 >60 ml/min/1.7 3m2 JAMESASHLEY EUBANKS [facility] Blood specimen (specimen) 01/18/2014 6:43 EDT 01/18/2014 6:48 EDT Sridevi Alvarez MD CHEMISTRY & BLOOD GAS ORDERABL ES Final Result Performing Organization Address [facility] de Phone Number [facility] [address] [place] [address] * (ABNORMAL) BUN (01/18/2014 6:43 EDT) BUN 6(L) 10 - 26 mg/dl [facility] Blood specimen (specimen) 01/18/2014 6:43 EDT 01/18/2014 6:48 EDT Sridevi Alvarez MD CHEMISTRY & BLOOD GAS ORDERABL ES Final Result Performing Organization Address [facility] de Phone Number [facility] [address] [place] [address] * (ABNORMAL) ELECTROLYTES (01/18/2014 6:43 EDT) Sodium [...] ORDERABL ES Final Result Performing Organization Address [facility] de Phone Number [facility] [address] [place] [address] * PROTIME (01/18/2014 6:43 EDT) Pro Time [...] ORDERABLES Fi nal Result Performing Organization Address [facility] de Phone Number [facility] [address] [place] [address] * (ABNORMAL) HEMAGRAM (01/18/2014 6:43 EDT) Pathologist [facility] WBC 5.19 4.0 - 10.4 K/cmm [facility] RBC 4.21(L) 4.36 - 5.78 M/cmm [facility] Hemoglobin 13.5(L) 13.8 - 17.3 gm/dl [facility] HCT 39.4(L) 39.5 - 50.2 % [facility] MCV 94 81 - 95 fl [facility] MCH 32.0 27.6 - 33.0 pg [facility] MCHC 34.2 32.8 - 36.4 gm/dl [facility] PLT 105(L) 141 - 320 K/cmm [facility] RDW-CV 14.1 11.8 - 14.1 % [facility] Blood specimen (specimen) 01/18/2014 6:43 EDT 01/18/2014 6:48 EDT Sridevi Alvarez MD HEMATOLOGY & PF4 ORDERABLES Fi nal Result Performing Organization Address [facility] Co de Phone Number [facility] [address] [place] [address] * (ABNORMAL) TROPONIN I (01/18/2014 6:43 EDT) [facility] Troponin I (ng/mL) 0.415(H) <0.034 ng/ml [facility] Blood specimen (specimen) 01/18/2014 6:43 EDT 01/18/2014 6:48 EDT Sridevi Alvarez MD CHEMISTRY & BLOOD GAS ORDERABL ES Final Result Performing Organization Address [facility] Co de Phone Number [facility] [address] [place] [address] * CK MB WITH TOTAL CK (01/18/2014 6:43 EDT) [facility] CK 127 0 - 250 U/L [facility] MB 2.42 <4.21 ng/ml [facility] Blood specimen (specimen) 01/18/2014 6:43 EDT 01/18/2014 6:48 EDT us Sridevi Alvarez MD CHEMISTRY & BLOOD GAS ORDERABL ES Final Result Performing Organization Address [facility] de Phone Number [facility] [address] [place] [address] * INPATIENT ADD-ON (01/18/2014 3:35 EDT) Tests to be added BLOOD ETHANOL LEVEL [facility] Number for problems Not Given [facility] Accession number [id number] [facility] 01/18/2014 3:35 EDT 01/18/2014 3:39 EDT us Sridevi Alvarez MD HEMATOLOGY & PF4 ORDERABLES Fi nal Result Performing Organization Address [facility] Co de Phone Number [facility] [address] [place] [address] * INPATIENT ADD-ON (01/18/2014 2:58 EDT) Tests to be added PROTIME [facility] Number for problems Not Given [facility] Accession number [id number] [facility] 01/18/2014 2:58 EDT 01/18/2014 2:58 EDT us Golden Rutherford MD HEMATOLOGY & PF4 ORDERABLES Final Result Performing Organization Address [facility] Co de Phone Number [facility] [address] [place] [address] * INPATIENT ADD-ON (01/18/2014 2:38 EDT) Tests to be added HEMAGRAM [facility] Number for problems Not Given [facility] Accession number [id number] [facility] 01/18/2014 2:38 EDT 01/18/2014 2:39 EDT Sridevi Alvarez MD HEMATOLOGY & PF4 ORDERABLES Fi nal Result Performing Organization Address [facility] de Phone Number [facility] [address] [place] [address] * (ABNORMAL) ETHANOL, BLOOD (01/18/2014 1:02 EDT) Ethanol 261(H) <10 mg/dl [facility] 01/18/2014 1:02 EDT 01/18/2014 1:12 EDT Sridevi Alvarez MD CHEMISTRY & BLOOD GAS ORDERABL ES Final Result Performing Organization Address [facility] Phone Number [facility]ACOB EU[facility]ANKS [facility] [address] [place] [address] * PROTIME (01/18/2014 1:02 EDT) Pro Time [...] ORDERABLES Fi nal Result Performing Organization Address [facility] de Phone Number [facility] [address] [place] [address] * (ABNORMAL) HEMAGRAM (01/18/2014 1:02 EDT) WBC [...] ORDERABLES Fi nal Result Performing Organization Address [facility] Co de Phone Number [facility] [address] [place] [address] * (ABNORMAL) PTT (01/18/2014 1:02 EDT) Pathologist [facility] PTT 141(HH) 26 - 37 secs [facility] Comment:Therapeutic Heparin range: 65-100 seconds Blood specimen (specimen) 01/18/2014 1:02 EDT 01/18/2014 1:12 EDT Golden Rutherford MD HEMATOLOGY & PF4 ORDERABLES Final Result Performing Organization Address [facility] de Phone Number [facility] [address] [place] [address] * MAGNESIUM (01/18/2014 1:02 EDT) Magnesium 2.1 1.7 - 2.8 mg/dl [facility] EU[facility] Blood specimen (specimen) 01/18/2014 1:02 EDT 01/18/2014 1:12 EDT Sridevi Alvarez MD CHEMISTRY & BLOOD GAS ORDERABL ES Final Result Performing Organization Address [facility] Co de Phone Number [facility] [address] [place] [address] * (ABNORMAL) TROPONIN I (01/18/2014 1:02 EDT) Troponin I (ng/mL) 0.383(H) <0.034 ng/ml [facility] Blood specimen (specimen) 01/18/2014 1:02 EDT 01/18/2014 1:12 EDT Sridevi Alvarez MD CHEMISTRY & BLOOD GAS ORDERABL ES Final Result Performing Organization Address [facility] de Phone Number [facility] [address] [place] [address] * CK MB WITH TOTAL CK (01/18/2014 1:02 EDT) CK 113 0 - 250 U/L [facility] MB 2.62 <4.21 ng/ml [facility] Blood specimen (specimen) 01/18/2014 1:02 EDT 01/18/2014 1:12 EDT Sridevi Alvarez MD CHEMISTRY & BLOOD GAS ORDERABL ES Final Result Performing Organization Address [facility] Phone Number [facility] [address] [place] [address] * HEMOGLOBIN A1C (01/18/2014 1:02 EDT) Hemoglobin [...] ORDERABL ES Final Result Performing Organization Address [facility] Phone Number [facility]ACOB EU[facility]ANKS [facility] [address] [place] [address] * (ABNORMAL) SCREENING GLUCOSE (01/18/2014 1:02 EDT) Glucose, Screening 104(H) 70 - 100 mg/dl [facility] Blood specimen (specimen) 01/18/2014 1:02 EDT 01/18/2014 1:12 EDT Sridevi Alvarez MD CHEMISTRY & BLOOD GAS ORDERABL ES Edited Result - Final Performing Organization Address [facility] de Phone Number [facility] [address] [place] [address] * ALKALINE PHOSPHATASE (01/18/2014 1:02 EDT) Total Alkaline Phosphatase 75 38 - 126 U/L [facility] Blood specimen (specimen) 01/18/2014 1:02 EDT 01/18/2014 1:12 EDT Sridevi Alvarez MD CHEMISTRY & BLOOD GAS ORDERABL ES Final Result Performing Organization Address [facility] de Phone Number [facility] [address] [place] [address] * (ABNORMAL) ALT (01/18/2014 1:02 EDT) ALT 78(H) 21 - 72 U/L [facility] Blood specimen (specimen) 01/18/2014 1:02 EDT 01/18/2014 1:12 EDT Sridevi Alvarez MD CHEMISTRY & BLOOD GAS ORDERABL ES Final Result Performing Organization Address [facility] de Phone Number [facility] [address] [place] [address] * (ABNORMAL) AST (01/18/2014 1:02 EDT) AST 68(H) 15 - 46 U/L [facility] Blood specimen (specimen) 01/18/2014 1:02 EDT 01/18/2014 1:12 EDT Sridevi Alvarez MD CHEMISTRY & BLOOD GAS ORDERABL ES Final Result Performing Organization Address [facility] de Phone Number [facility] [address] [place] [address] * (ABNORMAL) CREATININE (01/18/2014 1:02 EDT) Creatinine 0.53(L) 0.66 - 1.25 mg/dl [facility] GFR, Calculated >60 >60 ml/min/1.7 3m2 [facility] Blood specimen (specimen) 01/18/2014 1:02 EDT 01/18/2014 1:12 EDT Sridevi Alvarez MD CHEMISTRY & BLOOD GAS ORDERABL ES Final Result Performing Organization Address [facility] Phone Number [facility] [address] [place] [address] * (ABNORMAL) BUN (01/18/2014 1:02 EDT) BUN 3(L) 10 - 26 mg/dl [facility] Blood specimen (specimen) 01/18/2014 1:02 EDT 01/18/2014 1:12 EDT Sridevi Alvarez MD CHEMISTRY & BLOOD GAS ORDERABL ES Final Result Performing Organization Address [facility] Phone Number [facility] [address] [place] [address] * (ABNORMAL) ELECTROLYTES (01/18/2014 1:02 EDT) Sodium [...] ES Final Result [facility] [address] [place] [address] * EKG 12-LEAD (01/18/2014 0:50 EDT) 01/18/2014 0:50 EDT Narrative [facility] EKG - 01/19/2014 8:36 EDT ?[facility] ? Test Date: ?2014-01-18 Pat Name: ? JIMENEZ BARKLEY ? Department: ?? [facility] ? Room: ? MW528 Gender: ? 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 Requested By: BETZY CASTILLO Order Number: [id number] ? Gwen CRAFT: ?? CHICO POSEY MD ? Measurements Intervals ?[place] ? Rate: ? 76 ? P: ?-24 CA: ? 141 ?QRS: ?72 QRSD: ? 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: [id number] : 1955 Requested By: BETZY CASTILLO Order Number: [id number] Reading MD: CHICO POSEY MD Measurements Intervals [place] Rate: 76 P: -24 CA: 141 QRS: 72 QRSD: 96 T: 70 [...] Diagnoses Diagnosis NSTEMI (non-ST elevated myocardial infarction) ([facility])- Primary Acute myocardial infarction, subendocardial infarction, episode of care unspecified NSTEMI (non-ST elevated myocardial infarction) ([facility]) Acute myocardial infarction, subendocardial infarction, episode of care unspecified Delirium tremens ([facility]) Alcohol withdrawal delirium ETOH abuse Alcohol abuse, unspecified Alcohol withdrawal ([facility]) Alcohol withdrawal ETOH abuse Alcohol abuse, unspecified [...] 75 mg, oral, DAILY, First dose on Theresa 01/18/14 at 0900, Until Discontinued, Routine Given [...] intravenous, EVERY 1 HOUR PRN, Starting on Theresa 01/18/14 at 1946, Until Sun01/19/14 at 0012, [...] 1201 (Given - Provider: Kristel Huang RN) mometasone-formoterol (DULERA) 100-5 mcg/actuation inhaler 2 [...] 01/20/2014 documented in this encounter Care Teams Hotel Concierge Relationship Specialty Start Date End Date Sai Garg MD [address] [place] [address] [phone] PCP - General 01/03/14 11/11/14 documented as of this encounter
--- OUTSIDE RECORDS SUMMARY | 2024-08-06 14:47 | XMS_ITS | Encounter Summary ---
Author Organization [facility] Address [address] [place] [address] Care Team Providers Care Production Repairer Name Role Phone Reagan Foster MD Primary Care Pro vider Sai Garg MD Primary Care Provi glynn Reason for Referral * (Routine) - Closed Specialty Diagnoses / Procedures Referred By Contac t Referred To Contact Kristel Garcia NP Referral ID Status Reason Start Date Expiration Date V isits Requested Visits Authorized [id number] Closed Specialty Services Required 01/02/2014 1 1 [...] Expiration Date V isits Requested Visits Authorized [id number] Closed Specialty Services Required 01/02/2014 1 1 Question Answer Reason for recommendation: Discharge follow-up Comments Follow up with Dr Bryan Peraza, industrial/organizational psychologist in [place]. Office phone number for questions or concerns: [phone]. * (Routine) - Closed Specialty Diagnoses / Procedures Referred By Contac t Referred To Contact Kristel Garcia NP Referral ID Status Reason Start Date Expiration Date V isits Requested Visits Authorized [id number] Closed Specialty Services Required 01/02/2014 1 1 Question Answer Reason for recommendation: Discharge follow up Reason for Visit * Reason Comments Chest Pain NSTEMI transfer ,arr yomaira 7/10 cp Encounter Details Date Type Department Care Team (Late st Contact Info) Description 01/02/2014 11:47 EDT - 01/03/2014 14:06 EDT Hospital Encounter [facility] Cardiac/Telemetry Unit [address], [place] [id number] Shane Cr MD Plante, Laurel Barkell, MD [address] [facility], Level [address] [place] [address] Braydon Putnam MD NSTEMI (non-ST elevated myocardial infarction) ([facility]) (Primary Dx) Discharge Disposition: Home or Self [...] NSTEMI (non-ST elevated myocardial infarction) Principal Procedure: [facility] with BMS x 3 to LAD [...] and loaded with aspirin and transferred to [facility]. In addition he received magnesium 2 g IV fro a Mg of 1.2. On presentation to [facility] he had continued chest pain with [...] Follow-up appointments and procedures Follow up with industrial/organizational psychologist. The industrial/organizational psychologist's office will call you to set up an appointment. Follow up with Dr Bryan Peraza, industrial/organizational psychologist in [place]. Office phone number for questions or concerns: [phone]. Reason for recommendation: Discharge follow-up Authorizing Provider: [...] He states he no longer lives in [place], that he lives in [facility]; [place] on the map it is actually in [facility]. Unsure closest location of follow up, but I have scheduled this at [facility] as he came from there by ambulance. [...] and loaded with aspirin and transferred to [facility]. In addition he received magnesium 2 g IV On presentation to [facility] he had continued chest pain with [...] changes, and elevated cardiac biomarkers. Transferred to [facility] for further care. Received aspirin 325 at [...] results Justus Lantigua MD 01/02/2014 12:13 Pager #[phone] Pt seen and examined prior to cardiac cath. Ongoing moderate CP. No rub. Moderate distress, somewhat agitated/anxious. Pulses good LEs. ECG with concerning anterior ST changes bordering on STEMI criteria. For emergent cardiac cath. See my procedure note. High risk for med non compliance or bleeding on initial eval. Bare metal stents appropriate. Chico Posey MD Cardiology Pager [phone] [facility] documented in this encounter Procedure Notes * Chico Posey MD - 01/02/2014 2728 EDT Cardiovascular Catheterization Laboratory Preliminary Report -- [...] artery Procedure: He was brought to the [facility] Cardiac Catheterization Laboratory for the [...] Jesus RN - 01/02/2014 1300 EDT To STRIP CATCHER * Yolanda Gonzalez MD - 01/02/2014 1210 [...] by cards. Patient to go directly to lab tech. ? Evolving anterior MA. Labs pending at time of admission. Disposition: [...] enroute direct admit. 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 Acute hypotention when given nitroglycerine. 2 grams magnesium given for mag 1.2. Morphine and fentanyl for pain ocean clam boat captain. documented in this encounter Miscellaneous Notes [...] discharge and every two hours while on BLACK OFF WORKER or epidural. Data: Pt had been complaining of left chest pain during the night and had been given morphine. Action: VS and assessment completed. Pt asked about his pain. Response: Pt stated that it is much better, then he asked what was wrong with me? Explained that hehad an MA and stents had been placed in the [...] Care - Shakira Camarena RN - 01/02/2014 0668 EDT D: Assumed care of pt at [...] Resident - Mary Ang MD - 01/02/2014 1409 EDT DOS: 01/02/2014 Chief Complaint Patient presents [...] aspirin, started a heparin dripand transferred to [facility]. Patient was seen in the ED for [...] EST) 09/29/2015 9:35 EST us Scan 2 Electoral Officer PROCEDURE/MINOR SURGICAL OR DERABLES Final Result * ECG REPORT - SCANNED (01/09/2014 14:28 EDT) 01/09/2014 14:2 8 EDT us Scan 2 Electoral Officer PROCEDURE/MINOR SURGICAL OR DERABLES Final Result * ECG REPORT - SCANNED (01/08/2014 13:09 EDT) 01/08/2014 13:0 9 EDT us Scan 2 Electoral Officer PROCEDURE/MINOR SURGICAL OR DERABLES Final Result * INVASIVE CARDIOLOGY REPORT-SCANNED (01/08/2014 13:09 EDT) 01/08/2014 13:0 9 EDT us Scan 2 Electoral Officer PROCEDURE/MINOR SURGICAL OR DERABLES Final Result * ECG REPORT - SCANNED (01/07/2014 15:11 EDT) 01/07/2014 15:1 1 EDT us Scan 2 Electoral Officer PROCEDURE/MINOR SURGICAL OR DERABLES Final Result * ECG REPORT - SCANNED (01/07/2014 15:11 EDT) 01/07/2014 15:1 1 EDT us Scan 2 Electoral Officer PROCEDURE/MINOR SURGICAL OR DERABLES Final Result * EKG 12-LEAD (01/03/2014 8:06 EDT) 01/03/2014 8:06 EDT Narrative FA EKG - 01/06/2014 12:11 EDT ?[facility] ? Test Date: ?2014-01-03 Pat Name: ? JIMENEZ BARKLEY ? Department: ?? Gabriel 5 ? Room: ? ME520 Gender: ? M ?Graphic Pre Press Trades Worker: ?? [id number] : ?1955 ? Requested By: KENYON SULLIVAN MD Order Number: [id number] ? Reading MD: ?? WAYLON MUÑOZ MD ? Measurements Intervals ?[place] ? Rate: ? 60 ? P: ?-36 NJ: ? 136 ?QRS: ?58 QRSD: ? 96 [...] Date: 2014-01-03 Pat Name: JIMENEZ BARKLEY Department: [place] [address] Room: [facility] Gender: M Graphic Pre Press Trades Worker: [id number] : 1955 Requested By: KENYON SULLIVAN MD Order Number: [id number] Gwen MD: WAYLON MUÑOZ MD Measurements Intervals [place] Rate: 60 P: -36 NJ: 136 QRS: 58 QRSD: 96 T: 37 [...] ECG ORDERABLES Final Result Performing Organization Address City/State/[facility] Co de Phone Number [facility] EKG * SMEAR REVIEW (01/03/2014 5:38 EDT) Pathologist [facility] Smear scan only: Slide was examined by a technologist to verify the WBC and/or platelet count. [facility] 01/03/2014 5:38 EDT 01/03/2014 5:44 EDT Kenyon Sullivan MD HEMATOLOGY & PF4 ORDERABLES Final Result Performing Organization Address [facility] de Phone Number [facility] [address] [place] [address] * CK MB WITH TOTAL CK (01/03/2014 5:38 EDT) [facility] CK 64 0 - 250 U/L [facility] MB 1.75 <4.21 ng/ml [facility] Blood specimen (specimen) 01/03/2014 5:38 EDT 01/03/2014 5:44 EDT Kenyon Sullivan MD CHEMISTRY & BLOOD GAS ORDERA BLES Final Result Performing Organization Address [facility] de Phone Number [facility] [address] [place] [address] * (ABNORMAL) ALT (01/03/2014 5:38 EDT) [facility] ALT 161(H) 21 - 72 U/L [facility] Blood specimen (specimen) 01/03/2014 5:38 EDT 01/03/2014 5:44 EDT Kenyon Sullivan MD CHEMISTRY & BLOOD GAS ORDERA BLES Final Result Performing Organization Address [facility] de Phone Number [facility] [address] [place] [address] * (ABNORMAL) AST (01/03/2014 5:38 EDT) [facility] AST 118(H) 15 - 46 U/L [facility] Comment:Sample retested, res ult confirmed Blood specimen (specimen) 01/03/2014 5:38 EDT 01/03/2014 5:44 EDT Kenyon Sullivan MD CHEMISTRY & BLOOD GAS ORDERA BLES Final Result Performing Organization Address [facility] de Phone Number [facility] [address] [place] [address] * LIPID PROFILE (INCLUDES CHOLESTEROL, TRIGLYCERIDES, HDL, LDL) (01/03/2014 5:38 EDT) Cholesterol 123 mg/dl [facility] Comment: Desirable:<200 Borderline High:200-239 High:>mo=358 Triglycerides 43 mg/dl CHAVA [facility] Comment: Normal:<150 Borderline High:150-199 High:200-499 Very High:>by=886 HDL 74 mg/dl [facility] Comment: Low:<40 Normal:40-60 Desirable: >60 LDL, Calculated 40 mg/dl HERON [facility] Comment: Optimal:<100 Near Optimal:100-129 Borderline High:130-159 High:160-189 Very High:>ck=929 Chol/HDL Ratio 1.7 [facility] Fasting? Unknown [facility] Non HDL Cholesterol 49 mg/dl [facility] Comment: Desirable:<130 Borderline:130-159 High: 160-189 Very High: >eu=399 Blood specimen (specimen) 01/03/2014 5:38 EDT 01/03/2014 5:44 EDT Kenyon Sullivan MD CHEMISTRY & BLOOD GAS ORDERA BLES Final Result Performing Organization Address [facility] de Phone Number [facility] [address] [place] [address] * (ABNORMAL) CREATININE (01/03/2014 5:38 EDT) Creatinine 0.59(L) 0.66 - 1.25 mg/dl [facility] GFR, Calculated >60 >60 ml/min/1.7 3m2 [facility] Blood specimen (specimen) 01/03/2014 5:38 EDT 01/03/2014 5:44 EDT Kenyon Sullivan MD CHEMISTRY & BLOOD GAS ORDERA BLES Final Result Performing Organization Address [facility] de Phone Number [facility] [address] [place] [address] * (ABNORMAL) BUN (01/03/2014 5:38 EDT) BUN 7(L) 10 - 26 mg/dl [facility] Blood specimen (specimen) 01/03/2014 5:38 EDT 01/03/2014 5:44 EDT Kenyon Sullivan MD CHEMISTRY & BLOOD GAS ORDERA BLES Final Result Performing Organization Address [facility] de Phone Number [facility] [address] [place] [address] * ELECTROLYTES (01/03/2014 5:38 EDT) Sodium 136 [...] Final Result Performing Organization Address [facility] de Phone Number [facility] [address] [place] [address] * (ABNORMAL) HEMAGRAM (01/03/2014 5:38 EDT) WBC [...] PF4 ORDERABLES Final Result Performing Organization Address [facility] Co de Phone Number [facility] [address] [place] [address] * CK MB WITH TOTAL CK (01/02/2014 21:33 EDT) CK 80 0 - 250 U/L [facility] MB 1.58 <4.21 ng/ml [facility] Blood specimen (specimen) 01/02/2014 21:33 EDT 01/02/2014 21:44 EDT Justus Lantigua MD CHEMISTRY & BLOOD GAS ORDE RABALONDRA Final Result Performing Organization Address [facility] Co de Phone Number [facility] [address] [place] [address] * (ABNORMAL) TROPONIN I (01/02/2014 21:33 EDT) Troponin I (ng/mL) 0.208(H) <0.034 ng/ml [facility] Blood specimen (specimen) 01/02/2014 21:33 EDT 01/02/2014 21:44 EDT Justus Lantigua MD CHEMISTRY & BLOOD GAS ORDE RABLES Final Result Performing Organization Address [facility] Co de Phone Number [facility] [address] [place] [address] * MAGNESIUM (01/02/2014 19:39 EDT) Magnesium 1.8 1.7 - 2.8 mg/dl [facility] Blood specimen (specimen) 01/02/2014 19:39 EDT 01/02/2014 20:18 EDT Justus Lantigua MD CHEMISTRY & BLOOD GAS ORDE RABLES Final Result Performing Organization Address City/[facility]/ZIP Co de Phone Number [facility] [address] [place] [address] * (ABNORMAL) ELECTROLYTES (01/02/2014 19:39 EDT) Sodium [...] ORDE RABALONDRA Final Result Performing Organization Address [facility] Co de Phone Number [facility] [address] [place] [address] * CK MB WITH TOTAL CK (01/02/2014 19:39 EDT) Pathologist [facility] CK 85 0 - 250 U/L [facility] MB 1.43 <4.21 ng/ml [facility] Blood specimen (specimen) 01/02/2014 19:39 EDT 01/02/2014 20:18 EDT Justus Lantigua MD CHEMISTRY & BLOOD GAS ORDE RABALONDRA Final Result Performing Organization Address City/[facility] Co de Phone Number [facility] [address] [place] [address] * EKG 12-LEAD (01/02/2014 19:10 EDT) 01/02/2014 19:1 0 EDT Narrative FA EKG - 01/06/2014 23:52 EDT ?[facility] ? Test Date: ?2014-01-02 Pat Name: ? JIMENEZ BARKLEY ? Department: ?? Nery Mackay ? Room: ? ME520 Gender: ? M ?Graphic Pre Press Trades Worker: ?? [id number] : ?1955 ? Requested By: JUSTUS LANTIGUA MD Order Number: [id number] ? Reading MD: ?? CHICO POSEY MD ? Measurements Intervals ?[place] ? Rate: ? 68 ? P: ?50 [place]: ? 159 ?QRS: ?57 QRSD: ? 92 [...] Date: 2014-01-02 Pat Name: JIMENEZ BARKLEY Department: [place] [address] Room: [facility] Gender: M Graphic Pre Press Trades Worker: [id number] : 1955 Requested By: JUSTUS LANTIGUA MD Order Number: [id number] Reading MD: CHICO PSOEY MD Measurements Intervals [place] Rate: 68 P: 50 NJ: 159 QRS: 57 QRSD: 92 T: 37 [...] ORDERABLES Fin al Result Performing Organization Address City/State/[facility] Co de Phone Number [facility] EKG * INPATIENT ADD-ON (01/02/2014 15:45 EDT) Tests to be added PLEASE ADD PROTIME, ALK PHOS, ALT, AST, SCREENING GLUCOSE TO PREVIOUS TESTING, THANK YOU [facility] Number for problems [id number] [facility] Accession number [id number], DUPLICATION OF GLS REQUEST WHICH IS ALREADY ON THIS ACCESSION JACOB BERMAN 01/02/2014 15:4 5 EDT 01/02/2014 16:08 EDT us Shane Cr MD HEMATOLOGY & PF4 ORDERABLES Fi nal Result Performing Organization Address [facility] Co de Phone Number [facility] [address] [place] [address] * ECHOCARDIOGRAM (01/02/2014 15:38 EDT) Anatomical Region Laterality Modality Other 01/02/2014 15:3 8 EDT Narrative 01/02/2014 16:44 EDT *Interpreting Group:* *[facility]* [address] [id number] *STUDY CONCLUSIONS* Summary: ?? Left ventricle: The [...] ORDERING ? Kenyon Sullivan REFERRING ?Kenyon Sullivan BRICKLAYER ??Lucy Esposito *PROCEDURE DATA* Procedure information: ??This study was interpreted by [facility] at [facility]. ??Study status: ??Routine. Transthoracic echocardiography. [...] 01/02/2014 16:44 Procedure Note 01/02/2014 *Interpreting Group:* *[facility]* [address] [place] [address] *STUDY CONCLUSIONS* Summary: Left ventricle: The cavity [...] Fa, ORDERING Kenyon Sullivan REFERRING Kenyon Sullivan BRICKLAYER Homerkokiyahaira Lucy *PROCEDURE DATA* Procedure information: [facility]. Study status: Routine.Transthoracic echocardiography. M-mode, [...] 1 EDT Narrative 01/02/2014 16:41 EDT Cardiology [address] [place] [id number] Catheterization Laboratory Study Patient: Jimenez Barkley ? Study Date: ?01/02/2014 ?Accession #: ? [id number] : ? 1955 Referring Physician: Reagan Foster [...] was identified. SUMMARY: 1. HPI and indications: Ahr-BZ-tidwvtsy myocardial infarction. 2. LAD: Mid-vessel lesion: There [...] however NSTEMI Dx requires DAPT x1y. HISTORY: Jcd-AM-igfcupni myocardial infarction. ??PMH: ?? Chronic lung disease. [...] 2. Vessel setup was performed. A 180 Reapplix wire was used to cross the ?? [...] MD 2014-01-02 16:41 Procedure Note 01/02/[address] [place] [address] Catheterization Laboratory Study Patient: Jimenez Barkley Study Date:01/02/2014 : 1955 Referring Physician: Reagan Foster Diagnostic Attending: Chico Posey Interventional Attending: Chico Posey Interventional Fellow: Kenyon Sullivan ATTESTATION: Dr. Chico Posey was present and supervising for the entire procedure, IDr. Kenyon Sullivan was the initial author of this report. I, Dr. Chioc Toribio reviewed and agree with the findings [...] was identified. SUMMARY: 1. HPI and indications: Anb-VH-hkyvzvld myocardial infarction. 2. LAD: Mid-vessel lesion: There [...] alcohol, a cardiac rehabilitation program, and hemoglobin [id number]. The patient was counseled regarding the importance of adherence to theprescribed antiplatelet therapy and a low fat diet. 3. Add aspirin, 81mgPOdaily. 4. Add clopidogrel (Plavix), 75mgPOdaily, for 1yr. 5. BMS were deployed, however NSTEMI Dx requires DAPT x1y. HISTORY: Unc-BL-vwjavqlt myocardial infarction. PMH: Chronic lung disease.Functional status: [...] 2. Vessel setup was performed. A 180 Reapplix wire was used to crossthe lesion. 3. [...] a single inflation and a maximum pressure [id number]. STUDY COMPLETION: The estimated blood loss was [...] ORDERABLES Naomi l Result Performing Organization Address [facility] Co de Phone Number [facility] [address] [place] [address] * (ABNORMAL) AST (01/02/2014 12:14 EDT) Pathologist [facility] AST 206(H) 15 - 46 U/L [facility] 01/02/2014 12:1 4 EDT 01/02/2014 12:34 EDT Mary Ang MD CHEMISTRY & BLOOD GAS ORDERABLES Final Result Performing Organization Address [facility] de Phone Number [facility] [address] [place] [address] * (ABNORMAL) ALT (01/02/2014 12:14 EDT) Pathologist [facility] ALT 203(H) 21 - 72 U/L [facility] 01/02/2014 12:1 4 EDT 01/02/2014 12:34 EDT Mary Ang MD CHEMISTRY & BLOOD GAS ORDERABLES Final Result Performing Organization Address [facility] Co de Phone Number [facility] [address] [place] [address] * ALKALINE PHOSPHATASE (01/02/2014 12:14 EDT) Total Alkaline Phosphatase 119 38 - 126 U/L [facility] 01/02/2014 12:1 4 EDT 01/02/2014 12:34 EDT us Mary Ang MD CHEMISTRY & BLOOD GAS ORDERABLES Final Result Performing Organization Address [facility] Co de Phone Number [facility] [address] [place] [address] * MAGNESIUM (01/02/2014 12:14 EDT) Magnesium 1.9 1.7 - 2.8 mg/dl [facility] 01/02/2014 12:1 4 EDT 01/02/2014 12:34 EDT us Mary Ang MD CHEMISTRY & BLOOD GAS ORDERABLES Final Result Performing Organization Address [facility] de Phone Number [facility] [address] [place] [address] * SCREENING GLUCOSE (01/02/2014 12:14 EDT) Glucose, Screening 79 70 - 100 mg/dl [facility] 01/02/2014 12:1 4 EDT 01/02/2014 12:34 EDT us Mary Ang MD CHEMISTRY & BLOOD GAS ORDERABLES Final Result Performing Organization Address [facility] de Phone Number [facility] [address] [place] [address] * (ABNORMAL) CREATININE (01/02/2014 12:14 EDT) Creatinine 0.64(L) 0.66 - 1.25 mg/dl [facility] GFR, Calculated >60 >60 ml/min/1.7 3m2 [facility] 01/02/2014 12:1 4 EDT 01/02/2014 12:34 EDT us Mary Ang MD CHEMISTRY & BLOOD GAS ORDERABLES Final Result Performing Organization Address City/State/[facility] Co de Phone Number [facility] [address] [place] [address] * (ABNORMAL) BUN (01/02/2014 12:14 EDT) [facility] BUN 5(L) 10 - 26 mg/dl [facility] 01/02/2014 12:1 4 EDT 01/02/2014 12:34 EDT Mary Ang MD CHEMISTRY & BLOOD GAS ORDERABLES Final Result Performing Organization Address [facility] Co de Phone Number [facility] [address] [place] [address] * (ABNORMAL) ELECTROLYTES (01/02/2014 12:14 EDT) [facility] Sodium 140 136 - 145 mEq/L [facility] Potassium 3.4(L) 3.5 - 5.0 mEq/L [facility] Chloride 102 96 - 110 mEq/L [facility] CO2 22(L) 24 - 32 mEq/L [facility] 01/02/2014 12:1 4 EDT 01/02/2014 12:34 EDT Mary Ang MD CHEMISTRY & BLOOD GAS ORDERABLES Final Result Performing Organization Address [facility] Co de Phone Number [facility] [address] [place] [address] * (ABNORMAL) TROPONIN I (01/02/2014 12:14 EDT) [facility] Troponin I (ng/mL) 0.040(H) <0.034 ng/ml [facility] 01/02/2014 12:1 4 EDT 01/02/2014 12:34 EDT Mary Ang MD CHEMISTRY & BLOOD GAS ORDERABLES Final Result Performing Organization Address [facility] Co de Phone Number [facility] [address] [place] [address] * CK MB WITH TOTAL CK (01/02/2014 12:14 EDT) [facility] CK 87 0 - 250 U/L [facility] MB 0.92 <4.21 ng/ml [facility] 01/02/2014 12:1 4 EDT 01/02/2014 12:34 EDT us Mary Ang MD CHEMISTRY & BLOOD GAS ORDERABLES Final Result Performing Organization Address [facility] de Phone Number [facility] [address] [place] [address] * HOLD BLUE TOP (01/02/2014 12:14 EDT) [facility] Hold Blue Top Sample for coagulation will be discarded after 4 hours [facility] 01/02/2014 12:1 4 EDT 01/02/2014 12:34 EDT Mary Ang MD LAB INFO SERVICE AND SUPPORT & P DREAD RESULT Final Result Performing Organization Address [facility] de Phone Number [facility] [address] [place] [address] * (ABNORMAL) DIFFERENTIAL (01/02/2014 12:14 EDT) [facility] % Neutrophils 74.0 45.5 - 79.7 % [...] ORDERABLES Naomi l Result Performing Organization Address [facility] de Phone Number [facility] [address] [place] [address] * (ABNORMAL) HEMAGRAM (01/02/2014 12:14 EDT) WBC [...] ORDERABLES Naomi l Result Performing Organization Address [facility] de Phone Number [facility] [address] [place] [address] * EKG 12-LEAD (01/02/2014 11:54 EDT) 01/02/2014 11:5 4 EDT Narrative [facility] EKG - 01/05/2014 16:05 EDT ?[facility] ? Test Date: ?2014-01-02 Pat Name: ? JIMENEZ BARKLEY ? Department: ?? ED ? Room: ? AC02 Gender: ? M ?Graphic Pre Press Trades Worker: ?? [id number] : ?1955 ? Requested By: SHANE CR MD Order Number: [id number] ?Reading MD: ?? ARIE LIRIANO MD ? Measurements Intervals ?[place] ? Rate: ? 69 ? P: ?77 [place]: ? 168 ?QRS: ?64 QRSD: ? 97 [...] Pat Name: JIMENEZ BARKLEY Department: ED Room: [facility] Gender: M Graphic Pre Press Trades Worker: [id number] : 1955 Requested By: SHANE CR MD Order Number: [id number] Reading MD: ARIE LIRIANO MD Measurements Intervals [place] Rate: 69 P: 77 NJ: 168 QRS: 64 QRSD: 97 T: 71 [...] 12/16 documented in this encounter Care Teams Production Repairer Relationship Specialty [place] [address] [place] [address] PCP - General 07/15/12 01/02/14 Sai Garg MD [address] [place] [phone] PCP - General 01/03/14 11/11/14 documented as of this encounter
--- OUTSIDE RECORDS SUMMARY | 2024-08-06 14:47 | XMS_ITS | Encounter Summary ---
Author Organization [facility] Address [address] [place] [address] Care Team Providers Care Belt Loop Machine Operator Name Role Phone Sherita Stanford MD Primary Care Provider Reason for Visit * Reason Onset Date Comments Appointment Related 06/02/2011 Encounter Details Date Type Department Care Team (Late st Contact Info) Description 06/02/2011 Orders Only [facility] Spine Program - [address] [address] Lucy Pino MD [address] [place] [address] [place] [address] Neck pain (Primary Dx) Social [...] Cervicalgia documented in this encounter Care Teams Belt Loop Machine Operator Relationship Specialty Start Date End Date Sherita Stanford MD [address] [place] [address] PCP - General 05/04/11 06/02/12 documented as of this encounter
--- OUTSIDE RECORDS SUMMARY | 2024-08-06 14:47 | XMS_ITS | Encounter Summary ---
Author Organization [facility] Address [address] [place] [address] Care Team Providers Care Entertainment Director Name Role Phone Reagan Foster MD Primary Care Pro vider Reason for Visit * Reason Comments Neck Pain Encounter Details Date Type Department Care Team (Late st Contact Info) Description 07/16/2012 12:00 EDT Office Visit [facility] Spine Program - [address] [place] [address] Lucy Pino MD [address] [place] [address] [place] [address] Cervical spondylosis; Chronic right shoulder [...] Notes * Bethany Pino MD - 07/21/2012 4204 EST P: Right shoulder pain, neck pain [...] treated with traction in the hospital in [place], [place]; no surgery or brace was required. [...] region documented in this encounter Care Teams Entertainment Director Relationship Specialty [place] [address] [place] [address] PCP - General 07/15/12 01/02/14 documented as of this encounter
--- OUTSIDE RECORDS SUMMARY | 2024-08-06 14:47 | XMS_ITS | Encounter Summary ---
Author Organization [facility] Address [address] [place] [address] Care Team Providers Care Psychologist Social Name Role Phone Unknown, Provider Primary Care Provider Unava ilable Reason for Visit * Reason Comments Other Encounter Details Date Type Department Care Team (Late st Contact Info) Description 12/24/2009 Refill [facility] [address] [id number] Dominic Araujo MD FA [employer] [address] [place] [address] Other Social History Tobacco Use Types Packs/Day [...] on filedocumented in this encounter Care Teams Psychologist Social Relationship Specialty Start Date End Date Unknown, Provider, PCP - General 11/15/09 05/03/11 documented as of this encounter
--- OUTSIDE RECORDS SUMMARY | 2024-08-06 14:47 | XMS_ITS | Encounter Summary ---
Author Organization [facility] Address [address] [place] [address] Care Team Providers Care Ginner Name Role Phone Reagan Foster MD Primary Care Pro vider Encounter Details Date Type Department Care Team (Late st Contact Info) Description 01/02/2014 Results Only Imaging [facility] [phone] Unknown, Provider, Social History Tobacco Use Types [...] on filedocumented in this encounter Care Teams Ginner Relationship Specialty [place] [address] [place] [address] PCP - General 07/15/12 01/02/14 documented as of this encounter
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
--- OUTSIDE RECORDS SUMMARY | 2024-08-06 14:47 | XMS_ITS | Encounter Summary ---
Author Organization [facility] Address [address] [place] [address] Care Team Providers Care Filter Worker Name Role Phone Sai Garg MD Primary Care Provi glynn Reason for Referral * Radiology Services (Routine/Next Available) - Closed Specialty Diagnoses / Procedures Referred By Contabida t Referred To Contact Diagnoses Neck pain Procedures CERVICAL SPINE 4 OR MORE VIEWS Lucy Pino MD Phone: tel: fax: Referral ID Status Reason Start Date Expiration Date Visits Re quested Visits Authorized [id number] Closed 07/11/2012 1 1 Reason for Visit * Reason Onset Date Comments Appointment Related 07/11/2012 Encounter Details Date Type Department Care Team (Late st Contact Info) Description 07/11/2012 Orders Only [facility] Spine Program - [address] [place] [address] Lucy Pino MD [address] [place] [address] [place] [address] Neck pain (Primary Dx) Social [...] Cervicalgia documented in this encounter Care Teams Filter Worker Relationship Specialty Start Date End Date Sai Garg MD [address] [place] [phone] PCP - General 06/03/12 07/14/12 documented as of this encounter
--- OUTSIDE RECORDS SUMMARY | 2024-08-06 14:47 | XMS_ITS | Encounter Summary ---
Author Organization [facility] Address [address] [place] [address] Care Team Providers Care Allergist Immunologist Name Role Phone Reagan Foster MD Primary Care Pro vider Encounter Details Date Type Department Care Team (Latest Contact Info) Description 01/02/2014 10:33 EDT - 01/02/2014 11:47 EDT Hospital Encounter [facility] [address] [place] [address] Unknown, Provider, MD Discharge Disposition: Home or [...] on filedocumented in this encounter Care Teams Allergist Immunologist Relationship Specialty [place] [address] [place] [address] PCP - General 07/15/12 01/02/14 documented as of this encounter
--- NOTE | 2024-08-06 15:39 | W.PC.ACHO ---
Registration Status: Primary Language: Preferred Language: ED Information & Data Chief Complaint RespSymp 08/06/24 11:47 Chief Complaint RespSymp 08/06/24 11:46 Triage Note EMS brought patient in with 08/06/24 11:23 increased work of breathing. Known COPD oxygen was not working today. Enroute 3 nebs. Medical / Surgical History (Last Updated 08/04/24 @ 16:58 by Bethany Byrd MD) Hx of dizziness H/O: stroke Spine injury Anxiety with depression Bipolar 1 disorder Insomnia H/O onychomycosis Smoker Eczema Allergic rhinitis Alcohol abuse GERD (gastroesophageal reflux disease) Chronic pain HTN (hypertension) COPD (chronic obstructive pulmonary disease) Coronary artery disease HCAP (healthcare-associated pneumonia) (Last Updated 08/04/24 @ 15:13 by Juli Thapa RN) H/O cystoscopy H/O transurethral resection of bladder tumor (TURBT) History of coronary artery stent placement History of tonsillectomy Rotator Cuff Repair (06/30/16) Most Recent Vital Signs Temperature 37 C 08/06/24 14:57 Temperature Source Temporal Artery Scan 08/06/24 14:57 Pulse 104 H 08/06/24 14:57 Pulse 108 H 08/06/24 14:16 Respiratory Rate 19 08/06/24 14:57 Respiratory Effort Labored, Accessory Muscle Use 08/06/24 14:18 Respiratory Depth Shallow 08/06/24 14:18 Blood Pressure 196/93 H 08/06/24 14:16 Blood Pressure Mean 130 08/06/24 14:16 Blood Pressure Position Supine 08/06/24 14:57 Pulse Oximetry 92 08/06/24 14:50 Oxygen Delivery Method Bi-pap 08/06/24 14:57 Fraction of Inspired Oxygen (FIO2) 21 08/06/24 14:57 Pain Level 7 08/06/24 14:57 Comment Md aware of elevated BPs 08/06/24 12:31 Allergies carbamazepine Allergy (Intermediate, Unverified 08/06/24 12:39) Hives acetaminophen (From Tylenol) Allergy (Verified 08/06/24 12:39) unknown simvastatin Allergy (Unverified 08/06/24 12:39) unknown IV IV Catheter Type [Left Wrist] Saline Lock IV Catheter Type [Left Forearm Peripheral IV ] IV Catheter Gauge [Left Wrist] 22 Diet Orders Category Date Time Status Nothing Per Oral [DIET] Nutrition 08/06/24 Dinner Active Diagnostics 08/06/24 08/06/24 08/06/24 Range/Units 14:27 12:33 11:32 WBC 12.36 H (4.4-10.8) 10^3/uL RBC 4.25 L (4.36-5.78) 10^6/uL Hgb 12.5 L (13.5-17.5) g/dL Hct 37.6 L (40.0-50.0) % MCV 89 (80-95) fL MCH 29.4 (27.0-33.0) pg MCHC 33.2 (32.0-36.0) % RDW 14.5 H (11.8-14.1) % Plt Count 459 H (130-400) 10^3/uL MPV 8.8 (8.0-11.0) fL Immature Gran % 0.8 % Neutrophils % 85.4 % Lymphocytes % 5.9 % Monocytes % 6.8 % Eosinophils % 0.7 % Basophils % 0.4 % Nucleated RBC % 0.0 (0.0-0.3) % Absolute Neutrophils 10.56 H (1.2-6.7) 10^3/uL Absolute Lymphocytes 0.73 L (1.2-3.4) 10^3/uL Absolute Monocytes 0.84 H (0.1-0.8) 10^3/uL Absolute Eosinophils 0.09 (0.0-0.7) 10^3/uL Absolute Basophils 0.05 (0.0-0.2) 10^3/uL VBG pH 7.42 H (7.31-7.41) VBG pCO2 44 (41-51) mmHg VBG pO2 21 mmHg VBG HCO3 28 (23-28) mmol/L VBG Total CO2 26 (24-29) mmol/L VBG O2 Saturation 33 % VBG Base Excess 4 H (-2-3) mmol/L Sodium 137 (136-145) mmol/L Potassium 3.4 L (3.5-5.1) mmol/L Chloride 98 (98-107) mmol/L Carbon Dioxide 28.5 (21.0-32.0) mmol/L Anion Gap 10.5 (3-11) mmol/L BUN 15 (7-18) mg/dL Creatinine 1.0 (0.70-1.30) mg/dL Est GFR (CKD-EPI 2020) 81.98 (mL/min/1.73m2) Glucose 137 H (74-106) mg/dL Calcium 9.7 (8.5-10.1) mg/dL Magnesium 1.5 L (1.8-2.4) mg/dL Total Bilirubin 0.22 (0.2-1.0) mg/dL AST 35 (15-37) U/L ALT 38 (16-63) U/L Alkaline Phosphatase 115 (46-116) U/L Troponin I Cancelled 12 15 (<or=76) ng/L Total Protein 8.6 H (6.4-8.2) g/dL Albumin 3.2 L (3.4-5.0) g/dL Intake and Output - 24 Hour Total 08/06/24 11:11 thru 08/06/24 15:09 Intake Total 60 Balance 60 Weight 45.1 kg Intake: IV 60 Other: Comment Villalobos and Neph tube placed on Sunday 07/29, per pt report. Stool Size Small Stool Characteristics Soft Falls Risk Assessment History of Falls No History 08/06/24 14:18 Contributing Factors Incontinence 08/06/24 14:18 Ambulatory Aids Uses ambulatory device + 08/06/24 14:18 Tubes/Lines With any additional score 08/06/24 14:18 Gait Evaluation No gait disturbance 08/06/24 14:18 Cognition No cognitive impairment 08/06/24 14:18 Fall Total Score 53 08/06/24 14:18 Level of Risk High Risk 08/06/24 14:18 Problems (Last Updated 08/04/24 @ 16:58 by Bethany Byrd MD) Acute on chronic respiratory failure with hypoxia (Acute) Acute exacerbation of chronic obstructive pulmonary disease (COPD) (Acute) DNR (do not resuscitate) (Acute) Nicotine dependence, cigarettes, uncomplicated (Acute) v v v v v v v v v Sending and/or Receiving Nurses: Please use comment section below to note any information pertinent to the patient hand-off not included above. Information / Comments: Report received from: Shari Fierro RN
[2024-08-06] MEDS: MORPHine 2 MG/ML SYR IVP (17:50)
--- NOTE | 2024-08-06 18:00 | RESPIRATORY ---
08/06/2024 Pt wears 4L NC at baseline; [facility] [place].
[2024-08-06] MEDS: QUEtiapine 50 MG TAB 100 MG PO (19:37)
[2024-08-06] MEDS: lamoTRIgine 100 MG TAB PO (19:38)
[2024-08-06] MEDS: Docusate Sodium 100 MG CAP PO (19:38)
[2024-08-06] MEDS: traZODone 100 MG TAB PO (19:38)
[2024-08-06] MEDS: Normal Saline Flush 10 ML SYR IVP (19:44)
[2024-08-06] MEDS: Budesonide/Formoterol 160/4.5 6 GM 60 PUFF INH IH (20:11)
[2024-08-06] MEDS: Benzonatate 100 MG CAP PO (23:04)
[2024-08-07] VITALS (21 sets, daily range): BP systolic 112–174; BP diastolic 57–84; PULSE 64–104; RESP 11–26; O2SAT 91–95
[2024-08-07] MEDS: Normal Saline Flush 10 ML SYR IVP ×3 (04:12→20:10)
[2024-08-07 07:03] LABS: HCT 32.6 % (40.0-50.0); MCH 30.5 pg (27.0-33.0); MCHC 33.7 % (32.0-36.0); MCV 90 fL (80-95); Platelet Count 377 10^3/uL (130-400); RBC 3.61 10^6/uL (4.36-5.78); RDW 14.9 % (11.8-14.1); RDW-SD 48.8 fL; WBC 10.54 10^3/uL (4.4-10.8)
[2024-08-07 07:21] LABS: Anion Gap 4.6 mmol/L (3-11); BUN 20 mg/dL (7-18); CO2 32.4 mmol/L (21.0-32.0); CREATININE 0.9 mg/dL (0.70-1.30); Calcium 9.6 mg/dL (8.5-10.1); Chloride 102 mmol/L (98-107); Estimated GFR 93.03 (mL/min/1.73m2); Glucose 109 mg/dL (74-106); Potassium 4.3 mmol/L (3.5-5.1); Sodium 139 mmol/L (136-145)
[2024-08-07] MEDS: Budesonide/Formoterol 160/4.5 6 GM 60 PUFF INH IH ×2 (07:54→20:10)
[2024-08-07] MEDS: Tiotropium Bromide-Respimat 10 PUFF INH 2 PUFF IH (07:54)
[2024-08-07] MEDS: Polyethylene Glycol 3350 17 GM PACKET PO (08:00)
[2024-08-07] MEDS: Enoxaparin 40 MG/0.4 ML SYR SC (08:00)
[2024-08-07] MEDS: Docusate Sodium 100 MG CAP PO ×2 (08:01→20:08)
[2024-08-07] MEDS: Vitamins B Comp w/C TAB 1 TAB PO (08:01)
[2024-08-07] MEDS: Meloxicam 15 MG TAB PO (08:01)
[2024-08-07] MEDS: Benzonatate 100 MG CAP PO ×3 (08:01→20:09)
[2024-08-07] MEDS: Escitalopram 20 MG TAB PO (08:02)
[2024-08-07] MEDS: Clopidogrel 75 MG TAB PO (08:02)
[2024-08-07] MEDS: predniSONE 20 MG TAB 40 MG PO (08:02)
[2024-08-07] MEDS: Atorvastatin 20 MG TAB PO (08:02)
[2024-08-07] MEDS: lamoTRIgine 100 MG TAB PO ×2 (08:02→20:09)
[2024-08-07] MEDS: Lisinopril 10 MG TAB PO (08:02)
[2024-08-07] MEDS: Omeprazole 20 MG CAPCR PO (08:03)
[2024-08-07] MEDS: Fluticasone NASAL SPRAY 16 GM BTL NS (08:47)
--- NOTE | 2024-08-07 08:53 | W.PM.PROGNOT ---
Date of Service Date of service: 08/07/24 Time of Service: 08:53 Assessment and Plan Assessment and plan (1) Acute exacerbation of chronic obstructive pulmonary disease (COPD): Status: Acute Assessment and plan: - Patient has significant end-stage COPD, is normally on 5 mg prednisone -Did not have hypercapnia or significant hypoxic respiratory failure in the emergency department though did have significant improvement of his respiratory distress and tachypnea after being placed on CPAP -Upon seeing patient on admission, he is back on 1 to 2 L nasal cannula -patient on RA as of AM 08/07 -Continue as needed CPAP for episodes of significant respiratory distress -Patient also on 6 mg IV morphine Q3 as needed for pain or air hunger; has only needed one dose as of AM 07/29 (2) Acute on chronic respiratory failure with hypoxia: Status: Acute Assessment and plan: - As noted above (3) Nicotine dependence, cigarettes, uncomplicated: Status: Acute Assessment and plan: - Recommend smoking cessation discussion as outpatient (4) DNR (do not resuscitate): Status: Acute Assessment and plan: - Per previous COLST patient is a DNR but is okay with trial intubation (5) Nephrostomy present: Status: Acute Assessment and plan: - Patient recently at [facility] and had nephrostomy tube placed on 07/29/2024 -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 Exam Narrative Exam Narrative: Frail, cachectic appearing older gentleman laying in bed in no acute distress, ANO x 4, now on room air, heart regular rhythm, lungs with mild expiratory wheezing throughout bilateral lung talavera, abdomen soft, nontender, nondistended Objective Last Vital Signs Temp 98.4 F 08/06/24 22:01 Pulse 75 08/07/24 08:01 Resp 12 08/07/24 00:02 BP 161/75 H 08/07/24 08:01 Pulse Ox 91 L 08/07/24 08:25 Laboratory Results - last 24 hr 08/06/24 08/06/24 08/06/24 11:32 12:33 14:27 WBC 12.36 H RBC 4.25 L Hgb 12.5 L Hct 37.6 L MCV 89 MCH 29.4 MCHC 33.2 RDW 14.5 H Plt Count 459 H MPV 8.8 Immature Gran % 0.8 Neutrophils % 85.4 Lymphocytes % 5.9 Monocytes % 6.8 Eosinophils % 0.7 Basophils % 0.4 Nucleated RBC % 0.0 Absolute Neutrophils 10.56 H Absolute Lymphocytes 0.73 L Absolute Monocytes 0.84 H Absolute Eosinophils 0.09 Absolute Basophils 0.05 VBG pH 7.42 H VBG pCO2 44 VBG pO2 21 VBG HCO3 28 VBG Total CO2 26 VBG O2 Saturation 33 VBG Base Excess 4 H Sodium 137 Potassium 3.4 L Chloride 98 Carbon Dioxide 28.5 Anion Gap 10.5 BUN 15 Creatinine 1.0 Est GFR (CKD-EPI 2020) 81.98 Glucose 137 H Calcium 9.7 Magnesium 1.5 L Total Bilirubin 0.22 AST 35 ALT 38 Alkaline Phosphatase 115 Troponin I 15 12 Cancelled Total Protein 8.6 H Albumin 3.2 L 08/07/24 05:36 WBC 10.54 RBC 3.61 L Hgb 11.0 L Hct 32.6 L MCV 90 MCH 30.5 MCHC 33.7 RDW 14.9 H Plt Count 377 MPV 9.0 Immature Gran % Neutrophils % Lymphocytes % Monocytes % Eosinophils % Basophils % Nucleated RBC % Absolute Neutrophils Absolute Lymphocytes Absolute Monocytes Absolute Eosinophils Absolute Basophils VBG pH VBG pCO2 VBG pO2 VBG HCO3 VBG Total CO2 VBG O2 Saturation VBG Base Excess Sodium 139 Potassium 4.3 Chloride 102 Carbon Dioxide 32.4 H Anion Gap 4.6 BUN 20 H Creatinine 0.9 Est GFR (CKD-EPI 2020) 93.03 Glucose 109 H Calcium 9.6 Magnesium Total Bilirubin AST ALT Alkaline Phosphatase Troponin I Total Protein Albumin PAWSS Have you Been Recently Intoxicated or Drunk Within the Last 30 days?: No Have you Ever Experienced Previous Episodes of Alcohol Withdrawal?: No Have you ever Experienced Withdrawal Seizures?: No Have you ever Experienced Delirium Tremens(DT)s?: No Have you ever undergone Alcohol Rehabilitation Treatment (i.e, inpt ot outpatient treatment programs)?: Yes Have you ever Experienced Blackouts?: No Have you ever Combined Alcohol with other Downers within the last 90 days?: No Have you ever Combined Alcohol with any other Substance of Abuse during the last 90 days?: No Positive Blood Alcohol level on Presentation? [PCS.BAL]: No Evidence of Increased Autonomic Activity (i.e. HR>120, tremor, sweating, agitation, nausea)?: No Result: 1 Time Spent with Patient Time Spent with Patient: >50 minutes Time was spent: preparing to see the patient(eg.review tests), obtaining and/or reviewing separately otained hiistory, ordering medications,tests, procedures, referring, communicating with other health sub acute care nurse, indepentently interpreting results, counseling the patient and care coordination
--- NOTE | 2024-08-07 09:04 | PDOC.CMIN ---
Date of service: 08/07/24 Time of Service: 09:04 Care Management Initial Assmt Initial Assessment Reason for Hospitalization: COPD Functional Status/Living Situation Patient Presentation: Jimenez was sitting up in bed when CM met with him. He was pleasant in manner and engaged well with CM. Jimenez lives in a mobile home in a [facility] with his friend and roommate Erich. He has one son from whom he is estranged. Jimenez is independent at baseline. He was recently hospitalized at [facility] (D/C'd 07/31/24) for resection of a bladder tumor with nephrostomy tube placement. He has new home health services for RN, PT and [employer]. Jimenez also has home oxygen through [employer]. He uses 4L/min as needed. Jimenez informed CM that he had an incontinence event at home just before coming to the hospital and his mattress, box spring, sheets and pillow had to be discarded and he does not have funds to replace them. CM made a referral to [facility] to see if they had the capacity to assist financially. 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) Instrumental Activities of Daily Living (ADLs): Independent Medications Medication Management: No Issues/Barriers identified Physical Functioning/Mobility Assistive Device: walker Advance Directives Advance Directives: Do you have an Advance Directive: N 12/22/20 11:45 AD On File at [facility]: N 12/22/20 11:45 Date Asked 08/06/24 08/06/24 11:54 AD Date Reviewed COLST On File at [facility] COLST Date Scanned Code Status Resuscitation Status DNR Portal Pt does not currently have a portal and education provided: No Insurance Coverage/Financial Issues Insurance: Medicare Medicaid Care Team Visit Care Team Role Provider Type LING LEBLANC NP Primary Care Provider NON-[facility] STAFF PHYSICIAN Flora Benoit MD Emergency Provider [facility] STAFF PHYSICIAN Reagan Crowe MD Admit Provider [facility] STAFF PHYSICIAN Attending Provider Discharge Potential Discharge Needs: PCP F/U Appt Anticipated Barriers to Discharge: None Identified Patient/Family Education Needs: Review discharge instructions, discuss Ask Me Three Transportation: Private vehicle Plan: Anticipate Jimenez will be discharged home with a resumption of home health services for nursing, PT and [employer] TE[employer]. He will follow up with his PCP and plan of care and transport via [facility]. CM will follow and continue to support discharge planning concerns. PFSH All Active Problems (Updated 08/06/24 @ 17:55 by Reagan Crowe MD) Nephrostomy present (Acute) Acute on chronic respiratory failure with hypoxia (Acute) Acute exacerbation of chronic obstructive pulmonary disease (COPD) (Acute) Pain (Acute) Multifactorial: From bladder tumor? From nephrostomy tube? Started on opiates July 2024 while at [facility]. [facility] palliative care team will manage Frailty syndrome in geriatric patient (Acute) Financial insecurity (Acute) DNR (do not resuscitate) (Acute) See 03/04/2024 COLST. DNR/time limited trial of intubation, +transfer, +treat/abx/IV Advanced care planning/counseling discussion (Acute) Palliative care encounter (Acute) Weight loss (Acute) Chronic fatigue (Acute) Pulmonary cachexia due to chronic obstructive pulmonary disease (Acute) Night sweats (Acute) Unintentional weight loss (Acute) MAKI (acute kidney injury) (Acute) Lumbar transverse process fracture (Acute) Fall (Acute) Pleural nodule (Acute) Nicotine dependence, cigarettes, uncomplicated (Acute) Ataxia (Acute) Dizziness (Acute) Gait abnormality (Acute) Rib fractures (Acute) Memory loss (Acute) Stroke (Chronic) Post concussion syndrome (Acute) Sacroiliac joint pain (Chronic) COPD (chronic obstructive pulmonary disease) (Acute) History of coronary artery disease (Acute) Medical History (Updated 08/06/24 @ 17:55 by Reagan Crowe MD) Hx of dizziness H/O: stroke Spine injury Anxiety with depression Bipolar 1 disorder Insomnia H/O onychomycosis Smoker Eczema Allergic rhinitis Alcohol abuse In remission GERD (gastroesophageal reflux disease) Chronic pain HTN (hypertension) COPD (chronic obstructive pulmonary disease) Coronary artery disease HCAP (healthcare-associated pneumonia) Surgical History (Updated 08/04/24 @ 15:13 by Juli Thapa RN) H/O cystoscopy H/O transurethral resection of bladder tumor (TURBT) History of coronary artery stent placement History of tonsillectomy Rotator Cuff Repair (06/30/16) RIGHT Family History Other Heart disease Hypertension Social History Smoking/Tobacco Use Status: Current every day Tobacco Type: cigarettes Smoking packs per day: 0.5 Smoking cigarettes per day: 10.0 Smoking risk assessment performed?: Yes Alcohol Intake: current Alcohol Intake frequency: a few times a month Alcohol type: beer Drug use: Occasionally Substance use type: marijuana Details: states drinks a 6 pack of beer over a 1 month time frame Household members: none Housing: house Number of Children: 1 current occupation: Disabled Pets and animals: No What type of physical activity do you participate in: walking Seatbelt use: sometimes Do you feel safe at home: Yes Do you feel safe in your relationship?: Yes SDOH(Care Management) Screening Will the Patient Participate in the Screening?: Yes Do you worry about having a steady place to live?: no Problems where you live: lack of heat, smoke detectors missing or not working and Carbon monoxide detectors missing or not working In the past 12 months, have you had to go without electric, gas, oil or water in your home?: yes Have you or anyone in your house had to go without enough food to eat?: no Has lack of transportation kept you from medical appointments or from doing things needed for daily living?: no Has anyone in your support network made you feel unsafe for any reason?: no Health Related Social Needs Health related social needs: inadequate housing(Z59.1) and material hardship(utilities)(Z59.87)
--- NOTE | 2024-08-07 13:11 | CHAPLAIN ---
Jimenez was intently watching a tv show when I visited. I explained my role and offered support. Jimenez said he doesn't have any family but [place] [facility]. They see a lot of animals, Jimenez said. His landlord owns a [place] hundred acres and Jimenez loves living up there.
--- NOTE | 2024-08-07 14:37 | PCNE_ITS ---
Date of service: 08/07/24 Time of Service: 14:37 History of Present Illness Narrative: Mr. Marin is a 68-year-old gentleman from [facility] with advanced oxygen dependent COPD and significant weight loss due to pulmonary cachexia . I have met with him twice in the last 4 months to begin goals of care discussions and serve as extra layer of support. Initial referral made by [facility] pulmonary clinic. He recently was diagnosed with locally invasive bladder cancer with L hydronephrosis. Additional medical problems include previous smoker (QUIT FOUR MONTHS AGO!) history of ataxia with falls, history of anxiety disorder. 7 days ago he underwent 8 cm resection of bladder tumor with L nephrostomy and ferris catheter placement at [facility]. His hospital course was complicated by pain. [facility] palliative Care team was consulted to help with pain. I had a telehealth consult with him yesterday as he was feeling too sick to come to the office. At that time, decision was made to continue short acting oxycodone pain medication until I could see him in person. Unclear at that time whether he would be needing ongoing opiates for pain management and therefore preferred to see him in person to begin long-acting opiates. Yesterday he was feeling much worse and became acutely short of breath. He presented to the ED where he was felt to have acute exacerbation of his chronic COPD. He was admitted to the ER. He needed increased levels of oxygen but is now satting fine on room air (needing increased oxygen intermittently). Also interesting to note that BiPAP was helpful for him. PAIN: He has chronic Left upper anterior chest pain for years. This continues, maybe a bit worse since the surgery. Most pain is Left flank and L middle quadrant radiating to L groin and down to Left scrotum. COmes and goes. (he does not have ureteral stent is as per [facility] d/c note.). -Has received 24 mg IV MS (6 mg IV every 6-7 hours) ove the last 24 hours. Equals 72 mg MME/24 hours -SInce surgery was taking oxycodone 5m 4-5 pills a day. -[facility] providers sent in script to swotch to Oxycontin, but needed DIANA and Radhames's pharmicist was never able to get in touch with prescriber to do this. 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 Was taking up until this admission. Care Team: Primary Care physician: DIANA Avelar Pulmonology: [facility] Pulmonary Neurology: Dr. Spencer (migraine headaches) Cardiology: Dr. Mcnulty Social HX: Lives with 1 roommate (Erich) in [facility]. (roomate also smokes). Also has friend Stiven. Marital Status: Never , no partner in years. 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 Children: 1 son, estranged (Lives in [facility]). Absolutely no contact with family or old friends. Hobbies: I'm lazier than hell, don't do much.... Before that: fishing, (no longer hunting), watches TV, LIkes to watch animals out his back window (Moose, turkey, deer, racoon) Additional Services: Uses RCT No Meals on Wheels Has home health services after discharge from [facility] earlier this week. Impression of currents health status: I have breathing problems and now I have the bladder cancer What bothers you the most: What worries you the most: Goals: To get treatment so he can live as long as he does. Stay home as long as possible. However thinks he would have to get used to living in a mcfp if this is what he needed to do. Looks forward to looking at wildlife from his house. Current information preferences: Function: Ambulation: Walks without aids ADLs: Independent iADLs: Takes RCT to go shopping, Independent. Hearing: Slightly down, no hearing aids. Vision: Needs glasses (uses readers) Cognition: Feels working OK. Falls: None, Driving: Not driving Palliative Performance Scale % Ambulation Activity and Evidence of Disease Self Care Intake Level of Consciousness 100 Full Normal activity, no evidence of disease Full Normal Full 90 Full Normal activity, some evidence of disease Full Normal Full 80 Full Normal activity with effort, some evidence of disease Full Normal or reduced Full 70 Reduced Unable to do normal work, some evidence of disease Full Normal or reduced Full 60 Reduced Unable to do hobby or some housework, significant disease Occasional assist necessary Normal or reduced Full or confusion 50 Mainly sit/lie Unable to do any work, extensive disease Considerable assistance required Normal or reduced Full or confusion 40 Mainly in bed Unable to do any work, extensive disease Mainly assistance Normal or reduced Full, drowsy, or confusion 30 Totally bed bound Unable to do any work, extensive disease Total care Reduced Full, drowsy, or confusion 20 Totally bed bound Unable to do any work, extensive disease Total care Minimal sips Full, drowsy, or confusion 10 Totally bed bound Unable to do any work, extensive disease Total care Mouth care only Drowsy or coma 0 - - - - Patient Score: 70 (taking longer to do work).rites Spiritual history: Hoahaoism, sometimes pray. Not a jew goer. Does not care whether or not he gets last rites ir takes communion Palliative review of systems: Pain: Today reports that it is his chronic low back pain Dyspnea: Slightly better. Only uses oxygen for few hours when his breathing is bad. Otherwise goes without GI symptoms: Appetite: Appetite slightly better. Weight: Weight down 1.8 kg from last visit (back to Nov weight, not at lowest weight) Depression: : MOre issues with going to the bathroom (urinating, frequent small amounts) SLeep: on quietipine to help with sleep, on for years. Anxiety: None Emotional Distress: Spiritual/Existential Distress: Labs: Today Cr: 0.8 Liver panel: Normal Albumin: 3.6 CBC: Hemoglobin 15 Advanced Care Planning: Advanced Directive: slightly up from last visit transfer text denies completed today Health Care Agent: Declines to identify anyone (Family friends). Asked landlord and she declined. Understands might need court appointed guardian. He still prefers not to name anyone. He is comfortable with this for now. COLST: See 03/04/2024 COLST:DNR/ limited trial intubation, +treat, +IV fluids and abx and time limited trial feeding tube. Limitations: Assessment and Plan Assessment and plan (1) Acute exacerbation of chronic obstructive pulmonary disease (COPD): Status: Acute Assessment and plan: Mr. Marin is a 69-year-old gentleman who had been followed by palliative care team because of advanced lung disease with hypoxia. Recently diagnosed with bladder tumor and 8 days ago underwent cystoscopy with excision of 8 cm bladder tumor which was causing left hydronephrosis. Tumor felt to be locally invasive and not completely resected. He has had pain requiring use of opiates since the surgery and is unclear if pain was adequately controlled prior to this admission. He then was admitted yesterday with acute exacerbation of COPD, although now appears he is mostly back to baseline. #Pain: Better description of pain today. Appears he has chronic left upper chest wall pain as well as some orthopedic pain issues. However the acute pain is left flank and left middle quadrant pain radiating into his left testicular area. He does not have a Ureteral stent in place, even though this sounds like classic stent pain. My best guess is that the abdominal pain is from where the tumor was resected. He may also be having some bladder spasms from the indwelling Ferris catheter. He reports he has not seen any blood in the urine coming from the bladder for several days. Was receiving oxycodone 5 mg and sounds like he was taking about 4-5 of these a day prior to admission. Over the last 24 hours has received 24 mg IV morphine for this pain (72 mg morphine oral equivalent). He is eating and I think he is able to take p.o. I agree with [facility] palliative care that we should start him on long-acting. Patient is willing to transition to Long-acting opiate. I recommended that we try morphine extended release. Patient was adamant that we stay with oxycodone as it was working for him prior to admission and there is some was demand that for now. Long discussion as far as informed consent involving the risks, benefits, potential side effects Recommend: Starting patient on OxyContin 10 mg every 12 hours. If hospitalist agrees to starting OxyContin 10 twice daily, I will send a prescription to patient's pharmacy to start the prior approval process so that will be available once he is discharged (depending upon which of his insurance is covers this, we may need to switch to Xtampza, long-acting oxycodone which comes in different strengths) Using oxycodone 5 mg every 4 hours as needed for pain. (Note that at the time of discharge, he picked up a fair amount of this that I had prescribed on 08/05/2024 and does not need additional prescribed). Please start MiraLAX 17 g once daily. He was taking this prior to admission and will need this because of opiates. Recommend resuming patient's meloxicam daily as soon as feasible. #Goals of care: With patient's permission, we discussed both his old diagnosis of lung disease and new diagnosis of locally metastatic bladder cancer. And Explained that because the bladder cancer is locally invasive his lung disease would make major surgery very risky, most likely, treatments going forward are going to be not curative but palliative. Explained in layman's terms and he seemed understand this. The goal is to control the disease so he can have as good of life as possible for as long as possible. He will hopefully be meeting with oncologist in the next 2 weeks and learn more about what options might be available to him as far as lifeprolonging treatment. I encouraged him to bring a friend with him to the appointment. Transfer text As far as goals are concerned, it is important for him to stay friends with his friends, as he knows he will be stressed out at times. He looks forward to going outside and watching the wild animals out the back door. He cannot think of any other goals or things he would enjoy going forward. His biggest fear is of dying, but he understands that everybody has to . He just does not want to in the wrong way. Did not elaborate. He could not name anything that helped him cope or gave him strength when he was up against challenges. He could not think of any abilities that were so critical to his life that he could imagine living without them. He does not want to live in a mcfp, but I guess I could get used to it if I had to . He prefers to be able to be ambulatory and talk, but I guess I could get used to it if I had to . He is willing to go through an awful lot for the possibility of gaining more time. He is looking forward to talking with oncologist. He is currently a DNR with a trial of intubation. I did not explore this further with him today. I will discuss at future visits. I did discuss healthcare agent with him again; he really does not feel that his friends Stiven and Erich would be a good healthcare agent and still believes that court appointed guardian as needed is the best option. Urology: [facility] consult with Dr. Mclaughlin asking about timing of ferris removal and possible cause of pain. He will review case and discuss with Dr. Crowe. FOLLOW UP: I am scheduled to see patient at home visit in 2 weeks. DIrect pt to call palliative office with pain med issues as needed. PCP with [facility] Coordinator: They have referral for pt to meet with Dr. Santamaria . No appt set yet. SHe had called Jimenez 2 days ag and he was feeling to overwhelmed to talk with her. She will call him again in a few days. (2) Pain: Status: Acute (3) Nephrostomy present: Status: Acute (4) DNR (do not resuscitate): Status: Acute (5) Advanced care planning/counseling discussion: Status: Acute (6) Palliative care encounter: Status: Acute (7) Weight loss: Status: Acute (8) Bladder malignancy: Status: Inactive Assessment and plan: 16 to 30 minutes spent today on Advance Care Planning. Patient and family participated voluntarily. Advance care planning may include (not limited to) explanation and discussion of advance directives, choosing and appointing healthcare agents, alternatives to various ACP tools, discussion of (and if indicated, completion of) COLST form, discussion of patient's values and overall goals for treatment, palliative and disease directive care options, ways to avoid hospital readmission including hospice discussions, care preferences should the patient's several other adverse health events.See today's palliative care note for additional information. This note was dictated using speech recognition software. Attempt was made at proofreading, but errors may be present. Please call with questions. PFSH All Active Problems (Updated 08/06/24 @ 17:55 by Reagan Crowe MD) Nephrostomy present (Acute) Acute on chronic respiratory failure with hypoxia (Acute) Acute exacerbation of chronic obstructive pulmonary disease (COPD) (Acute) Pain (Acute) Multifactorial: From bladder tumor? From nephrostomy tube? Started on opiates July 2024 while at [facility]. [facility] palliative care team will manage Frailty syndrome in geriatric patient (Acute) Financial insecurity (Acute) DNR (do not resuscitate) (Acute) See 03/04/2024 COLST. DNR/time limited trial of intubation, +transfer, +treat/abx/IV Advanced care planning/counseling discussion (Acute) Palliative care encounter (Acute) Weight loss (Acute) Chronic fatigue (Acute) Pulmonary cachexia due to chronic obstructive pulmonary disease (Acute) Night sweats (Acute) Unintentional weight loss (Acute) MAKI (acute kidney injury) (Acute) Lumbar transverse process fracture (Acute) Fall (Acute) Pleural nodule (Acute) Nicotine dependence, cigarettes, uncomplicated (Acute) Ataxia (Acute) Dizziness (Acute) Gait abnormality (Acute) Rib fractures (Acute) Memory loss (Acute) Stroke (Chronic) Post concussion syndrome (Acute) Sacroiliac joint pain (Chronic) COPD (chronic obstructive pulmonary disease) (Acute) History of coronary artery disease (Acute) Medical History (Updated 08/06/24 @ 17:55 by Reagan Crowe MD) Hx of dizziness H/O: stroke Spine injury Anxiety with depression Bipolar 1 disorder Insomnia H/O onychomycosis Smoker Eczema Allergic rhinitis Alcohol abuse In remission GERD (gastroesophageal reflux disease) Chronic pain HTN (hypertension) COPD (chronic obstructive pulmonary disease) Coronary artery disease HCAP (healthcare-associated pneumonia) Surgical History (Updated 08/04/24 @ 15:13 by Juli Thapa RN) H/O cystoscopy H/O transurethral resection of bladder tumor (TURBT) History of coronary artery stent placement History of tonsillectomy Rotator Cuff Repair (06/30/16) RIGHT Family History Other Heart disease Hypertension Social History Smoking/Tobacco Use Status: Current every day Tobacco Type: cigarettes Smoking packs per day: 0.5 Smoking cigarettes per day: 10.0 Smoking risk assessment performed?: Yes Alcohol Intake: current Alcohol Intake frequency: a few times a month Alcohol type: beer Drug use: Occasionally Substance use type: marijuana Details: states drinks a 6 pack of beer over a 1 month time frame Household members: none Housing: house Number of Children: 1 current occupation: Disabled Pets and animals: No What type of physical activity do you participate in: walking Seatbelt use: sometimes Do you feel safe at home: Yes Do you feel safe in your relationship?: Yes Exam Narrative Exam Narrative: PLeaseant, calm, cooperative elderly gentleman appearing older than stated age. Intermittent pursed mouth breathing. NO cough, no respiratory distress. Results Last Vital Signs Temp 36.9 C 08/06/24 22:01 Pulse 78 08/07/24 12:01 Resp 22 08/07/24 12:01 BP 138/64 08/07/24 12:01 Pulse Ox 93 08/07/24 12:01 Labs 08/07/24 05:36 08/07/24 05:36 Labs: Laboratory Results - last 24 hr 08/07/24 05:36 WBC 10.54 RBC 3.61 L Hgb 11.0 L Hct 32.6 L MCV 90 MCH 30.5 MCHC 33.7 RDW 14.9 H Plt Count 377 MPV 9.0 Sodium 139 Potassium 4.3 Chloride 102 Carbon Dioxide 32.4 H Anion Gap 4.6 BUN 20 H Creatinine 0.9 Est GFR (CKD-EPI 2020) 93.03 Glucose 109 H Calcium 9.6 Time Spent Time Spent with Patient Time Spent(min): 60
[2024-08-07] MEDS: traZODone 100 MG TAB PO (20:09)
[2024-08-07] MEDS: QUEtiapine 50 MG TAB 100 MG PO (20:09)
[2024-08-08] VITALS (8 sets, daily range): BP systolic 143; BP diastolic 75; PULSE 63–90; RESP 9–20; TEMP 37; O2SAT 89–94
[2024-08-08] MEDS: Normal Saline Flush 10 ML SYR IVP ×2 (04:25→08:12)
[2024-08-08] MEDS: Budesonide/Formoterol 160/4.5 6 GM 60 PUFF INH IH (08:07)
[2024-08-08] MEDS: Tiotropium Bromide-Respimat 10 PUFF INH 2 PUFF IH (08:07)
[2024-08-08] MEDS: predniSONE 20 MG TAB 40 MG PO (08:10)
[2024-08-08] MEDS: Enoxaparin 40 MG/0.4 ML SYR SC (08:11)
[2024-08-08] MEDS: Omeprazole 20 MG CAPCR PO (08:12)
[2024-08-08] MEDS: Vitamins B Comp w/C TAB 1 TAB PO (08:12)
[2024-08-08] MEDS: Polyethylene Glycol 3350 17 GM PACKET PO (08:12)
[2024-08-08] MEDS: Benzonatate 100 MG CAP PO ×2 (08:13→14:14)
[2024-08-08] MEDS: Lisinopril 10 MG TAB PO (08:13)
[2024-08-08] MEDS: Docusate Sodium 100 MG CAP PO (08:13)
[2024-08-08] MEDS: Escitalopram 20 MG TAB PO (08:13)
[2024-08-08] MEDS: lamoTRIgine 100 MG TAB PO (08:13)
[2024-08-08] MEDS: Clopidogrel 75 MG TAB PO (08:13)
[2024-08-08] MEDS: Atorvastatin 20 MG TAB PO (08:13)
[2024-08-08] MEDS: Meloxicam 15 MG TAB PO (08:13)
--- NOTE | 2024-08-08 08:55 | PDOC.CMPRO ---
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 He will follow up with his PCP and Oncology at [facility] and transport with a friend. CM will follow and continue to assess for discharge needs. SDOH(Care Management) Screening Will the Patient Participate in the Screening?: Yes Do you worry about having a steady place to live?: no Problems where you live: lack of heat, smoke detectors missing or not working and Carbon monoxide detectors missing or not working In the past 12 months, have you had to go without electric, gas, oil or water in your home?: yes Have you or anyone in your house had to go without enough food to eat?: no Has lack of transportation kept you from medical appointments or from doing things needed for daily living?: no Has anyone in your support network made you feel unsafe for any reason?: no Health Related Social Needs Health related social needs: inadequate housing(Z59.1) and material hardship(utilities)(Z59.87)
--- NOTE | 2024-08-08 09:05 | W.NUTRFU ---
Date of service: 08/08/24 Time of Service: 09:05 Nutrition Note NOTE: Jimenez is 69yo male admitted with COPD exacerbation with extensive past med history. Pt lives in apartment with room mate, reports they help each other out as far as groceries and meal prep goes. REceives $300/month in SNAP per Jimenez - finds food budget not a significant barrier to eating regularly - reports not having to skip meals at any time due to finances, but due to health conditions and resources, only does a main grocery shopping once per month with a couple side trips if they can go out. Relies on canned items often Takes B12 and Vitamin D at home. Discussed textures and patient agreed it would be easier if meats and tough foods be diced up for him - adjusted his diet order for this. Healthy body weight seems to have been ~75kg 4-5 years ago. Patient reports a weight loss of 60lbs but unsure of time frame. 5kg weight loss noted from weight history over the last 6 months - which is 10%of body weight. NFPE not performed, however patient with obvious wasting of muscle around temporal, clavicular and deltoid areas with squaring of the shoulder noted. Sunken orbitals with decreased SQ fat pads as well as to buccal fat pads. Patient open to oral nutr supplement - will offer very high calorie boost option at 2pm and 7pm nourishment times, which if consumed BID will provide an additional 1,060 kcals and 44g protein. Estimated nutrition needs: 1627kcals (recommend 1800 for weight gain), minimum of 66g protein (1.5g/kg) Recommend: -2,0000IU vitamin D as patient has history of deficiency and states he takes at home -Order liquid protein concentrate TID for additional 45g protein -Repletion of magnesium -Daily weights -Discharge with oral nutrition supplement ordered via DME/pharmacy due to need for extra protein energy at home. -Consider short term artificial nutrition as patient would assuredly benefit and COLST form from february 2024 indicates he would be open to trial course. Time Spent in Nutritional Counseling and Treatment: 10 min
[2024-08-08] MEDS: oxyCODONE-CR 10 MG TABCR PO (11:44)
--- NOTE | 2024-08-08 12:04 | PDOC.HHF2F_ITS ---
Home Health Referral Home Health Orders Clinical synopsis of why skilled professionals are needed: End-stage COPD, bladder tumor, nephrostomy tube Registered Nurse: Check all that apply Instruct on new or changed medication(s)/assess compliance: Ordered Assess for exacerbation of medical condition, instruct patient/caregivers on signs and symptoms to report for early detection: Ordered Physical Therapist: Check all that apply Increase strength & endurance for safe mobility at home: Ordered To design/establish home maintenance program: Ordered Fall reduction therapy program for patient with history of frequent falls: Ordered Home safety evaluation and teaching/gait training including stair management (if applicable): Ordered Better Breathing Program: Ordered Encounter Date and Reason: I certify that a FTF encounter for this patient was performed on August 08, 2024 and that such encounter was related to the primary reason the patient requires home health services. The encounter was conducted in the following manner: * By me as the certifying physician, CARPET INSPECTOR, PA or * By an inpatient physician, CARPET INSPECTOR or PA during an inpatient stay who communicated findings to me, Certification And Authentication I certify that I composed the above information based on my clinical judgment relating to this patient's medical condition and, if applicable, clinical findings communicated to me by the NPP or inpatient physician who performed the FTF encounter. Name of Provider that will be monitoring home health services: Cintia Jones
--- NOTE | 2024-08-08 12:05 | DSE_ITS ---
Date of service: 08/08/24 Time of Service: 15:13 DS: Diagnosis Discharge Diagnosis (1) Acute exacerbation of chronic obstructive pulmonary disease (COPD): Status: Acute (2) Pain: Status: Acute (3) Nephrostomy present: Status: Acute (4) DNR (do not resuscitate): Status: Acute (5) Advanced care planning/counseling discussion: Status: Acute (6) Palliative care encounter: Status: Acute (7) Weight loss: Status: Acute (8) Bladder malignancy: Status: Inactive Discharge Plan Disposition Patient Disposition: Home W/Home Health Services Condition: Good Discharge Details Reason For Visit: Acute Exacerbation of COPD Admit Date/Time: 08/06/24 13:36 Admit Provider: Reagan Crowe Attending Provider: Reagan Crowe Primary Care Provider: LING LEBLANC Hospital Course Hospital Course: Patient initially presented with significant shortness of breath that was ultimately determined to be secondary to significant exacerbation of COPD. Patient does have diagnosis of end-stage COPD and chronic hypoxic respiratory failure, but did respond rather rapidly to administration of steroids. He was also seen by palliative care and patient will continue to follow-up with as an outpatient. Ultimately, given that patient had significant improvement of his shortness of breath, and was actually able to wean down to room air during his hospitalization, it was determined he was stable for discharge home and will have a prolonged steroid taper and follow-up appointments with pulmonology as well as palliative care. Home Meds and New Rx's Prescriptions: New prednisone 10 mg tablet See Taper PO DAILY Qty: 50 0RF Taper: Prednisone 10mg taper 40 mg Daily for 5 Days and 0 Hour 30 mg Daily for 2 Days and 0 Hour 20 mg Daily for 5 Days and 0 Hour 10 mg Daily for 5 Days and 0 Hour Rx Instructions: restart 5mg PO daily once taper complete Continued Oxygen 2 l inhalation .exertion Qty: 1 0RF Rx Instructions: Use 2LPM with exertion escitalopram oxalate 20 mg tablet 20 mg PO DAILY Qty: 1 0RF oxycodone 5 mg tablet 5 mg PO .COMPLEX MDD 30 mg PRN (Reason: pain) Qty: 84 0RF Rx Instructions: 5 mg orally 1-2 pills every 4 hours as needed. NO more than 6 pills in 24 hours. PRN; acetaminophen 500 mg capsule 1,000 mg PO Q6H PRN (Reason: fever) Qty: 100 2RF Rx Instructions: OK to take with oxycodone 5mg polyethylene glycol 3350 [Miralax] 17 gram/dose powder 17 g PO DAILY Qty: 510 4RF oxycodone [OxyContin] 15 mg tablet,oral only,ext.rel.12 hr 15 mg PO Q12H MDD 2 pills Qty: 30 0RF Rx Instructions: Pt currently inpt at [facility], likely being discharged tomorrow. Please let palliative Care Office at [facility] know if PA is needed. Thank you. meloxicam 15 mg tablet 15 mg PO DAILY clopidogrel [Plavix] 75 mg tablet 75 mg PO DAILY Qty: 90 3RF lamotrigine [Lamictal] 100 mg tablet 100 mg PO BID lisinopril 10 mg tablet 10 mg PO DAILY Qty: 90 0RF omeprazole 20 mg capsule,delayed release(DR/EC) 20 mg PO DAILY Qty: 90 0RF vitamin B complex-folic acid 0.4 mg tablet 1 tab PO DAILY fluticasone propionate 50 mcg/actuation spray,suspension 1 spray intranasal BID Patient Comments: pt states not taking 05/28/23 Rx Instructions: administer into each nostril Breztri Aerosphere 160-9-4.8 mcg/actuation HFA aerosol inhaler See Rx Instructions .ROUTE .COMPLEX Qty: 32.1 12RF Dose Instruction: INHALE TWO PUFFS BY MOUTH TWICE A DAY Rx Instructions: INHALE TWO PUFFS BY MOUTH TWICE A DAY ipratropium-albuterol 0.5 mg-3 mg(2.5 mg base)/3 mL solution for nebulization See Rx Instructions .ROUTE .COMPLEX Qty: 30 11RF Dose Instruction: USE 1 VIAL IN NEBULIZER DAILY - for rescue Rx Instructions: USE 1 VIAL IN NEBULIZER DAILY - for rescue albuterol sulfate 90 mcg/actuation HFA aerosol inhaler See Rx Instructions .ROUTE .COMPLEX Qty: 8.5 12RF Dose Instruction: INHALE TWO PUFFS BY MOUTH EVERY 6 HOURS NEEDED FOR SHORTNESS OF BREATH OR WHEEZING Rx Instructions: INHALE TWO PUFFS BY MOUTH EVERY 6 HOURS NEEDED FOR SHORTNESS OF BREATH OR WHEEZING trazodone 100 mg tablet 100 mg PO QHS docusate sodium [Colace] 100 mg capsule 100 mg PO BID Qty: 20 0RF quetiapine 100 mg tablet 100 mg PO HS Patient Comments: TAKE ONE TABLET BY MOUTH EVERY EVENING atorvastatin 20 mg Tablet 20 mg PO DAILY Changed prednisone 5 mg tablet See Rx Instructions .ROUTE .COMPLEX Qty: 90 3RF Dose Instruction: TAKE ONE TABLET BY MOUTH EVERY DAY Rx Instructions: TAKE ONE TABLET BY MOUTH EVERY DAY; restart once prednisone taper is completed Discharge Instructions Activity:: Activity as Tolerated Equipment/Supplies:: No Equipment Needed Diet:: As Tolerated Discharge Orders Discharge Orders: Discharge Order (Routine); Ordered 08/08/24 Ordered By: Reagan Crowe Discharge Data Discharge Date/Time-TO BE ENTERED AT DEPARTURE: 08/08/24 14:50 DS: Summary Time Spent with Patient providing and/or coordinating discharge services: Greater than 30 minutes Status at Discharge Functional status at discharge: independent ambulation Overall status at discharge: patient is back to baseline Mental Status: mental status grossly normal Speech and Movement: speech and movement normal Mood: congruent mood Affect: normal affect Quality:SDOH Health Related Social Needs: Health related social needs inadequate housing(Z59.1), material hardship(utilities)(Z59.87) Exam Narrative Exam Narrative: Frail, cachectic appearing older gentleman laying in bed in no acute distress, ANO x 4, now on room air, heart regular rhythm, lungs with mild expiratory wheezing throughout bilateral lung talavera, abdomen soft, nontender, nondistended Psych Mental Status: mental status grossly normal Speech and Movement: speech and movement normal Mood: congruent mood Affect: normal affect DS: Data Vitals/I&O Vitals and I&O: Vital Signs Temperature 98.6 F 08/08/24 08:29 Temperature Source Temporal Artery Scan 08/06/24 14:57 Pulse 85 08/08/24 08:10 Pulse 90 08/08/24 08:10 Respiratory Rate 20 08/08/24 08:10 Respiratory Effort Labored, Accessory Muscle Use 08/06/24 14:18 Respiratory Depth Shallow 08/06/24 14:18 Blood Pressure 143/75 H 08/08/24 08:10 Blood Pressure Mean 93 08/08/24 08:10 Blood Pressure Position Supine 08/06/24 14:57 Pulse Oximetry 94 08/08/24 08:10 Oxygen Delivery Method Room Air 08/08/24 08:09 Oxygen Flow Rate 0 08/08/24 08:09 Fraction of Inspired Oxygen (FIO2) 21 08/06/24 14:57 Pain Level 8 08/08/24 11:44 Comment aware of elevated BPs 08/06/24 12:31 Intake & Output 08/07/24 08/08/24 08/08/24 17:59 05:59 17:59 Intake Total 1790 / 1790 480 / 480 Output Total 800 / 800 1350 / 2150 325 / 325 Balance 990 / 990 -1350 / -360 155 / 155 Intake: Oral 1790 / 1790 480 / 480 Output: Drainage 150 / 150 75 / 75 Left Lower Posterior 150 / 150 75 / 75 Urine 800 / 800 1200 / 2000 250 / 250 Other: Urine Color Light Kylah Yellow Yellow Urine Appearance Cloudy Clear Clear Comment 100 out of nephrostomy tube 600 from ferris [facility] All Active Problems (Updated 08/06/24 @ 17:55 by Reagan Crowe MD) Nephrostomy present (Acute) Acute on chronic respiratory failure with hypoxia (Acute) Acute exacerbation of chronic obstructive pulmonary disease (COPD) (Acute) Pain (Acute) Multifactorial: From bladder tumor? From nephrostomy tube? [place] [facility] [place] [facility] palliative care team will manage Frailty syndrome in geriatric patient (Acute) Financial insecurity (Acute) DNR (do not resuscitate) (Acute) See 03/04/2024 COLST. DNR/time limited trial of intubation, +transfer, +treat/abx/IV Advanced care planning/counseling discussion (Acute) Palliative care encounter (Acute) Weight loss (Acute) Chronic fatigue (Acute) Pulmonary cachexia due to chronic obstructive pulmonary disease (Acute) Night sweats (Acute) Unintentional weight loss (Acute) MAKI (acute kidney injury) (Acute) Lumbar transverse process fracture (Acute) Fall (Acute) Pleural nodule (Acute) Nicotine dependence, cigarettes, uncomplicated (Acute) Ataxia (Acute) Dizziness (Acute) Gait abnormality (Acute) Rib fractures (Acute) Memory loss (Acute) Stroke (Chronic) Post concussion syndrome (Acute) Sacroiliac joint pain (Chronic) COPD (chronic obstructive pulmonary disease) (Acute) History of coronary artery disease (Acute) Medical History (Updated 08/06/24 @ 17:55 by Reagan Crowe MD) Hx of dizziness H/O: stroke Spine injury Anxiety with depression Bipolar 1 disorder Insomnia H/O onychomycosis Smoker Eczema Allergic rhinitis Alcohol abuse In remission GERD (gastroesophageal reflux disease) Chronic pain HTN (hypertension) COPD (chronic obstructive pulmonary disease) Coronary artery disease HCAP (healthcare-associated pneumonia) Surgical History (Updated 08/04/24 @ 15:13 by Juli Thapa RN) H/O cystoscopy H/O transurethral resection of bladder tumor (TURBT) History of coronary artery stent placement History of tonsillectomy Rotator Cuff Repair (06/30/16) RIGHT Family History Other Heart disease Hypertension Social History Smoking/Tobacco Use Status: Current every day Tobacco Type: cigarettes Smoking packs per day: 0.5 Smoking cigarettes per day: 10.0 Smoking risk assessment performed?: Yes Alcohol Intake: current Alcohol Intake frequency: a few times a month Alcohol type: beer Drug use: Occasionally Substance use type: marijuana Details: states drinks a 6 pack of beer over a 1 month time frame Household members: none Housing: house Number of Children: 1 current occupation: Disabled Pets and animals: No What type of physical activity do you participate in: walking Seatbelt use: sometimes Do you feel safe at home: Yes Do you feel safe in your relationship?: Yes Time Spent with Patient Time Spent with Patient: <45 minutes Time was spent: preparing to see the patient(eg.review tests), obtaining and/or reviewing separately otained hiistory, ordering medications,tests, procedures, referring, communicating with other health health care legal assistant, indepentently interpreting results, counseling the patient and care coordination
[2024-08-08] MEDS: guaiFENesin/D-METHORPHAN HB 5 ML CUP PO (12:54)
--- NOTE | 2024-08-08 13:26 | PDOC.CMDIS ---
Date of service: 08/08/24 Time of Service: 13:26 LACE Index Scoring Tool Questions: Length of Stay (in days): 2 Was the patient admitted via the E.D.?: Yes Comorbidities: Cerebrovascular Disease, Chronic Pulmonary Disease and Any Tumor E.D. 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 He will follow up with his community providers and transport via [facility] coordinated by CM. Patient/Family Education Needs: Review of discharge instructions, limitations, follow up plan and discuss Ask Me Three Services Needed at Discharge: Home Health Care Services and Transportation SDOH Health Related Social Needs: Health related social needs inadequate housing(Z59.1), material hardship(utilities)(Z59.87) Health related social needs: inadequate housing(Z59.1) and material hardship(utilities)(Z59.87) Referrals and interventions: [facility] for [facility]
== END 2024-08-08 14:50 | disposition home health service (06) | DRG 190 ==
LOC: ER 13:53 → ICU 14:42
PROVIDERS: Admitting Provider Family Medicine; Emergency Provider Emergency Medicine; PCP Nurse Practitioner Family; Visit Provider Family Medicine
DX: J44.1 Chronic obstructive pulmonary disease with (acute) exacerbation (principal); J96.21 Acute and chronic respiratory failure with hypoxia; Z68.1 Body mass index [BMI] 19.9 or less, adult; F31.89 Other bipolar disorder; F17.210 Nicotine dependence, cigarettes, uncomplicated; Z66 Do not resuscitate; Z93.6 Other artificial openings of urinary tract status; R63.4 Abnormal weight loss; C67.9 Malignant neoplasm of bladder, unspecified; Z99.81 Dependence on supplemental oxygen; I25.10 Atherosclerotic heart disease of native coronary artery without angina pectoris; I95.9 Hypotension, unspecified; R00.0 Tachycardia, unspecified; R54 Age-related physical debility; E88.A Wasting disease (syndrome) due to underlying condition; R27.0 Ataxia, unspecified; R41.3 Other amnesia; Z86.73 Personal history of transient ischemic attack (TIA), and cerebral infarction without residual deficits; F41.8 Other specified anxiety disorders; F10.11 Alcohol abuse, in remission; K21.9 Gastro-esophageal reflux disease without esophagitis; G89.29 Other chronic pain; I10 Essential (primary) hypertension; F12.90 Cannabis use, unspecified, uncomplicated
CPT/HCPCS: 00123; 36415; 51702; 80048; 80053; 82805; 85027; 93005; 94640; 96365; 96375; 96376; 99285; J1650; 71045; 83735; 84484; 85025; 93010; 94660; 94664; 99223; 99233; 99239; J2270; J2919; J3475; J7512; J7620

== ENCOUNTER 2024-08-12 09:35 | Inpatient (IN) | payer MEDICARE, MEDICAID, SELFPAY ==
[2024-08-12] VITALS (42 sets, daily range): BP systolic 83–212; BP diastolic 44–98; PULSE 62–107; RESP 5–33; TEMP 36.4–37.1; O2SAT 74–100
--- NOTE | 2024-08-12 09:30 | RT.EKG_ITS ---
APPROVED REPORT Exam: Resting ECG Reason for Exam: SOB Patient Location: E HR:94 bpm ECG Measurements Heart Rate 94 AXIS HI 137 P 80 QRSd 96 QRS 75 QT 357 T 148 QTc 448 Conclusion Sinus rhythm. 94 normal axis TWI new from prior
--- NOTE | 2024-08-12 09:51 | W.ED.GENAD ---
Discharge Plan Disposition Patient Disposition: Admit to [facility] Discharge Details Clinical Impression: COVID-19, Pneumonia Admit Date/Time: 08/12/24 12:30 Admit Provider: Sharan Weinstein Attending Provider: Sharan Weinstein Primary Care Provider: LING LEBLANC ED Provider: Shari Vargsa Discharge Data Discharge Date/Time-TO BE ENTERED AT DEPARTURE: 08/12/24 13:57 HPI General Date/Time Provider Initiated Documentation: 08/12/24 09:40. HPI Narrative: Jimenez is a 69year old male who presents to the emergency department today for evaluation of acute shortness of breath starting this morning. Due to significant shortness of breath, patient is unable to provide I just can't breathe today, stating that this is worse than he is usual COPD exacerbation. He denies recent fever/chills, change in baseline dizziness, change in cough, change in eating or drinking. Not sure if he is taking steroids at home, says he is taking was being given to him. He was recently hospitalized from 08/06/2024 to 08/08/2024 for COPD exacerbation. He does report that he recently had nephrostomy tubes placed, not sure when this was performed. Past medical history is significant for COPD, nephrostomy tubes in place due to bladder neoplasm. Physical exam remarkable for cachectic gentleman with significantly increased work of breathing, 1-2 word dyspnea, pursed lip breathing. Scattered tight wheezes throughout lung [place]. Normal heart sounds. Abdomen soft, nondistended, nontender to palpation. Nephrostomy tube in place to L flank, no drainage on dressing. No obvious pedal edema or calf redness/swelling/erythema. D/dx includes but is not limited to: ACS, COPD exacerbation, CHF, obstructive process such as neoplasm, PE, pneumonia, pneumothorax or significant pleural effusion, severe anemia I independently interpreted the following tests: EKG shows normal sinus rhythm, rate 94. Significant for T wave inversions in aVF, V3, V4, V5, V6. This is new since previous on 08/07/24. CBC remarkable for significant leukocytosis, WBC 26.23 (previous on 08/07/24 10.54). VBG reassuring, no acute abnormalities noted. Chest x-ray reassuring, no obvious infiltrates. Hyperinflation noted, consistent with known COPD. D-dimer elevated, 1653. CMP reassuring. Serial troponins flat (30, 29, 24). Lactate elevated at 3.6. BNP slightly elevated 370. COVID-positive. CT chest and abdomen/pelvis performed, question of right lower lobe pneumonia. While in the emergency department, Jimenez received [id number] DuoNebs x 2, Solu-Medrol IV, and IV magnesium. Continuous albuterol neb ordered; patient reports moderate improvement. Dr. Moreno also in to see patient. RT at bedside, patient has tolerated CPAP previously; BiPAP applied. Morphine given for pain, lorazepam for anxiety. Concern for sepsis, as pt meets criteria based on RR and WBC. As pt is hypertensive, no indication at this time for need for fluid resuscitation. Blood cultures to be drawn, as patient is medically frail, will hold off on antibiotics until source of infection identified. Patient positive for COVID with probable pneumonia. Will treat with cefepime and vancomycin for hospital-acquired pneumonia. Discussed case with Dr. Weinstein, hospitalist. Patient to be admitted. Related Data Home Medications ?Medication ?Instructions ?Recorded ?Confirmed lisinopril 10 mg tablet 10 mg PO DAILY #90 tabs 08/19/18 08/12/24 omeprazole 20 mg capsule,delayed 20 mg PO DAILY #90 caps 08/19/18 08/12/24 release meloxicam 15 mg tablet 15 mg PO DAILY 01/27/19 08/12/24 atorvastatin 20 mg tablet 20 mg PO DAILY 04/29/20 08/12/24 Oxygen 2 l inhalation .exertion #1 supp 01/22/23 08/12/24 fluticasone propionate 50 1 spray intranasal BID 04/04/23 08/12/24 mcg/actuation nasal spray,suspension vitamin B complex-folic acid 0.4 1 tab PO DAILY 04/04/23 08/12/24 mg tablet docusate sodium 100 mg capsule 100 mg PO BID #20 caps 05/28/23 08/12/24 (Colace) clopidogrel 75 mg tablet (Plavix) 75 mg PO DAILY #90 tabs 08/23/23 08/12/24 lamotrigine 100 mg tablet 100 mg PO BID 10/23/23 08/12/24 (Lamictal) budesonide 160 mcg-glycopyr 9 See Rx Instructions .Route 11/13/23 08/12/24 mcg-formot 4.8 mcg/actuation HFA .COMPLEX #32.1 grams inhaler ([employer] Aerosphere) escitalopram oxalate 20 mg tablet 20 mg PO DAILY #1 tab 12/04/23 08/12/24 ipratropium 0.5 mg-albuterol 3 mg See Rx Instructions .Route 12/28/23 08/12/24 (2.5 mg base)/3 mL nebulization .COMPLEX #30 ea soln albuterol sulfate 90 mcg/actuation See Rx Instructions .Route 03/16/24 08/12/24 aerosol inhaler .COMPLEX #8.5 grams trazodone 100 mg tablet 100 mg PO QHS 08/04/24 08/12/24 acetaminophen 500 mg capsule 1,000 mg (2 x 500 mg) PO Q6H PRN 08/05/24 08/12/24 fever #100 caps polyethylene glycol 3350 17 17 g PO DAILY Prevent opioid 08/05/24 08/12/24 gram/dose oral powder (Miralax) induced constipation #510 grams quetiapine 100 mg tablet 100 mg PO HS 08/06/24 08/12/24 prednisone 10 mg tablet See Taper PO DAILY #50 tabs 08/08/24 08/12/24 prednisone 5 mg tablet See Rx Instructions .Route 08/08/24 08/12/24 .COMPLEX #90 tabs morphine 15 mg tablet,extended 15 mg PO Q8H pain #42 tabs 08/11/24 08/12/24 release morphine 15 mg immediate release See Rx Instructions PO Q6H PRN 08/12/24 08/12/24 tablet pain #60 tabs Previous Rx's ?Medication ?Instructions ?Recorded lisinopril 10 mg tablet 10 mg PO DAILY #90 tabs 08/19/18 omeprazole 20 mg capsule,delayed 20 mg PO DAILY #90 caps 08/19/18 release Oxygen 2 l inhalation .exertion #1 supp 01/22/23 docusate sodium 100 mg capsule 100 mg PO BID #20 caps 05/28/23 (Colace) clopidogrel 75 mg tablet (Plavix) 75 mg PO DAILY #90 tabs 08/23/23 budesonide 160 mcg-glycopyr 9 See Rx Instructions .Route 11/13/23 mcg-formot 4.8 mcg/actuation HFA .COMPLEX #32.1 grams inhaler (Breztri Aerosphere) escitalopram oxalate 20 mg tablet 20 mg PO DAILY #1 tab 12/04/23 ipratropium 0.5 mg-albuterol 3 mg See Rx Instructions .Route 12/28/23 (2.5 mg base)/3 mL nebulization .COMPLEX #30 ea soln albuterol sulfate 90 mcg/actuation See Rx Instructions .Route 03/16/24 aerosol inhaler .COMPLEX #8.5 grams acetaminophen 500 mg capsule 1,000 mg (2 x 500 mg) PO Q6H PRN 08/05/24 fever #100 caps polyethylene glycol 3350 17 17 g PO DAILY Prevent opioid 08/05/24 gram/dose oral powder (Miralax) induced constipation #510 grams prednisone 10 mg tablet See Taper PO DAILY #50 tabs 08/08/24 prednisone 5 mg tablet See Rx Instructions .Route 08/08/24 .COMPLEX #90 tabs morphine 15 mg tablet,extended 15 mg PO Q8H pain #42 tabs 08/11/24 release morphine 15 mg immediate release See Rx Instructions PO Q6H PRN 08/12/24 tablet pain #60 tabs Allergies Allergy/AdvReac Type Severity Reaction Status Date / Time carbamazepine Allergy Intermediate Hives Unverified 08/12/24 11:57 acetaminophen (From Tylenol) Allergy unknown Verified 08/12/24 11:57 simvastatin Allergy unknown Unverified 08/12/24 11:57 General Stated Complaint: SOB GEMA: 2 Review of Systems Narrative: see HPI Exam Const General: in distress respiratory and frail appearing Nutritional Appearance: cachectic Orientation: alert and awake Resp Effort & Inspection: labored, pursed lip breathing, respiratory distress (moderate), retractions, no stridor, tachypneic and uses accessory muscles Auscultation: diminished lung sounds and wheezes (Tight wheezes in bases) Cardio Rate: regular rate Rhythm: regular rhythm GI Inspection: normal to inspection Palpation: soft, not rigid and nontender Extrem General: no pedal edema and no calf tenderness Course Vital Signs Vital signs: Vital Signs Temperature 36.4 C L 08/12/24 09:43 Pulse 96 H 08/12/24 09:43 Respiratory Rate 21 08/12/24 09:43 Blood Pressure 191/98 H 08/12/24 09:43 Pulse Oximetry 74 L 08/12/24 09:43 Temperature 36.4 C L 08/12/24 09:43 Temperature Source Temporal Artery Scan 08/12/24 09:43 Pulse 96 H 08/12/24 09:43 Respiratory Rate 21 08/12/24 09:43 Blood Pressure 191/98 H 08/12/24 09:43 Pulse Oximetry 74 L 08/12/24 09:43 Oxygen Delivery Method Room Air 08/12/24 09:43 Oxygen Flow Rate 0 08/12/24 09:43 Comment Pt usually on oxygen, put on nonrebreather at 4 L on arrival 08/12/24 09:43 Medical Decision Making Imaging Data Radiologic Study: Radiologist's impression: Accession No. : [id number] Creator : JOSUE BOWEN Dictator : JOSUE BOWEN Juvenile Detention Officer : [employer] : JOSUE BOWEN Approver2 : Report Date : 08/12/2024 12:02:34 Exam(s) CT CHEST PE ABD PELVIS W EXAM: CT CHEST PE ABD PELVIS W CLINICAL HISTORY: SOB, chest pain. TECHNIQUE: Imaging Protocol: Axial CT angiography was performed with multi-slice acquisition and multi-planar and/or 3D reconstructions. Computer aided detection (CAD) was utilized. CONTRAST MATERIAL: Intravenous: Omnipaque 350contrast volume:98 mL COMPARISON: CT CT CHEST PE CTA from 04/17/[address] ABDOMEN PELVIS CTA from 04/17/[address] CHEST LUNG CANCER SCREEN from 07/22/2024 FINDINGS: The examination is limited due to patient motion artifact. CHEST: Tracheobronchial tree: Patent where visualized. No evidence of bronchiectasis. Pulmonary parenchyma: Pulmonary emphysematous changes are present. There is a small infiltrate seen in the right lower lobe. The lungs are otherwise clear. There is stable scarring seen in the lateral aspect of the right upper lobe. Pulmonary Arteries: No evidence of a pulmonary embolism. Mediastinum and Donna: No dominant adenopathy or fluid collection. The esophagus is unremarkable. Visualized thyroid gland: Unremarkable. Pleura: No effusion or pneumothorax. Heart: The heart is not dilated. No coronary artery calcifications are seen. No pericardial effusion. Aorta: Thoracic aorta non-dilated. No evidence of dissection. Atherosclerotic calcifications are present. Bones: Within normal limits for the patient's age. There are old healed left rib fracture deformities. There are stable compression fracture deformities of T4 and T5.. Soft tissues: Unremarkable. ABDOMEN: Liver: Normal density. There is a new 1.1 cm hypodense lesion in the posterior segment of the right lobe of the liver (series 29, image 14). No other hepatic lesions are seen. Portal, Superior Mesenteric, and Splenic Veins: Unremarkable. Gallbladder and Biliary Tract: No radiodense calculus or dilation. Pancreas: Normal density, no abnormal calcifications or inflammatory process. Spleen: Normal. Adrenals: No masses seen. Kidneys: The patient now has a left nephrostomy tube. Small simple cysts are seen in the left kidney. No follow-up is recommended. There is delayed enhancement of the left kidney. The right kidney is grossly unremarkable. No radiodense stones or obstructive uropathy. Abdominal Aorta: Abdominal portion non-dilated. Atherosclerotic calcification is present. Bowel: No obstruction or bowel wall thickening. No evidence of appendicitis. Peritoneal Cavity: No ascites, collection or mesenteric inflammatory response. No free air. Lymph Nodes: Within normal limits. Bones: Within normal limits for the patient's age. Soft Tissues: Unremarkable. PELVIS: Bladder: There has been interval decrease in size of the mass in the left aspect of the urinary bladder since the prior examination. Reproductive Organs: The prostate gland appears decreased in size. Lymph Nodes: Within normal limits. Bones: Within normal limits. IMPRESSION: 1. No evidence pulmonary embolism, thoracic aortic dissection or aneurysm. 2. There is a small infiltrate seen in the right lower lobe. Infectious or inflammatory process should be considered. 3. Interval decrease in size of the mass seen in the left aspect of the urinary bladder. There is also been a decrease in size of the prostate gland. 4. Interval placement of a left nephrostomy tube. There is delayed enhancement of the left kidney relative to the right. 5. New 1.1 cm hypodense lesion in the posterior segment of the right lobe of the liver. Metastatic disease cannot be excluded. RADIATION DOSE DELIVERED: 433.89mGy.cm Total DLP DATA REPOSITORY: All CT scans at this facility are submitted to the National Radiology Data Registry (NRDR) Dose Index Registry (DIR) with the [employer] (ACR). RADIATION OPTIMIZATION: All CT scans at this facility use at least one of these dose optimization techniques: automated exposure control; mA and/or kV adjustment per patient size (includes targeted exams where dose is matched to clinical indication); or iterative reconstruction. Quality:SDOH Health Related Social Needs: Health related social needs inadequate housing(Z59.1), material hardship(utilities)(Z59.87) PFSH All Active Problems (Updated 08/12/24 @ 15:16 by Shari Grover) Pneumonia (Acute) COVID-19 (Acute) Nephrostomy present (Acute) Pain (Acute) Multifactorial: From bladder tumor? From nephrostomy tube? Started on opiates July 2024 while at [facility] [place] [facility] palliative care team will manage Frailty syndrome in geriatric patient (Acute) Financial insecurity (Acute) DNR (do not resuscitate) (Acute) See 03/04/2024 COLST. DNR/time limited trial of intubation, +transfer, +treat/abx/IV Advanced care planning/counseling discussion (Acute) Palliative care encounter (Acute) Weight loss (Acute) Chronic fatigue (Acute) Pulmonary cachexia due to chronic obstructive pulmonary disease (Acute) Night sweats (Acute) Unintentional weight loss (Acute) MAKI (acute kidney injury) (Acute) Lumbar transverse process fracture (Acute) Fall (Acute) Pleural nodule (Acute) Nicotine dependence, cigarettes, uncomplicated (Acute) Ataxia (Acute) Dizziness (Acute) Gait abnormality (Acute) Rib fractures (Acute) Memory loss (Acute) Stroke (Chronic) Post concussion syndrome (Acute) Sacroiliac joint pain (Chronic) COPD (chronic obstructive pulmonary disease) (Acute) History of coronary artery disease (Acute) Medical History (Updated 08/12/24 @ 15:16 by Shari Grover) Hx of dizziness H/O: stroke Spine injury Anxiety with depression Bipolar 1 disorder Insomnia H/O onychomycosis Smoker Eczema Allergic rhinitis Alcohol abuse In remission GERD (gastroesophageal reflux disease) Chronic pain HTN (hypertension) COPD (chronic obstructive pulmonary disease) Coronary artery disease HCAP (healthcare-associated pneumonia) Surgical History (Updated 08/04/24 @ 15:13 by Juli Thapa RN) H/O cystoscopy H/O transurethral resection of bladder tumor (TURBT) History of coronary artery stent placement History of tonsillectomy Rotator Cuff Repair (06/30/16) RIGHT Family History Other Heart disease Hypertension Social History Smoking/Tobacco Use Status: Current every day Tobacco Type: cigarettes Smoking packs per day: 0.5 Smoking cigarettes per day: 10.0 Smoking risk assessment performed?: Yes Alcohol Intake: current Alcohol Intake frequency: a few times a month Alcohol type: beer Drug use: Occasionally Substance use type: marijuana Details: states drinks a 6 pack of beer over a 1 month time frame Household members: none Housing: house Number of Children: 1 current occupation: Disabled Pets and animals: No What type of physical activity do you participate in: walking Seatbelt use: sometimes Do you feel safe at home: Yes Do you feel safe in your relationship?: Yes
[2024-08-12] MEDS: Albuterol/Ipratropium 3 ML UPD VIAL 6 ML UPD (09:54)
[2024-08-12 10:04] LABS: BE (Venous) 3 mmol/L (-2-3); HCO3 (Venous) 28 mmol/L (23-28); O2 Sat (Venous) 37 %; TCO2 (Venous) 26 mmol/L (24-29); pCO2 (Venous) 51 mmHg (41-51); pH (Venous) 7.35 (7.31-7.41); pO2 (Venous) 24 mmHg
[2024-08-12 10:05] LABS: Absolute Lymphocyte Count 0.55 10^3/uL (1.2-3.4); Absolute Neutrophil Count 24.37 10^3/uL (1.2-6.7); Basophils % 0.2 %; Eosinophils % 0.1 %; HCT 40.7 % (40.0-50.0); HGB 13.3 g/dL (13.5-17.5); Immature Grans % 0.8 %; Lymphocytes % 2.1 %; MCH 29.8 pg (27.0-33.0); MCHC 32.7 % (32.0-36.0); MCV 91 fL (80-95); MPV 8.7 fL (8.0-11.0); Monocytes % 3.9 %; Neutrophils % 92.9 %; Platelet Count 536 10^3/uL (130-400); RBC 4.46 10^6/uL (4.36-5.78); RDW 15.6 % (11.8-14.1); RDW-SD 51.7 fL
[2024-08-12 10:08] LABS: Absolute Basophil Count 0.05 10^3/uL (0.0-0.2); Absolute Eosinophil Count 0.03 10^3/uL (0.0-0.7); Absolute Monocyte Count 1.02 10^3/uL (0.1-0.8)
--- NOTE | 2024-08-12 10:11 | DI.RAD_ITS ---
Exam(s) XR PORTABLE CHEST AP EXAM: XR PORTABLE CHEST AP CLINICAL HISTORY: Shortness of breath, left-sided chest pain TECHNIQUE: 2D digital imaging was performed of the chest. One image was obtained. An AP view was ob tained. COMPARISON: CT CT CHEST LUNG CANCER SCREEN from 07/22/2024 CR XR PORTABLE CHEST AP from 08/06/2024 FINDINGS: MEDIASTINUM: Normal. HEART: Normal. PULMONARY VASCULATURE: Normal. LUNGS: The lungs are hyperinflated suggesting underlying COPD. No focal consolidating infiltrates ar e present. PLEURAL SPACE: No pleural effusion or pneumothorax. BONE:Within normal limits for the patient's age. There are old healed left rib fractures. OTHER FINDINGS:Normal. IMPRESSION: No acute pulmonary findings. DATA REPOSITORY: RADIATION DOSE DELIVERED:
[2024-08-12 10:13] LABS: WBC 26.23 10^3/uL (4.4-10.8)
[2024-08-12] MEDS: methylPREDNISolone SUCC 125 MG VIAL IVP (10:20)
[2024-08-12] MEDS: MAGNESIUM SULFATE 2 GM/50 ML BAG IV_INF (10:21)
[2024-08-12] MEDS: Albuterol 2.5 MG/3 ML INH SOLN VIAL 10 MG UPD (10:27)
[2024-08-12 10:28] LABS: Diff Comment Agrees w/ Instrument; RBC Morphology Normal
[2024-08-12 10:35] LABS: D-Dimer 1653 ng/mlFEU (<500)
[2024-08-12 10:38] LABS: ALT 30 U/L (16-63); AST 20 U/L (15-37); Albumin 3.4 g/dL (3.4-5.0); Alkaline Phosphatase 98 U/L (46-116); Anion Gap 11.9 mmol/L (3-11); BUN 19 mg/dL (7-18); CO2 28.1 mmol/L (21.0-32.0); Calcium 9.4 mg/dL (8.5-10.1); Chloride 95 mmol/L (98-107); Estimated GFR 81.98 (mL/min/1.73m2); Glucose 120 mg/dL (74-106); Magnesium 1.7 mg/dL (1.8-2.4); NT-proBNP 370 pg/mL (<300); Potassium 4.8 mmol/L (3.5-5.1); Sodium 135 mmol/L (136-145); Total Protein 8.5 g/dL (6.4-8.2); Troponin I 30 ng/L (<or=76)
[2024-08-12] MEDS: MORPHine 4 MG/ML SYR IVP (10:44)
[2024-08-12 11:00] LABS: Lactate 3.6 mmol/L (0.6-1.4)
[2024-08-12] MEDS: Normal Saline - Diluent 50 ML VIAL IJ (11:16)
[2024-08-12 11:20] LABS: Troponin I 29 ng/L (<or=76)
[2024-08-12] MEDS: Omnipaque 350 MG/ML 100 ML BTL IJ (11:25)
[2024-08-12 11:31] LABS: Procalcitonin < 0.10 ng/mL
--- NOTE | 2024-08-12 11:35 | DI.CT_ITS ---
Exam(s) CT CHEST PE ABD PELVIS W EXAM: CT CHEST PE ABD PELVIS W CLINICAL HISTORY: SOB, chest pain. TECHNIQUE: Imaging Protocol: Axial CT angiography was performed with multi-slice acquisition and mu lti-planar and/or 3D reconstructions. Computer aided detection (CAD) was utilized. CONTRAST MATERIAL: Intravenous: Omnipaque 350contrast volume:98 mL COMPARISON: CT CT CHEST PE CTA from 04/17/[address] ABDOMEN PELVIS CTA from 04/17/[address] CHEST LUNG CANCER SCREEN from 07/22/2024 FINDINGS: The examination is limited due to patient motion artifact. CHEST: Tracheobronchial tree: Patent where visualized. No evidence of bronchiectasis. Pulmonary parenchyma: Pulmonary emphysematous changes are present. There is a small infiltrate seen in the right lower lobe. The lungs are otherwise clear. There is stable scarring seen in the latera l aspect of the right upper lobe. Pulmonary Arteries: No evidence of a pulmonary embolism. Mediastinum and Donna: No dominant adenopathy or fluid collection. The esophagus is unremarkable. Visualized thyroid gland: Unremarkable. Pleura: No effusion or pneumothorax. Heart: The heart is not dilated. No coronary artery calcifications are seen. No pericardial effusion. Aorta: Thoracic aorta non-dilated. No evidence of dissection. Atherosclerotic calcifications are pre sent. Bones: Within normal limits for the patient's age. There are old healed left rib fracture deformities . There are stable compression fracture deformities of T4 and T5.. Soft tissues: Unremarkable. ABDOMEN: Liver: Normal density. There is a new 1.1 cm hypodense lesion in the posterior segment of the right l obe of the liver (series 29, image 14). No other hepatic lesions are seen. Portal, Superior Mesenteric, and Splenic Veins: Unremarkable. Gallbladder and Biliary Tract: No radiodense calculus or dilation. Pancreas: Normal density, no abnormal calcifications or inflammatory process. Spleen: Normal. Adrenals: No masses seen. Kidneys: The patient now has a left nephrostomy tube. Small simple cysts are seen in the left kidney . No follow-up is recommended. There is delayed enhancement of the left kidney. The right kidney i s grossly unremarkable. No radiodense stones or obstructive uropathy. Abdominal Aorta: Abdominal portion non-dilated. Atherosclerotic calcification is present. Bowel: No obstruction or bowel wall thickening. No evidence of appendicitis. Peritoneal Cavity: No ascites, collection or mesenteric inflammatory response. No free air. Lymph Nodes: Within normal limits. Bones: Within normal limits for the patient's age. Soft Tissues: Unremarkable. PELVIS: Bladder: There has been interval decrease in size of the mass in the left aspect of the urinary bladd er since the prior examination. Reproductive Organs: The prostate gland appears decreased in size. Lymph Nodes: Within normal limits. Bones: Within normal limits. IMPRESSION: 1. No evidence pulmonary embolism, thoracic aortic dissection or aneurysm. 2. There is a small infiltrate seen in the right lower lobe. Infectious or inflammatory process shou ld be considered. 3. Interval decrease in size of the mass seen in the left aspect of the urinary bladder. There is al so been a decrease in size of the prostate gland. 4. Interval placement of a left nephrostomy tube. There is delayed enhancement of the left kidney re lative to the right. 5. New 1.1 cm hypodense lesion in the posterior segment of the right lobe of the liver. Metastatic d isease cannot be excluded. RADIATION DOSE DELIVERED: 433.89mGy.cm Total DLP DATA REPOSITORY: All CT scans at this facility are submitted to the National Radiology Data Registry (NRDR) Dose Index Registry (DIR) with the [employer] (ACR). RADIATION OPTIMIZATION: All CT scans at this facility use at least one of these dose optimization te chniques: automated exposure control; mA and/or kV adjustment per patient size (includes targeted exa ms where dose is matched to clinical indication); or iterative reconstruction.
[2024-08-12] MEDS: MORPHine 10 MG/ML VIAL 2 MG IVP ×2 (12:00→12:16)
[2024-08-12 12:14] LABS: Lab Add On Test DONE
[2024-08-12 12:15] LABS: Lab Add On Test DONE
[2024-08-12] MEDS: LORazepam 2 MG/ML VIAL 0.5 MG IVP (12:35)
--- NOTE | 2024-08-12 12:38 | ED.PROG_ITS ---
Date of service: 08/12/24 Time of Service: 12:38 Medical Decision Making Patient discussed with nurse practitioner, a [id number] evaluation was performed by me secondary to medical complexity. Patient is a unwell 69-year-old gentleman with severe COPD. Patient had recent hospitalization and discharge for the same. On return today his white blood cell count is noted to be more significantly elevated at 26. This could be secondary to steroids, but infectious etiology also considered. VBG does not indicate an acute respiratory failure. His oxygen saturations are not requiring significant support, but his work of breathing did warrant placement on CPAP. Given persistent need for respiratory support, patient will be admitted to the hospital for further manage Quality:SDOH Health Related Social Needs: Health related social needs inadequate housing(Z59.1), material hardship(utilities)(Z59.87) Critical Care Time Critical Care Time Critical Care Time: Yes Total Critical Care Time: 34 Attestation: CRITICAL CARE Upon my evaluation, this patient had a high probability of imminent or life- threatening deterioration due to respiratory distress, COVID which required my direct attention, intervention, and personal management. I have personally provided 34 minutes of critical care time exclusive of time spent on separately billable procedures. Time includes review of laboratory data, radiology results, discussion with consultants, and monitoring for potential decompensation. Interventions were performed as documented above Discharge Plan Disposition Patient Disposition: Admit to [facility] Discharge Details Primary Care Provider: LING LEBLANC ED Provider: Shari Vargas Home Meds and New Rx's Prescriptions: No Action Oxygen 2 l inhalation .exertion Qty: 1 0RF Rx Instructions: Use 2LPM with exertion escitalopram oxalate 20 mg tablet 20 mg PO DAILY Qty: 1 0RF acetaminophen 500 mg capsule 1,000 mg PO Q6H PRN (Reason: fever) Qty: 100 2RF Rx Instructions: OK to take with oxycodone 5mg polyethylene glycol 3350 [Miralax] 17 gram/dose powder 17 g PO DAILY Qty: 510 4RF meloxicam 15 mg tablet 15 mg PO DAILY clopidogrel [Plavix] 75 mg tablet 75 mg PO DAILY Qty: 90 3RF lamotrigine [Lamictal] 100 mg tablet 100 mg PO BID lisinopril 10 mg tablet 10 mg PO DAILY Qty: 90 0RF omeprazole 20 mg capsule,delayed release(DR/EC) 20 mg PO DAILY Qty: 90 0RF vitamin B complex-folic acid 0.4 mg tablet 1 tab PO DAILY fluticasone propionate 50 mcg/actuation spray,suspension 1 spray intranasal BID Patient Comments: pt states not taking 05/28/23 Rx Instructions: administer into each nostril Joon Cartagenaphere 160-9-4.8 mcg/actuation HFA aerosol inhaler See Rx Instructions .ROUTE .COMPLEX Qty: 32.1 12RF Dose Instruction: INHALE TWO PUFFS BY MOUTH TWICE A DAY Rx Instructions: INHALE TWO PUFFS BY MOUTH TWICE A DAY ipratropium-albuterol 0.5 mg-3 mg(2.5 mg base)/3 mL solution for nebulization See Rx Instructions .ROUTE .COMPLEX Qty: 30 11RF Dose Instruction: USE 1 VIAL IN NEBULIZER DAILY - for rescue Rx Instructions: USE 1 VIAL IN NEBULIZER DAILY - for rescue albuterol sulfate 90 mcg/actuation HFA aerosol inhaler See Rx Instructions .ROUTE .COMPLEX Qty: 8.5 12RF Dose Instruction: INHALE TWO PUFFS BY MOUTH EVERY 6 HOURS NEEDED FOR SHORTNESS OF BREATH OR WHEEZING Rx Instructions: INHALE TWO PUFFS BY MOUTH EVERY 6 HOURS NEEDED FOR SHORTNESS OF BREATH OR WHEEZING trazodone 100 mg tablet 100 mg PO QHS morphine 15 mg tablet extended release 15 mg PO Q8H MDD 3 pills plus add short acting) Qty: 42 0RF Rx Instructions: PLEASE prioritize this. THey denied our PA for fentanyl and we just heard now, TY CALL office if denied, TY morphine 15 mg tablet See Rx Instructions PO Q6H MDD 4 pill (60 mg) of short acting PRN (Reason: pain) Qty: 60 0RF Rx Instructions: STart with a HALF of a tablet every 4 hours as needed for pain management (use in addition to regular LONG ACTING MORPHINE). CAn increase to a WHOLE pill every 4 hours as needed. orally every 6 hours PRN; docusate sodium [Colace] 100 mg capsule 100 mg PO BID Qty: 20 0RF quetiapine 100 mg tablet 100 mg PO HS Patient Comments: TAKE ONE TABLET BY MOUTH EVERY EVENING prednisone 10 mg tablet See Taper PO DAILY Qty: 50 0RF Taper: Prednisone 10mg taper 40 mg Daily for 5 Days and 0 Hour 30 mg Daily for 2 Days and 0 Hour 20 mg Daily for 5 Days and 0 Hour 10 mg Daily for 5 Days and 0 Hour Rx Instructions: restart 5mg PO daily once taper complete prednisone 5 mg tablet See Rx Instructions .ROUTE .COMPLEX Qty: 90 3RF Dose Instruction: TAKE ONE TABLET BY MOUTH EVERY DAY Rx Instructions: TAKE ONE TABLET BY MOUTH EVERY DAY; restart once prednisone taper is completed atorvastatin 20 mg Tablet 20 mg PO DAILY
[2024-08-12] MEDS: CEFEPIME 1 GM in Normal Saline 50 ML IVPB (12:39)
[2024-08-12] MEDS: Normal Saline 250 ML IV (13:40)
[2024-08-12] MEDS: VANCOMYCIN/WATER (PEG) 1 GM/200 ML BAG IVPB (13:42)
[2024-08-12 13:45] LABS: Influenza A PCR Negative (Negative); Influenza B PCR Negative (Negative); RSV PCR Negative (Negative)
[2024-08-12 13:46] LABS: COVID-19 PCR Positive (Negative); Source Nasopharynx
[2024-08-12 14:13] LABS: Troponin I 24 ng/L (<or=76)
[2024-08-12] MEDS: Normal Saline Flush 10 ML SYR IVP ×4 (15:15→19:35)
--- NOTE | 2024-08-12 15:27 | HPE_ITS ---
Date of service: 08/12/24 Time of Service: 15:27 Assessment and Plan Assessment and plan (1) Pneumonia due to COVID-19 virus: Status: Acute Assessment and plan: Acute hypoxic respiratory failure on admission, stabilized on BiPAP, now in ICU Cause is likely COVID-19. With hypoxia and NIV will treat with dexamethasone, remdesavir, and tocilizumab. With recent admission was treated for hospital acquired pneumonia before COVID result was back. Given high risk patient, high WBC/lactate, will continue this. FIONA christianson sent. Calcitonin low, plan to repeat at 48 hours and stop antibiotics if still low. (2) Severe sepsis: Status: Acute Assessment and plan: Meets criteria with elevated RR, HR>90, WBC, lactate. This may be COVID but covering with cefepime and vancomycin at least 48 hours. Follow blood cultures as well as procalcitonin as above. (3) Nephrostomy present: Status: Acute Assessment and plan: Placed 07/30 at due to obstructing bladder mass. Urology asked to take a look as left open per nursing. He does urinate still. (4) Bladder malignancy: Status: Inactive Assessment and plan: pending treatment at . New liver lesion should be worked up, but will defer to oncology. Qualifiers: Bladder location: unspecified site Qualified Code(s): C67.9 - Malignant neoplasm of bladder, unspecified (5) COPD (chronic obstructive pulmonary disease): Status: Acute Assessment and plan: With COVID associated exacerbation, treating with steroids, use inhalers instead of nebs given COVID. Qualifiers: COPD type: COPD with acute exacerbation Qualified Code(s): J44.1 - Chronic obstructive pulmonary disease with (acute) exacerbation (6) Pain: Status: Acute Assessment and plan: Chronic pain with worsening associated with bladder malignancy. Seeing palliative. Discharged on oxycontin per , but unable to fill to to PA. Switched to morphine basal/bolus on palliative recommendations, continue this. (7) Coronary artery disease: Assessment and plan: Some pleuritic pain that is not c/w cardiac, negative troponins x 3. T-wave changes, may be early pericarditis but not evident on CT. Monitor symptoms. Continue outpatient cardiac meds. Qualifiers: Coronary Disease-Associated Artery/Lesion type: [place] artery [place] vs. transplanted heart: [place] heart Associated angina: without angina Q ualified Code(s): I25.10 - Atherosclerotic heart disease of [place] coronary artery without angina pectoris (8) Bipolar 1 disorder: Assessment and plan: continue outpatient medical management, appears stable. (9) Compression fracture of T4 vertebra: Status: Acute Assessment and plan: On 07/[address] non-[address], MRI recommended, but since then contrast CT at did not suggest malignancy, contrast CT on this admission c/w healing compression fx and not suggestive of malignancy or infection. I don't think MRI is warranted. (10) Opioid-induced constipation: Status: Acute Assessment and plan: Try suppository in combination with PEG. If not working consider a dose of Relastor. (11) Advanced care planning/counseling discussion: Status: Acute Assessment and plan: Palliative patient, discussed with Dr. Salazar and will consult. Pain management as above Was DNR, but clearly telling me today he wants full code. Prognosis for surviving resuscitation or intubation is not good, but change status for now. (12) DVT prophylaxis: Status: Acute Assessment and plan: LMWH, high risk with COVID History of Present Illness History of Present Illness Chief Complaint: short of breath Narrative: 69 yo M with COPD, CAD s/p remote [place], h/o CVA, former smoker, recent diagnosis of bladder cancer and unintentional weight loss who was recently admitted 08/06- for COPD exacerbation who returned to the emergency room with worsening shortness of breath that started this morning. He states he has been short of breath for the past month at least. During his last admission, he responded quickly to steroid and was discharged on a prolonged taper. He was taking his medicaiton including his prendisone. This morning started feeling more short of breath not long after waking up. He has some cough and minimal sputum and mild sharp pain in his chest when he breaths. He has no known sick contacts but was just in the hospital. He has not had runny nose, nasal congestion, sore throat, or fever/chills. He as admitted 07/30- at [facility] and had nephrostomy tube placed on the left due to obstructing bladder mass. Bladder cancer diagnosed, locally invasive, but CT C/A/P negative at that time for metastatic disease. CT chest 07/22 however showed new possible spinal lesion at T4-5, MRI recommended. Review of Systems All systems reviewed & are unremarkable except as noted in HPI and below Gastrointestinal Gastrointestinal: Denies melena, Denies hematochezia, Reports constipation, Denies diarrhea, Denies nausea and Denies vomiting Comments: last BM he remembers was over a week ago Genitourinary Genitourinary: Reports hematuria (not currently) and Denies genital pain PFSH All Active Problems (Updated 08/12/24 @ 16:40 by Sharan Weinstein) Compression fracture of T4 vertebra (Acute) Severe sepsis (Acute) Opioid-induced constipation (Acute) DVT prophylaxis (Acute) Pneumonia due to COVID-19 virus (Acute) Pneumonia (Acute) COVID-19 (Acute) Nephrostomy present (Acute) Pain (Acute) Multifactorial: From bladder tumor? From nephrostomy tube? Started on opiates July 2024 while at [facility] [place] [place] [facility] palliative care team will manage Frailty syndrome in geriatric patient (Acute) Financial insecurity (Acute) DNR (do not resuscitate) (Acute) See 03/04/2024 COLST. DNR/time limited trial of intubation, +transfer, +treat/abx/IV Advanced care planning/counseling discussion (Acute) Palliative care encounter (Acute) Weight loss (Acute) Chronic fatigue (Acute) Pulmonary cachexia due to chronic obstructive pulmonary disease (Acute) Night sweats (Acute) Unintentional weight loss (Acute) Lumbar transverse process fracture (Acute) MAKI (acute kidney injury) (Acute) Fall (Acute) Pleural nodule (Acute) Ataxia (Acute) Dizziness (Acute) Gait abnormality (Acute) Rib fractures (Acute) Memory loss (Acute) Stroke (Chronic) Post concussion syndrome (Acute) Sacroiliac joint pain (Chronic) COPD (chronic obstructive pulmonary disease) (Acute) Medical History (Updated 08/12/24 @ 16:40 by Sharan Weinstein) Arthritis of right acromioclavicular joint (06/19/16) Hx of dizziness H/O: stroke Spine injury Anxiety with depression Bipolar 1 disorder Insomnia H/O onychomycosis Smoker Eczema Allergic rhinitis Alcohol abuse In remission GERD (gastroesophageal reflux disease) Chronic pain HTN (hypertension) COPD (chronic obstructive pulmonary disease) Coronary artery disease HCAP (healthcare-associated pneumonia) Surgical History (Updated 08/12/24 @ 15:53 by Sharan Weinstein) Nephrostomy status left, 07/30/24 History of shoulder surgery (06/30/16) H/O cystoscopy H/O transurethral resection of bladder tumor (TURBT) History of coronary artery stent placement History of tonsillectomy Rotator Cuff Repair (06/30/16) RIGHT Family History Other Heart disease Hypertension Social History (Updated 08/12/24 @ 15:54 by Sharan Weinstein) Smoking/Tobacco Use Status: Current every day Tobacco Type: cigarettes Smoking packs per day: 0.5 Smoking cigarettes per day: 10.0 Smoking risk assessment performed?: Yes Alcohol Intake: current Alcohol Intake frequency: a few times a month Alcohol type: beer Drug use: Occasionally Substance use type: marijuana Details: states drinks a 6 pack of beer over a 1 month time frame Household members: none Housing: house Number of Children: 1 current occupation: Disabled Pets and animals: No What type of physical activity do you participate in: walking Seatbelt use: sometimes Do you feel safe at home: Yes Do you feel safe in your relationship?: Yes Additional Social history: Lives [place] roommate [facility] outside of [facility] Allergies and Home Medications Allergies Allergy/AdvReac Type Severity Reaction Status Date / Time carbamazepine Allergy Intermediate Hives Unverified 08/12/24 11:57 acetaminophen (From Tylenol) Allergy unknown Verified 08/12/24 11:57 simvastatin Allergy unknown Unverified 08/12/24 11:57 Home Medications ?Medication ?Instructions ?Recorded ?Confirmed ?Type lisinopril 10 mg tablet 10 mg PO DAILY #90 tabs 08/19/18 08/12/24 Rx omeprazole 20 mg capsule,delayed 20 mg PO DAILY #90 caps 08/19/18 08/12/24 Rx release meloxicam 15 mg tablet 15 mg PO DAILY 01/27/19 08/12/24 History atorvastatin 20 mg tablet 20 mg PO DAILY 04/29/20 08/12/24 History Oxygen 2 l inhalation .exertion #1 supp 01/22/23 08/12/24 Rx fluticasone propionate 50 1 spray intranasal BID 04/04/23 08/12/24 History mcg/actuation nasal spray,suspension vitamin B complex-folic acid 0.4 1 tab PO DAILY 04/04/23 08/12/24 History mg tablet docusate sodium 100 mg capsule 100 mg PO BID #20 caps 05/28/23 08/12/24 Rx (Colace) clopidogrel 75 mg tablet (Plavix) 75 mg PO DAILY #90 tabs 08/23/23 08/12/24 Rx lamotrigine 100 mg tablet 100 mg PO BID 10/23/23 08/12/24 History (Lamictal) budesonide 160 mcg-glycopyr 9 See Rx Instructions .Route 11/13/23 08/12/24 Rx mcg-formot 4.8 mcg/actuation HFA .COMPLEX #32.1 grams inhaler (Breztri Aerosphere) escitalopram oxalate 20 mg tablet 20 mg PO DAILY #1 tab 12/04/23 08/12/24 Rx ipratropium 0.5 mg-albuterol 3 mg See Rx Instructions .Route 12/28/23 08/12/24 Rx (2.5 mg base)/3 mL nebulization .COMPLEX #30 ea soln albuterol sulfate 90 mcg/actuation See Rx Instructions .Route 03/16/24 08/12/24 Rx aerosol inhaler .COMPLEX #8.5 grams trazodone 100 mg tablet 100 mg PO QHS 08/04/24 08/12/24 History acetaminophen 500 mg capsule 1,000 mg (2 x 500 mg) PO Q6H PRN 08/05/24 08/12/24 Rx fever #100 caps polyethylene glycol 3350 17 17 g PO DAILY Prevent opioid 08/05/24 08/12/24 Rx gram/dose oral powder (Miralax) induced constipation #510 grams quetiapine 100 mg tablet 100 mg PO HS 08/06/24 08/12/24 History prednisone 10 mg tablet See Taper PO DAILY #50 tabs 08/08/24 08/12/24 Rx prednisone 5 mg tablet See Rx Instructions .Route 08/08/24 08/12/24 Rx .COMPLEX #90 tabs morphine 15 mg tablet,extended 15 mg PO Q8H pain #42 tabs 08/11/24 08/12/24 Rx release morphine 15 mg immediate release See Rx Instructions PO Q6H PRN 08/12/24 08/12/24 Rx tablet pain #60 tabs Exam Narrative Exam Narrative: GEN: Cachectic appearing, alert and oriented x 4, pleasant and cooperative, gives linear history. BiPAP in place, but able to speak in short sentances. HEENT: Head atraumatic. Conjunctiva clear, no icterus. PEERL, EOMI. no rhinorrhea. MMM, OP benign. Neck is supple with no masses or lymphadenopathy, trachea midline LUNGS: Diffusely diminished, no rales or wheezes on my exam, mild increase in effort, BiPAP in place CV: distant but regular, with no audible murmurs, gallops, or rubs. ABD: active bowel sounds, soft, but midly distented and diffusely tender, no rebound. EXT: no cyanosis, clubbing, or edema MSK: No joint redness or swelling. Neprhostomy in place left. NEURO: CN 2-12 grossly intact. Normal movement of 4 extremities. Normal speech and coordination. Normal speech. No tremor SKIN: No rashes or open wounds. PSYCH: normal mood and affect, normal thought process Results Imaging Chest x-ray: report reviewed and image reviewed EKG: report reviewed and image reviewed (NSR, nl axis, t-waves negative diffusely, which is new from 08/07. No STEMI.) Imaging Studies: CT C/A/P: 1. No evidence pulmonary embolism, thoracic aortic dissection or aneurysm. 2. There is a small infiltrate seen in the right lower lobe. Infectious or inflammatory process should be considered. 3. Interval decrease in size of the mass seen in the left aspect of the urinary bladder. There is also been a decrease in size of the prostate gland. 4. Interval placement of a left nephrostomy tube. There is delayed enhancement of the left kidney relative to the right. 5. New 1.1 cm hypodense lesion in the posterior segment of the right lobe of the liver. Metastatic disease cannot be excluded. T4-5 lesions read as old compression fractures Labs 08/12/24 09:52 08/12/24 09:50 Labs: Laboratory Results - last 24 hr 08/12/24 08/12/24 08/12/24 09:50 09:52 10:30 WBC 26.23 H* RBC 4.46 Hgb 13.3 L Hct 40.7 MCV 91 MCH 29.8 MCHC 32.7 RDW 15.6 H Plt Count 536 H MPV 8.7 Immature Gran % 0.8 Neutrophils % 92.9 Lymphocytes % 2.1 Monocytes % 3.9 Eosinophils % 0.1 Basophils % 0.2 Nucleated RBC % 0.0 Absolute Neutrophils 24.37 H Absolute Lymphocytes 0.55 L Absolute Monocytes 1.02 H Absolute Eosinophils 0.03 Absolute Basophils 0.05 RBC Morphology Normal D-Dimer 1653 H VBG pH 7.35 VBG pCO2 51 VBG pO2 24 VBG HCO3 28 VBG Total CO2 26 VBG O2 Saturation 37 VBG Base Excess 3 VBG Lactate Sodium 135 L Potassium 4.8 Chloride 95 L Carbon Dioxide 28.1 Anion Gap 11.9 H BUN 19 H Creatinine 1.0 Est GFR (CKD-EPI 2020) 81.98 Glucose 120 H Calcium 9.4 Magnesium 1.7 L Total Bilirubin 0.40 AST 20 ALT 30 Alkaline Phosphatase 98 Troponin I 30 NT-Pro-B Natriuret Pep 370 H Cancelled Total Protein 8.5 H Albumin 3.4 Procalcitonin COVID-19 Source SARS-CoV-2 (PCR) Influenza Type A (PCR) Influenza Type B (PCR) RSV (PCR) Add-On Test Request DONE 08/12/24 08/12/24 08/12/24 10:35 10:50 12:50 WBC RBC Hgb Hct MCV MCH MCHC RDW Plt Count MPV Immature Gran % Neutrophils % Lymphocytes % Monocytes % Eosinophils % Basophils % Nucleated RBC % Absolute Neutrophils Absolute Lymphocytes Absolute Monocytes Absolute Eosinophils Absolute Basophils RBC Morphology D-Dimer VBG pH VBG pCO2 VBG pO2 VBG HCO3 VBG Total CO2 VBG O2 Saturation VBG Base Excess VBG Lactate 3.6 H* Sodium Potassium Chloride Carbon Dioxide Anion Gap BUN Creatinine Est GFR (CKD-EPI 2020) Glucose Calcium Magnesium Total Bilirubin AST ALT Alkaline Phosphatase Troponin I 29 NT-Pro-B Natriuret Pep Total Protein Albumin Procalcitonin < 0.10 COVID-19 Source Nasopharynx SARS-CoV-2 (PCR) Positive A Influenza Type A (PCR) Negative Influenza Type B (PCR) Negative RSV (PCR) Negative Add-On Test Request DONE 08/12/24 13:25 WBC RBC Hgb Hct MCV MCH MCHC RDW Plt Count MPV Immature Gran % Neutrophils % Lymphocytes % Monocytes % Eosinophils % Basophils % Nucleated RBC % Absolute Neutrophils Absolute Lymphocytes Absolute Monocytes Absolute Eosinophils Absolute Basophils RBC Morphology D-Dimer VBG pH VBG pCO2 VBG pO2 VBG HCO3 VBG Total CO2 VBG O2 Saturation VBG Base Excess VBG Lactate Sodium Potassium Chloride Carbon Dioxide Anion Gap BUN Creatinine Est GFR (CKD-EPI 2020) Glucose Calcium Magnesium Total Bilirubin AST ALT Alkaline Phosphatase Troponin I 24 NT-Pro-B Natriuret Pep Total Protein Albumin Procalcitonin COVID-19 Source SARS-CoV-2 (PCR) Influenza Type A (PCR) Influenza Type B (PCR) RSV (PCR) Add-On Test Request Last Vital Signs Temp 36.4 C L 08/12/24 09:43 Pulse 101 H 08/12/24 13:31 Resp 16 08/12/24 13:31 BP 200/81 H 08/12/24 13:31 Pulse Ox 91 L 08/12/24 13:10 Time Spent Time spent with Patient: >75 minutes Time was spent: preparing to see the patient(eg.review tests), obtaining and/or reviewing separately otained hiistory, ordering medications,tests, procedures, referring, communicating with other health pet caregiver, indepentently interpreting results, counseling the patient and care coordination
[2024-08-12] MEDS: Polyethylene Glycol 3350 17 GM PACKET PO (16:24)
[2024-08-12] MEDS: Dexamethasone 4 MG/ML VIAL 6 MG IVP (16:24)
[2024-08-12] MEDS: MORPHine CR 15 MG TABCR PO ×2 (19:20→23:13)
[2024-08-12] MEDS: CEFEPIME 2 GM in Normal Saline 100 ML IVPB (19:20)
[2024-08-12] MEDS: MORPHine 2 MG/ML SYR IVP (19:30)
[2024-08-12] MEDS: Lisinopril 10 MG TAB PO (19:31)
[2024-08-12] MEDS: traZODone 100 MG TAB PO (19:34)
[2024-08-12] MEDS: Enoxaparin 40 MG/0.4 ML SYR SC (19:34)
[2024-08-12] MEDS: QUEtiapine 100 MG TAB PO (19:34)
[2024-08-12] MEDS: Docusate Sodium 100 MG CAP PO (19:34)
[2024-08-12] MEDS: lamoTRIgine 100 MG TAB PO (19:56)
[2024-08-12] MEDS: Budesonide/Formoterol 160/4.5 6 GM 60 PUFF INH IH (20:11)
[2024-08-12] MEDS: Ipratropium/Albuterol 4 GM 120 PUFF INH IH (20:12)
[2024-08-12 20:43] LABS: Bilirubin Negative (Negative); Blood Large (Negative); Clarity Cloudy (Clear); Glucose 100 mg/dL (Negative); Ketones 15 mg/dL (Negative); Leukocyte Esterase Small (Negative); Nitrite Negative (Negative); Specific Gravity 1.015 (1.005-1.025); Urobilinogen 0.2 mg/dL (Up to 0.2)
[2024-08-12] MEDS: HYDROmorphone 1 MG/ML SYR 0.5 MG IVP (20:44)
[2024-08-12 21:04] LABS: Bacteria Rare HPF (Negative); C & S Indicated? No; Epithelial Cells Rare HPF (Negative); RBC >50 HPF (0-2); WBC 0-2 HPF (0-5)
[2024-08-12 23:36] LABS: MRSA PCR Negative (Negative)
[2024-08-13] VITALS (37 sets, daily range): BP systolic 87–157; BP diastolic 56–100; PULSE 67–99; RESP 10–29; TEMP 36.7–37.1; O2SAT 94–99
[2024-08-13] MEDS: HYDROmorphone 1 MG/ML SYR 0.5 MG IVP ×4 (00:17→15:25)
[2024-08-13 00:46] LABS: Vancomycin, Random 7.6 ug/mL
[2024-08-13] MEDS: CEFEPIME 2 GM in Normal Saline 100 ML IVPB ×2 (05:09→18:14)
[2024-08-13 06:33] LABS: Abs Immature Grans 0.09 10^3/uL (0.0-0.06); Absolute Eosinophil Count 0.06 10^3/uL (0.0-0.7); Absolute Lymphocyte Count 0.39 10^3/uL (1.2-3.4); Basophils % 0.1 %; Eosinophils % 0.4 %; HCT 35.1 % (40.0-50.0); HGB 11.6 g/dL (13.5-17.5); Immature Grans % 0.6 %; Lymphocytes % 2.6 %; MCV 91 fL (80-95); MPV 9.1 fL (8.0-11.0); Monocytes % 5.9 %; Neutrophils % 90.4 %; Platelet Count 449 10^3/uL (130-400); RBC 3.87 10^6/uL (4.36-5.78); RDW 16.2 % (11.8-14.1); RDW-SD 53.3 fL; WBC 14.81 10^3/uL (4.4-10.8)
[2024-08-13 06:36] LABS: Absolute Basophil Count 0.01 10^3/uL (0.0-0.2); Absolute Monocyte Count 0.87 10^3/uL (0.1-0.8); Absolute Neutrophil Count 13.39 10^3/uL (1.2-6.7)
[2024-08-13 06:39] LABS: Anion Gap 3.5 mmol/L (3-11); BUN 21 mg/dL (7-18); CO2 25.5 mmol/L (21.0-32.0); CREATININE 1.1 mg/dL (0.70-1.30); Calcium 8.7 mg/dL (8.5-10.1); Chloride 107 mmol/L (98-107); Estimated GFR 73.12 (mL/min/1.73m2); Glucose 107 mg/dL (74-106); Potassium 3.9 mmol/L (3.5-5.1); Sodium 136 mmol/L (136-145)
[2024-08-13] MEDS: Ipratropium/Albuterol 4 GM 120 PUFF INH IH ×3 (08:17→20:14)
[2024-08-13] MEDS: Budesonide/Formoterol 160/4.5 6 GM 60 PUFF INH IH ×2 (08:17→20:14)
[2024-08-13] MEDS: Tiotropium Bromide-Respimat 10 PUFF INH 2 PUFF IH (08:18)
--- NOTE | 2024-08-13 08:25 | RESPIRATORY ---
Pt advised he wears 2-3L O2 PRN at home, DME: [facility]
[2024-08-13] MEDS: MORPHine CR 15 MG TABCR PO (08:36)
[2024-08-13] MEDS: Docusate Sodium 100 MG CAP PO ×2 (08:36→20:27)
[2024-08-13] MEDS: Atorvastatin 20 MG TAB PO (08:36)
[2024-08-13] MEDS: Escitalopram 20 MG TAB PO (08:36)
[2024-08-13] MEDS: Vitamins B Comp w/C TAB 1 TAB PO (08:36)
[2024-08-13] MEDS: lamoTRIgine 100 MG TAB PO ×2 (08:36→20:27)
[2024-08-13] MEDS: Meloxicam 15 MG TAB PO (08:37)
[2024-08-13] MEDS: Clopidogrel 75 MG TAB PO (08:37)
[2024-08-13] MEDS: Omeprazole 20 MG CAPCR PO (08:37)
[2024-08-13] MEDS: Dexamethasone 4 MG/ML VIAL 6 MG IVP (08:37)
[2024-08-13] MEDS: Polyethylene Glycol 3350 17 GM PACKET PO (08:38)
--- NOTE | 2024-08-13 09:04 | PGE_ITS ---
Date of Service Date of service: 08/13/24 Time of Service: 09:04 Assessment and Plan Assessment and plan (1) Pneumonia due to COVID-19 virus: Status: Acute Assessment and plan: Acute hypoxic respiratory failure on admission, stabilized on BiPAP Cause is likely COVID-19. With acute hypoxia and NIV will treat with dexamethasone, remdesavir. Tocilizumab also ordered due to rapid progression of hypoxia and need for NIV. There is some risk of bowel ileus but I think worth giving a dose today. With recent admission was treated for hospital acquired pneumonia before COVID r esult was back. Given high risk patient, high WBC/lactate, continuing this at least for 48 hours. (2) Severe sepsis: Status: Acute Assessment and plan: Meets criteria with elevated RR, HR>90, WBC, lactate. Improving today. This may be COVID but covering with cefepime and vancomycin at least 48 hours. Follow blood cultures as well as procalcitonin after 48 hours. Stop antibiotics 08/14 if both are reassuring. (3) Nephrostomy present: Status: Acute Assessment and plan: Placed 07/30 at due to obstructing bladder mass. Urology consulted, he has a bag now. (4) Bladder malignancy: Status: Inactive Assessment and plan: pending treatment at . New liver lesion should be worked up, but will defer to oncology, no change. Qualifiers: Bladder location: unspecified site Qualified Code(s): C67.9 - Malignant neoplasm of bladder, unspecified (5) COPD (chronic obstructive pulmonary disease): Status: Acute Assessment and plan: With COVID associated exacerbation, treating with steroids, use inhalers instead of nebs given COVID. Qualifiers: COPD type: COPD with acute exacerbation Qualified Code(s): J44.1 - C hronic obstructive pulmonary disease with (acute) exacerbation (6) Pain: Status: Acute Assessment and plan: Chronic pain with worsening associated with bladder malignancy, T4 compression fracture. Seeing palliative. Discharged on oxycontin per , but unable to fill to to PA. Switched to morphine basal/bolus on palliative recommendations, continue this as this seems to be working. (7) Coronary artery disease: Assessment and plan: Some pleuritic pain that is not c/w cardiac, negative troponins x 3 on admission T-wave changes, may be early pericarditis but not evident on CT. Monitor symptoms. Continue outpatient cardiac meds. With ongoing chest tightness, will repeat EKG today. Qualifiers: Coronary Disease-Associated Artery/Lesion type: [place] artery [place] vs. transplanted heart: [place] heart Associated angina: without angina Qualified Code(s): I25.10 - Atherosclerotic heart disease of [place] coronary artery without angina pectoris (8) Compression fracture of T4 vertebra: Status: Acute Assessment and plan: On 07/[address], MRI recommended, but since then contrast CT at did not suggest malignancy, contrast CT on this admission c/w healing compression fx and not suggestive of malignancy or infection. I don't think MRI is warranted. (9) Liver mass: Status: Acute Assessment and plan: On admission CT, need to assess for metastases. No present on CT earlier in this month at . MRI is best evaluation, but should be done at as they are able to given LRADs staging of liver lesions to better assess risk of malignancy. (10) Opioid-induced constipation: Status: Acute Assessment and plan: Had BM with suppository in combination with PEG. Continue scheduled PEG. If necessary still could consider Relastor. (11) Advanced care planning/counseling discussion: Status: Acute Assessment and plan: Palliative patient, discussed with Dr. Salazar and will consult. Pain management as above Was DNR, but clearly telling me today he wants full code. Prognosis for surviving resuscitation or intubation is not good, but change status for now. Palliative to see him today. Community connections CHW also seeing patient to help with social barriers. (12) DVT prophylaxis: Status: Acute Assessment and plan: LMWH, high risk with COVID Subjective Subjective Patient reports: no new complaints and tolerating a regular diet; denies nausea, vomiting or fever Interval history since last seen: 24 hr events: Off/on BiPAP after admission, on overnight Had a BM He still feels short of breath, a little better. He still has pain across his chest and abdomen that is chronic, the morphine dose help. Abdomen feels better after BM. He continues to void regularly. Exam Narrative Exam Narrative: GEN: Cachectic appearing, alert and oriented x 4. BiPAP in place, but able to speak in short sentances. LUNGS: Diffusely diminished, better air movement on left, no rales or wheezes audible, mild increase in effort, BiPAP in place CV: distant but regular, with no audible murmurs, gallops, or rubs. ABD: active bowel sounds, soft, less distended and less diffusely tender, no rebound. EXT: no cyanosis, clubbing, or edema SKIN: No rashes, sacral stage 2 pressure sore (I failed to document this but per RN was present on admission) PSYCH: normal mood and affect, normal thought process Objective Last Vital Signs Temp 37.1 C 08/13/24 04:01 Pulse 87 08/13/24 08:46 Resp 29 H 08/13/24 08:46 BP 135/64 08/13/24 08:46 Pulse Ox 97 08/13/24 08:46 Laboratory Results - last 24 hr 08/12/24 08/12/24 08/12/24 09:50 09:52 10:30 WBC 26.23 H* RBC 4.46 Hgb 13.3 L Hct 40.7 MCV 91 MCH 29.8 MCHC 32.7 RDW 15.6 H Plt Count 536 H MPV 8.7 Immature Gran % 0.8 Neutrophils % 92.9 Lymphocytes % 2.1 Monocytes % 3.9 Eosinophils % 0.1 Basophils % 0.2 Nucleated RBC % 0.0 Absolute Neutrophils 24.37 H Absolute Lymphocytes 0.55 L Absolute Monocytes 1.02 H Absolute Eosinophils 0.03 Absolute Basophils 0.05 RBC Morphology Normal D-Dimer 1653 H VBG pH 7.35 VBG pCO2 51 VBG pO2 24 VBG HCO3 28 VBG Total CO2 26 VBG O2 Saturation 37 VBG Base Excess 3 VBG Lactate Sodium 135 L Potassium 4.8 Chloride 95 L Carbon Dioxide 28.1 Anion Gap 11.9 H BUN 19 H Creatinine 1.0 Est GFR (CKD-EPI 2020) 81.98 Glucose 120 H Calcium 9.4 Magnesium 1.7 L Total Bilirubin 0.40 AST 20 ALT 30 Alkaline Phosphatase 98 Troponin I 30 NT-Pro-B Natriuret Pep 370 H Cancelled Total Protein 8.5 H Albumin 3.4 Procalcitonin Urine Color Urine Clarity Urine pH Ur Specific [place] Urine Protein Urine Ketones Urine Blood Urine Nitrite Urine Bilirubin Urine Urobilinogen Ur Leukocyte Esterase Urine RBC Urine WBC Ur Epithelial Cells Urine Crystals Urine Bacteria Urine Mucus Ur Culture Indicated? Urine Glucose Random Vancomycin COVID-19 Source SARS-CoV-2 (PCR) Influenza Type A (PCR) Influenza Type B (PCR) RSV (PCR) MRSA (TEM-PCR) Add-On Test Request DONE 08/12/24 08/12/24 08/12/24 10:35 10:50 12:50 WBC RBC Hgb Hct MCV MCH MCHC RDW Plt Count MPV Immature Gran % Neutrophils % Lymphocytes % Monocytes % Eosinophils % Basophils % Nucleated RBC % Absolute Neutrophils Absolute Lymphocytes Absolute Monocytes Absolute Eosinophils Absolute Basophils RBC Morphology D-Dimer VBG pH VBG pCO2 VBG pO2 VBG HCO3 VBG Total CO2 VBG O2 Saturation VBG Base Excess VBG Lactate 3.6 H* Sodium Potassium Chloride Carbon Dioxide Anion Gap BUN Creatinine Est GFR (CKD-EPI 2020) Glucose Calcium Magnesium Total Bilirubin AST ALT Alkaline Phosphatase Troponin I 29 NT-Pro-B Natriuret Pep Total Protein Albumin Procalcitonin < 0.10 Urine Color Urine Clarity Urine pH Ur Specific [place] Urine Protein Urine Ketones Urine Blood Urine Nitrite Urine Bilirubin Urine Urobilinogen Ur Leukocyte Esterase Urine RBC Urine WBC Ur Epithelial Cells Urine Crystals Urine Bacteria Urine Mucus Ur Culture Indicated? Urine Glucose Random Vancomycin COVID-19 Source Nasopharynx SARS-CoV-2 (PCR) Positive A Influenza Type A (PCR) Negative Influenza Type B (PCR) Negative RSV (PCR) Negative MRSA (TEM-PCR) Add-On Test Request DONE 08/12/24 08/12/24 08/13/24 13:25 20:20 00:20 WBC RBC Hgb Hct MCV MCH MCHC RDW Plt Count MPV Immature Gran % Neutrophils % Lymphocytes % Monocytes % Eosinophils % Basophils % Nucleated RBC % Absolute Neutrophils Absolute Lymphocytes Absolute Monocytes Absolute Eosinophils Absolute Basophils RBC Morphology D-Dimer VBG pH VBG pCO2 VBG pO2 VBG HCO3 VBG Total CO2 VBG O2 Saturation VBG Base Excess VBG Lactate Sodium Potassium Chloride Carbon Dioxide Anion Gap BUN Creatinine Est GFR (CKD-EPI 2020) Glucose Calcium Magnesium Total Bilirubin AST ALT Alkaline Phosphatase Troponin I 24 NT-Pro-B Natriuret Pep Total Protein Albumin Procalcitonin Urine Color [place] Urine Clarity Cloudy Urine pH 7.0 Ur Specific [place] 1.015 Urine Protein >=300 H Urine Ketones 15 H Urine Blood Large H Urine Nitrite Negative Urine Bilirubin Negative Urine Urobilinogen 0.2 Ur Leukocyte Esterase Small H Urine RBC >50 H Urine WBC 0-2 Ur Epithelial Cells Rare Urine Crystals Not Applicable Urine Bacteria Rare Urine Mucus Not Applicable Ur Culture Indicated? No Urine Glucose 100 H Random Vancomycin 7.6 COVID-19 Source SARS-CoV-2 (PCR) Influenza Type A (PCR) Influenza Type B (PCR) RSV (PCR) MRSA (TEM-PCR) Negative Add-On Test Request 08/13/24 05:42 WBC 14.81 H RBC 3.87 L Hgb 11.6 L Hct 35.1 L MCV 91 MCH 30.0 MCHC 33.0 RDW 16.2 H Plt Count 449 H MPV 9.1 Immature Gran % 0.6 Neutrophils % 90.4 Lymphocytes % 2.6 Monocytes % 5.9 Eosinophils % 0.4 Basophils % 0.1 Nucleated RBC % 0.0 Absolute Neutrophils 13.39 H Absolute Lymphocytes 0.39 L Absolute Monocytes 0.87 H Absolute Eosinophils 0.06 Absolute Basophils 0.01 RBC Morphology D-Dimer VBG pH VBG pCO2 VBG pO2 VBG HCO3 VBG Total CO2 VBG O2 Saturation VBG Base Excess VBG Lactate Sodium 136 Potassium 3.9 Chloride 107 Carbon Dioxide 25.5 Anion Gap 3.5 BUN 21 H Creatinine 1.1 Est GFR (CKD-EPI 2020) 73.12 Glucose 107 H Calcium 8.7 Magnesium Total Bilirubin AST ALT Alkaline Phosphatase Troponin I NT-Pro-B Natriuret Pep Total Protein Albumin Procalcitonin Urine Color Urine Clarity Urine pH Ur Specific [place] Urine Protein Urine Ketones Urine Blood Urine Nitrite Urine Bilirubin Urine Urobilinogen Ur Leukocyte Esterase Urine RBC Urine WBC Ur Epithelial Cells Urine Crystals Urine Bacteria Urine Mucus Ur Culture Indicated? Urine Glucose Random Vancomycin COVID-19 Source SARS-CoV-2 (PCR) Influenza Type A (PCR) Influenza Type B (PCR) RSV (PCR) MRSA (TEM-PCR) Add-On Test Request PAWSS Have you Been Recently Intoxicated or Drunk Within the Last 30 days?: No Have you Ever Experienced Previous Episodes of Alcohol Withdrawal?: No Have you ever Experienced Withdrawal Seizures?: No Have you ever Experienced Delirium Tremens(DT)s?: No Have you ever undergone Alcohol Rehabilitation Treatment (i.e, inpt ot outpatient treatment programs)?: No Have you ever Experienced Blackouts?: No Have you ever Combined Alcohol with other Downers within the last 90 days?: No Have you ever Combined Alcohol with any other Substance of Abuse during the last 90 days?: No Positive Blood Alcohol level on Presentation? [PCS.BAL]: No Evidence of Increased Autonomic Activity (i.e. HR>120, tremor, sweating, agitation, nausea)?: No Result: 0 Time Spent with Patient Time Spent with Patient: >50 minutes Time was spent: preparing to see the patient(eg.review tests), obtaining and/or reviewing separately otained hiistory, ordering medications,tests, procedures, referring, communicating with other health healthcare network pricing consultant, indepentently interpreting results, counseling the patient and care coordination
--- NOTE | 2024-08-13 09:06 | INITIAL_ITS ---
Date of service: 08/13/24 Time of Service: 09:06 Care Management Initial Assmt Initial Assessment Reason for Hospitalization: Hospital acquired pneumonia, covid Functional Status/Living Situation Patient Presentation: Jimenez was admitted through the ER yesterday due to pneumonia and Covid. He initially required Bipap, but is now on RA. Due to his Covid status, CM was unable to meet with Jimenez today. CM attempted to call Jimenez on the phone x 2 today, but each time there was no answer, and his VM was full. CM did speak with roommate, Erich, today, to inform him that a mattress and some bedding were being delivered over the weekend, and will he be around to ensure it makes it into the house. Erich was very pleased to be able to help Jimenez out with that. 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) Activities/Hobbies/SocialSupport: likes to watch TV Medications Medication Management: No Issues/Barriers identified Physical Functioning/Mobility Assistive Device: walker Advance Directives Advance Directives: Do you have an Advance Directive: N 12/22/20 11:45 AD On File at [facility]: N 12/22/20 11:45 Date Asked 08/06/24 08/06/24 11:54 AD Date Reviewed COLST On File at [facility] COLST Date Scanned Code Status Resuscitation Status DNR Insurance Coverage/Financial Issues Insurance: Medicaid and Medicare Care Team Visit Care Team Role Provider Type LING LEBLANC NP Primary Care Provider NON-[facility] STAFF PHYSICIAN Eladio Mclaughlin MD Other Providers [facility] STAFF PHYSICIAN Shari Grover Emergency Provider NURSE PRACTITIONER Sharan Weinstein Admit Provider [facility] STAFF PHYSICIAN Attending Provider Discharge Potential Discharge Needs: PCP F/U Appt Anticipated Barriers to Discharge: None Identified Patient/Family Education Needs: Review discharge instructions, discuss Ask Me Three Transportation: [facility] Plan: Anticipate that Jimenez will be discharged home with a resumption of home health services for RN, PT and CREDIT COLLECTIONS REP. He will follow up with his community providers and transport via RCT coordinated by [facility]. PFSH All Active Problems (Updated 08/13/24 @ 09:30 by Sharan Weinstein) Liver mass (Acute) Compression fracture of T4 vertebra (Acute) Severe sepsis (Acute) Opioid-induced constipation (Acute) DVT prophylaxis (Acute) Pneumonia due to COVID-19 virus (Acute) Pneumonia (Acute) COVID-19 (Acute) Nephrostomy present (Acute) Pain (Acute) Multifactorial: From bladder tumor? From nephrostomy tube? Start[place] on opiates July 2024 [place] at [facility] [facility] palliative care team will manage Frailty syndrome in geriatric patient (Acute) Financial insecurity (Acute) DNR (do not resuscitate) (Acute) See 03/04/2024 COLST. DNR/time limited trial of intubation, +transfer, +treat/abx/IV Advanced care planning/counseling discussion (Acute) Palliative care encounter (Acute) Weight loss (Acute) Chronic fatigue (Acute) Pulmonary cachexia due to chronic obstructive pulmonary disease (Acute) Night sweats (Acute) Unintentional weight loss (Acute) MAKI (acute kidney injury) (Acute) Lumbar transverse process fracture (Acute) Fall (Acute) Pleural nodule (Acute) Ataxia (Acute) Dizziness (Acute) Gait abnormality (Acute) Rib fractures (Acute) Memory loss (Acute) Stroke (Chronic) Post concussion syndrome (Acute) Sacroiliac joint pain (Chronic) COPD (chronic obstructive pulmonary disease) (Acute) Medical History (Updated 08/13/24 @ 09:30 by Sharan Weinstein) Arthritis of right acromioclavicular joint (06/19/16) Hx of dizziness H/O: stroke Spine injury Anxiety with depression Bipolar 1 disorder Insomnia H/O onychomycosis Smoker Eczema Allergic rhinitis Alcohol abuse In remission GERD (gastroesophageal reflux disease) Chronic pain HTN (hypertension) COPD (chronic obstructive pulmonary disease) Coronary artery disease HCAP (healthcare-associated pneumonia) Surgical History (Updated 08/12/24 @ 15:53 by Sharan Weinstein) Nephrostomy status left, 07/30/24 History of shoulder surgery (06/30/16) H/O cystoscopy H/O transurethral resection of bladder tumor (TURBT) History of coronary artery stent placement History of tonsillectomy Rotator Cuff Repair (06/30/16) RIGHT Family History Other Heart disease Hypertension Social History (Updated 08/12/24 @ 15:54 by Sharan Weinstein) Smoking/Tobacco Use Status: Current every day Tobacco Type: cigarettes Smoking packs per day: 0.5 Smoking cigarettes per day: 10.0 Smoking risk assessment performed?: Yes Alcohol Intake: current Alcohol Intake frequency: a few times a month Alcohol type: beer Drug use: Occasionally Substance use type: marijuana Details: states drinks a 6 pack of beer over a 1 month time frame Household members: none Housing: house Number of Children: 1 current occupation: Disabled Pets and animals: No What type of physical activity do you participate in: walking Seatbelt use: sometimes Do you feel safe at home: Yes Do you feel safe in your relationship?: Yes Additional Social history: Lives with roommate in [facility] outside of [facility] Readmission Within the Past 30 Days Yes or No: Yes Date of First Admission Date of 1st Admission: 08/06/24 Date of this Admission Date of Admission: 08/12/24 This admission was: Through ED Office Visit Since 1st Admission Have you seen your PCP in the office since discharge?: No Speicalist Appointments Have you seen any other specialist since your 1st Admission?: No If the patient had a VNA ordered Did the patient have a VNA order?: Yes Did you call the VNA before you came?: No ED visits How many ED visits in the past 12 months: 3 SDOH(Care Management) Screening Will the Patient Participate in the Screening?: Declined to provide Problems where you live: no known problems In the past 12 months, have you had to go without electric, gas, oil or water in your home?: yes Health Related Social Needs Health related social needs: material hardship(utilities)(Z59.87) Anticipated HH Services Anticipated HH Services at Discharge [facility] Resumption, CREDIT COLLECTIONS REP, PT and RN.
--- NOTE | 2024-08-13 09:30 | RT.EKG_ITS ---
APPROVED REPORT Exam: Resting ECG Reason for Exam: pleuritic pain, follow t-wave inversions Patient Location: I HR:80 bpm ECG Measurements Heart Rate 80 AXIS AK 144 P 66 QRSd 102 QRS 66 QT 420 T 70 QTc 485 Conclusion Sinus rhythm...normal P axis, V-rate 50- 99 Abnrm T, consider ischemia, anterolateral lds...T <-0.20mV, I aVL V2-V6
[2024-08-13 09:33] LABS: Lab Add On Test DONE
[2024-08-13 09:43] LABS: Magnesium 1.7 mg/dL (1.8-2.4)
[2024-08-13] MEDS: Normal Saline Flush 10 ML SYR IVP ×3 (10:01→18:15)
[2024-08-13] MEDS: VANCOMYCIN/WATER (PEG) 1.25 GM/250 ML BAG IVPB (10:01)
--- NOTE | 2024-08-13 11:27 | PHA.REVIEW2 ---
Pharmacy Admission Review Admission Clinical Review Admission Pharmacy Review: Liver mass (Acute) Compression fracture of T4 vertebra (Acute) Severe sepsis (Acute) Opioid-induced constipation (Acute) DVT prophylaxis (Acute) Pneumonia due to COVID-19 virus (Acute) Pneumonia (Acute) COVID-19 (Acute) Nephrostomy present (Acute) Pain (Acute) Advanced care planning/counseling discussion (Acute) COPD (chronic obstructive pulmonary disease) (Acute) carbamazepine Allergy (Intermediate, Unverified 08/12/24 11:57) Hives acetaminophen (From Tylenol) Allergy (Verified 08/12/24 11:57) unknown simvastatin Allergy (Unverified 08/12/24 11:57) unknown Resuscitation Status Full Code Height 6 ft Weight 51.8 kg Comments Comments/Follow Ups: Order level if vancomycin not discontinued tomorrow Pharmacy Admission Review Renal Dosing Renal Dosing: BUN 21 mg/dL (7-18) H 08/13/24 05:42 Creatinine 1.1 mg/dL (0.70-1.30) 08/13/24 05:42 Medications needing adjustments: Reviewed (CrCl 47 mL/min, BUN increased from 19) List of meds needing interventions: Current meds look okay (cefepime renally adjusted dose) Anticoagulation Anticoagulation: Hgb 11.6 g/dL (13.5-17.5) L 08/13/24 05:42 Hct 35.1 % (40.0-50.0) L 08/13/24 05:42 Plt Count 449 10^3/uL (130-400) H 08/13/24 05:42 Creatinine 1.1 mg/dL (0.70-1.30) 08/13/24 05:42 DVT Prophylaxis: Reviewed (Hgb decreased from 13.3, PLT count decreased from 536) Medications: Enoxaparin (40mg daily) Opiate Usage Evaluate Pain Scale/Pains Meds: Reviewed (hydromorphone IVP PRN - 2mg/24 hours and morphine 15mg CR q8h. Patient has OIC, receiving bisacodyl suppository last night and Miralax increased today to BID. Per progress note did have BM this morning.) Scheduled Bowel Reg ordered if on Opiates?: Yes (Docusate and Miralax) Relevant Labs Relevant Labs: Sodium 136 mmol/L (136-145) 08/13/24 05:42 Potassium 3.9 mmol/L (3.5-5.1) 08/13/24 05:42 Chloride 107 mmol/L (98-107) 08/13/24 05:42 Magnesium 1.7 mg/dL (1.8-2.4) L 08/13/24 05:42 Electrolytes, C-Reactive P, ESR: Reviewed (Mg 1.7 - provider aware) Cardiac Review Cardiac Review: Troponin I 24 ng/L (<or=76) 08/12/24 13:25 NT-Pro-B Natriuret Pep Cancelled 08/12/24 09:52 Blood Pressure 149/71 1000 Blood Pressure 134/60 0901 Blood Pressure 135/64 0846 Blood Pressure 140/69 0845 Blood Pressure 106/63 0701 Blood Pressure 104/59 0626 Blood Pressure 146/100 0601 BP, HR, EF%: Reviewed (BP WNL, RR 25 on room air) List meds needing interventions: Has order for lisinopril 10mg HS QTc Review QTc: Reviewed (448 from 08/12/24) IV to PO Switch IV Medications: Reviewed (cefepime, dexamethasone, hydromorphone, remdesivir and vancomycin) Home Meds Home Med List reviewed: Reviewed Relevent Home Meds Not ordered & why?: APAP (PRN), albuterol (PRN), Breztri (has order for Symbicort and Spiriva), Flonase (PRN), morphine IR (has IVP PRN hydromorphone), prednisone (has order for IV dexamethasone) Current Meds Current Medication Order Review: Reviewed Comments: Order was put in last night for tocilizumab for patients COVID. Spoke with provider this AM during morning meeting. Provider will hold off for now as patient seems to be improving with just the remdesivir and tocilizumab has potentially side affect of bowel obstruction / constipation. Patient currently has opioid induced constipation. Pharmacy Antibiotic Review Relevant Labs: Relevant Labs 08/12/24 10:50 Procalcitonin < 0.10 WBC 14.81 10^3/uL (4.4-10.8) H 08/13/24 05:42 Procalcitonin < 0.10 ng/mL 08/12/24 10:50 Temperature 37.1 C Temperature 37.0 C Microbiology 08/12/24 10:50 Blood Culture - Preliminary Blood Gram Positive [facility] Pharmacy Antibiotic Activity: C/S review and Reviewed, no change Comments: Patient is on cefepime and vancomycin, day 2, for HAP. Patient is also on remdesivir for COVID, day 2. Vancomycin level was 7.6 at 0020 today. Dose currently 1250mg q24h with predicted AUC of 523 and trough of 15. Will repeat level 08/15 if patient remains on vancomycin (potential for it to be discontinued tomorrow if patient still improving per progress note). WBC decreased from 14.81 and blood culture growing gram positive derik (2nd culture still pending). Comments Comments/Follow Ups: Order level if vancomycin not discontinued tomorrow
--- NOTE | 2024-08-13 13:24 | PCNE_ITS ---
Date of service: 08/13/24 Time of Service: 13:24 History of Present Illness Narrative: Mr. 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 I have met with him twice in the last 4 months to begin goals of care discussions and serve as extra layer of support. Initial referral made by [facility] pulmonary clinic. He recently was diagnosed with locally invasive bladder cancer with L hydronephrosis. Additional medical problems include previous smoker (QUIT FOUR MONTHS AGO!) history of ataxia with falls, history of anxiety disorder. ABout three weeks ago he underwent 8 cm resection of bladder tumor with L nephrostomy tube placement at [facility]. Also has been having significant abdominal pain since the surgery And palliative care team has been working to improve this as well. 48 hour admission to [facility] last week for acute exacerbation COPD. Required BiPap but then quickly recovered back to baseline and went home on steroid taper. We spoke with him earlier Sunday morning to discuss need to change pain medication due to insurance issues; he was feeling OK. A few hours later he presented to the ED with again acute respiratory distress and exacerbation COPD. Found to have COVID respiratory infeciton with possible PNA. Spent first night requiring BiPAP, but then quickly turned around and now on room air when I saw him. He also told hospitalist at the time of admission that he changed his mind and wished now to be full CODE. Seen today to discuss pain management and Goals of Care. See A/P Care Team: Primary Care physician: DIANA Avelar Pulmonology: [facility] Pulmonary Neurology: Dr. Spencer (migraine headaches) Cardiology: Dr. Mcnulty Social HX: Lives with 1 roommate (Erich) in [facility]. (roomate also smokes). Also has friend Josue. Patient tells me today he lives for f5 years at the [facility], hated it, would never go back to any care home. But otld me last week he could accept living in care home, if no alternative. Marital Status: Never , no partner in years. 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 Children: 1 son, estranged (Lives in [facility]). Absolutely no contact with family or old friends. Hobbies: I'm lazier than hell, don't do much.... Before that: fishing, (no longer hunting), watches TV, Likes to watch animals out his back window (Moose, turkey, deer, racoon) Additional Services: Uses RCT. Housemate does not have a car No Meals on Wheels Has home health services sincew discharge from [facility] earlier this month. But in between [facility] hospital admission, I am not sure how many times they have seen him.. Goals: To get treatment so he can live as long as he does. Stay home as long as possible. He tells me today that he would never go back to a care home. LAst week he told me he could accept living in a care home (preferable to dying) Looks forward to looking at wildlife from his house. Current information preferences: Function: Ambulation: Walks without aids ADLs: Independent iADLs: Takes RCT to go shopping, Independent. Prepares his own food. Hearing: Slightly down, no hearing aids. Vision: Needs glasses (uses readers) Cognition: Feels working OK. Falls: None, Driving: Not driving Palliative Performance Scale % Ambulation Activity and Evidence of Disease Self Care Intake Level of Consciousness 100 Full Normal activity, no evidence of disease Full Normal Full 90 Full Normal activity, some evidence of disease Full Normal Full 80 Full Normal activity with effort, some evidence of disease Full Normal or reduced Full 70 Reduced Unable to do normal work, some evidence of disease Full Normal or reduced Full 60 Reduced Unable to do hobby or some housework, significant disease Occasional assist necessary Normal or reduced Full or confusion 50 Mainly sit/lie Unable to do any work, extensive disease Considerable assistance required Normal or reduced Full or confusion 40 Mainly in bed Unable to do any work, extensive disease Mainly assistance Normal or reduced Full, drowsy, or confusion 30 Totally bed bound Unable to do any work, extensive disease Total care Reduced Full, drowsy, or confusion 20 Totally bed bound Unable to do any work, extensive disease Total care Minimal sips Full, drowsy, or confusion 10 Totally bed bound Unable to do any work, extensive disease Total care Mouth care only Drowsy or coma 0 - - - - Patient Score: 70 (taking longer to do work) Spiritual history: Caodaism, sometimes prays. Not a pentecostalism goer. Does not care whether or not he gets last rites ir takes communion Palliative review of systems: Pain: Today reports that it is his chronic low back pain Dyspnea:See hospitalist notes GI symptoms: Reports constipation resolved. Appetite: Appetite slightly better. Weight: Weight down 1.8 kg from last visit (back to Nov weight, not at lowest weight) Depression: : Sleep: on quetiepine to help with sleep, on for years. Anxiety: None Emotional Distress: Spiritual/Existential Distress: Labs: Today Cr: 0.8 Liver panel: Normal Albumin: 3.6 CBC: Hemoglobin 15 Advanced Care Planning: Advanced Directive: Health Care Agent: Declines to identify anyone (Family friends). Understands might need court appointed guardian. He is comfortable with this for now. COLST: Change in CODE status: Today he reports that he wishes to be Full COde. Limitations: Assessment and Plan Assessment and plan (1) Acute exacerbation of chronic obstructive pulmonary disease (COPD): Status: Resolved Assessment and plan: Mr. Marin is a 69-year-old gentleman who had been followed by palliative care team because of advanced lung disease with hypoxia. Recently diagnosed with bladder tumor and 8 days ago underwent cystoscopy with excision of 8 cm bladder tumor which was causing left hydronephrosis. Tumor felt to be locally invasive and not completely resected. He has had pain requiring use of opiates since the surgery and is unclear if pain was adequately controlled prior to this admission. He then was admitted yesterday with acute exacerbation of COPD, although now appears he is mostly back to baseline. #Urothelial Malgnancy with local metastasis I believe that patient has first radiation oncology appointment at [facility] on Sunday. . Pt will need reminder of this. #Pain: Over last 24 hours pt received Hydromorphone 0.5mg IV (4 doses), Oral morhpone 15mg (3 doses), Morphine 2mg IV (1 dose) which comes out to 90 MME over last 24 hours. He has chronic Left upper anterior chest pain for years. This continues, maybe a bit worse since the surgery. Pain Today described as central abdominal ventral pain he has had since the cystoscopy and nephrostomy placement.. Pain medicine not working yet. Only first started on long acting pain medication yesterday, due to need for PAs and poor comunication. Also now with opioid induced constitipation. I had sent in Miralax script last week, but pt tells me he had Run out of it. Recommend: INCREASE Long Acting Morphine to 30 mg Q 12 h. Can calculate 24 hour opioid use every 36-48 hours and increase long acting dose as needed. (Pt has script waiting in pharmacy, will need to be updated prior to discharge if he ends up on a higher dose). Use ORAL Morphine IR 15 mg every 4 hours as needed for breakthrough pain. (there is script waiting in pharmacy) Continue Meloxicam 15 mg daily. Will need to be on regular regimen of miralax (he says he hates Senna). PLease send in script to pharmacy at time of discharge. Discussed with Dr. Weinstein #Goals of care: IN the past, patient has told me he wants everything done up until the point that his heart stopped. But if his heart stopped, he would not want CPR. He had wanted a trial of intubation. Yesterday he told Hospitalist he wants CPR. We revisited this today. We discussed the procedure of CPaR, actual mechanical process, rate of success in restoring heartbeat, short and long-term side effects in survivors (including likely decreased physical and cognitive functioning). Given his comorbidities, I doubt that if he had a cardiac arrest that he could be resuscitated. But if heartbeat was restored, I am pretty sure he would end up long-term in a SNF due to weakness and anoxic brain damage. Patient was somewhat contradictory today. At my last visit he told me that he would be okay living in a care home if there is no other alternative. Today he tells me he would never ever want to be in a care home, even for short amount of time. However he absolutely does want CPR, he wants us at least to try. He explains if it does not work or he is a vegetable, let him go. I hear some contradictions in his thinking (I absolutely never want to live in a care home AND he says he understand that he will end up in a care home if he is resuscitated from CPR.). IN the end, he is consistent in his wish to have CPR. Dr. Weinstein and nursing staff are aware of this. New COLST form completed as Full COde to overide previous form. #Discharge Planning Nutrition: Nursing staff notes that patient is avidly eating anything and everything and looks like he has not had enough to eat. He says he can't have MOW because road is not safe in winter. I suspect food insecurity. CM to discuss with [facility] (who has been to the house). I asked patient if he would consider short [facility] stay to get stronger and help with learning nephrostomy management (tube reportedly was disconnected at time of presentation to ED). But he is adamantly opposed to gong to [facility]. He reports he has not friends or family who can help him. He has declined to name a HCA. 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 Palliative Care will not be available again until SundayAug.18. We will follow up with patient as inpt or outpt next week. (He has home visit appt with us scheduled for Aug.21) (2) Pain: Status: Acute (3) Nephrostomy present: Status: Acute (4) DNR (do not resuscitate): Status: Acute (5) Advanced care planning/counseling discussion: Status: Acute (6) Palliative care encounter: Status: Acute (7) Weight loss: Status: Acute (8) Bladder malignancy: Status: Inactive Assessment and plan: 16 to 30 minutes spent today on Advance Care Planning. Patient and family participated voluntarily. Advance care planning may include (not limited to) explanation and discussion of advance directives, choosing and appointing healthcare agents, alternatives to various ACP tools, discussion of (and if indicated, completion of) COLST form, discussion of patient's values and overall goals for treatment, palliative and disease directive care options, ways to avoid hospital readmission including hospice discussions, care preferences should the patient's several other adverse health events.See today's palliative care note for additional information. This note was dictated using speech recognition software. Attempt was made at proofreading, but errors may be present. Please call with questions. Qualifiers: Bladder location: unspecified site Qualified Code(s): C67.9 - Malignant neoplasm of bladder, unspecified PFSH All Active Problems (Updated 08/13/24 @ 09:30 by Sharan Weinstein) Liver mass (Acute) Compression fracture of T4 vertebra (Acute) Severe sepsis (Acute) Opioid-induced constipation (Acute) DVT prophylaxis (Acute) Pneumonia due to COVID-19 virus (Acute) Pneumonia (Acute) COVID-19 (Acute) Nephrostomy present (Acute) Pain (Acute) Multifactorial: From bladder tumor? From nephrostomy tube? Started on opiates July 2024 while at [facility]. [facility] palliative care team will manage Frailty syndrome in geriatric patient (Acute) Financial insecurity (Acute) DNR (do not resuscitate) (Acute) See 03/04/2024 COLST. DNR/time limited trial of intubation, +transfer, +treat/abx/IV Advanced care planning/counseling discussion (Acute) Palliative care encounter (Acute) Weight loss (Acute) Chronic fatigue (Acute) Pulmonary cachexia due to chronic obstructive pulmonary disease (Acute) Night sweats (Acute) Unintentional weight loss (Acute) MAKI (acute kidney injury) (Acute) Lumbar transverse process fracture (Acute) Fall (Acute) Pleural nodule (Acute) Ataxia (Acute) Dizziness (Acute) Gait abnormality (Acute) Rib fractures (Acute) Memory loss (Acute) Stroke (Chronic) Post concussion syndrome (Acute) Sacroiliac joint pain (Chronic) COPD (chronic obstructive pulmonary disease) (Acute) Medical History (Updated 08/13/24 @ 09:30 by Sharan Weinstein) Arthritis of right acromioclavicular joint (06/19/16) Hx of dizziness H/O: stroke Spine injury Anxiety with depression Bipolar 1 disorder Insomnia H/O onychomycosis Smoker Eczema Allergic rhinitis Alcohol abuse In remission GERD (gastroesophageal reflux disease) Chronic pain HTN (hypertension) COPD (chronic obstructive pulmonary disease) Coronary artery disease HCAP (healthcare-associated pneumonia) Surgical History (Updated 08/12/24 @ 15:53 by Sharan Weinstein) Nephrostomy status left, 07/30/24 History of shoulder surgery (06/30/16) H/O cystoscopy H/O transurethral resection of bladder tumor (TURBT) History of coronary artery stent placement History of tonsillectomy Rotator Cuff Repair (06/30/16) RIGHT Family History Other Heart disease Hypertension Social History (Updated 08/12/24 @ 15:54 by Sharan Weinstein) Smoking/Tobacco Use Status: Current every day Tobacco Type: cigarettes Smoking packs per day: 0.5 Smoking cigarettes per day: 10.0 Smoking risk assessment performed?: Yes Alcohol Intake: current Alcohol Intake frequency: a few times a month Alcohol type: beer Drug use: Occasionally Substance use type: marijuana Details: states drinks a 6 pack of beer over a 1 month time frame Household members: none Housing: house Number of Children: 1 current occupation: Disabled Pets and animals: No What type of physical activity do you participate in: walking Seatbelt use: sometimes Do you feel safe at home: Yes Do you feel safe in your relationship?: Yes Additional Social history: Lives with roommate in trailer outside of [facility] Exam Narrative Exam Narrative: Cachectic elderly gentleman sitting in recliner. No supplemental oxygen on. Avidly eating an ice cream. Respiratory rate 20?24. Speech appears to be fluid. Slightly hard of hearing (I am wearing double mask in the ICU room). Nurses report stage II ulcer on his sacrum. 1 cough while I am in there Results Last Vital Signs Temp 37.1 C 08/13/24 04:01 Pulse 86 08/13/24 12:12 Resp 24 08/13/24 12:12 BP 146/78 H 08/13/24 12:12 Pulse Ox 96 08/13/24 12:12 Labs 08/13/24 05:42 08/13/24 05:42 Labs: Laboratory Results - last 24 hr 08/12/24 08/12/24 08/12/24 12:50 13:25 20:20 WBC RBC Hgb Hct MCV MCH MCHC RDW Plt Count MPV Immature Gran % Neutrophils % Lymphocytes % Monocytes % Eosinophils % Basophils % Nucleated RBC % Absolute Neutrophils Absolute Lymphocytes Absolute Monocytes Absolute Eosinophils Absolute Basophils VBG Lactate Sodium Potassium Chloride Carbon Dioxide Anion Gap BUN Creatinine Est GFR (CKD-EPI 2020) Glucose Calcium Magnesium Troponin I 24 Urine Color [place] Urine Clarity Cloudy Urine pH 7.0 Ur Specific Meta 1.015 Urine Protein >=300 H Urine Ketones 15 H Urine Blood Large H Urine Nitrite Negative Urine Bilirubin Negative Urine Urobilinogen 0.2 Ur Leukocyte Esterase Small H Urine RBC >50 H Urine WBC 0-2 Ur Epithelial Cells Rare Urine Crystals Not Applicable Urine Bacteria Rare Urine Mucus Not Applicable Ur Culture Indicated? No Urine Glucose 100 H Random Vancomycin COVID-19 Source Nasopharynx SARS-CoV-2 (PCR) Positive A Influenza Type A (PCR) Negative Influenza Type B (PCR) Negative RSV (PCR) Negative MRSA (TEM-PCR) Negative Add-On Test Request 08/13/24 08/13/24 08/13/24 00:20 05:42 08:40 WBC 14.81 H RBC 3.87 L Hgb 11.6 L Hct 35.1 L MCV 91 MCH 30.0 MCHC 33.0 RDW 16.2 H Plt Count 449 H MPV 9.1 Immature Gran % 0.6 Neutrophils % 90.4 Lymphocytes % 2.6 Monocytes % 5.9 Eosinophils % 0.4 Basophils % 0.1 Nucleated RBC % 0.0 Absolute Neutrophils 13.39 H Absolute Lymphocytes 0.39 L Absolute Monocytes 0.87 H Absolute Eosinophils 0.06 Absolute Basophils 0.01 VBG Lactate 2.0 H Sodium 136 Potassium 3.9 Chloride 107 Carbon Dioxide 25.5 Anion Gap 3.5 BUN 21 H Creatinine 1.1 Est GFR (CKD-EPI 2020) 73.12 Glucose 107 H Calcium 8.7 Magnesium 1.7 L Troponin I Urine Color Urine Clarity Urine pH Ur Specific Meta Urine Protein Urine Ketones Urine Blood Urine Nitrite Urine Bilirubin Urine Urobilinogen Ur Leukocyte Esterase Urine RBC Urine WBC Ur Epithelial Cells Urine Crystals Urine Bacteria Urine Mucus Ur Culture Indicated? Urine Glucose Random Vancomycin 7.6 COVID-19 Source SARS-CoV-2 (PCR) Influenza Type A (PCR) Influenza Type B (PCR) RSV (PCR) MRSA (TEM-PCR) Add-On Test Request 08/13/24 09:33 WBC RBC Hgb Hct MCV MCH MCHC RDW Plt Count MPV Immature Gran % Neutrophils % Lymphocytes % Monocytes % Eosinophils % Basophils % Nucleated RBC % Absolute Neutrophils Absolute Lymphocytes Absolute Monocytes Absolute Eosinophils Absolute Basophils VBG Lactate Sodium Potassium Chloride Carbon Dioxide Anion Gap BUN Creatinine Est GFR (CKD-EPI 2020) Glucose Calcium Magnesium Troponin I Urine Color Urine Clarity Urine pH Ur Specific Meta Urine Protein Urine Ketones Urine Blood Urine Nitrite Urine Bilirubin Urine Urobilinogen Ur Leukocyte Esterase Urine RBC Urine WBC Ur Epithelial Cells Urine Crystals Urine Bacteria Urine Mucus Ur Culture Indicated? Urine Glucose Random Vancomycin COVID-19 Source SARS-CoV-2 (PCR) Influenza Type A (PCR) Influenza Type B (PCR) RSV (PCR) MRSA (TEM-PCR) Add-On Test Request DONE Time Spent Time Spent with Patient Time Spent(min): 90
--- NOTE | 2024-08-13 16:47 | PT.INIE ---
PT Notes Visit Reasons: HospitalAcquiredPneumonia,hypoxicResp failure,COPD Physical Therapy Inpatient Initial Evaluation Date:08/13/2024 Referring Doctor: Sharan Weinstein MD PT Orders: PT CONSULT: Fall Safety Assessment Precautions: Fall. Standard. Activity as tolerated. Patient Profile/Admitting Diagnosis: Jimenez is a 67-year-old male who presented to the ED on 08/12/2024 due to acute respiratory distress, SOB and testing positive for COVID. Patient is a 69 year-old amle with past medical history significant for COPD, CAD s/p remote DE, h/o CVA, former smoker, recent diagnosis of bladder cancer and unintentional weight loss who was recently admitted 08/06/2024 for COPD exacerbation and returned to the emergency room with increased shortness of breath. Patient now in ICU levelof care for management of PNA due to COVID-19 severe sepsis, bladder malignancy, COPD, and CAD. PMHX: All Active Problems (Updated 08/12/24 @ 16:40 by Sharan Weinstein) Compression fracture of T4 vertebra (Acute) Severe sepsis (Acute) Opioid-induced constipation (Acute) DVT prophylaxis (Acute) Pneumonia due to COVID-19 virus (Acute) Pneumonia (Acute) COVID-19 (Acute) Nephrostomy present (Acute) Pain (Acute) Multifactorial: From bladder tumor? From nephrostomy tube? Started on opiates July 2024 while at [facility] [place]. [facility] palliative care team will manage Frailty syndrome in geriatric patient (Acute) Financial insecurity (Acute) DNR (do not resuscitate) (Acute) See 03/04/2024 COLST. DNR/time limited trial of intubation, +transfer, +treat/abx/IV Advanced care planning/counseling discussion (Acute) Palliative care encounter (Acute) Weight loss (Acute) Chronic fatigue (Acute) Pulmonary cachexia due to chronic obstructive pulmonary disease (Acute) Night sweats (Acute) Unintentional weight loss (Acute) Lumbar transverse process fracture (Acute) MAKI (acute kidney injury) (Acute) Fall (Acute) Pleural nodule (Acute) Ataxia (Acute) Dizziness (Acute) Gait abnormality (Acute) Rib fractures (Acute) Memory loss (Acute) Stroke (Chronic) Post concussion syndrome (Acute) Sacroiliac joint pain (Chronic) COPD (chronic obstructive pulmonary disease) (Acute) Medical History (Updated 08/12/24 @ 16:40 by Sharan Weinstein) Arthritis of right acromioclavicular joint (06/19/16) Hx of dizziness H/O: stroke Spine injury Anxiety with depression Bipolar 1 disorder Insomnia H/O onychomycosis Smoker Eczema Allergic rhinitis Alcohol abuse In remission GERD (gastroesophageal reflux disease) Chronic pain HTN (hypertension) COPD (chronic obstructive pulmonary disease) Coronary artery disease HCAP (healthcare-associated pneumonia) Surgical History (Updated 08/12/24 @ 15:53 by Sharan Weinstein) Nephrostomy status left, 07/30/24 DH History of shoulder surgery (06/30/16) H/O cystoscopy H/O transurethral resection of bladder tumor (TURBT) History of coronary artery stent placement History of tonsillectomy Rotator Cuff Repair (06/30/16) RIGHT Social History/Home Situation: Jimenez lives in a trailer with 2 other roommates. Has 4 steps to enter with rails on B sides. Has been on disability. Sometimes uses a cane if he feels like he needs it. Equipment Owned/DME: [facility] Subjective: Reports weakness and fatigue. Denied headache, chest pain, and lightheadedness throughout session. Agreeable to PT consult. Objective: General Observation: Supine in bed. Telemetry monitoring in place. IV access in R UE. Mental Status: Alert and oriented as to date, time, and place. Pain: None reported ROM: Right Upper Extremity: Shoulder Flexion WFL. Shoulder abduction WFL. Elbow flexion WFL. Wrist flexion WFL. Functional opening and closing of hand WFL. Left Upper Extremity: Shoulder Flexion WFL. Shoulder abduction WFL. Elbow flexion WFL. Wrist flexion WFL. Functional opening and closing of hand WFL. Right Lower Extremity: Hip flexion WFL. Hip abduction WFL. Knee flexion WFL. Ankle dorsiflexion WFL. Ankle plantarflexion WFL. Left Lower Extremity: Hip flexion WFL. Hip abduction WFL. Knee flexion WFL. Ankle dorsiflexion WFL. Ankle plantarflexion WFL. Strength: Right Upper Extremity: Shoulder flexors 4-/5. Shoulder abductors 4-/5. Elbow flexors 4-/5. Elbow extensors 4-/5. [employer] strong. Left Upper Extremity: Shoulder flexors 4-/5. Shoulder abductors 4-/5. Elbow flexors 4-/5. Elbow extensors 4-/5. Director Of Vocational Training strong. Right Lower Extremity: Hip flexors 4-/5. Hip abductors 4-/5. Knee flexors 4-/5. Knee extensors 4-/5. Ankle dorsiflexors 4-/5. Ankle plantarflexors 4-/5. Left Lower Extremity: Hip flexors 4-/5. Hip abductors 4-/5. Knee flexors 4-/5. Knee extensors 4-/5. Ankle dorsiflexors 4-/5. Ankle plantarflexors 4-/5. Sensation: Intact as to pain and light pressure in B LE Bed Mobility/Transfers: Supine to sit independent Sit to stand independent Stand to sit independent Bed to chair supervision Gait: Able to tolerate in-room ambulation of up to 30 feet using front wheeled walker with stand by assist. Sandy decreased. Step height and length decreased. No loss of balance. No AD. Mild shortness of breath. SaO2 at 94% during activity. Balance: Static Sitting: Normal Dynamic Sitting: Normal Static Standing: Fair Dynamic Standing: Fair Special Tests: Mobility Limitations Standardized Measure [facility] 6 clicks Basic Mobility Inpatient Short Form: Raw Score: 23 CMS Score: 11% deficit 4-Stage Balance Test: Feet together 10 seconds Semitandem 10 seconds Full tandem <10 seconds One-legged stance<10 seconds Informed Consent/Education: Patient was instructed in purpose of PT consult and plan of care. Agreeable to proceed with established PT POC to achieve personal goals. Assessment: Patient presents with clinical signs and symptoms consistent with current/admitting diagnoses that have resulted to mobility limitations, gait instability, generalized weakness, and overall ADL decline as demonstrated by the following impairment level findings: 1. Decreased strength to B UE/LE major muscle groups 2. Impaired sitting/standing balance 3. Impaired activity tolerance Impairments are contributing to the following functional limitations: 1. Increased completion time for mobility ADL performance 2. Increased risk for falls 3. Difficulty with managing steps alone safely Patient is assessed as a 59804 moderate complexity based on the following: History: 67-year-old male with past medical history as indicated above Examination: Demonstrable impairment in strength, balance, and mobility level with underlying impairments and functional limitations as exhibited above Presentation: Evolving Decision Makin moderate complexity Goals: Goals X1 week 1. Chair-Bed independent with no AD 2. Independent gait on level surface with use of no AD for at least 75 feet without report of pain nor dyspnea 3. Independent stair negotiation while holding onto B rails rails for at least 5 steps without report of pain nor dyspnea 4. Independent with home exercise program 5. Good static and dynamic standing balance/tolerance Plan of Care/Treatment Plan: 1x/day, 7 days/week x 1 week. Plan of care has been reviewed with the [employer] providing the service under Physical Therapy direction. Initiate Physical Therapy intervention for pain management as needed, strengthening, bed mobility, transfers, gait, stairs, balance training, and use of assistive device. DISCHARGE RECOMMENDATIONS: [] Home with no services [] [X] Home with services. Patient will benefit from home health PT services in order to progress mobility level using least restrictive assistive ambulatory device, assess home safety, identify additional equipment needs, and establish a functional maintenance program that will increase ability of patient to remain at home. [] Home with outpatient PT [] [] SNF for continued rehabilitation [] [] [facility] [] [] SNF versus LTC based on ability to participate and progress [] TREATMENT CODE/TIME: 63819 x 20 minutes, 62058 x 15 minutes (15:40-16:15). Thank you for the opportunity to participate in the care of this patient. Joana Haider PT, DPT, CLT [facility] [place], [place]
[2024-08-13] MEDS: Benzonatate 100 MG CAP PO (16:51)
[2024-08-13] MEDS: MORPHine CR 15 MG TABCR 30 MG PO (20:27)
[2024-08-13] MEDS: traZODone 100 MG TAB PO (20:27)
[2024-08-13] MEDS: QUEtiapine 100 MG TAB PO (20:27)
[2024-08-13] MEDS: Enoxaparin 40 MG/0.4 ML SYR SC (20:28)
[2024-08-13] MEDS: Lisinopril 10 MG TAB PO (20:28)
[2024-08-14] VITALS (10 sets, daily range): BP systolic 105–158; BP diastolic 58–80; PULSE 70–79; RESP 20; TEMP 36.6; O2SAT 94–97
[2024-08-14] MEDS: Benzonatate 100 MG CAP PO ×2 (01:26→07:38)
[2024-08-14] MEDS: HYDROmorphone 1 MG/ML SYR 0.5 MG IVP ×2 (01:27→10:29)
[2024-08-14] MEDS: Normal Saline Flush 10 ML SYR IVP ×5 (01:27→08:56)
[2024-08-14] MEDS: CEFEPIME 2 GM in Normal Saline 100 ML IVPB (06:26)
[2024-08-14 07:07] LABS: Abs Immature Grans 0.12 10^3/uL (0.0-0.06); Absolute Basophil Count 0.02 10^3/uL (0.0-0.2); Absolute Lymphocyte Count 0.62 10^3/uL (1.2-3.4); Absolute Monocyte Count 1.69 10^3/uL (0.1-0.8); Basophils % 0.1 %; Eosinophils % 0.2 %; HGB 11.8 g/dL (13.5-17.5); Immature Grans % 0.6 %; Lymphocytes % 3.2 %; MCH 30.2 pg (27.0-33.0); MCHC 32.8 % (32.0-36.0); MCV 92 fL (80-95); MPV 9.1 fL (8.0-11.0); Monocytes % 8.7 %; Neutrophils % 87.2 %; Platelet Count 513 10^3/uL (130-400); RBC 3.91 10^6/uL (4.36-5.78); RDW 16.5 % (11.8-14.1); RDW-SD 55.3 fL; WBC 19.42 10^3/uL (4.4-10.8)
[2024-08-14 07:08] LABS: Absolute Eosinophil Count 0.04 10^3/uL (0.0-0.7); Absolute Neutrophil Count 16.93 10^3/uL (1.2-6.7)
[2024-08-14 07:16] LABS: Anion Gap 6.3 mmol/L (3-11); BUN 32 mg/dL (7-18); CO2 31.7 mmol/L (21.0-32.0); CREATININE 1.2 mg/dL (0.70-1.30); Calcium 9.7 mg/dL (8.5-10.1); Chloride 99 mmol/L (98-107); Estimated GFR 65.87 (mL/min/1.73m2); Glucose 121 mg/dL (74-106); Potassium 4.8 mmol/L (3.5-5.1); Sodium 137 mmol/L (136-145)
[2024-08-14 07:34] LABS: Diff Comment Diff Reviewed; RBC Morphology Normal
[2024-08-14] MEDS: MORPHine CR 15 MG TABCR 30 MG PO (07:37)
[2024-08-14] MEDS: Vitamins B Comp w/C TAB 1 TAB PO (07:37)
[2024-08-14] MEDS: Polyethylene Glycol 3350 17 GM PACKET PO (07:37)
[2024-08-14] MEDS: Dexamethasone 4 MG/ML VIAL 6 MG IVP (07:37)
[2024-08-14 07:38] LABS: Procalcitonin < 0.10 ng/mL
[2024-08-14] MEDS: Escitalopram 20 MG TAB PO (07:38)
[2024-08-14] MEDS: lamoTRIgine 100 MG TAB PO (07:38)
[2024-08-14] MEDS: Atorvastatin 20 MG TAB PO (07:38)
[2024-08-14] MEDS: Omeprazole 20 MG CAPCR PO (07:38)
[2024-08-14] MEDS: Meloxicam 15 MG TAB PO (07:38)
[2024-08-14] MEDS: Docusate Sodium 100 MG CAP PO (07:39)
[2024-08-14] MEDS: Clopidogrel 75 MG TAB PO (07:39)
[2024-08-14] MEDS: Ipratropium/Albuterol 4 GM 120 PUFF INH IH ×2 (08:19→12:46)
[2024-08-14] MEDS: Budesonide/Formoterol 160/4.5 6 GM 60 PUFF INH IH (08:19)
[2024-08-14] MEDS: Tiotropium Bromide-Respimat 10 PUFF INH 2 PUFF IH (08:19)
[2024-08-14] MEDS: Methylnaltrexone 12 MG/0.6 ML VIAL 8 MG SC (08:54)
[2024-08-14] MEDS: VANCOMYCIN/WATER (PEG) 1.25 GM/250 ML BAG IVPB (10:18)
[2024-08-14 12:11] LABS: Lab Add On Test DONE
[2024-08-14] MEDS: Bisacodyl 10 MG SUPP PR (12:11)
[2024-08-14 12:18] LABS: Magnesium 1.8 mg/dL (1.8-2.4)
--- NOTE | 2024-08-14 12:18 | W.PM.DS.N ---
Date of service: 08/14/24 Time of Service: 12:23 DS: Diagnosis Discharge Diagnosis (1) Acute exacerbation of chronic obstructive pulmonary disease (COPD): Status: Resolved (2) Pain: Status: Acute (3) Nephrostomy present: Status: Acute (4) DNR (do not resuscitate): Status: Acute (5) Advanced care planning/counseling discussion: Status: Acute (6) Palliative care encounter: Status: Acute (7) Weight loss: Status: Acute (8) Bladder malignancy: Status: Inactive Discharge Plan Disposition Patient Disposition: Home W/Home Health Services Condition: Improving Discharge Details Reason For Visit: HospitalAcquiredPneumonia,hypoxicResp failure,COPD Admit Date/Time: 08/12/24 12:30 Admit Provider: Sharan Weinstein Attending Provider: Sharan Weinstein Primary Care Provider: LING LEBLANC Hospital Course Hospital Course: 69 yo M with recent 50lb weight loss and local bladder cancer diagnosis, COPD with chronic hypoxic respiratory failure, and recent admission for COPD exacerbation who was readmitted 08/12 with suddenly worse hypoxia and shortness of breath and COVID-19 positive. He did have a subtle focal infiltrate and met criteria for severe sepsis so he was maintained on cefepime and vancomycin for HAP. He was treated with dexamethasone and remdesavir. He was on BiPAP in overnight. Tocilizumab was ordered but hypoxia improved by the time it was available so it was cancelled. He was on room air x 24 hours before discharge. He had pleuritic chest pain and diffuse t-wave inversions but negative troponins. No pericardial effusion on CT. NSAIDs were considered but defered due to bleeding risk and h/o MAKI. He received 3 doses of remdesavir prior to discharge. Dexamethasone was transitioned back to a prednisone taper. His chronic inhalers were continued. Smoking cessation was emphasized. His procalcitonin was <0.1 on admission and again on day #2, so broad spectrum IV antibiotics were stopped. He was given doxycycline (med interaction with azithro) on discharge for his COPD exacerbation. His nephrostomy tube was found open and draining upon presentation. Urology helped fit a bag to his tube. His CTA was negative for PE, but did show a new liver lesion. The previous T4 lesion was read as an old compression fracture without concern for malignancy. MRI at for the liver lesion to rule out metastatic disease should be considered. He has follow up with oncology to initiate treatment for his bladder cancer. He met with palliative care and confirmed he wanted to be full code, COLST was redone. His pain regimen was adjusted with the help of palliative care, who will manage this as an outpatient. He was given 4tablets of the morphine IR to take home, until he can get to the pharmacy. He had some abdominal pain and constipation but did have a hard BM 08/13 with bisacodyl and PEG. He was given a dose of Relastor 08/14 but this wasn't immediately effective. He was evaluated by PT and home health PT was recommended. He would also benefit from nursing, ongoing help from social work as has heat/housing, food insecurity issues (has community connection support). Home Meds and New Rx's Prescriptions: New benzonatate 100 mg Capsule 100 mg PO TID PRN PRN (Reason: Cough) Qty: 30 0RF doxycycline monohydrate 100 mg tablet 100 mg PO BID Qty: 10 0RF bisacodyl 10 mg suppository 10 mg [place] DAILY PRNQty: 12 2RF Continued Oxygen 2 l inhalation .exertion Qty: 1 0RF Rx Instructions: Use 2LPM with exertion escitalopram oxalate 20 mg tablet 20 mg PO DAILY Qty: 1 0RF acetaminophen 500 mg capsule 1,000 mg PO Q6H PRN (Reason: fever) Qty: 100 2RF Rx Instructions: OK to take with oxycodone 5mg polyethylene glycol 3350 [Miralax] 17 gram/dose powder 17 g PO DAILY Qty: 510 4RF meloxicam 15 mg tablet 15 mg PO DAILY clopidogrel [Plavix] 75 mg tablet 75 mg PO DAILY Qty: 90 3RF lamotrigine [Lamictal] 100 mg tablet 100 mg PO BID lisinopril 10 mg tablet 10 mg PO DAILY Qty: 90 0RF omeprazole 20 mg capsule,delayed release(DR/EC) 20 mg PO DAILY Qty: 90 0RF vitamin B complex-folic acid 0.4 mg tablet 1 tab PO DAILY fluticasone propionate 50 mcg/actuation spray,suspension 1 spray intranasal BID Patient Comments: pt states not taking 05/28/23 Rx Instructions: administer into each nostril Breztri Aerosphere 160-9-4.8 mcg/actuation HFA aerosol inhaler See Rx Instructions .ROUTE .COMPLEX Qty: 32.1 12RF Dose Instruction: INHALE TWO PUFFS BY MOUTH TWICE A DAY Rx Instructions: INHALE TWO PUFFS BY MOUTH TWICE A DAY ipratropium-albuterol 0.5 mg-3 mg(2.5 mg base)/3 mL solution for nebulization See Rx Instructions .ROUTE .COMPLEX Qty: 30 11RF Dose Instruction: USE 1 VIAL IN NEBULIZER DAILY - for rescue Rx Instructions: USE 1 VIAL IN NEBULIZER DAILY - for rescue albuterol sulfate 90 mcg/actuation HFA aerosol inhaler See Rx Instructions .ROUTE .COMPLEX Qty: 8.5 12RF Dose Instruction: INHALE TWO PUFFS BY MOUTH EVERY 6 HOURS NEEDED FOR SHORTNESS OF BREATH OR WHEEZING Rx Instructions: INHALE TWO PUFFS BY MOUTH EVERY 6 HOURS NEEDED FOR SHORTNESS OF BREATH OR WHEEZING trazodone 100 mg tablet 100 mg PO QHS morphine 15 mg tablet See Rx Instructions PO Q6H MDD 4 pill (60 mg) of short acting PRN (Reason: pain) Qty: 60 0RF Rx Instructions: STart with a HALF of a tablet every 4 hours as needed for pain management (use in addition to regular LONG ACTING MORPHINE). CAn increase to a WHOLE pill every 4 hours as needed. orally every 6 hours PRN; docusate sodium [Colace] 100 mg capsule 100 mg PO BID Qty: 20 0RF quetiapine 100 mg tablet 100 mg PO HS Patient Comments: TAKE ONE TABLET BY MOUTH EVERY EVENING prednisone 5 mg tablet See Rx Instructions .ROUTE .COMPLEX Qty: 90 3RF Dose Instruction: TAKE ONE TABLET BY MOUTH EVERY DAY Rx Instructions: TAKE ONE TABLET BY MOUTH EVERY DAY; restart once prednisone taper is completed atorvastatin 20 mg Tablet 20 mg PO DAILY Changed prednisone 10 mg tablet See Rx Instructions .ROUTE .COMPLEX Qty: 36 0RF Taper: Prednisone 10mg taper 40 mg Daily for 3 Days and 0 Hour 30 mg Daily for 3 Days and 0 Hour 20 mg Daily for 5 Days and 0 Hour 10 mg Daily for 5 Days and 0 Hour Rx Instructions: restart 5mg PO daily once taper complete morphine 15 mg tablet extended release 30 mg PO BID MDD 3 pills plus add short acting) Qty: 42 0RF Rx Instructions: PLEASE prioritize this. THey denied our PA for fentanyl and we just heard now, TY CALL office if denied, TY Discharge Instructions Instructions: COVID-19 in adults - Discharge instructions Additional Instructions: You were treated for COVID-19 pneumonia, which caused your COPD to get worse again You should start over with the prednisone taper starting at 40mg on Wednesday 08/15 (see above) You should take 4 more days of azithromycin Follow up with oncology to treat the bladder cancer at [facility] (down the [place] from [facility]) at 10:15am on next SundayAugust [address] Cooper, . You had a growth in your liver. You may need an MRI down at [facility] Palliative care will manage your pain medication Activity:: Activity as Tolerated Equipment/Supplies:: No Equipment Needed Diet:: As Tolerated Discharge Orders Discharge Orders: Discharge Order (Routine); Ordered 08/14/24 Ordered By: Sharan Weinstein DS: Summary Time Spent with Patient providing and/or coordinating discharge services: Greater than 30 minutes Status at Discharge Functional status at discharge: uses cane/walker Overall status at discharge: patient is back to baseline Mental Status: mental status grossly normal Speech and Movement: speech and movement normal Mood: congruent mood Affect: normal affect Quality:SDOH Health Related Social Needs: Health related social needs material hardship(utilities)(Z59.87) Exam Narrative Exam Narrative: Cachectic elderly gentleman sitting up in bed. No supplemental oxygen on. Lungs more clear, normal effort, rate around 20/min. Speech appears to be fluid. CV: RRR, no murmur/rub. Abd soft, minimally tender today, no mass. stage II ulcer on his sacrum. Ext non tender, no edema Psych Mental Status: mental status grossly normal Speech and Movement: speech and movement normal Mood: congruent mood Affect: normal affect DS: Data Vitals/I&O Vitals and I&O: Vital Signs Temperature 36.6 C 08/14/24 07:53 Temperature Source Temporal Artery Scan 08/14/24 07:53 Pulse 74 08/14/24 08:02 Pulse 82 08/13/24 18:00 Respiratory Rate 21 08/13/24 18:00 Respiratory Effort Short of Breath, Labored, Accessory Muscle Use 08/12/24 14:00 Respiratory Depth Deep 08/12/24 14:00 Respiratory Pattern Tachypnea 08/12/24 14:00 Blood Pressure 118/66 08/14/24 08:02 Blood Pressure Mean 82 08/14/24 08:02 Pulse Oximetry 97 08/14/24 08:03 Oxygen Delivery Method Room Air 08/14/24 08:03 Oxygen Flow Rate 0 08/14/24 08:03 Fraction of Inspired Oxygen (FIO2) 08/13/24 08:40 Pain Level 8 08/12/24 12:16 Comment Pt usually on oxygen, put on nonrebreather at 4 L on arrival 08/12/24 09:43 Intake & Output 08/13/24 08/14/24 08/14/24 23:59 11:59 23:59 Intake Total 1580 / 3180 1080 / 1080 Output Total 940 / 2050 1220 / 1220 Balance 640 / 1130 -140 / -140 Weight 54.6 kg Intake: IV 200 / 550 100 / 100 Oral 1380 / 2630 980 / 980 Output: Drainage 75 / 75 250 / 250 Left Posterior 75 / 75 250 / 250 Urine 865 / 1975 970 / 970 Other: Urine Color Yellow Yellow Urine Appearance Cloudy Clear Urine Odor Normal None Comment 200mL voided normally; 50mL voided via nephrostomy. Data Completed and Pending Labs on day of discharge: Labs from last 24 hours 08/14/24 06:45 WBC 19.42 H RBC 3.91 L Hgb 11.8 L Hct 36.0 L MCV 92 MCH 30.2 MCHC 32.8 RDW 16.5 H Plt Count 513 H MPV 9.1 Immature Gran % 0.6 Neutrophils % 87.2 Lymphocytes % 3.2 Monocytes % 8.7 Eosinophils % 0.2 Basophils % 0.1 Nucleated RBC % 0.0 Absolute Neutrophils 16.93 H Absolute Lymphocytes 0.62 L Absolute Monocytes 1.69 H Absolute Eosinophils 0.04 Absolute Basophils 0.02 RBC Morphology Normal Sodium 137 Potassium 4.8 Chloride 99 Carbon Dioxide 31.7 Anion Gap 6.3 BUN 32 H Creatinine 1.2 Est GFR (CKD-EPI 2020) 65.87 Glucose 121 H Calcium 9.7 Magnesium Pending Procalcitonin < 0.10 Add-On Test Request DONE Preliminary micro results at discharge 08/12/24 10:55 Blood Culture - Preliminary Blood NO GROWTH 24 HOURS 08/12/24 10:50 Blood Culture - Preliminary Blood Gram Positive Derik PFSH All Active Problems (Updated 08/13/24 @ 09:30 by Sharan Weinstein) Liver mass (Acute) Compression fracture of T4 vertebra (Acute) Severe sepsis (Acute) Opioid-induced constipation (Acute) DVT prophylaxis (Acute) Pneumonia due to COVID-19 virus (Acute) Pneumonia (Acute) COVID-19 (Acute) Nephrostomy present (Acute) Pain (Acute) Multifactorial: From bladder tumor? From nephrostomy tube? Started on opiates July 2024 while at [facility] palliative care team will manage Frailty syndrome in geriatric patient (Acute) Financial insecurity (Acute) DNR (do not resuscitate) (Acute) See 03/04/2024 COLST. DNR/time limited trial of intubation, +transfer, +treat/abx/IV Advanced care planning/counseling discussion (Acute) Palliative care encounter (Acute) Weight loss (Acute) Chronic fatigue (Acute) Pulmonary cachexia due to chronic obstructive pulmonary disease (Acute) Night sweats (Acute) Unintentional weight loss (Acute) Lumbar transverse process fracture (Acute) MAKI (acute kidney injury) (Acute) Fall (Acute) Pleural nodule (Acute) Ataxia (Acute) Dizziness (Acute) Gait abnormality (Acute) Rib fractures (Acute) Memory loss (Acute) Stroke (Chronic) Post concussion syndrome (Acute) Sacroiliac joint pain (Chronic) COPD (chronic obstructive pulmonary disease) (Acute) Medical History (Updated 08/13/24 @ 09:30 by Sharan Weinstein) Arthritis of right acromioclavicular joint (06/19/16) Hx of dizziness H/O: stroke Spine injury Anxiety with depression Bipolar 1 disorder Insomnia H/O onychomycosis Smoker Eczema Allergic rhinitis Alcohol abuse In remission GERD (gastroesophageal reflux disease) Chronic pain HTN (hypertension) COPD (chronic obstructive pulmonary disease) Coronary artery disease HCAP (healthcare-associated pneumonia) Surgical History (Updated 08/12/24 @ 15:53 by Sharan Weinstein) Nephrostomy status left, 07/30/24 History of shoulder surgery (06/30/16) H/O cystoscopy H/O transurethral resection of bladder tumor (TURBT) History of coronary artery stent placement History of tonsillectomy Rotator Cuff Repair (06/30/16) RIGHT Family History Other Heart disease Hypertension Social History (Updated 08/12/24 @ 15:54 by Sharan Weinstein) Smoking/Tobacco Use Status: Current every day Tobacco Type: cigarettes Smoking packs per day: 0.5 Smoking cigarettes per day: 10.0 Smoking risk assessment performed?: Yes Alcohol Intake: current Alcohol Intake frequency: a few times a month Alcohol type: beer Drug use: Occasionally Substance use type: marijuana Details: states drinks a 6 pack of beer over a 1 month time frame Household members: none Housing: house Number of Children: 1 current occupation: Disabled Pets and animals: No What type of physical activity do you participate in: walking Seatbelt use: sometimes Do you feel safe at home: Yes Do you feel safe in your relationship?: Yes Additional Social history: Lives with roommate in [facility] Time Spent with Patient Time Spent with Patient: 70-84 minutes4 Time was spent: preparing to see the patient(eg.review tests), obtaining and/or reviewing separately otained hiistory, ordering medications,tests, procedures, referring, communicating with other health child care sitter, indepentently interpreting results, counseling the patient and care coordination
--- NOTE | 2024-08-14 12:27 | PDOC.HHF2F_ITS ---
Home Health Referral Home Health Orders Clinical synopsis of why skilled professionals are needed: Complex medical history, active cancer, chronic respiratory failure/COPD, cachexia and weakness with ambulatory disfunction, needs nephrostomy care. Medical diagnosis necessitation home health referral: Cachexia, COPD, chronic respiratory failure, chronic pain, T4 compression fracture Registered Nurse: Check all that apply Instruct on new or changed medication(s)/assess compliance: Ordered Instruct on, and maintenance of, urinary device: Ordered (nephrostomy) Assess for exacerbation of medical condition, instruct patient/caregivers on signs and symptoms to report for early detection: Ordered Physical Therapist: Check all that apply Increase strength & endurance for safe mobility at home: Ordered To design/establish home maintenance program: Ordered Fall reduction therapy program for patient with history of frequent falls: Ordered Home safety evaluation and teaching/gait training including stair management (if applicable): Ordered Better Breathing Program: Ordered Professor Of Criminal Justice: Assist with community resources: Ordered Other: engaged with community connections already Home Bound Status Requires the aid of supportive device (check all that apply): Walker Patient has a condition such that leaving home is medically contraindicated (Describe): cachexia, respiratory failure, bladder cancer, compression fracture, chronic pain Describe why leaving home would require a considerable and taxing effort: Side effects from pain medication (sedation/drowsiness), Requires frequent rest periods and Oxygen Encounter Date and Reason: I certify that a FTF encounter for this patient was performed on August 14, 2024 and that such encounter was related to the primary reason the patient requ ires home health services. The encounter was conducted in the following manner: * By me as the certifying physician, POWDER ROOM ATTENDANT, PA or * By an inpatient physician, POWDER ROOM ATTENDANT or PA during an inpatient stay who communicated findings to me, Certification And Authentication I certify that I composed the above information based on my clinical judgment relating to this patient's medical condition and, if applicable, clinical findings communicated to me by the NPP or inpatient physician who performed the FTF encounter. Name of Provider that will be monitoring home health services: LING LEBLANC
[2024-08-14] MEDS: MORPHine IR 15 MG TAB, 4 TABS/BTL 60 MG (16:41)
== END 2024-08-14 16:55 | disposition home health service (06) | DRG 871 ==
LOC: ER 12:26 → ICU 14:44
PROVIDERS: Admitting Provider Family Medicine; Emergency Provider Nurse Practitioner Family; PCP Nurse Practitioner Family; Visit Provider Family Medicine
DX: A41.9 Sepsis, unspecified organism (principal); J12.82 Pneumonia due to coronavirus disease 2019; U07.1 COVID-19; J96.21 Acute and chronic respiratory failure with hypoxia; J44.1 Chronic obstructive pulmonary disease with (acute) exacerbation; S22.040A Wedge compression fracture of fourth thoracic vertebra, initial encounter for closed fracture; Z68.1 Body mass index [BMI] 19.9 or less, adult; R65.20 Severe sepsis without septic shock; C67.9 Malignant neoplasm of bladder, unspecified; F31.9 Bipolar disorder, unspecified; I25.10 Atherosclerotic heart disease of native coronary artery without angina pectoris; Z93.6 Other artificial openings of urinary tract status; K59.03 Drug induced constipation; R16.0 Hepatomegaly, not elsewhere classified; R63.4 Abnormal weight loss; T40.2X5A Adverse effect of other opioids, initial encounter; F17.210 Nicotine dependence, cigarettes, uncomplicated; K76.9 Liver disease, unspecified; G89.29 Other chronic pain; Z79.891 Long term (current) use of opiate analgesic; R54 Age-related physical debility; Z59.86 Financial insecurity; E88.A Wasting disease (syndrome) due to underlying condition; Z86.73 Personal history of transient ischemic attack (TIA), and cerebral infarction without residual deficits; W19.XXXA Unspecified fall, initial encounter; R26.0 Ataxic gait; R91.1 Solitary pulmonary nodule; R41.3 Other amnesia; G47.00 Insomnia, unspecified; K21.9 Gastro-esophageal reflux disease without esophagitis; I10 Essential (primary) hypertension
CPT/HCPCS: 00123; 36415; 71275; 74177; 80048; 80053; 82805; 84145; 87040; 87077; 87637; 87641; 93005; 94640; 96365; 96367; 96375; 97162; 99291; J1650; 71045; 80202; 81003; 81015; 83605; 83735; 83880; 84484; 85025; 85379; 93010; 94660; 94664; 99223; 99233; 99239; J0248; J0692; J1100; J1171; J2060; J2212; J2270; J2919; J3372; J3475; J3490; J7613; J7620

== ENCOUNTER 2024-08-29 12:34 | Inpatient (IN) | payer MEDICARE, MEDICAID, SELFPAY ==
[2024-08-29] VITALS (42 sets, daily range): BP systolic 115–163; BP diastolic 35–110; PULSE 67–98; RESP 2–32; TEMP 36.3–36.4; O2SAT 82–100
--- NOTE | 2024-08-29 12:30 | RT.EKG_ITS ---
APPROVED REPORT Exam: Resting ECG Reason for Exam: chest pain Patient Location: E HR:84 bpm ECG Measurements Heart Rate 84 AXIS WA 149 P 88 QRSd 89 QRS 68 QT 464 T 62 QTc 548 Conclusion Sinus rhythm...normal P axis, V-rate 60- 99 Right atrial enlargement...P>0.25mV 2 lds or<-0.24mV aVR/aVL Nonspecific T abnrm, anterolateral leads...T <-0.10mV, I aVL V2-V6 Prolonged QT interval...QTc >500mS Physician: no stemi
--- NOTE | 2024-08-29 12:49 | DI.CT_ITS ---
Exam(s) CT CHEST PE ABD PELVIS W EXAM: CT CHEST PE ABD PELVIS W CLINICAL HISTORY: chest pain, cough, sob. TECHNIQUE: Imaging Protocol: Axial computed tomography images with coronal and sagittal reformatted images were created and reviewed. Computer aided detection (CAD) was utilized. CONTRAST MATERIAL: Intravenous: Omnipaque 350 Contrast volume:85 ml Oral: no COMPARISON: CT CT ABDOMEN PELVIS CTA from 04/17/[address] CHEST PE ABD PELVIS W from 08/12/2024 FINDINGS: CHEST: Tracheobronchial tree: Patent. Pulmonary parenchyma: Diffuse emphysematous changes. Scarring lateral right upper lobe. Worsening o f the previously noted infiltrate at the right lower lobe. Bronchial wall thickening and mucous plug ging is now present. Pleura: No effusion or pneumothorax. Mediastinum: Within normal limits. Aorta: Thoracic portion non-dilated. Atherosclerotic changes. Pulmonary arteries: No visible emboli. Heart: No pericardial effusion. Bones: Unremarkable for age. No lytic or blastic lesions. Stable old compression fractures of T4 a nd T5. Sclerotic changes again noted in T4. Sclerotic area in the T11 vertebral body. No acute com pression fractures. Old healed left rib fractures. Soft tissues: Check Actiq body habitus. ABDOMEN and PELVIS: Exam limited by lack of intra-abdominal fat and oral contrast. Liver: Normal density. Increased size of low-density lesion posterior right lobe, 15 millimeters comp ared to 11 on the prior. Additional low-density lesion measuring 7 millimeters seen closer to the di aphragm in the posterior right lobe. Additional low-density lesion seen in the left lobe measuring 1 1 millimeters. Gallbladder and biliary tract: No evidence of stones or wall thickening. No biliary dilatation. Pancreas: Normal density, no abnormal calcifications or inflammatory process. Spleen: Normal. Kidneys: Normal size, contour and axis. No radiodense stones. Left nephrostomy tube again noted romero bhavik the pigtail is no longer located within the renal pelvis but is located in a mid pole aydin. Mil [id number] left hydronephrosis, new from prior. No perinephric collection. No suspicious masses seen. Adrenal glands: No masses seen. Aorta: Abdominal portion non-dilated. Severe atherosclerotic changes of the abdominal aorta and yulisa ac arteries. Multifocal stenosis. No occlusion. Lymph nodes: Within normal limits. Soft tissues: Cachectic body habitus. Bladder: Irregular nodular enhancement again noted along the inferior, left and posterior aspects the bladder. Bowel: No obstruction or bowel wall thickening. Large quantity of stool noted throughout the colon. metallic density noted in posterior right lower pelvis, within the colon, consistent with the patien t's history of ingested coin. Peritoneal cavity: No ascites. No focal collection. No mesenteric inflammatory response. No free ai r. Bones: Old sacral fracture. Heterotopic calcifications posterior and adjacent to the left greater tr ochanter. Reproductive organs: Prostate impresses on the base of the bladder. IMPRESSION: Chest: Right lower lobe pneumonia with mucous plugging. No pulmonary emboli. Abdomen pelvis: Large quantity of stool throughout the colon. Ingested coin noted within colon in lo w pelvis. Moderate left hydronephrosis. The nephrostomy tube is no longer position within the renal pelvis and is position within the mid pole aydin. Stable appearance irregular bladder wall thickening/bladder mass. New and increasing liver lesions consistent with metastases. Findings called to Dr. Vences of the emergency department. RADIATION DOSE DELIVERED: Total DLP DATA REPOSITORY: All CT scans at this facility are submitted to the National Radiology Data Registry (NRDR) Dose Index Registry (DIR) with the [employer] ([employer]). RADIATION OPTIMIZATION: All CT scans at this facility use at least one of these dose optimization te chniques: automated exposure control; mA and/or kV adjustment per patient size (includes targeted exa ms where dose is matched to clinical indication); or iterative reconstruction.
--- NOTE | 2024-08-29 13:01 | W.ED.GENAD ---
Discharge Plan Disposition Patient Disposition: Admit to [facility] Condition: Improving Discharge Details Chief Complaint: Chest Pain Clinical Impression: Acute hyperkalemia, COPD exacerbation, Exercise hypoxemia, Pneumonia Primary Care Provider: LING [facility] ED Provider: Magen Vences Home Meds and New Rx's Prescriptions: No Action Oxygen 2 l inhalation .exertion Qty: 1 0RF Rx Instructions: Use 2LPM with exertion escitalopram oxalate 20 mg tablet 20 mg PO DAILY Qty: 1 0RF acetaminophen 500 mg capsule 1,000 mg PO Q6H PRN (Reason: fever) Qty: 100 2RF Rx Instructions: OK to take with oxycodone 5mg polyethylene glycol 3350 [Miralax] 17 gram/dose powder 17 g PO DAILY Qty: 510 4RF meloxicam 15 mg tablet 15 mg PO DAILY clopidogrel [Plavix] 75 mg tablet 75 mg PO DAILY Qty: 90 3RF lamotrigine [Lamictal] 100 mg tablet 100 mg PO BID lisinopril 10 mg tablet 10 mg PO DAILY Qty: 90 0RF omeprazole 20 mg capsule,delayed release(DR/EC) 20 mg PO DAILY Qty: 90 0RF vitamin B complex-folic acid 0.4 mg tablet 1 tab PO DAILY fluticasone propionate 50 mcg/actuation spray,suspension 1 spray intranasal BID Patient Comments: pt states not taking 05/28/23 Rx Instructions: administer into each nostril [employer] Aerosphere 160-9-4.8 mcg/actuation HFA aerosol inhaler See Rx Instructions .ROUTE .COMPLEX Qty: 32.1 12RF Dose Instruction: INHALE TWO PUFFS BY MOUTH TWICE A DAY Rx Instructions: INHALE TWO PUFFS BY MOUTH TWICE A DAY ipratropium-albuterol 0.5 mg-3 mg(2.5 mg base)/3 mL solution for nebulization See Rx Instructions .ROUTE .COMPLEX Qty: 30 11RF Dose Instruction: USE 1 VIAL IN NEBULIZER DAILY - for rescue Rx Instructions: USE 1 VIAL IN NEBULIZER DAILY - for rescue albuterol sulfate 90 mcg/actuation HFA aerosol inhaler See Rx Instructions .ROUTE .COMPLEX Qty: 8.5 12RF Dose Instruction: INHALE TWO PUFFS BY MOUTH EVERY 6 HOURS NEEDED FOR SHORTNESS OF BREATH OR WHEEZING Rx Instructions: INHALE TWO PUFFS BY MOUTH EVERY 6 HOURS NEEDED FOR SHORTNESS OF BREATH OR WHEEZING trazodone 100 mg tablet 100 mg PO QHS morphine 15 mg tablet See Rx Instructions PO Q6H MDD 4 pill (60 mg) of short acting PRN (Reason: pain) Qty: 60 0RF Rx Instructions: STart with a HALF of a tablet every 4 hours as needed for pain management (use in addition to regular LONG ACTING MORPHINE). CAn increase to a WHOLE pill every 4 hours as needed. orally every 6 hours PRN; fentanyl 12 mcg/hr patch 72 hour 1 patch transdermal Q72H MDD 1 patch Qty: 5 0RF Patient Comments: states he does not have one docusate sodium [Colace] 100 mg capsule 100 mg PO BID Qty: 20 0RF quetiapine 100 mg tablet 100 mg PO HS Patient Comments: TAKE ONE TABLET BY MOUTH EVERY EVENING morphine 15 mg tablet extended release 15 mg PO Q12H atorvastatin 20 mg Tablet 20 mg PO DAILY benzonatate 100 mg Capsule 100 mg PO TID PRN PRN (Reason: Cough) Qty: 30 0RF bisacodyl 10 mg suppository [address] DAILY PRNQty: 12 2RF HPI General Date/Time Provider Initiated Documentation: 08/29/24 12:49. HPI Narrative: 69-year-old male who is a notably poor historian, who answers most questions with the hell if I know, why are you asking me so many damn questions presents today via EMS for chest pain. Report from patient and EMS indicates that the patient has had left-sided chest and mid abdominal pain for anywhere between 1 day and 3 weeks. He does not give or is not willing to give any other specific factors. He states that it is worse with breathing. He denies any other radiation. He denies cough. He is on 2 L of oxygen at baseline. Review of past medical history online shows evidence of COPD, nephrostomy tube placement, liver mass, T4 compression fracture, bladder cancer, bipolar type I, GERD, hypertension and coronary artery disease. Past surgical history appears to be positive for coronary stent, TURBT. Patient does state that he goes [facility] [place], and we will reach out to them for medical records. Related Data Home Medications ?Medication ?Instructions ?Recorded ?Confirmed lisinopril 10 mg tablet 10 mg PO DAILY #90 tabs 08/19/18 08/29/24 omeprazole 20 mg capsule,delayed 20 mg PO DAILY #90 caps 08/19/18 08/29/24 release meloxicam 15 mg tablet 15 mg PO DAILY 01/27/19 08/29/24 atorvastatin 20 mg tablet 20 mg PO DAILY 04/29/20 08/29/24 Oxygen 2 l inhalation .exertion #1 supp 01/22/23 08/29/24 fluticasone propionate 50 1 spray intranasal BID 04/04/23 08/29/24 mcg/actuation nasal spray,suspension vitamin B complex-folic acid 0.4 1 tab PO DAILY 04/04/23 08/29/24 mg tablet docusate sodium 100 mg capsule 100 mg PO BID #20 caps 05/28/23 08/29/24 (Colace) clopidogrel 75 mg tablet (Plavix) 75 mg PO DAILY #90 tabs 08/23/23 08/29/24 lamotrigine 100 mg tablet 100 mg PO BID 10/23/23 08/29/24 (Lamictal) budesonide 160 mcg-glycopyr 9 See Rx Instructions .Route 11/13/23 08/29/24 mcg-formot 4.8 mcg/actuation HFA .COMPLEX #32.1 grams inhaler ([employer]) escitalopram oxalate 20 mg tablet 20 mg PO DAILY #1 tab 12/04/23 08/29/24 ipratropium 0.5 mg-albuterol 3 mg See Rx Instructions .Route 12/28/23 08/29/24 (2.5 mg base)/3 mL nebulization .COMPLEX #30 ea soln albuterol sulfate 90 mcg/actuation See Rx Instructions .Route 03/16/24 08/29/24 aerosol inhaler .COMPLEX #8.5 grams trazodone 100 mg tablet 100 mg PO QHS 08/04/24 08/29/24 acetaminophen 500 mg capsule 1,000 mg (2 x 500 mg) PO Q6H PRN 08/05/24 08/29/24 fever #100 caps polyethylene glycol 3350 17 17 g PO DAILY Prevent opioid 08/05/24 08/29/24 gram/dose oral powder (Miralax) induced constipation #510 grams quetiapine 100 mg tablet 100 mg PO HS 08/06/24 08/29/24 morphine 15 mg immediate release See Rx Instructions PO Q6H PRN 08/12/24 08/29/24 tablet pain #60 tabs benzonatate 100 mg capsule 100 mg PO TID PRN PRN Cough #30 08/14/24 08/29/24 caps bisacodyl 10 mg rectal suppository [address] DAILY PRN #12 ea 08/14/24 08/29/24 fentanyl 12 mcg/hr transdermal 1 patch transdermal Q72H #5 ea 08/29/24 08/29/24 patch morphine 15 mg tablet,extended 15 mg PO Q12H 08/29/24 08/29/24 release Previous Rx's ?Medication ?Instructions ?Recorded lisinopril 10 mg tablet 10 mg PO DAILY #90 tabs 08/19/18 omeprazole 20 mg capsule,delayed 20 mg PO DAILY #90 caps 08/19/18 release Oxygen 2 l inhalation .exertion #1 supp 01/22/23 docusate sodium 100 mg capsule 100 mg PO BID #20 caps 05/28/23 (Colace) clopidogrel 75 mg tablet (Plavix) 75 mg PO DAILY #90 tabs 08/23/23 budesonide 160 mcg-glycopyr 9 See Rx Instructions .Route 11/13/23 mcg-formot 4.8 mcg/actuation HFA .COMPLEX #32.1 grams inhaler ([employer]) escitalopram oxalate 20 mg tablet 20 mg PO DAILY #1 tab 12/04/23 ipratropium 0.5 mg-albuterol 3 mg See Rx Instructions .Route 12/28/23 (2.5 mg base)/3 mL nebulization .COMPLEX #30 ea soln albuterol sulfate 90 mcg/actuation See Rx Instructions .Route 03/16/24 aerosol inhaler .COMPLEX #8.5 grams acetaminophen 500 mg capsule 1,000 mg (2 x 500 mg) PO Q6H PRN 08/05/24 fever #100 caps polyethylene glycol 3350 17 17 g PO DAILY Prevent opioid 08/05/24 gram/dose oral powder (Miralax) induced constipation #510 grams morphine 15 mg immediate release See Rx Instructions PO Q6H PRN 08/12/24 tablet pain #60 tabs benzonatate 100 mg capsule 100 mg PO TID PRN PRN Cough #30 08/14/24 caps bisacodyl 10 mg rectal suppository [address] DAILY PRN #12 ea 08/14/24 fentanyl 12 mcg/hr transdermal 1 patch transdermal Q72H #5 ea 08/29/24 patch Allergies Allergy/AdvReac Type Severity Reaction Status Date / Time carbamazepine Allergy Intermediate Hives Unverified 08/29/24 12:43 acetaminophen (From Tylenol) Allergy unknown Verified 08/29/24 12:43 simvastatin Allergy unknown Unverified 08/29/24 12:43 General Stated Complaint: Chest Pain GEMA: 3 Review of Systems All systems reviewed & are unremarkable except as noted in HPI and below Exam Narrative Exam Narrative: 1.Const: Thin cachectic appearing male 2.Eyes: PERRL, no conjunctival injection, and symmetrical lids. 3.ENT: Atraumatic external nose and ears. Moist MM. Neck: Symmetric, trachea midline, No thyromegaly. 4.CVS: +S1/S2, Peripheral pulses 2+ and equal in all extremities. Brisk capillary refill in all extremities. 5.RESP: Rhonchorous breath sounds with wheezes and scattered crackles. 6.GI: Soft, Nontender/Nondistended, No hepatosplenomegaly. No guarding or rebound. Nephrostomy tubes present on the left. 7.MSK: Normocephalic/Atraumatic, Extremities w/o deformity or ttp No cyanosis or clubbing, Normal movement of all extremities 8.Skin: Warm, Dry. No rashes or lesions. 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 Sensation grossly intact, no focal neurologic deficits. 10.Psych: (AAO) x1. Quite ornery in behavior Course Vital Signs Vital signs: Vital Signs Temperature 36.4 C L 08/29/24 12:36 Pulse 94 H 08/29/24 12:36 Respiratory Rate 20 08/29/24 12:36 Blood Pressure 149/110 H 08/29/24 12:36 Pulse Oximetry 96 08/29/24 12:36 Temperature 36.4 C L 08/29/24 12:36 Pulse 94 H 08/29/24 12:36 Respiratory Rate 20 08/29/24 12:36 Respiratory Effort Short of Breath, Pursed Lip 08/29/24 12:46 Respiratory Depth Retractive 08/29/24 12:46 Respiratory Pattern Tachypnea 08/29/24 12:46 Blood Pressure 149/110 H 08/29/24 12:36 Blood Pressure Position Sitting 08/29/24 12:36 Pulse Oximetry 96 08/29/24 12:36 Oxygen Delivery Method Nasal Cannula 08/29/24 12:36 Oxygen Flow Rate 4 08/29/24 12:36 Pain Level 8 08/29/24 12:36 Medical Decision Making 69-year-old male who is a notably poor historian, who answers most questions with the hell if I know, why are you asking me so many damn questions presents today via EMS for chest pain. Report from patient and EMS indicates that the patient has had left-sided chest and mid abdominal pain for anywhere between 1 day and 3 weeks. He does not give or is not willing to give any other specific factors. He states that it is worse with breathing. He denies any other radiation. He denies cough. He is on 2 L of oxygen at baseline. Review of past medical history online shows evidence of COPD, nephrostomy tube placement, liver mass, T4 compression fracture, bladder cancer, bipolar type I, GERD, hypertension and coronary artery disease. Past surgical history appears to be positive for coronary stent, TURBT. Patient does state that he goes [facility] [place], and we will reach out to them for medical records. Exam demonstrates rhonchorous breath sounds with wheezes. Nephrostomy tubes present on the left. No signs of focal trauma to the chest or abdomen. Questionable tenderness in the left abdomen. Differential is broad, not obviously limited by the lack of patient interaction or history. Differential includes cardiac etiology, ACS, NSTEMI, pneumonia, COPD exacerbation, pulmonary embolism or dissection, nephrostomy tube complication, UTI, pyelonephritis, kidney stone. Pancreatitis. We will evaluate for these, will give breathing treatment and steroids, monitor closely and reassess. 3:54 PM CAT scan has returned, patient does have a coin foreign body in his abdomen. This was known. He also has a right lower lobe pneumonia with mucous plugging. No pulmonary emboli. Nephrostomy tube is no longer in the original position within the renal pelvis but does appear to be in the midpole calyx, however he does continue to demonstrate stable urinary and renal function. The patient's COVID flu and RSV test is negative. Alcohol level negative. Procalcitonin elevated at 0.13. Troponin stable. proBNP normal. Lipase normal. Patient's pH is stable, but pCO2 is elevated at 60 suggesting a chronic component. Bicarb high at 35. Patient does have a white count of 14.7 which correlates with his pneumonia. We will give ceftriaxone and doxycycline for treatment. Patient demonstrates stable oxygenation at rest and around 97% on his 2 L, however when we get him up to ambulate he drops down to 84% quite rapidly. He feels subjectively short of breath. Patient's initial potassium was high at 5.4. We gave DuoNeb and albuterol treatment, insulin of 10 units IV, and an amp of D50 and this corrected to 4.6. With the patient's hypoxemia associated with ambulation, his pneumonia and his risk factors I do feel that admission is indicated at this stage. We did contact palliative care as they have seen the patient in the past, and they will attempt to see the patient today. Additionally we did contact the hospitalist and he agrees on admission for the patient for medical reasons at this time. I have extensively reviewed the treatment plan with the patient. I have addressed all patient concerns at this time. I have also discussed the plan with the admitting physician and they agree with the current assessment and plan and have agreed to assume responsibility for the patient. All parties demonstrate verbal understanding and agreement with our assessment and plan at this time. The documentation in this chart was dictated using Mideo[employer] dictation software. Please excuse any dictation errors. FINDINGS: CHEST: Tracheobronchial tree: Patent. Pulmonary parenchyma: Diffuse emphysematous changes. Scarring lateral right upper lobe. Worsening of the previously noted infiltrate at the right lower lobe. Bronchial wall thickening and mucous plugging is now present. Pleura: No effusion or pneumothorax. Mediastinum: Within normal limits. Aorta: Thoracic portion non-dilated. Atherosclerotic changes. Pulmonary arteries: No visible emboli. Heart: No pericardial effusion. Bones: Unremarkable for age. No lytic or blastic lesions. Stable old compression fractures of T4 and T5. Sclerotic changes again noted in T4. Sclerotic area in the T11 vertebral body. No acute compression fractures. Old healed left rib fractures. Soft tissues: Check Actiq body habitus. ABDOMEN and PELVIS: Exam limited by lack of intra-abdominal fat and oral contrast. Liver: Normal density. Increased size of low-density lesion posterior right lobe, 15 millimeters compared to 11 on the prior. Additional low-density lesion measuring 7 millimeters seen closer to the diaphragm in the posterior right lobe. Additional low-density lesion seen in the left lobe measuring 11 millimeters. Gallbladder and biliary tract: No evidence of stones or wall thickening. No biliary dilatation. Pancreas: Normal density, no abnormal calcifications or inflammatory process. Spleen: Normal. Kidneys: Normal size, contour and axis. No radiodense stones. Left nephrostomy tube again noted however the pigtail is no longer located within the renal pelvis but is located in a mid pole aydin. Wgsm-di-dceozybr left hydronephrosis, new from prior. No perinephric collection. No suspicious masses seen. Adrenal glands: No masses seen. Aorta: Abdominal portion non-dilated. Severe atherosclerotic changes of the abdominal aorta and iliac arteries. Multifocal stenosis. No occlusion. Lymph nodes: Within normal limits. Soft tissues: Cachectic body habitus. Bladder: Irregular nodular enhancement again noted along the inferior, left and posterior aspects the bladder. Bowel: No obstruction or bowel wall thickening. Large quantity of stool noted throughout the colon. metallic density noted in posterior right lower pelvis, within the colon, consistent with the patient's history of ingested coin. Peritoneal cavity: No ascites. No focal collection. No mesenteric inflammatory response. No free air. Bones: Old sacral fracture. Heterotopic calcifications posterior and adjacent to the left greater trochanter. Reproductive organs: Prostate impresses on the base of the bladder. IMPRESSION: Chest: Right lower lobe pneumonia with mucous plugging. No pulmonary emboli. Abdomen pelvis: Large quantity of stool throughout the colon. Ingested coin noted within colon in low pelvis. Moderate left hydronephrosis. The nephrostomy tube is no longer position within the renal pelvis and is position within the mid pole aydin. Stable appearance irregular bladder wall thickening/bladder mass. New and increasing liver lesions consistent with metastases. Findings called to Dr. Vences of the emergency department. Quality:SDOH Health Related Social Needs: Health related social needs material hardship(utilities)(Z59.87) Critical Care Time Critical Care Time Critical Care Time: Yes Total Critical Care Time: 45 Attestation: Upon my evaluation, this patient had a high probability of imminent or life-threatening deterioration, which required my direct attention, intervention, and personal management. I have personally provided 45 minutes of critical care time exclusive of time spent on separately billable procedures. Time includes review of laboratory data, radiology results, discussion with consultants, and monitoring for potential decompensation. Interventions were performed as documented. [facility] All Active Problems (Updated 08/29/24 @ 16:01 by Magen Vences DO) Pneumonia (Acute) Exercise hypoxemia (Acute) COPD exacerbation (Acute) Acute hyperkalemia (Acute) Urothelial cancer (Acute) locally invasive 8.5 cm mass partially resected 07/29/2024 [facility] [place]e. Bebeto hydronephrosis (nephrostomy placed at time of surgery). Positive pelvic lymph nodes. Dr. Santamaria, palliative RT planned Liver mass (Acute) Compression fracture of T4 vertebra (Acute) Opioid-induced constipation (Acute) Pneumonia due to COVID-19 virus (Acute) Nephrostomy present (Acute) Pain (Acute) Multifactorial: From bladder tumor? From nephrostomy tube? Started on opiates July 2024 while at [facility] [place] [facility] palliative care team will manage Frailty syndrome in geriatric patient (Acute) Financial insecurity (Acute) Advanced care planning/counseling discussion (Acute) Palliative care encounter (Acute) Weight loss (Acute) Chronic fatigue (Acute) Pulmonary cachexia due to chronic obstructive pulmonary disease (Acute) Night sweats (Acute) Unintentional weight loss (Acute) MAKI (acute kidney injury) (Acute) Lumbar transverse process fracture (Acute) Fall (Acute) Pleural nodule (Acute) Ataxia (Acute) Dizziness (Acute) Gait abnormality (Acute) Rib fractures (Acute) Memory loss (Acute) Stroke (Chronic) Post concussion syndrome (Acute) Sacroiliac joint pain (Chronic) COPD (chronic obstructive pulmonary disease) (Acute) Medical History (Updated 08/29/24 @ 16:01 by Magen Vences DO) Arthritis of right acromioclavicular joint (06/19/16) Hx of dizziness H/O: stroke Spine injury Anxiety with depression Bipolar 1 disorder Insomnia H/O onychomycosis Smoker Eczema Allergic rhinitis Alcohol abuse In remission GERD (gastroesophageal reflux disease) Chronic pain HTN (hypertension) COPD (chronic obstructive pulmonary disease) Coronary artery disease HCAP (healthcare-associated pneumonia) Surgical History (Updated 08/12/24 @ 15:53 by Sharan Weinstein) Nephrostomy status left, 07/30/24 History of shoulder surgery (06/30/16) H/O cystoscopy H/O transurethral resection of bladder tumor (TURBT) History of coronary artery stent placement History of tonsillectomy Rotator Cuff Repair (06/30/16) RIGHT Family History Other Heart disease Hypertension Social History (Updated 08/12/24 @ 15:54 by Sharan Weinstein) Smoking/Tobacco Use Status: Current every day Tobacco Type: cigarettes Smoking packs per day: 0.5 Smoking cigarettes per day: 10.0 Smoking risk assessment performed?: Yes Alcohol Intake: current Alcohol Intake frequency: a few times a month Alcohol type: beer Drug use: Occasionally Substance use type: marijuana Details: states drinks a 6 pack of beer over a 1 month time frame Household members: none Housing: house Number of Children: 1 current occupation: Disabled Pets and animals: No What type of physical activity do you participate in: walking Seatbelt use: sometimes Do you feel safe at home: Yes Do you feel safe in your relationship?: Yes Additional Social history: Lives with roommate in trailer outside of [facility]
[2024-08-29 13:15] LABS: BE (Venous) 10 mmol/L (-2-3); HCO3 (Venous) 35 mmol/L (23-28); Lactate 1.6 mmol/L (0.6-1.4); O2 Sat (Venous) 51 %; TCO2 (Venous) 33 mmol/L (24-29); pCO2 (Venous) 60 mmHg (41-51); pH (Venous) 7.38 (7.31-7.41); pO2 (Venous) 29 mmHg
[2024-08-29 13:18] LABS: Abs Immature Grans 0.08 10^3/uL (0.0-0.06); Absolute Basophil Count 0.01 10^3/uL (0.0-0.2); Absolute Eosinophil Count 0.04 10^3/uL (0.0-0.7); Absolute Lymphocyte Count 0.25 10^3/uL (1.2-3.4); Absolute Monocyte Count 0.46 10^3/uL (0.1-0.8); Absolute Neutrophil Count 13.86 10^3/uL (1.2-6.7); Basophils % 0.1 %; Eosinophils % 0.3 %; HCT 36.4 % (40.0-50.0); HGB 11.8 g/dL (13.5-17.5); Immature Grans % 0.5 %; Lymphocytes % 1.7 %; MCH 30.1 pg (27.0-33.0); MCHC 32.4 % (32.0-36.0); MCV 93 fL (80-95); MPV 9.4 fL (8.0-11.0); Monocytes % 3.1 %; Neutrophils % 94.3 %; Platelet Count 283 10^3/uL (130-400); RBC 3.92 10^6/uL (4.36-5.78); RDW 15.8 % (11.8-14.1); RDW-SD 53.7 fL
[2024-08-29] MEDS: Albuterol/Ipratropium 3 ML UPD VIAL UPD ×2 (13:31→19:26)
[2024-08-29] MEDS: methylPREDNISolone SUCC 125 MG VIAL IVP (13:31)
[2024-08-29 13:44] LABS: ALT 28 U/L (16-63); AST 25 U/L (15-37); Albumin 2.9 g/dL (3.4-5.0); Alkaline Phosphatase 81 U/L (46-116); Anion Gap 3.9 mmol/L (3-11); BUN 42 mg/dL (7-18); Bilirubin, Total 0.26 mg/dL (0.2-1.0); CO2 35.1 mmol/L (21.0-32.0); CREATININE 1.2 mg/dL (0.70-1.30); Calcium 9.5 mg/dL (8.5-10.1); Chloride 100 mmol/L (98-107); Estimated GFR 65.87 (mL/min/1.73m2); Glucose 103 mg/dL (74-106); Lipase 12 U/L (<78); NT-proBNP 367 pg/mL (<300); Potassium 5.4 mmol/L (3.5-5.1); Sodium 139 mmol/L (136-145); Total Protein 6.7 g/dL (6.4-8.2); Troponin I 55 ng/L (<or=76)
[2024-08-29 13:46] LABS: ETHANOL BLOOD < 3.0 mg/dL (<10)
[2024-08-29 13:56] LABS: COVID-19 PCR Negative (Negative); Influenza A PCR Negative (Negative); Influenza B PCR Negative (Negative); RSV PCR Negative (Negative)
[2024-08-29 13:57] LABS: Source Nasopharynx
[2024-08-29] MEDS: Omnipaque 350 MG/ML 100 ML BTL IJ (14:05)
[2024-08-29] MEDS: Normal Saline - Diluent 50 ML VIAL IJ (14:08)
[2024-08-29 14:22] LABS: Procalcitonin 0.13 ng/mL
[2024-08-29] MEDS: Albuterol 2.5 MG/3 ML INH SOLN VIAL UPD (14:24)
[2024-08-29] MEDS: Dextrose 50%-Water 25 GM/50 ML SYR IVP (14:24)
[2024-08-29] MEDS: Insulin REGULAR-Human 100 UNITS/ML UNIT 10 UNITS SC (14:24)
[2024-08-29 15:26] LABS: Anion Gap 3.8 mmol/L (3-11); BUN 40 mg/dL (7-18); CO2 33.2 mmol/L (21.0-32.0); CREATININE 1.2 mg/dL (0.70-1.30); Calcium 9.3 mg/dL (8.5-10.1); Chloride 101 mmol/L (98-107); Estimated GFR 65.87 (mL/min/1.73m2); Glucose 137 mg/dL (74-106); Potassium 4.6 mmol/L (3.5-5.1); Sodium 138 mmol/L (136-145)
[2024-08-29 15:35] LABS: Troponin I 58 ng/L (<or=76)
[2024-08-29] MEDS: DOXYCYCLINE 100 MG in Normal Saline 100 ML IVPB (16:00)
--- NOTE | 2024-08-29 16:35 | W.PM.HP.N ---
Date of service: 08/29/24 Time of Service: 16:35 Assessment and Plan Assessment and plan (1) Nephrostomy present: Status: Acute Assessment and plan: Placed 07/30 at due to obstructing bladder mass. Draining Bladder scan pending post void (2) Bladder malignancy: Status: Inactive Assessment and plan: pending treatment at . (3) COPD (chronic obstructive pulmonary disease): Status: Acute Assessment and plan: Continue home meds On home O2; keep SPO2 > 88% (4) Pain: Status: Acute Assessment and plan: Chronic pain with worsening associated with bladder malignancy, T4 compression fracture. Seeing palliative. Morphine for pain (5) Coronary artery disease: Assessment and plan: Some pleuritic pain that is not c/w cardiac, negative troponins x 3 on admission Continue outpatient cardiac meds. (6) Compression fracture of T4 vertebra: Status: Acute Assessment and plan: Healing compression fx - morphine for pain (7) Liver mass: Status: Acute Assessment and plan: On admission CT, need to assess for metastases. No present on CT earlier in this month at . MRI is best evaluation, but should be done at as they are able to given LRADs staging of liver lesions to better assess risk of malignancy. (8) Opioid-induced constipation: Status: Acute Assessment and plan: Continue scheduled PEG. If necessary still could consider Relastor. (9) Advanced care planning/counseling discussion: Status: Acute Assessment and plan: Palliative patient. Pain management as above Was DNR, but clearly telling me today he wants full code. Prognosis for surviving resuscitation or intubation is not good, Community connections CHW also seeing patient to help with social barriers. (10) DVT prophylaxis: Status: Deleted Assessment and plan: LMWH, high risk with CA and recent COVID History of Present Illness History of Present Illness Chief Complaint: Abdominal pain Narrative: A 69-year-old male, who is a notably poor historian, presents via EMS with complaints of left-sided chest and mid-abdominal pain. The patient reports that the pain has been ongoing for anywhere between one day and three weeks, but he is unable or unwilling to provide more specific details. He states that the pain worsens with breathing, but denies any radiation of the pain or associated cough. The patient is on 2 liters of oxygen at baseline. Review of his medical history reveals multiple significant comorbidities, including chronic obstructive pulmonary disease (COPD), nephrostomy tube placement, liver mass, T4 compression fracture, bladder cancer, bipolar type I, gastroesophageal reflux disease, hypertension, and coronary artery disease. His past surgical history includes coronary stent placement and transurethral resection of bladder tumor. The patient also mentions that he receives care at the [facility], and efforts will be made to obtain his medical records from there. Given the patient?s history, the differential diagnosis for his current symptoms is broad. The left-sided chest pain, worsening with breathing, raises the concern for pleuritic causes, such as pneumonia, pulmonary embolism, or a COPD exacerbation. His history of CAD and coronary stent placement is also concerning for the possibility of acute coronary syndrome, though the lack of typical radiating pain and other classic signs of myocardial ischemia somewhat reduces this likelihood. The liver mass and bladder cancer raise the possibility of referred pain or metastatic disease, while GERD could also be contributing to his abdominal symptoms. Additionally, the patient?s T4 compression fracture may be a source of musculoskeletal pain. An electrocardiogram was obtained to rule out ischemic changes, along with troponin and BNP levels to assess for myocardial injury or heart failure. Labs in the ED: WBC 14.70, Hgb 11.8, sodium 138, potassium 4.6, carbon dioxide 33.2, BUN 40, Cr 1.2, Glucose 137, Calcium 9.3, Troponin 58 and 53, proBNP 367, lactic acid 1.6, VBG pH 7.38, pCO2 60, HCO3 Diagnostics: CT Chest/abd/pelvis: Chest: Right lower lobe pneumonia with mucous plugging. No pulmonary emboli. Abdomen pelvis: Large quantity of stool throughout the colon. Ingested coin noted within colon in low pelvis. Moderate left hydronephrosis. The nephrostomy tube is no longer position within the renal pelvis and is position within the mid pole aydin. Stable appearance irregular bladder wall thickening/bladder mass. New and increasing liver lesions consistent with metastases. Patient is admitted to the medical floor for further testing and treatment. Patient is a full code. Review of Systems All systems reviewed & are unremarkable except as noted in HPI and below PFSH All Active Problems (Updated 08/29/24 @ 17:40 by NUZHAT BLANCO) Pneumonia (Acute) Exercise hypoxemia (Acute) COPD exacerbation (Acute) Acute hyperkalemia (Acute) Urothelial cancer (Acute) locally invasive 8.5 cm mass partially resected 07/29/[place] [facility] [place] L hydronephrosis (nephrostomy placed at time of surgery). Positive pelvic lymph nodes. Dr. Santamaria, palliative RT planned Liver mass (Acute) Compression fracture of T4 vertebra (Acute) Opioid-induced constipation (Acute) Pneumonia due to COVID-19 virus (Acute) Nephrostomy present (Acute) Pain (Acute) Multifactorial: From bladder tumor? From nephrostomy tube? Started on opiates July 2024 [place] [facility] [place] [facility] [facility] palliative care team will manage Frailty syndrome in geriatric patient (Acute) Financial insecurity (Acute) Advanced care planning/counseling discussion (Acute) Palliative care encounter (Acute) Weight loss (Acute) Chronic fatigue (Acute) Pulmonary cachexia due to chronic obstructive pulmonary disease (Acute) Night sweats (Acute) Unintentional weight loss (Acute) MAKI (acute kidney injury) (Acute) Lumbar transverse process fracture (Acute) Fall (Acute) Pleural nodule (Acute) Ataxia (Acute) Dizziness (Acute) Gait abnormality (Acute) Rib fractures (Acute) Memory loss (Acute) Stroke (Chronic) Post concussion syndrome (Acute) Sacroiliac joint pain (Chronic) COPD (chronic obstructive pulmonary disease) (Acute) Medical History (Updated 08/29/24 @ 17:40 by NUZHAT BLANCO) Arthritis of right acromioclavicular joint (06/19/16) Hx of dizziness H/O: stroke Spine injury Anxiety with depression Bipolar 1 disorder Insomnia H/O onychomycosis Smoker Eczema Allergic rhinitis Alcohol abuse In remission GERD (gastroesophageal reflux disease) Chronic pain HTN (hypertension) COPD (chronic obstructive pulmonary disease) Coronary artery disease HCAP (healthcare-associated pneumonia) Surgical History (Updated 08/12/24 @ 15:53 by Sharan Weinstein) Nephrostomy status left, 07/30/24 History of shoulder surgery (06/30/16) H/O cystoscopy H/O transurethral resection of bladder tumor (TURBT) History of coronary artery stent placement History of tonsillectomy Rotator Cuff Repair (06/30/16) RIGHT Family History Other Heart disease Hypertension Social History (Updated 08/12/24 @ 15:54 by Sharan Weinstein) Smoking/Tobacco Use Status: Current every day Tobacco Type: cigarettes Smoking packs per day: 0.5 Smoking cigarettes per day: 10.0 Smoking risk assessment performed?: Yes Alcohol Intake: current Alcohol Intake frequency: a few times a month Alcohol type: beer Drug use: Occasionally Substance use type: marijuana Details: states drinks a 6 pack of beer over a 1 month time frame Household members: none Housing: house Number of Children: 1 current occupation: Disabled Pets and animals: No What type of physical activity do you participate in: walking Seatbelt use: sometimes Do you feel safe at home: Yes Do you feel safe in your relationship?: Yes Additional Social history: Lives [place] [facility]mate [facility] Allergies and Home Medications Allergies Allergy/AdvReac Type Severity Reaction Status Date / Time carbamazepine Allergy Intermediate Hives Unverified 08/29/24 12:43 acetaminophen (From Tylenol) Allergy unknown Verified 08/29/24 12:43 simvastatin Allergy unknown Unverified 08/29/24 12:43 Home Medications ?Medication ?Instructions ?Recorded ?Confirmed ?Type lisinopril 10 mg tablet 10 mg PO DAILY #90 tabs 08/19/18 08/29/24 Rx omeprazole 20 mg capsule,delayed 20 mg PO DAILY #90 caps 08/19/18 08/29/24 Rx release meloxicam 15 mg tablet 15 mg PO DAILY 01/27/19 08/29/24 History atorvastatin 20 mg tablet 20 mg PO DAILY 04/29/20 08/29/24 History Oxygen 2 l inhalation .exertion #1 supp 01/22/23 08/29/24 Rx fluticasone propionate 50 1 spray intranasal BID 04/04/23 08/29/24 History mcg/actuation nasal spray,suspension vitamin B complex-folic acid 0.4 1 tab PO DAILY 04/04/23 08/29/24 History mg tablet docusate sodium 100 mg capsule 100 mg PO BID #20 caps 05/28/23 08/29/24 Rx (Colace) clopidogrel 75 mg tablet (Plavix) 75 mg PO DAILY #90 tabs 08/23/23 08/29/24 Rx lamotrigine 100 mg tablet 100 mg PO BID 10/23/23 08/29/24 History (Lamictal) budesonide 160 mcg-glycopyr 9 See Rx Instructions .Route 11/13/23 08/29/24 Rx mcg-formot 4.8 mcg/actuation HFA .COMPLEX #32.1 grams inhaler (Breztri order[employer]phere) escitalopram oxalate 20 mg tablet 20 mg PO DAILY #1 tab 12/04/23 08/29/24 Rx ipratropium 0.5 mg-albuterol 3 mg See Rx Instructions .Route 12/28/23 08/29/24 Rx (2.5 mg base)/3 mL nebulization .COMPLEX #30 ea soln albuterol sulfate 90 mcg/actuation See Rx Instructions .Route 03/16/24 08/29/24 Rx aerosol inhaler .COMPLEX #8.5 grams trazodone 100 mg tablet 100 mg PO QHS 08/04/24 08/29/24 History acetaminophen 500 mg capsule 1,000 mg (2 x 500 mg) PO Q6H PRN 08/05/24 08/29/24 Rx fever #100 caps polyethylene glycol 3350 17 17 g PO DAILY Prevent opioid 08/05/24 08/29/24 Rx gram/dose oral powder (Miralax) induced constipation #510 grams quetiapine 100 mg tablet 100 mg PO HS 08/06/24 08/29/24 History morphine 15 mg immediate release See Rx Instructions PO Q6H PRN 08/12/24 08/29/24 Rx tablet pain #60 tabs benzonatate 100 mg capsule 100 mg PO TID PRN PRN Cough #30 08/14/24 08/29/24 Rx caps bisacodyl 10 mg rectal suppository 10 mg [place] DAILY PRN #12 ea 08/14/24 08/29/24 Rx fentanyl 12 mcg/hr transdermal 1 patch transdermal Q72H #5 ea 08/29/24 08/29/24 Rx patch morphine 15 mg tablet,extended 15 mg PO Q12H 08/29/24 08/29/24 History release Exam Narrative Exam Narrative: 1.Const: Thin cachectic appearing male 2.Eyes: PERRL, no conjunctival injection, and symmetrical lids. 3.ENT: Atraumatic external nose and ears. Moist MM. Neck: Symmetric, trachea midline, No thyromegaly. 4.CVS: +S1/S2, Peripheral pulses 2+ and equal in all extremities. Brisk capillary refill in all extremities. 5.RESP: Rhonchorous breath sounds with exp wheezes and scattered crackles. 6.GI: Soft, Nontender/Nondistended, No hepatosplenomegaly. No guarding or rebound. Nephrostomy tubes present on the left. dressing in place, draining. 7.MSK: Normocephalic/Atraumatic, Extremities w/o deformity. No cyanosis or clubbing, Normal movement of all extremities 8.Skin: Warm, Dry. No rashes or lesions. 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 Sensation grossly intact, no focal neurologic deficits. 10.Psych: Alert, oriented x 3, pleasant, conversant. Results Labs 08/29/24 13:05 08/29/24 15:10 Labs: Laboratory Results - last 24 hr 08/29/24 08/29/24 13:05 15:10 WBC 14.70 H RBC 3.92 L Hgb 11.8 L Hct 36.4 L MCV 93 MCH 30.1 MCHC 32.4 RDW 15.8 H Plt Count 283 MPV 9.4 Immature Gran % 0.5 Neutrophils % 94.3 Lymphocytes % 1.7 Monocytes % 3.1 Eosinophils % 0.3 Basophils % 0.1 Nucleated RBC % 0.0 Absolute Neutrophils 13.86 H Absolute Lymphocytes 0.25 L Absolute Monocytes 0.46 Absolute Eosinophils 0.04 Absolute Basophils 0.01 VBG pH 7.38 VBG pCO2 60 H VBG pO2 29 VBG HCO3 35 H VBG Total CO2 33 H VBG O2 Saturation 51 VBG Base Excess 10 H VBG Lactate 1.6 H Sodium 139 138 Potassium 5.4 H 4.6 Chloride 100 101 Carbon Dioxide 35.1 H 33.2 H Anion Gap 3.9 3.8 BUN 42 H 40 H Creatinine 1.2 1.2 Est GFR (CKD-EPI 2020) 65.87 65.87 Glucose 103 137 H Calcium 9.5 9.3 Total Bilirubin 0.26 AST 25 ALT 28 Alkaline Phosphatase 81 Troponin I 55 58 NT-Pro-B Natriuret Pep 367 H Total Protein 6.7 Albumin 2.9 L Lipase 12 Procalcitonin 0.13 Ethyl Alcohol < 3.0 COVID-19 Source Nasopharynx SARS-CoV-2 (PCR) Negative Influenza Type A (PCR) Negative Influenza Type B (PCR) Negative RSV (PCR) Negative Last Vital Signs Temp 36.4 C L 08/29/24 12:36 Pulse 74 08/29/24 15:35 Resp 16 08/29/24 15:35 BP 145/67 H 08/29/24 15:35 Pulse Ox 98 08/29/24 15:35 Time Spent Time spent with Patient: 40-54 minutes Time was spent: preparing to see the patient(eg.review tests), obtaining and/or reviewing separately otained hiistory, ordering medications,tests, procedures, referring, communicating with other health animal care provider, indepentently interpreting results, counseling the patient and care coordination
--- NOTE | 2024-08-29 16:36 | W.PC.ACHO ---
Registration Status: Primary Language: Preferred Language: ED Information & Data Chief Complaint Chest Pain 08/29/24 13:07 Triage Note c/o chest pain and SOB for 08/29/24 12:36 unknown duration but greater than today. morphine given by HH ECHO TECH. crackles in RLL declined asprin accepted nitro by EMS BGL 170, uses 2 liters of oxygen at baseline 02 increased to 4 ECHO TECH Medical / Surgical History (Last Updated 08/12/24 @ 15:52 by Sharan Weinstein) Arthritis of right acromioclavicular joint (06/19/16) Hx of dizziness H/O: stroke Spine injury Anxiety with depression Bipolar 1 disorder Insomnia H/O onychomycosis Smoker Eczema Allergic rhinitis Alcohol abuse GERD (gastroesophageal reflux disease) Chronic pain HTN (hypertension) COPD (chronic obstructive pulmonary disease) Coronary artery disease HCAP (healthcare-associated pneumonia) (Last Updated 08/12/24 @ 15:53 by Sharan Weinstein) Nephrostomy status History of shoulder surgery (06/30/16) H/O cystoscopy H/O transurethral resection of bladder tumor (TURBT) History of coronary artery stent placement History of tonsillectomy Rotator Cuff Repair (06/30/16) Most Recent Vital Signs Temperature 36.4 C L 08/29/24 12:36 Pulse 74 08/29/24 15:35 Pulse 74 08/29/24 15:35 Respiratory Rate 16 08/29/24 15:35 Respiratory Effort Short of Breath, Pursed Lip 08/29/24 12:46 Respiratory Depth Retractive 08/29/24 12:46 Respiratory Pattern Tachypnea 08/29/24 12:46 Blood Pressure 145/67 H 08/29/24 15:35 Blood Pressure Mean 93 08/29/24 15:35 Blood Pressure Position Sitting 08/29/24 12:36 Pulse Oximetry 98 08/29/24 15:35 Oxygen Delivery Method Nasal Cannula 08/29/24 12:36 Oxygen Flow Rate 4 08/29/24 12:36 Pain Level 8 08/29/24 12:36 Allergies carbamazepine Allergy (Intermediate, Unverified 08/29/24 12:43) Hives acetaminophen (From Tylenol) Allergy (Verified 08/29/24 12:43) unknown simvastatin Allergy (Unverified 08/29/24 12:43) unknown Precautions Isolation Standard precaution 08/29/24 12:43 Active Medications Generic Name Dose Route Start Last Admin Trade Name Shira PRN Reason Stop Dose Admin Iohexol 100 ml 08/29/24 14:15 08/29/24 14:05 Omnipaque 350 Mg/Ml 100 Ml Btl IJ 09/28/24 23:59 85 ml DIRECTED COOPER Administration Sodium Chloride 50 ml 08/29/24 14:15 08/29/24 14:08 Normal Saline - Diluent 50 Ml Vial IJ 50 ml .FOR DI USE COOPER Administration IV IV Catheter Type [Right Upper Diffusics arm] IV Catheter Gauge [Right Upper 20 arm] Diagnostics 08/29/24 08/29/24 08/29/24 Range/Units 15:49 15:10 13:05 WBC 14.70 H (4.4-10.8) 10^3/uL RBC 3.92 L (4.36-5.78) 10^6/uL Hgb 11.8 L (13.5-17.5) g/dL Hct 36.4 L (40.0-50.0) % MCV 93 (80-95) fL MCH 30.1 (27.0-33.0) pg MCHC 32.4 (32.0-36.0) % RDW 15.8 H (11.8-14.1) % Plt Count 283 (130-400) 10^3/uL MPV 9.4 (8.0-11.0) fL Immature Gran % 0.5 % Neutrophils % 94.3 % Lymphocytes % 1.7 % Monocytes % 3.1 % Eosinophils % 0.3 % Basophils % 0.1 % Nucleated RBC % 0.0 (0.0-0.3) % Absolute Neutrophils 13.86 H (1.2-6.7) 10^3/uL Absolute Lymphocytes 0.25 L (1.2-3.4) 10^3/uL Absolute Monocytes 0.46 (0.1-0.8) 10^3/uL Absolute Eosinophils 0.04 (0.0-0.7) 10^3/uL Absolute Basophils 0.01 (0.0-0.2) 10^3/uL VBG pH 7.38 (7.31-7.41) VBG pCO2 60 H (41-51) mmHg VBG pO2 29 mmHg VBG HCO3 35 H (23-28) mmol/L VBG Total CO2 33 H (24-29) mmol/L VBG O2 Saturation 51 % VBG Base Excess 10 H (-2-3) mmol/L VBG Lactate 1.6 H (0.6-1.4) mmol/L Sodium 138 139 (136-145) mmol/L Potassium 4.6 5.4 H (3.5-5.1) mmol/L Chloride 101 100 (98-107) mmol/L Carbon Dioxide 33.2 H 35.1 H (21.0-32.0) mmol/L Anion Gap 3.8 3.9 (3-11) mmol/L BUN 40 H 42 H (7-18) mg/dL Creatinine 1.2 1.2 (0.70-1.30) mg/dL Est GFR (CKD-EPI 2020) 65.87 65.87 (mL/min/1.73m2) Glucose 137 H 103 (74-106) mg/dL Calcium 9.3 9.5 (8.5-10.1) mg/dL Total Bilirubin 0.26 (0.2-1.0) mg/dL AST 25 (15-37) U/L ALT 28 (16-63) U/L Alkaline Phosphatase 81 (46-116) U/L Troponin I Pending 58 55 (<or=76) ng/L NT-Pro-B Natriuret Pep 367 H (<300) pg/mL Total Protein 6.7 (6.4-8.2) g/dL Albumin 2.9 L (3.4-5.0) g/dL Lipase 12 (<78) U/L Procalcitonin 0.13 ng/mL Ethyl Alcohol < 3.0 (<10) mg/dL COVID-19 Source Nasopharynx SARS-CoV-2 (PCR) Negative (Negative) Influenza Type A (PCR) Negative (Negative) Influenza Type B (PCR) Negative (Negative) RSV (PCR) Negative (Negative) Intake and Output - 24 Hour Total 08/29/24 12:27 thru 08/29/24 12:36 Weight 46.3 kg Falls Risk Assessment History of Falls Previous History 08/29/24 12:48 Contributing Factors Confusion,Unstable, 08/29/24 12:48 Impairments Ambulatory Aids Uses ambulatory device 08/29/24 12:48 Tubes/Lines With any additional score 08/29/24 12:48 Gait Evaluation W/no contributing factors 08/29/24 12:48 Cognition No cognitive impairment 08/29/24 12:48 Fall Total Score 69 08/29/24 12:48 Level of Risk High Risk 08/29/24 12:48 Problems (Last Updated 08/12/24 @ 15:52 by Sharan Weinstein) Pneumonia (Acute) Exercise hypoxemia (Acute) COPD exacerbation (Acute) Acute hyperkalemia (Acute) v v v v v v v v v Sending and/or Receiving Nurses: Please use comment section below to note any information pertinent to the patient hand-off not included above. Information / Comments: Report received from: Ines given to Mitra BARCLAY at 1635, pt going to room 229
[2024-08-29 17:29] LABS: Troponin I 58 ng/L (<or=76)
[2024-08-29] MEDS: MORPHine IR 15 MG TAB 7.5 MG PO (18:15)
[2024-08-29] MEDS: Enoxaparin 40 MG/0.4 ML SYR SC (19:53)
[2024-08-29] MEDS: Sennosides/Docusate Sodium TAB 1 TAB PO (19:53)
[2024-08-29] MEDS: QUEtiapine 100 MG TAB PO (19:53)
[2024-08-29] MEDS: MORPHine CR 15 MG TABCR PO (19:53)
[2024-08-29] MEDS: Mirtazapine 15 MG TAB 7.5 MG PO (19:53)
[2024-08-29] MEDS: lamoTRIgine 100 MG TAB PO (19:53)
[2024-08-29] MEDS: Polyethylene Glycol 3350 17 GM PACKET PO (19:53)
[2024-08-30] VITALS (13 sets, daily range): BP systolic 128–139; BP diastolic 70–98; PULSE 64–90; RESP 2–27; TEMP 36.4–36.8; O2SAT 84–98
[2024-08-30] MEDS: Albuterol/Ipratropium 3 ML UPD VIAL UPD ×5 (00:07→23:58)
[2024-08-30] MEDS: MORPHine IR 15 MG TAB 7.5 MG PO ×2 (01:50→11:09)
[2024-08-30] MEDS: DOXYCYCLINE 100 MG in Normal Saline 100 ML IVPB ×2 (04:34→15:38)
[2024-08-30] MEDS: Acetaminophen 500 MG TAB 1000 MG PO ×2 (04:37→13:12)
[2024-08-30 06:54] LABS: Abs Immature Grans 0.05 10^3/uL (0.0-0.06); Absolute Basophil Count 0.01 10^3/uL (0.0-0.2); Absolute Eosinophil Count 0.01 10^3/uL (0.0-0.7); Absolute Monocyte Count 0.81 10^3/uL (0.1-0.8); Basophils % 0.1 %; Eosinophils % 0.1 %; HCT 34.5 % (40.0-50.0); HGB 11.5 g/dL (13.5-17.5); Immature Grans % 0.4 %; Lymphocytes % 4.3 %; MCH 30.3 pg (27.0-33.0); MCHC 33.3 % (32.0-36.0); MCV 91 fL (80-95); MPV 9.6 fL (8.0-11.0); Monocytes % 6.1 %; Platelet Count 239 10^3/uL (130-400); RDW 16.2 % (11.8-14.1); RDW-SD 53.7 fL; WBC 13.35 10^3/uL (4.4-10.8)
[2024-08-30 06:56] LABS: Absolute Lymphocyte Count 0.57 10^3/uL (1.2-3.4); Absolute Neutrophil Count 11.88 10^3/uL (1.2-6.7)
[2024-08-30 07:08] LABS: BUN 41 mg/dL (7-18); CREATININE 1.1 mg/dL (0.70-1.30); Calcium 9.3 mg/dL (8.5-10.1); Chloride 104 mmol/L (98-107); Estimated GFR 73.12 (mL/min/1.73m2); Glucose 145 mg/dL (74-106); Magnesium 1.8 mg/dL (1.8-2.4); Potassium 4.1 mmol/L (3.5-5.1); Sodium 139 mmol/L (136-145)
[2024-08-30] MEDS: Lisinopril 10 MG TAB PO (08:29)
[2024-08-30] MEDS: MORPHine CR 15 MG TABCR PO ×2 (08:30→16:01)
[2024-08-30] MEDS: Clopidogrel 75 MG TAB PO (08:30)
[2024-08-30] MEDS: predniSONE 40 MG, predniSONE 10 MG 50 MG PO (08:30)
[2024-08-30] MEDS: Sennosides/Docusate Sodium TAB 1 TAB PO ×2 (08:30→20:23)
[2024-08-30] MEDS: Omeprazole 20 MG CAPCR PO (08:30)
[2024-08-30] MEDS: Meloxicam 15 MG TAB PO (08:31)
[2024-08-30] MEDS: Escitalopram 20 MG TAB PO (08:31)
[2024-08-30] MEDS: Vitamins B Comp w/C TAB 1 TAB PO (08:31)
[2024-08-30] MEDS: lamoTRIgine 100 MG TAB PO ×2 (08:35→20:23)
--- NOTE | 2024-08-30 09:48 | PDOC.CMIN ---
Date of service: 08/30/24 Time of Service: 09:48 Care Management Initial Assmt Initial Assessment Reason for Hospitalization: Pneumonia, Chest Pain Functional Status/Living Situation Patient Presentation: Patient is unavailable to meet with CM X 2. CM will try again at a later time. Currently has home health services for RN, PT and [employer]. [facility] 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) Instrumental Activities of Daily Living (ADLs): Independent Medications Medication Management: No Issues/Barriers identified Physical Functioning/Mobility Assistive Device: Walker Advance Directives Advance Directives: Do you have an Advance Directive: N 12/22/20 11:45 AD On File at [facility]: N 12/22/20 11:45 Date Asked 08/29/24 08/29/24 12:42 AD Date Reviewed COLST On File at [facility] Yes 08/13/24 15:28 COLST Date Scanned 08/13/24 08/13/24 15:28 Code Status Resuscitation Status Full Code Portal Pt does not currently have a portal and education provided: Yes Insurance Coverage/Financial Issues Insurance: Medicare Medicaid Care Team Visit Care Team Role Provider Type LING LEBLANC NP Primary Care Provider NON-[facility] STAFF PHYSICIAN Magen Vences DO Emergency Provider [facility] STAFF PHYSICIAN Sharan Weinstein Admit Provider [facility] STAFF PHYSICIAN Attending Provider Discharge Potential Discharge Needs: PCP F/U Appt and Other (Chronic Disease: Follow up with Palliative and Community Care Team ) Anticipated Barriers to Discharge: Medical Status Patient/Family Education Needs: Review discharge instructions, discuss Ask Me Three Transportation: Private vehicle Plan: Anticipate that Jimenez will be discharged home with a resumption of home health services for RN, PT and [employer]. He will follow up with his community providers and transport via [facility] coordinated by [facility]. PFSH All Active Problems (Updated 08/29/24 @ 17:40 by NUZHAT BLANCO) Pneumonia (Acute) Exercise hypoxemia (Acute) COPD exacerbation (Acute) Acute hyperkalemia (Acute) Urothelial cancer (Acute) locally invasive 8.5 cm mass partially resected 07/29/2024 [facility] [place] [place]. Frye. L hydronephrosis (nephrostomy placed at time of surgery). Positive pelvic lymph nodes. Dr. Santamaria, palliative RT planned Liver mass (Acute) Compression fracture of T4 vertebra (Acute) Opioid-induced constipation (Acute) Pneumonia due to COVID-19 virus (Acute) Nephrostomy present (Acute) Pain (Acute) Multifactorial: From bladder tumor? From nephrostomy tube? Started on opiates July 2024 while at [facility]. [facility] palliative care team will manage Frailty syndrome in geriatric patient (Acute) Financial insecurity (Acute) Advanced care planning/counseling discussion (Acute) Palliative care encounter (Acute) Weight loss (Acute) Chronic fatigue (Acute) Pulmonary cachexia due to chronic obstructive pulmonary disease (Acute) Night sweats (Acute) Unintentional weight loss (Acute) MAKI (acute kidney injury) (Acute) Lumbar transverse process fracture (Acute) Fall (Acute) Pleural nodule (Acute) Ataxia (Acute) Dizziness (Acute) Gait abnormality (Acute) Rib fractures (Acute) Memory loss (Acute) Stroke (Chronic) Post concussion syndrome (Acute) Sacroiliac joint pain (Chronic) COPD (chronic obstructive pulmonary disease) (Acute) Medical History (Updated 08/29/24 @ 17:40 by NUZHAT BLANCO) Arthritis of right acromioclavicular joint (06/19/16) Hx of dizziness H/O: stroke Spine injury Anxiety with depression Bipolar 1 disorder Insomnia H/O onychomycosis Smoker Eczema Allergic rhinitis Alcohol abuse In remission GERD (gastroesophageal reflux disease) Chronic pain HTN (hypertension) COPD (chronic obstructive pulmonary disease) Coronary artery disease HCAP (healthcare-associated pneumonia) Surgical History (Updated 08/12/24 @ 15:53 by Sharan Weinstein) Nephrostomy status left, 07/30/24 History of shoulder surgery (06/30/16) H/O cystoscopy H/O transurethral resection of bladder tumor (TURBT) History of coronary artery stent placement History of tonsillectomy Rotator Cuff Repair (06/30/16) RIGHT Family History Other Heart disease Hypertension Social History (Updated 08/12/24 @ 15:54 by Sharan Weinstein) Smoking/Tobacco Use Status: Current every day Tobacco Type: cigarettes Smoking packs per day: 0.5 Smoking cigarettes per day: 10.0 Smoking risk assessment performed?: Yes Alcohol Intake: current Alcohol Intake frequency: a few times a month Alcohol type: beer Drug use: Occasionally Substance use type: marijuana Details: states drinks a 6 pack of beer over a 1 month time frame Household members: none Housing: house Number of Children: 1 current occupation: Disabled Pets and animals: No What type of physical activity do you participate in: walking Seatbelt use: sometimes Do you feel safe at home: Yes Do you feel safe in your relationship?: Yes Additional Social history: Lives with roommate in trailer outside of [facility] SDOH(Care Management) Screening Will the Patient Participate in the Screening?: Yes Do you worry about having a steady place to live?: no Problems where you live: no known problems In the past 12 months, have you had to go without electric, gas, oil or water in your home?: no Have you or anyone in your house had to go without enough food to eat?: no Has lack of transportation kept you from medical appointments or from doing things needed for daily living?: no Has anyone in your support network made you feel unsafe for any reason?: no Social Determinants of Health Comments([facility] Details): poor historian
--- NOTE | 2024-08-30 09:53 | PHA.REVIEW2 ---
Pharmacy Admission Review Admission Clinical Review Admission Pharmacy Review: Pneumonia (Acute) Exercise hypoxemia (Acute) COPD exacerbation (Acute) Acute hyperkalemia (Acute) Liver mass (Acute) Compression fracture of T4 vertebra (Acute) Opioid-induced constipation (Acute) Nephrostomy present (Acute) Pain (Acute) Advanced care planning/counseling discussion (Acute) COPD (chronic obstructive pulmonary disease) (Acute) carbamazepine Allergy (Intermediate, Unverified 08/29/24 12:43) Hives acetaminophen (From Tylenol) Allergy (Verified 08/29/24 12:43) unknown simvastatin Allergy (Unverified 08/29/24 12:43) unknown Resuscitation Status Full Code Height 6 ft Weight 42.9 kg Comments Comments/Follow Ups: Palliative care patient, chronic pain, bladder mass (Nephrostomy tube in place) with liver mets, [facility] patient COPD on home oxygen, on room air now w/Sats 98% Pharmacy Admission Review Renal Dosing Renal Dosing: BUN 41 mg/dL (7-18) H 08/30/24 06:30 Creatinine 1.1 mg/dL (0.70-1.30) 08/30/24 06:30 CrCl~39ml/min eGFR~73ml/min Medications needing adjustments: Reviewed (Monitor closely, Meloxicam use not recommended if eGFR<60, Lamotrigine use with caution if CrCl<30ml/min) Anticoagulation Anticoagulation: Hgb 11.5 g/dL (13.5-17.5) L 08/30/24 06:30 Hct 34.5 % (40.0-50.0) L 08/30/24 06:30 Plt Count 239 10^3/uL (130-400) 08/30/24 06:30 Creatinine 1.1 mg/dL (0.70-1.30) 08/30/24 06:30 DVT Prophylaxis: Reviewed Medications: Enoxaparin (Lovenox 40mg...monitor SCr, Platelets 239 dose okay) Opiate Usage Evaluate Pain Scale/Pains Meds: Reviewed (MSContin and MSIR-chronic pain, cancer and compression fractures, Pain 7/10) Scheduled Bowel Reg ordered if on Opiates?: Yes (Daily Miralax plus prn's) Relevant Labs Relevant Labs: Sodium 139 mmol/L (136-145) 08/30/24 06:30 Potassium 4.1 mmol/L (3.5-5.1) 08/30/24 06:30 Chloride 104 mmol/L (98-107) 08/30/24 06:30 Magnesium 1.8 mg/dL (1.8-2.4) 08/30/24 06:30 Magnesium Cancelled 08/30/24 06:30 Cardiac Review Cardiac Review: Troponin I 58 ng/L (<or=76) 08/29/24 16:34 NT-Pro-B Natriuret Pep 367 pg/mL (<300) H 08/29/24 13:05 BP, HR, EF%: Reviewed (BP 128/70, HR 60-70's, EF 50-55%) QTc Review QTc: Reviewed (QTC 548) List meds needing interventions: Potentially Mariel Andre- aware IV to PO Switch IV Medications: Reviewed (Rocephin/Doxy IV when appropriate) Home Meds Home Med List reviewed: Reviewed (Fentanyl patch on home med list was not filled, on hold or changed by provider) Relevent Home Meds Not ordered & why?: Lien CRAFT and RT aware, currently on Prednisone, Duonebs, Albuterol. Could order Symbicort if needed Current Meds Current Medication Order Review: Reviewed (c/o opiod induced constipation, increased Miralax and rec'd 1x dose Relistor) Pharmacy Antibiotic Review Relevant Labs: Relevant Labs 08/29/24 13:05 Procalcitonin 0.13 Pharmacy Antibiotic Activity: C/S review (no cultures drawn, Ceftriaxone & Doxy IV for RLL Pneumonia) Comments Comments/Follow Ups: Palliative care patient, chronic pain, bladder mass (Nephrostomy tube in place) with liver mets, [facility] patient COPD on home oxygen, on room air now w/Sats 98%
[2024-08-30] MEDS: Polyethylene Glycol 3350 17 GM PACKET PO ×2 (11:09→20:23)
--- NOTE | 2024-08-30 12:07 | PDOC.CMDIS ---
Date of service: 09/01/24 Time of Service: 11:39 LACE Index Scoring Tool Questions: Length of Stay (in days): 3 Was the patient admitted via the E.D.?: Yes Comorbidities: Chronic Pulmonary Disease and Metastatic Solid Tumor E.D. 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 He will follow up with his community providers and transport via [facility] coordinated by CM. Patient/Family Education Needs: Review of discharge instructions, limitations, follow up plan and discuss Ask Me Three Services Needed at Discharge: Home Health Care Services and Transportation SDOH Health Related Social Needs: Health related social needs material hardship(utilities)(Z59.87)
[2024-08-30] MEDS: Methylnaltrexone 12 MG/0.6 ML VIAL 8 MG SC (13:12)
[2024-08-30] MEDS: HYDROmorphone 1 MG/ML SYR IVP (14:29)
[2024-08-30] MEDS: Normal Saline Flush 10 ML SYR IVP ×3 (14:30→17:27)
--- NOTE | 2024-08-30 16:36 | PGE_ITS ---
Date of Service Date of service: 08/30/24 Time of Service: 16:36 Assessment and Plan Assessment and plan (1) Nephrostomy present: Status: Acute Assessment and plan: Placed 07/30 at due to obstructing bladder mass. Draining I&O (2) Bladder malignancy: Status: Inactive Assessment and plan: pending treatment at . (3) COPD (chronic obstructive pulmonary disease): Status: Acute Assessment and plan: Continue home meds On home O2; keep SPO2 > 88% (4) Pain: Status: Acute Assessment and plan: Chronic pain with worsening associated with bladder malignancy, T4 compression fracture. Seeing palliative. Morphine for pain is not working well - discussed fentanyl patch (Palliative has brought this up in the past month and he was not interested) today he is all for trying the fentanyl patch. He has been receiving 30 MME of extended release morphine and 22.5 MME of morphine IR - total 52.5 MMEdaily Fentanyl patch - 12 mcg= 30 MME, 25 mcg is 60 MME - will start with 12 mcg fentanyl patch, discontinue morphine ER 1215 am and Dose adjustments are typically increased by 25?50% (13-26 MME)of the current MME, but smaller increments may be safer in opioid-na?ve or frail patients. Changes should generally occur no more frequently than every 72 hours, as the fentanyl patch reaches steady-state levels over this period. Current max 65 MME Ensure there is a short-acting opioid available for breakthrough pain while adjusting the patch dosage. Continue Morphine IR, 7.5 mg every 4 hours PRN - Max total 60 MME, increased from 52.5 MME; Breakthrough doses should be approximately 10-15% of the total daily opioid dose . It has been more, will continue with initiation of fentanyl patch and adjust once pain is controlled. Assure patient has narcan at home on discharge. Watch for signs of opioid toxicity (e.g., sedation, respiratory depression). Patient is frail - adjust slowly (5) Coronary artery disease: Assessment and plan: Some pleuritic pain that is not c/w cardiac, negative troponins x 3 on admission Continue outpatient cardiac meds. (6) Compression fracture of T4 vertebra: Status: Acute Assessment and plan: Healing compression fx - morphine for pain Initiate fentanyl patch (7) Liver mass: Status: Acute Assessment and plan: On admission CT, need to assess for metastases. No present on CT earlier in this month at . MRI is best evaluation, but should be done at as they are able to given LRADs staging of liver lesions to better assess risk of malignancy. (8) Opioid-induced constipation: Status: Acute Assessment and plan: Continue scheduled PEG. Relastor given. No BM at time of writing. Dulcolax suppository (9) Advanced care planning/counseling discussion: Status: Acute Assessment and plan: Palliative patient. Pain management as above Was DNR, but clearly telling me today he wants full code. Prognosis for surviving resuscitation or intubation is not good, Community connections CHW also seeing patient to help with social barriers. (10) DVT prophylaxis: Status: Deleted Assessment and plan: LMWH, high risk with CA and recent COVID Exam Narrative Exam Narrative: 1.Const: Thin cachectic appearing male 2.Eyes: PERRL, no conjunctival injection, and symmetrical lids. 3.ENT: Atraumatic external nose and ears. Moist MM. Neck: Symmetric, trachea midline, No thyromegaly. 4.CVS: +S1/S2, Peripheral pulses 2+ and equal in all extremities. Brisk capillary refill in all extremities. 5.RESP: Rhonchorous breath sounds with exp wheezes and scattered crackles. 6.GI: Soft, Nontender/Nondistended, No hepatosplenomegaly. No guarding or rebou nd. Nephrostomy tubes present on the left. dressing in place, draining. 7.MSK: Normocephalic/Atraumatic, Extremities w/o deformity. No cyanosis or clubbing, Normal movement of all extremities 8.Skin: Warm, Dry. No rashes or lesions. 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 Sensation grossly intact, no focal neurologic deficits. 10.Psych: Alert, oriented x 3, pleasant, conversant. Objective Last Vital Signs Temp 36.4 C L 08/30/24 14:59 Pulse 80 08/30/24 14:59 Resp 16 08/30/24 14:59 BP 139/98 H 08/30/24 14:59 Pulse Ox 96 08/30/24 14:59 Laboratory Results - last 24 hr 08/29/24 08/30/24 08/30/24 16:34 06:30 06:30 WBC 13.35 H RBC 3.80 L Hgb 11.5 L Hct 34.5 L MCV 91 MCH 30.3 MCHC 33.3 RDW 16.2 H Plt Count 239 MPV 9.6 Immature Gran % 0.4 Neutrophils % 89.0 Lymphocytes % 4.3 Monocytes % 6.1 Eosinophils % 0.1 Basophils % 0.1 Nucleated RBC % 0.0 Absolute Neutrophils 11.88 H Absolute Lymphocytes 0.57 L Absolute Monocytes 0.81 H Absolute Eosinophils 0.01 Absolute Basophils 0.01 Sodium 139 Potassium 4.1 Chloride 104 Carbon Dioxide 30.0 Anion Gap 5.0 BUN 41 H Creatinine 1.1 Est GFR (CKD-EPI 2020) 73.12 Glucose 145 H Calcium 9.3 Magnesium 1.8 Cancelled Troponin I 58 Time Spent with Patient Time Spent with Patient: 25-34 minutes Time was spent: preparing to see the patient(eg.review tests), ordering medications,tests, procedures, referring, communicating with other health account executive healthcare, indepentently interpreting results, counseling the patient and care coordination
[2024-08-30] MEDS: cefTRIAXone 2 GM/50 ML BAG IVPB (17:00)
[2024-08-30] MEDS: fentaNYL 12 MCG PATCH TD (17:26)
[2024-08-30] MEDS: QUEtiapine 100 MG TAB PO (20:23)
[2024-08-30] MEDS: Atorvastatin 20 MG TAB PO (20:23)
[2024-08-30] MEDS: Mirtazapine 15 MG TAB 7.5 MG PO (20:23)
[2024-08-30] MEDS: Enoxaparin 40 MG/0.4 ML SYR SC (20:23)
[2024-08-31] VITALS (11 sets, daily range): BP systolic 121–162; BP diastolic 63–73; PULSE 73–88; RESP 2–20; TEMP 36.4–37; O2SAT 92–100
[2024-08-31] MEDS: MORPHine CR 15 MG TABCR PO ×2 (00:20→07:50)
[2024-08-31] MEDS: DOXYCYCLINE 100 MG in Normal Saline 100 ML IVPB ×2 (03:42→16:37)
[2024-08-31] MEDS: Albuterol/Ipratropium 3 ML UPD VIAL UPD ×3 (05:47→19:04)
[2024-08-31 06:30] LABS: Abs Immature Grans 0.06 10^3/uL (0.0-0.06); Absolute Basophil Count 0.01 10^3/uL (0.0-0.2); Absolute Lymphocyte Count 1.18 10^3/uL (1.2-3.4); Absolute Monocyte Count 0.77 10^3/uL (0.1-0.8); Basophils % 0.1 %; Eosinophils % 0.4 %; HGB 12.7 g/dL (13.5-17.5); Immature Grans % 0.4 %; Lymphocytes % 8.3 %; MCH 29.9 pg (27.0-33.0); MCHC 32.6 % (32.0-36.0); MCV 92 fL (80-95); MPV 9.7 fL (8.0-11.0); Monocytes % 5.4 %; Neutrophils % 85.4 %; Platelet Count 322 10^3/uL (130-400); RBC 4.25 10^6/uL (4.36-5.78); RDW 15.9 % (11.8-14.1); RDW-SD 53.4 fL; WBC 14.27 10^3/uL (4.4-10.8)
[2024-08-31 06:31] LABS: Absolute Eosinophil Count 0.06 10^3/uL (0.0-0.7); Absolute Neutrophil Count 12.19 10^3/uL (1.2-6.7)
[2024-08-31 06:49] LABS: ALT 35 U/L (16-63); AST 25 U/L (15-37); Albumin 2.9 g/dL (3.4-5.0); Alkaline Phosphatase 87 U/L (46-116); Anion Gap 3.6 mmol/L (3-11); BUN 30 mg/dL (7-18); Bilirubin, Total 0.24 mg/dL (0.2-1.0); C-Reactive Protein 0.87 mg/dL (<or=0.5); CO2 34.4 mmol/L (21.0-32.0); CREATININE 1.2 mg/dL (0.70-1.30); Calcium 9.6 mg/dL (8.5-10.1); Chloride 100 mmol/L (98-107); Estimated GFR 65.87 (mL/min/1.73m2); Glucose 102 mg/dL (74-106); Magnesium 1.6 mg/dL (1.8-2.4); Potassium 4.4 mmol/L (3.5-5.1); Sodium 138 mmol/L (136-145); Total Protein 7.1 g/dL (6.4-8.2)
[2024-08-31 07:03] LABS: Procalcitonin < 0.10 ng/mL
[2024-08-31] MEDS: Polyethylene Glycol 3350 17 GM PACKET PO ×2 (07:50→20:25)
[2024-08-31] MEDS: Omeprazole 20 MG CAPCR PO (07:50)
[2024-08-31] MEDS: Meloxicam 15 MG TAB PO (07:50)
[2024-08-31] MEDS: Sennosides/Docusate Sodium TAB 1 TAB PO ×2 (07:50→20:25)
[2024-08-31] MEDS: predniSONE 40 MG, predniSONE 10 MG 50 MG PO (07:50)
[2024-08-31] MEDS: lamoTRIgine 100 MG TAB PO ×2 (07:51→20:24)
[2024-08-31] MEDS: Lisinopril 10 MG TAB PO (07:51)
[2024-08-31] MEDS: Escitalopram 20 MG TAB PO (07:51)
[2024-08-31] MEDS: Clopidogrel 75 MG TAB PO (07:51)
[2024-08-31] MEDS: Vitamins B Comp w/C TAB 1 TAB PO (07:51)
[2024-08-31] MEDS: MORPHine IR 15 MG TAB 7.5 MG PO (10:59)
[2024-08-31] MEDS: MAGNESIUM SULFATE 2 GM/50 ML BAG IV_INF (12:01)
[2024-08-31] MEDS: Normal Saline Flush 10 ML SYR IVP ×5 (12:02→17:35)
--- NOTE | 2024-08-31 13:31 | PGE_ITS ---
Date of Service Date of service: 08/31/24 Time of Service: 13:31 Assessment and Plan Assessment and plan (1) Nephrostomy present: Status: Acute Assessment and plan: Placed 07/30 at due to obstructing bladder mass. Draining I&O (2) Bladder malignancy: Status: Chronic Assessment and plan: pending treatment at . (3) COPD (chronic obstructive pulmonary disease): Status: Chronic Assessment and plan: Continue home meds On home O2; keep SPO2 > 88% (4) Pain: Status: Acute Assessment and plan: Chronic pain with worsening associated with bladder malignancy, T4 compression fracture. Seeing palliative. Fentanyl patch 12 mcg Continue Morphine IR, 7.5 mg every 4 hours PRN - only one dose in past 20h Watch for signs of opioid toxicity (e.g., sedation, respiratory depression). Patient is frail - adjust slowly (5) Coronary artery disease: Assessment and plan: Some pleuritic pain that is not c/w cardiac, negative troponins x 3 on admission Continue outpatient cardiac meds. (6) Compression fracture of T4 vertebra: Status: Acute Assessment and plan: Healing compression fx - morphine for pain Patient reports feeling less pain after fentanyl patch was started (7) Liver mass: Status: Acute Assessment and plan: On admission CT, need to assess for metastases. Nt o present on CT earlier in this month at . MRI is best evaluation, but should be done at as they are able to given LRADs staging of liver lesions to better assess risk of malignancy. (8) Opioid-induced constipation: Status: Resolved Assessment and plan: Continue scheduled PEG. Relastor and dulcolax suppository yesterday - four moderate formed stools since then (9) Advanced care planning/counseling discussion: Status: Acute Assessment and plan: Palliative patient. Pain management as above Full code Community connections CHW also seeing patient to help with social barriers. (10) DVT prophylaxis: Status: Acute Assessment and plan: LMWH, high risk with CA and recent COVID Subjective Subjective Patient reports: no new complaints, pain is less, tolerating liquids well, tolerating a regular diet, bowel movement and afebrile; denies diarrhea, nausea or vomiting Interval history since last seen: States he is feeling better, has only had one prn IR morphine today. Appears more comfortable. Exam Narrative Exam Narrative: 1.Const: Thin cachectic appearing male 2.Eyes: PERRL, no conjunctival injection, and symmetrical lids. 3.ENT: Atraumatic external nose and ears. Moist MM. Neck: Symmetric, trachea midline, No thyromegaly. 4.CVS: +S1/S2, Peripheral pulses 2+ and equal in all extremities. Brisk capillary refill in all extremities. 5.RESP: Rhonchorous breath sounds with exp wheezes and scattered crackles. 6.GI: Soft, Nontender/Nondistended, No hepatosplenomegaly. No guarding or rebound. Nephrostomy tubes present on the left. dressing in place, draining. 7.MSK: Normocephalic/Atraumatic, Extremities w/o deformity. No cyanosis or clubbing, Normal movement of all extremities 8.Skin: Warm, Dry. No rashes or lesions. 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 Sensation grossly intact, no focal neurologic deficits. 10.Psych: Alert, oriented x 3, pleasant, conversant. Objective Last Vital Signs Temp 37 C 08/31/24 07:36 Pulse 86 08/31/24 11:21 Resp 18 08/31/24 11:21 BP 162/72 H 08/31/24 07:36 Pulse Ox 98 08/31/24 11:21 Laboratory Results - last 24 hr 08/31/24 06:10 WBC 14.27 H RBC 4.25 L Hgb 12.7 L Hct 39.0 L MCV 92 MCH 29.9 MCHC 32.6 RDW 15.9 H Plt Count 322 MPV 9.7 Immature Gran % 0.4 Neutrophils % 85.4 Lymphocytes % 8.3 Monocytes % 5.4 Eosinophils % 0.4 Basophils % 0.1 Nucleated RBC % 0.0 Absolute Neutrophils 12.19 H Absolute Lymphocytes 1.18 L Absolute Monocytes 0.77 Absolute Eosinophils 0.06 Absolute Basophils 0.01 Sodium 138 Potassium 4.4 Chloride 100 Carbon Dioxide 34.4 H Anion Gap 3.6 BUN 30 H Creatinine 1.2 Est GFR (CKD-EPI 2020) 65.87 Glucose 102 Calcium 9.6 Magnesium 1.6 L Total Bilirubin 0.24 AST 25 ALT 35 Alkaline Phosphatase 87 C-Reactive Protein 0.87 H Total Protein 7.1 Albumin 2.9 L Procalcitonin < 0.10 Time Spent with Patient Time Spent with Patient: 25-34 minutes Time was spent: preparing to see the patient(eg.review tests), ordering medications,tests, procedures, referring, communicating with other health youth care professional, indepentently interpreting results and counseling the patient
[2024-08-31] MEDS: cefTRIAXone 2 GM/50 ML BAG IVPB (15:56)
[2024-08-31] MEDS: QUEtiapine 100 MG TAB PO (20:24)
[2024-08-31] MEDS: Atorvastatin 20 MG TAB PO (20:25)
[2024-08-31] MEDS: Mirtazapine 15 MG TAB 7.5 MG PO (20:25)
[2024-08-31] MEDS: Enoxaparin 40 MG/0.4 ML SYR SC (20:25)
[2024-09-01] VITALS (14 sets, daily range): BP systolic 142–155; BP diastolic 64–78; PULSE 67–97; RESP 2–20; TEMP 37–37.7; O2SAT 94–100
[2024-09-01] MEDS: Albuterol/Ipratropium 3 ML UPD VIAL UPD ×5 (00:05→23:40)
[2024-09-01] MEDS: DOXYCYCLINE 100 MG in Normal Saline 100 ML IVPB ×2 (04:36→15:36)
[2024-09-01 06:41] LABS: Abs Immature Grans 0.09 10^3/uL (0.0-0.06); Absolute Basophil Count 0.01 10^3/uL (0.0-0.2); Absolute Neutrophil Count 11.91 10^3/uL (1.2-6.7); Basophils % 0.1 %; Eosinophils % 0.4 %; HCT 34.3 % (40.0-50.0); HGB 11.3 g/dL (13.5-17.5); Immature Grans % 0.7 %; Lymphocytes % 5.4 %; MCH 30.3 pg (27.0-33.0); MCHC 32.9 % (32.0-36.0); MCV 92 fL (80-95); MPV 9.3 fL (8.0-11.0); Neutrophils % 86.4 %; Platelet Count 274 10^3/uL (130-400); RBC 3.73 10^6/uL (4.36-5.78); RDW 16.1 % (11.8-14.1); RDW-SD 54.7 fL; WBC 13.78 10^3/uL (4.4-10.8)
[2024-09-01 06:42] LABS: Absolute Eosinophil Count 0.06 10^3/uL (0.0-0.7); Absolute Lymphocyte Count 0.74 10^3/uL (1.2-3.4); Absolute Monocyte Count 0.96 10^3/uL (0.1-0.8)
[2024-09-01 07:13] LABS: Anion Gap 7.1 mmol/L (3-11); BUN 26 mg/dL (7-18); CO2 32.9 mmol/L (21.0-32.0); Calcium 9.3 mg/dL (8.5-10.1); Chloride 98 mmol/L (98-107); Estimated GFR 81.98 (mL/min/1.73m2); Glucose 127 mg/dL (74-106); Magnesium 1.8 mg/dL (1.8-2.4); Potassium 4.6 mmol/L (3.5-5.1); Sodium 138 mmol/L (136-145)
[2024-09-01] MEDS: Fluticasone NASAL SPRAY 16 GM BTL NS (08:17)
[2024-09-01] MEDS: predniSONE 40 MG, predniSONE 10 MG 50 MG PO (08:18)
[2024-09-01] MEDS: Vitamins B Comp w/C TAB 1 TAB PO (08:18)
[2024-09-01] MEDS: lamoTRIgine 100 MG TAB PO ×2 (08:18→20:36)
[2024-09-01] MEDS: Polyethylene Glycol 3350 17 GM PACKET PO (08:18)
[2024-09-01] MEDS: Lisinopril 10 MG TAB PO (08:18)
[2024-09-01] MEDS: Omeprazole 20 MG CAPCR PO (08:18)
[2024-09-01] MEDS: Escitalopram 20 MG TAB PO (08:18)
[2024-09-01] MEDS: Meloxicam 15 MG TAB PO (08:18)
[2024-09-01] MEDS: Clopidogrel 75 MG TAB PO (08:18)
[2024-09-01] MEDS: Magnesium Chloride 64 MG TABCR PO (08:18)
[2024-09-01] MEDS: Sennosides/Docusate Sodium TAB 1 TAB PO ×2 (08:18→20:36)
[2024-09-01] MEDS: MORPHine IR 15 MG TAB 7.5 MG PO ×3 (08:19→20:37)
--- NOTE | 2024-09-01 10:36 | W.PM.PROGNOT ---
Date of Service Date of service: 09/01/24 Time of Service: 10:36 Assessment and Plan Assessment and plan (1) Pneumonia: Status: Acute Assessment and plan: No increased oxygen requirements Continue doxycycline and ceftriaxone day 3 of 5 (2) COPD (chronic obstructive pulmonary disease): Status: Chronic Assessment and plan: Continue home meds On home O2; keep SPO2 > 88% This continue prednisone currently at 50 mg daily will need slow taper at discharge. (3) Nephrostomy present: Status: Acute Assessment and plan: Placed 07/30 at due to obstructing bladder mass. Draining I&O (4) Bladder malignancy: Status: Chronic Assessment and plan: pending treatment at . (5) Pain: Status: Acute Assessment and plan: Chronic pain with worsening associated with bladder malignancy, T4 compression fracture. Seeing palliative. Fentanyl patch 12 mcg Continue Morphine IR, 7.5 mg every 4 hours PRN Watch for signs of opioid toxicity (e.g., sedation, respiratory depression). Patient is frail - adjust slowly (6) Coronary artery disease: Assessment and plan: Some pleuritic pain that is not c/w cardiac, negative troponins x 3 on admission Continue outpatient cardiac meds. (7) Compression fracture of T4 vertebra: Status: Acute Assessment and plan: Healing compression fx - morphine for pain Patient reports feeling less pain after fentanyl patch was started (8) Liver mass: Status: Acute Assessment and plan: On admission CT, need to assess for metastases. Nt o present on CT earlier in this month at . MRI is best evaluation, but should be done at as they are able to given LRADs staging of liver lesions to better assess risk of malignancy. (9) Opioid-induced constipation: Status: Resolved Assessment and plan: Continue scheduled PEG. Relastor and dulcolax suppository yesterday - four moderate formed stools since then (10) Advanced care planning/counseling discussion: Status: Acute Assessment and plan: Palliative patient. Pain management as above Full code Community connections CHW also seeing patient to help with social barriers. (11) DVT prophylaxis: Status: Acute Assessment and plan: LMWH, high risk with CA and recent COVID discussed with DR Sumner Subjective Subjective Interval history since last seen: Patient slowly improving exercise tolerance but still with shortness of breath. No oxygen requirements during the day. States he is eating and drinking and bowels are functioning well. Pain is better managed but still having pain. His left nephrostomy tube is draining well Exam Narrative Exam Narrative: Frail chronically ill-appearing thin male older than stated age in no acute distress. Head is atraumatic eyes nonicteric noninjected oral mucosas slightly dry neck full range of motion no JVD. Respirations slightly labored with a respiratory rate in the mid 20s. Lungs with Rales in the bases bilaterally right greater than left. No wheezing. Cardiovascular regular rate and rhythm his abdomen is flat soft nontender. Skin dry moves all extremities no peripheral edema. Neurologic awake alert oriented no focal deficits Objective Last Vital Signs Temp 37 C 09/01/24 08:55 Pulse 97 H 09/01/24 08:55 Resp 20 09/01/24 08:55 BP 142/78 H 09/01/24 08:55 Pulse Ox 95 09/01/24 08:55 Laboratory Results - last 24 hr 09/01/24 09/01/24 06:02 06:07 WBC 13.78 H RBC 3.73 L Hgb 11.3 L Hct 34.3 L MCV 92 MCH 30.3 MCHC 32.9 RDW 16.1 H Plt Count 274 MPV 9.3 Immature Gran % 0.7 Neutrophils % 86.4 Lymphocytes % 5.4 Monocytes % 7.0 Eosinophils % 0.4 Basophils % 0.1 Nucleated RBC % 0.0 Absolute Neutrophils 11.91 H Absolute Lymphocytes 0.74 L Absolute Monocytes 0.96 H Absolute Eosinophils 0.06 Absolute Basophils 0.01 Sodium 138 Potassium 4.6 Chloride 98 Carbon Dioxide 32.9 H Anion Gap 7.1 BUN 26 H Creatinine 1.0 Est GFR (CKD-EPI 2020) 81.98 Glucose 127 H Calcium 9.3 Magnesium 1.8 Time Spent with Patient Time Spent with Patient: 35-49 minutes Time was spent: preparing to see the patient(eg.review tests), obtaining and/or reviewing separately otained hiistory, ordering medications,tests, procedures, indepentently interpreting results and counseling the patient
--- NOTE | 2024-09-01 14:32 | CMPROGNOTE_ITS ---
Date of service: 09/01/24 Time of Service: 14:32 Care Management Progress Note Progress Note Text Progress Note Text: Jimenez was awake and sitting up in bed when CM met with him. He is being treated with IV ABX for pneumonia and pain management for worsening chronic pain. He had 2 prior admission in the ICU for pneumonia last month, so he's being very cautious in terms of discharge readiness, and feels he needs at least 1 more night. Discharge Potential Discharge Needs: PCP F/U Appt Anticipated Barriers to Discharge: Medical Status Patient/Family Education Needs: Review discharge instructions, discuss Ask Me Three Transportation: RCT Plan: Jimneez continues to be monitored and treated with IV ABX. 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 He will follow up with his community providers and transport via [facility] coordinated by [facility]. SDOH(Care Management) Screening Will the Patient Participate in the Screening?: Yes Do you worry about having a steady place to live?: no Problems where you live: no known problems In the past 12 months, have you had to go without electric, gas, oil or water in your home?: no Have you or anyone in your house had to go without enough food to eat?: no Has lack of transportation kept you from medical appointments or from doing things needed for daily living?: no Has anyone in your support network made you feel unsafe for any reason?: no Social Determinants of Health Comments(SDOH Details): poor historian
[2024-09-01] MEDS: Normal Saline Flush 10 ML SYR IVP ×2 (15:36→16:35)
[2024-09-01] MEDS: cefTRIAXone 2 GM/50 ML BAG IVPB (16:34)
[2024-09-01] MEDS: Enoxaparin 40 MG/0.4 ML SYR SC (20:35)
[2024-09-01] MEDS: Atorvastatin 20 MG TAB PO (20:37)
[2024-09-01] MEDS: Mirtazapine 15 MG TAB 7.5 MG PO (20:38)
[2024-09-01] MEDS: QUEtiapine 100 MG TAB PO (20:38)
[2024-09-02] VITALS (13 sets, daily range): BP systolic 134–154; BP diastolic 67–80; PULSE 74–93; RESP 9–19; TEMP 37–37.7; O2SAT 93–100
[2024-09-02] MEDS: DOXYCYCLINE 100 MG in Normal Saline 100 ML IVPB ×2 (03:34→16:38)
[2024-09-02] MEDS: Albuterol/Ipratropium 3 ML UPD VIAL UPD ×4 (05:20→23:44)
[2024-09-02] MEDS: MORPHine IR 15 MG TAB 7.5 MG PO ×3 (06:05→19:36)
[2024-09-02] MEDS: Polyethylene Glycol 3350 17 GM PACKET PO (08:21)
[2024-09-02] MEDS: Sennosides/Docusate Sodium TAB 1 TAB PO ×2 (08:22→20:08)
[2024-09-02] MEDS: Meloxicam 15 MG TAB PO (08:22)
[2024-09-02] MEDS: Magnesium Chloride 64 MG TABCR PO (08:22)
[2024-09-02] MEDS: Lisinopril 10 MG TAB PO (08:22)
[2024-09-02] MEDS: Escitalopram 20 MG TAB PO (08:22)
[2024-09-02] MEDS: predniSONE 40 MG, predniSONE 10 MG 50 MG PO (08:22)
[2024-09-02] MEDS: Omeprazole 20 MG CAPCR PO (08:23)
[2024-09-02] MEDS: lamoTRIgine 100 MG TAB PO ×2 (08:23→19:24)
[2024-09-02] MEDS: Clopidogrel 75 MG TAB PO (08:23)
[2024-09-02] MEDS: Vitamins B Comp w/C TAB 1 TAB PO (08:23)
[2024-09-02] MEDS: Normal Saline Flush 10 ML SYR IVP ×2 (08:26→17:49)
--- NOTE | 2024-09-02 08:55 | PT.INIE ---
PT Notes Visit Reasons: Pneumonia,Acute on Chronic Hypoxic Resp Failure, C Physical Therapy Inpatient Initial Evaluation Date: 09/02/2024 Referring Doctor: Sherita Garcia NP PT Orders: PT CONSULT: Eval/Treat Precautions: Fall. Standard. Activity as tolerated. Patient Profile/Admitting Diagnosis: Jimenez is a 67-year-old male with nephrostomy tube and on 2L of oxygen at baseline who presented to the ED on 08/29/2024 due to left-sided chest and mid abdominal pain. He is admitted for management of PNA, bladder malignancy, COPD, pain from T4 compressin fracture, CAD, and liver malignancy. PMHX: All Active Problems (Updated 08/29/24 @ 17:40 by NUZHAT BLANCO) Pneumonia (Acute) Exercise hypoxemia (Acute) COPD exacerbation (Acute) Acute hyperkalemia (Acute) Urothelial cancer (Acute) locally invasive 8.5 cm mass partially resected 07/29/2024 [facility] Dr. Frye. L hydronephrosis (nephrostomy placed at time of surgery). Positive pelvic lymph nodes. Dr. Santamaria, palliative RT planned Liver mass (Acute) Compression fracture of T4 vertebra (Acute) Opioid-induced constipation (Acute) Pneumonia due to COVID-19 virus (Acute) Nephrostomy present (Acute) Pain (Acute) Multifactorial: From bladder tumor? From nephrostomy tube? Started on opiates July 2024 while at [facility]. [facility] palliative care team will manage Frailty syndrome in geriatric patient (Acute) Financial insecurity (Acute) Advanced care planning/counseling discussion (Acute) Palliative care encounter (Acute) Weight loss (Acute) Chronic fatigue (Acute) Pulmonary cachexia due to chronic obstructive pulmonary disease (Acute) Night sweats (Acute) Unintentional weight loss (Acute) MAKI (acute kidney injury) (Acute) Lumbar transverse process fracture (Acute) Fall (Acute) Pleural nodule (Acute) Ataxia (Acute) Dizziness (Acute) Gait abnormality (Acute) Rib fractures (Acute) Memory loss (Acute) Stroke (Chronic) Post concussion syndrome (Acute) Sacroiliac joint pain (Chronic) COPD (chronic obstructive pulmonary disease) (Acute) Medical History (Updated 08/29/24 @ 17:40 by NUZHAT BLANCO) Arthritis of right acromioclavicular joint (06/19/16) Hx of dizziness H/O: stroke Spine injury Anxiety with depression Bipolar 1 disorder Insomnia H/O onychomycosis Smoker Eczema Allergic rhinitis Alcohol abuse In remission GERD (gastroesophageal reflux disease) Chronic pain HTN (hypertension) COPD (chronic obstructive pulmonary disease) Coronary artery disease HCAP (healthcare-associated pneumonia) Surgical History (Updated 08/12/24 @ 15:53 by Sharan Weinstein) Nephrostomy status left, 07/30/24 History of shoulder surgery (06/30/16) H/O cystoscopy H/O transurethral resection of bladder tumor (TURBT) History of coronary artery stent placement History of tonsillectomy Rotator Cuff Repair (06/30/16) RIGHT Social History/Home Situation: Jimenez lives in a trailer with 2 other roommates. Has 4 steps to enter with rails on B sides. Has been on disability. Sometimes uses a cane if he feels like he needs it. Equipment Owned/DME: [facility] Subjective: Continues to report pain of less intensity in the L side of chest and mid abdominal area. Denied headache and lightheadedness throughout session. Agreeable to PT consult. Objective: General Observation: resting on chair. Telemetry monitoring in place. IV access in R UE. Cachexic. Mental Status: Alert and oriented as to date, time, and place. Pain: 6-7/10 ROM: Right Upper Extremity: Shoulder Flexion WFL. Shoulder abduction WFL. Elbow flexion WFL. Wrist flexion WFL. Functional opening and closing of hand WFL. Left Upper Extremity: Shoulder Flexion WFL. Shoulder abduction WFL. Elbow flexion WFL. Wrist flexion WFL. Functional opening and closing of hand WFL. Right Lower Extremity: Hip flexion WFL. Hip abduction WFL. Knee flexion WFL. Ankle dorsiflexion WFL. Ankle plantarflexion WFL. Left Lower Extremity: Hip flexion WFL. Hip abduction WFL. Knee flexion WFL. Ankle dorsiflexion WFL. Ankle plantarflexion WFL. Strength: Right Upper Extremity: Shoulder flexors 4-/5. Shoulder abductors 4-/5. Elbow flexors 4-/5. Elbow extensors 4-/5. [employer] strong. Left Upper Extremity: Shoulder flexors 4-/5. Shoulder abductors 4-/5. Elbow flexors 4-/5. Elbow extensors 4-/5. [employer] strong. Right Lower Extremity: Hip flexors 4-/5. Hip abductors 4-/5. Knee flexors 4-/5. Knee extensors 4-/5. Ankle dorsiflexors 4-/5. Ankle plantarflexors 4-/5. Left Lower Extremity: Hip flexors 4-/5. Hip abductors 4-/5. Knee flexors 4-/5. Knee extensors 4-/5. Ankle dorsiflexors 4-/5. Ankle plantarflexors 4-/5. Sensation: Intact as to pain and light pressure in B LE Bed Mobility/Transfers: Minimal cueing provided for use of B hands as needed for support, movement sequence, AD management, and posture to reduce fall risk and minimize pain report Supine to sit contact guard assist Sit to stand contact guard assist Stand to sit contact guard assist Bed to chair contact guard assist Gait: Able to tolerate level surface ambulation of up to 150 feet using front wheeled walker with stand by assist. Sandy decreased. Step height and length decreased. No loss of balance. No AD. Mild shortness of breath. SaO2 high of 96% and lowest of 85% towards the edn with quick recovery (less than 1 minute) back up to 94% during on 1 L/minute. Balance: Static Sitting: Normal Dynamic Sitting: Normal Static Standing: Fair Dynamic Standing: Fair Special Tests: Mobility Limitations Standardized Measure [facility] 6 clicks Basic Mobility Inpatient Short Form: Raw Score: 18 CMS Score: 47% deficit 4-Stage Balance Test: Feet together 10 seconds Semitandem <10 seconds Full tandem <10 seconds One-legged stance<10 seconds Informed Consent/Education: Patient was instructed in purpose of PT consult and plan of care. Agreeable to proceed with established PT POC to achieve personal goals. Assessment: Patient presents with clinical signs and symptoms consistent with current/admitting diagnoses that have resulted to mobility limitations, gait instability, generalized weakness, and overall ADL decline as demonstrated by the following impairment level findings: 1. Decreased strength to B UE/LE major muscle groups 2. Impaired sitting/standing balance 3. Impaired activity tolerance Impairments are contributing to the following functional limitations: 1. Increased completion time for mobility ADL performance 2. Increased risk for falls 3. Difficulty with managing steps alone safely 4. [facility] deficit score of 47% Patient is assessed as a 52062 moderate complexity based on the following: History: 67-year-old male with past medical history as indicated above Examination: Demonstrable impairment in strength, balance, and mobility level with underlying impairments and functional limitations as exhibited above Presentation: Evolving Decision Makin moderate complexity Goals: Goals X1 week 1. Chair-Bed independent with no AD 2. Independent gait on level surface with use of no AD for at least 75 feet without report of pain nor dyspnea 3. Independent stair negotiation while holding onto B rails rails for at least 5 steps without report of pain nor dyspnea 4. Independent with home exercise program 5. Good static and dynamic standing balance/tolerance Plan of Care/Treatment Plan: 1x/day, 7 days/week x 1 week. Plan of care has been reviewed with the MANAGER STUDIO providing the service under Physical Therapy direction. Initiate Physical Therapy intervention for pain management as needed, strengthening, bed mobility, transfers, gait, stairs, balance training, and use of assistive device. DISCHARGE RECOMMENDATIONS: [] Home with no services [] [X] Home with services. Patient will benefit from home health PT services in order to progress mobility level using least restrictive assistive ambulatory device, assess home safety, identify additional equipment needs, and establish a functional maintenance program that will increase ability of patient to remain at home. [] Home with outpatient PT [] [] SNF for continued rehabilitation [] [] [facility] [] [] SNF versus LTC based on ability to participate and progress [] [] Patient will also benefit from the use of a shower chair to minimize shortness of breath and facilitate independence in self care performance while decreasing risk for falls. TREATMENT CODE/TIME: 89098 x 20 minutes for 1 unit, 06756 x 19 minutes for 1 unit (08:55-09:34). Thank you for the opportunity to participate in the care of this patient. Joana Haider PT, DPT, CLT [facility] [place], [place]
--- NOTE | 2024-09-02 09:45 | PGE_ITS ---
Date of Service Date of service: 09/02/24 Time of Service: 09:45 Assessment and Plan Assessment and plan (1) Pneumonia: Status: Acute Assessment and plan: On room air Continue doxycycline and ceftriaxone day 4 of 5 (2) COPD (chronic obstructive pulmonary disease): Status: Chronic Assessment and plan: On home medicine regimen On home O2 at baseline; keep SPO2 > 88% On prednisone currently at 50 mg daily Slow taper at discharge. (3) Nephrostomy present: Status: Acute Assessment and plan: Placed 07/30 at [facility]; patent continue to monitor I&O (4) Bladder malignancy: Status: Chronic Assessment and plan: Palliative radiation treatment at [facility] to be started. (5) Pain: Status: Acute Assessment and plan: Chronic pain with worsening associated with bladder malignancy, T4 compression fracture. Seeing palliative. Fentanyl patch 12 mcg ongoing but patient has a small subcutaneous body fat scheduled APAP now Ongoing meloxicam scheduled from home On Morphine IR, 7.5 mg every 4 hours PRN now was still in pain at 7.5 mg Q6 PRN Monitor for signs of opioid toxicity (e.g., sedation, respiratory depression). (6) Coronary artery disease: Assessment and plan: Negative troponins x 3 on admission , pleuritic pain at time Ongoing outpatient cardiac meds. (7) Compression fracture of T4 vertebra: Status: Acute Assessment and plan: Healing compression fx -continue morphine for pain adjust PRN Now on Fentanyl patch (8) Liver mass: Status: Acute Assessment and plan: On admission CT, need to assess for metastases. Nt o present on CT earlier in this month at . MRI is best evaluation, but should be done at as they are able to given LRADs staging of liver lesions to better assess risk of malignancy. (9) Opioid-induced constipation: Status: Resolved Assessment and plan: Continue scheduled PEG. Received relastor and dulcolax suppository prior in the stay with good effectiveness Now Colace PO BID scheduled (10) Advanced care planning/counseling discussion: Status: Acute Assessment and plan: Palliative patient. Pain management as above Full code Community connections CHW also seeing patient to help with social barriers. (11) DVT prophylaxis: Status: Acute Assessment and plan: Continue Lovenox high risk with CA and recent COVID (12) Discharge planning issues: Status: Acute Assessment and plan: Discharge home with HH resumption when medically stable Discussed with Dr. Sumner Subjective Subjective Patient reports: no new complaints, feels better, tolerating liquids well, tolerating a regular diet, flatus, bowel movement and fever; denies nausea, vomiting or shortness of breath Exam Narrative Exam Narrative: Frail chronically ill-appearing, cachectic appearing older than stated age without acute distress. Neurologic awake alert oriented no focal deficits Head is atraumatic .Oral mucosas slightly dry neck full range of motion no JVD. Respirations are nonlabored with clear breath sounds with diminished right base and mid lobes. Cardiovascular regular rate and rhythm, he said lying Abdomen is flat soft nontender, bowel sounds are present. Skin is dry Moves all extremities no peripheral edema. Objective Last Vital Signs Temp 37 C 09/02/24 07:36 Pulse 84 09/02/24 07:36 Resp 18 09/02/24 07:36 BP 154/80 H 09/02/24 07:36 Pulse Ox 97 09/02/24 07:36 Time Spent with Patient Time Spent with Patient: >50 minutes Time was spent: preparing to see the patient(eg.review tests), obtaining and/or reviewing separately otained hiistory, ordering medications,tests, procedures, referring, communicating with other health pharmacy customer care specialist, indepentently interpreting results, counseling the patient and care coordination
--- NOTE | 2024-09-02 10:06 | PDOC.CMPRO ---
Date of service: 09/02/24 Time of Service: 10:06 Care Management Progress Note Progress Note Text Progress Note Text: Jimenez was sitting up in a chair when CM met with him. He was pleasant and engaged well with CM, known to him from previous hospital stays. Jimenez appeared much thinner than he did recently and was very pale. Jimenez shared that he has been given a diagnosis of bladder cancer and has met with Oncology to review options. He is not clear what the exact plan will be but stated that both chemotherapy and radiation therapy were discussed but have not been initiated. Jimenez admitted to being uncertain about his future and has some anxiety about what the course of treatment will entail. When asked, he did state that his roommate has been very supportive and has taken over the bulk of the animal park code enforcement officer as Jimenez's breathing prevents him from doing much. Jimenez shared that his biggest challenge has been pain control. He now has a Fentanyl patch and has morphine available PRN. He did say that the Fentanyl patch has helped some. Discharge Potential Discharge Needs: PCP F/U Appt Anticipated Barriers to Discharge: None Identified Patient/Family Education Needs: Review discharge instructions, discuss Ask Me Three Transportation: Private vehicle Plan: Jimenez will be discharged home with a resumption of home health services for RN, PT and [facility], when he is medically ready. He will follow up with his community providers and transport via RCT coordinated by CM. CM will follow and continue to support discharge needs. SDOH(Care Management) Screening Will the Patient Participate in the Screening?: Yes Do you worry about having a steady place to live?: no Problems where you live: no known problems In the past 12 months, have you had to go without electric, gas, oil or water in your home?: no Have you or anyone in your house had to go without enough food to eat?: no Has lack of transportation kept you from medical appointments or from doing things needed for daily living?: no Has anyone in your support network made you feel unsafe for any reason?: no Social Determinants of Health Comments(SDOH Details): poor historian
[2024-09-02] MEDS: Fluticasone NASAL SPRAY 16 GM BTL NS (12:40)
--- NOTE | 2024-09-02 13:08 | SP_ITS ---
Date of service: 09/02/24 Time of Service: 13:08 Subjective Clinical (Bedside) Swallow Evaluation - Inpatient Speech Language Pathology Referred by: Bailey Vo Start time: 12:30 End time: 13:00 Total patient contact: 25 min Referral Type: Routine Swallow Consult Precautions: Standard, Fall, Full Code Reason for Referral/HPI: Patient is a 67 y/o M with nephrostomy tube, T4 compression fracture, GERD, admitted for management of PNA, COPD, CAD, pain management, bladder malignancy and liver malignancy. He was reportedly observed with difficulty swallowing pills and food earlier this date and SPECIAL DELIVERY CARRIER was consulted. SPECIAL DELIVERY CARRIER IMPRESSIONS & RECOMMENDATIONS: Patient presents with likely mild oral- pharyngeal dysphagia with suspected pharyngeal vs esophageal stasis vs GERD- related sensory changes, as well as mild s/sx aspiration with thin liquids. Given R LL pna, baseline COPD, GERD, and complex medical situation, patient is at heightened risk of aspiration/complications. He does appear with impulsive feeding behaviors, fast rate, and risk is likely to be mitigated with aspiration precautions for slow rate, small bolus size, and improved oral care. Education given. If significant concern for aspiration remains with precautions in place, may consider MBSS later this week or on outpatient basis to determine aspiration risk more objectively. FURTHER INPATIENT SPECIAL DELIVERY CARRIER SERVICES: Patient to be followed while on unit DISCHARGE RECOMMENDATIONS: Consider: Place outpatient MBSS orders pending progress/goals of care. Diet Recommendations: ? SOLIDS: 6-Soft & Bite-Sized Solids - extra sauce/gravy LIQUIDS: 0-Thin Liquids MEDICATIONS: Whole With 4-Purees Alter medications only as advised by MD or Pharmacist RISK MANAGEMENT: Level of Assistance/Supervision: Intermittent supervision for all PO intake - cues for safety precautions as below Positioning and environment: PO intake only when awake/alert? Reduce auditory and/or visual distractions when eating [facility] upright for all PO intake. Oral hygiene BID/2x per day Using friction with toothbrush on all oral structures as tolerated Strategies/Adaptations/Assistive Equipment: Small sips Small bites Slow rate of intake Reflux Precautions: Small+frequent meals throughout day Maintain fully upright position at least 30 minutes after meals Avoid meals/snacks 2-3 hours prior to reclining/sleeping Sleep with head of bed elevated to reduce likelihood of nocturnal reflux Education Provided to: Patient Topics Addressed: anatomy/physiology of swallowing mechanism definition and impacts of aspiration impact of current diagnoses on swallow function role of SPECIAL DELIVERY CARRIER in management of swallow disorders overt s/sx to monitor for re: potential aspiration of food / liquids relationship between reflux, GERD and swallow fxn relationship between respiratory function and deglutition rationale and instruction for additional risk management strategies as below SUBJECTIVE: Patient received: alert/awake. Agreeable to evaluation. Baseline Swallow Function: Patient reports baseline sensation of pharyngeal residue with solids which sometimes triggers coughing attacks while eating/drinking. He reports history of reflux, took meds for this but stopped taking them when symptoms improved. Reports he is former s moker, stopped smoking 5 months ago. Reports tolerating a soft solids diet at baseline due to edentulousness. Also endorses non-prandial globus sensation. OBJECTIVE Patient positioning: Up to chair/90 degrees Respiratory status: Room air, Tolerates well without s/sx dyspnea, no baseline cough observed. Orientation/Mental status: Oriented to self, Oriented to situation, Oriented to location. able to follow instructions without need for clarification/repetition. 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 Speech: WFL Oral Mechanism Examination: Dentition: Edentulous without dentures Oral mucosa: WFL ? Cranial Nerve Assessment: CN V ? Trigeminal Facial Sensation WNL Jaw Strength/ROM WNL ?WNL CN VII- Facial WNL labial ROM, strength, coordination. WNL lingual sensation WNL CN IX ? Glossopharyngeal WNL palatal elevation with phonation. No evidence of nasal emissions WNL CN X ? Vagus WNL Vocal quality and volume. Strong/sharp volitional cough WNL CX XII ? Hypoglossal WNL lingual ROM, strength, coordination WNL PO Intake: Trials Assessed: IDDSI 0 Thin Liquids IDDSI 4 Puree Solid IDDSI 6 Soft & Bite Size Solid Oral Phase Findings: WFL Pharyngeal Phase Findings: Cough after swallow with thin liquids Eliminated with small/single sips ? [place] Swallow Protocol Results: FAIL ? Unable to complete without stopping/starting S/sx aspiration observed PLAN: Frequency: 2-3x/week for 1-2 weeks Goals: Senior Living Goals: Patient will tolerate safest/least restrictive diet without overt s/sx aspiration, with aspiration precautions in place. Short Term Goals: Patient will tolerate L6 soft/bite sized Diet and Thin liquids without overt s/s aspiration across 2/2 visits. SPECIAL DELIVERY CARRIER CPT Code: 13165 Clinical Swallowing Evaluation
--- NOTE | 2024-09-02 13:42 | W.NUTRFU ---
Date of service: 09/02/24 Time of Service: 13:42 Nutrition Note NOTE: PT weight stable since last note 08/08. Taking oral nutrition supplements as tolerated TID with a variety of items offered - Boost, CIB frappes, whey protein smoothies. Po intake good at meals but continues to struggle with volume needed to meet needs for protein and kcals for rebound weight gain. Suggest liquid protein concentrate TID as nursing order. Will continue to offer high kcal meals, ONS TID. Would recommend Vitamin D lab or initiating vitamin D supplementation due to hx of deficiency and not taking at home. Will monitor weight and intake and continue to educate pt on ways to meet his nutrition needs Time Spent in Nutritional Counseling and Treatment: 0
[2024-09-02] MEDS: Acetaminophen 500 MG TAB 1000 MG PO ×2 (13:57→23:11)
--- NOTE | 2024-09-02 14:48 | PT.INTREAT ---
PT Notes Visit Reasons: Pneumonia,Acute on Chronic Hypoxic Resp Failure, C Physical Therapy Inpatient Treatment Note Date: 09/02/2024 Precautions: Fall. Standard. Activity as tolerated. Subjective: Agreeable to session. Pain report of about 6-7/10 in chest at end of walk. Objective: General Observation: resting on chair. Telemetry monitoring in place. IV access in R UE. Cachexic. Mental Status: Alert and oriented as to date, time, and place. Pain: 6-7/10 Bed Mobility/Transfers: Minimal cueing provided for use of B hands as needed for support, movement sequence, AD management, and posture to reduce fall risk and minimize pain report Supine to sit contact guard assist Sit to stand contact guard assist Stand to sit contact guard assist Bed to chair contact guard assist Gait: Able to tolerate level surface ambulation of up to 200 feet using front wheeled walker with stand by assist. Sandy decreased. Step height and length decreased. No loss of balance. No AD. Mild shortness of breath. SaO2 high of 98% and lowest of 81% towards the end with quick recovery (less than 1 minute) back up to 97% during on 1 L/minute. Balance: Static Sitting: Normal Dynamic Sitting: Normal Static Standing: Fair Dynamic Standing: Fair THERA EX: Seated marches x 30 Assessment: Short of breath and desaturation down to 81% towards the end of walking using finger oximeter but with quick recovery toabove 90 in less than a minute. Patient presents with clinical signs and symptoms consistent with current/admitting diagnoses that have resulted to mobility limitations, gait instability, generalized weakness, and overall ADL decline as demonstrated by the following impairment level findings: 1. Decreased strength to B UE/LE major muscle groups 2. Impaired sitting/standing balance 3. Impaired activity tolerance Impairments are contributing to the following functional limitations: 1. Increased completion time for mobility ADL performance 2. Increased risk for falls 3. Difficulty with managing steps alone safely 4. [facility] deficit score of 47% Plan of Care/Treatment Plan: 1x/day, 7 days/week x 1 week. Plan of care has been reviewed with the DITTO MACHINE OPERATOR providing the service under Physical Therapy direction. Initiate Physical Therapy intervention for pain management as needed, strengthening, bed mobility, transfers, gait, stairs, balance training, and use of assistive device. DISCHARGE RECOMMENDATIONS: [] Home with no services [] [X] Home with services. Patient will benefit from home health PT services in order to progress mobility level using least restrictive assistive ambulatory device, assess home safety, identify additional equipment needs, and establish a functional maintenance program that will increase ability of patient to remain at home. [] Home with outpatient PT [] [] SNF for continued rehabilitation [] [] [facility] [] [] SNF versus LTC based on ability to participate and progress [] [X] Patient will also benefit from the use of a shower chair to minimize shortness of breath and facilitate independence in self care performance while decreasing risk for falls. TREATMENT CODE/TIME: 04878 x 20 minutes for 1 unit and 78803 x 12 minutes for 1 unit (14:48-15:20).
--- NOTE | 2024-09-02 15:01 | CHAPLAIN ---
Jimenez was sitting up in the chair when I visited. We remembered each other from previous admissions. Jimenez doesn't have any family, but has a roommate that keeps in touch with him while he's here. I reminded Jimenez that amy is available 09/04 if he'd like company at any time. I will continue to visit.
[2024-09-02] MEDS: cefTRIAXone 2 GM/50 ML BAG IVPB (16:00)
[2024-09-02] MEDS: fentaNYL 12 MCG PATCH TD (17:02)
[2024-09-02] MEDS: Mirtazapine 15 MG TAB 7.5 MG PO (19:24)
[2024-09-02] MEDS: Atorvastatin 20 MG TAB PO (19:24)
[2024-09-02] MEDS: Enoxaparin 40 MG/0.4 ML SYR SC (19:37)
[2024-09-02] MEDS: Docusate Sodium 100 MG CAP PO (20:04)
[2024-09-02] MEDS: QUEtiapine 100 MG TAB PO (20:07)
[2024-09-03] VITALS (9 sets, daily range): BP systolic 143–152; BP diastolic 71–81; PULSE 71–96; RESP 2–22; TEMP 36.7–37.5; O2SAT 93–100
--- NOTE | 2024-09-03 | DI.RAD_ITS ---
Exam(s) XR HIP PELVIS ADULT BL EXAM: XR HIP PELVIS ADULT BL CLINICAL HISTORY: Foreign body in rectum as per CT prior to starting. TECHNIQUE: 2D digital imaging was performed. COMPARISON: CT CT CHEST PE ABD PELVIS W from 08/29/2024 FINDINGS: 3 views No evidence of acute pelvic nor hip fracture. Chronic osteophytic densities from prior fracture of t he greater trochanter left hip are again noted as seen on prior CT scan. There is vascular calcifica tion noted in the pelvis. There is also radiopaque oval metallic foreign body in the right-side of t he pelvis with is possibly a coin. This is probably in similar location to the recent CT scan of which would be probably within the cecum which is in the low pelvis in this patient. IMPRESSION: Ingested radiopaque foreign body apparently a coin in the lower right pelvis probably within the cecu m DATA REPOSITORY: RADIATION DOSE DELIVERED:
[2024-09-03] MEDS: MORPHine IR 15 MG TAB 7.5 MG PO ×5 (00:17→19:39)
[2024-09-03] MEDS: DOXYCYCLINE 100 MG in Normal Saline 100 ML IVPB ×2 (03:54→17:42)
[2024-09-03] MEDS: Acetaminophen 500 MG TAB 1000 MG PO ×3 (05:03→21:53)
[2024-09-03] MEDS: Albuterol/Ipratropium 3 ML UPD VIAL UPD (05:09)
[2024-09-03 06:39] LABS: Abs Immature Grans 0.07 10^3/uL (0.0-0.06); Absolute Basophil Count 0.01 10^3/uL (0.0-0.2); Absolute Eosinophil Count 0.08 10^3/uL (0.0-0.7); Basophils % 0.1 %; Eosinophils % 0.6 %; HCT 34.1 % (40.0-50.0); HGB 11.2 g/dL (13.5-17.5); Immature Grans % 0.5 %; MCH 30.2 pg (27.0-33.0); MCHC 32.8 % (32.0-36.0); MCV 92 fL (80-95); MPV 9.2 fL (8.0-11.0); Monocytes % 6.2 %; Neutrophils % 84.6 %; Platelet Count 325 10^3/uL (130-400); RBC 3.71 10^6/uL (4.36-5.78); RDW 15.9 % (11.8-14.1); RDW-SD 53.9 fL
[2024-09-03 06:41] LABS: Absolute Lymphocyte Count 1.06 10^3/uL (1.2-3.4); Absolute Monocyte Count 0.82 10^3/uL (0.1-0.8); Absolute Neutrophil Count 11.25 10^3/uL (1.2-6.7)
[2024-09-03 06:55] LABS: Anion Gap 5.3 mmol/L (3-11); BUN 28 mg/dL (7-18); CO2 31.7 mmol/L (21.0-32.0); CREATININE 1.1 mg/dL (0.70-1.30); Calcium 9.4 mg/dL (8.5-10.1); Chloride 99 mmol/L (98-107); Estimated GFR 73.12 (mL/min/1.73m2); Glucose 136 mg/dL (74-106); Potassium 4.4 mmol/L (3.5-5.1); Sodium 136 mmol/L (136-145)
[2024-09-03] MEDS: Fluticasone NASAL SPRAY 16 GM BTL NS ×2 (07:52→19:41)
[2024-09-03] MEDS: Docusate Sodium 100 MG CAP PO ×2 (07:54→19:39)
[2024-09-03] MEDS: Escitalopram 20 MG TAB PO (07:54)
[2024-09-03] MEDS: Sennosides/Docusate Sodium TAB 1 TAB PO ×2 (07:54→19:39)
[2024-09-03] MEDS: Meloxicam 15 MG TAB PO (07:54)
[2024-09-03] MEDS: Clopidogrel 75 MG TAB PO (07:54)
[2024-09-03] MEDS: lamoTRIgine 100 MG TAB PO ×2 (07:54→19:40)
[2024-09-03] MEDS: Lisinopril 10 MG TAB PO (07:54)
[2024-09-03] MEDS: predniSONE 40 MG, predniSONE 10 MG 50 MG PO (07:54)
[2024-09-03] MEDS: Omeprazole 20 MG CAPCR PO (07:54)
[2024-09-03] MEDS: Vitamins B Comp w/C TAB 1 TAB PO (07:55)
[2024-09-03] MEDS: Magnesium Chloride 64 MG TABCR PO (07:55)
[2024-09-03] MEDS: Polyethylene Glycol 3350 17 GM PACKET PO (07:55)
--- NOTE | 2024-09-03 16:06 | PTTR_ITS ---
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 Standard. Activity as tolerated. Subjective: Pt motivated to participate. He reports being concerned about going home too soon but he does not want to go to SNF. Objective: General Observation: resting on chair. Telemetry monitoring in place. IV access in R UE. Cachexic. Mental Status: Alert and oriented as to date, time, and place. Pain: denied Bed Mobility/Transfers: Minimal cueing provided for use of B hands as needed for support, movement sequence, AD management, and posture to reduce fall risk and minimize pain report Supine to sit independent Sit to stand independent Stand to sit independent Bed to chair supervision Gait: Able to tolerate level surface ambulation of 30 feet x 4 in first session and then second session 200 feet x 1 and 150 feet x 1 using front wheeled walker with stand by assist. Sandy decreased. Step height and length decreased. No loss of balance. Mild shortness of breath. SaO2 91-96% on RA Assessment: Pt demonstrates ability to self pace and utilize pursed lip breathing to maintain sats >91% during and after functional tasks. Pt demonstrates good insight into safe technique with transfers. He able to utilize call light nurse notification system appropriately. Pt no longer requires use of alarms at this time discussed with RN . Plan of Care/Treatment Plan: 1x/day, 7 days/week x 1 week. Plan of care has been reviewed with the ACOUSTIC WARFARE ANALYST providing the service under Physical Therapy direction. Initiate Physical Therapy intervention for pain management as needed, strengthening, bed mobility, transfers, gait, stairs, balance training, and use of assistive device. DISCHARGE RECOMMENDATIONS: [X] Home with services. Patient will benefit from home health PT services in order to progress mobility level using least restrictive assistive ambulatory device, assess home safety, identify additional equipment needs, and establish a functional maintenance program that will increase ability of patient to remain at home. [X] Patient will also benefit from the use of a shower chair to minimize shortness of breath and facilitate independence in self care performance while decreasing risk for falls. TREATMENT CODE/TIME: first session [id number] x 14 minutes for 1 unit [id number] second session: [id number] x 2 units [id number]
--- NOTE | 2024-09-03 16:58 | CHAPLAIN ---
Jimenez was in bed watching tv when I stopped by late in the afternoon. He said he is likely going home tomorrow. Jimenez lives in [facility] at the [place] of [facility], he said, [place]. He lives with a roommate. They see all kinds of wildlife there and hand feed raccoons.
[2024-09-03] MEDS: cefTRIAXone 2 GM/50 ML BAG IVPB (17:00)
--- NOTE | 2024-09-03 17:02 | CMPROGNOTE_ITS ---
Date of service: 09/03/24 Time of Service: 17:02 Care Management Progress Note Progress Note Text Progress Note Text: Jimenez was sitting up in a chair when CM met with him. He stated that he had not slept well last night because he woke up at 3 am and couldn't fall back asleep. Jimenez shared that his pain is better controlled although he has been needing his PO morphine every 4-5 hours. Jimenez informed CM that he does not have any official identification and really needs it. 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 Jimenez also indicated that he lost his Food Stamp book. CM left a message with [facility] to determine if they are able to assist. Discharge Potential Discharge Needs: PCP F/U Appt and Other (Oncology at [facility]) Anticipated Barriers to Discharge: None Identified Patient/Family Education Needs: Review discharge instructions, discuss Ask Me Three Transportation: RCT Plan: Jimenez will be discharged home with a resumption of home health services for RN, PT and RESIDENT IN DIAGNOSTIC RADIOLOGY, when he is medically ready. He will follow up with his community providers and transport via RCT coordinated by CM. CM will follow and continue to support discharge needs. SDOH(Care Management) Screening Will the Patient Participate in the Screening?: Yes Do you worry about having a steady place to live?: no Problems where you live: no known problems In the past 12 months, have you had to go without electric, gas, oil or water in your home?: no Have you or anyone in your house had to go without enough food to eat?: no Has lack of transportation kept you from medical appointments or from doing things needed for daily living?: no Has anyone in your support network made you feel unsafe for any reason?: no Social Determinants of Health Comments(SDOH Details): poor historian
--- NOTE | 2024-09-03 17:31 | W.PM.PROGNOT ---
Date of Service Date of service: 09/03/24 Time of Service: 13:32 Assessment and Plan Assessment and plan (1) Pneumonia: Status: Acute Assessment and plan: On room air?no additional oxygen supplementation required Continue doxycycline and ceftriaxone day 5 of 5 (2) COPD (chronic obstructive pulmonary disease): Status: Chronic Assessment and plan: Continue home medicine regimen Home O2 at baseline; keep SPO2 > 88% On prednisone currently at 50 mg daily will start taper in a.m. Slow taper at discharge. (3) Nephrostomy present: Status: Acute Assessment and plan: Placed 07/30 at [facility]; patent continue to monitor I&O (4) Bladder malignancy: Status: Chronic Assessment and plan: Palliative radiation treatment at [facility] to be started. (5) Pain: Status: Acute Assessment and plan: Chronic pain with worsening associated with bladder malignancy, T4 compression fracture. Seeing palliative. Fentanyl patch 12 mcg ongoing scheduled APAP ongoing Ongoing meloxicam scheduled from home On Morphine IR, 7.5 mg every 4 hours PRN?seems effective no increased sedation noticed (6) Coronary artery disease: Assessment and plan: No symptoms of CAD exacerbation. Negative troponins x 3 on admission , pleuritic pain initially, seems to have resolved Ongoing outpatient cardiac meds. (7) Compression fracture of T4 vertebra: Status: Acute Assessment and plan: Healing compression fx -continue morphine for pain adjust PRN On Fentanyl patch (8) Liver mass: Status: Acute Assessment and plan: On admission CT, need to assess for metastases; but previous images mentioned spread to lymph nodes and pelvis. Not present on CT earlier in this month at . Oncologist Dr. Santamaria noticed a foreign body on the CT and would like an x-ray prior to starting radiation therapy to make sure that it has been expelled. MRI is best evaluation, but should be done at as they are able to given LRADs staging of liver lesions to better assess risk of malignancy. (9) Opioid-induced constipation: Status: Resolved Assessment and plan: Continue scheduled PEG and scheduled Colace. Patient had receivedrelastor and dulcolax suppository prior in the stay with good effectiveness (10) Advanced care planning/counseling discussion: Status: Acute Assessment and plan: Outpatient follow-up with palliative Pain management as above Full code Community connections CHW also seeing patient to help with social barriers. (11) DVT prophylaxis: Status: Acute Assessment and plan: Ongoing low molecular weight heparin due to high risk with CA and recent COVID (12) Discharge planning issues: Status: Acute Assessment and plan: Discharge home with HH resumption when medically stable Patient to be discharged home on 09/04/2024 with complete home health services Discussed with Dr. Sumner Subjective Subjective Patient reports: no new complaints, feels better, tolerating liquids well, tolerating a regular diet, voiding w/o difficulty, flatus, bowel movement, blood in stool and other (Reporting increased fatigue today due to exertion yesterday would like to stay 1 more night ); denies nausea, vomiting, shortness of breath or fever Exam Narrative Exam Narrative: Frail chronically ill-appearing, cachectic appearing older than stated age without acute distress. Neurologic awake alert oriented no focal deficits Head is atraumatic .Oral mucosas slightly dry neck full range of motion no JVD. Respirations are nonlabored with clear breath sounds with diminished right base and mid lobes. Cardiovascular regular rate and rhythm Abdomen is nondistended soft nontender, bowel sounds are present. Skin is intact Moves all extremities; no peripheral edema seen. Objective Last Vital Signs Temp 36.7 C 09/03/24 15:17 Pulse 96 H 09/03/24 15:17 Resp 22 09/03/24 15:17 BP 152/81 H 09/03/24 15:17 Pulse Ox 95 09/03/24 15:17 Laboratory Results - last 24 hr 09/03/24 06:06 WBC 13.30 H RBC 3.71 L Hgb 11.2 L Hct 34.1 L MCV 92 MCH 30.2 MCHC 32.8 RDW 15.9 H Plt Count 325 MPV 9.2 Immature Gran % 0.5 Neutrophils % 84.6 Lymphocytes % 8.0 Monocytes % 6.2 Eosinophils % 0.6 Basophils % 0.1 Nucleated RBC % 0.0 Absolute Neutrophils 11.25 H Absolute Lymphocytes 1.06 L Absolute Monocytes 0.82 H Absolute Eosinophils 0.08 Absolute Basophils 0.01 Sodium 136 Potassium 4.4 Chloride 99 Carbon Dioxide 31.7 Anion Gap 5.3 BUN 28 H Creatinine 1.1 Est GFR (CKD-EPI 2020) 73.12 Glucose 136 H Calcium 9.4 Time Spent with Patient Time Spent with Patient: >50 minutes Time was spent: preparing to see the patient(eg.review tests), obtaining and/or reviewing separately otained hiistory, ordering medications,tests, procedures, referring, communicating with other health critical care technician, indepentently interpreting results, counseling the patient and care coordination
[2024-09-03] MEDS: Normal Saline Flush 10 ML SYR IVP ×2 (17:42→19:08)
--- NOTE | 2024-09-03 18:10 | SPP_ITS ---
Date of service: 09/03/24 Time of Service: 12:00 Subjective Patient contacted for noon meal follow-up this date. Patient transfers with standby assist to be up to chair in his room for the meal. Patient and nursing report much improved medication administration using puree instead of thin liquids to carry pills. Reportedly with good tolerance of supper/breakfast since initial evaluation yesterday. Objective/Assessment/Plan Objective Treatment Techniques & Outcomes: Patient positioning: Up to chair/90 degrees Respiratory status: Room air, Tolerates well without s/sx dyspnea, noting baseline cough this date prior to start of meal, patient endorses he has been coughing frequently this date (it's phlegm). Trials Assessed: IDDSI 0 Thin Liquids IDDSI 4 Puree Solid IDDSI 6 Soft & Bite Size Solid Oral Phase Findings: WFL Pharyngeal Phase Findings: Cough mild delay after swallow across multiple textures including liquids. However, unable to distinguish quality and frequency from baseline cough noted prior to PO trials. 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 Short Term Goals: Patient will tolerate L6 soft/bite sized Diet and Thin liquids without overt s/s aspiration across 2/2 visits. Assessment Patient presents with stable tolerance of soft/bite size solids. Shows modest improvements with feeding rate (less reminders for slower rate and smaller bites/sips, pt previously with good insight into this but admits difficulty with self-regulation). He does endorse significant improvement in tolerance of medication administration with pills taken in puree and expresses grattitude. Question if s/sx aspiration noted are moreso related to baseline cough from current respiratory status vs reflux related sx given history, or if there is an oral-pharyngeal dysphagia overlaid as well. Patient may benefit from outpatient MBSS especially given RLL pna, pending his priorities of care given complex medical situation overall. Plan Plan: Frequency: 2-3x/week for 1-2 weeks Recommendations Recommendations: Diet Recommendations: ? SOLIDS: 6-Soft & Bite-Sized Solids - extra sauce/gravy LIQUIDS: 0-Thin Liquids MEDICATIONS: Whole With 4-Purees Alter medications only as advised by MD or Pharmacist RISK MANAGEMENT: Level of Assistance/Supervision: Intermittent supervision for all PO intake - cues for safety precautions as below Positioning and environment: PO intake only when awake/alert? Reduce auditory and/or visual distractions when eating [place] upright for all PO intake. Oral hygiene BID/2x per day Using friction with toothbrush on all oral structures as tolerated Strategies/Adaptations/Assistive Equipment: Small sips Small bites Slow rate of intake Reflux Precautions: Small+frequent meals throughout day Maintain fully upright position at least 30 minutes after meals Avoid meals/snacks 2-3 hours prior to reclining/sleeping Sleep with head of bed elevated to reduce likelihood of nocturnal reflux Total Time Spent: 20 min
[2024-09-03] MEDS: Mirtazapine 15 MG TAB 7.5 MG PO (19:39)
[2024-09-03] MEDS: Enoxaparin 40 MG/0.4 ML SYR SC (19:40)
[2024-09-03] MEDS: Atorvastatin 20 MG TAB PO (19:40)
[2024-09-03] MEDS: QUEtiapine 100 MG TAB PO (19:40)
--- NOTE | 2024-09-04 | DI.CT_ITS ---
Exam(s) CT ABDOMEN PELVIS WO EXAM: CT ABDOMEN PELVIS WO CLINICAL HISTORY: Free air on XR. TECHNIQUE: Imaging Protocol: Axial computed tomography images with coronal and sagittal reformatted images were created and reviewed CONTRAST MATERIAL: Intravenous: none Oral: None COMPARISON: CT CT CHEST PE ABD PELVIS W from 08/29/2024 CR XR ABDOMEN FLAT LATERAL from 09/04/2024 FINDINGS: VISUALIZED LUNG BASES: Mild increased markings in the right lung base. No pleural effusions.. Patie nt is noted to be cachectic. ABDOMEN: There is no obvious free intraperitoneal air, as suggested on recent cross-table lateral plain film v iew. There is no ascites. There is abundant fecal material throughout the colon. There is a radiopaque foreign body in the inf erior lateral right pelvis which is probably a: And which is difficult to accurately localize as to w hether it is in the low lying cecum or right side of the rectum at this level or within a fecalized s mall bowel loop at this level. There is no evidence of small-bowel obstruction, free air, nor absces s. Stomach is somewhat dilated as is the duodenum. Lower esophagus is not dilated. There is no obvious small bowel obstruction. Abundant fecal material noted throughout the colon without a distinct gusman sition point. LIVER: There are no obvious focal hepatic lesions evident of this noninfused study. GALLBLADDER/BILIARY: No obvious acute gallbladder pathology. CBD is not dilated. PANCREAS: No evidence of obvious pancreatic mass nor obvious dilatation of the pancreatic duct. SPLEEN: Spleen is small. ADRENALS: There are no significant adrenal masses. KIDNEYS:Right kidney unremarkable. There is a pigtail nephrostomy tube in the left kidney with the p igtail being eccentrically located within the kidney at level peripheral infundibulum. Should probab ly be repositioned. There is mild left-sided hydronephrosis and hydroureter. There is a small poste rior cortical cyst in the left kidney measuring approximately 1 cm size. No radiopaque calculi. No solid masses.. ABDOMINAL AORTA: Abdominal aorta is heavily calcified but not enlarged. Iliac arteries are also heav malena calcified but not enlarged. LYMPH NODES: There is no retroperitoneal nor paraaortic adenopathy. ABDOMINAL WALL: No evidence of significant anterior abdominal wall nor inguinal hernia. GI: There is a large amount of fecal material throughout the length of the colon. PELVIS: LYMPH NODES: There is no intrapelvic nor inguinal adenopathy. GI: No evidence of obvious appendicitis.No evidence of obvious acute sigmoid diverticulitis. URINARY BLADDER: Urinary bladder is distended, measuring 11 cm AP by 9 cm by 11 cm. There is some mu ral calcification in the urinary bladder left of center which is possibly a lesion and responsible fo r the left-sided hydronephrosis. REPRODUCTIVE: Prostate gland is enlarged and lobulated. OSSEOUS: Dystrophic calcification or around the greater trochanter of the left hip chronic-type. No acute fractures evident. No significant osseous lesions IMPRESSION: 1. Left-sided hydronephrosis and mild dilatation left ureter, this despite presence of a left kidney nephrostomy tube. Nephrostomy tube is somewhat eccentrically located in the kidney in the outer infu ndibulum in cortex region and optimal place would would be to advance this into the renal pelvis. Th ere are no findings nor hydronephrosis in the opposite-right kidney. 2. Partially calcified bladder wall finding on the left which is possibly bladder neoplasm and theref ore possibly responsible for the left-sided hydronephrosis. There is also a lobulated enlarged asymm etric appearing prostate gland 3. Abundant fecal material noted throughout the colon. 4. Radiopaque density which has appearance of aprobable coin eccentrically located in the lower righ t pelvis. It is intimately related to the lateral wall of the what is probably a low lying deep pelv ic cecum. It does not appear to be in the rectum. There is no free air. There is no ascites. Findings discussed by phone with on-call surgeon 09/04/2024 5:45 p.m. RADIATION DOSE DELIVERED: 279.29mGy.cm Total DLP DATA REPOSITORY: All CT scans at this facility are submitted to the National Radiology Data Registry (NRDR) Dose Index Registry (DIR) with the [employer] (A[employer]). RADIATION OPTIMIZATION: All CT scans at this facility use at least one of these dose optimization te chniques: automated exposure control; mA and/or kV adjustment per patient size (includes targeted exa ms where dose is matched to clinical indication); or iterative reconstruction.
--- NOTE | 2024-09-04 | DI.RAD_ITS ---
Exam(s) XR ABDOMEN FLAT LATERAL EXAM: XR ABDOMEN FLAT LATERAL CLINICAL HISTORY: foreign body? terminal placement of foreign body. TECHNIQUE: 2D digital imaging was performed. COMPARISON: CR XR ABDOMEN FLAT UPRIGHT from 04/17/[address] CHEST PE ABD PELVIS W from 08/29/2024 CR XR HIP PELVIS ADULT BL from 09/03/2024 FINDINGS: AP supine and cross-table lateral views of the abdomen-pelvis, compared to 04/17/2024 and 09/03/2024. There is a left-sided pigtail drainage catheter which is apparently nephrostomy tube. The radiopaque ingested coin is unchanged position in the right iliac fossa probably within the later al aspect of the cecum. Other possibly is in the rectum. On the cross-table lateral view there is a suggestion of free intraperitoneal air superiorly. IMPRESSION: Radiopaque coin remains in similar to position to yesterday which is probably in the cecum which is w ithin the right-side of the pelvis. There is a suggestion of free air within the upper abdominal cavity as seen on the cross-table latera l view. Recommend upright and decubitus views. Report recommendations called by myself to [facility] surgical hospitalist 09/04/2024 at 4:35 p.m. DATA REPOSITORY: RADIATION DOSE DELIVERED:
[2024-09-04] MEDS: MORPHine IR 15 MG TAB 7.5 MG PO ×6 (00:08→23:33)
[2024-09-04] MEDS: Normal Saline Flush 10 ML SYR IVP (03:57)
[2024-09-04] MEDS: Acetaminophen 500 MG TAB 1000 MG PO ×3 (06:35→21:04)
[2024-09-04 07:43] VITALS: BP 148/75; PULSE 81; RESP 20; TEMP 37.2; O2SAT 95
[2024-09-04] MEDS: predniSONE 20 MG TAB 40 MG PO (08:16)
[2024-09-04] MEDS: lamoTRIgine 100 MG TAB PO ×2 (08:16→21:04)
[2024-09-04] MEDS: Escitalopram 20 MG TAB PO (08:16)
[2024-09-04] MEDS: Docusate Sodium 100 MG CAP PO ×2 (08:16→21:04)
[2024-09-04] MEDS: Vitamins B Comp w/C TAB 1 TAB PO (08:16)
[2024-09-04] MEDS: Sennosides/Docusate Sodium TAB 1 TAB PO ×2 (08:16→21:05)
[2024-09-04] MEDS: Lisinopril 10 MG TAB PO (08:16)
[2024-09-04] MEDS: Omeprazole 20 MG CAPCR PO (08:16)
[2024-09-04] MEDS: Magnesium Chloride 64 MG TABCR PO (08:16)
[2024-09-04] MEDS: Meloxicam 15 MG TAB PO (08:16)
[2024-09-04] MEDS: Clopidogrel 75 MG TAB PO (08:16)
[2024-09-04] MEDS: Polyethylene Glycol 3350 17 GM PACKET PO ×2 (08:17→21:04)
--- NOTE | 2024-09-04 10:13 | DSE_ITS ---
Date of service: 09/04/24 Time of Service: 10:13 DS: Diagnosis Discharge Diagnosis (1) Pneumonia: Status: Acute (2) COPD (chronic obstructive pulmonary disease): Status: Chronic (3) Nephrostomy present: Status: Acute (4) Bladder malignancy: Status: Chronic (5) Pain: Status: Acute (6) Coronary artery disease: (7) Compression fracture of T4 vertebra: Status: Acute (8) Liver mass: Status: Acute (9) Opioid-induced constipation: Status: Resolved (10) Advanced care planning/counseling discussion: Status: Acute (11) DVT prophylaxis: Status: Acute (12) Discharge planning issues: Status: Acute Discharge Plan Disposition Patient Disposition: Home W/Home Health Services Condition: Improving Discharge Details Reason For Visit: Pneumonia,Acute on Chronic Hypoxic Resp Failure, C Admit Date/Time: 08/29/24 16:03 Admit Provider: Sharan Weinstein Attending Provider: Sharan Weinstein Primary Care Provider: LING LEBLANC Hospital Course Hospital Course: This 69-year-old male patient past medical history remote myocardial infarction, CAD, recent diagnosis of 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 Workup in the ED showed leukocytosis at 14.70, an hemoglobin of 11.8, troponin of 58-53 with and EKG that was negative for ischemic findings. CT Chest/abd/pelvis showed a right lower lobe pneumonia with mucous plugging; a large quantity of stool throughout the colon and reported ingested coin noted within colon in low pelvis. Moderate left hydronephrosis seen with nephrostomy tube no longer position within the renal pelvis but within the mid pole aydin. Stable appearance irregular bladder wall thickening/bladder mass. New and increasing liver lesions consistent with metastases seen. The patient was admitted to the hospitalist service for further evaluation and management. During the stay the patient was treated with doxycycline and ceftriaxone and well as prednisone with improvement of respiratory symptoms. He will be discharge on a long prednisone taper and a short course of doxycycline and cefpodoxime. The patient's constipation linked to opioids usage was treated with Relastor, bisacodyl suppository, miralax, docusate- senna with effectiveness. The patient will be discharged on an increased regimen of bowel management medicines. The foreign object in the patient's bowel was not expelled; thought to be a coin but the patient denied ingesting or rectally inserting a coin today. Surgical consultation was initiated with negative findings for pneumoperitoneum as per CT but large stool burden for which patient will receive mag citrate. Pain control was achieved with fentanyl patch and oral morphine regimen. Fentanyl patch script sent to pharmacy with further orders by out patient provider. The patient will be discharged home with home health services resumption of PT, nursing, medical information specialist; in addition the patient will benefit from home health occupational therapy. Physical therapy recommended the use of a shower chair to minimize shortness of breath and facilitate independence in self care performance while decreasing risk for falls. The patient will need to see his primary care practitioner within 7 days of discharge. The patient will also need to contact his oncologist Dr. Santamaria regarding the continuation/initiation of his palliative radiotherapy. As per admission CT, needs to assess for metastases.. Findings were not present on earlier CTthis month at [facility]. MRI is best evaluation, but should be done at as they are able to given LRADs staging of liver lesions to better assess risk of malignancy. Discussed with Dr. Sumner Home Meds and New Rx's Prescriptions: New doxycycline hyclate 100 mg Capsule 100 mg PO BID Qty: 6 0RF fentanyl 12 mcg/hr Patch 72 Hour 12 mcg transdermal Q72H Qty: 3 0RF polyethylene glycol 3350 17 gram Powder In Packet 17 g PO BID Qty: 60 0RF prednisone 20 mg Tablet See Taper PO DAILY Qty: 15 0RF Taper: Prednisone 20mg taper 40 mg Daily for 3 Days and 0 Hour 30 mg Daily for 3 Days and 0 Hour 20 mg Daily for 3 Days and 0 Hour 10 mg Daily for 3 Days and 0 Hour Rx Instructions: TAPER: 40 mg daily for 3 Days; 30 mg daily for 3 Days; 20 mg daily for 3 Days; 10 mg daily for 3 Days sennosides-docusate sodium [Colace 2-In-1] 8.6-50 mg Tablet 1 tab PO BID Qty: 60 0RF cefpodoxime 200 mg tablet 200 mg PO BID Qty: 6 0RF Rx Instructions: must administer with a meal/food Continued Oxygen 2 l inhalation .exertion Qty: 1 0RF Rx Instructions: Use 2LPM with exertion escitalopram oxalate 20 mg tablet 20 mg PO DAILY Qty: 1 0RF meloxicam 15 mg tablet 15 mg PO DAILY clopidogrel [Plavix] 75 mg tablet 75 mg PO DAILY Qty: 90 3RF lamotrigine [Lamictal] 100 mg tablet 100 mg PO BID lisinopril 10 mg tablet 10 mg PO DAILY Qty: 90 0RF omeprazole 20 mg capsule,delayed release(DR/EC) 20 mg PO DAILY Qty: 90 0RF vitamin B complex-folic acid 0.4 mg tablet 1 tab PO DAILY fluticasone propionate 50 mcg/actuation spray,suspension 1 spray intranasal BID Patient Comments: pt states not taking 05/28/23 Rx Instructions: administer into each nostril Isabelatri Aerosphere 160-9-4.8 mcg/actuation HFA aerosol inhaler See Rx Instructions .ROUTE .COMPLEX Qty: 32.1 12RF Dose Instruction: INHALE TWO PUFFS BY MOUTH TWICE A DAY Rx Instructions: INHALE TWO PUFFS BY MOUTH TWICE A DAY ipratropium-albuterol 0.5 mg-3 mg(2.5 mg base)/3 mL solution for nebulization See Rx Instructions .ROUTE .COMPLEX Qty: 30 11RF Dose Instruction: USE 1 VIAL IN NEBULIZER DAILY - for rescue Rx Instructions: USE 1 VIAL IN NEBULIZER DAILY - for rescue albuterol sulfate 90 mcg/actuation HFA aerosol inhaler See Rx Instructions .ROUTE .COMPLEX Qty: 8.5 12RF Dose Instruction: INHALE TWO PUFFS BY MOUTH EVERY 6 HOURS NEEDED FOR SHORTNESS OF BREATH OR WHEEZING Rx Instructions: INHALE TWO PUFFS BY MOUTH EVERY 6 HOURS NEEDED FOR SHORTNESS OF BREATH OR WHEEZING trazodone 100 mg tablet 100 mg PO QHS morphine 15 mg tablet See Rx Instructions PO Q6H MDD 4 pill (60 mg) of short acting PRN (Reason: pain) Qty: 60 0RF Rx Instructions: STart with a HALF of a tablet every 4 hours as needed for pain management (use in addition to regular LONG ACTING MORPHINE). CAn increase to a WHOLE pill every 4 hours as needed. orally every 6 hours PRN; quetiapine 100 mg tablet 100 mg PO HS Patient Comments: TAKE ONE TABLET BY MOUTH EVERY EVENING morphine 15 mg tablet extended release 15 mg PO Q12H atorvastatin 20 mg Tablet 20 mg PO DAILY benzonatate 100 mg Capsule 100 mg PO TID PRN PRN (Reason: Cough) Qty: 30 0RF bisacodyl 10 mg suppository 10 mg WA DAILY PRNQty: 12 2RF Changed acetaminophen 500 mg capsule 1,000 mg PO Q8H PRN (Reason: fever) Qty: 100 2RF Rx Instructions: OK to take with oxycodone 5mg Discontinued polyethylene glycol 3350 [Miralax] 17 gram/dose powder 17 g PO DAILY Qty: 510 4RF fentanyl 12 mcg/hr patch 72 hour 1 patch transdermal Q72H MDD 1 patch Qty: 5 0RF Patient Comments: states he does not have one docusate sodium [Colace] 100 mg capsule 100 mg PO BID Qty: 20 0RF Discharge Instructions Referrals: LING LEBLANC MAINTENANCE ADVISOR [Primary Care Provider] - (F/u within 7 days of discharge please) Bethany Byrd MD [ [facility] STAFF PHYSICIAN] - 09/09/24 2:00 pm (Dr. Byrd will call to confirm home visit) Activity:: Activity as Tolerated Equipment/Supplies:: Walker Diet:: Heart healthy DS: Summary Time Spent with Patient providing and/or coordinating discharge services: Greater than 30 minutes Status at Discharge Functional status at discharge: uses cane/walker Overall status at discharge: patient is progressing back to baseline Mental Status: mental status grossly normal Speech and Movement: speech and movement normal Mood: congruent mood Affect: normal affect Quality:SDOH Health Related Social Needs: Health related social needs material hardship(utilitie s)(Z59.87) Exam Narrative Exam Narrative: Frail chronically ill-appearing, cachectic appearing older than stated age without acute distress. Neurologic awake alert oriented no focal deficits Head is atraumatic .Oral mucosas slightly dry neck full range of motion no JVD. Respirations are nonlabored with clear breath sounds with diminished right base and mid lobes. Cardiovascular regular rate and rhythm Abdomen is nondistended soft nontender, bowel sounds are present. Skin is intact Moves all extremities; no peripheral edema seen. Psych Mental Status: mental status grossly normal Speech and Movement: speech and movement normal Mood: congruent mood Affect: normal affect DS: Data Vitals/I&O Vitals and I&O: Vital Signs Temperature 37.2 C 12/19/24 07:43 Temperature Source Temporal Artery Scan 09/04/24 07:43 Pulse 81 09/04/24 07:43 Pulse Rhythm Regular 08/29/24 17:43 Pulse 67 08/29/24 16:31 Respiratory Rate 20 09/04/24 07:43 Respiratory Effort Pursed Lip, Incrsd Work of Breathing 08/29/24 17:43 Respiratory Depth Normal 08/29/24 17:43 Respiratory Pattern Normal 08/29/24 17:43 Blood Pressure 148/75 H 09/04/24 07:43 Blood Pressure Mean 90 08/29/24 16:30 Blood Pressure Position Sitting 08/29/24 12:36 Pulse Oximetry 95 09/04/24 07:43 Oxygen Delivery Method Room Air 09/04/24 07:43 Oxygen Flow Rate 0 09/04/24 07:43 Fraction of Inspired Oxygen (FIO2) 2 08/30/24 11:20 Pain Level 7 09/04/24 09:49 Comment RN NOTIFIED. 09/04/24 07:43 Intake & Output 09/03/24 09/03/24 09/04/24 11:59 23:59 11:59 Intake Total 815 / 1445 630 / 1445 990 / 990 Output Total 1075 / 2200 1125 / 2200 750 / 750 Balance -260 / -755 -495 / -755 240 / 240 Weight 44.679 kg 45.132 kg Intake: IV 110 / 260 150 / 260 Oral 480 / 960 480 / 960 640 / 640 Injectate 225 / 225 350 / 350 Left Back 225 / 225 350 / 350 Output: Drainage 75 / 75 Left Back 75 / 75 Urine 1000 / 2125 1125 / 2125 750 / 750 Other: Urine Color Yellow Yellow Yellow Urine Appearance Clear Clear Urine Odor Normal Stool Size Small Small Stool Characteristics Soft Formed Brown PFSH All Active Problems (Updated 09/04/24 @ 17:14 by Bailey Vo APRN) Foreign body in cecum (Acute) Discharge planning issues (Acute) Pneumonia (Acute) Exercise hypoxemia (Acute) COPD exacerbation (Acute) Acute hyperkalemia (Acute) DVT prophylaxis (Acute) Bladder malignancy (Chronic) locally invasive 8.5 cm mass resected 07/29/2024 [facility] Dr. Frye. L hydronephrosis (nephrostomy placed at time of surgery) Urothelial cancer (Acute) locally invasive 8.5 cm mass partially resected 07/29/2024 [facility] Dr. Frye. L hydronephrosis (nephrostomy placed at time of surgery). Positive pelvic lymph nodes. Dr. Santamaria, palliative RT planned Liver mass (Acute) Compression fracture of T4 vertebra (Acute) Pneumonia due to COVID-19 virus (Acute) Nephrostomy present (Acute) Pain (Acute) Multifactorial: From bladder tumor? From nephrostomy tube? Started on opiates July 2024 while at [facility]. [facility] palliative care team will manage Frailty syndrome in geriatric patient (Acute) Financial insecurity (Acute) Advanced care planning/counseling discussion (Acute) Palliative care encounter (Acute) Weight loss (Acute) Chronic fatigue (Acute) Pulmonary cachexia due to chronic obstructive pulmonary disease (Acute) Night sweats (Acute) Unintentional weight loss (Acute) MAKI (acute kidney injury) (Acute) Lumbar transverse process fracture (Acute) Fall (Acute) Pleural nodule (Acute) Ataxia (Acute) Dizziness (Acute) Gait abnormality (Acute) Rib fractures (Acute) Memory loss (Acute) Stroke (Chronic) Post concussion syndrome (Acute) Sacroiliac joint pain (Chronic) COPD (chronic obstructive pulmonary disease) (Chronic) Medical History (Updated 09/04/24 @ 17:14 by Bailey Vo APRN) Arthritis of right acromioclavicular joint (06/19/16) Hx of dizziness H/O: stroke Spine injury Anxiety with depression Bipolar 1 disorder Insomnia H/O onychomycosis Smoker Eczema Allergic rhinitis Alcohol abuse In remission GERD (gastroesophageal reflux disease) Chronic pain HTN (hypertension) COPD (chronic obstructive pulmonary disease) Coronary artery disease HCAP (healthcare-associated pneumonia) Surgical History (Updated 08/12/24 @ 15:53 by Sharan Weinstein) Nephrostomy status left, 07/30/24 History of shoulder surgery (06/30/16) H/O cystoscopy H/O transurethral resection of bladder tumor (TURBT) History of coronary artery stent placement History of tonsillectomy Rotator Cuff Repair (06/30/16) RIGHT Family History Other Heart disease Hypertension Social History (Updated 08/12/24 @ 15:54 by Sharan Weinstein) Smoking/Tobacco Use Status: Current every day Tobacco Type: cigarettes Smoking packs per day: 0.5 Smoking cigarettes per day: 10.0 Smoking risk assessment performed?: Yes Alcohol Intake: current Alcohol Intake frequency: a few times a month Alcohol type: beer Drug use: Occasionally Substance use type: marijuana Details: states drinks a 6 pack of beer over a 1 month time frame Household members: none Housing: house Number of Children: 1 current occupation: Disabled Pets and animals: No What type of physical activity do you participate in: walking Seatbelt use: sometimes Do you feel safe at home: Yes Do you feel safe in your relationship?: Yes Additional Social history: Lives with roommate in [facility] outside of [facility] Time Spent with Patient Time Spent with Patient: >85 minutes Time was spent: preparing to see the patient(eg.review tests), obtaining and/or reviewing separately otained hiistory, ordering medications,tests, procedures, referring, communicating with other health customer care manager, indepentently interpreting results, counseling the patient and care coordination
--- NOTE | 2024-09-04 10:54 | PT.INNT ---
PT Notes Visit Reasons: Pneumonia,Acute on Chronic Hypoxic Resp Failure, C Patient attempted to be seen at 10:50 for his morning session but politely refused stating that he has new pain at the R lower abdominal quadrant. Nurse Keyl said that she has been given morphine half an hour ago but patient requested to rest in bed for now. He agreed with PT about being checked on this afternoon. He is unsure if he is leaving today. Will try patient later this afternoon for a PT session, as scheduled.
--- NOTE | 2024-09-04 12:24 | PDOC.CMDIS ---
Date of service: 09/04/24 Time of Service: 12:24 LACE Index Scoring Tool Questions: Length of Stay (in days): 4 - 6 Was the patient admitted via the E.D.?: Yes Comorbidities: Metastatic Solid Tumor E.D. Visits: 4 Answers: Total Score: 16 Risk of Readmission: High Risk Care Management Discharge Plan Reason for Hospitalization: Pneumonia Discharge Plan: Discharge home with resumption of [facility] RN/PT/AUTO FLEET MAINTENANCE MANAGER, add OT. Follow up with community providers and discharge plan of care as directed. A referral was sent to [facility] prior to discharge for support with community needs and MOW. Patient/Family Education Needs: Review discharge instructions, limitations and plan to follow up in the community. Discuss ask me three. Services Needed at Discharge: Home Delivered Meals (Referral sent to [facility]) and Home Health Care Services (Resumption of [facility] RN/PT/AUTO FLEET MAINTENANCE MANAGER, add OT) SDOH Health Related Social Needs: Health related social needs material hardship(utilities)(Z59.87)
[2024-09-04] MEDS: Doxycycline Hyclate 100 MG CAP PO ×2 (14:16→19:07)
[2024-09-04 15:30] VITALS: BP 160/69; PULSE 96; RESP 20; TEMP 37; O2SAT 95
--- NOTE | 2024-09-04 16:50 | PDOC.CMPRO ---
Date of service: 09/04/24 Time of Service: 16:51 Care Management Progress Note Progress Note Text Progress Note Text: Jimenez's discharge was cancelled this evening, per provider patient may have free air in his abdomen and requires additional medical work up. If surgical intervention is needed, pt may need to transfer to a tertiary hospital. Jimenez met with Dr. Byrd on 08/21/24, another follow up with palliative may be beneficial to support patient with his goals of care and decision making needs, as needed. Discharge Potential Discharge Needs: PCP F/U Appt and Other ([facility] Oncology) Anticipated Barriers to Discharge: Medical Status Patient/Family Education Needs: Review discharge instructions, discuss Ask Me Three Transportation: RCT Plan: Discharge is postponed, further medical work up is needed which may require surgical intervention, per hospitalist. Anticipate, Jimenez will discharge home with resumption of home health services for RN, PT and EXPLOSIVE ORDNANCE DISPOSAL TECHNICIAN when medically ready. He will follow up with his community providers and transport via RCT coordinated by CM. CM will follow and continue to support discharge needs. SDOH(Care Management) Screening Will the Patient Participate in the Screening?: Yes Do you worry about having a steady place to live?: no Problems where you live: no known problems In the past 12 months, have you had to go without electric, gas, oil or water in your home?: no Have you or anyone in your house had to go without enough food to eat?: no Has lack of transportation kept you from medical appointments or from doing things needed for daily living?: no Has anyone in your support network made you feel unsafe for any reason?: no Social Determinants of Health Comments(SDOH Details): poor historian
--- NOTE | 2024-09-04 17:13 | W.PM.PROGNOT ---
Date of Service Date of service: 09/04/24 Time of Service: 17:13 Assessment and Plan Assessment and plan (1) Pneumonia: Status: Acute Assessment and plan: On room air?no additional oxygen supplementation required Was on doxycycline and ceftriaxone?transition to oral doxycycline and cefpodoxime (2) COPD (chronic obstructive pulmonary disease): Status: Chronic Assessment and plan: Continue home medicine regimen Home O2 at baseline; keep SPO2 > 88% Was on on prednisone at 50 mg daily?taper started and order sent to pharmacy As previous (3) Nephrostomy present: Status: Acute Assessment and plan: As previously noted the stent was placed 07/30 at [facility]; still patent continue to monitor I&O (4) Bladder malignancy: Status: Chronic Assessment and plan: Ongoing outpatient care: Palliative radiation treatment at [facility] to be started. (5) Pain: Status: Acute Assessment and plan: Chronic pain with worsening associated with bladder malignancy, T4 compression fracture. Seeing palliative. Fentanyl patch 12 mcg ongoing scheduled APAP ongoing Ongoing meloxicam scheduled from home Continue morphine IR, 7.5 mg every 4 hours PRN?seems effective no increased sedation noticed (6) Coronary artery disease: Assessment and plan: No exacerbation of symptoms. Negative troponins x 3 on admission , pleuritic pain initially has of now resolved Continue outpatient cardiac meds. (7) Compression fracture of T4 vertebra: Status: Acute Assessment and plan: Healing compression fx -continue morphine for pain adjust PRN Fentanyl patch initiated during stay and ongoing (8) Liver mass: Status: Acute Assessment and plan: -On admission CT, need to assess for metastases; but previous images mentioned spread to lymph nodes and pelvis. Not present on CT earlier in this month at . -Oncologist Dr. Santamaria noticed a foreign body on the CT. X-ray showed ongoing foreign body in the cecum. Patient denies ingesting a coin or rectal insertion. -Surgical consult initiated due to foreign body in cecum versus right rectal vault: Discussion with Dr. Gill and further imaging resulted in no findings of pneumoperitoneum or peripheral bowels. Large stool burden found and mag citrate ordered. Foreign body will most likely be expelled with increased bowel movements. Most likely to be ready for discharge in the morning. -MRI is best evaluation, but should be done at as they are able to given LRADs staging of liver lesions to better assess risk of malignancy. (9) Opioid-induced constipation: Status: Resolved Assessment and plan: Continue scheduled PEG and scheduled Colace. Patient had received relastor and dulcolax suppository prior in the stay with good effectiveness but remains with a large stool burden. Mag citrate initiated as per surgery (10) Advanced care planning/counseling discussion: Status: Acute Assessment and plan: Outpatient follow-up with palliative on 09/09/2024 Continue pain management as above Remains full code Community connections CHW also seeing patient to help with social barriers. (11) DVT prophylaxis: Status: Acute Assessment and plan: Ongoing Lovenox due to high risk with CA and recent COVID (12) Foreign body in cecum: Status: Acute Assessment and plan: Seen on CT on admission constipation resolved but XR still showing foreign body in R rectum VS cecum Surgery consult: Discussion with Dr. Gill resulted on f/u specific imaging with results called by Dr. Robert ayala question of pneumoperitoneum or free nika in ABD. CT of the abdomen and pelvis completed as per Sx recommendation -No perforation, free air, pneumoperitoneum -Large stool burden -will get mag citrate Was NPO?resume diet IV pain meds discontinued resume oral medicine IV antibiotics discontinued resume oral therapy (13) Discharge planning issues: Status: Acute Assessment and plan: Discharge home with HH resumption when medically stable- most likely in a.m. Patient was to be discharged home on 09/04/2024 but delayed now d/t above findings Home health services on d/c Discussed with Dr. Sumner Subjective Subjective Patient reports: no new complaints, feels better, tolerating liquids well, tolerating a regular diet, voiding w/o difficulty, flatus, bowel movement, blood in stool and other (Reporting increased fatigue today due to exertion yesterday would like to stay 1 more night ); denies nausea, vomiting, shortness of breath or fever Exam Narrative Exam Narrative: Frail chronically ill-appearing, cachectic appearing older than stated age without acute distress. Neurologic awake alert oriented no focal deficits Head is atraumatic .Oral mucosas slightly dry neck full range of motion no JVD. Respirations are nonlabored with clear breath sounds with diminished right base and mid lobes. Cardiovascular regular rate and rhythm Abdomen is nondistended soft nontender, bowel sounds are present. Skin is intact Moves all extremities; no peripheral edema seen. Objective Last Vital Signs Temp 37 C 12/19/24 15:30 Pulse 96 H 09/04/24 15:30 Resp 20 09/04/24 15:30 BP 160/69 H 09/04/24 15:30 Pulse Ox 95 09/04/24 15:30 Time Spent with Patient Time Spent with Patient: >50 minutes Time was spent: preparing to see the patient(eg.review tests), obtaining and/or reviewing separately otained hiistory, ordering medications,tests, procedures, referring, communicating with other health pharmacist critical care, indepentently interpreting results, counseling the patient and care coordination
--- NOTE | 2024-09-04 18:14 | SCONE_ITS ---
Date of service: 09/04/24 Time of Service: 18:14 Assessment and Plan Assessment and plan (1) Opioid-induced constipation: Status: Resolved Assessment and plan: - The patient's cathartic regimen was slightly adjusted. -He did have a large amount of stool today. But he still has a massive amount of stool in his colon. That needs to be dealt with or he will only and back in the emergency department I did review his CT with Dr. Jones and there is no signs of free air/perforation. Patient look swell and is only having his same chronic pain. the pt is hungey And would like additional meal. He has already received the max amount of Movantik he can have. He will be given 2 doses of mag citrate this evening as well as for Dulcolax so this should pretty much clean him out. For chronic regimen patient should continue to stay on senna twice a day and MiraLAX twice a day. He can use mag citrate for Dulcolax as rescue agents. He should not be on Colace. Movantik can be used as needed for opioid constipation. There are limits at home and times we can use this medication. Another alternative might be Linzess or Amitiza as an adjunct to help promote bowel motility 25 mins spent in direct pt care and 40 in non face to face time (2) Foreign body in cecum: Status: Acute Assessment and plan: - It is unclear exactly what this is. I did review the CT with Dr. Mendenhall. The foreign body is through the ileocecal valve and it should pass out in his stool (3) Liver mass: Status: Acute (4) Acute kidney injury: Status: Resolved (5) Nephrostomy present: Status: Acute Assessment and plan: Patient's tube is poorly aligned but it was that way on his last CT (6) Bladder malignancy: Status: Chronic Assessment and plan: Patient currently has stage IV bladder cancer with mets to the liver and the bone. He still actively undergoing chemo (7) Urothelial cancer: Status: Acute (8) COPD (chronic obstructive pulmonary disease): Status: Chronic (9) Compression fracture of T4 vertebra: Status: Acute (10) Post concussion syndrome: Status: Acute (11) Stroke: Status: Chronic (12) GERD (gastroesophageal reflux disease): (13) Bipolar 1 disorder: (14) Pulmonary cachexia due to chronic obstructive pulmonary disease: Status: Acute (15) Gait abnormality: Status: Acute (16) Pain: Status: Acute (17) HCAP (healthcare-associated pneumonia): (18) Smoker: (19) Coronary artery disease: (20) Abnormal finding on diagnostic imaging of testicle: Status: Acute Assessment and plan: Awaiting further input from Dr. Mclaughlin. [facility] All Active Problems (Updated 09/08/24 @ 18:04 by Sharan Reza MD) Encounter for medical screening examination (Acute) Abnormal finding on diagnostic imaging of testicle (Acute) Foreign body in cecum (Acute) Exercise hypoxemia (Acute) Bladder malignancy (Chronic) locally invasive 8.5 cm mass resected 07/29/2024 [facility] Dr. Frye. Bebeto hydronephrosis (nephrostomy placed at time of surgery) Urothelial cancer (Acute) locally invasive 8.5 cm mass partially resected 07/29/2024 [facility] Dr. Frye. Bebeto hydronephrosis (nephrostomy placed at time of surgery). Positive pelvic lymph nodes. Dr. Santamaria, palliative RT planned Liver mass (Acute) Compression fracture of T4 vertebra (Acute) Pneumonia due to COVID-19 virus (Acute) Nephrostomy present (Acute) Pain (Acute) Multifactorial: From bladder tumor? From nephrostomy tube? Started on opiates July 2024 while at [facility]. [facility] palliative care team will manage Frailty syndrome in geriatric patient (Acute) Financial insecurity (Acute) Advanced care planning/counseling discussion (Acute) Palliative care encounter (Acute) Weight loss (Acute) Chronic fatigue (Acute) Pulmonary cachexia due to chronic obstructive pulmonary disease (Acute) Night sweats (Acute) Unintentional weight loss (Acute) MAKI (acute kidney injury) (Acute) Lumbar transverse process fracture (Acute) Fall (Acute) Pleural nodule (Acute) Ataxia (Acute) Dizziness (Acute) Gait abnormality (Acute) Rib fractures (Acute) Memory loss (Acute) Stroke (Chronic) Post concussion syndrome (Acute) Sacroiliac joint pain (Chronic) COPD (chronic obstructive pulmonary disease) (Chronic) Medical History (Updated 09/08/24 @ 18:04 by Sharan Reza MD) Arthritis of right acromioclavicular joint (06/19/16) Hx of dizziness H/O: stroke Spine injury Anxiety with depression Bipolar 1 disorder Insomnia H/O onychomycosis Smoker Eczema Allergic rhinitis Alcohol abuse In remission GERD (gastroesophageal reflux disease) Chronic pain HTN (hypertension) COPD (chronic obstructive pulmonary disease) Coronary artery disease HCAP (healthcare-associated pneumonia) Surgical History (Updated 08/12/24 @ 15:53 by Sharan Weinstein) Nephrostomy status left, 07/30/24 [facility] History of shoulder surgery (06/30/16) H/O cystoscopy H/O transurethral resection of bladder tumor (TURBT) History of coronary artery stent placement History of tonsillectomy Rotator Cuff Repair (06/30/16) RIGHT Family History Other Heart disease Hypertension Social History (Updated 08/12/24 @ 15:54 by Sharan Weinstein) Smoking/Tobacco Use Status: Current every day Tobacco Type: cigarettes Smoking packs per day: 0.5 Smoking cigarettes per day: 10.0 Smoking risk assessment performed?: Yes Alcohol Intake: current Alcohol Intake frequency: a few times a month Alcohol type: beer Drug use: Occasionally Substance use type: marijuana Details: states drinks a 6 pack of beer over a 1 month time frame Household members: none Housing: house Number of Children: 1 current occupation: Disabled Pets and animals: No What type of physical activity do you participate in: walking Seatbelt use: sometimes Do you feel safe at home: Yes Do you feel safe in your relationship?: Yes Additional Social history: Lives with roommate [facility] outside of [facility] Results Last Vital Signs Temp 37 C 09/04/24 15:30 Pulse 96 H 09/04/24 15:30 Resp 20 09/04/24 15:30 BP 160/69 H 09/04/24 15:30 Pulse Ox 95 09/04/24 15:30 Labs 09/03/24 06:06 09/03/24 06:06
[2024-09-04] MEDS: Magnesium Citrate 300 ML BTL PO (19:07)
[2024-09-04] MEDS: Cefpodoxime 200 MG TAB PO (19:07)
[2024-09-04 19:55] VITALS: BP 150/79; PULSE 76; RESP 20; TEMP 36.8; O2SAT 97
[2024-09-04] MEDS: Enoxaparin 40 MG/0.4 ML SYR SC (21:03)
[2024-09-04] MEDS: QUEtiapine 100 MG TAB PO (21:04)
[2024-09-04] MEDS: Atorvastatin 20 MG TAB PO (21:04)
[2024-09-04] MEDS: Mirtazapine 15 MG TAB 7.5 MG PO (21:04)
[2024-09-04] MEDS: Bisacodyl 5 MG TABEC 10 MG PO (23:34)
[2024-09-05] MEDS: MORPHine IR 15 MG TAB 7.5 MG PO ×5 (04:08→20:20)
[2024-09-05] MEDS: Acetaminophen 500 MG TAB 1000 MG PO ×3 (06:01→20:20)
[2024-09-05 07:57] VITALS: BP 149/79; PULSE 80; RESP 18; TEMP 36.6; O2SAT 95
[2024-09-05] MEDS: Polyethylene Glycol 3350 17 GM PACKET PO ×2 (08:18→20:19)
[2024-09-05] MEDS: Cefpodoxime 200 MG TAB PO ×2 (08:19→18:01)
[2024-09-05] MEDS: Magnesium Chloride 64 MG TABCR PO (08:19)
[2024-09-05] MEDS: Sennosides/Docusate Sodium TAB 2 TAB PO ×2 (08:19→20:19)
[2024-09-05] MEDS: Doxycycline Hyclate 100 MG CAP PO ×2 (08:19→18:01)
[2024-09-05] MEDS: Omeprazole 20 MG CAPCR PO (08:20)
[2024-09-05] MEDS: Lisinopril 10 MG TAB PO (08:20)
[2024-09-05] MEDS: Bisacodyl 5 MG TABEC 10 MG PO (08:20)
[2024-09-05] MEDS: Escitalopram 20 MG TAB PO (08:20)
[2024-09-05] MEDS: Vitamins B Comp w/C TAB 1 TAB PO (08:20)
[2024-09-05] MEDS: lamoTRIgine 100 MG TAB PO ×2 (08:20→20:20)
[2024-09-05] MEDS: Meloxicam 15 MG TAB PO (08:20)
[2024-09-05] MEDS: Clopidogrel 75 MG TAB PO (08:20)
[2024-09-05] MEDS: predniSONE 20 MG TAB 40 MG PO (08:20)
--- NOTE | 2024-09-05 09:32 | PDOC.CMPRO ---
Date of service: 09/05/24 Time of Service: 09:32 Care Management Progress Note Progress Note Text Progress Note Text: Jimenez was sitting up in bed when CM met with him. He expressed his frustration with the need to continue to need hospitalization. During Jimenez's workup, a coin was identified in his colon on CT scan. He was also noted to have a large burden of stool. Efforts have been made for the past couple of days to help him move his bowels and pass the coin. He informed CM that he has had at least 4 large BMs today and at least that many yesterday. He added that he has never swallowed or inserted a coin and does not believe it is there. He stated that he does not know what is going on and is just anxious to be discharged so that he can start his radiation treatments. Jimenez will likely be discharged as soon as he is able to resolve the bowel issues. Discharge Potential Discharge Needs: PCP F/U Appt Anticipated Barriers to Discharge: None Identified Patient/Family Education Needs: Review discharge instructions, discuss Ask Me Three Transportation: Private vehicle Plan: Anticipate Jimenez will discharge home with resumption of home health services for RN, PT and [facility] when medically ready. He will follow up with his community providers and transport via RCT coordinated by CM. CM will follow and continue to support discharge needs. SDOH(Care Management) Screening Will the Patient Participate in the Screening?: Yes Do you worry about having a steady place to live?: no Problems where you live: no known problems In the past 12 months, have you had to go without electric, gas, oil or water in your home?: no Have you or anyone in your house had to go without enough food to eat?: no Has lack of transportation kept you from medical appointments or from doing things needed for daily living?: no Has anyone in your support network made you feel unsafe for any reason?: no Social Determinants of Health Comments(SDOH Details): poor historian
[2024-09-05] MEDS: Methylnaltrexone 12 MG/0.6 ML VIAL 8 MG SC (10:55)
[2024-09-05] MEDS: Magnesium Citrate 300 ML BTL PO (10:55)
--- NOTE | 2024-09-05 13:24 | W.PM.PROGNOT ---
Date of Service Date of service: 09/05/24 Time of Service: :24 Assessment and Plan Assessment and plan (1) Opioid-induced constipation: Status: Acute Assessment and plan: continue aggressive bowel management add relistor. (2) Pneumonia: Status: Resolved Assessment and plan: On room air?no additional oxygen supplementation required Was on doxycycline and ceftriaxone?transition to oral doxycycline and cefpodoxime (3) COPD (chronic obstructive pulmonary disease): Status: Chronic Assessment and plan: Continue home medicine regimen Home O2 at baseline; keep SPO2 > 88% Was on on prednisone at 50 mg daily?taper started and order sent to pharmacy As previous (4) Nephrostomy present: Status: Acute Assessment and plan: As previously noted the stent was placed 07/30 at [facility]; still patent continue to monitor I&O (5) Bladder malignancy: Status: Chronic Assessment and plan: Ongoing outpatient care: Palliative radiation treatment at [facility] to be started. (6) Pain: Status: Acute Assessment and plan: Chronic pain with worsening associated with bladder malignancy, T4 compression fracture. Seeing palliative. Fentanyl patch 12 mcg ongoing scheduled APAP ongoing Ongoing meloxicam scheduled from home Continue morphine IR, 7.5 mg every 4 hours PRN?seems effective no increased sedation noticed (7) Coronary artery disease: Assessment and plan: No exacerbation of symptoms. Negative troponins x 3 on admission , pleuritic pain initially has of now resolved Continue outpatient cardiac meds. (8) Compression fracture of T4 vertebra: Status: Acute Assessment and plan: Healing compression fx -continue morphine for pain adjust PRN Fentanyl patch initiated during stay and ongoing (9) Liver mass: Status: Acute Assessment and plan: -On admission CT, need to assess for metastases; but previous images mentioned spread to lymph nodes and pelvis. Not present on CT earlier in this month at . -Oncologist Dr. Santamaria noticed a foreign body on the CT. X-ray showed ongoing foreign body in the cecum. Patient denies ingesting a coin or rectal insertion. -Surgical consult initiated due to foreign body in cecum versus right rectal vault: Discussion with Dr. Gill and further imaging resulted in no findings of pneumoperitoneum or peripheral bowels. Large stool burden found and mag citrate ordered. Foreign body will most likely be expelled with increased bowel movements. Most likely to be ready for discharge in the morning. -MRI is best evaluation, but should be done at as they are able to given LRADs staging of liver lesions to better assess risk of malignancy. (10) Advanced care planning/counseling discussion: Status: Acute Assessment and plan: Outpatient follow-up with palliative on 09/09/2024 Continue pain management as above Remains full code Community connections CHW also seeing patient to help with social barriers. (11) DVT prophylaxis: Status: Acute Assessment and plan: Ongoing Lovenox due to high risk with CA and recent COVID (12) Foreign body in cecum: Status: Acute Assessment and plan: Seen on CT on admission constipation resolved but XR still showing foreign body in R rectum VS cecum Surgery consult: Discussion with Dr. Gill resulted on f/u specific imaging with results called by Dr. Robert ayala question of pneumoperitoneum or free nika in ABD. CT of the abdomen and pelvis completed as per Sx recommendation -No perforation, free air, pneumoperitoneum -Large stool burden -will get mag citrate Was NPO?resume diet IV pain meds discontinued resume oral medicine IV antibiotics discontinued resume oral therapy (13) Discharge planning issues: Status: Acute Assessment and plan: Discharge home with HH resumption when medically stable- most likely in a.m. Patient was to be discharged home on 09/04/2024 but delayed now d/t above findings Home health services on d/c Discussed with Dr. Sumner Subjective Subjective Patient reports: no new complaints, feels better, tolerating liquids well, tolerating a regular diet, bowel movement (still distended) and afebrile; denies shortness of breath Exam Const General: frail appearing Nutritional Appearance: cachectic Orientation: alert and awake [facility] Head: normal to inspection, normocephalic and atraumatic Mouth: oral mucosae normal Eyes General: appearance normal, both eyes and all related structures Chest Chest: normal inspection of the chest Resp Effort & Inspection: normal respiratory effort Cardio Rate: regular rate Rhythm: regular rhythm GI Inspection: distended Palpation: firm, no guarding and nontender Auscultation: normal bowel sounds Skin General skin exam: no rashes or lesions noted Neuro General: patient alert, patient awake and patient oriented x3 Objective Last Vital Signs Temp 36.6 C 09/05/24 07:57 Pulse 80 09/05/24 07:57 Resp 18 09/05/24 07:57 BP 149/79 H 09/05/24 07:57 Pulse Ox 95 09/05/24 07:57 Time Spent with Patient Time Spent with Patient: 35-49 minutes Time was spent: preparing to see the patient(eg.review tests), obtaining and/or reviewing separately otained hiistory, ordering medications,tests, procedures, indepentently interpreting results and counseling the patient
--- NOTE | 2024-09-05 14:26 | PT.INTREAT ---
PT Notes Visit Reasons: Pneumonia,Acute on Chronic Hypoxic Resp Failure, C Date: 09/05/2024 PRECAUTIONS: Fall. Standard. Activity as tolerated. SUBJECTIVE: Pt in bed when initially approached for afternoon sessipon, pt reports he barely recieved pain meds and still not taken effect, reports he would like to be re-approached 3mins later. pt agreeable to participating with therapy session 30mins later. OBJECTIVE: ? PAIN: generalized body malaise VITALS: closely monitored by nursing Therapeutic Activities 87322: Direct one-on-one instruction in dynamic activities to improve functional performance. ?? BED MOBILITY/TRANSFERS? Rolling L/R: supervision Supine-sit: ? supervision ? Sit-supine: ? supervision ? Sit-stand: ? supervision? Stand-sit: ??supervision ? Bed-Chair:? supervision? Chair-bed: supervision Provided skilled cues and instruction on performance and technique throughout. Gait Training [id number]: Direct one-on-one instruction and skilled instruction in: Employing an assistive device Modified weight-bearing status Movement sequencing Turning and movement with proper form Provided verbal cues for equipment management and technique Provided instruction in gait pattern Patient education regarding pacing and breathing techniques to maximize activity tolerance? GAIT? Assistive Device: ?? FWW? Weight bearing: FWB Assist: ?SBA ? Distance:?? 200'x2 ? Deviation: ? Slow brittanie, low step height,? short step length, Stoop forward posture ? STAIRS:? Step over step bilateral handrail SBA 6 steps 2x up/down, 4 steps 3x up/down? ASSESSMENT:?Pt had SOB which was addressed by doing deep breathing techniques, pt took seated rest break in between distances to avoid MEDEIROS. pt stayed in bed doing independent transfers and bed mobility. PLAN: Continue with balance training, global strengthening and general conditioning for improved safety, mobility and activity tolerance until pt is ready for DC. TREATMENT CODE/TIME: 76169s5 25mins ( 2:00-2:25pm)
--- NOTE | 2024-09-05 14:54 | DI.RAD_ITS ---
Exam(s) XR ABDOMEN FLAT UPRIGHT EXAM: XR ABDOMEN FLAT UPRIGHT CLINICAL HISTORY: position of foreign body. TECHNIQUE: 2D digital imaging was performed. COMPARISON: CT CT ABDOMEN PELVIS WO from 09/04/2024 CR XR ABDOMEN FLAT LATERAL from 09/04/2024 FINDINGS: Two views-supine and upright Again noted is a left-sided nephrostomy tube. Multiple air-filled bowel loops are noted in the abdomen pelvis. The metallic Mcgee density is in th e right iliac fossa, similar position to yesterday and probably in the cecum. There is a new oval well-defined density in the right upper quadrant measuring 1.4 by is 1.0 cm. Thi s is probably an undigested pill as was not present on yesterday's images and there are no gallstones evident on recent CT scan. Vascular calcification is again noted in the abdominal aorta and iliac arteries. IMPRESSION: As above. Position of the radiopaque coin remains in the right iliac fossa, probably within the cecu m. DATA REPOSITORY: RADIATION DOSE DELIVERED:
[2024-09-05 15:44] VITALS: BP 155/75; PULSE 89; RESP 15; TEMP 36.2; O2SAT 96
[2024-09-05] MEDS: fentaNYL 12 MCG PATCH TD (16:36)
[2024-09-05] MEDS: Fluticasone NASAL SPRAY 16 GM BTL NS (20:19)
[2024-09-05] MEDS: Mirtazapine 15 MG TAB 7.5 MG PO (20:19)
[2024-09-05] MEDS: QUEtiapine 100 MG TAB PO (20:20)
[2024-09-05] MEDS: Atorvastatin 20 MG TAB PO (20:20)
[2024-09-05] MEDS: Enoxaparin 40 MG/0.4 ML SYR SC (20:22)
[2024-09-05 23:30] VITALS: BP 114/87; PULSE 81; RESP 15; TEMP 36.4; O2SAT 94
[2024-09-06] MEDS: MORPHine IR 15 MG TAB 7.5 MG PO ×2 (00:47→08:27)
--- NOTE | 2024-09-06 02:48 | NUR.NOTE ---
Pt is on prophylactic DVT protocol with lovenox. He has multiple scabbed areas and bruising to bilateral upper extremities. Pt scratched his arm this shift and opened a few areas. One area would not stop bleeding. cleansed wound and applied pressure dressing. Full bed change required due to small-moderate amount of blood on bedding and clothing. Pt also instructed to hold pressure for a few minutes to try to increase clotting time.
[2024-09-06] MEDS: Acetaminophen 500 MG TAB 1000 MG PO (06:13)
[2024-09-06 07:40] VITALS: BP 150/68; PULSE 82; RESP 14; TEMP 37.4; O2SAT 97
[2024-09-06] MEDS: Polyethylene Glycol 3350 17 GM PACKET PO (08:30)
[2024-09-06] MEDS: Fluticasone NASAL SPRAY 16 GM BTL NS (08:31)
[2024-09-06] MEDS: Doxycycline Hyclate 100 MG CAP PO (08:32)
[2024-09-06] MEDS: Clopidogrel 75 MG TAB PO (08:32)
[2024-09-06] MEDS: Bisacodyl 5 MG TABEC 10 MG PO (08:32)
[2024-09-06] MEDS: Sennosides/Docusate Sodium TAB 2 TAB PO (08:32)
[2024-09-06] MEDS: Omeprazole 20 MG CAPCR PO (08:32)
[2024-09-06] MEDS: Cefpodoxime 200 MG TAB PO (08:33)
[2024-09-06] MEDS: Magnesium Chloride 64 MG TABCR PO (08:33)
[2024-09-06] MEDS: predniSONE 20 MG TAB 40 MG PO (08:33)
[2024-09-06] MEDS: Vitamins B Comp w/C TAB 1 TAB PO (08:33)
[2024-09-06] MEDS: Meloxicam 15 MG TAB PO (08:33)
[2024-09-06] MEDS: Lisinopril 10 MG TAB PO (08:33)
[2024-09-06] MEDS: lamoTRIgine 100 MG TAB PO (08:33)
[2024-09-06] MEDS: Escitalopram 20 MG TAB PO (08:33)
--- NOTE | 2024-09-06 09:46 | PT.INTREAT ---
PT Notes Visit Reasons: Pneumonia,Acute on Chronic Hypoxic Resp Failure, C Inpatient Physical Therapy Treatment Note [facility] Date: PRECAUTIONS:Fall. Standard. Activity as tolerated. SUBJECTIVE: Pt reports that he did not sleep well. OBJECTIVE: Therapeutic Activities (47545l[1]): Direct one-on-one instruction in dynamic activities to improve functional performance. ? BED MOBILITY/TRANSFERS? Sit-supine: I ? Sit-stand: I? Stand-sit: I ? Provided skilled cues and instruction on performance and technique throughout. Gait Training ([id number][]): Direct one-on-one instruction and skilled instruction in: ? GAIT? Assistive Device: FWW? Weight Full Assist: CGA ? Distance:? Small loop x 3 ? ASSESSMENT:? Pt did not require any seated or standing rests during ambulation and completed pursed lip breathing without cues. PLAN: Cont as per PT POC. TREATMENT CODE/TIME: 9:30-9:45 (15) TA DISCHARGE RECOMMENDATION:
--- NOTE | 2024-09-06 11:22 | DSE_ITS ---
Date of service: 09/06/24 Time of Service: 11:22 DS: Diagnosis Discharge Diagnosis (1) Opioid-induced constipation: Status: Acute Asessment and Plan: Continue aggressive bowel management (2) Pneumonia: Status: Resolved Asessment and Plan: Resolved will complete outpatient course of antibiotics for 3 more days (3) COPD (chronic obstructive pulmonary disease): Status: Chronic Asessment and Plan: taper steroids (4) Nephrostomy present: Status: Acute Asessment and Plan: Draining without difficulty (5) Bladder malignancy: Status: Chronic Asessment and Plan: To be followed outpatient by oncology at [facility] (6) Pain: Status: Acute (7) Coronary artery disease: (8) Compression fracture of T4 vertebra: Status: Acute Asessment and Plan: Better managed on fentanyl patch which he will be discharged on (9) Liver mass: Status: Acute (10) Foreign body in cecum: Status: Acute Asessment and Plan: Will need referral to [facility] for colonoscopy for retrieval of foreign body prior to MRI. 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 Workup in the ED showed leukocytosis at 14.70, an hemoglobin of 11.8, troponin of 58-53 with and EKG that was negative for ischemic findings. CT Chest/abd/pelvis showed a right lower lobe pneumonia with mucous plugging; a large quantity of stool throughout the colon and reported ingested coin noted within colon in low pelvis. Moderate left hydronephrosis seen with nephrostomy tube no longer position within the renal pelvis but within the mid pole aydin. Stable appearance irregular bladder wall thickening/bladder mass. New and increasing liver lesions consistent with metastases seen. The patient was admitted to the hospitalist service for further evaluation and management. During the stay the patient was treated with doxycycline and ceftriaxone and well as prednisone with improvement of respiratory symptoms. He will be discharge on a long prednisone taper and a short course of doxycycline and cefpodoxime. The patient's constipation linked to opioids usage was treated with Relastor, bisacodyl suppository, miralax, docusate- senna with effectiveness. The patient will be discharged on an increased regimen of bowel management medicines. The foreign object in the patient's bowel was not expelled; thought to be a coin but the patient denied ingesting or rectally inserting a coin today. Surgical consultation was initiated with negative findings for pneumoperitoneum as per CT but large stool burden for which patient will receive mag citrate. Pain control was achieved with fentanyl patch and oral morphine regimen. Fentanyl patch script sent to pharmacy with further orders by outpatient provider. The patient will be discharged home with home health services resumption of PT, nursing, medical device sales consultant; in addition the patient will benefit from home health occupational therapy. Physical therapy recommended the use of a shower chair to minimize shortness of breath and facilitate independence in self care performance while decreasing risk for falls. The patient will need to see his primary care practitioner within 7 days of discharge. The patient will also need to contact his oncologist Dr. Santamaria regarding the continuation/initiation of his palliative radiotherapy. As per admission CT, needs to assess for metastases.. Findings were not present on [place] [facility] MRI is best evaluation, but should be done at as they are able to given LRADs staging of liver lesions to better assess risk of malignancy. Discussed with Dr. Sumner Home Meds and New Rx's Prescriptions: New doxycycline hyclate 100 mg Capsule 100 mg PO BID Qty: 6 0RF fentanyl 12 mcg/hr Patch 72 Hour 12 mcg transdermal Q72H Qty: 3 0RF polyethylene glycol 3350 17 gram Powder In Packet 17 g PO BID Qty: 60 0RF prednisone 20 mg Tablet See Taper PO DAILY Qty: 15 0RF Taper: Prednisone 20mg taper 40 mg Daily for 3 Days and 0 Hour 30 mg Daily for 3 Days and 0 Hour 20 mg Daily for 3 Days and 0 Hour 10 mg Daily for 3 Days and 0 Hour Rx Instructions: TAPER: 40 mg daily for 3 Days; 30 mg daily for 3 Days; 20 mg daily for 3 Days; 10 mg daily for 3 Days sennosides-docusate sodium [Colace 2-In-1] 8.6-50 mg Tablet 1 tab PO BID Qty: 60 0RF cefpodoxime 200 mg tablet 200 mg PO BID Qty: 6 0RF Rx Instructions: must administer with a meal/food Continued Oxygen 2 l inhalation .exertion Qty: 1 0RF Rx Instructions: Use 2LPM with exertion escitalopram oxalate 20 mg tablet 20 mg PO DAILY Qty: 1 0RF meloxicam 15 mg tablet 15 mg PO DAILY clopidogrel [Plavix] 75 mg tablet 75 mg PO DAILY Qty: 90 3RF lamotrigine [Lamictal] 100 mg tablet 100 mg PO BID lisinopril 10 mg tablet 10 mg PO DAILY Qty: 90 0RF omeprazole 20 mg capsule,delayed release(DR/EC) 20 mg PO DAILY Qty: 90 0RF vitamin B complex-folic acid 0.4 mg tablet 1 tab PO DAILY fluticasone propionate 50 mcg/actuation spray,suspension 1 spray intranasal BID Patient Comments: pt states not taking 05/28/23 Rx Instructions: administer into each nostril Isabelatri Aerosphere 160-9-4.8 mcg/actuation HFA aerosol inhaler See Rx Instructions .ROUTE .COMPLEX Qty: 32.1 12RF Dose Instruction: INHALE TWO PUFFS BY MOUTH TWICE A DAY Rx Instructions: INHALE TWO PUFFS BY MOUTH TWICE A DAY ipratropium-albuterol 0.5 mg-3 mg(2.5 mg base)/3 mL solution for nebulization See Rx Instructions .ROUTE .COMPLEX Qty: 30 11RF Dose Instruction: USE 1 VIAL IN NEBULIZER DAILY - for rescue Rx Instructions: USE 1 VIAL IN NEBULIZER DAILY - for rescue albuterol sulfate 90 mcg/actuation HFA aerosol inhaler See Rx Instructions .ROUTE .COMPLEX Qty: 8.5 12RF Dose Instruction: INHALE TWO PUFFS BY MOUTH EVERY 6 HOURS NEEDED FOR SHORTNESS OF BREATH OR WHEEZING Rx Instructions: INHALE TWO PUFFS BY MOUTH EVERY 6 HOURS NEEDED FOR SHORTNESS OF BREATH OR WHEEZING trazodone 100 mg tablet 100 mg PO QHS morphine 15 mg tablet See Rx Instructions PO Q6H MDD 4 pill (60 mg) of short acting PRN (Reason: pain) Qty: 60 0RF Rx Instructions: STart with a HALF of a tablet every 4 hours as needed for pain management (use in addition to regular LONG ACTING MORPHINE). CAn increase to a WHOLE pill every 4 hours as needed. orally every 6 hours PRN; quetiapine 100 mg tablet 100 mg PO HS Patient Comments: TAKE ONE TABLET BY MOUTH EVERY EVENING morphine 15 mg tablet extended release 15 mg PO Q12H atorvastatin 20 mg Tablet 20 mg PO DAILY benzonatate 100 mg Capsule 100 mg PO TID PRN PRN (Reason: Cough) Qty: 30 0RF bisacodyl 10 mg suppository 10 mg FL DAILY PRNQty: 12 2RF Changed acetaminophen 500 mg capsule 1,000 mg PO Q8H PRN (Reason: fever) Qty: 100 2RF Rx Instructions: OK to take with oxycodone 5mg Discontinued polyethylene glycol 3350 [Miralax] 17 gram/dose powder 17 g PO DAILY Qty: 510 4RF fentanyl 12 mcg/hr patch 72 hour 1 patch transdermal Q72H MDD 1 patch Qty: 5 0RF Patient Comments: states he does not have one docusate sodium [Colace] 100 mg capsule 100 mg PO BID Qty: 20 0RF Discharge Instructions Instructions: Pneumonia in adults, Constipation in adults Additional Instructions: finish antibiotics as directed taper steroids. Referrals: LING LEBLANC MOTHER REPAIRER [Primary Care Provider] - (F/u within 7 days of discharge please) Bethany Byrd MD [ [facility] STAFF PHYSICIAN] - 09/09/24 2:00 pm (Dr. Byrd will call to confirm home visit) Activity:: Activity as Tolerated Equipment/Supplies:: Walker Diet:: Heart healthy Discharge Orders Discharge Orders: Discharge Order (Routine); Ordered 09/06/24 Ordered By: Sherita Garcia DS: Summary Time Spent with Patient providing and/or coordinating discharge services: Greater than 30 minutes Status at Discharge Functional status at discharge: independent ambulation Overall status at discharge: patient is progressing back to baseline Mental Status: mental status grossly normal Speech and Movement: speech and movement normal Mood: congruent mood Affect: normal affect Quality:SDOH Health Related Social Needs: Health related social needs material hardship(utilitie s)(Z59.87) Exam Const General: frail appearing Nutritional Appearance: cachectic Orientation: alert and awake HENMT Head: normal to inspection, normocephalic and atraumatic Mouth: oral mucosae normal Eyes General: appearance normal, both eyes and all related structures Chest Chest: normal inspection of the chest Resp Effort & Inspection: normal respiratory effort Cardio Rate: regular rate Rhythm: regular rhythm GI Inspection: distended Palpation: firm, no guarding and nontender Auscultation: normal bowel sounds Skin General skin exam: no rashes or lesions noted Neuro General: patient alert, patient awake and patient oriented x3 Psych Mental Status: mental status grossly normal Speech and Movement: speech and movement normal Mood: congruent mood Affect: normal affect DS: Data Vitals/I&O Vitals and I&O: Vital Signs Temperature 37.4 C 09/06/24 07:40 Temperature Source Tympanic 09/06/24 07:40 Pulse 82 09/06/24 07:40 Pulse Rhythm Regular 08/29/24 17:43 Pulse 67 08/29/24 16:31 Respiratory Rate 14 09/06/24 07:40 Respiratory Effort Pursed Lip, Incrsd Work of Breathing 08/29/24 17:43 Respiratory Depth Normal 08/29/24 17:43 Respiratory Pattern Normal 08/29/24 17:43 Blood Pressure 150/68 H 09/06/24 07:40 Blood Pressure Mean 90 08/29/24 16:30 Blood Pressure Position Sitting 08/29/24 12:36 Pulse Oximetry 97 09/06/24 07:40 Oxygen Delivery Method Room Air 09/06/24 07:40 Oxygen Flow Rate 0 09/06/24 07:40 Fraction of Inspired Oxygen (FIO2) 2 08/30/24 11:20 Pain Level 7 09/06/24 08:27 Comment RN notified of vitals 09/05/24 15:44 Intake & Output 09/05/24 09/05/24 09/06/24 11:59 23:59 11:59 Intake Total 360 / 1020 660 / 1020 150 / 150 Output Total 1300 / 1525 225 / 1525 1225 / 1225 Balance -940 / -505 435 / -505 -1075 / -1075 Weight 45.841 kg 45.4 kg Intake: Oral 360 / 1020 660 / 1020 Injectate 150 / 150 Left Back 150 / 150 Output: Drainage 125 / 125 Left Back 125 / 125 Urine 1300 / 1525 225 / 1525 1100 / 1100 Other: Urine Color Yellow Yellow Yellow Urine Appearance Clear Clear Clear Urine Odor None Normal Normal Comment nephrostomy pt urostomy put out 125 and pt voided large amount of urine in toilet. pt voided x1 Stool Size Moderate Moderate Small Stool Characteristics Soft Liquid Soft Formed Brown PFSH All Active Problems (Updated 09/05/24 @ 13:44 by Sherita Garcia NP) Abnormal finding on diagnostic imaging of testicle (Acute) Foreign body in cecum (Acute) Discharge planning issues (Acute) Exercise hypoxemia (Acute) COPD exacerbation (Acute) Acute hyperkalemia (Acute) DVT prophylaxis (Acute) Bladder malignancy (Chronic) locally invasive 8.5 cm mass resected 07/29/20[place] [facility]. L hydronephrosis (nephrostomy placed at time of surgery) Urothelial cancer (Acute) locally invasive 8.5 cm mass partially resected 07/29/2024 [facility] Fry[place]. Bebeto hydronephrosis (nephrostomy placed at time of surgery). Positive pelvic lymph nodes. Dr. Santamaria, palliative RT planned Liver mass (Acute) Compression fracture of T4 vertebra (Acute) Opioid-induced constipation (Acute) Pneumonia due to COVID-19 virus (Acute) Nephrostomy present (Acute) Pain (Acute) Multifactorial: From bladder tumor? From nephrostomy tube? Started on opiates July 2024 while at [facility] [facility] palliative care team will manage Frailty syndrome in geriatric patient (Acute) Financial insecurity (Acute) Advanced care planning/counseling discussion (Acute) Palliative care encounter (Acute) Weight loss (Acute) Chronic fatigue (Acute) Pulmonary cachexia due to chronic obstructive pulmonary disease (Acute) Night sweats (Acute) Unintentional weight loss (Acute) MAKI (acute kidney injury) (Acute) Lumbar transverse process fracture (Acute) Fall (Acute) Pleural nodule (Acute) Ataxia (Acute) Dizziness (Acute) Gait abnormality (Acute) Rib fractures (Acute) Memory loss (Acute) Stroke (Chronic) Post concussion syndrome (Acute) Sacroiliac joint pain (Chronic) COPD (chronic obstructive pulmonary disease) (Chronic) Medical History (Updated 09/05/24 @ 13:44 by Sherita Garcia NP) Arthritis of right acromioclavicular joint (06/19/16) Hx of dizziness H/O: stroke Spine injury Anxiety with depression Bipolar 1 disorder Insomnia H/O onychomycosis Smoker Eczema Allergic rhinitis Alcohol abuse In remission GERD (gastroesophageal reflux disease) Chronic pain HTN (hypertension) COPD (chronic obstructive pulmonary disease) Coronary artery disease HCAP (healthcare-associated pneumonia) Surgical History (Updated 08/12/24 @ 15:53 by Sharan Weinstein) Nephrostomy status left, 07/30/24 [facility] History of shoulder surgery (06/30/16) H/O cystoscopy H/O transurethral resection of bladder tumor (TURBT) History of coronary artery stent placement History of tonsillectomy Rotator Cuff Repair (06/30/16) RIGHT Family History Other Heart disease Hypertension Social History (Updated 08/12/24 @ 15:54 by Sharan Weinstein) Smoking/Tobacco Use Status: Current every day Tobacco Type: cigarettes Smoking packs per day: 0.5 Smoking cigarettes per day: 10.0 Smoking risk assessment performed?: Yes Alcohol Intake: current Alcohol Intake frequency: a few times a month Alcohol type: beer Drug use: Occasionally Substance use type: marijuana Details: states drinks a 6 pack of beer over a 1 month time frame Household members: none Housing: house Number of Children: 1 current occupation: Disabled Pets and animals: No What type of physical activity do you participate in: walking Seatbelt use: sometimes Do you feel safe at home: Yes Do you feel safe in your relationship?: Yes Additional Social history: Lives with roommate in [facility] outside of [facility] Time Spent with Patient Time Spent with Patient: 45-69 minutes Time was spent: preparing to see the patient(eg.review tests), obtaining and/or reviewing separately otained hiistory, ordering medications,tests, procedures, indepentently interpreting results, counseling the patient and care coordination
--- NOTE | 2024-09-06 16:58 | PDOC.CMDIS ---
Date of service: 09/06/24 Time of Service: 12:30 LACE Index Scoring Tool Questions: Length of Stay (in days): 7 - 13 Was the patient admitted via the E.D.?: Yes Comorbidities: Cerebrovascular Disease, Chronic Pulmonary Disease and Any Tumor E.D. Visits: 4 Answers: Total Score: 17 Risk of Readmission: High Risk Care Management Discharge Plan Reason for Hospitalization: Pneumonia Discharge Plan: Jimenez was discharged home earlier today with orders for antibiotics, pain medication and bowel regime. He will f/u with his community providers and continue per his plan of care. Jimenez will have a resumption of his HH services, PT, RN and INSURANCE CLAIM APPROVER. Jimenez was transported home via RCT. CM ensured his roommate would be home to help, if needed. Patient/Family Education Needs: Review of discharge instructions, activity, limitations, f/u plan and discuss ask me 3. Services Needed at Discharge: Home Health Care Services (resumption of PT, RN and INSURANCE CLAIM APPROVER) SDOH Health Related Social Needs: Health related social needs material hardship(utilities)(Z59.87)
== END 2024-09-06 12:25 | disposition home health service (06) | DRG 190 ==
LOC: ER 17:03 → MS 17:40
PROVIDERS: Nurse Practitioner Acute Care; Nurse Practitioner Family; Admitting Provider Family Medicine; Emergency Provider Student in an Organized Health Care Education/Training Program; PCP Nurse Practitioner Family; Visit Provider Family Medicine
DX: J44.0 Chronic obstructive pulmonary disease with (acute) lower respiratory infection (principal); J18.9 Pneumonia, unspecified organism; C77.5 Secondary and unspecified malignant neoplasm of intrapelvic lymph nodes; M48.54XA Collapsed vertebra, not elsewhere classified, thoracic region, initial encounter for fracture; T17.590A Other foreign object in bronchus causing asphyxiation, initial encounter; R64 Cachexia; Z68.1 Body mass index [BMI] 19.9 or less, adult; N13.39 Other hydronephrosis; C78.7 Secondary malignant neoplasm of liver and intrahepatic bile duct; N17.9 Acute kidney failure, unspecified; J44.1 Chronic obstructive pulmonary disease with (acute) exacerbation; I25.10 Atherosclerotic heart disease of native coronary artery without angina pectoris; K59.03 Drug induced constipation; T40.2X5A Adverse effect of other opioids, initial encounter; Z99.81 Dependence on supplemental oxygen; Z93.6 Other artificial openings of urinary tract status; F31.9 Bipolar disorder, unspecified; K21.9 Gastro-esophageal reflux disease without esophagitis; I10 Essential (primary) hypertension; C67.9 Malignant neoplasm of bladder, unspecified; E87.5 Hyperkalemia; R54 Age-related physical debility; Z59.89 Other problems related to housing and economic circumstances; R26.9 Unspecified abnormalities of gait and mobility; Z86.73 Personal history of transient ischemic attack (TIA), and cerebral infarction without residual deficits; R41.3 Other amnesia; F17.210 Nicotine dependence, cigarettes, uncomplicated; Z79.899 Other long term (current) drug therapy; G89.3 Neoplasm related pain (acute) (chronic); I25.2 Old myocardial infarction; T18.4XXA Foreign body in colon, initial encounter
CPT/HCPCS: 00123; 36415; 71275; 73521; 74177; 80048; 80053; 82805; 83690; 84145; 87637; 92526; 92610; 93005; 94640; 96365; 96375; 97110; 97162; 97530; 99222; 99291; J1650; 74019; 74176; 80320; 83605; 83735; 83880; 84484; 85025; 86140; 93010; 94664; 94667; 94760; 99231; 99232; 99233; 99239; J0696; J1171; J1815; J2212; J2919; J3475; J3490; J7512; J7613; J7620

== ENCOUNTER 2024-09-08 16:55 | Emergency (ER) | payer MEDICARE, MEDICAID, SELFPAY ==
[2024-09-08] VITALS (17 sets, daily range): BP systolic 98–158; BP diastolic 40–130; PULSE 80–102; RESP 11–24; TEMP 36.9; O2SAT 92–98
--- NOTE | 2024-09-08 16:58 | ED.GENADUL_ITS ---
Discharge Plan Disposition Patient Disposition: Home Discharge Details Clinical Impression: Encounter for medical screening examination Primary Care Provider: [facility] ED Provider: Sharan Reza [place] Meds and New Rx's Prescriptions: Continued Oxygen 2 l inhalation .exertion Qty: 1 0RF Rx Instructions: Use 2LPM with exertion escitalopram oxalate 20 mg tablet 20 mg PO DAILY Qty: 1 0RF meloxicam 15 mg tablet 15 mg PO DAILY clopidogrel [Plavix] 75 mg tablet 75 mg PO DAILY Qty: 90 3RF lamotrigine [Lamictal] 100 mg tablet 100 mg PO BID lisinopril 10 mg tablet 10 mg PO DAILY Qty: 90 0RF omeprazole 20 mg capsule,delayed release(DR/EC) 20 mg PO DAILY Qty: 90 0RF vitamin B complex-folic acid 0.4 mg tablet 1 tab PO DAILY fluticasone propionate 50 mcg/actuation spray,suspension 1 spray intranasal BID Patient Comments: pt states not taking 05/28/23 Rx Instructions: administer into each nostril Breztri Aerosphere 160-9-4.8 mcg/actuation HFA aerosol inhaler See Rx Instructions .ROUTE .COMPLEX Qty: 32.1 12RF Dose Instruction: INHALE TWO PUFFS BY MOUTH TWICE A DAY Rx Instructions: INHALE TWO PUFFS BY MOUTH TWICE A DAY ipratropium-albuterol 0.5 mg-3 mg(2.5 mg base)/3 mL solution for nebulization See Rx Instructions .ROUTE .COMPLEX Qty: 30 11RF Dose Instruction: USE 1 VIAL IN NEBULIZER DAILY - for rescue Rx Instructions: USE 1 VIAL IN NEBULIZER DAILY - for rescue albuterol sulfate 90 mcg/actuation HFA aerosol inhaler See Rx Instructions .ROUTE .COMPLEX Qty: 8.5 12RF Dose Instruction: INHALE TWO PUFFS BY MOUTH EVERY 6 HOURS NEEDED FOR SHORTNESS OF BREATH OR WHEEZING Rx Instructions: INHALE TWO PUFFS BY MOUTH EVERY 6 HOURS NEEDED FOR SHORTNESS OF BREATH OR WHEEZING trazodone 100 mg tablet 100 mg PO QHS morphine 15 mg tablet See Rx Instructions PO Q6H MDD 4 pill (60 mg) of short acting PRN (Reason: pain) Qty: 60 0RF Rx Instructions: STart with a HALF of a tablet every 4 hours as needed for pain management (use in addition to regular LONG ACTING MORPHINE). CAn increase to a WHOLE pill every 4 hours as needed. orally every 6 hours PRN; quetiapine 100 mg tablet 100 mg PO HS Patient Comments: TAKE ONE TABLET BY MOUTH EVERY EVENING morphine 15 mg tablet extended release 15 mg PO Q12H doxycycline hyclate 100 mg Capsule 100 mg PO BID Qty: 6 0RF fentanyl 12 mcg/hr Patch 72 Hour 12 mcg transdermal Q72H Qty: 3 0RF polyethylene glycol 3350 17 gram Powder In Packet 17 g PO BID Qty: 60 0RF prednisone 20 mg Tablet See Taper PO DAILY Qty: 15 0RF Taper: Prednisone 20mg taper 40 mg Daily for 3 Days and 0 Hour 30 mg Daily for 3 Days and 0 Hour 20 mg Daily for 3 Days and 0 Hour 10 mg Daily for 3 Days and 0 Hour Rx Instructions: TAPER: 40 mg daily for 3 Days; 30 mg daily for 3 Days; 20 mg daily for 3 Days; 10 mg daily for 3 Days sennosides-docusate sodium [Colace 2-In-1] 8.6-50 mg Tablet 1 tab PO BID Qty: 60 0RF acetaminophen 500 mg capsule 1,000 mg PO Q8H PRN (Reason: fever) Qty: 100 2RF Rx Instructions: OK to take with oxycodone 5mg cefpodoxime 200 mg tablet 200 mg PO BID Qty: 6 0RF Rx Instructions: must administer with a meal/food atorvastatin 20 mg Tablet 20 mg PO DAILY benzonatate 100 mg Capsule 100 mg PO TID PRN PRN (Reason: Cough) Qty: 30 0RF bisacodyl 10 mg suppository 10 mg [place] DAILY PRNQty: 12 2RF Discharge Instructions Additional Instructions: You are seen in the emergency department. Your exam showed no sign of opiate toxidrome. If you have any concerns please return to the emergency department. If you develop chest pain or shortness of breath please return to the emergency department. HPI General Date/Time Provider Initiated Documentation: 09/08/24 16:58 . HPI Narrative: MDM This is an elderly normothermic and not tachycardic 69-year-old male with invasive urothelial carcinoma and reported concern for opiate overdose but no signs of opiate toxidrome on exam. Given no abdominal pain I did not obtain CT scan of the patient's abdomen. Given no chest pain I did not obtain chest x- ray. No pain out of proportion to suggest necrotizing soft tissue infection. His exam was notable for mild myosis however given his opiate use this is not an unexpected finding. No dysuria or frequency so my suspicion is low for UTI. Not altered and no signs of trauma to head so no indication for CT head. I considered sepsis however the patient is not meeting SIRS criteria so I did not order lactate blood cultures nor treat empirically with IV antibiotics. Patient I discussed that he should return to the ED if he developed shortness of breath chest pain or had any other concerns. He was at his baseline 2 L nasal cannula. He has nontender bilateral upper and lower extremities so I am not concerned for pathological fracture. Patient reported that he had not been down on the ground for prolonged period of time so I am not suspicious for rhabdomyolysis. We discussed that he should return to the ED if you develop shortness of breath any pain or could not eat or drink. He understood his return indications. I advised PCP follow-up as needed next week. He was discharged with an empiric trial of expectant outpatient management. HPI This is a 69-year-old male with a history of invasive urothelial cancer that is metastatic to the emergency department via EMS in the setting of concern for possible opiate overdose. Patient was reportedly found on the floor by his roommate. He denies taking any excess opiates. He denies nausea vomiting chest pain shortness of breath. No dysuria nor frequency. No nausea nor vomiting. No fevers. Exam General: Cachectic elderly-appearing in no acute distress speaking in complete sentences. Head: Normocephalic, atraumatic. Eye: Extraocular eye movements intact. No conjunctival injection. No scleral icterus. Pupils equal reactive 2 to 1 mm. Ear, nose, mouth, throat: Grossly normal inspection. Normal voice, handling secretions normally.No hemotympanum bilaterally. No septal hematoma. Neck: Trachea midline. Cardiovascular: Well-perfused distal extremities. Regular rate and rhythm. Respiratory: Nonlabored respiration. Saturating well on 2 L nasal cannula. Gastrointestinal: Nondistended abdomen. Soft nontender. Musculoskeletal: No edema. Moving all 4 extremities spontaneously. Skin: Normal for age and race, grossly normal temperature and turgor. No acute rash. Neurologic: Alert and appropriate, no apparent acute deficits. GCS 15. Psychiatric: Mood and manner are appropriate. Grooming and personal hygiene are appropriate. Related Data Home Medications ?Medication ?Instructions ?Recorded ?Confirmed lisinopril 10 mg tablet 10 mg PO DAILY #90 tabs 08/19/18 09/08/24 omeprazole 20 mg capsule,delayed 20 mg PO DAILY #90 caps 08/19/18 09/08/24 release meloxicam 15 mg tablet 15 mg PO DAILY 01/27/19 09/08/24 atorvastatin 20 mg tablet 20 mg PO DAILY 04/29/20 09/08/24 Oxygen 2 l inhalation .exertion #1 supp 01/22/23 09/08/24 fluticasone propionate 50 1 spray intranasal BID 04/04/23 09/08/24 mcg/actuation nasal spray,suspension vitamin B complex-folic acid 0.4 1 tab PO DAILY 04/04/23 09/08/24 mg tablet clopidogrel 75 mg tablet (Plavix) 75 mg PO DAILY #90 tabs 08/23/23 09/08/24 lamotrigine 100 mg tablet 100 mg PO BID 10/23/23 09/08/24 (Lamictal) budesonide 160 mcg-glycopyr 9 See Rx Instructions .Route 11/13/23 09/08/24 mcg-formot 4.8 mcg/actuation HFA .COMPLEX #32.1 grams inhaler ([employer]) escitalopram oxalate 20 mg tablet 20 mg PO DAILY #1 tab 12/04/23 09/08/24 ipratropium 0.5 mg-albuterol 3 mg See Rx Instructions .Route 12/28/23 09/08/24 (2.5 mg base)/3 mL nebulization .COMPLEX #30 ea soln albuterol sulfate 90 mcg/actuation See Rx Instructions .Route 03/16/24 09/08/24 aerosol inhaler .COMPLEX #8.5 grams trazodone 100 mg tablet 100 mg PO QHS 08/04/24 09/08/24 quetiapine 100 mg tablet 100 mg PO HS 08/06/24 09/08/24 morphine 15 mg immediate release See Rx Instructions PO Q6H PRN 08/12/24 09/08/24 tablet pain #60 tabs benzonatate 100 mg capsule 100 mg PO TID PRN PRN Cough #30 08/14/24 09/08/24 caps bisacodyl 10 mg rectal suppository 10 mg [place] DAILY PRN #12 ea 08/14/24 09/08/24 morphine 15 mg tablet,extended 15 mg PO Q12H 08/29/24 09/08/24 release acetaminophen 500 mg capsule 1,000 mg (2 x 500 mg) PO Q8H PRN 09/04/24 09/08/24 fever #100 caps cefpodoxime 200 mg tablet 200 mg PO BID #6 tabs 09/04/24 09/08/24 doxycycline hyclate 100 mg capsule 100 mg PO BID #6 caps 09/04/24 09/08/24 fentanyl 12 mcg/hr transdermal 12 mcg transdermal Q72H #3 ea 09/04/24 09/08/24 patch polyethylene glycol 3350 17 gram 17 g PO BID #60 ea 09/04/24 09/08/24 oral powder packet prednisone 20 mg tablet See Taper PO DAILY #15 tabs 09/04/24 09/08/24 sennosides 8.6 mg-docusate sodium 1 tab PO BID #60 tabs 09/04/24 09/08/24 50 mg tablet (Colace 2-In-1) Previous Rx's ?Medication ?Instructions ?Recorded lisinopril 10 mg tablet 10 mg PO DAILY #90 tabs 08/19/18 omeprazole 20 mg capsule,delayed 20 mg PO DAILY #90 caps 08/19/18 release Oxygen 2 l inhalation .exertion #1 supp 01/22/23 clopidogrel 75 mg tablet (Plavix) 75 mg PO DAILY #90 tabs 08/23/23 budesonide 160 mcg-glycopyr 9 See Rx Instructions .Route 11/13/23 mcg-formot 4.8 mcg/actuation HFA .COMPLEX #32.1 grams inhaler ([employer] Aerosphere) escitalopram oxalate 20 mg tablet 20 mg PO DAILY #1 tab 12/04/23 ipratropium 0.5 mg-albuterol 3 mg See Rx Instructions .Route 12/28/23 (2.5 mg base)/3 mL nebulization .COMPLEX #30 ea soln albuterol sulfate 90 mcg/actuation See Rx Instructions .Route 03/16/24 aerosol inhaler .COMPLEX #8.5 grams morphine 15 mg immediate release See Rx Instructions PO Q6H PRN 08/12/24 tablet pain #60 tabs benzonatate 100 mg capsule 100 mg PO TID PRN PRN Cough #30 08/14/24 caps bisacodyl 10 mg rectal suppository 10 mg WI DAILY PRN #12 ea 08/14/24 acetaminophen 500 mg capsule 1,000 mg (2 x 500 mg) PO Q8H PRN 09/04/24 fever #100 caps cefpodoxime 200 mg tablet 200 mg PO BID #6 tabs 09/04/24 doxycycline hyclate 100 mg capsule 100 mg PO BID #6 caps 09/04/24 fentanyl 12 mcg/hr transdermal 12 mcg transdermal Q72H #3 ea 09/04/24 patch polyethylene glycol 3350 17 gram 17 g PO BID #60 ea 09/04/24 oral powder packet prednisone 20 mg tablet See Taper PO DAILY #15 tabs 09/04/24 sennosides 8.6 mg-docusate sodium 1 tab PO BID #60 tabs 09/04/24 50 mg tablet (Colace 2-In-1) Allergies Allergy/AdvReac Type Severity Reaction Status Date / Time carbamazepine Allergy Intermediate Hives Verified 09/08/24 17:04 acetaminophen (From Tylenol) Allergy unknown Verified 09/08/24 17:04 simvastatin Allergy unknown Verified 09/08/24 17:04 General GEMA: 3 Medical Decision Making Quality:SDOH Health Related Social Needs: Health related social needs material hardship(utilitie s)(Z59.87) PFSH All Active Problems (Updated 09/08/24 @ 18:04 by Sharan Reza MD) Encounter for medical screening examination (Acute) Abnormal finding on diagnostic imaging of testicle (Acute) Foreign body in cecum (Acute) Exercise hypoxemia (Acute) Bladder malignancy (Chronic) locally invasive 8.5 cm mass resected 07/29/2024 [facility] [place] Dr. Frye. Bebeto hydronephrosis (nephrostomy placed at time of surgery) Urothelial cancer (Acute) locally invasive 8.5 cm mass partially resected 07/29/2024 [facility] Dr. Frye. Bebeto hydronephrosis (nephrostomy placed at time of surgery). Positive pelvic lymph nodes. Dr. Santamaria, palliative RT planned Liver mass (Acute) Compression fracture of T4 vertebra (Acute) Pneumonia due to COVID-19 virus (Acute) Nephrostomy present (Acute) Pain (Acute) Multifactorial: From bladder tumor? From nephrostomy tube? Started on opiates July 2024 while at [facility]. [facility] palliative care team will manage Frailty syndrome in geriatric patient (Acute) Financial insecurity (Acute) Advanced care planning/counseling discussion (Acute) Palliative care encounter (Acute) Weight loss (Acute) Chronic fatigue (Acute) Pulmonary cachexia due to chronic obstructive pulmonary disease (Acute) Night sweats (Acute) Unintentional weight loss (Acute) MAKI (acute kidney injury) (Acute) Lumbar transverse process fracture (Acute) Fall (Acute) Pleural nodule (Acute) Ataxia (Acute) Dizziness (Acute) Gait abnormality (Acute) Rib fractures (Acute) Memory loss (Acute) Stroke (Chronic) Post concussion syndrome (Acute) Sacroiliac joint pain (Chronic) COPD (chronic obstructive pulmonary disease) (Chronic) Medical History (Updated 09/08/24 @ 18:04 by Sharan Reza MD) Arthritis of right acromioclavicular joint (06/19/16) Hx of dizziness H/O: stroke Spine injury Anxiety with depression Bipolar 1 disorder Insomnia H/O onychomycosis Smoker Eczema Allergic rhinitis Alcohol abuse In remission GERD (gastroesophageal reflux disease) Chronic pain HTN (hypertension) COPD (chronic obstructive pulmonary disease) Coronary artery disease HCAP (healthcare-associated pneumonia) Surgical History (Updated 08/12/24 @ 15:53 by Sharan Weinstein) Nephrostomy status left, 07/30/24 [facility] History of shoulder surgery (06/30/16) H/O cystoscopy H/O transurethral resection of bladder tumor (TURBT) History of coronary artery stent placement History of tonsillectomy Rotator Cuff Repair (06/30/16) RIGHT Family History Other Heart disease Hypertension Social History (Updated 08/12/24 @ 15:54 by Sharan Weinstein) Smoking/Tobacco Use Status: Current every day Tobacco Type: cigarettes Smoking packs per day: 0.5 Smoking cigarettes per day: 10.0 Smoking risk assessment performed?: Yes Alcohol Intake: current Alcohol Intake frequency: a few times a month Alcohol type: beer Drug use: Occasionally Substance use type: marijuana Details: states drinks a 6 pack of beer over a 1 month time frame Household members: none Housing: house Number of Children: 1 current occupation: Disabled Pets and animals: No What type of physical activity do you participate in: walking Seatbelt use: sometimes Do you feel safe at home: Yes Do you feel safe in your relationship?: Yes Additional Social history: Lives with roommate in trailer outside of [facility]
== END 2024-09-08 18:05 | disposition home or self-care (01) ==
PROVIDERS: Emergency Provider Emergency Medicine; PCP Nurse Practitioner Family
DX: C67.9 Malignant neoplasm of bladder, unspecified (principal); I10 Essential (primary) hypertension; I25.10 Atherosclerotic heart disease of native coronary artery without angina pectoris; J44.9 Chronic obstructive pulmonary disease, unspecified; F17.210 Nicotine dependence, cigarettes, uncomplicated; Z86.73 Personal history of transient ischemic attack (TIA), and cerebral infarction without residual deficits; Z95.5 Presence of coronary angioplasty implant and graft; Z99.81 Dependence on supplemental oxygen; Z79.02 Long term (current) use of antithrombotics/antiplatelets
CPT/HCPCS: 99283

== ENCOUNTER 2024-09-29 02:13 | Outpatient (CLI) | payer MEDICARE, MEDICAID, SELFPAY ==
--- NOTE | 2024-09-29 | DI.RAD_ITS ---
Exam(s) XR HIP PELVIS ADULT BL EXAM: XR HIP PELVIS ADULT BL CLINICAL HISTORY: Foreign body in anus and rectum, subsequent encounter, T18.5XXD, ? coin. TECHNIQUE: 2D digital imaging was performed. Three views. COMPARISON: CR XR ABDOMEN FLAT UPRIGHT from 09/05/2024 FINDINGS: BONES: No acute fracture is present. No bony destructive lesion is seen. The bony detail is somewha t obscured by overlying bowel gas and stool. JOINTS: No dislocation present. Mild degenerative changes of both hips. SI joints and pubic symph ysis are unremarkable. SOFT TISSUE: Rounded foreign body remains present is positioned in the low pelvis. Left nephrostomy tube again noted. Aorta and iliac arteries are the calcified. Large quantity of stool. IMPRESSION: foreign body again noted low in the pelvis. Mild degenerative changes of the hips. DATA REPOSITORY: RADIATION DOSE DELIVERED:
== END 2024-09-29 02:33 ==
LOC: DI 02:14
PROVIDERS: PCP Nurse Practitioner Family; Visit Provider Radiology Radiation Oncology
DX: M16.0 Bilateral primary osteoarthritis of hip (principal)
CPT/HCPCS: 73521

== ENCOUNTER 2024-10-04 09:46 | Inpatient (IN) | payer MEDICARE, MEDICAID, SELFPAY ==
[2024-10-04] VITALS (15 sets, daily range): BP systolic 96–160; BP diastolic 53–111; PULSE 67–111; RESP 15–22; TEMP 36.2–37.2; O2SAT 92–100
--- NOTE | 2024-10-04 09:45 | DI.RAD_ITS ---
Exam(s) XR PORTABLE CHEST AP EXAM: XR PORTABLE CHEST AP CLINICAL HISTORY: sob TECHNIQUE: 2D digital imaging was performed. COMPARISON: CT CT CHEST PE ABD PELVIS W from 08/29/2024 FINDINGS: Exam is limited by rotation. The LUNGS: Clear. No pleural abnormality seen. HEART: Normal size. AORTA: Normal diameter. BONES: Old left lower rib fracture. Soft tissues: Unremarkable. IMPRESSION: No acute findings. DATA REPOSITORY: RADIATION DOSE DELIVERED:
[2024-10-04] MEDS: Albuterol/Ipratropium 3 ML UPD VIAL UPD (09:58)
--- NOTE | 2024-10-04 10:03 | ED.GENADUL_ITS ---
Discharge Plan Disposition Patient Disposition: Admit to [facility] Condition: Stable Discharge Details Clinical Impression: MAKI (acute kidney injury), COPD (chronic obstructive pulmonary disease), Nephrostomy present Primary Care Provider: LING [facility] ED Provider: Hill Moreno Home Meds and New Rx's Prescriptions: No Action Oxygen 2 l inhalation .exertion Qty: 1 0RF Rx Instructions: Use 2LPM with exertion escitalopram oxalate 20 mg tablet 20 mg PO DAILY Qty: 1 0RF prednisone 5 mg tablet 5 mg PO DAILY meloxicam 15 mg tablet 15 mg PO DAILY clopidogrel [Plavix] 75 mg tablet 75 mg PO DAILY Qty: 90 3RF lamotrigine [Lamictal] 100 mg tablet 100 mg PO BID fentanyl 75 mcg/hr patch 72 hour 1 patch transdermal Q72H MDD 1 patch Qty: 5 0RF morphine 15 mg tablet 15 mg PO Q6H MDD 4 pills PRN (Reason: pain) Qty: 20 0RF lisinopril 10 mg tablet 10 mg PO DAILY Qty: 90 0RF omeprazole 20 mg capsule,delayed release(DR/EC) 20 mg PO DAILY Qty: 90 0RF vitamin B complex-folic acid 0.4 mg tablet 1 tab PO DAILY fluticasone propionate 50 mcg/actuation spray,suspension 1 spray intranasal BID Patient Comments: pt states not taking 05/28/23 Rx Instructions: administer into each nostril [employer] Aerosphere 160-9-4.8 mcg/actuation HFA aerosol inhaler See Rx Instructions .ROUTE .COMPLEX Qty: 32.1 12RF Dose Instruction: INHALE TWO PUFFS BY MOUTH TWICE A DAY Rx Instructions: INHALE TWO PUFFS BY MOUTH TWICE A DAY ipratropium-albuterol 0.5 mg-3 mg(2.5 mg base)/3 mL solution for nebulization See Rx Instructions .ROUTE .COMPLEX Qty: 30 11RF Dose Instruction: USE 1 VIAL IN NEBULIZER DAILY - for rescue Rx Instructions: USE 1 VIAL IN NEBULIZER DAILY - for rescue albuterol sulfate 90 mcg/actuation HFA aerosol inhaler See Rx Instructions .ROUTE .COMPLEX Qty: 8.5 12RF Dose Instruction: INHALE TWO PUFFS BY MOUTH EVERY 6 HOURS NEEDED FOR SHORTNESS OF BREATH OR WHEEZING Rx Instructions: INHALE TWO PUFFS BY MOUTH EVERY 6 HOURS NEEDED FOR SHORTNESS OF BREATH OR WHEEZING morphine concentrate 100 mg/5 mL (20 mg/mL) solution See Rx Instructions PO Q1H PRN MDD 300 mg Qty: 30 0RF Rx Instructions: 0.25-1.0 ml orally every 1 hour, as needed; HOSPICE lorazepam 1 mg tablet 1 mg PO Q4H PRN (Reason: anxiety) Qty: 6 5RF Rx Instructions: hospice quetiapine 100 mg tablet 100 mg PO HS Patient Comments: TAKE ONE TABLET BY MOUTH EVERY EVENING polyethylene glycol 3350 17 gram Powder In Packet 17 g PO BID Qty: 60 0RF sennosides-docusate sodium [Colace 2-In-1] 8.6-50 mg Tablet 1 tab PO BID Qty: 60 0RF acetaminophen 500 mg capsule 1,000 mg PO Q8H PRN (Reason: fever) Qty: 100 2RF Rx Instructions: OK to take with oxycodone 5mg atorvastatin 20 mg Tablet 20 mg PO DAILY bisacodyl 10 mg suppository 10 mg AL DAILY PRNQty: 12 2RF HPI General Date/Time Provider Initiated Documentation: 10/04/24 09:48 . Limitations to Documentation: altered mental status and physical limitation . Information obtained by: EMS and old records reviewed . HPI Narrative: 69-year-old gentleman with past medical history of oxygen dependent COPD, urothelial carcinoma with metastatic. Had some total resection in July at [facility] with a subsequent left nephrostomy tube. Since that time he has had significant decline in his cognitive function and respiratory status. He was brought in by EMS after being activated for shortness of breath. They found the patient with increased work of breathing, but baseline saturation. Patient was not able to provide any additional history to them. The patient was on his home oxygen when they found him. He has a roommate that is his caregiver, he has a COLST form and is DNR/DNI. Related Data Home Medications ?Medication ?Instructions ?Recorded ?Confirmed lisinopril 10 mg tablet 10 mg PO DAILY #90 tabs 08/19/18 10/02/24 omeprazole 20 mg capsule,delayed 20 mg PO DAILY #90 caps 08/19/18 10/02/24 release meloxicam 15 mg tablet 15 mg PO DAILY 01/27/19 10/02/24 atorvastatin 20 mg tablet 20 mg PO DAILY 04/29/20 10/02/24 Oxygen 2 l inhalation .exertion #1 supp 05/08/23 01/16/25 fluticasone propionate 50 1 spray intranasal BID 04/04/23 10/02/24 mcg/actuation nasal spray,suspension vitamin B complex-folic acid 0.4 1 tab PO DAILY 04/04/23 10/02/24 mg tablet clopidogrel 75 mg tablet (Plavix) 75 mg PO DAILY #90 tabs 08/23/23 10/02/24 lamotrigine 100 mg tablet 100 mg PO BID 10/23/23 10/02/24 (Lamictal) budesonide 160 mcg-glycopyr 9 See Rx Instructions .Route 11/13/23 10/02/24 mcg-formot 4.8 mcg/actuation HFA .COMPLEX #32.1 grams inhaler ([employer]) escitalopram oxalate 20 mg tablet 20 mg PO DAILY #1 tab 12/04/23 10/02/24 ipratropium 0.5 mg-albuterol 3 mg See Rx Instructions .Route 12/28/23 10/02/24 (2.5 mg base)/3 mL nebulization .COMPLEX #30 ea soln albuterol sulfate 90 mcg/actuation See Rx Instructions .Route 03/16/24 10/02/24 aerosol inhaler .COMPLEX #8.5 grams quetiapine 100 mg tablet 100 mg PO HS 08/06/24 10/02/24 bisacodyl 10 mg rectal suppository 10 mg AL DAILY PRN #12 ea 08/14/24 10/02/24 acetaminophen 500 mg capsule 1,000 mg (2 x 500 mg) PO Q8H PRN 09/04/24 10/02/24 fever #100 caps polyethylene glycol 3350 17 gram 17 g PO BID #60 ea 09/04/24 10/02/24 oral powder packet sennosides 8.6 mg-docusate sodium 1 tab PO BID #60 tabs 09/04/24 10/02/24 50 mg tablet (Colace 2-In-1) prednisone 5 mg tablet 5 mg PO DAILY 09/25/24 10/02/24 fentanyl 75 mcg/hr transdermal 1 patch transdermal Q72H pain #5 ea 10/02/24 10/02/24 patch morphine 15 mg immediate release 15 mg PO Q6H PRN pain #20 tabs 10/02/24 10/02/24 tablet lorazepam 1 mg tablet 1 mg PO Q4H PRN anxiety #6 tabs 10/03/24 morphine concentrate 100 mg/5 mL See Rx Instructions PO Q1H PRN 10/03/24 (20 mg/mL) oral solution pain or dyspnea #30 mL Previous Rx's ?Medication ?Instructions ?Recorded lisinopril 10 mg tablet 10 mg PO DAILY #90 tabs 08/19/18 omeprazole 20 mg capsule,delayed 20 mg PO DAILY #90 caps 08/19/18 release Oxygen 2 l inhalation .exertion #1 supp 01/22/23 clopidogrel 75 mg tablet (Plavix) 75 mg PO DAILY #90 tabs 08/23/23 budesonide 160 mcg-glycopyr 9 See Rx Instructions .Route 11/13/23 mcg-formot 4.8 mcg/actuation HFA .COMPLEX #32.1 grams inhaler ([employer]) escitalopram oxalate 20 mg tablet 20 mg PO DAILY #1 tab 12/04/23 ipratropium 0.5 mg-albuterol 3 mg See Rx Instructions .Route 12/28/23 (2.5 mg base)/3 mL nebulization .COMPLEX #30 ea soln albuterol sulfate 90 mcg/actuation See Rx Instructions .Route 03/16/24 aerosol inhaler .COMPLEX #8.5 grams bisacodyl 10 mg rectal suppository 10 mg AL DAILY PRN #12 ea 08/14/24 acetaminophen 500 mg capsule 1,000 mg (2 x 500 mg) PO Q8H PRN 09/04/24 fever #100 caps polyethylene glycol 3350 17 gram 17 g PO BID #60 ea 09/04/24 oral powder packet sennosides 8.6 mg-docusate sodium 1 tab PO BID #60 tabs 09/04/24 50 mg tablet (Colace 2-In-1) fentanyl 75 mcg/hr transdermal 1 patch transdermal Q72H pain #5 ea 10/02/24 patch morphine 15 mg immediate release 15 mg PO Q6H PRN pain #20 tabs 10/02/24 tablet lorazepam 1 mg tablet 1 mg PO Q4H PRN anxiety #6 tabs 10/03/24 morphine concentrate 100 mg/5 mL See Rx Instructions PO Q1H PRN 10/03/24 (20 mg/mL) oral solution pain or dyspnea #30 mL Allergies Allergy/AdvReac Type Severity Reaction Status Date / Time carbamazepine Allergy Intermediate Hives Verified 09/08/24 17:04 acetaminophen (From Tylenol) Allergy unknown Verified 09/08/24 17:04 simvastatin Allergy unknown Verified 09/08/24 17:04 General Stated Complaint: SOB/SuddenOnset GEMA: 3 Exam Narrative Exam Narrative: Review of Systems: All systems reviewed & are unremarkable except as noted in HPI and below chronically ill appearing, cachectic NCAT tachypnea increased WOB, retractions, diminished air movement nephrostomoy on left, drainging alert, but only answers questions with i don't know Course Vital Signs Vital signs: Vital Signs Temperature 37.2 C 10/04/24 09:45 Pulse 100 H 10/04/24 09:45 Respiratory Rate 20 10/04/24 09:45 Blood Pressure 142/111 H 10/04/24 09:45 Pulse Oximetry 98 10/04/24 09:45 Temperature 37.2 C 10/04/24 09:45 Pulse 100 H 10/04/24 09:45 Respiratory Rate 20 10/04/24 09:45 Blood Pressure 142/111 H 10/04/24 09:45 Blood Pressure Position Sitting 10/04/24 09:45 Pulse Oximetry 97 10/04/24 09:58 Oxygen Delivery Method Nasal Cannula 10/04/24 09:58 Oxygen Flow Rate 4 10/04/24 09:58 Medical Decision Making Emergent evaluation of shortness of breath. Patient is overall very ill- appearing and demonstrating signs of respiratory distress. I have reviewed his medical record and noted that he has multiple comorbidities. He is oxygen dependent COPD. Has metastatic cancer, chronic pain. His pain control regimen was recently adjusted by palliative care. It also seems that he is probably less compliant with his inhalers. Concern for depressed mental status as well. Initial differential includes respiratory failure, medication side effect, cognitive decline, metastatic disease. Plan for nebulizer treatment, chest x- ray and lab work. Lab work reviewed, there are multiple abnormalities including significant leukocytosis of 23. There is some anemia as well hemoglobin is 10, baseline has been trending down over the last few months. VBG does not demonstrate significant respiratory failure and the patient's respiratory symptoms did improve after a DuoNeb. His electrolytes demonstrate a significant elevation in BUN and creatinine that is new over the last month. I suspect it is secondary to poor oral intake. Urinalysis culture blood culture have been obtained. I will give IV antibiotics. I have started resuscitation with IV fluids as well. Patient will be admitted to the hospitalist service for further management. Quality:[facility] Health Related Social Needs: No Data to Display PFSH All Active Problems (Updated 10/04/24 @ 11:13 by Hill Moreno MD) Supplemental oxygen dependent (Acute) Cognitive impairment (Acute) Multiple TBIs, EtOH induced dementia Encounter for medical screening examination (Acute) Abnormal finding on diagnostic imaging of testicle (Acute) Foreign body in cecum (Acute) Exercise hypoxemia (Acute) Bladder malignancy (Chronic) locally invasive 8.5 cm mass resected 07/29/2024 [facility] [place]. L hydronephrosis (nephrostomy placed at time of surgery) Urothelial cancer (Acute) locally invasive 8.5 cm mass partially resected 07/29/2024 [facility] [place] Frye. L hydronephrosis (nephrostomy placed at time of surgery). Positive pelvic lymph nodes. Dr. Santamaria, palliative RT planned Liver mass (Acute) Compression fracture of T4 vertebra (Acute) Pneumonia due to COVID-19 virus (Acute) Nephrostomy present (Acute) Pain (Acute) Multifactorial: From bladder tumor? From nephrostomy tube? Started on opiates July 2024 while at [facility] [place] [facility] palliative care team will manage Frailty syndrome in geriatric patient (Acute) Financial insecurity (Acute) Advanced care planning/counseling discussion (Acute) Palliative care encounter (Acute) Weight loss (Acute) Chronic fatigue (Acute) Pulmonary cachexia due to chronic obstructive pulmonary disease (Acute) Night sweats (Acute) Unintentional weight loss (Acute) MAKI (acute kidney injury) (Acute) Lumbar transverse process fracture (Acute) Fall (Acute) Pleural nodule (Acute) Ataxia (Acute) Dizziness (Acute) Gait abnormality (Acute) Rib fractures (Acute) Memory loss (Acute) Stroke (Chronic) Post concussion syndrome (Acute) Sacroiliac joint pain (Chronic) COPD (chronic obstructive pulmonary disease) (Chronic) Medical History Pneumonia Arthritis of right acromioclavicular joint (06/19/16) Hx of dizziness H/O: stroke Spine injury Anxiety with depression Bipolar 1 disorder Insomnia H/O onychomycosis Smoker Eczema Allergic rhinitis Alcohol abuse In remission GERD (gastroesophageal reflux disease) Chronic pain HTN (hypertension) COPD (chronic obstructive pulmonary disease) Coronary artery disease HCAP (healthcare-associated pneumonia) Surgical History Nephrostomy status left, 07/30/24 [facility] History of shoulder surgery (06/30/16) H/O cystoscopy H/O transurethral resection of bladder tumor (TURBT) History of coronary artery stent placement History of tonsillectomy Rotator Cuff Repair (06/30/16) RIGHT Family History Other Heart disease Hypertension Social History Smoking/Tobacco Use Status: Current every day Tobacco Type: cigarettes Smoking packs per day: 0.5 Smoking cigarettes per day: 10.0 Smoking risk assessment performed?: Yes Alcohol Intake: current Alcohol Intake frequency: a few times a month Alcohol type: beer Drug use: Occasionally Substance use type: marijuana Details: states drinks a 6 pack of beer over a 1 month time frame Household members: none Housing: house Number of Children: 1 current occupation: Disabled Pets and animals: No What type of physical activity do you participate in: walking Seatbelt use: sometimes Do you feel safe at home: Yes Do you feel safe in your relationship?: Yes Additional Social history: Lives with roommate in trailer outside of [facility]
[2024-10-04 10:42] LABS: Abs Immature Grans 0.16 10^3/uL (0.0-0.06); Absolute Basophil Count 0.05 10^3/uL (0.0-0.2); Absolute Eosinophil Count 0.02 10^3/uL (0.0-0.7); Absolute Monocyte Count 1.64 10^3/uL (0.1-0.8); Basophils % 0.2 %; Eosinophils % 0.1 %; HCT 33.5 % (40.0-50.0); HGB 10.9 g/dL (13.5-17.5); Immature Grans % 0.7 %; Lymphocytes % 1.8 %; MCH 29.1 pg (27.0-33.0); MCHC 32.5 % (32.0-36.0); MCV 89 fL (80-95); MPV 9.1 fL (8.0-11.0); Monocytes % 6.9 %; Neutrophils % 90.3 %; Platelet Count 411 10^3/uL (130-400); RBC 3.75 10^6/uL (4.36-5.78); RDW 14.5 % (11.8-14.1); RDW-SD 47.2 fL; WBC 23.76 10^3/uL (4.4-10.8)
[2024-10-04 10:45] LABS: Absolute Lymphocyte Count 0.43 10^3/uL (1.2-3.4); Absolute Neutrophil Count 21.46 10^3/uL (1.2-6.7)
[2024-10-04 10:46] LABS: BE (Venous) 5 mmol/L (-2-3); HCO3 (Venous) 30 mmol/L (23-28); O2 Sat (Venous) 69 %; TCO2 (Venous) 28 mmol/L (24-29); pCO2 (Venous) 49 mmHg (41-51); pH (Venous) 7.39 (7.31-7.41); pO2 (Venous) 40 mmHg
[2024-10-04 11:02] LABS: Diff Comment Diff Reviewed; RBC Morphology Normal
[2024-10-04 11:04] LABS: ALT 19 U/L (16-63); AST 20 U/L (15-37); Albumin 2.4 g/dL (3.4-5.0); Alkaline Phosphatase 107 U/L (46-116); Anion Gap 6.9 mmol/L (3-11); BUN 59 mg/dL (7-18); Bilirubin, Total 0.33 mg/dL (0.2-1.0); CO2 31.1 mmol/L (21.0-32.0); CREATININE 2.3 mg/dL (0.70-1.30); Calcium 9.7 mg/dL (8.5-10.1); Chloride 99 mmol/L (98-107); Estimated GFR 30.17 (mL/min/1.73m2); Glucose 139 mg/dL (74-106); Potassium 4.8 mmol/L (3.5-5.1); Sodium 137 mmol/L (136-145); Total Protein 7.1 g/dL (6.4-8.2)
[2024-10-04 11:32] LABS: Bilirubin Negative (Negative); Blood Moderate (Negative); Clarity Clear (Clear); Glucose Negative (Negative); Ketones Negative (Negative); Leukocyte Esterase Large (Negative); Nitrite Negative (Negative)
--- NOTE | 2024-10-04 11:37 | DI.VRAD_ITS ---
PROCEDURE INFORMATION: Exam: XR Chest Exam date and time: 10/04/2024 10:30 AM Age: 69 years old Clinical indication: Shortness of breath TECHNIQUE: Imaging protocol: Radiologic exam of the chest. Views: 1 view. COMPARISON: CT CHEST PE ABD PELVIS W 08/29/2024 2:03 PM FINDINGS: Lungs: Hyperexpanded lung talavera consistent with COPD. No focal consolidation. Pleural spaces: Unremarkable. No pleural effusion. No pneumothorax. Heart/Mediastinum: Stable cardiac silhouette. Bones/joints: Unremarkable. IMPRESSION: 1. Hyperexpanded lung talavera consistent with COPD. 2. Stable cardiac silhouette. Dictated and Authenticated by: Do Rowland MD. Ordering:AdrienneLYNN Parr MD
[2024-10-04 11:38] LABS: WBC >50 HPF (0-5)
[2024-10-04 11:39] LABS: C & S Indicated? C&S Done As Ordered
--- NOTE | 2024-10-04 11:42 | W.PM.HP.N ---
Date of service: 10/04/24 Time of Service: 11:42 Assessment and Plan Assessment and plan (1) COPD exacerbation: Status: Acute Assessment and plan: - With normal chest x-ray, no fever but no other source of infection, patient's worsening shortness of breath and tachypnea likely secondary to COPD exacerbation in the setting of end-stage COPD -Patient did have leukocytosis with a white count of 23, but again in the absence of other source of infection this is likely demargination or secondary to combination of end-stage COPD and metastatic urothelial cancer -Started on 40 mg p.o. prednisone upon arrival to [facility], will continue daily -Continue as needed nebulizer -Patient already has significant improvement of symptoms and appears to be back to his baseline shortly after arrival to [facility] (2) Chronic hypoxic respiratory failure, on home oxygen therapy: Status: Acute Assessment and plan: - Continue home baseline 4 L nasal cannula (3) Bladder malignancy: Status: Chronic Assessment and plan: - Recently diagnosed with urothelial cancer with metastasis - (4) Palliative care patient: Status: Acute Assessment and plan: Has been seen by palliative care in the outpatient setting Patient is alcohol symptomatic and stated DNR/DNI status Plan for palliative consultation to discuss with patient's decision makers as he appears highly appropriate to be on hospice/[facility] status at this time- (5) Cognitive impairment: Status: Acute History of Present Illness History of Present Illness Chief Complaint: shortness of breath Narrative: 69-year-old gentleman with a past medical history of COPD with chronic Evoxac respiratory failure on 4 L nasal cannula at baseline, urothelial carcinoma with significant metastasis who was seen by palliative care and presented to the emergency department via EMS for complaints of shortness of breath. Apparently EMS was called by patient's roommate who is his caregiver, but no additional information was given as the patient was unable to provide additional history as he has had significant functional and cognitive decline since being hospitalized at [facility] in July. However, according to EMS the patient was found having increased work of breathing but was at his baseline oxygen saturation. EMS was able to bring with him his COLST form that did show that he is a DNR/DNI. Upon arrival to the emergency department the patient was noted as being tachypneic with a respiratory rate of 22, but was saturating 94% on his baseline 4 L nasal cannula. Remainder of his vital signs were within normal limits but his physical exam showed significant and expiratory wheezing. CBC showed a white count of 23.7, BMP showed a creatinine of 2.3 (baseline 1.1) and VBG was within normal limits. Chest x-ray was done which showed hyperexpanded lung talavera consistent with COPD but no infiltrates. Patient was given nebulizer treatment but continued to be significantly tachypneic. At which time emergency room physician paged hospitalist for admission for patient with worsening dyspnea in the setting of end-stage COPD. Review of Systems All systems reviewed & are unremarkable except as noted in HPI and below PFSH All Active Problems (Updated 10/04/24 @ 11:55 by Reagan Crowe MD) Palliative care patient (Acute) Chronic hypoxic respiratory failure, on home oxygen therapy (Acute) COPD exacerbation (Acute) Supplemental oxygen dependent (Acute) Cognitive impairment (Acute) Multiple TBIs, EtOH induced dementia Encounter for medical screening examination (Acute) Abnormal finding on diagnostic imaging of testicle (Acute) Foreign body in cecum (Acute) Exercise hypoxemia (Acute) Bladder malignancy (Chronic) locally invasive 8.5 cm mass resected 07/29/2024 [facility] [place] Dr. Frye. Bebeto hydronephrosis (nephrostomy placed at time of surgery) Urothelial cancer (Acute) locally invasive 8.5 cm mass partially resected 07/29/2024 [facility] [place] Dr. Frye. Bebeto hydronephrosis (nephrostomy placed at time of surgery). Positive pelvic lymph nodes. Dr. Santamaria, palliative RT planned Liver mass (Acute) Compression fracture of T4 vertebra (Acute) Pneumonia due to COVID-19 virus (Acute) Nephrostomy present (Acute) Pain (Acute) Multifactorial: From bladder tumor? From nephrostomy tube? Started on opiates July 2024 while at [facility] [place]. [facility] palliative care team will manage Frailty syndrome in geriatric patient (Acute) Financial insecurity (Acute) Advanced care planning/counseling discussion (Acute) Palliative care encounter (Acute) Weight loss (Acute) Chronic fatigue (Acute) Pulmonary cachexia due to chronic obstructive pulmonary disease (Acute) Night sweats (Acute) Unintentional weight loss (Acute) MAKI (acute kidney injury) (Acute) Lumbar transverse process fracture (Acute) Fall (Acute) Pleural nodule (Acute) Ataxia (Acute) Dizziness (Acute) Gait abnormality (Acute) Rib fractures (Acute) Memory loss (Acute) Stroke (Chronic) Post concussion syndrome (Acute) Sacroiliac joint pain (Chronic) COPD (chronic obstructive pulmonary disease) (Chronic) Medical History Pneumonia Arthritis of right acromioclavicular joint (06/19/16) Hx of dizziness H/O: stroke Spine injury Anxiety with depression Bipolar 1 disorder Insomnia H/O onychomycosis Smoker Eczema Allergic rhinitis Alcohol abuse In remission GERD (gastroesophageal reflux disease) Chronic pain HTN (hypertension) COPD (chronic obstructive pulmonary disease) Coronary artery disease HCAP (healthcare-associated pneumonia) Surgical History Nephrostomy status left, 07/30/24 [facility] History of shoulder surgery (06/30/16) H/O cystoscopy H/O transurethral resection of bladder tumor (TURBT) History of coronary artery stent placement History of tonsillectomy Rotator Cuff Repair (06/30/16) RIGHT Family History Other Heart disease Hypertension Social History Smoking/Tobacco Use Status: Current every day Tobacco Type: cigarettes Smoking packs per day: 0.5 Smoking cigarettes per day: 10.0 Smoking risk assessment performed?: Yes Alcohol Intake: current Alcohol Intake frequency: a few times a month Alcohol type: beer Drug use: Occasionally Substance use type: marijuana Details: states drinks a 6 pack of beer over a 1 month time frame Household members: none Housing: house Number of Children: 1 current occupation: Disabled Pets and animals: No What type of physical activity do you participate in: walking Seatbelt use: sometimes Do you feel safe at home: Yes Do you feel safe in your relationship?: Yes Additional Social history: Lives with roommate in trailer outside of [facility] Allergies and Home Medications Allergies Allergy/AdvReac Type Severity Reaction Status Date / Time carbamazepine Allergy Intermediate Hives Verified 09/08/24 17:04 acetaminophen (From Tylenol) Allergy unknown Verified 09/08/24 17:04 simvastatin Allergy unknown Verified 09/08/24 17:04 Home Medications ?Medication ?Instructions ?Recorded ?Confirmed ?Type lisinopril 10 mg tablet 10 mg PO DAILY #90 tabs 08/19/18 10/02/24 Rx omeprazole 20 mg capsule,delayed 20 mg PO DAILY #90 caps 08/19/18 10/02/24 Rx release meloxicam 15 mg tablet 15 mg PO DAILY 01/27/19 10/02/24 History atorvastatin 20 mg tablet 20 mg PO DAILY 04/29/20 10/02/24 History Oxygen 2 l inhalation .exertion #1 supp 01/22/23 10/02/24 Rx fluticasone propionate 50 1 spray intranasal BID 04/04/23 10/02/24 History mcg/actuation nasal spray,suspension vitamin B complex-folic acid 0.4 1 tab PO DAILY 04/04/23 10/02/24 History mg tablet clopidogrel 75 mg tablet (Plavix) 75 mg PO DAILY #90 tabs 08/23/23 10/02/24 Rx lamotrigine 100 mg tablet 100 mg PO BID 10/23/23 10/02/24 History (Lamictal) budesonide 160 mcg-glycopyr 9 See Rx Instructions .Route 11/13/23 10/02/24 Rx mcg-formot 4.8 mcg/actuation HFA .COMPLEX #32.1 grams inhaler (Thar Geothermalztri Aerosphere) escitalopram oxalate 20 mg tablet 20 mg PO DAILY #1 tab 12/04/23 10/02/24 Rx ipratropium 0.5 mg-albuterol 3 mg See Rx Instructions .Route 12/28/23 10/02/24 Rx (2.5 mg base)/3 mL nebulization .COMPLEX #30 ea soln albuterol sulfate 90 mcg/actuation See Rx Instructions .Route 03/16/24 10/02/24 Rx aerosol inhaler .COMPLEX #8.5 grams quetiapine 100 mg tablet 100 mg PO HS 08/06/24 10/02/24 History bisacodyl 10 mg rectal suppository 10 mg LA DAILY PRN #12 ea 08/14/24 10/02/24 Rx acetaminophen 500 mg capsule 1,000 mg (2 x 500 mg) PO Q8H PRN 09/04/24 10/02/24 Rx fever #100 caps polyethylene glycol 3350 17 gram 17 g PO BID #60 ea 09/04/24 10/02/24 Rx oral powder packet sennosides 8.6 mg-docusate sodium 1 tab PO BID #60 tabs 09/04/24 10/02/24 Rx 50 mg tablet (Colace 2-In-1) prednisone 5 mg tablet 5 mg PO DAILY 09/25/24 10/02/24 History fentanyl 75 mcg/hr transdermal 1 patch transdermal Q72H pain #5 ea 10/02/24 10/02/24 Rx patch morphine 15 mg immediate release 15 mg PO Q6H PRN pain #20 tabs 10/02/24 10/02/24 Rx tablet lorazepam 1 mg tablet 1 mg PO Q4H PRN anxiety #6 tabs 10/03/24 Rx morphine concentrate 100 mg/5 mL See Rx Instructions PO Q1H PRN 10/03/24 Rx (20 mg/mL) oral solution pain or dyspnea #30 mL Exam Narrative Exam Narrative: Chronically ill, severely cachectic appearing older gentleman laying in bed in minimal respiratory distress, on baseline 4 L nasal cannula, awake, alert, oriented to person but not place or situation, heart regular rhythm, lungs minimal end expiratory wheezing but otherwise clear to auscultation bilaterally, abdomen is soft, nontender, nondistended Results Labs 10/04/24 10:35 10/04/24 10:35 Labs: Laboratory Results - last 24 hr 10/04/24 10/04/24 10:35 11:22 WBC 23.76 H RBC 3.75 L Hgb 10.9 L Hct 33.5 L MCV 89 MCH 29.1 MCHC 32.5 RDW 14.5 H Plt Count 411 H MPV 9.1 Immature Gran % 0.7 Neutrophils % 90.3 Lymphocytes % 1.8 Monocytes % 6.9 Eosinophils % 0.1 Basophils % 0.2 Nucleated RBC % 0.0 Absolute Neutrophils 21.46 H Absolute Lymphocytes 0.43 L Absolute Monocytes 1.64 H Absolute Eosinophils 0.02 Absolute Basophils 0.05 RBC Morphology Normal VBG pH 7.39 VBG pCO2 49 VBG pO2 40 VBG HCO3 30 H VBG Total CO2 28 VBG O2 Saturation 69 VBG Base Excess 5 H Sodium 137 Potassium 4.8 Chloride 99 Carbon Dioxide 31.1 Anion Gap 6.9 BUN 59 H Creatinine 2.3 H Est GFR (CKD-EPI 2020) 30.17 Glucose 139 H Calcium 9.7 Total Bilirubin 0.33 AST 20 ALT 19 Alkaline Phosphatase 107 Total Protein 7.1 Albumin 2.4 L Urine Color Yellow Urine Clarity Clear Urine pH 7.0 Ur Specific [place] 1.020 Urine Protein >=300 H Urine Ketones Negative Urine Blood Moderate H Urine Nitrite Negative Urine Bilirubin Negative Urine Urobilinogen 1.0 H Ur Leukocyte Esterase Large H Urine RBC Not Applicable Urine WBC >50 H Ur Epithelial Cells Not Applicable Urine Crystals Not Applicable Urine Bacteria Not Applicable Urine Mucus Not Applicable Ur Culture Indicated? C&S Done As Ordered Urine Glucose Negative Last Vital Signs Temp 98.9 F 10/04/24 09:45 Pulse 89 10/04/24 11:00 Resp 22 10/04/24 11:00 BP 125/68 10/04/24 11:00 Pulse Ox 94 10/04/24 11:00 Time Spent Time spent with Patient: >75 minutes Time was spent: preparing to see the patient(eg.review tests), obtaining and/or reviewing separately otained hiistory, ordering medications,tests, procedures, referring, communicating with other health foster care case manager, indepentently interpreting results, counseling the patient and care coordination
[2024-10-04] MEDS: CEFEPIME 2 GM in Normal Saline 100 ML IVPB (12:53)
[2024-10-04] MEDS: Lactated Ringers 1,000 ML 1000 ML IV (12:54)
[2024-10-04] MEDS: predniSONE 20 MG TAB 40 MG PO (13:38)
[2024-10-04] MEDS: Normal Saline Flush 10 ML SYR IVP (13:38)
--- NOTE | 2024-10-04 17:26 | W.PC.ACHO ---
Registration Status: Primary Language: Preferred Language: ED Information & Data Chief Complaint SOB/SuddenOnset 10/04/24 10:17 Chief Complaint SOB/SuddenOnset 10/04/24 10:07 Triage Note brought in by EMS with 10/04/24 09:45 difficulty breathing, LLQ pain, CP. patient is a poor historian, patient on 4L at home Medical / Surgical History (Last Reviewed 10/04/24 @ 10:07 by Hill Moreno MD) Pneumonia Arthritis of right acromioclavicular joint (06/19/16) Hx of dizziness H/O: stroke Spine injury Anxiety with depression Bipolar 1 disorder Insomnia H/O onychomycosis Smoker Eczema Allergic rhinitis Alcohol abuse GERD (gastroesophageal reflux disease) Chronic pain HTN (hypertension) COPD (chronic obstructive pulmonary disease) Coronary artery disease HCAP (healthcare-associated pneumonia) (Last Reviewed 10/04/24 @ 10:07 by Hill Moreno MD) Nephrostomy status History of shoulder surgery (06/30/16) H/O cystoscopy H/O transurethral resection of bladder tumor (TURBT) History of coronary artery stent placement History of tonsillectomy Rotator Cuff Repair (06/30/16) Most Recent Vital Signs Temperature 36.2 C L 10/04/24 15:21 Temperature Source Temporal Artery Scan 10/04/24 15:21 Pulse 81 10/04/24 15:21 Pulse Rhythm Regular 10/04/24 14:53 Pulse 84 10/04/24 11:15 Respiratory Rate 19 10/04/24 15:21 Respiratory Effort Short of Breath 10/04/24 14:53 Respiratory Depth Shallow 10/04/24 14:53 Respiratory Pattern Tachypnea 10/04/24 14:53 Blood Pressure 102/67 10/04/24 15:21 Blood Pressure Mean 79 10/04/24 11:15 Blood Pressure Position Sitting 10/04/24 09:45 Pulse Oximetry 94 10/04/24 14:53 Oxygen Delivery Method Nasal Cannula 10/04/24 15:21 Oxygen Flow Rate 4 10/04/24 15:21 Pain Level 5 10/04/24 15:21 Comment Patient complained of pain, or generalized discomfort. He was unable to describe this feeling or where it is. 10/04/24 13:29 Allergies carbamazepine Allergy (Intermediate, Verified 09/08/24 17:04) Hives acetaminophen (From Tylenol) Allergy (Verified 09/08/24 17:04) unknown simvastatin Allergy (Verified 09/08/24 17:04) unknown Precautions Isolation Standard precaution 10/04/24 10:17 Active Medications Generic Name Dose Route Start Last Admin Trade Name Freq PRN Reason Stop Dose Admin Prednisone 40 mg 10/04/24 13:26 10/04/24 13:38 Prednisone 20 Mg Tab PO 40 mg DAILY COOPER Administration Sodium Chloride 0 ml 10/04/24 13:26 10/04/24 13:38 Normal Saline Flush 10 Ml Syr IVP 10 ml PRN PRN Administration IV IV Catheter Type [] Saline Lock IV Catheter Type [Right Upper Saline Lock arm] IV Catheter Gauge [] 20 IV Catheter Gauge [Right Upper 20 arm] Diet Orders Category Date Time Status Regular/Normal [DIET] Nutrition 10/04/24 Lunch Active Diagnostics 10/04/24 10/04/24 Range/Units 11:22 10:35 WBC 23.76 H (4.4-10.8) 10^3/uL RBC 3.75 L (4.36-5.78) 10^6/uL Hgb 10.9 L (13.5-17.5) g/dL Hct 33.5 L (40.0-50.0) % MCV 89 (80-95) fL MCH 29.1 (27.0-33.0) pg MCHC 32.5 (32.0-36.0) % RDW 14.5 H (11.8-14.1) % Plt Count 411 H (130-400) 10^3/uL MPV 9.1 (8.0-11.0) fL Immature Gran % 0.7 % Neutrophils % 90.3 % Lymphocytes % 1.8 % Monocytes % 6.9 % Eosinophils % 0.1 % Basophils % 0.2 % Nucleated RBC % 0.0 (0.0-0.3) % Absolute Neutrophils 21.46 H (1.2-6.7) 10^3/uL Absolute Lymphocytes 0.43 L (1.2-3.4) 10^3/uL Absolute Monocytes 1.64 H (0.1-0.8) 10^3/uL Absolute Eosinophils 0.02 (0.0-0.7) 10^3/uL Absolute Basophils 0.05 (0.0-0.2) 10^3/uL RBC Morphology Normal VBG pH 7.39 (7.31-7.41) VBG pCO2 49 (41-51) mmHg VBG pO2 40 mmHg VBG HCO3 30 H (23-28) mmol/L VBG Total CO2 28 (24-29) mmol/L VBG O2 Saturation 69 % VBG Base Excess 5 H (-2-3) mmol/L Sodium 137 (136-145) mmol/L Potassium 4.8 (3.5-5.1) mmol/L Chloride 99 (98-107) mmol/L Carbon Dioxide 31.1 (21.0-32.0) mmol/L Anion Gap 6.9 (3-11) mmol/L BUN 59 H (7-18) mg/dL Creatinine 2.3 H (0.70-1.30) mg/dL Est GFR (CKD-EPI 2020) 30.17 (mL/min/1.73m2) Glucose 139 H (74-106) mg/dL Calcium 9.7 (8.5-10.1) mg/dL Total Bilirubin 0.33 (0.2-1.0) mg/dL AST 20 (15-37) U/L ALT 19 (16-63) U/L Alkaline Phosphatase 107 (46-116) U/L Total Protein 7.1 (6.4-8.2) g/dL Albumin 2.4 L (3.4-5.0) g/dL Urine Color Yellow (Yellow) Urine Clarity Clear (Clear) Urine pH 7.0 (5-8) Ur Specific [place] 1.020 (1.005-1.025) Urine Protein >=300 H (Neg-Trace) mg/dL Urine Ketones Negative (Negative) mg/dL Urine Blood Moderate H (Negative) Urine Nitrite Negative (Negative) Urine Bilirubin Negative (Negative) Urine Urobilinogen 1.0 H (Up to 0.2) mg/dL Ur Leukocyte Esterase Large H (Negative) Urine RBC Not Applicable Urine WBC >50 H (0-5) HPF Ur Epithelial Cells Not Applicable Urine Crystals Not Applicable Urine Bacteria Not Applicable Urine Mucus Not Applicable Ur Culture Indicated? C&S Done As Ordered Urine Glucose Negative (Negative) mg/dL 10/04/24 13:14 Blood Culture - Pending Blood 10/04/24 12:48 Blood Culture - Pending Blood 10/04/24 11:22 Urine Culture - Pending Urine - Left Urostomy Tube Intake and Output - 24 Hour Total 10/04/24 09:33 thru 10/04/24 16:04 Intake Total 10 Balance 10 Weight 39.5 kg Intake: IV 10 Other: Urine Appearance Clear Comment Patient complained of feeling need to urinate, so this RN assisted the patient in attempting to use urinal. Patient was unable to urinate and a bladder scan was performed, which showed 0. Discussed this with Dr. Crowe. Falls Risk Assessment History of Falls No History 10/04/24 14:53 Contributing Factors Confusion 10/04/24 14:53 Ambulatory Aids Uses ambulatory device + 10/04/24 14:53 Tubes/Lines With any additional score 10/04/24 14:53 Gait Evaluation No gait disturbance 10/04/24 14:53 Cognition Cognitive impairment 10/04/24 14:53 Fall Total Score 68 10/04/24 14:53 Level of Risk High Risk 10/04/24 14:53 Problems (Last Reviewed 10/04/24 @ 10:07 by Hill Moreno MD) Palliative care patient (Acute) Chronic hypoxic respiratory failure, on home oxygen therapy (Acute) COPD exacerbation (Acute) Cognitive impairment (Acute) Bladder malignancy (Chronic) v v v v v v v v v Sending and/or Receiving Nurses: Please use comment section below to note any information pertinent to the patient hand-off not included above. Information / Comments: Report received from: Elvira
[2024-10-04] MEDS: Acetaminophen 325 MG TAB PO (21:14)
[2024-10-04] MEDS: fentaNYL 75 MCG PATCH TD (22:08)
[2024-10-04] MEDS: QUEtiapine 50 MG TAB 100 MG PO (22:31)
[2024-10-05 02:14] VITALS: O2SAT 94
[2024-10-05 04:00] VITALS: BP 115/60; PULSE 78; RESP 18; TEMP 36.3; O2SAT 99
[2024-10-05 06:43] LABS: HCT 31.5 % (40.0-50.0); HGB 10.1 g/dL (13.5-17.5); MCH 28.7 pg (27.0-33.0); MCHC 32.1 % (32.0-36.0); MCV 90 fL (80-95); MPV 9.8 fL (8.0-11.0); Platelet Count 361 10^3/uL (130-400); RBC 3.52 10^6/uL (4.36-5.78); RDW 14.7 % (11.8-14.1); RDW-SD 47.6 fL; WBC 18.81 10^3/uL (4.4-10.8)
[2024-10-05 06:55] LABS: Anion Gap 3.3 mmol/L (3-11); BUN 64 mg/dL (7-18); CO2 33.7 mmol/L (21.0-32.0); CREATININE 1.6 mg/dL (0.70-1.30); Calcium 9.9 mg/dL (8.5-10.1); Chloride 99 mmol/L (98-107); Estimated GFR 46.64 (mL/min/1.73m2); Glucose 133 mg/dL (74-106); Potassium 5.3 mmol/L (3.5-5.1); Sodium 136 mmol/L (136-145)
[2024-10-05 07:15] VITALS: BP 126/77; PULSE 100; RESP 20; TEMP 37; O2SAT 93
[2024-10-05] MEDS: Enoxaparin 30 MG/0.3 ML SYR SC (08:11)
[2024-10-05] MEDS: predniSONE 20 MG TAB 40 MG PO (08:11)
[2024-10-05] MEDS: Acetaminophen 325 MG TAB PO (11:12)
--- NOTE | 2024-10-05 11:17 | PDOC.CMIN ---
Date of service: 10/05/24 Time of Service: 11:17 Care Management Initial Assmt Initial Assessment Reason for Hospitalization: COPD exacerbation Functional Status/Living Situation Patient Presentation: Jimenez was admitted yesterday through the ED with c/o worsening shortness of breath and tachypnea. Jimenez was sitting up in the bed when CM met with him today. He stated that he wanted to go home, that he wished he hadn't come in at all. Jimenez is a palliative care patient, they were notified of his admission and discharge by this RN, as was for a resumption of his services. 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) Instrumental Activities of Daily Living (ADLs): Requires support Medications Medication Management: No Issues/Barriers identified Physical Functioning/Mobility Assistive Device: walker Advance Directives Advance Directives: Do you have an Advance Directive: N 09/09/24 11:28 AD On File at [facility]: N 09/09/24 11:28 Date Asked 10/04/24 10/04/24 09:51 AD Date Reviewed COLST On File at [facility] Yes 09/09/24 11:28 COLST Date Scanned 08/13/24 09/09/24 11:28 Code Status Resuscitation Status DNR/DNI Portal Pt does not currently have a portal and education provided: No Insurance Coverage/Financial Issues Insurance: Medicaid and Medicare Care Team Visit Care Team Role Provider Type LING LEBLANC NP Primary Care Provider NON-[facility] STAFF PHYSICIAN Hill Moreno MD Emergency Provider [facility] STAFF PHYSICIAN Reagan Crowe MD Admit Provider [facility] STAFF PHYSICIAN Attending Provider Discharge Potential Discharge Needs: Other (palliative f/u - likely transition to hospice) Anticipated Barriers to Discharge: None Identified Patient/Family Education Needs: Review discharge instructions, discuss Ask Me Three Transportation: Private vehicle (with Erich) Plan: Jimenez will be discharged today and he will be admitted to hospice tomorrow. Jimenez will transport home in a private vehicle with his roommate and continue per his prescribed plan of care. Social Determinants of Health Screening Will the Patient Participate in the Screening?: Declined to provide Do you worry about having a steady place to live?: no PFSH All Active Problems (Updated 10/04/24 @ 11:55 by Reagan Crowe MD) Palliative care patient (Acute) Chronic hypoxic respiratory failure, on home oxygen therapy (Acute) COPD exacerbation (Acute) Supplemental oxygen dependent (Acute) Cognitive impairment (Acute) Multiple TBIs, EtOH induced dementia Encounter for medical screening examination (Acute) Abnormal finding on diagnostic imaging of testicle (Acute) Foreign body in cecum (Acute) Exercise hypoxemia (Acute) Bladder malignancy (Chronic) locally invasive 8.5 cm mass resected 07/29/2024 [facility] Dr. Frye. Bebeto hydronephrosis (nephrostomy placed at time of surgery) Urothelial cancer (Acute) locally invasive 8.5 cm mass partially resected 07/29/2024 [facility] Dr. Frye. Bebeto hydronephrosis (nephrostomy placed at time of surgery). Positive pelvic lymph nodes. Dr. Santamaria, palliative RT planned Liver mass (Acute) Compression fracture of T4 vertebra (Acute) Pneumonia due to COVID-19 virus (Acute) Nephrostomy present (Acute) Pain (Acute) Multifactorial: From bladder tumor? From nephrostomy tube? Started on opiates July 2024 while at [facility]. [facility] palliative care team will manage Frailty syndrome in geriatric patient (Acute) Financial insecurity (Acute) Advanced care planning/counseling discussion (Acute) Palliative care encounter (Acute) Weight loss (Acute) Chronic fatigue (Acute) Pulmonary cachexia due to chronic obstructive pulmonary disease (Acute) Night sweats (Acute) Unintentional weight loss (Acute) MAKI (acute kidney injury) (Acute) Lumbar transverse process fracture (Acute) Fall (Acute) Pleural nodule (Acute) Ataxia (Acute) Dizziness (Acute) Gait abnormality (Acute) Rib fractures (Acute) Memory loss (Acute) Stroke (Chronic) Post concussion syndrome (Acute) Sacroiliac joint pain (Chronic) COPD (chronic obstructive pulmonary disease) (Chronic) Medical History Pneumonia Arthritis of right acromioclavicular joint (06/19/16) Hx of dizziness H/O: stroke Spine injury Anxiety with depression Bipolar 1 disorder Insomnia H/O onychomycosis Smoker Eczema Allergic rhinitis Alcohol abuse In remission GERD (gastroesophageal reflux disease) Chronic pain HTN (hypertension) COPD (chronic obstructive pulmonary disease) Coronary artery disease HCAP (healthcare-associated pneumonia) Surgical History Nephrostomy status left, 07/30/24 [facility] History of shoulder surgery (06/30/16) H/O cystoscopy H/O transurethral resection of bladder tumor (TURBT) History of coronary artery stent placement History of tonsillectomy Rotator Cuff Repair (06/30/16) RIGHT Family History Other Heart disease Hypertension Social History Smoking/Tobacco Use Status: Current every day Tobacco Type: cigarettes Smoking packs per day: 0.5 Smoking cigarettes per day: 10.0 Smoking risk assessment performed?: Yes Alcohol Intake: current Alcohol Intake frequency: a few times a month Alcohol type: beer Drug use: Occasionally Substance use type: marijuana Details: states drinks a 6 pack of beer over a 1 month time frame Household members: none Housing: house Number of Children: 1 current occupation: Disabled Pets and animals: No What type of physical activity do you participate in: walking Seatbelt use: sometimes Do you feel safe at home: Yes Do you feel safe in your relationship?: Yes Additional Social history: Lives with roommate in [facility] outside of [facility] Readmission Within the Past 30 Days Yes or No: Yes Date of First Admission Date of 1st Admission: 09/08/24 Date of this Admission Date of Admission: 10/04/24 This admission was: Through ED Speicalist Appointments Have you seen any other specialist since your 1st Admission?: Yes Specialist Seen: Palliative Care If the patient had a VNA ordered Did the patient have a VNA order?: Yes Did you call the VNA before you came?: No Did the VNA tell you to come to the hospital?: No Do you know if the VNA called your physician?: No ED visits How many ED visits in the past 12 months: 6 Anticipated HH Services Anticipated HH Services at Discharge [facility] Anticipated Date of Discharge: 10/05/24. Following Provider: Hospice.
--- NOTE | 2024-10-05 11:36 | DSE_ITS ---
Date of service: 10/05/24 Time of Service: 11:36 DS: Diagnosis Discharge Diagnosis (1) COPD exacerbation: Status: Acute (2) Chronic hypoxic respiratory failure, on home oxygen therapy: Status: Acute (3) Bladder malignancy: Status: Chronic (4) Palliative care patient: Status: Acute (5) Cognitive impairment: Status: Acute Discharge Plan Disposition Patient Disposition: Home W/Home Health Services Condition: Good Discharge Details Reason For Visit: Severe Sepsis, COPD Admit Date/Time: 10/04/24 13:14 Admit Provider: Reagan Crowe Attending Provider: Reagan Crowe Primary Care Provider: LING LEBLANC [facility] Course Hospital Course: Patient initially presented with concerns for increased work of breathing that was extremity secondary to an acute exacerbation of COPD. While patient did have a leukocytosis, chest x-ray was clean and patient also did not have any increased oxygen requirement therefore, antibiotics were restarted in the e mergency department were not continued. Despite increasing prednisone patient's leukocytosis improved as did his breathing and combination with increased breathing treatments. Given that the patient is back to his baseline respiratory status and was determined he was stable for discharge home with continuation of home health services. Home Meds and New Rx's Prescriptions: New prednisone 20 mg Tablet 40 mg PO DAILY 7 Days Qty: 14 0RF Continued Oxygen 2 l inhalation .exertion Qty: 1 0RF Rx Instructions: Use 2LPM with exertion escitalopram oxalate 20 mg tablet 20 mg PO DAILY Qty: 1 0RF prednisone 5 mg tablet 5 mg PO DAILY meloxicam 15 mg tablet 15 mg PO DAILY lamotrigine [Lamictal] 100 mg tablet 100 mg PO BID morphine 15 mg tablet 15 mg PO Q6H MDD 4 pills PRN (Reason: pain) Qty: 20 0RF lisinopril 10 mg tablet 10 mg PO DAILY Qty: 90 0RF omeprazole 20 mg capsule,delayed release(DR/EC) 20 mg PO DAILY Qty: 90 0RF Breztri Aerosphere 160-9-4.8 mcg/actuation HFA aerosol inhaler See Rx Instructions .ROUTE .COMPLEX Qty: 32.1 12RF Dose Instruction: INHALE TWO PUFFS BY MOUTH TWICE A DAY Rx Instructions: INHALE TWO PUFFS BY MOUTH TWICE A DAY ipratropium-albuterol 0.5 mg-3 mg(2.5 mg base)/3 mL solution for nebulization See Rx Instructions .ROUTE .COMPLEX Qty: 30 11RF Dose Instruction: USE 1 VIAL IN NEBULIZER DAILY - for rescue Rx Instructions: USE 1 VIAL IN NEBULIZER DAILY - for rescue albuterol sulfate 90 mcg/actuation HFA aerosol inhaler See Rx Instructions .ROUTE .COMPLEX Qty: 8.5 12RF Dose Instruction: INHALE TWO PUFFS BY MOUTH EVERY 6 HOURS NEEDED FOR SHORTNESS OF BREATH OR WHEEZING Rx Instructions: INHALE TWO PUFFS BY MOUTH EVERY 6 HOURS NEEDED FOR SHORTNESS OF BREATH OR WHEEZING morphine concentrate 100 mg/5 mL (20 mg/mL) solution See Rx Instructions PO Q1H PRN MDD 300 mg Qty: 30 0RF Rx Instructions: 0.25-1.0 ml orally every 1 hour, as needed; HOSPICE lorazepam 1 mg tablet 1 mg PO Q4H PRN (Reason: anxiety) Qty: 6 5RF Rx Instructions: hospice quetiapine 100 mg tablet 100 mg PO HS Patient Comments: TAKE ONE TABLET BY MOUTH EVERY EVENING polyethylene glycol 3350 17 gram Powder In Packet 17 g PO BID Qty: 60 0RF sennosides-docusate sodium [Colace 2-In-1] 8.6-50 mg Tablet 1 tab PO BID Qty: 60 0RF acetaminophen 500 mg capsule 1,000 mg PO Q8H PRN (Reason: fever) Qty: 100 2RF Rx Instructions: OK to take with oxycodone 5mg fentanyl 50 mcg/hr patch 72 hour 1 patch transdermal Q72H Patient Comments: PLACE 1 PATCH TRANSDERMALLY EVERY 72 HOURS , MAXIMUM DAILY DOSE = 1 PATCH fentanyl 25 mcg/hr patch 72 hour 1 patch transdermal Q72H Patient Comments: APPLY ONE PATCH TO SKIN EVERY 72 HOURS; MAX DAILY DOSE 1 PATCH docusate sodium 100 mg capsule 100 mg PO BID PRN Patient Comments: TAKE ONE CAPSULE BY MOUTH TWICE A DAY NEEDED FOR CONSTIPATION vitamin B complex [Vitamins B Complex] Tablet 1 tab PO DAILY Patient Comments: TAKE ONE TABLET BY MOUTH EVERY DAY atorvastatin 20 mg Tablet 20 mg PO DAILY bisacodyl 10 mg suppository 10 mg MI DAILY PRNQty: 12 2RF Discharge Instructions Activity:: Activity as Tolerated Equipment/Supplies:: No Equipment Needed Diet:: As Tolerated Discharge Orders Discharge Orders: Discharge Order (Routine); Ordered 10/05/24 Ordered By: Reagan Crowe DS: Summary Time Spent with Patient providing and/or coordinating discharge services: Greater than 30 minutes Status at Discharge Functional status at discharge: independent ambulation Overall status at discharge: patient is back to baseline Mental Status: mental status grossly normal Speech and Movement: speech and movement normal Mood: congruent mood Affect: normal affect Quality:SDOH Health Related Social Needs: No Data to Display Exam Narrative Exam Narrative: Chronically ill, severely cachectic appearing older gentleman laying in bed in m inimal respiratory distress, on baseline 4 L nasal cannula, awake, alert, oriented to person but not place or situation, heart regular rhythm, lungs minimal end expiratory wheezing but otherwise clear to auscultation bilaterally, abdomen is soft, nontender, nondistended Psych Mental Status: mental status grossly normal Speech and Movement: speech and movement normal Mood: congruent mood Affect: normal affect DS: Data Vitals/I&O Vitals and I&O: Vital Signs Temperature 98.6 F 10/05/24 07:15 Temperature Source Temporal Artery Scan 10/05/24 07:15 Pulse 100 H 10/05/24 07:15 Pulse Rhythm Regular 10/04/24 14:53 Pulse 84 10/04/24 11:15 Respiratory Rate 20 10/05/24 07:15 Respiratory Effort Short of Breath 10/04/24 14:53 Respiratory Depth Shallow 10/04/24 14:53 Respiratory Pattern Tachypnea 10/04/24 14:53 Blood Pressure 126/77 10/05/24 07:15 Blood Pressure Mean 79 10/04/24 11:15 Blood Pressure Position Sitting 10/04/24 09:45 Pulse Oximetry 93 10/05/24 07:15 Oxygen Delivery Method Nasal Cannula 10/05/24 07:15 Oxygen Flow Rate 1.5 10/05/24 07:15 Pain Level 8 10/05/24 11:12 Comment Patient complained of abdominal pain, but was unable to describe in any way. Did not observe guarding, writhing, tense posture, grimacing or other nonverbal signs. Did discuss with Dr. Crowe and will continue to monitor. 10/05/24 08:20 Intake & Output 10/04/24 10/05/24 10/05/24 17:59 05:59 17:59 Intake Total 0 110 / 110 Output Total 50 / 50 Balance -50 / -40 110 / 110 Weight 87 lb 1.321 oz Intake: IV 0 10 Oral 110 / 110 Output: Urine 50 / 50 Other: Urine Color Brown Urine Appearance Clear Sediment Comment Patient complained of feeling need to urinate, so this RN assisted the patient in attempting to use urinal. Patient was unable to urinate and a bladder scan was performed, which showed 0. Discussed this with Dr. Crowe. pt urinated into toliet pt voided Data Completed and Pending Labs on day of discharge: Labs from last 24 hours 10/05/24 10/04/24 06:18 11:22 WBC 18.81 H RBC 3.52 L Hgb 10.1 L Hct 31.5 L MCV 90 MCH 28.7 MCHC 32.1 RDW 14.7 H Plt Count 361 MPV 9.8 Sodium 136 Potassium 5.3 H Chloride 99 Carbon Dioxide 33.7 H Anion Gap 3.3 BUN 64 H Creatinine 1.6 H Est GFR (CKD-EPI 2020) 46.64 Glucose 133 H Calcium 9.9 Magnesium 2.0 Urine Color Yellow Urine Clarity Clear Urine pH 7.0 Ur Specific [place] 1.020 Urine Protein >=300 H Urine Ketones Negative Urine Blood Moderate H Urine Nitrite Negative Urine Bilirubin Negative Urine Urobilinogen 1.0 H Ur Leukocyte Esterase Large H Urine RBC Not Applicable Urine WBC >50 H Ur Epithelial Cells Not Applicable Urine Crystals Not Applicable Urine Bacteria Not Applicable Urine Mucus Not Applicable Ur Culture Indicated? C&S Done As Ordered Urine Glucose Negative 10/04/24 13:14 Blood Blood Culture - Pending 10/04/24 12:48 Blood Blood Culture - Pending 10/04/24 11:22 Urine - Left Urostomy Tube Urine Culture - Pending Preliminary micro results at discharge 10/04/24 13:14 Blood Culture - Pending Blood 10/04/24 12:48 Blood Culture - Pending Blood 10/04/24 11:22 Urine Culture - Pending Urine - Left Urostomy Tube PFSH All Active Problems (Updated 10/04/24 @ 11:55 by Reagan Crowe MD) Palliative care patient (Acute) Chronic hypoxic respiratory failure, on home oxygen therapy (Acute) COPD exacerbation (Acute) Supplemental oxygen dependent (Acute) Cognitive impairment (Acute) Multiple TBIs, EtOH induced dementia Encounter for medical screening examination (Acute) Abnormal finding on diagnostic imaging of testicle (Acute) Foreign body in cecum (Acute) Exercise hypoxemia (Acute) Bladder malignancy (Chronic) locally invasive 8.5 cm mass resected 07/29/2024 [facility] [place] [place] Dr. Frye. Bebeto hydronephrosis (nephrostomy placed at time of surgery) Urothelial cancer (Acute) locally invasive 8.5 cm mass partially resected 07/29/2024 [facility] [place] [place] Dr. Frye. Bebeto hydronephrosis (nephrostomy placed at time of surgery). Positive pelvic lymph nodes. Dr. Santamaria, palliative RT planned Liver mass (Acute) Compression fracture of T4 vertebra (Acute) Pneumonia due to COVID-19 virus (Acute) Nephrostomy present (Acute) Pain (Acute) Multifactorial: From bladder tumor? From nephrostomy tube? Started on opiates July 2024 while at [facility] [place] [place]. [facility] palliative care team will manage Frailty syndrome in geriatric patient (Acute) Financial insecurity (Acute) Advanced care planning/counseling discussion (Acute) Palliative care encounter (Acute) Weight loss (Acute) Chronic fatigue (Acute) Pulmonary cachexia due to chronic obstructive pulmonary disease (Acute) Night sweats (Acute) Unintentional weight loss (Acute) MAKI (acute kidney injury) (Acute) Lumbar transverse process fracture (Acute) Fall (Acute) Pleural nodule (Acute) Ataxia (Acute) Dizziness (Acute) Gait abnormality (Acute) Rib fractures (Acute) Memory loss (Acute) Stroke (Chronic) Post concussion syndrome (Acute) Sacroiliac joint pain (Chronic) COPD (chronic obstructive pulmonary disease) (Chronic) Medical History Pneumonia Arthritis of right acromioclavicular joint (06/19/16) Hx of dizziness H/O: stroke Spine injury Anxiety with depression Bipolar 1 disorder Insomnia H/O onychomycosis Smoker Eczema Allergic rhinitis Alcohol abuse In remission GERD (gastroesophageal reflux disease) Chronic pain HTN (hypertension) COPD (chronic obstructive pulmonary disease) Coronary artery disease HCAP (healthcare-associated pneumonia) Surgical History Nephrostomy status left, 07/30/24 History of shoulder surgery (06/30/16) H/O cystoscopy H/O transurethral resection of bladder tumor (TURBT) History of coronary artery stent placement History of tonsillectomy Rotator Cuff Repair (06/30/16) RIGHT Family History Other Heart disease Hypertension Social History Smoking/Tobacco Use Status: Current every day Tobacco Type: cigarettes Smoking packs per day: 0.5 Smoking cigarettes per day: 10.0 Smoking risk assessment performed?: Yes Alcohol Intake: current Alcohol Intake frequency: a few times a month Alcohol type: beer Drug use: Occasionally Substance use type: marijuana Details: states drinks a 6 pack of beer over a 1 month time frame Household members: none Housing: house Number of Children: 1 current occupation: Disabled Pets and animals: No What type of physical activity do you participate in: walking Seatbelt use: sometimes Do you feel safe at home: Yes Do you feel safe in your relationship?: Yes Additional Social history: [facility] roommate [facility] Time Spent with Patient Time Spent with Patient: <45 minutes Time was spent: preparing to see the patient(eg.review tests), obtaining and/or reviewing separately otained hiistory, ordering medications,tests, procedures, referring, communicating with other health child care centre director, indepentently interpreting results, counseling the patient and care coordination
--- NOTE | 2024-10-05 11:44 | PDOC.CMDIS ---
Date of service: 10/05/24 Time of Service: 11:45 LACE Index Scoring Tool Questions: Length of Stay (in days): 1 Was the patient admitted via the E.D.?: Yes Comorbidities: Cerebrovascular Disease, Chronic Pulmonary Disease and Any Tumor E.D. Visits: 6 Answers: Total Score: 13 Risk of Readmission: High Risk Care Management Discharge Plan Reason for Hospitalization: COPD exacerbation Discharge Plan: Jimenez is discharged home today and will be admitted to hospice tomorrow. He will transport home with his caregiver in a private vehicle. Patient/Family Education Needs: Review of discharge instructions, limitations, activity and discuss ask me 3 Services Needed at Discharge: Home Health Care Services (hospice admit tomorrow) SDOH Health Related Social Needs: No Data to Display
[2024-10-05 11:50] VITALS: BP 144/79; PULSE 66; RESP 22; TEMP 36; O2SAT 97
== END 2024-10-05 12:24 | disposition home health service (06) | DRG 191 ==
LOC: ER 11:34 → MS 13:17
PROVIDERS: Admitting Provider Family Medicine; Emergency Provider Emergency Medicine; PCP Nurse Practitioner Family; Visit Provider Family Medicine
DX: J44.1 Chronic obstructive pulmonary disease with (acute) exacerbation (principal); C77.5 Secondary and unspecified malignant neoplasm of intrapelvic lymph nodes; J96.11 Chronic respiratory failure with hypoxia; Z51.5 Encounter for palliative care; Z99.81 Dependence on supplemental oxygen; C67.9 Malignant neoplasm of bladder, unspecified; R41.89 Other symptoms and signs involving cognitive functions and awareness; Z66 Do not resuscitate; Z93.6 Other artificial openings of urinary tract status; R54 Age-related physical debility; E88.A Wasting disease (syndrome) due to underlying condition; I25.10 Atherosclerotic heart disease of native coronary artery without angina pectoris; F41.8 Other specified anxiety disorders; K21.9 Gastro-esophageal reflux disease without esophagitis; G89.29 Other chronic pain; F10.11 Alcohol abuse, in remission; I10 Essential (primary) hypertension; F31.9 Bipolar disorder, unspecified; G47.00 Insomnia, unspecified; Z86.73 Personal history of transient ischemic attack (TIA), and cerebral infarction without residual deficits; Z95.5 Presence of coronary angioplasty implant and graft; F17.210 Nicotine dependence, cigarettes, uncomplicated
CPT/HCPCS: 00123; 36415; 80048; 80053; 82805; 85027; 87040; 87077; 94640; 96365; 99285; 71045; 81003; 81015; 83735; 85025; 87086; 87186; 99223; 99239; J0692; J1650; J7512; J7620